=== PATIENT | female | born 1955 | race Caucasian/White ===

== ENCOUNTER 2017-11-28 10:29 | Outpatient (RCR) | payer OTHER, SELFPAY ==
[2017-11-07 10:36] LABS: Absolute Lymphocyte Count 0.82 X10^3/ul (0.83-4.51); Absolute Neutrophil Count 3.6 X10^3/uL (2.0-7.7); Basophil# 0.03 X10^3/uL; Basophil% 0.6 % (0-1); Eosinophil# 0.09 X10^3/uL; Eosinophils% 1.8 % (0-5); Lymphocyte # 0.82 X10^3/ul (4.0); Lymphocyte % 16.2 % (19-41); Mean Corp Hgb Conc 32.4 g/gl (32-36); Mean Corpuscular Hgb 29.5 pg (27.0-32.0); Mean Corpuscular Volume 91.2 fL (81-99); Mean Platelet Vol. 9.8 fl (6.2-12.0); Monocyte# 0.52 X10^3/uL; Monocyte% 10.3 % (0-10); Neutrophil # 3.59 X10^3/uL (2.7-7.7); Neutrophil % 70.7 % (47-70); Platelet Count 341 K/mm3 (150-450); RBC Distribution Width CV 15.3 % (11.6-14.6); RBC Distribution Width SD 51.1 fl (35.1-43.9); Red Blood Count 3.73 M/mm3 (4.2-5.4); White Blood Count 5.1 K/mm3 (4.4-11.0)
[2017-11-07 10:43] LABS: POSITIVE COUNT NO; POSITIVE DIFFERENTIAL NO; POSITIVE MORPHOLOGY NO
[2017-11-07 11:29] LABS: ALB/GLOB Ratio 0.9 RATIO (0.9-2.4); AST(SGOT) 25 U/L (15-37); Alanine Aminotransfer ALT/SGPT 26 U/L (12-78); Albumin, Serum 3.5 g/dL (3.4-5.0); Alkaline Phosphatase 146 U/L (45-117); Anion Gap 8 (5-15); BUN 19 mg/dL (7-18); BUN/Creat Ratio 23.2 RATIO (10-20); Calcium,Total 8.9 mg/dL (8.5-10.1); Chloride 101 mmol/L (98-107); Creatinine, Serum 0.82 mg/dL (0.55-1.02); EST Glomerular Filtration Rate 75 mL/min (>60); Est Glom Filt Rate - Afr Amer 91 mL/min (>60); Globulin 3.9 g/dL (2.2-4.2); Glucose 77 mg/dL (70-110); Potassium 3.5 mmol/L (3.5-5.1); Protein, Total 7.4 g/dL (6.4-8.2); Sodium Level 139 mmol/L (136-145)
[2017-11-08 11:02] LABS: Cancer Antigen 125 164.1 U/mL (0.0-38.1)
[2017-11-28 10:59] LABS: Differential Indicated MANUAL DIFF; Hematocrit 29.6 % (37-47); Hemoglobin 9.8 g/dl (12.0-15.0); Mean Corp Hgb Conc 33.1 g/gl (32-36); Mean Corpuscular Hgb 29.7 pg (27.0-32.0); Mean Corpuscular Volume 89.7 fL (81-99); Mean Platelet Vol. 10.5 fl (6.2-12.0); POSITIVE COUNT YES; POSITIVE DIFFERENTIAL YES; POSITIVE MORPHOLOGY YES; Platelet Count 72 K/mm3 (150-450); RBC Distribution Width CV 15.2 % (11.6-14.6); RBC Distribution Width SD 49.6 fl (35.1-43.9); White Blood Count 25.9 K/mm3 (4.4-11.0)
[2017-11-28 11:16] LABS: ALB/GLOB Ratio 0.9 RATIO (0.9-2.4); AST(SGOT) 51 U/L (15-37); Alanine Aminotransfer ALT/SGPT 95 U/L (13-56); Albumin, Serum 3.4 g/dL (3.2-5.0); Alkaline Phosphatase 257 U/L (45-117); Anion Gap 7 (5-15); BUN 15 mg/dL (7-18); BUN/Creat Ratio 17.9 RATIO (10-20); Calcium,Total 8.5 mg/dL (8.5-10.1); Chloride 107 mmol/L (98-107); Creatinine, Serum 0.84 mg/dL (0.55-1.02); EST Glomerular Filtration Rate 74 mL/min (>60); Est Glom Filt Rate - Afr Amer 89 mL/min (>60); Globulin 3.8 g/dL (2.2-4.2); Glucose 111 mg/dL (70-110); Protein, Total 7.2 g/dL (6.4-8.2); Sodium Level 140 mmol/L (136-145)
[2017-11-28 11:27] LABS: Eosinophil 1 % (0-5); Lymphocyte 12 % (19-41); Monocyte 4 % (0-10); Neutrophil-Segmented 81 % (47-70); Platelet Estimate MOD DEC (ADEQ); Promyelocyte 2 (0-0); Total Cells Counted 100 (MANUAL DIFF)
[2017-11-28 11:28] LABS: Red Cell Morphology NORM C+C NORMAL (NORM C&C)
[2017-11-28 11:29] LABS: Absolute Lymphocyte Count 3.11 X10^3/ul (0.83-4.51)
[2017-11-29 12:26] LABS: Cancer Antigen 125 92.1 U/mL (0.0-38.1)
[2017-11-29 13:12] LABS: Pathologist Review Reviewed
== END 2017-11-28 10:30 | disposition home or self-care (01) ==
LOC: LAB 10:29
PROVIDERS: Family Provider Family Medicine; PCP Family Medicine; Visit Provider Internal Medicine Hematology & Oncology
DX: C56.1 Malignant neoplasm of right ovary (principal); C56.2 Malignant neoplasm of left ovary
CPT/HCPCS: 36415; 80053; 85025; 86304

== ENCOUNTER → 2017-12-03 12:04 | Outpatient (CLI) | payer OTHER, SELFPAY ==
[2017-12-03 12:38] LABS: Differential Indicated MANUAL DIFF; Hematocrit 28.8 % (37-47); Hemoglobin 9.5 g/dl (12.0-15.0); Mean Corpuscular Hgb 29.8 pg (27.0-32.0); Mean Corpuscular Volume 90.3 fL (81-99); POSITIVE COUNT YES; POSITIVE DIFFERENTIAL NO; POSITIVE MORPHOLOGY YES; Platelet Count 285 K/mm3 (150-450); RBC Distribution Width CV 15.5 % (11.6-14.6); RBC Distribution Width SD 49.6 fl (35.1-43.9); Red Blood Count 3.19 M/mm3 (4.2-5.4); White Blood Count 6.4 K/mm3 (4.4-11.0)
[2017-12-03 13:07] LABS: Neutrophil-Band 14 % (0-5); Neutrophil-Segmented 41 % (47-70); Total Cells Counted 100 (MANUAL DIFF)
[2017-12-03 13:08] LABS: Eosinophil 3 % (0-5); Lymphocyte 36 % (19-41); Metamyelocyte 2 % (0-1); Monocyte 4 % (0-10); Platelet Estimate ADEQUATE (ADEQ)
[2017-12-03 13:09] LABS: Anisocytosis RARE; Atypical Lymphocyte RARE %; Red Cell Morphology N CHROM NORMAL (NORM C&C)
[2017-12-03 13:22] VITALS: BP 147/87; PULSE 94; RESP 16; TEMP 36.4; BMI 32.8
[2017-12-04 01:19] LABS: Absolute Neutrophil Count 3.5 X10^3/uL (2.0-7.7); Neutrophil # 3.52 X10^3/uL (2.7-7.7)
[2017-12-04 14:50] LABS: Pathologist Review Reviewed
== END ==
PROVIDERS: Family Provider Family Medicine; PCP Family Medicine; Visit Provider Internal Medicine Hematology & Oncology
DX: Z51.11 Encounter for antineoplastic chemotherapy (principal); C56.1 Malignant neoplasm of right ovary; C56.2 Malignant neoplasm of left ovary
CPT/HCPCS: 85025; 96367; 96413; J7050; A4216; J2405; J3490; J9351

== ENCOUNTER → 2017-12-04 12:27 | Outpatient (CLI) | payer OTHER, SELFPAY ==
[2017-12-03 13:22] VITALS: BP 147/87; BMI 32.8
[2017-12-04 12:45] VITALS: BP 125/79; PULSE 90; RESP 18; TEMP 35.8; O2SAT 97; BMI 32.3
== END ==
PROVIDERS: Family Provider Family Medicine; PCP Family Medicine; Visit Provider Internal Medicine Hematology & Oncology
DX: Z51.11 Encounter for antineoplastic chemotherapy (principal); C56.1 Malignant neoplasm of right ovary; C56.2 Malignant neoplasm of left ovary
CPT/HCPCS: 96367; 96413; A4216; J2405; J3490; J9351

== ENCOUNTER → 2017-12-05 12:56 | Outpatient (CLI) | payer OTHER, SELFPAY ==
[2017-12-04 12:45] VITALS: BP 125/79; BMI 32.3
[2017-12-05 13:34] VITALS: BP 146/79; PULSE 84; RESP 16; TEMP 36.3; O2SAT 99; BMI 32.3
== END ==
PROVIDERS: Family Provider Family Medicine; PCP Family Medicine; Visit Provider Internal Medicine Hematology & Oncology
DX: Z51.11 Encounter for antineoplastic chemotherapy (principal); C56.1 Malignant neoplasm of right ovary; C56.2 Malignant neoplasm of left ovary
CPT/HCPCS: 96367; 96413; A4216; J2405; J3490; J9351

== ENCOUNTER → 2017-12-06 13:19 | Outpatient (CLI) | payer OTHER, SELFPAY ==
[2017-12-05 13:34] VITALS: BP 146/79; BMI 32.3
[2017-12-06 13:53] VITALS: BP 115/71; PULSE 97; RESP 18; TEMP 36.1; O2SAT 98
[2017-12-06 14:03] LABS: Hematocrit 28.5 % (37-47); Hemoglobin 9.6 g/dl (12.0-15.0); Mean Corp Hgb Conc 33.7 g/gl (32-36); Mean Corpuscular Hgb 30.6 pg (27.0-32.0); Mean Corpuscular Volume 90.8 fL (81-99); Mean Platelet Vol. 9.6 fl (6.2-12.0); Platelet Count 440 K/mm3 (150-450); RBC Distribution Width CV 15.2 % (11.6-14.6); RBC Distribution Width SD 48.2 fl (35.1-43.9); Red Blood Count 3.14 M/mm3 (4.2-5.4); Scan Indicated on CBC? Y/N NO; White Blood Count 3.4 K/mm3 (4.4-11.0)
--- NOTE | 2017-12-06 15:50 | CT_ITS ---
STUDY: CTA CHEST REASON FOR EXAM: Female, 62 years old. Increasing shortness of breath. RADIATION DOSAGE (If Supplied By Facility): CTDIvol = ( 18.58 ) mGy, DLP = ( 504.8 ) mGycm TECHNIQUE: The examination was performed with the intravenous administration of 100 ml of Isovue 370 contrast material. Post-processing of the angiographic images was performed, with multiplanar reformation and 3D reconstruction. Individualized dose optimization techniques were used for this CT. COMPARISON: November 06, 2017. FINDINGS: Normal enhancement of the main pulmonary artery and right and left pulmonary arteries. Normal enhancement of the bilateral peripheral pulmonary arteries. There is no demonstrated pulmonary embolism. There is atherosclerotic calcification of the aortic arch . There is no demonstrated aortic dissection. There are calcifications of the coronary arteries. Normal mediastinum. Normal hilar regions. Normal visualized trachea and bronchi. The lungs are well expanded. Normal pulmonary parenchyma. Normal pleura. There is a stable peripherally calcified low-attenuation focus within the medial right breast. There is a left-sided portacatheter with its tip within the superior vena cava. There are degenerative changes of thoracic spine. Normal visualized upper abdomen. CT/CTA Chest W/WO Contrast IMPRESSION: No demonstrated pulmonary embolism or arterial dissection. Atherosclerosis. Electronically Signed: Maura Ordaz MD at 16:35 EST Tel , Service support ,
== END ==
PROVIDERS: Family Provider Family Medicine; PCP Family Medicine; Visit Provider Internal Medicine Hematology & Oncology
DX: Z51.11 Encounter for antineoplastic chemotherapy (principal); C56.1 Malignant neoplasm of right ovary; R06.00 Dyspnea, unspecified; R06.89 Other abnormalities of breathing
CPT/HCPCS: 36591; 71275; 85027; 96367; 96413; J7050; Q9967; A4216; J2405; J3490; J9351

== ENCOUNTER → 2017-12-07 13:29 | Outpatient (CLI) | payer OTHER, SELFPAY ==
[2017-12-05 13:34] VITALS: BMI 32.3
[2017-12-06 13:53] VITALS: BP 115/71
[2017-12-07 14:08] VITALS: BP 107/71; PULSE 96; RESP 16; TEMP 35.9; O2SAT 96; BMI 32.3
== END ==
PROVIDERS: Family Provider Family Medicine; PCP Family Medicine; Visit Provider Internal Medicine Hematology & Oncology
DX: Z51.11 Encounter for antineoplastic chemotherapy (principal); C56.1 Malignant neoplasm of right ovary; C56.2 Malignant neoplasm of left ovary
CPT/HCPCS: 96367; 96413; J7050; A4216; J2405; J3490; J9351

== ENCOUNTER 2017-12-19 10:47 | Outpatient (RCR) | payer OTHER, SELFPAY ==
[2017-12-13 12:37] LABS: Absolute Lymphocyte Count 1.23 X10^3/ul (0.83-4.51); Absolute Neutrophil Count 2.8 X10^3/uL (2.0-7.7); Basophil# 0.01 X10^3/uL; Basophil% 0.2 % (0-1); Eosinophil# 0.01 X10^3/uL; Eosinophils% 0.2 % (0-5); Hematocrit 25.5 % (37-47); Hemoglobin 8.5 g/dl (12.0-15.0); Lymphocyte # 1.23 X10^3/ul (4.0); Lymphocyte % 27.7 % (19-41); Mean Corp Hgb Conc 33.3 g/gl (32-36); Mean Corpuscular Hgb 30.7 pg (27.0-32.0); Mean Corpuscular Volume 92.1 fL (81-99); Mean Platelet Vol. 10.9 fl (6.2-12.0); Monocyte# 0.36 X10^3/uL; Monocyte% 8.1 % (0-10); Neutrophil # 2.82 X10^3/uL (2.7-7.7); Neutrophil % 63.6 % (47-70); Platelet Count 143 K/mm3 (150-450); RBC Distribution Width CV 14.9 % (11.6-14.6); RBC Distribution Width SD 48.2 fl (35.1-43.9); Red Blood Count 2.77 M/mm3 (4.2-5.4); White Blood Count 4.4 K/mm3 (4.4-11.0)
[2017-12-13 12:58] LABS: Atypical Lymphocyte RARE %; Differential Indicated SCAN CRITERIA MET; Hypochromasia 1+; POSITIVE COUNT NO; POSITIVE DIFFERENTIAL NO; POSITIVE MORPHOLOGY YES; Platelet Estimate ADEQUATE (ADEQ); Platelet Morphology LARGE
[2017-12-19 11:12] LABS: Hematocrit 24.6 % (37-47); Hemoglobin 8.2 g/dl (12.0-15.0); Mean Corp Hgb Conc 33.3 g/gl (32-36); Mean Corpuscular Hgb 30.8 pg (27.0-32.0); Mean Corpuscular Volume 92.5 fL (81-99); Mean Platelet Vol. 9.3 fl (6.2-12.0); Platelet Count 121 K/mm3 (150-450); RBC Distribution Width CV 17.2 % (11.6-14.6); RBC Distribution Width SD 55.5 fl (35.1-43.9); Red Blood Count 2.66 M/mm3 (4.2-5.4); White Blood Count 79.4 K/mm3 (4.4-11.0)
[2017-12-19 11:13] LABS: Absolute Nucleated RBC Count 0.21 10^3/uL (0-5); NRBC Flagged by Analyzer 0.3 % (0-5)
[2017-12-19 11:16] LABS: Differential Indicated MANUAL DIFF; POSITIVE COUNT YES; POSITIVE DIFFERENTIAL YES; POSITIVE MORPHOLOGY YES
[2017-12-19 11:20] LABS: ALB/GLOB Ratio 0.9 RATIO (0.9-2.4); AST(SGOT) 20 U/L (15-37); Alanine Aminotransfer ALT/SGPT 36 U/L (13-56); Albumin, Serum 3.5 g/dL (3.2-5.0); Alkaline Phosphatase 286 U/L (45-117); Anion Gap 10 (5-15); BUN 15 mg/dL (7-18); Calcium,Total 8.7 mg/dL (8.5-10.1); Chloride 105 mmol/L (98-107); Creatinine, Serum 0.88 mg/dL (0.55-1.02); EST Glomerular Filtration Rate 69 mL/min (>60); Est Glom Filt Rate - Afr Amer 84 mL/min (>60); Glucose 154 mg/dL (74-106); Potassium 3.7 mmol/L (3.5-5.1); Protein, Total 7.5 g/dL (6.4-8.2); Sodium Level 141 mmol/L (136-145)
[2017-12-19 11:37] LABS: Eosinophil 1 % (0-5); Lymphocyte 2 % (19-41); Metamyelocyte 2 % (0-1); Monocyte 3 % (0-10); Myelocyte 3 (0-0); Neutrophil-Band 1 % (0-5); Neutrophil-Segmented 88 % (47-70); Total Cells Counted 100 (MANUAL DIFF)
[2017-12-19 11:38] LABS: Hypochromasia 2+; Platelet Estimate ADEQUATE (ADEQ); Toxic Granulation 1+
[2017-12-19 11:41] LABS: Absolute Lymphocyte Count 1.58 X10^3/ul (0.83-4.51); Absolute Neutrophil Count 70.7 X10^3/uL (2.0-7.7)
[2017-12-20 12:45] LABS: Pathologist Review Reviewed
[2017-12-20 17:04] LABS: Cancer Antigen 125 34.6 U/mL (0.0-38.1)
== END 2017-12-19 11:15 | disposition home or self-care (01) ==
LOC: LAB 10:47
PROVIDERS: Family Provider Family Medicine; PCP Family Medicine; Visit Provider Internal Medicine Hematology & Oncology
DX: C56.1 Malignant neoplasm of right ovary (principal); C56.2 Malignant neoplasm of left ovary
CPT/HCPCS: 36415; 80053; 85025; 86304

== ENCOUNTER → 2017-12-24 12:47 | Outpatient (CLI) | payer OTHER, SELFPAY ==
[2017-12-24 13:17] LABS: Hematocrit 24.5 % (37-47); Hemoglobin 8.1 g/dl (12.0-15.0); Mean Corp Hgb Conc 33.1 g/gl (32-36); Mean Corpuscular Hgb 31.6 pg (27.0-32.0); Mean Corpuscular Volume 95.7 fL (81-99); Mean Platelet Vol. 9.4 fl (6.2-12.0); Platelet Count 397 K/mm3 (150-450); RBC Distribution Width CV 18.2 % (11.6-14.6); RBC Distribution Width SD 55.6 fl (35.1-43.9); Red Blood Count 2.56 M/mm3 (4.2-5.4); White Blood Count 8.5 K/mm3 (4.4-11.0)
[2017-12-24 13:19] VITALS: BP 132/74; PULSE 91; RESP 18; TEMP 36.1; O2SAT 97; BMI 32.4
[2017-12-24 13:19] LABS: Differential Indicated MANUAL DIFF; POSITIVE COUNT YES; POSITIVE DIFFERENTIAL NO; POSITIVE MORPHOLOGY YES
[2017-12-24 13:42] LABS: Eosinophil 2 % (0-5); Lymphocyte 11 % (19-41); Metamyelocyte 2 % (0-1); Monocyte 10 % (0-10); Myelocyte 2 (0-0); Neutrophil-Band 3 % (0-5); Neutrophil-Segmented 69 % (47-70); Promyelocyte 1 (0-0); Total Cells Counted 100 (MANUAL DIFF)
[2017-12-24 13:43] LABS: Hypochromasia 1+; Platelet Estimate ADEQUATE (ADEQ)
[2017-12-24 13:44] LABS: Absolute Lymphocyte Count 0.93 X10^3/ul (0.83-4.51); Absolute Neutrophil Count 6.1 X10^3/uL (2.0-7.7)
[2017-12-26 15:02] LABS: Pathologist Review Reviewed
== END ==
PROVIDERS: Family Provider Family Medicine; PCP Family Medicine; Visit Provider Internal Medicine Hematology & Oncology
DX: Z51.11 Encounter for antineoplastic chemotherapy (principal); C56.1 Malignant neoplasm of right ovary; C56.2 Malignant neoplasm of left ovary
CPT/HCPCS: 36591; 85025; 96367; 96413; J7040; A4216; J2405; J3490; J9351

== ENCOUNTER → 2017-12-25 13:03 | Outpatient (CLI) | payer OTHER, SELFPAY ==
[2017-12-25 13:33] VITALS: BP 135/76; PULSE 100; RESP 16; TEMP 36.4; O2SAT 98; BMI 32.4
== END ==
PROVIDERS: Family Provider Family Medicine; PCP Family Medicine; Visit Provider Internal Medicine Hematology & Oncology
DX: Z51.11 Encounter for antineoplastic chemotherapy (principal); C56.1 Malignant neoplasm of right ovary; C56.2 Malignant neoplasm of left ovary
CPT/HCPCS: 96367; 96413; J7050; A4216; J2405; J3490; J9351

== ENCOUNTER → 2017-12-26 12:57 | Outpatient (CLI) | payer OTHER, SELFPAY ==
[2017-12-26 13:18] VITALS: BP 130/77; PULSE 89; RESP 16; TEMP 36.6; O2SAT 99; BMI 32.1
== END ==
PROVIDERS: Family Provider Family Medicine; PCP Family Medicine; Visit Provider Internal Medicine Hematology & Oncology
DX: Z51.11 Encounter for antineoplastic chemotherapy (principal); C56.1 Malignant neoplasm of right ovary; C56.2 Malignant neoplasm of left ovary
CPT/HCPCS: 96367; 96413; J7050; A4216; J2405; J3490; J9351

== ENCOUNTER → 2017-12-27 12:56 | Outpatient (CLI) | payer OTHER, SELFPAY ==
[2017-12-27 13:12] VITALS: BP 111/67; PULSE 98; RESP 18; TEMP 35.7; O2SAT 99; BMI 32.1
== END ==
PROVIDERS: Family Provider Family Medicine; PCP Family Medicine; Visit Provider Internal Medicine Hematology & Oncology
DX: Z51.11 Encounter for antineoplastic chemotherapy (principal); C56.1 Malignant neoplasm of right ovary; C56.2 Malignant neoplasm of left ovary
CPT/HCPCS: 96367; 96413; J7050; A4216; J2405; J3490; J9351

== ENCOUNTER → 2017-12-28 12:43 | Outpatient (CLI) | payer OTHER, SELFPAY ==
[2017-12-28 13:12] VITALS: BP 120/67; PULSE 102; RESP 18; TEMP 36.5; O2SAT 100; BMI 33.5
== END ==
PROVIDERS: Family Provider Family Medicine; PCP Family Medicine; Visit Provider Internal Medicine Hematology & Oncology
DX: Z51.11 Encounter for antineoplastic chemotherapy (principal); C56.1 Malignant neoplasm of right ovary; C56.2 Malignant neoplasm of left ovary
CPT/HCPCS: 96367; 96413; J7050; A4216; J2405; J3490; J9351

== ENCOUNTER → 2018-01-03 09:43 | Outpatient (CLI) | payer OTHER, SELFPAY ==
[2018-01-03] VITALS (7 sets, daily range): BP systolic 108–138; BP diastolic 60–81; PULSE 87–99; RESP 16–18; TEMP 35.8–37.1; O2SAT 99–100
== END ==
PROVIDERS: Family Provider Family Medicine; PCP Family Medicine; Visit Provider Internal Medicine Hematology & Oncology
DX: D64.9 Anemia, unspecified (principal)
CPT/HCPCS: 36430; 86850; 86900; 86920; 86922; J7040; P9016; A4216

== ENCOUNTER 2018-01-09 10:05 | Outpatient (RCR) | payer OTHER, SELFPAY ==
[2018-01-02 11:39] LABS: Absolute Lymphocyte Count 0.72 X10^3/ul (0.83-4.51); Absolute Neutrophil Count 0.8 X10^3/uL (2.0-7.7); Hematocrit 20.4 % (37-47); Hemoglobin 6.9 g/dl (12.0-15.0); Lymphocyte # 0.72 X10^3/ul (4.0); Lymphocyte % 41.6 % (19-41); Mean Corp Hgb Conc 33.8 g/gl (32-36); Mean Corpuscular Hgb 31.2 pg (27.0-32.0); Mean Corpuscular Volume 92.3 fL (81-99); Mean Platelet Vol. 8.9 fl (6.2-12.0); Monocyte# 0.18 X10^3/uL; Monocyte% 10.4 % (0-10); Neutrophil # 0.81 X10^3/uL (2.7-7.7); Neutrophil % 46.8 % (47-70); Platelet Count 127 K/mm3 (150-450); RBC Distribution Width CV 17.6 % (11.6-14.6); RBC Distribution Width SD 59.8 fl (35.1-43.9); Red Blood Count 2.21 M/mm3 (4.2-5.4); White Blood Count 1.7 K/mm3 (4.4-11.0)
[2018-01-02 11:40] LABS: Differential Indicated SCAN CRITERIA MET; POSITIVE COUNT NO; POSITIVE DIFFERENTIAL YES; POSITIVE MORPHOLOGY NO
[2018-01-02 11:54] LABS: Anisocytosis 1+; Hypochromasia 1+; Platelet Estimate ADEQUATE (ADEQ)
[2018-01-02 11:55] LABS: Microcytosis RARE
[2018-01-09 10:22] LABS: Hematocrit 29.3 % (37-47); Hemoglobin 9.5 g/dl (12.0-15.0); Mean Corp Hgb Conc 32.4 g/gl (32-36); Mean Corpuscular Hgb 30.5 pg (27.0-32.0); Mean Corpuscular Volume 94.2 fL (81-99); Mean Platelet Vol. 9.8 fl (6.2-12.0); Platelet Count 86 K/mm3 (150-450); RBC Distribution Width CV 18.8 % (11.6-14.6); RBC Distribution Width SD 61.1 fl (35.1-43.9); Red Blood Count 3.11 M/mm3 (4.2-5.4)
[2018-01-09 10:28] LABS: Differential Indicated MANUAL DIFF; POSITIVE COUNT YES; POSITIVE DIFFERENTIAL YES; POSITIVE MORPHOLOGY YES; White Blood Count 34.6 K/mm3 (4.4-11.0)
[2018-01-09 10:38] LABS: ALB/GLOB Ratio 0.9 RATIO (0.9-2.4); AST(SGOT) 28 U/L (15-37); Alanine Aminotransfer ALT/SGPT 54 U/L (13-56); Albumin, Serum 3.6 g/dL (3.2-5.0); Alkaline Phosphatase 265 U/L (45-117); Anion Gap 6 (5-15); BUN 18 mg/dL (7-18); BUN/Creat Ratio 17.6 RATIO (10-20); Calcium,Total 8.6 mg/dL (8.5-10.1); Chloride 103 mmol/L (98-107); Creatinine, Serum 1.02 mg/dL (0.55-1.02); EST Glomerular Filtration Rate 59 mL/min (>60); Est Glom Filt Rate - Afr Amer 71 mL/min (>60); Globulin 3.8 g/dL (2.2-4.2); Glucose 109 mg/dL (74-106); Potassium 3.7 mmol/L (3.5-5.1); Protein, Total 7.4 g/dL (6.4-8.2); Sodium Level 141 mmol/L (136-145)
[2018-01-09 10:48] LABS: Lymphocyte 8 % (19-41); Metamyelocyte 4 % (0-1); Monocyte 5 % (0-10); Myelocyte 1 (0-0); Neutrophil-Band 1 % (0-5); Neutrophil-Segmented 80 % (47-70); Promyelocyte 1 (0-0); Total Cells Counted 100 (MANUAL DIFF)
[2018-01-09 10:50] LABS: Anisocytosis RARE; Hypochromasia 1+; Platelet Estimate MOD DEC (ADEQ); Polychromasia RARE
[2018-01-09 10:51] LABS: Absolute Lymphocyte Count 2.77 X10^3/ul (0.83-4.51)
[2018-01-10 12:09] LABS: Cancer Antigen 125 25.2 U/mL (0.0-38.1)
[2018-01-10 14:54] LABS: Pathologist Review Reviewed
== END 2018-01-09 11:00 | disposition home or self-care (01) ==
LOC: LAB 10:05
PROVIDERS: Family Provider Family Medicine; PCP Family Medicine; Visit Provider Internal Medicine Hematology & Oncology
DX: C56.1 Malignant neoplasm of right ovary (principal); C56.2 Malignant neoplasm of left ovary; D64.9 Anemia, unspecified
CPT/HCPCS: 36415; 80053; 85025; 86304

== ENCOUNTER → 2018-01-14 11:29 | Outpatient (CLI) | payer OTHER, SELFPAY ==
[2018-01-14 11:46] VITALS: BP 134/75; PULSE 90; RESP 18; TEMP 36.6; O2SAT 98; BMI 32.7
[2018-01-14 11:50] LABS: Absolute Lymphocyte Count 1.47 X10^3/ul (0.83-4.51); Absolute Neutrophil Count 1.9 X10^3/uL (2.0-7.7); Basophil# 0.02 X10^3/uL; Basophil% 0.5 % (0-1); Eosinophil# 0.09 X10^3/uL; Eosinophils% 2.4 % (0-5); Hematocrit 29.6 % (37-47); Hemoglobin 9.6 g/dl (12.0-15.0); Lymphocyte # 1.47 X10^3/ul (4.0); Lymphocyte % 38.7 % (19-41); Mean Corp Hgb Conc 32.4 g/gl (32-36); Mean Corpuscular Hgb 30.7 pg (27.0-32.0); Mean Corpuscular Volume 94.6 fL (81-99); Mean Platelet Vol. 9.5 fl (6.2-12.0); Monocyte# 0.32 X10^3/uL; Monocyte% 8.4 % (0-10); Neutrophil # 1.87 X10^3/uL (2.7-7.7); Neutrophil % 49.2 % (47-70); Platelet Count 353 K/mm3 (150-450); RBC Distribution Width CV 18.3 % (11.6-14.6); RBC Distribution Width SD 61.8 fl (35.1-43.9); Red Blood Count 3.13 M/mm3 (4.2-5.4); White Blood Count 3.8 K/mm3 (4.4-11.0)
[2018-01-14 11:51] LABS: POSITIVE COUNT NO; POSITIVE DIFFERENTIAL NO; POSITIVE MORPHOLOGY NO
== END ==
PROVIDERS: Family Provider Family Medicine; PCP Family Medicine; Visit Provider Internal Medicine Hematology & Oncology
DX: Z51.11 Encounter for antineoplastic chemotherapy (principal); C56.1 Malignant neoplasm of right ovary; C56.2 Malignant neoplasm of left ovary
CPT/HCPCS: 85025; 96367; 96413; J7040; A4216; J2405; J3490; J9351

== ENCOUNTER → 2018-01-15 13:14 | Outpatient (CLI) | payer OTHER, SELFPAY ==
[2018-01-15 13:30] VITALS: BP 129/74; PULSE 87; RESP 16; TEMP 36.4; O2SAT 100
== END ==
PROVIDERS: Family Provider Family Medicine; PCP Family Medicine; Visit Provider Internal Medicine Hematology & Oncology
DX: Z51.11 Encounter for antineoplastic chemotherapy (principal); C56.1 Malignant neoplasm of right ovary; C56.2 Malignant neoplasm of left ovary
CPT/HCPCS: 96367; 96413; J7050; A4216; J2405; J3490; J9351

== ENCOUNTER → 2018-01-16 12:57 | Outpatient (CLI) | payer OTHER, SELFPAY ==
[2018-01-16 13:18] VITALS: BP 115/65; PULSE 91; RESP 18; TEMP 36.2; O2SAT 98
== END ==
PROVIDERS: Family Provider Family Medicine; PCP Family Medicine; Visit Provider Internal Medicine Hematology & Oncology
DX: Z51.11 Encounter for antineoplastic chemotherapy (principal); C56.1 Malignant neoplasm of right ovary; C56.2 Malignant neoplasm of left ovary
CPT/HCPCS: 96367; 96413; J7050; A4216; J2405; J3490; J9351

== ENCOUNTER → 2018-01-17 13:15 | Outpatient (CLI) | payer OTHER, SELFPAY ==
[2018-01-17 13:25] VITALS: BP 122/74; PULSE 87; RESP 18; TEMP 36.4; O2SAT 97; BMI 32.5
== END ==
PROVIDERS: Family Provider Family Medicine; PCP Family Medicine; Visit Provider Internal Medicine Hematology & Oncology
DX: Z51.11 Encounter for antineoplastic chemotherapy (principal); C56.1 Malignant neoplasm of right ovary; C56.2 Malignant neoplasm of left ovary
CPT/HCPCS: 96367; 96413; J7050; A4216; J2405; J3490; J9351

== ENCOUNTER → 2018-01-18 12:54 | Outpatient (CLI) | payer OTHER, SELFPAY ==
[2018-01-18 13:14] VITALS: BP 99/63; PULSE 93; RESP 16; TEMP 36.5; O2SAT 99; BMI 33.5
== END ==
PROVIDERS: Family Provider Family Medicine; PCP Family Medicine; Visit Provider Internal Medicine Hematology & Oncology
DX: Z51.11 Encounter for antineoplastic chemotherapy (principal); C56.1 Malignant neoplasm of right ovary; C56.2 Malignant neoplasm of left ovary
CPT/HCPCS: 96376; 96413; J7050; A4216; J2405; J3490; J9351

== ENCOUNTER → 2018-02-04 13:27 | Outpatient (CLI) | payer OTHER, SELFPAY ==
[2018-02-04 13:50] VITALS: BP 149/91; PULSE 95; RESP 20; TEMP 35.6; O2SAT 100; BMI 32.3
[2018-02-04 13:59] LABS: Hematocrit 26.6 % (37-47); Hemoglobin 8.6 g/dl (12.0-15.0); Mean Corp Hgb Conc 32.3 g/gl (32-36); Mean Corpuscular Hgb 31.6 pg (27.0-32.0); Mean Corpuscular Volume 97.8 fL (81-99); Mean Platelet Vol. 9.4 fl (6.2-12.0); Platelet Count 510 K/mm3 (150-450); RBC Distribution Width CV 18.7 % (11.6-14.6); RBC Distribution Width SD 63.8 fl (35.1-43.9); Red Blood Count 2.72 M/mm3 (4.2-5.4); White Blood Count 4.1 K/mm3 (4.4-11.0)
[2018-02-04 14:00] LABS: Scan Indicated on CBC? Y/N NO
== END ==
PROVIDERS: Family Provider Family Medicine; PCP Family Medicine; Visit Provider Internal Medicine Hematology & Oncology
DX: Z51.11 Encounter for antineoplastic chemotherapy (principal); C56.9 Malignant neoplasm of unspecified ovary
CPT/HCPCS: 85027; 96367; 96413; J7050; A4216; J2405; J3490; J9351

== ENCOUNTER → 2018-02-05 13:29 | Outpatient (CLI) | payer OTHER, SELFPAY ==
[2018-02-05 13:33] VITALS: BP 131/62; PULSE 95; RESP 16; TEMP 36.4; O2SAT 100; BMI 327.9
== END ==
PROVIDERS: Family Provider Family Medicine; PCP Family Medicine; Visit Provider Internal Medicine Hematology & Oncology
DX: C56.9 Malignant neoplasm of unspecified ovary (principal)
CPT/HCPCS: 96365; 96367; J7050; A4216; J2405; J3490; J9351

== ENCOUNTER → 2018-02-06 13:16 | Outpatient (CLI) | payer OTHER, SELFPAY ==
[2018-02-06 13:45] VITALS: BP 121/67; PULSE 84; RESP 16; TEMP 36.4; O2SAT 98; BMI 32.8
== END ==
PROVIDERS: Family Provider Family Medicine; PCP Family Medicine; Visit Provider Internal Medicine Hematology & Oncology
DX: Z51.11 Encounter for antineoplastic chemotherapy (principal); C56.9 Malignant neoplasm of unspecified ovary
CPT/HCPCS: 96367; 96413; J7050; A4216; J2405; J3490; J9351

== ENCOUNTER → 2018-02-07 13:26 | Outpatient (CLI) | payer OTHER, SELFPAY ==
[2018-02-07 13:48] VITALS: BP 119/67; PULSE 100; RESP 16; TEMP 36.9; O2SAT 100; BMI 32.3
== END ==
PROVIDERS: Family Provider Family Medicine; PCP Family Medicine; Visit Provider Internal Medicine Hematology & Oncology
DX: Z51.11 Encounter for antineoplastic chemotherapy (principal); C56.9 Malignant neoplasm of unspecified ovary
CPT/HCPCS: 96375; 96413; J7050; A4216; J2405; J3490; J9351

== ENCOUNTER → 2018-02-08 11:45 | Outpatient (CLI) | payer OTHER, SELFPAY ==
[2018-02-08 11:51] VITALS: BP 114/77; PULSE 99; RESP 18; TEMP 35.9; O2SAT 99; BMI 31.8
== END ==
PROVIDERS: Family Provider Family Medicine; PCP Family Medicine; Visit Provider Internal Medicine Hematology & Oncology
DX: Z51.11 Encounter for antineoplastic chemotherapy (principal); C56.9 Malignant neoplasm of unspecified ovary
CPT/HCPCS: 96367; 96413; J7050; A4216; J2405; J3490; J9351

== ENCOUNTER 2018-02-11 11:50 | Outpatient (RCR) | payer OTHER, SELFPAY ==
[2018-01-30 13:01] LABS: Hematocrit 25.3 % (37-47); Hemoglobin 8.4 g/dl (12.0-15.0); Mean Corp Hgb Conc 33.2 g/gl (32-36); Mean Corpuscular Hgb 31.6 pg (27.0-32.0); Mean Corpuscular Volume 95.1 fL (81-99); Mean Platelet Vol. 9.7 fl (6.2-12.0); Platelet Count 95 K/mm3 (150-450); RBC Distribution Width CV 17.4 % (11.6-14.6); RBC Distribution Width SD 57.2 fl (35.1-43.9); Red Blood Count 2.66 M/mm3 (4.2-5.4); White Blood Count 3.5 K/mm3 (4.4-11.0)
[2018-01-30 13:02] LABS: Differential Indicated MANUAL DIFF; POSITIVE COUNT YES; POSITIVE DIFFERENTIAL NO; POSITIVE MORPHOLOGY YES
[2018-01-30 13:30] LABS: AST(SGOT) 16 U/L (15-37); Alanine Aminotransfer ALT/SGPT 35 U/L (13-56); Albumin, Serum 3.8 g/dL (3.2-5.0); Alkaline Phosphatase 151 U/L (45-117); Anion Gap 7 (5-15); BUN 15 mg/dL (7-18); BUN/Creat Ratio 19.7 RATIO (10-20); Calcium,Total 8.6 mg/dL (8.5-10.1); Chloride 108 mmol/L (98-107); Creatinine, Serum 0.76 mg/dL (0.55-1.02); EST Glomerular Filtration Rate 82 mL/min (>60); Est Glom Filt Rate - Afr Amer 99 mL/min (>60); Globulin 3.8 g/dL (2.2-4.2); Glucose 93 mg/dL (74-106); Potassium 3.6 mmol/L (3.5-5.1); Protein, Total 7.6 g/dL (6.4-8.2); Sodium Level 142 mmol/L (136-145)
[2018-01-30 13:32] LABS: Blast 1 % (0-0); Eosinophil 2 % (0-5); Lymphocyte 28 % (19-41); Metamyelocyte 2 % (0-1); Monocyte 6 % (0-10); Neutrophil-Band 1 % (0-5); Neutrophil-Segmented 60 % (47-70); Nucleated Red Bld Cells,Manual 1 % (0-5); Total Cells Counted 100 (MANUAL DIFF)
[2018-01-30 13:33] LABS: Hypochromasia 2+; Platelet Estimate MOD DEC (ADEQ); Polychromasia 1+
[2018-01-30 13:34] LABS: Absolute Lymphocyte Count 0.97 X10^3/ul (0.83-4.51)
[2018-01-30 13:35] LABS: Absolute Neutrophil Count 2.1 X10^3/uL (2.0-7.7)
[2018-01-31 11:46] LABS: Pathologist Review Reviewed
[2018-02-11 12:32] LABS: Hematocrit 24.7 % (37-47); Hemoglobin 8.1 g/dl (12.0-15.0); Mean Corp Hgb Conc 32.8 g/gl (32-36); Mean Corpuscular Hgb 32.4 pg (27.0-32.0); Mean Corpuscular Volume 98.8 fL (81-99); Mean Platelet Vol. 9.5 fl (6.2-12.0); Platelet Count 441 K/mm3 (150-450); RBC Distribution Width CV 16.8 % (11.6-14.6); RBC Distribution Width SD 57.9 fl (35.1-43.9); White Blood Count 4.4 K/mm3 (4.4-11.0)
[2018-02-11 12:33] LABS: Differential Indicated MANUAL DIFF; POSITIVE COUNT YES; POSITIVE DIFFERENTIAL NO; POSITIVE MORPHOLOGY YES
[2018-02-11 12:54] LABS: Eosinophil 1 % (0-5); Lymphocyte 23 % (19-41); Monocyte 4 % (0-10); Neutrophil-Band 1 % (0-5); Neutrophil-Segmented 71 % (47-70); Total Cells Counted 100 (MANUAL DIFF)
[2018-02-11 12:59] LABS: Absolute Lymphocyte Count 1.01 X10^3/ul (0.83-4.51); Absolute Neutrophil Count 3.2 X10^3/uL (2.0-7.7)
[2018-02-12 09:57] LABS: Pathologist Review Reviewed
== END 2018-02-11 12:00 | disposition home or self-care (01) ==
LOC: LAB 11:50
PROVIDERS: Family Provider Family Medicine; PCP Family Medicine; Visit Provider Internal Medicine Hematology & Oncology
DX: C56.1 Malignant neoplasm of right ovary (principal); C56.2 Malignant neoplasm of left ovary; D64.9 Anemia, unspecified
CPT/HCPCS: 36415; 80053; 85025; 86304

== ENCOUNTER → 2018-02-13 08:05 | Outpatient (CLI) | payer OTHER, SELFPAY ==
[2018-02-13] VITALS (7 sets, daily range): BP systolic 106–145; BP diastolic 62–83; PULSE 78–91; RESP 14–16; TEMP 36.1–37; O2SAT 94–99; BMI 32.3
== END ==
PROVIDERS: Family Provider Family Medicine; PCP Family Medicine; Visit Provider Internal Medicine Hematology & Oncology
DX: Z51.89 Encounter for other specified aftercare (principal)
CPT/HCPCS: 36415; 36430; 86850; 86900; 86920; 86922; J7040; P9016; A4216

== ENCOUNTER → 2018-03-04 12:53 | Outpatient (CLI) | payer OTHER, SELFPAY ==
[2018-03-04] MEDS: Alteplase 2 MG/2 ML Vial IV (13:44)
[2018-03-04 13:47] VITALS: BP 155/94; PULSE 76; RESP 16; TEMP 36; O2SAT 97
[2018-03-04 13:53] LABS: Hematocrit 32.2 % (37-47); Hemoglobin 10.7 g/dl (12.0-15.0); Mean Corp Hgb Conc 33.2 g/gl (32-36); Mean Corpuscular Hgb 32.6 pg (27.0-32.0); Mean Corpuscular Volume 98.2 fL (81-99); Mean Platelet Vol. 8.9 fl (6.2-12.0); Platelet Count 511 K/mm3 (150-450); Red Blood Count 3.28 M/mm3 (4.2-5.4); White Blood Count 6.1 K/mm3 (4.4-11.0)
[2018-03-04 13:54] LABS: Scan Indicated on CBC? Y/N NO
== END ==
PROVIDERS: Family Provider Family Medicine; PCP Family Medicine; Visit Provider Internal Medicine Hematology & Oncology
DX: Z51.11 Encounter for antineoplastic chemotherapy (principal); C56.9 Malignant neoplasm of unspecified ovary
CPT/HCPCS: 36593; 85027; 96367; 96375; 96413; J2997; J7050; A4216; J2405; J3490; J9351

== ENCOUNTER → 2018-03-05 12:57 | Outpatient (CLI) | payer OTHER, SELFPAY ==
[2018-03-05 13:05] VITALS: BP 134/75; PULSE 88; RESP 14; TEMP 36.3; O2SAT 99; BMI 32.8
== END ==
PROVIDERS: Family Provider Family Medicine; PCP Family Medicine; Visit Provider Internal Medicine Hematology & Oncology
DX: Z51.11 Encounter for antineoplastic chemotherapy (principal); C56.9 Malignant neoplasm of unspecified ovary
CPT/HCPCS: 96367; 96413; J7050; A4216; J2405; J3490; J9351

== ENCOUNTER → 2018-03-06 12:59 | Outpatient (CLI) | payer OTHER, SELFPAY ==
[2018-03-06 13:05] VITALS: BP 141/82; PULSE 81; RESP 16; TEMP 36.4; O2SAT 97; BMI 32.8
== END ==
PROVIDERS: Family Provider Family Medicine; PCP Family Medicine; Visit Provider Internal Medicine Hematology & Oncology
DX: Z51.11 Encounter for antineoplastic chemotherapy (principal); C56.9 Malignant neoplasm of unspecified ovary
CPT/HCPCS: 96367; 96413; J7050; A4216; J2405; J3490; J9351

== ENCOUNTER → 2018-03-07 13:04 | Outpatient (CLI) | payer OTHER, SELFPAY ==
[2018-03-07 13:12] VITALS: BP 132/75; PULSE 89; RESP 18; TEMP 36.2; O2SAT 99; BMI 32.1
== END ==
PROVIDERS: Family Provider Family Medicine; PCP Family Medicine; Visit Provider Internal Medicine Hematology & Oncology
DX: Z51.11 Encounter for antineoplastic chemotherapy (principal); C56.9 Malignant neoplasm of unspecified ovary
CPT/HCPCS: 96367; 96413; J7050; A4216; J2405; J3490; J9351

== ENCOUNTER → 2018-03-08 11:23 | Outpatient (CLI) | payer OTHER, SELFPAY ==
[2018-03-08 11:57] VITALS: BP 122/75; PULSE 90; RESP 16; TEMP 36.2; O2SAT 100; BMI 32.1
== END ==
PROVIDERS: Family Provider Family Medicine; PCP Family Medicine; Visit Provider Internal Medicine Hematology & Oncology
DX: Z51.11 Encounter for antineoplastic chemotherapy (principal); C56.9 Malignant neoplasm of unspecified ovary
CPT/HCPCS: 96367; 96413; J7040; A4216; J2405; J3490; J9351

== ENCOUNTER 2018-03-27 13:31 | Outpatient (RCR) | payer OTHER, SELFPAY ==
[2018-02-27 09:55] LABS: Absolute Lymphocyte Count 1.43 X10^3/ul (0.83-4.51); Absolute Neutrophil Count 2.3 X10^3/uL (2.0-7.7); Basophil# 0.02 X10^3/uL; Basophil% 0.5 % (0-1); Eosinophil# 0.08 X10^3/uL; Eosinophils% 1.9 % (0-5); Hematocrit 30.2 % (37-47); Hemoglobin 9.8 g/dl (12.0-15.0); Lymphocyte # 1.43 X10^3/ul (4.0); Lymphocyte % 33.5 % (19-41); Mean Corp Hgb Conc 32.5 g/gl (32-36); Mean Corpuscular Volume 98.7 fL (81-99); Mean Platelet Vol. 8.8 fl (6.2-12.0); Monocyte% 9.4 % (0-10); Neutrophil # 2.33 X10^3/uL (2.7-7.7); Neutrophil % 54.5 % (47-70); Platelet Count 452 K/mm3 (150-450); Red Blood Count 3.06 M/mm3 (4.2-5.4); White Blood Count 4.3 K/mm3 (4.4-11.0)
[2018-02-27 09:58] LABS: POSITIVE COUNT NO; POSITIVE DIFFERENTIAL NO; POSITIVE MORPHOLOGY NO
[2018-02-27 10:21] LABS: ALB/GLOB Ratio 1.1 RATIO (0.9-2.4); AST(SGOT) 44 U/L (15-37); Alanine Aminotransfer ALT/SGPT 57 U/L (13-56); Albumin, Serum 3.7 g/dL (3.2-5.0); Alkaline Phosphatase 125 U/L (45-117); Anion Gap 7 (5-15); BUN 21 mg/dL (7-18); BUN/Creat Ratio 22.3 RATIO (10-20); Calcium,Total 8.7 mg/dL (8.5-10.1); Chloride 102 mmol/L (98-107); Creatinine, Serum 0.94 mg/dL (0.55-1.02); EST Glomerular Filtration Rate 64 mL/min (>60); Est Glom Filt Rate - Afr Amer 78 mL/min (>60); Globulin 3.4 g/dL (2.2-4.2); Glucose 91 mg/dL (74-106); Protein, Total 7.1 g/dL (6.4-8.2); Sodium Level 142 mmol/L (136-145)
[2018-02-28 12:22] LABS: Cancer Antigen 125 27.9 U/mL (0.0-38.1)
[2018-03-27 14:26] LABS: Absolute Neutrophil Count 3.8 X10^3/uL (2.0-7.7); Basophil# 0.02 X10^3/uL; Basophil% 0.3 % (0-1); Eosinophils% 1.7 % (0-5); Hematocrit 30.2 % (37-47); Hemoglobin 9.9 g/dl (12.0-15.0); Lymphocyte % 25.6 % (19-41); Mean Corp Hgb Conc 32.8 g/gl (32-36); Mean Corpuscular Hgb 31.6 pg (27.0-32.0); Mean Corpuscular Volume 96.5 fL (81-99); Mean Platelet Vol. 9.2 fl (6.2-12.0); Monocyte# 0.47 X10^3/uL; Neutrophil # 3.75 X10^3/uL (2.7-7.7); Neutrophil % 64.1 % (47-70); POSITIVE COUNT NO; POSITIVE DIFFERENTIAL NO; POSITIVE MORPHOLOGY NO; Platelet Count 636 K/mm3 (150-450); RBC Distribution Width CV 17.2 % (11.6-14.6); RBC Distribution Width SD 59.9 fl (35.1-43.9); Red Blood Count 3.13 M/mm3 (4.2-5.4); White Blood Count 5.9 K/mm3 (4.4-11.0)
[2018-03-27 14:57] LABS: ALB/GLOB Ratio 0.9 RATIO (0.9-2.4); AST(SGOT) 29 U/L (15-37); Alanine Aminotransfer ALT/SGPT 44 U/L (13-56); Albumin, Serum 3.8 g/dL (3.2-5.0); Alkaline Phosphatase 113 U/L (45-117); Anion Gap 10 (5-15); BUN 13 mg/dL (7-18); Calcium,Total 8.9 mg/dL (8.5-10.1); Chloride 107 mmol/L (98-107); Creatinine, Serum 0.86 mg/dL (0.55-1.02); EST Glomerular Filtration Rate 71 mL/min (>60); Est Glom Filt Rate - Afr Amer 86 mL/min (>60); Globulin 4.1 g/dL (2.2-4.2); Glucose 105 mg/dL (74-106); Potassium 4.1 mmol/L (3.5-5.1); Protein, Total 7.9 g/dL (6.4-8.2); Sodium Level 143 mmol/L (136-145)
[2018-03-28 11:11] LABS: Cancer Antigen 125 49.6 U/mL (0.0-38.1)
== END 2018-03-27 14:00 | disposition home or self-care (01) ==
LOC: LAB 13:31
PROVIDERS: Family Provider Family Medicine; PCP Family Medicine; Visit Provider Internal Medicine Hematology & Oncology
DX: C56.1 Malignant neoplasm of right ovary (principal); C56.2 Malignant neoplasm of left ovary; D64.9 Anemia, unspecified
CPT/HCPCS: 36415; 80053; 85025; 86304

== ENCOUNTER → 2018-04-02 13:00 | Outpatient (CLI) | payer OTHER, SELFPAY ==
--- NOTE | 2018-04-02 13:00 | DT_ITS ---
This patient was seen during an EMR downtime April 01, 2018 - April 08, 2018. This patient may have a combination of paper and electronic documentation or all paper documentation. All documentation is viewable within the e-chart portion of [email or web address] for each patient visit.
== END ==
PROVIDERS: Family Provider Family Medicine; PCP Family Medicine; Visit Provider Internal Medicine Hematology & Oncology
DX: C56.9 Malignant neoplasm of unspecified ovary (principal); C78.7 Secondary malignant neoplasm of liver and intrahepatic bile duct
CPT/HCPCS: 96367; 96368; 96413; J7040; A4216; J2405; J3490; J9351

== ENCOUNTER → 2018-04-03 13:00 | Outpatient (CLI) | payer OTHER, SELFPAY ==
--- NOTE | 2018-04-03 13:00 | DT_ITS ---
This patient was seen during an EMR downtime April 01, 2018 - April 08, 2018. This patient may have a combination of paper and electronic documentation or all paper documentation. All documentation is viewable within the e-chart portion of [facility] for each patient visit.
== END ==
PROVIDERS: Family Provider Family Medicine; PCP Family Medicine; Visit Provider Internal Medicine Hematology & Oncology
DX: Z51.11 Encounter for antineoplastic chemotherapy (principal); C56.1 Malignant neoplasm of right ovary; C78.7 Secondary malignant neoplasm of liver and intrahepatic bile duct
CPT/HCPCS: 96367; 96413; J7040; A4216; J2405; J3490; J9351

== ENCOUNTER → 2018-04-04 10:06 | Outpatient (CLI) | payer OTHER, SELFPAY ==
--- NOTE | 2018-04-04 10:06 | DT_ITS ---
This patient was seen during an EMR downtime April 01, 2018 - April 08, 2018. This patient may have a combination of paper and electronic documentation or all paper documentation. All documentation is viewable within the e-chart portion of [employer] for each patient visit.
== END ==
PROVIDERS: Family Provider Family Medicine; PCP Family Medicine; Visit Provider Internal Medicine Hematology & Oncology
DX: Z51.11 Encounter for antineoplastic chemotherapy (principal); C56.1 Malignant neoplasm of right ovary; C78.7 Secondary malignant neoplasm of liver and intrahepatic bile duct
CPT/HCPCS: 96367; 96413; J7040; A4216; J2405; J3490; J9351

== ENCOUNTER → 2018-04-05 12:57 | Outpatient (CLI) | payer OTHER, SELFPAY ==
--- NOTE | 2018-04-05 12:57 | DT_ITS ---
This patient was seen during an EMR downtime April 01, 2018 - April 08, 2018. This patient may have a combination of paper and electronic documentation or all paper documentation. All documentation is viewable within the e-chart portion of [employer] for each patient visit.
== END ==
PROVIDERS: Family Provider Family Medicine; PCP Family Medicine; Visit Provider Internal Medicine Hematology & Oncology
DX: Z51.11 Encounter for antineoplastic chemotherapy (principal); C56.1 Malignant neoplasm of right ovary; C78.7 Secondary malignant neoplasm of liver and intrahepatic bile duct
CPT/HCPCS: 96367; 96413; 96417; J7040; A4216; J2405; J3490; J9035; J9351

== ENCOUNTER 2018-04-06 11:00 | Outpatient (CLI) | payer OTHER, SELFPAY ==
--- NOTE | 2018-04-06 11:00 | DT_ITS ---
This patient was seen during an EMR downtime April 01, 2018 - April 08, 2018. This patient may have a combination of paper and electronic documentation or all paper documentation. All documentation is viewable within the e-chart portion of [facility] for each patient visit.
== END 2018-04-06 12:35 | disposition home or self-care (01) ==
LOC: MEDOUTP 11:20 → MS3 11:20
PROVIDERS: Family Provider Family Medicine; PCP Family Medicine; Visit Provider Internal Medicine Hematology & Oncology
DX: Z51.11 Encounter for antineoplastic chemotherapy (principal); C56.1 Malignant neoplasm of right ovary; C78.7 Secondary malignant neoplasm of liver and intrahepatic bile duct
CPT/HCPCS: 96367; 96413; J7050; J2405; J3490; J9351

== ENCOUNTER 2018-04-16 10:14 | Outpatient (RCR) | payer OTHER, SELFPAY ==
[2018-04-16 10:47] LABS: Hematocrit 29.5 % (37-47); Hemoglobin 9.8 g/dl (12.0-15.0); Mean Corp Hgb Conc 33.2 g/gl (32-36); Mean Corpuscular Hgb 30.9 pg (27.0-32.0); Mean Corpuscular Volume 93.1 fL (81-99); Mean Platelet Vol. 9.8 fl (6.2-12.0); Platelet Count 41 K/mm3 (150-450); RBC Distribution Width CV 15.5 % (11.6-14.6); RBC Distribution Width SD 52.5 fl (35.1-43.9); Red Blood Count 3.17 M/mm3 (4.2-5.4); White Blood Count 3.8 K/mm3 (4.4-11.0)
[2018-04-16 11:08] LABS: Differential Indicated MANUAL DIFF; POSITIVE COUNT YES; POSITIVE DIFFERENTIAL NO; POSITIVE MORPHOLOGY YES
[2018-04-16 11:13] LABS: Eosinophil 2 % (0-5); Lymphocyte 42 % (19-41); Metamyelocyte 1 % (0-1); Monocyte 9 % (0-10); Myelocyte 1 (0-0); Neutrophil-Band 3 % (0-5); Neutrophil-Segmented 40 % (47-70); Nucleated Red Bld Cells,Manual 1 % (0-5); Promyelocyte 2 (0-0); Total Cells Counted 100 (MANUAL DIFF)
[2018-04-16 11:15] LABS: Hypochromasia 2+; Platelet Estimate MKD DEC (ADEQ); Platelet Morphology LARGE
[2018-04-16 11:16] LABS: Absolute Lymphocyte Count 1.61 X10^3/ul (0.83-4.51); Absolute Neutrophil Count 1.7 X10^3/uL (2.0-7.7)
[2018-04-16 11:29] LABS: BUN 12 mg/dL (7-18); Creatinine, Serum 0.76 mg/dL (0.55-1.02); Glucose 113 mg/dL (74-106)
[2018-04-16 11:30] LABS: AST(SGOT) 42 U/L (15-37); Alanine Aminotransfer ALT/SGPT 83 U/L (13-56); Albumin, Serum 3.7 g/dL (3.2-5.0); Alkaline Phosphatase 154 U/L (45-117); Anion Gap 7 (5-15); BUN/Creat Ratio 15.8 RATIO (10-20); Calcium,Total 8.6 mg/dL (8.5-10.1); Chloride 106 mmol/L (98-107); EST Glomerular Filtration Rate 82 mL/min (>60); Est Glom Filt Rate - Afr Amer 100 mL/min (>60); Globulin 3.7 g/dL (2.2-4.2); Potassium 3.9 mmol/L (3.5-5.1); Protein, Total 7.4 g/dL (6.4-8.2); Sodium Level 143 mmol/L (136-145)
[2018-04-17 09:50] LABS: Pathologist Review Reviewed
[2018-04-17 12:12] LABS: Cancer Antigen 125 48.1 U/mL (0.0-38.1)
== END 2018-04-16 11:00 | disposition home or self-care (01) ==
LOC: LAB 10:14
PROVIDERS: Family Provider Family Medicine; PCP Family Medicine; Visit Provider Internal Medicine Hematology & Oncology
DX: C56.1 Malignant neoplasm of right ovary (principal); C56.2 Malignant neoplasm of left ovary; D64.9 Anemia, unspecified
CPT/HCPCS: 36415; 80053; 85025; 86304

== ENCOUNTER 2018-05-18 12:41 | Outpatient (RCR) | payer OTHER, SELFPAY ==
[2018-05-18 13:05] LABS: Absolute Neutrophil Count 4.7 X10^3/uL (2.0-7.7); Basophil# 0.04 X10^3/uL; Basophil% 0.6 % (0-1); Eosinophil# 0.24 X10^3/uL; Eosinophils% 3.4 % (0-5); Hematocrit 34.6 % (37-47); Hemoglobin 11.3 g/dl (12.0-15.0); Lymphocyte % 22.5 % (19-41); Mean Corp Hgb Conc 32.7 g/gl (32-36); Mean Corpuscular Hgb 30.9 pg (27.0-32.0); Mean Corpuscular Volume 94.5 fL (81-99); Mean Platelet Vol. 9.8 fl (6.2-12.0); Neutrophil # 4.69 X10^3/uL (2.7-7.7); Neutrophil % 65.9 % (47-70); POSITIVE COUNT NO; POSITIVE DIFFERENTIAL NO; POSITIVE MORPHOLOGY NO; Platelet Count 217 K/mm3 (150-450); RBC Distribution Width SD 49.3 fl (35.1-43.9); Red Blood Count 3.66 M/mm3 (4.2-5.4); White Blood Count 7.1 K/mm3 (4.4-11.0)
[2018-05-18 13:43] LABS: AST(SGOT) 42 U/L (15-37); Alanine Aminotransfer ALT/SGPT 63 U/L (13-56); Albumin, Serum 3.6 g/dL (3.2-5.0); Alkaline Phosphatase 113 U/L (45-117); Anion Gap 4 (5-15); BUN 19 mg/dL (7-18); BUN/Creat Ratio 22.4 RATIO (10-20); Calcium,Total 8.6 mg/dL (8.5-10.1); Chloride 104 mmol/L (98-107); Creatinine, Serum 0.85 mg/dL (0.55-1.02); EST Glomerular Filtration Rate 73 mL/min (>60); Est Glom Filt Rate - Afr Amer 88 mL/min (>60); Globulin 3.7 g/dL (2.2-4.2); Glucose 104 mg/dL (74-106); Potassium 3.9 mmol/L (3.5-5.1); Protein, Total 7.3 g/dL (6.4-8.2); Sodium Level 140 mmol/L (136-145)
== END 2018-05-18 14:00 | disposition home or self-care (01) ==
LOC: LAB 12:41
PROVIDERS: Family Provider Family Medicine; PCP Family Medicine; Visit Provider Internal Medicine Hematology & Oncology
DX: C56.1 Malignant neoplasm of right ovary (principal); C56.2 Malignant neoplasm of left ovary; D64.9 Anemia, unspecified
CPT/HCPCS: 36415; 80053; 85025

== ENCOUNTER → 2018-05-20 10:54 | Outpatient (CLI) | payer OTHER, SELFPAY ==
[2018-05-20 11:02] VITALS: BP 147/91; PULSE 81; RESP 18; TEMP 36.2; BMI 32.8
== END ==
PROVIDERS: Family Provider Family Medicine; PCP Family Medicine; Visit Provider Internal Medicine Hematology & Oncology
DX: Z51.11 Encounter for antineoplastic chemotherapy (principal); C56.1 Malignant neoplasm of right ovary; C78.7 Secondary malignant neoplasm of liver and intrahepatic bile duct
CPT/HCPCS: 96367; 96413; 96417; J7050; A4216; J2405; J3490; J9035; J9351

== ENCOUNTER → 2018-05-21 14:29 | Outpatient (CLI) | payer OTHER, SELFPAY ==
[2018-05-21 14:37] VITALS: BP 176/93; PULSE 72; RESP 16; TEMP 36; O2SAT 98
== END ==
PROVIDERS: Family Provider Family Medicine; PCP Family Medicine; Visit Provider Internal Medicine Hematology & Oncology
DX: Z51.11 Encounter for antineoplastic chemotherapy (principal); C56.1 Malignant neoplasm of right ovary; C78.7 Secondary malignant neoplasm of liver and intrahepatic bile duct
CPT/HCPCS: 96367; 96413; J7050; A4216; J2405; J3490; J9351

== ENCOUNTER → 2018-05-22 13:33 | Outpatient (CLI) | payer OTHER, SELFPAY ==
[2018-05-22 14:20] VITALS: BP 144/82; PULSE 73; RESP 16; TEMP 36.2; O2SAT 97
== END ==
PROVIDERS: Family Provider Family Medicine; PCP Family Medicine; Visit Provider Internal Medicine Hematology & Oncology
DX: Z51.11 Encounter for antineoplastic chemotherapy (principal); C56.1 Malignant neoplasm of right ovary; C78.7 Secondary malignant neoplasm of liver and intrahepatic bile duct
CPT/HCPCS: 96367; 96413; J7050; A4216; J2405; J3490; J9351

== ENCOUNTER → 2018-05-23 13:56 | Outpatient (CLI) | payer OTHER, SELFPAY ==
[2018-05-23 14:45] VITALS: BP 153/86; PULSE 77; RESP 16; TEMP 36.6; O2SAT 98; BMI 32.4
== END ==
PROVIDERS: Family Provider Family Medicine; PCP Family Medicine; Visit Provider Internal Medicine Hematology & Oncology
DX: C56.1 Malignant neoplasm of right ovary (principal); C78.7 Secondary malignant neoplasm of liver and intrahepatic bile duct
CPT/HCPCS: 96366; 96413; J7050; A4216; J2405; J3490; J9351

== ENCOUNTER → 2018-05-24 14:24 | Outpatient (CLI) | payer OTHER, SELFPAY ==
[2018-05-24 14:49] VITALS: BP 149/79; PULSE 86; RESP 18; TEMP 36.2; O2SAT 97
== END ==
PROVIDERS: Family Provider Family Medicine; PCP Family Medicine; Visit Provider Internal Medicine Hematology & Oncology
DX: Z51.11 Encounter for antineoplastic chemotherapy (principal); C56.1 Malignant neoplasm of right ovary; C78.7 Secondary malignant neoplasm of liver and intrahepatic bile duct
CPT/HCPCS: 96367; 96413; J7050; A4216; J2405; J3490; J9351

== ENCOUNTER → 2018-06-17 12:52 | Outpatient (CLI) | payer OTHER, SELFPAY ==
[2018-06-17 13:02] VITALS: BP 162/85; PULSE 76; RESP 16; TEMP 36.3; O2SAT 98; BMI 32.5
== END ==
PROVIDERS: Family Provider Family Medicine; PCP Family Medicine; Visit Provider Internal Medicine Hematology & Oncology
DX: Z51.11 Encounter for antineoplastic chemotherapy (principal); C56.1 Malignant neoplasm of right ovary; C78.7 Secondary malignant neoplasm of liver and intrahepatic bile duct
CPT/HCPCS: 96367; 96413; 96417; J7050; A4216; J2405; J3490; J9035; J9351

== ENCOUNTER → 2018-06-18 12:59 | Outpatient (CLI) | payer OTHER, SELFPAY ==
[2018-06-18 13:27] VITALS: BP 146/80; PULSE 71; RESP 16; TEMP 36.6; O2SAT 98; BMI 32.1
[2018-06-18] MEDS: Palonosetron HCl 0.25 MG/5 ML Vial IV (14:00)
== END ==
PROVIDERS: Family Provider Family Medicine; PCP Family Medicine; Visit Provider Internal Medicine Hematology & Oncology
DX: Z51.11 Encounter for antineoplastic chemotherapy (principal); C56.1 Malignant neoplasm of right ovary; C56.2 Malignant neoplasm of left ovary; C78.7 Secondary malignant neoplasm of liver and intrahepatic bile duct
CPT/HCPCS: 96367; 96376; 96413; J7050; A4216; J2405; J2469; J3490; J9351

== ENCOUNTER → 2018-06-19 13:05 | Outpatient (CLI) | payer OTHER, SELFPAY ==
[2018-06-19 13:43] VITALS: BP 160/80; PULSE 68; RESP 18; TEMP 36.2; O2SAT 97
== END ==
PROVIDERS: Family Provider Family Medicine; PCP Family Medicine; Visit Provider Internal Medicine Hematology & Oncology
DX: Z51.11 Encounter for antineoplastic chemotherapy (principal); C56.1 Malignant neoplasm of right ovary; C78.7 Secondary malignant neoplasm of liver and intrahepatic bile duct
CPT/HCPCS: 96367; 96413; J7050; A4216; J1453; J9351

== ENCOUNTER → 2018-06-20 13:02 | Outpatient (CLI) | payer OTHER, SELFPAY ==
[2018-06-20 13:28] VITALS: BP 136/77; PULSE 78; RESP 16; TEMP 36.2; O2SAT 97
== END ==
PROVIDERS: Family Provider Family Medicine; PCP Family Medicine; Visit Provider Internal Medicine Hematology & Oncology
DX: Z51.11 Encounter for antineoplastic chemotherapy (principal); C56.1 Malignant neoplasm of right ovary; C78.7 Secondary malignant neoplasm of liver and intrahepatic bile duct
CPT/HCPCS: 96413; J7050; A4216; J9351

== ENCOUNTER → 2018-06-21 12:58 | Outpatient (CLI) | payer OTHER, SELFPAY ==
[2018-06-21 13:16] VITALS: BP 150/83; PULSE 82; RESP 18; TEMP 36.2; O2SAT 97
== END ==
PROVIDERS: Family Provider Family Medicine; PCP Family Medicine; Visit Provider Internal Medicine Hematology & Oncology
DX: Z51.11 Encounter for antineoplastic chemotherapy (principal); C56.1 Malignant neoplasm of right ovary; C78.7 Secondary malignant neoplasm of liver and intrahepatic bile duct
CPT/HCPCS: 96413; J7050; A4216; J9351

== ENCOUNTER 2018-06-26 10:01 | Outpatient (RCR) | payer OTHER, SELFPAY ==
[2018-06-10 13:20] LABS: Absolute Lymphocyte Count 1.43 X10^3/ul (0.83-4.51); Absolute Neutrophil Count 2.4 X10^3/uL (2.0-7.7); Basophil# 0.02 X10^3/uL; Basophil% 0.5 % (0-1); Eosinophil# 0.02 X10^3/uL; Eosinophils% 0.5 % (0-5); Hematocrit 30.8 % (37-47); Hemoglobin 10.2 g/dl (12.0-15.0); Lymphocyte # 1.43 X10^3/ul (4.0); Lymphocyte % 33.3 % (19-41); Mean Corp Hgb Conc 33.1 g/gl (32-36); Mean Corpuscular Hgb 30.6 pg (27.0-32.0); Mean Corpuscular Volume 92.5 fL (81-99); Mean Platelet Vol. 9.8 fl (6.2-12.0); Monocyte# 0.38 X10^3/uL; Monocyte% 8.9 % (0-10); Neutrophil % 55.9 % (47-70); POSITIVE COUNT NO; POSITIVE DIFFERENTIAL NO; POSITIVE MORPHOLOGY NO; Platelet Count 353 K/mm3 (150-450); Red Blood Count 3.33 M/mm3 (4.2-5.4); White Blood Count 4.3 K/mm3 (4.4-11.0)
[2018-06-10 13:57] LABS: ALB/GLOB Ratio 0.9 RATIO (0.9-2.4); AST(SGOT) 35 U/L (15-37); Alanine Aminotransfer ALT/SGPT 56 U/L (13-56); Albumin, Serum 3.7 g/dL (3.2-5.0); Alkaline Phosphatase 133 U/L (45-117); Anion Gap 11 (5-15); BUN 12 mg/dL (7-18); BUN/Creat Ratio 15.6 RATIO (10-20); Calcium,Total 8.9 mg/dL (8.5-10.1); Chloride 105 mmol/L (98-107); Creatinine, Serum 0.77 mg/dL (0.55-1.02); EST Glomerular Filtration Rate 81 mL/min (>60); Est Glom Filt Rate - Afr Amer 98 mL/min (>60); Globulin 4.3 g/dL (2.2-4.2); Glucose 94 mg/dL (74-106); Potassium 4.1 mmol/L (3.5-5.1); Sodium Level 143 mmol/L (136-145)
[2018-06-11 06:58] LABS: Cancer Antigen 125 62.5 U/mL (0.0-38.1)
[2018-06-26 11:28] LABS: Absolute Lymphocyte Count 1.44 X10^3/ul (0.83-4.51); Hematocrit 30.2 % (37-47); Hemoglobin 9.8 g/dl (12.0-15.0); Lymphocyte # 1.44 X10^3/ul (4.0); Lymphocyte % 49.7 % (19-41); Mean Corp Hgb Conc 32.5 g/gl (32-36); Mean Corpuscular Hgb 29.4 pg (27.0-32.0); Mean Corpuscular Volume 90.7 fL (81-99); Mean Platelet Vol. 10.6 fl (6.2-12.0); Monocyte# 0.41 X10^3/uL; Monocyte% 14.1 % (0-10); Neutrophil # 1.02 X10^3/uL (2.7-7.7); Neutrophil % 35.2 % (47-70); Platelet Count 118 K/mm3 (150-450); RBC Distribution Width CV 15.7 % (11.6-14.6); RBC Distribution Width SD 51.3 fl (35.1-43.9); Red Blood Count 3.33 M/mm3 (4.2-5.4); White Blood Count 2.9 K/mm3 (4.4-11.0)
[2018-06-26 11:29] LABS: POSITIVE COUNT NO; POSITIVE DIFFERENTIAL NO; POSITIVE MORPHOLOGY NO
== END 2018-06-26 11:00 | disposition home or self-care (01) ==
LOC: LAB 10:01
PROVIDERS: Family Provider Family Medicine; PCP Family Medicine; Visit Provider Internal Medicine Hematology & Oncology
DX: C56.1 Malignant neoplasm of right ovary (principal); C56.2 Malignant neoplasm of left ovary; D64.9 Anemia, unspecified
CPT/HCPCS: 36415; 80053; 85025; 86304

== ENCOUNTER → 2018-07-08 10:57 | Outpatient (CLI) | payer OTHER, SELFPAY ==
[2018-07-08 11:09] VITALS: BP 150/83; PULSE 76; RESP 16; TEMP 36.2; O2SAT 99; BMI 32.9
== END ==
PROVIDERS: Family Provider Family Medicine; PCP Family Medicine; Visit Provider Internal Medicine Hematology & Oncology
DX: Z51.11 Encounter for antineoplastic chemotherapy (principal); C56.1 Malignant neoplasm of right ovary; C78.7 Secondary malignant neoplasm of liver and intrahepatic bile duct
CPT/HCPCS: 96367; 96413; 96417; J7050; A4216; J1453; J2405; J3490; J9035; J9351

== ENCOUNTER → 2018-07-09 11:02 | Outpatient (CLI) | payer OTHER, SELFPAY ==
[2018-07-09 11:49] VITALS: BP 149/94; PULSE 64; RESP 16; TEMP 36.7; O2SAT 99; BMI 71.5
== END ==
PROVIDERS: Family Provider Family Medicine; PCP Family Medicine; Visit Provider Internal Medicine Hematology & Oncology
DX: Z51.11 Encounter for antineoplastic chemotherapy (principal); C56.1 Malignant neoplasm of right ovary; C78.7 Secondary malignant neoplasm of liver and intrahepatic bile duct
CPT/HCPCS: 96367; 96413; J7050; A4216; J2405; J3490; J9351

== ENCOUNTER → 2018-07-10 11:09 | Outpatient (CLI) | payer OTHER, SELFPAY ==
[2018-07-10 11:20] VITALS: BP 150/98; PULSE 83; RESP 16; TEMP 36.6; O2SAT 98; BMI 32.4
== END ==
PROVIDERS: Family Provider Family Medicine; PCP Family Medicine; Visit Provider Internal Medicine Hematology & Oncology
DX: Z51.11 Encounter for antineoplastic chemotherapy (principal); C56.1 Malignant neoplasm of right ovary; C78.7 Secondary malignant neoplasm of liver and intrahepatic bile duct
CPT/HCPCS: 96367; 96413; J7050; A4216; J2405; J3490; J9351

== ENCOUNTER → 2018-07-11 12:58 | Outpatient (CLI) | payer OTHER, SELFPAY ==
[2018-07-11 13:15] VITALS: BP 140/74; PULSE 82; RESP 16; TEMP 36.6; O2SAT 99; BMI 32.4
== END ==
PROVIDERS: Family Provider Family Medicine; PCP Family Medicine; Visit Provider Internal Medicine Hematology & Oncology
DX: Z51.11 Encounter for antineoplastic chemotherapy (principal); C56.1 Malignant neoplasm of right ovary; C78.7 Secondary malignant neoplasm of liver and intrahepatic bile duct
CPT/HCPCS: 96367; 96413; J7050; A4216; J1453; J2405; J3490; J9351

== ENCOUNTER → 2018-07-12 13:41 | Outpatient (CLI) | payer OTHER, SELFPAY ==
[2018-07-12 14:05] VITALS: BP 163/88; PULSE 76; RESP 16; TEMP 36.8; BMI 32.4
== END ==
PROVIDERS: Family Provider Family Medicine; PCP Family Medicine; Visit Provider Internal Medicine Hematology & Oncology
DX: Z51.11 Encounter for antineoplastic chemotherapy (principal); C56.1 Malignant neoplasm of right ovary
CPT/HCPCS: 96367; 96413; J7050; A4216; J2405; J3490; J9351

== ENCOUNTER 2018-07-23 14:28 | Outpatient (RCR) | payer OTHER, SELFPAY ==
[2018-07-03 13:19] LABS: ALB/GLOB Ratio 0.9 RATIO (0.9-2.4); AST(SGOT) 24 U/L (15-37); Alanine Aminotransfer ALT/SGPT 46 U/L (13-56); Albumin, Serum 3.6 g/dL (3.2-5.0); Alkaline Phosphatase 130 U/L (45-117); Anion Gap 10 (5-15); BUN 14 mg/dL (7-18); BUN/Creat Ratio 17.9 RATIO (10-20); Calcium,Total 8.7 mg/dL (8.5-10.1); Chloride 106 mmol/L (98-107); Creatinine, Serum 0.78 mg/dL (0.55-1.02); EST Glomerular Filtration Rate 79 mL/min (>60); Est Glom Filt Rate - Afr Amer 96 mL/min (>60); Glucose 130 mg/dL (74-106); Protein, Total 7.6 g/dL (6.4-8.2); Sodium Level 144 mmol/L (136-145)
[2018-07-03 13:29] LABS: Hematocrit 29.5 % (37-47); Hemoglobin 9.7 g/dl (12.0-15.0); Mean Corp Hgb Conc 32.9 g/gl (32-36); Mean Corpuscular Volume 91.3 fL (81-99); Mean Platelet Vol. 11.2 fl (6.2-12.0); Platelet Count 93 K/mm3 (150-450); RBC Distribution Width CV 15.9 % (11.6-14.6); RBC Distribution Width SD 51.2 fl (35.1-43.9); Red Blood Count 3.23 M/mm3 (4.2-5.4); White Blood Count 4.4 K/mm3 (4.4-11.0)
[2018-07-03 13:31] LABS: Differential Indicated MANUAL DIFF; POSITIVE COUNT YES; POSITIVE DIFFERENTIAL NO; POSITIVE MORPHOLOGY YES
[2018-07-03 14:03] LABS: Basophil 1 % (0-1); Eosinophil 5 % (0-5); Lymphocyte 44 % (19-41); Monocyte 5 % (0-10); Neutrophil-Segmented 42 % (47-70); Promyelocyte 3 (0-0); Total Cells Counted 100 (MANUAL DIFF)
[2018-07-03 14:04] LABS: Platelet Estimate MOD DEC (ADEQ); Red Cell Morphology NORM C+C NORMAL (NORM C&C)
[2018-07-03 14:05] LABS: Absolute Lymphocyte Count 1.94 X10^3/ul (0.83-4.51); Absolute Neutrophil Count 1.8 X10^3/uL (2.0-7.7)
[2018-07-04 11:34] LABS: Cancer Antigen 125 72.9 U/mL (0.0-38.1)
[2018-07-04 14:32] LABS: Pathologist Review Reviewed
[2018-07-23 15:14] LABS: Differential Indicated MANUAL DIFF; Hematocrit 28.7 % (37-47); Hemoglobin 9.3 g/dl (12.0-15.0); Mean Corp Hgb Conc 32.4 g/gl (32-36); Mean Corpuscular Volume 92.6 fL (81-99); Mean Platelet Vol. 10.7 fl (6.2-12.0); POSITIVE COUNT YES; POSITIVE DIFFERENTIAL NO; POSITIVE MORPHOLOGY YES; Platelet Count 81 K/mm3 (150-450); RBC Distribution Width CV 18.2 % (11.6-14.6); RBC Distribution Width SD 56.7 fl (35.1-43.9); White Blood Count 5.6 K/mm3 (4.4-11.0)
[2018-07-23 15:37] LABS: AST(SGOT) 19 U/L (15-37); Alanine Aminotransfer ALT/SGPT 39 U/L (13-56); Albumin, Serum 3.9 g/dL (3.2-5.0); Alkaline Phosphatase 135 U/L (45-117); Anion Gap 7 (5-15); BUN 11 mg/dL (7-18); BUN/Creat Ratio 12.4 RATIO (10-20); Calcium,Total 8.7 mg/dL (8.5-10.1); Chloride 106 mmol/L (98-107); Creatinine, Serum 0.89 mg/dL (0.55-1.02); EST Glomerular Filtration Rate 69 mL/min (>60); Est Glom Filt Rate - Afr Amer 83 mL/min (>60); Globulin 3.8 g/dL (2.2-4.2); Glucose 115 mg/dL (74-106); Potassium 3.8 mmol/L (3.5-5.1); Protein, Total 7.7 g/dL (6.4-8.2); Sodium Level 141 mmol/L (136-145)
[2018-07-23 16:30] LABS: Eosinophil 6 % (0-5); Lymphocyte 22 % (19-41); Metamyelocyte 2 % (0-1); Monocyte 4 % (0-10); Myelocyte 3 (0-0); Neutrophil-Band 7 % (0-5); Neutrophil-Segmented 55 % (47-70); Promyelocyte 1 (0-0); Total Cells Counted 100 (MANUAL DIFF)
[2018-07-23 16:31] LABS: Absolute Lymphocyte Count 1.24 X10^3/ul (0.83-4.51); Absolute Neutrophil Count 3.5 X10^3/uL (2.0-7.7)
[2018-07-24 14:57] LABS: Pathologist Review Reviewed
[2018-07-26 08:19] LABS: Cancer Antigen 125 59.4 U/mL (0.0-38.1)
== END 2018-07-23 16:00 | disposition home or self-care (01) ==
LOC: LAB 14:28
PROVIDERS: Family Provider Family Medicine; PCP Family Medicine; Visit Provider Internal Medicine Hematology & Oncology
DX: C56.1 Malignant neoplasm of right ovary (principal); C56.2 Malignant neoplasm of left ovary; D64.9 Anemia, unspecified
CPT/HCPCS: 36415; 80053; 85025; 86304

== ENCOUNTER → 2018-07-29 13:29 | Outpatient (CLI) | payer OTHER, SELFPAY ==
[2018-07-29 13:52] VITALS: BP 143/80; PULSE 94; RESP 18; TEMP 35.9; O2SAT 99; BMI 32.9
[2018-07-29 14:14] LABS: Absolute Lymphocyte Count 1.65 X10^3/ul (0.83-4.51); Absolute Neutrophil Count 6.4 X10^3/uL (2.0-7.7); Basophil# 0.04 X10^3/uL; Basophil% 0.5 % (0-1); Eosinophil# 0.15 X10^3/uL; Eosinophils% 1.7 % (0-5); Hematocrit 27.9 % (37-47); Hemoglobin 8.9 g/dl (12.0-15.0); Lymphocyte # 1.65 X10^3/ul (4.0); Lymphocyte % 18.8 % (19-41); Mean Corp Hgb Conc 31.9 g/gl (32-36); Mean Corpuscular Hgb 29.7 pg (27.0-32.0); Mean Platelet Vol. 9.4 fl (6.2-12.0); Monocyte# 0.46 X10^3/uL; Monocyte% 5.2 % (0-10); Neutrophil # 6.44 X10^3/uL (2.7-7.7); Neutrophil % 73.3 % (47-70); Platelet Count 361 K/mm3 (150-450); RBC Distribution Width CV 19.7 % (11.6-14.6); RBC Distribution Width SD 65.1 fl (35.1-43.9); White Blood Count 8.8 K/mm3 (4.4-11.0)
[2018-07-29 14:22] LABS: Differential Indicated SCAN CRITERIA MET; POSITIVE COUNT NO; POSITIVE DIFFERENTIAL NO; POSITIVE MORPHOLOGY YES
[2018-07-29 14:37] LABS: Anisocytosis 2+; Differential Comment SCANNED
== END ==
PROVIDERS: Family Provider Family Medicine; PCP Family Medicine; Referring Provider Internal Medicine Hematology & Oncology; Visit Provider Internal Medicine Hematology & Oncology
DX: Z51.11 Encounter for antineoplastic chemotherapy (principal); C56.1 Malignant neoplasm of right ovary
CPT/HCPCS: 36591; 85025; 96367; 96413; 96417; J7050; A4216; J1453; J2405; J3490; J9035; J9351

== ENCOUNTER → 2018-07-30 13:30 | Outpatient (CLI) | payer OTHER, SELFPAY ==
[2018-07-30 13:45] VITALS: BP 130/75; PULSE 90; RESP 16; TEMP 36.4; O2SAT 97
== END ==
PROVIDERS: Family Provider Family Medicine; PCP Family Medicine; Referring Provider Internal Medicine Hematology & Oncology; Visit Provider Internal Medicine Hematology & Oncology
DX: Z51.11 Encounter for antineoplastic chemotherapy (principal); C56.1 Malignant neoplasm of right ovary
CPT/HCPCS: 96367; 96413; J7050; A4216; J2405; J3490; J9351

== ENCOUNTER → 2018-07-31 11:02 | Outpatient (CLI) | payer OTHER, SELFPAY ==
[2018-07-31 11:11] VITALS: BP 147/76; PULSE 83; RESP 16; TEMP 36.1; O2SAT 94
== END ==
PROVIDERS: Family Provider Family Medicine; PCP Family Medicine; Referring Provider Internal Medicine Hematology & Oncology; Visit Provider Internal Medicine Hematology & Oncology
DX: Z51.11 Encounter for antineoplastic chemotherapy (principal); C56.1 Malignant neoplasm of right ovary; C00-D49 Neoplasms
CPT/HCPCS: 96367; 96413; J7050; A4216; J2405; J3490; J9351

== ENCOUNTER → 2018-08-01 14:00 | Outpatient (CLI) | payer OTHER, SELFPAY ==
[2018-08-01 14:07] VITALS: BP 150/86; PULSE 99; RESP 18; TEMP 35.7; O2SAT 97
== END ==
PROVIDERS: Family Provider Family Medicine; PCP Family Medicine; Referring Provider Internal Medicine Hematology & Oncology; Visit Provider Internal Medicine Hematology & Oncology
DX: Z51.11 Encounter for antineoplastic chemotherapy (principal); C56.9 Malignant neoplasm of unspecified ovary
CPT/HCPCS: 96366; 96375; 96413; J7050; A4216; J1453; J2405; J3490; J9351

== ENCOUNTER → 2018-08-02 13:37 | Outpatient (CLI) | payer OTHER, SELFPAY ==
[2018-08-02 13:49] VITALS: BP 157/91; PULSE 86; RESP 16; TEMP 35.5; O2SAT 95; BMI 32.1
== END ==
PROVIDERS: Family Provider Family Medicine; PCP Family Medicine; Referring Provider Internal Medicine Hematology & Oncology; Visit Provider Internal Medicine Hematology & Oncology
DX: C56.1 Malignant neoplasm of right ovary (principal); C78.7 Secondary malignant neoplasm of liver and intrahepatic bile duct
CPT/HCPCS: 96366; 96413; J7050; A4216; J2405; J3490; J9351

== ENCOUNTER → 2018-08-06 09:29 | Outpatient (CLI) | payer OTHER, SELFPAY ==
[2018-08-06 09:40] VITALS: BP 137/78; PULSE 92; RESP 16; TEMP 36.2; O2SAT 100; BMI 32.2
[2018-08-06 10:10] VITALS: BP 143/82; PULSE 95; RESP 16; TEMP 36.1
[2018-08-06 11:10] VITALS: BP 137/78; PULSE 78; RESP 14; TEMP 36.8; O2SAT 100
[2018-08-06 12:26] VITALS: BP 159/87; PULSE 80; RESP 15; TEMP 36.7; O2SAT 100
== END ==
PROVIDERS: Family Provider Family Medicine; PCP Family Medicine; Referring Provider Internal Medicine Hematology & Oncology; Visit Provider Internal Medicine Hematology & Oncology
DX: D61.818 Other pancytopenia (principal)
CPT/HCPCS: 36430; 86920; J7040; P9016; A4216

== ENCOUNTER 2018-08-26 16:15 | Outpatient (RCR) | payer OTHER, SELFPAY ==
[2018-08-05 13:43] LABS: Absolute Lymphocyte Count 0.97 X10^3/ul (0.83-4.51); Basophil# 0.03 X10^3/uL; Eosinophil# 0.02 X10^3/uL; Eosinophils% 0.6 % (0-5); Hematocrit 27.3 % (37-47); Hemoglobin 8.8 g/dl (12.0-15.0); Lymphocyte # 0.97 X10^3/ul (4.0); Lymphocyte % 30.8 % (19-41); Mean Corp Hgb Conc 32.2 g/gl (32-36); Mean Corpuscular Hgb 29.6 pg (27.0-32.0); Mean Corpuscular Volume 91.9 fL (81-99); Mean Platelet Vol. 9.4 fl (6.2-12.0); Monocyte# 0.07 X10^3/uL; Monocyte% 2.2 % (0-10); Neutrophil # 2.03 X10^3/uL (2.7-7.7); Neutrophil % 64.4 % (47-70); POSITIVE COUNT NO; POSITIVE DIFFERENTIAL NO; POSITIVE MORPHOLOGY NO; Platelet Count 317 K/mm3 (150-450); RBC Distribution Width CV 18.8 % (11.6-14.6); RBC Distribution Width SD 62.5 fl (35.1-43.9); Red Blood Count 2.97 M/mm3 (4.2-5.4); White Blood Count 3.2 K/mm3 (4.4-11.0)
[2018-08-05 13:57] LABS: ALB/GLOB Ratio 0.9 RATIO (0.9-2.4); AST(SGOT) 19 U/L (15-37); Alanine Aminotransfer ALT/SGPT 42 U/L (13-56); Albumin, Serum 3.7 g/dL (3.2-5.0); Alkaline Phosphatase 123 U/L (45-117); Anion Gap 8 (5-15); BUN 19 mg/dL (7-18); BUN/Creat Ratio 26.5 RATIO (10-20); Calcium,Total 8.9 mg/dL (8.5-10.1); Chloride 104 mmol/L (98-107); Creatinine, Serum 0.72 mg/dL (0.55-1.02); EST Glomerular Filtration Rate 88 mL/min (>60); Est Glom Filt Rate - Afr Amer 106 mL/min (>60); Globulin 3.9 g/dL (2.2-4.2); Glucose 88 mg/dL (74-106); Potassium 4.5 mmol/L (3.5-5.1); Protein, Total 7.6 g/dL (6.4-8.2); Sodium Level 139 mmol/L (136-145)
[2018-08-26 17:14] LABS: ALB/GLOB Ratio 0.9 RATIO (0.9-2.4); AST(SGOT) 18 U/L (15-37); Alanine Aminotransfer ALT/SGPT 40 U/L (13-56); Albumin, Serum 3.7 g/dL (3.2-5.0); Alkaline Phosphatase 123 U/L (45-117); Anion Gap 11 (5-15); BUN 16 mg/dL (7-18); BUN/Creat Ratio 17.6 RATIO (10-20); Calcium,Total 9.3 mg/dL (8.5-10.1); Chloride 104 mmol/L (98-107); Creatinine, Serum 0.91 mg/dL (0.55-1.02); EST Glomerular Filtration Rate 67 mL/min (>60); Est Glom Filt Rate - Afr Amer 81 mL/min (>60); Globulin 4.1 g/dL (2.2-4.2); Glucose 98 mg/dL (74-106); Potassium 4.3 mmol/L (3.5-5.1); Protein, Total 7.8 g/dL (6.4-8.2); Sodium Level 142 mmol/L (136-145)
[2018-08-26 17:25] LABS: Absolute Lymphocyte Count 1.84 X10^3/ul (0.83-4.51); Absolute Neutrophil Count 3.8 X10^3/uL (2.0-7.7); Basophil# 0.05 X10^3/uL; Basophil% 0.8 % (0-1); Eosinophil# 0.09 X10^3/uL; Eosinophils% 1.4 % (0-5); Hematocrit 33.5 % (37-47); Hemoglobin 10.6 g/dl (12.0-15.0); Lymphocyte # 1.84 X10^3/ul (4.0); Lymphocyte % 29.3 % (19-41); Mean Corp Hgb Conc 31.6 g/gl (32-36); Mean Corpuscular Hgb 30.8 pg (27.0-32.0); Mean Corpuscular Volume 97.4 fL (81-99); Mean Platelet Vol. 9.9 fl (6.2-12.0); Monocyte# 0.55 X10^3/uL; Monocyte% 8.7 % (0-10); Neutrophil # 3.75 X10^3/uL (2.7-7.7); Neutrophil % 59.6 % (47-70); Platelet Count 519 K/mm3 (150-450); RBC Distribution Width CV 19.3 % (11.6-14.6); RBC Distribution Width SD 66.1 fl (35.1-43.9); Red Blood Count 3.44 M/mm3 (4.2-5.4); White Blood Count 6.3 K/mm3 (4.4-11.0)
[2018-08-26 17:26] LABS: Differential Indicated SCAN CRITERIA MET; POSITIVE COUNT NO; POSITIVE DIFFERENTIAL NO; POSITIVE MORPHOLOGY YES
[2018-08-26 17:50] LABS: Anisocytosis 1+; Differential Comment SCANNED; Polychromasia RARE
[2018-08-28 11:31] LABS: Cancer Antigen 125 59.5 U/mL (0.0-38.1)
== END 2018-08-26 18:00 | disposition home or self-care (01) ==
LOC: LAB 16:15
PROVIDERS: Family Provider Family Medicine; PCP Family Medicine; Referring Provider Internal Medicine Hematology & Oncology; Visit Provider Internal Medicine Hematology & Oncology
DX: C56.1 Malignant neoplasm of right ovary (principal); C56.2 Malignant neoplasm of left ovary
CPT/HCPCS: 36415; 80053; 85025; 86304; 86850; 86900; 86920

== ENCOUNTER → 2018-09-09 12:47 | Outpatient (CLI) | payer OTHER, SELFPAY ==
[2018-09-09 13:02] VITALS: BP 130/82; PULSE 73; RESP 16; TEMP 36; O2SAT 98; BMI 32.6
== END ==
PROVIDERS: Family Provider Family Medicine; PCP Family Medicine; Referring Provider Internal Medicine Hematology & Oncology; Visit Provider Internal Medicine Hematology & Oncology
DX: Z51.11 Encounter for antineoplastic chemotherapy (principal); C56.1 Malignant neoplasm of right ovary
CPT/HCPCS: 96367; 96413; 96417; J7050; A4216; J1453; J2405; J3490; J9035; J9351

== ENCOUNTER → 2018-09-10 12:55 | Outpatient (CLI) | payer OTHER, SELFPAY ==
[2018-09-10 13:41] VITALS: BP 131/78; PULSE 70; RESP 16; TEMP 35.9; O2SAT 97
== END ==
PROVIDERS: Family Provider Family Medicine; PCP Family Medicine; Referring Provider Internal Medicine Hematology & Oncology; Visit Provider Internal Medicine Hematology & Oncology
DX: Z51.11 Encounter for antineoplastic chemotherapy (principal); C56.1 Malignant neoplasm of right ovary
CPT/HCPCS: 96376; 96413; J7050; A4216; J2405; J3490; J9351

== ENCOUNTER → 2018-09-11 13:01 | Outpatient (CLI) | payer OTHER, SELFPAY ==
[2018-09-09 13:02] VITALS: BMI 32.6
[2018-09-11 13:35] VITALS: BP 130/82; PULSE 67; RESP 16; TEMP 36.2; O2SAT 99; BMI 32.6
== END ==
PROVIDERS: Family Provider Family Medicine; PCP Family Medicine; Referring Provider Internal Medicine Hematology & Oncology; Visit Provider Internal Medicine Hematology & Oncology
DX: Z51.11 Encounter for antineoplastic chemotherapy (principal); C56.1 Malignant neoplasm of right ovary; C56.2 Malignant neoplasm of left ovary
CPT/HCPCS: 96367; 96413; J7050; A4216; J2405; J3490; J9351

== ENCOUNTER → 2018-09-12 13:03 | Outpatient (CLI) | payer OTHER, SELFPAY ==
[2018-09-11 13:35] VITALS: BMI 32.6
[2018-09-12 13:09] VITALS: BP 158/74; PULSE 69; RESP 16; TEMP 36.1; O2SAT 98; BMI 32.6
== END ==
PROVIDERS: Family Provider Family Medicine; PCP Family Medicine; Referring Provider Internal Medicine Hematology & Oncology; Visit Provider Internal Medicine Hematology & Oncology
DX: Z51.11 Encounter for antineoplastic chemotherapy (principal); C56.1 Malignant neoplasm of right ovary; C56.2 Malignant neoplasm of left ovary
CPT/HCPCS: 96367; 96413; J7050; A4216; J1453; J2405; J3490; J9351

== ENCOUNTER → 2018-09-13 12:04 | Outpatient (CLI) | payer OTHER, SELFPAY ==
[2018-09-12 13:09] VITALS: BMI 32.6
[2018-09-13 12:15] VITALS: BP 130/84; PULSE 67; RESP 16; TEMP 36.4; O2SAT 97; BMI 31.4
== END ==
PROVIDERS: Family Provider Family Medicine; PCP Family Medicine; Referring Provider Internal Medicine Hematology & Oncology; Visit Provider Internal Medicine Hematology & Oncology
DX: Z51.11 Encounter for antineoplastic chemotherapy (principal); C56.1 Malignant neoplasm of right ovary; C56.2 Malignant neoplasm of left ovary
CPT/HCPCS: 96367; 96413; J7050; A4216; J2405; J3490; J9351

== ENCOUNTER → 2018-09-26 13:21 | Outpatient (CLI) | payer OTHER, SELFPAY ==
[2018-09-17 13:49] VITALS: BMI 32.4
--- NOTE | 2018-09-26 13:24 | BI_ITS ---
MAMMOGRAPHY - BILATERAL DIAGNOSTIC REASON FOR EXAM: Female, 63 years old. Left upper breast thickening. PERTINENT HISTORY: History of ovarian cancer. Prior bilateral breast reduction surgery. TECHNIQUE: Digital bilateral breast charanjit (3D mammographic acquisition) in the CC and MLO projections. 2-D mediolateral oblique (MLO) and craniocaudad (CC) views of both breasts were obtained. CAD: Full Field Digital Mammography with Computer Added Detection was performed. COMPARISON: Comparison is made with prior study dated August 06, 2014 and May 29, 2013. FINDINGS: Breast Composition: The breasts are almost entirely fatty. There are no dominant masses or suspicious calcifications. There is a stable 2.3 cm x 1.2 cm calcified nodule in the mid slightly medial aspect of the right breast. This is unchanged. Stable small bilateral benign-appearing axillary lymph nodes. No other significant abnormalities are identified. There has been no significant change since the prior study. BI/DIAG MAMM W/CAD, BILAT IMPRESSION: Stable bilateral diagnostic mammogram. One year follow-up recommended. (A) ASSESSMENT CATEGORY: BIRADS Category 2: Benign. A letter regarding these results will be sent to the patient by the facility within 30 days. Approximately 10% of breast cancers are not detected by mammography. A normal mammogram should not delay biopsy of a clinically suspicious abnormality. Electronically Signed: Shahbaz Munguia MD at 8:58 EST Tel [phone], Service support ,
--- NOTE | 2018-09-26 13:24 | US_ITS ---
STUDY: ULTRASOUND BREAST - LEFT REASON FOR EXAM: Female, 63 years old. Palpable lump left breast. TECHNIQUE: Axial and longitudinal images of the LEFT breast were performed with a high resolution ultrasound transducer. COMPARISON: Comparison is made with prior mammogram done earlier today. FINDINGS: LEFT Breast: The upper outer quadrant of the left breast was examined by ultrasound. There is homogeneous fibroglandular tissue. No solid or cystic mass lesion is seen. US/Breast Limited Unilateral IMPRESSION: Unremarkable sonogram of the left breast. ASSESSMENT CATEGORY: BIRADS Category 1: Negative. A letter regarding these results will be sent to the patient by the facility within 30 days. Electronically Signed: Shahbaz Munguia MD at 15:18 EST Tel [phone], Service support ,
--- OUTSIDE RECORDS SUMMARY | 2018-11-21 17:51 | XMS RPT_ITS ---
:1955 Author Organization [place] Support Name Relationship Address Phone JOSÉ MIGUEL CUEVA Unavailable [address] + [place] [address] R Unavailable Unavailable Unavailable JOSÉ MIGUEL CUEVA Unavailable [address] + [place] [address] R Unavailable Unavailable Unavailable JOSÉ MIGUEL CUEVA Unavailable [address] + [place] [address] R Unavailable Unavailable Unavailable JOSÉ MIGUEL CUEVA Unavailable [address] + [place] [address] R Unavailable Unavailable Unavailable JOSÉ MIGUEL CUEVA Unavailable [address] + [place] [address] R Unavailable Unavailable Unavailable JOSÉ MIGUEL CUEVA Unavailable [address] + [place] [address] R Unavailable Unavailable Unavailable JOSÉ MIGUEL CUEVA Unavailable [address] + [place] [address] R Unavailable Unavailable Unavailable JOSÉ MIGUEL CUEVA Unavailable [address] + [place] [address] R Unavailable Unavailable Unavailable JOSÉ MIGUEL CUEVA Unavailable [address] + [place] [address] R Unavailable Unavailable Unavailable JOSÉ MIGUEL CUEVA Unavailable [address] + [place] [address] R Unavailable Unavailable Unavailable JOSÉ MIGUEL CUEVA Unavailable [address] + [place] [address] R Unavailable Unavailable Unavailable JOSÉ MIGUEL CUEVA Unavailable [address] + [place] [address] R Unavailable Unavailable Unavailable MAIBACH, JOSÉ MIGUEL Unavailable [address] + [place] [address] R Unavailable Unavailable Unavailable MAIBACH, JOSÉ MIGUEL Unavailable [address] + [place] [address] R Unavailable Unavailable Unavailable MAIBACH, JOSÉ MIGUEL Unavailable [address] + [place] [address] R Unavailable Unavailable Unavailable MAIBACH, JOSÉ MIGUEL Unavailable [address] + [place] [address] R Unavailable Unavailable Unavailable MAIBACH, JOSÉ MIGUEL Unavailable [address] + [place] [address] R Unavailable Unavailable Unavailable MAIBACH, JOSÉ MIGUEL Unavailable [address] + [place] [address] R Unavailable Unavailable Unavailable MAIBACH, JOSÉ MIGUEL Unavailable [address] + [place] [address] R Unavailable Unavailable Unavailable MAIBACH, JOSÉ MIGUEL Unavailable [address] + [place] [address] R Unavailable Unavailable Unavailable MAIBACH, JOSÉ MIGUEL Unavailable [address] + [place] [address] R Unavailable Unavailable Unavailable MAIBACH, JOSÉ MIGUEL Unavailable [address] + [place] [address] R Unavailable Unavailable Unavailable MAIBACH, JOSÉ MIGUEL Unavailable [address] + [place] [address] R Unavailable Unavailable Unavailable MAIBACH, JOSÉ MIGUEL Unavailable [address] + [place] [address] R Unavailable Unavailable Unavailable MAIBACH, JOSÉ MIGUEL Unavailable [address] + [place] [address] R Unavailable Unavailable Unavailable MAIBACH, JOSÉ MIGUEL Unavailable [address] + [place] [address] R Unavailable Unavailable Unavailable MAIBACH, JOSÉ MIGUEL Unavailable [address] + [place] [address] R Unavailable Unavailable Unavailable MAIBACH, JOSÉ MIGUEL Unavailable [address] + [place] [address] R Unavailable Unavailable Unavailable MAIBACH JOSÉ MIGUEL Unavailable [address] + [place] [address] R Unavailable Unavailable Unavailable OSCAR CUEVAEN Unavailable [address] + [place] [address] R Unavailable Unavailable Unavailable MAYAMILCH, JOSÉ MIGUEL Unavailable [address] + [place] [address] R Unavailable Unavailable Unavailable MAIBACH, JOSÉ MIGUEL Unavailable [address] + [place] [address] R Unavailable Unavailable Unavailable MAIBACH, JOSÉ MIGUEL Unavailable [address] + [place] [address] R Unavailable Unavailable Unavailable MAIBACH, JOSÉ MIGUEL Unavailable [address] + [place] [address] R Unavailable Unavailable Unavailable ANAY JOSÉ MIGUEL Unavailable [address] + [place] [address] R Unavailable Unavailable Unavailable YVROSEIBACH, JOSÉ MIGUEL Unavailable [address] + [place] [address] R Unavailable Unavailable Unavailable ANAY JOSÉ MIGUEL Unavailable [address] + [place] [address] R Unavailable Unavailable Unavailable SIDNEYCH, JOSÉ MIGUEL Unavailable [address] + [place] [address] R Unavailable Unavailable Unavailable ANAY JOSÉ MIGUEL Unavailable [address] + [place] [address] R Unavailable Unavailable Unavailable YVROSEIBACH, JOSÉ MIGUEL Unavailable [address] + [place] [address] R Unavailable Unavailable Unavailable YVROSEIBACH, JOSÉ MIGUEL Unavailable [address] + [place] [address] R Unavailable Unavailable Unavailable YVROSEIBACH, JOSÉ MIGUEL Unavailable [address] + [place] [address] R Unavailable Unavailable Unavailable SIDNEYCH, JOSÉ MIGUEL Unavailable [address] + [place] [address] R Unavailable Unavailable Unavailable ANAY, JOSÉ MIGUEL Unavailable [address] + [place] [address] R Unavailable Unavailable Unavailable ANAY JOSÉ MIGUEL Unavailable [address] + [place] [address] R Unavailable Unavailable Unavailable MAIBACH JOSÉ MIGUEL Unavailable [address] + [place] [address] R Unavailable Unavailable Unavailable SIDNEYCH, JOSÉ MIGUEL Unavailable [address] + [place] [address] R Unavailable Unavailable Unavailable MAIBACH, JOSÉ MIGUEL Unavailable [address] + [place] [address] R Unavailable Unavailable Unavailable MAIBACH, JOSÉ MIGUEL Unavailable [address] + [place] [address] R Unavailable Unavailable Unavailable SIDNEYCH JOSÉ MIGUEL Unavailable [address] + [place] [address] R Unavailable Unavailable Unavailable ANAY JOSÉ MIGUEL Unavailable [address] + [place] [address] R Unavailable Unavailable Unavailable OSCAR CUEVAEN Unavailable [address] + [place] [address] R Unavailable Unavailable Unavailable OSCAR CUEVAEN Unavailable [address] + [place] [address] R Unavailable Unavailable Unavailable OSCAR CUEVAEN Unavailable [address] + [place] [address] R Unavailable Unavailable Unavailable SIDNEYCH JOSÉ MIGUEL Unavailable [address] + [place] [address] R Unavailable Unavailable Unavailable ANAY JOSÉ MIGUEL Unavailable [address] + [place] [address] R Unavailable Unavailable Unavailable YVROSEIBACH, JOSÉ MIGUEL Unavailable [address] + [place] [address] R Unavailable Unavailable Unavailable YVRSOEIBACHOSCAREN Unavailable [address] + [place] [address] R Unavailable Unavailable Unavailable ANAY, JOSÉ MIGUEL Unavailable [address] + [place] [address] R Unavailable Unavailable Unavailable MAIBACH, JOSÉ MIGUEL Unavailable [address] + [place] [address] R Unavailable Unavailable Unavailable MAIBACH, JOSÉ MIGUEL Unavailable [address] + [place] [address] R Unavailable Unavailable Unavailable MAIBACH, JOSÉ MIGUEL Unavailable [address] + [place] [address] R Unavailable Unavailable Unavailable MAIBACH, JOSÉ MIGUEL Unavailable [address] + [place] [address] R Unavailable Unavailable Unavailable MAIBACH, JOSÉ MIGUEL Unavailable [address] + [place] [address] R Unavailable Unavailable Unavailable MAIBACH, JOSÉ MIGUEL Unavailable [address] + [place] [address] R Unavailable Unavailable Unavailable MAIBACH, JOSÉ MIGUEL Unavailable [address] + [place] [address] R Unavailable Unavailable Unavailable MAIBACH, JOSÉ MIGUEL Unavailable [address] + [place] [address] R Unavailable Unavailable Unavailable MAIBACH, JOSÉ MIGUEL Unavailable [address] + [place] [address] R Unavailable Unavailable Unavailable MAIBACH, JOSÉ MIGUEL Unavailable [address] + [place] [address] R Unavailable Unavailable Unavailable MAIBACH, JOSÉ MIGUEL Unavailable [address] + [place] [address] R Unavailable Unavailable Unavailable MAIBACH, JOSÉ MIGUEL Unavailable [address] + [place] [address] R Unavailable Unavailable Unavailable MAIBACH, JOSÉ MIGUEL Unavailable [address] + [place] [address] R Unavailable Unavailable Unavailable MAIBACH, JOSÉ MIGUEL Unavailable [address] + [place] [address] R Unavailable Unavailable Unavailable MAIBACH, JOSÉ MIGUEL Unavailable [address] + [place] [address] R Unavailable Unavailable Unavailable MAIBACH, JOSÉ MIGUEL Unavailable [address] + [place] [address] R Unavailable Unavailable Unavailable JOSÉ MIGUEL CUEVA Unavailable [address] + [place] [address] [facility] Unavailable [address] + [place] [address] JOSÉ MIGUEL CUEVA Unavailable [address] + [place] [address] [facility] Unavailable [address] + [place] [address] JOSÉ MIGUEL CUEVA Unavailable [address] + [place] [address] [facility] Unavailable [address] + [place] [address] JOSÉ MIGUEL CUEVA Unavailable [address] + [place] [address] [facility] Unavailable [address] + [place] [address] JOSÉ MIGUEL CUEVA Unavailable [address] + [place] [address] [facility] Unavailable [address] + [place] [address] JOSÉ MIGUEL CUEVA Unavailable [address] + [place] [address] [facility] Unavailable [address] + [place] [address] JOSÉ MIGUEL CUEVA Unavailable [address] + [place] [address] [facility] Unavailable [address] + [place] [address] JOSÉ MIGUEL CUEVA Unavailable [address] + [place] [address] [facility] Unavailable [address] + [place] [address] JOSÉ MIGUEL CUEVA Unavailable [address] + [place] [address] [facility] Unavailable [address] + [place] [address] JOSÉ MIGUEL CUEVA Unavailable [address] + [place] [address] [facility] Unavailable [address] + [place] [address] Care Team Providers Name Role Phone COLLEEN, OMAR Lucia Attending Unavailable MASCI, OMAR Lucia Referring Unavailable MASCI, OMAR Lucia Attending Unavailable MASCI, OMAR Lucia Referring Unavailable MASCI, OMAR Lucia Attending Unavailable MASCI, OMAR Lucia Referring Unavailable MASCI, OMAR Lucia Attending Unavailable MASCI, OMAR Lucia Referring Unavailable MASCI, OMAR Lucia Attending Unavailable MASCI, OMAR Lucia Referring Unavailable MASCI, OMAR Lucia Attending Unavailable MASCI, OMAR Lucia Referring Unavailable MASCI, OMAR Lucia Attending Unavailable MASCI, OMAR Lucia Referring Unavailable MICHENERCATIE Attending Unavailable MICHENERCATIE Referring Unavailable THELMA, TERRANCE Attending Unavailable MASCI, OMAR A Referring Unavailable MASCI, OMAR A Referring Unavailable MASCI, OMAR Lucia Referring Unavailable VIVIEN KHAN (MORTGAGE LOAN REVIEWER) Referring Unavailable THELMA, TERRANCE Referring Unavailable MASCI, OMAR Lucia Attending Unavailable MASCI, OMAR Lucia Referring Unavailable MASCI, OMAR Lucia Attending Unavailable MASCI, OMAR Lucia Referring Unavailable MASCI, OMAR Lucia Attending Unavailable MASCI, OMAR Lucia Referring Unavailable Masci, Omar Attending Unavailable Masci, Omar Referring Unavailable [place], [place] [facility] Unavailable Masci, Omar Attending Unavailable Masci, Omar Referring Unavailable [place], [place] [facility] Unavailable Masci, Omar Attending Unavailable Masci, Omar Referring Unavailable [place], [place] [facility] Unavailable Masci, Omar Attending Unavailable Masci, Omar Referring Unavailable [place], [place] [facility] Unavailable Masci, Omar Attending Unavailable Masci, Omar Referring Unavailable [place], [place] [facility] Unavailable Masci, Omar Attending Unavailable Masci, Omar Referring Unavailable [place], [place] [facility] Unavailable Masci, Omar Attending Unavailable Masci, Omar Referring Unavailable [place], [place] [facility] Unavailable Masci, Omar Attending Unavailable Masci, Omar Referring Unavailable [place], [place] [facility] Unavailable Masci, Omar Attending Unavailable Masci, Omar Referring Unavailable [place], [place] [facility] Unavailable Masci, Omar Attending Unavailable Masci, Omar Referring Unavailable [place], [place] [facility] Unavailable Masci, Omar Attending Unavailable Masci, Omar Referring Unavailable [place], [place] [facility] Unavailable Masci, Omar Attending Unavailable Masci, Omar Referring Unavailable [place], [place] [facility] Unavailable Marcanthony, Marcy Attending Unavailable [facility], [facility] Referring Unavailable Marcanthony, Marcy Attending Unavailable Marcanthony, Marcy Referring Unavailable [place], [place] [facility] Unavailable Masci, Omar Attending Unavailable Masci, Omar Referring Unavailable [place], [place] [facility] Unavailable Masci, Omar Attending Unavailable Masci, Omar Referring Unavailable [place], [place] [facility] Unavailable Masci, Omar Attending Unavailable Masci, Omar Referring Unavailable [place], [place] [facility] Unavailable Masci, Omar Attending Unavailable Masci, Omar Referring Unavailable [place], [place] [facility] Unavailable Masci, Omar Attending Unavailable Masci, Omar Referring Unavailable [place], [place] [facility] Unavailable Masci, Omar Attending Unavailable [place], [place] [facility] Unavailable Masci, Omar Attending Unavailable [place], [place] [facility] Unavailable Masci, Omar Attending Unavailable [place], [place] [facility] Unavailable Masci, Omar Attending Unavailable [place], [place] [facility] Unavailable Masci, Omar Attending Unavailable [place], [place] [facility] Unavailable Masci, Omar Referring Unavailable Masci, Omar Attending Unavailable Masci, Omar Referring Unavailable [place], [place] [facility] Unavailable Masci, Omar Attending Unavailable Masci, Omar Referring Unavailable [place], [place] [facility] Unavailable Masci, Omar Attending Unavailable Masci, Omar Referring Unavailable [place], [place] [facility] Unavailable Masci, Omar Attending Unavailable Masci, Omar Referring Unavailable [place], [place] [facility] Unavailable Julio Hung Attending Unavailable Masci, Omar Referring Unavailable Masci, Omar Attending Unavailable Masci, Omar Referring Unavailable [place], [place] [facility] Unavailable Masci, Omar Attending Unavailable Masci, Omar Referring Unavailable [place], [place] [facility] Unavailable Masci, Omar Attending Unavailable Masci, Omar Referring Unavailable [place], [place] [facility] Unavailable Masci, Omar Attending Unavailable Masci, Omar Referring Unavailable [place], [place] [facility] Unavailable Masci, Omar Attending Unavailable Masci, Omar Referring Unavailable [place], [place] [facility] Unavailable Masci, Omar Attending Unavailable Masci, Omar Referring Unavailable [place], [place] [facility] Unavailable Masci, Omar Attending Unavailable Masci, Omar Referring Unavailable [place], [place] [facility] Unavailable Masci, Omar Attending Unavailable Masci, Omar Referring Unavailable [place], [place] [facility] Unavailable Masci, Omar Attending Unavailable Masci, Omar Referring Unavailable [place], [place] [facility] Unavailable Masci, Omar Attending Unavailable Masci, Omar Referring Unavailable [place], [place] [facility] Unavailable Masci, Omar Attending Unavailable Masci, Omar Referring Unavailable [place], [place] [facility] Unavailable Masci, Omar Attending Unavailable Masci, Omar Referring Unavailable [place], [place] [facility] Unavailable Masci, Omar Attending Unavailable Masci, Omar Referring Unavailable [place], [place] [facility] Unavailable Masci, Omar Attending Unavailable Masci, Omar Referring Unavailable [facility], [place] [facility] Unavailable Masci, Omar Attending Unavailable Masci, Omar Referring Unavailable [place], [place] [facility] Unavailable Masci, Omar Attending Unavailable Masci, Omar Referring Unavailable [facility], [place] [facility] Unavailable Masci, Omar Attending Unavailable Masci, Omar Referring Unavailable [facility], [place] [facility] Unavailable Masci, Omar Attending Unavailable Masci, Omar Referring Unavailable [facility], [place] [facility] Unavailable Masci, Omar Attending Unavailable Masci, Omar Referring Unavailable [facility], [place] [facility] Unavailable Masci, Omar Attending Unavailable Masci, Omar Referring Unavailable [facility], [place] [facility] Unavailable Masci, Omar Attending Unavailable Masci, Omar Referring Unavailable [facility], [place] [facility] Unavailable Masci, Omar Attending Unavailable Masci, Omar Referring Unavailable [facility], [place] [facility] Unavailable Masci, Omar Attending Unavailable Masci, Omar Referring Unavailable [facility], [place] [facility] Unavailable Masci, Omar Attending Unavailable Masci, Omar Referring Unavailable [facility], [place] [facility] Unavailable Masci, Omar Attending Unavailable Masci, Omar Referring Unavailable [facility], [place] [facility] Unavailable Masci, Omar Attending Unavailable Masci, Omar Referring Unavailable [facility] Primary Care Unavailable Masci, Omar Attending Unavailable Masci, Omar Referring Unavailable [facility] Primary Care Unavailable Masci, Omar Attending Unavailable Masci, Omar Referring Unavailable [facility], [place] [facility] Unavailable Masci, Omar Attending Unavailable Masci, Omar Referring Unavailable [facility], [place] [facility] Unavailable Masci, Omar Attending Unavailable Masci, Omar Referring Unavailable [facility], [place] [facility] Unavailable Masci, Omar Attending Unavailable Masci, Omar Referring Unavailable [facility], [place] [facility] Unavailable Masci, Omar Attending Unavailable Masci, Omar Referring Unavailable [facility], [place] [facility] Unavailable Masci, Omar Attending Unavailable Masci, Omar Referring Unavailable [place], [facility] Care Unavailable Masci, Omar Attending Unavailable Masci, Omar Referring Unavailable [facility], [place] [facility] Unavailable Masci, Omar Attending Unavailable Masci, Omar Referring Unavailable [facility], [facility] Care Unavailable Masci, Omar Attending Unavailable Masci, Omar Referring Unavailable [facility], [facility] Care Unavailable Masci, Omar Attending Unavailable Masci, Omar Referring Unavailable [facility], [place] [facility] Unavailable Masci, Omar Attending Unavailable Masci, Omar Referring Unavailable [facility] Care Unavailable Masci, Omar Attending Unavailable Masci, Omar Referring Unavailable [facility], [facility] Care Unavailable Masci, Omar Attending Unavailable Masci, Omar Referring Unavailable [facility], [facility] Care Unavailable Masci, Omar Attending Unavailable Masci, Omar Referring Unavailable [facility] Care Unavailable Masci, Omar Attending Unavailable Masci, Omar Referring Unavailable [facility], [facility] Care Unavailable Masci, Omar Attending Unavailable Masci, Omar Referring Unavailable [facility], [place] [facility] Unavailable Masci, Omar Attending Unavailable Masci, Omar Referring Unavailable [facility] Care Unavailable Masci, Omar Attending Unavailable Masci, Omar Referring Unavailable [facility], [facility] Care Unavailable Masci, Omar Attending Unavailable Masci, Omar Referring Unavailable [facility] Care Unavailable Masci, Omar Attending Unavailable Masci, Omar Referring Unavailable [facility] Care Unavailable Masci, Omar Attending Unavailable Masci, Omar Referring Unavailable [facility] Primary Care Unavailable Masci, Omar Attending Unavailable Masci, Omar Referring Unavailable [facility] Primary Care Unavailable Masci, Omar Attending Unavailable Masci, Oamr Referring Unavailable [facility] Primary Care Unavailable Masci, Omar Attending Unavailable Masci, Omar Referring Unavailable [facility] Primary Care Unavailable Masci, Omar Attending Unavailable Masci, Omar Referring Unavailable [facility] Primary Care Unavailable Masci, Omar Attending Unavailable Masci, Omar Referring Unavailable [facility] Care Unavailable Masci, Omar Attending Unavailable Masci, Omar Referring Unavailable [facility] Care Unavailable Masci, Omar Attending Unavailable Masci, Omar Referring Unavailable [facility] Primary Care Unavailable Masci, Omar Attending Unavailable Masci, Omar Referring Unavailable [place], [facility] Primary Care Unavailable PROBLEMS PROBLEMS DATE TYPE CONDITION / CODE ATTENDING STATUS SOURCE 09/17/2018 Unknown N63.20 - Unspecified Marcanthony, Active [place] lump in the left [facility]cy [facility] breast, unspecified Hospital quadrant / Repository N63.20(ICD-10) 08/29/2018 Unknown 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 / C56.1(ICD-10) Hospital Repository 07/04/2018 Active Nausea with vomiting, OMAR GROSS Active [facility] unspecified / Clinic Main R11.2(ICD-10) [place] Repository 07/04/2018 Active Adverse effect of OMAR GROSS Active [facility] antineoplastic and Clinic Main immunosuppressive [place] drugs, initial Repository encounter / T45.1X5A(ICD-10) 02/15/2016 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 / Clinic Main C56.1(ICD-10) [place] Repository 02/15/2016 Active 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 / Clinic Main C56.2(ICD-10) [place] Repository 04/24/2018 Unknown Z51.11 - Encounter for Omar Gross Active [place] antineoplastic [facility] chemotherapy / Hospital Z51.11(ICD-10) Repository 04/24/2018 Unknown C56.9 - Malignant Omar Gross Active [place] neoplasm of Community unspecified ovary / Hospital C56.9(ICD-10) Repository 11/06/2017 Unknown 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 N New/unexplained onset of 3 or more stools in past 24 hrs? Y Has pt arrived? Y Cdiff-Molecular Normal Reference Range = Negative C. Diff DNA Negative- No toxigenic C. Diff DNA Detected NAAT METHOD Testing was performed using nucleic acid amplification Performed By: #### [id number] #### [facility] [address] [place], [id number] CBC W/DIFF, AUTOMATED Collected: 10/07/2018 Status: F Source: [place] 9:49 AM [facility] [place] TYPE CODE TESTS RESULT OUT OF RANGE REFERENCE UNITS LAB L100.1000 4.4-11.0 K/mm3 Low WBC 4.2 LAB L100.1200 4.2-5.4 M/mm3 Low RBC 3.35 LAB L100.1300 12.0-15.0 g/dl Low HGB 9.8 LAB L100.1400 37-47 % Low HCT 31.8 LAB L100.1500 81-99 fL Normal MCV 94.9 LAB L100.1600 27.0-32.0 pg Normal MCH 29.3 LAB L100.1700 32-36 g/gl Low MCHC 30.8 LAB L100.1810 11.6-14.6 % High RDW CV 18.0 LAB L100.1820 35.1-43.9 fl High RDW SD 61.9 LAB L100.1900 150-450 K/mm3 High PLT 546 LAB L100.2000 6.2-12.0 fl Normal MPV 9.6 LAB L100.2100 47-70 % Normal NEUT% 54.1 LAB L100.2200 19-41 % Normal LY% 30.3 LAB L100.2300 0-10 % High MONO% 13.7 LAB L100.2400 0-5 % Normal EO% 1.2 LAB L100.2500 0-1 % Normal BASO% 0.5 LAB L100.2550 0.0-0.9 % Normal IM GRAN % 0.200 Result Comment: IG% - Immature Granulocytes (promyelocytes, myelocytes and metamyelocytes) > 1% indicates that a LEFT SHIFT is Present. LAB L100.2620 2.0-7.7 X10 3/uL Normal Absolute Neut 2.3 LAB L100.2720 0.83-4.51 X10 3/ul Normal Absolute Lymph 1.28 Performed By: #### L100.0100 #### [facility] [address] [place], [address] COMPREHENSIVE METABOLIC Collected: 10/07/2018 Status: F Source: [facility] 9:49 AM [facility] [place] TYPE CODE TESTS RESULT OUT OF RANGE REFERENCE UNITS LAB L501.0100 74-106 mg/dL Normal GLU 94 Result Comment: Please note revised GLUCOSE reference range effective 2017. LAB L501.1000 7-18 mg/dL Normal BUN 13 LAB L501.1100 0.55-1.02 mg/dL Normal CREAT,SERUM 0.75 Result Comment: The validity of the calculated GFR AND GFRAA in patients over 70 years has not been determined. Clinical correlation is essential. LAB L501.1110 >60 mL/min Normal EST GFR 84 Result Comment: Non- GFR Calc LAB L501.1115 >60 mL/min Normal EST GFR - AA 101 Result Comment: GFR Calc LAB L501.1300 10-20 RATIO Normal BUN/CRE 17.4 LAB L501.1500 6.4-8.2 g/dL T Normal PROT 7.4 LAB L501.1800 3.2-5.0 g/dL Normal ALB 3.6 LAB L501.1950 2.2-4.2 g/dL Normal GLOB 3.8 LAB L501.2000 0.9-2.4 RATIO Normal A/G 0.9 LAB L501.2200 8.5-10.1 mg/dL CA Normal 8.9 LAB L501.4100 15-37 U/L Normal AST 27 LAB L501.4305 45-117 U/L Normal ALK P 115 LAB L501.4405 13-56 U/L Normal ALT 50 LAB L501.4600 0.20-1.00 mg/dL T Normal BILI 0.30 LAB L501.5300 136-145 mmol/L NA Normal 143 LAB L501.5600 3.5-5.1 mmol/L K Normal 3.9 LAB L501.5900 98-107 mmol/L CL Normal 104 LAB L501.6100 21.0-32.0 mmol/L Normal CO2 31.0 LAB L501.6200 5-15 Normal GAP 8 Performed By: #### L500.4050 #### [facility] [address] [place], [address] CANCER ANTIGEN 125 Collected: 10/07/2018 Status: F Source: [facility] 9:49 AM [facility] [place] TYPE CODE TESTS RESULT OUT OF RANGE REFERENCE UNITS LAB L3100.5000 0.0-38.1 U/mL High CA125 90.0 2303 Result Comment: Meghna ECLIA methodology Performed at: - [facility] [address] [id number] [place] Carpenter: Carlo Bass PhD, Phone: [phone] Performed By: #### L3100.5000 #### [facility] (refer to report for specific site) refer to report for address and phone number BREAST LIMITED Observed: 09/26/2018 Status: F Source: [facility] 1:24 PM [facility] [place] [facility] Imaging Services [address] [place] [address] [place] [address] Breast Limited Unilateral MR#: [id number] Acct: [id number] Name: IVA CUEVA Rep #: [id number] : 1955 F 63 From: Shahbaz Munguia MD PCP: Peter Deras MD Status: REG CLI Study: Breast Limited Unilateral Date of Exam: 09/26/18 Exam# [id number] Ordering Dr: Marcy Bruno MD STUDY: ULTRASOUND BREAST - LEFT REASON FOR EXAM: Female, 63 years old. Palpable lump left breast. TECHNIQUE: Axial and longitudinal images of the LEFT breast were performed with a high resolution ultrasound transducer. COMPARISON: Comparison is made with prior mammogram done earlier today. FINDINGS: LEFT Breast: The upper outer quadrant of the left breast was examined by ultrasound. There is homogeneous fibroglandular tissue. No solid or cystic mass lesion is seen. US/Breast Limited Unilateral IMPRESSION: Unremarkable sonogram of the left breast. ASSESSMENT CATEGORY: BIRADS Category 1: Negative. A letter regarding these results will be sent to the patient by the facility within 30 days. Electronically Signed: Shahbaz Munguia MD at 15:18 EST Tel [phone], Service support , CC: Peter Deras MD; Marcy Bruno MD Help Desk Representative: Signed DIAG MAMM W/CAD, Observed: 09/26/2018 Status: F Source: [facility] 1:24 PM [facility] [place] [facility] Imaging Services [address] [place] [address] DIAG MAMM W/CAD, BILAT MR#: [id number] Acct: [id number] Name: IVA CUEVA Rep #: [id number] : 1955 F 63 From: Shahbaz Munguia MD PCP: Peter Deras MD Status: REG CLI Study: DIAG MAMM W/CAD, BILAT Date of Exam: 09/26/18 Exam# [id number] Ordering Dr: Marcy Bruno MD MAMMOGRAPHY - BILATERAL DIAGNOSTIC REASON FOR EXAM: Female, 63 years old. Left upper breast thickening. PERTINENT HISTORY: History of ovarian cancer. Prior bilateral breast reduction surgery. TECHNIQUE: Digital bilateral breast charanjit (3D mammographic acquisition) in the CC and MLO projections. 2-D mediolateral oblique (MLO) and craniocaudad (CC) views of both breasts were obtained. CAD: Full Field Digital Mammography with Computer Added Detection was performed. COMPARISON: Comparison is made with prior study dated August 06, 2014 and May 29, 2013. FINDINGS: Breast Composition: The breasts are almost entirely fatty. There are no dominant masses or suspicious calcifications. There is a stable 2.3 cm x 1.2 cm calcified nodule in the mid slightly medial aspect of the right breast. This is unchanged. Stable small bilateral benign-appearing axillary lymph nodes. No other significant abnormalities are identified. There has been no significant change since the prior study. BI/DIAG MAMM W/CAD, BILAT IMPRESSION: Stable bilateral diagnostic mammogram. One year follow-up recommended. (A) ASSESSMENT CATEGORY: BIRADS Category 2: Benign. A letter regarding these results will be sent to the patient by the facility within 30 days. Approximately 10% of breast cancers are not detected by mammography. A normal mammogram should not delay biopsy of a clinically suspicious abnormality. Electronically Signed: Shahbaz Munguia MD at 8:58 EST Tel [phone], Service support , CC: Peter Deras MD; Marcy Bruno MD Help Desk Representative: Signed ALLERGIST/IMMUNOLOGIST PHYSICIAN OFFICE VISIT Observed: 09/26/2018 Status: F Source: [facility] 6:01 AM [facility] [address] [place] [address] OFFICE VISIT Date of Service: 09/17/18 MR#: [id number] Acct: [id number] Name: IVA CUEVA Rep #: [id number] : 1955 Provider: Marcy Bruno MD Age/Sex: 63/F [place] [facility] [place]: Signed Intake Vital Signs09/17/18 Height 5 ft 4 in 09/17/18 Weight: 189 lb 2 oz 09/17/18 Body Mass Index (BMI) 32.4 09/17/18 Blood Pressure 122/80 H Intake Visit Reasons: ANNUAL Chief Complaint: est annual Chronometer Repairer Required: No Is patient in pain?: No Allergies acetaminophen [From Percocet] Adverse Reaction (Verified 09/17/18 13:50) Itching codeine Adverse Reaction (Verified 09/17/18 13:50) Itching hydrocodone bitartrate [From Vicodin] Adverse Reaction (Verified 09/17/18 13:50) Itching oxycodone [From Percocet] Adverse Reaction (Verified 09/17/18 13:50) Itching tramadol HCl [From Ultram] Adverse Reaction (Verified 09/17/18 13:50) Itching Medications Ambien 5 mg PO PRN PRN 03/26/14 [History Confirmed 09/17/18] Gabapentin [Neurontin] 900 mg PO QHS 03/26/14 [History Confirmed 09/17/18] Omeprazole [Prilosec] 20 mg PO PRN PRN 03/26/14 [History Confirmed 09/17/18] Multivitamins,Ther W-Minerals [Multivitamin With Minerals] 1 tab PO DAILY 06/16/15 [History Confirmed 09/17/18] Nabumetone [Relafen] 500 mg PO BID 01/13/16 [History Confirmed 09/17/18] Magnesium Oxide [Mag-Ox 400] 400 mg PO DAILY 07/06/17 [History Confirmed 09/17/18] Olanzapine [Zyprexa] 10 mg PO QHS 11/15/17 [History Confirmed 09/17/18] Melatonin 10 mg PO QHS 12/24/17 [History Confirmed 09/17/18] Tbo-Filgrastim [Granix] 480 mcg SQ DAILY 02/13/18 [History Confirmed 09/17/18] Verapamil HCl [Verapamil ER] 240 mg PO QHS 05/21/18 [History Confirmed 09/17/18] Is last menstrual period known: No Post menopausal: No Patient : No : No PFSH Medical History Ovarian cancer (Acute) Primary cancer of peritoneum (Acute) Hypertension (Chronic) Surgical History H/O: knee surgery (Acute) History of appendectomy (Acute) History of foot surgery (Acute) S/P LORI (total abdominal hysterectomy) (Acute) Family History Mother Breast cancer Social History Smoking Status: Never smoker alcohol intake: current details: social substance use type: does not use caffeine: Yes what type of physical activity do you participate in: walking seatbelt use: always do you feel safe at home: Yes additional social history: José 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 DatName GA/WeeksOutcome Route [facility] Nadeem Rasheed LgAnestheNYel LocaProviderFOB e ht en ia tn Unknown 1989 Derrick miguel a Unknown 1991 Leandro HPI ANNUAL: Details: IVA CUEVA is a 63 year old who presents for annual exam. 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 she denies signficiant symptoms at this time Last PAP: 6 years History of abnormal PAP: no Last mammogram: due History of abnormal mammogram: Colon cancer screening: up to date Other preventative health care screenings: per pcp Female Reproductive History Questions: Metorrhagia: No, Sexually active: No, Dyspareunia: No Menopausal Symptoms: No hot flashes, No night sweats, No weight change, No mood changes, No difficulty concentrating, No sleep problems, No change in libido ROS Const Constitutional: Reports as per HPI; denies poor appetite, fatigue, increased appetite, weight gain, weight loss or night sweats Cardio Card: Denies chest pain Resp Resp: Denies dyspnea or cough GI GI: Reports as per HPI; denies bloating, abdominal pain, constipation, vomiting or nausea : Reports as per HPI and other; denies blood in urine, vaginal odor, vaginal itching, vaginal dryness, vaginal discharge, urinary urgency, urinary incontinence, urinary frequency, pelvic pain, painful urination, difficulty urinating, prolapse symptoms, nipple discharge or hot flashes Skin Skin/Breast: Denies nipple discharge, breast pain, breast skin changes, breast lump or changing lesions Psych Psych: Denies difficulty concentrating or change in sex drive Exam Const General: cooperative, comfortable, no acute distress [facility] Head: normal to inspection, normocephalic, other (absence of hair sec chemo) Ears: hearing grossly normal bilaterally, external ears normal Nose: external nose normal Face and sinus: normal facial exam Neck Neck: normal visual inspection, full ROM, no lymphadenopathy Thyroid: thyroid normal Chest Chest palpation AND inspection: normal inspection of the chest Breast inspection: normal inspection of the breasts, normal inspection of the axillae Breast palpation: no axillary lymphadenopathy, abnormal palpation of the breast (left upper outer denisty increased nonspecific) Resp Effort AND Inspection: normal respiratory effort GI Inspection: normal to inspection, non-distended Palpation: no guarding, soft, no hepatosplenomegaly General: bladder normal to palpation External Female Exam: normal external appearance, normal appearance of the urethra, no lesions Urethra: normal appearance of the urethra, normal palpation Speculum Exam - Vagina: normal appearance of the vagina, normal vaginal discharge Bimanual Exam- Vagina AND Uterus: bladder normal to palpation Bimanual Exam- Adnexa, other: normal adnexae, no adnexal masses, adnexae non-tender Skin General: no rashes or lesions noted Neuro General: alert, moves all extremities, no focal motor deficits Extrem General: no pedal edema, normal to inspection Psych Appearance: grossly normal Mental Status: mental status grossly normal Affect: normal affect Speech and Movement: speech and movement normal Attitude: cooperative Assessment AND Plan Problems 1. Encounter for gynecological examination with abnormal finding Z01.411 2. Left breast mass N63.20 imaging ordered 3. Malignant neoplasm of both ovaries C56.1; C56.2 Orders Orders: Coding Level of Care Code Off vis,est,prev 40-64yrs Diagnoses Encounter for gynecological examination with abnormal finding Z01.411 Gynecological examination findings: abnormal findings PRESENT Left breast mass N63.20 Malignant neoplasm of both ovaries C56.1; C56.2 Laterality: bilateral 09/26/18 0601 <Electronically signed by Marcy Bruno MD> Date Marcy Bruno MD Cosigner Signature: Date (if applicable) CC: PROGRESS Observed: 08/30/2018 Status: COMPLETED Source: [facility] 3:15 PM [facility] REPOSITORY O ID: [id number] Author: Omar Gross Service: (none) Author Type: Physician Type: Progress Notes Filed: 09/02/2018 9:16 AM Note Text: Diagnosis: 1) Ovarian cancer. ? HPI: The patient is a 63 year old female who presented to her PCP prior to a trip to [facility] for vaccinations. She reported that she was having lower pelvic pain and bloating as well as lower leg cramping. She had a BMP done and her LFTs were elevated so her PCP ordered an ultrasound of the liver. The ultrasound showed some mild ascites and a right lower quadrant mass. She had a CT scan of the chest/abdomen/pelvis which showed multiple pelvic masses and enlarged lymph nodes. A pelvic ultrasound was also done. Her CA125 was elevated at 2342 U/mL (CEA was WNL). She had a colonoscopy on 10/28/2012 which showed some microscopic colitis and hemorrhoids but was otherwise negative. Random biopsies were obtained and the pathology demonstrated a non-small cell carcinoma. Immunostains were positive for CK 7, CK 8, estrogen receptors. Specimen was negative for CK 20. ? PRIOR TREATMENT: 1) Carboplatin/paclitaxel x3 cycles. 2) 01/09/2013 - Exploratory laparotomy, total abdominal hysterectomy, bilateral salpingo- oophorectomy, omentectomy, pelvic peritoneal stripping, excision of peritoneal nodules, left pelvic lymph node biopsy, argon beam ablation of peritoneal implants with Dr. Avery, and interval debulking surgery for initial resection of ovarian cancer. 3) Received one post operative cycle carbo/Taxol 01/27/13. 4) Was hospitalized on 02/05/13 for small bowel obstruction. It was relieved with medical/conservative management. 5) Carbo with weekly Taxol x 6 cycles, completed 05/27/13. 6) [place]/carbo/cassandra x cycles for biopsy proven metastatic disease (intrahepatic metastases--Had been asymptomatic, but was noted to have an increase in CA-125. CT scan of the abdomen and pelvis was obtained to further evaluate. The study demonstrated 2 lesions within the liver that were suspicious for metastatic disease. She underwent a CT- guided biopsy. 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 7) Bevacizumab. 8) Carbo/Taxol x6 cycles completed 11/09/2016. 9) Doxil. PD following 5 cycles. ? Current therapy: 1) Avastin/Topotecan. ? Presents for ongoing oncologic management. ? Interim history: Muscle cramping significantly diminished after rotating her antihypertensive medication to verapamil. She has no complaints today. She was off treatment for about 6 weeks. She feels well. Prior to her most recent treatment, she had a hemoglobin of 8.8 and was getting markedly short of breath with exertion. She received 1 unit red blood cell transfusion and she said that helped her significantly. She is not having any abdominal pain, bloating or distention. No episodes of jaundice. Stable symptoms of neuropathy manifested as numbness on the bottoms of both feet. Appetite normal. Right ankle pain doing much better. No unusual bleeding or Bruising. Medications and allergies as below personally reviewed by me today. Any changes documented in appropriate section. ? ROS: Constitutional: Denies episodes night sweats. Neuro: Denies KLEIN, vertigo, dizziness and imbalance. HEENT: No recent change in voice, vision or hearing. Resp: Denies wheeze and hemoptysis. CVS: No exertional chest pain/pressure or tightness. No PND or orthopnea. No lower extremity swelling or edema. GI: Denies dysgeusia. Denies symptoms of stomatitis. Denies dysphagia and odynophagia. : Denies dysuria or gross hematuria. Endo: Denies hot flashes. Denies polyuria and polydipsia. Denies heat and cold intolerance. Musculoskeletal: See above. Derm: Denies rash. Denies diffuse pruritis. Heme: See above. Psych: Normal mood. ? PHYSICAL EXAM: Vitals: Blood pressure 159/85, pulse 83, temperature 36.4 ?C (97.5 ?F), temperature source Oral, weight 86.2 kg (190 lb), last menstrual period 12/10/2011. Well-appearing and in no acute distress. EYES: Sclerae are anicteric bilaterally. NECK: Supple. LYMPHATIC: There is no palpable cervical, supraclavicular adenopathy. RESPIRATORY: Inspiratory breath sounds are of normal intensity in all rodriguez. No rales, wheezes or rhonchi. CARDIOVASCULAR: Rhythm is regular. Normal intensity S1/S2. There is no gallop or murmur. ABDOMEN: The abdomen is nondistended. There is no organomegaly. No tenderness. No fluid wave. Extremities: Free of edema. SKIN: No jaundice or rash. No petechiae. NEUROLOGIC: rand maker II-XII are grossly intact. No focal motor weakness. ? ASSESSMENT/PLAN: (C56.1, C56.2) Cancer of both ovaries (HCC) (primary encounter diagnosis) (C78.7) Liver metastases (HCC) KPS is 90%. Biopsy-proven recurrence. Bill [place] refractory? -She is tolerating topotecan well thus far except for anemia and thrombocytopenia. Leukopenia stable with Neulasta injection after chemotherapy treatment -Somatic BRCA mutation analysis negative--see scanned [facility] report 01/15/2018. -Tolerating Avastin except for hypertension but that is now well controlled with verapamil. -CEA 125 stable and she remains asymptomatic. Therefore we decided to continue the same treatment course for now. We will repeat CT scans in several months and if the lesion is more amenable to biopsy, that will be pursued in the interest of PDL 1 testing. Plan: -Okay for next cycle of topotecan/bevacizumab 09/09. -Will have labs/treatment next on 10/07 without OV prior. -Neupogen injection daily for 10 days following cycle. ? (I15.8) Other secondary hypertension Assessment: -HTN from previous bevacizumab. -Responded well to lisinopril, but had cough. -BP responding very nicely to increase dose of verapamil 240 mg once a day. Serendipitous side effect of relief from muscle cramps. Plan: -Continue verapamil at current dose 240 mg once a day. Omar Gross DO CNOVSP Observed: 08/30/2018 Status: COMPLETED Source: [facility] 3:10 PM [facility] REPOSITORY Visit (SP) Office (PRISCILLA) IVA CUEVA ([id number]) 1955 F Date Time Provider Department 08/30/18 3:10 PM OMAR GROSS During your visit today, we recorded the following information about you: Temperature Pulse Blood pressure Weight 97.5 degrees 83/minute 159/85 86.2 kg Omar Gross DO 09/02/2018 9:16 AM Signed Diagnosis: 1) Ovarian cancer. ? HPI: The patient is a 63 year old female who presented to her PCP prior to a trip to [facility] for vaccinations. She reported that she was having lower pelvic pain and bloating as well as lower leg cramping. She had a BMP done and her LFTs were elevated so her PCP ordered an ultrasound of the liver. The ultrasound showed some mild ascites and a right lower quadrant mass. She had a CT scan of the chest/abdomen/pelvis which showed multiple pelvic masses and enlarged lymph nodes. A pelvic ultrasound was also done. Her CA125 was elevated at 2342 U/mL (CEA was WNL). She had a colonoscopy on 10/28/2012 which showed some microscopic colitis and hemorrhoids but was otherwise negative. Random biopsies were obtained and the pathology demonstrated a non- small cell carcinoma. Immunostains were positive for CK 7, CK 8, estrogen receptors. Specimen was negative for CK 20. ? PRIOR TREATMENT: 1) Carboplatin/paclitaxel x3 cycles. 2) 01/09/2013 - Exploratory laparotomy, total abdominal hysterectomy, bilateral salpingo- oophorectomy, omentectomy, pelvic peritoneal stripping, excision of peritoneal nodules, left pelvic lymph node biopsy, argon beam ablation of peritoneal implants with Dr. Avery, and interval debulking surgery for initial resection of ovarian cancer. 3) Received one post operative cycle carbo/Taxol 01/27/13. 4) Was hospitalized on 02/05/13 for small bowel obstruction. It was relieved with medical/conservative management. 5) Carbo with weekly Taxol x 6 cycles, completed 05/27/13. 6) [place]/carbo/cassandra x cycles for biopsy proven metastatic disease (intrahepatic metastases--Had been asymptomatic, but was noted to have an increase in CA-125. CT scan of the abdomen and pelvis was obtained to further evaluate. The study demonstrated 2 lesions within the liver that were suspicious for metastatic disease. She underwent a CT-guided biopsy. 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 7) Bevacizumab. 8) Carbo/Taxol x6 cycles completed 11/09/2016. 9) Doxil. PD following 5 cycles. ? Current therapy: 1) Avastin/Topotecan. ? Presents for ongoing oncologic management. ? Interim history: Muscle cramping significantly diminished after rotating her antihypertensive medication to verapamil. She has no complaints today. She was off treatment for about 6 weeks. She feels well. Prior to her most recent treatment, she had a hemoglobin of 8.8 and was getting markedly short of breath with exertion. She received 1 unit red blood cell transfusion and she said that helped her significantly. She is not having any abdominal pain, bloating or distention. No episodes of jaundice. Stable symptoms of neuropathy manifested as numbness on the bottoms of both feet. Appetite normal. Right ankle pain doing much better. No unusual bleeding or Bruising. Medications and allergies as below personally reviewed by me today. Any changes documented in appropriate section. ? ROS: Constitutional: Denies episodes night sweats. Neuro: Denies KLEIN, vertigo, dizziness and imbalance. HEENT: No recent change in voice, vision or hearing. Resp: Denies wheeze and hemoptysis. CVS: No exertional chest pain/pressure or tightness. No PND or orthopnea. No lower extremity swelling or edema. GI: Denies dysgeusia. Denies symptoms of stomatitis. Denies dysphagia and odynophagia. : Denies dysuria or gross hematuria. Endo: Denies hot flashes. Denies polyuria and polydipsia. Denies heat and cold intolerance. Musculoskeletal: See above. Derm: Denies rash. Denies diffuse pruritis. Heme: See above. Psych: Normal mood. ? PHYSICAL EXAM: Vitals: Blood pressure 159/85, pulse 83, temperature 36.4 ?C (97.5 ?F), temperature source Oral, weight 86.2 kg (190 lb), last menstrual period 12/10/2011. Well-appearing and in no acute distress. EYES: Sclerae are anicteric bilaterally. NECK: Supple. LYMPHATIC: There is no palpable cervical, supraclavicular adenopathy. RESPIRATORY: Inspiratory breath sounds are of normal intensity in all rodriguez. No rales, wheezes or rhonchi. CARDIOVASCULAR: Rhythm is regular. Normal intensity S1/S2. There is no gallop or murmur. ABDOMEN: The abdomen is nondistended. There is no organomegaly. No tenderness. No fluid wave. Extremities: Free of edema. SKIN: No jaundice or rash. No petechiae. NEUROLOGIC: rand maker II-XII are grossly intact. No focal motor weakness. ? ASSESSMENT/PLAN: (C56.1, C56.2) Cancer of both ovaries (HCC) (primary encounter diagnosis) (C78.7) Liver metastases (HCC) KPS is 90%. Biopsy-proven recurrence. Bill [place] refractory? -She is tolerating topotecan well thus far except for anemia and thrombocytopenia. Leukopenia stable with Neulasta injection after chemotherapy treatment -Somatic BRCA mutation analysis negative--see scanned [facility] report 01/15/2018. -Tolerating Avastin except for hypertension but that is now well controlled with verapamil. -CEA 125 stable and she remains asymptomatic. Therefore we decided to continue the same treatment course for now. We will repeat CT scans in several months and if the lesion is more amenable to biopsy, that will be pursued in the interest of PDL 1 testing. Plan: -Okay for next cycle of topotecan/bevacizumab 09/09. -Will have labs/treatment next on 10/07 without OV prior. -Neupogen injection daily for 10 days following cycle. ? (I15.8) Other secondary hypertension Assessment: -HTN from previous bevacizumab. -Responded well to lisinopril, but had cough. -BP responding very nicely to increase dose of verapamil 240 mg once a day. Serendipitous side effect of relief from muscle cramps. Plan: -Continue verapamil at current dose 240 mg once a day. Omar Gross DO Referring Provider: OMAR GROSS [[id number]] Allergies As of Date: 08/30/2018 Noted Allergy Reaction CODEINE 05/03/2007 5 - Intolerance PERCOCET (OXYCODONE-ACETAMINOPHEN)06/29/2015 9 - Itching Seasonal [Other] 06/05/2007 ULTRAM (TRAMADOL HCL) 01/08/2013 9 - Itching VICODIN (HYDROCODONE-ACETAMINOPHE*08/26/2007 9 - Itching Date Reviewed: 08/30/2018 Reviewed by: Miracle Engel, RN, RN - Fully Assessed Reason for Visit: Established Patient [175] Primary Visit Diagnosis:Cancer of both ovaries (HCC) [C56.1, C56.2] Other Visit Diagnoses:Ovarian cancer, unspecified laterality (HCC) [C56.9] Carcinomatosis (HCC) [C80.0] Order(s):tbo-filgrastim (GRANIX) 480 mcg/0.8 mL syrgInject 480 mcg subcutaneously once daily for 7 days.Disp: 7 SyringeRfl: 5 zolpidem (AMBIEN) 5 mg tabletTake 1 tablet by mouth at bedtime as needed for up to 90 days.Disp: 30 tabletRfl: 2 gabapentin (NEURONTIN) 300 mg capsuleTake 3 capsules by mouth three times daily.Disp: 540 capsuleRfl: 3 Follow-up and Disposition History Recorded Prescriptions as of 08/30/2018 Sig: TBO-FILGRASTIM 480 MCG/0.8 ML* Inject 480 mcg subcutaneously* ZOLPIDEM 5 MG TABLET Take 1 tablet by mouth at bed* GABAPENTIN 300 MG CAPSULE Take 3 capsules by mouth thre* OMEPRAZOLE 40 MG CAPSULE,BASSEM* TAKE 1 CAPSULE BY MOUTH ONCE * VERAPAMIL ER 120 MG 24 HR CAP* Take 2 capsules by mouth debora* ONDANSETRON HCL 8 MG TABLET Take 1 tablet by mouth every * LIDOCAINE-PRILOCAINE 2.5 %-2.* Apply 1 application to affect* OLANZAPINE 10 MG TABLET Take 1 tablet by mouth daily * Patient taking differently: Take 10 mg by mouth daily at * MELATONIN 10 MG TABLET Take 1 tablet by mouth at bed* CYCLOBENZAPRINE 10 MG TABLET Take 1 tablet by mouth every * PROMETHAZINE 25 MG TABLET Take 1 tablet by mouth every * LORATADINE 10 MG TABLET Take 10 mg by mouth once debora* DOCUSATE SODIUM 100 MG CAPSULE Take 100 mg by mouth twice da* POLYETHYLENE GLYCOL 3350 17 G* Take 17 g by mouth once daily. NABUMETONE 500 MG TABLET Take 2 tablets by mouth twice* Patient not taking: Reported on 06/13/2018 NAPROXEN SODIUM 220 MG TABLET Take 220 mg by mouth as neede* Problem List As Of Date 08/30/2018 Noted Resolved Calculus of gallbladder with other cholecystiti*INVALID FOR*09/22/2016 DIARRHEA SPECIFIED ORGANISM NEC [A08.8] INVALID FOR*09/22/2016 Sebaceous cyst [L72.3] INVALID FOR*09/22/2016 Carcinomatosis [C80.0] INVALID FOR*01/02/2014 Ovarian cancer (HCC) [C56.9] INVALID FOR*09/22/2016 Vaginal atrophy [N95.2] INVALID FOR*09/22/2016 Climacteric [N95.1] INVALID FOR*09/22/2016 Anorectal pain [K62.89] INVALID FOR*09/22/2016 Hemorrhoid [K64.9] INVALID FOR*09/22/2016 Anal fissure [K60.2] INVALID FOR*09/22/2016 Cancer of both ovaries (HCC) [C56.1, C56.2] INVALID FOR* Other secondary hypertension [I15.8] INVALID FOR* Muscle cramps [R25.2] INVALID FOR* Transfusion history [Z92.89] INVALID FOR* More... Encounter Status:Closed by OMAR GROSS DO on 09/02/18 COMPREHENSIVE METABOLIC Collected: 08/26/2018 Status: F Source: [place] PROF[place] 4:19 PM [facility] [place] TYPE CODE TESTS RESULT OUT OF RANGE REFERENCE UNITS LAB L501.0100 74-106 mg/dL Normal GLU 98 Result Comment: Please note revised GLUCOSE reference range effective 2017. LAB L501.1000 7-18 mg/dL Normal BUN 16 LAB L501.1100 0.55-1.02 mg/dL Normal CREAT,SERUM 0.91 Result Comment: The validity of the calculated GFR AND GFRAA in patients over 70 years has not been determined. Clinical correlation is essential. LAB L501.1110 >60 mL/min Normal EST GFR 67 Result Comment: Non- GFR Calc LAB L501.1115 >60 mL/min Normal EST GFR - AA 81 Result Comment: GFR Calc LAB L501.1300 10-20 RATIO Normal BUN/CRE 17.6 LAB L501.1500 6.4-8.2 g/dL T Normal PROT 7.8 LAB L501.1800 3.2-5.0 g/dL Normal ALB 3.7 LAB L501.1950 2.2-4.2 g/dL Normal GLOB 4.1 LAB L501.2000 0.9-2.4 RATIO Normal A/G 0.9 LAB L501.2200 8.5-10.1 mg/dL CA Normal 9.3 LAB L501.4100 15-37 U/L Normal AST 18 LAB L501.4305 45-117 U/L High ALK P 123 LAB L501.4405 13-56 U/L Normal ALT 40 LAB L501.4600 0.20-1.00 mg/dL T Normal BILI 0.30 LAB L501.5300 136-145 mmol/L NA Normal 142 LAB L501.5600 3.5-5.1 mmol/L K Normal 4.3 LAB L501.5900 98-107 mmol/L CL Normal 104 LAB L501.6100 21.0-32.0 mmol/L Normal CO2 27.0 LAB L501.6200 5-15 Normal GAP 11 Performed By: #### L500.4050 #### [facility] [address] [place], [place], [address] CBC W/DIFF, AUTOMATED Collected: 08/26/2018 Status: F Source: [place] 4:19 PM [facility] [place] TYPE CODE TESTS RESULT OUT OF RANGE REFERENCE UNITS LAB L100.1000 4.4-11.0 K/mm3 Normal WBC 6.3 LAB L100.1200 4.2-5.4 M/mm3 Low RBC 3.44 LAB L100.1300 12.0-15.0 g/dl Low HGB 10.6 LAB L100.1400 37-47 % Low HCT 33.5 LAB L100.1500 81-99 fL Normal MCV 97.4 LAB L100.1600 27.0-32.0 pg Normal MCH 30.8 LAB L100.1700 32-36 g/gl Low MCHC 31.6 LAB L100.1810 11.6-14.6 % High RDW CV 19.3 LAB L100.1820 35.1-43.9 fl High RDW SD 66.1 LAB L100.1900 150-450 K/mm3 High PLT 519 LAB L100.2000 6.2-12.0 fl Normal MPV 9.9 LAB L100.2100 47-70 % Normal NEUT% 59.6 LAB L100.2200 19-41 % Normal LY% 29.3 LAB L100.2300 0-10 % Normal MONO% 8.7 LAB L100.2400 0-5 % Normal EO% 1.4 LAB L100.2500 0-1 % Normal BASO% 0.8 LAB L100.2550 0.0-0.9 % Normal IM GRAN % 0.200 Result Comment: IG% - Immature Granulocytes (promyelocytes, myelocytes and metamyelocytes) > 1% indicates that a LEFT SHIFT is Present. LAB L100.2620 2.0-7.7 X10 3/uL Absolute Neut Normal 3.8 LAB L100.2720 0.83-4.51 X10 3/ul Absolute Lymph Normal 1.84 LAB L100.4500 SMEAR COMMENT Normal SCANNED LAB L100.7300 ANISO Normal 1+ LAB L100.7500 POLYCHROMASIA Normal RARE Performed By: #### L100.0100 #### [facility] [address] [place], [address] CANCER ANTIGEN 125 Collected: 08/26/2018 Status: F Source: [place] 4:19 PM [facility] [place] TYPE CODE TESTS RESULT OUT OF RANGE REFERENCE UNITS LAB L3100.5000 0.0-38.1 U/mL High CA125 59.5 2303 Result Comment: Meghna ECLIA methodology Performed at: CB - [facility] [address] [id number] [place]: Carlo Bass PhD, Phone: [phone] Performed By: #### L3100.5000 #### [facility] (refer to report for specific site) refer to report for address and phone number HOSP Observed: 08/12/2018 Status: COMPLETED Source: [place] 12:00 AM [facility] REPOSITORY Patient Update (HEMAWS) IVA CUEVA ([id number]) 1955 F Date Time Provider Department 08/12/18 OMAR GROSS During your visit today, we recorded the following information about you: Joshua Woods, RN, RN 08/12/2018 3:58 PM Signed Jacinta Tariq from [employer] prior auth called to verify pt's dose of Avastin. Pt's weight has changed and wanted to check what dose of Avastin pt should be getting. Jane checked with Dr Gross and pt should be receiving 15mg/kg (currently 88kg which would be a dose of 1320mg). Jacinta Tariq notified of this change and new order written and faxed to [employer] and Jane faxed new order to [facility] as well. Reference number is [id number] and Jacinta Tariq's fax number is [phone]. Reference number written on fax cover sheet per her request. Allergies As of Date: 08/12/2018 Noted Allergy Reaction CODEINE 05/03/2007 5 - Intolerance PERCOCET (OXYCODONE-ACETAMINOPHEN)06/29/2015 9 - Itching Seasonal [Other] 06/05/2007 ULTRAM (TRAMADOL HCL) 01/08/2013 9 - Itching VICODIN (HYDROCODONE-ACETAMINOPHE*08/26/2007 9 - Itching Date Reviewed: 07/04/2018 Reviewed by: Miracle Engel, RN, RN - Fully Assessed Reason for Visit: chemo dose [Other] Prescriptions as of 08/12/2018 Sig: OMEPRAZOLE 40 MG CAPSULE,BASSEM* TAKE 1 CAPSULE BY MOUTH ONCE * VERAPAMIL ER 120 MG 24 HR CAP* Take 2 capsules by mouth debora* TBO-FILGRASTIM 480 MCG/0.8 ML* Inject 480 mcg subcutaneously* ZOLPIDEM 5 MG TABLET Take 1 tablet by mouth at bed* ONDANSETRON HCL 8 MG TABLET Take 1 tablet by mouth every * NABUMETONE 500 MG TABLET Take 2 tablets by mouth twice* Patient not taking: Reported on 06/13/2018 LIDOCAINE-PRILOCAINE 2.5 %-2.* Apply 1 application to affect* AMOXICILLIN 500 MG TABLET Take 500 mg by mouth four sharyn* OLANZAPINE 10 MG TABLET Take 1 tablet by mouth daily * Patient taking differently: Take 10 mg by mouth daily at * MELATONIN 10 MG TABLET Take 1 tablet by mouth at bed* CYCLOBENZAPRINE 10 MG TABLET Take 1 tablet by mouth every * PROMETHAZINE 25 MG TABLET Take 1 tablet by mouth every * MAGNESIUM OXIDE 400 MG (241.3* Take 400 mg by mouth once nilda* GABAPENTIN 300 MG CAPSULE Take 3 capsules by mouth thre* Patient taking differently: Take 300 mg by mouth daily at* HYDROCODONE-HOMATROPINE 5 MG-* Take 5 mL by mouth every 4 ho* DEXAMETHASONE 4 MG TABLET Take 1 tablet twice the day p* ONDANSETRON HCL 8 MG TABLET Take 1 tablet by mouth every * FLUTICASONE 50 MCG/ACTUATION * Use 1 Gulliver in each nostril o* ERGOCALCIFEROL (VITAMIN D2) 5* Take 2 capsules a week for 8 * LORATADINE 10 MG TABLET Take 10 mg by mouth once debora* DOCUSATE SODIUM 100 MG CAPSULE Take 100 mg by mouth twice da* POLYETHYLENE GLYCOL 3350 17 G* Take 17 g by mouth once daily. NAPROXEN SODIUM 220 MG TABLET Take 220 mg by mouth as neede* SENOKOT ORAL Take by mouth once daily. MULTIVITAMIN TABLET Take 1 tablet by mouth once d* Problem List As Of Date 08/12/2018 Noted Resolved Calculus of gallbladder with other cholecystiti*INVALID FOR*09/22/2016 DIARRHEA SPECIFIED ORGANISM NEC [A08.8] INVALID FOR*09/22/2016 Sebaceous cyst [L72.3] INVALID FOR*09/22/2016 Carcinomatosis [C80.0] INVALID FOR*01/02/2014 Ovarian cancer (HCC) [C56.9] INVALID FOR*09/22/2016 Vaginal atrophy [N95.2] INVALID FOR*09/22/2016 Climacteric [N95.1] INVALID FOR*09/22/2016 Anorectal pain [K62.89] INVALID FOR*09/22/2016 Hemorrhoid [K64.9] INVALID FOR*09/22/2016 Anal fissure [K60.2] INVALID FOR*09/22/2016 Cancer of both ovaries (HCC) [C56.1, C56.2] INVALID FOR* Other secondary hypertension [I15.8] INVALID FOR* Muscle cramps [R25.2] INVALID FOR* Visit Notes: >> Joshua (Rn) TOMÁS Woods Mon Aug 12, 2018 3:52 PM Status: Signed Jacinta Tariq from [facility] prior auth called to verify pt's dose of Avastin. Pt's weight has changed and wanted to check what dose of Avastin pt should be getting. Jane checked with Dr Gross and pt should be receiving 15mg/kg (currently 88kg which would be a dose of 1320mg). Jacinta Tariq notified of this change and new order written and faxed to [facility] and Jane faxed new order to [facility] as well. Reference number is [id number] and Jacinta Tariq's fax number is [phone]. Reference number written on fax cover sheet per her request. Encounter Status:Closed by JOSHUA WOODS on 08/12/18 TYPE AND SCREEN Collected: 08/05/2018 Status: F Source: [place] 12:22 PM [facility] [place] Order Comment: Reason for Type AND Screen/Red Cells: ANEMIA TYPE CODE TESTS RESULT OUT OF RANGE REFERENCE UNITS LAB B10.0800 O Normal BLOOD TYPE GEL NEGATIVE LAB B100.4000 Normal Antibody NEGATIVE Screen Performed By: #### B101.7450 #### [facility] [address] [place], [address] Collected: 08/05/2018 Status: F Source: [place] 12:22 PM [facility] [place] TYPE CODE TESTS RESULT OUT OF REFERENCE UNITS RANGE LAB U100.0000 [id number] TRANSFUSED PRODUCT: T AND S with Crossmatch, Red Cells COUNT: 1 Performed By: #### U100.0000 #### [facility] - refer to report for specific site CBC W/DIFF, AUTOMATED Collected: 08/05/2018 Status: F Source: [place] 12:10 PM [facility] [place] TYPE CODE TESTS RESULT OUT OF RANGE REFERENCE UNITS LAB L100.1000 4.4-11.0 K/mm3 Low WBC 3.2 LAB L100.1200 4.2-5.4 M/mm3 Low RBC 2.97 LAB L100.1300 12.0-15.0 g/dl Low HGB 8.8 LAB L100.1400 37-47 % Low HCT 27.3 LAB L100.1500 81-99 fL Normal MCV 91.9 LAB L100.1600 27.0-32.0 pg Normal MCH 29.6 LAB L100.1700 32-36 g/gl Normal MCHC 32.2 LAB L100.1810 11.6-14.6 % High RDW CV 18.8 LAB L100.1820 35.1-43.9 fl High RDW SD 62.5 LAB L100.1900 150-450 K/mm3 Normal PLT 317 LAB L100.2000 6.2-12.0 fl Normal MPV 9.4 LAB L100.2100 47-70 % Normal NEUT% 64.4 LAB L100.2200 19-41 % Normal LY% 30.8 LAB L100.2300 0-10 % Normal MONO% 2.2 LAB L100.2400 0-5 % Normal EO% 0.6 LAB L100.2500 0-1 % Normal BASO% 1.0 LAB L100.2550 0.0-0.9 % High IM GRAN % 1.000 Result Comment: IG% - Immature Granulocytes (promyelocytes, myelocytes and metamyelocytes) > 1% indicates that a LEFT SHIFT is Present. LAB L100.2620 2.0-7.7 X10 3/uL Normal Absolute Neut 2.0 LAB L100.2720 0.83-4.51 X10 3/ul Normal Absolute Lymph 0.97 Performed By: #### L100.0100 #### [facility] [address] [place], [place], [id number] COMPREHENSIVE METABOLIC Collected: 08/05/2018 Status: F Source: [facility] 12:10 PM [facility] [place] TYPE CODE TESTS RESULT OUT OF RANGE REFERENCE UNITS LAB L501.0100 74-106 mg/dL Normal GLU 88 Result Comment: Please note revised GLUCOSE reference range effective 2017. LAB L501.1000 7-18 mg/dL High BUN 19 LAB L501.1100 0.55-1.02 mg/dL Normal CREAT,SERUM 0.72 Result Comment: The validity of the calculated GFR AND GFRAA in patients over 70 years has not been determined. Clinical correlation is essential. LAB L501.1110 >60 mL/min Normal EST GFR 88 Result Comment: Non- GFR Calc LAB L501.1115 >60 mL/min Normal EST GFR - AA 106 Result Comment: GFR Calc LAB L501.1300 10-20 RATIO High BUN/CRE 26.5 LAB L501.1500 6.4-8.2 g/dL T Normal PROT 7.6 LAB L501.1800 3.2-5.0 g/dL Normal ALB 3.7 LAB L501.1950 2.2-4.2 g/dL Normal GLOB 3.9 LAB L501.2000 0.9-2.4 RATIO Normal A/G 0.9 LAB L501.2200 8.5-10.1 mg/dL CA Normal 8.9 LAB L501.4100 15-37 U/L Normal AST 19 LAB L501.4305 45-117 U/L High ALK P 123 LAB L501.4405 13-56 U/L Normal ALT 42 LAB L501.4600 0.20-1.00 mg/dL T Normal BILI 0.50 LAB L501.5300 136-145 mmol/L NA Normal 139 LAB L501.5600 3.5-5.1 mmol/L K Normal 4.5 LAB L501.5900 98-107 mmol/L CL Normal 104 LAB L501.6100 21.0-32.0 mmol/L Normal CO2 27.0 LAB L501.6200 5-15 Normal GAP 8 Performed By: #### L500.4050 #### [facility] [address] [place], [address] CBC W/DIFF, AUTOMATED Collected: 07/29/2018 Status: F Source: [place] 1:57 PM [facility] [place] TYPE CODE TESTS RESULT OUT OF RANGE REFERENCE UNITS LAB L100.1000 4.4-11.0 K/mm3 Normal WBC 8.8 LAB L100.1200 4.2-5.4 M/mm3 Low RBC 3.00 LAB L100.1300 12.0-15.0 g/dl Low HGB 8.9 LAB L100.1400 37-47 % Low HCT 27.9 LAB L100.1500 81-99 fL Normal MCV 93.0 LAB L100.1600 27.0-32.0 pg Normal MCH 29.7 LAB L100.1700 32-36 g/gl Low MCHC 31.9 LAB L100.1810 11.6-14.6 % High RDW CV 19.7 LAB L100.1820 35.1-43.9 fl High RDW SD 65.1 LAB L100.1900 150-450 K/mm3 Normal PLT 361 LAB L100.2000 6.2-12.0 fl Normal MPV 9.4 LAB L100.2100 47-70 % High NEUT% 73.3 LAB L100.2200 19-41 % Low LY% 18.8 LAB L100.2300 0-10 % Normal MONO% 5.2 LAB L100.2400 0-5 % Normal EO% 1.7 LAB L100.2500 0-1 % Normal BASO% 0.5 LAB L100.2550 0.0-0.9 % Normal IM GRAN % 0.500 Result Comment: IG% - Immature Granulocytes (promyelocytes, myelocytes and metamyelocytes) > 1% indicates that a LEFT SHIFT is Present. LAB L100.2620 2.0-7.7 X10 3/uL Normal Absolute Neut 6.4 LAB L100.2720 0.83-4.51 X10 3/ul Normal Absolute Lymph 1.65 LAB L100.4500 Normal SMEAR COMMENT SCANNED LAB L100.7300 Normal ANISO 2+ Performed By: #### L100.0100 #### [facility] [address] [place], [address] CBC W/DIFF, AUTOMATED Collected: 07/23/2018 Status: C Source: [place] 2:30 PM [facility] [place] TYPE CODE TESTS RESULT OUT OF RANGE REFERENCE UNITS LAB L100.1000 4.4-11.0 K/mm3 Normal WBC 5.6 LAB L100.1200 4.2-5.4 M/mm3 Low RBC 3.10 LAB L100.1300 12.0-15.0 g/dl Low HGB 9.3 LAB L100.1400 37-47 % Low HCT 28.7 LAB L100.1500 81-99 fL Normal MCV 92.6 LAB L100.1600 27.0-32.0 pg Normal MCH 30.0 LAB L100.1700 32-36 g/gl Normal MCHC 32.4 LAB L100.1810 11.6-14.6 % High RDW CV 18.2 LAB L100.1820 35.1-43.9 fl High RDW SD 56.7 LAB L100.1900 150-450 K/mm3 Low 81 PLT LAB L100.2000 6.2-12.0 fl Normal MPV 10.7 LAB L100.3100 MANUAL DIFF Normal CELLS COUNTED 100 LAB L100.3200 47-70 % 55 Normal SEGS LAB L100.3300 0-5 % High 7 BAND LAB L100.3400 0-1 % High 2 META LAB L100.3500 0-0 High 3 MYELO LAB L100.3600 0-0 High 1 PROMYELO LAB L100.3800 19-41 % 22 Normal LYMPH LAB L100.3900 0-10 % 4 Normal MONOCYTE LAB L100.4000 0-5 % High 6 EOS LAB L100.2620 2.0-7.7 X10 3/uL Normal Absolute Neut 3.5 LAB L100.2720 0.83-4.51 X10 3/ul Normal Absolute Lymph 1.24 LAB L100.9900 Normal PATH REV Reviewed Result Comment: Neutrophilic left shift. Normocytic anemia. Thrombocytopenia. Clinical correlation necessary. Jc Snyder M.D. 07/24/18 AMENDED REPORT 07/24/18 1456 PATH REV previously reported as: Iman gunderson Performed By: #### L100.0100 #### [facility] [address] [place], [address] COMPREHENSIVE METABOLIC Collected: 07/23/2018 Status: F Source: [place] PROFIL 2:30 PM [facility] [place] TYPE CODE TESTS RESULT OUT OF RANGE REFERENCE UNITS LAB L501.0100 74-106 mg/dL High GLU 115 Result Comment: Fasting Glucose result from 100 to 125 mg/dL suggests IMPAIRED HOMEOSTASIS per A.D.A. criteria. Please note revised GLUCOSE reference range effective 2017. LAB L501.1000 7-18 mg/dL Normal BUN 11 LAB L501.1100 0.55-1.02 mg/dL Normal CREAT,SERUM 0.89 Result Comment: The validity of the calculated GFR AND GFRAA in patients over 70 years has not been determined. Clinical correlation is essential. LAB L501.1110 >60 mL/min Normal EST GFR 69 Result Comment: Non- GFR Calc LAB L501.1115 >60 mL/min Normal EST GFR - AA 83 Result Comment: GFR Calc LAB L501.1300 10-20 RATIO Normal BUN/CRE 12.4 LAB L501.1500 6.4-8.2 g/dL T Normal PROT 7.7 LAB L501.1800 3.2-5.0 g/dL Normal ALB 3.9 LAB L501.1950 2.2-4.2 g/dL Normal GLOB 3.8 LAB L501.2000 0.9-2.4 RATIO Normal A/G 1.0 LAB L501.2200 8.5-10.1 mg/dL CA Normal 8.7 LAB L501.4100 15-37 U/L Normal AST 19 LAB L501.4305 45-117 U/L High ALK P 135 LAB L501.4405 13-56 U/L Normal ALT 39 LAB L501.4600 0.20-1.00 mg/dL T Normal BILI 0.20 LAB L501.5300 136-145 mmol/L NA Normal 141 LAB L501.5600 3.5-5.1 mmol/L K Normal 3.8 LAB L501.5900 98-107 mmol/L CL Normal 106 LAB L501.6100 21.0-32.0 mmol/L Normal CO2 28.0 LAB L501.6200 5-15 Normal GAP 7 Performed By: #### L500.4050 #### [facility] [address] [place], [place], [id number] CANCER ANTIGEN 125 Collected: 07/23/2018 Status: F Source: [place] 2:30 PM [facility] [place] TYPE CODE TESTS RESULT OUT OF RANGE REFERENCE UNITS LAB L3100.5000 0.0-38.1 U/mL High CA125 59.4 2303 Result Comment: Meghna ECLIA methodology Performed at: - [facility] [address] [id number] [place]: Carlo Bass PhD, Phone: [phone] Performed By: #### L3100.5000 #### [facility] (refer to report for specific site) refer to report for address and phone number CNPN Observed: 07/23/2018 Status: COMPLETED Source: [place] 12:00 AM [facility] REPOSITORY Telephone (HEMAWS) IVA CUEVA ([id number]) 1955 F Date Time Provider Department 07/23/18 OMAR GROSS During your visit today, we recorded the following information about you: Josephine Woodard Psr 07/23/2018 10:56 AM Signed Patient calling in and rescheduled the OV from 07/25 to 08/12. Patient stated she is unable to do her chemo in 3 weeks and would like a call from Dr. Gross today if possible about her upcoming treatment dates. Please advise and call patient at [phone]. Omar Gross DO 07/23/2018 11:04 AM Signed Can someone call her to see how she'd like to change and to what dates? DO Jane Dominguez LPN 07/23/2018 12:39 PM Signed Attempted to contact patient. Voicemail box is full, unable to leave message. Jane Reed LPN, LPN 07/23/2018 1:52 PM Signed Sent message to pt. Via my chart. Awaiting response. MARTELL Grimaldo LPN, LPN 07/23/2018 3:09 PM Signed Pt. Contacted is scheduled for chemo next week. There is going to be a 6 week period she Is going to be unavailable. Her question to you is.....would it be better to cancel next week and go the following week, that way there would be a 4 week span and a 5 week span .....verses a 3 week span and a 6 week span. Her next cycle on 09/09 is the next time she will be available for the entire week. MARTELL Grimaldo DO 07/23/2018 4:43 PM Signed Treat next week and then have 6 week span. DO Ania Dominguez LPN, MARTELL 07/23/2018 4:48 PM Signed Pt. Notified, keep appts. Scheduled for next week. Pt. Voiced understanding. Ania Reed LPN Allergies As of Date: 07/23/2018 Noted Allergy Reaction CODEINE 05/03/2007 5 - Intolerance PERCOCET (OXYCODONE-ACETAMINOPHEN)06/29/2015 9 - Itching Seasonal [Other] 06/05/2007 ULTRAM (TRAMADOL HCL) 01/08/2013 9 - Itching VICODIN (HYDROCODONE-ACETAMINOPHE*08/26/2007 9 - Itching Date Reviewed: 07/04/2018 Reviewed by: Miracle Engel, RN, RN - Fully Assessed Reason for Visit: Question [1327] Prescriptions as of 07/23/2018 Sig: OMEPRAZOLE 40 MG CAPSULE,BASSEM* TAKE 1 CAPSULE BY MOUTH ONCE * LORAZEPAM 1 MG TABLET Take 1 tablet by mouth every * VERAPAMIL ER 120 MG 24 HR CAP* Take 2 capsules by mouth debora* TBO-FILGRASTIM 480 MCG/0.8 ML* Inject 480 mcg subcutaneously* ZOLPIDEM 5 MG TABLET Take 1 tablet by mouth at bed* ONDANSETRON HCL 8 MG TABLET Take 1 tablet by mouth every * NABUMETONE 500 MG TABLET Take 2 tablets by mouth twice* Patient not taking: Reported on 06/13/2018 LIDOCAINE-PRILOCAINE 2.5 %-2.* Apply 1 application to affect* AMOXICILLIN 500 MG TABLET Take 500 mg by mouth four sharyn* OLANZAPINE 10 MG TABLET Take 1 tablet by mouth daily * Patient taking differently: Take 10 mg by mouth daily at * MELATONIN 10 MG TABLET Take 1 tablet by mouth at bed* CYCLOBENZAPRINE 10 MG TABLET Take 1 tablet by mouth every * PROMETHAZINE 25 MG TABLET Take 1 tablet by mouth every * MAGNESIUM OXIDE 400 MG (241.3* Take 400 mg by mouth once nilda* GABAPENTIN 300 MG CAPSULE Take 3 capsules by mouth thre* Patient taking differently: Take 300 mg by mouth daily at* HYDROCODONE-HOMATROPINE 5 MG-* Take 5 mL by mouth every 4 ho* DEXAMETHASONE 4 MG TABLET Take 1 tablet twice the day p* ONDANSETRON HCL 8 MG TABLET Take 1 tablet by mouth every * FLUTICASONE 50 MCG/ACTUATION * Use 1 Gulliver in each nostril o* ERGOCALCIFEROL (VITAMIN D2) 5* Take 2 capsules a week for 8 * LORATADINE 10 MG TABLET Take 10 mg by mouth once debora* DOCUSATE SODIUM 100 MG CAPSULE Take 100 mg by mouth twice da* POLYETHYLENE GLYCOL 3350 17 G* Take 17 g by mouth once daily. NAPROXEN SODIUM 220 MG TABLET Take 220 mg by mouth as neede* SENOKOT ORAL Take by mouth once daily. MULTIVITAMIN TABLET Take 1 tablet by mouth once d* Problem List As Of Date 07/23/2018 Noted Resolved Calculus of gallbladder with other cholecystiti*INVALID FOR*09/22/2016 DIARRHEA SPECIFIED ORGANISM NEC [A08.8] INVALID FOR*09/22/2016 Sebaceous cyst [L72.3] INVALID FOR*09/22/2016 Carcinomatosis [C80.0] INVALID FOR*01/02/2014 Ovarian cancer (HCC) [C56.9] INVALID FOR*09/22/2016 Vaginal atrophy [N95.2] INVALID FOR*09/22/2016 Climacteric [N95.1] INVALID FOR*09/22/2016 Anorectal pain [K62.89] INVALID FOR*09/22/2016 Hemorrhoid [K64.9] INVALID FOR*09/22/2016 Anal fissure [K60.2] INVALID FOR*09/22/2016 Cancer of both 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 ? HPI: The patient is a 63 year old female who presented to her PCP prior to a trip to [facility] for vaccinations. She reported that she was having lower pelvic pain and bloating as well as lower leg cramping. She had a BMP done and her LFTs were elevated so her PCP ordered an ultrasound of the liver. The ultrasound showed some mild ascites and a right lower quadrant mass. She had a CT scan of the chest/abdomen/pelvis which showed multiple pelvic masses and enlarged lymph nodes. A pelvic ultrasound was also done. Her CA125 was elevated at 2342 U/mL (CEA was WNL). She had a colonoscopy on 10/28/2012 which showed some microscopic colitis and hemorrhoids but was otherwise negative. Random biopsies were obtained and the pathology demonstrated a non-small cell carcinoma. Immunostains were positive for CK 7, CK 8, estrogen receptors. Specimen was negative for CK 20. ? PRIOR TREATMENT: 1) Carboplatin/paclitaxel x3 cycles. 2) 01/09/2013 - Exploratory laparotomy, total abdominal hysterectomy, bilateral salpingo- oophorectomy, omentectomy, pelvic peritoneal stripping, excision of peritoneal nodules, left pelvic lymph node biopsy, argon beam ablation of peritoneal implants with Dr. Avery, and interval debulking surgery for initial resection of ovarian cancer. 3) Received one post operative cycle carbo/Taxol 01/27/13. 4) Was hospitalized on 02/05/13 for small bowel obstruction. It was relieved with medical/conservative management. 5) Carbo with weekly Taxol x 6 cycles, completed 05/27/13. 6) [place]/carbo/cassandra x cycles for biopsy proven metastatic disease (intrahepatic metastases--Had been asymptomatic, but was noted to have an increase in CA-125. CT scan of the abdomen and pelvis was obtained to further evaluate. The study demonstrated 2 lesions within the liver that were suspicious for metastatic disease. She underwent a CT- guided biopsy. 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 7) Bevacizumab. 8) Carbo/Taxol x6 cycles completed 11/09/2016. 9) Doxil. PD following 5 cycles. ? Current therapy: 1) Avastin/Topotecan. ? Presents for ongoing oncologic management. Evaluation for cycle #9. ? Interim history: Muscle cramping significantly diminished after rotating her antihypertensive medication to verapamil. No complaints today. She did express more nausea this past cycle and is mostly anticipatory nausea. Whenever she has the port flush she continues to saline and that triggers a wave of nausea. Emend was used midway during the last cycle and that helped. She also feels olanzapine helps quite a bit bedtime and would like to take a morning dose if able. Otherwise no abdominal bloating pain or distention. Bowels are working normally. Appetite is been normal. No shortness of breath at rest or with exertion. Medications and allergies as below personally reviewed by me today. Any changes documented in appropriate section. ? ROS: Constitutional: Denies episodes night sweats. Neuro: Denies KLEIN, vertigo, dizziness and imbalance. HEENT: No recent change in voice, vision or hearing. Resp: Denies wheeze and hemoptysis. CVS: No exertional chest pain/pressure or tightness. No PND or orthopnea. No lower extremity swelling or edema. GI: Denies dysgeusia. Denies symptoms of stomatitis. Denies dysphagia and odynophagia. : Denies dysuria or gross hematuria. Endo: Denies hot flashes. Denies polyuria and polydipsia. Denies heat and cold intolerance. Musculoskeletal: See above. Derm: Denies rash. Denies diffuse pruritis. Heme: See above. Psych: Normal mood. ? PHYSICAL EXAM: Vitals: Blood pressure 136/80, pulse 89, temperature 36.8 ?C (98.3 ?F), temperature source Tympanic, weight 88 kg (194 lb), last menstrual period 12/10/2011. Well-appearing and in no acute distress. EYES: Sclerae are anicteric bilaterally. NECK: Supple. LYMPHATIC: There is no palpable cervical, supraclavicular adenopathy. RESPIRATORY: Inspiratory breath sounds are of normal intensity in all rodriguez. No rales, wheezes or rhonchi. CARDIOVASCULAR: Rhythm is regular. Normal intensity S1/S2. There is no gallop or murmur. ABDOMEN: The abdomen is nondistended. There is no organomegaly. No tenderness. No fluid wave. Extremities: Free of edema. SKIN: No jaundice or rash. No petechiae. NEUROLOGIC: rand maker II-XII are grossly intact. No focal motor weakness. ? ASSESSMENT/PLAN: (C56.1, C56.2) Cancer of both ovaries (HCC) (primary encounter diagnosis) (C78.7) Liver metastases (HCC) KPS is 90%. Biopsy-proven recurrence. [place] refractory? -She is tolerating topotecan well thus far except for anemia and thrombocytopenia. leukopenia stable with Neulasta injection after chemotherapy treatment -Somatic BRCA mutation analysis negative--see scanned [facility] report 01/15/2018. -Tolerating Avastin except for hypertension but that is now well controlled with verapamil. -CEA 125 has increased to 72.9 U/mL but she remains asymptomatic. Therefore we decided to continue the same treatment course for now. We will repeat CT scans in several months and if the lesion is more amenable to biopsy, that will be pursued in the interest of PDL 1 testing. Plan: -Okay for next cycle of topotecan/bevacizumab next week. -Neupogen injection daily for 10 days following cycle. ? (I15.8) Other secondary hypertension Assessment: -HTN from previous bevacizumab. -Responded well to lisinopril, but had cough. -BP responding very nicely to increase dose of verapamil 240 mg once a day. Serendipitous side effect of relief from muscle cramps. Plan: -Continue verapamil at current dose 240 mg once a day. Omar Gross DO CNOVSP Observed: 07/04/2018 Status: COMPLETED Source: [place] 11:00 AM [facility] REPOSITORY Visit (SP) Office (PRISCILLA) IVA CUEVA ([id number]) 1955 F Date Time Provider Department 07/04/18 11:00 AM MASCI, OMAR A HEMAWS During your visit today, we recorded the following information about you: Temperature Pulse Blood pressure Weight 98.3 degrees 89/minute 136/80 88 kg Omar Khari GrossDO 07/04/2018 3:55 PM Signed Diagnosis: 1) Ovarian cancer. ? HPI: The patient is a 63 year old female who presented to her PCP prior to a trip to [facility] for vaccinations. She reported that she was having lower pelvic pain and bloating as well as lower leg cramping. She had a BMP done and her LFTs were elevated so her PCP ordered an ultrasound of the liver. The ultrasound showed some mild ascites and a right lower quadrant mass. She had a CT scan of the chest/abdomen/pelvis which showed multiple pelvic masses and enlarged lymph nodes. A pelvic ultrasound was also done. Her CA125 was elevated at 2342 U/mL (CEA was WNL). She had a colonoscopy on 10/28/2012 which showed some microscopic colitis and hemorrhoids but was otherwise negative. Random biopsies were obtained and the pathology demonstrated a non- small cell carcinoma. Immunostains were positive for CK 7, CK 8, estrogen receptors. Specimen was negative for CK 20. ? PRIOR TREATMENT: 1) Carboplatin/paclitaxel x3 cycles. 2) 01/09/2013 - Exploratory laparotomy, total abdominal hysterectomy, bilateral salpingo- oophorectomy, omentectomy, pelvic peritoneal stripping, excision of peritoneal nodules, left pelvic lymph node biopsy, argon beam ablation of peritoneal implants with Dr. Avery, and interval debulking surgery for initial resection of ovarian cancer. 3) Received one post operative cycle carbo/Taxol 01/27/13. 4) Was hospitalized on 02/05/13 for small bowel obstruction. It was relieved with medical/conservative management. 5) Carbo with weekly Taxol x 6 cycles, completed 05/27/13. 6) [place]/carbo/cassandra x cycles for biopsy proven metastatic disease (intrahepatic metastases--Had been asymptomatic, but was noted to have an increase in CA-125. CT scan of the abdomen and pelvis was obtained to further evaluate. The study demonstrated 2 lesions within the liver that were suspicious for metastatic disease. She underwent a CT-guided biopsy. 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 7) Bevacizumab. 8) Carbo/Taxol x6 cycles completed 11/09/2016. 9) Doxil. PD following 5 cycles. ? Current therapy: 1) Avastin/Topotecan. ? Presents for ongoing oncologic management. Evaluation for cycle #9. ? Interim history: Muscle cramping significantly diminished after rotating her antihypertensive medication to verapamil. No complaints today. She did express more nausea this past cycle and is mostly anticipatory nausea. Whenever she has the port flush she continues to saline and that triggers a wave of nausea. Emend was used midway during the last cycle and that helped. She also feels olanzapine helps quite a bit bedtime and would like to take a morning dose if able. Otherwise no abdominal bloating pain or distention. Bowels are working normally. Appetite is been normal. No shortness of breath at rest or with exertion. Medications and allergies as below personally reviewed by me today. Any changes documented in appropriate section. ? ROS: Constitutional: Denies episodes night sweats. Neuro: Denies KLEIN, vertigo, dizziness and imbalance. HEENT: No recent change in voice, vision or hearing. Resp: Denies wheeze and hemoptysis. CVS: No exertional chest pain/pressure or tightness. No PND or orthopnea. No lower extremity swelling or edema. GI: Denies dysgeusia. Denies symptoms of stomatitis. Denies dysphagia and odynophagia. : Denies dysuria or gross hematuria. Endo: Denies hot flashes. Denies polyuria and polydipsia. Denies heat and cold intolerance. Musculoskeletal: See above. Derm: Denies rash. Denies diffuse pruritis. Heme: See above. Psych: Normal mood. ? PHYSICAL EXAM: Vitals: Blood pressure 136/80, pulse 89, temperature 36.8 ?C (98.3 ?F), temperature source Tympanic, weight 88 kg (194 lb), last menstrual period 12/10/2011. Well-appearing and in no acute distress. EYES: Sclerae are anicteric bilaterally. NECK: Supple. LYMPHATIC: There is no palpable cervical, supraclavicular adenopathy. RESPIRATORY: Inspiratory breath sounds are of normal intensity in all rodriguez. No rales, wheezes or rhonchi. CARDIOVASCULAR: Rhythm is regular. Normal intensity S1/S2. There is no gallop or murmur. ABDOMEN: The abdomen is nondistended. There is no organomegaly. No tenderness. No fluid wave. Extremities: Free of edema. SKIN: No jaundice or rash. No petechiae. NEUROLOGIC: rand maker II-XII are grossly intact. No focal motor weakness. ? ASSESSMENT/PLAN: (C56.1, C56.2) Cancer of both ovaries (HCC) (primary encounter diagnosis) (C78.7) Liver metastases (HCC) KPS is 90%. Biopsy-proven recurrence. Bill [place] refractory? -She is tolerating topotecan well thus far except for anemia and thrombocytopenia. leukopenia stable with Neulasta injection after chemotherapy treatment -Somatic BRCA mutation analysis negative--see scanned [facility] report 01/15/2018. -Tolerating Avastin except for hypertension but that is now well controlled with verapamil. -CEA 125 has increased to 72.9 U/mL but she remains asymptomatic. Therefore we decided to continue the same treatment course for now. We will repeat CT scans in several months and if the lesion is more amenable to biopsy, that will be pursued in the interest of PDL 1 testing. Plan: -Okay for next cycle of topotecan/bevacizumab next week. -Neupogen injection daily for 10 days following cycle. ? (I15.8) Other secondary hypertension Assessment: -HTN from previous bevacizumab. -Responded well to lisinopril, but had cough. -BP responding very nicely to increase dose of verapamil 240 mg once a day. Serendipitous side effect of relief from muscle cramps. Plan: -Continue verapamil at current dose 240 mg once a day. Omar Gross DO Referring Provider: OMAR GROSS [[id number]] Allergies As of Date: 07/04/2018 Noted Allergy Reaction CODEINE 05/03/2007 5 - Intolerance PERCOCET (OXYCODONE-ACETAMINOPHEN)06/29/2015 9 - Itching Seasonal [Other] 06/05/2007 ULTRAM (TRAMADOL HCL) 01/08/2013 9 - Itching VICODIN (HYDROCODONE-ACETAMINOPHE*08/26/2007 9 - Itching Date Reviewed: 07/04/2018 Reviewed by: Miracle Engel, RN, RN - Fully Assessed Reason for Visit: Established Patient [175] Primary Visit Diagnosis:Cancer of both ovaries (HCC) [C56.1, C56.2] Other Visit Diagnosis:Chemotherapy induced nausea and vomiting [R11.2, T45.1X5A] Order(s):LORazepam (ATIVAN) 1 mg tabletTake 1 tablet by mouth every 8 hours as needed for up to 30 days.Disp: 90 tabletRfl: 0 Follow-up and Disposition History Recorded Prescriptions as of 07/04/2018 Sig: LORAZEPAM 1 MG TABLET Take 1 tablet by mouth every * VERAPAMIL ER 120 MG 24 HR CAP* Take 2 capsules by mouth debora* TBO-FILGRASTIM 480 MCG/0.8 ML* Inject 480 mcg subcutaneously* ZOLPIDEM 5 MG TABLET Take 1 tablet by mouth at bed* ONDANSETRON HCL 8 MG TABLET Take 1 tablet by mouth every * NABUMETONE 500 MG TABLET Take 2 tablets by mouth twice* Patient not taking: Reported on 06/13/2018 LIDOCAINE-PRILOCAINE 2.5 %-2.* Apply 1 application to affect* AMOXICILLIN 500 MG TABLET Take 500 mg by mouth four sharyn* OLANZAPINE 10 MG TABLET Take 1 tablet by mouth daily * Patient taking differently: Take 10 mg by mouth daily at * MELATONIN 10 MG TABLET Take 1 tablet by mouth at bed* CYCLOBENZAPRINE 10 MG TABLET Take 1 tablet by mouth every * PROMETHAZINE 25 MG TABLET Take 1 tablet by mouth every * OMEPRAZOLE 40 MG CAPSULE,BASSEM* Take 1 capsule by mouth once * MAGNESIUM OXIDE 400 MG (241.3* Take 400 mg by mouth once nilda* GABAPENTIN 300 MG CAPSULE Take 3 capsules by mouth thre* Patient taking differently: Take 300 mg by mouth daily at* HYDROCODONE-HOMATROPINE 5 MG-* Take 5 mL by mouth every 4 ho* DEXAMETHASONE 4 MG TABLET Take 1 tablet twice the day p* ONDANSETRON HCL 8 MG TABLET Take 1 tablet by mouth every * FLUTICASONE 50 MCG/ACTUATION * Use 1 Gulliver in each nostril o* ERGOCALCIFEROL (VITAMIN D2) 5* Take 2 capsules a week for 8 * LORATADINE 10 MG TABLET Take 10 mg by mouth once debora* DOCUSATE SODIUM 100 MG CAPSULE Take 100 mg by mouth twice da* POLYETHYLENE GLYCOL 3350 17 G* Take 17 g by mouth once daily. NAPROXEN SODIUM 220 MG TABLET Take 220 mg by mouth as neede* SENOKOT ORAL Take by mouth once daily. MULTIVITAMIN TABLET Take 1 tablet by mouth once d* Problem List As Of Date 07/04/2018 Noted Resolved Calculus of gallbladder with other cholecystiti*INVALID FOR*09/22/2016 DIARRHEA SPECIFIED ORGANISM NEC [A08.8] INVALID FOR*09/22/2016 Sebaceous cyst [L72.3] INVALID FOR*09/22/2016 Carcinomatosis [C80.0] INVALID FOR*01/02/2014 Ovarian cancer (HCC) [C56.9] INVALID FOR*09/22/2016 Vaginal atrophy [N95.2] INVALID FOR*09/22/2016 Climacteric [N95.1] INVALID FOR*09/22/2016 Anorectal pain [K62.89] INVALID FOR*09/22/2016 Hemorrhoid [K64.9] INVALID FOR*09/22/2016 Anal fissure [K60.2] INVALID FOR*09/22/2016 Cancer of both ovaries (HCC) [C56.1, C56.2] INVALID FOR* Other secondary hypertension [I15.8] INVALID FOR* Muscle cramps [R25.2] INVALID FOR* Encounter Status:Closed by OMAR GROSS DO on 07/04/18 COMPREHENSIVE METABOLIC Collected: 07/03/2018 Status: F Source: LARON BENDER 11:59 AM [facility] [place] CODE TESTS RESULT OUT OF RANGE REFERENCE UNITS LAB L501.0100 74-106 mg/dL High GLU 130 Result Comment: Fasting Glucose result greater than or equal to 126 mg/dL suggests DIABETES MELLITUS per A.D.A. criteria. Please note revised GLUCOSE reference range effective 2017. LAB L501.1000 7-18 mg/dL Normal BUN 14 LAB L501.1100 0.55-1.02 mg/dL Normal CREAT,SERUM 0.78 Result Comment: The validity of the calculated GFR AND GFRAA in patients over 70 years has not been determined. Clinical correlation is essential. LAB L501.1110 >60 mL/min Normal EST GFR 79 Result Comment: Non- GFR Calc LAB L501.1115 >60 mL/min Normal EST GFR - AA 96 Result Comment: GFR Calc LAB L501.1300 10-20 RATIO Normal BUN/CRE 17.9 LAB L501.1500 6.4-8.2 g/dL T Normal PROT 7.6 LAB L501.1800 3.2-5.0 g/dL Normal ALB 3.6 LAB L501.1950 2.2-4.2 g/dL Normal GLOB 4.0 LAB L501.2000 0.9-2.4 RATIO Normal A/G 0.9 LAB L501.2200 8.5-10.1 mg/dL CA Normal 8.7 LAB L501.4100 15-37 U/L Normal AST 24 LAB L501.4305 45-117 U/L High ALK P 130 LAB L501.4405 13-56 U/L Normal ALT 46 LAB L501.4600 0.20-1.00 mg/dL T Normal BILI 0.20 LAB L501.5300 136-145 mmol/L NA Normal 144 LAB L501.5600 3.5-5.1 mmol/L K Normal 4.0 LAB L501.5900 98-107 mmol/L CL Normal 106 LAB L501.6100 21.0-32.0 mmol/L Normal CO2 28.0 LAB L501.6200 5-15 Normal GAP 10 Performed By: #### L500.4050 #### [facility] [address] [place], [place], [address] CBC W/DIFF, AUTOMATED Collected: 07/03/2018 Status: C Source: [place] 11:59 AM [facility] [place] TYPE CODE TESTS RESULT OUT OF RANGE REFERENCE UNITS LAB L100.1000 4.4-11.0 K/mm3 Normal WBC 4.4 LAB L100.1200 4.2-5.4 M/mm3 Low RBC 3.23 LAB L100.1300 12.0-15.0 g/dl Low HGB 9.7 LAB L100.1400 37-47 % Low HCT 29.5 LAB L100.1500 81-99 fL Normal MCV 91.3 LAB L100.1600 27.0-32.0 pg Normal MCH 30.0 LAB L100.1700 32-36 g/gl Normal MCHC 32.9 LAB L100.1810 11.6-14.6 % High RDW CV 15.9 LAB L100.1820 35.1-43.9 fl High RDW SD 51.2 LAB L100.1900 150-450 K/mm3 Low 93 PLT LAB L100.2000 6.2-12.0 fl Normal MPV 11.2 LAB L100.3100 MANUAL DIFF Normal CELLS COUNTED 100 LAB L100.3200 47-70 % Low 42 SEGS LAB L100.3600 0-0 High 3 PROMYELO LAB L100.3800 19-41 % High 44 LYMPH LAB L100.3900 0-10 % 5 Normal MONOCYTE LAB L100.4000 0-5 % 5 Normal EOS LAB L100.4100 0-1 % 1 Normal BASOPHIL LAB L100.5500 ADEQ Normal PLT EST MOD DEC LAB L100.7000 NORM C AND C NORMAL Normal RED CELL MORPH NORM C+C LAB L100.2620 2.0-7.7 X10 3/uL Low Absolute Neut 1.8 LAB L100.2720 0.83-4.51 X10 3/ul Normal Absolute Lymph 1.94 LAB L100.9900 Normal PATH REV Reviewed Result Comment: Normocytic anemia. Mild Thrombocytopenia. Clinical correlation necessary. Jc Snyder M.D. 07/04/18 AMENDED REPORT 07/04/18 1432 PATH REV previously reported as: February jalyn Performed By: #### L100.0100 #### [facility] [address] [place] [address]. [place], [address] CANCER ANTIGEN 125 Collected: 07/03/2018 Status: F Source: [place] 11:59 AM [facility] [place] TYPE CODE TESTS RESULT OUT OF RANGE REFERENCE UNITS LAB L3100.5000 0.0-38.1 U/mL High CA125 72.9 2303 Result Comment: Meghna ECLIA methodology Performed at: - [facility] [address] [id number] [place] Carpenter: Carlo Bass PhD, Phone: [phone] Performed By: #### L3100.5000 #### [facility] (refer to report for specific site) refer to report for address and phone number CBC W/DIFF, AUTOMATED Collected: 06/26/2018 Status: F Source: [place] 10:05 AM [facility] [place] TYPE CODE TESTS RESULT OUT OF RANGE REFERENCE UNITS LAB L100.1000 4.4-11.0 K/mm3 Low WBC 2.9 LAB L100.1200 4.2-5.4 M/mm3 Low RBC 3.33 LAB L100.1300 12.0-15.0 g/dl Low HGB 9.8 LAB L100.1400 37-47 % Low HCT 30.2 LAB L100.1500 81-99 fL Normal MCV 90.7 LAB L100.1600 27.0-32.0 pg Normal MCH 29.4 LAB L100.1700 32-36 g/gl Normal MCHC 32.5 LAB L100.1810 11.6-14.6 % High RDW CV 15.7 LAB L100.1820 35.1-43.9 fl High RDW SD 51.3 LAB L100.1900 150-450 K/mm3 Low PLT 118 LAB L100.2000 6.2-12.0 fl Normal MPV 10.6 LAB L100.2100 47-70 % Low NEUT% 35.2 LAB L100.2200 19-41 % High LY% 49.7 LAB L100.2300 0-10 % High MONO% 14.1 LAB L100.2400 0-5 % Normal EO% 0.0 LAB L100.2500 0-1 % Normal BASO% 0.0 LAB L100.2550 0.0-0.9 % High IM GRAN % 1.000 Result Comment: IG% - Immature Granulocytes (promyelocytes, myelocytes and metamyelocytes) > 1% indicates that a LEFT SHIFT is Present. LAB L100.2620 2.0-7.7 X10 3/uL Low Absolute Neut 1.0 LAB L100.2720 0.83-4.51 X10 3/ul Normal Absolute Lymph 1.44 Performed By: #### L100.0100 #### [facility] [address] [place], [address] [facility] Observed: 06/18/2018 Status: COMPLETED Source: [place] 12:00 AM [facility] REPOSITORY Telephone (HEMANAND) IVA CUEVA ([id number]) 1955 F Date Time Provider Department 06/18/18 OMAR GROSS During your visit today, we recorded the following information about you: Bettina Pa 06/18/2018 2:15 PM Signed Maday from [facility] Infusion called in - states that pt is supposed to start Aloxi infusion (?) today - they need an order from Dr. Gross that has his signature on it. Please fax signed order to [phone]. Jane aJmes LPN 06/18/2018 2:28 PM Signed Order received. Will have physician sign. Jane Orona Pss 06/18/2018 2:35 PM Signed Maday called back - order needs a diagnosis as well. Ania Reed LPN, LPN 06/18/2018 2:51 PM Signed Orders faxed with dx code and signature MARTELL Grimaldo PSR 06/19/2018 3:28 PM Signed Maday called back and stated that she did not receive most recent fax with DX code and signature. Please resend to [phone] Thank you Hari Avilez PSR Jane James LPN 06/19/2018 4:39 PM Signed Spoke with Lilly at [facility] infusion suite. She will call back if she needs anything further faxed. Jane James LPN Allergies As of Date: 06/18/2018 Noted Allergy Reaction CODEINE 05/03/2007 5 - Intolerance PERCOCET (OXYCODONE-ACETAMINOPHEN)06/29/2015 9 - Itching Seasonal [Other] 06/05/2007 ULTRAM (TRAMADOL HCL) 01/08/2013 9 - Itching VICODIN (HYDROCODONE-ACETAMINOPHE*08/26/2007 9 - Itching Date Reviewed: 06/13/2018 Reviewed by: Jane James LPN - Fully Assessed Reason for Visit: Orders [681] Prescriptions as of 06/18/2018 Sig: CIPROFLOXACIN 500 MG TABLET Take 1 tablet by mouth twice * MORPHINE CONCENTRATE 100 MG/5* Take 0.5 mL by mouth every 4 * VERAPAMIL ER 120 MG 24 HR CAP* Take 2 capsules by mouth debora* TBO-FILGRASTIM 480 MCG/0.8 ML* Inject 480 mcg subcutaneously* ZOLPIDEM 5 MG TABLET Take 1 tablet by mouth at bed* ONDANSETRON HCL 8 MG TABLET Take 1 tablet by mouth every * NABUMETONE 500 MG TABLET Take 2 tablets by mouth twice* Patient not taking: Reported on 06/13/2018 LIDOCAINE-PRILOCAINE 2.5 %-2.* Apply 1 application to affect* AMOXICILLIN 500 MG TABLET Take 500 mg by mouth four sharyn* OLANZAPINE 10 MG TABLET Take 1 tablet by mouth daily * Patient taking differently: Take 10 mg by mouth daily at * MELATONIN 10 MG TABLET Take 1 tablet by mouth at bed* CYCLOBENZAPRINE 10 MG TABLET Take 1 tablet by mouth every * PROMETHAZINE 25 MG TABLET Take 1 tablet by mouth every * OMEPRAZOLE 40 MG CAPSULE,BASSEM* Take 1 capsule by mouth once * MAGNESIUM OXIDE 400 MG (241.3* Take 400 mg by mouth once nilda* GABAPENTIN 300 MG CAPSULE Take 3 capsules by mouth thre* Patient taking differently: Take 300 mg by mouth daily at* HYDROCODONE-HOMATROPINE 5 MG-* Take 5 mL by mouth every 4 ho* DEXAMETHASONE 4 MG TABLET Take 1 tablet twice the day p* ONDANSETRON HCL 8 MG TABLET Take 1 tablet by mouth every * FLUTICASONE 50 MCG/ACTUATION * Use 1 Gulliver in each nostril o* ERGOCALCIFEROL (VITAMIN D2) 5* Take 2 capsules a week for 8 * LORATADINE 10 MG TABLET Take 10 mg by mouth once debora* DOCUSATE SODIUM 100 MG CAPSULE Take 100 mg by mouth twice da* POLYETHYLENE GLYCOL 3350 17 G* Take 17 g by mouth once daily. NAPROXEN SODIUM 220 MG TABLET Take 220 mg by mouth as neede* SENOKOT ORAL Take by mouth once daily. MULTIVITAMIN TABLET Take 1 tablet by mouth once d* Problem List As Of Date 06/18/2018 Noted Resolved Calculus of gallbladder with other cholecystiti*INVALID FOR*09/22/2016 DIARRHEA SPECIFIED ORGANISM NEC [A08.8] INVALID FOR*09/22/2016 Sebaceous cyst [L72.3] INVALID FOR*09/22/2016 Carcinomatosis [C80.0] INVALID FOR*01/02/2014 Ovarian cancer (HCC) [C56.9] INVALID FOR*09/22/2016 Vaginal atrophy [N95.2] INVALID FOR*09/22/2016 Climacteric [N95.1] INVALID FOR*09/22/2016 Anorectal pain [K62.89] INVALID FOR*09/22/2016 Hemorrhoid [K64.9] INVALID FOR*09/22/2016 Anal fissure [K60.2] INVALID FOR*09/22/2016 Cancer of both ovaries (HCC) [C56.1, C56.2] INVALID FOR* Other secondary hypertension [I15.8] INVALID FOR* Muscle cramps [R25.2] INVALID FOR* Encounter Status:Closed by ERINMALLORY DOWNSELA on 06/18/18 PROGRESS Observed: 06/13/2018 Status: COMPLETED Source: [place] 3:14 PM [facility] [place] REPOSITORY HNO ID: [id number] Author: Omar Gross Service: (none) Author Type: Physician Type: Progress Notes Filed: 06/14/2018 9:51 AM Note Text: Diagnosis: 1) Ovarian cancer. ? HPI: The patient is a 63 year old female who presented to her PCP prior to a trip to [facility] for vaccinations. She reported that she was having lower pelvic pain and bloating as well as lower leg cramping. She had a BMP done and her LFTs were elevated so her PCP ordered an ultrasound of the liver. The ultrasound showed some mild ascites and a right lower quadrant mass. She had a CT scan of the chest/abdomen/pelvis which showed multiple pelvic masses and enlarged lymph nodes. A pelvic ultrasound was also done. Her CA125 was elevated at 2342 U/mL (CEA was WNL). She had a colonoscopy on 10/28/2012 which showed some microscopic colitis and hemorrhoids but was otherwise negative. Random biopsies were obtained and the pathology demonstrated a non-small cell carcinoma. Immunostains were positive for CK 7, CK 8, estrogen receptors. Specimen was negative for CK 20. ? PRIOR TREATMENT: 1) Carboplatin/paclitaxel x3 cycles. 2) 01/09/2013 - Exploratory laparotomy, total abdominal hysterectomy, bilateral salpingo- oophorectomy, omentectomy, pelvic peritoneal stripping, excision of peritoneal nodules, left pelvic lymph node biopsy, argon beam ablation of peritoneal implants with Dr. Avery, and interval debulking surgery for initial resection of ovarian cancer. 3) Received one post operative cycle carbo/Taxol 01/27/13. 4) Was hospitalized on 02/05/13 for small bowel obstruction. It was relieved with medical/conservative management. 5) Carbo with weekly Taxol x 6 cycles, completed 05/27/13. 6) [place]/carbo/cassandra x cycles for biopsy proven metastatic disease (intrahepatic metastases--Had been asymptomatic, but was noted to have an increase in CA-125. CT scan of the abdomen and pelvis was obtained to further evaluate. The study demonstrated 2 lesions within the liver that were suspicious for metastatic disease. She underwent a CT- guided biopsy. 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 7) Bevacizumab. 8) Carbo/Taxol x6 cycles completed 11/09/2016. 9) Doxil. PD following 5 cycles. ? Current therapy: 1) Topotecan. ? Presents for ongoing oncologic management. Evaluation for cycle #8. ? Interim history: Tolerating treatment well with the exception of moderate fatigue. No nausea or vomiting. No episodes of fever or neutropenic fever. She doesn't have any abdominal pain, bloating or distention. No decrease in appetite. Bowels have been working regularly. No signs of GI bleeding. No episodes of jaundice. She's not short of breath at rest or with moderate exertion such as walking or climbing stairs. She's had no chest pain or pressure. She is having right ankle pain due to degenerative changes. She's undergone several injections by her inventory checker they have not helped. This is her most significant issue impacting her quality of life presently. Muscle cramping significantly diminished after rotating her antihypertensive medication to verapamil. Medications and allergies as below personally reviewed by me today. Any changes documented in appropriate section. ? ROS: Constitutional: Denies episodes night sweats. Neuro: Denies KLEIN, vertigo, dizziness and imbalance. HEENT: No recent change in voice, vision or hearing. Resp: Denies wheeze and hemoptysis. CVS: No exertional chest pain/pressure or tightness. No PND or orthopnea. No lower extremity swelling or edema. GI: Denies dysgeusia. Denies symptoms of stomatitis. Denies dysphagia and odynophagia. : Denies dysuria or gross hematuria. Endo: Denies hot flashes. Denies polyuria and polydipsia. Denies heat and cold intolerance. Musculoskeletal: See above. Derm: Denies rash. Denies diffuse pruritis. Heme: See above. Psych: Normal mood. ? PHYSICAL EXAM: BP 137/75 Pulse 94 Temp (Src) 97.5 (Temporal Artery) Wt 191 lb 8 oz (86.9kg) LMP 12/10/2011 Well-appearing and in no acute distress. EYES: Sclerae are anicteric bilaterally. NECK: Supple. LYMPHATIC: There is no palpable cervical, supraclavicular adenopathy. RESPIRATORY: Inspiratory breath sounds are of normal intensity in all rodriguez. No rales, wheezes or rhonchi. CARDIOVASCULAR: Rhythm is regular. Normal intensity S1/S2. There is no gallop or murmur. ABDOMEN: The abdomen is nondistended. There is no organomegaly. No tenderness. No fluid wave. Extremities: Free of edema. SKIN: No jaundice or rash. No petechiae. NEUROLOGIC: rand maker II-XII are grossly intact. No focal motor weakness. ? ASSESSMENT/PLAN: (C56.1, C56.2) Cancer of both ovaries (HCC) (primary encounter diagnosis) (C78.7) Liver metastases (HCC) KPS is 90%. Biopsy-proven recurrence. [place] refractory? -She is tolerating topotecan well thus far except for anemia and thrombocytopenia. leukopenia stable with Neulasta injection after chemotherapy treatment -Somatic BRCA mutation analysis negative--see scanned [facility] report 01/15/2018. -Tolerating Avastin except for hypertension but that is now well controlled with verapamil. -We discussed her overall situation again today. I reviewed the CT scan images with her personally. There are a few small retroperitoneal lymph nodes and some mesenteric nodules that would not be amenable to CT-guided biopsy. CEA 125 has increased but she remains asymptomatic. Therefore we decided to continue the same treatment course for now. We will repeat CT scans in several months and if the lesion is more amenable to biopsy, that will be pursued in the interest of PDL 1 testing. Plan: -Okay for next cycle of topotecan/bevacizumab next week. -Neupogen injection daily for 10 days following cycle. ? (I15.8) Other secondary hypertension Assessment: -HTN from previous bevacizumab. -Responded well to lisinopril, but had cough. -BP responding very nicely to increase dose of verapamil 240 mg once a day. Serendipitous side effect of relief from muscle cramps. Plan: -Continue verapamil at current dose 240 mg once a day. Omar Gross DO CNOVSP Observed: 06/13/2018 Status: COMPLETED Source: [place] 3:00 PM [facility] REPOSITORY Visit (SP) Office (PRISCILLA) IVA CUEVA ([id number]) 1955 F Date Time Provider Department 06/13/18 3:00 PM OMAR GROSS During your visit today, we recorded the following information about you: Temperature Pulse Blood pressure Weight 97.5 degrees 94/minute 137/75 86.9 kg Jane Elaine MOURA 06/13/2018 3:24 PM Signed Est patient. Discuss recent labs @[facility], next round of treatment. Jane Gross DO 06/14/2018 9:51 AM Signed Diagnosis: 1) Ovarian cancer. ? HPI: The patient is a 63 year old female who presented to her PCP prior to a trip to [facility] for vaccinations. She reported that she was having lower pelvic pain and bloating as well as lower leg cramping. She had a BMP done and her LFTs were elevated so her PCP ordered an ultrasound of the liver. The ultrasound showed some mild ascites and a right lower quadrant mass. She had a CT scan of the chest/abdomen/pelvis which showed multiple pelvic masses and enlarged lymph nodes. A pelvic ultrasound was also done. Her CA125 was elevated at 2342 U/mL (CEA was WNL). She had a colonoscopy on 10/28/2012 which showed some microscopic colitis and hemorrhoids but was otherwise negative. Random biopsies were obtained and the pathology demonstrated a non- small cell carcinoma. Immunostains were positive for CK 7, CK 8, estrogen receptors. Specimen was negative for CK 20. ? PRIOR TREATMENT: 1) Carboplatin/paclitaxel x3 cycles. 2) 01/09/2013 - Exploratory laparotomy, total abdominal hysterectomy, bilateral salpingo- oophorectomy, omentectomy, pelvic peritoneal stripping, excision of peritoneal nodules, left pelvic lymph node biopsy, argon beam ablation of peritoneal implants with Dr. Avery, and interval debulking surgery for initial resection of ovarian cancer. 3) Received one post operative cycle carbo/Taxol 01/27/13. 4) Was hospitalized on 02/05/13 for small bowel obstruction. It was relieved with medical/conservative management. 5) Carbo with weekly Taxol x 6 cycles, completed 05/27/13. 6) [place]/carbo/cassandra x cycles for biopsy proven metastatic disease (intrahepatic metastases--Had been asymptomatic, but was noted to have an increase in CA-125. CT scan of the abdomen and pelvis was obtained to further evaluate. The study demonstrated 2 lesions within the liver that were suspicious for metastatic disease. She underwent a CT-guided biopsy. 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 7) Bevacizumab. 8) Carbo/Taxol x6 cycles completed 11/09/2016. 9) Doxil. PD following 5 cycles. ? Current therapy: 1) Topotecan. ? Presents for ongoing oncologic management. Evaluation for cycle #8. ? Interim history: Tolerating treatment well with the exception of moderate fatigue. No nausea or vomiting. No episodes of fever or neutropenic fever. She doesn't have any abdominal pain, bloating or distention. No decrease in appetite. Bowels have been working regularly. No signs of GI bleeding. No episodes of jaundice. She's not short of breath at rest or with moderate exertion such as walking or climbing stairs. She's had no chest pain or pressure. She is having right ankle pain due to degenerative changes. She's undergone several injections by her inventory checker they have not helped. This is her most significant issue impacting her quality of life presently. Muscle cramping significantly diminished after rotating her antihypertensive medication to verapamil. Medications and allergies as below personally reviewed by me today. Any changes documented in appropriate section. ? ROS: Constitutional: Denies episodes night sweats. Neuro: Denies KLEIN, vertigo, dizziness and imbalance. HEENT: No recent change in voice, vision or hearing. Resp: Denies wheeze and hemoptysis. CVS: No exertional chest pain/pressure or tightness. No PND or orthopnea. No lower extremity swelling or edema. GI: Denies dysgeusia. Denies symptoms of stomatitis. Denies dysphagia and odynophagia. : Denies dysuria or gross hematuria. Endo: Denies hot flashes. Denies polyuria and polydipsia. Denies heat and cold intolerance. Musculoskeletal: See above. Derm: Denies rash. Denies diffuse pruritis. Heme: See above. Psych: Normal mood. ? PHYSICAL EXAM: BP 137/75 Pulse 94 Temp (Src) 97.5 (Temporal Artery) Wt 191 lb 8 oz (86.9kg) LMP 12/10/2011 Well-appearing and in no acute distress. EYES: Sclerae are anicteric bilaterally. NECK: Supple. LYMPHATIC: There is no palpable cervical, supraclavicular adenopathy. RESPIRATORY: Inspiratory breath sounds are of normal intensity in all rodriguez. No rales, wheezes or rhonchi. CARDIOVASCULAR: Rhythm is regular. Normal intensity S1/S2. There is no gallop or murmur. ABDOMEN: The abdomen is nondistended. There is no organomegaly. No tenderness. No fluid wave. Extremities: Free of edema. SKIN: No jaundice or rash. No petechiae. NEUROLOGIC: rand maker II-XII are grossly intact. No focal motor weakness. ? ASSESSMENT/PLAN: (C56.1, C56.2) Cancer of both ovaries (HCC) (primary encounter diagnosis) (C78.7) Liver metastases (HCC) KPS is 90%. Biopsy-proven recurrence. [place] refractory? -She is tolerating topotecan well thus far except for anemia and thrombocytopenia. leukopenia stable with Neulasta injection after chemotherapy treatment -Somatic BRCA mutation analysis negative--see scanned [facility] report 01/15/2018. -Tolerating Avastin except for hypertension but that is now well controlled with verapamil. -We discussed her overall situation again today. I reviewed the CT scan images with her personally. There are a few small retroperitoneal lymph nodes and some mesenteric nodules that would not be amenable to CT-guided biopsy. CEA 125 has increased but she remains asymptomatic. Therefore we decided to continue the same treatment course for now. We will repeat CT scans in several months and if the lesion is more amenable to biopsy, that will be pursued in the interest of PDL 1 testing. Plan: -Okay for next cycle of topotecan/bevacizumab next week. -Neupogen injection daily for 10 days following cycle. ? (I15.8) Other secondary hypertension Assessment: -HTN from previous bevacizumab. -Responded well to lisinopril, but had cough. -BP responding very nicely to increase dose of verapamil 240 mg once a day. Serendipitous side effect of relief from muscle cramps. Plan: -Continue verapamil at current dose 240 mg once a day. Omar Gross DO Referring Provider: OMAR GROSS [[id number]] Allergies As of Date: 06/13/2018 Noted Allergy Reaction CODEINE 05/03/2007 5 - Intolerance PERCOCET (OXYCODONE-ACETAMINOPHEN)06/29/2015 9 - Itching Seasonal [Other] 06/05/2007 ULTRAM (TRAMADOL HCL) 01/08/2013 9 - Itching VICODIN (HYDROCODONE-ACETAMINOPHE*08/26/2007 9 - Itching Date Reviewed: 06/13/2018 Reviewed by: Jane James LPN - Fully Assessed Reason for Visit: Established Patient [175] Primary Visit Diagnosis:Cancer of both ovaries (HCC) [C56.1, C56.2] Other Visit Diagnosis:Other secondary hypertension [I15.8] Order(s):ciprofloxacin HCl (CIPRO) 500 mg tabletTake 1 tablet by mouth twice daily for 7 days.Disp: 14 tabletRfl: 0 morphine concentrate (ROXANOL) 100 mg/5 mL (20 mg/mL) solnTake 0.5 mL by mouth every 4 hours as needed for up to 7 days.Disp: 30 mLRfl: 0 Follow-up and Disposition History Recorded Prescriptions as of 06/13/2018 Sig: MORPHINE CONCENTRATE 100 MG/5* Take 0.5 mL by mouth every 4 * VERAPAMIL ER 120 MG 24 HR CAP* Take 2 capsules by mouth debora* TBO-FILGRASTIM 480 MCG/0.8 ML* Inject 480 mcg subcutaneously* ZOLPIDEM 5 MG TABLET Take 1 tablet by mouth at bed* ONDANSETRON HCL 8 MG TABLET Take 1 tablet by mouth every * LIDOCAINE-PRILOCAINE 2.5 %-2.* Apply 1 application to affect* OLANZAPINE 10 MG TABLET Take 1 tablet by mouth daily * Patient taking differently: Take 10 mg by mouth daily at * MELATONIN 10 MG TABLET Take 1 tablet by mouth at bed* CYCLOBENZAPRINE 10 MG TABLET Take 1 tablet by mouth every * PROMETHAZINE 25 MG TABLET Take 1 tablet by mouth every * OMEPRAZOLE 40 MG CAPSULE,BASSEM* Take 1 capsule by mouth once * GABAPENTIN 300 MG CAPSULE Take 3 capsules by mouth thre* Patient taking differently: Take 300 mg by mouth daily at* LORATADINE 10 MG TABLET Take 10 mg by mouth once debora* DOCUSATE SODIUM 100 MG CAPSULE Take 100 mg by mouth twice da* POLYETHYLENE GLYCOL 3350 17 G* Take 17 g by mouth once daily. NAPROXEN SODIUM 220 MG TABLET Take 220 mg by mouth as neede* SENOKOT ORAL Take by mouth once daily. CIPROFLOXACIN 500 MG TABLET Take 1 tablet by mouth twice * NABUMETONE 500 MG TABLET Take 2 tablets by mouth twice* Patient not taking: Reported on 06/13/2018 AMOXICILLIN 500 MG TABLET Take 500 mg by mouth four sharyn* MAGNESIUM OXIDE 400 MG TABLET Take 400 mg by mouth once nilda* HYDROCODONE-HOMATROPINE 5 MG-* Take 5 mL by mouth every 4 ho* DEXAMETHASONE 4 MG TABLET Take 1 tablet twice the day p* ONDANSETRON HCL 8 MG TABLET Take 1 tablet by mouth every * FLUTICASONE 50 MCG/ACTUATION * Use 1 [place] in each nostril o* ERGOCALCIFEROL (VITAMIN D2) 5* Take 2 capsules a week for 8 * MULTIVITAMIN TABLET Take 1 tablet by mouth once d* Medication notes this encounter GABAPENTIN 300 MG CAPSULE >> Jane James LPN 06/13/2018 3:07 PM >> JANE JAMES LPN [facility] Jun 13, 2018 3:07 PM Taking 2 capsules at bedtime Problem List As Of Date 06/13/2018 Noted Resolved Calculus of gallbladder with other cholecystiti*INVALID FOR*09/22/2016 DIARRHEA SPECIFIED ORGANISM NEC [A08.8] INVALID FOR*09/22/2016 Sebaceous cyst [L72.3] INVALID FOR*09/22/2016 Carcinomatosis [C80.0] INVALID FOR*01/02/2014 Ovarian cancer (HCC) [C56.9] INVALID FOR*09/22/2016 Vaginal atrophy [N95.2] INVALID FOR*09/22/2016 Climacteric [N95.1] INVALID FOR*09/22/2016 Anorectal pain [K62.89] INVALID FOR*09/22/2016 Hemorrhoid [K64.9] INVALID FOR*09/22/2016 Anal fissure [K60.2] INVALID FOR*09/22/2016 Cancer of both ovaries (HCC) [C56.1, C56.2] INVALID FOR* Other secondary hypertension [I15.8] INVALID FOR* Muscle cramps [R25.2] INVALID FOR* Visit Notes: >> Jane James LPN [facility] Jun 13, 2018 3:09 PM Status: Signed Est patient. Discuss recent labs @[facility], next round of treatment. Jane James LPN Encounter Status:Closed by OMAR GROSS DO on 06/14/18 CANCER ANTIGEN 125 Collected: 06/10/2018 Status: F Source: [place] 12:29 PM [facility] [place] CODE TESTS RESULT OUT OF RANGE REFERENCE UNITS LAB L3100.5000 0.0-38.1 U/mL High CA125 62.5 2303 Result Comment: Meghna ECLIA methodology Performed at: - [facility] [id number] [place] Carpenter: Carlo Bass PhD, Phone: [phone] Performed By: #### L3100.5000 #### [facility] (refer to report for specific site) refer to report for address and phone number CBC W/DIFF, AUTOMATED Collected: 06/10/2018 Status: F Source: [place] 12:25 PM [facility] [place] TYPE CODE TESTS RESULT OUT OF RANGE REFERENCE UNITS LAB L100.1000 4.4-11.0 K/mm3 Low WBC 4.3 LAB L100.1200 4.2-5.4 M/mm3 Low RBC 3.33 LAB L100.1300 12.0-15.0 g/dl Low HGB 10.2 LAB L100.1400 37-47 % Low HCT 30.8 LAB L100.1500 81-99 fL Normal MCV 92.5 LAB L100.1600 27.0-32.0 pg Normal MCH 30.6 LAB L100.1700 32-36 g/gl Normal MCHC 33.1 LAB L100.1810 11.6-14.6 % High RDW CV 16.0 LAB L100.1820 35.1-43.9 fl High RDW SD 52.0 LAB L100.1900 150-450 K/mm3 Normal PLT 353 LAB L100.2000 6.2-12.0 fl Normal MPV 9.8 LAB L100.2100 47-70 % Normal NEUT% 55.9 LAB L100.2200 19-41 % Normal LY% 33.3 LAB L100.2300 0-10 % Normal MONO% 8.9 LAB L100.2400 0-5 % Normal EO% 0.5 LAB L100.2500 0-1 % Normal BASO% 0.5 LAB L100.2550 0.0-0.9 % Normal IM GRAN % 0.900 Result Comment: IG% - Immature Granulocytes (promyelocytes, myelocytes and metamyelocytes) > 1% indicates that a LEFT SHIFT is Present. LAB L100.2620 2.0-7.7 X10 3/uL Normal Absolute Neut 2.4 LAB L100.2720 0.83-4.51 X10 3/ul Normal Absolute Lymph 1.43 Performed By: #### L100.0100 #### [facility] [address] [place], [address] COMPREHENSIVE METABOLIC Collected: 06/10/2018 Status: F Source: [place] [facility] 12:25 PM [facility] [place] TYPE CODE TESTS RESULT OUT OF RANGE REFERENCE UNITS LAB L501.0100 74-106 mg/dL Normal GLU 94 Result Comment: Please note revised GLUCOSE reference range effective 2017. LAB L501.1000 7-18 mg/dL Normal BUN 12 LAB L501.1100 0.55-1.02 mg/dL Normal CREAT,SERUM 0.77 Result Comment: The validity of the calculated GFR AND GFRAA in patients over 70 years has not been determined. Clinical correlation is essential. LAB L501.1110 >60 mL/min Normal EST GFR 81 Result Comment: Non- GFR Calc LAB L501.1115 >60 mL/min Normal EST GFR - AA 98 Result Comment: GFR Calc LAB L501.1300 10-20 RATIO Normal BUN/CRE 15.6 LAB L501.1500 6.4-8.2 g/dL T Normal PROT 8.0 LAB L501.1800 3.2-5.0 g/dL Normal ALB 3.7 LAB L501.1950 2.2-4.2 g/dL High GLOB 4.3 LAB L501.2000 0.9-2.4 RATIO Normal A/G 0.9 LAB L501.2200 8.5-10.1 mg/dL CA Normal 8.9 LAB L501.4100 15-37 U/L Normal AST 35 LAB L501.4305 45-117 U/L High ALK P 133 LAB L501.4405 13-56 U/L Normal ALT 56 LAB L501.4600 0.20-1.00 mg/dL T Normal BILI 0.20 LAB L501.5300 136-145 mmol/L NA Normal 143 LAB L501.5600 3.5-5.1 mmol/L K Normal 4.1 LAB L501.5900 98-107 mmol/L CL Normal 105 LAB L501.6100 21.0-32.0 mmol/L Normal CO2 27.0 LAB L501.6200 5-15 Normal GAP 11 Performed By: #### L500.4050 #### [facility] [address] [place], [place], [address] CBC W/DIFF, AUTOMATED Collected: 05/18/2018 Status: F Source: [place] 12:51 PM [facility] [place] TYPE CODE TESTS RESULT OUT OF RANGE REFERENCE UNITS LAB L100.1000 4.4-11.0 K/mm3 Normal WBC 7.1 LAB L100.1200 4.2-5.4 M/mm3 Low RBC 3.66 LAB L100.1300 12.0-15.0 g/dl Low HGB 11.3 LAB L100.1400 37-47 % Low HCT 34.6 LAB L100.1500 81-99 fL Normal MCV 94.5 LAB L100.1600 27.0-32.0 pg Normal MCH 30.9 LAB L100.1700 32-36 g/gl Normal MCHC 32.7 LAB L100.1810 11.6-14.6 % High RDW CV 15.0 LAB L100.1820 35.1-43.9 fl High RDW SD 49.3 LAB L100.1900 150-450 K/mm3 Normal PLT 217 LAB L100.2000 6.2-12.0 fl Normal MPV 9.8 LAB L100.2100 47-70 % Normal NEUT% 65.9 LAB L100.2200 19-41 % Normal LY% 22.5 LAB L100.2300 0-10 % Normal MONO% 7.0 LAB L100.2400 0-5 % Normal EO% 3.4 LAB L100.2500 0-1 % Normal BASO% 0.6 LAB L100.2550 0.0-0.9 % Normal IM GRAN % 0.600 Result Comment: IG% - Immature Granulocytes (promyelocytes, myelocytes and metamyelocytes) > 1% indicates that a LEFT SHIFT is Present. LAB L100.2620 2.0-7.7 X10 3/uL Normal Absolute Neut 4.7 LAB L100.2720 0.83-4.51 X10 3/ul Normal Absolute Lymph 1.60 Performed By: #### L100.0100 #### [facility] [address] [place], [address] COMPREHENSIVE METABOLIC Collected: 05/18/2018 Status: F Source: [place] [facility] 12:51 PM [facility] [place] TYPE CODE TESTS RESULT OUT OF RANGE REFERENCE UNITS LAB L501.0100 74-106 mg/dL Normal GLU 104 Result Comment: Fasting Glucose result from 100 to 125 mg/dL suggests IMPAIRED HOMEOSTASIS per A.D.A. criteria. Please note revised GLUCOSE reference range effective 2017. LAB L501.1000 7-18 mg/dL High BUN 19 LAB L501.1100 0.55-1.02 mg/dL Normal CREAT,SERUM 0.85 Result Comment: The validity of the calculated GFR AND GFRAA in patients over 70 years has not been determined. Clinical correlation is essential. LAB L501.1110 >60 mL/min Normal EST GFR 73 Result Comment: Non- GFR Calc LAB L501.1115 >60 mL/min Normal EST GFR - AA 88 Result Comment: GFR Calc LAB L501.1300 10-20 RATIO High BUN/CRE 22.4 LAB L501.1500 6.4-8.2 g/dL T Normal PROT 7.3 LAB L501.1800 3.2-5.0 g/dL Normal ALB 3.6 LAB L501.1950 2.2-4.2 g/dL Normal GLOB 3.7 LAB L501.2000 0.9-2.4 RATIO Normal A/G 1.0 LAB L501.2200 8.5-10.1 mg/dL CA Normal 8.6 LAB L501.4100 15-37 U/L High AST 42 LAB L501.4305 45-117 U/L Normal ALK P 113 LAB L501.4405 13-56 U/L High ALT 63 LAB L501.4600 0.20-1.00 mg/dL T Normal BILI 0.30 LAB L501.5300 136-145 mmol/L NA Normal 140 LAB L501.5600 3.5-5.1 mmol/L K Normal 3.9 LAB L501.5900 98-107 mmol/L CL Normal 104 LAB L501.6100 21.0-32.0 mmol/L Normal CO2 32.0 LAB L501.6200 5-15 Low GAP 4 Performed By: #### L500.4050 #### [facility] [address] [place], [address] CT ABD/PEL W IVCON Observed: 04/29/2018 Status: F Source: [place] 2:46 PM [facility] REPOSITORY * * *Final Report* * * DATE OF EXAM: Apr 29 2018 2:46PM [facility] 0530 - CT ABD/PEL W IVCON / PROCEDURE REASON: multiple diagnoses * * * * Physician Interpretation * * * * EXAMINATION: CT ABDOMEN AND PELVIS WITH IV CONTRAST HISTORY: Malignant neoplasm of right ovary Malignant neoplasm of left ovary previous cholecystectomy, appendectomy and surgery for total abdominal hysterectomy TECHNIQUE: CT of the abdomen and pelvis was performed using standard technique, scanning from just above the dome of the diaphragm to the symphysis pubis. M: [id number]_1 Contrast: IV: 145 ml of Omnipaque 300 Oral: 50 ml of 50ML Omnipaque [address] Radiation dose: Integrated Dose-length product (DLP) for this visit = 814 mGy*cm. CT Dose Reduction Employed: mAs-kVp adjusted based on patient size-age COMPARISON: 11/06/2017 outside images RESULT: Liver: No mass. Diffuse decrease in attenuation of the liver is compatible with fatty changes. Biliary: No bile duct dilation. Gallbladder absent due to previous surgery Spleen: No mass. No splenomegaly. Pancreas: No mass or duct dilation. Adrenals: No mass. Kidneys: No mass, calculus or hydronephrosis. GI tract: No dilation or wall thickening. There is diastases of the rectus muscles around the level the umbilicus Lymph nodes: * There are multiple lymph nodes near the celiac axis: largest measures 1.9 x 1.0 cm image 46 previously measured 3.0 x 1.9 cm * There are multiple subcentimeter para-aortic at the level of the kidneys the largest 1.3 cm similar to the previous study There is now 1.3 cm lymph node adjacent to the LEFT side the aorta at the level of the LEFT kidney image 60 * Several subcentimeter mesenteric lymph nodes smaller than on the previous study * The large lymph nodes in the region of the greater omentum along the anterior abdominal wall decreased markedly in size and number of largest ones are subcentimeter in size at this time. * There is a 7 mm nodular density probably a lymph node adjacent to the RIGHT side of the ascending colon image 77 Mesentery/Peritoneum: No ascites or mass. Vasculature: The celiac axis and SMA are patent. The portal vein and branches, splenic vein, SMV, and hepatic veins are patent. Aorta is normal caliber. Pelvis: No mass, ascites or fluid collection. Bones/Soft Tissues: Degenerative changes. Lower thorax: Small pericardial effusion and/or pericardial thickening. IMPRESSION: 1. There is been a marked decrease in the size of the lymph nodes in the region of the greater omentum and anterior abdominal wall and within the mesentery. See discussion 2. No new adenopathy is seen. 3. Fatty liver Help Desk Representative: AVA Transcribe Date/Time: Apr 30 2018 4:02P Dictated by : ANTHONY DIAZ DO This examination was interpreted and the report reviewed and electronically signed by: ANTHONY DIAZ DO on Apr 30 2018 4:35PM EST [id number] PROGRESS Observed: 04/29/2018 Status: COMPLETED Source: [place] 2:34 PM [facility] REPOSITORY [facility] ID: [id number] Author: Ofelia Landeros Ct Service: (none) Author Type: (none) Type: Progress Notes Filed: 04/29/2018 2:34 PM Note Text: Radiology Service Progress Note PATIENT NAME: Iva Cueva DATE OF SERVICE: April 29, 2018 TIME: 2:34 PM PATIENT IDENTITY VERIFICATION COMPLETED USING TWO (2) METHODS: Patient confirmed name verbally and Date of . PATIENT GENDER DATA: Female. status: : No status: NO. PATIENT RELEVANT IMPLANT DATA REVIEWED: Yes CONTRAST INDUCED NEPHROPATHY RISK FACTORS: Patient age > 60 years CREATININE: Creatinine Date Value Ref Range Status 01/11/2013 0.70 0.70 - 1.40 mg/dL Final 01/10/2013 0.70 0.70 - 1.40 mg/dL Final 01/09/2013 0.60 (L) 0.70 - 1.40 mg/dL Final Creatinine, Whole Blood (iSTAT) Date Value Ref Range Status 04/29/2018 0.90 0.70 - 1.40 mg/dL Final eGFR-All Other Races Date Value Ref Range Status 04/29/2018 >60 . Final Comment: eGFR (Estimated GFR) Units of measure: mL/min/1.73 meters squared eGFR is derived from the reexpressed MDRD Study equation using the following parameters: serum creatinine, age, gender and race. The creatinine assay has been calibrated to be traceable to IDMS. An eGFR <60 mL/min/1.73m2 for >3 months is consistent with chronic kidney disease. Refer to KDOQI guidelines for clinical interpretation. In patients with unstable renal function, e.g. those with acute kidney injury, the eGFR may not accurately reflect actual GFR. eGFR- Date Value Ref Range Status 04/29/2018 >60 Final P.O.C.T. RESULTS: POC done: Yes, See Lab Tab April 29, 2018 RADIOLOGIST NOTIFIED?: No ALLERGIES: Reviewed and unchanged CONTRAST ALLERGY: NO. PERIPHERAL IV ACCESS: Ambulatory: IV type: A peripheral IV was started in the Left antecubital site with a Angio cath: 22 gauge., Site assessment: Clean,Dry and Intact, Site disposition Discontinued RADIOLOGY DEPARTMENT: CT; Exam(s) Completed: Abdomen/Pelvis SIGNED BY: Ofelia Landeros Ct April 29, 2018 2:34 PM [facility] MEI BMP Collected: 04/29/2018 Status: F Source: [place] 2:00 PM [facility] REPOSITORY TYPE CODE TESTS RESULT OUT OF REFERENCE UNITS RANGE LAB NAWB 132-148 mmol/L Sodium, Whole 139 Bld LAB K1WB 3.5-5.0 mmol/L Potassium,Who 4.3 le Bld LAB CLWB 98-110 mmol/L Chloride, 100 Whole Bld LAB ICAWB 1.08-1.30 mmol/L Ionized 1.17 Calcium, WB Result Comment: Please note: This value represents ionized calcium not total calcium. LAB CO2WB 23-32 mmol/L TCO2, Whole Blood 28 LAB GLUWB 65-100 mg/dL Glucose, Whole Bld 92 LAB BUNWB 8-25 mg/dL BUN, Whole Blood 17 LAB BCRET 0.70-1.40 mg/dL Creatinine,Wh ole Bld 0.90 LAB AGAPWB 0-15 mmol/L Anion Gap, Whole Bld 11 LAB GFRAA eGFR- Amer. >60 LAB GFRNAA . eGFR-All Other Races >60 Result Comment: eGFR (Estimated GFR) Units of measure: mL/min/1.73 meters squared eGFR is derived from the reexpressed MDRD Study equation using the following parameters: serum creatinine, age, gender and race. The creatinine assay has been calibrated to be traceable to IDMS. An eGFR <60 mL/min/1.73m2 for >3 months is consistent with chronic kidney disease. Refer to KDOQI guidelines for clinical interpretation. In patients with unstable renal function, e.g. those with acute kidney injury, the eGFR may not accurately reflect actual GFR. [facility] ABS GR + CBC Collected: 04/29/2018 Status: F Source: [place] 2:00 PM [facility] REPOSITORY TYPE CODE TESTS RESULT OUT OF REFERENCE UNITS RANGE LAB WWBC 3.70-11.00 k/uL [place] WBC 4.60 LAB WRBC 3.90-5.20 m/uL Low [place] RBC 3.30 LAB WHGB 11.5-15.5 g/dL Low [place] Hemoglobin 10.4 LAB WHCT 36.0-46.0 % Low [place] Hematocrit 32.4 LAB WMCV 80.0-100.0 fL [place] MCV 98.2 LAB WMCH 26.0-34.0 pg [place] MCH 31.5 LAB WMCHC 30.5-36.0 g/dL [place] MCHC 32.1 LAB WRDW 11.5-15.0 % [place] High RDW 16.8 LAB WPLT 150-400 k/uL [place] High Platelet Cnt 597 LAB WMPV 9.0-12.7 fL [place] MPV 9.9 Result Comment: Test performed at: [facility] [place] [address] [facility] [place] [address]. LAB ABGRAN 1.45-7.50 k/uL Absol Gran 2.53 Count [facility] CREATININE Collected: 04/29/2018 Status: F Source: [place] 1:22 PM [facility] REPOSITORY TYPE CODE TESTS RESULT OUT OF REFERENCE UNITS RANGE LAB WCRET 0.7-1.4 mg/dL [place] Creatinine 0.9 CNPN Observed: 04/24/2018 Status: COMPLETED Source: [place] 12:00 AM [facility] REPOSITORY Telephone (PRISCILLA) IVA CUEVA ([id number]) 1955 F Date Time Provider Department 04/24/18 OMAR GROSS During your visit today, we recorded the following information about you: Aruna Nielson 04/24/2018 11:47 AM Signed Elli from [facility] called asking for information about the patients ordered CT scan. The patient decided that he would like to have the CT at [facility] and the order needs to be sent over. Please call Elli back at [phone]. Jane James LPN 04/24/2018 11:50 AM Signed Patient is here. Since the CT scan has already been precerted for [facility], patient has decided to have the test here. Patient is scheduling today. Jane Woodard Psr 04/24/2018 12:07 PM Signed Patient was scheduled. Omar Gross DO 04/26/2018 8:40 AM Signed I've received several notes from the precert department letting me know that the CT chest is not approved by her insurance. Patient does not need a CT chest, just A/P that is scheduled for Sunday. I just want to make sure the patient is aware of this. Also since she's had all previous CTs at [facility], we'll need to get a CD of her most recent CTs from there sent her to get uploaded. DO Ashleigh Dominguez PSR 04/26/2018 9:05 AM Signed Left voicemail for patient to return call re: below and to arrange for documentation from [facility] results. Ashleigh Gandara PSR Daiana Aden PSR 04/26/2018 11:54 AM Signed Patient returned call and is aware of message below Jane James LPN 04/26/2018 12:21 PM Signed Disc requested from [facility]. Jane James LPN Allergies As of Date: 04/24/2018 Noted Allergy Reaction CODEINE 05/03/2007 5 - Intolerance PERCOCET (OXYCODONE-ACETAMINOPHEN)06/29/2015 9 - Itching Seasonal [Other] 06/05/2007 ULTRAM (TRAMADOL HCL) 01/08/2013 9 - Itching VICODIN (HYDROCODONE-ACETAMINOPHE*08/26/2007 9 - Itching Date Reviewed: 04/18/2018 Reviewed by: Jane James LPN - Fully Assessed Reason for Visit: Appointment [[id number]] Prescriptions as of 04/24/2018 Sig: VERAPAMIL ER 120 MG 24 HR CAP* Take 2 capsules by mouth debora* ZOLPIDEM 5 MG TABLET Take 1 tablet by mouth at bed* ONDANSETRON HCL 8 MG TABLET Take 1 tablet by mouth every * NABUMETONE 500 MG TABLET Take 2 tablets by mouth twice* LIDOCAINE-PRILOCAINE 2.5 %-2.* Apply 1 application to affect* AMOXICILLIN 500 MG TABLET Take 500 mg by mouth four sharyn* OLANZAPINE 10 MG TABLET Take 1 tablet by mouth daily * Patient taking differently: Take 10 mg by mouth daily at * MELATONIN 10 MG TABLET Take 1 tablet by mouth at bed* CYCLOBENZAPRINE 10 MG TABLET Take 1 tablet by mouth every * PROMETHAZINE 25 MG TABLET Take 1 tablet by mouth every * OMEPRAZOLE 40 MG CAPSULE,BASSEM* Take 1 capsule by mouth once * MAGNESIUM OXIDE 400 MG TABLET Take 400 mg by mouth once nilda* MORPHINE CONCENTRATE 100 MG/5* Take 0.5 mL by mouth every 4 * GABAPENTIN 300 MG CAPSULE Take 3 capsules by mouth thre* Patient taking differently: Take 300 mg by mouth daily at* HYDROCODONE-HOMATROPINE 5 MG-* Take 5 mL by mouth every 4 ho* DEXAMETHASONE 4 MG TABLET Take 1 tablet twice the day p* ONDANSETRON HCL 8 MG TABLET Take 1 tablet by mouth every * FLUTICASONE 50 MCG/ACTUATION * Use 1 [place] in each nostril o* ERGOCALCIFEROL (VITAMIN D2) 5* Take 2 capsules a week for 8 * LORATADINE 10 MG TABLET Take 10 mg by mouth once debora* DOCUSATE SODIUM 100 MG CAPSULE Take 100 mg by mouth twice da* POLYETHYLENE GLYCOL 3350 17 G* Take 17 g by mouth once daily. NAPROXEN SODIUM 220 MG TABLET Take 220 mg by mouth as neede* SENOKOT ORAL Take by mouth once daily. MULTIVITAMIN TABLET Take 1 tablet by mouth once d* Problem List As Of Date 04/24/2018 Noted Resolved Calculus of gallbladder with other cholecystiti*INVALID FOR*09/22/2016 DIARRHEA SPECIFIED ORGANISM NEC [A08.8] INVALID FOR*09/22/2016 Sebaceous cyst [L72.3] INVALID FOR*09/22/2016 Carcinomatosis [C80.0] INVALID FOR*01/02/2014 Ovarian cancer (HCC) [C56.9] INVALID FOR*09/22/2016 Vaginal atrophy [N95.2] INVALID FOR*09/22/2016 Climacteric [N95.1] INVALID FOR*09/22/2016 Anorectal pain [K62.89] INVALID FOR*09/22/2016 Hemorrhoid [K64.9] INVALID FOR*09/22/2016 Anal fissure [K60.2] INVALID FOR*09/22/2016 Cancer of both ovaries (HCC) [C56.1, C56.2] INVALID FOR* Other secondary hypertension [I15.8] INVALID FOR* Muscle cramps [R25.2] INVALID FOR* Encounter Status:Closed by ENA ADEN ALLISON on 04/26/18 DOWNTIME REPORT Observed: 04/18/2018 Status: F Source: [place] 12:18 PM [facility] Medical Records Department [address] [place] [address] Downtime Report MR#: [id number] Acct: [id number] Name: IVA CUEVA Rep #: [id number] : 1955 63 From: [place] PCP: Peter Deras MD Status: REG CLI This patient was seen during an EMR downtime April 01, 2018 - April 08, 2018. This patient may have a combination of paper and electronic documentation or all paper documentation. All documentation is viewable within the e-chart portion of [facility] for each patient visit. DOWNTIME REPORT Observed: 04/18/2018 Status: F Source: [place] 12:18 PM [facility] Medical Records Department [address] [place] [address] Downtime Report MR#: [id number] Acct: [id number] Name: IVA CUEVA Rep #: [id number] : 1955 63 From: Kamron [place] PCP: Peter Deras MD Status: REG CLI This patient was seen during an EMR downtime April 01, 2018 - April 08, 2018. This patient may have a combination of paper and electronic documentation or all paper documentation. All documentation is viewable within the e-chart portion of [employer] for each patient visit. DOWNTIME REPORT Observed: 04/18/2018 Status: F Source: [place] 12:17 PM [facility] Medical Records Department [address] [place] [address] Downtime Report MR#: [id number] Acct: [id number] Name: IVA CUEVA Rep #: [id number] : 1955 63 From: Kamron [place] PCP: Peter Deras MD Status: REG CLI This patient was seen during an EMR downtime April 01, 2018 - April 08, 2018. This patient may have a combination of paper and electronic documentation or all paper documentation. All documentation is viewable within the e-chart portion of [employer] for each patient visit. DOWNTIME REPORT Observed: 04/18/2018 Status: F Source: [place] 12:17 PM [facility] Medical Records Department [address] [place] [address] Downtime Report MR#: [id number] Acct: [id number] Name: IVA CUEVA Rep #: [id number] : 1955 63 From: Kamron Oh PCP: Peter Deras MD Status: REG CLI This patient was seen during an EMR downtime April 01, 2018 - April 08, 2018. This patient may have a combination of paper and electronic documentation or all paper documentation. All documentation is viewable within the e-chart portion of [employer] for each patient visit. DOWNTIME REPORT Observed: 04/18/2018 Status: F Source: [place] 12:16 PM [facility] Medical Records Department [address] [place] [address] Downtime Report MR#: [id number] Acct: [id number] Name: IVA CUEVA Rep #: [id number] : 1955 63 From: Kamron Oh PCP: Peter Deras MD Status: DEP CLI This patient was seen during an EMR downtime April 01, 2018 - April 08, 2018. This patient may have a combination of paper and electronic documentation or all paper documentation. All documentation is viewable within the e-chart portion of Guided Interventions for each patient visit. PROGRESS Observed: 04/18/2018 Status: COMPLETED Source: [place] 12:03 PM [facility] REPOSITORY [facility] ID: [id number] Author: Terrance Renee Service: (none) Author Type: Physician Type: Progress Notes Filed: 04/19/2018 8:10 AM Note Text: Diagnosis: 1) Ovarian cancer. ? HPI: The patient is a 63 year old female who presented to her PCP prior to a trip to [facility] for vaccinations. She reported that she was having lower pelvic pain and bloating as well as lower leg cramping. She had a BMP done and her LFTs were elevated so her PCP ordered an ultrasound of the liver. The ultrasound showed some mild ascites and a right lower quadrant mass. She had a CT scan of the chest/abdomen/pelvis which showed multiple pelvic masses and enlarged lymph nodes. A pelvic ultrasound was also done. Her CA125 was elevated at 2342 U/mL (CEA was WNL). She had a colonoscopy on 10/28/2012 which showed some microscopic colitis and hemorrhoids but was otherwise negative. Random biopsies were obtained and the pathology demonstrated a non-small cell carcinoma. Immunostains were positive for CK 7, CK 8, estrogen receptors. Specimen was negative for CK 20. ? PRIOR TREATMENT: 1) Carboplatin/paclitaxel x3 cycles. 2) 01/09/2013 - Exploratory laparotomy, total abdominal hysterectomy, bilateral salpingo- oophorectomy, omentectomy, pelvic peritoneal stripping, excision of peritoneal nodules, left pelvic lymph node biopsy, argon beam ablation of peritoneal implants with Dr. Avery, and interval debulking surgery for initial resection of ovarian cancer. 3) Received one post operative cycle carbo/Taxol 01/27/13. 4) Was hospitalized on 02/05/13 for small bowel obstruction. It was relieved with medical/conservative management. 5) Carbo with weekly Taxol x 6 cycles, completed 05/27/13. 6) [place]/carbo/cassandra x cycles for biopsy proven metastatic disease (intrahepatic metastases--Had been asymptomatic, but was noted to have an increase in CA-125. CT scan of the abdomen and pelvis was obtained to further evaluate. The study demonstrated 2 lesions within the liver that were suspicious for metastatic disease. She underwent a CT- guided biopsy. 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 7) Bevacizumab. 8) Carbo/Taxol x6 cycles completed 11/09/2016. 9) Doxil. PD following 5 cycles. ? Current therapy: 1) Topotecan. ? Presents for ongoing oncologic management. Evaluation for cycle #8. ? Interim history: She's been feeling well this last week. Previous to her diagnosis of ovarian cancer she had occasional nocturnal cramps of the legs but these have become a lot more pronounced than last couple months didn't seem to be getting worse. she required blood transfusion more recently with chemotherapy. Avastin was added with last 2 cycles chemotherapy and she presented with hypertension which is managed with medication. ? Otherwise she hasn't had any abdominal pain or bloating. No episodes of jaundice. No nausea or vomiting or diarrhea. Appetite is been doing well. ?repeat labs showed no change in her CA-125 level at 48. She also had low platelets and moderate anemia. She will be going on a cruise to [place] the second week of April. She saw Dr. Saravia last week and he recommended repeat staging CT scan and possible biopsy of metastasis for PD-L1 for possible chemotherapy. If she still have persistent disease, he also mentioned possibility of starting her on weekly carboplatin, paclitaxel and a PARP inhibitor (Nirapirib) Medications and allergies as below personally reviewed by me today. Any changes documented in appropriate section. ? ROS: Constitutional: Denies episodes night sweats. Neuro: Denies KLEIN, vertigo, dizziness and imbalance. HEENT: No recent change in voice, vision or hearing. Resp: Denies wheeze and hemoptysis. CVS: No exertional chest pain/pressure or tightness. No PND or orthopnea. No lower extremity swelling or edema. GI: Denies dysgeusia. Denies symptoms of stomatitis. Denies dysphagia and odynophagia. : Denies dysuria or gross hematuria. Endo: Denies hot flashes. Denies polyuria and polydipsia. Denies heat and cold intolerance. Musculoskeletal: Stable symptoms of left-sided sciatica with pain down lateral aspect of thigh. Derm: Denies rash. Denies diffuse pruritis. Heme: See above. Psych: Normal mood. ? PHYSICAL EXAM: Well-appearing and in no acute distress. performance status: 90% BP 177/80 Pulse 79 Temp (Src) 97.5 (Temporal Artery) Wt 191 lb (86.6kg) LMP 12/10/2011 EYES: Sclerae are anicteric bilaterally. NECK: Supple. LYMPHATIC: There is no palpable cervical, supraclavicular adenopathy. RESPIRATORY: Inspiratory breath sounds are of normal intensity in all rodriguez. No rales, wheezes or rhonchi. CARDIOVASCULAR: Rhythm is regular. Normal intensity S1/S2. There is no gallop or murmur. ABDOMEN: The abdomen is nondistended. There is no organomegaly. No tenderness. No fluid wave. Extremities: Free of edema. SKIN: No jaundice or rash. No petechiae. NEUROLOGIC: rand maker II-XII are grossly intact. No focal motor weakness. ? LABS: review by me and the patient today. ASSESSMENT/PLAN: (C56.1, C56.2) Cancer of both ovaries (HCC) (primary encounter diagnosis) (C78.7) Liver metastases (HCC) KPS is 90%. Biopsy-proven recurrence. [place] refractory.? -She is tolerating topotecan well thus far except for anemia and thrombocytopenia. leukopenia stable with Neulasta injection after chemotherapy treatment -Somatic BRCA mutation analysis negative--see scanned [facility] report 01/15/2018. -tolerate Avastin except for hypertension Plan: -hold chemotherapy because of thrombocytopenia -repeat CT abdomen and pelvis next week for possible biopsy -reschedule next cycle on 3 week schedule. ? (I15.8) Other secondary hypertension Assessment: -HTN from previous bevacizumab. -Responded well to lisinopril, but had cough. Plan: -increased verapamil 240mg once daily AND Monitor blood pressure. -If her BP still high next week, and then possibly adding losartan Terrance Renee MD Cc: Dr. Peter Jo CNOVSP Observed: 04/18/2018 Status: COMPLETED Source: [place] 11:30 AM [facility] REPOSITORY Visit (SP) Office (PRISCILLA) ANAYIVA ([id number]) 1955 F Date Time Provider Department 04/18/18 11:30 AM TERRANCE RENEE During your visit today, we recorded the following information about you: Temperature Pulse Blood pressure Weight 97.5 degrees 79/minute 177/80 86.6 kg Jane Jaems LPN 04/18/2018 11:50 AM Signed Est patient. Labs at [facility]. Jane Renee MD 04/19/2018 8:10 AM Signed Diagnosis: 1) Ovarian cancer. ? HPI: The patient is a 63 year old female who presented to her PCP prior to a trip to [facility] for vaccinations. She reported that she was having lower pelvic pain and bloating as well as lower leg cramping. She had a BMP done and her LFTs were elevated so her PCP ordered an ultrasound of the liver. The ultrasound showed some mild ascites and a right lower quadrant mass. She had a CT scan of the chest/abdomen/pelvis which showed multiple pelvic masses and enlarged lymph nodes. A pelvic ultrasound was also done. Her CA125 was elevated at 2342 U/mL (CEA was WNL). She had a colonoscopy on 10/28/2012 which showed some microscopic colitis and hemorrhoids but was otherwise negative. Random biopsies were obtained and the pathology demonstrated a non- small cell carcinoma. Immunostains were positive for CK 7, CK 8, estrogen receptors. Specimen was negative for CK 20. ? PRIOR TREATMENT: 1) Carboplatin/paclitaxel x3 cycles. 2) 01/09/2013 - Exploratory laparotomy, total abdominal hysterectomy, bilateral salpingo- oophorectomy, omentectomy, pelvic peritoneal stripping, excision of peritoneal nodules, left pelvic lymph node biopsy, argon beam ablation of peritoneal implants with Dr. Avery, and interval debulking surgery for initial resection of ovarian cancer. 3) Received one post operative cycle carbo/Taxol 01/27/13. 4) Was hospitalized on 02/05/13 for small bowel obstruction. It was relieved with medical/conservative management. 5) Carbo with weekly Taxol x 6 cycles, completed 05/27/13. 6) [place]/carbo/cassandra x cycles for biopsy proven metastatic disease (intrahepatic metastases--Had been asymptomatic, but was noted to have an increase in CA-125. CT scan of the abdomen and pelvis was obtained to further evaluate. The study demonstrated 2 lesions within the liver that were suspicious for metastatic disease. She underwent a CT-guided biopsy. 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 7) Bevacizumab. 8) Carbo/Taxol x6 cycles completed 11/09/2016. 9) Doxil. PD following 5 cycles. ? Current therapy: 1) Topotecan. ? Presents for ongoing oncologic management. Evaluation for cycle #8. ? Interim history: She's been feeling well this last week. Previous to her diagnosis of ovarian cancer she had occasional nocturnal cramps of the legs but these have become a lot more pronounced than last couple months didn't seem to be getting worse. she required blood transfusion more recently with chemotherapy. Avastin was added with last 2 cycles chemotherapy and she presented with hypertension which is managed with medication. ? Otherwise she hasn't had any abdominal pain or bloating. No episodes of jaundice. No nausea or vomiting or diarrhea. Appetite is been doing well. ?repeat labs showed no change in her CA-125 level at 48. She also had low platelets and moderate anemia. She will be going on a cruise to [place] the second week of April. She saw Dr. Saravia last week and he recommended repeat staging CT scan and possible biopsy of metastasis for PD-L1 for possible chemotherapy. If she still have persistent disease, he also mentioned possibility of starting her on weekly carboplatin, paclitaxel and a PARP inhibitor (Nirapirib) Medications and allergies as below personally reviewed by me today. Any changes documented in appropriate section. ? ROS: Constitutional: Denies episodes night sweats. Neuro: Denies KLEIN, vertigo, dizziness and imbalance. HEENT: No recent change in voice, vision or hearing. Resp: Denies wheeze and hemoptysis. CVS: No exertional chest pain/pressure or tightness. No PND or orthopnea. No lower extremity swelling or edema. GI: Denies dysgeusia. Denies symptoms of stomatitis. Denies dysphagia and odynophagia. : Denies dysuria or gross hematuria. Endo: Denies hot flashes. Denies polyuria and polydipsia. Denies heat and cold intolerance. Musculoskeletal: Stable symptoms of left-sided sciatica with pain down lateral aspect of thigh. Derm: Denies rash. Denies diffuse pruritis. Heme: See above. Psych: Normal mood. ? PHYSICAL EXAM: Well-appearing and in no acute distress. performance status: 90% BP 177/80 Pulse 79 Temp (Src) 97.5 (Temporal Artery) Wt 191 lb (86.6kg) LMP 12/10/2011 EYES: Sclerae are anicteric bilaterally. NECK: Supple. LYMPHATIC: There is no palpable cervical, supraclavicular adenopathy. RESPIRATORY: Inspiratory breath sounds are of normal intensity in all rodriguez. No rales, wheezes or rhonchi. CARDIOVASCULAR: Rhythm is regular. Normal intensity S1/S2. There is no gallop or murmur. ABDOMEN: The abdomen is nondistended. There is no organomegaly. No tenderness. No fluid wave. Extremities: Free of edema. SKIN: No jaundice or rash. No petechiae. NEUROLOGIC: rand maker II-XII are grossly intact. No focal motor weakness. ? LABS: review by me and the patient today. ASSESSMENT/PLAN: (C56.1, C56.2) Cancer of both ovaries (HCC) (primary encounter diagnosis) (C78.7) Liver metastases (HCC) KPS is 90%. Biopsy-proven recurrence. [place] refractory.? -She is tolerating topotecan well thus far except for anemia and thrombocytopenia. leukopenia stable with Neulasta injection after chemotherapy treatment -Somatic BRCA mutation analysis negative--see scanned [facility] report 01/15/2018. -tolerate Avastin except for hypertension Plan: -hold chemotherapy because of thrombocytopenia -repeat CT abdomen and pelvis next week for possible biopsy -reschedule next cycle on 3 week schedule. ? (I15.8) Other secondary hypertension Assessment: -HTN from previous bevacizumab. -Responded well to lisinopril, but had cough. Plan: -increased verapamil 240mg once daily AND Monitor blood pressure. -If her BP still high next week, and then possibly adding losartan Terrance Renee MD Cc: Dr. Peter Jo Referring Provider: OMAR GROSS [[id number]] Allergies As of Date: 04/18/2018 Noted Allergy Reaction CODEINE 05/03/2007 5 - Intolerance PERCOCET (OXYCODONE-ACETAMINOPHEN)06/29/2015 9 - Itching Seasonal [Other] 06/05/2007 ULTRAM (TRAMADOL HCL) 01/08/2013 9 - Itching VICODIN (HYDROCODONE-ACETAMINOPHE*08/26/2007 9 - Itching Date Reviewed: 04/18/2018 Reviewed by: Jane James LPN - Fully Assessed Reason for Visit: Established Patient [175] Primary Visit Diagnosis:Other secondary hypertension [I15.8] Other Visit Diagnosis:Cancer of both ovaries (HCC) [C56.1, C56.2] Level of Service: EST PATIENT VISIT LEVEL 4 [[id number]] Disposition: Return in about 1 week (around 04/25/2018). LOS history recorded Follow-up and Disposition History Recorded Prescriptions as of 04/18/2018 Sig: X VERAPAMIL ER 120 MG 24 HR CAP* Take 2 capsules by mouth debora* TBO-FILGRASTIM 480 MCG/0.8 ML* Inject 480 mcg subcutaneously* ZOLPIDEM 5 MG TABLET Take 1 tablet by mouth at bed* ONDANSETRON HCL 8 MG TABLET Take 1 tablet by mouth every * NABUMETONE 500 MG TABLET Take 2 tablets by mouth twice* LIDOCAINE-PRILOCAINE 2.5 %-2.* Apply 1 application to affect* OLANZAPINE 10 MG TABLET Take 1 tablet by mouth daily * Patient taking differently: Take 10 mg by mouth daily at * MELATONIN 10 MG TABLET Take 1 tablet by mouth at bed* CYCLOBENZAPRINE 10 MG TABLET Take 1 tablet by mouth every * PROMETHAZINE 25 MG TABLET Take 1 tablet by mouth every * OMEPRAZOLE 40 MG CAPSULE,BASSEM* Take 1 capsule by mouth once * MORPHINE CONCENTRATE 100 MG/5* Take 0.5 mL by mouth every 4 * GABAPENTIN 300 MG CAPSULE Take 3 capsules by mouth thre* Patient taking differently: Take 300 mg by mouth daily at* LORATADINE 10 MG TABLET Take 10 mg by mouth once debora* DOCUSATE SODIUM 100 MG CAPSULE Take 100 mg by mouth twice da* POLYETHYLENE GLYCOL 3350 17 G* Take 17 g by mouth once daily. NAPROXEN SODIUM 220 MG TABLET Take 220 mg by mouth as neede* SENOKOT ORAL Take by mouth once daily. AMOXICILLIN 500 MG TABLET Take 500 mg by mouth four sharyn* MAGNESIUM OXIDE 400 MG TABLET Take 400 mg by mouth once nilda* HYDROCODONE-HOMATROPINE 5 MG-* Take 5 mL by mouth every 4 ho* DEXAMETHASONE 4 MG TABLET Take 1 tablet twice the day p* ONDANSETRON HCL 8 MG TABLET Take 1 tablet by mouth every * FLUTICASONE 50 MCG/ACTUATION * Use 1 Gulliver in each nostril o* ERGOCALCIFEROL (VITAMIN D2) 5* Take 2 capsules a week for 8 * MULTIVITAMIN TABLET Take 1 tablet by mouth once d* Problem List As Of Date 04/18/2018 Noted Resolved Calculus of gallbladder with other cholecystiti*INVALID FOR*09/22/2016 DIARRHEA SPECIFIED ORGANISM NEC [A08.8] INVALID FOR*09/22/2016 Sebaceous cyst [L72.3] INVALID FOR*09/22/2016 Carcinomatosis [C80.0] INVALID FOR*01/02/2014 Ovarian cancer (HCC) [C56.9] INVALID FOR*09/22/2016 Vaginal atrophy [N95.2] INVALID FOR*09/22/2016 Climacteric [N95.1] INVALID FOR*09/22/2016 Anorectal pain [K62.89] INVALID FOR*09/22/2016 Hemorrhoid [K64.9] INVALID FOR*09/22/2016 Anal fissure [K60.2] INVALID FOR*09/22/2016 Cancer of both ovaries (HCC) [C56.1, C56.2] INVALID FOR* Other secondary hypertension [I15.8] INVALID FOR* Muscle cramps [R25.2] INVALID FOR* Visit Notes: >> Jane James LPN [facility] Apr 18, 2018 11:36 AM Status: Signed Est patient. Labs at [facility]. Jane James LPN Encounter Status:Closed by TERRANCE RENEE MD on 04/19/18 CNCO Observed: 04/18/2018 Status: COMPLETED Source: [place] 12:00 AM [facility] REPOSITORY Letter Text [address] [place], [place] [address] Catie Jo M.D. high voltage electrician Section of Gynecologic Oncology [employer] and [facility] [place] Office: [phone] [email or web address] April 18, 2018 RE: Iva Cueva DOS: 04/12/[address] Bruno This letter is in follow up for your patient, Iva Cueva, who was recently seen in my office. Please see my completed note from that visit in EPIC. If I can be of any further assistance, or if you have any questions, please contact my office. Sincerely, Catie Jo M.D. CMM/adm CC: DO Peter Salazar MD CNPN Observed: 04/18/2018 Status: COMPLETED Source: [place] 12:00 AM [facility] REPOSITORY Telephone (HEMAWS) IVA CUEVA ([id number]) 1955 F Date Time Provider Department 04/18/18 TERRANCE RENEE During your visit today, we recorded the following information about you: Terrance Renee MD 04/18/2018 12:14 PM Signed Please asked patient to increase verapamil 240mg once daily and monitor blood pressure at home. Patient's request for medication is as follows Signed Prescriptions Disp Refills verapamil ER (VERELAN) 120 mg 24 hr capsule 60 capsule 5 Sig: Take 2 capsules by mouth daily at bedtime. GREGORIO: No Authorizing Provider: TERRANCE RENEE Order entered - please phone pharmacy and notify patient. Terrance Renee MD Call next week after her CT scan about her blood pressure. MD Lorie Gupta, RN, RN 04/18/2018 12:30 PM Signed Called patient, no answer. Left message to call this office back. Please give patient message below when she calls back and document/close once finished. Thank you. Lora Escobar 04/18/2018 2:21 PM Signed Please schedule office visit with Dr. Gross after patient has CT and Labs done at [facility]. Hari Avilez PSEvan 04/18/2018 2:24 PM Signed Patient called back and acknowledges understanding of message from Dr. Renee. Hari Avilez PSR Josephine Woodard Psr 04/18/2018 7:49 PM Signed Patient scheduled to see Dr. Gross on 05/07 at 8:50. Please contact patient and confirm this date/time with her. Mar Treadwell Psr 04/19/2018 8:29 AM Signed I called and spoke to Iva and let her know about the below appointment and she stated this appointment will not work. She is leaving for vacation on 05/03/18 and will be gone the , she is requesting an appointment the week of 04/29/18. I let her know that will not be here that week and that I would let him know when she is going to be gone and when she is requesting to be seen and see what he recommends when he comes back on Monday 04/23, she confirmed this and will look forward to hearing from us next week. Her CT scan is scheduled at [facility] for 04/26/18 Mar Treadwell Psr Omar rGoss DO 04/20/2018 10:10 AM Signed We'll schedule follow up based on upcoming CT results. DO Lora Dominguez Psr Shawn 04/22/2018 10:37 AM Signed Spoke with patient and informed her our office will be contacting her after CT @ [facility] on 04/26. Allergies As of Date: 04/18/2018 Noted Allergy Reaction CODEINE 05/03/2007 5 - Intolerance PERCOCET (OXYCODONE-ACETAMINOPHEN)06/29/2015 9 - Itching Seasonal [Other] 06/05/2007 ULTRAM (TRAMADOL HCL) 01/08/2013 9 - Itching VICODIN (HYDROCODONE-ACETAMINOPHE*08/26/2007 9 - Itching Date Reviewed: 04/18/2018 Reviewed by: Jane James LPN - Fully Assessed Reason for Visit: Blood Pressure [15] Primary Visit Diagnosis:Other secondary hypertension [I15.8] Other Visit Diagnosis:Cancer of both ovaries (HCC) [C56.1, C56.2] Order(s):verapamil ER (VERELAN) 120 mg 24 hr capsuleTake 2 capsules by mouth daily at bedtime.Disp: 60 capsuleRfl: 5 Prescriptions as of 04/18/2018 Sig: VERAPAMIL ER 120 MG 24 HR CAP* Take 2 capsules by mouth debora* TBO-FILGRASTIM 480 MCG/0.8 ML* Inject 480 mcg subcutaneously* ZOLPIDEM 5 MG TABLET Take 1 tablet by mouth at bed* ONDANSETRON HCL 8 MG TABLET Take 1 tablet by mouth every * NABUMETONE 500 MG TABLET Take 2 tablets by mouth twice* LIDOCAINE-PRILOCAINE 2.5 %-2.* Apply 1 application to affect* AMOXICILLIN 500 MG TABLET Take 500 mg by mouth four sharyn* OLANZAPINE 10 MG TABLET Take 1 tablet by mouth daily * Patient taking differently: Take 10 mg by mouth daily at * MELATONIN 10 MG TABLET Take 1 tablet by mouth at bed* CYCLOBENZAPRINE 10 MG TABLET Take 1 tablet by mouth every * PROMETHAZINE 25 MG TABLET Take 1 tablet by mouth every * OMEPRAZOLE 40 MG CAPSULE,BASSEM* Take 1 capsule by mouth once * MAGNESIUM OXIDE 400 MG TABLET Take 400 mg by mouth once nilda* MORPHINE CONCENTRATE 100 MG/5* Take 0.5 mL by mouth every 4 * GABAPENTIN 300 MG CAPSULE Take 3 capsules by mouth thre* Patient taking differently: Take 300 mg by mouth daily at* HYDROCODONE-HOMATROPINE 5 MG-* Take 5 mL by mouth every 4 ho* DEXAMETHASONE 4 MG TABLET Take 1 tablet twice the day p* ONDANSETRON HCL 8 MG TABLET Take 1 tablet by mouth every * FLUTICASONE 50 MCG/ACTUATION * Use 1 Gulliver in each nostril o* ERGOCALCIFEROL (VITAMIN D2) 5* Take 2 capsules a week for 8 * LORATADINE 10 MG TABLET Take 10 mg by mouth once debora* DOCUSATE SODIUM 100 MG CAPSULE Take 100 mg by mouth twice da* POLYETHYLENE GLYCOL 3350 17 G* Take 17 g by mouth once daily. NAPROXEN SODIUM 220 MG TABLET Take 220 mg by mouth as neede* SENOKOT ORAL Take by mouth once daily. MULTIVITAMIN TABLET Take 1 tablet by mouth once d* Problem List As Of Date 04/18/2018 Noted Resolved Calculus of gallbladder with other cholecystiti*INVALID FOR*09/22/2016 DIARRHEA SPECIFIED ORGANISM NEC [A08.8] INVALID FOR*09/22/2016 Sebaceous cyst [L72.3] INVALID FOR*09/22/2016 Carcinomatosis [C80.0] INVALID FOR*01/02/2014 Ovarian cancer (HCC) [C56.9] INVALID FOR*09/22/2016 Vaginal atrophy [N95.2] INVALID FOR*09/22/2016 Climacteric [N95.1] INVALID FOR*09/22/2016 Anorectal pain [K62.89] INVALID FOR*09/22/2016 Hemorrhoid [K64.9] INVALID FOR*09/22/2016 Anal fissure [K60.2] INVALID FOR*09/22/2016 Cancer of both ovaries (HCC) [C56.1, C56.2] INVALID FOR* Other secondary hypertension [I15.8] INVALID FOR* Muscle cramps [R25.2] INVALID FOR* Prescriptions ordered this encounter Disp Refills Start End VERAPAMIL ER 120 MG 24 HR CAPSULE,EX* 60 c* 5 04/18/2018 Class: Med Update Route: ORAL Sig: Take 2 capsules by mouth daily at bedtime. Medications Discontinued During This Encounter verapamil ER (VERELAN) 120 mg 24 hr * 60 c* 5 04/18/2018 04/18/2018 Route: ORAL Sig: Take 2 capsules by mouth daily at bedtime. Disc: Reason for discontinue is not on file. Encounter Status:Closed by TERRANCE RENEE MD on 04/19/18 CBC W/DIFF, AUTOMATED Collected: 04/16/2018 Status: C Source: [place] 10:19 AM [facility] [place] Order Comment: CRITICAL VALUE VERIFIED. CALLED TO LORIE AT [facility] 04/16/18 Ran7 Tiki Tran. RESULTS READ BACK BY SAME . TYPE CODE TESTS RESULT OUT OF REFERENCE UNITS RANGE LAB L100.1000 4.4-11.0 K/mm3 Low WBC 3.8 LAB L100.1200 4.2-5.4 M/mm3 Low RBC 3.17 LAB L100.1300 12.0-15.0 g/dl Low HGB 9.8 LAB L100.1400 37-47 % Low HCT 29.5 LAB L100.1500 81-99 fL MCV Normal 93.1 LAB L100.1600 27.0-32.0 pg MCH Normal 30.9 LAB L100.1700 32-36 g/gl MCHC Normal 33.2 LAB L100.1810 11.6-14.6 % RDW CV High 15.5 LAB L100.1820 35.1-43.9 fl RDW SD High 52.5 LAB L100.1900 150-450 K/mm3 Low PLT alert 41 LAB L100.2000 6.2-12.0 fl MPV Normal 9.8 LAB L100.3100 MANUAL DIFF CELLS COUNTED Normal 100 LAB L100.3200 47-70 % Low SEGS 40 LAB L100.3300 0-5 % BAND Normal 3 LAB L100.3400 0-1 % META Normal 1 LAB L100.3500 0-0 MYELO High 1 LAB L100.3600 0-0 PROMYELO High 2 LAB L100.3800 19-41 % LYMPH High 42 LAB L100.3900 0-10 % MONOCYTE Normal 9 LAB L100.4000 0-5 % EOS Normal 2 LAB L100.4400 0-5 % NRBC,MANUAL CT Normal 1 LAB L100.5500 ADEQ PLT EST Normal MKD DEC LAB L100.5650 PLT MORPH Normal LARGE LAB L100.7600 HYPOCHROMASIA Normal 2+ LAB L100.2620 2.0-7.7 X10 3/uL Low Absolute Neut 1.7 LAB L100.2720 0.83-4.51 X10 3/ul Absolute Lymph Normal 1.61 LAB L100.9900 PATH REV Normal Reviewed Result Comment: Pancytopenia. Clinical correlation necessary. Jc Snyder M.D. 04/17/18 AMENDED REPORT 04/17/18 0950 PATH REV previously reported as: Iman gunderson Performed By: #### L100.0100 #### [facility] [address] [place], [address] COMPREHENSIVE METABOLIC Collected: 04/16/2018 Status: F Source: [facility] 10:19 AM [facility] [place] TYPE CODE TESTS RESULT OUT OF RANGE REFERENCE UNITS LAB L501.0100 74-106 mg/dL High GLU 113 Result Comment: Fasting Glucose result from 100 to 125 mg/dL suggests IMPAIRED HOMEOSTASIS per A.D.A. criteria. Please note revised GLUCOSE reference range effective 2017. LAB L501.1000 7-18 mg/dL Normal BUN 12 LAB L501.1100 0.55-1.02 mg/dL Normal CREAT,SERUM 0.76 Result Comment: The validity of the calculated GFR AND GFRAA in patients over 70 years has not been determined. Clinical correlation is essential. LAB L501.1110 >60 mL/min Normal EST GFR 82 Result Comment: Non- GFR Calc LAB L501.1115 >60 mL/min Normal EST GFR - AA 100 Result Comment: GFR Calc LAB L501.1300 10-20 RATIO Normal BUN/CRE 15.8 LAB L501.1500 6.4-8.2 g/dL T Normal PROT 7.4 LAB L501.1800 3.2-5.0 g/dL Normal ALB 3.7 LAB L501.1950 2.2-4.2 g/dL Normal GLOB 3.7 LAB L501.2000 0.9-2.4 RATIO Normal A/G 1.0 LAB L501.2200 8.5-10.1 mg/dL CA Normal 8.6 LAB L501.4100 15-37 U/L High AST 42 LAB L501.4305 45-117 U/L High ALK P 154 LAB L501.4405 13-56 U/L High ALT 83 LAB L501.4600 0.20-1.00 mg/dL T Normal BILI 0.30 LAB L501.5300 136-145 mmol/L NA Normal 143 LAB L501.5600 3.5-5.1 mmol/L K Normal 3.9 LAB L501.5900 98-107 mmol/L CL Normal 106 LAB L501.6100 21.0-32.0 mmol/L Normal CO2 30.0 LAB L501.6200 5-15 Normal GAP 7 Performed By: #### L500.4050 #### [facility] [address] [place] [address]. [place], [place], [id number] CANCER ANTIGEN 125 Collected: 04/16/2018 Status: F Source: [place] 10:19 AM [facility] [place] TYPE CODE TESTS RESULT OUT OF RANGE REFERENCE UNITS LAB L3100.5000 0.0-38.1 U/mL High CA125 48.1 2303 Result Comment: Meghna ECLIA methodology Performed at: - [facility] [id number] [place] Carpenter: Carlo Bass PhD, Phone: [phone] Performed By: #### L3100.5000 #### [facility] (refer to report for specific site) refer to report for address and phone number [email or web address] Observed: 04/12/2018 Status: COMPLETED Source: [place] 3:00 PM [facility] REPOSITORY Visit (SP) Office (REY) IVA CUEVA ([id number]) 1955 F Date Time Provider Department 04/12/18 3:00 PM CATIE JO During your visit today, we recorded the following information about you: Temperature Pulse Respiration Blood pressure 97.4 degrees 81/minute 18/minute 154/77 Weight 85.4 kg Catie Jo MD 04/12/2018 4:56 PM Signed DATE OF SERVICE: 04/12/2018 PROBLEM: Iva Sidneyyahaira is here for follow up of ovarian cancer. 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 Avery, and interval debulking surgery for initial resection of ovarian cancer. 3) Received one post operative cycle carbo/Taxol 01/27/13. 4) Was hospitalized on 02/05/13 for small bowel obstruction. It was relieved with medical/conservative management. 5) Carbo with weekly Taxol x 6 cycles, completed 05/27/13 6) CT scan of the abdomen and pelvis was obtained to evaluate increase in CA [address] Gross. The study demonstrated 2 lesions within the liver that were suspicious for metastatic disease. She underwent a CT-guided biopsy. Pathology was consistent with carcinoma from ovarian primary. 7) Gemzar/Carbo/Avastin x8 cycles (04/2015 - 09/2015) 8) Maintenance Avastin 9) Carboplatin/Paclitaxel x6 cycles (06/2016 - 10/2016) 10) Doxil x5 cycles (04/2017 - 09/2017) 11) Topotecan x7 cycles (10/2017 - current). Avastin added with cycle 7 CA 125 (U/mL) - done at [facility] Date Value 01/30/2018 25 08/06/2017 102.9 04/04/2017 12 01/02/2017 6.7 07/26/2016 15.7 01/31/2016 8.2 05/31/2015 76.6 12/2014 11 12/2013 6 10/10/2013 6 05/13/2013 6.1 12/17/2012 36.5 11/26/2012 575 10/25/2012 2342 CTA CHEST: 12/16/2017 IMPRESSION: No demonstrated pulmonary embolism or arterial dissection. CT ABD/PELVIS: 11/06/2017 IMPRESSION: Since prior study, there has been a progression of the nodular densities seen in the left upper quadrant as well as progressive lesions within the anterior abdomen and omentum. Findings suggestive of adenopathy within the hannah hepatis and celiac axis. HEALTH MAINTENANCE: Last mammogram: 08/06/14 - Negative Last colonoscopy: 06/17/2015 - fissures, hemorrhoids ADVANCED CARE PLANNING: Advanced directive: No Living will: No LAST VISIT: 08/15/16 SUBJECTIVE/INTERVAL HISTORY: Feels well overall. Tolerating chemo with topotecan better than most. ECOG 1. No neuropathy now. NO CP/ SOB/ Cough. NO bowel or bladder changes. NO vaginal bleeding. No hematochezia/ melena. OBJECTIVE: VITALS: BP 154/77 Pulse 81 Temp 36.3 ?C (97.4 ?F) Resp 18 Wt 85.4 kg (188 lb 3.2 oz) LMP 12/10/2011 SpO2 100% BMI 32.30 kg/m? GENERAL: Well-appearing WF in NAD. She is alert, oriented, pleasant and cooperative. Tail Ripper for exam: n/a ASSESSMENT: 1. 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 PLAN: CA125 increasing again If rises after this cycle consider CT scans sooner than planned. If progressing, we reviewed options and definitions. We discussed that she is, by definition, penobscot resistant with a 6 month cut-off. However, she had a CR to carboplatin/ Taxol and was right at 6 months for recurrence Given this I would favor another try with carboplatin/ Taxol and consider maintenance therapy with a PARP inhibitor (Olapaprib or Nirapirib), in pts who respond to penobscot-based therapy. We discussed differences in PFS based on gene status, but could benefit even if not HRD positive. Consider repeat CT guided biopsy for tissue confirmation and can send some of the biopsy for [facility] or [facility] testing. Would make sure that testing is done for PDL- 1/ PD-1 so we could consider immunotherapy. Other options would include: a. Pemetrexed b. Oral etoposide c. Oral Cytoxan No current clinical trials open here that she would fit into. During this patient visit I have spent approximately 15 minutes out of 20 in counseling regarding treatment options and medications and coordinating care. Catie Jo MD A letter and a copy of this office note were sent to: Marcy Bruno MD [address] [place] [address] CC: DO Peter Salazar MD (PCP) Referring Provider: CATIE JO [[id number]] Allergies As of Date: 04/12/2018 Noted Allergy Reaction CODEINE 05/03/2007 5 - Intolerance PERCOCET (OXYCODONE-ACETAMINOPHEN)06/29/2015 9 - Itching Seasonal [Other] 06/05/2007 ULTRAM (TRAMADOL HCL) 01/08/2013 9 - Itching VICODIN (HYDROCODONE-ACETAMINOPHE*08/26/2007 9 - Itching Date Reviewed: 04/12/2018 Reviewed by: Saritha Corrales (Icer Machine) MARTELL Del Cid - Fully Assessed Reason for Visit: Established Patient [175] Primary Visit Diagnosis:Cancer of both ovaries (HCC) [C56.1, C56.2] Prescriptions as of 04/12/2018 Sig: VERAPAMIL ER 120 MG 24 HR CAP* Take 1 capsule by mouth daily* TBO-FILGRASTIM 480 MCG/0.8 ML* Inject 480 mcg subcutaneously* ZOLPIDEM 5 MG TABLET Take 1 tablet by mouth at bed* ONDANSETRON HCL 8 MG TABLET Take 1 tablet by mouth every * NABUMETONE 500 MG TABLET Take 2 tablets by mouth twice* LIDOCAINE-PRILOCAINE 2.5 %-2.* Apply 1 application to affect* AMOXICILLIN 500 MG TABLET Take 500 mg by mouth four sharyn* OLANZAPINE 10 MG TABLET Take 1 tablet by mouth daily * Patient taking differently: Take 10 mg by mouth daily at * MELATONIN 10 MG TABLET Take 1 tablet by mouth at bed* CYCLOBENZAPRINE 10 MG TABLET Take 1 tablet by mouth every * PROMETHAZINE 25 MG TABLET Take 1 tablet by mouth every * OMEPRAZOLE 40 MG CAPSULE,BASSEM* Take 1 capsule by mouth once * MAGNESIUM OXIDE 400 MG TABLET Take 400 mg by mouth once nilda* MORPHINE CONCENTRATE 100 MG/5* Take 0.5 mL by mouth every 4 * GABAPENTIN 300 MG CAPSULE Take 3 capsules by mouth thre* Patient taking differently: Take 300 mg by mouth daily at* HYDROCODONE-HOMATROPINE 5 MG-* Take 5 mL by mouth every 4 ho* DEXAMETHASONE 4 MG TABLET Take 1 tablet twice the day p* ONDANSETRON HCL 8 MG TABLET Take 1 tablet by mouth every * FLUTICASONE 50 MCG/ACTUATION * Use 1 Gulliver in each nostril o* ERGOCALCIFEROL (VITAMIN D2) 5* Take 2 capsules a week for 8 * LORATADINE 10 MG TABLET Take 10 mg by mouth once debora* DOCUSATE SODIUM 100 MG CAPSULE Take 100 mg by mouth twice da* POLYETHYLENE GLYCOL 3350 17 G* Take 17 g by mouth once daily. NAPROXEN SODIUM 220 MG TABLET Take 220 mg by mouth as neede* SENOKOT ORAL Take by mouth once daily. MULTIVITAMIN TABLET Take 1 tablet by mouth once d* Problem List As Of Date 04/12/2018 Noted Resolved Calculus of gallbladder with other cholecystiti*INVALID FOR*09/22/2016 DIARRHEA SPECIFIED ORGANISM NEC [A08.8] INVALID FOR*09/22/2016 Sebaceous cyst [L72.3] INVALID FOR*09/22/2016 Carcinomatosis [C80.0] INVALID FOR*01/02/2014 Ovarian cancer (HCC) [C56.9] INVALID FOR*09/22/2016 Vaginal atrophy [N95.2] INVALID FOR*09/22/2016 Climacteric [N95.1] INVALID FOR*09/22/2016 Anorectal pain [K62.89] INVALID FOR*09/22/2016 Hemorrhoid [K64.9] INVALID FOR*09/22/2016 Anal fissure [K60.2] INVALID FOR*09/22/2016 Cancer of both ovaries (HCC) [C56.1, C56.2] INVALID FOR* Other secondary hypertension [I15.8] INVALID FOR* Muscle cramps [R25.2] INVALID FOR* Encounter Status:Closed by CATIE JO MD on 04/12/18 PROGRESS Observed: 04/08/2018 Status: COMPLETED Source: [place] 12:25 AM [facility] REPOSITORY O ID: [id number] Author: Catie Jo Service: (none) Author Type: Physician Type: Progress Notes Filed: 04/12/2018 4:56 PM Note Text: DATE OF SERVICE: 04/12/2018 PROBLEM: Iva Cueva is here for follow up of ovarian cancer. 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 Avery, and interval debulking surgery for initial resection of ovarian cancer. 3) Received one post operative cycle carbo/Taxol 01/27/13. 4) Was hospitalized on 02/05/13 for small bowel obstruction. It was relieved with medical/conservative management. 5) Carbo with weekly Taxol x 6 cycles, completed 05/27/13 6) CT scan of the abdomen and pelvis was obtained to evaluate increase in CA [address] Gross. The study demonstrated 2 lesions within the liver that were suspicious for metastatic disease. She underwent a CT-guided biopsy. Pathology was consistent with carcinoma from ovarian primary. 7) Gemzar/Carbo/Avastin x8 cycles (04/2015 - 09/2015) 8) Maintenance Avastin 9) Carboplatin/Paclitaxel x6 cycles (06/2016 - 10/2016) 10) Doxil x5 cycles (04/2017 - 09/2017) 11) Topotecan x7 cycles (10/2017 - current). Avastin added with cycle 7 CA 125 (U/mL) - done at [facility] Date Value 01/30/2018 25 08/06/2017 102.9 04/04/2017 12 01/02/2017 6.7 07/26/2016 15.7 01/31/2016 8.2 05/31/2015 76.6 12/2014 11 12/2013 6 10/10/2013 6 05/13/2013 6.1 12/17/2012 36.5 11/26/2012 575 10/25/2012 2342 CTA CHEST: 12/16/2017 IMPRESSION: No demonstrated pulmonary embolism or arterial dissection. CT ABD/PELVIS: 11/06/2017 IMPRESSION: Since prior study, there has been a progression of the nodular densities seen in the left upper quadrant as well as progressive lesions within the anterior abdomen and omentum. Findings suggestive of adenopathy within the hannah hepatis and celiac axis. HEALTH MAINTENANCE: Last mammogram: 08/06/14 - Negative Last colonoscopy: 06/17/2015 - fissures, hemorrhoids ADVANCED CARE PLANNING: Advanced directive: No Living will: No LAST VISIT: 08/15/16 SUBJECTIVE/INTERVAL HISTORY: Feels well overall. Tolerating chemo with topotecan better than most. ECOG 1. No neuropathy now. NO CP/ SOB/ Cough. NO bowel or bladder changes. NO vaginal bleeding. No hematochezia/ melena. OBJECTIVE: VITALS: BP 154/77 Pulse 81 Temp 36.3 ?C (97.4 ?F) Resp 18 Wt 85.4 kg (188 lb 3.2 oz) LMP 12/10/2011 SpO2 100% BMI 32.30 kg/m? GENERAL: Well-appearing WF in NAD. She is alert, oriented, pleasant and cooperative. Tail Ripper for exam: n/a ASSESSMENT: 1. 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 PLAN: CA125 increasing again If rises after this cycle consider CT scans sooner than planned. If progressing, we reviewed options and definitions. We discussed that she is, by definition, penobscot resistant with a 6 month cut- off. However, she had a CR to carboplatin/ Taxol and was right at 6 months for recurrence Given this I would favor another try with carboplatin/ Taxol and consider maintenance therapy with a PARP inhibitor (Olapaprib or Nirapirib), in pts who respond to penobscot-based therapy. We discussed differences in PFS based on gene status, but could benefit even if not HRD positive. Consider repeat CT guided biopsy for tissue confirmation and can send some of the biopsy for [employer] or [facility] testing. Would make sure that testing is done for PDL-1/ PD-1 so we could consider immunotherapy. Other options would include: a. Pemetrexed b. Oral etoposide c. Oral Cytoxan No current clinical trials open here that she would fit into. During this patient visit I have spent approximately 15 minutes out of 20 in counseling regarding treatment options and medications and coordinating care. Catie Jo MD A letter and a copy of this office note were sent to: Marcy Bruno MD [address] [place] [address] CC: DO Peter Salazar MD (PCP) CNOVSP Observed: 03/29/2018 Status: COMPLETED Source: [place] 10:40 AM [facility] REPOSITORY Visit (SP) Office (HEMAWS) IVA CUEVA ([id number]) 1955 F Date Time Provider Department 03/29/18 10:40 AM OMAR GROSS During your visit today, we recorded the following information about you: Temperature Pulse Blood pressure Weight 97.5 degrees 85/minute 149/75 85.7 kg Height 1.626 m Omar Gross DO 03/29/2018 12:11 PM Signed Diagnosis: 1) Ovarian cancer. HPI: The patient is a 63 year old female who presented to her PCP prior to a trip to [facility] for vaccinations. She reported that she was having lower pelvic pain and bloating as well as lower leg cramping. She had a BMP done and her LFTs were elevated so her PCP ordered an ultrasound of the liver. The ultrasound showed some mild ascites and a right lower quadrant mass. She had a CT scan of the chest/abdomen/pelvis which showed multiple pelvic masses and enlarged lymph nodes. A pelvic ultrasound was also done. Her CA125 was elevated at 2342 U/mL (CEA was WNL). She had a colonoscopy on 10/28/2012 which showed some microscopic colitis and hemorrhoids but was otherwise negative. Random biopsies were obtained and the pathology demonstrated a non- small cell carcinoma. Immunostains were positive for CK 7, CK 8, estrogen receptors. Specimen was negative for CK 20. PRIOR TREATMENT: 1) Carboplatin/paclitaxel x3 cycles. 2) 01/09/2013 - Exploratory laparotomy, total abdominal hysterectomy, bilateral salpingo- oophorectomy, omentectomy, pelvic peritoneal stripping, excision of peritoneal nodules, left pelvic lymph node biopsy, argon beam ablation of peritoneal implants with Dr. Avery, and interval debulking surgery for initial resection of ovarian cancer. 3) Received one post operative cycle carbo/Taxol 01/27/13. 4) Was hospitalized on 02/05/13 for small bowel obstruction. It was relieved with medical/conservative management. 5) Carbo with weekly Taxol x 6 cycles, completed 05/27/13. 6) [place]/carbo/cassandra x cycles for biopsy proven metastatic disease (intrahepatic metastases--Had been asymptomatic, but was noted to have an increase in CA-125. CT scan of the abdomen and pelvis was obtained to further evaluate. The study demonstrated 2 lesions within the liver that were suspicious for metastatic disease. She underwent a CT-guided biopsy. 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 7) Bevacizumab. 8) Carbo/Taxol x6 cycles completed 11/09/2016. 9) Doxil. PD following 5 cycles. Current therapy: 1) Topotecan. Presents for ongoing oncologic management. Evaluation for cycle #7. Interim history: She's been feeling well this last week. She hasn't been significantly fatigued or short of breath. However her only complaint is that she is having worsening muscle cramps. Previous to her diagnosis of ovarian cancer she had occasional nocturnal cramps of the legs but these have become a lot more pronounced than last couple months didn't seem to be getting worse. Typically if she has a day where she is active and on her feet quite a bit then that night when she sleeping she wakes up with bed charley horses and cramps in the hands and ankles. She's tried a number of remedies for this including hydrating well and magnesium supplement. Otherwise she hasn't had any abdominal pain or bloating. No episodes of jaundice. No nausea or vomiting. Appetite is been doing well. Medications and allergies as below personally reviewed by me today. Any changes documented in appropriate section. ROS: Constitutional: Denies episodes night sweats. Neuro: Denies KLEIN, vertigo, dizziness and imbalance. HEENT: No recent change in voice, vision or hearing. Resp: Denies wheeze and hemoptysis. CVS: No exertional chest pain/pressure or tightness. No PND or orthopnea. No lower extremity swelling or edema. GI: Denies dysgeusia. Denies symptoms of stomatitis. Denies dysphagia and odynophagia. : Denies dysuria or gross hematuria. Endo: Denies hot flashes. Denies polyuria and polydipsia. Denies heat and cold intolerance. Musculoskeletal: Stable symptoms of left-sided sciatica with pain down lateral aspect of thigh. Derm: Denies rash. Denies diffuse pruritis. Heme: See above. Psych: Normal mood. PHYSICAL EXAM: Vitals: Blood pressure 149/75, pulse 85, temperature 36.4 ?C (97.5 ?F), temperature source Oral, weight 85.7 kg (189 lb), last menstrual period 12/10/2011. Well-appearing and in no acute distress. EYES: Sclerae are anicteric bilaterally. NECK: Supple. LYMPHATIC: There is no palpable cervical, supraclavicular adenopathy. RESPIRATORY: Inspiratory breath sounds are of normal intensity in all rodriguez. No rales, wheezes or rhonchi. CARDIOVASCULAR: Rhythm is regular. Normal intensity S1/S2. There is no gallop or murmur. ABDOMEN: The abdomen is nondistended. There is no organomegaly. No tenderness. No fluid wave. Extremities: Free of edema. SKIN: No jaundice or rash. No petechiae. NEUROLOGIC: rand maker II-XII are grossly intact. No focal motor weakness. ASSESSMENT/PLAN: (C56.1, C56.2) Cancer of both ovaries (HCC) (primary encounter diagnosis) (C78.7) Liver metastases (HCC) KPS is 90%. Biopsy-proven recurrence. Bill Moore[place] refractory. -She is tolerating topotecan well thus far. -CA125 up from last check. -Symptomatic anemia requiring transfusion. -Somatic BRCA mutation analysis negative--see scanned [facility] report 01/15/2018. -Discussed adding Avastin. She agrees. Plan: -Cycle #7 topotecan on Sunday 03/04. -Add Avastin 15 mg/kg every 3 weeks. -Neupogen to 7 days post cycle. -Next cycle on 3 week schedule. -CT C/A/P pending CA125 trend. -Continue olanzapine. (I15.8) Other secondary hypertension Assessment: -HTN from previous bevacizumab. -Responded well to lisinopril, but had cough. -SBP still high on Norvasc. Plan: -Change to verapamil. (R25.2) Muscle cramps Assessment: -Previous assessment of magnesium and phosphorus were normal. -May be exacerbated cramping secondary to anemia. Plan: -Trial of verapamil at bedtime. Omar Gross DO Referring Provider: OMAR GROSS [[id number]] Allergies As of Date: 03/29/2018 Noted Allergy Reaction CODEINE 05/03/2007 5 - Intolerance PERCOCET (OXYCODONE-ACETAMINOPHEN)06/29/2015 9 - Itching Seasonal [Other] 06/05/2007 ULTRAM (TRAMADOL HCL) 01/08/2013 9 - Itching VICODIN (HYDROCODONE-ACETAMINOPHE*08/26/2007 9 - Itching Date Reviewed: 03/29/2018 Reviewed by: Kary Napoles - Fully Assessed Reason for Visit: Established Patient [175] Primary Visit Diagnosis:Cancer of both ovaries (HCC) [C56.1, C56.2] Other Visit Diagnoses:Other secondary hypertension [I15.8] Muscle cramps [R25.2] Liver metastases (HCC) [C78.7] Order(s):verapamil ER (VERELAN) 120 mg 24 hr capsuleTake 1 capsule by mouth daily at bedtime.Disp: 30 capsuleRfl: 5 Follow-up and Disposition History Recorded Prescriptions as of 03/29/2018 Sig: TBO-FILGRASTIM 480 MCG/0.8 ML* Inject 480 mcg subcutaneously* ZOLPIDEM 5 MG TABLET Take 1 tablet by mouth at bed* ONDANSETRON HCL 8 MG TABLET Take 1 tablet by mouth every * NABUMETONE 500 MG TABLET Take 2 tablets by mouth twice* LIDOCAINE-PRILOCAINE 2.5 %-2.* Apply 1 application to affect* OLANZAPINE 10 MG TABLET Take 1 tablet by mouth daily * Patient taking differently: Take 10 mg by mouth daily at * MELATONIN 10 MG TABLET Take 1 tablet by mouth at bed* CYCLOBENZAPRINE 10 MG TABLET Take 1 tablet by mouth every * PROMETHAZINE 25 MG TABLET Take 1 tablet by mouth every * OMEPRAZOLE 40 MG CAPSULE,BASSEM* Take 1 capsule by mouth once * MORPHINE CONCENTRATE 100 MG/5* Take 0.5 mL by mouth every 4 * GABAPENTIN 300 MG CAPSULE Take 3 capsules by mouth thre* Patient taking differently: Take 300 mg by mouth daily at* LORATADINE 10 MG TABLET Take 10 mg by mouth once debora* DOCUSATE SODIUM 100 MG CAPSULE Take 100 mg by mouth twice da* POLYETHYLENE GLYCOL 3350 17 G* Take 17 g by mouth once daily. NAPROXEN SODIUM 220 MG TABLET Take 220 mg by mouth as neede* SENOKOT ORAL Take by mouth once daily. VERAPAMIL ER 120 MG 24 HR CAP* Take 1 capsule by mouth daily* AMOXICILLIN 500 MG TABLET Take 500 mg by mouth four sharyn* MAGNESIUM OXIDE 400 MG TABLET Take 400 mg by mouth once nilda* HYDROCODONE-HOMATROPINE 5 MG-* Take 5 mL by mouth every 4 ho* DEXAMETHASONE 4 MG TABLET Take 1 tablet twice the day p* ONDANSETRON HCL 8 MG TABLET Take 1 tablet by mouth every * FLUTICASONE 50 MCG/ACTUATION * Use 1 [place]ull[place] in each nostril o* ERGOCALCIFEROL (VITAMIN D2) 5* Take 2 capsules a week for 8 * MULTIVITAMIN TABLET Take 1 tablet by mouth once d* Medication notes this encounter GABAPENTIN 300 MG CAPSULE >> Kary Napoles MA 03/29/2018 10:51 AM >> KARY NAPOLES MA SunMar 29, 2018 10:51 AM Taking one capsule at bedtime. Problem List As Of Date 03/29/2018 Noted Resolved Calculus of gallbladder with other cholecystiti*INVALID FOR*09/22/2016 DIARRHEA SPECIFIED ORGANISM NEC [A08.8] INVALID FOR*09/22/2016 Sebaceous cyst [L72.3] INVALID FOR*09/22/2016 Carcinomatosis [C80.0] INVALID FOR*01/02/2014 Ovarian cancer (HCC) [C56.9] INVALID FOR*09/22/2016 Vaginal atrophy [N95.2] INVALID FOR*09/22/2016 Climacteric [N95.1] INVALID FOR*09/22/2016 Anorectal pain [K62.89] INVALID FOR*09/22/2016 Hemorrhoid [K64.9] INVALID FOR*09/22/2016 Anal fissure [K60.2] INVALID FOR*09/22/2016 Cancer of both ovaries (HCC) [C56.1, C56.2] INVALID FOR* Other secondary hypertension [I15.8] INVALID FOR* Muscle cramps [R25.2] INVALID FOR* Encounter Status:Closed by OMAR GROSS DO on 03/29/18 PROGRESS Observed: 03/29/2018 Status: COMPLETED Source: [place] 9:00 AM [facility] REPOSITORY O ID: [id number] Author: Omar Gross Service: (none) Author Type: Physician Type: Progress Notes Filed: 03/29/2018 12:11 PM Note Text: Diagnosis: 1) Ovarian cancer. HPI: The patient is a 63 year old female who presented to her PCP prior to a trip to [facility] for vaccinations. She reported that she was having lower pelvic pain and bloating as well as lower leg cramping. She had a BMP done and her LFTs were elevated so her PCP ordered an ultrasound of the liver. The ultrasound showed some mild ascites and a right lower quadrant mass. She had a CT scan of the chest/abdomen/pelvis which showed multiple pelvic masses and enlarged lymph nodes. A pelvic ultrasound was also done. Her CA125 was elevated at 2342 U/mL (CEA was WNL). She had a colonoscopy on 10/28/2012 which showed some microscopic colitis and hemorrhoids but was otherwise negative. Random biopsies were obtained and the pathology demonstrated a non-small cell carcinoma. Immunostains were positive for CK 7, CK 8, estrogen receptors. Specimen was negative for CK 20. PRIOR TREATMENT: 1) Carboplatin/paclitaxel x3 cycles. 2) 01/09/2013 - Exploratory laparotomy, total abdominal hysterectomy, bilateral salpingo- oophorectomy, omentectomy, pelvic peritoneal stripping, excision of peritoneal nodules, left pelvic lymph node biopsy, argon beam ablation of peritoneal implants with Dr. Aevry, and interval debulking surgery for initial resection of ovarian cancer. 3) Received one post operative cycle carbo/Taxol 01/27/13. 4) Was hospitalized on 02/05/13 for small bowel obstruction. It was relieved with medical/conservative management. 5) Carbo with weekly Taxol x 6 cycles, completed 05/27/13. 6) [place]/carbo/cassandra x cycles for biopsy proven metastatic disease (intrahepatic metastases--Had been asymptomatic, but was noted to have an increase in CA-125. CT scan of the abdomen and pelvis was obtained to further evaluate. The study demonstrated 2 lesions within the liver that were suspicious for metastatic disease. She underwent a CT- guided biopsy. 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 7) Bevacizumab. 8) Carbo/Taxol x6 cycles completed 11/09/2016. 9) Doxil. PD following 5 cycles. Current therapy: 1) Topotecan. Presents for ongoing oncologic management. Evaluation for cycle #7. Interim history: She's been feeling well this last week. She hasn't been significantly fatigued or short of breath. However her only complaint is that she is having worsening muscle cramps. Previous to her diagnosis of ovarian cancer she had occasional nocturnal cramps of the legs but these have become a lot more pronounced than last couple months didn't seem to be getting worse. Typically if she has a day where she is active and on her feet quite a bit then that night when she sleeping she wakes up with bed charley horses and cramps in the hands and ankles. She's tried a number of remedies for this including hydrating well and magnesium supplement. Otherwise she hasn't had any abdominal pain or bloating. No episodes of jaundice. No nausea or vomiting. Appetite is been doing well. Medications and allergies as below personally reviewed by me today. Any changes documented in appropriate section. ROS: Constitutional: Denies episodes night sweats. Neuro: Denies KLEIN, vertigo, dizziness and imbalance. HEENT: No recent change in voice, vision or hearing. Resp: Denies wheeze and hemoptysis. CVS: No exertional chest pain/pressure or tightness. No PND or orthopnea. No lower extremity swelling or edema. GI: Denies dysgeusia. Denies symptoms of stomatitis. Denies dysphagia and odynophagia. : Denies dysuria or gross hematuria. Endo: Denies hot flashes. Denies polyuria and polydipsia. Denies heat and cold intolerance. Musculoskeletal: Stable symptoms of left-sided sciatica with pain down lateral aspect of thigh. Derm: Denies rash. Denies diffuse pruritis. Heme: See above. Psych: Normal mood. PHYSICAL EXAM: Vitals: Blood pressure 149/75, pulse 85, temperature 36.4 ?C (97.5 ?F), temperature source Oral, weight 85.7 kg (189 lb), last menstrual period 12/10/2011. Well-appearing and in no acute distress. EYES: Sclerae are anicteric bilaterally. NECK: Supple. LYMPHATIC: There is no palpable cervical, supraclavicular adenopathy. RESPIRATORY: Inspiratory breath sounds are of normal intensity in all rodriguez. No rales, wheezes or rhonchi. CARDIOVASCULAR: Rhythm is regular. Normal intensity S1/S2. There is no gallop or murmur. ABDOMEN: The abdomen is nondistended. There is no organomegaly. No tenderness. No fluid wave. Extremities: Free of edema. SKIN: No jaundice or rash. No petechiae. NEUROLOGIC: rand maker II-XII are grossly intact. No focal motor weakness. ASSESSMENT/PLAN: (C56.1, C56.2) Cancer of both ovaries (HCC) (primary encounter diagnosis) (C78.7) Liver metastases (HCC) KPS is 90%. Biopsy-proven recurrence. Bill Moore'[place] refractory. -She is tolerating topotecan well thus far. -CA125 up from last check. -Symptomatic anemia requiring transfusion. -Somatic BRCA mutation analysis negative--see scanned [facility] report 01/15/2018. -Discussed adding Avastin. She agrees. Plan: -Cycle #7 topotecan on Sunday 03/04. -Add Avastin 15 mg/kg every 3 weeks. -Neupogen to 7 days post cycle. -Next cycle on 3 week schedule. -CT C/A/P pending CA125 trend. -Continue olanzapine. (I15.8) Other secondary hypertension Assessment: -HTN from previous bevacizumab. -Responded well to lisinopril, but had cough. -SBP still high on Norvasc. Plan: -Change to verapamil. (R25.2) Muscle cramps Assessment: -Previous assessment of magnesium and phosphorus were normal. -May be exacerbated cramping secondary to anemia. Plan: -Trial of verapamil at bedtime. Omar Gross, CBC W/DIFF, AUTOMATED Collected: 03/27/2018 Status: F Source: [place] 1:35 PM [facility] [place] CODE TESTS RESULT OUT OF RANGE REFERENCE UNITS LAB L100.1000 4.4-11.0 K/mm3 Normal WBC 5.9 LAB L100.1200 4.2-5.4 M/mm3 Low RBC 3.13 LAB L100.1300 12.0-15.0 g/dl Low HGB 9.9 LAB L100.1400 37-47 % Low HCT 30.2 LAB L100.1500 81-99 fL Normal MCV 96.5 LAB L100.1600 27.0-32.0 pg Normal MCH 31.6 LAB L100.1700 32-36 g/gl Normal MCHC 32.8 LAB L100.1810 11.6-14.6 % High RDW CV 17.2 LAB L100.1820 35.1-43.9 fl High RDW SD 59.9 LAB L100.1900 150-450 K/mm3 High PLT 636 LAB L100.2000 6.2-12.0 fl Normal MPV 9.2 LAB L100.2100 47-70 % Normal NEUT% 64.1 LAB L100.2200 19-41 % Normal LY% 25.6 LAB L100.2300 0-10 % Normal MONO% 8.0 LAB L100.2400 0-5 % Normal EO% 1.7 LAB L100.2500 0-1 % Normal BASO% 0.3 LAB L100.2550 0.0-0.9 % Normal IM GRAN % 0.300 Result Comment: IG% - Immature Granulocytes (promyelocytes, myelocytes and metamyelocytes) > 1% indicates that a LEFT SHIFT is Present. LAB L100.2620 2.0-7.7 X10 3/uL Normal Absolute Neut 3.8 LAB L100.2720 0.83-4.51 X10 3/ul Normal Absolute Lymph 1.50 Performed By: #### L100.0100 #### [facility] [address] [place], [place], [address] COMPREHENSIVE METABOLIC Collected: 03/27/2018 Status: F Source: [facility] 1:35 PM [facility] [place] TYPE CODE TESTS RESULT OUT OF RANGE REFERENCE UNITS LAB L501.0100 74-106 mg/dL Normal GLU 105 Result Comment: Fasting Glucose result from 100 to 125 mg/dL suggests IMPAIRED HOMEOSTASIS per A.D.A. criteria. Please note revised GLUCOSE reference range effective 2017. LAB L501.1000 7-18 mg/dL Normal BUN 13 LAB L501.1100 0.55-1.02 mg/dL Normal CREAT,SERUM 0.86 Result Comment: The validity of the calculated GFR AND GFRAA in patients over 70 years has not been determined. Clinical correlation is essential. LAB L501.1110 >60 mL/min Normal EST GFR 71 Result Comment: Non- GFR Calc LAB L501.1115 >60 mL/min Normal EST GFR - AA 86 Result Comment: GFR Calc LAB L501.1300 10-20 RATIO Normal BUN/CRE 15.0 LAB L501.1500 6.4-8.2 g/dL T Normal PROT 7.9 LAB L501.1800 3.2-5.0 g/dL Normal ALB 3.8 LAB L501.1950 2.2-4.2 g/dL Normal GLOB 4.1 LAB L501.2000 0.9-2.4 RATIO Normal A/G 0.9 LAB L501.2200 8.5-10.1 mg/dL CA Normal 8.9 LAB L501.4100 15-37 U/L Normal AST 29 LAB L501.4305 45-117 U/L Normal ALK P 113 LAB L501.4405 13-56 U/L Normal ALT 44 LAB L501.4600 0.20-1.00 mg/dL T Normal BILI 0.30 LAB L501.5300 136-145 mmol/L NA Normal 143 LAB L501.5600 3.5-5.1 mmol/L K Normal 4.1 LAB L501.5900 98-107 mmol/L CL Normal 107 LAB L501.6100 21.0-32.0 mmol/L Normal CO2 26.0 LAB L501.6200 5-15 Normal GAP 10 Performed By: #### L500.4050 #### [facility] [address] [place], [address] CANCER ANTIGEN 125 Collected: 03/27/2018 Status: F Source: [place] 1:35 PM [facility] [place] TYPE CODE TESTS RESULT OUT OF RANGE REFERENCE UNITS LAB L3100.5000 0.0-38.1 U/mL High CA125 49.6 2303 Result Comment: Meghna ECLIA methodology Performed at: - [facility] [address] [id number] [place] Carpenter: Carlo Bass PhD, Phone: [phone] Performed By: #### L3100.5000 #### [facility] (refer to report for specific site) refer to report for address and phone number CBC-COMPLETE BLOOD CNT Collected: 03/04/2018 Status: F Source: [place] NO DIFF 1:45 PM [facility] [place] TYPE CODE TESTS RESULT OUT OF RANGE REFERENCE UNITS LAB L100.1000 4.4-11.0 K/mm3 Normal WBC 6.1 LAB L100.1200 4.2-5.4 M/mm3 Low RBC 3.28 LAB L100.1300 12.0-15.0 g/dl Low HGB 10.7 LAB L100.1400 37-47 % Low HCT 32.2 LAB L100.1500 81-99 fL Normal MCV 98.2 LAB L100.1600 27.0-32.0 pg High MCH 32.6 LAB L100.1700 32-36 g/gl Normal MCHC 33.2 LAB L100.1810 11.6-14.6 % High RDW CV 17.0 LAB L100.1820 35.1-43.9 fl High RDW SD 59.0 LAB L100.1900 150-450 K/mm3 High PLT 511 LAB L100.2000 6.2-12.0 fl Normal MPV 8.9 Performed By: #### L100.0500 #### [facility] [address] [place], [address] PROGRESS Observed: 02/27/2018 Status: COMPLETED Source: [place] 11:33 AM [facility] REPOSIT[facility] HNO ID: [id number] Author: Omar Gross Service: (none) Author Type: Physician Type: Progress Notes Filed: 02/27/2018 12:24 PM Note Text: Diagnosis: 1) Ovarian cancer. HPI: The patient is a 63 year old female who presented to her PCP prior to a trip to [facility] for vaccinations. She reported that she was having lower pelvic pain and bloating as well as lower leg cramping. She had a BMP done and her LFTs were elevated so her PCP ordered an ultrasound of the liver. The ultrasound showed some mild ascites and a right lower quadrant mass. She had a CT scan of the chest/abdomen/pelvis which showed multiple pelvic masses and enlarged lymph nodes. A pelvic ultrasound was also done. Her CA125 was elevated at 2342 U/mL (CEA was WNL). She had a colonoscopy on 10/28/2012 which showed some microscopic colitis and hemorrhoids but was otherwise negative. Random biopsies were obtained and the pathology demonstrated a non-small cell carcinoma. Immunostains were positive for CK 7, CK 8, estrogen receptors. Specimen was negative for CK 20. PRIOR TREATMENT: 1) Carboplatin/paclitaxel x3 cycles. 2) 01/09/2013 - Exploratory laparotomy, total abdominal hysterectomy, bilateral salpingo- oophorectomy, omentectomy, pelvic peritoneal stripping, excision of peritoneal nodules, left pelvic lymph node biopsy, argon beam ablation of peritoneal implants with Dr. Avery, and interval debulking surgery for initial resection of ovarian cancer. 3) Received one post operative cycle carbo/Taxol 01/27/13. 4) Was hospitalized on 02/05/13 for small bowel obstruction. It was relieved with medical/conservative management. 5) Carbo with weekly Taxol x 6 cycles, completed 05/27/13. 6) [place]/carbo/cassandra x cycles for biopsy proven metastatic disease (intrahepatic metastases--Had been asymptomatic, but was noted to have an increase in CA-125. CT scan of the abdomen and pelvis was obtained to further evaluate. The study demonstrated 2 lesions within the liver that were suspicious for metastatic disease. She underwent a CT- guided biopsy. 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 7) Bevacizumab. 8) Carbo/Taxol x6 cycles completed 11/09/2016. 9) Doxil. PD following 5 cycles. Current therapy: 1) Topotecan. Presents for ongoing oncologic management. Evaluation for cycle #6. Interim history: No complaints today. She required another 2 unit red blood cell transfusion following the fifth cycle of treatment. This made her feel a lot better and she spent a week in [place] and felt good well she was there. She's had no episodes of fever or shaking chills. No abdominal pain, bloating or distention. No episodes of jaundice. She does get fatigued in washed out following a cycle of treatment but recovers I about the third week. She wanted to discuss today possibly taking a break from therapy or prolonging the time between cycles. She's been on lisinopril for hypertension. She's noticed a more persistent more frequent dry cough. Medications and allergies as below personally reviewed by me today. Any changes documented in appropriate section. ROS: Constitutional: Denies episodes night sweats. Neuro: Denies KLEIN, vertigo, dizziness and imbalance. HEENT: No recent change in voice, vision or hearing. Resp: Denies wheeze and hemoptysis. CVS: No exertional chest pain/pressure or tightness. No PND or orthopnea. No lower extremity swelling or edema. GI: Denies dysgeusia. Denies symptoms of stomatitis. Denies dysphagia and odynophagia. : Denies dysuria or gross hematuria. Endo: Denies hot flashes. Denies polyuria and polydipsia. Denies heat and cold intolerance. Musculoskeletal: Stable symptoms of left-sided sciatica with pain down lateral aspect of thigh. Derm: Denies rash. Denies diffuse pruritis. Heme: See above. Psych: Normal mood. PHYSICAL EXAM: Vitals: Blood pressure 127/70, pulse 89, temperature 36.7 ?C (98 ?F), weight 88.5 kg (195 lb), last menstrual period 12/10/2011. Well-appearing and in no acute distress. EYES: Sclerae are anicteric bilaterally. NECK: Supple. LYMPHATIC: There is no palpable cervical, supraclavicular or axillary adenopathy. RESPIRATORY: Inspiratory breath sounds are of normal intensity in all rodriguez. No rales, wheezes or rhonchi. CARDIOVASCULAR: Rhythm is regular. Normal intensity S1/S2. There is no gallop or murmur. ABDOMEN: The abdomen is nondistended. There is no organomegaly. No tenderness. No fluid wave. Extremities: Free of edema. SKIN: No jaundice or rash. No petechiae. NEUROLOGIC: rand maker II-XII are grossly intact. No focal motor weakness. ASSESSMENT/PLAN: 1) Ovarian cancer. KPS is 90%. Biopsy-proven recurrence. Bill Moore[place] refractory. -She is tolerating topotecan well thus far. -CA125 trending down. -Symptomatic anemia requiring transfusion. -Somatic BRCA mutation analysis negative. Plan: -Cycle #6 topotecan on Sunday 03/04. -Decrease Neupogen to 7 days post cycle. -Cycles of the stretched out to an every 28 day cycle. Next cycle 04/01. -CT C/A/P pending CA125 trend. -Continue olanzapine. -Stop lisinopril and start Norvasc 5 mg daily. Continue to monitor blood pressure. Omar Gross DO CNOVSP Observed: 02/27/2018 Status: COMPLETED Source: [place] 11:30 AM [facility] REPOSITORY Visit (SP) Office (PRISCILLA) IVA CUEVA ([id number]) 1955 F Date Time Provider Department 02/27/18 11:30 AM OMAR GROSS During your visit today, we recorded the following information about you: Temperature Pulse Blood pressure Weight 98 degrees 89/minute 127/70 88.5 kg Omar Gross DO 02/27/2018 12:24 PM Signed Diagnosis: 1) Ovarian cancer. HPI: The patient is a 63 year old female who presented to her PCP prior to a trip to [facility] for vaccinations. She reported that she was having lower pelvic pain and bloating as well as lower leg cramping. She had a BMP done and her LFTs were elevated so her PCP ordered an ultrasound of the liver. The ultrasound showed some mild ascites and a right lower quadrant mass. She had a CT scan of the chest/abdomen/pelvis which showed multiple pelvic masses and enlarged lymph nodes. A pelvic ultrasound was also done. Her CA125 was elevated at 2342 U/mL (CEA was WNL). She had a colonoscopy on 10/28/2012 which showed some microscopic colitis and hemorrhoids but was otherwise negative. Random biopsies were obtained and the pathology demonstrated a non- small cell carcinoma. Immunostains were positive for CK 7, CK 8, estrogen receptors. Specimen was negative for CK 20. PRIOR TREATMENT: 1) Carboplatin/paclitaxel x3 cycles. 2) 01/09/2013 - Exploratory laparotomy, total abdominal hysterectomy, bilateral salpingo- oophorectomy, omentectomy, pelvic peritoneal stripping, excision of peritoneal nodules, left pelvic lymph node biopsy, argon beam ablation of peritoneal implants with Dr. Avery, and interval debulking surgery for initial resection of ovarian cancer. 3) Received one post operative cycle carbo/Taxol 01/27/13. 4) Was hospitalized on 02/05/13 for small bowel obstruction. It was relieved with medical/conservative management. 5) Carbo with weekly Taxol x 6 cycles, completed 05/27/13. 6) [place]/carbo/cassandra x cycles for biopsy proven metastatic disease (intrahepatic metastases--Had been asymptomatic, but was noted to have an increase in CA-125. CT scan of the abdomen and pelvis was obtained to further evaluate. The study demonstrated 2 lesions within the liver that were suspicious for metastatic disease. She underwent a CT-guided biopsy. 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 7) Bevacizumab. 8) Carbo/Taxol x6 cycles completed 11/09/2016. 9) Doxil. PD following 5 cycles. Current therapy: 1) Topotecan. Presents for ongoing oncologic management. Evaluation for cycle #6. Interim history: No complaints today. She required another 2 unit red blood cell transfusion following the fifth cycle of treatment. This made her feel a lot better and she spent a week in [place] and felt good well she was there. She's had no episodes of fever or shaking chills. No abdominal pain, bloating or distention. No episodes of jaundice. She does get fatigued in washed out following a cycle of treatment but recovers I about the third week. She wanted to discuss today possibly taking a break from therapy or prolonging the time between cycles. She's been on lisinopril for hypertension. She's noticed a more persistent more frequent dry cough. Medications and allergies as below personally reviewed by me today. Any changes documented in appropriate section. ROS: Constitutional: Denies episodes night sweats. Neuro: Denies KLEIN, vertigo, dizziness and imbalance. HEENT: No recent change in voice, vision or hearing. Resp: Denies wheeze and hemoptysis. CVS: No exertional chest pain/pressure or tightness. No PND or orthopnea. No lower extremity swelling or edema. GI: Denies dysgeusia. Denies symptoms of stomatitis. Denies dysphagia and odynophagia. : Denies dysuria or gross hematuria. Endo: Denies hot flashes. Denies polyuria and polydipsia. Denies heat and cold intolerance. Musculoskeletal: Stable symptoms of left-sided sciatica with pain down lateral aspect of thigh. Derm: Denies rash. Denies diffuse pruritis. Heme: See above. Psych: Normal mood. PHYSICAL EXAM: Vitals: Blood pressure 127/70, pulse 89, temperature 36.7 ?C (98 ?F), weight 88.5 kg (195 lb), last menstrual period 12/10/2011. Well-appearing and in no acute distress. EYES: Sclerae are anicteric bilaterally. NECK: Supple. LYMPHATIC: There is no palpable cervical, supraclavicular or axillary adenopathy. RESPIRATORY: Inspiratory breath sounds are of normal intensity in all rodriguez. No rales, wheezes or rhonchi. CARDIOVASCULAR: Rhythm is regular. Normal intensity S1/S2. There is no gallop or murmur. ABDOMEN: The abdomen is nondistended. There is no organomegaly. No tenderness. No fluid wave. Extremities: Free of edema. SKIN: No jaundice or rash. No petechiae. NEUROLOGIC: rand maker II-XII are grossly intact. No focal motor weakness. ASSESSMENT/PLAN: 1) Ovarian cancer. KPS is 90%. Biopsy-proven recurrence. Bill Moore'[place] refractory. -She is tolerating topotecan well thus far. -CA125 trending down. -Symptomatic anemia requiring transfusion. -Somatic BRCA mutation analysis negative. Plan: -Cycle #6 topotecan on Sunday 03/04. -Decrease Neupogen to 7 days post cycle. -Cycles of the stretched out to an every 28 day cycle. Next cycle 04/01. -CT C/A/P pending CA125 trend. -Continue olanzapine. -Stop lisinopril and start Norvasc 5 mg daily. Continue to monitor blood pressure. DO Ania Dominguez LPN, MARTELL 02/27/2018 12:01 PM Signed Est pt. Discuss recent labs, tx tomorrow Ania Reed LPN Referring Provider: OMAR GROSS [[id number]] Allergies As of Date: 02/27/2018 Noted Allergy Reaction CODEINE 05/03/2007 5 - Intolerance PERCOCET (OXYCODONE-ACETAMINOPHEN)06/29/2015 9 - Itching Seasonal [Other] 06/05/2007 ULTRAM (TRAMADOL HCL) 01/08/2013 9 - Itching VICODIN (HYDROCODONE-ACETAMINOPHE*08/26/2007 9 - Itching Date Reviewed: 02/27/2018 Reviewed by: Ania Vasquez (Martell) MARTELL Reed - Fully Assessed Reason for Visit: Established Patient [[id number]] Primary Visit Diagnosis:Cancer of both ovaries (HCC) [C56.1, C56.2] Other Visit Diagnoses:Ovarian cancer, unspecified laterality (HCC) [C56.9] Carcinomatosis (HCC) [C80.0] Order(s):amLODIPine (NORVASC) 5 mg tabletTake 1 tablet by mouth once daily.Disp: 30 tabletRfl: 5 tbo-filgrastim (GRANIX) 480 mcg/0.8 mL syrgInject 480 mcg subcutaneously once daily for 7 days.Disp: 7 SyringeRfl: 5 Follow-up and Disposition History Recorded Prescriptions as of 02/27/2018 Sig: TBO-FILGRASTIM 480 MCG/0.8 ML* Inject 480 mcg subcutaneously* ONDANSETRON HCL 8 MG TABLET Take 1 tablet by mouth every * NABUMETONE 500 MG TABLET Take 2 tablets by mouth twice* LIDOCAINE-PRILOCAINE 2.5 %-2.* Apply 1 application to affect* AMOXICILLIN 500 MG TABLET Take 500 mg by mouth four sharyn* OLANZAPINE 10 MG TABLET Take 1 tablet by mouth daily * Patient taking differently: Take 10 mg by mouth daily at * MELATONIN 10 MG TABLET Take 1 tablet by mouth at bed* CYCLOBENZAPRINE 10 MG TABLET Take 1 tablet by mouth every * PROMETHAZINE 25 MG TABLET Take 1 tablet by mouth every * X ZOLPIDEM 5 MG TABLET Take 1 tablet by mouth at bed* OMEPRAZOLE 40 MG CAPSULE,BASSEM* Take 1 capsule by mouth once * MORPHINE CONCENTRATE 100 MG/5* Take 0.5 mL by mouth every 4 * GABAPENTIN 300 MG CAPSULE Take 3 capsules by mouth thre* Patient taking differently: Take 300 mg by mouth daily at* LORATADINE 10 MG TABLET Take 10 mg by mouth once debora* DOCUSATE SODIUM 100 MG CAPSULE Take 100 mg by mouth twice da* NAPROXEN SODIUM 220 MG TABLET Take 220 mg by mouth as neede* SENOKOT ORAL Take by mouth once daily. AMLODIPINE 5 MG TABLET Take 1 tablet by mouth once d* MAGNESIUM OXIDE 400 MG TABLET Take 400 mg by mouth once nilda* HYDROCODONE-HOMATROPINE 5 MG-* Take 5 mL by mouth every 4 ho* DEXAMETHASONE 4 MG TABLET Take 1 tablet twice the day p* ONDANSETRON HCL 8 MG TABLET Take 1 tablet by mouth every * FLUTICASONE 50 MCG/ACTUATION * Use 1 [place] in each nostril o* ERGOCALCIFEROL (VITAMIN D2) 5* Take 2 capsules a week for 8 * POLYETHYLENE GLYCOL 3350 17 G* Take 17 g by mouth once daily. MULTIVITAMIN TABLET Take 1 tablet by mouth once d* Problem List As Of Date 02/27/2018 Noted Resolved Calculus of gallbladder with other cholecystiti*INVALID FOR*09/22/2016 DIARRHEA SPECIFIED ORGANISM NEC [A08.8] INVALID FOR*09/22/2016 Sebaceous cyst [L72.3] INVALID FOR*09/22/2016 Carcinomatosis [C80.0] INVALID FOR*01/02/2014 Ovarian cancer (HCC) [C56.9] INVALID FOR*09/22/2016 Vaginal atrophy [N95.2] INVALID FOR*09/22/2016 Climacteric [N95.1] INVALID FOR*09/22/2016 Anorectal pain [K62.89] INVALID FOR*09/22/2016 Hemorrhoid [K64.9] INVALID FOR*09/22/2016 Anal fissure [K60.2] INVALID FOR*09/22/2016 Cancer of both ovaries (HCC) [C56.1, C56.2] INVALID FOR* Visit Notes: >> Ania Reed LPN SunFebruary 27, 2018 11:49 AM Status: Signed Est pt. Discuss recent labs, tx tomorrow Ania Reed LPN Encounter Status:Closed by OMAR GROSS DO on 02/27/18 CBC W/DIFF, AUTOMATED Collected: 02/27/2018 Status: F Source: [place] 9:44 AM [facility] [place] TYPE CODE TESTS RESULT OUT OF RANGE REFERENCE UNITS LAB L100.1000 4.4-11.0 K/mm3 Low WBC 4.3 LAB L100.1200 4.2-5.4 M/mm3 Low RBC 3.06 LAB L100.1300 12.0-15.0 g/dl Low HGB 9.8 LAB L100.1400 37-47 % Low HCT 30.2 LAB L100.1500 81-99 fL Normal MCV 98.7 LAB L100.1600 27.0-32.0 pg Normal MCH 32.0 LAB L100.1700 32-36 g/gl Normal MCHC 32.5 LAB L100.1810 11.6-14.6 % High RDW CV 18.0 LAB L100.1820 35.1-43.9 fl High RDW SD 62.0 LAB L100.1900 150-450 K/mm3 High PLT 452 LAB L100.2000 6.2-12.0 fl Normal MPV 8.8 LAB L100.2100 47-70 % Normal NEUT% 54.5 LAB L100.2200 19-41 % Normal LY% 33.5 LAB L100.2300 0-10 % Normal MONO% 9.4 LAB L100.2400 0-5 % Normal EO% 1.9 LAB L100.2500 0-1 % Normal BASO% 0.5 LAB L100.2550 0.0-0.9 % Normal IM GRAN % 0.200 Result Comment: IG% - Immature Granulocytes (promyelocytes, myelocytes and metamyelocytes) > 1% indicates that a LEFT SHIFT is Present. LAB L100.2620 2.0-7.7 X10 3/uL Normal Absolute Neut 2.3 LAB L100.2720 0.83-4.51 X10 3/ul Normal Absolute Lymph 1.43 Performed By: #### L100.0100 #### [facility] [address] [place], [address] COMPREHENSIVE METABOLIC Collected: 02/27/2018 Status: F Source: [facility] 9:44 AM [facility] [place] TYPE CODE TESTS RESULT OUT OF RANGE REFERENCE UNITS LAB L501.0100 74-106 mg/dL Normal GLU 91 Result Comment: Please note revised GLUCOSE reference range effective 2017. LAB L501.1000 7-18 mg/dL High BUN 21 LAB L501.1100 0.55-1.02 mg/dL Normal CREAT,SERUM 0.94 Result Comment: The validity of the calculated GFR AND GFRAA in patients over 70 years has not been determined. Clinical correlation is essential. LAB L501.1110 >60 mL/min Normal EST GFR 64 Result Comment: Non- GFR Calc LAB L501.1115 >60 mL/min Normal EST GFR - AA 78 Result Comment: GFR Calc LAB L501.1300 10-20 RATIO High BUN/CRE 22.3 LAB L501.1500 6.4-8.2 g/dL T Normal PROT 7.1 LAB L501.1800 3.2-5.0 g/dL Normal ALB 3.7 LAB L501.1950 2.2-4.2 g/dL Normal GLOB 3.4 LAB L501.2000 0.9-2.4 RATIO Normal A/G 1.1 LAB L501.2200 8.5-10.1 mg/dL CA Normal 8.7 LAB L501.4100 15-37 U/L High AST 44 LAB L501.4305 45-117 U/L High ALK P 125 LAB L501.4405 13-56 U/L High ALT 57 LAB L501.4600 0.20-1.00 mg/dL T Normal BILI 0.30 LAB L501.5300 136-145 mmol/L NA Normal 142 LAB L501.5600 3.5-5.1 mmol/L K Normal 4.0 LAB L501.5900 98-107 mmol/L CL Normal 102 LAB L501.6100 21.0-32.0 mmol/L High CO2 33.0 LAB L501.6200 5-15 Normal GAP 7 Performed By: #### L500.4050 #### [facility] [address] [facility] [place], [address] CANCER ANTIGEN 125 Collected: 02/27/2018 Status: F Source: [place] 9:44 AM [facility] [place] TYPE CODE TESTS RESULT OUT OF RANGE REFERENCE UNITS LAB L3100.5000 0.0-38.1 U/mL Normal CA125 27.9 2303 Result Comment: [place] ECLIA methodology Performed at: - [facility] [address] [id number] [place]: Carlo Bass PhD, Phone: [phone] Performed By: #### L3100.5000 #### [facility] (refer to report for specific site) refer to report for address and phone number TYPE AND SCREEN Collected: 02/12/2018 Status: F Source: [place] 12:26 PM [facility] [place] Order Comment: CMV NEG?* N Give When? [id number] Irradiated? N Leukodepleted? Y Reason for Type AND Screen/Red Cells: ANEMIA TYPE CODE TESTS RESULT OUT OF RANGE REFERENCE UNITS LAB B10.0800 O Normal BLOOD TYPE GEL NEGATIVE LAB B100.4000 Normal Antibody NEGATIVE Screen Performed By: #### B101.7450 #### [facility] [address] [place], [address] Collected: 02/12/2018 Status: F Source: [place] 12:26 PM [facility] [place] TYPE CODE TESTS RESULT OUT OF REFERENCE UNITS RANGE LAB U100.0000 [id number] TRANSFUSED PRODUCT: T AND S with Crossmatch, Red Cells COUNT: 2 Performed By: #### U100.0000 #### [facility] - refer to report for specific site CBC W/DIFF, AUTOMATED Collected: 02/11/2018 Status: C Source: [place] 11:55 AM [facility] [place] TYPE CODE TESTS RESULT OUT OF RANGE REFERENCE UNITS LAB L100.1000 4.4-11.0 K/mm3 Normal WBC 4.4 LAB L100.1200 4.2-5.4 M/mm3 Low RBC 2.50 LAB L100.1300 12.0-15.0 g/dl Low HGB 8.1 LAB L100.1400 37-47 % Low HCT 24.7 LAB L100.1500 81-99 fL Normal MCV 98.8 LAB L100.1600 27.0-32.0 pg High MCH 32.4 LAB L100.1700 32-36 g/gl Normal MCHC 32.8 LAB L100.1810 11.6-14.6 % High RDW CV 16.8 LAB L100.1820 35.1-43.9 fl High RDW SD 57.9 LAB L100.1900 150-450 K/mm3 Normal PLT 441 LAB L100.2000 6.2-12.0 fl Normal MPV 9.5 LAB L100.3100 MANUAL DIFF Normal CELLS COUNTED 100 LAB L100.3200 47-70 % High 71 SEGS LAB L100.3300 0-5 % 1 Normal BAND LAB L100.3800 19-41 % 23 Normal LYMPH LAB L100.3900 0-10 % 4 Normal MONOCYTE LAB L100.4000 0-5 % 1 Normal EOS LAB L100.2620 2.0-7.7 X10 3/uL Normal Absolute Neut 3.2 LAB L100.2720 0.83-4.51 X10 3/ul Normal Absolute Lymph 1.01 LAB L100.9900 Normal PATH REV Reviewed Result Comment: Normocytic anemia. Clinical correlation necessary. Jc Snyder M.D. 02/12/18 AMENDED REPORT 02/12/18 0957 PATH REV previously reported as: February Performed By: #### L100.0100 #### [facility] [address] [facility] [address] [place], [place], [address] CBC-COMPLETE BLOOD CNT Collected: 02/04/2018 Status: F Source: [place] NO DIFF 1:45 PM [facility] [place] TYPE CODE TESTS RESULT OUT OF RANGE REFERENCE UNITS LAB L100.1000 4.4-11.0 K/mm3 Low WBC 4.1 LAB L100.1200 4.2-5.4 M/mm3 Low RBC 2.72 LAB L100.1300 12.0-15.0 g/dl Low HGB 8.6 LAB L100.1400 37-47 % Low HCT 26.6 LAB L100.1500 81-99 fL Normal MCV 97.8 LAB L100.1600 27.0-32.0 pg Normal MCH 31.6 LAB L100.1700 32-36 g/gl Normal MCHC 32.3 LAB L100.1810 11.6-14.6 % High RDW CV 18.7 LAB L100.1820 35.1-43.9 fl High RDW SD 63.8 LAB L100.1900 150-450 K/mm3 High PLT 510 LAB L100.2000 6.2-12.0 fl Normal MPV 9.4 Performed By: #### L100.0500 #### [facility] [address] [place], [address] CBC W/DIFF, AUTOMATED Collected: 01/30/2018 Status: C Source: [place] 12:37 PM [facility] [place] TYPE CODE TESTS RESULT OUT OF REFERENCE UNITS RANGE LAB L100.1000 4.4-11.0 K/mm3 Low WBC 3.5 LAB L100.1200 4.2-5.4 M/mm3 Low RBC 2.66 LAB L100.1300 12.0-15.0 g/dl Low HGB 8.4 LAB L100.1400 37-47 % Low HCT 25.3 LAB L100.1500 81-99 fL MCV Normal 95.1 LAB L100.1600 27.0-32.0 pg MCH Normal 31.6 LAB L100.1700 32-36 g/gl MCHC Normal 33.2 LAB L100.1810 11.6-14.6 % RDW CV High 17.4 LAB L100.1820 35.1-43.9 fl RDW SD High 57.2 LAB L100.1900 150-450 K/mm3 Low PLT 95 LAB L100.2000 6.2-12.0 fl MPV Normal 9.7 LAB L100.3100 MANUAL DIFF CELLS COUNTED Normal 100 LAB L100.3200 47-70 % SEGS Normal 60 LAB L100.3300 0-5 % BAND Normal 1 LAB L100.3400 0-1 % META High 2 LAB L100.3700 0-0 % BLAST High alert 1 LAB L100.3800 19-41 % LYMPH Normal 28 LAB L100.3900 0-10 % MONOCYTE Normal 6 LAB L100.4000 0-5 % EOS Normal 2 LAB L100.4400 0-5 % NRBC,MANUAL CT Normal 1 LAB L100.5500 ADEQ PLT EST Normal MOD DEC LAB L100.7500 POLYCHROMASIA Normal 1+ LAB L100.7600 HYPOCHROMASIA Normal 2+ LAB L100.2620 2.0-7.7 X10 3/uL Absolute Neut Normal 2.1 LAB L100.2720 0.83-4.51 X10 3/ul Absolute Lymph Normal 0.97 LAB L100.9900 PATH REV Normal Reviewed Result Comment: Pancytopenia. Moderate Thrombocytopenia. Normocytic anemia. Leukopenia. Clinical correlation necessary. Kumar Vivar D.O. 01/31/18 AMENDED REPORT 01/31/18 1145 PATH REV previously reported as: May foll Performed By: #### L100.0100 #### [facility] [address] [place], [address] COMPREHENSIVE METABOLIC Collected: 01/30/2018 Status: F Source: [place] 12:37 PM [facility] [place] TYPE CODE TESTS RESULT OUT OF RANGE REFERENCE UNITS LAB L501.0100 74-106 mg/dL Normal GLU 93 Result Comment: Please note revised GLUCOSE reference range effective 2017. LAB L501.1000 7-18 mg/dL Normal BUN 15 LAB L501.1100 0.55-1.02 mg/dL Normal CREAT,SERUM 0.76 Result Comment: The validity of the calculated GFR AND GFRAA in patients over 70 years has not been determined. Clinical correlation is essential. LAB L501.1110 >60 mL/min Normal EST GFR 82 Result Comment: Non- GFR Calc LAB L501.1115 >60 mL/min Normal EST GFR - AA 99 Result Comment: GFR Calc LAB L501.1300 10-20 RATIO Normal BUN/CRE 19.7 LAB L501.1500 6.4-8.2 g/dL T Normal PROT 7.6 LAB L501.1800 3.2-5.0 g/dL Normal ALB 3.8 LAB L501.1950 2.2-4.2 g/dL Normal GLOB 3.8 LAB L501.2000 0.9-2.4 RATIO Normal A/G 1.0 LAB L501.2200 8.5-10.1 mg/dL CA Normal 8.6 LAB L501.4100 15-37 U/L Normal AST 16 LAB L501.4305 45-117 U/L High ALK P 151 LAB L501.4405 13-56 U/L Normal ALT 35 Result Comment: Please note revised ALT reference range effective 2017. LAB L501.4600 0.20-1.00 mg/dL Normal T BILI 0.20 LAB L501.5300 136-145 mmol/L Normal NA 142 LAB L501.5600 3.5-5.1 mmol/L Normal K 3.6 LAB L501.5900 98-107 mmol/L High CL 108 LAB L501.6100 21.0-32.0 mmol/L Normal CO2 27.0 LAB L501.6200 5-15 Normal GAP 7 Performed By: #### L500.4050 #### [facility] [address] [place], [address] CANCER ANTIGEN 125 Collected: 01/30/2018 Status: F Source: [place] 12:37 PM [facility] [place] TYPE CODE TESTS RESULT OUT OF RANGE REFERENCE UNITS LAB L3100.5000 0.0-38.1 U/mL Normal CA125 25.0 2303 Result Comment: [place] ECLIA methodology Performed at: - [facility] [address] [id number] [place]: Carlo Bass PhD, Phone: [phone] Performed By: #### L3100.5000 #### [facility] (refer to report for specific site) refer to report for address and phone number CBC W/DIFF, AUTOMATED Collected: 01/14/2018 Status: F Source: [place] 11:40 AM [facility] [place] TYPE CODE TESTS RESULT OUT OF RANGE REFERENCE UNITS LAB L100.1000 4.4-11.0 K/mm3 Low WBC 3.8 LAB L100.1200 4.2-5.4 M/mm3 Low RBC 3.13 LAB L100.1300 12.0-15.0 g/dl Low HGB 9.6 LAB L100.1400 37-47 % Low HCT 29.6 LAB L100.1500 81-99 fL Normal MCV 94.6 LAB L100.1600 27.0-32.0 pg Normal MCH 30.7 LAB L100.1700 32-36 g/gl Normal MCHC 32.4 LAB L100.1810 11.6-14.6 % High RDW CV 18.3 LAB L100.1820 35.1-43.9 fl High RDW SD 61.8 LAB L100.1900 150-450 K/mm3 Normal PLT 353 LAB L100.2000 6.2-12.0 fl Normal MPV 9.5 LAB L100.2100 47-70 % Normal NEUT% 49.2 LAB L100.2200 19-41 % Normal LY% 38.7 LAB L100.2300 0-10 % Normal MONO% 8.4 LAB L100.2400 0-5 % Normal EO% 2.4 LAB L100.2500 0-1 % Normal BASO% 0.5 LAB L100.2550 0.0-0.9 % Normal IM GRAN % 0.800 Result Comment: IG% - Immature Granulocytes (promyelocytes, myelocytes and metamyelocytes) > 1% indicates that a LEFT SHIFT is Present. LAB L100.2620 2.0-7.7 X10 3/uL Low Absolute Neut 1.9 LAB L100.2720 0.83-4.51 X10 3/ul Normal Absolute Lymph 1.47 Performed By: #### L100.0100 #### [facility] [place], [address] PROGRESS Observed: 01/09/2018 Status: COMPLETED Source: [place] 4:02 PM [facility] REPOSITORY HNO ID: [id number] Author: Omar Gross Service: (none) Author Type: Physician Type: Progress Notes Filed: 01/11/2018 9:47 AM Note Text: Diagnosis: 1) Ovarian cancer. HPI: The patient is a 62 year old female who presented to her PCP prior to a trip to [facility] for vaccinations. She reported that she was having lower pelvic pain and bloating as well as lower leg cramping. She had a BMP done and her LFTs were elevated so her PCP ordered an ultrasound of the liver. The ultrasound showed some mild ascites and a right lower quadrant mass. She had a CT scan of the chest/abdomen/pelvis which showed multiple pelvic masses and enlarged lymph nodes. A pelvic ultrasound was also done. Her CA125 was elevated at 2342 U/mL (CEA was WNL). She had a colonoscopy on 10/28/2012 which showed some microscopic colitis and hemorrhoids but was otherwise negative. Random biopsies were obtained and the pathology demonstrated a non-small cell carcinoma. Immunostains were positive for CK 7, CK 8, estrogen receptors. Specimen was negative for CK 20. PRIOR TREATMENT: 1) Carboplatin/paclitaxel x3 cycles. 2) 01/09/2013 - Exploratory laparotomy, total abdominal hysterectomy, bilateral salpingo- oophorectomy, omentectomy, pelvic peritoneal stripping, excision of peritoneal nodules, left pelvic lymph node biopsy, argon beam ablation of peritoneal implants with Dr. Avery, and interval debulking surgery for initial resection of ovarian cancer. 3) Received one post operative cycle carbo/Taxol 01/27/13. 4) Was hospitalized on 02/05/13 for small bowel obstruction. It was relieved with medical/conservative management. 5) Carbo with weekly Taxol x 6 cycles, completed 05/27/13. 6) [place]/carbo/cassandra x cycles for biopsy proven metastatic disease (intrahepatic metastases--Had been asymptomatic, but was noted to have an increase in CA-125. CT scan of the abdomen and pelvis was obtained to further evaluate. The study demonstrated 2 lesions within the liver that were suspicious for metastatic disease. She underwent a CT- guided biopsy. 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 7) Bevacizumab. 8) Carbo/Taxol x6 cycles completed 11/09/2016. 9) Doxil. PD following 5 cycles. Current therapy: 1) Topotecan. Presents for ongoing oncologic management. Evaluation for cycle #4. Interim history: She is tolerating topotecan well. He felt significantly better in terms of shortness of breath after receiving blood transfusion. She has no symptomatic side effect otherwise from the chemotherapy. No abdominal pain, bloating or distention. No episodes of jaundice. Bowels are working regularly. Appetite is normal. No nausea with the use of olanzapine every night. Medications and allergies as below personally reviewed by me today. Any changes documented in appropriate section. ROS: Constitutional: Denies episodes night sweats. Neuro: Denies KLEIN, vertigo, dizziness and imbalance. HEENT: No recent change in voice, vision or hearing. Resp: Denies cough, wheeze and hemoptysis. CVS: No exertional chest pain/pressure or tightness. No PND or orthopnea. No lower extremity swelling or edema. GI: Denies dysgeusia. Denies symptoms of stomatitis. Denies dysphagia and odynophagia. : Denies dysuria or gross hematuria. Endo: Denies hot flashes. Denies polyuria and polydipsia. Denies heat and cold intolerance. Musculoskeletal: Stable symptoms of left-sided sciatica with pain down lateral aspect of thigh. Derm: Denies rash. Denies diffuse pruritis. Heme: See above. Psych: Normal mood. PHYSICAL EXAM: Vitals: Blood pressure 127/78, pulse 86, temperature 36.6 ?C (97.9 ?F), weight 87.3 kg (192 lb 8 oz), last menstrual period 12/10/2011. Well-appearing and in no acute distress. EYES: Sclerae are anicteric bilaterally. NECK: Supple. LYMPHATIC: There is no palpable cervical, supraclavicular or axillary adenopathy. RESPIRATORY: Inspiratory breath sounds are of normal intensity in all rodriguez. No rales, wheezes or rhonchi. CARDIOVASCULAR: Rhythm is regular. Normal intensity S1/S2. There is no gallop or murmur. ABDOMEN: The abdomen is nondistended. There is no organomegaly. No tenderness. No fluid wave. Extremities: Free of edema. SKIN: No jaundice or rash. No petechiae. NEUROLOGIC: rand maker II-XII are grossly intact. No focal motor weakness. ASSESSMENT/PLAN: 1) Ovarian cancer. KPS is 90%. Biopsy-proven recurrence. [place] refractory. -She is tolerating topotecan well thus far. -CA125 trending down. -Symptomatic anemia requiring transfusion. Plan: -Cycle #4 topotecan on Sunday 01/14 pending CBC results that day. -Decrease Neupogen to 7 days post cycle. -CT C/A/P pending CA125 trend. -Continue olanzapine. -Somatic BRCA mutation analysis negative. Omar Gross DO CNOVSP Observed: 01/09/2018 Status: COMPLETED Source: [place] 4:00 PM [facility] REPOSITORY Visit (SP) Office (PRISCILLA) IVA CUEVA ([id number]) 1955 F Date Time Provider Department 01/09/18 4:00 PM OMAR GROSS During your visit today, we recorded the following information about you: Temperature Pulse Blood pressure Weight 97.9 degrees 86/minute 127/78 87.3 kg Jane James LPN 01/09/2018 4:18 PM Signed Est patient. Discuss recent labs. Jane Gross DO 01/11/2018 9:47 AM Signed Diagnosis: 1) Ovarian cancer. HPI: The patient is a 62 year old female who presented to her PCP prior to a trip to [facility] for vaccinations. She reported that she was having lower pelvic pain and bloating as well as lower leg cramping. She had a BMP done and her LFTs were elevated so her PCP ordered an ultrasound of the liver. The ultrasound showed some mild ascites and a right lower quadrant mass. She had a CT scan of the chest/abdomen/pelvis which showed multiple pelvic masses and enlarged lymph nodes. A pelvic ultrasound was also done. Her CA125 was elevated at 2342 U/mL (CEA was WNL). She had a colonoscopy on 10/28/2012 which showed some microscopic colitis and hemorrhoids but was otherwise negative. Random biopsies were obtained and the pathology demonstrated a non- small cell carcinoma. Immunostains were positive for CK 7, CK 8, estrogen receptors. Specimen was negative for CK 20. PRIOR TREATMENT: 1) Carboplatin/paclitaxel x3 cycles. 2) 01/09/2013 - Exploratory laparotomy, total abdominal hysterectomy, bilateral salpingo- oophorectomy, omentectomy, pelvic peritoneal stripping, excision of peritoneal nodules, left pelvic lymph node biopsy, argon beam ablation of peritoneal implants with Dr. Avery, and interval debulking surgery for initial resection of ovarian cancer. 3) Received one post operative cycle carbo/Taxol 01/27/13. 4) Was hospitalized on 02/05/13 for small bowel obstruction. It was relieved with medical/conservative management. 5) Carbo with weekly Taxol x 6 cycles, completed 05/27/13. 6) [place]/carbo/cassandra x cycles for biopsy proven metastatic disease (intrahepatic metastases--Had been asymptomatic, but was noted to have an increase in CA-125. CT scan of the abdomen and pelvis was obtained to further evaluate. The study demonstrated 2 lesions within the liver that were suspicious for metastatic disease. She underwent a CT-guided biopsy. 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 7) Bevacizumab. 8) Carbo/Taxol x6 cycles completed 11/09/2016. 9) Doxil. PD following 5 cycles. Current therapy: 1) Topotecan. Presents for ongoing oncologic management. Evaluation for cycle #4. Interim history: She is tolerating topotecan well. He felt significantly better in terms of shortness of breath after receiving blood transfusion. She has no symptomatic side effect otherwise from the chemotherapy. No abdominal pain, bloating or distention. No episodes of jaundice. Bowels are working regularly. Appetite is normal. No nausea with the use of olanzapine every night. Medications and allergies as below personally reviewed by me today. Any changes documented in appropriate section. ROS: Constitutional: Denies episodes night sweats. Neuro: Denies KLEIN, vertigo, dizziness and imbalance. HEENT: No recent change in voice, vision or hearing. Resp: Denies cough, wheeze and hemoptysis. CVS: No exertional chest pain/pressure or tightness. No PND or orthopnea. No lower extremity swelling or edema. GI: Denies dysgeusia. Denies symptoms of stomatitis. Denies dysphagia and odynophagia. : Denies dysuria or gross hematuria. Endo: Denies hot flashes. Denies polyuria and polydipsia. Denies heat and cold intolerance. Musculoskeletal: Stable symptoms of left-sided sciatica with pain down lateral aspect of thigh. Derm: Denies rash. Denies diffuse pruritis. Heme: See above. Psych: Normal mood. PHYSICAL EXAM: Vitals: Blood pressure 127/78, pulse 86, temperature 36.6 ?C (97.9 ?F), weight 87.3 kg (192 lb 8 oz), last menstrual period 12/10/2011. Well-appearing and in no acute distress. EYES: Sclerae are anicteric bilaterally. NECK: Supple. LYMPHATIC: There is no palpable cervical, supraclavicular or axillary adenopathy. RESPIRATORY: Inspiratory breath sounds are of normal intensity in all rodriguez. No rales, wheezes or rhonchi. CARDIOVASCULAR: Rhythm is regular. Normal intensity S1/S2. There is no gallop or murmur. ABDOMEN: The abdomen is nondistended. There is no organomegaly. No tenderness. No fluid wave. Extremities: Free of edema. SKIN: No jaundice or rash. No petechiae. NEUROLOGIC: rand maker II-XII are grossly intact. No focal motor weakness. ASSESSMENT/PLAN: 1) Ovarian cancer. KPS is 90%. Biopsy-proven recurrence. [place] refractory. -She is tolerating topotecan well thus far. -CA125 trending down. -Symptomatic anemia requiring transfusion. Plan: -Cycle #4 topotecan on Sunday 01/14 pending CBC results that day. -Decrease Neupogen to 7 days post cycle. -CT C/A/P pending CA125 trend. -Continue olanzapine. -Somatic BRCA mutation analysis negative. Omar Gross DO Referring Provider: OMAR GROSS [[id number]] Allergies As of Date: 01/09/2018 Noted Allergy Reaction CODEINE 05/03/2007 5 - Intolerance PERCOCET (OXYCODONE-ACETAMINOPHEN)06/29/2015 9 - Itching Seasonal [Other] 06/05/2007 ULTRAM (TRAMADOL HCL) 01/08/2013 9 - Itching VICODIN (HYDROCODONE-ACETAMINOPHE*08/26/2007 9 - Itching Date Reviewed: 01/09/2018 Reviewed by: Jane James LPN - Fully Assessed Reason for Visit: Established Patient [175] Primary Visit Diagnosis:Cancer of both ovaries (HCC) [C56.1, C56.2] Follow-up and Disposition History Recorded Prescriptions as of 01/09/2018 Sig: ONDANSETRON HCL 8 MG TABLET Take 1 tablet by mouth every * NABUMETONE 500 MG TABLET Take 2 tablets by mouth twice* LIDOCAINE-PRILOCAINE 2.5 %-2.* Apply 1 application to affect* LISINOPRIL 20 MG TABLET Take 1 tablet by mouth once d* OLANZAPINE 10 MG TABLET Take 1 tablet by mouth daily * MELATONIN 10 MG TABLET Take 1 tablet by mouth at bed* CYCLOBENZAPRINE 10 MG TABLET Take 1 tablet by mouth every * ZOLPIDEM 5 MG TABLET Take 1 tablet by mouth at bed* PROMETHAZINE 25 MG TABLET Take 1 tablet by mouth every * OMEPRAZOLE 40 MG CAPSULE,BASSEM* Take 1 capsule by mouth once * MORPHINE CONCENTRATE 100 MG/5* Take 0.5 mL by mouth every 4 * GABAPENTIN 300 MG CAPSULE Take 3 capsules by mouth thre* LORATADINE 10 MG TABLET Take 10 mg by mouth once debora* DOCUSATE SODIUM 100 MG CAPSULE Take 100 mg by mouth twice da* POLYETHYLENE GLYCOL 3350 17 G* Take 17 g by mouth once daily. NAPROXEN SODIUM 220 MG TABLET Take 220 mg by mouth as neede* SENOKOT ORAL Take by mouth once daily. AMOXICILLIN 500 MG TABLET Take 500 mg by mouth four sharyn* MAGNESIUM OXIDE 400 MG TABLET Take 400 mg by mouth once nilda* HYDROCODONE-HOMATROPINE 5 MG-* Take 5 mL by mouth every 4 ho* DEXAMETHASONE 4 MG TABLET Take 1 tablet twice the day p* ONDANSETRON HCL 8 MG TABLET Take 1 tablet by mouth every * FLUTICASONE 50 MCG/ACTUATION * Use 1 [place] in each nostril o* ERGOCALCIFEROL (VITAMIN D2) 5* Take 2 capsules a week for 8 * MULTIVITAMIN TABLET Take 1 tablet by mouth once d* Medication notes this encounter NABUMETONE 500 MG TABLET >> Jane James LPN 01/09/2018 3:59 PM >> JAMES TRUSS ASSEMBLERJANE Ireland SunJan 09, 2018 3:59 PM Takes 1 tablet twice a day GABAPENTIN 300 MG CAPSULE >> Jane James LPN 01/09/2018 3:58 PM >> JAMES TRUSS ASSEMBLERJANE Ireland SunJan 09, 2018 3:58 PM Takes 2 capsules at bedtime Problem List As Of Date 01/09/2018 Noted Resolved Calculus of gallbladder with other cholecystiti*INVALID FOR*09/22/2016 DIARRHEA SPECIFIED ORGANISM NEC [A08.8] INVALID FOR*09/22/2016 Sebaceous cyst [L72.3] INVALID FOR*09/22/2016 Carcinomatosis [C80.0] INVALID FOR*01/02/2014 Ovarian cancer (HCC) [C56.9] INVALID FOR*09/22/2016 Vaginal atrophy [N95.2] INVALID FOR*09/22/2016 Climacteric [N95.1] INVALID FOR*09/22/2016 Anorectal pain [K62.89] INVALID FOR*09/22/2016 Hemorrhoid [K64.9] INVALID FOR*09/22/2016 Anal fissure [K60.2] INVALID FOR*09/22/2016 Cancer of both ovaries (HCC) [C56.1, C56.2] INVALID FOR* Visit Notes: >> Jane Elaine MOURA SunJan 09, 2018 3:59 PM Status: Signed Est patient. Discuss recent labs. Jane James LPN Encounter Status:Closed by OMAR GROSS DO on 01/11/18 CBC W/DIFF, AUTOMATED Collected: 01/09/2018 Status: C Source: [place] 10:12 AM [facility] [place] CODE TESTS RESULT OUT OF RANGE REFERENCE UNITS LAB L100.1000 4.4-11.0 K/mm3 High alert WBC 34.6 Result Comment: CRITICAL VALUE VERIFIED. CALLED TO JANE AT 'S OFFICE 01/09/18 1028 Tiki Tran. RESULTS READ BACK BY SAME . LAB L100.1200 4.2-5.4 M/mm3 Low RBC 3.11 LAB L100.1300 12.0-15.0 g/dl Low HGB 9.5 LAB L100.1400 37-47 % Low HCT 29.3 LAB L100.1500 81-99 fL MCV Normal 94.2 LAB L100.1600 27.0-32.0 pg MCH Normal 30.5 LAB L100.1700 32-36 g/gl MCHC Normal 32.4 LAB L100.1810 11.6-14.6 % RDW CV High 18.8 LAB L100.1820 35.1-43.9 fl RDW SD High 61.1 LAB L100.1900 150-450 K/mm3 Low PLT 86 LAB L100.2000 6.2-12.0 fl MPV Normal 9.8 LAB L100.3100 MANUAL DIFF CELLS COUNTED Normal 100 LAB L100.3200 47-70 % SEGS High 80 LAB L100.3300 0-5 % BAND Normal 1 LAB L100.3400 0-1 % META High 4 LAB L100.3500 0-0 MYELO High 1 LAB L100.3600 0-0 PROMYELO High 1 LAB L100.3800 19-41 % Low LYMPH 8 LAB L100.3900 0-10 % MONOCYTE Normal 5 LAB L100.5500 ADEQ PLT EST Normal MOD DEC LAB L100.7300 ANISO Normal RARE LAB L100.7500 POLYCHROMASIA Normal RARE LAB L100.7600 HYPOCHROMASIA Normal 1+ LAB L100.2620 2.0-7.7 X10 3/uL Absolute Neut High 28.0 LAB L100.2720 0.83-4.51 X10 3/ul Absolute Lymph Normal 2.77 LAB L100.9900 PATH REV Normal Reviewed Result Comment: Neutrophilic leukocytosis with left shift. Normocytic anemia. Thrombocytopenia. Clinical correlation necessary. Jc Snyder M.D. 01/10/18 AMENDED REPORT 01/10/18 1453 PATH REV previously reported as: Iman gunderson Performed By: #### L100.0100 #### [facility] [address] [place], [place], [id number] COMPREHENSIVE METABOLIC Collected: 01/09/2018 Status: F Source: [facility] 10:12 AM [facility] [place] TYPE CODE TESTS RESULT OUT OF RANGE REFERENCE UNITS LAB L501.0100 74-106 mg/dL High GLU 109 Result Comment: Fasting Glucose result from 100 to 125 mg/dL suggests IMPAIRED HOMEOSTASIS per A.D.A. criteria. Please note revised GLUCOSE reference range effective 2017. LAB L501.1000 7-18 mg/dL Normal BUN 18 LAB L501.1100 0.55-1.02 mg/dL Normal CREAT,SERUM 1.02 Result Comment: The validity of the calculated GFR AND GFRAA in patients over 70 years has not been determined. Clinical correlation is essential. LAB L501.1110 >60 mL/min Low EST GFR 59 Result Comment: Non- GFR Calc LAB L501.1115 >60 mL/min Normal EST GFR - AA 71 Result Comment: GFR Calc LAB L501.1300 10-20 RATIO Normal BUN/CRE 17.6 LAB L501.1500 6.4-8.2 g/dL T Normal PROT 7.4 LAB L501.1800 3.2-5.0 g/dL Normal ALB 3.6 LAB L501.1950 2.2-4.2 g/dL Normal GLOB 3.8 LAB L501.2000 0.9-2.4 RATIO Normal A/G 0.9 LAB L501.2200 8.5-10.1 mg/dL CA Normal 8.6 LAB L501.4100 15-37 U/L Normal AST 28 LAB L501.4305 45-117 U/L High ALK P 265 LAB L501.4405 13-56 U/L Normal ALT 54 Result Comment: Please note revised ALT reference range effective 2017. LAB L501.4600 0.20-1.00 mg/dL Normal T BILI 0.50 LAB L501.5300 136-145 mmol/L Normal NA 141 LAB L501.5600 3.5-5.1 mmol/L Normal K 3.7 LAB L501.5900 98-107 mmol/L Normal CL 103 LAB L501.6100 21.0-32.0 mmol/L Normal CO2 32.0 LAB L501.6200 5-15 Normal GAP 6 Performed By: #### L500.4050 #### [facility] [address] [place], [address] CANCER ANTIGEN 125 Collected: 01/09/2018 Status: F Source: [place] 10:12 AM [facility] [place] TYPE CODE TESTS RESULT OUT OF RANGE REFERENCE UNITS LAB L3100.5000 0.0-38.1 U/mL Normal CA125 25.2 2303 Result Comment: Meghna ECLIA methodology Performed at: [facility] [id number] [place] Carpenter: Carlo Bass PhD, Phone: [phone] Performed By: #### L3100.5000 #### [facility] (refer to report for specific site) refer to report for address and phone number TYPE AND SCREEN Collected: 01/02/2018 Status: F Source: [place] 4:21 PM [facility] [place] Order Comment: CMV NEG?* N Give When? When Ready Irradiated? N Leukodepleted? Y Reason for Type AND Screen/Red Cells: ANEMIA TYPE CODE TESTS RESULT OUT OF RANGE REFERENCE UNITS LAB B10.0800 O Normal BLOOD TYPE GEL NEGATIVE LAB B100.4000 Normal Antibody NEGATIVE Screen Performed By: #### B101.7450 #### [facility] [address] [place], [address] RC Collected: 01/02/2018 Status: F Source: [place] 4:21 PM [facility] [place] TYPE CODE TESTS RESULT OUT OF REFERENCE UNITS RANGE LAB U100.0000 [id number] TRANSFUSED PRODUCT: T AND S with Crossmatch, Red Cells COUNT: 2 Performed By: #### U100.0000 #### [facility] - refer to report for specific site CBC W/DIFF, AUTOMATED Collected: 01/02/2018 Status: F Source: [place] 11:27 AM [facility] [place] TYPE CODE TESTS RESULT OUT OF RANGE REFERENCE UNITS LAB L100.1000 4.4-11.0 K/mm3 Low WBC 1.7 LAB L100.1200 4.2-5.4 M/mm3 Low RBC 2.21 LAB L100.1300 12.0-15.0 g/dl Low HGB 6.9 LAB L100.1400 37-47 % Low HCT 20.4 LAB L100.1500 81-99 fL Normal MCV 92.3 LAB L100.1600 27.0-32.0 pg Normal MCH 31.2 LAB L100.1700 32-36 g/gl Normal MCHC 33.8 LAB L100.1810 11.6-14.6 % High RDW CV 17.6 LAB L100.1820 35.1-43.9 fl High RDW SD 59.8 LAB L100.1900 150-450 K/mm3 Low PLT 127 LAB L100.2000 6.2-12.0 fl Normal MPV 8.9 LAB L100.2100 47-70 % Low NEUT% 46.8 LAB L100.2200 19-41 % High LY% 41.6 LAB L100.2300 0-10 % High MONO% 10.4 LAB L100.2400 0-5 % Normal EO% 0.0 LAB L100.2500 0-1 % Normal BASO% 0.0 LAB L100.2550 0.0-0.9 % High IM GRAN % 1.200 Result Comment: IG% - Immature Granulocytes (promyelocytes, myelocytes and metamyelocytes) > 1% indicates that a LEFT SHIFT is Present. LAB L100.2620 2.0-7.7 X10 3/uL Low Absolute Neut 0.8 LAB L100.2720 0.83-4.51 X10 3/ul Low Absolute Lymph 0.72 LAB L100.5500 ADEQ PLT EST Normal ADEQUATE LAB L100.7300 ANISO Normal 1+ LAB L100.7600 HYPOCHROMASIA Normal 1+ LAB L100.7700 MICROCYTES Normal RARE Performed By: #### L100.0100 #### [facility] [address] [place], [place], [address] CBC W/DIFF, AUTOMATED Collected: 12/24/2017 Status: C Source: [place] 1:00 PM [facility] [place] TYPE CODE TESTS RESULT OUT OF REFERENCE UNITS RANGE LAB L100.1000 4.4-11.0 K/mm3 WBC Normal 8.5 LAB L100.1200 4.2-5.4 M/mm3 Low RBC 2.56 LAB L100.1300 12.0-15.0 g/dl Low HGB 8.1 LAB L100.1400 37-47 % Low HCT 24.5 LAB L100.1500 81-99 fL MCV Normal 95.7 LAB L100.1600 27.0-32.0 pg MCH Normal 31.6 LAB L100.1700 32-36 g/gl MCHC Normal 33.1 LAB L100.1810 11.6-14.6 % RDW CV High 18.2 LAB L100.1820 35.1-43.9 fl RDW SD High 55.6 LAB L100.1900 150-450 K/mm3 PLT Normal 397 LAB L100.2000 6.2-12.0 fl MPV Normal 9.4 LAB L100.3100 MANUAL DIFF CELLS COUNTED Normal 100 LAB L100.3200 47-70 % SEGS Normal 69 LAB L100.3300 0-5 % BAND Normal 3 LAB L100.3400 0-1 % META High 2 LAB L100.3500 0-0 MYELO High 2 LAB L100.3600 0-0 PROMYELO High 1 LAB L100.3800 19-41 % Low LYMPH 11 LAB L100.3900 0-10 % MONOCYTE Normal 10 LAB L100.4000 0-5 % EOS Normal 2 LAB L100.5500 ADEQ PLT EST Normal ADEQUATE LAB L100.7600 HYPOCHROMASIA Normal 1+ LAB L100.2620 2.0-7.7 X10 3/uL Absolute Neut Normal 6.1 LAB L100.2720 0.83-4.51 X10 3/ul Absolute Lymph Normal 0.93 LAB L100.9900 PATH REV Normal Reviewed Result Comment: Neutrophilic left shift. Normocytic anemia. Clinical correlation necessary. Jc Snyder M.D. 12/26/17 Pathologist comment added AMENDED REPORT 12/26/17 1502 PATH REV previously reported as: February Performed By: #### L100.0100 #### [facility] [place], [address] CNOVSP Observed: 12/19/2017 Status: COMPLETED Source: [place] 11:50 AM [facility] REPOSITORY Visit (SP) Office (HEMAWS) IVA CUEVA ([id number]) 1955 F Date Time Provider Department 12/19/17 11:50 AM OMAR GROSS During your visit today, we recorded the following information about you: Temperature Pulse Blood pressure Weight 98 degrees 106/minute 131/83 87.1 kg Omar Gross DO 12/19/2017 12:39 PM Signed Diagnosis: 1) Ovarian cancer. HPI: The patient is a 62 year old female who presented to her PCP prior to a trip to [facility] for vaccinations. She reported that she was having lower pelvic pain and bloating as well as lower leg cramping. She had a BMP done and her LFTs were elevated so her PCP ordered an ultrasound of the liver. The ultrasound showed some mild ascites and a right lower quadrant mass. She had a CT scan of the chest/abdomen/pelvis which showed multiple pelvic masses and enlarged lymph nodes. A pelvic ultrasound was also done. Her CA125 was elevated at 2342 U/mL (CEA was WNL). She had a colonoscopy on 10/28/2012 which showed some microscopic colitis and hemorrhoids but was otherwise negative. Random biopsies were obtained and the pathology demonstrated a non- small cell carcinoma. Immunostains were positive for CK 7, CK 8, estrogen receptors. Specimen was negative for CK 20. PRIOR TREATMENT: 1) Carboplatin/paclitaxel x3 cycles. 2) 01/09/2013 - Exploratory laparotomy, total abdominal hysterectomy, bilateral salpingo- oophorectomy, omentectomy, pelvic peritoneal stripping, excision of peritoneal nodules, left pelvic lymph node biopsy, argon beam ablation of peritoneal implants with Dr. Avery, and interval debulking surgery for initial resection of ovarian cancer. 3) Received one post operative cycle carbo/Taxol 01/27/13. 4) Was hospitalized on 02/05/13 for small bowel obstruction. It was relieved with medical/conservative management. 5) Carbo with weekly Taxol x 6 cycles, completed 05/27/13. 6) [place]/carbo/cassandra x cycles for biopsy proven metastatic disease (intrahepatic metastases--Had been asymptomatic, but was noted to have an increase in CA-125. CT scan of the abdomen and pelvis was obtained to further evaluate. The study demonstrated 2 lesions within the liver that were suspicious for metastatic disease. She underwent a CT-guided biopsy. 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 7) Bevacizumab. 8) Carbo/Taxol x6 cycles completed 11/09/2016. 9) Doxil. PD following 5 cycles. Current therapy: 1) Topotecan. Presents for ongoing oncologic management. Evaluation for cycle #3. Interim history: She is tolerating topotecan well but she is having worsening shortness of breath with exertion and more generalized fatigue. She is able to walk short distances but is not capable of exertion to the point of she can't be on her feet for more than a few minutes at a time. No unusual bleeding or unexplained bruising. Appetite is normal. No abdominal pain, bloating or distention. No episodes of jaundice. No symptoms of neuropathy at this point. Medications and allergies as below personally reviewed by me today. Any changes documented in appropriate section. ROS: Constitutional: Denies episodes night sweats. Neuro: Denies KLEIN, vertigo, dizziness and imbalance. HEENT: No recent change in voice, vision or hearing. Resp: Denies cough, wheeze and hemoptysis. CVS: No exertional chest pain/pressure or tightness. No PND or orthopnea. No lower extremity swelling or edema. GI: Denies dysgeusia. Denies symptoms of stomatitis. Denies dysphagia and odynophagia. : Denies dysuria or gross hematuria. Endo: Denies hot flashes. Denies polyuria and polydipsia. Denies heat and cold intolerance. Musculoskeletal: Stable symptoms of left-sided sciatica with pain down lateral aspect of thigh. Derm: Denies rash. Denies diffuse pruritis. Heme: See above. Psych: Normal mood. PHYSICAL EXAM: Vitals: Blood pressure 131/83, pulse 106, temperature 36.7 ?C (98 ?F), weight 87.1 kg (192 lb), last menstrual period 12/10/2011. Well-appearing and in no acute distress. EYES: Sclerae are anicteric bilaterally. NECK: Supple. LYMPHATIC: There is no palpable cervical, supraclavicular or axillary adenopathy. RESPIRATORY: Inspiratory breath sounds are of normal intensity in all rodriguez. No rales, wheezes or rhonchi. CARDIOVASCULAR: Rhythm is regular. Normal intensity S1/S2. There is no gallop or murmur. ABDOMEN: The abdomen is nondistended. There is no organomegaly. No tenderness. No fluid wave. Extremities: Free of edema. SKIN: No jaundice or rash. No petechiae. NEUROLOGIC: rand maker II-XII are grossly intact. No focal motor weakness. ASSESSMENT/PLAN: 1) Ovarian cancer. KPS is 90%. Biopsy-proven recurrence. Bill Moore'[place] refractory. -She is tolerating topotecan well thus far. -CA125 trending down. -Symptomatic anemia. Hemoglobin today is 8.2 g/dL. She is short of breath with heavier exertion not short of breath at rest. We discussed the pros and cons of transfusion at this juncture we'll continue to monitor expectantly. Plan: -Cycle #3 topotecan on Sunday 12/24 pending CBC results that day. -Neupogen x10 days post cycle. -CT C/A/P prior to cycle #4 or sooner pending CA125 trend. -Continue olanzapine. -Somatic BRCA mutation analysis pending. DO Ania Dominguez LPN, LPN 12/19/2017 12:11 PM Signed Est pt. Discuss recent lab results Ania Reed LPN Referring Provider: OMAR GROSS [[id number]] Allergies As of Date: 12/19/2017 Noted Allergy Reaction CODEINE 05/03/2007 5 - Intolerance PERCOCET (OXYCODONE-ACETAMINOPHEN)06/29/2015 9 - Itching Seasonal [Other] 06/05/2007 ULTRAM (TRAMADOL HCL) 01/08/2013 9 - Itching VICODIN (HYDROCODONE-ACETAMINOPHE*08/26/2007 9 - Itching Date Reviewed: 12/19/2017 Reviewed by: Ania Bishop) MARTELL Reed - Fully Assessed Reason for Visit: Established Patient [175] Primary Visit Diagnosis:Cancer of both ovaries (HCC) [C56.1, C56.2] Follow-up and Disposition History Recorded Prescriptions as of 12/19/2017 Sig: ONDANSETRON HCL 8 MG TABLET Take 1 tablet by mouth every * LIDOCAINE-PRILOCAINE 2.5 %-2.* Apply 1 application to affect* LISINOPRIL 20 MG TABLET Take 1 tablet by mouth once d* OLANZAPINE 10 MG TABLET Take 1 tablet by mouth daily * MELATONIN 10 MG TABLET Take 1 tablet by mouth at bed* CYCLOBENZAPRINE 10 MG TABLET Take 1 tablet by mouth every * ZOLPIDEM 5 MG TABLET Take 1 tablet by mouth at bed* PROMETHAZINE 25 MG TABLET Take 1 tablet by mouth every * OMEPRAZOLE 40 MG CAPSULE,BASSEM* Take 1 capsule by mouth once * MORPHINE CONCENTRATE 100 MG/5* Take 0.5 mL by mouth every 4 * GABAPENTIN 300 MG CAPSULE Take 3 capsules by mouth thre* LORATADINE 10 MG TABLET Take 10 mg by mouth once debora* DOCUSATE SODIUM 100 MG CAPSULE Take 100 mg by mouth twice da* POLYETHYLENE GLYCOL 3350 17 G* Take 17 g by mouth once daily. SENOKOT ORAL Take by mouth once daily. NABUMETONE 500 MG TABLET Take 2 tablets by mouth twice* AMOXICILLIN 500 MG TABLET Take 500 mg by mouth four sharyn* MAGNESIUM OXIDE 400 MG TABLET Take 400 mg by mouth once nilda* HYDROCODONE-HOMATROPINE 5 MG-* Take 5 mL by mouth every 4 ho* DEXAMETHASONE 4 MG TABLET Take 1 tablet twice the day p* ONDANSETRON HCL 8 MG TABLET Take 1 tablet by mouth every * FLUTICASONE 50 MCG/ACTUATION * Use 1 [place] in each nostril o* ERGOCALCIFEROL (VITAMIN D2) 5* Take 2 capsules a week for 8 * NAPROXEN SODIUM 220 MG TABLET Take 220 mg by mouth as neede* MULTIVITAMIN TABLET Take 1 tablet by mouth once d* Problem List As Of Date 12/19/2017 Noted Resolved Calculus of gallbladder with other cholecystiti*INVALID FOR*09/22/2016 DIARRHEA SPECIFIED ORGANISM NEC [A08.8] INVALID FOR*09/22/2016 Sebaceous cyst [L72.3] INVALID FOR*09/22/2016 Carcinomatosis [C80.0] INVALID FOR*01/02/2014 Ovarian cancer (HCC) [C56.9] INVALID FOR*09/22/2016 Vaginal atrophy [N95.2] INVALID FOR*09/22/2016 Climacteric [N95.1] INVALID FOR*09/22/2016 Anorectal pain [K62.89] INVALID FOR*09/22/2016 Hemorrhoid [K64.9] INVALID FOR*09/22/2016 Anal fissure [K60.2] INVALID FOR*09/22/2016 Cancer of both ovaries (HCC) [C56.1, C56.2] INVALID FOR* Visit Notes: >> Ania Vasquez (Icer Machine) Brianna MARTELL SunDec 19, 2017 11:56 AM Status: Signed Est pt. Discuss recent lab results Ania Reed [employer] Encounter Status:Closed by OMAR GROSS DO on 12/19/17 PROGRESS Observed: 12/19/2017 Status: COMPLETED Source: BRON[place] 11:44 AM [facility] REPOSITORY HNO ID: [id number] Author: Omar Gross Service: (none) Author Type: Physician Type: Progress Notes Filed: 12/19/2017 12:39 PM Note Text: Diagnosis: 1) Ovarian cancer. HPI: The patient is a 62 year old female who presented to her PCP prior to a trip to [facility] for vaccinations. She reported that she was having lower pelvic pain and bloating as well as lower leg cramping. She had a BMP done and her LFTs were elevated so her PCP ordered an ultrasound of the liver. The ultrasound showed some mild ascites and a right lower quadrant mass. She had a CT scan of the chest/abdomen/pelvis which showed multiple pelvic masses and enlarged lymph nodes. A pelvic ultrasound was also done. Her CA125 was elevated at 2342 U/mL (CEA was WNL). She had a colonoscopy on 10/28/2012 which showed some microscopic colitis and hemorrhoids but was otherwise negative. Random biopsies were obtained and the pathology demonstrated a non-small cell carcinoma. Immunostains were positive for CK 7, CK 8, estrogen receptors. Specimen was negative for CK 20. PRIOR TREATMENT: 1) Carboplatin/paclitaxel x3 cycles. 2) 01/09/2013 - Exploratory laparotomy, total abdominal hysterectomy, bilateral salpingo- oophorectomy, omentectomy, pelvic peritoneal stripping, excision of peritoneal nodules, left pelvic lymph node biopsy, argon beam ablation of peritoneal implants with Dr. Avery, and interval debulking surgery for initial resection of ovarian cancer. 3) Received one post operative cycle carbo/Taxol 01/27/13. 4) Was hospitalized on 02/05/13 for small bowel obstruction. It was relieved with medical/conservative management. 5) Carbo with weekly Taxol x 6 cycles, completed 05/27/13. 6) [place]/carbo/cassandra x cycles for biopsy proven metastatic disease (intrahepatic metastases--Had been asymptomatic, but was noted to have an increase in CA-125. CT scan of the abdomen and pelvis was obtained to further evaluate. The study demonstrated 2 lesions within the liver that were suspicious for metastatic disease. She underwent a CT- guided biopsy. 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 7) Bevacizumab. 8) Carbo/Taxol x6 cycles completed 11/09/2016. 9) Doxil. PD following 5 cycles. Current therapy: 1) Topotecan. Presents for ongoing oncologic management. Evaluation for cycle #3. Interim history: She is tolerating topotecan well but she is having worsening shortness of breath with exertion and more generalized fatigue. She is able to walk short distances but is not capable of exertion to the point of she can't be on her feet for more than a few minutes at a time. No unusual bleeding or unexplained bruising. Appetite is normal. No abdominal pain, bloating or distention. No episodes of jaundice. No symptoms of neuropathy at this point. Medications and allergies as below personally reviewed by me today. Any changes documented in appropriate section. ROS: Constitutional: Denies episodes night sweats. Neuro: Denies KLEIN, vertigo, dizziness and imbalance. HEENT: No recent change in voice, vision or hearing. Resp: Denies cough, wheeze and hemoptysis. CVS: No exertional chest pain/pressure or tightness. No PND or orthopnea. No lower extremity swelling or edema. GI: Denies dysgeusia. Denies symptoms of stomatitis. Denies dysphagia and odynophagia. : Denies dysuria or gross hematuria. Endo: Denies hot flashes. Denies polyuria and polydipsia. Denies heat and cold intolerance. Musculoskeletal: Stable symptoms of left-sided sciatica with pain down lateral aspect of thigh. Derm: Denies rash. Denies diffuse pruritis. Heme: See above. Psych: Normal mood. PHYSICAL EXAM: Vitals: Blood pressure 131/83, pulse 106, temperature 36.7 ?C (98 ?F), weight 87.1 kg (192 lb), last menstrual period 12/10/2011. Well-appearing and in no acute distress. EYES: Sclerae are anicteric bilaterally. NECK: Supple. LYMPHATIC: There is no palpable cervical, supraclavicular or axillary adenopathy. RESPIRATORY: Inspiratory breath sounds are of normal intensity in all rodriguez. No rales, wheezes or rhonchi. CARDIOVASCULAR: Rhythm is regular. Normal intensity S1/S2. There is no gallop or murmur. ABDOMEN: The abdomen is nondistended. There is no organomegaly. No tenderness. No fluid wave. Extremities: Free of edema. SKIN: No jaundice or rash. No petechiae. NEUROLOGIC: rand maker II-XII are grossly intact. No focal motor weakness. ASSESSMENT/PLAN: 1) Ovarian cancer. KPS is 90%. Biopsy-proven recurrence. Bill Moore'[place] refractory. -She is tolerating topotecan well thus far. -CA125 trending down. -Symptomatic anemia. Hemoglobin today is 8.2 g/dL. She is short of breath with heavier exertion not short of breath at rest. We discussed the pros and cons of transfusion at this juncture we'll continue to monitor expectantly. Plan: -Cycle #3 topotecan on Sunday 12/24 pending CBC results that day. -Neupogen x10 days post cycle. -CT C/A/P prior to cycle #4 or sooner pending CA125 trend. -Continue olanzapine. -Somatic BRCA mutation analysis pending. Omar Gross DO NRBC PANEL Collected: 12/19/2017 Status: F Source: [place] 10:55 AM [facility] [place] Order Comment: CRITICAL VALUE VERIFIED. CALLED TO MALLORY AT 'S OFFICE 12/19/17 1117 [address]. RESULTS READ BACK BY SAME . TYPE CODE TESTS RESULT OUT OF RANGE REFERENCE UNITS LAB L100.4450 0-5 % Normal NRBC, FLAGGED 0.3 LAB L100.4455 0-5 10 3/uL Normal NRBC # 0.21 Performed By: #### L100.4425, L100.0100 #### [facility] [place], [address] CBC W/DIFF, AUTOMATED Collected: 12/19/2017 Status: C Source: [place] 10:55 AM [facility] [place] [facility] Order Comment: CRITICAL VALUE VERIFIED. CALLED TO MALLORY AT 'S OFFICE 12/19/17 1117 [address]. RESULTS READ BACK BY SAME . TYPE CODE TESTS RESULT OUT OF REFERENCE UNITS RANGE LAB L100.1000 4.4-11.0 K/mm3 WBC High alert 79.4 LAB L100.1200 4.2-5.4 M/mm3 Low RBC 2.66 LAB L100.1300 12.0-15.0 g/dl Low HGB 8.2 LAB L100.1400 37-47 % Low HCT 24.6 LAB L100.1500 81-99 fL MCV Normal 92.5 LAB L100.1600 27.0-32.0 pg MCH Normal 30.8 LAB L100.1700 32-36 g/gl MCHC Normal 33.3 LAB L100.1810 11.6-14.6 % RDW CV High 17.2 LAB L100.1820 35.1-43.9 fl RDW SD High 55.5 LAB L100.1900 150-450 K/mm3 Low PLT 121 LAB L100.2000 6.2-12.0 fl MPV Normal 9.3 LAB L100.3100 MANUAL DIFF CELLS COUNTED Normal 100 LAB L100.3200 47-70 % SEGS High 88 LAB L100.3300 0-5 % BAND Normal 1 LAB L100.3400 0-1 % META High 2 LAB L100.3500 0-0 MYELO High 3 LAB L100.3800 19-41 % Low LYMPH 2 LAB L100.3900 0-10 % MONOCYTE Normal 3 LAB L100.4000 0-5 % EOS Normal 1 LAB L100.4800 TOXIC GRAN Normal 1+ LAB L100.5500 ADEQ PLT EST Normal ADEQUATE LAB L100.7600 HYPOCHROMASIA Normal 2+ LAB L100.2620 2.0-7.7 X10 3/uL Absolute Neut High 70.7 LAB L100.2720 0.83-4.51 X10 3/ul Absolute Lymph Normal 1.58 LAB L100.9900 PATH REV Normal Reviewed Result Comment: Neutrophilic Leukoamoid reaction with left shift. Normocytic anemia. Mild Thrombocytopenia. Clinical correlation necessary. Jc Snyder M.D. 12/20/17 AMENDED REPORT 12/20/17 1244 PATH REV previously reported as: February jalyn Performed By: #### L100.4425, L100.0100 #### [facility] [place] [place], [address] COMPREHENSIVE METABOLIC Collected: 12/19/2017 Status: F Source: LARON BENDER 10:55 AM [facility] [place] [facility] TYPE CODE TESTS RESULT OUT OF RANGE REFERENCE UNITS LAB L501.0100 74-106 mg/dL High GLU 154 Result Comment: Fasting Glucose result greater than or equal to 126 mg/dL suggests DIABETES MELLITUS per A.D.A. criteria. Please note revised GLUCOSE reference range effective 2017. LAB L501.1000 7-18 mg/dL Normal BUN 15 LAB L501.1100 0.55-1.02 mg/dL Normal CREAT,SERUM 0.88 Result Comment: The validity of the calculated GFR AND GFRAA in patients over 70 years has not been determined. Clinical correlation is essential. LAB L501.1110 >60 mL/min Normal EST GFR 69 Result Comment: Non- GFR Calc LAB L501.1115 >60 mL/min Normal EST GFR - AA 84 Result Comment: GFR Calc LAB L501.1300 10-20 RATIO Normal BUN/CRE 17.0 LAB L501.1500 6.4-8.2 g/dL T Normal PROT 7.5 LAB L501.1800 3.2-5.0 g/dL Normal ALB 3.5 LAB L501.1950 2.2-4.2 g/dL Normal GLOB 4.0 LAB L501.2000 0.9-2.4 RATIO Normal A/G 0.9 LAB L501.2200 8.5-10.1 mg/dL CA Normal 8.7 LAB L501.4100 15-37 U/L Normal AST 20 LAB L501.4305 45-117 U/L High ALK P 286 LAB L501.4405 13-56 U/L Normal ALT 36 Result Comment: Please note revised ALT reference range effective 2017. LAB L501.4600 0.20-1.00 mg/dL Normal T BILI 0.30 LAB L501.5300 136-145 mmol/L Normal NA 141 LAB L501.5600 3.5-5.1 mmol/L Normal K 3.7 LAB L501.5900 98-107 mmol/L Normal CL 105 LAB L501.6100 21.0-32.0 mmol/L Normal CO2 26.0 LAB L501.6200 5-15 Normal GAP 10 Performed By: #### L500.4050 #### [facility] [address] [place], [place], [address] CANCER ANTIGEN 125 Collected: 12/19/2017 Status: F Source: [place] 10:55 AM [facility] [place] [facility] TYPE CODE TESTS RESULT OUT OF RANGE REFERENCE UNITS LAB L3100.5000 0.0-38.1 U/mL Normal CA125 34.6 2303 Result Comment: [place] ECLIA methodology Performed at: [facility] [address] [id number] [place] Carpenter: Carlo Bass PhD, Phone: [phone] Performed By: #### L3100.5000 #### [facility] (refer to report for specific site) refer to report for address and phone number CBC W/DIFF, AUTOMATED Collected: 12/13/2017 Status: F Source: [place] 11:36 AM [facility] [place] TYPE CODE TESTS RESULT OUT OF RANGE REFERENCE UNITS LAB L100.1000 4.4-11.0 K/mm3 Normal WBC 4.4 LAB L100.1200 4.2-5.4 M/mm3 Low RBC 2.77 LAB L100.1300 12.0-15.0 g/dl Low HGB 8.5 LAB L100.1400 37-47 % Low HCT 25.5 LAB L100.1500 81-99 fL Normal MCV 92.1 LAB L100.1600 27.0-32.0 pg Normal MCH 30.7 LAB L100.1700 32-36 g/gl Normal MCHC 33.3 LAB L100.1810 11.6-14.6 % High RDW CV 14.9 LAB L100.1820 35.1-43.9 fl High RDW SD 48.2 LAB L100.1900 150-450 K/mm3 Low PLT 143 LAB L100.2000 6.2-12.0 fl Normal MPV 10.9 LAB L100.2100 47-70 % Normal NEUT% 63.6 LAB L100.2200 19-41 % Normal LY% 27.7 LAB L100.2300 0-10 % Normal MONO% 8.1 LAB L100.2400 0-5 % Normal EO% 0.2 LAB L100.2500 0-1 % Normal BASO% 0.2 LAB L100.2550 0.0-0.9 % Normal IM GRAN % 0.200 Result Comment: IG% - Immature Granulocytes (promyelocytes, myelocytes and metamyelocytes) > 1% indicates that a LEFT SHIFT is Present. LAB L100.2620 2.0-7.7 X10 3/uL Normal Absolute Neut 2.8 LAB L100.2720 0.83-4.51 X10 3/ul Normal Absolute Lymph 1.23 LAB L100.4600 % Normal ATYPICAL LYMPH RARE LAB L100.5500 ADEQ Normal PLT EST ADEQUATE LAB L100.5650 Normal PLT MORPH LARGE Result Comment: RARE LAB L100.7600 Normal HYPOCHROMASIA 1+ Performed By: #### L100.0100 #### [facility] [address] [place], [address] CTA CHEST W/WO Observed: 12/06/2017 Status: F Source: SPARTA CONTRAST 3:51 PM [facility] [place] [facility] Imaging Services [address] [place] [address] CTA Chest W/WO Contrast MR#: [id number] Acct: [id number] Name: IVA CUEVA Rep #: [id number] : 1955 F 62 From: Maura Ordaz MD PCP: Peter Deras MD Status: REG CLI Study: CTA Chest W/WO Contrast Date of Exam: 12/06/17 Exam# [id number] Ordering Dr: Omar Gross DO STUDY: CTA CHEST REASON FOR EXAM: Female, 62 years old. Increasing shortness of breath. RADIATION DOSAGE (If Supplied By Facility): CTDIvol = ( 18.58 ) mGy, DLP = ( 504.8 ) mGycm TECHNIQUE: The examination was performed with the intravenous administration of 100 ml of Isovue 370 contrast material. Post-processing of the angiographic images was performed, with multiplanar reformation and 3D reconstruction. Individualized dose optimization techniques were used for this CT. COMPARISON: November 06, 2017. FINDINGS: Normal enhancement of the main pulmonary artery and right and left pulmonary arteries. Normal enhancement of the bilateral peripheral pulmonary arteries. There is no demonstrated pulmonary embolism. There is atherosclerotic calcification of the aortic arch . There is no demonstrated aortic dissection. There are calcifications of the coronary arteries. Normal mediastinum. Normal hilar regions. Normal visualized trachea and bronchi. The lungs are well expanded. Normal pulmonary parenchyma. Normal pleura. There is a stable peripherally calcified low-attenuation focus within the medial right breast. There is a left-sided portacatheter with its tip within the superior vena cava. There are degenerative changes of thoracic spine. Normal visualized upper abdomen. CT/CTA Chest W/WO Contrast IMPRESSION: No demonstrated pulmonary embolism or arterial dissection. Atherosclerosis. Electronically Signed: Maura Ordaz MD at 16:35 EST Tel , Service support , CC: Peter Deras MD; Omar Gross DO Help Desk Representative: Signed CBC-COMPLETE BLOOD CNT Collected: 12/06/2017 Status: F Source: [place] NO DIFF 1:50 PM [facility] [place] [facility] TYPE CODE TESTS RESULT OUT OF RANGE REFERENCE UNITS LAB L100.1000 4.4-11.0 K/mm3 Low WBC 3.4 LAB L100.1200 4.2-5.4 M/mm3 Low RBC 3.14 LAB L100.1300 12.0-15.0 g/dl Low HGB 9.6 LAB L100.1400 37-47 % Low HCT 28.5 LAB L100.1500 81-99 fL Normal MCV 90.8 LAB L100.1600 27.0-32.0 pg Normal MCH 30.6 LAB L100.1700 32-36 g/gl Normal MCHC 33.7 LAB L100.1810 11.6-14.6 % High RDW CV 15.2 LAB L100.1820 35.1-43.9 fl High RDW SD 48.2 LAB L100.1900 150-450 K/mm3 Normal PLT 440 LAB L100.2000 6.2-12.0 fl Normal MPV 9.6 Performed By: #### L100.0500 #### [facility] [address] [place], [address] [facility] Collected: 12/05/2017 Status: F Source: BRONX 8:04 PM [facility] REPOSITORY TYPE CODE TESTS RESULT OUT OF REFERENCE UNITS RANGE LAB NAME1 TUMOR Test BRACANALYSIS LAB RESU1 View results Test Results in Scanned Documents link when available. Performed By: #### [id number] #### [facility] [address] [place], [place] [address] CBC W/DIFF, AUTOMATED Collected: 12/03/2017 Status: C Source: [place] 12:15 PM [facility] [place] [facility] TYPE CODE TESTS RESULT OUT OF RANGE REFERENCE UNITS LAB L100.1000 4.4-11.0 K/mm3 Normal WBC 6.4 LAB L100.1200 4.2-5.4 M/mm3 Low RBC 3.19 LAB L100.1300 12.0-15.0 g/dl Low HGB 9.5 LAB L100.1400 37-47 % Low HCT 28.8 LAB L100.1500 81-99 fL Normal MCV 90.3 LAB L100.1600 27.0-32.0 pg Normal MCH 29.8 LAB L100.1700 32-36 g/gl Normal MCHC 33.0 LAB L100.1810 11.6-14.6 % High RDW CV 15.5 LAB L100.1820 35.1-43.9 fl High RDW SD 49.6 LAB L100.1900 150-450 K/mm3 Normal PLT 285 LAB L100.2000 6.2-12.0 fl Normal MPV 10.0 LAB L100.3100 MANUAL DIFF Normal CELLS COUNTED 100 LAB L100.3200 47-70 % Low 41 SEGS LAB L100.3300 0-5 % High 14 BAND LAB L100.3400 0-1 % High 2 META LAB L100.3800 19-41 % 36 Normal LYMPH LAB L100.3900 0-10 % 4 Normal MONOCYTE LAB L100.4000 0-5 % 3 Normal EOS LAB L100.4600 % Normal ATYPICAL LYMPH RARE LAB L100.5500 ADEQ Normal PLT EST ADEQUATE LAB L100.7000 NORM C AND C NORMAL N Normal RED CELL MORPH CHROM LAB L100.7300 Normal ANISO RARE LAB L100.9900 Normal PATH REV Reviewed Result Comment: Neutrophilic left shift. Normocytic anemia. Clinical correlation necessary. Jc Snyder M.D. 12/04/17 AMENDED REPORT 12/04/17 1450 PATH REV previously reported as: February jalyn LAB L100.2620 2.0-7.7 X10 3/uL Normal Absolute Neut 3.5 LAB L100.2720 0.83-4.51 X10 3/ul Normal Absolute Lymph 2.30 Performed By: #### L100.0100 #### [facility] [address] [place], [address] PROGRESS Observed: 11/28/2017 Status: COMPLETED Source: BRONX 5:41 PM [facility] [place] REPOSITORY HNO ID: [id number] Author: Omar Gross Service: (none) Author Type: Physician Type: Progress Notes Filed: 11/28/2017 5:45 PM Note Text: Diagnosis: 1) Ovarian cancer. HPI: The patient is a 62 year old female who presented to her PCP prior to a trip to [facility] for vaccinations. She reported that she was having lower pelvic pain and bloating as well as lower leg cramping. She had a BMP done and her LFTs were elevated so her PCP ordered an ultrasound of the liver. The ultrasound showed some mild ascites and a right lower quadrant mass. She had a CT scan of the chest/abdomen/pelvis which showed multiple pelvic masses and enlarged lymph nodes. A pelvic ultrasound was also done. Her CA125 was elevated at 2342 U/mL (CEA was WNL). She had a colonoscopy on 10/28/2012 which showed some microscopic colitis and hemorrhoids but was otherwise negative. Random biopsies were obtained and the pathology demonstrated a non-small cell carcinoma. Immunostains were positive for CK 7, CK 8, estrogen receptors. Specimen was negative for CK 20. PRIOR TREATMENT: 1) Carboplatin/paclitaxel x3 cycles. 2) 01/09/2013 - Exploratory laparotomy, total abdominal hysterectomy, bilateral salpingo- oophorectomy, omentectomy, pelvic peritoneal stripping, excision of peritoneal nodules, left pelvic lymph node biopsy, argon beam ablation of peritoneal implants with Dr. Avery, and interval debulking surgery for initial resection of ovarian cancer. 3) Received one post operative cycle carbo/Taxol 01/27/13. 4) Was hospitalized on 02/05/13 for small bowel obstruction. It was relieved with medical/conservative management. 5) Carbo with weekly Taxol x 6 cycles, completed 05/27/13. 6) [place]/carbo/cassandra x cycles for biopsy proven metastatic disease (intrahepatic metastases--Had been asymptomatic, but was noted to have an increase in CA-125. CT scan of the abdomen and pelvis was obtained to further evaluate. The study demonstrated 2 lesions within the liver that were suspicious for metastatic disease. She underwent a CT- guided biopsy. 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 7) Bevacizumab. 8) Carbo/Taxol x6 cycles completed 11/09/2016. 9) Doxil. PD following 5 cycles. Current therapy: 1) Topotecan. Presents for ongoing oncologic management. Evaluation for cycle #2. Interim history: Received first cycle of topotecan 11/12 through 11/16. She tolerated very well. Olanzapine worked very well to control nausea. She didn't lose her appetite. She had moderate fatigue but no exacerbation of neuropathy or other acute side effect. Fatigue is recovering. PMH, medications and allergies as below personally reviewed by me today. Any changes documented in appropriate section. ROS: Constitutional: Denies episodes night sweats. Neuro: Denies KLEIN, vertigo, dizziness and imbalance. HEENT: No recent change in voice, vision or hearing. Resp: Denies cough, wheeze and hemoptysis. CVS: No exertional chest pain/pressure or tightness. No PND or orthopnea. No lower extremity swelling or edema. GI: Denies dysgeusia. Denies symptoms of stomatitis. Denies dysphagia and odynophagia. : Denies dysuria or gross hematuria. Endo: Denies hot flashes. Denies polyuria and polydipsia. Denies heat and cold intolerance. Musculoskeletal: Stable symptoms of left-sided sciatica with pain down lateral aspect of thigh. Derm: Denies rash. Denies diffuse pruritis. Heme: Denies unusual bleeding and unexplained bruising. Psych: Normal mood. PHYSICAL EXAM: Vitals: Blood pressure 122/66, pulse 99, temperature 36.7 ?C (98 ?F), weight 87.3 kg (192 lb 8 oz), last menstrual period 12/10/2011. Well-appearing and in no acute distress. EYES: Sclerae are anicteric bilaterally. NECK: Supple. LYMPHATIC: There is no palpable cervical, supraclavicular or axillary adenopathy. RESPIRATORY: Inspiratory breath sounds are of normal intensity in all rodriguez. No rales, wheezes or rhonchi. CARDIOVASCULAR: Rhythm is regular. Normal intensity S1/S2. There is no gallop or murmur. ABDOMEN: The abdomen is nondistended. There is no organomegaly. No tenderness. No fluid wave. Extremities: Free of edema. SKIN: No jaundice or rash. No petechiae. NEUROLOGIC: rand maker II-XII are grossly intact. No focal motor weakness. ASSESSMENT/PLAN: 1) Ovarian cancer. KPS is 90%. Biopsy-proven recurrence. Bill Moore'S [place] refractory. -She is tolerating topotecan well thus far. -Previous discussed rationale for testing biopsy specimen from 2014 for somatic BRCA mutation. [facility] didn't have enough tissue. Plan: -Cycle #2 topotecan on Sunday 12/03 pending CBC results that day. -Neupogen x10 days post cycle. -CT C/A/P prior to cycle #4 or sooner pending CA125 trend. -Continue olanzapine. -Somatic mutation of BRCA requested from past specimen in 2012 for [facility]. Omar Gross DO CNOVSP Observed: 11/28/2017 Status: COMPLETED Source: BRONX 4:00 PM [facility] [facility] REPOSITORY Visit (SP) Office (PRISCILLA) IVA CUEVA ([id number]) 1955 F Date Time Provider Department 11/28/17 4:00 PM OMAR GROSS During your visit today, we recorded the following information about you: Temperature Pulse Blood pressure Weight 98 degrees 99/minute 122/66 87.3 kg Jane James LPN 11/28/2017 4:37 PM Signed Est patient. Labs today at [facility]. Jane Gross DO 11/28/2017 5:45 PM Signed Diagnosis: 1) Ovarian cancer. HPI: The patient is a 62 year old female who presented to her PCP prior to a trip to [facility] for vaccinations. She reported that she was having lower pelvic pain and bloating as well as lower leg cramping. She had a BMP done and her LFTs were elevated so her PCP ordered an ultrasound of the liver. The ultrasound showed some mild ascites and a right lower quadrant mass. She had a CT scan of the chest/abdomen/pelvis which showed multiple pelvic masses and enlarged lymph nodes. A pelvic ultrasound was also done. Her CA125 was elevated at 2342 U/mL (CEA was WNL). She had a colonoscopy on 10/28/2012 which showed some microscopic colitis and hemorrhoids but was otherwise negative. Random biopsies were obtained and the pathology demonstrated a non- small cell carcinoma. Immunostains were positive for CK 7, CK 8, estrogen receptors. Specimen was negative for CK 20. PRIOR TREATMENT: 1) Carboplatin/paclitaxel x3 cycles. 2) 01/09/2013 - Exploratory laparotomy, total abdominal hysterectomy, bilateral salpingo- oophorectomy, omentectomy, pelvic peritoneal stripping, excision of peritoneal nodules, left pelvic lymph node biopsy, argon beam ablation of peritoneal implants with Dr. Avery, and interval debulking surgery for initial resection of ovarian cancer. 3) Received one post operative cycle carbo/Taxol 01/27/13. 4) Was hospitalized on 02/05/13 for small bowel obstruction. It was relieved with medical/conservative management. 5) Carbo with weekly Taxol x 6 cycles, completed 05/27/13. 6) [place]/carbo/cassandra x cycles for biopsy proven metastatic disease (intrahepatic metastases--Had been asymptomatic, but was noted to have an increase in CA-125. CT scan of the abdomen and pelvis was obtained to further evaluate. The study demonstrated 2 lesions within the liver that were suspicious for metastatic disease. She underwent a CT-guided biopsy. 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 7) Bevacizumab. 8) Carbo/Taxol x6 cycles completed 11/09/2016. 9) Doxil. PD following 5 cycles. Current therapy: 1) Topotecan. Presents for ongoing oncologic management. Evaluation for cycle #2. Interim history: Received first cycle of topotecan 11/12 through 11/16. She tolerated very well. Olanzapine worked very well to control nausea. She didn't lose her appetite. She had moderate fatigue but no exacerbation of neuropathy or other acute side effect. Fatigue is recovering. PMH, medications and allergies as below personally reviewed by me today. Any changes documented in appropriate section. ROS: Constitutional: Denies episodes night sweats. Neuro: Denies KLEIN, vertigo, dizziness and imbalance. HEENT: No recent change in voice, vision or hearing. Resp: Denies cough, wheeze and hemoptysis. CVS: No exertional chest pain/pressure or tightness. No PND or orthopnea. No lower extremity swelling or edema. GI: Denies dysgeusia. Denies symptoms of stomatitis. Denies dysphagia and odynophagia. : Denies dysuria or gross hematuria. Endo: Denies hot flashes. Denies polyuria and polydipsia. Denies heat and cold intolerance. Musculoskeletal: Stable symptoms of left-sided sciatica with pain down lateral aspect of thigh. Derm: Denies rash. Denies diffuse pruritis. Heme: Denies unusual bleeding and unexplained bruising. Psych: Normal mood. PHYSICAL EXAM: Vitals: Blood pressure 122/66, pulse 99, temperature 36.7 ?C (98 ?F), weight 87.3 kg (192 lb 8 oz), last menstrual period 12/10/2011. Well-appearing and in no acute distress. EYES: Sclerae are anicteric bilaterally. NECK: Supple. LYMPHATIC: There is no palpable cervical, supraclavicular or axillary adenopathy. RESPIRATORY: Inspiratory breath sounds are of normal intensity in all rodriguez. No rales, wheezes or rhonchi. CARDIOVASCULAR: Rhythm is regular. Normal intensity S1/S2. There is no gallop or murmur. ABDOMEN: The abdomen is nondistended. There is no organomegaly. No tenderness. No fluid wave. Extremities: Free of edema. SKIN: No jaundice or rash. No petechiae. NEUROLOGIC: rand maker II-XII are grossly intact. No focal motor weakness. ASSESSMENT/PLAN: 1) Ovarian cancer. KPS is 90%. Biopsy-proven recurrence. [place] refractory. -She is tolerating topotecan well thus far. -Previous discussed rationale for testing biopsy specimen from 2014 for somatic BRCA mutation. [facility] didn't have enough tissue. Plan: -Cycle #2 topotecan on Sunday 12/03 pending CBC results that day. -Neupogen x10 days post cycle. -CT C/A/P prior to cycle #4 or sooner pending CA125 trend. -Continue olanzapine. -Somatic mutation of BRCA requested from past specimen in 2012 for [facility]. Omar Gross DO Referring Provider: OMAR GROSS [[id number]] Allergies As of Date: 11/28/2017 Noted Allergy Reaction CODEINE 05/03/2007 5 - Intolerance PERCOCET (OXYCODONE-ACETAMINOPHEN)06/29/2015 9 - Itching Seasonal [Other] 06/05/2007 ULTRAM (TRAMADOL HCL) 01/08/2013 9 - Itching VICODIN (HYDROCODONE-ACETAMINOPHE*08/26/2007 9 - Itching Date Reviewed: 11/28/2017 Reviewed by: Jane James LPN - Fully Assessed Reason for Visit: Established Patient [175] Primary Visit Diagnosis:Cancer of both ovaries (HCC) [C56.1, C56.2] Follow-up and Disposition History Recorded Prescriptions as of 11/28/2017 Sig: NABUMETONE 500 MG TABLET Take 2 tablets by mouth twice* LIDOCAINE-PRILOCAINE 2.5 %-2.* Apply 1 application to affect* LISINOPRIL 20 MG TABLET Take 1 tablet by mouth once d* OLANZAPINE 10 MG TABLET Take 1 tablet by mouth daily * MELATONIN 10 MG TABLET Take 1 tablet by mouth at bed* CYCLOBENZAPRINE 10 MG TABLET Take 1 tablet by mouth every * ZOLPIDEM 5 MG TABLET Take 1 tablet by mouth at bed* PROMETHAZINE 25 MG TABLET Take 1 tablet by mouth every * OMEPRAZOLE 40 MG CAPSULE,BASSEM* Take 1 capsule by mouth once * ONDANSETRON HCL 8 MG TABLET Take 1 tablet by mouth every * MORPHINE CONCENTRATE 100 MG/5* Take 0.5 mL by mouth every 4 * GABAPENTIN 300 MG CAPSULE Take 3 capsules by mouth thre* LORATADINE 10 MG TABLET Take 10 mg by mouth once debora* DOCUSATE SODIUM 100 MG CAPSULE Take 100 mg by mouth twice da* POLYETHYLENE GLYCOL 3350 17 G* Take 17 g by mouth once daily. NAPROXEN SODIUM 220 MG TABLET Take 220 mg by mouth as neede* SENOKOT ORAL Take by mouth once daily. AMOXICILLIN 500 MG TABLET Take 500 mg by mouth four sharyn* MAGNESIUM OXIDE 400 MG TABLET Take 400 mg by mouth once nilda* HYDROCODONE-HOMATROPINE 5 MG-* Take 5 mL by mouth every 4 ho* DEXAMETHASONE 4 MG TABLET Take 1 tablet twice the day p* ONDANSETRON HCL 8 MG TABLET Take 1 tablet by mouth every * FLUTICASONE 50 MCG/ACTUATION * Use 1 Gulliver in each nostril o* ERGOCALCIFEROL (VITAMIN D2) 5* Take 2 capsules a week for 8 * MULTIVITAMIN TABLET Take 1 tablet by mouth once d* Medication notes this encounter AMOXICILLIN 500 MG TABLET >> Jane James LPN 11/28/2017 4:05 PM >> JANE JAMES LPN SunNov 28, 2017 4:05 PM completed MAGNESIUM OXIDE 400 MG TABLET >> Jane James LPN 11/28/2017 4:06 PM >> JANE JAMES LPN SunNov 28, 2017 4:06 PM Not taking Problem List As Of Date 11/28/2017 Noted Resolved Calculus of gallbladder with other cholecystiti*INVALID FOR*09/22/2016 DIARRHEA SPECIFIED ORGANISM NEC [A08.8] INVALID FOR*09/22/2016 Sebaceous cyst [L72.3] INVALID FOR*09/22/2016 Carcinomatosis [C80.0] INVALID FOR*01/02/2014 Ovarian cancer (HCC) [C56.9] INVALID FOR*09/22/2016 Vaginal atrophy [N95.2] INVALID FOR*09/22/2016 Climacteric [N95.1] INVALID FOR*09/22/2016 Anorectal pain [K62.89] INVALID FOR*09/22/2016 Hemorrhoid [K64.9] INVALID FOR*09/22/2016 Anal fissure [K60.2] INVALID FOR*09/22/2016 Cancer of both ovaries (HCC) [C56.1, C56.2] INVALID FOR* Visit Notes: >> Jane James LPN SunNov 28, 2017 4:07 PM Status: Signed Est patient. Labs today at [facility]. Jane James LPN Encounter Status:Closed by OMAR GROSS DO on 11/28/17 CBC W/DIFF, AUTOMATED Collected: 11/28/2017 Status: C Source: [place] 10:31 AM [facility] [place] CODE TESTS RESULT OUT OF RANGE REFERENCE UNITS LAB L100.1000 4.4-11.0 K/mm3 High WBC 25.9 LAB L100.1200 4.2-5.4 M/mm3 Low RBC 3.30 LAB L100.1300 12.0-15.0 g/dl Low HGB 9.8 LAB L100.1400 37-47 % Low HCT 29.6 LAB L100.1500 81-99 fL Normal MCV 89.7 LAB L100.1600 27.0-32.0 pg Normal MCH 29.7 LAB L100.1700 32-36 g/gl Normal MCHC 33.1 LAB L100.1810 11.6-14.6 % High RDW CV 15.2 LAB L100.1820 35.1-43.9 fl High RDW SD 49.6 LAB L100.1900 150-450 K/mm3 Low 72 PLT LAB L100.2000 6.2-12.0 fl Normal MPV 10.5 LAB L100.3100 MANUAL DIFF Normal CELLS COUNTED 100 LAB L100.3200 47-70 % High 81 SEGS LAB L100.3600 0-0 High 2 PROMYELO LAB L100.3800 19-41 % Low 12 LYMPH LAB L100.3900 0-10 % 4 Normal MONOCYTE LAB L100.4000 0-5 % 1 Normal EOS LAB L100.5500 ADEQ Normal PLT EST MOD DEC LAB L100.7000 NORM C AND C NORMAL Normal RED CELL MORPH NORM C+C LAB L100.2620 2.0-7.7 X10 3/uL High Absolute Neut 21.0 LAB L100.2720 0.83-4.51 X10 3/ul Normal Absolute Lymph 3.11 LAB L100.9900 Normal PATH REV Reviewed Result Comment: Neutrophilic leukocytosis with left shift. Normocytic anemia. Thrombocytopenia. Clinical correlation necessary. Jc Snyder M.D. 11/29/17 AMENDED REPORT 11/29/17 1312 PATH REV previously reported as: February jalyn Performed By: #### L100.0100 #### [facility] [address] [place], [address] COMPREHENSIVE METABOLIC Collected: 11/28/2017 Status: F Source: [facility] 10:31 AM [facility] [place] TYPE CODE TESTS RESULT OUT OF RANGE REFERENCE UNITS LAB L501.0100 70-110 mg/dL High GLU 111 Result Comment: Fasting Glucose result from 110 to <126 mg/dL suggests IMPAIRED HOMEOSTASIS per A.D.A. criteria. LAB L501.1000 7-18 mg/dL Normal BUN 15 LAB L501.1100 0.55-1.02 mg/dL Normal CREAT,SERUM 0.84 Result Comment: The validity of the calculated GFR AND GFRAA in patients over 70 years has not been determined. Clinical correlation is essential. LAB L501.1110 >60 mL/min Normal EST GFR 74 Result Comment: Non- GFR Calc LAB L501.1115 >60 mL/min Normal EST GFR - AA 89 Result Comment: GFR Calc LAB L501.1300 10-20 RATIO Normal BUN/CRE 17.9 LAB L501.1500 6.4-8.2 g/dL T Normal PROT 7.2 LAB L501.1800 3.2-5.0 g/dL Normal ALB 3.4 LAB L501.1950 2.2-4.2 g/dL Normal GLOB 3.8 LAB L501.2000 0.9-2.4 RATIO Normal A/G 0.9 LAB L501.2200 8.5-10.1 mg/dL CA Normal 8.5 LAB L501.4100 15-37 U/L High AST 51 LAB L501.4305 45-117 U/L High ALK P 257 LAB L501.4405 13-56 U/L High ALT 95 Result Comment: Please note revised ALT reference range effective 2017. LAB L501.4600 0.20-1.00 mg/dL Normal T BILI 0.40 LAB L501.5300 136-145 mmol/L Normal NA 140 LAB L501.5600 3.5-5.1 mmol/L Normal K 4.0 LAB L501.5900 98-107 mmol/L Normal CL 107 LAB L501.6100 21.0-32.0 mmol/L Normal CO2 26.0 LAB L501.6200 5-15 Normal GAP 7 Performed By: #### L500.4050 #### [facility] [address] [place], [address] CANCER ANTIGEN 125 Collected: 11/28/2017 Status: F Source: [place] 10:31 AM [facility] [place] TYPE CODE TESTS RESULT OUT OF RANGE REFERENCE UNITS LAB L3100.5000 0.0-38.1 U/mL High CA125 92.1 2303 Result Comment: Meghna ECLIA methodology Performed at: - [facility] [id number] [place] Carpenter: Carlo Bass PhD, Phone: [phone] Performed By: #### L3100.1657 #### [facility] (refer to report for specific site) refer to report for address and phone number OBSOLETE Observed: 11/26/2017 Status: COMPLETED Source: [place] 12:00 AM [facility] REPOSITORY Refill (HEMAWS) IVA CUEVA ([id number]) 1955 F Date Time Provider Department 11/26/17 OMAR GROSS During your visit today, we recorded the following information about you: Allergies As of Date: 11/26/2017 Noted Allergy Reaction CODEINE 05/03/2007 5 - Intolerance PERCOCET (OXYCODONE-ACETAMINOPHEN)06/29/2015 9 - Itching Seasonal [Other] 06/05/2007 ULTRAM (TRAMADOL HCL) 01/08/2013 9 - Itching VICODIN (HYDROCODONE-ACETAMINOPHE*08/26/2007 9 - Itching Date Reviewed: 11/13/2017 Reviewed by: Kary Napoles - Fully Assessed Reason for Visit: Refill Request [94] Order(s):nabumetone (RELAFEN) 500 mg tabletTake 2 tablets by mouth twice daily as needed.Disp: 360 tabletRfl: 0 Prescriptions as of 11/26/2017 Sig: NABUMETONE 500 MG TABLET Take 2 tablets by mouth twice* LIDOCAINE-PRILOCAINE 2.5 %-2.* Apply 1 application to affect* AMOXICILLIN 500 MG TABLET Take 500 mg by mouth four sharyn* LISINOPRIL 20 MG TABLET Take 1 tablet by mouth once d* OLANZAPINE 10 MG TABLET Take 1 tablet by mouth daily * MELATONIN 10 MG TABLET Take 1 tablet by mouth at bed* CYCLOBENZAPRINE 10 MG TABLET Take 1 tablet by mouth every * ZOLPIDEM 5 MG TABLET Take 1 tablet by mouth at bed* PROMETHAZINE 25 MG TABLET Take 1 tablet by mouth every * OMEPRAZOLE 40 MG CAPSULE,BASSEM* Take 1 capsule by mouth once * MAGNESIUM OXIDE 400 MG TABLET Take 400 mg by mouth once nilda* ONDANSETRON HCL 8 MG TABLET Take 1 tablet by mouth every * MORPHINE CONCENTRATE 100 MG/5* Take 0.5 mL by mouth every 4 * GABAPENTIN 300 MG CAPSULE Take 3 capsules by mouth thre* HYDROCODONE-HOMATROPINE 5 MG-* Take 5 mL by mouth every 4 ho* DEXAMETHASONE 4 MG TABLET Take 1 tablet twice the day p* ONDANSETRON HCL 8 MG TABLET Take 1 tablet by mouth every * FLUTICASONE 50 MCG/ACTUATION * Use 1 Gulliver in each nostril o* ERGOCALCIFEROL (VITAMIN D2) 5* Take 2 capsules a week for 8 * LORATADINE 10 MG TABLET Take 10 mg by mouth once debora* DOCUSATE SODIUM 100 MG CAPSULE Take 100 mg by mouth twice da* POLYETHYLENE GLYCOL 3350 17 G* Take 17 g by mouth once daily. NAPROXEN SODIUM 220 MG TABLET Take 220 mg by mouth as neede* SENOKOT ORAL Take by mouth once daily. MULTIVITAMIN TABLET Take 1 tablet by mouth once d* Problem List As Of Date 11/26/2017 Noted Resolved Calculus of gallbladder with other cholecystiti*INVALID FOR*09/22/2016 DIARRHEA SPECIFIED ORGANISM NEC [A08.8] INVALID FOR*09/22/2016 Sebaceous cyst [L72.3] INVALID FOR*09/22/2016 Carcinomatosis [C80.0] INVALID FOR*01/02/2014 Ovarian cancer (HCC) [C56.9] INVALID FOR*09/22/2016 Vaginal atrophy [N95.2] INVALID FOR*09/22/2016 Climacteric [N95.1] INVALID FOR*09/22/2016 Anorectal pain [K62.89] INVALID FOR*09/22/2016 Hemorrhoid [K64.9] INVALID FOR*09/22/2016 Anal fissure [K60.2] INVALID FOR*09/22/2016 Cancer of both ovaries (HCC) [C56.1, C56.2] INVALID FOR* Prescriptions ordered this encounter Disp Refills Start End NABUMETONE 500 MG TABLET 360 * 0 11/26/2017 Sig: Take 2 tablets by mouth twice daily as needed. Medications Discontinued During This Encounter nabumetone (RELAFEN) 500 mg tablet 360 * 3 10/09/2016 11/26/2017 Route: ORAL Sig: Take 2 tablets by mouth twice daily as needed. Disc: Reason for discontinue is not on file. Encounter Status:Closed by OMAR GROSS DO on 11/26/17 PROGRESS Observed: 11/15/2017 Status: COMPLETED Source: [place] 10:00 AM [facility] REPOSITORY HNO ID: [id number] Author: Shira Carolina (Sw) Service: (none) Author Type: Game Room Attendant Type: Progress Notes Filed: 11/15/2017 10:01 AM Note Text: SOCIAL WORK FOLLOW UP NOTE: [facility] Date of service: November 15, 2017 Iva Cueva is being seen for a follow up social work visit. Today's visit includes: patient not present TOPICS ADDRESSED: Disability; CATHERINE faxed completed paperwork along with medication list to [facility]. PLAN: Continue follow up as needed F/U APPOINTMENT: DOUGLAS Alatorre PROGRESS Observed: 11/14/2017 Status: COMPLETED Source: [place] 8:48 AM [facility] REPOSITORY HNO ID: [id number] Author: Shira Carolina (Sw) Service: (none) Author Type: Game Room Attendant Type: Progress Notes Filed: 11/14/2017 8:50 AM Note Text: Social Work Problem Referral Note INFORMATION/REFERRAL : Iva Cueva 62 year old female was referred by [facility] Social Work for the following reason(s): disability planning PERSONS INTERVIEWED: nurse INTERVENTION: Team Meeting Affect/Mood: The patient is noted as patient not present IDENTIFIED PROBLEMS/NEEDS: Disability Intervention/Referral to be provided:Arrangements made for continuity of care IMPRESSION/PLAN: CATHERINE received STD paperwork from nurse. Nurse states that per conversation patient had with doctor, her start date for disability will be 11/13/17. CATHERINE completed paperwork and provided to doctor to finish/review/sign. CATHERINE will fax to [employer] and scan to patient's chart when completed. F/U APPOINTMENT: DOUGLAS AlatorreW Observed: 11/14/2017 Status: COMPLETED Source: [place] 12:00 AM [facility] REPOSITORY Social Work (HEMAWS) YVROSEIVA IGNACIO ([id number]) 1955 F Date Time Provider Department 11/14/17 SHIRA CAROLINA) PRISCILLA During your visit today, we recorded the following information about you: DOUGLAS Medina 11/14/2017 8:50 AM Signed Social Work Problem Referral Note INFORMATION/REFERRAL : Iva Cueva 62 year old female was referred by [facility] Social Work for the following reason(s): disability planning PERSONS INTERVIEWED: nurse INTERVENTION: Team Meeting Affect/Mood: The patient is noted as patient not present IDENTIFIED PROBLEMS/NEEDS: Disability Intervention/Referral to be provided:Arrangements made for continuity of care IMPRESSION/PLAN: CATHERINE received STD paperwork from nurse. Nurse states that per conversation patient had with doctor, her start date for disability will be 11/13/17. CATHERINE completed paperwork and provided to doctor to finish/review/sign. CATHERINE will fax to [facility] and scan to patient's chart when completed. F/U APPOINTMENT: DOUGLAS Alatorre LISW 11/15/2017 10:01 AM Signed SOCIAL WORK FOLLOW UP NOTE: [facility] Date of service: November 15, 2017 Iva Cottrell Anay is being seen for a follow up social work visit. Today's visit includes: patient not present TOPICS ADDRESSED: Disability; CATHERINE faxed completed paperwork along with medication list to [facility]. PLAN: Continue follow up as needed F/U APPOINTMENT: DOUGLAS Alatorre Allergies As of Date: 11/14/2017 Noted Allergy Reaction CODEINE 05/03/2007 5 - Intolerance PERCOCET (OXYCODONE-ACETAMINOPHEN)06/29/2015 9 - Itching Seasonal [Other] 06/05/2007 ULTRAM (TRAMADOL HCL) 01/08/2013 9 - Itching VICODIN (HYDROCODONE-ACETAMINOPHE*08/26/2007 9 - Itching Date Reviewed: 11/13/2017 Reviewed by: Kary Napoles - Fully Assessed Reason for Visit: Social Work Services [507] Cmt: Short Term Disability paperwork [employer] Prescriptions as of 11/14/2017 Sig: AMOXICILLIN 500 MG TABLET Take 500 mg by mouth four sharyn* FILGRASTIM 480 MCG/1.6 ML INJ* Inject 1.6 mL subcutaneously * LISINOPRIL 20 MG TABLET Take 1 tablet by mouth once d* OLANZAPINE 10 MG TABLET Take 1 tablet by mouth daily * MELATONIN 10 MG TABLET Take 1 tablet by mouth at bed* CYCLOBENZAPRINE 10 MG TABLET Take 1 tablet by mouth every * ZOLPIDEM 5 MG TABLET Take 1 tablet by mouth at bed* PROMETHAZINE 25 MG TABLET Take 1 tablet by mouth every * OMEPRAZOLE 40 MG CAPSULE,BASSEM* Take 1 capsule by mouth once * MAGNESIUM OXIDE 400 MG TABLET Take 400 mg by mouth once nilda* ONDANSETRON HCL 8 MG TABLET Take 1 tablet by mouth every * MORPHINE CONCENTRATE 100 MG/5* Take 0.5 mL by mouth every 4 * GABAPENTIN 300 MG CAPSULE Take 3 capsules by mouth thre* NABUMETONE 500 MG TABLET Take 2 tablets by mouth twice* HYDROCODONE-HOMATROPINE 5 MG-* Take 5 mL by mouth every 4 ho* DEXAMETHASONE 4 MG TABLET Take 1 tablet twice the day p* ONDANSETRON HCL 8 MG TABLET Take 1 tablet by mouth every * FLUTICASONE 50 MCG/ACTUATION * Use 1 Gulliver in each nostril o* ERGOCALCIFEROL (VITAMIN D2) 5* Take 2 capsules a week for 8 * LORATADINE 10 MG TABLET Take 10 mg by mouth once debora* DOCUSATE SODIUM 100 MG CAPSULE Take 100 mg by mouth twice da* POLYETHYLENE GLYCOL 3350 17 G* Take 17 g by mouth once daily. NAPROXEN SODIUM 220 MG TABLET Take 220 mg by mouth as neede* SENOKOT ORAL Take by mouth once daily. MULTIVITAMIN TABLET Take 1 tablet by mouth once d* Problem List As Of Date 11/14/2017 Noted Resolved Calculus of gallbladder with other cholecystiti*INVALID FOR*09/22/2016 DIARRHEA SPECIFIED ORGANISM NEC [A08.8] INVALID FOR*09/22/2016 Sebaceous cyst [L72.3] INVALID FOR*09/22/2016 Carcinomatosis [C80.0] INVALID FOR*01/02/2014 Ovarian cancer (HCC) [C56.9] INVALID FOR*09/22/2016 Vaginal atrophy [N95.2] INVALID FOR*09/22/2016 Climacteric [N95.1] INVALID FOR*09/22/2016 Anorectal pain [K62.89] INVALID FOR*09/22/2016 Hemorrhoid [K64.9] INVALID FOR*09/22/2016 Anal fissure [K60.2] INVALID FOR*09/22/2016 Cancer of both ovaries (HCC) [C56.1, C56.2] INVALID FOR* Encounter Status:Closed by SHIRA CAROLINA on 11/14/17 PROGRESS Observed: 11/13/2017 Status: COMPLETED Source: [place] 4:09 PM [facility] REPOSITORY HNO ID: [id number] Author: Omar Gross Service: (none) Author Type: Physician Type: Progress Notes Filed: 11/14/2017 8:48 AM Note Text: Diagnosis: 1) Ovarian cancer. HPI: The patient is a 62 year old female who presented to her PCP prior to a trip to [facility] for vaccinations. She reported that she was having lower pelvic pain and bloating as well as lower leg cramping. She had a BMP done and her LFTs were elevated so her PCP ordered an ultrasound of the liver. The ultrasound showed some mild ascites and a right lower quadrant mass. She had a CT scan of the chest/abdomen/pelvis which showed multiple pelvic masses and enlarged lymph nodes. A pelvic ultrasound was also done. Her CA125 was elevated at 2342 U/mL (CEA was WNL). She had a colonoscopy on 10/28/2012 which showed some microscopic colitis and hemorrhoids but was otherwise negative. Random biopsies were obtained and the pathology demonstrated a non-small cell carcinoma. Immunostains were positive for CK 7, CK 8, estrogen receptors. Specimen was negative for CK 20. PRIOR TREATMENT: 1) Carboplatin/paclitaxel x3 cycles. 2) 01/09/2013 - Exploratory laparotomy, total abdominal hysterectomy, bilateral salpingo- oophorectomy, omentectomy, pelvic peritoneal stripping, excision of peritoneal nodules, left pelvic lymph node biopsy, argon beam ablation of peritoneal implants with Dr. Avery, and interval debulking surgery for initial resection of ovarian cancer. 3) Received one post operative cycle carbo/Taxol 01/27/13. 4) Was hospitalized on 02/05/13 for small bowel obstruction. It was relieved with medical/conservative management. 5) Carbo with weekly Taxol x 6 cycles, completed 05/27/13. 6) [place]/carbo/cassandra x cycles for biopsy proven metastatic disease (intrahepatic metastases--Had been asymptomatic, but was noted to have an increase in CA-125. CT scan of the abdomen and pelvis was obtained to further evaluate. The study demonstrated 2 lesions within the liver that were suspicious for metastatic disease. She underwent a CT- guided biopsy. 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 7) Bevacizumab. 8) Carbo/Taxol x6 cycles completed 11/09/2016. 9) Doxil. PD following 5 cycles. Current therapy: 1) Topotecan. Presents for ongoing oncologic management. Interim history: She began cycle 1 yesterday. No significant side effect but she has been noticing a low-grade nausea since starting treatment. Zofran helped and last night she took Phenergan which helped a little bit more. Her appetite is doing okay. Bowels are working normally. Sensation of abdominal bloating is subjectively unchanged. No abdominal pain. No episodes of jaundice. No episodes of fever. She has no lingering symptoms of neuropathy. PMH, medications and allergies as below personally reviewed by me today. Any changes documented in appropriate section. ROS: Constitutional: Denies episodes night sweats. Neuro: Denies KLEIN, vertigo, dizziness and imbalance. HEENT: No recent change in voice, vision or hearing. Resp: Denies cough, wheeze and hemoptysis. CVS: No exertional chest pain/pressure or tightness. No PND or orthopnea. No lower extremity swelling or edema. GI: Denies dysgeusia. Denies symptoms of stomatitis. Denies dysphagia and odynophagia. : Denies dysuria or gross hematuria. Endo: Denies hot flashes. Denies polyuria and polydipsia. Denies heat and cold intolerance. Musculoskeletal: Stable symptoms of left-sided sciatica with pain down lateral aspect of thigh. Derm: Denies rash. Denies diffuse pruritis. Heme: Denies unusual bleeding and unexplained bruising. Psych: Normal mood. PHYSICAL EXAM: Vitals: Blood pressure 142/76, pulse 89, temperature 36.6 ?C (97.9 ?F), temperature source Oral, weight 86.2 kg (190 lb), last menstrual period 12/10/2011. Well-appearing and in no acute distress. EYES: Sclerae are anicteric bilaterally. NECK: Supple. LYMPHATIC: There is no palpable cervical, supraclavicular or axillary adenopathy. RESPIRATORY: Inspiratory breath sounds are of normal intensity in all rodriguez. No rales, wheezes or rhonchi. CARDIOVASCULAR: Rhythm is regular. Normal intensity S1/S2. There is no gallop or murmur. ABDOMEN: The abdomen is nondistended. There is no organomegaly. No tenderness. No fluid wave. Extremities: Free of edema. SKIN: No jaundice or rash. No petechiae. NEUROLOGIC: rand maker II-XII are grossly intact. No focal motor weakness. ASSESSMENT/PLAN: 1) Ovarian cancer. KPS is 90%. Biopsy-proven recurrence. Bill [place] refractory. -I personally reviewed CT images from [facility] last week and independently verified and agreed with the radiologist's findings. PD as evidenced by progression of tumor in the upper anterior abdomen. -She is tolerating topotecan well thus far. Mild nausea. -Discussed rationale for testing biopsy specimen from 2014 for somatic BRCA mutation. Plan: -Continue topotecan. -Neupogen x10 days post cycle. -CT C/A/P prior to cycle #4 or sooner pending CA125 trend. -Trial of olanzapine. Omar Gross DO CNOVSP Observed: 11/13/2017 Status: COMPLETED Source: [place] 4:00 PM [facility] REPOSITORY Visit (SP) Office (PRISCILLA) IVA CUEVA ([id number]) 1955 F Date Time Provider Department 11/13/17 4:00 PM OMAR GROSS During your visit today, we recorded the following information about you: Temperature Pulse Blood pressure Weight 97.9 degrees 89/minute 142/76 86.2 kg Omar Gross DO 11/14/2017 8:48 AM Signed Diagnosis: 1) Ovarian cancer. HPI: The patient is a 62 year old female who presented to her PCP prior to a trip to [facility] for vaccinations. She reported that she was having lower pelvic pain and bloating as well as lower leg cramping. She had a BMP done and her LFTs were elevated so her PCP ordered an ultrasound of the liver. The ultrasound showed some mild ascites and a right lower quadrant mass. She had a CT scan of the chest/abdomen/pelvis which showed multiple pelvic masses and enlarged lymph nodes. A pelvic ultrasound was also done. Her CA125 was elevated at 2342 U/mL (CEA was WNL). She had a colonoscopy on 10/28/2012 which showed some microscopic colitis and hemorrhoids but was otherwise negative. Random biopsies were obtained and the pathology demonstrated a non- small cell carcinoma. Immunostains were positive for CK 7, CK 8, estrogen receptors. Specimen was negative for CK 20. PRIOR TREATMENT: 1) Carboplatin/paclitaxel x3 cycles. 2) 01/09/2013 - Exploratory laparotomy, total abdominal hysterectomy, bilateral salpingo- oophorectomy, omentectomy, pelvic peritoneal stripping, excision of peritoneal nodules, left pelvic lymph node biopsy, argon beam ablation of peritoneal implants with Dr. Avery, and interval debulking surgery for initial resection of ovarian cancer. 3) Received one post operative cycle carbo/Taxol 01/27/13. 4) Was hospitalized on 02/05/13 for small bowel obstruction. It was relieved with medical/conservative management. 5) Carbo with weekly Taxol x 6 cycles, completed 05/27/13. 6) [place]/carbo/cassandra x cycles for biopsy proven metastatic disease (intrahepatic metastases--Had been asymptomatic, but was noted to have an increase in CA-125. CT scan of the abdomen and pelvis was obtained to further evaluate. The study demonstrated 2 lesions within the liver that were suspicious for metastatic disease. She underwent a CT-guided biopsy. 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 7) Bevacizumab. 8) Carbo/Taxol x6 cycles completed 11/09/2016. 9) Doxil. PD following 5 cycles. Current therapy: 1) Topotecan. Presents for ongoing oncologic management. Interim history: She began cycle 1 yesterday. No significant side effect but she has been noticing a low-grade nausea since starting treatment. Zofran helped and last night she took Phenergan which helped a little bit more. Her appetite is doing okay. Bowels are working normally. Sensation of abdominal bloating is subjectively unchanged. No abdominal pain. No episodes of jaundice. No episodes of fever. She has no lingering symptoms of neuropathy. PMH, medications and allergies as below personally reviewed by me today. Any changes documented in appropriate section. ROS: Constitutional: Denies episodes night sweats. Neuro: Denies KLEIN, vertigo, dizziness and imbalance. HEENT: No recent change in voice, vision or hearing. Resp: Denies cough, wheeze and hemoptysis. CVS: No exertional chest pain/pressure or tightness. No PND or orthopnea. No lower extremity swelling or edema. GI: Denies dysgeusia. Denies symptoms of stomatitis. Denies dysphagia and odynophagia. : Denies dysuria or gross hematuria. Endo: Denies hot flashes. Denies polyuria and polydipsia. Denies heat and cold intolerance. Musculoskeletal: Stable symptoms of left-sided sciatica with pain down lateral aspect of thigh. Derm: Denies rash. Denies diffuse pruritis. Heme: Denies unusual bleeding and unexplained bruising. Psych: Normal mood. PHYSICAL EXAM: Vitals: Blood pressure 142/76, pulse 89, temperature 36.6 ?C (97.9 ?F), temperature source Oral, weight 86.2 kg (190 lb), last menstrual period 12/10/2011. Well-appearing and in no acute distress. EYES: Sclerae are anicteric bilaterally. NECK: Supple. LYMPHATIC: There is no palpable cervical, supraclavicular or axillary adenopathy. RESPIRATORY: Inspiratory breath sounds are of normal intensity in all rodriguez. No rales, wheezes or rhonchi. CARDIOVASCULAR: Rhythm is regular. Normal intensity S1/S2. There is no gallop or murmur. ABDOMEN: The abdomen is nondistended. There is no organomegaly. No tenderness. No fluid wave. Extremities: Free of edema. SKIN: No jaundice or rash. No petechiae. NEUROLOGIC: rand maker II-XII are grossly intact. No focal motor weakness. ASSESSMENT/PLAN: 1) Ovarian cancer. KPS is 90%. Biopsy-proven recurrence. Bill [place] refractory. -I personally reviewed CT images from [facility] last week and independently verified and agreed with the radiologist's findings. PD as evidenced by progression of tumor in the upper anterior abdomen. -She is tolerating topotecan well thus far. Mild nausea. -Discussed rationale for testing biopsy specimen from 2014 for somatic BRCA mutation. Plan: -Continue topotecan. -Neupogen x10 days post cycle. -CT C/A/P prior to cycle #4 or sooner pending CA125 trend. -Trial of olanzapine. Omar Gross DO Referring Provider: OMAR GROSS [[id number]] Allergies As of Date: 11/13/2017 Noted Allergy Reaction CODEINE 05/03/2007 5 - Intolerance PERCOCET (OXYCODONE-ACETAMINOPHEN)06/29/2015 9 - Itching Seasonal [Other] 06/05/2007 ULTRAM (TRAMADOL HCL) 01/08/2013 9 - Itching VICODIN (HYDROCODONE-ACETAMINOPHE*08/26/2007 9 - Itching Date Reviewed: 11/13/2017 Reviewed by: Kary Napoles - Fully Assessed Reason for Visit: Established Patient [175] Visit Diagnoses:Ovarian cancer, unspecified laterality (HCC) [C56.9] Carcinomatosis (HCC) [C80.0] Order(s):filgrastim (NEUPOGEN) 480 mcg/1.6 mL solnInject 1.6 mL subcutaneously once daily for 10 doses.Disp: 16 mLRfl: 5 lisinopril (ZESTRIL, PRINIVIL) 20 mg tabletTake 1 tablet by mouth once daily.Disp: 90 tabletRfl: 3 OLANZapine (ZYPREXA) 10 mg tabletTake 1 tablet by mouth daily at bedtime.Disp: 90 tabletRfl: 3 Follow-up and Disposition History Recorded Prescriptions as of 11/13/2017 Sig: AMOXICILLIN 500 MG TABLET Take 500 mg by mouth four sharyn* MELATONIN 10 MG TABLET Take 1 tablet by mouth at bed* CYCLOBENZAPRINE 10 MG TABLET Take 1 tablet by mouth every * ZOLPIDEM 5 MG TABLET Take 1 tablet by mouth at bed* PROMETHAZINE 25 MG TABLET Take 1 tablet by mouth every * OMEPRAZOLE 40 MG CAPSULE,BASSEM* Take 1 capsule by mouth once * MAGNESIUM OXIDE 400 MG TABLET Take 400 mg by mouth once nilda* ONDANSETRON HCL 8 MG TABLET Take 1 tablet by mouth every * MORPHINE CONCENTRATE 100 MG/5* Take 0.5 mL by mouth every 4 * GABAPENTIN 300 MG CAPSULE Take 3 capsules by mouth thre* NABUMETONE 500 MG TABLET Take 2 tablets by mouth twice* LORATADINE 10 MG TABLET Take 10 mg by mouth once debora* DOCUSATE SODIUM 100 MG CAPSULE Take 100 mg by mouth twice da* POLYETHYLENE GLYCOL 3350 17 G* Take 17 g by mouth once daily. NAPROXEN SODIUM 220 MG TABLET Take 220 mg by mouth as neede* SENOKOT ORAL Take by mouth once daily. FILGRASTIM 480 MCG/1.6 ML INJ* Inject 1.6 mL subcutaneously * LISINOPRIL 20 MG TABLET Take 1 tablet by mouth once d* OLANZAPINE 10 MG TABLET Take 1 tablet by mouth daily * HYDROCODONE-HOMATROPINE 5 MG-* Take 5 mL by mouth every 4 ho* DEXAMETHASONE 4 MG TABLET Take 1 tablet twice the day p* ONDANSETRON HCL 8 MG TABLET Take 1 tablet by mouth every * FLUTICASONE 50 MCG/ACTUATION * Use 1 [place] in each nostril o* ERGOCALCIFEROL (VITAMIN D2) 5* Take 2 capsules a week for 8 * MULTIVITAMIN TABLET Take 1 tablet by mouth once d* Problem List As Of Date 11/13/2017 Noted Resolved Calculus of gallbladder with other cholecystiti*INVALID FOR*09/22/2016 DIARRHEA SPECIFIED ORGANISM NEC [A08.8] INVALID FOR*09/22/2016 Sebaceous cyst [L72.3] INVALID FOR*09/22/2016 Carcinomatosis [C80.0] INVALID FOR*01/02/2014 Ovarian cancer (HCC) [C56.9] INVALID FOR*09/22/2016 Vaginal atrophy [N95.2] INVALID FOR*09/22/2016 Climacteric [N95.1] INVALID FOR*09/22/2016 Anorectal pain [K62.89] INVALID FOR*09/22/2016 Hemorrhoid [K64.9] INVALID FOR*09/22/2016 Anal fissure [K60.2] INVALID FOR*09/22/2016 Cancer of both ovaries (HCC) [C56.1, C56.2] INVALID FOR* Encounter Status:Closed by OMAR GROSS DO on 1/17/18 CNCO Observed: 11/09/2017 Status: COMPLETED Source: [place] 12:00 AM [facility] REPOSITORY Letter Text Omar Gross DO Hematology AND Medical Oncology/W010 [facility] [address] [place], [place] [address] November 09, 2017 RE: Iva Cueva : 1955 To Whom It May Concern, This letter is to certify that Mrs. Iva Cueva is a patient under my care. She has stage IV ovarian cancer. She has received carboplatin/paclitaxel in the past as well as gemcitabine/carboplatin along with bevacizumab. Most recently she has been receiving Doxil. CT scan earlier this week demonstrated significant progression of disease. I recommended switching treatment to single agent topotecan. Please feel free to contact me at any time with any questions or concerns. Sincerely, Omar Gross DO CBC W/DIFF, AUTOMATED Collected: 11/07/2017 Status: F Source: [place] 9:36 AM [facility] [place] TYPE CODE TESTS RESULT OUT OF RANGE REFERENCE UNITS LAB L100.1000 4.4-11.0 K/mm3 Normal WBC 5.1 LAB L100.1200 4.2-5.4 M/mm3 Low RBC 3.73 LAB L100.1300 12.0-15.0 g/dl Low HGB 11.0 LAB L100.1400 37-47 % Low HCT 34.0 LAB L100.1500 81-99 fL Normal MCV 91.2 LAB L100.1600 27.0-32.0 pg Normal MCH 29.5 LAB L100.1700 32-36 g/gl Normal MCHC 32.4 LAB L100.1810 11.6-14.6 % High RDW CV 15.3 LAB L100.1820 35.1-43.9 fl High RDW SD 51.1 LAB L100.1900 150-450 K/mm3 Normal PLT 341 LAB L100.2000 6.2-12.0 fl Normal MPV 9.8 LAB L100.2100 47-70 % High NEUT% 70.7 LAB L100.2200 19-41 % Low LY% 16.2 LAB L100.2300 0-10 % High MONO% 10.3 LAB L100.2400 0-5 % Normal EO% 1.8 LAB L100.2500 0-1 % Normal BASO% 0.6 LAB L100.2550 0.0-0.9 % Normal IM GRAN % 0.400 Result Comment: IG% - Immature Granulocytes (promyelocytes, myelocytes and metamyelocytes) > 1% indicates that a LEFT SHIFT is Present. LAB L100.2620 2.0-7.7 X10 3/uL Normal Absolute Neut 3.6 LAB L100.2720 0.83-4.51 X10 3/ul Low Absolute Lymph 0.82 Performed By: #### L100.0100 #### [facility] [address] [place], [place], [id number] COMPREHENSIVE METABOLIC Collected: 11/07/2017 Status: F Source: [facility] 9:36 AM [facility] [place] TYPE CODE TESTS RESULT OUT OF RANGE REFERENCE UNITS LAB L501.0100 70-110 mg/dL Normal GLU 77 LAB L501.1000 7-18 mg/dL High BUN 19 LAB L501.1100 0.55-1.02 mg/dL Normal 0.82 CREAT,SERUM Result Comment: The validity of the calculated GFR AND GFRAA in patients over 70 years has not been determined. Clinical correlation is essential. LAB L501.1110 >60 mL/min Normal EST GFR 75 Result Comment: Non- GFR Calc LAB L501.1115 >60 mL/min Normal EST GFR - AA 91 Result Comment: GFR Calc LAB L501.1300 10-20 RATIO High BUN/CRE 23.2 LAB L501.1500 6.4-8.2 g/dL T Normal PROT 7.4 LAB L501.1800 3.4-5.0 g/dL Normal ALB 3.5 Result Comment: Please note revised Albumin AND Globulin reference range effective 2017. LAB L501.1950 2.2-4.2 g/dL Normal GLOB 3.9 LAB L501.2000 0.9-2.4 RATIO Normal A/G 0.9 LAB L501.2200 8.5-10.1 mg/dL Normal CA 8.9 LAB L501.4100 15-37 U/L Normal AST 25 LAB L501.4305 45-117 U/L High ALK P 146 LAB L501.4405 12-78 U/L Normal ALT 26 LAB L501.4600 0.20-1.00 mg/dL Normal T BILI 0.40 LAB L501.5300 136-145 mmol/L Normal NA 139 LAB L501.5600 3.5-5.1 mmol/L Normal K 3.5 LAB L501.5900 98-107 mmol/L Normal CL 101 LAB L501.6100 21.0-32.0 mmol/L Normal CO2 30.0 LAB L501.6200 5-15 Normal GAP 8 Performed By: #### L500.4050 #### [facility] [address] [place], [address] CANCER ANTIGEN 125 Collected: 11/07/2017 Status: F Source: [place] 9:36 AM [facility] [place] TYPE CODE TESTS RESULT OUT OF RANGE REFERENCE UNITS LAB L3100.5000 0.0-38.1 U/mL High CA125 164.1 2303 Result Comment: [place] ECLIA methodology Performed at: [facility] [address] [id number] [place] Carpenter: Carlo Bass PhD, Phone: [phone] Performed By: #### L3100.5000 #### [facility] (refer to report for specific site) refer to report for address and phone number CHEST WITH CONTRAST Observed: 11/06/2017 Status: F Source: [place] 3:33 PM [facility] [place] [facility] Imaging Services [address] [place] [address] Chest WITH Contrast MR#: [id number] Acct: [id number] Name: IVA CUEVA Ronit Rep #: [id number] : 1955 F 62 From: Shahbaz Munguia MD PCP: Peter Deras MD Status: REG CLI Study: Chest WITH Contrast Date of Exam: 11/06/17 Exam# [id number] Ordering Dr: Omar Gross DO STUDY: CT CHEST WITH CONTRAST REASON FOR EXAM: Female, 62 years old. Ovarian cancer follow-up examination. Elevated CA -125 levels. RADIATION DOSAGE (If Supplied By Facility): CTDIvol = ( 16.63 ) mGy, DLP = ( 1790.79 ) mGycm TECHNIQUE: Transaxial imaging was performed following intravenous administration of 100 ml of Isovue 300 contrast material. Multiplanar coronal and sagittal images were reformatted. Individualized dose optimization techniques were used for this CT. COMPARISON: Comparison is made with prior study dated June 01, 2017. FINDINGS: A left-sided hannah catheter is seen with the tip in the superior vena cava. Stable benign-appearing small bilateral axillary lymph nodes. Stable calcified fibroadenoma in the deep medial portion of the right breast. The lungs are normal. There is no demonstrated pleural abnormality. Normal heart and pericardium. Normal mediastinum. Normal hilar regions. Normal enhanced pulmonary arteries. Normal aorta arch and descending thoracic aorta. There are multi-level degenerative changes of the thoracic spine. Nodular density seen in the left upper quadrant between the stomach and spleen. Nodular density seen in the hannah hepatis. This is described on the CT scan of the abdomen. CT/Chest WITH Contrast IMPRESSION: Stable examination of the chest. Electronically Signed: Shahbaz Munguia MD at 8:20 EST Tel [phone], Service support , CC: Peter Deras MD; Omar Gross DO Help Desk Representative: Signed ABDOMEN/PELVIS WITH Observed: 11/06/2017 Status: F Source: [place] [facility] 3:09 PM [facility] Imaging Services [address] [place] [id number] Abdomen/Pelvis WITH Contrast MR#: [id number] Acct: [id number] Name: IVA CUEVA Rep #: [id number] : 1955 F 62 From: Shahbaz Munguia MD PCP: Peter Deras MD Status: REG CLI Study: Abdomen/Pelvis WITH Contrast Date of Exam: 11/06/17 Exam# [id number] Ordering Dr: Omar Gross DO STUDY: CT ABDOMEN AND PELVIS WITH CONTRAST REASON FOR EXAM: Female, 62 years old. Follow-up examination for ovarian carcinoma. Elevated CA 125. RADIATION DOSAGE (If Supplied By Facility): CTDIvol = ( 16.63 ) mGy, DLP = ( 1790.79 ) mGycm TECHNIQUE: Transaxial images were obtained from the dome of the diaphragm to the symphysis pubis with oral contrast. 100 ml of Isovue 300 contrast was administered. Sagittal and coronal images were reconstructed. Individualized dose optimization techniques were used for this CT. COMPARISON: Comparison is made with prior study dated June 01, 2017. FINDINGS: The visualized lung bases are unremarkable. The visualized portions of the heart are within normal limits. Normal liver. The patient is status post cholecystectomy. Normal spleen. The previously seen soft tissue nodular densities within the peritoneal fat in the left upper quadrant between the greater curvature of the stomach and the spleen have increased in number and size. There is also evidence of periportal rounded soft tissue density suggestive of adenopathy. Small rounded nodular densities are also seen around the celiac axis. These most likely represent small lymph nodes. Normal pancreas. The previously seen soft tissue masses in the anterior abdomen in the region of the omentum have increased in size as well. Normal bilateral adrenal glands. Normal right kidney. Normal left kidney. Normal visualized stomach. Normal small intestine. Normal colon. The patient is status post appendectomy. There is scattered atherosclerotic calcification of the abdominal aorta, without a demonstrated aneurysm. Normal inferior vena cava. There is borderline retroperitoneal lymphadenopathy with enlarged nodes no greater than 10mm in the short axis diameter. Normal urinary bladder. There is absence of the uterus consistent with a prior hysterectomy. Stable low density lesions are also seen in the left side of the pelvis. This is unchanged. Normal abdominal wall. There are mild degenerative changes of the visualized lumbar spine. CT/Abdomen/Pelvis WITH Contrast IMPRESSION: Since prior study, there has been a progression of the nodular densities seen in the left upper quadrant as well as progressive lesions within the anterior abdomen and omentum. Findings suggestive of adenopathy within the hannah hepatis and celiac axis. Electronically Signed: Shahbaz Munguia MD at 8:18 EST Tel [phone], Service support , CC: Peter Deras MD; Omar Gross DO Help Desk Representative: Signed SR-ABDOMEN/PELVIS WITH Observed: 11/06/2017 Status: F Source: [place] [facility] 12:00 AM [facility] REPOSITORY Images were obtained outside of [facility] [id number] CT-CHEST WITH Observed: 11/06/2017 Status: F Source: [place] [facility] 12:00 AM [facility] REPOSITORY Images were obtained outside of [facility] [id number] ECHOCARDIOGRAM COMPLETE Observed: 10/25/2017 Status: F Source: [place] 3:18 PM [facility] [place] [facility] Cardiovascular Services [address] [place] [id number] Echo Complete 10/25/17 1301 MR#: [id number] Acct: [id number] Name: IVA CUEVA Rep #: [id number] : 1955 62 From: Julio Hung MD Attending Dr: Omar Gross DO Status: REG CLI Ordering Dr: Omar Gross DO Date: 10/25/17 Location: [facility] Sex: F C Admitted: Reason For Study: SOB Procedure This was a 2D Doppler, Color Flow transthoracic echocardiogram. Exam performed in department. Left Ventricle Normal LV size. Mild concentric left ventricular hypertrophy. Left ventricular systolic function is normal. The estimated ejection fraction is 60 %. No regional wall motion abnormalities noted. Right Ventricle Normal RV size. Normal systolic function. Atria Normal left atrium. Normal right atrium. Mitral Valve Normal mitral valve. Tricuspid Valve Normal tricuspid valve. Aortic Valve Normal aortic valve. Trisinus/trileaflet aortic valve. Pulmonic Valve Normal pulmonic valve. Great Vessels Normal aortic root. The pulmonary artery is normal size. Normal inferior vena cava. Pericardium/Pleural No pericardial effusion. MMode/2D Measurements AND Calculations LVIDd: 4.4 cm IVSd: 1.3 cm Ao root diam: 2.6 cm LVIDs: 2.6 cm LVPWd: 1.4 cm LA dimension: 3.6 cm RVDd: 3.1 cm FS: 41.3 % LAV(MOD-bp): 32.5 ml LA A4 area: 16.1 cm2 RA A4 area: 13.9 cm2 LAV(MOD-bp) Indexed: 16.8 ml/m2 LAV(MOD-sp2): 25.4 ml LAV(MOD-sp4): 38.2 ml Time Measurements MV dec time: 0.23 sec Doppler Measurements AND Calculations MV E max quinton: 69.1 cm/sec Lat Peak E' Quinton: 11.0 cm/sec Med Peak E' Quinton: 8.0 cm/sec MV A max quinton: 109.2 cm/sec E/E' lat: 6.3 E/E' med: 8.7 MV E/A: 0.63 MV V2 max: 117.0 cm/sec MV P1/2t max quinton: 83.8 cm/sec Ao V2 max: 155.8 cm/sec MV max P.5 mmHg MV P1/2t: 77.7 msec Ao max P.7 mmHg MV V2 mean: 60.9 cm/sec MV dec slope: 316.0 cm/sec2 Ao V2 mean: 95.9 cm/sec MV mean P.8 mmHg MVA(P1/2t): 2.8 cm2 Ao mean P.3 mmHg MV V2 VTI: 21.4 cm Ao V2 VTI: 26.6 cm LV V1 max: 142.2 cm/sec PA V2 max: 122.3 cm/sec LV V1 max P.1 mmHg LV V1 mean P.5 mmHg LV V1 mean: 87.0 cm/sec LV V1 VTI: 25.1 cm Interpretation Summary Normal LV size. Mild concentric left ventricular hypertrophy. Left ventricular systolic function is normal. The estimated ejection fraction is 60 %. Structurally normal valves. Ordering Physician: Omar Gross Referring Physician: Peter Deras Performed By: Bruno Gill RCS 10/25/17 1518 Date Julio Hung MD CC: Peter Deras MD; Omar Gross DO Date Dictated: 10/25/17 1301 Date Transcribed: 10/25/17 1518 Help Desk Representative: Signed PROGRESS Observed: 10/16/2017 Status: COMPLETED Source: [place] 4:28 PM [facility] REPOSITORY [facility] ID: [id number] Author: Omar Gross Service: (none) Author Type: Physician Type: Progress Notes Filed: 10/16/2017 5:06 PM Note Text: Diagnosis: 1) Ovarian cancer. HPI: The patient is a 62 year old female who presented to her PCP prior to a trip to [facility] for vaccinations. She reported that she was having lower pelvic pain and bloating as well as lower leg cramping. She had a BMP done and her LFTs were elevated so her PCP ordered an ultrasound of the liver. The ultrasound showed some mild ascites and a right lower quadrant mass. She had a CT scan of the chest/abdomen/pelvis which showed multiple pelvic masses and enlarged lymph nodes. A pelvic ultrasound was also done. Her CA125 was elevated at 2342 U/mL (CEA was WNL). She had a colonoscopy on 10/28/2012 which showed some microscopic colitis and hemorrhoids but was otherwise negative. Random biopsies were obtained and the pathology demonstrated a non-small cell carcinoma. Immunostains were positive for CK 7, CK 8, estrogen receptors. Specimen was negative for CK 20. PRIOR TREATMENT: 1) Carboplatin/paclitaxel x3 cycles. 2) 01/09/2013 - Exploratory laparotomy, total abdominal hysterectomy, bilateral salpingo- oophorectomy, omentectomy, pelvic peritoneal stripping, excision of peritoneal nodules, left pelvic lymph node biopsy, argon beam ablation of peritoneal implants with Dr. Avery, and interval debulking surgery for initial resection of ovarian cancer. 3) Received one post operative cycle carbo/Taxol 01/27/13. 4) Was hospitalized on 02/05/13 for small bowel obstruction. It was relieved with medical/conservative management. 5) Carbo with weekly Taxol x 6 cycles, completed 05/27/13. 6) [place]/carbo/cassandra x cycles for biopsy proven metastatic disease (intrahepatic metastases--Had been asymptomatic, but was noted to have an increase in CA-125. CT scan of the abdomen and pelvis was obtained to further evaluate. The study demonstrated 2 lesions within the liver that were suspicious for metastatic disease. She underwent a CT- guided biopsy. 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 7) Bevacizumab. 8) Carbo/Taxol x6 cycles completed 11/09/2016. Current therapy: 1) Doxil. Presents for ongoing oncologic management. Interim history: She has no complaints today. Her side effect pattern has been pretty consistent with each cycle of Doxil. She has about 2 weeks of just feeling unwell. She has no cardiovascular symptoms including chest pain, pressure and tightness. No palpitation. No shortness of breath at rest or with moderate exertion. No lower extremity swelling. She does have a continual sense of abdominal fullness and bloating. This is no worse nor is it any better. Bowels are working normally. Her appetite is been off. No nausea or vomiting. No episodes of jaundice. No symptoms of neuropathy. PMH, medications and allergies as below personally reviewed by me today. Any changes documented in appropriate section. ROS: Constitutional: Denies episodes of fever and night sweats. Neuro: Denies KLEIN, vertigo, dizziness and imbalance. HEENT: No recent change in voice, vision or hearing. Resp: Denies cough, wheeze and hemoptysis. CVS: See above.. GI: Denies dysgeusia. Denies symptoms of stomatitis. Denies dysphagia and odynophagia. : Denies dysuria or gross hematuria. Endo: Denies hot flashes. Denies polyuria and polydipsia. Denies heat and cold intolerance. Musculoskeletal: Stable symptoms of left-sided sciatica with pain down lateral aspect of thigh. Derm: Denies rash. Denies diffuse pruritis. Heme: Denies unusual bleeding and unexplained bruising. Psych: Normal mood. PHYSICAL EXAM: Vitals: Blood pressure 160/82, pulse 94, temperature 36.6 ?C (97.9 ?F), temperature source Oral, weight 88.7 kg (195 lb 8 oz), last menstrual period 12/10/2011. Well-appearing and in no acute distress. EYES: Sclerae are anicteric bilaterally. NECK: Supple. LYMPHATIC: There is no palpable cervical, supraclavicular or axillary adenopathy. RESPIRATORY: Inspiratory breath sounds are of normal intensity in all rodriguez. No rales, wheezes or rhonchi. CARDIOVASCULAR: Rhythm is regular. Normal intensity S1/S2. There is no gallop or murmur. ABDOMEN: The abdomen is nondistended. There is no organomegaly. No tenderness. No fluid wave. Extremities: Free of edema. SKIN: No jaundice or rash. No petechiae. NEUROLOGIC: rand maker II-XII are grossly intact. No focal motor weakness. ASSESSMENT/PLAN: 1) Ovarian cancer. KPS is 90%. Biopsy-proven recurrence. [place] refractory. Tolerating chemotherapy fairly well but she has cumulative symptoms and toxicity from the treatment. -Reviewed CA-125 trend. It has varied since she started Doxil. -She hasn't had a baseline echocardiogram. As will be obtained. -Discussed will get scans prior to next cycle. Plan: -Cycle #5 tomorrow. -Decrease Neupogen to 10 days post cycle. -CT C/A/P prior to cycle #6. -Echocardiogram. Omar Gross DO CNOVSP Observed: 10/16/2017 Status: COMPLETED Source: [place] 4:00 PM [facility] REPOSITORY Visit (SP) Office (PRISCILLA) IVA CUEVA ([id number]) 1955 F Date Time Provider Department 10/16/17 4:00 PM OMAR GROSS During your visit today, we recorded the following information about you: Temperature Pulse Blood pressure Weight 97.9 degrees 94/minute 160/82 88.7 kg Omar Gross DO 10/16/2017 5:06 PM Signed Diagnosis: 1) Ovarian cancer. HPI: The patient is a 62 year old female who presented to her PCP prior to a trip to [facility] for vaccinations. She reported that she was having lower pelvic pain and bloating as well as lower leg cramping. She had a BMP done and her LFTs were elevated so her PCP ordered an ultrasound of the liver. The ultrasound showed some mild ascites and a right lower quadrant mass. She had a CT scan of the chest/abdomen/pelvis which showed multiple pelvic masses and enlarged lymph nodes. A pelvic ultrasound was also done. Her CA125 was elevated at 2342 U/mL (CEA was WNL). She had a colonoscopy on 10/28/2012 which showed some microscopic colitis and hemorrhoids but was otherwise negative. Random biopsies were obtained and the pathology demonstrated a non- small cell carcinoma. Immunostains were positive for CK 7, CK 8, estrogen receptors. Specimen was negative for CK 20. PRIOR TREATMENT: 1) Carboplatin/paclitaxel x3 cycles. 2) 01/09/2013 - Exploratory laparotomy, total abdominal hysterectomy, bilateral salpingo- oophorectomy, omentectomy, pelvic peritoneal stripping, excision of peritoneal nodules, left pelvic lymph node biopsy, argon beam ablation of peritoneal implants with Dr. Avery, and interval debulking surgery for initial resection of ovarian cancer. 3) Received one post operative cycle carbo/Taxol 01/27/13. 4) Was hospitalized on 02/05/13 for small bowel obstruction. It was relieved with medical/conservative management. 5) Carbo with weekly Taxol x 6 cycles, completed 05/27/13. 6) [place]/carbo/cassandra x cycles for biopsy proven metastatic disease (intrahepatic metastases--Had been asymptomatic, but was noted to have an increase in CA-125. CT scan of the abdomen and pelvis was obtained to further evaluate. The study demonstrated 2 lesions within the liver that were suspicious for metastatic disease. She underwent a CT-guided biopsy. 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 7) Bevacizumab. 8) Carbo/Taxol x6 cycles completed 11/09/2016. Current therapy: 1) Doxil. Presents for ongoing oncologic management. Interim history: She has no complaints today. Her side effect pattern has been pretty consistent with each cycle of Doxil. She has about 2 weeks of just feeling unwell. She has no cardiovascular symptoms including chest pain, pressure and tightness. No palpitation. No shortness of breath at rest or with moderate exertion. No lower extremity swelling. She does have a continual sense of abdominal fullness and bloating. This is no worse nor is it any better. Bowels are working normally. Her appetite is been off. No nausea or vomiting. No episodes of jaundice. No symptoms of neuropathy. PMH, medications and allergies as below personally reviewed by me today. Any changes documented in appropriate section. ROS: Constitutional: Denies episodes of fever and night sweats. Neuro: Denies KLEIN, vertigo, dizziness and imbalance. HEENT: No recent change in voice, vision or hearing. Resp: Denies cough, wheeze and hemoptysis. CVS: See above.. GI: Denies dysgeusia. Denies symptoms of stomatitis. Denies dysphagia and odynophagia. : Denies dysuria or gross hematuria. Endo: Denies hot flashes. Denies polyuria and polydipsia. Denies heat and cold intolerance. Musculoskeletal: Stable symptoms of left-sided sciatica with pain down lateral aspect of thigh. Derm: Denies rash. Denies diffuse pruritis. Heme: Denies unusual bleeding and unexplained bruising. Psych: Normal mood. PHYSICAL EXAM: Vitals: Blood pressure 160/82, pulse 94, temperature 36.6 ?C (97.9 ?F), temperature source Oral, weight 88.7 kg (195 lb 8 oz), last menstrual period 12/10/2011. Well-appearing and in no acute distress. EYES: Sclerae are anicteric bilaterally. NECK: Supple. LYMPHATIC: There is no palpable cervical, supraclavicular or axillary adenopathy. RESPIRATORY: Inspiratory breath sounds are of normal intensity in all rodriguez. No rales, wheezes or rhonchi. CARDIOVASCULAR: Rhythm is regular. Normal intensity S1/S2. There is no gallop or murmur. ABDOMEN: The abdomen is nondistended. There is no organomegaly. No tenderness. No fluid wave. Extremities: Free of edema. SKIN: No jaundice or rash. No petechiae. NEUROLOGIC: rand maker II-XII are grossly intact. No focal motor weakness. ASSESSMENT/PLAN: 1) Ovarian cancer. KPS is 90%. Biopsy-proven recurrence. [place] refractory. Tolerating chemotherapy fairly well but she has cumulative symptoms and toxicity from the treatment. -Reviewed CA-125 trend. It has varied since she started Doxil. -She hasn't had a baseline echocardiogram. As will be obtained. -Discussed will get scans prior to next cycle. Plan: -Cycle #5 tomorrow. -Decrease Neupogen to 10 days post cycle. -CT C/A/P prior to cycle #6. -Echocardiogram. Omar Gross DO Referring Provider: OMAR GROSS [[id number]] Allergies As of Date: 10/16/2017 Noted Allergy Reaction CODEINE 05/03/2007 5 - Intolerance PERCOCET (OXYCODONE-ACETAMINOPHEN)06/29/2015 9 - Itching Seasonal [Other] 06/05/2007 ULTRAM (TRAMADOL HCL) 01/08/2013 9 - Itching VICODIN (HYDROCODONE-ACETAMINOPHE*08/26/2007 9 - Itching Date Reviewed: 10/16/2017 Reviewed by: Kary Napoles - Fully Assessed Reason for Visit: Established Patient [175] Primary Visit Diagnosis:Cancer of both ovaries (HCC) [C56.1, C56.2] Order(s):cyclobenzaprine (FLEXERIL) 10 mg tabletTake 1 tablet by mouth every 6 hours as needed.Disp: 90 tabletRfl: 2 CT ABD/PEL W IVCON [[id number]] Order #: [id number] FUTURE CT CHEST W IVCON [[id number]] Order #: [id number] FUTURE iv contrast (radiology procedure)CT Chest ABD/PEL-Inject, intravenously, once for 1 dose.No IV access, insert saline lock prior to the beginning of sedation, infusion, injection of imaging exam. Discontinue saline lock post exam. If Pt. has a central line or IVAD, may access for administration according to line specific nursing protocol. Once exam is complete flush line and de- access according to line specific nursing protocol in the CT contrast administration guidelines link.Disp: 1 EachRfl: 0 enteric contrast (radiology procedure)For CT CHESTABD/PEL W IVCON Routine order Administer, As Directed One Time Only, via Oral, Rectal, both Oral and Rectal, Enteric Tube, Stoma or Indwelling Catheter, Enteric Contrast as designated per enteric contrast guidelinesDisp: 1 EachRfl: 0 ECHO [[id number]] Order #: [id number]: 1 FUTURE filgrastim (NEUPOGEN) 480 mcg/1.6 mL solnInject 1.6 mL subcutaneously once daily for 10 doses.Disp: 16 mLRfl: 5 Follow-up and Disposition History Recorded Prescriptions as of 10/16/2017 Sig: MELATONIN 10 MG TABLET Take 1 tablet by mouth at bed* CYCLOBENZAPRINE 10 MG TABLET Take 1 tablet by mouth every * ZOLPIDEM 5 MG TABLET Take 1 tablet by mouth at bed* PROMETHAZINE 25 MG TABLET Take 1 tablet by mouth every * OMEPRAZOLE 40 MG CAPSULE,BASSEM* Take 1 capsule by mouth once * MAGNESIUM OXIDE 400 MG TABLET Take 400 mg by mouth once nilda* ONDANSETRON HCL 8 MG TABLET Take 1 tablet by mouth every * MORPHINE CONCENTRATE 100 MG/5* Take 0.5 mL by mouth every 4 * GABAPENTIN 300 MG CAPSULE Take 3 capsules by mouth thre* NABUMETONE 500 MG TABLET Take 2 tablets by mouth twice* LORATADINE 10 MG TABLET Take 10 mg by mouth once debora* DOCUSATE SODIUM 100 MG CAPSULE Take 100 mg by mouth twice da* POLYETHYLENE GLYCOL 3350 17 G* Take 17 g by mouth once daily. NAPROXEN SODIUM 220 MG TABLET Take 220 mg by mouth as neede* SENOKOT ORAL Take by mouth once daily. IV CONTRAST (RADIOLOGY PROCED* CT Chest ABD/PEL-Inject, intr* ENTERIC CONTRAST (RADIOLOGY P* For CT CHESTABD/PEL W IVCON R* FILGRASTIM 480 MCG/1.6 ML INJ* Inject 1.6 mL subcutaneously * HYDROCODONE-HOMATROPINE 5 MG-* Take 5 mL by mouth every 4 ho* DEXAMETHASONE 4 MG TABLET Take 1 tablet twice the day p* ONDANSETRON HCL 8 MG TABLET Take 1 tablet by mouth every * FLUTICASONE 50 MCG/ACTUATION * Use 1 [place] in each nostril o* ERGOCALCIFEROL (VITAMIN D2) 5* Take 2 capsules a week for 8 * METOCLOPRAMIDE 10 MG TABLET Take 1 tablet by mouth every * MULTIVITAMIN TABLET Take 1 tablet by mouth once d* Medication notes this encounter MULTIVITAMIN TABLET >> Kary Napoles MA 10/16/2017 4:05 PM >> KAYR NAPOLES MA Oct 16, 2017 4:05 PM Not taking. Problem List As Of Date 10/16/2017 Noted Resolved Calculus of gallbladder with other cholecystiti*INVALID FOR*09/22/2016 DIARRHEA SPECIFIED ORGANISM NEC [A08.8] INVALID FOR*09/22/2016 Sebaceous cyst [L72.3] INVALID FOR*09/22/2016 Carcinomatosis [C80.0] INVALID FOR*01/02/2014 Ovarian cancer (HCC) [C56.9] INVALID FOR*09/22/2016 Vaginal atrophy [N95.2] INVALID FOR*09/22/2016 Climacteric [N95.1] INVALID FOR*09/22/2016 Anorectal pain [K62.89] INVALID FOR*09/22/2016 Hemorrhoid [K64.9] INVALID FOR*09/22/2016 Anal fissure [K60.2] INVALID FOR*09/22/2016 Cancer of both ovaries (HCC) [C56.1, C56.2] INVALID FOR* Encounter Status:Closed by OMAR GROSS DO on 10/16/17 ALLERGIES ALLERGIES DATE TYPE / CODE NAME / CODE REACTION SEVERITY SOURCE Drug hydrocodone Itching Unknown [place] [facility] Allergy/942042812( bitartrate/F0000 [facility]) [address](RXNORM) Hospital Repository Drug tramadol Itching Unknown [place] 8 Allergy/730355449( HCl/K455052305(R [facility]) XNORM) Hospital Repository Drug codeine/J0133364 Itching Unknown [place] [facility] Allergy/259672996( 50(RXNORM) [facility] Repository Drug oxycodone/R62262 Itching Unknown [place] [facility] Allergy/716622932( 1558(RXNORM) [facility] Repository Drug acetaminophen/F0 Itching Unknown [place] [facility] Allergy/541871292( 66319827(RXNORM) [facility] Hospital Repository DRUG/376168872(SNO OXYCODONE-ACETAM ITCHING [place] [address]) INOPHEN [facility] [place] Repository DRUG TRAMADOL HCL ITCHING [place] INGREDI/343510515( [facility] SNOM[facility]) [place] Repository DRUG/839620622(SNO HYDROCODONE-ACET ITCHING [place] [address]) AMINOPH[facility] [place] Repository Miscellaneous OTHER [place] [facility] Allergy/595073841( [facility] SNOM[facility]) [place] Repository DRUG CODEINE INTOLERANCE [place] INGREDI/638106644( [facility] SNOMED [facility]) [place] Repository ENCOUNTERS ENCOUNTERS ADMIT/DISCHARGE ACCOUNT ADMITTING ENCOUNTER LOCATION SOURCE NUMBER CLASS 10/11/2018 [id number] Ambulatory [facility] Hospital ing:MEDOUTP Repository 10/10/2018 [id number] [facility] Rep[facility] 10/09/2018 [id number] [facility] Repository 10/08/2018 [id number] [facility] ing[facility] Repository 10/07/2018 [id number] Ambulatory [facility] Hospital ing:MEDOUTP Repository 09/26/2018 [id number] Ambulatory [facility] Hospital ing:OPUS Repository 09/17/2018/09/17/20 [id number] Ambulatory [facility]:B [place] [facility] Hospital Repository 09/13/2018 [id number] [place]ulatory [place] [facility] Hospital ing:MEDOUTP Repository 09/12/2018 [id number] [place] [facility] Hospital ing:MEDOUTP Repository 09/11/2018 [id number] [place] [facility] Hospital ing:MEDOUTP Repository 09/10/2018 [id number] Amb[place] [facility] Hospital ing:MEDOUTP Repository 09/09/2018 [id number] [place] [facility] Hospital ing:MEDOUTP Repository 08/30/2018/09/02/20 [id number] Ambulatory [address] Repository 08/29/2018 [id number] Ambulatory [place] [facility] Hospital ing:LAB Repository 08/26/2018/08/26/20 [id number] [place] [address] [place] [address] HospitalBuild Hospital ing:LAB Repository 08/06/2018 [id number] [place] [facility] HospitalBuild Hospital ing:MEDOUTP Repository 08/02/2018 [id number] Amb[place] [facility] Hospital ing:MEDOUTP Repository 08/01/2018 [id number] Ambulatory [place] [facility]Build Hospital ing:MEDOUTP Repository 07/31/2018 [id number] Ambulatory [place] [facility] Hospital ing:MEDOUTP Repository 07/30/2018 [id number] [place]ulatory [place] [facility]Build Hospital ing:MEDOUTP Repository 07/29/2018 [id number] Amb[place] [facility] Hospital ing:MEDOUTP Repository 07/23/2018/07/23/20 [id number] [place]ulatory [place] [facility] Hospital ing:LAB Repository 07/12/2018 [id number] Ambulatory [place] [facility] Hospital ing:MEDOUTP Repository 07/11/2018 [id number] Ambulatory [place] [facility] Hospital ing:MEDOUTP Repository 07/10/2018 [id number] [place] [facility] Hospital[facility] Hospital ing:MEDOUTP Repository 07/09/2018 [id number] [facility] Rep[facility] 07/08/2018 [id number] [facility] Repository 07/04/2018/07/05/20 [id number] Ambulatory [address] [facility] [place] Repository 06/26/2018/06/26/20 [id number] [place] HospitalBuild Hospital ing:LAB Repository 06/21/2018 [id number] [facility] Rep[facility] 06/20/2018 [id number] [facility] [place] [facility] Repository 06/19/2018 [id number] [facility] Repository 06/18/2018 [id number] [facility] Repository 06/17/2018 [id number] [facility] Repository 06/13/2018/06/14/20 [id number] Ambulatory [address] Repository 05/24/2018 [id number] [facility] Repository 05/23/2018 [id number] [facility] Repository 05/22/2018 [id number] [facility] Repository 05/21/2018 [id number] [facility] Repository 05/20/2018 [id number] [facility] Repository 05/18/2018/05/18/20 [id number] Amb[place] HospitalBuild Hospital ing:LAB Repository 04/29/2018/04/29/20 [id number] Ambulatory [address] [facility] [place] Repository 04/29/2018/04/29/20 [id number] Ambulatory [address] Repository 04/29/2018/05/03/20 [id number] Ambulatory [address] Repository 04/29/2018/04/29/20 [id number] Ambulatory [address] Repository 04/18/2018/04/22/20 [id number] Ambulatory [address] Repository 04/16/2018/04/16/20 [id number] [place] [address] [place] [address] HospitalBuild Hospital ing:LAB Repository 04/12/2018/04/13/20 [id number] Ambulatory [address] Repository 04/06/2018/04/06/20 [id number] Ambulatory [place] [address] [place] [address] HospitalBuild Hospital ing:MEDOUTP Repository 04/05/2018 [id number] [facility] [place] [facility] Repository 04/04/2018 [id number] [facility] Repository 04/03/2018 [id number] [facility] Repository 04/02/2018 [id number] [facility] Repository 03/29/2018/04/01/20 [id number] Ambulatory [address] Repository 03/27/2018/03/27/20 [id number] Ambulatory [place] HospitalBuild Hospital ing:LAB Repository 03/08/2018 [id number] [facility] [place] [facility] Repository 03/07/2018 [id number] [facility] ing[facility] Repository 03/06/2018 [id number] [facility] [place] [facility] ing[facility] Repository 03/05/2018 [id number] [facility] [place] [facility] ing:[facility] Repository 03/04/2018 [id number] [facility] [place] [facility] ing[facility] Repository 02/27/2018/02/29/20 [id number] Ambulatory [address] Repository 02/13/2018 [id number] [facility] [place] [facility] ing[facility] Repository 02/11/2018/02/12/20 [id number] [place] [address] [place] [address] HospitalBuild Hospital ing:LAB Repository 02/08/2018 [id number] [facility] [place] [facility] ing[facility] Repository 02/07/2018 [id number] [facility] [place] [facility] ing:[facility] Repository 02/06/2018 [id number] Ambulatory [place] [facility] Hospital ing:MEDOUTP Repository 02/05/2018 [id number] [facility] ing[facility] Repository 02/04/2018 [id number] Amb[place] [facility] Hospital ing:MEDOUTP Repository 01/18/2018 [id number] [facility] Repository 01/17/2018 [id number] [facility] [place] [facility] ing:[facility] Repository 01/16/2018 [id number] [facility] Repository 01/15/2018 [id number] [facility] ing[facility] Repository 01/14/2018 [id number] Ambulatory [place] [facility] Hospital ing:MEDOUTP Repository 01/09/2018/01/12/20 [id number] Ambulatory [address] [facility] [place] Repository 01/09/2018/01/10/20 [id number] [place]ulatory [place] [address] [place] [address] HospitalBuild Hospital ing:LAB Repository 01/03/2018 [id number] [place]ulatory [place] [facility] Hospital ing:MEDOUTP Repository 12/28/2017 [id number] Ambulatory [place] [facility] Hospital ing:MEDOUTP Repository 12/27/2017 [id number] Ambulatory [place] [facility] Hospital ing:MEDOUTP Repository 12/26/2017 [id number] [facility] Repository 12/25/2017 [id number] Ambulatory [place] [facility] Hospital ing:MEDOUTP Repository 12/24/2017 [id number] [facility] Repository 12/19/2017/12/19/19 [id number] Ambulatory [address] Repository 12/19/2017/12/19/19 [id number] [place]ulatory [place] [facility] Hospital ing:LAB Repository 12/07/2017 [id number] [facility] Repository 12/06/2017 [id number] [facility] Repository 12/05/2017 [id number] [facility] Repository 12/04/2017 [id number] [facility] Repository 12/03/2017 [id number] [facility] ing:MEDOUTP Repository 11/28/2017/11/29/19 [id number] Ambulatory [address] Repository 11/28/2017/11/28/19 [id number] Ambulatory [place] [address] [facility] ing:LAB Repository 11/16/2017 [id number] [facility] ing:MEDOUTP Repository 11/15/2017 [id number] [facility] ing:MEDOUTP Repository 11/14/2017 [id number] [facility] ing:MEDOUTP Repository 11/13/2017/11/15/19 [id number] Ambulatory [address] Repository 11/13/2017 [id number] [facility] ing:MEDOUTP Repository 11/12/2017 [id number] Ambulatory [facility] ing:MEDOUTP Repository 11/06/2017 [id number] [facility]ulatory [facility] ing:CT Repository 10/25/2017 [id number] [facility] Repository 10/25/2017 [id number] Ambulatory [facility] Repository 10/17/2017 [id number] [facility]MEDOUTP Repository 10/16/2017/10/18/20 [id number] Ambulatory [address] Repository PAYERS PAYERS ENCOUNTER GUARANTOR PAYER SUBSCRIBER SOURCE 10/11/2018 IVA L Primary IVA L [place] [id number] [place] Insurance:MEDICAL MAIBACHDOB: [facility] [id number]-[facility] [address]Pqc: Number: Repository [id number] (HP) Date:0444-47-90LE [address] [address]SC: 10/11/2018 Secondary NOT GIVENUNK [place] Insurance:SELF PAY [facility] Number: Effective Repository Date:2018-09-17 10/10/2018 IVA L Primary IVA L [place] [id number] [place] Insurance:MEDICAL MAIBACHDOB: [facility] [id number] [place] [address]Kcf: Number: Repository [id number] (HP) Date:2152-75-21MK [place] [address]WP: 10/10/2018 Secondary NOT GIVENUNK [place] Insurance:SELF PAY [facility] Number: Effective Repository Date:2018-09-17 10/09/2018 IVA L Primary IVA L [place] [id number] [place] Insurance:MEDICAL MAIBACHDOB: [facility] [id number]-Canoncito-Lag[facility] [address]Tgm: Number: Repository [id number] (HP) Date:9955-17-37WZ [address] [address]KO: 10/09/2018 Secondary NOT GIVENUNK [place] Insurance:SELF PAY [facility] Number: Effective Repository Date:2018-09-17 10/08/2018 IVA L Primary IVA Ronit GoldbergBoston [id number] [place] Insurance:MEDICAL MAIBACHDOB: [facility] 0560-26-90NRDAcoma-Canoncito-Lag[facility] Hospital [address]Nrc: Number: Repository [id number] (HP) Date:2124-79-24DX [place] [address]WP: 10/08/2018 Secondary NOT GIVENUNK [place] Insurance:SELF PAY [facility] Number: Effective Repository Date:2018-09-17 10/07/2018 JOSÉ MIGUEL Markham Primary IVA [place]it [place] [id number] [place] Insurance:MEDICAL MAIBADOB: [facility] [id number]-Canonc[facility] [address]Zws: Number: Repository [id number] (HP) Date:7920-39-38PZ [place] [address]01[address]WP: 10/07/2018 Secondary NOT GIVENUNK [place] Insurance:SELF PAY [facility] Number: Effective Repository Date:2018-09-17 09/26/2018 IVA Ronit Primary IAV Ronit GoldbergLaron [id number] [place] Insurance:MEDICAL MAIBACHDOB: [facility] [id number]-Canoncito-[facility] Hospital [address]Enm: Number: Repository [id number] (HP) Date:7187-13-41GG [place] [address]WP: 09/26/2018 Secondary NOT GIVENUNK [place] Insurance:SELF PAY [facility] Number: Effective Repository Date:2018-09-18 09/17/2018 IVA Ronit Primary IVA Ronit GoldbergBoston [id number] [place] Insurance:MEDICAL MAIBACHDOB: [facility] [id number] [facility] [place] [address]Dos: Number: Repository [id number] (HP) Date:9459-29-07WO [address] [place] [address]OI: 09/17/2018 Secondary NOT GIVENUNK [place] Insurance:SELF PAY [facility] Number: Effective Repository Date:2018-09-17 09/13/2018 JOSÉ MIGUEL Rashi Primary IVA Ronit [place] [id number] [place] Insurance:MEDICAL MAIBACHDOB: [facility] [id number]-Canoncito-[facility] Hospital [address]Siq: Number: Repository [id number] (HP) Date:1719-80-27SD [place] [address]WP: 09/13/2018 Secondary NOT GIVENUNK [place] Insurance:SELF PAY [facility] Number: Effective Repository Date:2018-09-05 09/12/2018 JOSÉ MIGUEL Markham Primary IVA Ronit [place] [id number] [place] Insurance:MEDICAL MAIBACHDOB: [facility] 2825-18-61YNZAcoma-Canonc[facility] [address]Gna: Number: Repository [id number] (HP) Date:6106-25-43KP [place] [address]01[address]WP: 09/12/2018 Secondary NOT GIVENUNK [place] Insurance:SELF PAY [facility] Number: Effective Repository Date:2018-09-05 09/11/2018 JOSÉ MIGUEL Markham Primary IVA Ronit [place] [id number] [place] Insurance:MEDICAL MAIBADOB: [facility] [id number]-Canoncito-[facility] [address]Fxq: Number: Repository [id number] (HP) Date:8815-00-49OW [address] [address]JD: 09/11/2018 Secondary NOT GIVENUNK [place] Insurance:SELF PAY [facility] Number: Effective Repository Date:2018-09-05 09/10/2018 JOSÉ MIGUEL Markham Primary IVA Larry [id number] [place] Insurance:MEDICAL MAIBACHDOB: [facility] [id number] [place] [address]Chy: Number: Repository [id number] (HP) Date:6091-65-20CI [place] [address]WP: 09/10/2018 Secondary NOT GIVENUNK [place] Insurance:SELF PAY [facility] Number: Effective Repository Date:2018-09-05 09/09/2018 JOSÉ MIGUEL Rashi Primary IVA Larry [id number] [place] Insurance:MEDICAL MAIBACHDOB: [facility] [id number]-Canoncito-[facility] [address]Gmj: Number: Repository [id number] (HP) Date:0583-00-67OW [place] [address]WP: 09/09/2018 Secondary NOT GIVENUNK [place] Insurance:SELF PAY [facility] Number: Effective Repository Date:2018-09-05 08/29/2018 JOSÉ MIGUEL Markham Primary IVA Larry [id number] [place] Insurance:MEDICAL MAIBACHDOB: [facility] 4994-75-04ZJFAcoma-Canoncito-Lag[facility] Hospital [address]Fkx: Number: Repository [id number] (HP) Date:2855-11-10BW [place] [address]WP: 08/29/2018 Secondary NOT GIVENUNK [place] Insurance:SELF PAY [facility] Number: Effective Repository Date:2018-08-29 08/26/2018 JOSÉ MIGUEL Markham Primary IVA Larry [id number] [place] Insurance:MEDICAL MAIBACHDOB: [facility] [id number] [place] [address]Nyf: Number: Repository [id number] (HP) Date:6466-34-67EU [address] [address]ZC: 08/26/2018 Secondary NOT GIVENUNK [place] Insurance:SELF PAY [facility] Number: Effective Repository Date:2018-07-31 08/06/2018 JOSÉ MIGUEL Markham Primary IVA Ronit [place] [id number] [place] Insurance:MEDICAL MAIBACHDOB: [facility] [id number]-Canoncito-Lag[facility] Hospital [address]Lrj: Number: Repository [id number] (HP) Date:7202-45-64DZ [place] [address]WP: 08/06/2018 Secondary NOT GIVENUNK [place] Insurance:SELF PAY [facility] Number: Effective Repository Date:2018-08-05 08/02/2018 JOSÉ MIGUEL Markham Primary IVA Ronit [place] [id number] [place] Insurance:MEDICAL MAIBACHDOB: [facility] 7529-38-88UKBAcoma-Canoncito-Laguna Hospital [address]Qsx: Number: Repository [id number] (HP) Date:0490-89-49WE [place] [address]WP: 08/02/2018 Secondary NOT GIVENUNK [place] Insurance:SELF PAY [facility] Number: Effective Repository Date:2018-07-26 08/01/2018 JOSÉ MIGUEL Markham Primary IVA Larry [id number] [place] Insurance:MEDICAL MAIBACHDOB: [facility] 9059-26-61OEXAcoma-Canoncito-Laguna Hospital [address]Fhk: Number: Repository [id number] (HP) Date:8236-52-94JE [address] [address]QW: 08/01/2018 Secondary NOT GIVENUNK [place] Insurance:SELF PAY [facility] Number: Effective Repository Date:2018-07-26 07/31/2018 JOSÉ MIGUEL J Primary IVA Ronit [place] [id number] [place] Insurance:MEDICAL MAIBACHDOB: [facility] [id number] [place] [address]Rou: Number: Repository [id number] (HP) Date:8133-28-65VS [address] [place] [address]NX: 07/31/2018 Secondary NOT GIVENUNK [place] Insurance:SELF PAY [facility] Number: Effective Repository Date:2018-07-26 07/30/2018 JOSÉ MIGUEL J Primary IVA Ronit [place] [id number] [place] Insurance:MEDICAL MAIBACHDOB: [facility] 7979-26-76MFXAcoma-Canoncito-[facility] Hospital [address]Veu: Number: Repository [id number] (HP) Date:3225-36-12HF [address] [place] [address]BL: 07/30/2018 Secondary NOT GIVENUNK [place] Insurance:SELF PAY [facility] Number: Effective Repository Date:2018-07-26 07/29/2018 JOSÉ MIGUEL Markham Primary IVA Cottrell [place] [id number] [place] Insurance:MEDICAL MAIBACHDOB: [facility] 6822-70-58FVIAcoma-Canoncito-Laguna Hospital [address]Gfq: Number: Repository [id number] (HP) Date:4191-89-23JN [place] [address]WP: 07/29/2018 Secondary NOT GIVENUNK [place] Insurance:SELF PAY [facility] Number: Effective Repository Date:2018-07-26 07/23/2018 JOSÉ MIGUEL J Primary IVA Ronit [place] [id number] [place] Insurance:MEDICAL MAIBACHDOB: [facility] [id number]-Canoncito-[facility] Hospital [address]Nkm: Number: Repository [id number] (HP) Date:3100-62-57PR [place] [address]WP: 07/23/2018 Secondary NOT GIVENUNK [place] Insurance:SELF PAY [facility] Number: Effective Repository Date:2018-07-02 07/12/2018 JOSÉ MIGUEL Markham Primary IVA Larry [id number] [place] Insurance:MEDICAL MAIBACHDOB: [facility] [id number]-Canoncito-Laguna Hospital [address]Nuo: Number: Repository [id number] (HP) Date:9408-03-65FI [address] [address]YK: 07/12/2018 Secondary NOT GIVENUNK [place] Insurance:SELF PAY [facility] Number: Effective Repository Date:2018-06-21 07/11/2018 JOSÉ MIGUEL Markham Primary IVA Larry [id number] [place] Insurance:MEDICAL MAIBACHDOB: [facility] 5140-21-14UWTAcoma-Canoncito-Lag[facility] Hospital [address]Ahr: Number: Repository [id number] (HP) Date:1993-50-91EQ [address] [address]JJ: 07/11/2018 Secondary NOT GIVENUNK [place] Insurance:SELF PAY [facility] Number: Effective Repository Date:2018-06-21 07/10/2018 JOSÉ MIGUEL Markham Primary IVA Larry [id number] [place] Insurance:MEDICAL MAIBACHDOB: [facility] [id number]-Canoncito-Lag[facility] Hospital [address]Rgy: Number: Repository [id number] (HP) Date:2596-27-99JA [address] [address]JD: 07/10/2018 Secondary NOT GIVENUNK [place] Insurance:SELF PAY [facility] Number: Effective Repository Date:2018-06-21 07/09/2018 JOSÉ MIGUEL Markham Primary IVA Ronit [place] [id number] [place] Insurance:MEDICAL MAIBACHDOB: [facility] [id number] [place] [address]Fgf: Number: Repository [id number] (HP) Date:7769-11-76XO [address] [address]LX: 07/09/2018 Secondary NOT GIVENUNK [place] Insurance:SELF PAY [facility] Number: Effective Repository Date:2018-06-21 07/08/2018 JOSÉ MIGUEL Rashi Primary IVA Cottrell [place] [id number] [place] Insurance:MEDICAL MAIBADOB: [facility] [id number]-Canoncito-Lag[facility] Hospital [address]Ddh: Number: Repository [id number] (HP) Date:1256-51-05AQ [place] [address]WP: 07/08/2018 Secondary NOT GIVENUNK [place] Insurance:SELF PAY [facility] Number: Effective Repository Date:2018-06-21 06/26/2018 JOSÉ MIGUEL Markham Primary IVA [place]rell [place] [id number] [place] Insurance:MEDICAL MAIBACHDOB: [facility] 0477-97-02BBIAcoma-Canoncito-[facility] [address]Tal: Number: Repository [id number] (HP) Date:6601-89-53AJ [place] [address]WP: 06/26/2018 Secondary NOT GIVENUNK [place] Insurance:SELF PAY [facility] Number: Effective Repository Date:2018-05-30 06/21/2018 JOSÉ MIGUEL Rashi Primary IVA Ronit [place] [id number] [place] Insurance:MEDICAL MAIBACHDOB: [facility] 0485-09-71OHVAcoma-Canoncito-Laguna Hospital [address]Tkq: Number: Repository [id number] (HP) Date:7414-19-71YM [place] [address]WP: 06/21/2018 Secondary NOT GIVENUNK [place] Insurance:SELF PAY [facility] Number: Effective Repository Date:2018-05-27 06/20/2018 JOSÉ MIGUEL Markham Primary IVA Larry [id number] [place] Insurance:MEDICAL MAIBACHDOB: [facility] 5620-67-57HATAcoma-Canoncito-Lag[facility] Hospital [address]Nij: Number: Repository [id number] (HP) Date:6134-03-65TK [address] [address]VG: 06/20/2018 Secondary NOT GIVENUNK [place] Insurance:SELF PAY [facility] Number: Effective Repository Date:2018-05-27 06/19/2018 JOSÉ MIGUEL Markham Primary IVA Larry [id number] [place] Insurance:MEDICAL MAIBACHDOB: [facility] 5964-84-84SIWAcoma-Canoncito-[facility] Hospital [address]Gvz: Number: Repository [id number] (HP) Date:6503-26-95LQ [address] [address]ZX: 06/19/2018 Secondary NOT GIVENUNK [place] Insurance:SELF PAY [facility] Number: Effective Repository Date:2018-05-27 06/18/2018 JOSÉ MIGUEL Markham Primary IVA Larry [id number] [place] Insurance:MEDICAL MAIBACHDOB: [facility] [id number] [address]Ybb: Number: Repository [id number] (HP) Date:0755-46-60KX [address] [address]TB: 06/18/2018 Secondary NOT GIVENUNK [place] Insurance:SELF PAY [facility] Number: Effective Repository Date:2018-05-27 06/17/2018 JOSÉ MIGUEL Rashi Primary IVA Ronit [place] [id number] [place] Insurance:MEDICAL MAIBACHDOB: [facility] 5291-06-91GOAAcoma-Canoncito-Lag[facility] Hospital [address]Eul: Number: Repository [id number] (HP) Date:9225-41-90DG [address] [address]ET: 06/17/2018 Secondary NOT GIVENUNK [place] Insurance:SELF PAY [facility] Number: Effective Repository Date:2018-05-24 05/24/2018 José Miguel Markham Primary IVA Ronit [place] [id number] [place] Insurance:MEDICAL MAIBACHDOB: [facility] 9132-76-48XHGAcoma-Canoncito-[facility] Hospital [address]Czv: Number: Repository [id number] (HP) Date:3274-77-08FJ [address] [address]UT: 05/24/2018 Secondary NOT GIVENUNK [place] Insurance:SELF PAY [facility] Number: Effective Repository Date:2018-04-18 05/23/2018 José Miguel Markham Primary IVA Ronit [place] [id number] [place] Insurance:MEDICAL MAIBACHDOB: [facility] 8891-38-93UDOAcoma-Canoncito-Laguna Hospital [address]Spf: Number: Repository [id number] (HP) Date:8591-61-92JV [address] [address]GQ: 05/23/2018 Secondary NOT GIVENUNK [place] Insurance:SELF PAY [facility] Number: Effective Repository Date:2018-04-18 05/22/2018 José Miguel Markham Primary IVA Ronit [place] [id number] [place] Insurance:MEDICAL MAIBADOB: [facility] 9939-75-81LJRAcoma-Canoncito-Lag[facility] Hospital [address]Fxv: Number: Repository [id number] (HP) Date:6305-25-23BZ [place] [address]WP: 05/22/2018 Secondary NOT GIVENUNK [place] Insurance:SELF PAY [facility] Number: Effective Repository Date:2018-04-18 05/21/2018 José Miguel Markham Primary IVA Larry [id number] [place] Insurance:MEDICAL MAIBACHDOB: [facility] 4441-80-22WURAcoma-Canoncito-Lag[facility] Hospital [address]Lfd: Number: Repository [id number] (HP) Date:1590-97-15HT [place] [address]WP: 05/21/2018 Secondary NOT GIVENUNK [place] Insurance:SELF PAY [facility] Number: Effective Repository Date:2018-04-18 05/20/2018 José Miguel Markham Primary IVA Larry [id number] [place] Insurance:MEDICAL MAIBACHDOB: [facility] 2379-68-86LIAAcoma-Canoncito-[facility] Hospital [address]Izk: Number: Repository [id number] (HP) Date:2411-75-82ZR [place] [address]WP: 05/20/2018 Secondary NOT GIVENUNK [place] Insurance:SELF PAY [facility] Number: Effective Repository Date:2018-04-18 05/18/2018 José Miguel Markham Primary IVA Larry [id number] [place] Insurance:MEDICAL MAIBACHDOB: [facility] 7695-85-80FZHAcoma-Canoncito-Laguna Hospital [address]Vri: Number: Repository [id number] (HP) Date:2066-80-13WW [place] [address]WP: 05/18/2018 Secondary NOT GIVENUNK [place] Insurance:SELF PAY [facility] Number: Effective Repository Date:2018-04-26 04/16/2018 José Miguel Markahm Primary IVA Ronit Larry [id number] [place] Insurance:[facility] 0271-59-51OYJAcoma-Canoncito-Lag[facility] [address]Icg: Number: Repository [id number] (HP) Date:9061-57-13CT [address] [place] [address]RF: 04/16/2018 Secondary NOT GIVENUNK [place] Insurance:SELF PAY [facility] Number: Effective Repository Date:2018-03-28 04/06/2018 José Miguel Rashi Primary IVA Ronit Larry [id number] [place] Insurance:MEDICAL MAIBACHDOB: [facility] [id number] [place] [address]Olq: Number: Repository [id number] (HP) Date:7787-20-46FE [address] [address]VB: 04/06/2018 Secondary NOT GIVENUNK [place] Insurance:SELF PAY [facility] Number: Effective Repository Date:2018-03-07 04/05/2018 José Miguel J Primary IVA Ronit Lrary [id number] [place] Insurance:MEDICAL MAIBACHDOB: [facility] [id number]-Canoncito-Laguna Hospital [address]Quj: Number: Repository [id number] (HP) Date:9736-21-74U[address] [address]ND: 04/05/2018 Secondary NOT GIVENUNK [place] Insurance:SELF PAY [facility] Number: Effective Repository Date:2018-03-07 04/04/2018 José Miguel Markham Primary IVA Ronit Larry [id number] [place] Insurance:MEDICAL MAIBADOB: [facility] 5780-31-84BBOAcoma-Canoncito-Laguna Hospital [address]Dmq: Number: Repository [id number] (HP) Date:2550-19-21XY [address] [address]XC: 04/04/2018 Secondary NOT GIVENUNK [place] Insurance:SELF PAY [facility] Number: Effective Repository Date:2018-03-07 04/03/2018 José Miguel Markham Primary IVA Larry [id number] [place] Insurance:MEDICAL MAIBACHDOB: [facility] 1531-23-88XWCAcoma-Canoncito-Laguna Hospital [address]Wgk: Number: Repository [id number] (HP) Date:5607-48-27FL [place] [address]WP: 04/03/2018 Secondary NOT GIVENUNK [place] Insurance:SELF PAY [facility] Number: Effective Repository Date:2018-03-07 04/02/2018 José Miguel Larry [id number] [place] Insurance:MEDICAL MAIBACHDOB: [facility] [id number] [place] [address]Mvr: Number: Repository [id number] (HP) Date:7266-37-46HK [place] [address]WP: 04/02/2018 Secondary NOT GIVENUNK [place] Insurance:SELF PAY [facility] Number: Effective Repository Date:2018-03-07 03/27/2018 José Miguel Larry [id number] [place] Insurance:MEDICAL MAIBACHDOB: [facility] 3108-51-32LPEAcoma-Canoncito-Lag[facility] Hospital [address]Oyc: Number: Repository [id number] (HP) Date:4503-47-17KU [address] [address]WY: 03/27/2018 Secondary NOT GIVENUNK [place] Insurance:SELF PAY [facility] Number: Effective Repository Date:2018-02-26 03/08/2018 José Miguel Markham Primary IVA Larry [id number] [place] Insurance:MEDICAL MAIBACHDOB: [facility] 7224-14-34ENNAcoma-Canoncito-Laguna Hospital [address]Pwp: Number: Repository [id number] (HP) Date:7966-64-11OY [address] [address]BP: 03/08/2018 Secondary NOT GIVENUNK [place] Insurance:SELF PAY [facility] Number: Effective Repository Date:2018-02-18 03/07/2018 José Miguel Markham Primary IVA Ronit Larry [id number] [place] Insurance:MEDICAL MAIBACHDOB: [facility] 6241-03-79VHGAcoma-Canoncito-Laguna Hospital [address]Tqn: Number: Repository [id number] (HP) Date:4806-44-96LZ [place] [address]WP: 03/07/2018 Secondary NOT GIVENUNK [place] Insurance:SELF PAY [facility] Number: Effective Repository Date:2018-02-18 03/06/2018 José Miguel Markham Primary IVA Ronit Larry [id number] [place] Insurance:MEDICAL MAIBACHDOB: [facility] 4664-33-08JSZAcoma-Canoncito-Laguna Hospital [address]Hxp: Number: Repository [id number] (HP) Date:5326-54-77IM [address] [address]DB: 03/06/2018 Secondary NOT GIVENUNK [place] Insurance:SELF PAY [facility] Number: Effective Repository Date:2018-02-18 03/05/2018 José Miguel Markham Primary IVA Ronit Larry [id number] [place] Insurance:MEDICAL MAIBACHDOB: [facility] 5579-19-99ROFAcoma-Canoncito-Laguna Hospital [address]Lox: Number: Repository [id number] (HP) Date:0538-23-15AH [address] [address]UN: 03/05/2018 Secondary NOT GIVENUNK [place] Insurance:SELF PAY [facility] Number: Effective Repository Date:2018-02-18 03/04/2018 José Miguel Markham Primary IVA Larry [id number] [place] Insurance:MEDICAL MAIBACHDOB: [facility] [id number] [place] [address]Obc: Number: Repository [id number] (HP) Date:3005-80-57YF [address] [place], [place] [address]WP: 03/04/2018 Secondary NOT GIVENUNK [place] Insurance:SELF PAY [facility] Number: Effective Repository Date:2018-02-18 02/13/2018 José Miguel Markham Primary IVA Larry [id number] [place] Insurance:MEDICAL MAIBACHDOB: [facility] [id number] [place] [address]Ion: Number: Repository [id number] (HP) Date:2053-26-55OM [address] [place] [address]ZT: 02/13/2018 Secondary NOT GIVENUNK [place] Insurance:SELF PAY [facility] Number: Effective Repository Date:2018-02-12 02/11/2018 José Miguel Larry [id number] [place] Insurance:MEDICAL MAIBACHDOB: [facility] 1897-41-01YWJ [place] [address]Agx: Number: Repository [id number] (HP) Date:0768-36-50QH [address] [place] [address]ZY: 02/11/2018 Secondary NOT GIVENUNK [place] Insurance:SELF PAY [facility] Number: Effective Repository Date:2018-01-28 02/08/2018 José Miguel Markham Primary IVA Larry [id number] [place] Insurance:MEDICAL MAIBACHDOB: [facility] [id number]-Canoncito-Lag[facility] Hospital [address]Fmy: Number: Repository [id number] (HP) Date:3135-59-87KW [address] [address]RM: 02/08/2018 Secondary NOT GIVENUNK [place] Insurance:SELF PAY [facility] Number: Effective Repository Date:2018-01-25 02/07/2018 José Miguel Markham Primary IVA Ronit Larry [id number] [place] Insurance:MEDICAL MAIBACHDOB: [facility] 7211-96-89PIGAcoma-Canoncito-Laguna Hospital [address]Gjs: Number: Repository [id number] (HP) Date:5713-66-76NW [address] [address]LC: 02/07/2018 Secondary NOT GIVENUNK [place] Insurance:SELF PAY [facility] Number: Effective Repository Date:2018-01-25 02/06/2018 José Miguel Markham Primary IVA Ronit Larry [id number] [place] Insurance:MEDICAL MAIBACHDOB: [facility] 8430-94-90SDHAcoma-Canoncito-Laguna Hospital [address]Hhr: Number: Repository [id number] (HP) Date:0929-88-53HN [address] [address]SN: 02/06/2018 Secondary NOT GIVENUNK [place] Insurance:SELF PAY [facility] Number: Effective Repository Date:2018-01-25 02/05/2018 José Miguel Markham Primary IVA Ronit Laron [id number] [place] Insurance:MEDICAL MAIBACHDOB: [facility] 6107-20-27AWGAcoma-Canoncito-Laguna Hospital [address]Eqh: Number: Repository [id number] (HP) Date:6977-51-84EA [address] [address]AM: 02/05/2018 Secondary NOT GIVENUNK [place] Insurance:SELF PAY [facility] Number: Effective Repository Date:2018-01-25 02/04/2018 José Miguel Markham Primary IVA Larry [id number] [place] Insurance:MEDICAL MAIBACHDOB: [facility] [id number] [facility] [place] [address]Vzw: Number: Repository [id number] (HP) Date:4803-78-43MY [address] [place], [place] [address]WP: 02/04/2018 Secondary NOT GIVENUNK [place] Insurance:SELF PAY [facility] Number: Effective Repository Date:2018-01-25 01/18/2018 José Miguel Markham Primary IVA Larry [id number] [place] Insurance:MEDICAL MAIBACHDOB: [facility] [id number] [facility] [place] [address]Esa: Number: Repository [id number] (HP) Date:4073-13-56SB [address] [place], [place] [address]WP: 01/18/2018 Secondary NOT GIVENUNK [place] Insurance:SELF PAY [facility] Number: Effective Repository Date:2018-01-17 01/17/2018 José Miguel Markham Primary IVA Larry [id number] [place] Insurance:MEDICAL MAIBACHDOB: [facility] [id number] [address]Mjt: Number: Repository [id number] (HP) Date:4312-72-19EU [address] [place], [place] [address]WP: 01/17/2018 Secondary NOT GIVENUNK [place] Insurance:SELF PAY [facility] Number: Effective Repository Date:2018-01-10 01/16/2018 José Miguel Markham Primary IVA Larry [id number] [place] Insurance:MEDICAL MAIBACHDOB: [facility] [id number] [address]Irm: Number: Repository [id number] (HP) Date:9051-30-01MH [address] [address]HR: 01/16/2018 Secondary NOT GIVENUNK [place] Insurance:SELF PAY [facility] Number: Effective Repository Date:2018-01-10 01/15/2018 José Miguel Markham Primary IVA Ronit Larry [id number] [place] Insurance:MEDICAL MAIBACHDOB: [facility] [id number] Number: Repository [address]Opp: 330 [id number] [phone] (HP) Date:2395-45-61OV [address] [address]WX: 01/15/2018 Secondary NOT GIVENUNK [place] Insurance:SELF PAY [facility] Number: Effective Repository Date:2018-01-10 01/14/2018 José Miguel Markham Primary IVA L [place] [id number] [place] Insurance:MEDICAL MAIBACHDOB: [facility] [id number] Number: Repository [address]Iwd: 330 [id number] [phone] (HP) Date:0123-64-87MD [address] [address]JW: 01/14/2018 Secondary NOT GIVENUNK [place] Insurance:SELF PAY [facility] Number: Effective Repository Date:2018-01-10 01/09/2018 José Miguel J Primary IVA L Laron [id number] [place] Insurance:MEDICAL MAIBADOB: [facility] [id number], [place] Number: Repository [address]Grf: 330 [id number] [phone] (HP) Date:5864-79-39FI [address] [address]XK: 01/09/2018 Secondary NOT GIVENUNK [place] Insurance:SELF PAY [facility] Number: Effective Repository Date:2017-12-27 01/03/2018 José Miguel Markham Primary IVA Ronit Larry [id number] [place] Insurance:MEDICAL MAIBACHDOB: [facility] [id number], [place] Number: Repository [address]Pvs: 330 [id number] [phone] (HP) Date:7792-13-67TL [address] [address]IW: 01/03/2018 Secondary NOT GIVENUNK [place] Insurance:SELF PAY [facility] Number: Effective Repository Date:2018-01-02 12/28/2017 José Miguel Markham Primary IVA Ronit Larry [id number] [place] Insurance:MEDICAL MAIBACHDOB: [facility] 2945-07-34NYJ[place], [place] Number: Repository [address]Vic: 330 [id number] [phone] (HP) Date:5503-43-02LQ [address] [address]CN: 12/28/2017 Secondary NOT GIVENUNK [place] Insurance:SELF PAY [facility] Number: Effective Repository Date:2017-12-07 12/27/2017 José Miguel J Primary IVA Ronit Larry [id number] [place] Insurance:MEDICAL MAIBACHDOB: [facility] [id number]-Canonc[facility] [address]Phb: Number: Repository [id number] (HP) Date:6275-40-65QV [address] [address]AB: 12/27/2017 Secondary NOT GIVENUNK [place] Insurance:SELF PAY [facility] Number: Effective Repository Date:2017-12-07 12/26/2017 José Miguel Markham Primary Insurance:[facility] Iva Ronit Laron [id number] [place] [facility] 5451-31-57HRAHel[place], [place] Number: Repository [address]Wjy: 330 [id number] [phone] (HP) Date:7863-63-74JF [address] [address]OFCLTWUKP, [place] [address]YZ: CHECK WEBSITE 12/26/2017 Secondary NOT GIVENUNK [place] Insurance:SELF PAY [facility] Number: Effective Repository Date:2017-12-07 12/25/2017 José Miguel Markham Primary Insurance:[facility] Iva Larry [id number] [facility] SERVICESPolic [id number], [place] Number: Repository [address]Lmo: 330 [id number] [phone] (HP) Date:9316-50-42FI [address] [address]QVZIRYOOT, [place] [address]PW: CHECK WEBSITE 12/25/2017 Secondary NOT GIVENUNK [place] Insurance:SELF PAY [facility] Number: Effective Repository Date:2017-12-07 12/24/2017 José Miguel Markham Primary Insurance:[facility] Iva Larry [id number] [facility] HospitalD[facility]: [facility] [id number], [place] Number: Repository [address]Pkd: 330 [id number] [phone] (HP) Date:4450-36-49NA [address] [address]KBPLKJIFU, [place] [address]EA: CHECK WEBSITE 12/24/2017 Secondary NOT GIVENUNK [place] Insurance:SELF PAY [facility] Number: Effective Repository Date:2017-12-07 12/19/2017 José Miguel Markham Primary Insurance:[facility] Iva Larry [id number] [facility] HospitalD[facility] [id number], [place] Number: Repository [address]Vhu: 330 [id number] [phone] (HP) Date:7942-74-67YN [address] [address]MYYKFDOWY, [place] [address]MY: CHECK WEBSITE 12/19/2017 Secondary NOT GIVENUNK [place] Insurance:SELF PAY [facility] Number: Effective Repository Date:2017-11-30 12/07/2017 José Miguel Markham Primary Insurance:[facility] Iva Larry [id number] [facility] SystemibachDOB: [facility] 9620-99-36YBPHelen, [place] Number: Repository [address]Uzv: 330 [id number] [phone] (HP) Date:5556-15-35UR [address] [address]SUKHPCVRB, [place] [address]MJ: CHECK WEBSITE 12/07/2017 Secondary NOT GIVENUNK [place] Insurance:SELF PAY [facility] Number: Effective Repository Date:2017-11-15 12/06/2017 José Miguel Markham Primary Insurance:[facility] Iva Larry [id number] [facility] 9651-54-16RPNHelen, [place] Number: Repository [address]Ozx: 330 [id number] [phone] (HP) Date:3057-32-73WE [address] [address]BDTXMXVNA, [place] [address]IN: CHECK WEBSITE 12/06/2017 Secondary NOT GIVENUNK [place] Insurance:SELF PAY [facility] Number: Effective Repository Date:2017-11-15 12/05/2017 José Miguel Markham Primary Insurance:[facility] Iva Larry [id number] [place] [facility]: [facility] 4134-35-60OUWHelen, [place] Number: Repository [address]Oxf: 330 [id number] [phone] (HP) Date:7649-02-09DA [address] [address]YPWJNCCMA, [place] [address]IQ: CHECK WEBSITE 12/05/2017 Secondary NOT GIVENUNK [place] Insurance:SELF PAY [facility] Number: Effective Repository Date:2017-11-15 12/04/2017 José Miguel Markham Primary Insurance:[facility] Iva Larry [id number] [facility]: [facility] 6704-76-82ZRUHelen, [place] Number: Repository [address]Exw: 330 [id number] [phone] (HP) Date:9509-36-99NX [address] [address]HMBTUGEOY, [place] [address]CP: CHECK WEBSITE 12/04/2017 Secondary NOT GIVENUNK [place] Insurance:SELF PAY [facility] Number: Effective Repository Date:2017-11-15 12/03/2017 José Miguel Markham Primary Insurance:[facility] Iva Larry [id number] [facility]: [facility] SERVICESDepartment [facility] 5343-47-11IIWHelen, [place] Number: Repository [address]Jdj: 330 [id number] [phone] (HP) Date:2748-35-22GS [address] [address]PIPGRBXCB, [place] [address]FO: CHECK WEBSITE 12/03/2017 Secondary NOT GIVENUNK [place] Insurance:SELF PAY [facility] Number: Effective Repository Date:2017-11-15 11/28/2017 José Miguel Markham Primary Insurance:[facility] Iva Goldbergoster [id number] [facility]: [facility] 4496-20-04MGXHelen, [place] Number: Repository [address]Wwy: 330 [id number] [phone] (HP) Date:9169-15-26GS [address] [address]ECEQWGBJI, [place] [address]PD: CHECK WEBSITE 11/28/2017 Secondary NOT GIVENUNK [place] Insurance:SELF PAY [facility] Number: Effective Repository Date:2017-10-29 11/16/2017 José Miguel Markham Primary Insurance:[facility] Iva Larry [id number] [facility]: [facility] 5153-18-23DHUHelen, [place] Number: Repository [address]Ltw: 330 [id number] [phone] (HP) Date:1759-99-98XO [address] [address]CGSNMZZWH, [place] [address]SR: CHECK WEBSITE 11/16/2017 Secondary NOT GIVENUNK [place] Insurance:SELF PAY [facility] Number: Effective Repository Date:2017-11-09 11/15/2017 José Miguel Markham Primary Insurance:[facility] Iva Larry [id number] [facility] HospitalD[facility]: [facility] 1123-17-84KPCHelen, [place] Number: Repository [address]Ktb: [id number] [phone] Date:0823-22-02WP [address] () [address]PJJYBHEYG, [place] [address]KS: CHECK WEBSITE 11/15/2017 Secondary NOT GIVENUNK [place] Insurance:SELF PAY [facility] Number: Effective Repository Date:2017-11-09 11/14/2017 José Miguel Markham Primary Insurance:[facility] Iva Larry [id number] [facility] HospitalD[facility]: [facility] 9410-76-62RHBHelen, [place] Number: Repository [address]Wju: [id number] [phone] Date:2738-56-04UI [address] () 25869XUAFZUBBL, [place] [address]QF: CHECK WEBSITE 11/14/2017 Secondary NOT GIVENUNK [place] Insurance:SELF PAY [facility] Number: Effective Repository Date:2017-11-09 11/13/2017 José Miguel Markham Primary Insurance:[facility] Iva Larry [id number] [facility] HospitalD[facility]: [facility] [id number], [place] Number: Repository [id number]: [id number] [phone] Date:3784-23-39XJ [address] () 16676UYFJEEDZX, [place] [address]JH: CHECK WEBSITE 11/13/2017 Secondary NOT GIVENUNK [place] Insurance:SELF PAY [facility] Number: Effective Repository Date:2017-11-09 11/12/2017 José Miguel Markham Primary Insurance:[facility] Iva Larry [id number] [facility] HospitalD[facility]: [facility] 2144-58-22NPOHelen, [place] Number: Repository [address]Dqv: 330 [id number] [phone] (HP) Date:0936-10-17SS [address] [address]KNCLRZTJW, [place] [address]UN: CHECK WEBSITE 11/12/2017 Secondary NOT GIVENUNK [place] Insurance:SELF PAY [facility] Number: Effective Repository Date:2017-07-05 11/06/2017 José Miguel Markham Primary Insurance:[facility] Iva Larry [id number] [facility]: [facility] 1124-25-10MJHHelen, [place] Number: Repository [address]Qit: [id number] [phone] Date:0078-38-90KM [address] () [address]YMOBGTPHV, [place] [address]TH: CHECK WEBSITE 11/06/2017 Secondary NOT GIVENUNK [place] Insurance:SELF PAY [facility] Number: Effective Repository Date:2017-10-18 10/25/2017 José Miguel Markham Primary Insurance:[facility] Iva Larry [id number] [facility] HospitalDOB: [facility] 1725-08-62RAMHelen, [place] Number: Repository [address]Pif: [id number] [phone] Date:8727-28-86FP [address] () [address]FXBKUTDCL, [place] [address]BK: CHECK WEBSITE 10/25/2017 Secondary NOT GIVENUNK [place] Insurance:SELF PAY [facility] Number: Effective Repository Date:2017-10-18 10/25/2017 José Miguel Markham Primary Insurance:[facility] Iva Larry [id number] [facility]: [facility] 2423-34-37YMMHelen, [place] Number: Repository [address]Ixe: (475) [id number] [phone] Date:0136-86-51YX [address] [address]GYTTMYHOE, [place] [address]KK: CHECK WEBSITE 10/25/2017 Secondary NOT GIVENUNK [place] Insurance:SELF PAY [facility] Number: Effective Repository Date:2017-10-25 10/17/2017 José Miguel Markham Primary Insurance:[facility] Iva Larry [id number] [facility]: [facility] SERVICES[facility] 4483-61-20EKPHelen, [place] Number: Repository [address]Yyr: [id number] [phone] Date:7932-10-66WX [address] (HP) [address]GTBBWMLYQ, [place] [address]XH: CHECK WEBSITE 10/17/2017 Secondary NOT GIVENUNK [place] Insurance:SELF PAY [facility] Number: Effective Repository Date:2017-07-05
== END ==
PROVIDERS: Family Provider Family Medicine; PCP Family Medicine; Referring Provider Obstetrics & Gynecology; Visit Provider Obstetrics & Gynecology
DX: N63.20 Unspecified lump in the left breast, unspecified quadrant (principal)
CPT/HCPCS: 76642; 77062; 77063; 77066; G0279

== ENCOUNTER → 2018-10-07 09:17 | Outpatient (CLI) | payer OTHER, SELFPAY ==
[2018-09-13 12:15] VITALS: BMI 31.4
[2018-09-26 06:01] VITALS: BMI 31.4
[2018-10-07 09:59] LABS: Absolute Lymphocyte Count 1.28 X10^3/ul (0.83-4.51); Absolute Neutrophil Count 2.3 X10^3/uL (2.0-7.7); Basophil# 0.02 X10^3/uL; Basophil% 0.5 % (0-1); Eosinophil# 0.05 X10^3/uL; Eosinophils% 1.2 % (0-5); Hematocrit 31.8 % (37-47); Hemoglobin 9.8 g/dl (12.0-15.0); Lymphocyte # 1.28 X10^3/ul (4.0); Lymphocyte % 30.3 % (19-41); Mean Corp Hgb Conc 30.8 g/gl (32-36); Mean Corpuscular Hgb 29.3 pg (27.0-32.0); Mean Corpuscular Volume 94.9 fL (81-99); Mean Platelet Vol. 9.6 fl (6.2-12.0); Monocyte# 0.58 X10^3/uL; Monocyte% 13.7 % (0-10); Neutrophil # 2.29 X10^3/uL (2.7-7.7); Neutrophil % 54.1 % (47-70); Platelet Count 546 K/mm3 (150-450); RBC Distribution Width SD 61.9 fl (35.1-43.9); Red Blood Count 3.35 M/mm3 (4.2-5.4); White Blood Count 4.2 K/mm3 (4.4-11.0)
[2018-10-07 10:05] LABS: POSITIVE COUNT NO; POSITIVE DIFFERENTIAL NO; POSITIVE MORPHOLOGY NO
[2018-10-07 10:15] LABS: ALB/GLOB Ratio 0.9 RATIO (0.9-2.4); AST(SGOT) 27 U/L (15-37); Alanine Aminotransfer ALT/SGPT 50 U/L (13-56); Albumin, Serum 3.6 g/dL (3.2-5.0); Alkaline Phosphatase 115 U/L (45-117); Anion Gap 8 (5-15); BUN 13 mg/dL (7-18); BUN/Creat Ratio 17.4 RATIO (10-20); Calcium,Total 8.9 mg/dL (8.5-10.1); Chloride 104 mmol/L (98-107); Creatinine, Serum 0.75 mg/dL (0.55-1.02); EST Glomerular Filtration Rate 84 mL/min (>60); Est Glom Filt Rate - Afr Amer 101 mL/min (>60); Globulin 3.8 g/dL (2.2-4.2); Glucose 94 mg/dL (74-106); Potassium 3.9 mmol/L (3.5-5.1); Protein, Total 7.4 g/dL (6.4-8.2); Sodium Level 143 mmol/L (136-145)
[2018-10-07 11:37] VITALS: BP 147/91; PULSE 78; RESP 16; TEMP 36.3; O2SAT 98; BMI 31.8
[2018-10-07 17:49] LABS: Xtra Tube EP Lab EXTRA TUBE
[2018-10-07 17:51] LABS: Xtra Tube EP Lab EXTRA TUBE
== END ==
PROVIDERS: Family Provider Family Medicine; PCP Family Medicine; Referring Provider Internal Medicine Hematology & Oncology; Visit Provider Internal Medicine Hematology & Oncology
DX: Z51.11 Encounter for antineoplastic chemotherapy (principal); C56.1 Malignant neoplasm of right ovary; C56.2 Malignant neoplasm of left ovary
CPT/HCPCS: 36591; 80053; 85025; 86304; 96367; 96413; 96417; J7050; A4216; J1453; J2405; J3490; J9035; J9351

== ENCOUNTER → 2018-10-08 13:18 | Outpatient (CLI) | payer OTHER, SELFPAY ==
[2018-09-17 13:49] VITALS: BMI 32.4
[2018-10-07 11:37] VITALS: BMI 31.8
[2018-10-08 13:44] VITALS: BP 149/83; PULSE 75; RESP 16; TEMP 36.4; O2SAT 98; BMI 31.8
--- OUTSIDE RECORDS SUMMARY | 2018-11-24 17:41 | XMS RPT_ITS ---
:1955 Author Organization [place] Support Name Relationship Address Phone JOSÉ MIGUEL CUEVA Unavailable [address] + [place] [address] R Unavailable Unavailable Unavailable JOSÉ MIGUEL CUEVA Unavailable [address] + [place] [address] R Unavailable Unavailable Unavailable JOSÉ MIGUEL CUEVA Unavailable [address] + [place] [address] R Unavailable Unavailable Unavailable JOSÉ MIGUEL CUEVA Unavailable [address] + [place] [address] R Unavailable Unavailable Unavailable JOSÉ MIGUEL CUEVA Unavailable [address] + [place] [address] R Unavailable Unavailable Unavailable JOSÉ MIGUEL CUEVA Unavailable [address] + [place] [address] R Unavailable Unavailable Unavailable JOSÉ MIGUEL CUEVA Unavailable [address] + [place] [address] R Unavailable Unavailable Unavailable JOSÉ MIGUEL CUEVA Unavailable [address] + [place] [address] R Unavailable Unavailable Unavailable JOSÉ MIGUEL CUEVA Unavailable [address] + [place] [address] R Unavailable Unavailable Unavailable JOSÉ MIGUEL CUEVA Unavailable [address] + [place] [address] R Unavailable Unavailable Unavailable JOSÉ MIGUEL CUEVA Unavailable [address] + [place] [address] R Unavailable Unavailable Unavailable JOSÉ MIGUEL CUEVA Unavailable [address] + [place] [address] R Unavailable Unavailable Unavailable MAIBACH, JOSÉ MIGUEL Unavailable [address] + [place] [address] R Unavailable Unavailable Unavailable MAIBACH, JOSÉ MIGUEL Unavailable [address] + [place] [address] R Unavailable Unavailable Unavailable MAIBACH, JOSÉ MIGUEL Unavailable [address] + [place] [address] R Unavailable Unavailable Unavailable MAIBACH, JOSÉ MIGUEL Unavailable [address] + [place] [address] R Unavailable Unavailable Unavailable MAIBACH, JOSÉ MIGUEL Unavailable [address] + [place] [address] R Unavailable Unavailable Unavailable MAIBACH, JOSÉ MIGUEL Unavailable [address] + [place] [address] R Unavailable Unavailable Unavailable MAIBACH, JOSÉ MIGUEL Unavailable [address] + [place] [address] R Unavailable Unavailable Unavailable MAIBACH, JOSÉ MIGUEL Unavailable [address] + [place] [address] R Unavailable Unavailable Unavailable MAIBACH, JOSÉ MIGUEL Unavailable [address] + [place] [address] R Unavailable Unavailable Unavailable MAIBACH, JOSÉ MIGUEL Unavailable [address] + [place] [address] R Unavailable Unavailable Unavailable MAIBACH, JOSÉ MIGUEL Unavailable [address] + [place] [address] R Unavailable Unavailable Unavailable MAIBACH, JOSÉ MIGUEL Unavailable [address] + [place] [address] R Unavailable Unavailable Unavailable MAIBACH, JOSÉ MIGUEL Unavailable [address] + [place] [address] R Unavailable Unavailable Unavailable MAIBACH, JOSÉ MIGUEL Unavailable [address] + [place] [address] R Unavailable Unavailable Unavailable MAIBACH, JOSÉ MIGUEL Unavailable [address] + [place] [address] R Unavailable Unavailable Unavailable MAIBACH, JOSÉ MIGUEL Unavailable [address] + [place] [address] R Unavailable Unavailable Unavailable MAIBACH JOSÉ MIGUEL Unavailable [address] + [place] [address] R Unavailable Unavailable Unavailable OSCAR CUEVAEN Unavailable [address] + [place] [address] R Unavailable Unavailable Unavailable MAYAMILCH, JOSÉ MIGUEL Unavailable [address] + [place] [address] R Unavailable Unavailable Unavailable MAIBACH, JOSÉ MIGUEL Unavailable [address] + [place] [address] R Unavailable Unavailable Unavailable MAIBACH, JOSÉ MIGUEL Unavailable [address] + [place] [address] R Unavailable Unavailable Unavailable MAIBACH, JOSÉ MIGUEL Unavailable [address] + [place] [address] R Unavailable Unavailable Unavailable ANAY JOSÉ MIGUEL Unavailable [address] + [place] [address] R Unavailable Unavailable Unavailable YVROSEIBACH, JOSÉ MIGUEL Unavailable [address] + [place] [address] R Unavailable Unavailable Unavailable ANAY JOSÉ MIGUEL Unavailable [address] + [place] [address] R Unavailable Unavailable Unavailable СВЕТЛАНАCH, JOSÉ MIGUEL Unavailable [address] + [place] [address] R Unavailable Unavailable Unavailable ANAY JOSÉ MIGUEL Unavailable [address] + [place] [address] R Unavailable Unavailable Unavailable YVROSEIBACH, JOSÉ MIGUEL Unavailable [address] + [place] [address] R Unavailable Unavailable Unavailable YVROSEIBACH, JOSÉ MIGUEL Unavailable [address] + [place] [address] R Unavailable Unavailable Unavailable YVROSEIBACH, JOSÉ MIGUEL Unavailable [address] + [place] [address] R Unavailable Unavailable Unavailable СВЕТЛАНАCH, JOSÉ MIGUEL Unavailable [address] + [place] [address] R Unavailable Unavailable Unavailable ANAY, JOSÉ MIGUEL Unavailable [address] + [place] [address] R Unavailable Unavailable Unavailable ANAY JOSÉ MIGUEL Unavailable [address] + [place] [address] R Unavailable Unavailable Unavailable MAIBACH JOSÉ MIGUEL Unavailable [address] + [place] [address] R Unavailable Unavailable Unavailable СВЕТЛАНАCH, JOSÉ MIGUEL Unavailable [address] + [place] [address] R Unavailable Unavailable Unavailable MAIBACH, JOSÉ MIGUEL Unavailable [address] + [place] [address] R Unavailable Unavailable Unavailable MAIBACH, JOSÉ MIGUEL Unavailable [address] + [place] [address] R Unavailable Unavailable Unavailable СВЕТЛАНАCH JOSÉ MIGUEL Unavailable [address] + [place] [address] R Unavailable Unavailable Unavailable ANAY JOSÉ MIGUEL Unavailable [address] + [place] [address] R Unavailable Unavailable Unavailable OSCAR CUEVAEN Unavailable [address] + [place] [address] R Unavailable Unavailable Unavailable OSCAR CUEVAEN Unavailable [address] + [place] [address] R Unavailable Unavailable Unavailable OSCAR CUEVAEN Unavailable [address] + [place] [address] R Unavailable Unavailable Unavailable СВЕТЛАНАCH JOSÉ MIGUEL Unavailable [address] + [place] [address] R Unavailable Unavailable Unavailable ANAY JOSÉ MIGUEL Unavailable [address] + [place] [address] R Unavailable Unavailable Unavailable YVROSEIBACH, JOSÉ MIGUEL Unavailable [address] + [place] [address] R Unavailable Unavailable Unavailable YVROSEIBACHOSCAREN Unavailable [address] + [place] [address] R Unavailable Unavailable Unavailable ANAY, JOSÉ MIGUEL Unavailable [address] + [place] [address] R Unavailable Unavailable Unavailable MAIBACH, JOSÉ MIGUEL Unavailable [address] + [place] [address] R Unavailable Unavailable Unavailable MAIBACH, JOSÉ MIGUEL Unavailable [address] + [place] [address] R Unavailable Unavailable Unavailable MAIBACH, JOSÉ MIGUEL Unavailable [address] + [place] [address] R Unavailable Unavailable Unavailable MAIBACH, JOSÉ MIGUEL Unavailable [address] + [place] [address] R Unavailable Unavailable Unavailable MAIBACH, JOSÉ MIGUEL Unavailable [address] + [place] [address] R Unavailable Unavailable Unavailable MAIBACH, JOSÉ MIGUEL Unavailable [address] + [place] [address] R Unavailable Unavailable Unavailable MAIBACH, JOSÉ MIGUEL Unavailable [address] + [place] [address] R Unavailable Unavailable Unavailable MAIBACH, JOSÉ MIGUEL Unavailable [address] + [place] [address] R Unavailable Unavailable Unavailable MAIBACH, JOSÉ MIGUEL Unavailable [address] + [place] [address] R Unavailable Unavailable Unavailable MAIBACH, JOSÉ MIGUEL Unavailable [address] + [place] [address] R Unavailable Unavailable Unavailable MAIBACH, JOSÉ MIGUEL Unavailable [address] + [place] [address] R Unavailable Unavailable Unavailable MAIBACH, JOSÉ MIGUEL Unavailable [address] + [place] [address] R Unavailable Unavailable Unavailable MAIBACH, JOSÉ MIGUEL Unavailable [address] + [place] [address] R Unavailable Unavailable Unavailable MAIBACH, JOSÉ MIGUEL Unavailable [address] + [place] [address] R Unavailable Unavailable Unavailable MAIBACH, JOSÉ MIGUEL Unavailable [address] + [place] [address] R Unavailable Unavailable Unavailable MAIBACH, JOSÉ MIGUEL Unavailable [address] + [place] [address] R Unavailable Unavailable Unavailable JOSÉ MIGUEL CUEVA Unavailable [address] + [place] [address] R Unavailable Unavailable Unavailable JOSÉ MIGUEL CUEVA Unavailable [address] + [place] [address] R Unavailable Unavailable Unavailable JOSÉ MIGUEL CUEVA Unavailable [address] + [place] [address] R Unavailable Unavailable Unavailable JOSÉ MIGUEL CUEVA Unavailable [address] + [place] [address] [facility] Unavailable [address] + [place] [address] Care Team Providers Name Role Phone DELPHINEI, OMAR Lucia Attending Unavailable MASCI, OMAR Lucia Referring Unavailable MASCI, OMAR Lucia Attending Unavailable MASCI, OMAR Lucia Referring Unavailable MASCI, OMAR Lucia Attending Unavailable MASCI, OMAR Lucia Referring Unavailable MASCI, OMAR Lucia Attending Unavailable MASCI, OMAR Lucia Referring Unavailable MASCI, OMAR Lucia Attending Unavailable MASCI, OMAR Lucia Referring Unavailable MICHENERCATIE Attending Unavailable MICHENERCATIE Referring Unavailable THELMATERRANCE Attending Unavailable MASCI, OMAR Lucia Referring Unavailable MASCI, OMAR Lucia Referring Unavailable MASCI, OMAR Lucia Referring Unavailable PAIGE QUEEN (DIRECTOR OF INSTITUTIONAL RESEARCH) Referring Unavailable THELMATERRANCE Referring Unavailable MASCI, OMAR Lucia Attending Unavailable MASCI, OMAR Lucia Referring Unavailable MASCI, OMAR Lucia Attending Unavailable MASCI, OMAR Lucia Referring Unavailable MASCI, OMAR Lucia Attending Unavailable MASCI, OMAR Lucia Referring Unavailable MASCI, OMAR Lucia Attending Unavailable MASCI, OMAR Lucia Referring Unavailable MASCI, OMAR Lucia Referring Unavailable MASCI, OMAR Lucia Referring Unavailable PURYSKOOMID S Admitting Unavailable PURYSKOOMID S Attending Unavailable TIARA BROWN (PA) Referring Unavailable Masci, Omar Attending Unavailable Masci, Omar Referring [facility]available Masci, Omar Attending Unavailable Masci, Omar Referring Unavailable [place], [place] [facility] Unavailable Masci, Omar Attending Unavailable [place] [place] [facility] Unavailable Masci, Omar Attending Unavailable Masci, Omar Referring Unavailable [place], [place] [facility] Unavailable Masci, Omar Attending Unavailable Masci, Omar Referring Unavailable [place], [place] [facility] Unavailable Masci, Omar Attending Unavailable Masci, Omar Referring Unavailable [place] Care Unavailable Masci, Omar Attending Unavailable Masci, Omar [facility]erring [facility] Masci, Omar Attending Unavailable Masci, Omar Referring [facility] Unavailable Masci, Omar Attending Unavailable Masci, Omar Referring Unavailable [place], [place] [facility] Unavailable Masci, Omar Attending Unavailable Masci, Omar Referring Unavailable [place], [place] [facility] Unavailable Masci, Omar Attending Unavailable Masci, Omar Referring Unavailable [facility], [facility] Care Unavailable Masci, Omar Attending Unavailable Masci, Omar Referring Unavailable [place], [place] [facility] Unavailable Masci, Omar Attending Unavailable Masci, Omar Referring Unavailable [facility], [facility] Care Unavailable Masci, Omar Attending Unavailable Masci, Omar Referring [facility] Unavailable Masci, Omar Attending Unavailable Masci, Omar Referring Unavailable [facility], [place] [facility] Unavailable Masci, Omar Attending Unavailable [...] Omar Attending Unavailable Masci, Omar Referring Unavailable [facility] Primary Care Unavailable Masci, Omar Attending Unavailable Masci, Omar Referring Unavailable [facility] Primary Care Unavailable Masci, Omar Attending Unavailable Masci, Omar Referring Unavailable [facility] Primary Care Unavailable Masci, Omar Attending Unavailable Masci, Omar Referring Unavailable [facility], [place] [facility] Unavailable Masci, Omar Attending Unavailable Masci, Omar Referring Unavailable [facility], [place] [facility] Unavailable Masci, Omar Attending Unavailable Masci, Omar Referring Unavailable [facility] Primary Care Unavailable Masci, Omar Attending Unavailable Masci, Omar Referring Unavailable [place], [place] [facility] Unavailable Masci, Omar Attending Unavailable Masci, Omar Referring [facility]available [facility] Unavailable Masci, Omar Attending Unavailable Masci, Omar Referring Unavailable [place], [place] [facility] Unavailable Masci, Omar Attending Unavailable Masci, Omar Referring Unavailable [place], [place] [facility] Unavailable Masci, Omar Attending Unavailable Masci, Omar Referring Unavailable [place], [place] [facility] Unavailable Masci, Omar Attending Unavailable Masci, Omar Referring Unavailable [place], [place] [facility] Unavailable Masci, Omar Attending Unavailable Masci, Omar Referring Unavailable [place], [place] [facility] Unavailable Masci, Omar Attending Unavailable Masci, Omar Referring Unavailable [facility], [place] [facility] Unavailable Masci, Omar Attending Unavailable Masci, Omar Referring [facility]available [facility] Unavailable Masci, Omar Attending Unavailable Masci, Omar Referring Unavailable [facility], [place] [facility] Unavailable Masci, Omar Attending Unavailable Masci, Omar Referring Unavailable [facility] Primary Care Unavailable Masci, Omar Attending Unavailable Masci, Omar Referring Unavailable [facility] Care Unavailable Masci, Omar Attending Unavailable Masci, Omar Referring Unavailable [facility], [place] [facility] Unavailable Masci, Omar Attending Unavailable Masci, Omar Referring Unavailable [facility] Care Unavailable Masci, Omar Attending Unavailable Masci, Omar Referring Unavailable [facility] Care Unavailable Masci, Omar Attending Unavailable Masci, Omar Referring Unavailable [facility] Primary Care Unavailable Masci, Omar Attending Unavailable Masci, Omar Referring Unavailable [facility] Primary Care Unavailable Masci, Omar Attending Unavailable Masci, Omar Referring Unavailable [facility] Primary Care Unavailable Masci, Omar Attending Unavailable Masci, Omar Referring Unavailable [facility] Primary Care Unavailable Masci, Omar Attending Unavailable Masci, Omar Referring Unavailable [facility] Primary Care Unavailable Masci, Omar Attending Unavailable Masci, Omar Referring Unavailable [facility] Primary Care Unavailable Masci, Omar Attending Unavailable Masci, Omar Referring Unavailable [facility], [place] [facility] Unavailable Masci, Omar Attending Unavailable Masci, Omar Referring Unavailable [facility] Primary Care Unavailable Masci, Omar Attending Unavailable Masci, Omar Referring Unavailable [place], [place] [facility] Unavailable Masci, Omar Attending Unavailable Masci, Omar Referring Unavailable [place], [place] [facility] Unavailable Masci, Omar Attending Unavailable Masci, Omar Referring Unavailable [place], [place] [facility] Unavailable Masci, Omar Attending Unavailable Masci, Omar Referring Unavailable [place], [place] [facility] Unavailable Masci, Omar Attending Unavailable Masci, Omar Referring Unavailable [place], [place] [facility] Unavailable Masci, Omar Attending Unavailable Masci, Omar Referring Unavailable [facility], [place] [facility] Unavailable Masci, Omar Attending Unavailable Masci, Omar Referring Unavailable [place], [place] [facility] Unavailable Masci, Omar Attending Unavailable Masci, Omar Referring Unavailable [facility], [place] [facility] Unavailable Masci, Omar Attending Unavailable Masci, Omar Referring Unavailable [facility], [place] [facility] Unavailable Masci, Omar Attending Unavailable Masci, Omar Referring Unavailable [place], [place] [facility] Unavailable Masci, Omar Attending Unavailable Masci, Omar Referring Unavailable [facility], [place] [facility] Unavailable Masci, Omar Attending Unavailable Masci, Omar Referring Unavailable [facility], [place] [facility] Unavailable Masci, Omar Attending Unavailable Masci, Omar Referring Unavailable [facility], [place] [facility] Unavailable Masci, Omar Attending Unavailable Masci, Omar Referring Unavailable [facility], [place] [facility] Unavailable Masci, Omar Attending Unavailable Masci, Omar Referring Unavailable [facility] Primary Care Unavailable Masci, Omar Attending Unavailable Masci, Moar Referring Unavailable [facility], [place] [facility] Unavailable Masci, Omar Attending Unavailable Masci, Omar Referring Unavailable [facility], [place] [facility] Unavailable Masci, Omar Attending Unavailable Masci, Omar Referring Unavailable [facility], [place] [facility] Unavailable Masci, Omar Attending Unavailable Masci, Omar Referring Unavailable [facility], [place] Primary Care Unavailable MarcanthonyMarcy Attending Unavailable [place], [place] Referring Unavailable Marcanthony, Marcy Attending Unavailable MarcanthonyMarcy Referring Unavailable [facility], [place] [facility] Unavailable Masci, Omar Attending Unavailable Masci, Omar Referring Unavailable [facility], [place] [facility] Unavailable Masci, Omar Attending Unavailable Masci, Omar Referring Unavailable [facility], [place] [facility] Unavailable Masci, Omar Attending Unavailable Masci, Omar Referring Unavailable [facility], [place] [facility] Unavailable Masci, Omar Attending Unavailable Masci, Omar Referring [facility] Unavailable Ginny, Omar Attending Unavailable Mascjaimie, Omar Referring Unavailable [facility] Primary Care Unavailable Mascjaimie, Omar Attending Unavailable Mascjaimie, Omar Referring Unavailable [facility] [place] [facility] Unavailable PROBLEMS PROBLEMS DATE TYPE CONDITION / CODE ATTENDING STATUS SOURCE 10/28/2018 Active Malignant neoplasm of NA Active [place] unspecified ovary / Clinic Main C56.9(ICD-10) [facility] Rep[facility] 10/28/2018 Active Disseminated malignant NA Active [place] neoplasm, unspecified Clinic Main / C80.0(ICD-10) [facility] Repository 10/28/2018 Active Unknown / UNK(Unknown) NA Active [facility] Main [facility] Rep[facility] 09/17/2018 Unknown N63.20 - Unspecified Marcanthony, Active [place] lump in the left [facility] breast, unspecified Hospital quadrant / Repository N63.20(ICD-10) 08/29/2018 Unknown C56.1 - Malignant Omar Gross Active [facility] right [facility] ovary / C56.1(ICD-10) Hospital Repository 07/04/2018 Active Nausea with vomiting, OMAR GROSS Active [place] unspecified / Clinic Main R11.2(ICD-10) [facility] Repository 07/04/2018 Active Adverse effect of OMAR GROSS Active [place] antineoplastic and Clinic Main immunosuppressive [facility] drugs, initial Repository encounter / T45.1X5A(ICD-10) 02/15/2016 Active Malignant neoplasm of NA Active [place] right ovary / Clinic Main C56.1(ICD-10) [facility] Repository 02/15/2016 Active Malignant neoplasm of NA [facility] left ovary / Clinic Main C56.2(ICD-10) [facility] Repository 04/24/2018 Unknown Z51.11 - Encounter for Omar Gross Active [place] antineoplastic [facility] chemotherapy / Hospital Z51.11(ICD-10) Repository 04/24/2018 Unknown C56.9 - Malignant Omar Gross Active [facility]oplasm of [facility] unspecified ovary / Hospital C56.9(ICD-10) Repository PROCEDURES PROCEDURES No Procedure Records FoundRESULTS RESULTS CBC W/DIFF, AUTOMATED Collected: 11/19/2018 Status: F Source: [place] [facility] TYPE CODE TESTS RESULT OUT OF RANGE REFERENCE UNITS LAB L100.1000 4.4-11.0 K/mm3 Normal WBC 9.1 LAB L100.1200 4.2-5.4 M/mm3 Low RBC 3.68 LAB L100.1300 12.0-15.0 g/dl Low HGB 10.8 LAB L100.1400 37-47 % Low HCT 34.6 LAB L100.1500 81-99 fL Normal MCV 94.0 LAB L100.1600 27.0-32.0 pg Normal MCH 29.3 LAB L100.1700 32-36 g/gl Low MCHC 31.2 LAB L100.1810 11.6-14.6 % High RDW CV 17.4 LAB L100.1820 35.1-43.9 fl High RDW SD 59.9 LAB L100.1900 150-450 K/mm3 Normal PLT 268 LAB L100.2000 6.2-12.0 fl Normal MPV 10.1 LAB L100.2100 47-70 % High NEUT% 71.6 LAB L100.2200 19-41 % Low LY% 18.6 LAB L100.2300 0-10 % Normal MONO% 4.6 LAB L100.2400 0-5 % Normal EO% 4.4 LAB L100.2500 0-1 % Normal BASO% 0.3 LAB L100.2550 0.0-0.9 % Normal IM GRAN % 0.500 Result Comment: IG% - Immature Granulocytes (promyelocytes, myelocytes and metamyelocytes) > 1% indicates that a LEFT SHIFT is Present. LAB L100.2620 2.0-7.7 X10 3/uL Normal Absolute Neut 6.5 LAB L100.2720 0.83-4.51 X10 3/ul Normal Absolute Lymph 1.70 Performed By: #### L100.0100 #### [facility] [address] [place], [place], [id number] COMPREHENSIVE METABOLIC Collected: 11/19/2018 Status: F [facility] REPOSITORY TYPE CODE TESTS RESULT OUT OF RANGE REFERENCE UNITS LAB L501.0100 74-106 mg/dL Normal GLU 94 Result Comment: Please note revised GLUCOSE reference range effective 2017. LAB L501.1000 7-18 mg/dL Normal BUN 17 LAB L501.1100 0.55-1.02 mg/dL Normal CREAT,SERUM 0.82 Result Comment: The validity of the calculated GFR AND GFRAA in patients over 70 years has not been determined. Clinical correlation is essential. LAB L501.1110 >60 mL/min Normal EST GFR 76 Result Comment: Non- GFR Calc LAB L501.1115 >60 mL/min Normal EST GFR - AA 91 Result Comment: GFR Calc LAB L501.1300 10-20 RATIO High BUN/CRE 20.8 LAB L501.1500 6.4-8.2 g/dL T Normal PROT 7.8 LAB L501.1800 3.2-5.0 g/dL Normal ALB 3.9 LAB L501.1950 2.2-4.2 g/dL Normal GLOB 3.9 LAB L501.2000 0.9-2.4 RATIO Normal A/G 1.0 LAB L501.2200 8.5-10.1 mg/dL CA Normal 8.7 LAB L501.4100 15-37 U/L Normal AST 26 LAB L501.4305 45-117 U/L High ALK P 126 LAB L501.4405 13-56 U/L Normal ALT 39 LAB L501.4600 0.20-1.00 mg/dL T Normal BILI 0.20 LAB L501.5300 136-145 mmol/L NA Normal 139 LAB L501.5600 3.5-5.1 mmol/L K Normal 3.7 LAB L501.5900 98-107 mmol/L CL Normal 105 LAB L501.6100 21.0-32.0 mmol/L Normal CO2 27.0 LAB L501.6200 5-15 Normal GAP 7 Performed By: #### L500.4050 #### [facility] [address] [place], [address] NURSING PROG Observed: 11/04/2018 Status: COMPLETED Source: [place] 8:00 PM [facility] REPOSITORY O ID: [id number] Author: Amara Bishop) MARTELL De La Torre Service: (none) Author Type: LICENSED NURSE Type: Nursing Progress Note Filed: 11/05/2018 8:43 AM Note Text: Radiology post procedure telephone follow-up call attempted. Left voice message requesting a return phone call to [phone] if experiencing any problems or concerns. After hours please call [phone] and ask for pager [phone] SURGICAL PATHOLOGY Observed: 11/04/2018 Status: C Source: [place] 4:00 PM [facility] REPOSITORY ADDENDUM PRESENT Specimen originated from [facility] Specimen #: [id number] Submitting Physician: OMID GEE MD FINAL DIAGNOSIS Peritoneal nodule, biopsy - High grade adenocarcinoma, most consistent with serous carcinoma (see comment). SMS 11/05/2018 COMMENT A selected slide was reviewed in gynecologic pathology consensus conference (via telepathology) by Paola Lawrence, and Radha Pace with concurrence. The specimen will be sent for PDL-1 and FoundationOne testing and the results will be reported separately. Joanne Martínez M.D. (Electronic Signature) SPECIMEN SUBMITTED A: PERITONEAL NODULE, BIOPSY ADDENDUM Date Ordered: 11/06/2018 Date Reported: 11/06/2018 Immunostaining with PD-L1 antibody (22C3) was performed. Host stromal lymphocytes and histiocytes are diffusely strongly positive (>90%), but tumor cells are negative for PD-L1 (0%).The combined PD-L1 score is approximately 40%. Addendum Pathologist: Jerome Carter M.D. Ph.D. Electronic Signature ADDITIONAL PROCEDURE(S) PD-L1 BY IMMUNOHISTOCHEMISTRY Date Ordered: 11/05/2018 Date Reported: PENDING CLINICAL DATA 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; PDL1 and FoundationOne testing requested GROSS DESCRIPTION A. Received in formalin are multiple segments of cylindrical tissue aggregating to 1.6 x 0.5 x 0.1 cm, gonzalez and of a soft and friable consistency. Totally submitted in formalin in one cassette. Gross examination performed at [facility], [address] [place] [address] 11/04/2018 9:34:25 PM Date of Report: 11/05/2018 Date of Procedure: 11/04/2018 Date of Receipt: 11/04/2018 Submitted by: OMID GEE MD Additional Physician(s): OMAR GROSS M.D. ([id number]) Location: [facility] Diagnostic [place] [address] BIOPSY ABD/RETROPERIT Observed: 11/04/2018 Status: F Source: [place] 3:48 PM [facility] REPOSITORY * * *Final Report* * * DATE OF EXAM: Nov 04 2018 3:48PM [facility] 2018 - CT BIOPSY ABD/RETROPERIT MASS / PROCEDURE REASON: multiple diagnoses * * * * Physician Interpretation * * * * PROCEDURE PERFORMED: CT GUIDED PERITONEAL NODE BIOPSY ON 11/04/2018 PRE-PROCEDURE DIAGNOSIS: ovarian cancer with carcinomatosis POST-PROCEDURE DIAGNOSIS: ovarian cancer with carcinomatosis INDICATION FOR PROCEDURE: The patient is a 63 years old Female who presents with ovarian cancer with mets to the liver and omental/peritoneal nodules. STAFF RADIOLOGIST: Dr. Gee ACTIVITY SPECIALIST(S): Mariana Wood APRN, CNP CONSENT: The risks, benefits, treatment options, potential complications and personnel involved were discussed with the patient and family. All questions were answered and consent was obtained. The patient and family indicated they were willing to proceed. The staff physician personally verified consent. TIME OUT: A time out was performed immediately prior to procedure start with the nursing, anesthesia and interventional team, correctly identifying the patient name, date of , procedure, anatomy (including marking of site and side), patient position, procedure consent form, relevant diagnostic and radiology test results, antibiotic administration (when indicated), safety precautions, and procedure-specific equipment needs. RESULT: PROCEDURE: After performing the time out, the largest omental/peritoneal nodule in the RIGHT upper quadrant was localized under CT. The RIGHT upper quadrant was prepped and draped in the usual sterile fashion. Under direct CT guidance, a 17 gauge trochar needle was advanced to the peritoneal nodule. Through the trochar, 4 passes were made into the omental nodule using an 18 gauge cutting needle. The procedure was performed by the: the research assistant member, and the attending radiologist personally supervised the entire procedure. The attending radiologist performed the following procedural activities: personally supervised the entire procedure ANESTHESIA/SEDATION: Conscious sedation was achieved using 2 mg of versed and 50 mcg of fentanyl intravenously. Local anesthesia was achieved utilizing 20 cc 2% percent lidocaine. Vital signs were monitored by the nurse. START TIME/TIMEOUT TIME: 15:19 END TIME: 15:33 INTRA-SERVICE (SEDATION) TIME: 17 minutes PATIENT MONITORING: The staff physician personally supervised and directed an independent trained observer who assisted in monitoring the patient?s level of consciousness and physiological status throughout the procedure. COMPLICATIONS: None SIGN-OUT DISCUSSION: Completed ESTIMATED BLOOD LOSS: Minimal CONTRAST: None CT ABDOMEN AND PELVIS RADIATION DOSE: Dose-length product (DLP) = 154 mGy*cm. SPECIMENS: 4 core biopsy specimen(s) was/were sent in formalin to surgical pathology (PDL1 and FoundationOne testing requested) BIOPSY DEVICE: 18 gauge Biopinc core biopsy needle. IMPRESSION: CT GUIDED OMENTAL MASS BIOPSY DESCRIBED v 10/31/16 Jordan Man: PSCB Transcribe Date/Time: Nov 04 2018 3:49P Dictated by : OMID GEE MD This examination was interpreted and the report reviewed and electronically signed by: OMID GEE MD on Nov 04 2018 4:34PM EST [id number] OP NOT Observed: 11/04/2018 Status: COMPLETED Source: [place] 3:46 PM [facility] REPOSITORY HNO ID: [id number] Author: Mariana Miller) Wood Service: Radiology Author Type: Nurse Practitioner Type: Brief Op Note Filed: 11/04/2018 3:47 PM Note Text: BRIEF OPERATIVE / PROCEDURE NOTE LOG ID: [id number] SURGERY/PROCEDURE DATE: 11/04/2018 INCISION/PROCEDURE START TIME: 3:19 PM INCISION CLOSE/PROCEDURE END TIME: 3:33 PM SURGEON(S)/PROCEDURALIST(S) AND ACTIVITY SPECIALIST(S): Surgeon(s) and Role: * Omid Oh Gerard - Primary Mariana Wood APRN DIRECTOR OF INSTITUTIONAL RESEARCH- Edi Programmer Analyst SURGERY/PROCEDURE(S): CT guided biopsy of peritoneal nodule ANESTHESIA: Procedural Sedation FINDINGS: nodule consistent with previous imaging ESTIMATED BLOOD LOSS: minimal SPECIMENS: four 18 gauge cores COMPLICATIONS: None PRE-OP/PRE-PROCEDURE DIAGNOSIS: 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 POST-OP/POST-PROCEDURE DIAGNOSIS: Same as above SIGNATURE: Mariana Wood APRN.CNP PATIENT NAME: Iva uCeva DATE: November 04, 2018 TIME: 3:46 PM PAGER/CONTACT #: [phone] PROGRESS Observed: 11/04/2018 Status: COMPLETED Source: [place] 3:44 PM [facility] REPOSITORY HNO ID: [id number] Author: AWA Stroud (Ct) Service: (none) Author Type: Clinical State Director Type: Progress Notes Filed: 11/04/2018 3:49 PM Note Text: Radiology Service Progress Note PATIENT NAME: Iva Cueva DATE OF SERVICE: November 04, 2018 TIME: 3:44 PM PATIENT IDENTITY VERIFICATION COMPLETED USING TWO (2) METHODS: Patient confirmed name verbally and Date of . PATIENT GENDER DATA: Female. status: : No status: NO. PATIENT RELEVANT IMPLANT DATA REVIEWED: Yes RADIOLOGY DEPARTMENT: CT; Exam(s) Completed: Biopsy PERIPHERAL IV DATA: Not applicable SIGNED BY: Vikash Silveira RT(R)CT November 04, 2018 3:44 PM PT ED Observed: 11/04/2018 Status: COMPLETED Source: [place] 2:47 PM [facility] REPOSITORY HNO ID: [id number] Author: Griselda KatzRn) TOMÁS Rodriguez Service: (none) Author Type: Registered Nurse Type: Patient Education Filed: 11/04/2018 4:04 PM Note Text: AMBULATORY PATIENT EDUCATION NOTE TOPIC: HEALTH PROMOTION: Complication prevention READINESS TO LEARN COGNITIVE ABILITY: Alert and oriented MOTIVATION TO LEARN: Interested FAMILY SUPPORT: High - Very involved in pt care INSTRUCTION PROVIDED TO: Patient PATIENT LEARNS BEST BY: Individual Instruction FACTORS AFFECTING LEARNING: None PHYSICAL LIMITATIONS AFFECTING LEARNING: None LEARNING RESPONSE DIAGNOSIS: Peritoneal mass METHOD OF INSTRUCTION: Individual instruction PATIENT / FAMILY RESPONSE: Verbalizes understanding of: POST-PROCEDURE INSTRUCTIONS-Correct actions to take to reduce post procedure complications FOLLOW-UP PLAN: Complete - No need for follow-up SUPPLEMENTAL MATERIAL: None REFERRAL (RECOMMENDATION): None Electronically Signed By: Griselda Mota In Department: HOSP MAIN [id number] HISTORY PHYSICAL Observed: 11/04/2018 Status: COMPLETED Source: [place] 2:20 PM [facility] [place] REPOSITORY HNO ID: [id number] Author: Omid Gee Service: Radiology Author Type: Physician Type: HANDP Filed: 11/04/2018 2:21 PM Note Text: UPDATED PROCEDURAL SEDATION HISTORY AND PHYSICAL EXAMINATION SERVICE DATE: 11/04/2018 SERVICE TIME: 2:20 PM PHYSICAL EXAM MUST BE COMPLETED ON ADMISSION PROCEDURE SCHEDULED: Procedure(s) with comments: BIOPSY, ABDOMINAL MASS, PERCUTANEOUS NEEDLE (N/A) - CT BIOPSY PERITONEAL NODULE / DR. GROSS / LABS- TO BE DRAWN / RADIOLOGY ORDER PLACED: Radiology (1440h ago through future) Start Ordered 10/30/18 0000 IMAGING GUIDED BIOPSY ABDOMEN/RETROPERITONEAL MASS Routine Comments: Biopsy of peritoneal implant requested for PDL1 and FoundationOne testing. Core biopsy of nodules in lesser omentum just below liver feasible? 10/30/18 0917 The History and Physical (completed in the past 30 days) has been reviewed and the patient has been examined. The contents accurately reflect the patient's condition with the following additions or revisions since the HANDP was completed. ASA Class: ASA Class:: Patient with mild systemic disease Examination indicates no changes. AIRWAY: Airway Visualization of Uvula: Yes Mouth opening greater than 2 fingerbreadths: Yes Neck Full Range of Motion: Yes LUNGS: Negative, Lungs clear to auscultation, Good diaphragmatic excursion CARDIAC: Normal S1 and S2; no rubs, murmurs, or gallops Provisional Diagnosis/Treatment Plan: Imaging guided omental/peritoneal mass biopsy SEDATION GOAL: Moderate This HANDP can be found in the Electronic Medical Record dated 10/24/2018. SIGNATURE: Omid Gee MD PATIENT NAME: Iva Cueva DATE: November 04, 2018 TIME: 2:20 PM PAGER: [phone] CBC Collected: 11/01/2018 Status: F Source: [place] 1:16 PM [facility] REPOSITORY TYPE CODE TESTS RESULT OUT OF REFERENCE UNITS RANGE LAB WBC 3.70-11.00 k/uL WBC 6.59 LAB RBC 3.90-5.20 m/uL Low RBC 3.37 LAB HGB 11.5-15.5 g/dL Low Hemoglobin 10.3 LAB HCT 36.0-46.0 % Low Hematocrit 33.3 LAB MCV 80.0-100.0 fL MCV 98.8 LAB MCH 26.0-34.0 pG MCH 30.6 LAB MCHC 30.5-36.0 g/dL MCHC 30.9 LAB RDWCV 11.5-15.0 % RDW-CV High 19.1 LAB PLTCT 150-400 k/uL Platelet High Count 575 LAB MPV 9.0-12.7 fL MPV 10.0 LAB ABSNUC <0.01 k/uL Absolute nRBC <0.01 Performed By: #### CBC #### [facility] [address], [place] [address] PROTIME Collected: 11/01/2018 Status: F Source: [place] 1:15 PM [facility] REPOSITORY TYPE CODE TESTS RESULT OUT OF RANGE REFERENCE UNITS LAB PSEC 9.7-13.0 sec PT Sec 10.5 LAB INR 0.9-1.3 PT INR 1.0 Result Comment: Vitamin K Antagonist (VKA) Therapeutic Range: INR 2 to 3 (Target INR of 2.5) Note: For patients treated with VKA drugs, such as warfarin, the [place] [employer] 2012 Guideline recommends a therapeutic INR range of 2 to 3 (target INR of 2.5). This recommendation includes high-risk patients with antiphospholipid syndrome with previous arterial or venous thromboembolism, current-generation mechanical or bioprosthetic aortic heart valve replacement. Note: Patients with mechanical aortic valve replacement and additional risk factors for thromboembolic events (atrial fibrillation, previous thromboembolism, LV dysfunction, hypercoagulable conditions) or an older generation mechanical AVR (i.e., ball in-Cage) or any mechanical MVR should have a INR therapeutic range of 2.5 to 3.5 (target INR of 3). Javed GAR, et al. Chest 2012, 141:7S-47S Pee RA, et al. [facility] 2017, 70: 252-289 Performed By: #### PT #### [facility] [address] [place], [place] [address] NURSING PROG Observed: 10/31/2018 Status: COMPLETED Source: [place] 1:29 PM [facility] REPOSITORY HNO ID: [id number] Author: Amara Bishop) MARTELL De La Torre Service: (none) Author Type: LICENSED NURSE Type: Nursing Progress Note Filed: 10/31/2018 1:39 PM Note Text: Pre-procedure phone calls: Contacted Iva Cueva and confirmed appt. for Biopsy scheduled on 11/04/2018, at [facility]. I will be providing you with instructions if not followed; your procedure may be rescheduled. Diet: Do not eat any solid food after 6am the day your procedure. Please take your routine medications with small sips of clear liquids. You may drink clear liquids until 12 noon, which means black coffee or water only. Medications: IF ok with your Prescribing Provider: RADIOLOGY RECOMMENDS THESE MEDICATION RESTRICTIONS : Aleve Stop Aleve 5 days prior to this procedure Contrast Dye Prep: Do you have a contrast dye allergy? No Labs: Lab work needs to be drawn by 11/01/2018 at the [facility] closest to your home or your procedure will be rescheduled. Arrival: Please bring your Photo ID and Insurance Card. A general consent may need to be signed. Arrive to J1-1 ([facility]) Admitting/Registration by 12:30pm. Then proceed to desk QB-1 ([facility]) and check in for your procedure. Your anticipated procedure start time will be between 2 AND 2:30pm. Audio/Video Engineer/Transportation: How will you be arriving for your procedure? private car. If you will be arriving at [facility] via ambulance or public transportation, please call to discuss. You will need a responsible adult to accompany you to and from the procedure. Your special client bus driver is required to stay with you until you are taken into the Procedure room. Recovery expectations: You will be in the recovery room post procedure for a minimum of 1 1/.2 Hours. Special concerns: Do you use CPAP or BPAP? No If you use CPAP or BiPAP, please call to discuss. We do not want your procedure to be rescheduled I have a few questions for you... What is your arrival time to -1? 1230pm What time do you stop eating food? 6am What time can you have clears until? 12 noon Tell me how you will be taking your medications the morning of your procedure? water Written instructions provided to patient via [employer] If you have any questions please call [phone] HOSP Observed: 10/31/2018 Status: COMPLETED Source: [place] 12:00 AM [facility] REPOSITORY Patient:Iva Cueva MRN: <[id number]> Height:5' 4(1.626 m) Weight:183 lb (83.008 kg) Outpatient Medications as of 11/04/18: zolpidem (AMBIEN) 5 mg tablet amLODIPine (NORVASC) 5 mg tablet verapamil ER (VERELAN) 120 mg 24 hr capsule tbo-filgrastim (GRANIX) 480 mcg/0.8 mL syrg gabapentin (NEURONTIN) 300 mg capsule Omeprazole 40 mg capsule ondansetron (ZOFRAN) 8 mg tablet nabumetone (RELAFEN) 500 mg tablet lidocaine-prilocaine (EMLA) cream OLANZapine (ZYPREXA) 10 mg tablet melatonin 10 mg tab cyclobenzaprine (FLEXERIL) 10 mg tablet promethazine (PHENERGAN) 25 mg tablet loratadine (CLARITIN) 10 mg tablet docusate sodium (COLACE) 100 mg capsule polyethylene glycol 3350 (MIRALAX) 17 gram/dose powder naproxen sodium (ALEVE) 220 mg tablet Admission/Clinic Administered Medications as of 11/04/18: Patient has no admission medications. Problem List: Cancer of both ovaries (HCC) [C56.1, C56.2] Other secondary hypertension [I15.8] Muscle cramps [R25.2] Transfusion history [Z92.89] Allergies: Codeine Percocet [Oxycodone-Acetaminophen] Seasonal [Other] Ultram [Tramadol Hcl] Vicodin [Hydrocodone-Acetaminophen] Date Verified: 10/28/18 Lab Values Lab Value Units Date High Low DONOVAN* 33.3 % 11/01/2018 46.0 36.0 Progress Notes ([facility]): Ania Brumfieldabi, IRRIGATION FLUME LAYER, IRRIGATION FLUME LAYER 11/01/2018 9:11 AM Signed Diane Ragland [facility]str Hem/Onc Pool Cc: Randa Davison (Cbo) ? Good morning All, I am contacting you from the Precertification Department here at the [facility]. Iva Cueva, , is being reviewed for the following procedure: [address]63- CT Chest on 10/28/2018. Clinical has been submitted to the patient's insurance company [employer] and the request was denied. Please see the denial rationale and peer to peer information below: Denial Rationale: The clinical information provided does not describe signs or symptoms of disease involving the chest or a new or worsening abnormality on a recent chest x-ray. Routine chest imaging of asymptomatic patients is not supported for this malignancy without prior chest involvement or new abnormality on chest x-ray. Peer to Peer Rationale: Peer to peer time frame: peer to peer is open for 14 days since 10/28 ? Peer to peer discussion: No Need to be scheduled, but they recommended scheduled Who can complete peer to peer: , [employer] [place], you need to get verbal consent from the patient in order to complete the peer review as the insurance will ask if verbal consent has been obtained prior to the peer review. Peer to Peer Information: Peer to peer phone #: [phone] (option 4, 2) Appeal fax #: [phone] Appeal mailing address: [employer] Attn: Appeals [address] [place] [address], [address] [place] [address] Case reference #: [id number] [facility] NPI :[id number] ?[facility] TAX ID [id number] Thank you for your attention to this matter, Diane Queen APRN.DIRECTOR OF INSTITUTIONAL RESEARCH 11/01/2018 10:32 AM Signed Peer to peer scheduled for Sunday at 8a.m. ZACARIAS Amin APRN.CNP 11/04/2018 8:42 AM Signed Approved. #[id number]. Paige Queen APRN.CNP Progress Notes ([facility]): Rosy Roth Psr 10/31/2018 12:25 PM Signed Patient wanted to give Dr. Gross a heads up that she is having a procedure on Sunday11-04-18 at [facility]. She also wanted to talk about the chemo schedules she will be traveling a lot not sure how it is going to fit into her schedule. She would like for Dr Gross give her a call so she may talk to him. Omar Gross DO 10/31/2018 1:16 PM Signed I spoke with her. DO SHAZIA Dominguez Observed: 10/30/2018 Status: COMPLETED Source: [place] 12:00 AM [facility] REPOSITORY Telephone (PRISCILLA) IVA CUEVA ([id number]) 1955 F Date Time Provider Department 10/30/18 OMAR GROSS During your visit today, we recorded the following information about you: Omar Gross DO 10/30/2018 9:18 AM Signed I left Iva ONEILL earlier this morning letting her know results of CTs and that I was going to send a message to Dr. Jo asking his opinion on CT guided vs laparoscopic biopsy. Can let her know he got back to me and suggested CT guided biopsy. I placed order for this to be done at [facility]. Let's arrange for her. DO Lora Dominguez Psr Shawn 10/30/2018 9:51 AM Signed Called call center to be triaged - [phone] Once triaged, they will call patient to schedule. Radha Galan Psr 10/30/2018 9:52 AM Signed RADIOLOGY CALL CENTER INTAKE BOAT ASSEMBLER: radha EXT: [phone] DATE: October 30, 2018 TIME: 9:46 AM TRACKING #. [id number] REQUESTING PERSON: rody PHONE/PAGER: [phone] REQUESTING STAFF: Dr gross PHONE/PAGER: [phone] ORDERING DESK LOCATION: [facility] [place] [facility] If inpatient, patient location: Never done (Note: requests for inpatient's procedures should be given to the O.D. nurse at pager #[phone]) If outpatient, best way to reach patient: call patient to schedule Best time to call: anytime SCHEDULING: [place] (Specific requests must be greater than 10 days from the date of request) RADIOLOGY SERVICE GROUP: Abdominal- Biopsy Site: Other ABDOMINAL SPECIFICS OF THE REQUEST: BIOPSY of MASS - RETROPERITONEUM / Biopsy Type: Unsure SPECIAL REQUESTS: TISSUE SAMPLE TO PATHOLOGY FOR: Routine Evaluation MEDICAL DIAGNOSIS: OVARIAN CANCER (i.e. Does the patient have a known cancer? Ask for the site of any known primary cancer, or is it unknown primary or new diagnosis. If no information, ask for a suspected diagnosis as a reason for the biopsy) TYPE AND DATE OF THE EXAM THAT IS THE BASIS OF THE REQUEST: CT (Note: Requests for random organ biopsies, specifically liver and kidney random biopsies do not need imaging.) IMAGING: [facility] (If the imaging was obtained outside the [facility] system, then it needs to be submitted for review prior to approval.) Note to all persons requesting biopsies: All biopsy requests will be scheduled as quickly as possible, based on the clinical urgency, availability of appointment times, the need to hold anti-thrombolytic therapy (aspirin, blood thinners) and the patient?s schedule, including the need for an available special client bus driver. If a percutaneous biopsy or drainage is not felt to be safe or an alternative method for establishing a diagnosis is possible, this will be discussed directly with the requesting physician. Amara De La Torre LPN, IRRIGATION FLUME LAYER 10/30/2018 2:46 PM Signed . BX. COORDINATOR INFORMATION LAB RESULTS: PT INR (no units) Date Value 01/08/2013 1.0 APTT (sec) Date Value 01/08/2013 29.0 Platelet Count (k/uL) Date Value 01/11/2013 296 Current Outpatient Prescriptions: amLODIPine (NORVASC) 5 mg tablet Take 1 tablet by mouth once daily. cyclobenzaprine (FLEXERIL) 10 mg tablet Take 1 tablet by mouth every 6 hours as needed. docusate sodium (COLACE) 100 mg capsule Take 100 mg by mouth twice daily. gabapentin (NEURONTIN) 300 mg capsule Take 3 capsules by mouth three times daily. (Patient taking differently: Take 900 mg by mouth daily at bedtime. ) lidocaine-prilocaine (EMLA) cream Apply 1 application to affected area as needed. loratadine (CLARITIN) 10 mg tablet Take 10 mg by mouth once daily as needed. melatonin 10 mg tab Take 1 tablet by mouth at bedtime as needed. nabumetone (RELAFEN) 500 mg tablet Take 2 tablets by mouth twice daily as needed. (Patient not taking: Reported on 06/13/2018) naproxen sodium (ALEVE) 220 mg tablet Take 220 mg by mouth as needed. OLANZapine (ZYPREXA) 10 mg tablet Take 1 tablet by mouth daily at bedtime. (Patient taking differently: Take 10 mg by mouth daily at bedtime. PRN ) Omeprazole 40 mg capsule TAKE 1 CAPSULE BY MOUTH ONCE DAILY ondansetron (ZOFRAN) 8 mg tablet Take 1 tablet by mouth every 8 hours as needed for Nausea/Vomiting. polyethylene glycol 3350 (MIRALAX) 17 gram/dose powder Take 17 g by mouth once daily. promethazine (PHENERGAN) 25 mg tablet Take 1 tablet by mouth every 6 hours as needed for Nausea/Vomiting. tbo-filgrastim (GRANIX) 480 mcg/0.8 mL syrg Inject 480 mcg subcutaneously once daily for 7 days. verapamil ER (VERELAN) 120 mg 24 hr capsule Take 2 capsules by mouth daily at bedtime. zolpidem (AMBIEN) 5 mg tablet Take 1 tablet by mouth at bedtime as needed for up to 90 days. No current facility-administered medications for this visit. ALLERGIES Allergen Reactions - Codeine Intolerance - Percocet [Oxycodone* Itching - Seasonal [Other] - Ultram [Tramadol Hc* Itching - Vicodin [Hydrocodon* Itching FILMS SENT TO WORKSTATION: GUIDELINES FOR HOLDING ANTI-PLATELET AND ANTI- COAGULATION THERAPY: none on file NURSE SIGNATURE: Amara De La Torre LPN DATE: October 30, 2018 TIME: 2:46 PM Hari Barragan MD 10/30/2018 3:09 PM Signed RADIOLOGIST REQUEST / APPROVAL FORM STAFF RADIOLOGIST: PROCEDURE TO BE DONE UNDER: CT PROCEDURE REQUESTED: CORE Requested PROCEDURE: Approved TIME SLOT NEEDED: 1 hour NOTES: request bx of peritoneal nodule. try to get 2-3 CORES. RUQ probably best target h/o ovarian ca SPECIAL LABS/ PROCESSING: STAFF SIGNATURE: Hari Barragan MD DATE: October 30, 2018 TIME: 3:05 PM Madhavi Helm 10/31/2018 11:20 AM Signed Called pt to schedule and a message was left 1st attempt Madhavi Helm 10/31/2018 12:11 PM Signed Spoke to pt and scheduled biopsy for 11/04/18 Josephine Woodard Psr 10/31/2018 12:[address] Ocampo Allergies As of Date: 10/30/2018 Noted Allergy Reaction CODEINE 05/03/2007 5 - Intolerance PERCOCET (OXYCODONE-ACETAMINOPHEN)06/29/2015 9 - Itching Seasonal [Other] 06/05/2007 ULTRAM (TRAMADOL HCL) 01/08/2013 9 - Itching VICODIN (HYDROCODONE-ACETAMINOPHE*08/26/2007 9 - Itching Date Reviewed: 10/28/2018 Reviewed by: Ofelia Landeros Ct - Fully Assessed Reason for Visit: Biopsy Request [1576] Primary Visit Diagnosis:Cancer of both ovaries (HCC) [C56.1, C56.2] Order(s):IMAGING GUIDED BIOPSY ABDOMEN/RETROPERITONEAL MASS [[id number]] Order #: [id number] Prescriptions as of 10/30/2018 Sig: ZOLPIDEM 5 MG TABLET Take 1 tablet by mouth at bed* AMLODIPINE 5 MG TABLET Take 1 tablet by mouth once d* VERAPAMIL ER 120 MG 24 HR CAP* Take 2 capsules by mouth debora* TBO-FILGRASTIM 480 MCG/0.8 ML* Inject 480 mcg subcutaneously* GABAPENTIN 300 MG CAPSULE Take 3 capsules by mouth thre* Patient taking differently: Take 900 mg by mouth daily at* OMEPRAZOLE 40 MG CAPSULE,BASSEM* TAKE 1 CAPSULE BY MOUTH ONCE * ONDANSETRON HCL 8 MG TABLET Take [...] as neede* Problem List As Of Date 10/30/2018 Noted Resolved Calculus of gallbladder with other [...] [Z92.89] INVALID FOR* More... Encounter Status:Closed by MADHAVI HELM on 10/31/18 PROGRESS Observed: 10/28/2018 Status: COMPLETED Source: [place] 3:19 PM [facility] [place] REPOSITORY O ID: [id number] Author: Ofelia Jones Service: (none) Author Type: (none) Type: Progress Notes Filed: 10/28/2018 3:19 PM Note Text: Radiology Service Progress Note PATIENT NAME: Iva Cueva DATE OF SERVICE: October 28, 2018 TIME: 3:19 PM PATIENT IDENTITY VERIFICATION COMPLETED USING TWO (2) METHODS: Patient confirmed name verbally and Date of . PATIENT GENDER DATA: Female. status: : No status: NO. PATIENT RELEVANT IMPLANT DATA REVIEWED: Not Applicable CONTRAST INDUCED NEPHROPATHY RISK FACTORS: Patient age [...] RESULTS: POC done: Yes, See Lab Tab October 28, 2018 RADIOLOGIST NOTIFIED?: No ALLERGIES: Reviewed and unchanged CONTRAST ALLERGY: NO. PERIPHERAL IV ACCESS: Ambulatory: IV type: A peripheral IV was started in the Right antecubital site with a Angio cath: 22 gauge., Site assessment: Clean,Dry and Intact, Site disposition Discontinued RADIOLOGY DEPARTMENT: CT; Exam(s) Completed: Chest Abdomen Pelvis SIGNED BY: Ofelia Landeros Ct October 28, 2018 3:[address] CHEST W IVCON Observed: 10/28/2018 Status: F Source: [place] 3:19 PM [facility] [place] REPOSITORY * * *Final Report* * * DATE OF EXAM: Oct 28 2018 3:19PM [facility] 0539 - CT CHEST W IVCON / PROCEDURE REASON: Malignant neoplasm of ovary, unspecified laterality (HCC) * * * * Physician Interpretation * * * * EXAMINATION: CT CHEST WITH IV CONTRAST and CT ABDOMEN AND PELVIS WITH IV CONTRAST CLINICAL HISTORY: Malignant neoplasm of ovary, unspecified laterality (HCC) Hx ovarian ca,lori,bso,chemo,appy,chris,Lt chest port kmr TECHNIQUE: CT of the chest from the thoracic inlet to the upper abdomen was performed following IV contrast. CT of the abdomen and pelvis was performed using standard technique, scanning from just above the dome of the diaphragm to the symphysis pubis. MQ: CTCAPW_4 Contrast: IV: 150 ml of Omnipaque 300 Oral: 50 ml of 50ML Omnipaque [address] Radiation dose: Integrated Dose-length product (DLP) for this visit = 934 mGy*cm. CT Dose Reduction Employed: Automated exposure control(AEC) and iterative recon COMPARISON: CT abdomen and pelvis 04/29/[address] chest, abdomen and pelvis 11/06/2017 RESULT: Limitations: None. Chest: Lines, tubes, and devices: Left-sided Mediport with the tip in superior vena cava. Lung parenchyma and pleura: No consolidation. There has been resolution of previously described groundglass opacities in the posterior left lower lobe. No suspicious pulmonary nodule. No pleural effusion. Central airways are patent. Thoracic inlet, heart, and mediastinum: There are multiple subcentimeter paratracheal lymph nodes. There is a stable borderline prominent aortopulmonary window lymph node which measures 1 cm short axis dimension on image 71, series 4. There is an enlarged subcarinal lymph node which measures 1.1 cm short axis dimension on image 89. No hilar lymphadenopathy. Distal paraesophageal lymph node measures 1 cm on image 12 and appears unchanged. The thoracic aorta and main pulmonary artery are normal in caliber. The cardiac chambers are normal in size. No coronary artery atherosclerotic calcifications are noted, although the study is not optimized for coronary assessment. No pericardial effusion or thickening. Bones/Soft Tissues: No acute fracture or destructive osseous lesion. No chest wall mass. Abdomen / Pelvis: Liver: No mass. Fatty infiltration of the liver. Biliary: No bile duct dilation. The gallbladder is surgically absent. Spleen: No mass. No splenomegaly. Pancreas: No mass or duct dilation. Adrenals: No mass. Kidneys: No mass, calculus or hydronephrosis. GI tract: No dilation or wall thickening. Lymph nodes: Again noted are multiple enlarged abdominal lymph nodes: * Lymph node adjacent to the celiac axis measures 1.3 cm short axis dimension on image 36, previously 1 cm *Multiple periaortic lymph nodes which measure up to 1 cm short axis dimension on image 49 Mesentery/Peritoneum: No ascites. Increase in size and number of peritoneal implants compared to the prior study. For example there is an implant adjacent to the hepatic flexure of the colon which measures 3 x 2.2 cm on image 51, previously 2 x 1.1 cm. Nodule anterior to the left lobe of the liver measures 2.3 x 0.8 cm on image 46, previously 1.4 x 0.6 cm. Retroperitoneum: No mass. Vasculature: The celiac axis and SMA are patent. The portal vein and branches, splenic vein, SMV, and hepatic veins are patent. No abdominal aortic aneurysm. Pelvis: The bladder has a normal appearance. There is a small amount of fluid in the pelvis. There are postoperative changes from a hysterectomy. IMPRESSION: 1. Stable prominent mediastinal lymph nodes 2. Increase in size of lymph nodes adjacent to the celiac axis 3. Increase in size and number of peritoneal implants 4. Small amount of fluid in the pelvis Jordan Man: [facility] Transcribe Date/Time: Oct 28 2018 4:11P Dictated by : CARLOS ALBERTO HASKINS MD This examination was interpreted and the report reviewed and electronically signed by: CARLOS ALBERTO HASKINS MD on Oct 28 2018 4:49PM EST [id number] CT ABD/PEL W IVCON Observed: 10/28/2018 Status: F Source: [place] 3:19 PM [facility] REPOSITORY * * *Final Report* * * DATE OF EXAM: Oct 28 2018 3:19PM [facility] 0530 - CT ABD/PEL W IVCON / PROCEDURE REASON: Malignant neoplasm of ovary, unspecified laterality (HCC) * * * * Physician Interpretation * * * * EXAMINATION: CT CHEST WITH IV CONTRAST and CT ABDOMEN AND PELVIS WITH IV CONTRAST CLINICAL HISTORY: Malignant neoplasm of ovary, unspecified laterality (HCC) Hx ovarian ca,lori,bso,chemo,appy,chris,Lt chest port kmr TECHNIQUE: CT of the chest from the thoracic inlet to the upper abdomen was performed following IV contrast. CT of the abdomen and pelvis was performed using standard technique, scanning from just above the dome of the diaphragm to the symphysis pubis. MQ: CTCAPW_4 Contrast: IV: 150 ml of Omnipaque 300 Oral: 50 ml of 50ML Omnipaque [address] Radiation dose: Integrated Dose-length product (DLP) for this visit = 934 mGy*cm. CT Dose Reduction Employed: Automated exposure control(AEC) and iterative recon COMPARISON: CT abdomen and pelvis 04/29/[address] chest, abdomen and pelvis 11/06/2017 RESULT: Limitations: None. Chest: Lines, tubes, and devices: Left-sided Mediport with the tip in superior vena cava. Lung parenchyma and pleura: No consolidation. There has been resolution of previously described groundglass opacities in the posterior left lower lobe. No suspicious pulmonary nodule. No pleural effusion. Central airways are patent. Thoracic inlet, heart, and mediastinum: There are multiple subcentimeter paratracheal lymph nodes. There is a stable borderline prominent aortopulmonary window lymph node which measures 1 cm short axis dimension on image 71, series 4. There is an enlarged subcarinal lymph node which measures 1.1 cm short axis dimension on image 89. No hilar lymphadenopathy. Distal paraesophageal lymph node measures 1 cm on image 12 and appears unchanged. The thoracic aorta and main pulmonary artery are normal in caliber. The cardiac chambers are normal in size. No coronary artery atherosclerotic calcifications are noted, although the study is not optimized for coronary assessment. No pericardial effusion or thickening. Bones/Soft Tissues: No acute fracture or destructive osseous lesion. No chest wall mass. Abdomen / Pelvis: Liver: No mass. Fatty infiltration of the liver. Biliary: No bile duct dilation. The gallbladder is surgically absent. Spleen: No mass. No splenomegaly. Pancreas: No mass or duct dilation. Adrenals: No mass. Kidneys: No mass, calculus or hydronephrosis. GI tract: No dilation or wall thickening. Lymph nodes: Again noted are multiple enlarged abdominal lymph nodes: * Lymph node adjacent to the celiac axis measures 1.3 cm short axis dimension on image 36, previously 1 cm *Multiple periaortic lymph nodes which measure up to 1 cm short axis dimension on image 49 Mesentery/Peritoneum: No ascites. Increase in size and number of peritoneal implants compared to the prior study. For example there is an implant adjacent to the hepatic flexure of the colon which measures 3 x 2.2 cm on image 51, previously 2 x 1.1 cm. Nodule anterior to the left lobe of the liver measures 2.3 x 0.8 cm on image 46, previously 1.4 x 0.6 cm. Retroperitoneum: No mass. Vasculature: The celiac axis and SMA are patent. The portal vein and branches, splenic vein, SMV, and hepatic veins are patent. No abdominal aortic aneurysm. Pelvis: The bladder has a normal appearance. There is a small amount of fluid in the pelvis. There are postoperative changes from a hysterectomy. IMPRESSION: 1. Stable prominent mediastinal lymph nodes 2. Increase in size of lymph nodes adjacent to the celiac axis 3. Increase in size and number of peritoneal implants 4. Small amount of fluid in the pelvis Jordan Man: [facility] Transcribe Date/Time: Oct 28 2018 4:11P Dictated by : CARLOS ALBERTO HASKINS MD This examination was interpreted and the report reviewed and electronically signed by: CARLOS ALBERTO HASKINS MD on Oct 28 2018 4:49PM EST [id number] CANCER ANTIGEN 125 Collected: 10/25/2018 Status: F Source: [place] 11:42 AM [facility] REPOSITORY TYPE CODE TESTS RESULT OUT OF RANGE REFERENCE UNITS LAB L3100.5000 0.0-38.1 U/mL High CA125 78.9 2303 Result Comment: [employer] ECLIA methodology Performed at: [facility] [address] [id number] Lease Operator: Carlo Bass PhD, Phone: [phone] Performed By: #### L3100.5000 #### [facility] (refer to report for specific site) refer to report for address and phone number PROGRESS Observed: 10/24/2018 Status: COMPLETED Source: [place] 4:14 PM [facility] REPOSITORY HNO ID: [id number] Author: Omar Gross Service: (none) Author Type: Physician Type: Progress Notes Filed: 10/24/2018 8:10 PM Note Text: Diagnosis: 1) Ovarian cancer. ? HPI: The patient is a 63 year old female who presented to her PCP prior to a trip to [facility] for vaccinations. She reported that she was [...] Taxol x 6 cycles, completed 05/27/13. 6) [place]/carbo/cassandra x cycles for biopsy proven metastatic disease [...] for ongoing oncologic management. ? Interim history: No complaints today. Appetite is normal. No abdominal pain, bloating or distention. SBPs at hospital this am 170s and 180s. Medications and allergies as below personally reviewed [...] and polydipsia. Denies heat and cold intolerance. Derm: Denies rash. Denies diffuse pruritis. Psych: Normal mood. ? PHYSICAL EXAM: Vitals: Blood pressure 137/89, pulse 86, temperature 36.3 ?C (97.4 ?F), weight 83 kg (183 lb), last menstrual period 12/10/2011. Well-appearing and in no acute distress. EYES: Sclerae are anicteric bilaterally. NECK: Supple. LYMPHATIC: There is no palpable cervical, supraclavicular adenopathy. RESPIRATORY: Inspiratory breath sounds are of normal intensity in all wood. No rales, wheezes or rhonchi. CARDIOVASCULAR: Rhythm is regular. Normal intensity S1/S2. There is no gallop or murmur. ABDOMEN: The abdomen is nondistended. There is no organomegaly. No tenderness. No fluid wave. Extremities: Free of edema. SKIN: No jaundice or rash. No petechiae. NEUROLOGIC: paramedical aide II-XII are grossly intact. No focal motor weakness. ? ASSESSMENT/PLAN: (C56.1, C56.2) Cancer of both ovaries (HCC) (primary encounter diagnosis) (C78.7) Liver metastases (HCC) KPS is 90%. Biopsy-proven recurrence. -She is tolerating topotecan overall well. Has required RBC transfusions. -Somatic BRCA mutation analysis negative--see scanned [facility] report 01/15/2018. -Tolerating Avastin except for hypertension. -CA125 has been fairly stable and she remains asymptomatic. -Mild increase in AST/ALT. -Discussed plan to hold cycle till 11/04 and get repeat CA125 and repeat CTs in the interim. Plan: -As above. ? (I15.8) Other secondary hypertension Assessment: -HTN from previous bevacizumab. -Responded well to lisinopril, but had cough. -BP had been controlled with Verapamil and serendipitous side effect of relief from muscle cramps. Plan: -Continue verapamil at current dose 240 mg once a day.-Add -Norvasc 5 mg daily. Omar Gross DO CNOVSP Observed: 10/24/2018 Status: COMPLETED Source: [place] 4:00 PM [facility] REPOSITORY Visit (SP) Office (PRISCILLA) IVA CUEVA ([id number]) 1955 F Date Time Provider Department 10/24/18 4:00 PM OMAR GROSS During your visit today, we recorded the following information about you: Temperature Pulse Blood pressure Weight 97.4 degrees 86/minute 137/89 83 kg Ania Reed LPN, LPN 10/24/2018 4:45 PM Signed Est . Pt. Discuss recent labs, poss tx Sunday MARTELL Grimaldo DO 10/24/2018 8:10 PM Signed Diagnosis: 1) Ovarian cancer. ? HPI: The patient is a 63 year old female who presented to her PCP prior to a trip to [facility] for vaccinations. She reported that she was [...] Taxol x 6 cycles, completed 05/27/13. 6) [place]/carbo/cassandra x cycles for biopsy proven metastatic disease [...] for ongoing oncologic management. ? Interim history: No complaints today. Appetite is normal. No abdominal pain, bloating or distention. SBPs at hospital this am 170s and 180s. Medications and allergies as below personally reviewed [...] and polydipsia. Denies heat and cold intolerance. Derm: Denies rash. Denies diffuse pruritis. Psych: Normal mood. ? PHYSICAL EXAM: Vitals: Blood pressure 137/89, pulse 86, temperature 36.3 ?C (97.4 ?F), weight 83 kg (183 lb), last menstrual period 12/10/2011. Well-appearing and in no acute distress. EYES: Sclerae are anicteric bilaterally. NECK: Supple. LYMPHATIC: There is no palpable cervical, supraclavicular adenopathy. RESPIRATORY: Inspiratory breath sounds are of normal intensity in all wood. No rales, wheezes or rhonchi. CARDIOVASCULAR: Rhythm is regular. Normal intensity S1/S2. There is no gallop or murmur. ABDOMEN: The abdomen is nondistended. There is no organomegaly. No tenderness. No fluid wave. Extremities: Free of edema. SKIN: No jaundice or rash. No petechiae. NEUROLOGIC: paramedical aide II-XII are grossly intact. No focal motor weakness. ? ASSESSMENT/PLAN: (C56.1, C56.2) Cancer of both ovaries (HCC) (primary encounter diagnosis) (C78.7) Liver metastases (HCC) KPS is 90%. Biopsy-proven recurrence. -She is tolerating topotecan overall well. Has required RBC transfusions. -Somatic BRCA mutation analysis negative--see scanned [facility] report 01/15/2018. -Tolerating Avastin except for hypertension. -CA125 has been fairly stable and she remains asymptomatic. -Mild increase in AST/ALT. -Discussed plan to hold cycle till 11/04 and get repeat CA125 and repeat CTs in the interim. Plan: -As above. ? (I15.8) Other secondary hypertension Assessment: -HTN from previous bevacizumab. -Responded well to lisinopril, but had cough. -BP had been controlled with Verapamil and serendipitous side effect of relief from muscle cramps. Plan: -Continue verapamil at current dose 240 mg once a day.-Add -Norvasc 5 mg daily. Omar Gross DO Referring Provider: OMAR GROSS [[id number]] Allergies As of Date: 10/24/2018 Noted Allergy Reaction CODEINE 05/03/2007 5 - Intolerance PERCOCET (OXYCODONE-ACETAMINOPHEN)06/29/2015 9 - Itching Seasonal [Other] 06/05/2007 ULTRAM (TRAMADOL HCL) 01/08/2013 9 - Itching VICODIN (HYDROCODONE-ACETAMINOPHE*08/26/2007 9 - Itching Date Reviewed: 10/24/2018 Reviewed by: Ania Vasquez (Martell) MARTELL Reed - Fully Assessed Reason for Visit: Established Patient [175] Visit Diagnoses:Malignant neoplasm of ovary, unspecified laterality (HCC) [C56.9] Ovarian cancer, unspecified laterality (HCC) [C56.9] Carcinomatosis (HCC) [C80.0] Order(s):CT ABD/PEL W IVCON [[id number]] Order #: [id number] FUTURE CT CHEST W IVCON [[id number]] Order #: [id number] FUTURE iv contrast (will be provided with radiology test)CT Chest ABD/PEL-Inject, intravenously, once for 1 dose.No IV access, insert saline lock prior to the beginning of sedation, infusion, injection of imaging exam. Discontinue saline lock post exam. If Pt. has a central line or IVAD, may access for administration according to line specific nursing protocol. Once exam is complete flush line and de-access according to line specific nursing protocol in the CT contrast administration guidelines link.Disp: 1 EachRfl: 0 enteric contrast (will be provided with radiology test)For CT CHESTABD/PEL W IVCON Routine order Administer, As Directed One Time Only, via Oral, Rectal, both Oral and Rectal, Enteric Tube, Stoma or Indwelling Catheter, Enteric Contrast as designated per enteric contrast guidelinesDisp: 1 EachRfl: 0 zolpidem (AMBIEN) 5 mg tabletTake 1 tablet by mouth at bedtime as needed for up to 90 days.Disp: 30 tabletRfl: 2 amLODIPine (NORVASC) 5 mg tabletTake 1 tablet by mouth once daily.Disp: 90 tabletRfl: 3 verapamil ER (VERELAN) 120 mg 24 hr capsuleTake 2 capsules by mouth daily at bedtime.Disp: 180 capsuleRfl: 3 Follow-up and Disposition History Recorded Prescriptions as of 10/24/2018 Sig: CYCLOBENZAPRINE 10 MG TABLET Take 1 tablet by mouth every * DOCUSATE SODIUM 100 MG CAPSULE Take 100 mg by mouth twice da* GABAPENTIN 300 MG CAPSULE Take 3 capsules by mouth thre* Patient taking differently: Take 900 mg by mouth daily at* LIDOCAINE-PRILOCAINE 2.5 %-2.* Apply 1 application to affect* LORATADINE 10 MG TABLET Take 10 mg by mouth once debora* MELATONIN 10 MG TABLET Take 1 tablet by mouth at bed* NAPROXEN SODIUM 220 MG TABLET Take 220 mg by mouth as neede* OLANZAPINE 10 MG TABLET Take 1 tablet by mouth daily * Patient taking differently: Take 10 mg by mouth daily at * OMEPRAZOLE 40 MG CAPSULE,BASSEM* TAKE 1 CAPSULE BY MOUTH ONCE * ONDANSETRON HCL 8 MG TABLET Take 1 tablet by mouth every * POLYETHYLENE GLYCOL 3350 17 G* Take 17 g by mouth once daily. PROMETHAZINE 25 MG TABLET Take 1 tablet by mouth every * TBO-FILGRASTIM 480 MCG/0.8 ML* Inject 480 mcg subcutaneously* VERAPAMIL ER 120 MG 24 HR CAP* Take 2 capsules by mouth debora* ZOLPIDEM 5 MG TABLET Take 1 tablet by mouth at bed* AMLODIPINE 5 MG TABLET Take 1 tablet by mouth once d* ENTERIC CONTRAST (RADIOLOGY P* For CT CHESTABD/PEL W IVCON R* IV CONTRAST (RADIOLOGY PROCED* CT Chest ABD/PEL-Inject, intr* NABUMETONE 500 MG TABLET Take 2 tablets by mouth twice* Patient not taking: Reported on 06/13/2018 Problem List As Of Date 10/24/2018 Noted Resolved Calculus of gallbladder with other [...] FOR* Transfusion history [Z92.89] INVALID FOR* More... Visit Notes: >> Ania Reed LPN [facility] Oct 24, 2018 4:11 PM Status: Signed Est . Pt. Discuss recent labs, poss tx Sunday Ania Vasquez MARTELL Reed Encounter Status:Closed by OMAR GROSS DO on 10/24/18 CBC W/DIFF, AUTOMATED Collected: 10/23/2018 Status: C Source: [place] 12:53 PM [facility] REPOSITORY Order Comment: CRITICAL VALUE VERIFIED. CALLED TO JANE 10/23/18 1404 Amalia Recinos. RESULTS READ BACK BY MARY . TYPE CODE TESTS RESULT OUT OF REFERENCE UNITS RANGE LAB L100.1000 4.4-11.0 K/mm3 WBC High alert 39.7 LAB L100.1200 4.2-5.4 M/mm3 Low RBC 3.08 LAB L100.1300 12.0-15.0 g/dl Low HGB 9.4 LAB L100.1400 37-47 % Low HCT 28.5 LAB L100.1500 81-99 fL MCV Normal 92.5 LAB L100.1600 27.0-32.0 pg MCH Normal 30.5 LAB L100.1700 32-36 g/gl MCHC Normal 33.0 LAB L100.1810 11.6-14.6 % RDW CV High 17.5 LAB L100.1820 35.1-43.9 fl RDW SD High 57.2 LAB L100.1900 150-450 K/mm3 Low PLT 57 LAB L100.2000 6.2-12.0 fl MPV Normal 10.1 LAB L100.3100 MANUAL DIFF CELLS COUNTED Normal 100 LAB L100.3200 47-70 % SEGS High 83 LAB L100.3300 0-5 % BAND Normal 4 LAB L100.3400 0-1 % META High 5 LAB L100.3500 0-0 MYELO High 1 LAB L100.3800 19-41 % Low LYMPH 6 LAB L100.3900 0-10 % MONOCYTE Normal 1 LAB L100.5500 ADEQ PLT EST Normal MKD DEC LAB L100.7300 ANISO Normal 1+ LAB L100.7600 HYPOCHROMASIA Normal 1+ LAB L100.9900 PATH REV Normal Reviewed Result Comment: Neutrophilic leukocytosis. Normocytic anemia. Marked Thrombocytopenia. Clinical correlation necessary. Kumar Vivar D.O. 10/24/18 AMENDED REPORT 10/24/18 1420 PATH REV previously reported as: February Performed By: #### L100.0100 #### [facility] [address] [place], [place], [address] COMPREHENSIVE METABOLIC Collected: 10/23/2018 Status: F Source: [place] [facility] 12:53 PM [facility] REPOSITORY TYPE CODE TESTS RESULT OUT OF RANGE REFERENCE UNITS LAB L501.0100 74-106 mg/dL High GLU 127 Result Comment: Fasting Glucose result greater than or equal to 126 mg/dL suggests DIABETES MELLITUS per A.D.A. criteria. Please note revised GLUCOSE reference range effective 2017. LAB L501.1000 7-18 mg/dL Normal BUN 10 LAB L501.1100 0.55-1.02 mg/dL Normal CREAT,SERUM 0.72 Result Comment: The validity of the calculated GFR AND GFRAA in patients over 70 years has not been determined. Clinical correlation is essential. LAB L501.1110 >60 mL/min Normal EST GFR 88 Result Comment: Non- GFR Calc LAB L501.1115 >60 mL/min Normal EST GFR - AA 106 Result Comment: GFR Calc LAB L501.1300 10-20 RATIO Normal BUN/CRE 13.9 LAB L501.1500 6.4-8.2 g/dL T Normal PROT 7.4 LAB L501.1800 3.2-5.0 g/dL Normal ALB 3.7 LAB L501.1950 2.2-4.2 g/dL Normal GLOB 3.7 LAB L501.2000 0.9-2.4 RATIO Normal A/G 1.0 LAB L501.2200 8.5-10.1 mg/dL CA Normal 8.9 LAB L501.4100 15-37 U/L High AST 40 LAB L501.4305 45-117 U/L High ALK P 255 LAB L501.4405 13-56 U/L High ALT 69 LAB L501.4600 0.20-1.00 mg/dL T Normal BILI 0.30 LAB L501.5300 136-145 mmol/L NA Normal 141 LAB L501.5600 3.5-5.1 mmol/L K Normal 3.6 LAB L501.5900 98-107 mmol/L CL Normal 107 LAB L501.6100 21.0-32.0 mmol/L Normal CO2 26.0 LAB L501.6200 5-15 Normal GAP 8 Performed By: #### L500.4050 #### [facility] [address] [place], [address] Observed: 10/09/2018 Status: F Source: [place] CDIFF (MOLECULAR) 3:15 PM [facility] REPOSITORY Is the patient receiving laxatives? N New/unexplained onset of 3 or more stools in past 24 hrs? Y Has pt arrived? Y Cdiff-Molecular Normal Reference Range = Negative C. Diff DNA Negative- No toxigenic C. Diff DNA Detected NAAT METHOD Testing was performed using nucleic acid amplification Performed By: #### M100.6796 #### [facility] [address] [place], [address] CBC W/DIFF, AUTOMATED Collected: 10/07/2018 Status: F Source: [place] 9:49 AM [facility] REPOSITORY TYPE CODE TESTS RESULT OUT [...] Lymph 1.28 Performed By: #### L100.0100 #### [facility] [address] [place], [place], [address] COMPREHENSIVE METABOLIC Collected: 10/07/2018 Status: F Source: [facility] 9:49 AM [facility] REPOSITORY TYPE CODE TESTS RESULT OUT [...] GAP 8 Performed By: #### L500.4050 #### [facility] [address] [place], [address] CANCER ANTIGEN 125 Collected: 10/07/2018 Status: F Source: [place] 9:49 AM [facility] REPOSITORY TYPE CODE TESTS RESULT OUT OF RANGE REFERENCE UNITS LAB L3100.5000 0.0-38.1 U/mL High CA125 90.0 2303 Result Comment: [employer]uer ECLIA methodology Performed at: [facility] [address] [id number] Lease Operator: Carlo Bass PhD, Phone: [phone] Performed By: #### L3100.5000 #### [facility] (refer to report for specific site) refer to report for address and phone number BREAST LIMITED Observed: 09/26/2018 Status: F Source: [place] UNIL[place]AL 1:24 PM [facility] REPOSITORY [facility] Imaging Services [address] [place] [address]58 Breast Limited Unilateral MR#: [id number] Acct: [id number] Name: IVA CUEVA Rep #: [id number] : 1955 F 63 From: Shahbaz Munguia MD PCP: Peter Deras MD Status: REG CLI Study: Breast Limited Unilateral Date of Exam: 09/26/18 Exam# [id number] Ordering Dr: Marcy Bruno MD STUDY: ULTRASOUND [...] Shahbaz Munguia MD at 15:18 EST Tel [phone], Service support , CC: Peter Deras MD; Marcy Bruno MD Jordan Man: Signed DIAG MAMM W/CAD, Observed: 09/26/2018 Status: F Source: [place] BIL 1:24 PM [facility] REPOSITORY [facility] Imaging Services [address] [place] [address] DIAG MAMM W/CAD, BILAT MR#: [id number] Acct: [id number] Name: IVA CUEVA Rep #: [id number] : 1955 F 63 From: Shahbaz Munguia MD PCP: Peter Deras MD Status: REG CLI Study: DIAG MAMM W/CAD, BILAT Date of Exam: 09/26/18 Exam# [id number] Ordering Dr: Marcy Bruno MD MAMMOGRAPHY - [...] Shahbaz Munguia MD at 8:58 EST Tel [phone], Service support , CC: Peter Deras MD; Marcy Bruno MD Jordan Man: Signed 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 [place] [address] OFFICE VISIT Date of Service: 09/17/18 MR#: [id number] Acct: [id number] Name: IVA CUEVA Rep #: [id number] : 1955 Provider: Marcy Bruno MD Age/Sex: 63/F Location: [facility] Status: Signed Intake Vital Signs09/17/18 Height 5 ft 4 in 09/17/18 Weight: 189 lb 2 oz 09/17/18 Body Mass Index (BMI) 32.4 09/17/18 Blood Pressure 122/80 H Intake Visit Reasons: ANNUAL Chief Complaint: est annual Sports Physician Required: No Is patient in pain?: No [...] abortions Past Pregnancies Del. DatName GA/WeeksOutcome Route [facility] LocaProviderFOB e ht en ia tn Unknown [...] Const General: cooperative, comfortable, no acute distress HENMT Head: normal to inspection, normocephalic, other (absence [...] CC: PROGRESS Observed: 08/30/2018 Status: COMPLETED Source: [place] 3:15 PM [facility] REPOSITORY O ID: [id number] Author: Omar Gross Service: (none) Author Type: Physician Type: Progress Notes Filed: 09/02/2018 9:16 AM Note Text: Diagnosis: 1) Ovarian cancer. ? HPI: The patient is a 63 year old female who presented to her PCP prior to a trip to [facility] for vaccinations. She reported that she was [...] Taxol x 6 cycles, completed 05/27/13. 6) [place]/carbo/cassandra x cycles for biopsy proven metastatic disease [...] sounds are of normal intensity in all wood. No rales, wheezes or rhonchi. CARDIOVASCULAR: Rhythm is regular. Normal intensity S1/S2. There is no gallop or murmur. ABDOMEN: The abdomen is nondistended. There is no organomegaly. No tenderness. No fluid wave. Extremities: Free of edema. SKIN: No jaundice or rash. No petechiae. NEUROLOGIC: paramedical aide II-XII are grossly intact. No focal motor weakness. ? ASSESSMENT/PLAN: (C56.1, C56.2) Cancer of both ovaries (HCC) (primary encounter diagnosis) (C78.7) Liver metastases (HCC) KPS is 90%. Biopsy-proven recurrence. [place] refractory? -She is tolerating topotecan well thus [...] DO CNOVSP Observed: 08/30/2018 Status: COMPLETED Source: [place] 3:10 PM [facility] REPOSITORY Visit (SP) Office (PRISCILLA) IVA CUEVA ([id number]) 1955 F Date Time Provider Department 08/30/18 3:10 PM OMAR GROSS During your visit today, we recorded the following information about you: Temperature Pulse Blood pressure Weight 97.5 degrees 83/minute 159/85 86.2 kg Omar GrossDO 09/02/2018 9:16 AM Signed Diagnosis: 1) Ovarian cancer. ? HPI: The patient is a 63 year old female who presented to her PCP prior to a trip to [facility] for vaccinations. She reported that she was [...] Taxol x 6 cycles, completed 05/27/13. 6) [place]/carbo/cassandra x cycles for biopsy proven metastatic disease [...] sounds are of normal intensity in all wood. No rales, wheezes or rhonchi. CARDIOVASCULAR: Rhythm is regular. Normal intensity S1/S2. There is no gallop or murmur. ABDOMEN: The abdomen is nondistended. There is no organomegaly. No tenderness. No fluid wave. Extremities: Free of edema. SKIN: No jaundice or rash. No petechiae. NEUROLOGIC: paramedical aide II-XII are grossly intact. No focal motor weakness. ? ASSESSMENT/PLAN: (C56.1, C56.2) Cancer of both ovaries (HCC) (primary encounter diagnosis) (C78.7) Liver metastases (HCC) KPS is 90%. Biopsy-proven recurrence. [place] refractory? -She is tolerating topotecan well thus [...] Omar Gross DO Referring Provider: OMAR GROSS [[id number]] Allergies As of Date: 08/30/2018 Noted Allergy [...] METABOLIC Collected: 08/26/2018 Status: F Source: [place] 4:19 PM [facility] REPOSITORY TYPE CODE TESTS RESULT OUT [...] GAP 11 Performed By: #### L500.4050 #### [facility] [place], [address] CBC W/DIFF, AUTOMATED Collected: 08/26/2018 Status: F Source: [place] 4:19 PM [facility] REPOSITORY TYPE CODE TESTS RESULT OUT [...] Normal RARE Performed By: #### L100.0100 #### [facility] [address] [place], [place], [id number] CANCER ANTIGEN 125 Collected: 08/26/2018 Status: F Source: [place] 4:19 PM [facility] REPOSITORY TYPE CODE TESTS RESULT OUT OF RANGE REFERENCE UNITS LAB L3100.5000 0.0-38.1 U/mL High CA125 59.5 2303 Result Comment: CartRescuer ECLIA methodology Performed at: [facility] [address] [id number] Lease Operator: Carlo Bass PhD, Phone: [phone] Performed By: #### L3100.5000 #### [facility] (refer to report for specific site) refer to report for address and phone number HOSP Observed: 08/12/2018 Status: COMPLETED Source: [place] 12:00 AM [facility] REPOSITORY Patient Update (HEMAWS) IVA CUEVA ([id number]) 1955 F Date Time Provider Department 08/12/18 OMAR GROSS During your visit today, we recorded the following information about you: Joshua Woods, RN, RN 08/12/2018 3:58 PM Signed Jacinta Tariq from [facility] prior auth called to verify pt's dose of Avastin. Pt's weight has changed and wanted to check what dose of Avastin pt should be getting. Jane checked with Dr Gross and pt should be receiving 15mg/kg (currently 88kg which would be a dose of 1320mg). Jacinta Tariq notified of this change and new order written and faxed to [facility] and Jane faxed new order to [facility] as well. Reference number is [id number] and Jacinta Tariq's fax number is [phone]. Reference number written on fax cover sheet [...] * FLUTICASONE 50 MCG/ACTUATION * Use 1 Towanda in each nostril o* ERGOCALCIFEROL (VITAMIN D2) [...] Visit Notes: >> Joshua (Rn) TOMÁS Woods SunAug 12, 2018 3:52 PM Status: Signed Jacinta Tariq from [facility] prior auth called to verify pt's dose of Avastin. Pt's weight has changed and wanted to check what dose of Avastin pt should be getting. Jane checked with Dr Gross and pt should be receiving 15mg/kg (currently 88kg which would be a dose of 1320mg). Jacinta Tariq notified of this change and new order written and faxed to [facility] and Jane faxed new order to [facility] as well. Reference number is [id number] and Jacinta Tariq's fax number is [phone]. Reference number written on fax cover sheet per her request. Encounter Status:Closed by JOSHUA WOODS on 08/12/18 TYPE AND SCREEN Collected: 08/05/2018 Status: F Source: [place] 12:22 PM [facility] REPOSITORY Order Comment: Reason for Type AND Screen/Red Cells: ANEMIA TYPE CODE TESTS RESULT OUT OF RANGE REFERENCE UNITS LAB B10.0800 O Normal BLOOD TYPE GEL NEGATIVE LAB B100.4000 Normal Antibody NEGATIVE Screen Performed By: #### B101.7450 #### [facility] [address] [place], [address] Collected: 08/05/2018 Status: F Source: [place] 12:22 PM [facility] REPOSITORY TYPE CODE TESTS RESULT OUT OF REFERENCE UNITS RANGE LAB U100.0000 [id number] TRANSFUSED PRODUCT: T AND S with Crossmatch, Red Cells COUNT: 1 Performed By: #### U100.0000 #### [facility] - refer to report for specific site CBC W/DIFF, AUTOMATED Collected: 08/05/2018 Status: F Source: [place] 12:10 PM [facility] REPOSITORY TYPE CODE TESTS RESULT OUT [...] Lymph 0.97 Performed By: #### L100.0100 #### [facility] [address] [place], [address] COMPREHENSIVE METABOLIC Collected: 08/05/2018 Status: F Source: [facility] 12:10 PM [facility] REPOSITORY TYPE CODE TESTS RESULT OUT [...] GAP 8 Performed By: #### L500.4050 #### [facility] [address] [place], [address] CBC W/DIFF, AUTOMATED Collected: 07/29/2018 Status: F Source: [place] 1:57 PM [facility] REPOSITORY TYPE CODE TESTS RESULT OUT [...] ANISO 2+ Performed By: #### L100.0100 #### [facility] [address] [place], [address] CBC W/DIFF, AUTOMATED Collected: 07/23/2018 Status: C Source: [place] 2:30 PM [facility] REPOSITORY TYPE CODE TESTS RESULT OUT [...] 07/24/18 1456 PATH REV previously reported as: February jalyn Performed By: #### L100.0100 #### [facility] [address] [place], [place], [address] COMPREHENSIVE METABOLIC Collected: 07/23/2018 Status: F Source: [facility] 2:30 PM [facility] REPOSITORY TYPE CODE TESTS RESULT OUT [...] GAP 7 Performed By: #### L500.4050 #### [facility] [place], [address] CANCER ANTIGEN 125 Collected: 07/23/2018 Status: F Source: [place] 2:30 PM [facility] REPOSITORY TYPE CODE TESTS RESULT OUT OF RANGE REFERENCE UNITS LAB L3100.5000 0.0-38.1 U/mL High CA125 59.4 2303 Result Comment: CartRescuer ECLIA methodology Performed at: [facility] [address] [id number] Lease Operator: Carlo Bass PhD, Phone: [phone] Performed By: #### L3100.5000 #### [facility] (refer to report for specific site) refer to report for address and phone number CNPN Observed: 07/23/2018 Status: COMPLETED Source: [place] 12:00 AM [facility] REPOSITORY Telephone (PRISCILLA) IVA CUEVA ([id number]) 1955 F Date Time Provider Department 07/23/18 [...] dates. Please advise and call patient at [phone]. Omar Gross DO 07/23/2018 11:04 AM Signed [...] 6 week span. DO Ania Dominguez LPN, LPN 07/23/2018 4:48 PM Signed Pt. Notified, keep [...] - Fully Assessed Reason for Visit: Question [5260] Prescriptions as of 07/23/2018 Sig: OMEPRAZOLE 40 [...] * FLUTICASONE 50 MCG/ACTUATION * Use 1 Towanda in each nostril o* ERGOCALCIFEROL (VITAMIN D2) [...] 07/23/18 PROGRESS Observed: 07/04/2018 Status: COMPLETED Source: [place] 3:45 PM [facility] [place] REPOSITORY HNO ID: [id number] Author: Omar Gross Service: (none) Author Type: Physician Type: Progress Notes Filed: 07/04/2018 3:55 PM Note Text: Diagnosis: 1) Ovarian cancer. ? HPI: The patient is a 63 year old female who presented to her PCP prior to a trip to [facility] for vaccinations. She reported that she was [...] Taxol x 6 cycles, completed 05/27/13. 6) [place]/carbo/cassandra x cycles for biopsy proven metastatic disease [...] sounds are of normal intensity in all wood. No rales, wheezes or rhonchi. CARDIOVASCULAR: Rhythm is regular. Normal intensity S1/S2. There is no gallop or murmur. ABDOMEN: The abdomen is nondistended. There is no organomegaly. No tenderness. No fluid wave. Extremities: Free of edema. SKIN: No jaundice or rash. No petechiae. NEUROLOGIC: paramedical aide II-XII are grossly intact. No focal motor weakness. ? ASSESSMENT/PLAN: (C56.1, C56.2) Cancer of both ovaries (HCC) (primary encounter diagnosis) (C78.7) Liver metastases (HCC) KPS is 90%. Biopsy-proven recurrence. [place] refractory? -She is tolerating topotecan well thus [...] DO CNOVSP Observed: 07/04/2018 Status: COMPLETED Source: [place] 11:00 AM [facility] REPOSITORY Visit (SP) Office (PRISCILLA) IVA CUEVA ([id number]) 1955 F Date Time Provider Department 07/04/18 11:00 AM OMAR GROSS During your visit today, we recorded the following information about you: Temperature Pulse Blood pressure Weight 98.3 degrees 89/minute 136/80 88 kg Omar Gross DO 07/04/2018 3:55 PM Signed Diagnosis: 1) Ovarian cancer. ? HPI: The patient is a 63 year old female who presented to her PCP prior to a trip to [facility] for vaccinations. She reported that she was [...] Taxol x 6 cycles, completed 05/27/13. 6) [place]/carbo/cassandra x cycles for biopsy proven metastatic disease [...] sounds are of normal intensity in all wood. No rales, wheezes or rhonchi. CARDIOVASCULAR: Rhythm is regular. Normal intensity S1/S2. There is no gallop or murmur. ABDOMEN: The abdomen is nondistended. There is no organomegaly. No tenderness. No fluid wave. Extremities: Free of edema. SKIN: No jaundice or rash. No petechiae. NEUROLOGIC: paramedical aide II-XII are grossly intact. No focal motor weakness. ? ASSESSMENT/PLAN: (C56.1, C56.2) Cancer of both ovaries (HCC) (primary encounter diagnosis) (C78.7) Liver metastases (HCC) KPS is 90%. Biopsy-proven recurrence. [place] refractory? -She is tolerating topotecan well thus [...] Omar Gross DO Referring Provider: OMAR GROSS [[id number]] Allergies As of Date: 07/04/2018 Noted Allergy Reaction CODEINE 05/03/2007 5 - Intolerance PERCOCET (OXYCODONE-ACETAMINOPHEN)06/29/2015 9 - Itching Seasonal [Other] 06/05/2007 ULTRAM (TRAMADOL HCL) 01/08/2013 9 - Itching VICODIN (HYDROCODONE-ACETAMINOPHE*08/26/2007 9 - Itching Date Reviewed: 07/04/2018 Reviewed by: Miracle Engel RN, RN - Fully Assessed Reason for [...] * FLUTICASONE 50 MCG/ACTUATION * Use 1 Towanda in each nostril o* ERGOCALCIFEROL (VITAMIN D2) [...] Status: F Source: [place] 11:59 AM [facility] REPOSITORY TYPE CODE TESTS RESULT OUT [...] GAP 10 Performed By: #### L500.4050 #### [facility] [address] [place], [address] CBC W/DIFF, AUTOMATED Collected: 07/03/2018 Status: C Source: [place] 11:59 AM [facility] REPOSITORY TYPE CODE TESTS RESULT OUT [...] February jalyn Performed By: #### L100.0100 #### [facility] [address] [facility] [place], [address] CANCER ANTIGEN 125 Collected: 07/03/2018 Status: F Source: [place] 11:59 AM [facility] REPOSITORY TYPE CODE TESTS RESULT OUT OF RANGE REFERENCE UNITS LAB L3100.5000 0.0-38.1 U/mL High CA125 72.9 2303 Result Comment: Meghna ECLIA methodology Performed at: [facility] [address] [id number] Lease Operator: Carlo Bass PhD, Phone: [phone] Performed By: #### L3100.5000 #### [facility] (refer to report for specific site) refer to report for address and phone number CBC W/DIFF, AUTOMATED Collected: 06/26/2018 Status: F Source: [place] 10:05 AM [facility] REPOSITORY TYPE CODE TESTS RESULT OUT [...] Lymph 1.44 Performed By: #### L100.0100 #### [facility] [address] [place], [address] [facility] Observed: 06/18/2018 Status: COMPLETED Source: [place] 12:00 AM [facility] REPOSITORY Telephone (PRISCILLA) IVA CUEVA ([id number]) 1955 F Date Time Provider Department 06/18/18 OMAR GROSS During your visit today, we recorded the following information about you: Bettina Orona Pss 06/18/2018 2:15 PM Signed Maday from [facility] Infusion called in - states that pt is supposed to start Aloxi infusion (?) today - they need an order from Dr. Gross that has his signature on it. Please fax signed order to [phone]. Jane James LPN 06/18/2018 2:28 PM Signed Order received. Will have physician sign. Jane Orona Pss 06/18/2018 2:35 PM Signed Maday called back - order needs a diagnosis as well. Ania Reed LPN, MARTELL 06/18/2018 2:51 PM Signed Orders faxed with dx code and signature MARTELL Grimaldo PSR 06/19/2018 3:28 PM Signed Maday called back and stated that she did not receive most recent fax with DX code and signature. Please resend to [phone] Thank you Hari Avilez PSR Jane James LPN 06/19/2018 4:39 PM Signed Spoke with Lilly at [facility] infusion suite. She will call back [...] * FLUTICASONE 50 MCG/ACTUATION * Use 1 Towanda in each nostril o* ERGOCALCIFEROL (VITAMIN D2) [...] FOR* Encounter Status:Closed by ANIA REED on 06/18/18 PROGRESS Observed: 06/13/2018 Status: COMPLETED Source: [place] 3:14 PM [facility] REPOSITORY [facility] ID: [id number] Author: Omar Gross Service: (none) Author Type: Physician Type: Progress Notes Filed: 06/14/2018 9:51 AM Note Text: Diagnosis: 1) Ovarian cancer. ? HPI: The patient is a 63 year old female who presented to her PCP prior to a trip to [facility] for vaccinations. She reported that she was [...] Taxol x 6 cycles, completed 05/27/13. 6) [place]/carbo/cassandra x cycles for biopsy proven metastatic disease [...] changes. She's undergone several injections by her pediatric dietician they have not helped. This is her [...] sounds are of normal intensity in all wood. No rales, wheezes or rhonchi. CARDIOVASCULAR: Rhythm is regular. Normal intensity S1/S2. There is no gallop or murmur. ABDOMEN: The abdomen is nondistended. There is no organomegaly. No tenderness. No fluid wave. Extremities: Free of edema. SKIN: No jaundice or rash. No petechiae. NEUROLOGIC: paramedical aide II-XII are grossly intact. No focal motor weakness. ? ASSESSMENT/PLAN: (C56.1, C56.2) Cancer of both ovaries (HCC) (primary encounter diagnosis) (C78.7) Liver metastases (HCC) KPS is 90%. Biopsy-proven recurrence. [place] refractory? -She is tolerating topotecan well thus [...] DO CNOVSP Observed: 06/13/2018 Status: COMPLETED Source: [place] 3:00 PM [facility] REPOSITORY Visit (SP) Office (PRISCILLA) IVA CUEVA ([id number]) 1955 F Date Time Provider Department 06/13/18 3:00 PM OMAR GROSS During your visit today, we recorded the following information about you: Temperature Pulse Blood pressure Weight 97.5 degrees 94/minute 137/75 86.9 kg Jane James LPN 06/13/2018 3:24 PM Signed Est patient. Discuss recent labs @[facility], next round of treatment. Jane Gross DO 06/14/2018 9:51 AM Signed Diagnosis: 1) Ovarian cancer. ? HPI: The patient is a 63 year old female who presented to her PCP prior to a trip to [facility] for vaccinations. She reported that she was [...] Taxol x 6 cycles, completed 05/27/13. 6) [place]/carbo/cassandra x cycles for biopsy proven metastatic disease [...] changes. She's undergone several injections by her pediatric dietician they have not helped. This is her [...] sounds are of normal intensity in all wood. No rales, wheezes or rhonchi. CARDIOVASCULAR: Rhythm is regular. Normal intensity S1/S2. There is no gallop or murmur. ABDOMEN: The abdomen is nondistended. There is no organomegaly. No tenderness. No fluid wave. Extremities: Free of edema. SKIN: No jaundice or rash. No petechiae. NEUROLOGIC: paramedical aide II-XII are grossly intact. No focal motor weakness. ? ASSESSMENT/PLAN: (C56.1, C56.2) Cancer of both ovaries (HCC) (primary encounter diagnosis) (C78.7) Liver metastases (HCC) KPS is 90%. Biopsy-proven recurrence. [place] refractory? -She is tolerating topotecan well thus [...] Omar Gross DO Referring Provider: OMAR GROSS [[id number]] Allergies As of Date: 06/13/2018 Noted Allergy [...] * FLUTICASONE 50 MCG/ACTUATION * Use 1 Towanda in each nostril o* ERGOCALCIFEROL (VITAMIN D2) 5* Take 2 capsules a week for 8 * MULTIVITAMIN TABLET Take 1 tablet by mouth once d* Medication notes this encounter GABAPENTIN 300 MG CAPSULE >> Jane James LPN 06/13/2018 3:07 PM >> JANE JAMES LPN [place] Jun 13, 2018 3:07 PM Taking 2 [...] FOR* Visit Notes: >> Jane James LPN [place] Jun 13, 2018 3:09 PM Status: Signed Est patient. Discuss recent labs @[facility], next round of treatment. Jane James LPN Encounter Status:Closed by OMAR GROSS DO on 06/14/18 CANCER ANTIGEN 125 Collected: 06/10/2018 Status: F Source: [place] 12:29 PM [facility] REPOSITORY TYPE CODE TESTS RESULT OUT OF RANGE REFERENCE UNITS LAB L3100.5000 0.0-38.1 U/mL High CA125 62.5 2303 Result Comment: Meghna ECLIA methodology Performed at: [facility] [address] [id number] Lease Operator: Carlo Bass PhD, Phone: [phone] Performed By: #### L3100.5000 #### [facility] (refer to report for specific site) refer to report for address and phone number CBC W/DIFF, AUTOMATED Collected: 06/10/2018 Status: F Source: [place] 12:25 PM [facility] REPOSITORY TYPE CODE TESTS RESULT OUT [...] Lymph 1.43 Performed By: #### L100.0100 #### [facility] [address] [place], [place], [address] COMPREHENSIVE METABOLIC Collected: 06/10/2018 Status: F Source: [facility] 12:25 PM [facility] REPOSITORY TYPE CODE TESTS RESULT OUT [...] GAP 11 Performed By: #### L500.4050 #### [facility] [address] [facility] [place], [place], [address] CBC W/DIFF, AUTOMATED Collected: 05/18/2018 Status: F Source: [place] 12:51 PM [facility] REPOSITORY TYPE CODE TESTS RESULT OUT [...] Lymph 1.60 Performed By: #### L100.0100 #### [facility] [address] [place], [address] COMPREHENSIVE METABOLIC Collected: 05/18/2018 Status: F Source: [facility] 12:51 PM [facility] REPOSITORY TYPE CODE TESTS RESULT OUT [...] GAP 4 Performed By: #### L500.4050 #### [facility] [address] [place] [address]. [place], [address] CT ABD/PEL W IVCON Observed: 04/29/2018 Status: F Source: [place] 2:46 PM [facility] REPOSITORY * * *Final Report* * * DATE OF EXAM: Apr 29 2018 2:46PM [facility] 0530 - CT ABD/PEL W IVCON [...] new adenopathy is seen. 3. Fatty liver Jordan Man: AVA Transcribe Date/Time: Apr 30 2018 4:02P Dictated by : ANTHONY DIAZ DO This examination was interpreted and the report reviewed and electronically signed by: ANTHONY DIAZ DO on Apr 30 2018 4:35PM EST [id number] Observed: 04/29/2018 Status: COMPLETED Source: [place] 2:34 PM [facility] REPOSITORY HNO ID: [id number] Author: Ofelia Landeros Ct Service: (none) Author [...] Ct April 29, 2018 2:34 PM [place] ISTAT BMP Collected: 04/29/2018 Status: F Source: [place] 2:00 PM [facility] REPOSITORY TYPE CODE TESTS RESULT OUT OF [...] + CBC Collected: 04/29/2018 Status: F Source: [place] 2:00 PM [facility] REPOSITORY TYPE CODE TESTS RESULT OUT OF REFERENCE UNITS RANGE LAB WWBC 3.70-11.00 k/uL [place] WBC 4.60 LAB WRBC 3.90-5.20 m/uL Low [place] RBC 3.30 LAB WHGB 11.5-15.5 g/dL Low [place] Hemoglobin 10.4 LAB WHCT 36.0-46.0 % Low [place] Hematocrit 32.4 LAB WMCV 80.0-100.0 fL [place] MCV 98.2 LAB WMCH 26.0-34.0 pg [place] MCH 31.5 LAB WMCHC 30.5-36.0 g/dL [place] MCHC 32.1 LAB WRDW 11.5-15.0 % [place] High RDW 16.8 LAB WPLT 150-400 k/uL [place] High Platelet Cnt 597 LAB WMPV 9.0-12.7 fL [place] MPV 9.9 Result Comment: Test performed at: [facility], [address] [place] [address]. LAB ABGRAN 1.45-7.50 k/uL Absol Gran 2.53 Count [place] CREATININE Collected: 04/29/2018 Status: F Source: [place] 1:22 PM [facility] REPOSITORY TYPE CODE TESTS RESULT OUT OF REFERENCE UNITS RANGE LAB WCRET 0.7-1.4 mg/dL Wilkinson Creatinine 0.9 CNPN Observed: 04/24/2018 Status: COMPLETED Source: [place] 12:00 AM [facility] REPOSITORY Telephone (HEMANAND) IVA CUEVA ([id number]) 1955 F Date Time Provider Department 04/24/18 OMAR GROSS During your visit today, we recorded the following information about you: Aruna Naga 04/24/2018 11:47 AM Signed Elli from [facility] called asking for information about the patients ordered CT scan. The patient decided that he would like to have the CT at [facility] and the order needs to be sent over. Please call Elli back at [phone]. Jane James LPN 04/24/2018 11:50 AM Signed Patient is here. Since the CT scan has already been precerted for [facility], patient has decided to have the test [...] since she's had all previous CTs at [facility], we'll need to get a CD of her most recent CTs from there sent her to get uploaded. DO Ashleigh Dominguez PSR 04/26/2018 9:05 AM Signed Left voicemail for patient to return call re: below and to arrange for documentation from [facility] results. Ashleigh Gandara PSR Daiana Aden PSR 04/26/2018 11:54 AM Signed Patient returned call and is aware of message below Jane James LPN 04/26/2018 12:21 PM Signed Disc requested from [facility]. Jane James LPN Allergies As of Date: 04/24/2018 Noted Allergy Reaction CODEINE 05/03/2007 5 - Intolerance PERCOCET (OXYCODONE-ACETAMINOPHEN)06/29/2015 9 - Itching Seasonal [Other] 06/05/2007 ULTRAM (TRAMADOL HCL) 01/08/2013 9 - Itching VICODIN (HYDROCODONE-ACETAMINOPHE*08/26/2007 9 - Itching Date Reviewed: 04/18/2018 Reviewed by: Jnae James LPN - Fully Assessed Reason for [...] * FLUTICASONE 50 MCG/ACTUATION * Use 1 Towanda in each nostril o* ERGOCALCIFEROL (VITAMIN D2) [...] REPORT Observed: 04/18/2018 Status: F Source: [place] 12:[address] [facility] Medical Records Department [address] [place] [address] Downtime Report MR#: [id number] Acct: [id number] Name: IVA CUEVA Rep #: [id number] : 1955 63 From: Kamron Oh PCP: [...] REPORT Observed: 04/18/2018 Status: F Source: [place] 12:[address] [facility] Medical Records Department [address] [place] [address] Downtime Report MR#: [id number] Acct: [id number] Name: IVA CUEVA Rep #: [id number] : 1955 63 From: Kamron Oh PCP: [...] 04/18/2018 Status: F Source: [place] 12:[address] [facility] Medical Records Department [address] [place] [address] Downtime Report MR#: [id number] Acct: [id number] Name: IVA CUEVA Rep #: [id number] : 1955 63 From: Kamron Oh PCP: [...] 04/18/2018 Status: F Source: [place] 12:17 PM [facility] Medical Records Department [address] [place] [address] Downtime Report MR#: [id number] Acct: [id number] Name: IVA CUEVA Rep #: [id number] : 1955 63 From: Kamron Oh PCP: Peter Deras MD Status: REG CLI This patient was seen during an EMR downtime April 01, 2018 - April 08, 2018. This patient may have a combination of paper and electronic documentation or all paper documentation. All documentation is viewable within the e-chart portion of [facility] for each patient visit. DOWNTIME REPORT Observed: 04/18/2018 Status: F Source: [place] 12:16 PM [facility] REPOSITORY [facility] Medical Records Department [address] [place] [address] Downtime Report MR#: [id number] Acct: [id number] Name: IVA CUEVA Rep #: [id number] : 1955 63 From: Kamron Oh PCP: Peter Deras MD Status: DEP CLI This patient was seen during an EMR downtime April 01, 2018 - April 08, 2018. This patient may have a combination of paper and electronic documentation or all paper documentation. All documentation is viewable within the e-chart portion of [facility] for each patient visit. PROGRESS Observed: 04/18/2018 Status: COMPLETED Source: [place] 12:03 PM [facility] REPOSITORY HNO ID: [id number] Author: Terrance Renee Service: (none) Author Type: Physician Type: Progress Notes Filed: 04/19/2018 8:10 AM Note Text: Diagnosis: 1) Ovarian cancer. ? HPI: The patient is a 63 year old female who presented to her PCP prior to a trip to [facility] for vaccinations. She reported that she was [...] Taxol x 6 cycles, completed 05/27/13. 6) [place]/carbo/cassandra x cycles for biopsy proven metastatic disease [...] will be going on a cruise to [place] the second week of April. She saw [...] sounds are of normal intensity in all wood. No rales, wheezes or rhonchi. CARDIOVASCULAR: Rhythm is regular. Normal intensity S1/S2. There is no gallop or murmur. ABDOMEN: The abdomen is nondistended. There is no organomegaly. No tenderness. No fluid wave. Extremities: Free of edema. SKIN: No jaundice or rash. No petechiae. NEUROLOGIC: paramedical aide II-XII are grossly intact. No focal motor weakness. ? LABS: review by me and the patient today. ASSESSMENT/PLAN: (C56.1, C56.2) Cancer of both ovaries (HCC) (primary encounter diagnosis) (C78.7) Liver metastases (HCC) KPS is 90%. Biopsy-proven recurrence. [place] refractory.? -She is tolerating topotecan well thus [...] Jo CNOVSP Observed: 04/18/2018 Status: COMPLETED Source: [place] 11:30 AM [facility] REPOSITORY Visit (SP) Office (PRISCILLA) IVA CUEVA ([id number]) 1955 F Date Time Provider Department 04/18/18 11:30 AM TERRANCE RENEE During your visit today, we recorded the following information about you: Temperature Pulse Blood pressure Weight 97.5 degrees 79/minute 177/80 86.6 kg Jane James LPN 04/18/2018 11:50 AM Signed Est patient. Labs at [facility]. Jane Renee MD 04/19/2018 8:10 AM Signed Diagnosis: 1) Ovarian cancer. ? HPI: The patient is a 63 year old female who presented to her PCP prior to a trip to [facility] for vaccinations. She reported that she was [...] Taxol x 6 cycles, completed 05/27/13. 6) [place]/carbo/cassandra x cycles for biopsy proven metastatic disease [...] will be going on a cruise to [place] the second week of April. She saw [...] sounds are of normal intensity in all wood. No rales, wheezes or rhonchi. CARDIOVASCULAR: Rhythm is regular. Normal intensity S1/S2. There is no gallop or murmur. ABDOMEN: The abdomen is nondistended. There is no organomegaly. No tenderness. No fluid wave. Extremities: Free of edema. SKIN: No jaundice or rash. No petechiae. NEUROLOGIC: paramedical aide II-XII are grossly intact. No focal motor weakness. ? LABS: review by me and the patient today. ASSESSMENT/PLAN: (C56.1, C56.2) Cancer of both ovaries (HCC) (primary encounter diagnosis) (C78.7) Liver metastases (HCC) KPS is 90%. Biopsy-proven recurrence. [place] refractory.? -She is tolerating topotecan well thus [...] Dr. Peter Jo Referring Provider: OMAR GROSS [[id number]] Allergies As of Date: 04/18/2018 Noted Allergy [...] of Service: EST PATIENT VISIT LEVEL 4 [[id number]] Disposition: Return in about 1 week (around [...] * FLUTICASONE 50 MCG/ACTUATION * Use 1 Towanda in each nostril o* ERGOCALCIFEROL (VITAMIN D2) [...] INVALID FOR* Visit Notes: >> Jane James MARTELL [facility] Apr 18, 2018 11:36 AM Status: Signed Est patient. Labs at [facility]. Jane James LPN Encounter Status:Closed by TERRANCE RENEE MD on 04/19/18 CNCO Observed: 04/18/2018 Status: COMPLETED Source: [place] 12:00 AM [facility] REPOSITORY Letter Text [address] [address] Catie Jo M.D. corporate security manager Section of Gynecologic Oncology Strip Catcher and [facility] [place] Office: [phone] [email or web address] April 18, 2018 RE: Iva Cueva DOS: [...] M.D. CMM/adm CC: DO Peter Salazar MD [facility] Observed: 04/18/2018 Status: COMPLETED Source: [place] 12:00 AM [facility] REPOSITORY Telephone (PRISCILLA) СВЕТЛАНАIVA CARDENAS ([id number]) 1955 F Date Time Provider Department 04/18/18 [...] patient has CT and Labs done at [facility]. Hari Avilez PSEvan 04/18/2018 2:24 PM Signed Patient called back and acknowledges understanding of message from Dr. Renee. Hari Avilez PSR Josephine Woodard Psr 04/18/2018 7:49 PM Signed Patient scheduled to see Dr. Gross on 05/07 at 8:50. Please contact patient and confirm this date/time with her. Mar Treadwell Psevan 04/19/2018 8:29 AM Signed I called and [...] week. Her CT scan is scheduled at [facility] for 04/26/18 Mar Gross DO 04/20/2018 10:10 AM Signed We'll schedule follow up based on upcoming CT results. DO Lora Dominguez 04/22/2018 10:37 AM Signed Spoke with patient and informed her our office will be contacting her after CT @ [facility] on 04/26. Allergies As of Date: [...] * FLUTICASONE 50 MCG/ACTUATION * Use 1 Towanda in each nostril o* ERGOCALCIFEROL (VITAMIN D2) [...] 04/16/2018 Status: C Source: [place] 10:19 AM [facility] REPOSITORY Order Comment: CRITICAL VALUE VERIFIED. CALLED TO LORIE AT [facility] 04/16/18 Bonnie Tran. RESULTS READ BACK BY SAME . [...] 04/17/18 0950 PATH REV previously reported as: May foll Performed By: #### L100.0100 #### [facility] [address] [place], [address] COMPREHENSIVE METABOLIC Collected: 04/16/2018 Status: F Source: [place] [facility] 10:19 AM [facility] REPOSITORY TYPE CODE TESTS RESULT OUT [...] GAP 7 Performed By: #### L500.4050 #### [facility] [address] [place], [place], [address] CANCER ANTIGEN 125 Collected: 04/16/2018 Status: F Source: [place] 10:19 AM [facility] REPOSITORY TYPE CODE TESTS RESULT OUT OF RANGE REFERENCE UNITS LAB L3100.5000 0.0-38.1 U/mL High CA125 48.1 2303 Result Comment: CartRescuer ECLIA methodology Performed at: [facility] [address] [id number] Lease Operator: Carlo Bass PhD, Phone: [phone] Performed By: #### L3100.5000 #### [facility] (refer to report for specific site) refer to report for address and phone number CNOVSP Observed: 04/12/2018 Status: COMPLETED Source: [place] 3:00 PM [facility] REPOSITORY Visit (SP) Office (REY) ANAYIVA Ronit ([id number]) 1955 F Date Time Provider Department 04/12/18 3:00 PM CATIE JO During your visit today, we recorded the following information about you: Temperature Pulse Respiration Blood pressure 97.4 degrees 81/minute 18/minute 154/77 Weight 85.4 kg Catie Jo MD 04/12/2018 4:56 PM Signed DATE OF SERVICE: 04/12/2018 PROBLEM: Iva Cueva [...] 7 CA 125 (U/mL) - done at [facility] Date Value 01/30/2018 25 08/06/2017 102.9 04/04/2017 [...] She is alert, oriented, pleasant and cooperative. Buckle And Button Maker for exam: n/a ASSESSMENT: 1. 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 PLAN: CA125 increasing again If rises after this cycle consider CT scans sooner than planned. If progressing, we reviewed options and definitions. We discussed that she is, by definition, mashpee resistant with a 6 month cut-off. However, she had a CR to carboplatin/ Taxol and was right at 6 months for recurrence Given this I would favor another try with carboplatin/ Taxol and consider maintenance therapy with a PARP inhibitor (Olapaprib or Nirapirib), in pts who respond to mashpee-based therapy. We discussed differences in PFS based on gene status, but could benefit even if not HRD positive. Consider repeat CT guided biopsy for tissue confirmation and can send some of the biopsy for Platiza or [employer] testing. Would make sure [...] note were sent to: Marcy Bruno MD [address] [place] [address] CC: DO Peter Salazar MD (PCP) Referring Provider: CATIE JO [[id number]] Allergies As of Date: 04/12/2018 Noted Allergy Reaction CODEINE 05/03/2007 5 - Intolerance PERCOCET (OXYCODONE-ACETAMINOPHEN)06/29/2015 9 - Itching Seasonal [Other] 06/05/2007 ULTRAM (TRAMADOL HCL) 01/08/2013 9 - Itching VICODIN (HYDROCODONE-ACETAMINOPHE*08/26/2007 9 - Itching Date Reviewed: 04/12/2018 Reviewed by: Saritha Corrales (Martell) MARTELL Del Cid - Fully Assessed Reason [...] * FLUTICASONE 50 MCG/ACTUATION * Use 1 Towanda in each nostril o* ERGOCALCIFEROL (VITAMIN D2) [...] 04/12/18 PROGRESS Observed: 04/08/2018 Status: COMPLETED Source: [place] 12:25 AM [facility] REPOSITORY O ID: [id number] Author: Catie Jo Service: (none) Author Type: [...] 7 CA 125 (U/mL) - done at [facility] Date Value 01/30/2018 25 08/06/2017 102.9 04/04/2017 [...] She is alert, oriented, pleasant and cooperative. Buckle And Button Maker for exam: n/a ASSESSMENT: 1. 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 PLAN: CA125 increasing again If rises after this cycle consider CT scans sooner than planned. If progressing, we reviewed options and definitions. We discussed that she is, by definition, mashpee resistant with a 6 month cut- off. However, she had a CR to carboplatin/ Taxol and was right at 6 months for recurrence Given this I would favor another try with carboplatin/ Taxol and consider maintenance therapy with a PARP inhibitor (Olapaprib or Nirapirib), in pts who respond to mashpee-based therapy. We discussed differences in PFS based on gene status, but could benefit even if not HRD positive. Consider repeat CT guided biopsy for tissue confirmation and can send some of the biopsy for Platiza or [employer] testing. Would make sure that testing is [...] note were sent to: Marcy Bruno MD [address] [place] [address] CC: DO Peter Salazar MD (PCP) CNOVSP Observed: 03/29/2018 Status: COMPLETED Source: [place] 10:40 AM [facility] REPOSITORY Visit (SP) Office (HEMAWS) IVA CUEVA ([id number]) 1955 F Date Time Provider Department 03/29/18 10:40 AM GINNY OMAR POEANAND During your visit today, we recorded the following information about you: Temperature Pulse Blood pressure Weight 97.5 degrees 85/minute 149/75 85.7 kg Height 1.626 m Omar GrossDO 03/29/2018 12:11 PM Signed Diagnosis: 1) Ovarian cancer. HPI: The patient is a 63 year old female who presented to her PCP prior to a trip to [facility] for vaccinations. She reported that she was [...] Taxol x 6 cycles, completed 05/27/13. 6) [place]/carbo/cassandra x cycles for biopsy proven metastatic disease [...] sounds are of normal intensity in all wood. No rales, wheezes or rhonchi. CARDIOVASCULAR: Rhythm is regular. Normal intensity S1/S2. There is no gallop or murmur. ABDOMEN: The abdomen is nondistended. There is no organomegaly. No tenderness. No fluid wave. Extremities: Free of edema. SKIN: No jaundice or rash. No petechiae. NEUROLOGIC: paramedical aide II-XII are grossly intact. No focal motor weakness. ASSESSMENT/PLAN: (C56.1, C56.2) Cancer of both ovaries (HCC) (primary encounter diagnosis) (C78.7) Liver metastases (HCC) KPS is 90%. Biopsy-proven recurrence. [place] refractory. -She is tolerating topotecan well thus [...] Omar Gross DO Referring Provider: OMAR GROSS [[id number]] Allergies As of Date: 03/29/2018 Noted Allergy [...] * FLUTICASONE 50 MCG/ACTUATION * Use 1 Towanda in each nostril o* ERGOCALCIFEROL (VITAMIN D2) [...] 03/29/18 PROGRESS Observed: 03/29/2018 Status: COMPLETED Source: [place] 9:00 AM [facility] REPOSITORY [facility] ID: [id number] Author: Omar Gross Service: (none) Author Type: Physician Type: Progress Notes Filed: 03/29/2018 12:11 PM Note Text: Diagnosis: 1) Ovarian cancer. HPI: The patient is a 63 year old female who presented to her PCP prior to a trip to [facility] for vaccinations. She reported that she was [...] Taxol x 6 cycles, completed 05/27/13. 6) [place]/carbo/cassandra x cycles for biopsy proven metastatic disease [...] sounds are of normal intensity in all wood. No rales, wheezes or rhonchi. CARDIOVASCULAR: Rhythm is regular. Normal intensity S1/S2. There is no gallop or murmur. ABDOMEN: The abdomen is nondistended. There is no organomegaly. No tenderness. No fluid wave. Extremities: Free of edema. SKIN: No jaundice or rash. No petechiae. NEUROLOGIC: paramedical aide II-XII are grossly intact. No focal motor weakness. ASSESSMENT/PLAN: (C56.1, C56.2) Cancer of both ovaries (HCC) (primary encounter diagnosis) (C78.7) Liver metastases (HCC) KPS is 90%. Biopsy-proven recurrence. [place] refractory. -She is tolerating topotecan well thus [...] 03/27/2018 Status: F Source: [place] 1:35 PM [facility] REPOSITORY TYPE CODE TESTS RESULT OUT [...] Lymph 1.50 Performed By: #### L100.0100 #### [facility] [address] [place], [address] COMPREHENSIVE METABOLIC Collected: 03/27/2018 Status: F Source: [facility] 1:35 PM [facility] REPOSITORY TYPE CODE TESTS RESULT OUT [...] GAP 10 Performed By: #### L500.4050 #### [facility] [address] [place], [address] CANCER ANTIGEN 125 Collected: 03/27/2018 Status: F Source: [place] 1:35 PM [facility] REPOSITORY TYPE CODE TESTS RESULT OUT OF RANGE REFERENCE UNITS LAB L3100.5000 0.0-38.1 U/mL High CA125 49.6 2303 Result Comment: CartRescuer ECLIA methodology Performed at: [facility] [employer] [facility] [address] [id number] Lease Operator: Carlo Bass PhD, Phone: [phone] Performed By: #### L3100.5000 #### [facility] (refer to report for specific site) refer to report for address and phone number CBC-COMPLETE BLOOD CNT Collected: 03/04/2018 Status: F Source: [place] NO DIFF 1:45 PM [facility] REPOSITORY TYPE CODE TESTS RESULT OUT [...] L100.1900 150-450 K/mm3 High PLT 511 LAB L100.1999 6.2-12.0 fl Normal MPV 8.9 Performed By: #### L100.0500 #### [facility] [address] [place], [address] PROGRESS Observed: 02/27/2018 Status: COMPLETED Source: [place] 11:33 AM [facility] REPOSITORY HNO ID: [id number] Author: Omar Gross Service: (none) Author Type: Physician Type: Progress Notes Filed: 02/27/2018 12:24 PM Note Text: Diagnosis: 1) Ovarian cancer. HPI: The patient is a 63 year old female who presented to her PCP prior to a trip to [facility] for vaccinations. She reported that she was [...] Taxol x 6 cycles, completed 05/27/13. 6) [place]/carbo/cassandra x cycles for biopsy proven metastatic disease [...] sounds are of normal intensity in all wood. No rales, wheezes or rhonchi. CARDIOVASCULAR: Rhythm is regular. Normal intensity S1/S2. There is no gallop or murmur. ABDOMEN: The abdomen is nondistended. There is no organomegaly. No tenderness. No fluid wave. Extremities: Free of edema. SKIN: No jaundice or rash. No petechiae. NEUROLOGIC: paramedical aide II-XII are grossly intact. No focal motor weakness. ASSESSMENT/PLAN: 1) Ovarian cancer. KPS is 90%. Biopsy-proven recurrence. [place] refractory. -She is tolerating topotecan well thus [...] DO CNOVSP Observed: 02/27/2018 Status: COMPLETED Source: [place] 11:30 AM [facility] REPOSITORY Visit (SP) Office (PRISCILLA) IVA CUEVA ([id number]) 1955 F Date Time Provider Department 02/27/18 11:30 AM OMAR GROSS During your visit today, we recorded the following information about you: Temperature Pulse Blood pressure Weight 98 degrees 89/minute 127/70 88.5 kg Omar Gross DO 02/27/2018 12:24 PM Signed Diagnosis: 1) Ovarian cancer. HPI: The patient is a 63 year old female who presented to her PCP prior to a trip to [facility] for vaccinations. She reported that she was [...] Taxol x 6 cycles, completed 05/27/13. 6) [place]/carbo/cassandra x cycles for biopsy proven metastatic disease [...] sounds are of normal intensity in all wood. No rales, wheezes or rhonchi. CARDIOVASCULAR: Rhythm is regular. Normal intensity S1/S2. There is no gallop or murmur. ABDOMEN: The abdomen is nondistended. There is no organomegaly. No tenderness. No fluid wave. Extremities: Free of edema. SKIN: No jaundice or rash. No petechiae. NEUROLOGIC: paramedical aide II-XII are grossly intact. No focal motor weakness. ASSESSMENT/PLAN: 1) Ovarian cancer. KPS is 90%. Biopsy-proven recurrence. [place] refractory. -She is tolerating topotecan well thus [...] monitor blood pressure. DO Ania Dominguez LPN, LPN 02/27/2018 12:01 PM Signed Est pt. Discuss recent labs, tx tomorrow Ania Reed LPN Referring Provider: OMAR GROSS [[id number]] Allergies As of Date: 02/27/2018 Noted Allergy [...] * FLUTICASONE 50 MCG/ACTUATION * Use 1 Towanda in each nostril o* ERGOCALCIFEROL (VITAMIN D2) [...] INVALID FOR* Visit Notes: >> Ania Vasquez (Grinder Set Up Operator Thread Tool) OctavianoabiMARTELL SunFebruary 27, 2018 11:49 AM Status: Signed Est pt. Discuss recent labs, tx tomorrow Ania BrumfieldMARTELL alex Encounter Status:Closed by OMAR GROSS DO on 02/27/18 CBC W/DIFF, AUTOMATED Collected: 02/27/2018 Status: F Source: [place] 9:44 AM [facility] REPOSITORY TYPE CODE TESTS RESULT OUT [...] Lymph 1.43 Performed By: #### L100.0100 #### [facility] [address] [place], [address] COMPREHENSIVE METABOLIC Collected: 02/27/2018 Status: F Source: [place] 9:44 AM [facility] REPOSITORY TYPE CODE TESTS RESULT OUT [...] GAP 7 Performed By: #### L500.4050 #### [facility] [address] [place], [address] CANCER ANTIGEN 125 Collected: 02/27/2018 Status: F Source: [place] 9:44 AM [facility] REPOSITORY TYPE CODE TESTS RESULT OUT OF RANGE REFERENCE UNITS LAB L3100.5000 0.0-38.1 U/mL Normal CA125 27.9 2303 Result Comment: Meghna ECLIA methodology Performed at: [facility] [id number] Lease Operator: Carlo Bass PhD, Phone: [phone] Performed By: #### L3100.5000 #### [facility] (refer to report for specific site) refer to report for address and phone number TYPE AND SCREEN Collected: 02/12/2018 Status: F Source: [place] 12:26 PM [facility] REPOSITORY Order Comment: CMV NEG?* N Give When? [id number] Irradiated? N Leukodepleted? Y Reason for Type AND Screen/Red Cells: ANEMIA TYPE CODE TESTS RESULT OUT OF RANGE REFERENCE UNITS LAB B10.0800 O Normal BLOOD TYPE GEL NEGATIVE LAB B100.4000 Normal Antibody NEGATIVE Screen Performed By: #### B101.7450 #### [facility] [address] [place], [address] RC Collected: 02/12/2018 Status: F Source: [place] 12:26 PM [facility] REPOSITORY TYPE CODE TESTS RESULT OUT OF REFERENCE UNITS RANGE LAB U100.0000 [id number] TRANSFUSED PRODUCT: T AND S with Crossmatch, Red Cells COUNT: 2 Performed By: #### U100.0000 #### [facility] - refer to report for specific site CBC W/DIFF, AUTOMATED Collected: 02/11/2018 Status: C Source: [place] 11:55 AM [facility] REPOSITORY TYPE CODE TESTS RESULT OUT [...] 0957 PATH REV previously reported as: February jalyn Performed By: #### L100.0100 #### [facility] [address] [place], [address] CBC-COMPLETE BLOOD CNT Collected: 02/04/2018 Status: F Source: [place] NO DIFF 1:45 PM [facility] REPOSITORY TYPE CODE TESTS RESULT OUT [...] MPV 9.4 Performed By: #### L100.0500 #### [facility] [address] [place], [place], [address] CBC W/DIFF, AUTOMATED Collected: 01/30/2018 Status: C Source: [place] 12:37 PM [facility] REPOSITORY TYPE CODE TESTS RESULT OUT [...] 01/31/18 1145 PATH REV previously reported as: Iman gunderson Performed By: #### L100.0100 #### [facility] [address] [place], [address] COMPREHENSIVE METABOLIC Collected: 01/30/2018 Status: F Source: [facility] 12:37 PM [facility] REPOSITORY TYPE CODE TESTS RESULT OUT [...] GAP 7 Performed By: #### L500.4050 #### [facility] [address] [place], [address] CANCER ANTIGEN 125 Collected: 01/30/2018 Status: F Source: [place] 12:37 PM [facility] REPOSITORY TYPE CODE TESTS RESULT OUT OF RANGE REFERENCE UNITS LAB L3100.5000 0.0-38.1 U/mL Normal CA125 25.0 2303 Result Comment: CartRescuer ECLIA methodology Performed at: - [facility] [address] [id number] Lease Operator: Carlo Bass PhD, Phone: [phone] Performed By: #### L3100.5000 #### [facility] (refer to report for specific site) refer to report for address and phone number CBC W/DIFF, AUTOMATED Collected: 01/14/2018 Status: F Source: [place] 11:40 AM [facility] REPOSITORY TYPE CODE TESTS RESULT OUT [...] Lymph 1.47 Performed By: #### L100.0100 #### [facility] [address] [place], [address] PROGRESS Observed: 01/09/2018 Status: COMPLETED Source: [place] 4:02 PM [facility] REPOSITORY HNO ID: [id number] Author: Omar Gross Service: (none) Author Type: Physician Type: Progress Notes Filed: 01/11/2018 9:47 AM Note Text: Diagnosis: 1) Ovarian cancer. HPI: The patient is a 62 year old female who presented to her PCP prior to a trip to [facility] for vaccinations. She reported that she was [...] Taxol x 6 cycles, completed 05/27/13. 6) [place]/carbo/cassandra x cycles for biopsy proven metastatic disease [...] sounds are of normal intensity in all wood. No rales, wheezes or rhonchi. CARDIOVASCULAR: Rhythm is regular. Normal intensity S1/S2. There is no gallop or murmur. ABDOMEN: The abdomen is nondistended. There is no organomegaly. No tenderness. No fluid wave. Extremities: Free of edema. SKIN: No jaundice or rash. No petechiae. NEUROLOGIC: paramedical aide II-XII are grossly intact. No focal motor weakness. ASSESSMENT/PLAN: 1) Ovarian cancer. KPS is 90%. Biopsy-proven recurrence. [place] refractory. -She is tolerating topotecan well thus far. -CA125 trending down. -Symptomatic anemia requiring transfusion. Plan: -Cycle #4 topotecan on Sunday 01/14 pending CBC results that day. -Decrease Neupogen to 7 days post cycle. -CT C/A/P pending CA125 trend. -Continue olanzapine. -Somatic BRCA mutation analysis negative. DO KYLER Dominguez Observed: 01/09/2018 Status: COMPLETED Source: [place] 4:00 PM [facility] REPOSITORY Visit (SP) Office (PRISCILLA) IVA CUEVA ([id number]) 1955 F Date Time Provider Department 01/09/18 4:00 PM OMAR GROSS During your visit today, we recorded the following information about you: Temperature Pulse Blood pressure Weight 97.9 degrees 86/minute 127/78 87.3 kg Jane Elaine MOURA 01/09/2018 4:18 PM Signed Est patient. Discuss recent labs. Jane Gross DO 01/11/2018 9:47 AM Signed Diagnosis: 1) Ovarian cancer. HPI: The patient is a 62 year old female who presented to her PCP prior to a trip to [facility] for vaccinations. She reported that she was [...] Taxol x 6 cycles, completed 05/27/13. 6) [place]/carbo/cassandra x cycles for biopsy proven metastatic disease [...] sounds are of normal intensity in all wood. No rales, wheezes or rhonchi. CARDIOVASCULAR: Rhythm is regular. Normal intensity S1/S2. There is no gallop or murmur. ABDOMEN: The abdomen is nondistended. There is no organomegaly. No tenderness. No fluid wave. Extremities: Free of edema. SKIN: No jaundice or rash. No petechiae. NEUROLOGIC: paramedical aide II-XII are grossly intact. No focal motor weakness. ASSESSMENT/PLAN: 1) Ovarian cancer. KPS is 90%. Biopsy-proven recurrence. [place] refractory. -She is tolerating topotecan well thus far. -CA125 trending down. -Symptomatic anemia requiring transfusion. Plan: -Cycle #4 topotecan on Sunday 01/14 pending CBC results that day. -Decrease Neupogen to 7 days post cycle. -CT C/A/P pending CA125 trend. -Continue olanzapine. -Somatic BRCA mutation analysis negative. Omar Gross DO Referring Provider: OMAR GROSS [[id number]] Allergies As of Date: 01/09/2018 Noted Allergy [...] * FLUTICASONE 50 MCG/ACTUATION * Use 1 Towanda in each nostril o* ERGOCALCIFEROL (VITAMIN D2) 5* Take 2 capsules a week for 8 * MULTIVITAMIN TABLET Take 1 tablet by mouth once d* Medication notes this encounter NABUMETONE 500 MG TABLET >> Jane James LPN 01/09/2018 3:59 PM >> JANE JAMES LPN SunJan 09, 2018 3:59 PM Takes 1 tablet twice a day GABAPENTIN 300 MG CAPSULE >> Jane James LPN 01/09/2018 3:58 PM >> JANE JAMES LPN SunJan 09, 2018 3:58 PM Takes 2 [...] INVALID FOR* Visit Notes: >> Jane James IRRIGATION FLUME LAYER SunJan 09, 2018 3:59 PM Status: Signed Est patient. Discuss recent labs. Jane James IRRIGATION FLUME LAYER Encounter Status:Closed by OMAR GROSS DO on 01/11/18 CBC W/DIFF, AUTOMATED Collected: 01/09/2018 Status: C Source: [place] 10:12 AM [facility] REPOSITORY TYPE CODE TESTS RESULT OUT [...] Jc Snyder M.D. 01/10/18 AMENDED REPORT 01/10/18 0723 PATH REV previously reported as: February jalyn Performed By: #### L100.0100 #### [facility] [address] [place], [place], [address] COMPREHENSIVE METABOLIC Collected: 01/09/2018 Status: F Source: [facility] 10:12 AM [facility] REPOSITORY TYPE CODE TESTS RESULT OUT [...] GAP 6 Performed By: #### L500.4050 #### [facility] [address] [facility]. [place], [place], [address] CANCER ANTIGEN 125 Collected: 01/09/2018 Status: F Source: [place] 10:12 AM [facility] REPOSITORY TYPE CODE TESTS RESULT OUT OF RANGE REFERENCE UNITS LAB L3100.5000 0.0-38.1 U/mL Normal CA125 25.2 2303 Result Comment: CartRescuer ECLIA methodology Performed at: [facility] - [facility] [address] [id number] Lease Operator: Carlo Bass PhD, Phone: [phone] Performed By: #### L3100.5000 #### [facility] (refer to report for specific site) refer to report for address and phone number TYPE AND SCREEN Collected: 01/02/2018 Status: F Source: [place] 4:21 PM [facility] REPOSITORY Order Comment: CMV NEG?* N Give When? When Ready Irradiated? N Leukodepleted? Y Reason for Type AND Screen/Red Cells: ANEMIA TYPE CODE TESTS RESULT OUT OF RANGE REFERENCE UNITS LAB B10.0800 O Normal BLOOD TYPE GEL NEGATIVE LAB B100.4000 Normal Antibody NEGATIVE Screen Performed By: #### B101.7450 #### [facility] [address] [facility]. [place], [place], [address] RC Collected: 01/02/2018 Status: F Source: [place] 4:21 PM [facility] REPOSITORY TYPE CODE TESTS RESULT OUT OF REFERENCE UNITS RANGE LAB U100.0000 [id number] TRANSFUSED PRODUCT: T AND S with Crossmatch, Red Cells COUNT: 2 Performed By: #### U100.0000 #### [facility] - refer to report for specific site CBC W/DIFF, AUTOMATED Collected: 01/02/2018 Status: F Source: [place] 11:27 AM [facility] REPOSITORY TYPE CODE TESTS RESULT OUT [...] Normal RARE Performed By: #### L100.0100 #### [facility] [address] [place], [place], [address] CBC W/DIFF, AUTOMATED Collected: 12/24/2017 Status: C Source: [place] 1:00 PM [facility] REPOSITORY TYPE CODE TESTS RESULT OUT [...] 1502 PATH REV previously reported as: February jalyn Performed By: #### L100.0100 #### [facility] [address] [place], [address] CNOVSP Observed: 12/19/2017 Status: COMPLETED Source: [place] 11:50 AM [facility] REPOSITORY Visit (SP) Office (HEMAWS) IVA CUEVA ([id number]) 1955 F Date Time Provider Department 12/19/17 11:50 AM OMAR GROSS During your visit today, we recorded the following information about you: Temperature Pulse Blood pressure Weight 98 degrees 106/minute 131/83 87.1 kg Omar Gross DO 12/19/2017 12:39 PM Signed Diagnosis: 1) Ovarian cancer. HPI: The patient is a 62 year old female who presented to her PCP prior to a trip to [facility] for vaccinations. She reported that she was [...] Taxol x 6 cycles, completed 05/27/13. 6) [place]/carbo/cassandra x cycles for biopsy proven metastatic disease [...] sounds are of normal intensity in all wood. No rales, wheezes or rhonchi. CARDIOVASCULAR: Rhythm is regular. Normal intensity S1/S2. There is no gallop or murmur. ABDOMEN: The abdomen is nondistended. There is no organomegaly. No tenderness. No fluid wave. Extremities: Free of edema. SKIN: No jaundice or rash. No petechiae. NEUROLOGIC: paramedical aide II-XII are grossly intact. No focal motor weakness. ASSESSMENT/PLAN: 1) Ovarian cancer. KPS is 90%. Biopsy-proven recurrence. [place] refractory. -She is tolerating topotecan well thus [...] Ania Reed LPN Referring Provider: OMAR GROSS [[id number]] Allergies As of Date: 12/19/2017 Noted Allergy Reaction CODEINE 05/03/2007 5 - Intolerance PERCOCET (OXYCODONE-ACETAMINOPHEN)06/29/2015 9 - Itching Seasonal [Other] 06/05/2007 ULTRAM (TRAMADOL HCL) 01/08/2013 9 - Itching VICODIN (HYDROCODONE-ACETAMINOPHE*08/26/2007 9 - Itching Date Reviewed: 12/19/2017 Reviewed by: Ania Vasquez (Martell) MARTELL Reed [...] * FLUTICASONE 50 MCG/ACTUATION * Use 1 Towanda in each nostril o* ERGOCALCIFEROL (VITAMIN D2) [...] C56.2] INVALID FOR* Visit Notes: >> Ania Bishop) MARTELL Reed SunDec 19, 2017 11:56 AM Status: Signed Est pt. Discuss recent lab results Ania Reed LPN Encounter Status:Closed by OMAR GROSS DO on 12/19/17 PROGRESS Observed: 12/19/2017 Status: COMPLETED Source: [place] 11:44 AM [facility] REPOSITORY O ID: [id number] Author: Omar Gross Service: (none) Author Type: Physician Type: Progress Notes Filed: 12/19/2017 12:39 PM Note Text: Diagnosis: 1) Ovarian cancer. HPI: The patient is a 62 year old female who presented to her PCP prior to a trip to [facility] for vaccinations. She reported that she was [...] Taxol x 6 cycles, completed 05/27/13. 6) [place]/carbo/cassandra x cycles for biopsy proven metastatic disease [...] sounds are of normal intensity in all wood. No rales, wheezes or rhonchi. CARDIOVASCULAR: Rhythm is regular. Normal intensity S1/S2. There is no gallop or murmur. ABDOMEN: The abdomen is nondistended. There is no organomegaly. No tenderness. No fluid wave. Extremities: Free of edema. SKIN: No jaundice or rash. No petechiae. NEUROLOGIC: paramedical aide II-XII are grossly intact. No focal motor weakness. ASSESSMENT/PLAN: 1) Ovarian cancer. KPS is 90%. Biopsy-proven recurrence. [place] refractory. -She is tolerating topotecan well thus [...] BRCA mutation analysis pending. Omar Gross DO BANNER PANEL Collected: 12/19/2017 Status: F Source: [place] 10:55 AM [facility] REPOSITORY Order Comment: CRITICAL VALUE VERIFIED. CALLED TO MALLORY AT 'S OFFICE 12/19/17 1117 Tiki Tran. RESULTS READ BACK BY SAME . TYPE CODE TESTS RESULT OUT OF RANGE REFERENCE UNITS LAB L100.4450 0-5 % Normal NRBC, FLAGGED 0.3 LAB L100.4455 0-5 10 3/uL Normal NRBC # 0.21 Performed By: #### L100.4425, L100.0100 #### [facility] [address] [place], [place], [address] CBC W/DIFF, AUTOMATED Collected: 12/19/2017 Status: C Source: [place] 10:55 AM [facility] REPOSITORY Order Comment: CRITICAL VALUE VERIFIED. CALLED TO MALLORY AT 'S OFFICE 12/19/17 1117 Tiki Tran. RESULTS READ BACK BY SAME [...] 1244 PATH REV previously reported as: February Performed By: #### L100.4425, L100.0100 #### [facility] [address] [place], [address] COMPREHENSIVE METABOLIC Collected: 12/19/2017 Status: F Source: [facility] 10:55 AM [facility] REPOSITORY TYPE CODE TESTS RESULT OUT [...] GAP 10 Performed By: #### L500.4050 #### [facility] [place], [address] CANCER ANTIGEN 125 Collected: 12/19/2017 Status: F Source: [place] 10:55 AM [facility] REPOSITORY TYPE CODE TESTS RESULT OUT OF RANGE REFERENCE UNITS LAB L3100.5000 0.0-38.1 U/mL Normal CA125 34.6 2303 Result Comment: CartRescuer ECLIA methodology Performed at: [facility] - [facility] [address] [id number] Lease Operator: Carlo Bass PhD, Phone: [phone] Performed By: #### L3100.5000 #### [facility] (refer to report for specific site) refer to report for address and phone number CBC W/DIFF, AUTOMATED Collected: 12/13/2017 Status: F Source: [place] 11:36 AM [facility] REPOSITORY TYPE CODE TESTS RESULT OUT [...] HYPOCHROMASIA 1+ Performed By: #### L100.0100 #### [facility] [address] [facility]. [place], [place], [address] CTA CHEST W/WO Observed: 12/06/2017 Status: F Source: [place] CONTRAST 3:51 PM [facility] REPOSITORY [facility] Imaging Services [address] [place] [address] CTA Chest W/WO Contrast MR#: [id number] Acct: [id number] Name: IVA CUEVA Rep #: [id number] : 1955 F 62 From: Maura Ordaz MD PCP: Peter Deras MD Status: REG CLI Study: CTA Chest W/WO Contrast Date of Exam: 12/06/17 Exam# [id number] Ordering Dr: Omar Gross DO STUDY: CTA [...] CC: Peter Deras MD; Omar Gross DO Jordan Man: Signed CBC-COMPLETE BLOOD CNT Collected: 12/06/2017 Status: F Source: [place] NO DIFF 1:50 PM [facility] REPOSITORY TYPE CODE TESTS RESULT OUT [...] MPV 9.6 Performed By: #### L100.0500 #### [facility] [address] [place], [address] [facility] SEND OUT TEST Collected: 12/05/2017 Status: F Source: [place] 8:04 PM [facility] REPOSITORY TYPE CODE TESTS RESULT OUT OF REFERENCE UNITS RANGE LAB NAME1 TUMOR Test BRACANALYSIS LAB RESU1 View results Test Results in Scanned Documents link when available. Performed By: #### [id number] #### [facility] [address] [place], [place] [address] CBC W/DIFF, AUTOMATED Collected: 12/03/2017 Status: C Source: [place] 12:15 PM [facility] REPOSITORY TYPE CODE TESTS RESULT OUT [...] 12/04/17 1450 PATH REV previously reported as: May foll LAB L100.2620 2.0-7.7 X10 3/uL Normal Absolute Neut 3.5 LAB L100.2720 0.83-4.51 X10 3/ul Normal Absolute Lymph 2.30 Performed By: #### L100.0100 #### [facility] [address] [place], [address] PROGRESS Observed: 11/28/2017 Status: COMPLETED Source: [place] 5:41 PM [facility] REPOSITORY HNO ID: [id number] Author: Omar Gross Service: (none) Author Type: Physician Type: Progress Notes Filed: 11/28/2017 5:45 PM Note Text: Diagnosis: 1) Ovarian cancer. HPI: The patient is a 62 year old female who presented to her PCP prior to a trip to [facility] for vaccinations. She reported that she was [...] Taxol x 6 cycles, completed 05/27/13. 6) [place]/carbo/cassandra x cycles for biopsy proven metastatic disease [...] sounds are of normal intensity in all wood. No rales, wheezes or rhonchi. CARDIOVASCULAR: Rhythm is regular. Normal intensity S1/S2. There is no gallop or murmur. ABDOMEN: The abdomen is nondistended. There is no organomegaly. No tenderness. No fluid wave. Extremities: Free of edema. SKIN: No jaundice or rash. No petechiae. NEUROLOGIC: paramedical aide II-XII are grossly intact. No focal motor weakness. ASSESSMENT/PLAN: 1) Ovarian cancer. KPS is 90%. Biopsy-proven recurrence. [place] refractory. -She is tolerating topotecan well thus far. -Previous discussed rationale for testing biopsy specimen from 2014 for somatic BRCA mutation[address] [facility] didn't have enough tissue. Plan: -Cycle #2 topotecan on Sunday 12/03 pending CBC results that day. -Neupogen x10 days post cycle. -CT C/A/P prior to cycle #4 or sooner pending CA125 trend. -Continue olanzapine. -Somatic mutation of BRCA requested from past specimen in 2012 for [facility]. Omar Gross DO CNOVSP Observed: 11/28/2017 Status: COMPLETED Source: [place] 4:00 PM [facility] REPOSITORY Visit (SP) Office (HEMAWS) IVA CUEVA ([id number]) 1955 F Date Time Provider Department 11/28/17 4:00 PM OMAR GROSS During your visit today, we recorded the following information about you: Temperature Pulse Blood pressure Weight 98 degrees 99/minute 122/66 87.3 kg Jane James LPN 11/28/2017 4:37 PM Signed Est patient. Labs today at [facility]. Jane Gross DO 11/28/2017 5:45 PM Signed Diagnosis: 1) Ovarian cancer. HPI: The patient is a 62 year old female who presented to her PCP prior to a trip to [facility] for vaccinations. She reported that she was [...] Taxol x 6 cycles, completed 05/27/13. 6) [place]/carbo/cassandra x cycles for biopsy proven metastatic disease [...] sounds are of normal intensity in all wood. No rales, wheezes or rhonchi. CARDIOVASCULAR: Rhythm is regular. Normal intensity S1/S2. There is no gallop or murmur. ABDOMEN: The abdomen is nondistended. There is no organomegaly. No tenderness. No fluid wave. Extremities: Free of edema. SKIN: No jaundice or rash. No petechiae. NEUROLOGIC: paramedical aide II-XII are grossly intact. No focal motor weakness. ASSESSMENT/PLAN: 1) Ovarian cancer. KPS is 90%. Biopsy-proven recurrence. [place] refractory. -She is tolerating topotecan well thus far. -Previous discussed rationale for testing biopsy specimen from 2014 for somatic BRCA mutation. [facility] didn't have enough tissue. Plan: -Cycle #2 topotecan on Sunday 12/03 pending CBC results that day. -Neupogen x10 days post cycle. -CT C/A/P prior to cycle #4 or sooner pending CA125 trend. -Continue olanzapine. -Somatic mutation of BRCA requested from past specimen in 2012 for [facility]. Omar Gross DO Referring Provider: OMAR GROSS [[id number]] Allergies As of Date: 11/28/2017 Noted Allergy [...] * FLUTICASONE 50 MCG/ACTUATION * Use 1 Towanda in each nostril o* ERGOCALCIFEROL (VITAMIN D2) [...] Status: Signed Est patient. Labs today at [facility]. Jane James MARTELL Encounter Status:Closed by OMAR GROSS DO on 11/28/17 CBC W/DIFF, AUTOMATED Collected: 11/28/2017 Status: C Source: [place] 10:31 AM [facility] REPOSITORY TYPE CODE TESTS RESULT OUT [...] 11/29/17 1312 PATH REV previously reported as: Iman jalyn Performed By: #### L100.0100 #### [facility] [address] [place], [address] COMPREHENSIVE METABOLIC Collected: 11/28/2017 Status: F Source: [facility] 10:31 AM [facility] REPOSITORY TYPE CODE TESTS RESULT OUT [...] GAP 7 Performed By: #### L500.4050 #### [facility] [address] [place], [place], [address] CANCER ANTIGEN 125 Collected: 11/28/2017 Status: F Source: [place] 10:31 AM [facility] REPOSITORY TYPE CODE TESTS RESULT OUT OF RANGE REFERENCE UNITS LAB L3100.5000 0.0-38.1 U/mL High CA125 92.1 2303 Result Comment: CartRescuer ECLIA methodology Performed at: [facility] [address] [id number] Lease Operator: Carlo Bass PhD, Phone: [phone] Performed By: #### L3100.5000 #### [facility] (refer to report for specific site) refer to report for address and phone number OBSOLETE Observed: 11/26/2017 Status: COMPLETED Source: [place] 12:00 AM [facility] REPOSITORY Refill (PRISCILLA) IVA CUEVA ([id number]) 1955 F Date Time Provider Department 11/26/17 [...] * FLUTICASONE 50 MCG/ACTUATION * Use 1 Towanda in each nostril o* ERGOCALCIFEROL (VITAMIN D2) [...] Status:Closed by OMAR GROSS DO on 11/26/17 ALLERGIES ALLERGIES DATE TYPE / CODE NAME / CODE REACTION SEVERITY SOURCE Drug hydrocodone Itching Unknown [place] [facility] Allergy/660530867( bitartrate/F0000 [facility] SNOMED [facility]) 65[address](RXNORM) Hospital Repository Drug tramadol Itching Unknown [place] Allergy/553793511( HCl/F540838459(R [facility]) XNORM) Hospital Repository Drug codeine/N1298755 Itching Unknown [place] Allergy/185767631( 50(RXNORM) [employer] SNOMED CT) Hospital Repository Drug oxycodone/B81740 Itching Unknown [place] Allergy/711024926( 1558(RXNORM) [employer] SNOMED CT) Hospital Repository Drug acetaminophen/F0 Itching Unknown [place] Allergy/811321042( 20663173(RXNORM) [facility]) Hospital Repository DRUG/224343372(SNO OXYCODONE-ACETAM ITCHING [place] [address]) INOPHEN [facility] [place] Repository DRUG TRAMADOL HCL ITCHING [place] INGREDI/649248017( [facility] Main SNOMED [facility]) [place] Rep[facility] DRUG/399294591(SNO HYDROCODONE-ACET ITCHING [place] [address]) AMINOPHEN [facility] [place] Repository Miscellaneous OTHER [place] Allergy/641575798( [facility] SNOMED CT) [place] Repository DRUG CODEINE INTOLERANCE [place] INGREDI/806485520( Clinic Main SNOMED [facility]) [place] Repository ENCOUNTERS ENCOUNTERS ADMIT/DISCHARGE ACCOUNT ADMITTING ENCOUNTER LOCATION SOURCE NUMBER CLASS 11/19/2018 [id number] [facility] 11/04/2018 [id number] [place] Critical access hospital S [facility] [place] Repository 11/01/2018/11/01/19 [id number] Ambulatory [place] [facility] [place] Repository 10/29/2018 [id number] [facility] Repository 10/28/2018/10/28/20 [id number] Ambulatory [place] [facility] Repository 10/28/2018/10/28/20 [id number] Ambulatory [place] [facility] Repository 10/28/2018 [id number] [facility] Repository 10/25/2018/10/25/20 [id number] Ambulatory [address] [facility] ing:LAB Repository 10/24/2018/10/25/20 [id number] Ambulatory [address] [place] Repository 10/11/2018 [id number] Ambulatory [facility] ing:MEDOUTP Repository 10/10/2018 [id number] Ambulatory [facility] ing:MEDOUTP Repository 10/09/2018 [id number] Ambulatory [facility] ing:MEDOUTP Repository 10/08/2018 [id number] [facility] ing:MEDOUTP Repository 10/07/2018 [id number] [facility] Rep[facility] 09/26/2018 [id number] [facility] [place] [facility] Repository 09/17/2018/09/17/20 [id number] Ambulatory [facility]:B [place] [facility] Repository 09/13/2018 [id number] [facility] Repository 09/12/2018 [id number] [facility] Repository 09/11/2018 [id number] [facility] Repository 09/10/2018 [id number] [facility] Repository 09/09/2018 [id number] [facility] Repository 08/30/2018/09/02/20 [id number] Ambulatory [address] Repository 08/26/2018/08/26/20 [id number] Ambulatory [place] [address] [facility] ing:LAB Repository 08/06/2018 [id number] [facility] Repository 08/02/2018 [id number] [facility] Repository 08/01/2018 [id number] [facility] [place] [facility] Repository 07/31/2018 [id number] [facility] Repository 07/30/2018 [id number] [facility] Repository 07/29/2018 [id number] [facility] [place] [facility] ing[facility]MED[facility]P Repository 07/23/2018/07/23/20 [id number] Ambulatory [place] [address] [facility] ing:LAB Repository 07/12/2018 [id number] Ambulatory [place] [facility] Hospital ing:MEDOUTP Repository 07/11/2018 [id number] Ambulatory [place] [facility] Hospital ing:MEDOUTP Repository 07/10/2018 [id number] Ambulatory [place] [facility] Hospital ing:MEDOUTP Repository 07/09/2018 [id number] Ambulatory Wilkinson Laron [facility] HospitalBuild Hospital ing:MEDOUTP Repository 07/08/2018 [id number] Ambulatory Wilkinson Wilkinson [facility] HospitalBuild Hospital ing:MEDOUTP Repository 07/04/2018/07/05/20 [id number] Ambulatory [address] [place] Repository 06/26/2018/06/26/20 [id number] Ambulatory Laron Wilkinson [address] [place] [address] HospitalBuild Hospital ing:LAB Repository 06/21/2018 [id number] Ambulatory Laron Wilkinson [facility] HospitalBuild Hospital ing:MEDOUTP Repository 06/20/2018 [id number] Ambulatory Laron Wilkinson [facility] HospitalBuild Hospital ing:MEDOUTP Repository 06/19/2018 [id number] Ambulatory Laron Laron [facility] HospitalBuild Hospital ing:MEDOUTP Repository 06/18/2018 [id number] Ambulatory Laron Laron [facility] HospitalBuild Hospital ing:MEDOUTP Repository 06/17/2018 [id number] Ambulatory Laron Laron [facility] HospitalBuild Hospital ing:MEDOUTP Repository 06/13/2018/06/14/20 [id number] Ambulatory [address] [place] Repository 05/24/2018 [id number] Ambulatory Laron Wilkinson [facility] HospitalBuild Hospital ing:MEDOUTP Repository 05/23/2018 [id number] Ambulatory Laron Laron [facility] HospitalBuild Hospital ing:MEDOUTP Repository 05/22/2018 [id number] Ambulatory Wilkinson Wilkinson [facility] HospitalBuild Hospital ing:MEDOUTP Repository 05/21/2018 [id number] Ambulatory Wilkinson Laron [facility] HospitalBuild Hospital ing:MEDOUTP Repository 05/20/2018 [id number] Ambulatory Laron Wilkinson [facility] HospitalBuild Hospital ing:MEDOUTP Repository 05/18/2018/05/18/20 [id number] Ambulatory Wilkinson Wilkinson [address] [place] [address] HospitalBuild Hospital ing:LAB Repository 04/29/2018/04/29/20 [id number] Ambulatory [address] [place] Repository 04/29/2018/04/29/20 [id number] Ambulatory [address] [place] Repository 04/29/2018/05/03/20 [id number] Ambulatory [address] [place] Repository 04/29/2018/04/29/20 [id number] Ambulatory [address] [place] Repository 04/18/2018/04/22/20 [id number] Ambulatory [address] [place] Repository 04/16/2018/04/16/20 [id number] Ambulatory Laron Laron [address] [place] [address] HospitalBuild Hospital ing:LAB Repository 04/12/2018/04/13/20 [id number] Ambulatory [address] Repository 04/06/2018/04/06/20 [id number] Ambulatory Laron Laron [address] [place] [address] HospitalBuild Hospital ing:MEDOUTP Repository 04/05/2018 [id number] [facility] Rep[facility] 04/04/2018 [id number] [facility] Repository 04/03/2018 [id number] [facility] Rep[facility] 04/02/2018 [id number] [facility] Repository 03/29/2018/04/01/20 [id number] Ambulatory [address] Repository 03/27/2018/03/27/20 [id number] Ambulatory Wilkinson Wilkinson [address] [place] [address] HospitalBuild Hospital ing:LAB Repository 03/08/2018 [id number] [facility] Repository 03/07/2018 [id number] [facility] Repository 03/06/2018 [id number] [facility] Repository 03/05/2018 [id number] [facility] Repository 03/04/2018 [id number] Ambulatory Wilkinson Laron [facility] HospitalBuild Hospital ing:MEDOUTP Repository 02/27/2018/02/29/20 [id number] Ambulatory [place] [address] [facility] [place] Repository 02/13/2018 [id number] [facility] Repository 02/11/2018/02/12/20 [id number] Ambulatory Wilkinson Wilkinson [address] [place] [address] HospitalBuild Hospital ing:LAB Repository 02/08/2018 [id number] Ambulatory Wilkinson Wilkinson [facility] HospitalBuild Hospital ing:MEDOUTP Repository 02/07/2018 [id number] [facility] Repository 02/06/2018 [id number] Ambulatory Wilkinson Wilkinson [facility] HospitalBuild Hospital ing:MEDOUTP Repository 02/05/2018 [id number] [facility] Repository 02/04/2018 [id number] Ambulatory Wilkinson Wilkinson [facility] HospitalBuild Hospital ing:MEDOUTP Repository 01/18/2018 [id number] [facility] Repository 01/17/2018 [id number] [facility] Repository 01/16/2018 [id number] [facility] Repository 01/15/2018 [id number] Ambulatory Wilkinson Laron [facility] HospitalBuild Hospital ing:MEDOUTP Repository 01/14/2018 [id number] Ambulatory Wilkinson Wilkinson [facility] HospitalBuild Hospital ing:MEDOUTP Repository 01/09/2018/01/12/20 [id number] Ambulatory [place] [facility] [place] Repository 01/09/2018/01/10/20 [id number] Ambulatory Laron Laron [address] [place] [address] HospitalBuild Hospital ing:LAB Repository 01/03/2018 [id number] Ambulatory Laron Wilkinson [facility] HospitalBuild Hospital ing:MEDOUTP Repository 12/28/2017 [id number] [facility] Repository 12/27/2017 [id number] Ambulatory Wilkinson Wilkinson [facility] HospitalBuild Hospital ing:MEDOUTP Repository 12/26/2017 [id number] [facility] Repository 12/25/2017 [id number] [facility] Repository 12/24/2017 [id number] [facility] Repository 12/19/2017/12/19/19 [id number] Ambulatory [address] Repository 12/19/2017/12/19/19 [id number] Ambulatory Wilkinson Wilkinson[address] HospitalBuild Hospital ing:LAB Repository 12/07/2017 [id number] [facility] Repository 12/06/2017 [id number] [facility] Repository 12/05/2017 [id number] [facility] Repository 12/04/2017 [id number] [facility]P Repository 12/03/2017 [id number] [facility] Repository 11/28/2017/11/29/19 [id number] Ambulatory [address] Repository 11/28/2017/11/28/19 [id number] Ambulatory Wilkinson[address] HospitalBuild Hospital ing:LAB Repository PAYERS PAYERS ENCOUNTER GUARANTOR PAYER SUBSCRIBER SOURCE 11/19/2018 IVA L Primary IVA L Wilkinson [id number] DE[place] Insurance:MEDICAL MAIBACHDOB: [facility] [id number]' [facility] [address]Hhq: Number: Repository [id number] (HP) Date:6330-23-45LC [address] [place] [address]CY: 11/19/2018 Secondary NOT GIVENUNK Wilkinson Insurance:SELF PAY [facility] Number: Effective Repository Date:2018-11-13 10/29/2018 IVA L Primary IVA L Laron [id number] DEER Insurance:MEDICAL MAIBACHDOB: [facility] [id number]' Colfax Medical Center [address]Ihw: Number: Repository [id number] (HP) Date:3978-77-31XU [place] [phone]: 10/29/2018 Secondary NOT GIVENUNK Wilkinson Insurance:SELF PAY [facility] Number: Effective Repository Date:2018-10-28 10/28/2018 JOSÉ MIGUEL Markham Primary IVA Larry [id number] DEER Insurance:MEDICAL MAIBACHDOB: [facility] [id number]' Colfax Medical Center [address]Pdk: Number: Repository [id number] (HP) Date:6104-70-28FJ [place] [phone]: 10/28/2018 Secondary NOT GIVENUNK Wilkinson Insurance:SELF PAY [facility] Number: Effective Repository Date:2018-09-17 10/25/2018 JOSÉ MIGUEL Markham Primary IVA Larry [id number] DEER Insurance:MEDICAL MAIBACHDOB: [facility] [id number]' Colfax Medical Center [address]602Jdm: Number: Repository [id number] (HP) Date:5398-70-25CF [place] [phone]: 10/25/2018 Secondary NOT GIVENUNK Wilkinson Insurance:SELF PAY [facility] Number: Effective Repository Date:2018-08-29 10/11/2018 IVA Cottrell Primary IVA Larry [id number] DEER Insurance:MEDICAL MAIBACHDOB: [facility] [id number] [place] [address]Oyl: Number: Repository [id number] (HP) Date:4787-08-40BO [address] [address]PF: 10/11/2018 Secondary NOT GIVENUNK Laron Insurance:SELF PAY [facility] Number: Effective Repository Date:2018-09-17 10/10/2018 IVA L Primary IVA L Wilkinson [id number] DEER Insurance:MEDICAL MAIBACHDOB: [facility] [id number]' Colfax Medical Center [address]Wba: Number: Repository [id number] (HP) Date:1409-90-18OM [place] [phone]: 10/10/2018 Secondary NOT GIVENUNK Laron Insurance:SELF PAY [facility] Number: Effective Repository Date:2018-09-17 10/09/2018 IVA L Primary IVA L Laron [id number] DE[place] Insurance:MEDICAL MAIBACHDOB: [facility] [id number]' Colfax Medical Center [address]Urx: Number: Repository [id number] (HP) Date:7845-36-62NS [place] [phone]: 10/09/2018 Secondary NOT GIVENUNK Wilkinson Insurance:SELF PAY [facility] Number: Effective Repository Date:2018-09-17 10/08/2018 IVA L Primary IVA L Laron [id number] DE[place] Insurance:MEDICAL MAIBACHDOB: [facility] [id number]' Colfax Medical Center [address]Bsc: Number: Repository [id number] (HP) Date:6485-70-36QR [address] [address]VE: 10/08/2018 Secondary NOT GIVENUNK Laron Insurance:SELF PAY [facility] Number: Effective Repository Date:2018-09-17 10/07/2018 JOSÉ MIGUEL J Primary IVA L Wilkinson [id number] [place] Insurance:MEDICAL MAIBACHDOB: [facility] [id number]' Colfax Medical Center [address]Nbg: Number: Repository [id number] (HP) Date:7990-88-63FN [address] [address]BH: 10/07/2018 Secondary NOT GIVENUNK Wilkinson Insurance:SELF PAY [facility] Number: Effective Repository Date:2018-09-17 09/26/2018 IVA L Primary IVA L Wilkinson [id number] DE[place] Insurance:MEDICAL MAIBACHDOB: [facility] [id number]' Colfax Medical Center [address]Zfc: Number: Repository [id number] (HP) Date:0336-03-28NM [place] [phone]: 09/26/2018 Secondary NOT GIVENUNK Wilkinson Insurance:SELF PAY [facility] Number: Effective Repository Date:2018-09-18 09/17/2018 IVA L Primary IVA L Laron [id number] DE[place] Insurance:MEDICAL MAIBACHDOB: [facility] [id number]' Colfax Medical Center [address]Nyo: Number: Repository [id number] (HP) Date:3484-51-89FH [place] [phone]: 09/17/2018 Secondary NOT GIVENUNK Laron Insurance:SELF PAY [facility] Number: Effective Repository Date:2018-09-17 09/13/2018 JOSÉ MIGUEL Markham Primary IVA L Laron [id number] DE[place] Insurance:MEDICAL MAIBACHDOB: [facility] [id number]' Colfax Medical Center [address]Jhn: Number: Repository [id number] (HP) Date:1412-42-48IX [address] [address]HK: 09/13/2018 Secondary NOT GIVENUNK Wilkinson Insurance:SELF PAY [facility] Number: Effective Repository Date:2018-09-05 09/12/2018 JOSÉ MIGUEL Markham Primary IVA Larry [id number] [place] Insurance:MEDICAL MAIBACHDOB: [facility] [id number]' Colfax Medical Center [address]884Qqp: Number: Repository [id number] (HP) Date:8545-29-71TT [place] [phone]: 09/12/2018 Secondary NOT GIVENUNK Laron Insurance:SELF PAY [facility] Number: Effective Repository Date:2018-09-05 09/11/2018 JOSÉ MIGUEL Markham Primary IVA Larry [id number] DE[place] Insurance:MEDICAL MAIBACHDOB: [facility] [id number]' Colfax Medical Center [address]Ndk: Number: Repository [id number] (HP) Date:8212-55-46NV [place] [phone]: 09/11/2018 Secondary NOT GIVENUNK Laron Insurance:SELF PAY [facility] Number: Effective Repository Date:2018-09-05 09/10/2018 JOSÉ MIGUEL Markham Primary IVA Larry [id number] DE[place] Insurance:MEDICAL MAIBACHDOB: [facility] [id number]' Colfax Medical Center [address]Nwy: Number: Repository [id number] (HP) Date:3227-00-59VN [address] [address]RZ: 09/10/2018 Secondary NOT GIVENUNK Laron Insurance:SELF PAY [facility] Number: Effective Repository Date:2018-09-05 09/09/2018 JOSÉ MIGUEL Markham Primary IVA Larry [id number] DE[place] Insurance:MEDICAL MAIBACHDOB: [facility] [id number]' Colfax Medical Center [address]Gmg: Number: Repository [id number] (HP) Date:7435-77-25ZX [address] [address]LW: 09/09/2018 Secondary NOT GIVENUNK Wilkinson Insurance:SELF PAY [facility] Number: Effective Repository Date:2018-09-05 08/26/2018 JOSÉ MIGUEL Markham Primary IVA Ronit Larry [id number] DE[place] Insurance:MEDICAL MAIBADOB: [facility] [id number]' Colfax Medical Center [address]Yci: Number: Repository [id number] (HP) Date:1122-93-28PV [place] [phone]: 08/26/2018 Secondary NOT GIVENUNK Wilkinson Insurance:SELF PAY [facility] Number: Effective Repository Date:2018-07-31 08/06/2018 JOSÉ MIGUEL Rashi Primary IVA Ronit Larry [id number] DE[place] Insurance:MEDICAL MAIBADOB: [facility] [id number]' Colfax Medical Center [address]Sjy: Number: Repository [id number] (HP) Date:3620-14-09YW [place] [phone]: 08/06/2018 Secondary NOT GIVENUNK Laron Insurance:SELF PAY [facility] Number: Effective Repository Date:2018-08-05 08/02/2018 JOSÉ MIGUEL Rashi Primary IVA Ronit Larry [id number] DE[place] Insurance:MEDICAL MAIBACHDOB: [facility] [id number]' Colfax Medical Center [address]Pnt: Number: Repository [id number] (HP) Date:6900-36-15VB [place] [phone]: 08/02/2018 Secondary NOT GIVENUNK Laron Insurance:SELF PAY [facility] Number: Effective Repository Date:2018-07-26 08/01/2018 JOSÉ MIGUEL Markham Primary IVA Larry [id number] DE[place] Insurance:MEDICAL MAIBACHDOB: [facility] [id number]' Colfax Medical Center [address]Sjr: Number: Repository [id number] (HP) Date:3217-71-06UA [address] [address]CD: 08/01/2018 Secondary NOT GIVENUNK Wilkinson Insurance:SELF PAY [facility] Number: Effective Repository Date:2018-07-26 07/31/2018 JOSÉ MIGUEL Markham Primary IVA Larry [id number] DE[place] Insurance:MEDICAL MAIBACHDOB: [facility] [id number]' Colfax Medical Center [address]Ipk: Number: Repository [id number] (HP) Date:7373-36-71EZ [address] [address]EX: 07/31/2018 Secondary NOT GIVENUNK Wilkinson Insurance:SELF PAY [facility] Number: Effective Repository Date:2018-07-26 07/30/2018 JOSÉ MIGUEL Markham Primary IVA Larry [id number] DE[place] Insurance:MEDICAL MAIBACHDOB: [facility] [id number]' Colfax Medical Center 50803Tnt: Number: Repository [id number] (HP) Date:4027-24-83CY [address] [address]BF: 07/30/2018 Secondary NOT GIVENUNK Laron Insurance:SELF PAY [facility] Number: Effective Repository Date:2018-07-26 07/29/2018 JOSÉ MIGUEL Rashi Primary IVA Larry [id number] DE[place] Insurance:MEDICAL MAIBACHDOB: [facility] [id number] [place] [address]Hnz: Number: Repository [id number] (HP) Date:9608-21-70JC [address] [place] [address]BO: 07/29/2018 Secondary NOT GIVENUNK Laron Insurance:SELF PAY [facility] Number: Effective Repository Date:2018-07-26 07/23/2018 JOSÉ MIGUEL Markham Primary IAV Ronit Larry [id number] DE[place] Insurance:MEDICAL MAIBACHDOB: [facility] [id number]' Colfax Medical Center [address]Dnb: Number: Repository [id number] (HP) Date:6795-72-78NF [address] [address]JH: 07/23/2018 Secondary NOT GIVENUNK Wilkinson Insurance:SELF PAY [facility] Number: Effective Repository Date:2018-07-02 07/12/2018 JOSÉ MIGUEL Markham Primary IVA Ronit Larry [id number] [place] Insurance:MEDICAL MAIBACHDOB: [facility] [id number]' Colfax Medical Center [address]Gam: Number: Repository [id number] (HP) Date:6807-79-58DA [address] [address]DD: 07/12/2018 Secondary NOT GIVENUNK Laron Insurance:SELF PAY [facility] Number: Effective Repository Date:2018-06-21 07/11/2018 JOSÉ MIGUEL Markham Primary IVA Ronit Larry [id number] [place] Insurance:MEDICAL MAIBACHDOB: [facility] [id number]' Colfax Medical Center [address]Zrz: Number: Repository [id number] (HP) Date:5743-17-78IW [address] [address]JB: 07/11/2018 Secondary NOT GIVENUNK Wilkinson Insurance:SELF PAY [facility] Number: Effective Repository Date:2018-06-21 07/10/2018 JOSÉ MIGUEL Markham Primary IVA Larry [id number] DE[place] Insurance:MEDICAL MAIBACHDOB: [facility] [id number]' Colfax Medical Center [address]234Roc: Number: Repository [id number] (HP) Date:9027-91-92EU [place] [phone]: 07/10/2018 Secondary NOT GIVENUNK Wilkinson Insurance:SELF PAY [facility] Number: Effective Repository Date:2018-06-21 07/09/2018 JOSÉ MIGUEL Markham Primary IVA Larry [id number] [place] Insurance:MEDICAL MAIBACHDOB: [facility] [id number]' Colfax Medical Center [address]Nbo: Number: Repository [id number] (HP) Date:6090-55-06PM [place] [phone]: 07/09/2018 Secondary NOT GIVENUNK Laron Insurance:SELF PAY [facility] Number: Effective Repository Date:2018-06-21 07/08/2018 JOSÉ MIGUEL Markham Primary IVA Larry [id number] [place] Insurance:MEDICAL MAIBACHDOB: [facility] [id number]' Colfax Medical Center 13149Gle: Number: Repository [id number] (HP) Date:7496-86-41TP [place] [phone]: 07/08/2018 Secondary NOT GIVENUNK Wilkinson Insurance:SELF PAY [facility] Number: Effective Repository Date:2018-06-21 06/26/2018 JOSÉ MIGUEL Markham Primary IAV Larry [id number] [place] Insurance:[facility] [id number]' Colfax Medical Center [address]Dwu: Number: Repository [id number] (HP) Date:2089-41-37GL [address] [place] [address]YK: 06/26/2018 Secondary NOT GIVENUNK Laron Insurance:SELF PAY [facility] Number: Effective Repository Date:2018-05-30 06/21/2018 JOSÉ MIGUEL J Primary IVA Ronit Larry [id number] [place] Insurance:MEDICAL MAIBACHDOB: [facility] [id number] [place] [address]Rcs: Number: Repository [id number] (HP) Date:3822-30-02JF [address] [address]AU: 06/21/2018 Secondary NOT GIVENUNK Laron Insurance:SELF PAY [facility] Number: Effective Repository Date:2018-05-27 06/20/2018 JOSÉ MIGUEL Markham Primary IVA Ronit Larry [id number] [place] Insurance:MEDICAL MAIBACHDOB: [facility] [id number]' Colfax Medical Center [address]001Apb: Number: Repository [id number] (HP) Date:1015-94-44FK [address] [address]JS: 06/20/2018 Secondary NOT GIVENUNK Laron Insurance:SELF PAY [facility] Number: Effective Repository Date:2018-05-27 06/19/2018 JOSÉ MIGUEL Rashi Primary IVA Ronit Larry [id number] DE[place] Insurance:MEDICAL MAIBADOB: [facility] [id number]' Colfax Medical Center [address]Jje: Number: Repository [id number] (HP) Date:8343-01-20SY [address] [address]KR: 06/19/2018 Secondary NOT GIVENUNK Laron Insurance:SELF PAY [facility] Number: Effective Repository Date:2018-05-27 06/18/2018 JOSÉ MIGUEL Markham Primary IVA Larry [id number] [place] Insurance:MEDICAL MAIBACHDOB: [facility] [id number]' Colfax Medical Center [address]Elz: Number: Repository [id number] (HP) Date:9680-79-19NM [address] [place] [address] [place], [place] [phone]: 06/18/2018 Secondary NOT GIVENUNK Laron Insurance:SELF PAY [facility] Number: Effective Repository Date:2018-05-27 06/17/2018 JOSÉ MIGUEL Markham Primary IVA Larry [id number] [place] Insurance:MEDICAL MAIBACHDOB: [facility] [id number]' Colfax Medical Center [address]388Uyp: Number: Repository [id number] (HP) Date:3933-43-21BR [address] [place], [place] [phone]: 06/17/2018 Secondary NOT GIVENUNK Wilkinson Insurance:SELF PAY [facility] Number: Effective Repository Date:2018-05-24 05/24/2018 JoséM iguel Larry [id number] [place] Insurance:MEDICAL MAIBACHDOB: [facility] [id number]' Colfax Medical Center [address]Exn: Number: Repository [id number] (HP) Date:7839-53-59RH [address] [address]MF: 05/24/2018 Secondary NOT GIVENUNK Laron Insurance:SELF PAY [facility] Number: Effective Repository Date:2018-04-18 05/23/2018 José Miguel Markham Primary IVA Larry [id number] [place] Insurance:MEDICAL MAIBACHDOB: [facility] [id number]' Colfax Medical Center [address]167Krh: Number: Repository [id number] (HP) Date:0021-96-00QI [address] [address]CI: 05/23/2018 Secondary NOT GIVENUNK Laron Insurance:SELF PAY [facility] Number: Effective Repository Date:2018-04-18 05/22/2018 José Miguel Markham Primary IVA Ronit Larry [id number] [place] Insurance:MEDICAL MAIBACHDOB: [facility] [id number]' Colfax Medical Center [address]Bfr: Number: Repository [id number] (HP) Date:8377-03-75TU [place] [phone]: 05/22/2018 Secondary NOT GIVENUNK Wilkinson Insurance:SELF PAY [facility] Number: Effective Repository Date:2018-04-18 05/21/2018 José Miguel Markham Primary IVA Ronit Larry [id number] [place] Insurance:MEDICAL MAIBACHDOB: [facility] [id number]' Colfax Medical Center [address]Vhe: Number: Repository [id number] (HP) Date:5287-28-18SR [address] [address]YW: 05/21/2018 Secondary NOT GIVENUNK Laron Insurance:SELF PAY [facility] Number: Effective Repository Date:2018-04-18 05/20/2018 José Miguel Markham Primary IVA Ronit Larry [id number] [place] Insurance:MEDICAL MAIBACHDOB: [facility] [id number]' [facility]fax [facility] Center [address]Gvk: Number: Repository [id number] (HP) Date:6374-12-90PT [address] [address]VB: 05/20/2018 Secondary NOT GIVENUNK Laron Insurance:SELF PAY [facility] Number: Effective Repository Date:2018-04-18 05/18/2018 José Miguel Markham Primary IVA Larry [id number] [place] Insurance:MEDICAL MAIBACHDOB: [facility] [id number] [place] [address]Qgn: Number: Repository [id number] (HP) Date:9744-15-73OA [address] [place] [address]SW: 05/18/2018 Secondary NOT GIVENUNK [place] Insurance:SELF PAY [facility] Number: Effective Repository Date:2018-04-26 04/16/2018 José Miguel Markham Primary IVA Larry [id number] [place] Insurance:MEDICAL MAIBACHDOB: [facility] [id number] [place] [address]Lir: Number: Repository [id number] (HP) Date:6652-01-71UU [address] [address]ZZ: 04/16/2018 Secondary NOT GIVENUNK [place] Insurance:SELF PAY [facility] Number: Effective Repository Date:2018-03-28 04/06/2018 José Miguel Markham Primary IVA Larry [id number] [place] Insurance:MEDICAL MAIBACHDOB: [facility] [id number] [place] [address]Jsc: Number: Repository [id number] (HP) Date:9158-75-58JP [address] [place] [address]RV: 04/06/2018 Secondary NOT GIVENUNK [place] Insurance:SELF PAY [facility] Number: Effective Repository Date:2018-03-07 04/05/2018 José Miguel Markham Primary IVA Larry [id number] [place] Insurance:MEDICAL MAIBACHDOB: [facility] [id number]' [facility] Medical [facility] [address]Zlf: Number: Repository [id number] (HP) Date:1399-82-99PP [address] [address]VL: 04/05/2018 Secondary NOT GIVENUNK [place] Insurance:SELF PAY [facility] Number: Effective Repository Date:2018-03-07 04/04/2018 José Miguel Markham Primary IVA Ronit Larry [id number] [place] Insurance:MEDICAL MAIBACHDOB: [facility] [id number]' Colfax Medical Center [address]Bwm: Number: Repository [id number] (HP) Date:8250-80-73XC [address] [address]MK: 04/04/2018 Secondary NOT GIVENUNK [place] Insurance:SELF PAY [facility] Number: Effective Repository Date:2018-03-07 04/03/2018 José Miguel Markham Primary IVA L [place] [id number] [place] Insurance:MEDICAL MAIBACHDOB: [facility] [id number]' Colfax Medical Center [address]Ytj: Number: Repository [id number] (HP) Date:0452-77-53OV [address] [address]MS: 04/03/2018 Secondary NOT GIVENUNK [place] Insurance:SELF PAY [facility] Number: Effective Repository Date:2018-03-07 04/02/2018 José Miguel Markham Primary IVA L [place] [id number] [place] Insurance:MEDICAL MAIBACHDOB: [facility] [id number]' Colfax Medical Center [address]Lml: Number: Repository [id number] (HP) Date:3210-96-11XW [address] [address]GB: 04/02/2018 Secondary NOT GIVENUNK [place] Insurance:SELF PAY [facility] Number: Effective Repository Date:2018-03-07 03/27/2018 José Miguel Markham Primary IVA Larry [id number] [place] Insurance:MEDICAL MAIBACHDOB: [facility] [id number] [place] [address]Ere: Number: Repository [id number] (HP) Date:3700-07-73VP [place] [phone]: 03/27/2018 Secondary NOT GIVENUNK [place] Insurance:SELF PAY [facility] Number: Effective Repository Date:2018-02-26 03/08/2018 José Miguel Markham Primary IVA Larry [id number] [place] Insurance:MEDICAL MAIBACHDOB: [facility] [id number] [place] [address]Ujh: Number: Repository [id number] (HP) Date:8887-01-78CS [place] [phone]: 03/08/2018 Secondary NOT GIVENUNK [place] Insurance:SELF PAY [facility] Number: Effective Repository Date:2018-02-18 03/07/2018 José Miguel Markham Primary IVA Larry [id number] [place] Insurance:MEDICAL MAIBACHDOB: [facility] [id number] [place] [address]Ecp: Number: Repository [id number] (HP) Date:3295-72-55SV [address] [address]HM: 03/07/2018 Secondary NOT GIVENUNK [place] Insurance:SELF PAY [facility] Number: Effective Repository Date:2018-02-18 03/06/2018 José Miguel Markham Primary IVA Larry [id number] [place] Insurance:MEDICAL MAIBACHDOB: [facility] [id number] [place] [address]Wwv: Number: Repository [id number] (HP) Date:1580-06-95EN [address] [place] [address]WB: 03/06/2018 Secondary NOT GIVENUNK [place] Insurance:SELF PAY [facility] Number: Effective Repository Date:2018-02-18 03/05/2018 José Miguel Rashi Primary IVA Ronit Larry [id number] [place] Insurance:MEDICAL MAIBACHDOB: [facility] [id number]' Colfax Medical Center [address]Ume: Number: Repository [id number] (HP) Date:7244-55-05KA [address] [address]BR: 03/05/2018 Secondary NOT GIVENUNK [place] Insurance:SELF PAY [facility] Number: Effective Repository Date:2018-02-18 03/04/2018 José Miguel J Primary IVA Ronit Larry [id number] [place] Insurance:MEDICAL MAIBACHDOB: [facility] [id number]' Colfax Medical Center [address]Wzz: Number: Repository [id number] (HP) Date:7502-92-53XY [address] [address]XX: 03/04/2018 Secondary NOT GIVENUNK [place] Insurance:SELF PAY [facility] Number: Effective Repository Date:2018-02-18 02/13/2018 José Miguel Markham Primary IVA Ronit Larry [id number] [place] Insurance:MEDICAL MAIBADOB: [facility] [id number]' Colfax Medical Center [address]Ruk: Number: Repository [id number] (HP) Date:2644-68-21SR [address] [address]QI: 02/13/2018 Secondary NOT GIVENUNK [place] Insurance:SELF PAY [facility] Number: Effective Repository Date:2018-02-12 02/11/2018 José Miguel Markham Primary IVA Larry [id number] [place] Insurance:MEDICAL MAIBACHDOB: [facility] [id number]' Colfax Medical Center [address]Btl: Number: Repository [id number] (HP) Date:4164-28-18VN [place] [phone]: 02/11/2018 Secondary NOT GIVENUNK [place] Insurance:SELF PAY [facility] Number: Effective Repository Date:2018-01-28 02/08/2018 José Miguel Markham Primary IVA Larry [id number] [place] Insurance:MEDICAL MAIBACHDOB: [facility] [id number]' Colfax Medical Center [address]Vvd: Number: Repository [id number] (HP) Date:5645-37-47QI [place] [phone]: 02/08/2018 Secondary NOT GIVENUNK [place] Insurance:SELF PAY [facility] Number: Effective Repository Date:2018-01-25 02/07/2018 José Miguel Larry [id number] [place] Insurance:MEDICAL MAIBACHDOB: [facility] [id number]' Colfax Medical Center [address]Noa: Number: Repository [id number] (HP) Date:6075-55-29UD [place] [phone]: 02/07/2018 Secondary NOT GIVENUNK [place] Insurance:SELF PAY [facility] Number: Effective Repository Date:2018-01-25 02/06/2018 José Miguel Larry [id number] [place] Insurance:MEDICAL MAIBACHDOB: [facility] [id number] [place] [address]Noh: Number: Repository [id number] (HP) Date:0640-39-82BM [address] [place] [address]CP: 02/06/2018 Secondary NOT GIVENUNK [place] Insurance:SELF PAY [facility] Number: Effective Repository Date:2018-01-25 02/05/2018 José Miguel Markham Primary IVA Larry [id number] [place] Insurance:MEDICAL MAIBACHDOB: [facility] [id number]' Colfax Medical Center [address]Lmf: Number: Repository [id number] (HP) Date:5264-61-47FR [address] [place], [place] [address]WP: 02/05/2018 Secondary NOT GIVENUNK [place] Insurance:SELF PAY [facility] Number: Effective Repository Date:2018-01-25 02/04/2018 José Miguel Markham Primary IVA Ronit Larry [id number] [place] Insurance:MEDICAL MAIBACHDOB: [facility] [id number]' Colfax Medical Center [address]Qaf: Number: Repository [id number] (HP) Date:1487-25-07PI [address] [address]QR: 02/04/2018 Secondary NOT GIVENUNK [place] Insurance:SELF PAY [facility] Number: Effective Repository Date:2018-01-25 01/18/2018 José Miguel Markham Primary IVA Larry [id number] [place] Insurance:MEDICAL MAIBADOB: [facility] [id number]' Colfax Medical Center [address]Lpy: Number: Repository [id number] (HP) Date:2479-27-93QS [address] [address]HJ: 01/18/2018 Secondary NOT GIVENUNK [place] Insurance:SELF PAY [facility] Number: Effective Repository Date:2018-01-17 01/17/2018 José Miguel Markham Primary IVA Larry [id number] [place] Insurance:MEDICAL MAIBACHDOB: [facility] [id number]' Colfax Medical Center [address]Ixu: Number: Repository [id number] (HP) Date:8215-96-42FU [address] [place], [place] [address]WP: 01/17/2018 Secondary NOT GIVENUNK [place] Insurance:SELF PAY [facility] Number: Effective Repository Date:2018-01-10 01/16/2018 José Miguel Markham Primary IVA Larry [id number] [place] Insurance:MEDICAL MAIBACHDOB: [facility] [id number] [place] [address]Frc: Number: Repository [id number] (HP) Date:6580-07-28AL [address] [place], [place] [address]WP: 01/16/2018 Secondary NOT GIVENUNK [place] Insurance:SELF PAY [facility] Number: Effective Repository Date:2018-01-10 01/15/2018 José Miguel Markham Primary IVA Larry [id number] [place] Insurance:MEDICAL MAIBACHDOB: [facility] [id number] Number: Repository [address]Hpg: 330 [id number] [phone] (HP) Date:7473-63-87GN [address] [address]ZT: 01/15/2018 Secondary NOT GIVENUNK [place] Insurance:SELF PAY [facility] Number: Effective Repository Date:2018-01-10 01/14/2018 José Miguel Markham Primary IVA Larry [id number] [place] Insurance:MEDICAL MAIBACHDOB: [facility] [id number], [place] Number: Repository [id number]: 124) [id number] [phone] (HP) Date:3560-77-91UF [address] [address]VJ: 01/14/2018 Secondary NOT GIVENUNK [place] Insurance:SELF PAY [facility] Number: Effective Repository Date:2018-01-10 01/09/2018 José Miguel Markham Primary IVA Larry [id number] [place] Insurance:MEDICAL MAIBACHDOB: [facility] [id number], [place] Number: Repository [address]Rni: 330 [id number] [phone] (HP) Date:8373-73-92DE [address] [address]HN: 01/09/2018 Secondary NOT GIVENUNK [place] Insurance:SELF PAY [facility] Number: Effective Repository Date:2017-12-27 01/03/2018 José Miguel Markham Primary IVA Ronit PatelLaron [id number] [place] Insurance:MEDICAL MAIBACHDOB: [facility] [id number], [place] Number: Repository [id number]: 330 [id number] [phone] (HP) Date:6309-11-15MW [address] [address]LV: 01/03/2018 Secondary NOT GIVENUNK [place] Insurance:SELF PAY [facility] Number: Effective Repository Date:2018-01-02 12/28/2017 José Miguel Markham Primary IVA Pateloster [id number] [place] Insurance:MEDICAL MAIBACHDOB: [facility] [id number], [place] Number: Repository [address]Fzc: 330 [id number] [phone] (HP) Date:6586-01-76YQ [address] [address]VX: 12/28/2017 Secondary NOT GIVENUNK [place] Insurance:SELF PAY [facility] Number: Effective Repository Date:2017-12-07 12/27/2017 José Miguel Markham Primary IVA Larry [id number] [place] Insurance:[facility]: [facility] [id number]' Colfax Medical Center [address]Ufc: Number: Repository [id number] (HP) Date:3293-97-93NR [address], [place] [address]RI: 12/27/2017 Secondary NOT GIVENUNK [place] Insurance:SELF PAY [facility] Number: Effective Repository Date:2017-12-07 12/26/2017 José Miguel Markham Primary Insurance:[facility] Iva Larry [id number] Neil [facility] HospitalB: [facility] 3929-24-31GOTFair[place], [place] Number: Repository [phone]: 330 [id number] [phone] (HP) Date:5649-21-69TC [address] [address]JTAYPBJNL, [place] [address]SR: CHECK WEBSITE 12/26/2017 Secondary NOT GIVENUNK [place] Insurance:SELF PAY [facility] Number: Effective Repository Date:2017-12-07 12/25/2017 José Miguel Markham Primary Insurance:[facility] Iva Larry [id number] [place] [facility] HospitalB: [facility] 0057-22-35VNHFair[place], [place] Number: Repository [address]Vkh: 330 [id number] [phone] (HP) Date:7523-38-79AN [address] [address]NTKUVPXWM, [place] [address]HK: CHECK WEBSITE 12/25/2017 Secondary NOT GIVENUNK [place] Insurance:SELF PAY [facility] Number: Effective Repository Date:2017-12-07 12/24/2017 José Miguel Markham Primary Insurance:[facility] Iva Larry [id number] [facility]: [facility] 0863-77-63DVIFairbanks, [place] Number: Repository [address]Ygc: 330 [id number] [phone] (HP) Date:7208-02-08IP [address] [address]IILUEKWTW, [place] [address]RG: CHECK WEBSITE 12/24/2017 Secondary NOT GIVENUNK [place] Insurance:SELF PAY [facility] Number: Effective Repository Date:2017-12-07 12/19/2017 José Miguel Markham Primary Insurance:[facility] Iva Larry [id number] [facility] [place] [facility] 0887-03-28GFQFair[place], [place] Number: Repository [address]Njt: 330 [id number] [phone] (HP) Date:8718-39-24UV [address] [address]QWTZPZDON, [place] [address]DC: CHECK WEBSITE 12/19/2017 Secondary NOT GIVENUNK [place] Insurance:SELF PAY [facility] Number: Effective Repository Date:2017-11-30 12/07/2017 José Miguel Markham Primary Insurance:[facility] Iva Larry [id number] [facility] HospitalchD[facility]: [facility] SERVICESJeff[facility] 7092-67-39UMYFair[place], [place] Number: Repository [address]Qdx: 330 [id number] [phone] (HP) Date:7455-23-19WD [address]UMGWPRABB, [place] [address]DH: CHECK WEBSITE 12/07/2017 Secondary NOT GIVENUNK [place] Insurance:SELF PAY [facility] Number: Effective Repository Date:2017-11-15 12/06/2017 José Miguel Markham Primary Insurance:[facility] Iva Larry [id number] [facility] HospitalchD[facility]: [facility] SERVICESJeff[facility] 6196-92-11MOTFair[place], [place] Number: Repository [address]Iaj: 330 [id number] [phone] (HP) Date:7709-74-65AR [address] [address]UKPTYFEKM, [place] [address]SW: CHECK WEBSITE 12/06/2017 Secondary NOT GIVENUNK [place] Insurance:SELF PAY [facility] Number: Effective Repository Date:2017-11-15 12/05/2017 José Miguel Markham Primary Insurance:[facility] Iva Larry [id number] [facility] HospitalchD[facility]: [facility] 1135-36-06PDMFairbanks, [place] Number: Repository [address]Vce: 330 [id number] [phone] (HP) Date:1044-36-78KK [address] [address]MWVLTURZA, [place] [address]YR: CHECK WEBSITE 12/05/2017 Secondary NOT GIVENUNK [place] Insurance:SELF PAY [facility] Number: Effective Repository Date:2017-11-15 12/04/2017 José Miguel Markham Primary Insurance:[facility] Iva Larry [id number] [facility] HospitalchD[facility]: [facility] 6738-95-12BDZFair[place], [place] Number: Repository [address]Sfa: 330 [id number] [phone] (HP) Date:0093-43-82EK [address] [address]PKLOIWRUR, [place] [address]TC: CHECK WEBSITE 12/04/2017 Secondary NOT GIVENUNK [place] Insurance:SELF PAY [facility] Number: Effective Repository Date:2017-11-15 12/03/2017 José Miguel Markham Primary Insurance:[facility] Iva Larry [id number] [facility] HospitalchD[facility]: [facility] 1161-63-29FUPFairbanks, [place] Number: Repository [address]Wmw: 330 [id number] [phone] (HP) Date:2315-38-32KM [address] [address]CVOHGMTXJ, [place] [address]TE: CHECK WEBSITE 12/03/2017 Secondary NOT GIVENUNK [place] Insurance:SELF PAY [facility] Number: Effective Repository Date:2017-11-15 11/28/2017 José Miguel Markham Primary Insurance:[facility] Iva Larry [id number] [facility] 7150-29-27CVXFair[place], [place] Number: Repository [address]Crh: 330 [id number] [phone] (HP) Date:2755-76-08PP [address] [address]AWGLRQPOB, [place] [address]RC: CHECK WEBSITE 11/28/2017 Secondary NOT GIVENUNK [place] Insurance:SELF PAY [facility] Number: Effective Repository Date:2017-10-29
== END ==
PROVIDERS: Family Provider Family Medicine; PCP Family Medicine; Referring Provider Internal Medicine Hematology & Oncology; Visit Provider Internal Medicine Hematology & Oncology
DX: Z51.11 Encounter for antineoplastic chemotherapy (principal); C56.1 Malignant neoplasm of right ovary; C56.2 Malignant neoplasm of left ovary
CPT/HCPCS: 96367; 96413; J7050; A4216; J2405; J3490; J9351

== ENCOUNTER → 2018-10-09 12:52 | Outpatient (CLI) | payer OTHER, SELFPAY ==
[2018-09-17 13:49] VITALS: BMI 32.4
[2018-10-08 13:44] VITALS: BMI 31.8
[2018-10-09 13:19] VITALS: BP 115/73; PULSE 75; RESP 16; TEMP 36.3; O2SAT 97; BMI 30.8
--- OUTSIDE RECORDS SUMMARY | 2018-11-25 16:28 | XMS RPT_ITS ---
:1955 Author Organization [place] Support Name Relationship Address Phone JOSÉ MIGUEL CUEVA Unavailable [address] + [place] [address] R Unavailable Unavailable Unavailable JOSÉ MIGUEL CUEVA Unavailable [address] + [place] [address] R Unavailable Unavailable Unavailable JOSÉ MIGUEL CUEVA Unavailable [address] + [place] [address] R Unavailable Unavailable Unavailable JOSÉ MIGUEL CUEVA Unavailable [address] + [place] [address] R Unavailable Unavailable Unavailable JOSÉ MIGUEL CUEVA Unavailable [address] + [place] [address] R Unavailable Unavailable Unavailable JOSÉ MIGUEL CEUVA Unavailable [address] + [place] [address] R Unavailable Unavailable Unavailable JOSÉ MIGUEL CUEVA Unavailable [address] + [place] [address] R Unavailable Unavailable Unavailable JOSÉ MIGUEL CUEVA Unavailable [address] + [place] [address] R Unavailable Unavailable Unavailable JOSÉ MIGUEL CUEVA Unavailable [address] + [place] [address] R Unavailable Unavailable Unavailable JOSÉ MIGUEL CUEVA Unavailable [address] + [place] [address] R Unavailable Unavailable Unavailable JOSÉ MIGUEL CUEVA Unavailable [address] + [place] [address] R Unavailable Unavailable Unavailable JOSÉ MIGUEL CUEVA Unavailable [address] + [place] [address] R Unavailable Unavailable Unavailable MAIBACH, JOSÉ MIGUEL Unavailable [address] + [place] [address] R Unavailable Unavailable Unavailable MAIBACH, JOSÉ MIGUEL Unavailable [address] + [place] [address] R Unavailable Unavailable Unavailable MAIBACH, JOSÉ MIGUEL Unavailable [address] + [place] [address] R Unavailable Unavailable Unavailable MAIBACH, JOSÉ MIGUEL Unavailable [address] + [place] [address] R Unavailable Unavailable Unavailable MAIBACH, JOSÉ MIGUEL Unavailable [address] + [place] [address] R Unavailable Unavailable Unavailable MAIBACH, JOSÉ MIGUEL Unavailable [address] + [place] [address] R Unavailable Unavailable Unavailable MAIBACH, JOSÉ MIGUEL Unavailable [address] + [place] [address] R Unavailable Unavailable Unavailable MAIBACH, JOSÉ MIGUEL Unavailable [address] + [place] [address] R Unavailable Unavailable Unavailable MAIBACH, JOSÉ MIGUEL Unavailable [address] + [place] [address] R Unavailable Unavailable Unavailable MAIBACH, JOSÉ MIGUEL Unavailable [address] + [place] [address] R Unavailable Unavailable Unavailable MAIBACH, JOSÉ MIGUEL Unavailable [address] + [place] [address] R Unavailable Unavailable Unavailable MAIBACH, JOSÉ MIGUEL Unavailable [address] + [place] [address] R Unavailable Unavailable Unavailable MAIBACH, JOSÉ MIGUEL Unavailable [address] + [place] [address] R Unavailable Unavailable Unavailable MAIBACH, JOSÉ MIGUEL Unavailable [address] + [place] [address] R Unavailable Unavailable Unavailable MAIBACH, JOSÉ MIGUEL Unavailable [address] + [place] [address] R Unavailable Unavailable Unavailable MAIBACH, JOSÉ MIGUEL Unavailable [address] + [place] [address] R Unavailable Unavailable Unavailable MAIBACH JOSÉ MIGUEL Unavailable [address] + [place] [address] R Unavailable Unavailable Unavailable OSCAR CUEVAEN Unavailable [address] + [place] [address] R Unavailable Unavailable Unavailable MAYAMILCH, JOSÉ MIGUEL Unavailable [address] + [place] [address] R Unavailable Unavailable Unavailable MAIBACH, JOSÉ MIGUEL Unavailable [address] + [place] [address] R Unavailable Unavailable Unavailable MAIBACH, JOSÉ MIGUEL Unavailable [address] + [place] [address] R Unavailable Unavailable Unavailable MAIBACH, JOSÉ MIGUEL Unavailable [address] + [place] [address] R Unavailable Unavailable Unavailable ANAY JOSÉ MIGUEL Unavailable [address] + [place] [address] R Unavailable Unavailable Unavailable YVROSEIBACH, JOSÉ MIGUEL Unavailable [address] + [place] [address] R Unavailable Unavailable Unavailable ANAY JOSÉ MIGUEL Unavailable [address] + [place] [address] R Unavailable Unavailable Unavailable СВЕТЛАНАCH, JOSÉ MIGUEL Unavailable [address] + [place] [address] R Unavailable Unavailable Unavailable ANAY JOSÉ MIGUEL Unavailable [address] + [place] [address] R Unavailable Unavailable Unavailable YVROSEIBACH, JOSÉ MIGUEL Unavailable [address] + [place] [address] R Unavailable Unavailable Unavailable YVROSEIBACH, JOSÉ MIGUEL Unavailable [address] + [place] [address] R Unavailable Unavailable Unavailable YVROSEIBACH, JOSÉ MIGUEL Unavailable [address] + [place] [address] R Unavailable Unavailable Unavailable СВЕТЛАНАCH, JOSÉ MIGUEL Unavailable [address] + [place] [address] R Unavailable Unavailable Unavailable ANAY, JOSÉ MIGUEL Unavailable [address] + [place] [address] R Unavailable Unavailable Unavailable ANAY JOSÉ MIGUEL Unavailable [address] + [place] [address] R Unavailable Unavailable Unavailable MAIBACH JOSÉ MIGUEL Unavailable [address] + [place] [address] R Unavailable Unavailable Unavailable СВЕТЛАНАCH, JOSÉ MIGUEL Unavailable [address] + [place] [address] R Unavailable Unavailable Unavailable MAIBACH, JOSÉ MIGUEL Unavailable [address] + [place] [address] R Unavailable Unavailable Unavailable MAIBACH, JOSÉ MIGUEL Unavailable [address] + [place] [address] R Unavailable Unavailable Unavailable СВЕТЛАНАCH JOSÉ MIGUEL Unavailable [address] + [place] [address] R Unavailable Unavailable Unavailable ANAY JOSÉ MIGUEL Unavailable [address] + [place] [address] R Unavailable Unavailable Unavailable OSCAR CUEVAEN Unavailable [address] + [place] [address] R Unavailable Unavailable Unavailable OSCAR CUEVAEN Unavailable [address] + [place] [address] R Unavailable Unavailable Unavailable OSCAR CUEVAEN Unavailable [address] + [place] [address] R Unavailable Unavailable Unavailable СВЕТЛАНАCH JOSÉ MIGUEL Unavailable [address] + [place] [address] R Unavailable Unavailable Unavailable ANAY JOSÉ MIGUEL Unavailable [address] + [place] [address] R Unavailable Unavailable Unavailable YVROSEIBACH, JOSÉ MIGUEL Unavailable [address] + [place] [address] R Unavailable Unavailable Unavailable YVROSEIBACHOSCAREN Unavailable [address] + [place] [address] R Unavailable Unavailable Unavailable ANAY, JOSÉ MIGUEL Unavailable [address] + [place] [address] R Unavailable Unavailable Unavailable MAIBACH, JOSÉ MIGUEL Unavailable [address] + [place] [address] R Unavailable Unavailable Unavailable MAIBACH, JOSÉ MIGUEL Unavailable [address] + [place] [address] R Unavailable Unavailable Unavailable MAIBACH, JOSÉ MIGUEL Unavailable [address] + [place] [address] R Unavailable Unavailable Unavailable MAIBACH, JOSÉ MIGUEL Unavailable [address] + [place] [address] R Unavailable Unavailable Unavailable MAIBACH, JOSÉ MIGUEL Unavailable [address] + [place] [address] R Unavailable Unavailable Unavailable MAIBACH, JOSÉ MIGUEL Unavailable [address] + [place] [address] R Unavailable Unavailable Unavailable MAIBACH, JOSÉ MIGUEL Unavailable [address] + [place] [address] R Unavailable Unavailable Unavailable MAIBACH, JOSÉ MIGUEL Unavailable [address] + [place] [address] R Unavailable Unavailable Unavailable MAIBACH, JOSÉ MIGUEL Unavailable [address] + [place] [address] R Unavailable Unavailable Unavailable MAIBACH, JOSÉ MIGUEL Unavailable [address] + [place] [address] R Unavailable Unavailable Unavailable MAIBACH, JOSÉ MIGUEL Unavailable [address] + [place] [address] R Unavailable Unavailable Unavailable MAIBACH, JOSÉ MIGUEL Unavailable [address] + [place] [address] R Unavailable Unavailable Unavailable MAIBACH, JOSÉ MIGUEL Unavailable [address] + [place] [address] R Unavailable Unavailable Unavailable MAIBACH, JOSÉ MIGUEL Unavailable [address] + [place] [address] R Unavailable Unavailable Unavailable MAIBACH, JOSÉ MIGUEL Unavailable [address] + [place] [address] R Unavailable Unavailable Unavailable MAIBACH, JOSÉ MIGUEL Unavailable [address] + [place] [address] R Unavailable Unavailable Unavailable JOSÉ MIGUEL CUEVA Unavailable [address] + [place] [address] R Unavailable Unavailable Unavailable JOSÉ MIGUEL CUEVA Unavailable [address] + [place] [address] R Unavailable Unavailable Unavailable JOSÉ MIGUEL CUEVA Unavailable [address] + [place] [address] R Unavailable Unavailable Unavailable JOSÉ MIGUEL CUEVA Unavailable [address] + [place] [address] R Unavailable Unavailable Unavailable JOSÉ MIGUEL CUEVA Unavailable [address] + [place] [address] [facility] Unavailable [address] + [place] [address] Care Team Providers Name Role Phone OMAR GROSS Attending Unavailable MASCI, OMAR Lucia Referring Unavailable MASCI, OMAR Lucia Attending Unavailable MASCI, OMAR Lucia Referring Unavailable MASCI, OMAR Lucia Attending Unavailable MASCI, OMAR Lucia Referring Unavailable MASCI, OMAR Lucia Attending Unavailable MASCI, OMAR Lucia Referring Unavailable MASCI, OMAR Lucia Attending Unavailable MASCI, OMAR Lucia Referring Unavailable CATIE JO Attending Unavailable CATIE JO Referring Unavailable THELMATERRANCE Attending Unavailable MASCI, OMAR Lucia Referring Unavailable MASCI, OMAR Lucia Referring Unavailable MASCI, OMAR Lucia Referring Unavailable PAIGE QUEEN (RN CLINICAL QUALITY) Referring Unavailable TERRANCE RENEE Referring Unavailable MASCI, OMAR Lucia Attending Unavailable MASCI, OMAR Lucia Referring Unavailable MASCI, OMAR Lucia Attending Unavailable MASCI, OMAR Lucia Referring Unavailable MASCI, OMAR Lucia Attending Unavailable MASCI, OMAR Lucia Referring Unavailable MASCI, OMAR Lucia Attending Unavailable MASCI, OMAR Lucia Referring Unavailable MASCI, OMAR Lucia Referring Unavailable MASCI, OMAR Lucia Referring Unavailable OMID GEE Admitting Unavailable OMID GEE Attending Unavailable TIARA BRONW (RUSLAN) Referring Unavailable Masci, Omar Attending Unavailable Masci, Omar [facility] Omar Attending Unavailable Masci, Omar Referring [facility]available [facility] Masci, Omar Attending [facility]available [facility] Masci, Omar Attending Unavailable Masci, Omar Referring Unavailable [facility] [place] [facility] Unavailable Masci, Omar Attending Unavailable Masci, Omar Referring Unavailable [facility] [place] [facility] Unavailable Masci, Omar Attending Unavailable Masci, Omar Referring Unavailable [facility] [place] [facility] Unavailable Masci, Omar Attending Unavailable Masci, Omar Referring Unavailable [facility] [place] [facility] Unavailable Masci, Omar Attending Unavailable Masci, Omar Referring Unavailable [facility] [place] [facility] Unavailable Masci, Omar Attending Unavailable Masci, Omar Referring Unavailable [facility] [place] [facility] Unavailable Masci, Omar Attending Unavailable Masci, Omar Referring Unavailable [facility] [place] [facility] Unavailable Masci, Omar Attending Unavailable Masci, Omar Referring Unavailable [facility] [place] [facility] Unavailable Masci, Omar Attending Unavailable Masci, Omar Referring Unavailable [facility] [place] [facility] Unavailable Masci, Omar Attending Unavailable Masci, Omar Referring Unavailable [facility] [place] [facility] Unavailable Masci, Omar Attending Unavailable Masci, Omar Referring Unavailable [facility] [place] [facility] Unavailable Masci, Omar Attending Unavailable Masci, Omar Referring Unavailable [facility] [place] [facility] Unavailable Masci, Omar Attending Unavailable Masci, Omar Referring Unavailable [facility], [place] [facility] Unavailable Masci, Omar Attending Unavailable Masci, Omar Referring Unavailable [facility], [place] [facility] Unavailable Masci, Omar Attending Unavailable Masci, Omar Referring Unavailable [facility] [place] [facility] Unavailable Masci, Omar Attending Unavailable Masci, Omar Referring Unavailable [facility], [place] [facility] Unavailable Masci, Omar Attending Unavailable Masci, Omar Referring Unavailable [facility] [place] [facility] Unavailable Masci, Omar Attending Unavailable Masci, Omar Referring Unavailable [facility] [place] [facility] Unavailable Masci, Omar Attending Unavailable Masci, Omar Referring Unavailable [facility] [place] [facility] Unavailable Masci, Omar Attending Unavailable Masci, Omar Referring Unavailable [facility] [place] [facility] Unavailable Masci, Omar Attending Unavailable Masci, Omar Referring Unavailable [facility] [place] [facility] Unavailable Masci, Omar Attending Unavailable Masci, Omar Referring Unavailable [facility] [place] [facility] Unavailable Masci, Omar Attending Unavailable Masci, Omar Referring Unavailable [facility] [place] [facility] Unavailable Masci, Omar Attending Unavailable Masci, Omar Referring Unavailable [facility] [place] [facility] Unavailable Masci, Omar Attending Unavailable Masci, Omar Referring Unavailable [facility] [place] [facility] Unavailable Masci, Omar Attending Unavailable Masci, Omar Referring Unavailable [facility] [place] [facility] Unavailable Masci, Omar Attending Unavailable Masci, Omar Referring Unavailable [facility] [place] [facility] Unavailable Masci, Omar Attending Unavailable Masci, Omar Referring Unavailable [facility] [place] [facility] Unavailable Masci, Omar Attending Unavailable Masci, Omar Referring Unavailable [facility], [place] [facility] Unavailable Masci, Omar Attending Unavailable Masci, Omar Referring Unavailable [facility], [place] [facility] Unavailable Masci, Omar Attending Unavailable Masci, Omar Referring Unavailable [facility], [place] [facility] Unavailable Masci, Omar Attending Unavailable Masci, Omar Referring Unavailable [facility], [place] [facility] Unavailable Masci, Moar Attending Unavailable Masci, Omar Referring Unavailable [facility], [place] [facility] Unavailable Masci, Omar Attending Unavailable Masci, Omar Referring Unavailable [facility], [place] [facility] Unavailable Masci, Omar Attending Unavailable Masci, Omar Referring Unavailable [facility], [place] [facility] Unavailable Masci, Omar Attending Unavailable Masci, Omar Referring Unavailable [facility], [place] [facility] Unavailable Masci, Omar Attending Unavailable Masci, Omar Referring Unavailable [facility], [place] [facility] Unavailable Masci, Omar Attending Unavailable Masci, Omar Referring Unavailable [facility] Primary Care Unavailable Masci, Omar Attending Unavailable Masci, Omar Referring Unavailable [facility] Primary Care Unavailable Masci, Omar Attending Unavailable Masci, Omar Referring Unavailable [facility], [place] [facility] Unavailable Masci, Omar Attending Unavailable Masci, Omar Referring Unavailable [facility], [place] [facility] Unavailable Masci, Omar Attending Unavailable Masci, Omar Referring Unavailable [facility] Primary Care Unavailable Masci, Omar Attending Unavailable Masci, Omar Referring Unavailable [facility] Primary Care Unavailable Masci, Omar Attending Unavailable Masci, Omar Referring Unavailable [facility], [place] [facility] Unavailable Masci, Omar Attending Unavailable Masci, Omar Referring Unavailable [facility] Primary Care Unavailable Masci, Omar Attending Unavailable Masci, Omar Referring Unavailable [facility], [place] [facility] Unavailable Masci, Omar Attending Unavailable Masci, Omar Referring Unavailable [facility], [place] [facility] Unavailable Masci, Omar Attending Unavailable Masci, Omar Referring Unavailable [facility], [place] [facility] Unavailable Masci, Omar Attending Unavailable Masci, Omar Referring Unavailable [facility] [place] [facility] Unavailable Masci, Omar Attending Unavailable Masci, Omar Referring Unavailable [facility] [place] [facility] Unavailable Masci, Omar Attending Unavailable Masci, Omar Referring Unavailable [facility] [place] [facility] Unavailable Masci, Omar Attending Unavailable Masci, Omar Referring Unavailable [facility] [place] [facility] Unavailable Masci, Omar Attending Unavailable Masci, Omar Referring Unavailable [facility] [place] [facility] Unavailable Masci, Omar Attending Unavailable Masci, Omar Referring Unavailable [facility] [place] [facility] Unavailable Masci, Omar Attending Unavailable Masci, Omar Referring Unavailable [facility] [place] [facility] Unavailable Masci, Omar Attending Unavailable Masci, Omar Referring Unavailable [facility] [place] [facility] Unavailable Masci, Omar Attending Unavailable Masci, Omar Referring Unavailable [facility] [place] [facility] Unavailable Masci, Omar Attending Unavailable Masci, Omar Referring Unavailable [facility] [place] [facility] Unavailable Masci, Omar Attending Unavailable Masci, Omar Referring Unavailable [facility] [place] [facility] Unavailable Masci, Omar Attending Unavailable Masci, Omar Referring Unavailable [facility] [place] [facility] Unavailable Masci, Omar Attending Unavailable Masci, Omar Referring Unavailable [facility] [place] [facility] Unavailable Masci, Omar Attending Unavailable Masci, Omar Referring Unavailable [facility], [place] [facility] Unavailable Masci, Omar Attending Unavailable Masci, Omar Referring Unavailable [facility] [place] [facility] Unavailable Masci, Omar Attending Unavailable Masci, Omar Referring Unavailable [facility] [place] [facility] Unavailable Masci, Omar Attending Unavailable Masci, Omar Referring Unavailable [facility], [place] [facility] Unavailable Masci, Omar Attending Unavailable Masci, Omar Referring Unavailable [facility] [place] [facility] Unavailable Masci, Omar Attending Unavailable Masci, Omar Referring Unavailable [facility] [place] [facility] Unavailable Masci, Omar Attending Unavailable Masci, Omar Referring Unavailable [facility] [place] [facility] Unavailable Masci, Omar Attending Unavailable Masci, Omar Referring Unavailable [facility] [place] [facility] Unavailable MarcanthonyMarcy Attending Unavailable [place], [place] Referring Unavailable Marcanthony, Marcy Attending Unavailable Marcanthony, Marcy Referring Unavailable [facility], [place] [facility] Unavailable Masci, Omar Attending Unavailable Masci, Omar Referring Unavailable [facility] [place] [facility] Unavailable Masci, Omar Attending Unavailable Masci, Omar Referring Unavailable [facility] [place] [facility] Unavailable Masci, Omar Attending Unavailable Masci, Omar Referring Unavailable [place], [place] [facility] Unavailable Masci, Omar Attending Unavailable Masci, Omar Referring Unavailable [place], [place] [facility] Unavailable Masci, Omar Attending Unavailable Masci, Omar Referring Unavailable [facility] [place] [facility] Unavailable Masci, Omar Attending Unavailable Masci, Omar Referring Unavailable [facility] [place] [facility] Unavailable PROBLEMS PROBLEMS DATE TYPE CONDITION / CODE ATTENDING STATUS SOURCE 10/28/2018 Active Malignant neoplasm of NA Active [place] unspecified ovary / Clinic Main C56.9(ICD-10) [place] Rep[facility] 10/28/2018 Active Disseminated malignant NA Active [place] neoplasm, unspecified Clinic Main / C80.0(ICD-10) [place] Rep[facility] 10/28/2018 Active Unknown / UNK(Unknown) NA Active [facility] Main [place] Repository 09/17/2018 Unknown N63.20 - Unspecified Marcanthony, Active [place] lump in the left [facility] breast, unspecified Hospital quadrant / Repository N63.20(ICD-10) 08/29/2018 Unknown C56.1 - Malignant Omar Gross Active [place] neoplasm of right [facility] ovary / C56.1(ICD-10) Hospital Repository 07/04/2018 Active Nausea with vomiting, OMAR GROSS Active [place] unspecified / Clinic Main R11.2(ICD-10) [place] Rep[facility] 07/04/2018 Active Adverse effect of OMAR GROSS Active [place] antineoplastic and Clinic Main immunosuppressive [place] drugs, initial Repository encounter / T45.1X5A(ICD-10) 02/15/2016 Active Malignant neoplasm of NA Active [place] right ovary / Clinic Main C56.1(ICD-10) [place] Rep[facility] 02/15/2016 Active Malignant neoplasm of NA Active [place] left ovary / Clinic Main C56.2(ICD-10) [place] Rep[facility] 04/24/2018 Unknown Z51.11 - Encounter for Omar Gross Active [place] antineoplastic [facility] chemotherapy / Hospital Z51.11(ICD-10) Repository 04/24/2018 Unknown C56.9 - Malignant Omar Gross Active [place] neoplasm of [facility] unspecified ovary / Hospital C56.9(ICD-10) Repository PROCEDURES PROCEDURES No Procedure Records FoundRESULTS RESULTS CBC W/DIFF, AUTOMATED Collected: 11/19/2018 Status: F Source: [place] 9:[address] [facility] REPOSITORY TYPE CODE TESTS RESULT [...] Lymph 1.70 Performed By: #### L100.0100 #### [facility] [address] [place], [address] COMPREHENSIVE METABOLIC Collected: 11/19/2018 Status: F Source: [place] [facility] 9:[address] [facility] REPOSITORY TYPE CODE TESTS RESULT [...] GAP 7 Performed By: #### L500.4050 #### [facility] [address] [place], [place], [id number] NURSING PROG Observed: 11/04/2018 Status: COMPLETED Source: [place] 8:00 PM [facility] REPOSITORY HNO ID: [id number] Author: Amara Bishop) MARTELL De La Torre Service: (none) Author Type: LICENSED NURSE Type: Nursing Progress Note Filed: 11/05/2018 8:43 AM Note Text: Radiology post procedure telephone follow-up call attempted. Left voice message requesting a return phone call to [phone] if experiencing any problems or concerns. After hours please call [phone] and ask for pager [phone] SURGICAL PATHOLOGY Observed: 11/04/2018 Status: C Source: [place] 4:00 PM [facility] REPOSITORY ADDENDUM PRESENT Specimen originated from [facility] Specimen #: [id number] Submitting Physician: OMID GEE MD FINAL DIAGNOSIS [...] in one cassette. Gross examination performed at [facility], [address] [place] [address] 11/04/2018 9:34:25 PM Date of Report: 11/05/2018 Date of Procedure: 11/04/2018 Date of Receipt: 11/04/2018 Submitted by: OMID GEE MD Additional Physician(s): OMAR GROSS M.D. ([id number]) Location: [facility] Diagnostic [place] [address]. CT BIOPSY ABD/RETROPERIT Observed: 11/04/2018 Status: F Source: [facility] 3:48 PM [facility] REPOSITORY * * *Final Report* * * DATE OF EXAM: Nov 04 2018 3:48PM [facility] 2018 - CT BIOPSY ABD/RETROPERIT MASS / [...] and omental/peritoneal nodules. STAFF RADIOLOGIST: Dr. Gee ENGLISH AS A SECOND LANGUAGE TEACHER(S): Mariana Wood APRN RN CLINICAL QUALITY CONSENT: The risks, benefits, treatment options, potential [...] The procedure was performed by the: the assistant auditor, and the attending radiologist personally supervised the [...] GUIDED OMENTAL MASS BIOPSY DESCRIBED v 10/31/16 Health Care Aide: AVA Transcribe Date/Time: Nov 04 2018 3:49P Dictated by : OMID GEE MD This examination was interpreted and the report reviewed and electronically signed by: OMID GEE MD on Nov 04 2018 4:34PM EST [id number] BRIEF OP NOT Observed: 11/04/2018 Status: COMPLETED Source: [place] 3:46 PM [facility] REPOSITORY HNO ID: [id number] Author: Mariana Miller) [place] Service: Radiology Author Type: Nurse Practitioner Type: Brief Op Note Filed: 11/04/2018 3:47 PM Note Text: BRIEF OPERATIVE / PROCEDURE NOTE LOG ID: [id number] SURGERY/PROCEDURE DATE: 11/04/2018 INCISION/PROCEDURE START TIME: 3:19 PM INCISION CLOSE/PROCEDURE END TIME: 3:33 PM SURGEON(S)/PROCEDURALIST(S) AND ENGLISH AS A SECOND LANGUAGE TEACHER(S): Surgeon(s) and Role: * Omid Gee - Primary Mariana Wood APRN, CNP- Integrated Logistics Programs Director SURGERY/PROCEDURE(S): CT guided biopsy of peritoneal nodule ANESTHESIA: Procedural Sedation FINDINGS: nodule consistent with previous imaging ESTIMATED BLOOD LOSS: minimal SPECIMENS: four 18 gauge cores COMPLICATIONS: None PRE-OP/PRE-PROCEDURE DIAGNOSIS: 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 POST-OP/POST-PROCEDURE DIAGNOSIS: Same as above SIGNATURE: Mariana Wood APRN.CNP PATIENT NAME: Iva Cueva DATE: November 04, 2018 TIME: 3:46 PM PAGER/CONTACT #: [phone] PROGRESS Observed: 11/04/2018 Status: COMPLETED Source: [place] 3:44 PM [facility] REPOSITORY HNO ID: [id number] Author: AWA Stroud (Ct) Service: (none) Author Type: Clinical Doctor Of Nurse Anesthesia Practice Type: Progress Notes Filed: 11/04/2018 3:49 PM [...] PT ED Observed: 11/04/2018 Status: COMPLETED Source: [place] 2:47 PM [facility] REPOSITORY HNO ID: [id number] Author: Griselda KatzRn) TOMÁS Rodriguez Service: (none) [...] HISTORY PHYSICAL Observed: 11/04/2018 Status: COMPLETED Source: [place] 2:20 PM [facility] REPOSITORY HNO ID: [id number] Author: Omid Gee Service: Radiology Author Type: [...] November 04, 2018 TIME: 2:20 PM PAGER: [phone] CBC Collected: 11/01/2018 Status: F Source: [place] 1:16 PM [facility] REPOSITORY TYPE CODE TESTS RESULT [...] nRBC <0.01 Performed By: #### CBC #### [facility] [address] [place], [place] [address] PROTIME Collected: 11/01/2018 Status: F Source: [place] 1:15 PM [facility] REPOSITORY TYPE CODE TESTS RESULT OUT OF RANGE REFERENCE UNITS LAB PSEC 9.7-13.0 sec PT Sec 10.5 LAB INR 0.9-1.3 PT INR 1.0 Result Comment: Vitamin K Antagonist (VKA) Therapeutic Range: INR 2 to 3 (Target INR of 2.5) Note: For patients treated with VKA drugs, such as warfarin, the [employer] 2012 Guideline recommends [...] GAR, et al. Chest 2012, 141:7S-47S Pee MORALES, et al. [facility] 2017, 70: 252-289 Performed By: #### PT #### [facility] [address] [place], [place] [address] NURSING PROG Observed: 10/31/2018 Status: COMPLETED Source: [place] 1:29 PM [facility] REPOSITORY HNO ID: [id number] Author: Amara Bishop) MARTELL De La Torre Service: (none) Author Type: LICENSED NURSE Type: Nursing Progress Note Filed: 10/31/2018 1:39 PM Note Text: Pre-procedure phone calls: Contacted Iva Cueva and confirmed appt. for Biopsy scheduled on 11/04/2018, at [facility]. I will be providing you with instructions [...] to be drawn by 11/01/2018 at the [facility] closest to your home or your procedure will be rescheduled. Arrival: Please bring your Photo ID and Insurance Card. A general consent may need to be signed. Arrive to J1-1 ([facility]) Admitting/Registration by 12:30pm. Then proceed to desk QB-1 ([facility]) and check in for your procedure. Your anticipated procedure start time will be between 2 AND 2:30pm. Tar Boiler/Transportation: How will you be arriving for your procedure? private car. If you will be arriving at [facility] via ambulance or public transportation, please call to discuss. You will need a responsible adult to accompany you to and from the procedure. Your tractor sweeper driver is required to stay with you [...] you... What is your arrival time to -? 1230pm What time do you stop eating food? 6am What time can you have clears until? 12 noon Tell me how you will be taking your medications the morning of your procedure? water Written instructions provided to patient via Mobly If you have any questions please call [phone] HOSP Observed: 10/31/2018 Status: COMPLETED Source: [place] 12:00 AM [facility] REPOSITORY Patient:Iva Cueva MRN: <[id number]> Height:5' 4(1.626 m) Weight:183 lb (83.008 kg) [...] % 11/01/2018 46.0 36.0 Progress Notes ([facility]): Ania Reed, PODIATRIC ASSISTANT, PODIATRIC ASSISTANT 11/01/2018 9:11 AM Signed Diane Ragland [facility] Hem/Onc Pool Cc: Randa Davison (Cbo) ? Good morning All, I am contacting you from the Precertification Department here at the [facility]. Iva Cueva, , is being reviewed for the following procedure: 24533- CT Chest on 10/28/2018. Clinical has been submitted to the patient's insurance company [employer] and the request was denied. Please see [...] Who can complete peer to peer: , SKIP PITMAN, PA, you need to get verbal consent from the patient in order to complete the peer review as the insurance will ask if verbal consent has been obtained prior to the peer review. Peer to Peer Information: Peer to peer phone #: [phone] (option 4, 2) Appeal fax #: [phone] Appeal mailing address: [employer] Attn: Appeals [address] [place] [address], [address] [place] [id number] Case reference #: [id number] [facility] NPI :[id number] ?[facility] TAX ID [id number] Thank you for your attention to this matter, Diane Queen APRN.ILDEFONSO 11/01/2018 10:32 AM Signed Peer to peer scheduled for Sunday at 8a.m. ZACARIAS Amin APRN.CNP 11/04/2018 8:42 AM Signed Approved. #[id number]. Paige Queen APRN.ILDEFONSO Progress Notes ([facility]): Rosy Roth Psr 10/31/2018 12:25 PM Signed Patient wanted to give Dr. Gross a heads up that she is having a procedure on Sunday11-04-[facility]. She also wanted to talk about the chemo schedules she will be traveling a lot not sure how it is going to fit into her schedule. She would like for Dr Gross give her a call so she may talk to him. Omar Gross DO 10/31/2018 1:16 PM Signed I spoke with her. DO SHAZIA Dominguez Observed: 10/30/2018 Status: COMPLETED Source: [place] 12:00 AM [facility] REPOSITORY Telephone (HEMAWS) IVA CUEVA ([id number]) 1955 F Date Time Provider Department 10/30/18 [...] order for this to be done at [facility]. Let's arrange for her. DO Lora Dominguez Psr Shawn 10/30/2018 9:51 AM Signed Called call center to be triaged - [phone] Once triaged, they will call patient to schedule. Radha Gonzalezjhonathan Psr 10/30/2018 9:52 AM Signed RADIOLOGY CALL CENTER INTAKE FEATURE WRITER: radha EXT: [phone] DATE: October 30, 2018 TIME: 9:46 AM TRACKING #. [id number] REQUESTING PERSON: rody PHONE/PAGER: [phone] REQUESTING STAFF: Dr gross PHONE/PAGER: [phone] ORDERING DESK LOCATION: [facility] If inpatient, patient location: Never done (Note: requests for inpatient's procedures should be given to the O.D. nurse at pager #[phone]) If outpatient, best way to reach patient: [...] random biopsies do not need imaging.) IMAGING: [facility] (If the imaging was obtained outside the [facility] system, then it needs to be submitted for review prior to approval.) Note to all persons requesting biopsies: All biopsy requests will be scheduled as quickly as possible, based on the clinical urgency, availability of appointment times, the need to hold anti-thrombolytic therapy (aspirin, blood thinners) and the patient?s schedule, including the need for an available tractor sweeper driver. If a percutaneous biopsy or drainage is not felt to be safe or an alternative method for establishing a diagnosis is possible, this will be discussed directly with the requesting physician. Amara De La Torre LPN, MARTELL 10/30/2018 2:46 PM Signed . BX. COORDINATOR [...] [C56.1, C56.2] Order(s):IMAGING GUIDED BIOPSY ABDOMEN/RETROPERITONEAL MASS [[id number]] Order #: [id number] Prescriptions as of 10/30/2018 Sig: ZOLPIDEM 5 [...] 10/31/18 PROGRESS Observed: 10/28/2018 Status: COMPLETED Source: [place] 3:19 PM [facility] REPOSITORY HNO ID: [id number] Author: Ofelia Landeros Ct Service: (none) Author [...] W IVCON Observed: 10/28/2018 Status: F Source: [place] 3:19 PM [facility] REPOSITORY * * *Final Report* * * DATE OF EXAM: Oct 28 2018 3:19PM [facility] 0539 - CT CHEST W IVCON [...] Small amount of fluid in the pelvis Health Care Aide: PSCB Transcribe Date/Time: Oct 28 2018 4:11P Dictated by : CARLOS ALBERTO HASKINS MD This examination was interpreted and the report reviewed and electronically signed by: CARLOS ALBERTO HASKINS MD on Oct 28 2018 4:49PM EST [id number] CT ABD/PEL W IVCON Observed: 10/28/2018 Status: F Source: [place] 3:19 PM [facility] REPOSITORY * * *Final Report* * * DATE OF EXAM: Oct 28 2018 3:19PM [facility] 0530 - CT ABD/PEL W IVCON [...] Small amount of fluid in the pelvis Health Care Aide: [facility] Transcribe Date/Time: Oct 28 2018 4:11P Dictated by : CARLOS ALBERTO HASKINS MD This examination was interpreted and the report reviewed and electronically signed by: CARLOS ALBERTO HASKINS MD on Oct 28 2018 4:49PM EST [id number] CANCER ANTIGEN 125 Collected: 10/25/2018 Status: F Source: [place] 11:[address] [facility] REPOSITORY TYPE CODE TESTS RESULT OUT OF RANGE REFERENCE UNITS LAB L3100.5000 0.0-38.1 U/mL High CA125 78.9 2303 Result Comment: Meghna ECLIA methodology Performed at: [facility] [address] [id number] Clinical Trial Head: Carlo Bass PhD, Phone: [phone] Performed By: #### L3100.5000 #### [facility] (refer to report for specific site) refer to report for address and phone number PROGRESS Observed: 10/24/2018 Status: COMPLETED Source: [place] 4:14 PM [facility] REPOSITORY HNO ID: [id number] Author: Omar Gross Service: (none) Author Type: Physician Type: Progress Notes Filed: 10/24/2018 8:10 PM Note Text: Diagnosis: 1) Ovarian cancer. ? HPI: The patient is a 63 year old female who presented to her PCP prior to a trip to [facility] for vaccinations. She reported that she was [...] Taxol x 6 cycles, completed 05/27/13. 6) Catawba/carbo/cassandra x cycles for biopsy proven metastatic disease [...] No jaundice or rash. No petechiae. 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 No focal motor [...] DO CNOVSP Observed: 10/24/2018 Status: COMPLETED Source: [place] 4:00 PM [facility] REPOSITORY Visit (SP) Office (PRISCILLA) IVA CUEVA ([id number]) 1955 F Date Time Provider Department 10/24/18 4:00 PM OMAR GROSS During your visit today, we recorded the following information about you: Temperature Pulse Blood pressure Weight 97.4 degrees 86/minute 137/89 83 kg Ania Reed LPN, MARTELL 10/24/2018 4:45 PM Signed Est . Pt. Discuss recent labs, poss tx Sunday MARTELL Grimaldo DO 10/24/2018 8:10 PM Signed Diagnosis: 1) Ovarian cancer. ? HPI: The patient is a 63 year old female who presented to her PCP prior to a trip to [facility] for vaccinations. She reported that she was [...] Taxol x 6 cycles, completed 05/27/13. 6) Catawba/carbo/cassandra x cycles for biopsy proven metastatic disease [...] No jaundice or rash. No petechiae. 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 No focal motor [...] Omar Gross DO Referring Provider: OMAR GROSS [[id number]] Allergies As of Date: 10/24/2018 Noted Allergy [...] Carcinomatosis (HCC) [C80.0] Order(s):CT ABD/PEL W IVCON [[id number]] Order #: [id number] FUTURE CT CHEST W IVCON [[id number]] Order #: [id number] FUTURE iv contrast (will be provided with [...] INVALID FOR* More... Visit Notes: >> Ania Vasquez (Salesforce Business Analyst) BriannaMARTELL Brea Oct 24, 2018 4:11 PM Status: Signed Est . Pt. Discuss recent labs, poss tx Sunday Ania Reed, PODIATRIC ASSISTANT Encounter Status:Closed by OMAR GROSS DO on 10/24/18 CBC W/DIFF, AUTOMATED Collected: 10/23/2018 Status: C Source: [place] 12:[address] [facility] REPOSITORY Order Comment: CRITICAL VALUE VERIFIED. CALLED TO JANE 10/23/18 Regina Recinos. RESULTS READ BACK BY MARY . [...] 10/24/18 1420 PATH REV previously reported as: Iman jalyn Performed By: #### L100.0100 #### [facility] [address] [place], [address] COMPREHENSIVE METABOLIC Collected: 10/23/2018 Status: F Source: [place] [facility] 12:[address] [facility] REPOSITORY TYPE CODE TESTS RESULT [...] GAP 8 Performed By: #### L500.4050 #### [facility] [address] [place], [address] Observed: 10/09/2018 Status: F Source: [place] CDIFF (MOLECULAR) 3:[address] [facility] REPOSITORY Is the patient receiving laxatives? N New/unexplained onset of 3 or more stools in past 24 hrs? Y Has pt arrived? Y Cdiff-Molecular Normal Reference Range = Negative C. Diff DNA Negative- No toxigenic C. Diff DNA Detected NAAT METHOD Testing was performed using nucleic acid amplification Performed By: #### M100.6796 #### [facility] [address] [place], [address] CBC W/DIFF, AUTOMATED Collected: 10/07/2018 Status: F Source: [place] 9:[address] [facility] REPOSITORY TYPE CODE TESTS RESULT [...] Lymph 1.28 Performed By: #### L100.0100 #### [facility] [address] [place], [address] COMPREHENSIVE METABOLIC Collected: 10/07/2018 Status: F Source: [facility] 9:[address] [facility] REPOSITORY TYPE CODE TESTS RESULT [...] GAP 8 Performed By: #### L500.4050 #### [facility] [address] [place], [place], [address] CANCER ANTIGEN 125 Collected: 10/07/2018 Status: F Source: [place] 9:[address] [facility] REPOSITORY TYPE CODE TESTS RESULT OUT OF RANGE REFERENCE UNITS LAB L3100.5000 0.0-38.1 U/mL High CA125 90.0 2303 Result Comment: [employer] ECLIA methodology Performed at: [facility] [address] [id number] Clinical Trial Head: Carlo Bass PhD, Phone: [phone] Performed By: #### L3100.5000 #### [facility] (refer to report for specific site) refer to report for address and phone number BREAST LIMITED Observed: 09/26/2018 Status: F Source: [place] UNILATERAL 1:[address] [facility] REPOSITORY [facility] [address] [place] [address] Breast Limited Unilateral MR#: [id number] Acct: [id number] Name: IVA CUEVA Jhonathan Rep #: [id number] : 1955 F 63 From: Shahbaz Munguia MD PCP: Peter Deras MD Status: REG CLI Study: Breast Limited Unilateral Date of Exam: 09/26/18 Exam# [id number] Ordering Dr: Marcy Bruno MD STUDY: ULTRASOUND [...] Shahbaz Munguia MD at 15:18 EST Tel [phone], Service support , CC: Peter Deras MD; Marcy Bruno MD Health Care Aide: Signed DIAG MAMM W/CAD, Observed: 09/26/2018 Status: F Source: [facility] 1:[address] [facility] REPOSITORY [facility] [address] [place] [address] DIAG MAMM W/CAD, BILAT MR#: [id number] Acct: [id number] Name: IVA CUEVA Rep #: [id number] : 1955 F 63 From: Shahbaz Munguia MD PCP: Peter Deras MD Status: REG CLI Study: DIAG MAMM W/CAD, BILAT Date of Exam: 09/26/18 Exam# [id number] Ordering Dr: Marcy Bruno MD MAMMOGRAPHY - [...] Shahbaz Munguia MD at 8:58 EST Tel [phone], Service support , CC: Peter Deras MD; Marcy Bruno MD Health Care Aide: Signed EDUCATIONAL AUDIOLOGIST OFFICE VISIT Observed: 09/26/2018 Status: F Source: [place] REPORT 6:01 AM [facility] [address] [place] [address] OFFICE VISIT Date of Service: 09/17/18 MR#: [id number] Acct: [id number] Name: IVA CUEVA Rep #: [id number] : 1955 Provider: Marcy Bruno MD Age/Sex: 63/F Location[facility] Status: Signed Intake Vital Signs09/17/18 Height 5 ft 4 in 09/17/18 Weight: 189 lb 2 oz 09/17/18 Body Mass Index (BMI) 32.4 09/17/18 Blood Pressure 122/80 H Intake Visit Reasons: ANNUAL Chief Complaint: est annual Life Claims Examiner Required: No Is patient in pain?: No [...] Para 2 Spontaneous abortions Past Pregnancies Del. DatNamsamantha [place]/WeeksOutcome Route [facility] LocaProviderFOB e ht en ia tn Unknown [...] CC: PROGRESS Observed: 08/30/2018 Status: COMPLETED Source: [place] 3:15 PM [facility] REPOSITORY HNO ID: [id number] Author: Omar Gross Service: (none) Author Type: Physician Type: Progress Notes Filed: 09/02/2018 9:16 AM Note Text: Diagnosis: 1) Ovarian cancer. ? HPI: The patient is a 63 year old female who presented to her PCP prior to a trip to [facility] for vaccinations. She reported that she was [...] Taxol x 6 cycles, completed 05/27/13. 6) Catawba/carbo/cassandra x cycles for biopsy proven metastatic disease [...] No jaundice or rash. No petechiae. 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 No focal motor weakness. ? ASSESSMENT/PLAN: (C56.1, C56.2) Cancer of both ovaries (HCC) (primary encounter diagnosis) (C78.7) Liver metastases (HCC) KPS is 90%. Biopsy-proven recurrence. [place] refractory? -She is tolerating topotecan well thus [...] DO CNOVSP Observed: 08/30/2018 Status: COMPLETED Source: [place] 3:10 PM [facility] REPOSITORY Visit (SP) Office (PRISCILLA) IVA CUEVA ([id number]) 1955 F Date Time Provider Department 08/30/18 [...] her PCP prior to a trip to [facility] for vaccinations. She reported that she was [...] Taxol x 6 cycles, completed 05/27/13. 6) Catawba/carbo/cassandra x cycles for biopsy proven metastatic disease [...] No jaundice or rash. No petechiae. 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 No focal motor weakness. ? ASSESSMENT/PLAN: (C56.1, C56.2) Cancer of both ovaries (HCC) (primary encounter diagnosis) (C78.7) Liver metastases (HCC) KPS is 90%. Biopsy-proven recurrence. [place] refractory? -She is tolerating topotecan well thus [...] day. Omar Gross DO Referring Provider: OMAR RGOSS [[id number]] Allergies As of Date: 08/30/2018 Noted Allergy [...] COMPREHENSIVE METABOLIC Collected: 08/26/2018 Status: F Source: [place] 4:[address] [facility] REPOSITORY TYPE CODE TESTS RESULT [...] GAP 11 Performed By: #### L500.4050 #### [facility] [address] [place], [address] CBC W/DIFF, AUTOMATED Collected: 08/26/2018 Status: F Source: [place] 4:[address] [facility] REPOSITORY TYPE CODE TESTS RESULT [...] Normal RARE Performed By: #### L100.0100 #### [facility] [address], [address] CANCER ANTIGEN 125 Collected: 08/26/2018 Status: F Source: [place] 4:[address] [facility] REPOSITORY TYPE CODE TESTS RESULT OUT OF RANGE REFERENCE UNITS LAB L3100.5000 0.0-38.1 U/mL High CA125 59.5 2303 Result Comment: [employer] ECLIA methodology Performed at: [facility] [address] [id number] Clinical Trial Head: Carlo Bass PhD, Phone: [phone] Performed By: #### L3100.5000 #### [facility] (refer to report for specific site) refer to report for address and phone number HOSP Observed: 08/12/2018 Status: COMPLETED Source: [place] 12:00 AM [facility] REPOSITORY Patient Update (HEMANAND) IVA CUEVA ([id number]) 1955 F Date Time Provider Department 08/12/18 OMAR GROSS During your visit today, we recorded the following information about you: Joshua Woods, RN, RN 08/12/2018 3:58 PM Signed Jacinta Tariq from [facility] prior auth called to verify pt's dose of Avastin. Pt's weight has changed and wanted to check what dose of Avastin pt should be getting. Jane checked with Dr Gross and pt should be receiving 15mg/kg (currently 88kg which would be a dose of 1320mg). Jacinta Tariq notified of this change and new order written and faxed to [facility] and Jane faxed new order to [facility] as well. Reference number is [id number] and Jacinta Tariq's fax number is [phone]. Reference number written on fax cover sheet [...] * FLUTICASONE 50 MCG/ACTUATION * Use 1 [place] in each nostril o* ERGOCALCIFEROL (VITAMIN D2) [...] 3:52 PM Status: Signed Jacinta Tariq from [facility] prior auth called to verify pt's dose of Avastin. Pt's weight has changed and wanted to check what dose of Avastin pt should be getting. Jane checked with Dr Gross and pt should be receiving 15mg/kg (currently 88kg which would be a dose of 1320mg). Jacinta Tariq notified of this change and new order written and faxed to [facility] and Jane faxed new order to [facility] as well. Reference number is [id number] and Jacinta Tariq's fax number is [phone]. Reference number written on fax cover sheet per her request. Encounter Status:Closed by JOSHUA WOODS on 08/12/18 TYPE AND SCREEN Collected: 08/05/2018 Status: F Source: [place] 12:[address] [facility] REPOSITORY Order Comment: Reason for Type AND Screen/Red Cells: ANEMIA TYPE CODE TESTS RESULT OUT OF RANGE REFERENCE UNITS LAB B10.0800 O Normal BLOOD TYPE GEL NEGATIVE LAB B100.4000 Normal Antibody NEGATIVE Screen Performed By: #### B101.7450 #### [facility] [address] [place], [address] Collected: 08/05/2018 Status: F Source: [place] 12:[address] [facility] REPOSITORY TYPE CODE TESTS RESULT OUT OF REFERENCE UNITS RANGE LAB U100.0000 [id number] TRANSFUSED PRODUCT: T AND S with Crossmatch, Red Cells COUNT: 1 Performed By: #### U100.0000 #### [facility] - refer to report for specific site CBC W/DIFF, AUTOMATED Collected: 08/05/2018 Status: F Source: [place] 12:[address] [facility] REPOSITORY TYPE CODE TESTS RESULT [...] Lymph 0.97 Performed By: #### L100.0100 #### [facility] [address] [place], [address] COMPREHENSIVE METABOLIC Collected: 08/05/2018 Status: F Source: [facility] 12:[address] [facility] REPOSITORY TYPE CODE TESTS RESULT [...] GAP 8 Performed By: #### L500.4050 #### [facility] [address] [place], [place], [address] CBC W/DIFF, AUTOMATED Collected: 07/29/2018 Status: F Source: [place] 1:[address] [facility] REPOSITORY TYPE CODE TESTS RESULT [...] ANISO 2+ Performed By: #### L100.0100 #### [facility] [address] [place], [address] CBC W/DIFF, AUTOMATED Collected: 07/23/2018 Status: C Source: [place] 2:[address] [facility] REPOSITORY TYPE CODE TESTS RESULT [...] Iman gunderson Performed By: #### L100.0100 #### [facility] [address] [place], [address] COMPREHENSIVE METABOLIC Collected: 07/23/2018 Status: F Source: [facility] 2:[address] [facility] REPOSITORY TYPE CODE TESTS RESULT [...] GAP 7 Performed By: #### L500.4050 #### [facility] [address] [place], [id number] CANCER ANTIGEN 125 Collected: 07/23/2018 Status: F Source: [place] 2:[address] [facility] REPOSITORY TYPE CODE TESTS RESULT OUT OF RANGE REFERENCE UNITS LAB L3100.5000 0.0-38.1 U/mL High CA125 59.4 2303 Result Comment: [employer] ECLIA methodology Performed at: [facility] [address] [id number] Clinical Trial Head: Carlo Bass PhD, Phone: [phone] Performed By: #### L3100.5000 #### [facility] (refer to report for specific site) refer to report for address and phone number CNPN Observed: 07/23/2018 Status: COMPLETED Source: [place] 12:00 AM [facility] REPOSITORY Telephone (HEMAWS) IVA CUEVA ([id number]) 1955 F Date Time Provider Department 07/23/18 [...] dates. Please advise and call patient at [phone]. Omar Gross DO 07/23/2018 11:04 AM Signed [...] * FLUTICASONE 50 MCG/ACTUATION * Use 1 Cherokee in each nostril o* ERGOCALCIFEROL (VITAMIN D2) [...] 07/23/18 PROGRESS Observed: 07/04/2018 Status: COMPLETED Source: [place] 3:45 PM [facility] REPOSITORY [facility] ID: [id number] Author: Omar Gross Service: (none) Author Type: Physician Type: Progress Notes Filed: 07/04/2018 3:55 PM Note Text: Diagnosis: 1) Ovarian cancer. ? HPI: The patient is a 63 year old female who presented to her PCP prior to a trip to [facility] for vaccinations. She reported that she was [...] Taxol x 6 cycles, completed 05/27/13. 6) Catawba/carbo/cassandra x cycles for biopsy proven metastatic disease [...] No jaundice or rash. No petechiae. 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 No focal motor weakness. ? ASSESSMENT/PLAN: (C56.1, C56.2) Cancer of both ovaries (HCC) (primary encounter diagnosis) (C78.7) Liver metastases (HCC) KPS is 90%. Biopsy-proven recurrence. [place] refractory? -She is tolerating topotecan well thus [...] DO CNOVSP Observed: 07/04/2018 Status: COMPLETED Source: [place] 11:00 AM [facility] REPOSITORY Visit (SP) Office (PRISCILLA) IVA CUEVA ([id number]) 1955 F Date Time Provider Department 07/04/18 [...] her PCP prior to a trip to [facility] for vaccinations. She reported that she was [...] Taxol x 6 cycles, completed 05/27/13. 6) Catawba/carbo/cassandra x cycles for biopsy proven metastatic disease [...] No jaundice or rash. No petechiae. 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 No focal motor weakness. ? ASSESSMENT/PLAN: (C56.1, C56.2) Cancer of both ovaries (HCC) (primary encounter diagnosis) (C78.7) Liver metastases (HCC) KPS is 90%. Biopsy-proven recurrence. [place] refractory? -She is tolerating topotecan well thus [...] Omar Gross DO Referring Provider: OMAR GROSS [[id number]] Allergies As of Date: 07/04/2018 Noted Allergy [...] * FLUTICASONE 50 MCG/ACTUATION * Use 1 Cherokee in each nostril o* ERGOCALCIFEROL (VITAMIN D2) [...] COMPREHENSIVE METABOLIC Collected: 07/03/2018 Status: F Source: [place] 11:[address] [facility] REPOSITORY TYPE CODE TESTS RESULT [...] GAP 10 Performed By: #### L500.4050 #### [facility] [address] [place], [address] CBC W/DIFF, AUTOMATED Collected: 07/03/2018 Status: C Source: [place] 11:[address] [facility] REPOSITORY TYPE CODE TESTS RESULT [...] February jalyn Performed By: #### L100.0100 #### [facility] [address] [place], [address] CANCER ANTIGEN 125 Collected: 07/03/2018 Status: F Source: [place] 11:[address] [facility] REPOSITORY TYPE CODE TESTS RESULT OUT OF RANGE REFERENCE UNITS LAB L3100.5000 0.0-38.1 U/mL High CA125 72.9 2303 Result Comment: Meghna ECLIA methodology Performed at: - [facility] [id number] Clinical Trial Head: Carlo Bass PhD, Phone: [phone] Performed By: #### L3100.5000 #### [facility] (refer to report for specific site) refer to report for address and phone number CBC W/DIFF, AUTOMATED Collected: 06/26/2018 Status: F Source: [place] 10:[address] [facility] REPOSITORY TYPE CODE TESTS RESULT [...] Lymph 1.44 Performed By: #### L100.0100 #### [facility] [place], [address] CNPN Observed: 06/18/2018 Status: COMPLETED Source: [place] 12:00 AM [facility] REPOSITORY Telephone (HEMAWS) IVA CUEVA ([id number]) 1955 F Date Time Provider Department 06/18/18 OMAR GROSS During your visit today, we recorded the following information about you: Bettina Orona Pss 06/18/2018 2:15 PM Signed Maday from [facility] Infusion called in - states that pt is supposed to start Aloxi infusion (?) today - they need an order from Dr. Gross that has his signature on it. Please fax signed order to [phone]. Jane James LPN 06/18/2018 2:28 PM Signed Order received. Will have physician sign. Jane Orona Pss 06/18/2018 2:35 PM Signed Maday called back - order needs a diagnosis as well. Ania Reed LPN, MARTELL 06/18/2018 2:51 PM Signed Orders faxed with dx code and signature MARTELL Grimaldo PSEvan 06/19/2018 3:28 PM Signed Maday called back and stated that she did not receive most recent fax with DX code and signature. Please resend to [phone] Thank you Hari Avilez PSR Jane James LPN 06/19/2018 4:39 PM Signed Spoke with Lilly at [facility] infusion suite. She will call back [...] * FLUTICASONE 50 MCG/ACTUATION * Use 1 Cherokee in each nostril o* ERGOCALCIFEROL (VITAMIN D2) [...] 06/18/18 PROGRESS Observed: 06/13/2018 Status: COMPLETED Source: [place] 3:14 PM [facility] REPOSITORY HNO ID: [id number] Author: Omar Gross Service: (none) Author Type: Physician Type: Progress Notes Filed: 06/14/2018 9:51 AM Note Text: Diagnosis: 1) Ovarian cancer. ? HPI: The patient is a 63 year old female who presented to her PCP prior to a trip to [facility] for vaccinations. She reported that she was [...] Taxol x 6 cycles, completed 05/27/13. 6) Catawba/carbo/cassandra x cycles for biopsy proven metastatic disease [...] changes. She's undergone several injections by her manager pathology they have not helped. This is her [...] No jaundice or rash. No petechiae. 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 No focal motor weakness. ? ASSESSMENT/PLAN: (C56.1, C56.2) Cancer of both ovaries (HCC) (primary encounter diagnosis) (C78.7) Liver metastases (HCC) KPS is 90%. Biopsy-proven recurrence. [place] refractory? -She is tolerating topotecan well thus [...] DO CNOVSP Observed: 06/13/2018 Status: COMPLETED Source: [place] 3:00 PM [facility] REPOSITORY Visit (SP) Office (PRISCILLA) IVA CUEVA ([id number]) 1955 F Date Time Provider Department 06/13/18 3:00 PM OMAR GROSS During your visit today, we recorded the following information about you: Temperature Pulse Blood pressure Weight 97.5 degrees 94/minute 137/75 86.9 kg Jane James LPN 06/13/2018 3:24 PM Signed Est patient. Discuss recent labs @[facility], next round of treatment. Jane Gross DO 06/14/2018 9:51 AM Signed Diagnosis: 1) Ovarian cancer. ? HPI: The patient is a 63 year old female who presented to her PCP prior to a trip to [facility] for vaccinations. She reported that she was [...] Taxol x 6 cycles, completed 05/27/13. 6) Catawba/carbo/cassandra x cycles for biopsy proven metastatic disease [...] changes. She's undergone several injections by her manager pathology they have not helped. This is her [...] No jaundice or rash. No petechiae. 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 No focal motor weakness. ? ASSESSMENT/PLAN: (C56.1, C56.2) Cancer of both ovaries (HCC) (primary encounter diagnosis) (C78.7) Liver metastases (HCC) KPS is 90%. Biopsy-proven recurrence. [place] refractory? -She is tolerating topotecan well thus [...] Omar Gross DO Referring Provider: OMAR GROSS [[id number]] Allergies As of Date: 06/13/2018 Noted Allergy [...] * FLUTICASONE 50 MCG/ACTUATION * Use 1 Cherokee in each nostril o* ERGOCALCIFEROL (VITAMIN D2) 5* Take 2 capsules a week for 8 * MULTIVITAMIN TABLET Take 1 tablet by mouth once d* Medication notes this encounter GABAPENTIN 300 MG CAPSULE >> Jane James LPN 06/13/2018 3:07 PM >> JANE JAMES LPN Jun 13, 2018 3:07 PM Taking 2 [...] FOR* Visit Notes: >> Jane James LPN [facility] Jun 13, 2018 3:09 PM Status: Signed Est patient. Discuss recent labs @[facility], next round of treatment. Jane James LPN Encounter Status:Closed by OMAR GROSS DO on 06/14/18 CANCER ANTIGEN 125 Collected: 06/10/2018 Status: F Source: [place] 12:[address] [facility] REPOSITORY TYPE CODE TESTS RESULT OUT OF RANGE REFERENCE UNITS LAB L3100.5000 0.0-38.1 U/mL High CA125 62.5 2303 Result Comment: Meghna ECLIA methodology Performed at: - [facility] [id number] Clinical Trial Head: Carlo Bass PhD, Phone: [phone] Performed By: #### L3100.5000 #### [facility] (refer to report for specific site) refer to report for address and phone number CBC W/DIFF, AUTOMATED Collected: 06/10/2018 Status: F Source: [place] 12:[address] [facility] REPOSITORY TYPE CODE TESTS RESULT [...] Lymph 1.43 Performed By: #### L100.0100 #### [facility] [address] [facility]. [place], [place], [address] COMPREHENSIVE METABOLIC Collected: 06/10/2018 Status: F Source: [facility] 12:[address] [facility] REPOSITORY TYPE CODE TESTS RESULT [...] GAP 11 Performed By: #### L500.4050 #### [facility] [address] [facility] [place], [place], [address] CBC W/DIFF, AUTOMATED Collected: 05/18/2018 Status: F Source: [place] 12:[address] [facility] REPOSITORY TYPE CODE TESTS RESULT [...] Lymph 1.60 Performed By: #### L100.0100 #### [facility] [address] [place], [address] COMPREHENSIVE METABOLIC Collected: 05/18/2018 Status: F Source: [facility] 12:[address] [facility] REPOSITORY TYPE CODE TESTS RESULT [...] GAP 4 Performed By: #### L500.4050 #### [facility] [address] [place], [place] [address]all [facility] [place], [address] CT ABD/PEL W IVCON Observed: 04/29/2018 Status: F Source: [place] 2:46 PM [facility] REPOSITORY * * *Final Report* * * DATE OF EXAM: Apr 29 2018 2:46PM [facility] 0530 - CT ABD/PEL W IVCON [...] new adenopathy is seen. 3. Fatty liver Health Care Aide: AVA Transcribe Date/Time: Apr 30 2018 4:02P Dictated by : ANTHONY DIAZ DO This examination was interpreted and the report reviewed and electronically signed by: ANTHONY DIAZ DO on Apr 30 2018 4:35PM EST [id number] Observed: 04/29/2018 Status: COMPLETED Source: [place] 2:34 PM [facility] REPOSITORY O ID: [id number] Author: Ofelia Landeros [address] Service: (none) Author [...] Landeros Ct April 29, 2018 2:34 PM [place] ISTAT BMP Collected: 04/29/2018 Status: F Source: [place] 2:00 PM [facility] REPOSITORY TYPE CODE TESTS RESULT [...] eGFR may not accurately reflect actual GFR. [place] ABS GR + CBC Collected: 04/29/2018 Status: F Source: [place] 2:00 PM [facility] REPOSITORY TYPE CODE TESTS RESULT OUT OF REFERENCE UNITS RANGE LAB WWBC 3.70-11.00 k/uL [place] WBC 4.60 LAB WRBC 3.90-5.20 m/uL Low [place] RBC 3.30 LAB WHGB 11.5-15.5 g/dL Low [place] Hemoglobin 10.4 LAB WHCT 36.0-46.0 % [place] Hematocrit 32.4 LAB WMCV 80.0-100.0 fL [place] MCV 98.2 LAB WMCH 26.0-34.0 pg [place] MCH 31.5 LAB WMCHC 30.5-36.0 g/dL [place] MCHC 32.1 LAB WRDW 11.5-15.0 % [place] High RDW 16.8 LAB WPLT 150-400 k/uL [place] High Platelet Cnt 597 LAB WMPV 9.0-12.7 fL [place] MPV 9.9 Result Comment: Test performed at: [facility] [place], [address] [place] [address]. LAB ABGRAN 1.45-7.50 k/uL Absol Gran 2.53 Count [place] CREATININE Collected: 04/29/2018 Status: F Source: [place] 1:22 PM [facility] REPOSITORY TYPE CODE TESTS RESULT OUT OF REFERENCE UNITS RANGE LAB WCRET 0.7-1.4 mg/dL [place] Creatinine 0.9 CNPN Observed: 04/24/2018 Status: COMPLETED Source: [place] 12:00 AM [facility] REPOSITORY Telephone (HEMAWS) IVA CUEVA ([id number]) 1955 F Date Time Provider Department 04/24/18 OMAR GROSS During your visit today, we recorded the following information about you: Aruna Nielson 04/24/2018 11:47 AM Signed Elli from [facility] called asking for information about the patients ordered CT scan. The patient decided that he would like to have the CT at [facility] and the order needs to be sent over. Please call Elli back at [phone]. Jane James LPN 04/24/2018 11:50 AM Signed Patient is here. Since the CT scan has already been precerted for [facility] [place], patient has decided to have the test [...] since she's had all previous CTs at [facility], we'll need to get a CD of her most recent CTs from there sent her to get uploaded. DO Ashleigh Dominguez PSR 04/26/2018 9:05 AM Signed Left voicemail for patient to return call re: below and to arrange for documentation from [facility] results. Ashleigh Gandara PSR Daiana Aden PSR 04/26/2018 11:54 AM Signed Patient returned call and is aware of message below Jane James LPN 04/26/2018 12:21 PM Signed Disc requested from [facility]. Jane James LPN Allergies As of [...] * FLUTICASONE 50 MCG/ACTUATION * Use 1 Cherokee in each nostril o* ERGOCALCIFEROL (VITAMIN D2) [...] DOWNTIME REPORT Observed: 04/18/2018 Status: F Source: [place] 12:18 PM [facility] Medical Records Department [address] [place] [address] Downtime Report MR#: [id number] Acct: [id number] Name: IVA CUEVA Rep #: [id number] : 1955 63 From: Kamron Oh PCP: Peter Deras MD Status: REG CLI This patient was seen during an EMR downtime April 01, 2018 - April 08, 2018. This patient may have a combination of paper and electronic documentation or all paper documentation. All documentation is viewable within the e-chart portion of [employer] for each patient visit. DOWNTIME REPORT Observed: 04/18/2018 Status: F Source: [place] 12:18 PM [facility] Medical Records Department [address] [place] [address] Downtime Report MR#: [id number] Acct: [id number] Name: IVA CUEVA Jhonathan Rep #: [id number] : 1955 63 From: Kamron Oh PCP: Peter Deras MD Status: REG CLI This patient was seen during an EMR downtime April 01, 2018 - April 08, 2018. This patient may have a combination of paper and electronic documentation or all paper documentation. All documentation is viewable within the e-chart portion of [employer] for each patient visit. DOWNTIME REPORT Observed: 04/18/2018 Status: F Source: [place] 12:17 PM [facility] Medical Records Department [address] [place] [address] Downtime Report MR#: [id number] Acct: [id number] Name: IVA CUEVA Jhonathan Rep #: [id number] : 1955 63 From: Kamron Oh PCP: Peter Deras MD Status: REG CLI This patient was seen during an EMR downtime April 01, 2018 - April 08, 2018. This patient may have a combination of paper and electronic documentation or all paper documentation. All documentation is viewable within the e-chart portion of [employer] for each patient visit. DOWNTIME REPORT Observed: 04/18/2018 Status: F Source: [place] 12:[address] [facility] REPOSITORY [place] Medical Records Department [address] [place] [address] Downtime Report MR#: [id number] Acct: [id number] Name: IVA CUEVA Rep #: [id number] : 1955 63 From: Kamron Oh PCP: Peter Deras MD Status: REG CLI This patient was seen during an EMR downtime April 01, 2018 - April 08, 2018. This patient may have a combination of paper and electronic documentation or all paper documentation. All documentation is viewable within the e-chart portion of [employer] for each patient visit. DOWNTIME REPORT Observed: 04/18/2018 Status: F Source: [place] 12:[address] [facility] REPOSITORY [place] Medical Records Department [address] [place] [address] Downtime Report MR#: [id number] Acct: [id number] Name: IVA CUEVA Rep #: [id number] : 1955 63 From: Kamron Oh PCP: Peter Deras MD Status: DEP CLI This patient was seen during an EMR downtime April 01, 2018 - April 08, 2018. This patient may have a combination of paper and electronic documentation or all paper documentation. All documentation is viewable within the e-chart portion of [employer] for each patient visit. PROGRESS Observed: 04/18/2018 Status: COMPLETED Source: [place] 12:03 PM [facility] REPOSITORY HNO ID: [id number] Author: Terrance Renee Service: (none) Author Type: Physician Type: Progress Notes Filed: 04/19/2018 8:10 AM Note Text: Diagnosis: 1) Ovarian cancer. ? HPI: The patient is a 63 year old female who presented to her PCP prior to a trip to [facility] for vaccinations. She reported that she was [...] Taxol x 6 cycles, completed 05/27/13. 6) Catawba/carbo/cassandra x cycles for biopsy proven metastatic disease [...] will be going on a cruise to [place] the second week of April. She saw [...] No jaundice or rash. No petechiae. 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 No focal motor weakness. ? LABS: review by me and the patient today. ASSESSMENT/PLAN: (C56.1, C56.2) Cancer of both ovaries (HCC) (primary encounter diagnosis) (C78.7) Liver metastases (HCC) KPS is 90%. Biopsy-proven recurrence. [place] refractory.? -She is tolerating topotecan well thus [...] Jo CNOVSP Observed: 04/18/2018 Status: COMPLETED Source: [place] 11:30 AM [facility] REPOSITORY Visit (SP) Office (PRISCILLA) IVA CUEVA ([id number]) 1955 F Date Time Provider Department 04/18/18 11:30 AM TERRANCE RENEE During your visit today, we recorded the following information about you: Temperature Pulse Blood pressure Weight 97.5 degrees 79/minute 177/80 86.6 kg Jane James LPN 04/18/2018 11:50 AM Signed Est patient. Labs at [facility]. Jane Renee MD 04/19/2018 8:10 AM Signed Diagnosis: 1) Ovarian cancer. ? HPI: The patient is a 63 year old female who presented to her PCP prior to a trip to [facility] for vaccinations. She reported that she was [...] Taxol x 6 cycles, completed 05/27/13. 6) Catawba/carbo/cassandra x cycles for biopsy proven metastatic disease [...] will be going on a cruise to [place] the second week of April. She saw [...] No jaundice or rash. No petechiae. 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 No focal motor weakness. ? LABS: review by me and the patient today. ASSESSMENT/PLAN: (C56.1, C56.2) Cancer of both ovaries (HCC) (primary encounter diagnosis) (C78.7) Liver metastases (HCC) KPS is 90%. Biopsy-proven recurrence. [place] refractory.? -She is tolerating topotecan well thus [...] Dr. Peter Jo Referring Provider: OMAR GROSS [[id number]] Allergies As of Date: 04/18/2018 Noted Allergy [...] of Service: EST PATIENT VISIT LEVEL 4 [[id number]] Disposition: Return in about 1 week (around [...] * FLUTICASONE 50 MCG/ACTUATION * Use 1 Cherokee in each nostril o* ERGOCALCIFEROL (VITAMIN D2) [...] FOR* Visit Notes: >> Jane James LPN [facility] Apr 18, 2018 11:36 AM Status: Signed Est patient. Labs at [facility]. Jane James LPN Encounter Status:Closed by TERRANCE RENEE MD on 04/19/18 CNCO Observed: 04/18/2018 Status: COMPLETED Source: [place] 12:00 AM [facility] REPOSITORY Letter Text [id number] [address] Catie Jo M.D. supervisor rides Section of Gynecologic Oncology Advanced Practice Nurse Psychotherapist and Women's Health [place] Office: [phone] [email or web address] April 18, 2018 RE: Iva Cueva [...] MD CNPN Observed: 04/18/2018 Status: COMPLETED Source: [place] 12:00 AM [facility] REPOSITORY Telephone (PRISCILLA) IVA CUEVA ([id number]) 1955 F Date Time Provider Department 04/18/18 [...] patient has CT and Labs done at [facility]. Hari Avilez PSR 04/18/2018 2:24 PM Signed Patient called back [...] week. Her CT scan is scheduled at [facility] for 04/26/18 Mar Gross DO 04/20/2018 10:10 AM Signed We'll schedule follow up based on upcoming CT results. DO Lora Dominguez 04/22/2018 10:37 AM Signed Spoke with patient and informed her our office will be contacting her after CT @ [facility] on 04/26. Allergies As of Date: [...] * FLUTICASONE 50 MCG/ACTUATION * Use 1 [place] in each nostril o* ERGOCALCIFEROL (VITAMIN D2) [...] W/DIFF, AUTOMATED Collected: 04/16/2018 Status: C Source: [place] 10:[address] [facility] REPOSITORY Order Comment: CRITICAL VALUE VERIFIED. CALLED TO LORIE AT [facility] 04/16/18 Ran7 Tiki Tran. RESULTS READ [...] 0950 PATH REV previously reported as: Iman jalyn Performed By: #### L100.0100 #### [facility] [address] [place], [address] COMPREHENSIVE METABOLIC Collected: 04/16/2018 Status: F Source: [place] [facility] 10:[address] [facility] REPOSITORY TYPE CODE TESTS RESULT [...] GAP 7 Performed By: #### L500.4050 #### [facility] [place] [place], [address] CANCER ANTIGEN 125 Collected: 04/16/2018 Status: F Source: [place] 10:[address] [facility] REPOSITORY TYPE CODE TESTS RESULT OUT OF RANGE REFERENCE UNITS LAB L3100.5000 0.0-38.1 U/mL High CA125 48.1 2303 Result Comment: [employer] ECLIA methodology Performed at: [place] [facility] [address] [id number] Clinical Trial Head: Carlo Bass PhD, Phone: [phone] Performed By: #### L3100.5000 #### [facility] (refer to report for specific site) refer to report for address and phone number CNOVSP Observed: 04/12/2018 Status: COMPLETED Source: [place] 3:00 PM [facility] REPOSITORY Visit (SP) Office (REY) IVA CUEVA ([id number]) 1955 F Date Time Provider Department 04/12/18 [...] 7 CA 125 (U/mL) - done at [facility] Date Value 01/30/2018 25 08/06/2017 102.9 [...] She is alert, oriented, pleasant and cooperative. Aluminum Siding Applicator for exam: n/a ASSESSMENT: 1. 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 PLAN: CA125 increasing again If rises after this cycle consider CT scans sooner than planned. If progressing, we reviewed options and definitions. We discussed that she is, by definition, tribal resistant with a 6 month cut-off. However, she had a CR to carboplatin/ Taxol and was right at 6 months for recurrence Given this I would favor another try with carboplatin/ Taxol and consider maintenance therapy with a PARP inhibitor (Olapaprib or Nirapirib), in pts who respond to tribal-based therapy. We discussed differences in PFS based on gene status, but could benefit even if not HRD positive. Consider repeat CT guided biopsy for tissue confirmation and can send some of the biopsy for [facility] or [facility] testing. Would make sure [...] note were sent to: Marcy Bruno MD [address] [place] [address] CC: DO Peter Salazar MD (PCP) Referring Provider: CATIE JO [[id number]] Allergies As of Date: 04/12/2018 Noted Allergy [...] * FLUTICASONE 50 MCG/ACTUATION * Use 1 [place] in each nostril o* ERGOCALCIFEROL (VITAMIN D2) [...] 04/12/18 PROGRESS Observed: 04/08/2018 Status: COMPLETED Source: [place] 12:25 AM [facility] REPOSITORY O ID: [id number] Author: Catie Jo Service: (none) Author Type: [...] 7 CA 125 (U/mL) - done at [facility] Date Value 01/30/2018 25 08/06/2017 102.9 [...] She is alert, oriented, pleasant and cooperative. Aluminum Siding Applicator for exam: n/a ASSESSMENT: 1. 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 PLAN: CA125 increasing again If rises after this cycle consider CT scans sooner than planned. If progressing, we reviewed options and definitions. We discussed that she is, by definition, tribal resistant with a 6 month cut- off. However, she had a CR to carboplatin/ Taxol and was right at 6 months for recurrence Given this I would favor another try with carboplatin/ Taxol and consider maintenance therapy with a PARP inhibitor (Olapaprib or Nirapirib), in pts who respond to tribal-based therapy. We discussed differences in PFS based on gene status, but could benefit even if not HRD positive. Consider repeat CT guided biopsy for tissue confirmation and can send some of the biopsy for [employer] or [employer] [facility] testing. Would make sure that testing [...] note were sent to: Marcy Bruno MD [address] [place] [address] CC: DO Peter Salazar MD (PCP) CNOVSP Observed: 03/29/2018 Status: COMPLETED Source: [place] 10:40 AM [facility] REPOSITORY Visit (SP) Office (HEMAWS) IVA CUEVA ([id number]) 1955 F Date Time Provider Department 03/29/18 [...] her PCP prior to a trip to [facility] for vaccinations. She reported that she was [...] Taxol x 6 cycles, completed 05/27/13. 6) Catawba/carbo/cassandra x cycles for biopsy proven metastatic disease [...] No jaundice or rash. No petechiae. 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 No focal motor weakness. ASSESSMENT/PLAN: (C56.1, C56.2) Cancer of both ovaries (HCC) (primary encounter diagnosis) (C78.7) Liver metastases (HCC) KPS is 90%. Biopsy-proven recurrence. [place] refractory. -She is tolerating topotecan well thus [...] Omar Gross DO Referring Provider: OMAR GROSS [[id number]] Allergies As of Date: 03/29/2018 Noted Allergy [...] * FLUTICASONE 50 MCG/ACTUATION * Use 1 Cherokee in each nostril o* ERGOCALCIFEROL (VITAMIN D2) [...] 03/29/18 PROGRESS Observed: 03/29/2018 Status: COMPLETED Source: [place] 9:00 AM [facility] REPOSITORY O ID: [id number] Author: Omar Gross Service: (none) Author Type: Physician Type: Progress Notes Filed: 03/29/2018 12:11 PM Note Text: Diagnosis: 1) Ovarian cancer. HPI: The patient is a 63 year old female who presented to her PCP prior to a trip to [facility] for vaccinations. She reported that she was [...] Taxol x 6 cycles, completed 05/27/13. 6) Catawba/carbo/cassandra x cycles for biopsy proven metastatic disease [...] No jaundice or rash. No petechiae. 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 No focal motor weakness. ASSESSMENT/PLAN: (C56.1, C56.2) Cancer of both ovaries (HCC) (primary encounter diagnosis) (C78.7) Liver metastases (HCC) KPS is 90%. Biopsy-proven recurrence. [place] refractory. -She is tolerating topotecan well thus [...] W/DIFF, AUTOMATED Collected: 03/27/2018 Status: F Source: [place] 1:[address] [facility] REPOSITORY TYPE CODE TESTS RESULT [...] Lymph 1.50 Performed By: #### L100.0100 #### [facility] [address] [place], [place], [address] COMPREHENSIVE METABOLIC Collected: 03/27/2018 Status: F Source: [facility] 1:[address] [facility] REPOSITORY TYPE CODE TESTS RESULT [...] GAP 10 Performed By: #### L500.4050 #### [facility] [place], [address] CANCER ANTIGEN 125 Collected: 03/27/2018 Status: F Source: [place] 1:[address] [facility] REPOSITORY TYPE CODE TESTS RESULT OUT OF RANGE REFERENCE UNITS LAB L3100.5000 0.0-38.1 U/mL High CA125 49.6 2303 Result Comment: [employer] ECLIA methodology Performed at: - [facility] [address] [id number] Clinical Trial Head: Carlo Bass PhD, Phone: [phone] Performed By: #### L3100.5000 #### [facility] (refer to report for specific site) refer to report for address and phone number CBC-COMPLETE BLOOD CNT Collected: 03/04/2018 Status: F Source: [place]FF 1:[address] [facility] REPOSITORY TYPE CODE TESTS RESULT [...] MPV 8.9 Performed By: #### L100.0500 #### [facility] [address] [place], [address] PROGRESS Observed: 02/27/2018 Status: COMPLETED Source: [place] 11:33 AM [facility] REPOSITORY HNO ID: [id number] Author: Omar Gross Service: (none) Author Type: Physician Type: Progress Notes Filed: 02/27/2018 12:24 PM Note Text: Diagnosis: 1) Ovarian cancer. HPI: The patient is a 63 year old female who presented to her PCP prior to a trip to [facility] for vaccinations. She reported that she was [...] Taxol x 6 cycles, completed 05/27/13. 6) Catawba/carbo/cassandra x cycles for biopsy proven metastatic disease [...] No jaundice or rash. No petechiae. 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 No focal motor weakness. ASSESSMENT/PLAN: 1) Ovarian cancer. KPS is 90%. Biopsy-proven recurrence. [place] refractory. -She is tolerating topotecan well thus [...] DO CNOVSP Observed: 02/27/2018 Status: COMPLETED Source: [place] 11:30 AM [facility] REPOSITORY Visit (SP) Office (PRISCILLA) IVA CUEVA ([id number]) 1955 F Date Time Provider Department 02/27/18 11:30 AM OMAR GROSS During your visit today, we recorded the following information about you: Temperature Pulse Blood pressure Weight 98 degrees 89/minute 127/70 88.5 kg Omar Gross DO 02/27/2018 12:24 PM Signed Diagnosis: 1) Ovarian cancer. HPI: The patient is a 63 year old female who presented to her PCP prior to a trip to [facility] for vaccinations. She reported that she was [...] Taxol x 6 cycles, completed 05/27/13. 6) Catawba/carbo/cassandra x cycles for biopsy proven metastatic disease [...] No jaundice or rash. No petechiae. 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 No focal motor weakness. ASSESSMENT/PLAN: 1) Ovarian cancer. KPS is 90%. Biopsy-proven recurrence. [place] refractory. -She is tolerating topotecan well thus [...] Ania Reed LPN Referring Provider: OMAR GROSS [[id number]] Allergies As of Date: 02/27/2018 Noted Allergy Reaction CODEINE 05/03/2007 5 - Intolerance PERCOCET (OXYCODONE-ACETAMINOPHEN)06/29/2015 9 - Itching Seasonal [Other] 06/05/2007 ULTRAM (TRAMADOL HCL) 01/08/2013 9 - Itching VICODIN (HYDROCODONE-ACETAMINOPHE*08/26/2007 9 - Itching Date Reviewed: 02/27/2018 Reviewed by: Ania Bishop) MARTELL Reed - [...] * FLUTICASONE 50 MCG/ACTUATION * Use 1 Cherokee in each nostril o* ERGOCALCIFEROL (VITAMIN D2) [...] C56.2] INVALID FOR* Visit Notes: >> Ania Christina ([employer] Business Analyst) MARTELL Reed SunFebruary 27, 2018 11:49 AM Status: Signed Est pt. Discuss recent labs, tx tomorrow Ania Christina Reed LPN Encounter Status:Closed by OMAR GROSS DO on 02/27/18 CBC W/DIFF, AUTOMATED Collected: 02/27/2018 Status: F Source: [place] 9:[address] [facility] REPOSITORY TYPE CODE TESTS RESULT [...] Lymph 1.43 Performed By: #### L100.0100 #### [facility] [address] [place], [address] COMPREHENSIVE METABOLIC Collected: 02/27/2018 Status: F [facility] [facility] REPOSITORY TYPE CODE TESTS RESULT [...] GAP 7 Performed By: #### L500.4050 #### [facility] [address] [place], [place], [address] CANCER ANTIGEN 125 Collected: 02/27/2018 Status: F Source: [place] 9:[address] [facility] REPOSITORY TYPE CODE TESTS RESULT OUT OF RANGE REFERENCE UNITS LAB L3100.5000 0.0-38.1 U/mL Normal CA125 27.9 2303 Result Comment: [employer] ECLIA methodology Performed at: [facility] [id number] Clinical Trial Head: Carlo Bass PhD, Phone: [phone] Performed By: #### L3100.5000 #### [facility] (refer to report for specific site) refer to report for address and phone number TYPE AND SCREEN Collected: 02/12/2018 Status: F Source: [place] 12:[address] [facility] REPOSITORY Order Comment: CMV NEG?* N Give When? [id number] Irradiated? N Leukodepleted? Y Reason for Type AND Screen/Red Cells: ANEMIA TYPE CODE TESTS RESULT OUT OF RANGE REFERENCE UNITS LAB B10.0800 O Normal BLOOD TYPE GEL NEGATIVE LAB B100.4000 Normal Antibody NEGATIVE Screen Performed By: #### B101.7450 #### [facility] [address] [place], [place], [address] RC Collected: 02/12/2018 Status: F Source: [place] 12:[address] [facility] REPOSITORY TYPE CODE TESTS RESULT OUT OF REFERENCE UNITS RANGE LAB U100.0000 [id number] TRANSFUSED PRODUCT: T AND S with Crossmatch, Red Cells COUNT: 2 Performed By: #### U100.0000 #### [facility] - refer to report for specific site CBC W/DIFF, AUTOMATED Collected: 02/11/2018 Status: C Source: [place] 11:[address] [facility] REPOSITORY TYPE CODE TESTS RESULT [...] as: February Performed By: #### L100.0100 #### [facility] [place], [address] CBC-COMPLETE BLOOD CNT Collected: 02/04/2018 Status: F Source: [place] 1:[address] [facility] REPOSITORY TYPE CODE TESTS RESULT [...] MPV 9.4 Performed By: #### L100.0500 #### [facility] [address] [place], [address] CBC W/DIFF, AUTOMATED Collected: 01/30/2018 Status: C Source: [place] 12:[address] [facility] REPOSITORY TYPE CODE TESTS RESULT [...] 01/31/18 1145 PATH REV previously reported as: Iamn gunderson Performed By: #### L100.0100 #### [facility] [address] [place], [address] COMPREHENSIVE METABOLIC Collected: 01/30/2018 Status: F Source: [facility] 12:[address] [facility] REPOSITORY TYPE CODE TESTS RESULT [...] GAP 7 Performed By: #### L500.4050 #### [facility] [address] [place], [place], [address] CANCER ANTIGEN 125 Collected: 01/30/2018 Status: F Source: [place] 12:[address] [facility] REPOSITORY TYPE CODE TESTS RESULT OUT OF RANGE REFERENCE UNITS LAB L3100.5000 0.0-38.1 U/mL Normal CA125 25.0 2303 Result Comment: [employer] ECLIA methodology Performed at: - [facility] [id number] Clinical Trial Head: Carlo Bass PhD, Phone: [phone] Performed By: #### L3100.5000 #### [facility] (refer to report for specific site) refer to report for address and phone number CBC W/DIFF, AUTOMATED Collected: 01/14/2018 Status: F Source: [place] 11:[address] [facility] REPOSITORY TYPE CODE TESTS RESULT [...] Lymph 1.47 Performed By: #### L100.0100 #### [facility] [address] [place] [address], [id number] PROGRESS Observed: 01/09/2018 Status: COMPLETED Source: [place] 4:02 PM [facility] REPOSITORY HNO ID: [id number] Author: Omar Gross Service: (none) Author Type: Physician Type: Progress Notes Filed: 01/11/2018 9:47 AM Note Text: Diagnosis: 1) Ovarian cancer. HPI: The patient is a 62 year old female who presented to her PCP prior to a trip to [facility] for vaccinations. She reported that she was [...] Taxol x 6 cycles, completed 05/27/13. 6) Catawba/carbo/cassandra x cycles for biopsy proven metastatic disease [...] No jaundice or rash. No petechiae. 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 No focal motor weakness. ASSESSMENT/PLAN: 1) Ovarian cancer. KPS is 90%. Biopsy-proven recurrence. [place] refractory. -She is tolerating topotecan well thus far. -CA125 trending down. -Symptomatic anemia requiring transfusion. Plan: -Cycle #4 topotecan on Sunday 01/14 pending CBC results that day. -Decrease Neupogen to 7 days post cycle. -CT C/A/P pending CA125 trend. -Continue olanzapine. -Somatic BRCA mutation analysis negative. Omar Gross DO CNOVSP Observed: 01/09/2018 Status: COMPLETED Source: [place] 4:00 PM [facility] REPOSITORY Visit (SP) Office (HEMAWS) IVA CUEVA ([id number]) 1955 F Date Time Provider Department 01/09/18 [...] her PCP prior to a trip to [facility] for vaccinations. She reported that she was [...] Taxol x 6 cycles, completed 05/27/13. 6) Catawba/carbo/cassandra x cycles for biopsy proven metastatic disease [...] No jaundice or rash. No petechiae. 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 No focal motor weakness. ASSESSMENT/PLAN: 1) Ovarian cancer. KPS is 90%. Biopsy-proven recurrence. [place] refractory. -She is tolerating topotecan well thus far. -CA125 trending down. -Symptomatic anemia requiring transfusion. Plan: -Cycle #4 topotecan on Sunday 01/14 pending CBC results that day. -Decrease Neupogen to 7 days post cycle. -CT C/A/P pending CA125 trend. -Continue olanzapine. -Somatic BRCA mutation analysis negative. Omar Gross DO Referring Provider: OMAR GROSS [[id number]] Allergies As of Date: 01/09/2018 Noted Allergy [...] * FLUTICASONE 50 MCG/ACTUATION * Use 1 Cherokee in each nostril o* ERGOCALCIFEROL (VITAMIN D2) [...] FOR* Visit Notes: >> Jane James MARTELL Wed Jan 09, 2018 3:59 PM Status: Signed Est patient. Discuss recent labs. Jane James MARTELL Encounter Status:Closed by OMAR GROSS DO on 01/11/18 CBC W/DIFF, AUTOMATED Collected: 01/09/2018 Status: C Source: [place] 10:[address] [facility] REPOSITORY TYPE CODE TESTS RESULT [...] Iman gunderson Performed By: #### L100.0100 #### [facility] [place], [place], [address] COMPREHENSIVE METABOLIC Collected: 01/09/2018 Status: F Source: [facility] 10:[address] [facility] REPOSITORY TYPE CODE TESTS RESULT [...] GAP 6 Performed By: #### L500.4050 #### [facility] [address] [place] [address], [id number] CANCER ANTIGEN 125 Collected: 01/09/2018 Status: F Source: [place] 10:[address] [facility] REPOSITORY TYPE CODE TESTS RESULT OUT OF RANGE REFERENCE UNITS LAB L3100.5000 0.0-38.1 U/mL Normal CA125 25.2 2303 Result Comment: Meghna ECLIA methodology Performed at: - [facility] [address] [id number] Clinical Trial Head: Carlo Bass PhD, Phone: [phone] Performed By: #### L3100.5000 #### [facility] (refer to report for specific site) refer to report for address and phone number TYPE AND SCREEN Collected: 01/02/2018 Status: F Source: [place] 4:[address] [facility] REPOSITORY Order Comment: CMV NEG?* N Give When? When Ready Irradiated? N Leukodepleted? Y Reason for Type AND Screen/Red Cells: ANEMIA TYPE CODE TESTS RESULT OUT OF RANGE REFERENCE UNITS LAB B10.0800 O Normal BLOOD TYPE GEL NEGATIVE LAB B100.4000 Normal Antibody NEGATIVE Screen Performed By: #### B101.7450 #### [facility] [address] [place], [place] [address], [place], [address] Collected: 01/02/2018 Status: F Source: 4:[address] [facility] REPOSITORY TYPE CODE TESTS RESULT OUT OF REFERENCE UNITS RANGE LAB U100.0000 [id number] TRANSFUSED PRODUCT: T AND S with Crossmatch, Red Cells COUNT: 2 Performed By: #### U100.0000 #### [facility] - refer to report for specific site CBC W/DIFF, AUTOMATED Collected: 01/02/2018 Status: F Source: 11:[address] [facility] REPOSITORY TYPE CODE TESTS RESULT [...] Normal RARE Performed By: #### L100.0100 #### [facility] [address] [place], [place], [address] CBC W/DIFF, AUTOMATED Collected: 12/24/2017 Status: C Source: [place] 1:[address] [facility] REPOSITORY TYPE CODE TESTS RESULT [...] February jalyn Performed By: #### L100.0100 #### [facility] [place], [address] CNOVSP Observed: 12/19/2017 Status: COMPLETED Source: [place] 11:50 AM [facility] REPOSITORY Visit (SP) Office (HEMAWS) IVA CUEVA ([id number]) 1955 F Date Time Provider Department 12/19/17 11:50 AM OMAR GROSS During your visit today, we recorded the following information about you: Temperature Pulse Blood pressure Weight 98 degrees 106/minute 131/83 87.1 kg Omar Gross DO 12/19/2017 12:39 PM Signed Diagnosis: 1) Ovarian cancer. HPI: The patient is a 62 year old female who presented to her PCP prior to a trip to [facility] for vaccinations. She reported that she was [...] Taxol x 6 cycles, completed 05/27/13. 6) Catawba/carbo/cassandra x cycles for biopsy proven metastatic disease [...] No jaundice or rash. No petechiae. 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 No focal motor weakness. ASSESSMENT/PLAN: 1) Ovarian cancer. KPS is 90%. Biopsy-proven recurrence. [place] refractory. -She is tolerating topotecan well thus [...] mutation analysis pending. DO Ania Dominguez LPN, MARTELL 12/19/2017 12:11 PM Signed Est pt. Discuss recent lab results Ania Reed LPN Referring Provider: OMAR GROSS [[id number]] Allergies As of Date: 12/19/2017 Noted Allergy [...] * FLUTICASONE 50 MCG/ACTUATION * Use 1 Cherokee in each nostril o* ERGOCALCIFEROL (VITAMIN D2) [...] 12/19/17 PROGRESS Observed: 12/19/2017 Status: COMPLETED Source: [place] 11:44 AM [facility] REPOSITORY O ID: [id number] Author: Omar Gross Service: (none) Author Type: Physician Type: Progress Notes Filed: 12/19/2017 12:39 PM Note Text: Diagnosis: 1) Ovarian cancer. HPI: The patient is a 62 year old female who presented to her PCP prior to a trip to [facility] for vaccinations. She reported that she was [...] Taxol x 6 cycles, completed 05/27/13. 6) Catawba/carbo/cassandra x cycles for biopsy proven metastatic disease [...] No jaundice or rash. No petechiae. 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 No focal motor weakness. ASSESSMENT/PLAN: 1) Ovarian cancer. KPS is 90%. Biopsy-proven recurrence. [place] refractory. -She is tolerating topotecan well thus [...] NRBC PANEL Collected: 12/19/2017 Status: F Source: [place] 10:[address] [facility] REPOSITORY Order Comment: CRITICAL VALUE VERIFIED. CALLED TO MALLORY AT 'S OFFICE 12/19/17 1117 Tiki Tran. RESULTS READ BACK BY SAME . TYPE CODE TESTS RESULT OUT OF RANGE REFERENCE UNITS LAB L100.4450 0-5 % Normal NRBC, FLAGGED 0.3 LAB L100.4455 0-5 10 3/uL Normal NRBC # 0.21 Performed By: #### L100.4425, L100.0100 #### [facility] [address] [place], [place], [address] CBC W/DIFF, AUTOMATED Collected: 12/19/2017 Status: C Source: [place] 10:[address] [facility] REPOSITORY Order Comment: CRITICAL VALUE VERIFIED. CALLED [...] 12/20/17 1244 PATH REV previously reported as: Iman gunderson Performed By: #### L100.4425, L100.0100 #### [facility] [address] [place], [address] COMPREHENSIVE METABOLIC Collected: 12/19/2017 Status: F Source: [facility] 10:[address] [facility] REPOSITORY TYPE CODE TESTS RESULT [...] GAP 10 Performed By: #### L500.4050 #### [facility] [address] [place], [place], [address] CANCER ANTIGEN 125 Collected: 12/19/2017 Status: F Source: [place] 10:[address] [facility] REPOSITORY TYPE CODE TESTS RESULT OUT OF RANGE REFERENCE UNITS LAB L3100.5000 0.0-38.1 U/mL Normal CA125 34.6 2303 Result Comment: [employer] ECLIA methodology Performed at: - [facility] [id number] Clinical Trial Head: Carlo Bass PhD, Phone: [phone] Performed By: #### L3100.5000 #### [facility] (refer to report for specific site) refer to report for address and phone number CBC W/DIFF, AUTOMATED Collected: 12/13/2017 Status: F Source: [place] 11:[address] [facility] REPOSITORY TYPE CODE TESTS RESULT [...] HYPOCHROMASIA 1+ Performed By: #### L100.0100 #### [facility] [address] [place], [address] CTA CHEST W/WO Observed: 12/06/2017 Status: F Source: [place] CONTRAST 3:[address] [facility] REPOSITORY [place] [facility] [address] [place] [address] CTA Chest W/WO Contrast MR#: [id number] Acct: [id number] Name: IVA CUEVA Rep #: [id number] : 1955 F 62 From: Maura Ordaz MD PCP: Peter Deras MD Status: REG CLI Study: CTA Chest W/WO Contrast Date of Exam: 12/06/17 Exam# [id number] Ordering Dr: Omar Gross DO STUDY: CTA [...] CC: Peter Deras MD; Omar Gross DO Health Care Aide: Signed CBC-COMPLETE BLOOD CNT Collected: 12/06/2017 Status: F Source: [place] NO DIFF 1:[address] [facility] REPOSITORY TYPE CODE TESTS RESULT [...] MPV 9.6 Performed By: #### L100.0500 #### [facility] [address] [facility] [place], [address] [facility] SEND OUT TEST Collected: 12/05/2017 Status: F Source: [place] 8:04 PM [facility] REPOSITORY TYPE CODE TESTS RESULT OUT OF REFERENCE UNITS RANGE LAB NAME1 TUMOR Test BRACANALYSIS LAB RESU1 View results Test Results in Scanned Documents link when available. Performed By: #### [id number] #### [facility] [address] [place], [place] [address] CBC W/DIFF, AUTOMATED Collected: 12/03/2017 Status: C Source: [place] 12:[address] [facility] REPOSITORY TYPE CODE TESTS RESULT [...] Lymph 2.30 Performed By: #### L100.0100 #### [facility] [address] [place] [address]. [place], [address] PROGRESS Observed: 11/28/2017 Status: COMPLETED Source: [place] 5:41 PM [facility] REPOSITORY HNO ID: [id number] Author: Omar Gross Service: (none) Author Type: Physician Type: Progress Notes Filed: 11/28/2017 5:45 PM Note Text: Diagnosis: 1) Ovarian cancer. HPI: The patient is a 62 year old female who presented to her PCP prior to a trip to [facility] for vaccinations. She reported that she was [...] Taxol x 6 cycles, completed 05/27/13. 6) Catawba/carbo/cassandra x cycles for biopsy proven metastatic disease [...] No jaundice or rash. No petechiae. 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 No focal motor weakness. ASSESSMENT/PLAN: 1) Ovarian cancer. KPS is 90%. Biopsy-proven recurrence. [place] refractory. -She is tolerating topotecan well thus far. -Previous discussed rationale for testing biopsy specimen from 2014 for somatic BRCA mutation. [facility] didn't have enough tissue. Plan: -Cycle #2 topotecan on Sunday 12/03 pending CBC results that day. -Neupogen x10 days post cycle. -CT C/A/P prior to cycle #4 or sooner pending CA125 trend. -Continue olanzapine. -Somatic mutation of BRCA requested from past specimen in 2012 for [facility]. Omar Gross DO CNOVSP Observed: 11/28/2017 Status: COMPLETED Source: [place] 4:00 PM [facility] REPOSITORY Visit (SP) Office (PRISCILLA) IVA CUEVA ([id number]) 1955 F Date Time Provider Department 11/28/17 4:00 PM OMAR GROSS During your visit today, we recorded the following information about you: Temperature Pulse Blood pressure Weight 98 degrees 99/minute 122/66 87.3 kg Jane James LPN 11/28/2017 4:37 PM Signed Est patient. Labs today at [facility]. Jane Gross DO 11/28/2017 5:45 PM Signed Diagnosis: 1) Ovarian cancer. HPI: The patient is a 62 year old female who presented to her PCP prior to a trip to [facility] for vaccinations. She reported that she was [...] Taxol x 6 cycles, completed 05/27/13. 6) Catawba/carbo/cassandra x cycles for biopsy proven metastatic disease [...] No jaundice or rash. No petechiae. 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 No focal motor weakness. ASSESSMENT/PLAN: 1) Ovarian cancer. KPS is 90%. Biopsy-proven recurrence. [place] refractory. -She is tolerating topotecan well thus far. -Previous discussed rationale for testing biopsy specimen from 2014 for somatic BRCA mutation. [facility] didn't have enough tissue. Plan: -Cycle #2 topotecan on Sunday 12/03 pending CBC results that day. -Neupogen x10 days post cycle. -CT C/A/P prior to cycle #4 or sooner pending CA125 trend. -Continue olanzapine. -Somatic mutation of BRCA requested from past specimen in 2012 for [facility]. Omar Gross DO Referring Provider: OMAR GROSS [[id number]] Allergies As of Date: 11/28/2017 Noted Allergy [...] * FLUTICASONE 50 MCG/ACTUATION * Use 1 [place] in each nostril o* ERGOCALCIFEROL (VITAMIN D2) [...] FOR* Visit Notes: >> Jane James LPN Wed Nov 28, 2017 4:07 PM Status: Signed Est patient. Labs today at [facility]. Jane James LPN Encounter Status:Closed by OMAR GROSS DO on 11/28/17 CBC W/DIFF, AUTOMATED Collected: 11/28/2017 Status: C Source: [place] 10:[address] [facility] REPOSITORY TYPE CODE TESTS RESULT [...] February jalyn Performed By: #### L100.0100 #### [facility] [address] [place], [address] COMPREHENSIVE METABOLIC Collected: 11/28/2017 Status: F Source: [facility] 10:[address] [facility] REPOSITORY TYPE CODE TESTS RESULT [...] GAP 7 Performed By: #### L500.4050 #### [facility] [address] [place], [place], [address] CANCER ANTIGEN 125 Collected: 11/28/2017 Status: F Source: [place] 10:[address] [facility] REPOSITORY TYPE CODE TESTS RESULT OUT OF RANGE REFERENCE UNITS LAB L3100.5000 0.0-38.1 U/mL High CA125 92.1 2303 Result Comment: [employer] ECLIA methodology Performed at: [facility] [address] [id number] Clinical Trial Head: Carlo Bass PhD, Phone: [phone] Performed By: #### L3100.5000 #### [facility] (refer to report for specific site) refer to report for address and phone number OBSOLETE Observed: 11/26/2017 Status: COMPLETED Source: [place] 12:00 AM [facility] REPOSITORY Refill (HEMAWS) IVA CUEVA ([id number]) 1955 F Date Time Provider Department 11/26/17 [...] * FLUTICASONE 50 MCG/ACTUATION * Use 1 [place] in each nostril o* ERGOCALCIFEROL (VITAMIN D2) [...] REACTION SEVERITY SOURCE Drug hydrocodone Itching Unknown [place] 8 Allergy/386122583( bitartrate/F0000 Community SNOM[facility]) [address](RXNORM) Hospital Repository Drug tramadol Itching Unknown [place] 8 Allergy/512103031( HCl/S451331049(R [facility] SN[facility]) XNORM) Hospital Repository Drug codeine/A1170565 Itching Unknown [place] 8 Allergy/192050182( 50(RXNORM) [facility] SN[facility]) Hospital Repository Drug oxycodone/I92089 Itching Unknown [place] 8 Allergy/277888437( 1558(RXNORM) Community SNOM[facility]) Hospital Repository Drug acetaminophen/F0 Itching Unknown [place] 8 Allergy/923114256( 41956163(RXNORM) [facility] SN[facility]) Hospital Repository DRUG/773415079(SNO OXYCODONE-ACETAM ITCHING [place] [address]) INOPHEN Clinic Main [place] Repository DRUG TRAMADOL HCL ITCHING [place] 3 INGREDI/351762744( Clinic Main SNOMED CT) [place] Rep[place] DRUG/042290866(SNO HYDROCODONE-ACET ITCHING [place] [address]) AMINOPHEN Clinic Main [place] Repository Miscellaneous OTHER [place] 7 Allergy/210142041( [facility] Main SNOMED CT) [place] Repository DRUG CODEINE INTOLERANCE [place] 7 INGREDI/105754533( [facility] Main SNOMED CT) [place] Repository ENCOUNTERS ENCOUNTERS ADMIT/DISCHARGE ACCOUNT ADMITTING ENCOUNTER LOCATION SOURCE NUMBER CLASS 11/20/2018 [id number] [facility] ing:MEDOUTP Repository 11/19/2018 [id number] [facility] ing:MEDOUTP Repository 11/04/2018 [id number] GER[facility] Main [place] Repository 11/01/2018/11/01/19 [id number] Ambulatory [place] 19 [facility] Main [place] Repository 10/29/2018 [id number] [facility] ing:LAB Repository 10/28/2018/10/28/20 [id number] Ambulatory [place] 18 [facility] Main [place] Repository 10/28/2018/10/28/20 [id number] Ambulatory [address] Repository 10/28/2018 [id number] [facility] ing:MEDOUTP Repository 10/25/2018/10/25/[id number] ing:LAB Repository 10/24/2018/10/25/20 [id number] Ambulatory [address] Repository 10/11/2018 [id number] [facility] ing[facility]MEDOUTP Repository 10/10/2018 [id number] [facility] Repository 10/09/2018 [id number] [facility] Rep[facility] 10/08/2018 [id number] [facility] ing:[facility] Repository 10/07/2018 [id number] [facility] [place] [facility] ing:MED[facility]P Repository 09/26/2018 [id number] [facility] ing:OPUS Repository 09/17/2018/09/17/20 [id number] Ambulatory BMSBuilding:B [place] 18 [facility] Repository 09/13/2018 [id number] [facility] ing:MED[facility]P Repository 09/12/2018 [id number] [facility] ing:MED[facility]P Repository 09/11/2018 [id number] [facility] ing:MED[facility]P Repository 09/10/2018 [id number] [facility] ing:MED[facility]P Repository 09/09/2018 [id number] [facility] ing:MED[facility]P Repository 08/30/2018/09/02/20 [id number] Ambulatory [place] [place] Repository 08/26/2018/08/26/20 [id number] [place] HospitalBuild Hospital ing:LAB Repository 08/06/2018 [id number] [facility] ing:MED[facility]P Repository 08/02/2018 [id number] [facility] ing:MED[facility] Repository 08/01/2018 [id number] [facility] ing:MED[facility]P Repository 07/31/2018 [id number] [facility] ing:MED[facility]P Repository 07/30/2018 [id number] Ambulatory [place] [facility] Hospital ing:MEDOUTP Repository 07/29/2018 [id number] [facility] [place] [facility] ing:MED[facility]P Repository 07/23/2018/07/23/20 [id number] [place] [address] [place] [address] HospitalBuild Hospital ing:LAB Repository 07/12/2018 [id number] [facility] [place] [facility] ing:MED[facility]P Repository 07/11/2018 [id number] [facility] ing:MED[facility]P Repository 07/10/2018 [id number] [facility] [place] [facility] ing:MED[facility]P Repository 07/09/2018 [id number] [facility] [place] [facility] ing:MEDOUTP Repository 07/08/2018 [id number] [facility] ing:MED[facility]P Repository 07/04/2018/07/05/20 [id number] Ambulatory [address] Main [place] Repository 06/26/2018/06/26/20 [id number] Ambulatory [place] [address] [place] [address] HospitalBuild Hospital ing:LAB Repository 06/21/2018 [id number] [facility] [place] [facility] ing:MEDOUTP Repository 06/20/2018 [id number] [facility] ing:MED[facility]P Repository 06/19/2018 [id number] [facility] [place] [facility] ing:MED[facility]P Repository 06/18/2018 [id number] [facility]ulatory [place] [facility] Hospital ing:MEDOUTP Repository 06/17/2018 [id number] Ambulatory [place] [facility] HospitalBuild Hospital ing:MEDOUTP Repository 06/13/2018/06/14/20 [id number] Ambulatory [address] Main [place] Repository 05/24/2018 [id number] [facility] [place] [facility] ing:MED[facility]P Repository 05/23/2018 [id number] [facility] [place] [facility] ing:MED[facility]P Repository 05/22/2018 [id number] [facility] [place] [facility] ing:MED[facility]P Repository 05/21/2018 [id number] [facility] [place] [facility] ing:MED[facility]P Repository 05/20/2018 [id number] [facility] [place] [facility] ing:MEDOUTP Repository 05/18/2018/05/18/20 [id number] [place] HospitalBuild Hospital ing:LAB Repository 04/29/2018/04/29/20 [id number] Ambulatory [place] 18 [facility] Main [place] Repository 04/29/2018/04/29/20 [id number] Ambulatory [place] 18 [facility] Main [place] Repository 04/29/2018/05/03/20 [id number] Ambulatory [place] 18 [facility] Main [place] Repository 04/29/2018/04/29/20 [id number] Ambulatory [place] 18 [facility] Main [place] Repository 04/18/2018/04/22/20 [id number] Ambulatory [address] Main [place] Repository 04/16/2018/04/16/20 [id number] [place] [address] [place] [address] HospitalBuild Hospital ing:LAB Repository 04/12/2018/04/13/20 [id number] Ambulatory [address] Main [place] Repository 04/06/2018/04/06/20 [id number] [place] [address] [place] [address] HospitalBuild Hospital ing:MEDOUTP Repository 04/05/2018 [id number] [facility] ing:[facility] Repository 04/04/2018 [id number] [facility] [place] [facility] ing:MED[facility]P Repository 04/03/2018 [id number] [facility] ing:MED[facility]P Repository 04/02/2018 [id number] [facility] [place] [facility] ing:MEDOUTP Repository 03/29/2018/04/01/20 [id number] Ambulatory [address] Main [place] Repository 03/27/2018/03/27/20 [id number] Amb[place] [address] [place] [address] HospitalBuild Hospital ing:LAB Repository 03/08/2018 [id number] [facility] [place] [facility] ing:MED[facility]P Repository 03/07/2018 [id number] Ambulatory [place] [facility] HospitalBuild Hospital ing:MEDOUTP Repository 03/06/2018 [id number] [facility] ing:MED[facility]P Repository 03/05/2018 [id number] [facility] [facility] ing:MEDOUTP Repository 03/04/2018 [id number] [facility] ing:MED[facility]P Repository 02/27/2018/02/29/20 [id number] Ambulatory [address] Repository 02/13/2018 [id number] [facility] [place] [facility] ing:MEDOUTP Repository 02/11/2018/02/12/20 [id number] [place] HospitalBuild Hospital ing:LAB Repository 02/08/2018 [id number] [facility] ing:MED[facility]P Repository 02/07/2018 [id number] Ambulatory [place] [facility] HospitalBuild Hospital ing:MEDOUTP Repository 02/06/2018 [id number] [facility] ing:MED[facility]P Repository 02/05/2018 [id number] [facility] ing:MED[facility]P Repository 02/04/2018 [id number] [facility] ing:MED[facility]P Repository 01/18/2018 [id number] [facility] ing:MED[facility]P Repository 01/17/2018 [id number] [facility] [place] [facility] ing:MED[facility]P Repository 01/16/2018 [id number] [facility] ing:MED[facility]P Repository 01/15/2018 [id number] [facility] ing:MED[facility]P Repository 01/14/2018 [id number] [facility] [place] [facility] ing:MED[facility]P Repository 01/09/2018/01/12/20 [id number] Ambulatory [address] Repository 01/09/2018/01/10/20 [id number] Ambulatory [place] [address] [place] [address] HospitalBuild Hospital ing:LAB Repository 01/03/2018 [id number] [facility] ing:MED[facility]P Repository 12/28/2017 [id number] [facility] ing:MED[facility]P Repository 12/27/2017 [id number] [facility] ing:MED[facility]P Repository 12/26/2017 [id number] [facility] ing:MED[facility]P Repository 12/25/2017 [id number] [facility] ing:MEDOUTP Repository 12/24/2017 [id number] [facility] ing:MEDOUTP Repository 12/19/2017/12/19/19 [id number] Ambulatory [address] Repository 12/19/2017/12/19/19 [id number] [place] HospitalBuild Hospital ing:LAB Repository 12/07/2017 [id number] [facility] ing:MED[facility]P Repository 12/06/2017 [id number] [facility] ing:MEDOUTP Repository 12/05/2017 [id number] [facility] ing:MED[facility]P Repository 12/04/2017 [id number] [facility] ing:MED[facility]P Repository 12/03/2017 [id number] [facility] ing:MEDOUTP Repository 11/28/2017/11/29/19 [id number] Ambulatory [address] [place] Repository 11/28/2017/11/28/19 [id number] Ambulatory [place] [facility]Build Hospital ing:LAB Repository PAYERS PAYERS ENCOUNTER GUARANTOR PAYER SUBSCRIBER SOURCE 11/20/2018 IVA Cottrell Primary IVA L [place] [id number] DEER Insurance:MEDICAL MAIBACHDOB: [id number] [address]Lfh: Number: Repository [id number] (HP) Date:3903-91-15DZ [address] [address]LE: 11/20/2018 Secondary NOT GIVENUNK [place] Insurance:SELF PAY [facility] Number: Effective Repository Date:2018-11-13 11/19/2018 IVA Jhonathan Primary IVA L [place] [id number] [place] Insurance:MEDICAL MAIBACHDOB: [facility] [id number] Indian Medical Center [address]Pbw: Number: Repository [id number] (HP) Date:5451-45-44FK [place] [phone]: 11/19/2018 Secondary NOT GIVENUNK [place] Insurance:SELF PAY [facility] Number: Effective Repository Date:2018-11-13 10/29/2018 IVA L Primary IVA L [place] [id number] [place] Insurance:MEDICAL MAIBACHDOB: [facility] [id number] Indian Medical Center [address]Qof: Number: Repository [id number] (HP) Date:8176-46-08EN [place] [phone]: 10/29/2018 Secondary NOT GIVENUNK [place] Insurance:SELF PAY [facility] Number: Effective Repository Date:2018-10-28 10/28/2018 JOSÉ MIGUEL Markham Primary IVA L [place] [id number] [place] Insurance:MEDICAL MAIBACHDOB: [facility] [id number] Indian Medical Center [address]Grq: Number: Repository [id number] (HP) Date:7734-60-68YU [address] [address]EQ: 10/28/2018 Secondary NOT GIVENUNK [place] Insurance:SELF PAY [facility] Number: Effective Repository Date:2018-09-17 10/25/2018 JOSÉ MIGUEL [place] Primary IVA Goldbergoster [id number] [place] Insurance:MEDICAL MAIBACHDOB: [facility] [id number] Indian Medical Center [address]Mno: Number: Repository [id number] (HP) Date:5716-03-70EZ [place] [phone]: 10/25/2018 Secondary NOT GIVENUNK [place] Insurance:SELF PAY [facility] Number: Effective Repository Date:2018-08-29 10/11/2018 IVA Cottrell Primary IVA Jhonathan [place] [id number] [place] Insurance:MEDICAL MAIBADOB: [facility] [id number] Indian Medical Center [address]Mjj: Number: Repository [id number] (HP) Date:3320-81-49IQ [place] [phone]: 10/11/2018 Secondary NOT GIVENUNK [place] Insurance:SELF PAY [facility] Number: Effective Repository Date:2018-09-17 10/10/2018 IVA Jhonathan Primary IVA Jhonathan GoldbergCasa [id number] [place] Insurance:MEDICAL MAIBACHDOB: [facility] [id number] Indian Medical Center [address]Cmg: Number: Repository [id number] (HP) Date:9650-63-33LQ [place] [phone]: 10/10/2018 Secondary NOT GIVENUNK [place] Insurance:SELF PAY [facility] Number: Effective Repository Date:2018-09-17 10/09/2018 IVA Jhonathan Primary IVA Jhonathan GoldbergCasa [id number] [place] Insurance:MEDICAL MAIBACHDOB: [facility] [id number] [place] [address]Lad: Number: Repository [id number] (HP) Date:7325-44-67EY [address] [address]JL: 10/09/2018 Secondary NOT GIVENUNK [place] Insurance:SELF PAY [facility] Number: Effective Repository Date:2018-09-17 10/08/2018 IVA L Primary IVA L [place] [id number] [place] Insurance:MEDICAL NVIBACHDOB: [facility] [id number] Indian Medical Center [address]Pzp: Number: Repository [id number] (HP) Date:2286-85-95ZY [address] [address]VW: 10/08/2018 Secondary NOT GIVENUNK [place] Insurance:SELF PAY [facility] Number: Effective Repository Date:2018-09-17 10/07/2018 JOSÉ MIGUEL Markham Primary IVA L [place] [id number] [place] Insurance:MEDICAL MAIBACHDOB: [facility] [id number] Indian Medical Center [address]Ipk: Number: Repository [id number] (HP) Date:2345-12-21GW [place] [phone]: 10/07/2018 Secondary NOT GIVENUNK [place] Insurance:SELF PAY [facility] Number: Effective Repository Date:2018-09-17 09/26/2018 IVA L Primary IVA L [place] [id number] [place] Insurance:MEDICAL MAIBADOB: [facility] [id number] Indian Medical Center [address]Ogn: Number: Repository [id number] (HP) Date:1985-67-23DI [address] [address]VC: 09/26/2018 Secondary NOT GIVENUNK [place] Insurance:SELF PAY [facility] Number: Effective Repository Date:2018-09-18 09/17/2018 IVA L Primary IVA L [place] [id number] [place] Insurance:MEDICAL MAIBACHDOB: [facility] [id number] Indian Medical Center [address]Jix: Number: Repository [id number] (HP) Date:0685-77-95ER [place] [phone]: 09/17/2018 Secondary NOT GIV[place]K [place] Insurance:SELF PAY [facility] Number: Effective Repository Date:2018-09-17 09/13/2018 JOSÉ MIGUEL Markham Primary IVA [place] [id number] [place] Insurance:MEDICAL MAIBACHDOB: [facility] [id number] Indian Medical Center [address]Axd: Number: Repository [id number] (HP) Date:6330-83-42KL [place] [phone]: 09/13/2018 Secondary NOT [place]K [place] Insurance:SELF PAY [facility] Number: Effective Repository Date:2018-09-05 09/12/2018 JOSÉ MIGUEL Markham Primary IVA [place] [id number] [place] Insurance:MEDICAL MAIBACHDOB: [facility] [id number] Indian Medical Center [address]Jqg: Number: Repository [id number] (HP) Date:3113-66-95FA [place] [phone]: 09/12/2018 Secondary NOT G[place]K [place] Insurance:SELF PAY [facility] Number: Effective Repository Date:2018-09-05 09/11/2018 JOSÉ MIGUEL Markham Primary IVA [place] [id number] [place] Insurance:MEDICAL MAIBACHDOB: [facility] [id number] [place] [address]Bws: Number: Repository [id number] (HP) Date:2947-05-41VI [address] [address]OK: 09/11/2018 Secondary NOT GIVENUNK [place] Insurance:SELF PAY [facility] Number: Effective Repository Date:2018-09-05 09/10/2018 JOSÉ MIGUEL Markham Primary IVA [place] [id number] [place] Insurance:MEDICAL MAIBACHDOB: [facility] [id number] Indian Medical Center [address]Jpn: Number: Repository [id number] (HP) Date:7978-05-74CK [place] [phone]: 09/10/2018 Secondary NOT G[place]UNK [place] Insurance:SELF PAY [facility] Number: Effective Repository Date:2018-09-05 09/09/2018 JOSÉ MIGUEL Rashi Primary IVA Jhonathan [place] [id number] [place] Insurance:MEDICAL MAIBACHDOB: [facility] [id number] Indian Medical Center [address]Wgd: Number: Repository [id number] (HP) Date:6833-78-84XU [place] [phone]: 09/09/2018 Secondary NOT GIVENUNK [place] Insurance:SELF PAY [facility] Number: Effective Repository Date:2018-09-05 08/26/2018 JOSÉ MIGUEL Markham Primary IVA [place] [id number] [place] Insurance:MEDICAL MAIBACHDOB: [facility] [id number] Indian Medical Center [address]Vrd: Number: Repository [id number] (HP) Date:5957-25-96XL [address] [address]QX: 08/26/2018 Secondary NOT GIVENUNK [place] Insurance:SELF PAY [facility] Number: Effective Repository Date:2018-07-31 08/06/2018 JOSÉ MIGUEL Markham Primary IVA Jhonathan [place] [id number] [place] Insurance:MEDICAL MAIBACHDOB: [facility] [id number] [place] [address]Xzv: Number: Repository [id number] (HP) Date:7478-94-88AT [address] [place] [address]RW: 08/06/2018 Secondary NOT GIVENUNK [place] Insurance:SELF PAY [facility] Number: Effective Repository Date:2018-08-05 08/02/2018 JOSÉ MIGUEL J Primary IVA Jhonathan [place] [id number] [place] Insurance:MEDICAL MAIBACHDOB: [facility] [id number] Indian Medical Center [address]Unb: Number: Repository [id number] (HP) Date:4392-36-89UC [address] [place], [place] [address]WP: 08/02/2018 Secondary NOT GIVENUNK [place] Insurance:SELF PAY [facility] Number: Effective Repository Date:2018-07-26 08/01/2018 JOSÉ MIGUEL Markham Primary IVA Cottrell [place] [id number] [place] Insurance:MEDICAL MAIBACHDOB: [facility] [id number] Indian Medical Center [address]Yqz: Number: Repository [id number] (HP) Date:4920-66-70NJ [address] [place], [place] [address]WP: 08/01/2018 Secondary NOT GIVENUNK [place] Insurance:SELF PAY [facility] Number: Effective Repository Date:2018-07-26 07/31/2018 JOSÉ MIGUEL J Primary IVA Jhonathan [place] [id number] [place] Insurance:MEDICAL MAIBACHDOB: [facility] [id number] Indian Medical Center [address]Pre: Number: Repository [id number] (HP) Date:7147-66-91GQ [address] [place], [place] [address]WP: 07/31/2018 Secondary NOT GIVENUNK [place] Insurance:SELF PAY [facility] Number: Effective Repository Date:2018-07-26 07/30/2018 JOSÉ MIGUEL Markham Primary IVA [place] [id number] [place] Insurance:MEDICAL MAIBACHDOB: [facility] [id number] Indian Medical Center [address]Pqq: Number: Repository [id number] (HP) Date:2150-66-16AQ [address] [address]HY: 07/30/2018 Secondary NOT GIVENUNK [place] Insurance:SELF PAY [facility] Number: Effective Repository Date:2018-07-26 07/29/2018 JOSÉ MIGUEL Rashi Primary IVA Larry [id number] [place] Insurance:MEDICAL MAIBACHDOB: [facility] 4385-65-19HNSGallup Indian Medical Center [address]Nrj: Number: Repository [id number] (HP) Date:1121-66-61SB [address] [address]OG: 07/29/2018 Secondary NOT GIVENUNK [place] Insurance:SELF PAY [facility] Number: Effective Repository Date:2018-07-26 07/23/2018 JOSÉ MIGUEL Markham Estee IVA Larry [id number] [place] Insurance:MEDICAL MAIBACHDOB: [facility] [id number] Indian Medical Center [address]Ccb: Number: Repository [id number] (HP) Date:3522-59-17XN [address] [address]GF: 07/23/2018 Secondary NOT GIVENUNK [place] Insurance:SELF PAY [facility] Number: Effective Repository Date:2018-07-02 07/12/2018 JOSÉ MIGUEL Markham Primary IVA Jhonathan Larry [id number] [place] Insurance:MEDICAL MAIBACHDOB: [facility] [id number] [place] [address]Lrw: Number: Repository [id number] (HP) Date:1650-10-34YT [address] [address]XC: 07/12/2018 Secondary [place]IVENUNK [place] Insurance:SELF PAY [facility] Number: Effective Repository Date:2018-06-21 07/11/2018 JOSÉ MIGUEL Rashi Primary IVA Jhonathan Larry [id number] [place] Insurance:MEDICAL MAIBADOB: [facility] [id number] Indian Medical Center [address]Bmq: Number: Repository [id number] (HP) Date:5978-45-38LJ [place] 5[address]001[address]WP: 07/11/2018 Secondary NOT GIVENUNK [place] Insurance:SELF PAY [facility] Number: Effective Repository Date:2018-06-21 07/10/2018 JOSÉ MIGUEL Markham Primary IVA [place] [id number] [place] Insurance:MEDICAL MAIBACHDOB: [facility] [id number] Indian Medical Center [address]Auk: Number: Repository [id number] (HP) Date:4059-52-92LE [place] 5[address]WP: 07/10/2018 Secondary NOT GIVENUNK [place] Insurance:SELF PAY [facility] Number: Effective Repository Date:2018-06-21 07/09/2018 JOSÉ MIGUEL Rashi Primary IVA Jhonathan Larry [id number] [place] Insurance:MEDICAL MAIBACHDOB: [facility] [id number] Indian Medical Center [address]Tef: Number: Repository [id number] (HP) Date:0170-38-48MB [place] 5483001[address]WP: 07/09/2018 Secondary [place] GIV[place]UNK [place] Insurance:SELF PAY [facility] Number: Effective Repository Date:2018-06-21 07/08/2018 JOSÉ MIGUEL Markham Primary IVA Larry [id number] [place] Insurance:MEDICAL MAIBACHDOB: [facility] [id number] Indian Medical Center [address]Fub: Number: Repository [id number] (HP) Date:2837-43-78ZZ [address] [address]TI: 07/08/2018 Secondary NOT GIVENUNK [place] Insurance:SELF PAY [facility] Number: Effective Repository Date:2018-06-21 06/26/2018 JOSÉ MIGUEL Markham Primary IVA Larry [id number] [place] Insurance:MEDICAL MAIBACHDOB: [facility] 4182-31-10ZHMGallup Indian Medical Center [address]Ojq: Number: Repository [id number] (HP) Date:0911-56-26HM [address] [address]XC: 06/26/2018 Secondary NOT GIVENUNK [place] Insurance:SELF PAY [facility] Number: Effective Repository Date:2018-05-30 06/21/2018 JOSÉ MIGUEL Markham Primary IVA Larry [id number] [place] Insurance:MEDICAL MAIBACHDOB: [facility] [id number] [place] [address]Ujh: Number: Repository [id number] (HP) Date:9562-39-96JZ [address] [address]GT: 06/21/2018 Secondary [place] GIV[place]K [place] Insurance:SELF PAY [facility] Number: Effective Repository Date:2018-05-27 06/20/2018 JOSÉ MIGUEL Rashi Primary IVA Larry [id number] [place] Insurance:MEDICAL MAIBACHDOB: [facility] [id number] Indian Medical Center [address]Hfn: Number: Repository [id number] (HP) Date:4912-02-77OM [address] [address]HG: 06/20/2018 Secondary NOT GIVENUNK [place] Insurance:SELF PAY [facility] Number: Effective Repository Date:2018-05-27 06/19/2018 JOSÉ MIGUEL Markham Primary IVA Jhonathan Larry [id number] [place] Insurance:MEDICAL MAIBACHDOB: [facility] [id number] Indian Medical Center [address]Biv: Number: Repository [id number] (HP) Date:9033-91-74MY [place] 5483001[address]WP: 06/19/2018 Secondary NOT GIVENUNK [place] Insurance:SELF PAY [facility] Number: Effective Repository Date:2018-05-27 06/18/2018 JOSÉ MIGUEL Rashi Primary IVA Jhonathan Larry [id number] [place] Insurance:MEDICAL MAIBACHDOB: [facility] [id number] Indian Medical Center [address]Rrj: Number: Repository [id number] (HP) Date:6941-10-41UJ [place] 5483001[address]WP: 06/18/2018 Secondary NOT GIV[place]K [place] Insurance:SELF PAY [facility] Number: Effective Repository Date:2018-05-27 06/17/2018 JOSÉ MIGUEL Markham Primary IVA Jhonathan Larry [id number] [place] Insurance:MEDICAL MAIBACHDOB: [facility] [id number] Indian Medical Center [address]Sfr: Number: Repository [id number] (HP) Date:7868-94-45NC [place] 5483001[address]WP: 06/17/2018 Secondary NOT GIVENUNK [place] Insurance:SELF PAY [facility] Number: Effective Repository Date:2018-05-24 05/24/2018 José Miguel Markham Primary IVA Larry [id number] [place] Insurance:MEDICAL MAIBACHDOB: [facility] [id number] Indian Medical Center [address]Ure: Number: Repository [id number] (HP) Date:6209-07-32LT [place] 5483001[address]WP: 05/24/2018 Secondary NOT GIVENUNK [place] Insurance:SELF PAY [facility] Number: Effective Repository Date:2018-04-18 05/23/2018 José Miguel Markham Primary IVA Larry [id number] [place] Insurance:MEDICAL MAIBACHDOB: [facility] 8418-87-35KZAGallup Indian Medical Center [address]Rgs: Number: Repository [id number] (HP) Date:0855-81-46VG [place] 5483001[address]WP: 05/23/2018 Secondary NOT GIV[place]K [place] Insurance:SELF PAY [facility] Number: Effective Repository Date:2018-04-18 05/22/2018 José Miguel Markham Primary IVA Larry [id number] [place] Insurance:MEDICAL MAIBACHDOB: [facility] [id number] Indian Medical Center [address]Ogn: Number: Repository [id number] (HP) Date:8513-74-41QA [place] 5483001[address]WP: 05/22/2018 Secondary NOT GIV[place]K [place] Insurance:SELF PAY [facility] Number: Effective Repository Date:2018-04-18 05/21/2018 José Miguel Markham Primary IVA Jhonathan Larry [id number] [place] Insurance:[facility] [id number] Indian Medical Center [address]Nxo: Number: Repository [id number] (HP) Date:8365-10-26OG [address] [address]SQ: 05/21/2018 Secondary NOT GIV[place]K [place] Insurance:SELF PAY [facility] Number: Effective Repository Date:2018-04-18 05/20/2018 José Miguel Markham Primary IVA Jhonathan Larry [id number] [place] Insurance:MEDICAL MAIBACHDOB: [facility] [id number] Indian Medical Center [address]Puj: Number: Repository [id number] (HP) Date:2863-92-17KE [address] [address]DL: 05/20/2018 Secondary NOT GIV[place]K [place] Insurance:SELF PAY [facility] Number: Effective Repository Date:2018-04-18 05/18/2018 José Miguel Markham Primary IVA Jhonathan Larry [id number] [place] Insurance:MEDICAL MAIBACHDOB: [facility] [id number] Indian Medical Center [address]Hcb: Number: Repository [id number] (HP) Date:1000-32-15GK [address] [address]DR: 05/18/2018 Secondary NOT GIV[place]K [place] Insurance:SELF PAY [facility] Number: Effective Repository Date:2018-04-26 04/16/2018 José Miguel Rashi Primary IVA Jhonathan Larry [id number] [place] Insurance:MEDICAL MAIBADOB: [facility] [id number] Indian Medical Center [address]Ggg: Number: Repository [id number] (HP) Date:5282-31-87HT [address] [address]UD: 04/16/2018 Secondary NOT GIVENUNK [place] Insurance:SELF PAY [facility] Number: Effective Repository Date:2018-03-28 04/06/2018 José Miguel Markham Primary IVA Larry [id number] [place] Insurance:MEDICAL MAIBACHDOB: [facility] [id number] Indian Medical Center [address]Tci: Number: Repository [id number] (HP) Date:4869-92-29LT [address] [place], [place] [address]WP: 04/06/2018 Secondary NOT GIVENUNK [place] Insurance:SELF PAY [facility] Number: Effective Repository Date:2018-03-07 04/05/2018 José Miguel Markham Primary IVA Larry [id number] [place] Insurance:MEDICAL MAIBACHDOB: [facility] [id number] [place] [address]Ghw: Number: Repository [id number] (HP) Date:3433-95-72LI [address] [place], [place] [address]WP: 04/05/2018 Secondary NOT GIVENUNK [place] Insurance:SELF PAY [facility] Number: Effective Repository Date:2018-03-07 04/04/2018 José Miguel Markham Primary IVA Larry [id number] [place] Insurance:MEDICAL MAIBACHDOB: [facility] [id number] Indian Medical Center [address]Nrh: Number: Repository [id number] (HP) Date:9489-56-05CI [address] [address]TD: 04/04/2018 Secondary NOT GIVENUNK [place] Insurance:SELF PAY [facility] Number: Effective Repository Date:2018-03-07 04/03/2018 José Miguel Markham Primary IVA Larry [id number] [place] Insurance:MEDICAL MAIBACHDOB: [facility] 4851-07-66DXEGallup Indian Medical Center [address]Wja: Number: Repository [id number] (HP) Date:2157-32-86BE [address] [address]HF: 04/03/2018 Secondary [place]K [place] Insurance:SELF PAY [facility] Number: Effective Repository Date:2018-03-07 04/02/2018 José Miguel Markham Primary IVA Jhonathan Larry [id number] [place] Insurance:MEDICAL MAIBACHDOB: [facility] [id number] Indian Medical Center [address]Zdd: Number: Repository [id number] (HP) Date:8063-18-09DP [place] 5483001[address]WP: 04/02/2018 Secondary NOT GIV[place]K [place] Insurance:SELF PAY [facility] Number: Effective Repository Date:2018-03-07 03/27/2018 José Miguel Markham Primary IVA Jhonathan Larry [id number] [place] Insurance:MEDICAL MAIBACHDOB: [facility] [id number] Indian Medical Center [address]Wiv: Number: Repository [id number] (HP) Date:8825-97-21MR [address] [address]GK: 03/27/2018 Secondary NOT GIVENUNK [place] Insurance:SELF PAY [facility] Number: Effective Repository Date:2018-02-26 03/08/2018 José Miguel Markham Primary IVA Jhonathan Larry [id number] [place] Insurance:MEDICAL MAIBACHDOB: [facility] [id number] Indian Medical Center [address]Ure: Number: Repository [id number] (HP) Date:0316-25-78FU [address] [address]IN: 03/08/2018 Secondary NOT GIV[place]K [place] Insurance:SELF PAY [facility] Number: Effective Repository Date:2018-02-18 03/07/2018 José Miguel Markham Primary IVA Larry [id number] [place] Insurance:MEDICAL MAIBACHDOB: [facility] [id number] [place] [address]Yid: Number: Repository [id number] (HP) Date:0197-87-30AD [address] [address]CY: 03/07/2018 Secondary NOT GIVENUNK [place] Insurance:SELF PAY [facility] Number: Effective Repository Date:2018-02-18 03/06/2018 José Miguel Markham Primary IVA Larry [id number] [place] Insurance:MEDICAL MAIBACHDOB: [facility] [id number] [place] [address]Ios: Number: Repository [id number] (HP) Date:6747-64-00YM [facility] [address] [place] [address]FA: 03/06/2018 Secondary NOT GIVENUNK [place] Insurance:SELF PAY [facility] Number: Effective Repository Date:2018-02-18 03/05/2018 José Miguel Larry [id number] [place] Insurance:MEDICAL MAIBACHDOB: [facility] [id number] [place] [address]Gnr: Number: Repository [id number] (HP) Date:2028-59-24SL [address] [address]LZ: 03/05/2018 Secondary NOT GIV[place]K [place] Insurance:SELF PAY [facility] Number: Effective Repository Date:2018-02-18 03/04/2018 José Miguel Markham Primary IVA Larry [id number] [place] Insurance:MEDICAL MAIBACHDOB: [facility] [id number] Indian Medical Center [address]Hoh: Number: Repository [id number] (HP) Date:5011-03-88VH [address] [address]GL: 03/04/2018 Secondary NOT GIVENUNK [place] Insurance:SELF PAY [facility] Number: Effective Repository Date:2018-02-18 02/13/2018 José Miguel Markham Primary IVA Jhonathan Larry [id number] [place] Insurance:MEDICAL MAIBACHDOB: [facility] 8658-07-08TPNGallup Indian Medical Center [address]Nor: Number: Repository [id number] (HP) Date:9674-15-63DN [address] [address]XO: 02/13/2018 Secondary NOT GIV[place]K [place] Insurance:SELF PAY [facility] Number: Effective Repository Date:2018-02-12 02/11/2018 José Miguel Markham Primary IVA Jhonathan [place] [id number] [place] Insurance:MEDICAL MAIBACHDOB: [facility] [id number] Indian Medical Center [address]Pwk: Number: Repository [id number] (HP) Date:6756-54-75LE [address] [address]UI: 02/11/2018 Secondary NOT [place]K [place] Insurance:SELF PAY [facility] Number: Effective Repository Date:2018-01-28 02/08/2018 José Miguel Markham Primary IVA Jhonathan [place] [id number] [place] Insurance:MEDICAL MAIBACHDOB: [facility] 9226-25-31SZAGallup Indian Medical Center [address]Opn: Number: Repository [id number] (HP) Date:5899-79-64RG [address] [address]ZB: 02/08/2018 Secondary NOT GIVENUNK [place] Insurance:SELF PAY [facility] Number: Effective Repository Date:2018-01-25 02/07/2018 José Miguel Markham Primary IVA [place] [id number] [place] Insurance:MEDICAL MAIBACHDOB: [facility] [id number] [place] [address]Acv: Number: Repository [id number] (HP) Date:0444-81-61LQ [address] [place], [place] [address]WP: 02/07/2018 Secondary [place]K [place] Insurance:SELF PAY [facility] Number: Effective Repository Date:2018-01-25 02/06/2018 José Miguel Markham Primary IVA [place] [id number] [place] Insurance:MEDICAL MAIBACHDOB: [facility] [id number] [place] [address]Kaf: Number: Repository [id number] (HP) Date:7822-51-32CW [address] [place], [place] [address]WP: 02/06/2018 Secondary NOT [place]K [place] Insurance:SELF PAY [facility] Number: Effective Repository Date:2018-01-25 02/05/2018 José Miguel Markham Primary IVA [place] [id number] [place] Insurance:MEDICAL MAIBACHDOB: [facility] [id number] [place] [address]Jdt: Number: Repository [id number] (HP) Date:8340-06-62AH [address] [place] [address]ZW: 02/05/2018 Secondary [place] Insurance:SELF PAY [facility] Number: Effective Repository Date:2018-01-25 02/04/2018 José Miguel Markham Primary IVA Larry [id number] [place] Insurance:MEDICAL MAIBACHDOB: [facility] 2558-74-10FWZGallup Indian Medical Center [address]Hgs: Number: Repository [id number] (HP) Date:2641-66-00JF [address] [place] [address]SR: 02/04/2018 Secondary NOT GIVENUNK [place] Insurance:SELF PAY [facility] Number: Effective Repository Date:2018-01-25 01/18/2018 José Miguel Markham Primary IVA Jhonathan [place] [id number] [place] Insurance:MEDICAL MAIBACHDOB: [facility] [id number] Indian Medical Center [address]Vsy: Number: Repository [id number] (HP) Date:8523-70-62XY [place] 5483001[address]WP: 01/18/2018 Secondary NOT GIV[place]K [place] Insurance:SELF PAY [facility] Number: Effective Repository Date:2018-01-17 01/17/2018 José Miguel Markham Primary IVA Jhonathan [place] [id number] [place] Insurance:MEDICAL MAIBACHDOB: [facility] [id number] Indian Medical Center [address]Xbv: Number: Repository [id number] (HP) Date:2824-76-39ZA [address] [address]NT: 01/17/2018 Secondary NOT GIVENUNK [place] Insurance:SELF PAY [facility] Number: Effective Repository Date:2018-01-10 01/16/2018 José Miguel J Primary IVA Jhonathan [place] [id number] [place] Insurance:MEDICAL MAIBAHOAG [facility]OR[facility] H[facility] PRESBYTERIANB: [facility] [id number] Indian Medical Center [address]Vdz: Number: Repository [id number] (HP) Date:3280-94-20UO [address] [address]JQ: 01/16/2018 Secondary NOT GIVENUNK [place] Insurance:SELF PAY [facility] Number: Effective Repository Date:2018-01-10 01/15/2018 José Miguel Markham Primary IVA Jhonathan [place] [id number] [place] Insurance:MEDICAL MAIBACHDOB: [facility] 7825-99-61DSSBuckeye [place] Number: Repository [address]Eyj: 330 [id number] [phone] (HP) Date:5398-14-02SN [address] [address]EE: 01/15/2018 Secondary NOT GIVENUNK [place] Insurance:SELF PAY [facility] Hospital Number: Effective Repository Date:2018-01-10 01/14/2018 José Miguel Markham Primary IVA Jhonathan [place] [id number] [place] Insurance:MEDICAL MAIBACHDOB: [facility] 6564-91-83XBDBuckeye [place] Number: Repository [address]Lhd: 330 [id number] [phone] (HP) Date:8702-30-01MS [address] [address]CB: 01/14/2018 Secondary NOT GIVENUNK [place] Insurance:SELF PAY [facility] Hospital Number: Effective Repository Date:2018-01-10 01/09/2018 José Miguel Markham Primary IVA Jhonathan GoldbergP[place] [id number] [place] Insurance:MEDICAL MAIBACHDOB: [facility] 2600-77-96TKFBuckeye [place] Number: Repository [address]Azo: 330 [id number] [phone] (HP) Date:4779-87-47PF [address] [address]LY: 01/09/2018 Secondary NOT GIVENUNK [place] Insurance:SELF PAY [facility] Hospital Number: Effective Repository Date:2017-12-27 01/03/2018 José Miguel Markham Primary IVA Jhonathan [place] [id number] [place] Insurance:MEDICAL MAIBACHDOB: [facility] 2477-88-71HEYBuckeye [place] Number: Repository [address]Bwo: (974) [id number] [phone] (HP) Date:0679-71-78XF [address] [place] [address]MW: 01/03/2018 Secondary NOT GIVENUNK [place] Insurance:SELF PAY [facility] Number: Effective Repository Date:2018-01-02 12/28/2017 José Miguel Markham Primary IVA [place] [id number] [place] Insurance:MEDICAL MAIBACHDOB: [facility] 5568-47-20ATPBuckeye [place] Number: Repository [address]Nji: 330 [id number] [phone] (HP) Date:4670-64-37GM [address] [place] [address]LR: 12/28/2017 Secondary NOT GIVENUNK [place] Insurance:SELF PAY [facility] Number: Effective Repository Date:2017-12-07 12/27/2017 José Miguel Markham Primary IVAShu Larry [id number] [place] Insurance:MEDICAL MAIBACHDOB: [facility] 5986-77-06CWYGallup Indian Medical Center [address]Tcj: Number: Repository [id number] (HP) Date:6985-90-69WS [facility] [address] [place] [address]FK: 12/27/2017 Secondary NOT GIVENUNK [place] Insurance:SELF PAY [facility] Number: Effective Repository Date:2017-12-07 12/26/2017 José Miguel Markham Primary Insurance:[facility] Iva Jhonathan [place] [id number] [place] [facility] CenterB: [facility] 0624-56-87VQRBuckeye [place] Number: Repository [address]Zdl: 330 [id number] [phone] (HP) Date:6483-29-84[address] [address]LPVSPVPMM, [place] [address]LD: CHECK WEBSITE 12/26/2017 Secondary NOT GIVENUNK [place] Insurance:SELF PAY [facility] Hospital Number: Effective Repository Date:2017-12-07 12/25/2017 José Miguel Markham Primary Insurance:[facility] Iva Larry [id number] [facility] HospitalibachDOB: [facility] 6911-98-17QZKBuckeye Lake, [place] Number: Repository [address]Svx: (586) [id number] [phone] (HP) Date:9027-17-42HH [address] [address]TXRGOJANM, [place] [address]BL: CHECK WEBSITE 12/25/2017 Secondary NOT GIVENUNK [place] Insurance:SELF PAY [facility] Number: Effective Repository Date:2017-12-07 12/24/2017 José Miguel Markham Primary Insurance:[facility] Iva Larry [id number] [facility] HealthchDOB: [facility] 6982-98-62FLHBuckeye Lake, [place] Number: Repository [id number]: (999) [id number] [phone] (HP) Date:3433-59-83JK [address] [address]GWKOLXTGU, [place] [address]VT: CHECK WEBSITE 12/24/2017 Secondary NOT GIVENUNK [place] Insurance:SELF PAY [facility] Number: Effective Repository Date:2017-12-07 12/19/2017 José Miguel Markham Primary Insurance:[facility] Iva Larry [id number] [facility] HealthchDOB: [facility] 9701-53-57MXEBuckeye Lake, [place] Number: Repository [address]Cdk: 330 [id number] [phone] (HP) Date:5355-78-81CN [address] [address]VGAVLEMJC, [place] [address]GM: CHECK WEBSITE 12/19/2017 Secondary NOT GIVENUNK [place] Insurance:SELF PAY [facility] Number: Effective Repository Date:2017-11-30 12/07/2017 José Miguel Markham Primary Insurance:[facility] Iva Larry [id number] [facility] HospitalD[facility]: [facility] 3964-76-15COXBuckeye [place] Number: Repository [address]Mus: 330 [id number] [phone] (HP) Date:1843-10-51VF [address] [address]PZMZTOJIT, [place] [address]AB: CHECK WEBSITE 12/07/2017 Secondary NOT GIVENUNK [place] Insurance:SELF PAY [facility] Number: Effective Repository Date:2017-11-15 12/06/2017 José Miguel Markham Primary Insurance:[facility] Iva Larry [id number] [facility] HealthchDOB: [facility] SERVICESGe[facility] 5254-12-86FAWBuckeye Lake, [place] Number: Repository [address]Mur: 330 [id number] [phone] (HP) Date:6261-63-61SE [address] [address]AHCJTAWWS, [place] [address]XG: CHECK WEBSITE 12/06/2017 Secondary NOT GIVENUNK [place] Insurance:SELF PAY [facility] Number: Effective Repository Date:2017-11-15 12/05/2017 José Miguel Markham Primary Insurance:[facility] Iva Larry [id number] [facility] HealthchDOB: [facility] 8996-30-03GJCBuckeye Lake, [place] Number: Repository [address]Sde: 330 [id number] [phone] (HP) Date:8168-50-59YF [address]HETTDEKXT, [place] [address]KM: CHECK WEBSITE 12/05/2017 Secondary NOT GIV[place]UNK [place] Insurance:SELF PAY [facility] Number: Effective Repository Date:2017-11-15 12/04/2017 José Miguel Markham Primary Insurance:[facility] Iva Larry [id number] [facility] HospitalD[facility]: [facility] 4369-75-72WDEBuckeye Lake, [place] Number: Repository [address]Els: 330 [id number] [phone] (HP) Date:9723-27-39MC [address] [address]XQFIOFWAN, [place] [address]OK: CHECK WEBSITE 12/04/2017 Secondary NOT [place] Insurance:SELF PAY [facility] Number: Effective Repository Date:2017-11-15 12/03/2017 José Miguel Markham Primary Insurance:[facility] Iva Larry [id number] [facility] [id number]: Repository [id number]: [id number] [phone] (HP) Date:[id number] [address] [address]: CHECK WEBSITE 12/03/2017 Secondary NOT GIVENUNK [place] Insurance:SELF PAY [facility] Number: Effective Repository Date:2017-11-15 11/28/2017 José Miguel Markham Primary Insurance:[facility] Iva Larry [id number] [facility]: [facility] [id number] Number: Repository [id number]: [phone] [phone] () Date:[id number] [address] [address], [place] [address]QM: CHECK WEBSITE 11/28/2017 Secondary NOT GIVENUNK [place] Insurance:SELF PAY [facility] Number: Effective Repository Date:2017-10-29
== END ==
PROVIDERS: Family Provider Family Medicine; PCP Family Medicine; Referring Provider Internal Medicine Hematology & Oncology; Visit Provider Internal Medicine Hematology & Oncology
DX: Z51.11 Encounter for antineoplastic chemotherapy (principal); C56.1 Malignant neoplasm of right ovary; C56.2 Malignant neoplasm of left ovary
CPT/HCPCS: 87493; 96367; 96413; J7040; J7050; A4216; J2405; J3490; J9351

== ENCOUNTER → 2018-10-10 13:00 | Outpatient (CLI) | payer OTHER, SELFPAY ==
[2018-09-17 13:49] VITALS: BMI 32.4
[2018-10-09 13:19] VITALS: BMI 30.8
[2018-10-10 13:16] VITALS: BP 130/73; PULSE 71; RESP 14; TEMP 36.4; O2SAT 97; BMI 30.4
--- OUTSIDE RECORDS SUMMARY | 2018-11-26 08:34 | XMS RPT_ITS ---
:1955 Author Organization [place] Support Name Relationship Address Phone JOSÉ MIGUEL CUEVA Unavailable [address] + [place] [address] R Unavailable Unavailable Unavailable JOSÉ MIGUEL CUEVA Unavailable [address] + [place] [address] R Unavailable Unavailable Unavailable JOSÉ MIGUEL CUEVA Unavailable [address] + [place] [address] R Unavailable Unavailable Unavailable JOSÉ MIGUEL CUEVA Unavailable [address] + [place] [address] R Unavailable Unavailable Unavailable JOSÉ MIGUEL CUEVA Unavailable [address] + [place] [address] R Unavailable Unavailable Unavailable JOSÉ MIGUEL CUEVA Unavailable [address] + [place] [address] R Unavailable Unavailable Unavailable JOSÉ MIGUEL CUEVA Unavailable [address] + [place] [address] R Unavailable Unavailable Unavailable JOSÉ MIGUEL CUEVA Unavailable [address] + [place] [address] R Unavailable Unavailable Unavailable JOSÉ MIGUEL CUEVA Unavailable [address] + [place] [address] R Unavailable Unavailable Unavailable JOSÉ MIGUEL CUEVA Unavailable [address] + [place] [address] R Unavailable Unavailable Unavailable JOSÉ MIGUEL CUEVA Unavailable [address] + [place] [address] R Unavailable Unavailable Unavailable JOSÉ MIGUEL CUEVA Unavailable [address] + [place] [address] R Unavailable Unavailable Unavailable MAIBACH, JOSÉ MIGUEL Unavailable [address] + [place] [address] R Unavailable Unavailable Unavailable MAIBACH, JOSÉ MIGUEL Unavailable [address] + [place] [address] R Unavailable Unavailable Unavailable MAIBACH, JOSÉ MIGUEL Unavailable [address] + [place] [address] R Unavailable Unavailable Unavailable MAIBACH, JOSÉ MIGUEL Unavailable [address] + [place] [address] R Unavailable Unavailable Unavailable MAIBACH, JOSÉ MIGUEL Unavailable [address] + [place] [address] R Unavailable Unavailable Unavailable MAIBACH, JOSÉ MIGUEL Unavailable [address] + [place] [address] R Unavailable Unavailable Unavailable MAIBACH, JOSÉ MIGUEL Unavailable [address] + [place] [address] R Unavailable Unavailable Unavailable MAIBACH, JOSÉ MIGUEL Unavailable [address] + [place] [address] R Unavailable Unavailable Unavailable MAIBACH, JOSÉ MIGUEL Unavailable [address] + [place] [address] R Unavailable Unavailable Unavailable MAIBACH, JOSÉ MIGUEL Unavailable [address] + [place] [address] R Unavailable Unavailable Unavailable MAIBACH, JOSÉ MIGUEL Unavailable [address] + [place] [address] R Unavailable Unavailable Unavailable MAIBACH, JOSÉ MIGUEL Unavailable [address] + [place] [address] R Unavailable Unavailable Unavailable MAIBACH, JOSÉ MIGUEL Unavailable [address] + [place] [address] R Unavailable Unavailable Unavailable MAIBACH, JOSÉ MIGUEL Unavailable [address] + [place] [address] R Unavailable Unavailable Unavailable MAIBACH, JOSÉ MIGUEL Unavailable [address] + [place] [address] R Unavailable Unavailable Unavailable MAIBACH, JOSÉ MIGUEL Unavailable [address] + [place] [address] R Unavailable Unavailable Unavailable MAIBACH JOSÉ MIGUEL Unavailable [address] + [place] [address] R Unavailable Unavailable Unavailable OSCAR CUEVAEN Unavailable [address] + [place] [address] R Unavailable Unavailable Unavailable MAYAMILCH, JOSÉ MIGUEL Unavailable [address] + [place] [address] R Unavailable Unavailable Unavailable MAIBACH, JOSÉ MIGUEL Unavailable [address] + [place] [address] R Unavailable Unavailable Unavailable MAIBACH, JOSÉ MIGUEL Unavailable [address] + [place] [address] R Unavailable Unavailable Unavailable MAIBACH, JOSÉ MIGUEL Unavailable [address] + [place] [address] R Unavailable Unavailable Unavailable ANAY JOSÉ MIGUEL Unavailable [address] + [place] [address] R Unavailable Unavailable Unavailable YVROSEIBACH, JOSÉ MIGUEL Unavailable [address] + [place] [address] R Unavailable Unavailable Unavailable ANAY JOSÉ MIGUEL Unavailable [address] + [place] [address] R Unavailable Unavailable Unavailable СВЕТЛАНАCH, JOSÉ MIGUEL Unavailable [address] + [place] [address] R Unavailable Unavailable Unavailable ANAY JOSÉ MIGUEL Unavailable [address] + [place] [address] R Unavailable Unavailable Unavailable YVROSEIBACH, JOSÉ MIGUEL Unavailable [address] + [place] [address] R Unavailable Unavailable Unavailable YVROSEIBACH, JOSÉ MIGUEL Unavailable [address] + [place] [address] R Unavailable Unavailable Unavailable YVROSEIBACH, JOSÉ MIGUEL Unavailable [address] + [place] [address] R Unavailable Unavailable Unavailable СВЕТЛАНАCH, JOSÉ MIGUEL Unavailable [address] + [place] [address] R Unavailable Unavailable Unavailable ANAY, JOSÉ MIGUEL Unavailable [address] + [place] [address] R Unavailable Unavailable Unavailable ANAY JOSÉ MIGUEL Unavailable [address] + [place] [address] R Unavailable Unavailable Unavailable MAIBACH JOSÉ MIGUEL Unavailable [address] + [place] [address] R Unavailable Unavailable Unavailable СВЕТЛАНАCH, JOSÉ MIGUEL Unavailable [address] + [place] [address] R Unavailable Unavailable Unavailable MAIBACH, JOSÉ MIGUEL Unavailable [address] + [place] [address] R Unavailable Unavailable Unavailable MAIBACH, JOSÉ MIGUEL Unavailable [address] + [place] [address] R Unavailable Unavailable Unavailable СВЕТЛАНАCH JOSÉ MIGUEL Unavailable [address] + [place] [address] R Unavailable Unavailable Unavailable ANAY JOSÉ MIGUEL Unavailable [address] + [place] [address] R Unavailable Unavailable Unavailable OSCAR CUEVAEN Unavailable [address] + [place] [address] R Unavailable Unavailable Unavailable OSCAR CUEVAEN Unavailable [address] + [place] [address] R Unavailable Unavailable Unavailable OSCAR CUEVAEN Unavailable [address] + [place] [address] R Unavailable Unavailable Unavailable СВЕТЛАНАCH JOSÉ MIGUEL Unavailable [address] + [place] [address] R Unavailable Unavailable Unavailable ANAY JOSÉ MIGUEL Unavailable [address] + [place] [address] R Unavailable Unavailable Unavailable YVROSEIBACH, JOSÉ MIGUEL Unavailable [address] + [place] [address] R Unavailable Unavailable Unavailable YVROSEIBACHOSCAREN Unavailable [address] + [place] [address] R Unavailable Unavailable Unavailable ANAY, JOSÉ MIGUEL Unavailable [address] + [place] [address] R Unavailable Unavailable Unavailable MAIBACH, JOSÉ MIGUEL Unavailable [address] + [place] [address] R Unavailable Unavailable Unavailable MAIBACH, JOSÉ MIGUEL Unavailable [address] + [place] [address] R Unavailable Unavailable Unavailable MAIBACH, JOSÉ MIGUEL Unavailable [address] + [place] [address] R Unavailable Unavailable Unavailable MAIBACH, JOSÉ MIGUEL Unavailable [address] + [place] [address] R Unavailable Unavailable Unavailable MAIBACH, JOSÉ MIGUEL Unavailable [address] + [place] [address] R Unavailable Unavailable Unavailable MAIBACH, JOSÉ MIGUEL Unavailable [address] + [place] [address] R Unavailable Unavailable Unavailable MAIBACH, JOSÉ MIGUEL Unavailable [address] + [place] [address] R Unavailable Unavailable Unavailable MAIBACH, JOSÉ MIGUEL Unavailable [address] + [place] [address] R Unavailable Unavailable Unavailable MAIBACH, JOSÉ MIGUEL Unavailable [address] + [place] [address] R Unavailable Unavailable Unavailable MAIBACH, JOSÉ MIGUEL Unavailable [address] + [place] [address] R Unavailable Unavailable Unavailable MAIBACH, JOSÉ MIGUEL Unavailable [address] + [place] [address] R Unavailable Unavailable Unavailable MAIBACH, JOSÉ MIGUEL Unavailable [address] + [place] [address] R Unavailable Unavailable Unavailable MAIBACH, JOSÉ MIGUEL Unavailable [address] + [place] [address] R Unavailable Unavailable Unavailable MAIBACH, JOSÉ MIGUEL Unavailable [address] + [place] [address] R Unavailable Unavailable Unavailable MAIBACH, JOSÉ MIGUEL Unavailable [address] + [place] [address] R Unavailable Unavailable Unavailable MAIBACH, JOSÉ MIGUEL Unavailable [address] + [place] [address] R Unavailable Unavailable Unavailable JOSÉ MIGUEL CUEVA Unavailable [address] + [place] [address] R Unavailable Unavailable Unavailable JOSÉ MIGUEL CUEVA Unavailable [address] + [place] [address] R Unavailable Unavailable Unavailable JOSÉ MIGUEL CUEVA Unavailable [address] + [place] [address] R Unavailable Unavailable Unavailable JOSÉ MIGUEL CUEVA Unavailable [address] + [place] [address] R Unavailable Unavailable Unavailable JOSÉ MIGUEL CUEVA Unavailable [address] + [place] [address] [facility] Unavailable [address] + [place] [address] Care Team Providers Name Role Phone PAIGE QUEEN (ANODE WORKER) Referring Unavailable OMID GEE Admitting Unavailable OMID GEE Attending Unavailable TIARA BROWN (PA) Referring Unavailable MASCI, OMAR Lucia Referring Unavailable MASCI, OMAR Lucia Referring Unavailable MASCI, OMAR Lucia Attending Unavailable MASCI, OMAR Lucia Referring Unavailable MASCI, OMAR Lucia Attending Unavailable MASCI, OMAR Lucia Referring Unavailable MASCI, OMAR Lucia Attending Unavailable MASCI, OMAR Lucia Referring Unavailable MASCI, OMAR Lucia Attending Unavailable MASCI, OMAR Lucia Referring Unavailable THELMATERRANCE Referring Unavailable MASCI, OMAR Lucia Referring Unavailable MASCI, OMAR Lucia Referring Unavailable THELMA, TERRANCE Attending Unavailable MASCI, OMAR Lucia Referring Unavailable MICHENERCATIE Attending Unavailable MICHENERCATIE Referring Unavailable MASCI, OMAR Lucia Attending Unavailable MASCI, OMAR Lucia Referring Unavailable MASCI, OMAR Lucia Attending Unavailable MASCI, OMAR Lucia Referring Unavailable MASCI, OMAR Lucia Attending Unavailable MASCI, OMAR Lucia Referring Unavailable MASCI, OMAR Lucia Attending Unavailable MASCI, OMAR Lucia Referring Unavailable MASCI, OMAR Lucia Attending Unavailable MASCI, OMAR Lucia Referring Unavailable Masci, Omar Attending Unavailable Masci, Omar [facility] Masci, Omar Attending Unavailable Masci, Omar Referring [facility]available [facility] Unavailable Masci, Omar Attending Unavailable Masci, Omar Referring Unavailable [place], [facility] Primary Care Unavailable Masci, Omar Attending Unavailable Masci, Omar Referring Unavailable [place], [facility] Care Unavailable Masci, Omar Attending Unavailable Masci, Omar Referring Unavailable [place], [place] [facility] Unavailable Masci, Omar Attending Unavailable Masci, Omar Referring [facility]available [facility] Unavailable Masci, Omar Attending Unavailable Masci, Omar Referring Unavailable [place], [place] [facility] Unavailable Masci, Omar Attending Unavailable Masci, Omar Referring Unavailable [facility], [place] [facility] Unavailable Masci, Omar Attending Unavailable Masci, Omar Referring Unavailable [facility], [place] [facility] Unavailable Masci, Omar Attending Unavailable Masci, Omar Referring Unavailable [facility], [facility] Care Unavailable Masci, Omar Attending Unavailable Masci, Omar Referring Unavailable [facility], [facility] Care Unavailable Masci, Omar Attending Unavailable Masci, Omar Referring Unavailable [facility], [facility] Care Unavailable Masci, Omar Attending Unavailable Masci, Omar Referring Unavailable [facility], [place] [facility] Unavailable Masci, Omar Attending Unavailable Masci, Omar Referring Unavailable [facility], [place] [facility] Unavailable Masci, Omar Attending Unavailable Masci, Omar Referring Unavailable [facility] Care Unavailable Masci, Omar Attending Unavailable Masci, Omar Referring Unavailable [facility], [facility] Care Unavailable Masci, Omar Attending Unavailable Masci, Omar Referring Unavailable [facility] Care Unavailable Masci, Omar Attending Unavailable Masci, Omar Referring Unavailable [facility] Care Unavailable Masci, Omar Attending Unavailable Masci, Omar Referring Unavailable [facility] Primary Care Unavailable Masci, Omar Attending Unavailable Masci, Omar Referring Unavailable [facility] Primary Care Unavailable Masci, Omar Attending Unavailable Masci, Omar Referring Unavailable [facility] Primary Care Unavailable Masci, Omar Attending Unavailable Masci, Omar Referring Unavailable [facility] Primary Care Unavailable Masci, Omar Attending Unavailable Masci, Omar Referring Unavailable [facility] Primary Care Unavailable Masci, Omar Attending Unavailable Masci, Omar Referring Unavailable [facility] Primary Care Unavailable Masci, Omar Attending Unavailable Masci, Omar Referring Unavailable [facility], [place] [facility] Unavailable Masci, Omar Attending Unavailable Masci, Omar Referring Unavailable [facility], [place] [facility] Unavailable Masci, Omar Attending Unavailable Masci, Omar Referring Unavailable [facility] Primary Care Unavailable Masci, Omar Attending Unavailable Masci, Omar Referring Unavailable [place], [place] [facility] Unavailable Masci, Omar Attending Unavailable Masci, Omar Referring Unavailable [place], [place] [facility] Unavailable Masci, Omar Attending Unavailable Masci, Omar Referring Unavailable [place], [place] [facility] Unavailable Masci, Omar Attending Unavailable Masci, Omar Referring Unavailable [place], [place] [facility] Unavailable Masci, Omar Attending Unavailable Masci, Omar Referring Unavailable [place], [place] [facility] Unavailable Masci, Omar Attending Unavailable Masci, Omar Referring Unavailable [place], [place] [facility] Unavailable Masci, Omar Attending Unavailable Masci, Omar Referring Unavailable [place], [place] [facility] Unavailable Masci, Omar Attending Unavailable Masci, Omar Referring Unavailable [place], [place] [facility] Unavailable Masci, Omar Attending Unavailable Masci, Omar Referring Unavailable [place], [place] [facility] Unavailable Masci, Omar Attending Unavailable Masci, Omar Referring Unavailable [place], [place] [facility] Unavailable Masci, Omar Attending Unavailable Masci, Omar Referring Unavailable [facility], [place] [facility] Unavailable Masci, Omar Attending Unavailable Masci, Omar Referring Unavailable [facility], [facility] Care Unavailable Masci, Omar Attending Unavailable Masci, Omar Referring Unavailable [facility], [place] [facility] Unavailable Masci, Omar Attending Unavailable Masci, Omar Referring Unavailable [facility] Care Unavailable Masci, Omar Attending Unavailable Masci, Omar Referring Unavailable [place], [place] [facility] Unavailable Masci, Omar Attending Unavailable Masci, Omar Referring Unavailable [facility], [place] [facility] Unavailable Masci, Omar Attending Unavailable Masci, Omar Referring Unavailable [facility] Primary Care Unavailable Masci, Omar Attending Unavailable Masci, Omar Referring Unavailable [facility] Primary Care Unavailable Masci, Omar Attending Unavailable Masci, Omar Referring Unavailable [facility], [place] [facility] Unavailable Masci, Omar Attending Unavailable [place], [place] [facility] Unavailable Masci, Omar Attending Unavailable Masci, Omar Referring Unavailable [place], [place] [facility] Unavailable Masci, Omar Attending Unavailable Masci, Omar Referring Unavailable [place], [place] [facility] Unavailable Masci, Omar Attending Unavailable Masci, Omar Referring Unavailable [place], [place] [facility] Unavailable Masci, Omar Attending Unavailable Masci, Omar Referring Unavailable [place], [place] [facility] Unavailable Masci, Omar Attending Unavailable Masci, Omar Referring Unavailable [place], [place] [facility] Unavailable Marcy Bruno Attending Unavailable MarcanthonyMarcy Referring Unavailable [place], [place] [facility] Unavailable Jose RobertoanthMarcy nevarez Attending Unavailable [place], [place] Referring Unavailable Masci, Omar Attending Unavailable Masci, Omar Referring Unavailable [place], [place] [facility] Unavailable Masci, Omar Attending Unavailable Masci, Omar Referring Unavailable [place], [place] [facility] Unavailable Masci, Omar Attending Unavailable Masci, Omar Referring Unavailable [place], [place] [facility] Unavailable Masci, Omar Attending Unavailable Masci, Omar Referring Unavailable [place], [place] [facility] Unavailable Masci, Omar Attending Unavailable Masci, Omar Referring Unavailable [place], [place] [facility] Unavailable Masci, Omar Attending Unavailable Masci, Omar Referring Unavailable [place], [place] [facility] Unavailable Masci, Omar Attending Unavailable Masci, Omar Referring Unavailable [place], [place] [facility] Unavailable Masci, Omar Attending Unavailable Masci, Omar Referring Unavailable [facility], [place] [facility] Unavailable Masci, Omar Attending Unavailable Masci, Omar Referring Unavailable [place], [place] [facility] Unavailable Masci, Omar Attending Unavailable Masci, Omar Referring Unavailable [place], [place] [facility] Unavailable Masci, Omar Attending Unavailable Masci, Omar Referring Unavailable [facility], [place] [facility] Unavailable Masci, Omar Attending Unavailable Masci, Omar Referring Unavailable [place], [place] [facility] Unavailable Masci, Omar Attending Unavailable Masci, Omar Referring Unavailable [facility], [place] [facility] Unavailable Masci, Omar Attending Unavailable Masci, Omar Referring Unavailable [facility], [place] [facility] Unavailable Masci, Omar Attending Unavailable Masci, Omar Referring Unavailable [place], [place] [facility] Unavailable Masci, Omar Attending Unavailable Masci, Omar Referring Unavailable [place], [place] [facility] Unavailable Masci, Omar Attending Unavailable Masci, Omar Referring Unavailable [place], [place] [facility] Unavailable Masci, Omar Attending Unavailable Masci, Omar Referring Unavailable [place], [place] [facility] Unavailable Masci, Omar Attending Unavailable Masci, Omar Referring Unavailable [place], [place] [facility] Unavailable Masci, Omar Attending Unavailable Masci, Omar Referring Unavailable [place], [place] [facility] Unavailable Masci, Omar Attending Unavailable Masci, Omar Referring Unavailable [place], [place] [facility] Unavailable Masci, Omar Attending Unavailable Masci, Omar Referring Unavailable [place], [place] [facility] Unavailable Masci, Omar Attending Unavailable Masci, Omar Referring Unavailable [place], [place] [facility] Unavailable Masci, Omar Attending Unavailable Masci, Omar Referring Unavailable [place], [place] [facility] Unavailable Masci, Omar Attending Unavailable Masci, Omar Referring Unavailable [place], [place] [facility] Unavailable Masci, Omar Attending Unavailable Masci, Omar Referring Unavailable [place], [place] [facility] Unavailable PROBLEMS PROBLEMS DATE TYPE CONDITION / CODE ATTENDING STATUS SOURCE 10/28/2018 Active Malignant neoplasm 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 Active [facility] unspecified ovary / Clinic Main C56.9(ICD-10) [facility] Rep[facility] 10/28/2018 Active Disseminated malignant NA Active [facility] neoplasm, unspecified Clinic Main / C80.0(ICD-10) [facility] Repository 10/28/2018 Active Unknown / UNK(Unknown) NA Active [facility] Main [facility] Rep[facility] 09/17/2018 Unknown N63.20 - Unspecified Marcanthony, Active [facility] lump in the left [facility] breast, unspecified Hospital quadrant / Repository N63.20(ICD-10) 08/29/2018 Unknown C56.1 - Malignant Omar Gross Active [place] neoplasm of right [facility] ovary / C56.1(ICD-10) Hospital Repository 07/04/2018 Active Nausea with vomiting, OMAR GROSS Active [facility] unspecified / Clinic Main R11.2(ICD-10) [facility] Repository 07/04/2018 Active Adverse effect of OMAR GROSS Active [facility] antineoplastic and Clinic Main immunosuppressive [facility] drugs, initial Repository encounter / T45.1X5A(ICD-10) 02/15/2016 Active Malignant neoplasm of NA Active [facility] right ovary / Clinic Main C56.1(ICD-10) [facility] Repository 02/15/2016 Active Malignant neoplasm of NA Active [facility] left ovary / Clinic Main C56.2(ICD-10) [facility] Repository 04/24/2018 Unknown Z51.11 - Encounter for Omar Gross Active [place] antineoplastic [facility] chemotherapy / Hospital Z51.11(ICD-10) Repository 04/24/2018 Unknown C56.9 - Malignant Omar Gross Active [facility] neoplasm of [facility] unspecified ovary / Hospital C56.9(ICD-10) Repository PROCEDURES PROCEDURES No Procedure Records FoundRESULTS RESULTS CBC W/DIFF, AUTOMATED Collected: 11/19/2018 Status: F Source: [place] 9:58 AM [facility] REPOSITORY TYPE CODE TESTS RESULT OUT OF [...] Lymph 1.70 Performed By: #### [id number] #### [facility] [address] [place], [address] COMPREHENSIVE METABOLIC Collected: 11/19/2018 Status: F Source: [place] [facility] 9:58 AM [facility] REPOSITORY TYPE CODE TESTS RESULT OUT OF [...] GAP 7 Performed By: #### [id number] #### [facility] [address] [place], [place], [id number] NURSING PROG Observed: 11/04/2018 Status: COMPLETED Source: [place] 8:00 PM [facility] REPOSITORY HNO ID: [id number] Author: Amara Bishop) MARTELL [place] Service: (none) Author Type: LICENSED NURSE Type: Nursing Progress Note Filed: 11/05/2018 8:43 AM Note Text: Radiology post procedure telephone follow-up call attempted. Left voice message requesting a return phone call to [phone] if experiencing any problems or concerns. After hours please call [phone] and ask for pager [phone] SURGICAL PATHOLOGY Observed: 11/04/2018 Status: C Source: [place] [place] 4:00 PM [facility] REPOSITORY ADDENDUM PRESENT Specimen originated from [facility] Specimen #: [id number] Submitting Physician: OMID GEE MD FINAL DIAGNOSIS [...] in one cassette. Gross examination performed at [facility], [address] [place] [address] 11/04/2018 9:34:25 PM Date of Report: 11/05/2018 Date of Procedure: 11/04/2018 Date of Receipt: 11/04/2018 Submitted by: OMID GEE MD Additional Physician(s): OMAR GROSS M.D. ([id number]) Location: [facility] Diagnostic [place] [address] CT BIOPSY ABD/RETROPERIT Observed: 11/04/2018 Status: F Source: [facility] 3:48 PM [facility] [place] REPOSITORY * * *Final Report* * * DATE OF EXAM: Nov 04 2018 3:48PM [facility] [place] - CT BIOPSY ABD/RETROPERIT MASS / [...] and omental/peritoneal nodules. STAFF RADIOLOGIST: Dr. Gee MOUNTED POLICE(S): Mariana Wood APRN ANODE WORKER CONSENT: The risks, benefits, treatment options, potential [...] The procedure was performed by the: the child development assistant, and the attending radiologist personally supervised the [...] GUIDED OMENTAL MASS BIOPSY DESCRIBED v 10/31/16 Hydrogenation Still Operator: AVA Transcribe Date/Time: Nov 04 2018 3:49P Dictated by : OMID GEE MD This examination was interpreted and the report reviewed and electronically signed by: OMID GEE MD on Nov 04 2018 4:34PM EST [id number] BRIEF OP NOT Observed: 11/04/2018 Status: COMPLETED Source: [place] 3:46 PM [facility] REPOSITORY HNO ID: [id number] Author: Mariana Miller) [place] Service: Radiology Author Type: Nurse Practitioner Type: Brief Op Note Filed: 11/04/2018 3:47 PM Note Text: BRIEF OPERATIVE / PROCEDURE NOTE LOG ID: [id number] SURGERY/PROCEDURE DATE: 11/04/2018 INCISION/PROCEDURE START TIME: 3:19 PM INCISION CLOSE/PROCEDURE END TIME: 3:33 PM SURGEON(S)/PROCEDURALIST(S) AND MOUNTED POLICE(S): Surgeon(s) and Role: * Omid Gee - Primary Mariana Wood APRN, CNP- [place] SURGERY/PROCEDURE(S): CT guided biopsy of peritoneal nodule ANESTHESIA: Procedural Sedation FINDINGS: nodule consistent with previous imaging ESTIMATED BLOOD LOSS: minimal SPECIMENS: four 18 gauge cores COMPLICATIONS: None PRE-OP/PRE-PROCEDURE DIAGNOSIS: 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 POST-OP/POST-PROCEDURE DIAGNOSIS: Same as above SIGNATURE: Mariana Wood APRN.CNP PATIENT NAME: Iva Cueva DATE: November 04, 2018 TIME: 3:46 PM PAGER/CONTACT #: [phone] PROGRESS Observed: 11/04/2018 Status: COMPLETED Source: [place] 3:44 PM [facility] REPOSITORY HNO ID: [id number] Author: AWA Stroud (Ct) Service: (none) Author Type: Clinical Assembler Bicycle Type: Progress Notes Filed: 11/04/2018 3:49 PM [...] PT ED Observed: 11/04/2018 Status: COMPLETED Source: [place] 2:47 PM [facility] REPOSITORY HNO ID: [id number] Author: Griselda KatzRn) TOMÁS Rodriguez Service: (none) [...] HISTORY PHYSICAL Observed: 11/04/2018 Status: COMPLETED Source: [place] 2:20 PM [facility] REPOSITORY HNO ID: [id number] Author: Omid Gee Service: Radiology Author Type: [...] November 04, 2018 TIME: 2:20 PM PAGER: [phone] CBC Collected: 11/01/2018 Status: F Source: [place] 1:16 PM [facility] REPOSITORY TYPE CODE TESTS RESULT OUT [...] nRBC <0.01 Performed By: #### CBC #### [facility] [address] [place], [place] [address] PROTIME Collected: 11/01/2018 Status: F Source: [place] 1:15 PM [facility] REPOSITORY TYPE CODE TESTS RESULT OUT OF RANGE REFERENCE UNITS LAB PSEC 9.7-13.0 sec PT Sec 10.5 LAB INR 0.9-1.3 PT INR 1.0 Result Comment: Vitamin K Antagonist (VKA) Therapeutic Range: INR 2 to 3 (Target INR of 2.5) Note: For patients treated with VKA drugs, such as warfarin, the [place] [employer] 2012 Guideline recommends [...] 2012, 141:7S-47S Pee MORALES, et al. [facility] 2017, 70: 252-289 Performed By: #### PT #### [facility] [address] [place], [place] [address] NURSING PROG Observed: 10/31/2018 Status: COMPLETED Source: [place] 1:29 PM [facility] REPOSITORY HNO ID: [id number] Author: Amara Bishop) MARTELL De La Torre Service: (none) Author Type: LICENSED NURSE Type: Nursing Progress Note Filed: 10/31/2018 1:39 PM Note Text: Pre-procedure phone calls: Contacted Iva Cueva and confirmed appt. for Biopsy scheduled on 11/04/2018, at [facility]. I will be providing you with instructions [...] to be drawn by 11/01/2018 at the [facility] closest to your home or your procedure will be rescheduled. Arrival: Please bring your Photo ID and Insurance Card. A general consent may need to be signed. Arrive to J1-1 ([facility]) Admitting/Registration by 12:30pm. Then proceed to desk QB-1 ([facility]) and check in for your procedure. Your anticipated procedure start time will be between 2 AND 2:30pm. Sheet Fed Printer/Transportation: How will you be arriving for your procedure? private car. If you will be arriving at [facility] via ambulance or public transportation, please call to discuss. You will need a responsible adult to accompany you to and from the procedure. Your stage driver is required to stay with you [...] water Written instructions provided to patient via ANPI If you have any questions please call [phone] HOSP Observed: 10/31/2018 Status: COMPLETED Source: [place] 12:00 AM [facility] REPOSITORY Patient:Iva Cueva MRN: <[id number]> Height:5' 4(1.626 m) Weight:183 lb (83.008 kg) [...] Progress Notes ([facility]): Ania Reed, SEED CLEANER OPERATOR, SEED CLEANER OPERATOR 11/01/2018 9:11 AM Signed Diane Ragland [facility] Hem/Onc Pool Cc: Randa Davison (Cbo) ? Good morning All, I am contacting you from the Precertification Department here at the [facility]. Iva Cueva, , is being reviewed for the following procedure: [address]- CT Chest on 10/28/2018. Clinical has been submitted to the patient's insurance company [employer] and the request was denied. Please see [...] Who can complete peer to peer: , ALUMINUM POURER, [place], you need to get verbal consent from the patient in order to complete the peer review as the insurance will ask if verbal consent has been obtained prior to the peer review. Peer to Peer Information: Peer to peer phone #: [phone] (option 4, 2) Appeal fax #: [phone] Appeal mailing address: [employer] Attn: Appeals [address] [place] [address], [address] [place] [id number] Case reference #: [id number] [facility] NPI :[id number] [facility] TAX ID [id number] Thank you for your attention to this matter, Diane Queen APRN.ILDEFONSO 11/01/2018 10:32 AM Signed Peer to peer scheduled for Sunday at 8a.m. ZACARIAS Amin APRN.CNP 11/04/2018 8:42 AM Signed Approved. #[id number]. Paige Queen APRN.ILDEFONSO Progress Notes ([facility]): Rosy Roth Psr 10/31/2018 12:25 PM Signed Patient wanted to give Dr. Gross a heads up that she is having a procedure on Sunday11-04-18 at [facility]. She also wanted to talk about the chemo schedules she will be traveling a lot not sure how it is going to fit into her schedule. She would like for Dr Gross give her a call so she may talk to him. Omar Gross DO 10/31/2018 1:16 PM Signed I spoke with her. DO SHAZIA Dominguez Observed: 10/30/2018 Status: COMPLETED Source: [place] 12:00 AM [facility] REPOSITORY Telephone (HEMAWS) IVA CUEVA ([id number]) 1955 F Date Time Provider Department 10/30/18 [...] order for this to be done at [facility]. Let's arrange for her. DO Lora Dominguez Psr Shawn 10/30/2018 9:51 AM Signed Called call center to be triaged - [phone] Once triaged, they will call patient to schedule. Radha Gonzalezjhonathan Psr 10/30/2018 9:52 AM Signed RADIOLOGY CALL CENTER INTAKE PROTECTIVE SERVICES OFFICER: radha EXT: [phone] DATE: October 30, 2018 TIME: 9:46 AM TRACKING #. [id number] REQUESTING PERSON: rody PHONE/PAGER: [phone] REQUESTING STAFF: Dr gross PHONE/PAGER: [phone] ORDERING DESK LOCATION: [facility] If inpatient, patient location: Never done (Note: requests for inpatient's procedures should be given to the O.D. nurse at pager #[phone]) If outpatient, best way to reach patient: [...] random biopsies do not need imaging.) IMAGING: [facility] (If the imaging was obtained outside the [facility] system, then it needs to be submitted for review prior to approval.) Note to all persons requesting biopsies: All biopsy requests will be scheduled as quickly as possible, based on the clinical urgency, availability of appointment times, the need to hold anti-thrombolytic therapy (aspirin, blood thinners) and the patient?s schedule, including the need for an available stage driver. If a percutaneous biopsy or drainage [...] [C56.1, C56.2] Order(s):IMAGING GUIDED BIOPSY ABDOMEN/RETROPERITONEAL MASS [[id number]] Order #: [id number] Prescriptions as of 10/30/2018 Sig: ZOLPIDEM 5 [...] 10/31/18 PROGRESS Observed: 10/28/2018 Status: COMPLETED Source: [place] 3:19 PM [facility] REPOSITORY HNO ID: [id number] Author: Ofelia Landeros Ct Service: (none) Author [...] W IVCON Observed: 10/28/2018 Status: F Source: [place] 3:19 PM [facility] REPOSITORY * * *Final Report* * * DATE OF EXAM: Oct 28 2018 3:19PM [facility] 0539 - CT CHEST W IVCON [...] Small amount of fluid in the pelvis Hydrogenation Still Operator: PSCB Transcribe Date/Time: Oct 28 2018 4:11P Dictated by : CARLOS ALBERTO HASKINS MD This examination was interpreted and the report reviewed and electronically signed by: CARLOS ALBERTO HASKINS MD on Oct 28 2018 4:49PM EST [id number] CT ABD/PEL W IVCON Observed: 10/28/2018 Status: F Source: [place] 3:19 PM [facility] REPOSITORY * * *Final Report* * * DATE OF EXAM: Oct 28 2018 3:19PM [facility] 0530 - CT ABD/PEL W IVCON [...] Small amount of fluid in the pelvis Hydrogenation Still Operator: [facility] Transcribe Date/Time: Oct 28 2018 4:11P Dictated by : CARLOS ALBERTO HASKINS MD This examination was interpreted and the report reviewed and electronically signed by: CARLOS ALBERTO HASKINS MD on Oct 28 2018 4:49PM EST [id number] CANCER ANTIGEN 125 Collected: 10/25/2018 Status: F Source: [place] 11:42 AM [facility] REPOSITORY TYPE CODE TESTS RESULT OUT OF RANGE REFERENCE UNITS LAB L3100.5000 0.0-38.1 U/mL High CA125 78.9 2303 Result Comment: Meghna ECLIA methodology Performed at: [employer] [facility] [address] [id number] Crossbar Frame Wirer: Carlo Bass PhD, Phone: [phone] Performed By: #### L3100.5000 #### [facility] (refer to report for specific site) refer to report for address and phone number PROGRESS Observed: 10/24/2018 Status: COMPLETED Source: [place] 4:14 PM [facility] REPOSITORY HNO ID: [id number] Author: Omar Gross Service: (none) Author Type: Physician Type: Progress Notes Filed: 10/24/2018 8:10 PM Note Text: Diagnosis: 1) Ovarian cancer. ? HPI: The patient is a 63 year old female who presented to her PCP prior to a trip to [facility] for vaccinations. She reported that [...] Taxol x 6 cycles, completed 05/27/13. 6) Towns/carbo/cassandra x cycles for biopsy proven metastatic disease [...] No jaundice or rash. No petechiae. 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 No focal motor [...] DO CNOVSP Observed: 10/24/2018 Status: COMPLETED Source: [place] 4:00 PM [facility] REPOSITORY Visit (SP) Office (PRISCILLA) IVA CUEVA ([id number]) 1955 F Date Time Provider Department 10/24/18 [...] her PCP prior to a trip to [facility] for vaccinations. She reported that [...] Taxol x 6 cycles, completed 05/27/13. 6) Towns/carbo/cassandra x cycles for biopsy proven metastatic disease [...] No jaundice or rash. No petechiae. 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 No focal motor [...] Omar Gross DO Referring Provider: OMAR GROSS [[id number]] Allergies As of Date: 10/24/2018 Noted Allergy [...] Carcinomatosis (HCC) [C80.0] Order(s):CT ABD/PEL W IVCON [[id number]] Order #: [id number] FUTURE CT CHEST W IVCON [[id number]] Order #: [id number] FUTURE iv contrast (will be provided with [...] FOR* More... Visit Notes: >> Ania Vasquez (Manager Support Services) BriannaMARTELL Brea Oct 24, 2018 4:11 PM Status: Signed Est . Pt. Discuss recent labs, poss tx Sunday Ania Reed, SEED CLEANER OPERATOR Encounter Status:Closed by OMAR GROSS DO on 10/24/18 CBC W/DIFF, AUTOMATED Collected: 10/23/2018 Status: C Source: [place] 12:53 PM [facility] REPOSITORY Order Comment: CRITICAL VALUE VERIFIED. CALLED [...] Iman jalyn Performed By: #### L100.0100 #### [facility] [address] [place], [address] COMPREHENSIVE METABOLIC Collected: 10/23/2018 Status: F Source: [place] [facility] 12:53 PM [facility] REPOSITORY TYPE CODE TESTS RESULT OUT OF [...] GAP 8 Performed By: #### L500.4050 #### [facility] [address] [facility] [place], [address] Observed: 10/09/2018 Status: F Source: [place] CDIFF (MOLECULAR) 3:15 PM [facility] REPOSITORY Is the patient receiving laxatives? N New/unexplained onset of 3 or more stools in past 24 hrs? Y Has pt arrived? Y Cdiff-Molecular Normal Reference Range = Negative C. Diff DNA Negative- No toxigenic C. Diff DNA Detected NAAT METHOD Testing was performed using nucleic acid amplification Performed By: #### M100.6796 #### [facility] [address] [facility] [place], [address] CBC W/DIFF, AUTOMATED Collected: 10/07/2018 Status: F Source: [place] 9:49 AM [facility] REPOSITORY TYPE CODE TESTS RESULT OUT OF [...] Lymph 1.28 Performed By: #### L100.0100 #### [facility] [address] [place], [address] COMPREHENSIVE METABOLIC Collected: 10/07/2018 Status: F Source: [facility] 9:49 AM [facility] REPOSITORY TYPE CODE TESTS RESULT OUT OF [...] GAP 8 Performed By: #### L500.4050 #### [facility] [address] [facility] [facility] [place], [place], [address] CANCER ANTIGEN 125 Collected: 10/07/2018 Status: F Source: [place] 9:49 AM [facility] REPOSITORY TYPE CODE TESTS RESULT OUT OF RANGE REFERENCE UNITS LAB L3100.5000 0.0-38.1 U/mL High CA125 90.0 2303 Result Comment: Xunlei ECLIA methodology Performed at: [facility] [address] [id number] Crossbar Frame Wirer: Carlo Bass PhD, Phone: [phone] Performed By: #### L3100.5000 #### [facility] (refer to report for specific site) refer to report for address and phone number BREAST LIMITED Observed: 09/26/2018 Status: F Source: [place] 1:24 PM [facility] REPOSITORY [facility] [address] [place] [address] Breast Limited Unilateral MR#: [id number] Acct: [id number] Name: IVA CUEVA Jhonathan Rep #: [id number] : 1955 F 63 From: Shahbaz Munguia MD PCP: Peter Deras MD Status: REG CLI Study: Breast Limited Unilateral Date of Exam: 09/26/18 Exam# [id number] Ordering Dr: Marcy Bruno MD STUDY: ULTRASOUND [...] Shahbaz Munguia MD at 15:18 EST Tel [phone], Service support , CC: Peter Deras MD; Marcy Bruno MD Hydrogenation Still Operator: Signed DIAG MAMM W/CAD, Observed: 09/26/2018 Status: F Source: [facility] 1:24 PM [facility] REPOSITORY [facility] [address] [place] [address] DIAG MAMM W/CAD, BILAT MR#: [id number] Acct: [id number] Name: IVA CUEVA Rep #: [id number] : 1955 F 63 From: Shahbaz Munguia MD PCP: Peter Deras MD Status: REG CLI Study: DIAG MAMM W/CAD, BILAT Date of Exam: 09/26/18 Exam# [id number] Ordering Dr: Marcy Bruno MD MAMMOGRAPHY - [...] Shahbaz Munguia MD at 8:58 EST Tel [phone], Service support , CC: Peter Deras MD; Marcy Bruno MD Hydrogenation Still Operator: Signed TELEGRAPH SERVICE RATER OFFICE VISIT Observed: 09/26/2018 Status: F Source: [place] REPORT 6:01 AM [facility] [address] [place] [address] OFFICE VISIT Date of Service: 09/17/18 MR#: [id number] Acct: [id number] Name: IVA CUEVA Rep #: [id number] : 1955 Provider: Marcy Bruno MD Age/Sex: 63/F Location: [facility] Status: Signed Intake Vital Signs09/17/18 Height 5 ft 4 in 09/17/18 Weight: 189 lb 2 oz 09/17/18 Body Mass Index (BMI) 32.4 09/17/18 Blood Pressure 122/80 H Intake Visit Reasons: ANNUAL Chief Complaint: est annual [place] Bacon Tier Required: No Is patient in pain?: No [...] abortions Past Pregnancies Del. DatNamsamantha GA/WeeksOutcome Route [facility] LocaProviderFOB e ht en ia tn [...] 08/30/2018 Status: COMPLETED Source: [place] 3:15 PM [facility] REPOSITORY HNO ID: [id number] Author: Omar Gross Service: (none) Author Type: Physician Type: Progress Notes Filed: 09/02/2018 9:16 AM Note Text: Diagnosis: 1) Ovarian cancer. ? HPI: The patient is a 63 year old female who presented to her PCP prior to a trip to [facility] for vaccinations. She reported that [...] Taxol x 6 cycles, completed 05/27/13. 6) Towns/carbo/cassandra x cycles for biopsy proven metastatic disease [...] No jaundice or rash. No petechiae. 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 No focal motor weakness. ? ASSESSMENT/PLAN: (C56.1, C56.2) Cancer of both ovaries (HCC) (primary encounter diagnosis) (C78.7) Liver metastases (HCC) KPS is 90%. Biopsy-proven recurrence. [place] refractory? -She is tolerating topotecan well thus [...] DO CNOVSP Observed: 08/30/2018 Status: COMPLETED Source: [place] 3:10 PM [facility] REPOSITORY Visit (SP) Office (PRISCILLA) IVA CUEVA ([id number]) 1955 F Date Time Provider Department 08/30/18 [...] her PCP prior to a trip to [facility] for vaccinations. She reported that [...] Taxol x 6 cycles, completed 05/27/13. 6) Towns/carbo/cassandra x cycles for biopsy proven metastatic disease [...] No jaundice or rash. No petechiae. 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 No focal motor weakness. ? ASSESSMENT/PLAN: (C56.1, C56.2) Cancer of both ovaries (HCC) (primary encounter diagnosis) (C78.7) Liver metastases (HCC) KPS is 90%. Biopsy-proven recurrence. [place] refractory? -She is tolerating topotecan well thus [...] Omar Gross DO Referring Provider: OMAR GROSS [[id number]] Allergies As of Date: 08/30/2018 Noted Allergy [...] Status: F Source: [place] 4:19 PM [facility] REPOSITORY TYPE CODE TESTS RESULT OUT OF [...] GAP 11 Performed By: #### L500.4050 #### [facility] [address] [place], [address] CBC W/DIFF, AUTOMATED Collected: 08/26/2018 Status: F Source: [place] 4:19 PM [facility] REPOSITORY TYPE CODE TESTS RESULT OUT OF [...] Normal RARE Performed By: #### L100.0100 #### [facility] [place], [address] CANCER ANTIGEN 125 Collected: 08/26/2018 Status: F Source: [place] 4:19 PM [facility] REPOSITORY TYPE CODE TESTS RESULT OUT OF RANGE REFERENCE UNITS LAB L3100.5000 0.0-38.1 U/mL High CA125 59.5 2303 Result Comment: Xunlei ECLIA methodology Performed at: [facility] [address] [id number] Crossbar Frame Wirer: Carlo Bass PhD, Phone: [phone] Performed By: #### L3100.5000 #### [facility] (refer to report for specific site) refer to report for address and phone number HOSP Observed: 08/12/2018 Status: COMPLETED Source: [place] 12:00 AM [facility] REPOSITORY Patient Update (HEMANAND) IVA CUEVA ([id number]) 1955 F Date Time Provider Department 08/12/18 OMAR GROSS During your visit today, we recorded the following information about you: Joshua Woods, RN, RN 08/12/2018 3:58 PM Signed Jacinta Tariq from [facility] prior auth called to verify pt's dose of Avastin. Pt's weight has changed and wanted to check what dose of Avastin pt should be getting. Jane checked with Dr Gross and pt should be receiving 15mg/kg (currently 88kg which would be a dose of 1320mg). Jacinta Tariq notified of this change and new order written and faxed to [facility] and Jane faxed new order to [facility] as well. Reference number is [id number] and Jacinta Tariq's fax number is [phone]. Reference number written on fax cover sheet [...] * FLUTICASONE 50 MCG/ACTUATION * Use 1 [place] in each nostril o* ERGOCALCIFEROL (VITAMIN D2) [...] 3:52 PM Status: Signed Jacinta Tariq from [facility] prior auth called to verify pt's dose of Avastin. Pt's weight has changed and wanted to check what dose of Avastin pt should be getting. Jane checked with Dr Gross and pt should be receiving 15mg/kg (currently 88kg which would be a dose of 1320mg). Jacinta Tariq notified of this change and new order written and faxed to [facility] and Jane faxed new order to [facility] as well. Reference number is [id number] and Jacinta Tariq's fax number is [phone]. Reference number written on fax cover sheet per her request. Encounter Status:Closed by JOSHUA WOODS on 08/12/18 TYPE AND SCREEN Collected: 08/05/2018 Status: F Source: [place] 12:22 PM [facility] REPOSITORY Order Comment: Reason for Type AND Screen/Red Cells: ANEMIA TYPE CODE TESTS RESULT OUT OF RANGE REFERENCE UNITS LAB B10.0800 O Normal BLOOD TYPE GEL NEGATIVE LAB B100.4000 Normal Antibody NEGATIVE Screen Performed By: #### B101.7450 #### [facility] [address] [place], [address] Collected: 08/05/2018 Status: F Source: [place] 12:22 PM [facility] REPOSITORY TYPE CODE TESTS RESULT OUT OF REFERENCE UNITS RANGE LAB U100.0000 [id number] TRANSFUSED PRODUCT: T AND S with Crossmatch, Red Cells COUNT: 1 Performed By: #### U100.0000 #### [facility] - refer to report for specific site CBC W/DIFF, AUTOMATED Collected: 08/05/2018 Status: F Source: [place] 12:10 PM [facility] REPOSITORY TYPE CODE TESTS RESULT OUT OF [...] Lymph 0.97 Performed By: #### L100.0100 #### [facility] [address] [place], [address] COMPREHENSIVE METABOLIC Collected: 08/05/2018 Status: F Source: [facility] 12:10 PM [facility] REPOSITORY TYPE CODE TESTS RESULT OUT OF [...] GAP 8 Performed By: #### L500.4050 #### [facility] [address] [place], [place], [address] CBC W/DIFF, AUTOMATED Collected: 07/29/2018 Status: F Source: [place] 1:57 PM [facility] REPOSITORY TYPE CODE TESTS RESULT OUT OF [...] ANISO 2+ Performed By: #### L100.0100 #### [facility] [address] [place], [address] CBC W/DIFF, AUTOMATED Collected: 07/23/2018 Status: C Source: [place] 2:30 PM [facility] REPOSITORY TYPE CODE TESTS RESULT OUT OF [...] Iman gunderson Performed By: #### L100.0100 #### [facility] [address] [place], [address] COMPREHENSIVE METABOLIC Collected: 07/23/2018 Status: F Source: [facility] 2:30 PM [facility] REPOSITORY TYPE CODE TESTS RESULT OUT OF [...] GAP 7 Performed By: #### L500.4050 #### [facility] [place], [address] CANCER ANTIGEN 125 Collected: 07/23/2018 Status: F Source: [place] 2:30 PM [facility] REPOSITORY TYPE CODE TESTS RESULT OUT OF RANGE REFERENCE UNITS LAB L3100.5000 0.0-38.1 U/mL High CA125 59.4 2303 Result Comment: Xunlei ECLIA methodology Performed at: [employer] [facility] [address] [id number] Crossbar Frame Wirer: Carlo Bass PhD, Phone: [phone] Performed By: #### L3100.5000 #### [facility] (refer to report for specific site) refer to report for address and phone number CNPN Observed: 07/23/2018 Status: COMPLETED Source: [place] 12:00 AM [facility] REPOSITORY Telephone (HEMAWS) IVA CUEVA ([id number]) 1955 F Date Time Provider Department 07/23/18 [...] dates. Please advise and call patient at [phone]. Omar Gross DO 07/23/2018 11:04 AM Signed Can someone call her to see how she'd like to change and to what dates? DO Jane Dmoinguez LPN 07/23/2018 12:39 PM Signed Attempted to [...] * FLUTICASONE 50 MCG/ACTUATION * Use 1 [place] in each nostril o* ERGOCALCIFEROL (VITAMIN D2) [...] 07/23/18 PROGRESS Observed: 07/04/2018 Status: COMPLETED Source: [place] 3:45 PM [facility] REPOSITORY [facility] ID: [id number] Author: Omar Gross Service: (none) Author Type: Physician Type: Progress Notes Filed: 07/04/2018 3:55 PM Note Text: Diagnosis: 1) Ovarian cancer. ? HPI: The patient is a 63 year old female who presented to her PCP prior to a trip to [facility] for vaccinations. She reported that [...] Taxol x 6 cycles, completed 05/27/13. 6) Towns/carbo/cassandra x cycles for biopsy proven metastatic disease [...] No jaundice or rash. No petechiae. 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 No focal motor weakness. ? ASSESSMENT/PLAN: (C56.1, C56.2) Cancer of both ovaries (HCC) (primary encounter diagnosis) (C78.7) Liver metastases (HCC) KPS is 90%. Biopsy-proven recurrence. [place] refractory? -She is tolerating topotecan well thus [...] DO CNOVSP Observed: 07/04/2018 Status: COMPLETED Source: [place] 11:00 AM [facility] REPOSITORY Visit (SP) Office (PRISCILLA) IVA CUEVA ([id number]) 1955 F Date Time Provider Department 07/04/18 [...] her PCP prior to a trip to [facility] for vaccinations. She reported that [...] Taxol x 6 cycles, completed 05/27/13. 6) Towns/carbo/cassandra x cycles for biopsy proven metastatic disease [...] No jaundice or rash. No petechiae. 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 No focal motor weakness. ? ASSESSMENT/PLAN: (C56.1, C56.2) Cancer of both ovaries (HCC) (primary encounter diagnosis) (C78.7) Liver metastases (HCC) KPS is 90%. Biopsy-proven recurrence. [place] refractory? -She is tolerating topotecan well thus [...] Omar Gross DO Referring Provider: OMAR GROSS [[id number]] Allergies As of Date: 07/04/2018 Noted Allergy [...] * FLUTICASONE 50 MCG/ACTUATION * Use 1 [place] in each nostril o* ERGOCALCIFEROL (VITAMIN D2) [...] Status: F Source: [place] 11:59 AM [facility] REPOSITORY TYPE CODE TESTS RESULT OUT OF [...] GAP 10 Performed By: #### L500.4050 #### [facility] [address] [place], [address] CBC W/DIFF, AUTOMATED Collected: 07/03/2018 Status: C Source: [place] 11:59 AM [facility] REPOSITORY TYPE CODE TESTS RESULT OUT OF [...] February jalyn Performed By: #### L100.0100 #### [facility] [address], [address] CANCER ANTIGEN 125 Collected: 07/03/2018 Status: F Source: [place] 11:59 AM [facility] REPOSITORY TYPE CODE TESTS RESULT OUT OF RANGE REFERENCE UNITS LAB L3100.5000 0.0-38.1 U/mL High CA125 72.9 2303 Result Comment: Meghna ECLIA methodology Performed at: - [facility] [id number] Crossbar Frame Wirer: Carlo Bass PhD, Phone: [phone] Performed By: #### L3100.5000 #### [facility] (refer to report for specific site) refer to report for address and phone number CBC W/DIFF, AUTOMATED Collected: 06/26/2018 Status: F Source: [place] 10:05 AM [facility] REPOSITORY TYPE CODE TESTS RESULT OUT OF [...] Lymph 1.44 Performed By: #### L100.0100 #### [facility] [place], [address] CNPN Observed: 06/18/2018 Status: COMPLETED Source: [place] 12:00 AM [facility] REPOSITORY Telephone (HEMAWS) IVA CUEVA ([id number]) 1955 F Date Time Provider Department 06/18/18 OMAR GROSS During your visit today, we recorded the following information about you: Bettina Orona Pss 06/18/2018 2:15 PM Signed Maday from [facility] Infusion called in - states that pt is supposed to start Aloxi infusion (?) today - they need an order from Dr. Gross that has his signature on it. Please fax signed order to [phone]. Jane James LPN 06/18/2018 2:28 PM Signed [...] DX code and signature. Please resend to [phone] Thank you Hari Avilez PSR Jane James LPN 06/19/2018 4:39 PM Signed Spoke with Lilly at [facility] infusion suite. She will call back if [...] * FLUTICASONE 50 MCG/ACTUATION * Use 1 [place] in each nostril o* ERGOCALCIFEROL (VITAMIN D2) [...] 06/18/18 PROGRESS Observed: 06/13/2018 Status: COMPLETED Source: [place] 3:14 PM [facility] REPOSITORY [facility] ID: [id number] Author: Omar Gross Service: (none) Author Type: Physician Type: Progress Notes Filed: 06/14/2018 9:51 AM Note Text: Diagnosis: 1) Ovarian cancer. ? HPI: The patient is a 63 year old female who presented to her PCP prior to a trip to [facility] for vaccinations. She reported that [...] Taxol x 6 cycles, completed 05/27/13. 6) Towns/carbo/cassandra x cycles for biopsy proven metastatic disease [...] changes. She's undergone several injections by her peoplesoft hcm developer they have not helped. This is her [...] No jaundice or rash. No petechiae. 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 No focal motor weakness. ? ASSESSMENT/PLAN: (C56.1, C56.2) Cancer of both ovaries (HCC) (primary encounter diagnosis) (C78.7) Liver metastases (HCC) KPS is 90%. Biopsy-proven recurrence. [place] refractory? -She is tolerating topotecan well thus [...] DO CNOVSP Observed: 06/13/2018 Status: COMPLETED Source: [place] 3:00 PM [facility] REPOSITORY Visit (SP) Office (PRISCILLA) IVA CUEVA ([id number]) 1955 F Date Time Provider Department 06/13/18 3:00 PM OMAR GROSS During your visit today, we recorded the following information about you: Temperature Pulse Blood pressure Weight 97.5 degrees 94/minute 137/75 86.9 kg Jane James LPN 06/13/2018 3:24 PM Signed Est patient. Discuss recent labs @[facility], next round of treatment. Jane Gross DO 06/14/2018 9:51 AM Signed Diagnosis: 1) Ovarian cancer. ? HPI: The patient is a 63 year old female who presented to her PCP prior to a trip to [facility] for vaccinations. She reported that [...] Taxol x 6 cycles, completed 05/27/13. 6) Towns/carbo/cassandra x cycles for biopsy proven metastatic disease [...] changes. She's undergone several injections by her peoplesoft hcm developer they have not helped. This is her [...] No jaundice or rash. No petechiae. 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 No focal motor weakness. ? ASSESSMENT/PLAN: (C56.1, C56.2) Cancer of both ovaries (HCC) (primary encounter diagnosis) (C78.7) Liver metastases (HCC) KPS is 90%. Biopsy-proven recurrence. [place] refractory? -She is tolerating topotecan well thus [...] Omar Gross DO Referring Provider: OMAR GROSS [[id number]] Allergies As of Date: 06/13/2018 Noted Allergy [...] * FLUTICASONE 50 MCG/ACTUATION * Use 1 [place] in each nostril o* ERGOCALCIFEROL (VITAMIN D2) [...] FOR* Visit Notes: >> Jane James LPN [facility] Jun 13, 2018 3:09 PM Status: Signed Est patient. Discuss recent labs @[facility], next round of treatment. Jane James LPN Encounter Status:Closed by OMAR GROSS DO on 06/14/18 CANCER ANTIGEN 125 Collected: 06/10/2018 Status: F Source: [place] 12:29 PM [facility] REPOSITORY TYPE CODE TESTS RESULT OUT OF RANGE REFERENCE UNITS LAB L3100.5000 0.0-38.1 U/mL High CA125 62.5 2303 Result Comment: Meghna ECLIA methodology Performed at: - [facility] [id number] Crossbar Frame Wirer: Carlo Bass PhD, Phone: [phone] Performed By: #### L3100.5000 #### [facility] (refer to report for specific site) refer to report for address and phone number CBC W/DIFF, AUTOMATED Collected: 06/10/2018 Status: F Source: [place] 12:25 PM [facility] REPOSITORY TYPE CODE TESTS RESULT OUT OF [...] Lymph 1.43 Performed By: #### L100.0100 #### [facility] [address] [facility]. [place], [place], [address] COMPREHENSIVE METABOLIC Collected: 06/10/2018 Status: F Source: [facility] 12:25 PM [facility] REPOSITORY TYPE CODE TESTS RESULT OUT OF [...] GAP 11 Performed By: #### L500.4050 #### [facility] [address] [facility]. [place], [place], [address] CBC W/DIFF, AUTOMATED Collected: 05/18/2018 Status: F Source: [place] 12:51 PM [facility] REPOSITORY TYPE CODE TESTS RESULT OUT OF [...] Lymph 1.60 Performed By: #### L100.0100 #### [facility] [address] [place], [address] COMPREHENSIVE METABOLIC Collected: 05/18/2018 Status: F Source: [facility] 12:51 PM [facility] REPOSITORY TYPE CODE TESTS RESULT OUT OF [...] GAP 4 Performed By: #### L500.4050 #### [facility] [address] [place], [place] [address] [facility] [place], [address] CT ABD/PEL W IVCON Observed: 04/29/2018 Status: F Source: [place] 2:46 PM [facility] REPOSITORY * * *Final Report* * * DATE OF EXAM: Apr 29 2018 2:46PM [facility] 0530 - CT ABD/PEL W IVCON [...] new adenopathy is seen. 3. Fatty liver Hydrogenation Still Operator: AVA Transcribe Date/Time: Apr 30 2018 4:02P Dictated by : ANTHONY DIAZ DO This examination was interpreted and the report reviewed and electronically signed by: ANTHONY DIAZ DO on Apr 30 2018 4:35PM EST [id number] Observed: 04/29/2018 Status: COMPLETED Source: [place] 2:34 PM [facility] REPOSITORY O ID: [id number] Author: Ofelia Landeros Ct Service: (none) Author [...] ISTAT BMP Collected: 04/29/2018 Status: F Source: [place] 2:00 PM [facility] REPOSITORY TYPE CODE TESTS RESULT OUT [...] + CBC Collected: 04/29/2018 Status: F Source: [place] 2:00 PM [facility] REPOSITORY TYPE CODE TESTS RESULT OUT OF REFERENCE UNITS RANGE LAB WWBC 3.70-11.00 k/uL [place] WBC 4.60 LAB WRBC 3.90-5.20 m/uL Low [place] RBC 3.30 LAB WHGB 11.5-15.5 g/dL Low [place] Hemoglobin 10.4 LAB WHCT 36.0-46.0 % Low [place] Hematocrit 32.4 LAB WMCV 80.0-100.0 fL [place] MCV 98.2 LAB WMCH 26.0-34.0 pg [place] MCH 31.5 LAB WMCHC 30.5-36.0 g/dL [place] MCHC 32.1 LAB WRDW 11.5-15.0 % [place] High RDW 16.8 LAB WPLT 150-400 k/uL [place] High Platelet Cnt 597 LAB WMPV 9.0-12.7 fL [place] MPV 9.9 Result Comment: Test performed at: [facility] [place], [address] [place] [address]. LAB ABGRAN 1.45-7.50 k/uL Absol Gran 2.53 Count [place] CREATININE Collected: 04/29/2018 Status: F Source: [place] 1:22 PM [facility] REPOSITORY TYPE CODE TESTS RESULT OUT OF REFERENCE UNITS RANGE LAB WCRET 0.7-1.4 mg/dL [place] Creatinine 0.9 CNPN Observed: 04/24/2018 Status: COMPLETED Source: [place] 12:00 AM [facility] REPOSITORY Telephone (HEMAWS) IVA CUEVA ([id number]) 1955 F Date Time Provider Department 04/24/18 OMAR GROSS During your visit today, we recorded the following information about you: Aruna Nielson 04/24/2018 11:47 AM Signed Elli from [facility] called asking for information about the patients ordered CT scan. The patient decided that he would like to have the CT at [facility] and the order needs to be sent over. Please call Elli back at [phone]. Jane James LPN 04/24/2018 11:50 AM Signed [...] since she's had all previous CTs at [facility], we'll need to get a CD of her most recent CTs from there sent her to get uploaded. DO Ashleigh Dominguez PSR 04/26/2018 9:05 AM Signed Left voicemail for patient to return call re: below and to arrange for documentation from [facility] results. Ashleigh Gandara PSR Daiana Aden PSR 04/26/2018 11:54 AM Signed Patient returned call and is aware of message below Jane James LPN 04/26/2018 12:21 PM Signed Disc requested from [facility]. Jane James LPN Allergies As of Date: [...] * FLUTICASONE 50 MCG/ACTUATION * Use 1 [place] in each nostril o* ERGOCALCIFEROL (VITAMIN D2) [...] 04/18/2018 Status: F Source: [place] 12:18 PM [facility] Medical Records Department [address] [place] [address] Downtime Report MR#: [id number] Acct: [id number] Name: IVA CUEVA Rep #: [id number] : 1955 63 From: Kam[place] PCP: Peter Deras MD Status: REG CLI This patient was seen during an EMR downtime April 01, 2018 - April 08, 2018. This patient may have a combination of paper and electronic documentation or all paper documentation. All documentation is viewable within the e-chart portion of [employer] for each patient visit. DOWNTIME REPORT Observed: 04/18/2018 Status: F Source: [place] 12:18 PM [facility] Medical Records Department [address] [place] [address] Downtime Report MR#: [id number] Acct: [id number] Name: IVA CUEVA Jhonathan Rep #: [id number] : 1955 63 From: Kamron Oh PCP: Peter Deras MD Status: REG CLI This patient was seen during an EMR downtime April 01, 2018 - April 08, 2018. This patient may have a combination of paper and electronic documentation or all paper documentation. All documentation is viewable within the e-chart portion of [employer] for each patient visit. DOWNTIME REPORT Observed: 04/18/2018 Status: F Source: [place] 12:17 PM [facility] Medical Records Department [address] [place] [address] Downtime Report MR#: [id number] Acct: [id number] Name: IVA CUEVA Jhonathan Rep #: [id number] : 1955 63 From: Kamron Oh PCP: Peter Deras MD Status: REG CLI This patient was seen during an EMR downtime April 01, 2018 - April 08, 2018. This patient may have a combination of paper and electronic documentation or all paper documentation. All documentation is viewable within the e-chart portion of [employer] for each patient visit. DOWNTIME REPORT Observed: 04/18/2018 Status: F Source: [place] 12:17 PM [facility] REPOSITORY [facility] Medical Records Department [address] [place] [address] Downtime Report MR#: [id number] Acct: [id number] Name: IVA CUEVA Rep #: [id number] : 1955 63 From: Kamron Oh PCP: Peter Deras MD Status: REG CLI This patient was seen during an EMR downtime April 01, 2018 - April 08, 2018. This patient may have a combination of paper and electronic documentation or all paper documentation. All documentation is viewable within the e-chart portion of [employer] for each patient visit. DOWNTIME REPORT Observed: 04/18/2018 Status: F Source: [place] 12:16 PM [facility] REPOSITORY [facility] Medical Records Department [address] [place] [address] Downtime Report MR#: [id number] Acct: [id number] Name: IVA CUEVA Rep #: [id number] : 1955 63 From: Kamron Oh PCP: Pteer Deras MD Status: DEP CLI This patient was seen during an EMR downtime April 01, 2018 - April 08, 2018. This patient may have a combination of paper and electronic documentation or all paper documentation. All documentation is viewable within the e-chart portion of [employer] for each patient visit. PROGRESS Observed: 04/18/2018 Status: COMPLETED Source: [place] 12:03 PM [facility] REPOSITORY HNO ID: [id number] Author: Terrance Renee Service: (none) Author Type: Physician Type: Progress Notes Filed: 04/19/2018 8:10 AM Note Text: Diagnosis: 1) Ovarian cancer. ? HPI: The patient is a 63 year old female who presented to her PCP prior to a trip to [facility] for vaccinations. She reported that [...] Taxol x 6 cycles, completed 05/27/13. 6) Towns/carbo/cassandra x cycles for biopsy proven metastatic disease [...] will be going on a cruise to [place] the second week of April. She saw [...] No jaundice or rash. No petechiae. 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 No focal motor weakness. ? LABS: review by me and the patient today. ASSESSMENT/PLAN: (C56.1, C56.2) Cancer of both ovaries (HCC) (primary encounter diagnosis) (C78.7) Liver metastases (HCC) KPS is 90%. Biopsy-proven recurrence. [place] refractory.? -She is tolerating topotecan well thus [...] Jo CNOVSP Observed: 04/18/2018 Status: COMPLETED Source: [place] 11:30 AM [facility] REPOSITORY Visit (SP) Office (PRISCILLA) IVA CUEVA ([id number]) 1955 F Date Time Provider Department 04/18/18 11:30 AM TERRANCE RENEE During your visit today, we recorded the following information about you: Temperature Pulse Blood pressure Weight 97.5 degrees 79/minute 177/80 86.6 kg Jane James LPN 04/18/2018 11:50 AM Signed Est patient. Labs at [facility]. Jane Renee MD 04/19/2018 8:10 AM Signed Diagnosis: 1) Ovarian cancer. ? HPI: The patient is a 63 year old female who presented to her PCP prior to a trip to [facility] for vaccinations. She reported that [...] Taxol x 6 cycles, completed 05/27/13. 6) Towns/carbo/cassandra x cycles for biopsy proven metastatic disease [...] will be going on a cruise to [place] the second week of April. She saw [...] No jaundice or rash. No petechiae. 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 No focal motor weakness. ? LABS: review by me and the patient today. ASSESSMENT/PLAN: (C56.1, C56.2) Cancer of both ovaries (HCC) (primary encounter diagnosis) (C78.7) Liver metastases (HCC) KPS is 90%. Biopsy-proven recurrence. [place] refractory.? -She is tolerating topotecan well thus [...] Dr. Peter Jo Referring Provider: OMAR GROSS [[id number]] Allergies As of Date: 04/18/2018 Noted Allergy [...] of Service: EST PATIENT VISIT LEVEL 4 [[id number]] Disposition: Return in about 1 week (around [...] * FLUTICASONE 50 MCG/ACTUATION * Use 1 [place] in each nostril o* ERGOCALCIFEROL (VITAMIN D2) [...] FOR* Visit Notes: >> Jane James LPN [facility] Apr 18, 2018 11:36 AM Status: Signed Est patient. Labs at [facility]. Jane James LPN Encounter Status:Closed by TERRANCE RENEE MD on 04/19/18 CNCO Observed: 04/18/2018 Status: COMPLETED Source: [place] 12:00 AM [facility] REPOSITORY Letter Text [address] [address] Catie Jo M.D. prepress proofer Section of Gynecologic Oncology Physician Office Specialist and Women's Health [place] Office: [phone] [email or web address] April 18, 2018 RE: Iva Cueva [...] MD CNPN Observed: 04/18/2018 Status: COMPLETED Source: [place] 12:00 AM [facility] REPOSITORY Telephone (PRISCILLA) IVA CUEVA ([id number]) 1955 F Date Time Provider Department 04/18/18 [...] patient has CT and Labs done at [facility]. Hari Avilez PSR 04/18/2018 2:24 PM Signed [...] week. Her CT scan is scheduled at [facility] for 04/26/18 Mar Gross DO 04/20/2018 10:10 AM Signed We'll schedule follow up based on upcoming CT results. DO Lora Dominguez 04/22/2018 10:37 AM Signed Spoke with patient and informed her our office will be contacting her after CT @ [facility] on 04/26. Allergies As of Date: 04/18/2018 [...] * FLUTICASONE 50 MCG/ACTUATION * Use 1 [place] in each nostril o* ERGOCALCIFEROL (VITAMIN D2) 5* Take 2 capsules a week for 8 * LORATADINE 10 MG TABLET Take 10 mg by mouth once edbora* DOCUSATE SODIUM 100 MG CAPSULE Take 100 [...] 04/16/2018 Status: C Source: [place] 10:19 AM [facility] REPOSITORY Order Comment: CRITICAL VALUE VERIFIED. CALLED TO LORIE AT [facility] 04/16/18 Ran7 Tiki Tran. RESULTS READ [...] Iman jalyn Performed By: #### L100.0100 #### [facility] [address] [place], [address] COMPREHENSIVE METABOLIC Collected: 04/16/2018 Status: F Source: [place] [facility] 10:19 AM [facility] REPOSITORY TYPE CODE TESTS RESULT OUT OF [...] GAP 7 Performed By: #### L500.4050 #### [facility] [place], [address] CANCER ANTIGEN 125 Collected: 04/16/2018 Status: F Source: [place] 10:19 AM [facility] REPOSITORY TYPE CODE TESTS RESULT OUT OF RANGE REFERENCE UNITS LAB L3100.5000 0.0-38.1 U/mL High CA125 48.1 2303 Result Comment: Xunlei ECLIA methodology Performed at: [facility] [address] [id number] Crossbar Frame Wirer: Carlo Bass PhD, Phone: [phone] Performed By: #### L3100.5000 #### [facility] (refer to report for specific site) refer to report for address and phone number CNOVSP Observed: 04/12/2018 Status: COMPLETED Source: [place] 3:00 PM [facility] RE[facility]ITORY Visit (SP) Office (REY) IVA CUEVA ([id number]) 1955 F Date Time Provider Department 04/12/18 [...] 7 CA 125 (U/mL) - done at [facility] Date Value 01/30/2018 25 08/06/2017 102.9 [...] She is alert, oriented, pleasant and cooperative. 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 PLAN: CA125 increasing again If rises after this cycle consider CT scans sooner than planned. If progressing, we reviewed options and definitions. We discussed that she is, by definition, algaaciq resistant with a 6 month cut-off. However, she had a CR to carboplatin/ Taxol and was right at 6 months for recurrence Given this I would favor another try with carboplatin/ Taxol and consider maintenance therapy with a PARP inhibitor (Olapaprib or Nirapirib), in pts who respond to algaaciq-based therapy. We discussed differences in PFS based on gene status, but could benefit even if not HRD positive. Consider repeat CT guided biopsy for tissue confirmation and can send some of the biopsy for [facility] or [facility] testing. Would make sure that testing is [...] note were sent to: Marcy Bruno MD [address] [place] [address] CC: DO Peter Salazar MD (PCP) Referring Provider: CATIE JO [[id number]] Allergies As of Date: 04/12/2018 Noted Allergy [...] * FLUTICASONE 50 MCG/ACTUATION * Use 1 [place] in each nostril o* ERGOCALCIFEROL (VITAMIN D2) [...] 04/12/18 PROGRESS Observed: 04/08/2018 Status: COMPLETED Source: [place] 12:25 AM [facility] REPOSITORY O ID: [id number] Author: Catie Jo Service: (none) Author Type: [...] 7 CA 125 (U/mL) - done at [facility] Date Value 01/30/2018 25 08/06/2017 102.9 [...] She is alert, oriented, pleasant and cooperative. 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 PLAN: CA125 increasing again If rises after this cycle consider CT scans sooner than planned. If progressing, we reviewed options and definitions. We discussed that she is, by definition, algaaciq resistant with a 6 month cut- off. However, she had a CR to carboplatin/ Taxol and was right at 6 months for recurrence Given this I would favor another try with carboplatin/ Taxol and consider maintenance therapy with a PARP inhibitor (Olapaprib or Nirapirib), in pts who respond to algaaciq-based therapy. We discussed differences in PFS based on gene status, but could benefit even if not HRD positive. Consider repeat CT guided biopsy for tissue confirmation and can send some of the biopsy for [employer] or [employer] testing. Would make sure that testing [...] note were sent to: Marcy Bruno MD [address] [place] [address] CC: DO Peter Salazar MD (PCP) CNOVSP Observed: 03/29/2018 Status: COMPLETED Source: [place] 10:40 AM [facility] REPOSITORY Visit (SP) Office (HEMAWS) IVA CUEVA ([id number]) 1955 F Date Time Provider Department 03/29/18 [...] her PCP prior to a trip to [facility] for vaccinations. She reported that [...] Taxol x 6 cycles, completed 05/27/13. 6) Towns/carbo/cassandra x cycles for biopsy proven metastatic disease [...] No jaundice or rash. No petechiae. 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 No focal motor weakness. ASSESSMENT/PLAN: (C56.1, C56.2) Cancer of both ovaries (HCC) (primary encounter diagnosis) (C78.7) Liver metastases (HCC) KPS is 90%. Biopsy-proven recurrence. Togiak refractory. -She is tolerating topotecan well thus [...] Omar Gross DO Referring Provider: OMAR GROSS [[id number]] Allergies As of Date: 03/29/2018 Noted Allergy [...] * FLUTICASONE 50 MCG/ACTUATION * Use 1 [place] in each nostril o* ERGOCALCIFEROL (VITAMIN D2) [...] 03/29/18 PROGRESS Observed: 03/29/2018 Status: COMPLETED Source: [place] 9:00 AM [facility] [place] REPOSITORY O ID: [id number] Author: Omar Gross Service: (none) Author Type: Physician Type: Progress Notes Filed: 03/29/2018 12:11 PM Note Text: Diagnosis: 1) Ovarian cancer. HPI: The patient is a 63 year old female who presented to her PCP prior to a trip to [facility] for vaccinations. She reported that [...] Taxol x 6 cycles, completed 05/27/13. 6) Towns/carbo/cassandra x cycles for biopsy proven metastatic disease [...] No jaundice or rash. No petechiae. 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 No focal motor weakness. ASSESSMENT/PLAN: (C56.1, C56.2) Cancer of both ovaries (HCC) (primary encounter diagnosis) (C78.7) Liver metastases (HCC) KPS is 90%. Biopsy-proven recurrence. Togiak refractory. -She is tolerating topotecan well thus [...] 03/27/2018 Status: F Source: [place] 1:35 PM [facility] REPOSITORY TYPE CODE TESTS RESULT OUT OF [...] Lymph 1.50 Performed By: #### L100.0100 #### [facility] [address] [place], [place], [address] COMPREHENSIVE METABOLIC Collected: 03/27/2018 Status: F Source: [facility] 1:35 PM [facility] REPOSITORY TYPE CODE TESTS RESULT OUT OF [...] GAP 10 Performed By: #### L500.4050 #### [facility] [place], [address] CANCER ANTIGEN 125 Collected: 03/27/2018 Status: F Source: [place] 1:35 PM [facility] REPOSITORY TYPE CODE TESTS RESULT OUT OF RANGE REFERENCE UNITS LAB L3100.5000 0.0-38.1 U/mL High CA125 49.6 2303 Result Comment: Xunlei ECLIA methodology Performed at: - [facility] [address] [id number] Crossbar Frame Wirer: Carlo Bass PhD, Phone: [phone] Performed By: #### L3100.5000 #### [facility] (refer to report for specific site) refer to report for address and phone number CBC-COMPLETE BLOOD CNT Collected: 03/04/2018 Status: F Source: [place] 1:45 PM [facility] REPOSITORY TYPE CODE TESTS RESULT OUT OF [...] MPV 8.9 Performed By: #### L100.0500 #### [facility] [address] [place], [address] PROGRESS Observed: 02/27/2018 Status: COMPLETED Source: [place] 11:33 AM [facility] [place] REPOSITORY HNO ID: [id number] Author: Omar Gross Service: (none) Author Type: Physician Type: Progress Notes Filed: 02/27/2018 12:24 PM Note Text: Diagnosis: 1) Ovarian cancer. HPI: The patient is a 63 year old female who presented to her PCP prior to a trip to [facility] for vaccinations. She reported that [...] Taxol x 6 cycles, completed 05/27/13. 6) Towns/carbo/cassandra x cycles for biopsy proven metastatic disease [...] No jaundice or rash. No petechiae. 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 No focal motor weakness. ASSESSMENT/PLAN: 1) Ovarian cancer. KPS is 90%. Biopsy-proven recurrence. Togiak refractory. -She is tolerating topotecan well thus [...] DO CNOVSP Observed: 02/27/2018 Status: COMPLETED Source: [place] 11:30 AM [facility] REPOSITORY Visit (SP) Office (PRISCILLA) IVA CUEVA ([id number]) 1955 F Date Time Provider Department 02/27/18 11:30 AM OMAR GROSS During your visit today, we recorded the following information about you: Temperature Pulse Blood pressure Weight 98 degrees 89/minute 127/70 88.5 kg Omar Gross DO 02/27/2018 12:24 PM Signed Diagnosis: 1) Ovarian cancer. HPI: The patient is a 63 year old female who presented to her PCP prior to a trip to [facility] for vaccinations. She reported that [...] Taxol x 6 cycles, completed 05/27/13. 6) Towns/carbo/cassandra x cycles for biopsy proven metastatic disease [...] No jaundice or rash. No petechiae. 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 No focal motor weakness. ASSESSMENT/PLAN: 1) Ovarian cancer. KPS is 90%. Biopsy-proven recurrence. Togiak refractory. -She is tolerating topotecan well thus [...] Ania Reed LPN Referring Provider: OMAR GROSS [[id number]] Allergies As of Date: 02/27/2018 Noted Allergy [...] * FLUTICASONE 50 MCG/ACTUATION * Use 1 [place] in each nostril o* ERGOCALCIFEROL (VITAMIN D2) [...] INVALID FOR* Visit Notes: >> Ania Christina (Manager Support Services) MARTELL Reed SunFebruary 27, 2018 11:49 AM Status: Signed Est pt. Discuss recent labs, tx tomorrow Ania Christina Reed LPN Encounter Status:Closed by OMAR GROSS DO on 02/27/18 CBC W/DIFF, AUTOMATED Collected: 02/27/2018 Status: F Source: [place] 9:44 AM [facility] REPOSITORY TYPE CODE TESTS RESULT OUT OF [...] Lymph 1.43 Performed By: #### L100.0100 #### [facility] [address] [place], [address] COMPREHENSIVE METABOLIC Collected: 02/27/2018 Status: F [facility] REPOSITORY TYPE CODE TESTS RESULT OUT OF [...] GAP 7 Performed By: #### L500.4050 #### [facility] [address] [place], [place], [address] CANCER ANTIGEN 125 Collected: 02/27/2018 Status: F Source: [place] 9:44 AM [facility] REPOSITORY TYPE CODE TESTS RESULT OUT OF RANGE REFERENCE UNITS LAB L3100.5000 0.0-38.1 U/mL Normal CA125 27.9 2303 Result Comment: Meghna ECLIA methodology Performed at: [facility] [id number] Crossbar Frame Wirer: Carlo Bass PhD, Phone: [phone] Performed By: #### L3100.5000 #### [facility] (refer to report for specific site) refer to report for address and phone number TYPE AND SCREEN Collected: 02/12/2018 Status: F Source: [place] 12:26 PM [facility] REPOSITORY Order Comment: CMV NEG?* N Give When? [id number] Irradiated? N Leukodepleted? Y Reason for Type AND Screen/Red Cells: ANEMIA TYPE CODE TESTS RESULT OUT OF RANGE REFERENCE UNITS LAB B10.0800 O Normal BLOOD TYPE GEL NEGATIVE LAB B100.4000 Normal Antibody NEGATIVE Screen Performed By: #### B101.7450 #### [facility] [address] [facility] [place], [place], [address] RC Collected: 02/12/2018 Status: F Source: [place] 12:26 PM [facility] REPOSITORY TYPE CODE TESTS RESULT OUT OF REFERENCE UNITS RANGE LAB U100.0000 [id number] TRANSFUSED PRODUCT: T AND S with Crossmatch, Red Cells COUNT: 2 Performed By: #### U100.0000 #### [facility] - refer to report for specific site CBC W/DIFF, AUTOMATED Collected: 02/11/2018 Status: C Source: [place] 11:55 AM [facility] REPOSITORY TYPE CODE TESTS RESULT OUT OF [...] as: February Performed By: #### L100.0100 #### [facility] [place], [address] CBC-COMPLETE BLOOD CNT Collected: 02/04/2018 Status: F Source: [place] 1:45 PM [facility] REPOSITORY TYPE CODE TESTS RESULT OUT OF [...] MPV 9.4 Performed By: #### L100.0500 #### [facility] [address] [place], [address] CBC W/DIFF, AUTOMATED Collected: 01/30/2018 Status: C Source: [place] 12:37 PM [facility] REPOSITORY TYPE CODE TESTS RESULT OUT OF [...] Iman gunderson Performed By: #### L100.0100 #### [facility] [address] [place], [address] COMPREHENSIVE METABOLIC Collected: 01/30/2018 Status: F Source: [facility] 12:37 PM [facility] REPOSITORY TYPE CODE TESTS RESULT OUT OF [...] GAP 7 Performed By: #### L500.4050 #### [facility] [address] [place], [place], [address] CANCER ANTIGEN 125 Collected: 01/30/2018 Status: F Source: [place] 12:37 PM [facility] REPOSITORY TYPE CODE TESTS RESULT OUT OF RANGE REFERENCE UNITS LAB L3100.5000 0.0-38.1 U/mL Normal CA125 25.0 2303 Result Comment: Xunlei ECLIA methodology Performed at: - [facility] [id number] Crossbar Frame Wirer: Carlo Bass PhD, Phone: [phone] Performed By: #### L3100.5000 #### [facility] (refer to report for specific site) refer to report for address and phone number CBC W/DIFF, AUTOMATED Collected: 01/14/2018 Status: F Source: [place] 11:40 AM [facility] REPOSITORY TYPE CODE TESTS RESULT OUT OF [...] Lymph 1.47 Performed By: #### L100.0100 #### [facility] [address] [place] [address], [id number] PROGRESS Observed: 01/09/2018 Status: COMPLETED Source: [place] 4:02 PM [facility] [place] REPOSITORY HNO ID: [id number] Author: Omar Gross Service: (none) Author Type: Physician Type: Progress Notes Filed: 01/11/2018 9:47 AM Note Text: Diagnosis: 1) Ovarian cancer. HPI: The patient is a 62 year old female who presented to her PCP prior to a trip to [facility] for vaccinations. She reported that [...] Taxol x 6 cycles, completed 05/27/13. 6) Towns/carbo/cassandra x cycles for biopsy proven metastatic disease [...] No jaundice or rash. No petechiae. 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 No focal motor weakness. ASSESSMENT/PLAN: 1) Ovarian cancer. KPS is 90%. Biopsy-proven recurrence. Togiak refractory. -She is tolerating topotecan well thus far. -CA125 trending down. -Symptomatic anemia requiring transfusion. Plan: -Cycle #4 topotecan on Sunday 01/14 pending CBC results that day. -Decrease Neupogen to 7 days post cycle. -CT C/A/P pending CA125 trend. -Continue olanzapine. -Somatic BRCA mutation analysis negative. Omar Gross DO CNOVSP Observed: 01/09/2018 Status: COMPLETED Source: [place] 4:00 PM [facility] REPOSITORY Visit (SP) Office (HEMAWS) IVA CUEVA ([id number]) 1955 F Date Time Provider Department 01/09/18 [...] her PCP prior to a trip to [facility] for vaccinations. She reported that [...] Taxol x 6 cycles, completed 05/27/13. 6) Towns/carbo/cassandra x cycles for biopsy proven metastatic disease [...] No jaundice or rash. No petechiae. 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 No focal motor weakness. ASSESSMENT/PLAN: 1) Ovarian cancer. KPS is 90%. Biopsy-proven recurrence. Togiak refractory. -She is tolerating topotecan well thus far. -CA125 trending down. -Symptomatic anemia requiring transfusion. Plan: -Cycle #4 topotecan on Sunday 01/14 pending CBC results that day. -Decrease Neupogen to 7 days post cycle. -CT C/A/P pending CA125 trend. -Continue olanzapine. -Somatic BRCA mutation analysis negative. Omar Gross DO Referring Provider: OMAR GROSS [[id number]] Allergies As of Date: 01/09/2018 Noted Allergy [...] * FLUTICASONE 50 MCG/ACTUATION * Use 1 [place] in each nostril o* ERGOCALCIFEROL (VITAMIN D2) [...] 01/09/2018 Status: C Source: [place] 10:12 AM [facility] REPOSITORY TYPE CODE TESTS RESULT OUT OF [...] Iman gunderson Performed By: #### L100.0100 #### [facility] [place], [place], [address] COMPREHENSIVE METABOLIC Collected: 01/09/2018 Status: F Source: [facility] 10:12 AM [facility] REPOSITORY TYPE CODE TESTS RESULT OUT OF [...] GAP 6 Performed By: #### L500.4050 #### [facility] [address] [place] [address], [id number] CANCER ANTIGEN 125 Collected: 01/09/2018 Status: F Source: [place] 10:12 AM [facility] REPOSITORY TYPE CODE TESTS RESULT OUT OF RANGE REFERENCE UNITS LAB L3100.5000 0.0-38.1 U/mL Normal CA125 25.2 2303 Result Comment: Meghna ECLIA methodology Performed at: - [facility] [address] [id number] Crossbar Frame Wirer: Carlo Bass PhD, Phone: [phone] Performed By: #### L3100.5000 #### [facility] (refer to report for specific site) refer to report for address and phone number TYPE AND SCREEN Collected: 01/02/2018 Status: F Source: [place] 4:21 PM [facility] REPOSITORY Order Comment: CMV NEG?* N Give When? When Ready Irradiated? N Leukodepleted? Y Reason for Type AND Screen/Red Cells: ANEMIA TYPE CODE TESTS RESULT OUT OF RANGE REFERENCE UNITS LAB B10.0800 O Normal BLOOD TYPE GEL NEGATIVE LAB B100.4000 Normal Antibody NEGATIVE Screen Performed By: #### B101.7450 #### [facility] [address] [place], [place] [address], [place], [address] Collected: 01/02/2018 Status: F Source: 4:21 PM [facility] REPOSITORY TYPE CODE TESTS RESULT OUT OF REFERENCE UNITS RANGE LAB U100.0000 [id number] TRANSFUSED PRODUCT: T AND S with Crossmatch, Red Cells COUNT: 2 Performed By: #### U100.0000 #### [facility] - refer to report for specific site CBC W/DIFF, AUTOMATED Collected: 01/02/2018 Status: F Source: 11:27 AM [facility] REPOSITORY TYPE CODE TESTS RESULT OUT OF [...] Normal RARE Performed By: #### L100.0100 #### [facility] [address] [place], [place], [id number] CBC W/DIFF, AUTOMATED Collected: 12/24/2017 Status: C Source: [place] 1:00 PM [facility] REPOSITORY TYPE CODE TESTS RESULT OUT OF [...] February jalyn Performed By: #### L100.0100 #### [facility] [place], [address] CNOVSP Observed: 12/19/2017 Status: COMPLETED Source: [place] 11:50 AM [facility] REPOSITORY Visit (SP) Office (HEMAWS) IVA CUEVA ([id number]) 1955 F Date Time Provider Department 12/19/17 11:50 AM OMAR GROSS During your visit today, we recorded the following information about you: Temperature Pulse Blood pressure Weight 98 degrees 106/minute 131/83 87.1 kg Omar Gross DO 12/19/2017 12:39 PM Signed Diagnosis: 1) Ovarian cancer. HPI: The patient is a 62 year old female who presented to her PCP prior to a trip to [facility] for vaccinations. She reported that [...] Taxol x 6 cycles, completed 05/27/13. 6) Towns/carbo/cassandra x cycles for biopsy proven metastatic disease [...] No jaundice or rash. No petechiae. 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 No focal motor weakness. ASSESSMENT/PLAN: 1) Ovarian cancer. KPS is 90%. Biopsy-proven recurrence. Togiak refractory. -She is tolerating topotecan well thus [...] Ania Reed LPN Referring Provider: OMAR GROSS [[id number]] Allergies As of Date: 12/19/2017 Noted Allergy [...] TABLET Take 400 mg by mouth once nilad* HYDROCODONE-HOMATROPINE 5 MG-* Take 5 mL by mouth every 4 ho* DEXAMETHASONE 4 MG TABLET Take 1 tablet twice the day p* ONDANSETRON HCL 8 MG TABLET Take 1 tablet by mouth every * FLUTICASONE 50 MCG/ACTUATION * Use 1 [place] in each nostril o* ERGOCALCIFEROL (VITAMIN D2) [...] 12/19/17 PROGRESS Observed: 12/19/2017 Status: COMPLETED Source: [place] 11:44 AM [facility] REPOSITORY O ID: [id number] Author: Omar Gross Service: (none) Author Type: Physician Type: Progress Notes Filed: 12/19/2017 12:39 PM Note Text: Diagnosis: 1) Ovarian cancer. HPI: The patient is a 62 year old female who presented to her PCP prior to a trip to [facility] for vaccinations. She reported that [...] Taxol x 6 cycles, completed 05/27/13. 6) Towns/carbo/cassandra x cycles for biopsy proven metastatic disease [...] No jaundice or rash. No petechiae. 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 No focal motor weakness. ASSESSMENT/PLAN: 1) Ovarian cancer. KPS is 90%. Biopsy-proven recurrence. Togiak refractory. -She is tolerating topotecan well thus [...] NRBC PANEL Collected: 12/19/2017 Status: F Source: [place] 10:55 AM [facility] REPOSITORY Order Comment: CRITICAL VALUE VERIFIED. CALLED TO MALLORY AT 'S OFFICE 12/19/17 1117 Tiki Tran. RESULTS READ BACK BY SAME . TYPE CODE TESTS RESULT OUT OF RANGE REFERENCE UNITS LAB L100.4450 0-5 % Normal NRBC, FLAGGED 0.3 LAB L100.4455 0-5 10 3/uL Normal NRBC # 0.21 Performed By: #### L100.4425, L100.0100 #### [facility] [address] [place], [place], [address] CBC W/DIFF, AUTOMATED Collected: 12/19/2017 Status: C Source: [place] 10:55 AM [facility] REPOSITORY Order Comment: CRITICAL VALUE VERIFIED. CALLED [...] gunderson Performed By: #### L100.4425, L100.0100 #### [facility] [address] [place], [address] COMPREHENSIVE METABOLIC Collected: 12/19/2017 Status: F Source: [facility] 10:55 AM [facility] REPOSITORY TYPE CODE TESTS RESULT OUT OF [...] GAP 10 Performed By: #### L500.4050 #### [facility] [address] [place], [place], [address] CANCER ANTIGEN 125 Collected: 12/19/2017 Status: F Source: [place] 10:55 AM [facility] REPOSITORY TYPE CODE TESTS RESULT OUT OF RANGE REFERENCE UNITS LAB L3100.5000 0.0-38.1 U/mL Normal CA125 34.6 2303 Result Comment: Xunlei ECLIA methodology Performed at: - [facility] [id number] Crossbar Frame Wirer: Carlo Bass PhD, Phone: [phone] Performed By: #### L3100.5000 #### [facility] (refer to report for specific site) refer to report for address and phone number CBC W/DIFF, AUTOMATED Collected: 12/13/2017 Status: F Source: [place] 11:36 AM [facility] REPOSITORY TYPE CODE TESTS RESULT OUT OF [...] HYPOCHROMASIA 1+ Performed By: #### L100.0100 #### [facility] [address] [facility] [place], [address] CTA CHEST W/WO Observed: 12/06/2017 Status: F Source: [place] 3:51 PM [facility] REPOSITORY [facility] [address] [place] [address] CTA Chest W/WO Contrast MR#: [id number] Acct: [id number] Name: IVA CUEVA Rep #: [id number] : 1955 F 62 From: Maura Ordaz MD PCP: Peter Deras MD Status: REG CLI Study: CTA Chest W/WO Contrast Date of Exam: 12/06/17 Exam# [id number] Ordering Dr: Omar Gross DO STUDY: CTA [...] CC: Peter Deras MD; Omar Gross DO Hydrogenation Still Operator: Signed CBC-COMPLETE BLOOD CNT Collected: 12/06/2017 Status: F Source: [place] 1:50 PM [facility] REPOSITORY TYPE CODE TESTS RESULT OUT OF [...] MPV 9.6 Performed By: #### L100.0500 #### [facility] [address] [facility] [place], [address] [facility] SEND OUT TEST Collected: 12/05/2017 Status: F Source: [place] 8:04 PM [facility] REPOSITORY TYPE CODE TESTS RESULT OUT OF REFERENCE UNITS RANGE LAB NAME1 TUMOR Test BRACANALYSIS LAB RESU1 View results Test Results in Scanned Documents link when available. Performed By: #### [id number] #### [facility] [address] [place], [place] [address] CBC W/DIFF, AUTOMATED Collected: 12/03/2017 Status: C Source: [place] 12:15 PM [facility] REPOSITORY TYPE CODE TESTS RESULT OUT OF [...] Lymph 2.30 Performed By: #### L100.0100 #### [facility] [address] [place] [address]. [place], [address] PROGRESS Observed: 11/28/2017 Status: COMPLETED Source: [place] 5:41 PM [facility] REPOSITORY HNO ID: [id number] Author: Omar Gross Service: (none) Author Type: Physician Type: Progress Notes Filed: 11/28/2017 5:45 PM Note Text: Diagnosis: 1) Ovarian cancer. HPI: The patient is a 62 year old female who presented to her PCP prior to a trip to [facility] for vaccinations. She reported that [...] Taxol x 6 cycles, completed 05/27/13. 6) Towns/carbo/cassandra x cycles for biopsy proven metastatic disease [...] No jaundice or rash. No petechiae. 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 No focal motor weakness. ASSESSMENT/PLAN: 1) Ovarian cancer. KPS is 90%. Biopsy-proven recurrence. Togiak refractory. -She is tolerating topotecan well thus far. -Previous discussed rationale for testing biopsy specimen from 2014 for somatic BRCA mutation. [facility] didn't have enough tissue. Plan: -Cycle #2 topotecan on Sunday 12/03 pending CBC results that day. -Neupogen x10 days post cycle. -CT C/A/P prior to cycle #4 or sooner pending CA125 trend. -Continue olanzapine. -Somatic mutation of BRCA requested from past specimen in 2012 for [facility]. Omar Gross DO CNOVSP Observed: 11/28/2017 Status: COMPLETED Source: [place] 4:00 PM [facility] REPOSITORY Visit (SP) Office (PRISCILLA) IVA CUEVA ([id number]) 1955 F Date Time Provider Department 11/28/17 4:00 PM OMAR GROSS During your visit today, we recorded the following information about you: Temperature Pulse Blood pressure Weight 98 degrees 99/minute 122/66 87.3 kg Jane James LPN 11/28/2017 4:37 PM Signed Est patient. Labs today at [facility]. Jane Gross DO 11/28/2017 5:45 PM Signed Diagnosis: 1) Ovarian cancer. HPI: The patient is a 62 year old female who presented to her PCP prior to a trip to [facility] for vaccinations. She reported that [...] Taxol x 6 cycles, completed 05/27/13. 6) Towns/carbo/cassandra x cycles for biopsy proven metastatic disease [...] No jaundice or rash. No petechiae. 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 No focal motor weakness. ASSESSMENT/PLAN: 1) Ovarian cancer. KPS is 90%. Biopsy-proven recurrence. [place] refractory. -She is tolerating topotecan well thus far. -Previous discussed rationale for testing biopsy specimen from 2014 for somatic BRCA mutation. [facility] didn't have enough tissue. Plan: -Cycle #2 topotecan on Sunday 12/03 pending CBC results that day. -Neupogen x10 days post cycle. -CT C/A/P prior to cycle #4 or sooner pending CA125 trend. -Continue olanzapine. -Somatic mutation of BRCA requested from past specimen in 2012 for [facility]. Omar Gross DO Referring Provider: OMAR GROSS [[id number]] Allergies As of Date: 11/28/2017 Noted Allergy [...] * FLUTICASONE 50 MCG/ACTUATION * Use 1 [place] in each nostril o* ERGOCALCIFEROL (VITAMIN D2) [...] Status: Signed Est patient. Labs today at [facility]. Jane James LPN Encounter Status:Closed by OMAR GROSS DO on 11/28/17 CBC W/DIFF, AUTOMATED Collected: 11/28/2017 Status: C Source: [place] 10:31 AM [facility] REPOSITORY TYPE CODE TESTS RESULT OUT OF [...] February jalyn Performed By: #### L100.0100 #### [facility] [address] [place], [address] COMPREHENSIVE METABOLIC Collected: 11/28/2017 Status: F Source: [facility] 10:31 AM [facility] REPOSITORY TYPE CODE TESTS RESULT OUT OF [...] GAP 7 Performed By: #### L500.4050 #### [facility] [address] [place], [place], [address] CANCER ANTIGEN 125 Collected: 11/28/2017 Status: F Source: [place] 10:31 AM [facility] REPOSITORY TYPE CODE TESTS RESULT OUT OF RANGE REFERENCE UNITS LAB L3100.5000 0.0-38.1 U/mL High CA125 92.1 2303 Result Comment: Xunlei ECLIA methodology Performed at: [facility] [facility] [address] [id number] Crossbar Frame Wirer: Carlo Bass PhD, Phone: [phone] Performed By: #### L3100.5000 #### [facility] (refer to report for specific site) refer to report for address and phone number OBSOLETE Observed: 11/26/2017 Status: COMPLETED Source: [place] 12:00 AM [facility] REPOSITORY Refill (HEMAWS) IVA CUEVA ([id number]) 1955 F Date Time Provider Department 11/26/17 [...] * FLUTICASONE 50 MCG/ACTUATION * Use 1 [place] in each nostril o* ERGOCALCIFEROL (VITAMIN D2) [...] REACTION SEVERITY SOURCE Drug hydrocodone Itching Unknown [place] 8 Allergy/038220339( bitartrate/F0000 [facility]) [address](RXNORM) Hospital Repository Drug tramadol Itching Unknown [place] 8 Allergy/885899529( HCl/G801335259(R [facility]) XNORM) Hospital Repository Drug codeine/N1681061 Itching Unknown [place] 8 Allergy/036000824( 50(RXNORM) [facility] SN[facility]) Hospital Repository Drug oxycodone/X12697 Itching Unknown [place] 8 Allergy/122226787( 1558(RXNORM) [facility] SN[facility]) Hospital Repository Drug acetaminophen/F0 Itching Unknown [place] 8 Allergy/653799189( 00830036(RXNORM) [facility]) Hospital Repository DRUG/354285734(SNO OXYCODONE-ACETAM ITCHING [place] [address]) INOPHEN Clinic Main [place] Repository DRUG TRAMADOL HCL ITCHING [place] 3 INGREDI/250920570( Clinic Main SNOMED CT) [place] Repository DRUG/194184868(SNO HYDROCODONE-ACET ITCHING [place] [address]) AMINOPHEN Clinic Main [place] Repository Miscellaneous OTHER [place] 7 Allergy/003420201( [facility] Main SNOMED CT) [place] Repository DRUG CODEINE INTOLERANCE [place] 7 INGREDI/270166403( [facility] Main SNOMED CT) [place] Repository ENCOUNTERS ENCOUNTERS ADMIT/DISCHARGE ACCOUNT ADMITTING ENCOUNTER LOCATION SOURCE NUMBER CLASS 11/20/2018 [id number] [facility] ing:MEDOUTP Repository 11/19/2018 [id number] [facility] ing:MEDOUTP Repository 11/04/2018 [id number] [facility] [facility] Main [place] Repository 11/01/2018/11/01/19 [id number] Ambulatory [place] 19 [facility] Main [place] Repository 10/29/2018 [id number] [facility] ing:LAB Repository 10/28/2018/10/28/20 [id number] Ambulatory [place] 18 [facility] Main [place] Repository 10/28/2018/10/28/20 [id number] Ambulatory [address] Repository 10/28/2018 [id number] [facility] ing:MEDOUTP Repository 10/25/2018/10/25/[id number] ing:LAB Repository 10/24/2018/10/25/20 [id number] Ambulatory [address] Repository 10/11/2018 [id number] Ambulatory [facility] Hospital ing:MEDOUTP Repository 10/10/2018 [id number] [facility] Repository 10/09/2018 [id number] [facility] Repository 10/08/2018 [id number] [facility] ing[facility] Repository 10/07/2018 [id number] [facility] [place] [facility] ing:MED[facility]P Repository 09/26/2018 [id number] [facility] ing:OPUS Repository 09/17/2018/09/17/20 [id number] Ambulatory BMSBuilding:B [place] 18 [facility] Repository 09/13/2018 [id number] [facility] ing:MED[facility]P Repository 09/12/2018 [id number] [facility] ing:MED[facility]P Repository 09/11/2018 [id number] [facility] ing:MED[facility]P Repository 09/10/2018 [id number] [facility] ing:MED[facility]P Repository 09/09/2018 [id number] [facility] ing:MED[facility]P Repository 08/30/2018/09/02/20 [id number] Ambulatory [place] [place] Repository 08/26/2018/08/26/20 [id number] Ambulatory [place] [facility] HospitalBuild Hospital ing:LAB Repository 08/06/2018 [id number] [facility] ing:MEDOUTP Repository 08/02/2018 [id number] [facility] ing:[facility] Repository 08/01/2018 [id number] [facility] ing:MED[facility]P Repository 07/31/2018 [id number] [facility] ing:MED[facility]P Repository 07/30/2018 [id number] Ambulatory [place] [facility] Hospital ing:MEDOUTP Repository 07/29/2018 [id number] [facility] ing:MED[facility]P Repository 07/23/2018/07/23/20 [id number] Ambulatory [place] [facility] [address] [place] [address] HospitalBuild Hospital ing:LAB Repository 07/12/2018 [id number] [facility] [place] [facility] ing:MED[facility]P Repository 07/11/2018 [id number] [facility] ing:MEDOUTP Repository 07/10/2018 [id number] [facility] ing:MEDOUTP Repository 07/09/2018 [id number] [facility] [place] [facility] ing:MEDOUTP Repository 07/08/2018 [id number] [facility] ing:MEDOUTP Repository 07/04/2018/07/05/20 [id number] Ambulatory [address] Main [place] Repository 06/26/2018/06/26/20 [id number] Ambulatory [place] [facility] [address] [place] [address] HospitalBuild Hospital ing:LAB Repository 06/21/2018 [id number] [facility] [place] [facility] ing:MEDOUTP Repository 06/20/2018 [id number] [facility] ing:[facility]P Repository 06/19/2018 [id number] [facility] ing:MEDOUTP Repository 06/18/2018 [id number] Ambulatory [place] [facility] Hospital ing:MEDOUTP Repository 06/17/2018 [id number] Ambulatory [place] [facility] Hospital ing:MEDOUTP Repository 06/13/2018/06/14/20 [id number] Ambulatory [address] Main [place] Repository 05/24/2018 [id number] [facility] [place] ing:MEDOUTP Repository 05/23/2018 [id number] [facility] [place] [facility] ing:MED[facility]P Repository 05/22/2018 [id number] [facility] ing:MEDOUTP Repository 05/21/2018 [id number] [facility] [place] [facility] ing:MED[facility]P Repository 05/20/2018 [id number] [facility] [place] [facility] ing:MEDOUTP Repository 05/18/2018/05/18/20 [id number] Ambulatory [place] [facility] HospitalBuild Hospital ing:LAB Repository 04/29/2018/04/29/20 [id number] Ambulatory [place] 18 [facility] Main [place] Repository 04/29/2018/04/29/20 [id number] Ambulatory [place] 18 [facility] Main [place] Repository 04/29/2018/05/03/20 [id number] Ambulatory [place] 18 [facility] Main [place] Repository 04/29/2018/04/29/20 [id number] Ambulatory [place] 18 [facility] Main [place] Repository 04/18/2018/04/22/20 [id number] Ambulatory [address] Main [place] Repository 04/16/2018/04/16/20 [id number] Ambulatory [place] [facility] [address] [place] [address] HospitalBuild Hospital ing:LAB Repository 04/12/2018/04/13/20 [id number] Ambulatory [address] Main [place] Repository 04/06/2018/04/06/20 [id number] Ambulatory [place] [facility] [address] [place] [address] HospitalBuild Hospital ing:MEDOUTP Repository 04/05/2018 [id number] [facility] ing:[facility] Repository 04/04/2018 [id number] [facility] [place] [facility] ing:MED[facility]P Repository 04/03/2018 [id number] [facility] ing:MEDOUTP Repository 04/02/2018 [id number] [facility] [place] [facility] ing:MEDOUTP Repository 03/29/2018/04/01/20 [id number] Ambulatory [address] Main [place] Repository 03/27/2018/03/27/20 [id number] Ambulatory [place] [facility] [address] [place] [address] HospitalBuild Hospital ing:LAB Repository 03/08/2018 [id number] [facility] [place] [facility] ing:MED[facility]P Repository 03/07/[id number] [facility] HospitalBuild Hospital ing:MEDOUTP Repository 03/06/2018 [id number] [facility] ing:MED[facility]P Repository 03/05/2018 [id number] [facility] ing:MEDOUTP Repository 03/04/2018 [id number] [facility] ing:MEDOUTP Repository 02/27/2018/02/29/20 [id number] Ambulatory [address] Repository 02/13/2018 [id number] [facility] [place] [facility] ing:MEDOUTP Repository 02/11/2018/02/12/20 [id number] Ambulatory [place] [facility] HospitalBuild Hospital ing:LAB Repository 02/08/2018 [id number] [facility] ing:MED[facility]P Repository 02/07/[id number] [facility] HospitalBuild Hospital ing:MEDOUTP Repository 02/06/2018 [id number] [facility] ing:MEDOUTP Repository 02/05/2018 [id number] [facility] ing:MEDOUTP Repository 02/04/2018 [id number] [facility] ing:MEDOUTP Repository 01/18/2018 [id number] [facility] ing:MEDOUTP Repository 01/17/2018 [id number] [facility] ing:MEDOUTP Repository 01/16/2018 [id number] [facility] ing:MEDOUTP Repository 01/15/2018 [id number] [facility] ing:MEDOUTP Repository 01/14/2018 [id number] [facility] ing:MED[facility]P Repository 01/09/2018/01/12/20 [id number] Ambulatory [address] Repository 01/09/2018/01/10/20 [id number] Ambulatory [place] [facility] [address] [place] [address] HospitalBuild Hospital ing:LAB Repository 01/03/2018 [id number] [facility] ing:MED[facility]P Repository 12/28/2017 [id number] [facility] ing:MEDOUTP Repository 12/27/2017 [id number] [facility] ing:MEDOUTP Repository 12/26/2017 [id number] [facility] ing:MEDOUTP Repository 12/25/2017 [id number] [facility] ing:MEDOUTP Repository 12/24/2017 [id number] [facility] ing:MEDOUTP Repository 12/19/2017/12/19/19 [id number] Ambulatory [address] Repository 12/19/2017/12/19/19 [id number] Ambulatory [facility] HospitalBuild Hospital ing:LAB Repository 12/07/2017 [id number] [facility] ing:MED[facility]P Repository 12/06/2017 [id number] [facility] ing:MEDOUTP Repository 12/05/2017 [id number] [facility] ing:MEDOUTP Repository 12/04/2017 [id number] [facility] ing:MEDOUTP Repository 12/03/2017 [id number] [facility] ing:MEDOUTP Repository 11/28/2017/11/29/19 [id number] Ambulatory [address] [place] Repository 11/28/2017/11/28/19 [id number] Ambulatory [place] [facility] [facility] Hospital ing:LAB Repository PAYERS PAYERS ENCOUNTER GUARANTOR PAYER SUBSCRIBER SOURCE 11/20/2018 IVA Cottrell Primary IVA L [place] [id number] [place] Insurance:MEDICAL MAIBACHDOB: [facility] [id number] View [facility] [address]Lfi: Number: Repository [id number] (HP) Date:7686-06-02QM [address] [address]AN: 11/20/2018 Secondary NOT GIVENUNK [place] Insurance:SELF PAY [facility] Number: Effective Repository Date:2018-11-13 11/19/2018 IVA Jhontahan Primary IVA L [place] [id number] [place] Insurance:MEDICAL MAIBACHDOB: [facility] [id number] View Regional Medical Center [address]Upc: Number: Repository [id number] (HP) Date:4416-56-98GW [place] [address]WP: 11/19/2018 Secondary NOT GIVENUNK [place] Insurance:SELF PAY [facility] Number: Effective Repository Date:2018-11-13 10/29/2018 IVA L Primary IVA L [place] [id number] [place] Insurance:MEDICAL MAIBACHDOB: [facility] [id number] View Regional Medical Center [address]Mzu: Number: Repository [id number] (HP) Date:3213-46-90NY [place] [address]WP: 10/29/2018 Secondary NOT GIVENUNK [place] Insurance:SELF PAY [facility] Number: Effective Repository Date:2018-10-28 10/28/2018 JOSÉ MIGUEL Markham Primary IAV L [place] [id number] [place] Insurance:MEDICAL MAIBACHDOB: [facility] [id number] View Regional Medical Center [address]Cnx: Number: Repository [id number] (HP) Date:2270-04-69TE [address] [address]WS: 10/28/2018 Secondary NOT GIVENUNK [place] Insurance:SELF PAY [facility] Number: Effective Repository Date:2018-09-17 10/25/2018 JOSÉ MIGUEL Markham Primary IVA Goldbergoster [id number] [place] Insurance:MEDICAL MAIBACHDOB: [facility] [id number] View Regional Medical Center [address]Gpt: Number: Repository [id number] (HP) Date:8531-30-90RV [place] [address]WP: 10/25/2018 Secondary NOT GIVENUNK [place] Insurance:SELF PAY [facility] Number: Effective Repository Date:2018-08-29 10/11/2018 IVA Cottrell Primary IVA Jhonathan [place] [id number] [place] Insurance:MEDICAL MAIBADOB: [facility] [id number] View Regional Medical Center [address]Ksy: Number: Repository [id number] (HP) Date:5874-60-32ZY [place] [address]WP: 10/11/2018 Secondary NOT GIVENUNK [place] Insurance:SELF PAY [facility] Number: Effective Repository Date:2018-09-17 10/10/2018 IVA Jhontahan Primary IVA Jhonathan GoldbergCasa [id number] [place] Insurance:MEDICAL MAIBACHDOB: [facility] [id number] View Regional Medical Center [address]Ila: Number: Repository [id number] (HP) Date:6022-78-01CJ [place] [address]01[address]WP: 10/10/2018 Secondary NOT GIVENUNK [place] Insurance:SELF PAY [facility] Number: Effective Repository Date:2018-09-17 10/09/2018 IVA Jhonathan Primary IVA Jhonathan GoldbergCasa [id number] [place] Insurance:MEDICAL MAIBACHDOB: [facility] [id number] Hospital [place] [address]Nyh: Number: Repository [id number] (HP) Date:7712-36-09EM [address] [address]EJ: 10/09/2018 Secondary NOT GIVENUNK [place] Insurance:SELF PAY [facility] Number: Effective Repository Date:2018-09-17 10/08/2018 IVA L Primary IVA L [place] [id number] [place] Insurance:MEDICAL ILIBACHDOB: [facility] [id number] View Regional Medical Center [address]Pav: Number: Repository [id number] (HP) Date:3985-75-11QD [address] [address]EI: 10/08/2018 Secondary NOT GIVENUNK [place] Insurance:SELF PAY [facility] Number: Effective Repository Date:2018-09-17 10/07/2018 JOSÉ MIGUEL Markham Primary IVA L [place] [id number] [place] Insurance:MEDICAL MAIBACHDOB: [facility] 0523-02-51PRJMountain View Regional Medical Center [address]Muh: Number: Repository [id number] (HP) Date:0287-85-19TV [place] [address]01[address]WP: 10/07/2018 Secondary NOT GIVENUNK [place] Insurance:SELF PAY [facility] Number: Effective Repository Date:2018-09-17 09/26/2018 IVA L Primary IVA L [place] [id number] [place] Insurance:MEDICAL MAIBADOB: [facility] [id number] View Regional Medical Center [address]Dao: Number: Repository [id number] (HP) Date:5128-43-75TT [address] [address]OF: 09/26/2018 Secondary NOT GIVENUNK [place] Insurance:SELF PAY [facility] Number: Effective Repository Date:2018-09-18 09/17/2018 IVA L Primary IVA L [place] [id number] [place] Insurance:MEDICAL MAIBACHDOB: [facility] [id number] View Regional Medical Center [address]Qge: Number: Repository [id number] (HP) Date:6871-08-86KP [place] [address]WP: 09/17/2018 Secondary NOT GIVENUNK [place] Insurance:SELF PAY [facility] Number: Effective Repository Date:2018-09-17 09/13/2018 JOSÉ MIGUEL Markham Primary IVA Larry [id number] [place] Insurance:MEDICAL MAIBACHDOB: [facility] 0821-11-92ADYMountain View Regional Medical Center [address]Tbi: Number: Repository [id number] (HP) Date:7630-07-48CG [place] [address]01[address]WP: 09/13/2018 Secondary NOT GIVENUNK [place] Insurance:SELF PAY [facility] Number: Effective Repository Date:2018-09-05 09/12/2018 JOSÉ MIGUEL Markham Primary IVA Larry [id number] [place] Insurance:MEDICAL MAIBACHDOB: [facility] [id number] View Regional Medical Center [address]Gyc: Number: Repository [id number] (HP) Date:6689-43-00NQ [place] 00[address]01[address]WP: 09/12/2018 Secondary NOT GIVENUNK [place] Insurance:SELF PAY [facility] Number: Effective Repository Date:2018-09-05 09/11/2018 JOSÉ MIGUEL Markham Primary IVA Larry [id number] [place] Insurance:MEDICAL MAIBACHDOB: [facility] [id number] [place] [address]Kuc: Number: Repository [id number] (HP) Date:9393-27-27PF [address] [address]MI: 09/11/2018 Secondary NOT GIVENUNK [place] Insurance:SELF PAY [facility] Number: Effective Repository Date:2018-09-05 09/10/2018 JOSÉ MIGUEL Markham Primary IVA Larry [id number] [place] Insurance:MEDICAL MAIBACHDOB: [facility] [id number] View Regional Medical Center [address]Elu: Number: Repository [id number] (HP) Date:2236-41-24EL [place] [address]01[address]WP: 09/10/2018 Secondary NOT GIVENUNK [place] Insurance:SELF PAY [facility] Number: Effective Repository Date:2018-09-05 09/09/2018 JOSÉ MIGUEL Rashi Primary IVA Jhonathan Larry [id number] [place] Insurance:MEDICAL MAIBACHDOB: [facility] [id number] View Regional Medical Center [address]Kpk: Number: Repository [id number] (HP) Date:1900-32-78FX [place] [address]01[address]WP: 09/09/2018 Secondary NOT GIVENUNK [place] Insurance:SELF PAY [facility] Number: Effective Repository Date:2018-09-05 08/26/2018 JOSÉ MIGUEL Markham Primary IVA Larry [id number] [place] Insurance:MEDICAL MAIBACHDOB: [facility] [id number] View Regional Medical Center [address]Ivc: Number: Repository [id number] (HP) Date:8721-77-56JH [address] [address]YQ: 08/26/2018 Secondary NOT GIVENUNK [place] Insurance:SELF PAY [facility] Number: Effective Repository Date:2018-07-31 08/06/2018 JOSÉ MIGUEL Mark[place] Primary IVA Jhonathan Larry [id number] [place] Insurance:MEDICAL MAIBACHDOB: [facility] [id number] Hospital [place] [address]Shq: Number: Repository [id number] (HP) Date:1129-46-07JU [address] [place] [address]DH: 08/06/2018 Secondary NOT GIVENUNK [place] Insurance:SELF PAY [facility] Number: Effective Repository Date:2018-08-05 08/02/2018 JOSÉ MIGUEL J Primary IVA Jhonathan Larry [id number] [place] Insurance:MEDICAL MAIBACHDOB: [facility] [id number] View Regional Medical Center [address]Bgv: Number: Repository [id number] (HP) Date:8163-94-44JY [address] [place], [place] [address]WP: 08/02/2018 Secondary NOT GIVENUNK [place] Insurance:SELF PAY [facility] Number: Effective Repository Date:2018-07-26 08/01/2018 JOSÉ MIGUEL Markham Primary IVA Cottrell [place] [id number] [place] Insurance:MEDICAL MAIBACHDOB: [facility] [id number] View Regional Medical Center [address]Iwa: Number: Repository [id number] (HP) Date:4458-73-59GH [address] [place], [place] [address]WP: 08/01/2018 Secondary NOT GIVENUNK [place] Insurance:SELF PAY [facility] Number: Effective Repository Date:2018-07-26 07/31/2018 JOSÉ MIGUEL J Primary IVA Jhonathan Larry [id number] [place] Insurance:MEDICAL MAIBACHDOB: [facility] [id number] View Regional Medical Center [address]Jao: Number: Repository [id number] (HP) Date:8036-36-21YY [address] [place], [place] [address]WP: 07/31/2018 Secondary NOT GIVENUNK [place] Insurance:SELF PAY [facility] Number: Effective Repository Date:2018-07-26 07/30/2018 JOSÉ MIGUEL Markham Primary IVA Larry [id number] [place] Insurance:MEDICAL MAIBACHDOB: [facility] 3436-40-14NFBMountain View Regional Medical Center [address]Ttp: Number: Repository [id number] (HP) Date:6072-22-07BX [address] [address]IG: 07/30/2018 Secondary NOT GIVENUNK [place] Insurance:SELF PAY [facility] Number: Effective Repository Date:2018-07-26 07/29/2018 JOSÉ MIGUEL Rashi Primary IVA Larry [id number] [place] Insurance:MEDICAL MAIBACHDOB: [facility] 6631-86-31MMLMountain View Regional Medical Center [address]Qaf: Number: Repository [id number] (HP) Date:2040-08-25GR [address] [address]MP: 07/29/2018 Secondary NOT GIVENUNK [place] Insurance:SELF PAY [facility] Number: Effective Repository Date:2018-07-26 07/23/2018 JOSÉ MIGUEL Markham Estee IVA Larry [id number] [place] Insurance:MEDICAL MAIBACHDOB: [facility] 1388-17-31CBOMountain View Regional Medical Center [address]Gmn: Number: Repository [id number] (HP) Date:7102-09-63NS [address] [address]AX: 07/23/2018 Secondary NOT GIVENUNK [place] Insurance:SELF PAY [facility] Number: Effective Repository Date:2018-07-02 07/12/2018 JOSÉ MIGUEL Markham Primary IVA Jhonathan Larry [id number] [place] Insurance:MEDICAL MAIBACHDOB: [facility] 4727-20-62[place] [facility] [place] [address]Tgk: Number: Repository [id number] (HP) Date:6819-80-52JT [address] [address]NK: 07/12/2018 Secondary NOT GIVENUNK [place] Insurance:SELF PAY [facility] Number: Effective Repository Date:2018-06-21 07/11/2018 JOSÉ MIGUEL Rashi Primary IVA Jhonathan Larry [id number] [place] Insurance:MEDICAL MAIBADOB: [facility] [id number] View Regional Medical Center [address]Jdq: Number: Repository [id number] (HP) Date:6806-38-25MI [place] [address]WP: 07/11/2018 Secondary NOT GIVENUNK [place] Insurance:SELF PAY [facility] Number: Effective Repository Date:2018-06-21 07/10/2018 JOSÉ MIGUEL Markham Primary IVA Cottrell [place] [id number] [place] Insurance:MEDICAL MAIBACHDOB: [facility] 5802-70-24KCDMountain View Regional Medical Center [address]Xls: Number: Repository [id number] (HP) Date:7515-91-30OV [place] 00[address]01[address]WP: 07/10/2018 Secondary NOT GIVENUNK [place] Insurance:SELF PAY [facility] Number: Effective Repository Date:2018-06-21 07/09/2018 JOSÉ MIGUEL Rashi Primary IVA Jhoanthan Larry [id number] [place] Insurance:MEDICAL MAIBACHDOB: [facility] 3216-25-12EVFMountain View Regional Medical Center [address]Ktw: Number: Repository [id number] (HP) Date:3662-84-18IJ [place] 00[address]01[address]WP: 07/09/2018 Secondary NOT GIVENUNK [place] Insurance:SELF PAY [facility] Number: Effective Repository Date:2018-06-21 07/08/2018 JOSÉ MIGUEL Markham Primary IVA Larry [id number] [place] Insurance:MEDICAL MAIBACHDOB: [facility] [id number] View Regional Medical Center [address]Fpj: Number: Repository [id number] (HP) Date:8051-69-63GX [address] [address]EL: 07/08/2018 Secondary NOT GIVENUNK [place] Insurance:SELF PAY [facility] Number: Effective Repository Date:2018-06-21 06/26/2018 JOSÉ MIGUEL Markham Primary IVA Larry [id number] [place] Insurance:MEDICAL MAIBACHDOB: [facility] 4402-90-06QMVMountain View Regional Medical Center [address]Eyd: Number: Repository [id number] (HP) Date:6515-58-88WO [address] [address]IY: 06/26/2018 Secondary NOT GIVENUNK [place] Insurance:SELF PAY [facility] Number: Effective Repository Date:2018-05-30 06/21/2018 JOSÉ MIGUEL Markham Primary IVA Larry [id number] [place] Insurance:MEDICAL MAIBACHDOB: [facility] [id number] [place] [address]Piy: Number: Repository [id number] (HP) Date:8818-64-58SS [address] [address]RP: 06/21/2018 Secondary NOT GIVENUNK [place] Insurance:SELF PAY [facility] Number: Effective Repository Date:2018-05-27 06/20/2018 JOSÉ MIGUEL Rashi Primary IVA Larry [id number] [place] Insurance:MEDICAL MAIBACHDOB: [facility] [id number] View Regional Medical Center [address]Izh: Number: Repository [id number] (HP) Date:1529-21-59RR [address] [address]CA: 06/20/2018 Secondary NOT GIVENUNK [place] Insurance:SELF PAY [facility] Number: Effective Repository Date:2018-05-27 06/19/2018 JOSÉ MIGUEL Markham Primary IVA Jhonathan Larry [id number] [place] Insurance:MEDICAL MAIBACHDOB: [facility] 9447-07-29UNJMountain View Regional Medical Center [address]Gcx: Number: Repository [id number] (HP) Date:7919-63-11WP [place] 00[address]01[address]WP: 06/19/2018 Secondary NOT GIVENUNK [place] Insurance:SELF PAY [facility] Number: Effective Repository Date:2018-05-27 06/18/2018 JOSÉ MIGUEL Rashi Primary IVA Jhonathan Larry [id number] [place] Insurance:MEDICAL MAIBACHDOB: [facility] [id number] View Regional Medical Center [address]Ioi: Number: Repository [id number] (HP) Date:8886-38-91HN [place] 00[address]01[address]WP: 06/18/2018 Secondary NOT GIVENUNK [place] Insurance:SELF PAY [facility] Number: Effective Repository Date:2018-05-27 06/17/2018 JOSÉ MIGUEL Markham Primary IVA Jhonathan Larry [id number] [place] Insurance:MEDICAL MAIBACHDOB: [facility] [id number] View Regional Medical Center [address]Dnb: Number: Repository [id number] (HP) Date:9374-59-88YC [place] 00[address]01[address]WP: 06/17/2018 Secondary NOT GIVENUNK [place] Insurance:SELF PAY [facility] Number: Effective Repository Date:2018-05-24 05/24/2018 José Miguel Markham Primary IVA Larry [id number] [place] Insurance:MEDICAL MAIBACHDOB: [facility] 7490-44-12DFIMountain View Regional Medical Center [address]Axb: Number: Repository [id number] (HP) Date:4883-14-26BS [place] 00[address]01[address]WP: 05/24/2018 Secondary NOT GIVENUNK [place] Insurance:SELF PAY [facility] Number: Effective Repository Date:2018-04-18 05/23/2018 José Miguel Markham Primary IVA Larry [id number] [place] Insurance:MEDICAL MAIBACHDOB: [facility] [id number] View Regional Medical Center [address]Eef: Number: Repository [id number] (HP) Date:4305-10-40XS [place] 0070901[address]WP: 05/23/2018 Secondary NOT GIVENUNK [place] Insurance:SELF PAY [facility] Number: Effective Repository Date:2018-04-18 05/22/2018 José Miguel Markham Primary IVA Larry [id number] [place] Insurance:MEDICAL MAIBACHDOB: [facility] 5426-38-29CVOMountain View Regional Medical Center [address]Frw: Number: Repository [id number] (HP) Date:7299-19-49IM [place] 0070901[address]WP: 05/22/2018 Secondary NOT GIVENUNK [place] Insurance:SELF PAY [facility] Number: Effective Repository Date:2018-04-18 05/21/2018 José Miguel Markham Primary IVA Jhonathan Larry [id number] [place] Insurance:[facility] [id number] View Regional Medical Center [address]Xjs: Number: Repository [id number] (HP) Date:7402-42-23NR [address] [address]AV: 05/21/2018 Secondary NOT GIVENUNK [place] Insurance:SELF PAY [facility] Number: Effective Repository Date:2018-04-18 05/20/2018 José Miguel Markham Primary IVA Jhonathan Larry [id number] [place] Insurance:MEDICAL MAIBACHDOB: [facility] [id number] View Regional Medical Center [address]Plz: Number: Repository [id number] (HP) Date:8509-43-53QC [address] [address]RI: 05/20/2018 Secondary NOT GIVENUNK [place] Insurance:SELF PAY [facility] Number: Effective Repository Date:2018-04-18 05/18/2018 José Miguel Markham Primary IVA Jhonathan Larry [id number] [place] Insurance:MEDICAL MAIBACHDOB: [facility] [id number] View Regional Medical Center [address]Nbw: Number: Repository [id number] (HP) Date:8198-39-07UZ [address] [address]XH: 05/18/2018 Secondary NOT GIVENUNK [place] Insurance:SELF PAY [facility] Number: Effective Repository Date:2018-04-26 04/16/2018 José Miguel Rashi Primary IVA Jhonathan Larry [id number] [place] Insurance:MEDICAL MAIBADOB: [facility] [id number] View Regional Medical Center [address]Doj: Number: Repository [id number] (HP) Date:0999-96-55LW [address] [address]LG: 04/16/2018 Secondary NOT GIVENUNK [place] Insurance:SELF PAY [facility] Number: Effective Repository Date:2018-03-28 04/06/2018 José Miguel Markham Primary IVA Larry [id number] [place] Insurance:MEDICAL MAIBACHDOB: [facility] 1316-38-42UURMountain View Regional Medical Center [address]Tck: Number: Repository [id number] (HP) Date:5805-90-33TI [address] [place], [place] [address]WP: 04/06/2018 Secondary NOT GIVENUNK [place] Insurance:SELF PAY [facility] Number: Effective Repository Date:2018-03-07 04/05/2018 José Miguel Markham Primary IVA Larry [id number] [place] Insurance:MEDICAL MAIBACHDOB: [facility] [id number] [address]Pyc: Number: Repository [id number] (HP) Date:8711-46-89BM [address] [place], [place] [address]WP: 04/05/2018 Secondary NOT GIVENUNK [place] Insurance:SELF PAY [facility] Number: Effective Repository Date:2018-03-07 04/04/2018 José Miguel Markham Primary IVA Larry [id number] [place] Insurance:MEDICAL MAIBACHDOB: [facility] 1963-47-75EKFMountain View Regional Medical Center [address]Nxq: Number: Repository [id number] (HP) Date:2228-74-70XS [address] [address]KK: 04/04/2018 Secondary NOT GIVENUNK [place] Insurance:SELF PAY [facility] Number: Effective Repository Date:2018-03-07 04/03/2018 José Miguel Markham Primary IVA Larry [id number] [place] Insurance:MEDICAL MAIBACHDOB: [facility] 2036-02-04ECQMountain View Regional Medical Center [address]Nao: Number: Repository [id number] (HP) Date:4840-37-98DX [address] [address]SU: 04/03/2018 Secondary NOT GIVENUNK [place] Insurance:SELF PAY [facility] Number: Effective Repository Date:2018-03-07 04/02/2018 José Miguel Markham Primary IVA Jhonathan Larry [id number] [place] Insurance:MEDICAL MAIBACHDOB: [facility] 3774-30-47ESZMountain View Regional Medical Center [address]Jyf: Number: Repository [id number] (HP) Date:1077-57-43XU [place] 00[address]01[address]WP: 04/02/2018 Secondary NOT GIVENUNK [place] Insurance:SELF PAY [facility] Number: Effective Repository Date:2018-03-07 03/27/2018 José Miguel Markham Primary IVA Jhonathan Larry [id number] [place] Insurance:MEDICAL MAIBACHDOB: [facility] [id number] View Regional Medical Center [address]Pix: Number: Repository [id number] (HP) Date:0184-35-34CG [address] [address]CN: 03/27/2018 Secondary NOT GIVENUNK [place] Insurance:SELF PAY [facility] Number: Effective Repository Date:2018-02-26 03/08/2018 José Miguel Markham Primary IVA Jhonathan Larry [id number] [place] Insurance:MEDICAL MAIBACHDOB: [facility] 6534-22-03ATJMountain View Regional Medical Center [address]Wbd: Number: Repository [id number] (HP) Date:0918-36-44IO [address] [address]CZ: 03/08/2018 Secondary NOT GIVENUNK [place] Insurance:SELF PAY [facility] Number: Effective Repository Date:2018-02-18 03/07/2018 José Miguel Markham Primary IVA Larry [id number] [place] Insurance:MEDICAL MAIBACHDOB: [facility] [id number] [place] [address]Lzf: Number: Repository [id number] (HP) Date:9548-58-76LS [address] [address]NO: 03/07/2018 Secondary NOT GIVENUNK [place] Insurance:SELF PAY [facility] Number: Effective Repository Date:2018-02-18 03/06/2018 José Miguel Markham Primary IVA Larry [id number] [place] Insurance:MEDICAL MAIBACHDOB: [facility] 0099-29-94DNZ [place] [address]Hnb: Number: Repository [id number] (HP) Date:0703-48-54NL [facility] [address] [place] [address]PY: 03/06/2018 Secondary NOT GIVENUNK [place] Insurance:SELF PAY [facility] Number: Effective Repository Date:2018-02-18 03/05/2018 José Miguel Larry [id number] [place] Insurance:MEDICAL MAIBACHDOB: [facility] [id number] [place] [address]Rwc: Number: Repository [id number] (HP) Date:9182-90-83EO [address] [address]ZB: 03/05/2018 Secondary NOT GIVENUNK [place] Insurance:SELF PAY [facility] Number: Effective Repository Date:2018-02-18 03/04/2018 José Miguel Markham Primary IVA Larry [id number] [place] Insurance:MEDICAL MAIBACHDOB: [facility] 7385-62-15GLAMountain View Regional Medical Center [address]Qnd: Number: Repository [id number] (HP) Date:1277-75-80DV [address] [address]GA: 03/04/2018 Secondary NOT GIVENUNK [place] Insurance:SELF PAY [facility] Number: Effective Repository Date:2018-02-18 02/13/2018 José Miguel Markham Primary IVA Jhonathan Larry [id number] [place] Insurance:MEDICAL MAIBACHDOB: [facility] 8495-43-47OQRMountain View Regional Medical Center [address]Plq: Number: Repository [id number] (HP) Date:3034-43-52RZ [address] [address]OH: 02/13/2018 Secondary NOT GIVENUNK [place] Insurance:SELF PAY [facility] Number: Effective Repository Date:2018-02-12 02/11/2018 José Miguel Markham Primary IVA Jhonathan Larry [id number] [place] Insurance:MEDICAL MAIBACHDOB: [facility] 7699-29-62GDHMountain View Regional Medical Center 74[address]Fls: Number: Repository [id number] (HP) Date:3605-84-61EK [address] [address]ZJ: 02/11/2018 Secondary NOT GIVEN[place]K [place] Insurance:SELF PAY [facility] Number: Effective Repository Date:2018-01-28 02/08/2018 José Miguel Markham Primary IVA Jhonathan [place] [id number] [place] Insurance:MEDICAL MAIBACHDOB: [facility] 5112-60-53SFPMountain View Regional Medical Center [address]Pij: Number: Repository [id number] (HP) Date:9114-46-55CM [address] [address]XY: 02/08/2018 Secondary NOT GIVENUNK [place] Insurance:SELF PAY [facility] Number: Effective Repository Date:2018-01-25 02/07/2018 José Miguel Markham Primary IVA Larry [id number] [place] Insurance:MEDICAL MAIBACHDOB: [facility] [id number] [place] [address]Eom: Number: Repository [id number] (HP) Date:7095-45-85MR [address] [place], [place] [address]WP: 02/07/2018 Secondary NOT GIVEN[place]K [place] Insurance:SELF PAY [facility] Number: Effective Repository Date:2018-01-25 02/06/2018 José Miguel Markham Primary IVA Larry [id number] [place] Insurance:MEDICAL MAIBACHDOB: [facility] 7805-25-59JEE [place] [address]Ofw: Number: Repository [id number] (HP) Date:7818-85-15SJ [address] [place], [place] [address]WP: 02/06/2018 Secondary NOT GIV[place]K [place] Insurance:SELF PAY [facility] Number: Effective Repository Date:2018-01-25 02/05/2018 José Miguel Markham Primary IVA Larry [id number] [place] Insurance:MEDICAL MAIBACHDOB: [facility] 0034-58-76KIS [place] [address]Jcx: Number: Repository [id number] (HP) Date:0701-55-13OL [address] [place] [address]AY: 02/05/2018 Secondary NOT [place]IV[place]K [place] Insurance:SELF PAY [facility] Number: Effective Repository Date:2018-01-25 02/04/2018 José Miguel Markham Primary IVA Larry [id number] [place] Insurance:MEDICAL MAIBACHDOB: [facility] 9651-19-70ETTMountain View Regional Medical Center [address]Cea: Number: Repository [id number] (HP) Date:4374-85-83SE [address] [place] [address]XN: 02/04/2018 Secondary NOT GIVENUNK [place] Insurance:SELF PAY [facility] Number: Effective Repository Date:2018-01-25 01/18/2018 José Miguel Markham Primary IVA Jhonathan Larry [id number] [place] Insurance:MEDICAL MAIBACHDOB: [facility] 9706-00-90FXDMountain View Regional Medical Center [address]Bcm: Number: Repository [id number] (HP) Date:3945-91-33WN [place] 00[address]01[address]WP: 01/18/2018 Secondary NOT GIVENUNK [place] Insurance:SELF PAY [facility] Number: Effective Repository Date:2018-01-17 01/17/2018 José Miguel Markham Primary IVA Jhonathan Larry [id number] [place] Insurance:MEDICAL MAIBACHDOB: [facility] 7405-98-55MCFMountain View Regional Medical Center 16[address]Bhy: Number: Repository [id number] (HP) Date:2863-42-88PZ [address] [address]HE: 01/17/2018 Secondary NOT GIVENUNK [place] Insurance:SELF PAY [facility] Number: Effective Repository Date:2018-01-10 01/16/2018 José Miguel J Primary IVA Jhonathan Larry [id number] [place] Insurance:MEDICAL MAIBARANCHO SPRINGS MEDICAL CENTERB: [facility] 7763-81-47LQUMountain View Regional Medical Center [address]Epo: Number: Repository [id number] (HP) Date:4362-41-97TT [address] [address]AD: 01/16/2018 Secondary NOT GIVENUNK [place] Insurance:SELF PAY [facility] Number: Effective Repository Date:2018-01-10 01/15/2018 José Miguel Markham Primary VIA Jhonathan Larry [id number] [place] Insurance:MEDICAL MAIBACHDOB: [facility] 2193-10-51[place] Number: Repository [address]Mrd: 330 [id number] [phone] (HP) Date:9301-90-72FT [address] [address]YQ: 01/15/2018 Secondary NOT GIVENUNK [place] Insurance:SELF PAY [facility] Hospital Number: Effective Repository Date:2018-01-10 01/14/2018 José Miguel Markham Primary IVA Jhonathan [place] [id number] [place] Insurance:MEDICAL MAIBACHDOB: [facility] 1242-89-05IEROmaha, [place] Number: Repository [address]Gxe: 330 [id number] [phone] (HP) Date:7146-72-26SJ [address] [address]JA: 01/14/2018 Secondary NOT GIVENUNK [place] Insurance:SELF PAY [facility] Hospital Number: Effective Repository Date:2018-01-10 01/09/2018 José Miguel Markham Primary IVA Jhonathan GoldbergWaterproof [id number] [place] Insurance:MEDICAL MAIBACHDOB: [facility] 0467-42-26QYXO[place] Number: Repository [address]Rdh: 330 [id number] [phone] (HP) Date:8732-45-04IM [address] [address]YN: 01/09/2018 Secondary NOT GIVENUNK [place] Insurance:SELF PAY [facility] Hospital Number: Effective Repository Date:2017-12-27 01/03/2018 José Miguel Markham Primary IVA Jhonathan Larry [id number] [place] Insurance:MEDICAL MAIBACHDOB: [facility] 1931-11-23OGPO[place] Number: Repository [address]Jfw: (095) [id number] [phone] (HP) Date:0881-22-50FE [address] [place] [address]CB: 01/03/2018 Secondary NOT GIVENUNK [place] Insurance:SELF PAY [facility] Number: Effective Repository Date:2018-01-02 12/28/2017 José Miguel Markham Primary IVA Larry [id number] [place] Insurance:MEDICAL MAIBACHDOB: [facility] 7708-87-97JXROmaha, [place] Number: Repository [address]Ujj: 330 [id number] [phone] (HP) Date:1814-13-88GO [address] [place] [address]QC: 12/28/2017 Secondary NOT GIVENUNK [place] Insurance:SELF PAY [facility] Number: Effective Repository Date:2017-12-07 12/27/2017 José Miguel Markham Primary IVAShu Larry [id number] [place] Insurance:MEDICAL MAIBACHDOB: [facility] 8886-47-20EDZMountain View Regional Medical Center [address]Egg: Number: Repository [id number] (HP) Date:7910-03-98WO [facility] [address] [place] [address]AE: 12/27/2017 Secondary NOT GIVENUNK [place] Insurance:SELF PAY [facility] Number: Effective Repository Date:2017-12-07 12/26/2017 José Miguel Markham Primary Insurance:[facility] Iva Jhonathan Casa [id number] [place] [facility] 4917-82-79FGEO[place], [place] Number: Repository [address]Zcq: 330 [id number] [phone] (HP) Date:0703-56-72YR [address] [address]DYZEUFQSY, [place] [address]IM: CHECK WEBSITE 12/26/2017 Secondary NOT GIVENUNK [place] Insurance:SELF PAY [facility] Hospital Number: Effective Repository Date:2017-12-07 12/25/2017 José Miguel Markham Primary Insurance:[facility] Iva Larry [id number] [facility] CenteribachDOB: [facility] 8967-01-13UHTO[place], [place] Number: Repository [phone]: ([phone]) [id number] [phone] (HP) Date:9299-59-67SH [address] [address]JDTXYDLCF, [place] [address]IT: CHECK WEBSITE 12/25/2017 Secondary NOT GIVENUNK [place] Insurance:SELF PAY [facility] Number: Effective Repository Date:2017-12-07 12/24/2017 José Miguel Markham Primary Insurance:[facility] Iva Larry [id number] [facility] CenterchD[facility]: [facility] 4839-21-73RTROmaha, [place] Number: Repository [address]Isz: (051) [id number] [phone] (HP) Date:6318-69-88EY [address] [address]KUDCMKOBF, [place] [address]IL: CHECK WEBSITE 12/24/2017 Secondary NOT GIVENUNK [place] Insurance:SELF PAY [facility] Number: Effective Repository Date:2017-12-07 12/19/2017 José Miguel Markham Primary Insurance:[facility] Iva Larry [id number] [facility] CenterchDOB: [facility] 6967-27-80RZUO[place], [place] Number: Repository [address]Mnw: 330 [id number] [phone] (HP) Date:2624-63-52TQ [address] [address]EBXVUFMAP, [place] [address]SX: CHECK WEBSITE 12/19/2017 Secondary NOT GIVENUNK [place] Insurance:SELF PAY [facility] Number: Effective Repository Date:2017-11-30 12/07/2017 José Miguel Markham Primary Insurance:[facility] Iva Larry [id number] [facility] CenterD[facility]: [facility] 8393-40-58MUAO[place], [place] Number: Repository [address]Tpy: 330 [id number] [phone] (HP) Date:7181-77-82YZ [address] [address]SUTFGUGZS, [place] [address]MM: CHECK WEBSITE 12/07/2017 Secondary NOT GIVENUNK [place] Insurance:SELF PAY [facility] Number: Effective Repository Date:2017-11-15 12/06/2017 José Miguel Markham Primary Insurance:[facility] Iva Larry [id number] [facility] CenterchDOB: [facility] SERVICESJefferson Health [facility] 6691-39-21GTOOmaha, [place] Number: Repository [address]Fue: 330 [id number] [phone] (HP) Date:9931-31-56QU [address] [address]FMETDBUCK, [place] [address]VX: CHECK WEBSITE 12/06/2017 Secondary NOT GIVENUNK [place] Insurance:SELF PAY [facility] Number: Effective Repository Date:2017-11-15 12/05/2017 José Miguel Markham Primary Insurance:[facility] Iva Larry [id number] [facility] CenterchDOB: [facility] 7762-42-62WENOmaha, [place] Number: Repository [address]Ltb: 330 [id number] [phone] (HP) Date:9823-36-81XY [address] [address]JFJCERYXF, [place] [address]XF: CHECK WEBSITE 12/05/2017 Secondary NOT GIVENUNK [place] Insurance:SELF PAY [facility] Number: Effective Repository Date:2017-11-15 12/04/2017 José Miguel Markham Primary Insurance:[facility] Iva Larry [id number] [facility] CenterD[facility]: [facility] 3723-91-79XRKOmaha, [place] Number: Repository [address]Jda: 330 [id number] [phone] (HP) Date:5884-70-10IP [address] [address]KIFMCLZUD, [place] [address]NQ: CHECK WEBSITE 12/04/2017 Secondary NOT GIVENUNK [place] Insurance:SELF PAY [facility] Number: Effective Repository Date:2017-11-15 12/03/2017 José Miguel Markham Primary Insurance:[facility] Iva Larry [id number] [facility] CenterD[facility]: [facility] 2981-70-64KGPOmaha, [place] Number: Repository [address]Ihu: 330 [id number] [phone] (HP) Date:9581-93-23TY [address] [address]CVKENAZQE, [place] [address]DT: CHECK WEBSITE 12/03/2017 Secondary NOT GIVENUNK [employer] Insurance:SELF PAY [facility] Number: Effective Repository Date:2017-11-15 11/28/2017 José Miguel Markham Primary Insurance:[facility] Iva Larry [id number] [facility]: [facility] [id number]: Repository [id number]: [id number] [phone] () Date:[id number], [place] [address]LR: CHECK WEBSITE 11/28/2017 Secondary NOT GIVENUNK [employer] Insurance:SELF PAY [facility] Number: Effective Repository Date:2017-10-29
== END ==
PROVIDERS: Family Provider Family Medicine; PCP Family Medicine; Referring Provider Internal Medicine Hematology & Oncology; Visit Provider Internal Medicine Hematology & Oncology
DX: Z51.11 Encounter for antineoplastic chemotherapy (principal); C56.1 Malignant neoplasm of right ovary; C56.2 Malignant neoplasm of left ovary
CPT/HCPCS: 96367; 96413; J7050; A4216; J1453; J2405; J3490; J9351

== ENCOUNTER → 2018-10-11 13:06 | Outpatient (CLI) | payer OTHER, SELFPAY ==
[2018-09-17 13:49] VITALS: BMI 32.4
[2018-10-10 13:16] VITALS: BMI 30.4
[2018-10-11 13:21] VITALS: BP 151/90; PULSE 78; RESP 15; TEMP 36.6; O2SAT 99; BMI 30.9
--- OUTSIDE RECORDS SUMMARY | 2018-11-27 08:29 | XMS RPT_ITS ---
:1955 Author Organization [place] Support Name Relationship Address Phone JOSÉ MIGUEL CUEVA Unavailable [address] + [place] [address] R Unavailable Unavailable Unavailable JOSÉ MIGUEL CUEVA Unavailable [address] + [place] [address] R Unavailable Unavailable Unavailable JOSÉ MIGUEL CUEVA Unavailable [address] + [place] [address] R Unavailable Unavailable Unavailable JOSÉ MIGUEL CUEVA Unavailable [address] + [place] [address] R Unavailable Unavailable Unavailable JOSÉ MIUGEL CUEVA Unavailable [address] + [place] [address] R Unavailable Unavailable Unavailable JOSÉ MIGUEL CUEVA Unavailable [address] + [place] [address] R Unavailable Unavailable Unavailable JOSÉ MIGUEL CUEVA Unavailable [address] + [place] [address] R Unavailable Unavailable Unavailable JOSÉ MIGUEL CUEVA Unavailable [address] + [place] [address] R Unavailable Unavailable Unavailable JOSÉ MIGUEL CUEVA Unavailable [address] + [place] [address] R Unavailable Unavailable Unavailable JOSÉ MIGUEL CUEVA Unavailable [address] + [place] [address] R Unavailable Unavailable Unavailable JOSÉ MIGUEL CUEVA Unavailable [address] + [place] [address] R Unavailable Unavailable Unavailable JOSÉ MIGUEL CUEVA Unavailable [address] + [place] [address] R Unavailable Unavailable Unavailable MAIBACH, JOSÉ MIGUEL Unavailable [address] + [place] [address] R Unavailable Unavailable Unavailable MAIBACH, JOSÉ MIGUEL Unavailable [address] + [place] [address] R Unavailable Unavailable Unavailable MAIBACH, JOSÉ MIGUEL Unavailable [address] + [place] [address] R Unavailable Unavailable Unavailable MAIBACH, JOSÉ MIGUEL Unavailable [address] + [place] [address] R Unavailable Unavailable Unavailable MAIBACH, JOSÉ MIGUEL Unavailable [address] + [place] [address] R Unavailable Unavailable Unavailable MAIBACH, JOSÉ MIGUEL Unavailable [address] + [place] [address] R Unavailable Unavailable Unavailable MAIBACH, JOSÉ MIGUEL Unavailable [address] + [place] [address] R Unavailable Unavailable Unavailable MAIBACH, JOSÉ MIGUEL Unavailable [address] + [place] [address] R Unavailable Unavailable Unavailable MAIBACH, JOSÉ MIGUEL Unavailable [address] + [place] [address] R Unavailable Unavailable Unavailable MAIBACH, JOSÉ MIGUEL Unavailable [address] + [place] [address] R Unavailable Unavailable Unavailable MAIBACH, JOSÉ MIGUEL Unavailable [address] + [place] [address] R Unavailable Unavailable Unavailable MAIBACH, JOSÉ MIGUEL Unavailable [address] + [place] [address] R Unavailable Unavailable Unavailable MAIBACH, JOSÉ MIGUEL Unavailable [address] + [place] [address] R Unavailable Unavailable Unavailable MAIBACH, JOSÉ MIGUEL Unavailable [address] + [place] [address] R Unavailable Unavailable Unavailable MAIBACH, JOSÉ MIGUEL Unavailable [address] + [place] [address] R Unavailable Unavailable Unavailable MAIBACH, JOSÉ MIGUEL Unavailable [address] + [place] [address] R Unavailable Unavailable Unavailable MAIBACH JOSÉ MIGUEL Unavailable [address] + [place] [address] R Unavailable Unavailable Unavailable OSCAR CUEVAEN Unavailable [address] + [place] [address] R Unavailable Unavailable Unavailable MAYAMILCH, JOSÉ MIGUEL Unavailable [address] + [place] [address] R Unavailable Unavailable Unavailable MAIBACH, JOSÉ MIGUEL Unavailable [address] + [place] [address] R Unavailable Unavailable Unavailable MAIBACH, JOSÉ MIGUEL Unavailable [address] + [place] [address] R Unavailable Unavailable Unavailable MAIBACH, JOSÉ MIGUEL Unavailable [address] + [place] [address] R Unavailable Unavailable Unavailable ANAY JOSÉ MIGUEL Unavailable [address] + [place] [address] R Unavailable Unavailable Unavailable YVROSEIBACH, JOSÉ MIGUEL Unavailable [address] + [place] [address] R Unavailable Unavailable Unavailable ANAY JOSÉ MIGUEL Unavailable [address] + [place] [address] R Unavailable Unavailable Unavailable СВЕТЛАНАCH, JOSÉ MIGUEL Unavailable [address] + [place] [address] R Unavailable Unavailable Unavailable ANAY JOSÉ MIGUEL Unavailable [address] + [place] [address] R Unavailable Unavailable Unavailable YVROSEIBACH, JOSÉ MIGUEL Unavailable [address] + [place] [address] R Unavailable Unavailable Unavailable YVROSEIBACH, JOSÉ MIGUEL Unavailable [address] + [place] [address] R Unavailable Unavailable Unavailable YVROSEIBACH, JOSÉ MIGUEL Unavailable [address] + [place] [address] R Unavailable Unavailable Unavailable СВЕТЛАНАCH, JOSÉ MIGUEL Unavailable [address] + [place] [address] R Unavailable Unavailable Unavailable ANAY, JOSÉ MIGUEL Unavailable [address] + [place] [address] R Unavailable Unavailable Unavailable ANAY JOSÉ MIGUEL Unavailable [address] + [place] [address] R Unavailable Unavailable Unavailable MAIBACH JOSÉ MIGUEL Unavailable [address] + [place] [address] R Unavailable Unavailable Unavailable СВЕТЛАНАCH, JOSÉ MIGUEL Unavailable [address] + [place] [address] R Unavailable Unavailable Unavailable MAIBACH, JOSÉ MIGUEL Unavailable [address] + [place] [address] R Unavailable Unavailable Unavailable MAIBACH, JOSÉ MIGUEL Unavailable [address] + [place] [address] R Unavailable Unavailable Unavailable СВЕТЛАНАCH JOSÉ MIGUEL Unavailable [address] + [place] [address] R Unavailable Unavailable Unavailable ANAY JOSÉ MIGUEL Unavailable [address] + [place] [address] R Unavailable Unavailable Unavailable OSCAR CUEVAEN Unavailable [address] + [place] [address] R Unavailable Unavailable Unavailable OSCAR CUEVAEN Unavailable [address] + [place] [address] R Unavailable Unavailable Unavailable OSCAR CUEVAEN Unavailable [address] + [place] [address] R Unavailable Unavailable Unavailable СВЕТЛАНАCH JOSÉ MIGUEL Unavailable [address] + [place] [address] R Unavailable Unavailable Unavailable ANAY JOSÉ MIGUEL Unavailable [address] + [place] [address] R Unavailable Unavailable Unavailable YVROSEIBACH, JOSÉ MIGUEL Unavailable [address] + [place] [address] R Unavailable Unavailable Unavailable YVROSEIBACHOSCAREN Unavailable [address] + [place] [address] R Unavailable Unavailable Unavailable ANAY, JOSÉ MIGUEL Unavailable [address] + [place] [address] R Unavailable Unavailable Unavailable MAIBACH, JOSÉ MIGUEL Unavailable [address] + [place] [address] R Unavailable Unavailable Unavailable MAIBACH, JOSÉ MIGUEL Unavailable [address] + [place] [address] R Unavailable Unavailable Unavailable MAIBACH, JOSÉ MIGUEL Unavailable [address] + [place] [address] R Unavailable Unavailable Unavailable MAIBACH, JOSÉ MIGUEL Unavailable [address] + [place] [address] R Unavailable Unavailable Unavailable MAIBACH, JOSÉ MIGUEL Unavailable [address] + [place] [address] R Unavailable Unavailable Unavailable MAIBACH, JOSÉ MIGUEL Unavailable [address] + [place] [address] R Unavailable Unavailable Unavailable MAIBACH, JOSÉ MIGUEL Unavailable [address] + [place] [address] R Unavailable Unavailable Unavailable MAIBACH, JOSÉ MIGUEL Unavailable [address] + [place] [address] R Unavailable Unavailable Unavailable MAIBACH, JOSÉ MIGUEL Unavailable [address] + [place] [address] R Unavailable Unavailable Unavailable MAIBACH, JOSÉ MIGUEL Unavailable [address] + [place] [address] R Unavailable Unavailable Unavailable MAIBACH, JOSÉ MIGUEL Unavailable [address] + [place] [address] R Unavailable Unavailable Unavailable MAIBACH, JOSÉ MIGUEL Unavailable [address] + [place] [address] R Unavailable Unavailable Unavailable MAIBACH, JOSÉ MIGUEL Unavailable [address] + [place] [address] R Unavailable Unavailable Unavailable MAIBACH, JOSÉ MIGUEL Unavailable [address] + [place] [address] R Unavailable Unavailable Unavailable MAIBACH, JOSÉ MIGUEL Unavailable [address] + [place] [address] R Unavailable Unavailable Unavailable MAIBACH, JOSÉ MIGUEL Unavailable [address] + [place] [address] R Unavailable Unavailable Unavailable JOSÉ MIGUEL CUEVA Unavailable [address] + [place] [address] R Unavailable Unavailable Unavailable JOSÉ MIGUEL CUEVA Unavailable [address] + [place] [address] R Unavailable Unavailable Unavailable JOSÉ MIGUEL CUEVA Unavailable [address] + [place] [address] R Unavailable Unavailable Unavailable JOSÉ MIGUEL CUEVA Unavailable [address] + [place] [address] R Unavailable Unavailable Unavailable JOSÉ MIGUEL CUEVA Unavailable [address] + [place] [address] [facility] Unavailable [address] + [place] [address] Care Team Providers Name Role Phone GINNY, OMAR Lucia Attending Unavailable MASCI, OMAR Lucia [...] MASCI, OMAR Lucia Referring Unavailable PAIGE QUEEN (MECHANIC) Referring Unavailable TERRANCE RENEE Referring Unavailable MASCI, [...] Omar Attending Unavailable Masci, Omar Referring [facility] Masci, Omar Attending Unavailable Masci, Omar Referring [facility]available [facility] Masci, Omar Attending Unavailable Masci, Omar Referring Unavailable [place], [facility] Unavailable Masci, Omar Attending Unavailable Masci, Omar Referring Unavailable [place], [place] [facility] Unavailable Masci, Omar Attending Unavailable Masci, Omar Referring Unavailable [place], [place] [facility] Unavailable Masci, Omar Attending Unavailable Masci, Omar Referring Unavailable [place], [place] [facility] Unavailable Marcanthony, Marcy Attending Unavailable [facility] Referring Unavailable Marcanthony, Marcy Attending Unavailable Marcanthony, Marcy Referring Unavailable [place], [place] [facility] Unavailable Masci, Omar Attending Unavailable Masci, Omar Referring Unavailable [place], [place] [facility] Unavailable Masci, Omar Attending Unavailable Masci, Omar Referring Unavailable [place], [place] [facility] Unavailable Masci, Omar Attending Unavailable Masci, Omar Referring Unavailable [place], [place] [facility] Unavailable Masci, Omar Attending Unavailable Masci, Omar Referring Unavailable [place], [place] [facility] Unavailable Masci, Omar Attending Unavailable Masci, Omar Referring Unavailable [place], [place] [facility] Unavailable Masci, Omar Attending Unavailable Masci, Omar Referring Unavailable [place], [place] [facility] Unavailable Masci, Omar Attending Unavailable [place], [place] [facility] Unavailable Masci, Omar Attending Unavailable Masci, Omar Referring Unavailable [place], [place] [facility] Unavailable Masci, Omar Attending Unavailable Masci, Omar Referring Unavailable [place], [place] [facility] Unavailable Masci, Omar Attending Unavailable Masci, Omar Referring Unavailable [place], [place] [facility] Unavailable Masci, Omar Attending Unavailable Masci, Omar Referring Unavailable [place], [place] [facility] Unavailable Masci, Omar Attending Unavailable Masci, Omar Referring Unavailable [place], [place] [facility] Unavailable Masci, Omar Attending Unavailable Masci, Omar Referring Unavailable [place], [place] [facility] Unavailable Masci, Omar Attending Unavailable Masci, Omar Referring Unavailable [place], [place] [facility] Unavailable Masci, Omar Attending Unavailable Masci, Omar Referring Unavailable [place], [place] [facility] Unavailable Masci, Omar Attending Unavailable Masci, Omar Referring Unavailable [place], [place] [facility] Unavailable Masci, Omar Attending Unavailable Masci, Omar Referring Unavailable [place], [place] [facility] Unavailable Masci, Omar Attending Unavailable Masci, Omar Referring Unavailable [place], [place] [facility] Unavailable Masci, Omar Attending Unavailable Masci, Omar Referring Unavailable [place], [place] [facility] Unavailable Masci, Omar Attending Unavailable Masci, Omar Referring Unavailable [place], [place] [facility] Unavailable Masci, Omar Attending Unavailable Masci, Omar Referring Unavailable [place], [place] [facility] Unavailable Masci, Omar Attending Unavailable Masci, Omar Referring Unavailable [place], [place] [facility] Unavailable Masci, Omar Attending Unavailable Masci, Omar Referring Unavailable [place], [place] [facility] Unavailable Masci, Omar Attending Unavailable Masci, Omar Referring Unavailable [place], [place] [facility] Unavailable Masci, Omar Attending Unavailable Masci, Omar Referring Unavailable [place], [place] [facility] Unavailable Masci, Omar Attending Unavailable Masci, Omar Referring Unavailable [place], [place] [facility] Unavailable Masci, Omar Attending Unavailable Masci, Omar Referring Unavailable [facility], [place] [facility] Unavailable Masci, Omar Attending Unavailable Masci, Omar Referring Unavailable [facility], [place] [facility] Unavailable Masci, Omar Attending Unavailable Masci, Omar Referring Unavailable [facility], [place] [facility] Unavailable Masci, Omar Attending Unavailable Masci, Omar Referring Unavailable [facility], [place] [facility] Unavailable Masci, Omar Attending Unavailable Masci, Omar Referring Unavailable [facility], [place] [facility] Unavailable Masci, Omar Attending Unavailable Masci, Omar Referring Unavailable [facility], [place] [facility] Unavailable Masci, Omar Attending Unavailable Masci, Omar Referring Unavailable [facility], [place] [facility] Unavailable Masci, Omar Attending Unavailable Masci, Omar Referring Unavailable [facility], [place] [facility] Unavailable Masci, Omar Attending Unavailable Masci, Omar Referring Unavailable [facility], [place] [facility] Unavailable Masci, Omar Attending Unavailable Masci, Omar Referring Unavailable [facility], [place] [facility] Unavailable Masci, Omar Attending Unavailable Masci, Omar Referring Unavailable [facility], [place] [facility] Unavailable Masci, Omar Attending Unavailable Masci, Omar Referring Unavailable [facility], [place] [facility] Unavailable Masci, Omar Attending Unavailable Masci, Omar Referring Unavailable [facility], [place] [facility] Unavailable Masci, Omar Attending Unavailable Masci, Omar Referring Unavailable [facility], [place] [facility] Unavailable Masci, Omar Attending Unavailable Masci, Omar Referring Unavailable [facility], [place] [facility] Unavailable Masci, Omar Attending Unavailable Masci, Omar Referring Unavailable [facility], [place] [facility] Unavailable Masci, Omar Attending Unavailable Masci, Omar Referring Unavailable [facility], [place] [facility] Unavailable Masci, Omar Attending Unavailable Masci, Omar Referring Unavailable [place], [place] [facility] Unavailable Masci, Omar Attending Unavailable Masci, Omar Referring Unavailable [facility] Primary Care Unavailable Masci, Omar Attending Unavailable Masci, Omar Referring [facility]available [facility] Unavailable Masci, Omar Attending Unavailable Masci, Omar Referring Unavailable [place], [place] [facility] Unavailable Masci, Omar Attending Unavailable Masci, Omar Referring Unavailable [facility], [place] [facility] Unavailable Masci, Omar Attending Unavailable Masci, Omar Referring Unavailable [facility] Unavailable Masci, Omar Attending Unavailable Masci, Omar Referring Unavailable [facility], [place] [facility] Unavailable Masci, Omar Attending Unavailable Masci, Omar Referring Unavailable [facility] Care Unavailable Masci, Omar Attending Unavailable Masci, Omar Referring Unavailable [facility], [place] [facility] Unavailable Masci, Omar Attending Unavailable Masci, Omar Referring Unavailable [facility], [place] [facility] Unavailable Masci, Omar Attending Unavailable Masci, Omar Referring Unavailable [facility] Unavailable Masci, Omar Attending Unavailable Masci, Omar Referring Unavailable [facility] Care Unavailable Masci, Omar Attending Unavailable Masci, Omar Referring Unavailable [facility], [place] [facility] Unavailable Masci, Omar Attending Unavailable Masci, Omar Referring Unavailable [facility] Care Unavailable Masci, Omar Attending Unavailable Masci, Omar Referring Unavailable [facility] Unavailable Masci, Omar Attending Unavailable Masci, Omar Referring Unavailable [facility] Unavailable Masci, Omar Attending Unavailable Masci, Omar Referring Unavailable [facility] Unavailable Masci, Omar Attending Unavailable Masci, Omar Referring Unavailable [facility] Care Unavailable Masci, Omar Attending Unavailable Masci, Omar Referring Unavailable [facility] Unavailable Masci, Omar Attending Unavailable Masci, Omar Referring Unavailable [facility] Care Unavailable Masci, Omar Attending Unavailable Masci, Omar Referring Unavailable [facility] Unavailable Masci, Omar Attending Unavailable Masci, Omar Referring Unavailable [facility], [place] [facility] Unavailable Masci, Omar Attending Unavailable Masci, Omar Referring Unavailable [facility] Unavailable Masci, Omar Attending Unavailable Masci, Omar Referring Unavailable [facility] Care Unavailable Masci, Omar Attending Unavailable Masci, Omar Referring Unavailable [place], [place] [facility] Unavailable Masci, Omar Attending Unavailable Masci, Omar Referring Unavailable [place], [place] [facility] Unavailable Masci, Omar Attending Unavailable Masci, Omar Referring Unavailable [place], [place] [facility] Unavailable Masci, Omar Attending Unavailable Masci, Omar Referring Unavailable [place], [place] [facility] Unavailable Masci, Omar Attending Unavailable Masci, Omar Referring Unavailable [place], [place] [facility] Unavailable PROBLEMS PROBLEMS DATE TYPE CONDITION / CODE ATTENDING STATUS SOURCE 10/28/2018 Active Malignant neoplasm of NA Active [facility] unspecified ovary / Clinic Main C56.9(ICD-10) [place] [facility] 10/28/2018 Active Disseminated malignant NA Active [facility] neoplasm, unspecified Clinic Main / C80.0(ICD-10) [place] [facility] 10/28/2018 Active Unknown / UNK(Unknown) NA Active [facility] Main [place] [facility] 09/17/2018 Unknown N63.20 - Unspecified Marcanthony, Active [place] lump in the left [facility] breast, unspecified Hospital quadrant / Repository N63.20(ICD-10) 08/29/2018 Unknown C56.1 - Malignant Omar Gross Active [place] neoplasm of right [facility] ovary / C56.1(ICD-10) Hospital Repository 07/04/2018 Active Nausea with vomiting, OMAR GROSS Active [facility] unspecified / Clinic Main R11.2(ICD-10) [place] Rep[facility] 07/04/2018 Active Adverse effect of OMAR GROSS Active [facility] antineoplastic and Clinic Main immunosuppressive [place] drugs, initial Repository encounter / T45.1X5A(ICD-10) 02/15/2016 Active Malignant neoplasm of NA Active [facility] right ovary / Clinic Main C56.1(ICD-10) [place] [facility] 02/15/2016 Active Malignant neoplasm of NA Active [facility] left ovary / Clinic Main C56.2(ICD-10) [place] [facility] 04/24/2018 Unknown Z51.11 - Encounter for Omar Gross Active [place] antineoplastic [facility] chemotherapy / Hospital Z51.11(ICD-10) Repository 04/24/2018 Unknown C56.9 - Malignant Omar Gross Active [place] neoplasm of [facility] unspecified ovary / Hospital C56.9(ICD-10) Repository PROCEDURES PROCEDURES No Procedure Records FoundRESULTS RESULTS CBC W/DIFF, AUTOMATED Collected: 11/19/2018 Status: F Source: [place] 9:58 AM [facility] REPOSITORY TYPE CODE TESTS RESULT OUT OF [...] Lymph 1.70 Performed By: #### L100.0100 #### [facility] [address] [place], [address] COMPREHENSIVE METABOLIC Collected: 11/19/2018 Status: F Source: [place] [facility] 9:58 AM [facility] REPOSITORY TYPE CODE TESTS RESULT OUT OF [...] GAP 7 Performed By: #### L500.4050 #### [facility] [address] [place], [place], [address] CANCER ANTIGEN 125 Collected: 11/19/2018 Status: F Source: [place] 9:58 AM [facility] REPOSITORY TYPE CODE TESTS RESULT OUT OF RANGE REFERENCE UNITS LAB L3100.5000 0.0-38.1 U/mL High CA125 136.2 2303 Result Comment: [facility] Electrochemiluminescence Immunoassay (ECLIA) Values obtained with different assay methods or kits cannot be used interchangeably. Results cannot be interpreted as absolute evidence of the presence or absence of malignant disease. Performed at: [address] [id number] [place] Helper: Carlo Bass PhD, Phone: [phone] Performed By: #### L3100.5000 #### [facility] (refer to report for specific site) refer to report for address and phone number NURSING PROG Observed: 11/04/2018 Status: COMPLETED Source: [place] 8:00 PM [facility] [place] REPOSITORY HNO ID: [id number] Author: Amara Bishop) MARTELL De La Torre Service: (none) Author Type: LICENSED NURSE Type: Nursing Progress Note Filed: 11/05/2018 8:43 AM Note Text: Radiology post procedure telephone follow-up call attempted. Left voice message requesting a return phone call to [phone] if experiencing any problems or concerns. After hours please call [phone] and ask for pager [phone] SURGICAL PATHOLOGY Observed: 11/04/2018 Status: C Source: [place] 4:00 PM [facility] REPOSITORY ADDENDUM PRESENT Specimen originated from [facility] Specimen #: [id number] Submitting Physician: OMID GEE MD FINAL DIAGNOSIS [...] in one cassette. Gross examination performed at [facility], [address] [place] [address] 11/04/2018 9:34:25 PM Date of Report: 11/05/2018 Date of Procedure: 11/04/2018 Date of Receipt: 11/04/2018 Submitted by: OMID GEE MD Additional Physician(s): OMAR GROSS M.D. ([id number]) Location: [facility] Diagnostic interpretation performed at [facility], [address] [place] [address]. [address] BIOPSY ABD/RETROPERIT Observed: 11/04/2018 Status: F Source: [place] 3:48 PM [facility] REPOSITORY * * *Final Report* * * DATE OF EXAM: Nov 04 2018 3:48PM [facility] BIOPSY ABD/RETROPERIT MASS / PROCEDURE [...] and omental/peritoneal nodules. STAFF RADIOLOGIST: Dr. Gee TAPE RULES PRINTING MACHINE OPERATOR(S): Mariana Wood APRN MECHANIC CONSENT: The risks, benefits, treatment options, potential [...] The procedure was performed by the: the it assistant, and the attending radiologist personally supervised [...] GUIDED OMENTAL MASS BIOPSY DESCRIBED v 10/31/16 Salt Machine Operator: AVA Transcribe Date/Time: Nov 04 2018 3:49P Dictated by : OMID GEE MD This examination was interpreted and the report reviewed and electronically signed by: OMID GEE MD on Nov 04 2018 4:34PM EST [id number] OP NOT Observed: 11/04/2018 Status: COMPLETED Source: [place] 3:46 PM [facility] [facility] HNO ID: [id number] Author: Mariana Miller) [place] Service: Radiology Author Type: Nurse Practitioner Type: Brief Op Note Filed: 11/04/2018 3:47 PM Note Text: BRIEF OPERATIVE / PROCEDURE NOTE LOG ID: [id number] SURGERY/PROCEDURE DATE: 11/04/2018 INCISION/PROCEDURE START TIME: 3:19 PM INCISION CLOSE/PROCEDURE END TIME: 3:33 PM SURGEON(S)/PROCEDURALIST(S) AND TAPE RULES PRINTING MACHINE OPERATOR(S): Surgeon(s) and Role: * Omid Gee - Primary Mariana Wood APRN, CNP- Sign Painter Helper SURGERY/PROCEDURE(S): CT guided biopsy of peritoneal nodule ANESTHESIA: Procedural Sedation FINDINGS: nodule consistent with previous imaging ESTIMATED BLOOD LOSS: minimal SPECIMENS: four 18 gauge cores COMPLICATIONS: None PRE-OP/PRE-PROCEDURE DIAGNOSIS: 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 POST-OP/POST-PROCEDURE DIAGNOSIS: Same as above SIGNATURE: Mariana Wood APRN.ILDEFONSO PATIENT NAME: Iva Cueva DATE: November 04, 2018 TIME: 3:46 PM PAGER/CONTACT #: [phone] PROGRESS Observed: 11/04/2018 Status: COMPLETED Source: [place] 3:44 PM [facility] HNO ID: [id number] Author: AWA Stroud (Ct) Service: (none) Author Type: Clinical Counter Checker Type: Progress Notes Filed: 11/04/2018 3:49 PM [...] PT ED Observed: 11/04/2018 Status: COMPLETED Source: [place] 2:47 PM [facility] HNO ID: [id number] Author: Griselda (Rn) TOMÁS Rodriguez Service: (none) Author Type: Registered [...] HISTORY PHYSICAL Observed: 11/04/2018 Status: COMPLETED Source: [place] 2:20 PM [facility] HNO ID: [id number] Author: Omid Gee Service: Radiology Author Type: [...] November 04, 2018 TIME: 2:20 PM PAGER: [phone] CBC Collected: 11/01/2018 Status: F Source: [place] 1:16 PM [facility] REPOSITORY TYPE [...] nRBC <0.01 Performed By: #### CBC #### [facility] [address] [place], [place] [address] PROTIME Collected: 11/01/2018 Status: F Source: [place] 1:15 PM [facility] TYPE CODE TESTS RESULT OUT OF RANGE REFERENCE UNITS LAB PSEC 9.7-13.0 sec PT Sec 10.5 LAB INR 0.9-1.3 PT INR 1.0 Result Comment: Vitamin K Antagonist (VKA) Therapeutic Range: INR 2 to 3 (Target INR of 2.5) Note: For patients treated with VKA drugs, such as warfarin, the [employer] 2012 Guideline recommends [...] to 3.5 (target INR of 3). Javed GH, et al. Chest 2012, 141:7S-47S Pee RA, et al. [facility] 2017, 70: 252-289 Performed By: #### PT #### [facility] [address] [place] [address] NURSING PROG Observed: 10/31/2018 Status: COMPLETED Source: [place] 1:29 PM [facility] HNO ID: [id number] Author: Amara Bishop) MARTELL De La Torre Service: (none) Author Type: LICENSED NURSE Type: Nursing Progress Note Filed: 10/31/2018 1:39 PM Note Text: Pre-procedure phone calls: Contacted Iva Cueva and confirmed appt. for Biopsy scheduled on 11/04/2018, at [facility]. I will be providing you with instructions [...] to be drawn by 11/01/2018 at the [facility] closest to your home or your procedure will be rescheduled. Arrival: Please bring your Photo ID and Insurance Card. A general consent may need to be signed. Arrive to -1 ([facility]) Admitting/Registration by 12:30pm. Then proceed to desk B-1 ([facility]) and check in for your procedure. Your anticipated procedure start time will be between 2 AND 2:30pm. Research And Evaluation Analyst/Transportation: How will you be arriving for your procedure? private car. If you will be arriving at [facility] via ambulance or public transportation, please call to discuss. You will need a responsible adult to accompany you to and from the procedure. Your vending route driver is required to stay with you [...] you... What is your arrival time to [facility]? 1230pm What time do you stop eating food? 6am What time can you have clears until? 12 noon Tell me how you will be taking your medications the morning of your procedure? water Written instructions provided to patient via [employer] If you have any questions please call [phone] HOSP Observed: 10/31/2018 Status: COMPLETED Source: [place] 12:00 AM [facility] REPOSITORY Patient:Iva Cueva MRN: <[id number]> Height:5' 4(1.626 m) Weight:183 lb (83.008 kg) [...] % 11/01/2018 46.0 36.0 Progress Notes [facility] Ania Reed LPN, INVESTIGATION SPECIALIST 11/01/2018 9:11 AM Signed Diane Ragland [facility] Hem/Onc Pool Cc: Randa Davison (Cbo) ? Good morning All, I am contacting you from the Precertification Department here at the [facility]. Iva Cueva, , is being reviewed for the following procedure: [address]361- CT Chest on 10/28/2018. Clinical has been submitted to the patient's insurance company [employer] and the request was denied. Please see [...] scheduled Who can complete peer to peer: MD, DESK INTERVIEWER, PA, you need to get verbal consent from the patient in order to complete the peer review as the insurance will ask if verbal consent has been obtained prior to the peer review. Peer to Peer Information: Peer to peer phone #: [phone] (option 4, 2) Appeal fax #: [phone] Appeal mailing address: [facility] Attn: Appeals [address] [place] [address], [address] [place] [address] Case reference #: [id number] [facility] NPI :[id number] ?[facility] TAX ID [id number] Thank you for your attention to this matter, Diane Queen APRN.ILDEFONSO 11/01/2018 10:32 AM Signed Peer to peer scheduled for Sunday at 8a.m. Paige Queen APRN.ILDEFONSO Queen APRN.ILDEFONSO 11/04/2018 8:42 AM Signed Approved. #[id number]. Paige Queen, MICK.ILDEFONSO Progress Notes ([facility]): Rosy Roth Psr 10/31/2018 12:25 PM Signed Patient wanted to give Dr. Gross a heads up that she is having a procedure on Sunday11-04-18 at [facility]. She also wanted to talk about the chemo schedules she will be traveling a lot not sure how it is going to fit into her schedule. She would like for Dr Gross give her a call so she may talk to him. Omar Gross DO 10/31/2018 1:16 PM Signed I spoke with her. Omar Gorss DO CNPN Observed: 10/30/2018 Status: COMPLETED Source: [place] 12:00 AM [facility] IVA [facility]UEVA ([id number]) 1955 F Date Time Provider Department 10/30/18 OMAR GROSS During your visit today, we recorded the following information about you: Omar Gross DO 10/30/2018 9:18 AM Signed I left Iva lucia MAI earlier this morning letting her know results of CTs and that I was going to send a message to Dr. Jo asking his opinion on CT guided vs laparoscopic biopsy. Can let her know he got back to me and suggested CT guided biopsy. I placed order for this to be done at [facility]. Let's arrange for her. Omar Gross DO Lora Psr [facility] 10/30/2018 9:51 AM Signed Called call center to be triaged - [phone] Once triaged, they will call patient to schedule. Radha Galan Psr 10/30/2018 9:52 AM Signed RADIOLOGY CALL CENTER INTAKE DIE CUTTER APPRENTICE: radha EXT: [phone] DATE: October 30, 2018 TIME: 9:46 AM TRACKING #. [phone] REQUESTING PERSON: rody PHONE/PAGER: [phone] REQUESTING STAFF: Dr gross PHONE/PAGER: [phone] ORDERING DESK LOCATION: [facility] If inpatient, patient location: Never done (Note: requests for inpatient's procedures should be given to the O.D. nurse at pager #[phone]) If outpatient, best way to reach patient: [...] random biopsies do not need imaging.) IMAGING: [facility] (If the imaging was obtained outside the [facility] system, then it needs to be submitted for review prior to approval.) Note to all persons requesting biopsies: All biopsy requests will be scheduled as quickly as possible, based on the clinical urgency, availability of appointment times, the need to hold anti-thrombolytic therapy (aspirin, blood thinners) and the patient?s schedule, including the need for an available vending route driver. If a percutaneous biopsy or drainage is not felt to be safe or an alternative method for establishing a diagnosis is possible, this will be discussed directly with the requesting physician. Amara De La Torre LPN, INVESTIGATION SPECIALIST 10/30/2018 2:46 PM Signed . BX. COORDINATOR [...] [C56.1, C56.2] Order(s):IMAGING GUIDED BIOPSY ABDOMEN/RETROPERITONEAL MASS [[id number]] Order #: [id number] Prescriptions as of 10/30/2018 Sig: ZOLPIDEM 5 [...] 10/31/18 PROGRESS Observed: 10/28/2018 Status: COMPLETED Source: [place] 3:19 PM [facility] HNO ID: [id number] Author: Ofelia Jones Service: (none) Author Type: [...] W IVCON Observed: 10/28/2018 Status: F Source: [place] 3:19 PM [facility] * * *Final Report* * * DATE OF EXAM: Oct 28 2018 3:19PM [facility] 0539 - CT CHEST W [...] Small amount of fluid in the pelvis Salt Machine Operator: PSCB Transcribe Date/Time: Oct 28 2018 4:11P Dictated by : CARLOSA LBERTO HASKINS MD This examination was interpreted and the report reviewed and electronically signed by: CARLOS ALBERTO HASKINS MD on Oct 28 2018 4:49PM EST [id number] CT ABD/PEL W IVCON Observed: 10/28/2018 Status: F Source: [place] 3:19 PM [facility] * * *Final Report* * * DATE OF EXAM: Oct 28 2018 3:19PM [facility] 0530 - CT ABD/PEL W [...] Small amount of fluid in the pelvis Salt Machine Operator: AVA Transcribe Date/Time: Oct 28 2018 4:11P Dictated by : CARLOS ALBERTO HASKINS MD This examination was interpreted and the report reviewed and electronically signed by: CARLOS ALBERTO HASKINS MD on Oct 28 2018 4:49PM EST [id number] CANCER ANTIGEN 125 Collected: 10/25/2018 Status: F Source: [place] 11:42 AM [facility] REPOSITORY TYPE CODE TESTS RESULT OUT OF RANGE REFERENCE UNITS LAB L3100.5000 0.0-38.1 U/mL High CA125 78.9 2303 Result Comment: Meghna ECLIA methodology Performed at: [facility] [address] [id number] Ginner Helper: Carlo Bass PhD, Phone: [phone] Performed By: #### L3100.5000 #### [facility] (refer to report for specific site) refer to report for address and phone number PROGRESS Observed: 10/24/2018 Status: COMPLETED Source: [place] 4:14 PM [facility] REPOSITORY HNO ID: [id number] Author: Omar Gross Service: (none) Author Type: Physician Type: Progress Notes Filed: 10/24/2018 8:10 PM Note Text: Diagnosis: 1) Ovarian cancer. ? HPI: The patient is a 63 year old female who presented to her PCP prior to a trip to [facility] for vaccinations. She reported that she was [...] Taxol x 6 cycles, completed 05/27/13. 6) Beaumont/carbo/cassandra x cycles for biopsy proven metastatic disease [...] No jaundice or rash. No petechiae. NEUROLOGIC: resident caregiver II-XII are grossly intact. No focal motor [...] DO CNOVSP Observed: 10/24/2018 Status: COMPLETED Source: [place] 4:00 PM [facility] Visit (SP) Office ([facility]) IVA CUEVA ([id number]) 1955 F Date Time Provider Department 10/24/18 4:00 PM OMAR GROSS During your visit today, we recorded the following information about you: Temperature Pulse Blood pressure Weight 97.4 degrees 86/minute 137/89 83 kg Ania Reed LPN, MARTELL 10/24/2018 4:45 PM Signed Est . Pt. Discuss recent labs, poss tx Sunday Ania Reed, INVESTIGATION SPECIALIST Omar Khari Gross, DO 10/24/2018 8:10 PM Signed Diagnosis: 1) Ovarian cancer. ? HPI: The patient is a 63 year old female who presented to her PCP prior to a trip to [facility] for vaccinations. She reported that she was [...] Taxol x 6 cycles, completed 05/27/13. 6) Beaumont/carbo/cassandra x cycles for biopsy proven metastatic disease [...] No jaundice or rash. No petechiae. NEUROLOGIC: resident caregiver II-XII are grossly intact. No focal motor [...] Omar Gross DO Referring Provider: OMAR GROSS [[id number]] Allergies As of Date: 10/24/2018 Noted Allergy Reaction CODEINE 05/03/2007 5 - Intolerance PERCOCET (OXYCODONE-ACETAMINOPHEN)06/29/2015 9 - Itching Seasonal [Other] 06/05/2007 ULTRAM (TRAMADOL HCL) 01/08/2013 9 - Itching VICODIN (HYDROCODONE-ACETAMINOPHE*08/26/2007 9 - Itching Date Reviewed: 10/24/2018 Reviewed by: Ania Vasquez (Envelope Stuffer) MARTELL Reed - Fully Assessed Reason for Visit: Established Patient [175] Visit Diagnoses:Malignant neoplasm of ovary, unspecified laterality (HCC) [C56.9] Ovarian cancer, unspecified laterality (HCC) [C56.9] Carcinomatosis (HCC) [C80.0] Order(s):CT ABD/PEL W IVCON [[id number]] Order #: [id number] FUTURE CT CHEST W IVCON [[id number]] Order #: [id number] FUTURE iv contrast (will be provided with [...] INVALID FOR* More... Visit Notes: >> Ania Bishop) MARTELL Reed Brea Oct 24, 2018 4:11 PM Status: Signed Est . Pt. Discuss recent labs, poss tx Sunday Ania Reed LPN Encounter Status:Closed by OMAR GROSS DO on 10/24/18 CBC W/DIFF, AUTOMATED Collected: 10/23/2018 Status: C Source: [place] 12:53 PM [facility] REPOSITORY Order Comment: CRITICAL VALUE VERIFIED. CALLED [...] 1420 PATH REV previously reported as: February jalyn Performed By: #### L100.0100 #### [facility] [address] [place], [place], [address] COMPREHENSIVE METABOLIC Collected: 10/23/2018 Status: F Source: [facility] 12:53 PM [facility] REPOSITORY TYPE CODE TESTS RESULT OUT OF [...] GAP 8 Performed By: #### L500.4050 #### [facility] [address] [place], [place], [address] Observed: 10/09/2018 Status: F Source: [place] CDIFF (MOLECULAR) 3:15 PM [facility] REPOSITORY Is the patient receiving laxatives? N New/unexplained onset of 3 or more stools in past 24 hrs? Y Has pt arrived? Y Cdiff-Molecular Normal Reference Range = Negative C. Diff DNA Negative- No toxigenic C. Diff DNA Detected NAAT METHOD Testing was performed using nucleic acid amplification Performed By: #### M100.6796 #### [facility] [address] [place], [address] CBC W/DIFF, AUTOMATED Collected: 10/07/2018 Status: F Source: [place] 9:49 AM [facility] REPOSITORY TYPE CODE TESTS RESULT OUT OF [...] Lymph 1.28 Performed By: #### L100.0100 #### [facility] [address] [place], [address] COMPREHENSIVE METABOLIC Collected: 10/07/2018 Status: F Source: [facility] 9:49 AM [facility] REPOSITORY TYPE CODE TESTS RESULT OUT OF [...] 5-15 Normal GAP 8 Performed By: #### L500.4054 #### [facility] [address] [place], [address] CANCER ANTIGEN 125 Collected: 10/07/2018 Status: F Source: [place] 9:49 AM [facility] REPOSITORY TYPE CODE TESTS RESULT OUT OF RANGE REFERENCE UNITS LAB L3100.5000 0.0-38.1 U/mL High CA125 90.0 2303 Result Comment: Meghna ECLIA methodology Performed at: - [facility] [address] [id number] Ginner Helper: Carlo Bass PhD, Phone: [phone] Performed By: #### L3100.5000 #### [facility] (refer to report for specific site) refer to report for address and phone number BREAST LIMITED Observed: 09/26/2018 Status: F Source: [place] 1:24 PM [facility] REPOSIT[facility] [place] [address] Breast Limited Unilateral MR#: [id number] Acct: [id number] Name: IVA CUEVA Rep #: [id number] : 1955 F 63 From: Shahbaz Munguia MD PCP: Peter Deras MD Status: REG CLI Study: Breast Limited Unilateral Date of Exam: 09/26/18 Exam# [id number] Ordering Dr: Marcy Bruno MD STUDY: ULTRASOUND [...] Shahbaz Munguia MD at 15:18 EST Tel [phone], Service support , CC: Peter Deras MD; Marcy Bruno MD Salt Machine Operator: Signed DIAG MAMM W/CAD, Observed: 09/26/2018 Status: F Source: [place] BILAT 1:24 PM [facility] REPOSITORY [facility] Imaging Services [address] [place] [address] DIAG MAMM W/CAD, BILAT MR#: [id number] Acct: [id number] Name: IVA CUEVA Rep #: [id number] : 1955 F 63 From: Shahbaz Munguia MD PCP: Peter Deras MD Status: REG CLI Study: DIAG MAMM W/CAD, BILAT Date of Exam: 09/26/18 Exam# [id number] Ordering Dr: Marcy Bruno MD MAMMOGRAPHY - [...] Shahbaz Munguia MD at 8:58 EST Tel [phone], Service support , CC: Peter Deras MD; Marcy Bruno MD Salt Machine Operator: Signed BLINDSTITCH LAPEL PADDER OFFICE VISIT Observed: 09/26/2018 Status: F Source: [place] REPORT 6:01 AM [facility] [address] [place] [address] OFFICE VISIT Date of Service: 09/17/18 MR#: [id number] Acct: [id number] Name: IVA CUEVA Rep #: [id number] : 1955 Provider: Marcy Bruno MD Age/Sex: 63/F [place] [facility]: Signed Intake Vital Signs09/17/18 Height 5 ft 4 in 09/17/18 Weight: 189 lb 2 oz 09/17/18 Body Mass Index (BMI) 32.4 09/17/18 Blood Pressure 122/80 H Intake Visit Reasons: ANNUAL Chief Complaint: est annual Field Identification Specialist Required: No Is patient in pain?: No [...] abortions Past Pregnancies Del. DatName GA/WeeksOutcome Route [facility] LocaProviderFOB e ht en ia tn Unknown 1989 Derrick miguel a Unknown 1991 Leandro HPI ANNUAL: Details: VIA CUEVA is a 63 year old who [...] CC: PROGRESS Observed: 08/30/2018 Status: COMPLETED Source: [place] 3:15 PM [facility] O ID: [id number] Author: Omar Gross Service: (none) Author Type: Physician Type: Progress Notes Filed: 09/02/2018 9:16 AM Note Text: Diagnosis: 1) Ovarian cancer. ? HPI: The patient is a 63 year old female who presented to her PCP prior to a trip to [facility] for vaccinations. She reported that she was [...] Taxol x 6 cycles, completed 05/27/13. 6) Beaumont/carbo/cassandra x cycles for biopsy proven metastatic disease [...] No jaundice or rash. No petechiae. NEUROLOGIC: resident caregiver II-XII are grossly intact. No focal motor weakness. ? ASSESSMENT/PLAN: (C56.1, C56.2) Cancer of both ovaries (HCC) (primary encounter diagnosis) (C78.7) Liver metastases (HCC) KPS is 90%. Biopsy-proven recurrence. [place] refractory? -She is tolerating topotecan well thus [...] DO CNOVSP Observed: 08/30/2018 Status: COMPLETED Source: [place] 3:10 PM [facility] Visit (SP) Office ([place]) IVA CUEVA ([id number]) 1955 F Date Time Provider Department 08/30/18 [...] her PCP prior to a trip to [facility] for vaccinations. She reported that she was [...] Taxol x 6 cycles, completed 05/27/13. 6) Beaumont/carbo/cassandra x cycles for biopsy proven metastatic disease [...] No jaundice or rash. No petechiae. NEUROLOGIC: resident caregiver II-XII are grossly intact. No focal motor weakness. ? ASSESSMENT/PLAN: (C56.1, C56.2) Cancer of both ovaries (HCC) (primary encounter diagnosis) (C78.7) Liver metastases (HCC) KPS is 90%. Biopsy-proven recurrence. [place] refractory? -She is tolerating topotecan well thus [...] Omar Gross DO Referring Provider: OMAR GROSS [[id number]] Allergies As of Date: 08/30/2018 Noted Allergy [...] METABOLIC Collected: 08/26/2018 Status: F Source: [place] 4:19 PM [facility] REPOSITORY TYPE CODE TESTS RESULT OUT OF [...] GAP 11 Performed By: #### L500.4050 #### [facility] [address] [place], [place] [address], [address] CBC W/DIFF, AUTOMATED Collected: 08/26/2018 Status: F Source: [place] 4:19 PM [facility] REPOSITORY TYPE CODE TESTS RESULT OUT OF [...] Normal RARE Performed By: #### L100.0100 #### [facility] [address] [place] [address], [address] CANCER ANTIGEN 125 Collected: 08/26/2018 Status: F Source: [place] 4:19 PM [facility] REPOSITORY TYPE CODE TESTS RESULT OUT OF RANGE REFERENCE UNITS LAB L3100.5000 0.0-38.1 U/mL High CA125 59.5 2303 Result Comment: [employer] ECLIA methodology Performed at: - [facility] [address] [id number] Ginner Helper: Carlo Bass PhD, Phone: [phone] Performed By: #### L3100.5000 #### [facility] (refer to report for specific site) refer to report for address and phone number HOSP Observed: 08/12/2018 Status: COMPLETED Source: [place] 12:00 AM [facility] Patient Update (HEMAWS) СВЕТЛАНАIVA CARDENAS ([id number]) 1955 F Date Time Provider Department 08/12/18 OMAR GROSS During your visit today, we recorded the following information about you: Joshua Woods RN, RN 08/12/2018 3:58 PM Signed Jacinta Tariq from [facility] prior auth called to verify pt's dose of Avastin. Pt's weight has changed and wanted to check what dose of Avastin pt should be getting. Jane checked with Dr Gross and pt should be receiving 15mg/kg (currently 88kg which would be a dose of 1320mg). Jacinta Tariq notified of this change and new order written and faxed to [facility] and Jane faxed new order to [facility] as well. Reference number is [id number] and Jacinta Tariq's fax number is [phone]. Reference number written on fax cover sheet [...] * FLUTICASONE 50 MCG/ACTUATION * Use 1 [place] in each nostril o* ERGOCALCIFEROL (VITAMIN D2) [...] 3:52 PM Status: Signed Jacinta Tariq from [facility] prior auth called to verify pt's dose of Avastin. Pt's weight has changed and wanted to check what dose of Avastin pt should be getting. Jane checked with Dr Gross and pt should be receiving 15mg/kg (currently 88kg which would be a dose of 1320mg). Jacinta Marciano notified of this change and new order written and faxed to [facility] and Jane faxed new order to [facility] as well. Reference number is [id number] and Jacinta Marciano's fax number is [phone]. Reference number written on fax cover sheet per her request. Encounter Status:Closed by JOSHUA WOODS on 08/12/18 TYPE AND SCREEN Collected: 08/05/2018 Status: F Source: [place] 12:22 PM [facility] REPOSITORY Order Comment: Reason for Type AND Screen/Red Cells: ANEMIA TYPE CODE TESTS RESULT OUT OF RANGE REFERENCE UNITS LAB B10.0800 O Normal BLOOD TYPE GEL NEGATIVE LAB B100.4000 Normal Antibody NEGATIVE Screen Performed By: #### B101.7450 #### [facility] [address] [place], [place], [address] Collected: 08/05/2018 Status: F Source: [place] 12:22 PM [facility] REPOSITORY TYPE CODE TESTS RESULT OUT OF REFERENCE UNITS RANGE LAB U100.0000 [id number] TRANSFUSED PRODUCT: T AND S with Crossmatch, Red Cells COUNT: 1 Performed By: #### U100.0000 #### [facility] - refer to report for specific site CBC W/DIFF, AUTOMATED Collected: 08/05/2018 Status: F Source: [place] 12:10 PM [facility] REPOSITORY TYPE CODE TESTS RESULT OUT OF [...] Lymph 0.97 Performed By: #### L100.0100 #### [facility] [address] [place], [address] COMPREHENSIVE METABOLIC Collected: 08/05/2018 Status: F Source: [facility] 12:10 PM [facility] REPOSITORY TYPE CODE TESTS RESULT OUT OF [...] GAP 8 Performed By: #### L500.4050 #### [facility] [address] [place], [address] CBC W/DIFF, AUTOMATED Collected: 07/29/2018 Status: F Source: [place] 1:57 PM [facility] REPOSITORY TYPE CODE TESTS RESULT OUT OF [...] ANISO 2+ Performed By: #### L100.0100 #### [facility] [address] [place], [address] CBC W/DIFF, AUTOMATED Collected: 07/23/2018 Status: C Source: [place] 2:30 PM [facility] REPOSITORY TYPE CODE TESTS RESULT OUT OF [...] Iman gunderson Performed By: #### L100.0100 #### [facility] [address] [place], [address] COMPREHENSIVE METABOLIC Collected: 07/23/2018 Status: F Source: [facility] 2:30 PM [facility] REPOSITORY TYPE CODE TESTS RESULT OUT OF [...] GAP 7 Performed By: #### L500.4050 #### [facility] [address] [place], [place], [address] CANCER ANTIGEN 125 Collected: 07/23/2018 Status: F Source: [place] 2:30 PM [facility] REPOSITORY TYPE CODE TESTS RESULT OUT OF RANGE REFERENCE UNITS LAB L3100.5000 0.0-38.1 U/mL High CA125 59.4 2303 Result Comment: Meghna ECLIA methodology Performed at: - [facility], [place], [place] [id number] Ginner Helper: Carlo Bass PhD, Phone: [phone] Performed By: #### L3100.5000 #### [facility] (refer to report for specific site) refer to report for address and phone number CNPN Observed: 07/23/2018 Status: COMPLETED Source: [place] 12:00 AM [facility] REPOSITORY Telephone (HEMAWS) IVA CUEVA ([id number]) 1955 F Date Time Provider Department 07/23/18 OMAR GROSS During your visit today, we recorded the following information about you: Josephine Vance Psr 07/23/2018 10:56 AM Signed Patient calling in and rescheduled the OV from 07/25 to 08/12. Patient stated she is unable to do her chemo in 3 weeks and would like a call from Dr. Gross today if possible about her upcoming treatment dates. Please advise and call patient at [phone]. Omar Gross DO 07/23/2018 11:04 AM Signed [...] week and then have 6 week span. Omar Lucia DO Ania Gross LPN, MARTELL 07/23/2018 4:48 PM Signed Pt. [...] * FLUTICASONE 50 MCG/ACTUATION * Use 1 Grayland in each nostril o* ERGOCALCIFEROL (VITAMIN D2) [...] 07/23/18 PROGRESS Observed: 07/04/2018 Status: COMPLETED Source: [place] 3:45 PM [facility] REPOSITORY HNO ID: [id number] Author: Omar Gross Service: (none) Author Type: Physician Type: Progress Notes Filed: 07/04/2018 3:55 PM Note Text: Diagnosis: 1) Ovarian cancer. ? HPI: The patient is a 63 year old female who presented to her PCP prior to a trip to [facility] for vaccinations. She reported that she was [...] Taxol x 6 cycles, completed 05/27/13. 6) Beaumont/carbo/cassandra x cycles for biopsy proven metastatic disease [...] No jaundice or rash. No petechiae. NEUROLOGIC: resident caregiver II-XII are grossly intact. No focal motor weakness. ? ASSESSMENT/PLAN: (C56.1, C56.2) Cancer of both ovaries (HCC) (primary encounter diagnosis) (C78.7) Liver metastases (HCC) KPS is 90%. Biopsy-proven recurrence. [place] refractory? -She is tolerating topotecan well thus [...] DO CNOVSP Observed: 07/04/2018 Status: COMPLETED Source: [place] 11:00 AM [facility] REPOSITORY Visit (SP) Office (PRISCILLA) IVA CUEVA ([id number]) 1955 F Date Time Provider Department 07/04/18 [...] her PCP prior to a trip to [facility] for vaccinations. She reported that she was [...] Taxol x 6 cycles, completed 05/27/13. 6) Beaumont/carbo/cassandra x cycles for biopsy proven metastatic disease [...] No jaundice or rash. No petechiae. NEUROLOGIC: resident caregiver II-XII are grossly intact. No focal motor weakness. ? ASSESSMENT/PLAN: (C56.1, C56.2) Cancer of both ovaries (HCC) (primary encounter diagnosis) (C78.7) Liver metastases (HCC) KPS is 90%. Biopsy-proven recurrence. [place] refractory? -She is tolerating topotecan well thus [...] Omar Gross DO Referring Provider: OMAR GROSS [[id number]] Allergies As of Date: 07/04/2018 Noted Allergy [...] * FLUTICASONE 50 MCG/ACTUATION * Use 1 Grayland in each nostril o* ERGOCALCIFEROL (VITAMIN D2) [...] cramps [R25.2] INVALID FOR* Encounter Status:Closed by MOAR GROSS DO on 07/04/18 COMPREHENSIVE METABOLIC Collected: 07/03/2018 Status: F Source: [place] 11:59 AM [facility] REPOSITORY TYPE CODE TESTS RESULT OUT OF [...] GAP 10 Performed By: #### L500.4050 #### [facility] [address] [place], [address] CBC W/DIFF, AUTOMATED Collected: 07/03/2018 Status: C Source: [place] 11:59 AM [facility] REPOSITORY TYPE CODE TESTS RESULT OUT OF [...] 07/04/18 1432 PATH REV previously reported as: Iman gunderson Performed By: #### L100.0100 #### [facility] [address] [place], [address] CANCER ANTIGEN 125 Collected: 07/03/2018 Status: F Source: [place] 11:59 AM [facility] REPOSITORY TYPE CODE TESTS RESULT OUT OF RANGE REFERENCE UNITS LAB L3100.5000 0.0-38.1 U/mL High CA125 72.9 2303 Result Comment: [employer] ECLIA methodology Performed at: [facility] [address] [id number] Ginner Helper: Carlo Bass PhD, Phone: [phone] Performed By: #### L3100.5000 #### [facility] (refer to report for specific site) refer to report for address and phone number CBC W/DIFF, AUTOMATED Collected: 06/26/2018 Status: F Source: [place] 10:05 AM [facility] REPOSITORY TYPE CODE TESTS RESULT OUT OF [...] Lymph 1.44 Performed By: #### L100.0100 #### [facility] [address] [place], [address] [facility] Observed: 06/18/2018 Status: COMPLETED Source: [place] 12:00 AM [facility] REPOSITORY Telephone (HEMAWS) IVA CUEVA ([id number]) 1955 F Date Time Provider Department 06/18/18 OMAR GROSS During your visit today, we recorded the following information about you: Bettina Orona Pss 06/18/2018 2:15 PM Signed Maday from [facility] Infusion called in - states that pt is supposed to start Aloxi infusion (?) today - they need an order from Dr. Gross that has his signature on it. Please fax signed order to [phone]. Jane James LPN 06/18/2018 2:28 PM Signed [...] DX code and signature. Please resend to [phone] Thank you Hari Avilez PSR Jane James LPN 06/19/2018 4:39 PM Signed Spoke with Lilly at [facility] infusion suite. She will call back [...] * FLUTICASONE 50 MCG/ACTUATION * Use 1 Grayland in each nostril o* ERGOCALCIFEROL (VITAMIN D2) [...] 06/18/18 PROGRESS Observed: 06/13/2018 Status: COMPLETED Source: [place] 3:14 PM [facility] REPOSITORY HNO ID: [id number] Author: Omar Gross Service: (none) Author Type: Physician Type: Progress Notes Filed: 06/14/2018 9:51 AM Note Text: Diagnosis: 1) Ovarian cancer. ? HPI: The patient is a 63 year old female who presented to her PCP prior to a trip to [facility] for vaccinations. She reported that she was [...] Taxol x 6 cycles, completed 05/27/13. 6) Beaumont/carbo/cassandra x cycles for biopsy proven metastatic disease [...] changes. She's undergone several injections by her intraoperative neuro tech they have not helped. This is her [...] No jaundice or rash. No petechiae. NEUROLOGIC: resident caregiver II-XII are grossly intact. No focal motor weakness. ? ASSESSMENT/PLAN: (C56.1, C56.2) Cancer of both ovaries (HCC) (primary encounter diagnosis) (C78.7) Liver metastases (HCC) KPS is 90%. Biopsy-proven recurrence. [place] refractory? -She is tolerating topotecan well thus [...] DO CNOVSP Observed: 06/13/2018 Status: COMPLETED Source: [place] 3:00 PM [facility] REPOSITORY Visit (SP) Office (HEMAWS) IVA CUEVA ([id number]) 1955 F Date Time Provider Department 06/13/18 3:00 PM OMAR GROSS During your visit today, we recorded the following information about you: Temperature Pulse Blood pressure Weight 97.5 degrees 94/minute 137/75 86.9 kg Jane James MARTELL 06/13/2018 3:24 PM Signed Est patient. Discuss recent labs @[facility], next round of treatment. Jane James MARTELL Nelson Khari DO Ginny 06/14/2018 9:51 AM Signed Diagnosis: 1) Ovarian cancer. ? HPI: The patient is a 63 year old female who presented to her PCP prior to a trip to [facility] for vaccinations. She reported that she was [...] Taxol x 6 cycles, completed 05/27/13. 6) Beaumont/carbo/cassandra x cycles for biopsy proven metastatic disease [...] changes. She's undergone several injections by her intraoperative neuro tech they have not helped. This is her [...] No jaundice or rash. No petechiae. NEUROLOGIC: resident caregiver II-XII are grossly intact. No focal motor weakness. ? ASSESSMENT/PLAN: (C56.1, C56.2) Cancer of both ovaries (HCC) (primary encounter diagnosis) (C78.7) Liver metastases (HCC) KPS is 90%. Biopsy-proven recurrence. [place] refractory? -She is tolerating topotecan well thus [...] Omar Gross DO Referring Provider: OMAR GROSS [[id number]] Allergies As of Date: 06/13/2018 Noted Allergy [...] * FLUTICASONE 50 MCG/ACTUATION * Use 1 Grayland in each nostril o* ERGOCALCIFEROL (VITAMIN D2) 5* Take 2 capsules a week for 8 * MULTIVITAMIN TABLET Take 1 tablet by mouth once d* Medication notes this encounter GABAPENTIN 300 MG CAPSULE >> Jane James LPN 06/13/2018 3:07 PM >> JANE JAMES LPN [facility] Jun 13, 2018 3:07 PM Taking [...] Notes: >> Jane James LPN [facility] Jun 13, 2018 3:09 PM Status: Signed Est patient. Discuss recent labs @[facility], next round of treatment. Jane James LPN Encounter Status:Closed by OMAR GROSS DO on 06/14/18 CANCER ANTIGEN 125 Collected: 06/10/2018 Status: F Source: [place] 12:29 PM [facility] REPOSITORY TYPE CODE TESTS RESULT OUT OF RANGE REFERENCE UNITS LAB L3100.5000 0.0-38.1 U/mL High CA125 62.5 2303 Result Comment: Meghna ECLIA methodology Performed at: CB - [facility] [address] [id number] Ginner Helper: Carlo Bass PhD, Phone: [phone] Performed By: #### L3100.5000 #### [facility] (refer to report for specific site) refer to report for address and phone number CBC W/DIFF, AUTOMATED Collected: 06/10/2018 Status: F Source: [place] 12:25 PM [facility] REPOSITORY TYPE CODE TESTS RESULT OUT OF [...] Lymph 1.43 Performed By: #### L100.0100 #### [facility] [address] [place], [address] COMPREHENSIVE METABOLIC Collected: 06/10/2018 Status: F Source: [place] 12:25 PM [facility] REPOSITORY TYPE CODE TESTS RESULT OUT OF [...] GAP 11 Performed By: #### L500.4050 #### [facility] [address], [place], [address] CBC W/DIFF, AUTOMATED Collected: 05/18/2018 Status: F Source: [place] 12:51 PM [facility] REPOSITORY TYPE CODE TESTS RESULT OUT OF [...] Lymph 1.60 Performed By: #### L100.0100 #### [facility] [address] [place], [address] COMPREHENSIVE METABOLIC Collected: 05/18/2018 Status: F Source: [facility] 12:51 PM [facility] REPOSITORY TYPE CODE TESTS RESULT OUT OF [...] GAP 4 Performed By: #### L500.4050 #### [facility] [address] [place], [address] CT ABD/PEL W IVCON Observed: 04/29/2018 Status: F Source: [place] 2:46 PM [facility] REPOSITORY * * *Final Report* * * DATE OF EXAM: Apr 29 2018 2:46PM [facility] 0530 - CT ABD/PEL W [...] new adenopathy is seen. 3. Fatty liver Salt Machine Operator: PSCB Transcribe Date/Time: Apr 30 2018 4:02P Dictated by : ANTHONY DIAZ DO This examination was interpreted and the report reviewed and electronically signed by: ANTHONY DIAZ DO on Apr 30 2018 4:35PM EST [id number] Observed: 04/29/2018 Status: COMPLETED Source: [place] 2:34 PM [facility] REPOSITORY HNO ID: [id number] Author: Ofelia Landeros Ct Service: (none) Author [...] has been calibrated to be traceable to IDSC. An eGFR <60 mL/min/1.73m2 for >3 months [...] Ct April 29, 2018 2:34 PM [place] MEI BMP Collected: 04/29/2018 Status: F Source: [place] 2:00 PM [facility] REPOSITORY TYPE CODE TESTS RESULT OUT [...] has been calibrated to be traceable to IDSC. An eGFR <60 mL/min/1.73m2 for >3 months is consistent with chronic kidney disease. Refer to KDOQI guidelines for clinical interpretation. In patients with unstable renal function, e.g. those with acute kidney injury, the eGFR may not accurately reflect actual GFR. [place] ABS GR + CBC Collected: 04/29/2018 Status: F Source: [place] 2:00 PM [facility] REPOSITORY TYPE CODE TESTS RESULT OUT OF REFERENCE UNITS RANGE LAB WWBC 3.70-11.00 k/uL [place] WBC 4.60 LAB WRBC 3.90-5.20 m/uL Low [place] RBC 3.30 LAB WHGB 11.5-15.5 g/dL Low [place] Hemoglobin 10.4 LAB WHCT 36.0-46.0 % Low [place] Hematocrit 32.4 LAB WMCV 80.0-100.0 fL [place] MCV 98.2 LAB WMCH 26.0-34.0 pg [place] MCH 31.5 LAB WMCHC 30.5-36.0 g/dL [place] MCHC 32.1 LAB WRDW 11.5-15.0 % [place] High RDW 16.8 LAB WPLT 150-400 k/uL [place] High Platelet Cnt 597 LAB WMPV 9.0-12.7 fL [place] MPV 9.9 Result Comment: Test performed at: [facility], [address] [place] [address]. LAB ABGRAN 1.45-7.50 k/uL Absol Gran 2.53 Count [place] CREATININE Collected: 04/29/2018 Status: F Source: [place] 1:22 PM [facility] REPOSITORY TYPE CODE TESTS RESULT OUT OF REFERENCE UNITS RANGE LAB WCRET 0.7-1.4 mg/dL [place] Creatinine 0.9 CNPN Observed: 04/24/2018 Status: COMPLETED Source: [place] 12:00 AM [facility] REPOSITORY Telephone (PRISCILLA) IVA CUEVA ([id number]) 1955 F Date Time Provider Department 04/24/18 OMAR GROSS During your visit today, we recorded the following information about you: Aruna Nielson 04/24/2018 11:47 AM Signed Elli from [facility] called asking for information about the patients ordered CT scan. The patient decided that he would like to have the CT at [facility] and the order needs to be sent over. Please call Elli back at [phone]. Jane James LPN 04/24/2018 11:50 AM Signed [...] since she's had all previous CTs at [facility], we'll need to get a CD of her most recent CTs from there sent her to get uploaded. DO Ashleigh Dominguez PSR 04/26/2018 9:05 AM Signed Left voicemail for patient to return call re: below and to arrange for documentation from [facility] results. Ashleigh Gandara PSR Daiana Leachfhooaida, PSR 04/26/2018 11:54 AM Signed Patient returned call and is aware of message below Jane James LPN 04/26/2018 12:21 PM Signed Disc requested from [facility]. Jane James LPN Allergies As of [...] by mouth every * OMEPRAZOLE 40 MG CAPSULE,BASESM* Take 1 capsule by mouth once * [...] * FLUTICASONE 50 MCG/ACTUATION * Use 1 Grayland in each nostril o* ERGOCALCIFEROL (VITAMIN D2) [...] 04/18/2018 Status: F Source: [place] 12:18 PM [facility] Medical Records Department [address] [place] [address] Downtime Report MR#: [id number] Acct: [id number] Name: IVA CUEVA Rep #: [id number] : 1955 63 From: [place] PCP: Peter Deras MD Status: REG CLI This patient was seen during an EMR downtime April 01, 2018 - April 08, 2018. This patient may have a combination of paper and electronic documentation or all paper documentation. All documentation is viewable within the e-chart portion of [employer] for each patient visit. DOWNTIME REPORT Observed: 04/18/2018 Status: F Source: [place] 12:18 PM [facility] Medical Records Department [address] [place] [address] Downtime Report MR#: [id number] Acct: [id number] Name: GREGORIO CUEVAShu Cottrell Rep #: [id number] : 1955 63 From: [place] PCP: Peter Deras MD Status: REG CLI This patient was seen during an EMR downtime April 01, 2018 - April 08, 2018. This patient may have a combination of paper and electronic documentation or all paper documentation. All documentation is viewable within the e-chart portion of [employer] for each patient visit. DOWNTIME REPORT Observed: 04/18/2018 Status: F Source: [place] 12:17 PM [facility] Medical Records Department [address] [place] [address] Downtime Report MR#: [id number] Acct: [id number] Name: IVA CUEVA Rep #: [id number] : 1955 63 From: [place] PCP: [...] 04/18/2018 Status: F Source: [place] 12:17 PM [facility] Medical Records Department [address] [place] [address] Downtime Report MR#: [id number] Acct: [id number] Name: GREGORIO CUEVAShu Cottrell Rep #: [id number] : 1955 63 From: [place] PCP: Peter Deras MD Status: REG CLI This patient was seen during an EMR downtime April 01, 2018 - April 08, 2018. This patient may have a combination of paper and electronic documentation or all paper documentation. All documentation is viewable within the e-chart portion of [employer] for each patient visit. DOWNTIME REPORT Observed: 04/18/2018 Status: F Source: [place] 12:16 PM [facility] Medical Records Department [address] [place] [address] Downtime Report MR#: [id number] Acct: [id number] Name: GREGORIO CUEVAShu Cottrell Rep #: [id number] : 1955 63 From: Kamron [place] PCP: Peter Deras MD Status: DEP CLI This patient was seen during an EMR downtime April 01, 2018 - April 08, 2018. This patient may have a combination of paper and electronic documentation or all paper documentation. All documentation is viewable within the e-chart portion of [employer] for each patient visit. PROGRESS Observed: 04/18/2018 Status: COMPLETED Source: [place] 12:03 PM [facility] REPOSITORY HNO ID: [id number] Author: Terrance Renee Service: (none) Author Type: Physician Type: Progress Notes Filed: 04/19/2018 8:10 AM Note Text: Diagnosis: 1) Ovarian cancer. ? HPI: The patient is a 63 year old female who presented to her PCP prior to a trip to [facility] for vaccinations. She reported that she was [...] Taxol x 6 cycles, completed 05/27/13. 6) Beaumont/carbo/cassandra x cycles for biopsy proven metastatic disease [...] will be going on a cruise to [place] the second week of April. She saw [...] No jaundice or rash. No petechiae. NEUROLOGIC: resident caregiver II-XII are grossly intact. No focal motor weakness. ? LABS: review by me and the patient today. ASSESSMENT/PLAN: (C56.1, C56.2) Cancer of both ovaries (HCC) (primary encounter diagnosis) (C78.7) Liver metastases (HCC) KPS is 90%. Biopsy-proven recurrence. [place] refractory.? -She is tolerating topotecan well thus [...] Jo CNOVSP Observed: 04/18/2018 Status: COMPLETED Source: [place] 11:30 AM [facility] REPOSITORY Visit (SP) Office (PRISCILLA) IVA CUEVA ([id number]) 1955 F Date Time Provider Department 04/18/18 11:30 AM TERRANCE RENEE During your visit today, we recorded the following information about you: Temperature Pulse Blood pressure Weight 97.5 degrees 79/minute 177/80 86.6 kg Jane Elaine MOURA 04/18/2018 11:50 AM Signed Est patient. Labs at [facility]. Jane Renee MD 04/19/2018 8:10 AM Signed Diagnosis: 1) Ovarian cancer. ? HPI: The patient is a 63 year old female who presented to her PCP prior to a trip to [facility] for vaccinations. She reported that she was [...] Taxol x 6 cycles, completed 05/27/13. 6) Beaumont/carbo/cassandra x cycles for biopsy proven metastatic disease [...] will be going on a cruise to [place] the second week of April. She saw [...] No jaundice or rash. No petechiae. NEUROLOGIC: resident caregiver II-XII are grossly intact. No focal motor weakness. ? LABS: review by me and the patient today. ASSESSMENT/PLAN: (C56.1, C56.2) Cancer of both ovaries (HCC) (primary encounter diagnosis) (C78.7) Liver metastases (HCC) KPS is 90%. Biopsy-proven recurrence. [place] refractory.? -She is tolerating topotecan well thus [...] Dr. Peter Jo Referring Provider: OMAR GROSS [[id number]] Allergies As of Date: 04/18/2018 Noted Allergy [...] of Service: EST PATIENT VISIT LEVEL 4 [[id number]] Disposition: Return in about 1 week (around [...] * FLUTICASONE 50 MCG/ACTUATION * Use 1 Gray[place] in each nostril o* ERGOCALCIFEROL (VITAMIN D2) [...] Notes: >> Jane James LPN [facility] Apr 18, 2018 11:36 AM Status: Signed Est patient. Labs at [facility]. Jane James LPN Encounter Status:Closed by TERRANCE RENEE MD on 04/19/18 CNCO Observed: 04/18/2018 Status: COMPLETED Source: [place] 12:00 AM [facility] REPOSITORY Letter Text [phone] [address] Catie Jo M.D. bulk picker Section of Gynecologic Oncology Outreach Rep and Women's Health [place] Office: [phone] [email or web address] April 18, 2018 RE: Iva Littleyahaira DOS: 04/12/[address] Bruno This letter is in follow up for your patient, Iva Cueva, who was recently seen in my office. Please see my completed note from that visit in EPIC. If I can be of any further assistance, or if you have any questions, please contact my office. Sincerely, Catie Jo M.D. CMM/adm CC: DO Peter Salazra MD CNPN Observed: 04/18/2018 Status: COMPLETED Source: [place] 12:00 AM [facility] REPOSITORY Telephone (HEMAWS) ANAYGREGORION Ronit ([id number]) 1955 F Date Time Provider Department 04/18/18 [...] please phone pharmacy and notify patient. Terrance eRnee MD Call next week after her CT scan about her blood pressure. MD Lorie Gupta, RN, RN 04/18/2018 12:30 PM Signed Called patient, no answer. Left message to call this office back. Please give patient message below when she calls back and document/close once finished. Thank you. Lroa Escobar 04/18/2018 2:21 PM Signed Please schedule office visit with Dr. Gross after patient has CT and Labs done at [facility]. Hari Avilez PSR 04/18/2018 2:24 PM [...] week. Her CT scan is scheduled at [facility] for 04/26/18 Mar Treadwell Psr Omar Gross DO 04/20/2018 10:10 AM Signed We'll schedule follow up based on upcoming CT results. DO Lora Dominguez Psr Shawn 04/22/2018 10:37 AM Signed Spoke with patient and informed her our office will be contacting her after CT @ [facility] on 04/26. Allergies As of Date: [...] * FLUTICASONE 50 MCG/ACTUATION * Use 1 Grayland in each nostril o* ERGOCALCIFEROL (VITAMIN D2) [...] 04/16/2018 Status: C Source: [place] 10:19 AM [facility] REPOSITORY Order Comment: CRITICAL VALUE VERIFIED. CALLED TO LORIE AT [facility] 04/16/18 1117 Tiki Tran. RESULTS READ BACK BY [...] 04/17/18 0950 PATH REV previously reported as: February jalyn Performed By: #### L100.0100 #### [facility] [address] [place], [address] COMPREHENSIVE METABOLIC Collected: 04/16/2018 Status: F Source: [facility] 10:19 AM [facility] REPOSITORY TYPE CODE TESTS RESULT OUT OF [...] GAP 7 Performed By: #### L500.4050 #### [facility] [address] [place], [place], [address] CANCER ANTIGEN 125 Collected: 04/16/2018 Status: F Source: [place] 10:19 AM [facility] REPOSITORY TYPE CODE TESTS RESULT OUT OF RANGE REFERENCE UNITS LAB L3100.5000 0.0-38.1 U/mL High CA125 48.1 2303 Result Comment: [employer] ECLIA methodology Performed at: - [facility] [id number] Ginner Helper: Carlo Bass PhD, Phone: [phone] Performed By: #### L3100.5000 #### [facility] (refer to report for specific site) refer to report for address and phone number CNOVSP Observed: 04/12/2018 Status: COMPLETED Source: [place] 3:00 PM [facility] REPOSITORY Visit (SP) Office (REY) IVA CUEVA ([id number]) 1955 F Date Time Provider Department 04/12/18 3:00 PM CATIE OJ During your visit today, we recorded the [...] 7 CA 125 (U/mL) - done at [facility] Date Value 01/30/2018 25 08/06/2017 102.9 04/04/2017 [...] She is alert, oriented, pleasant and cooperative. Calender Roll Operator for exam: n/a ASSESSMENT: 1. 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 PLAN: CA125 increasing again If rises after this cycle consider CT scans sooner than planned. If progressing, we reviewed options and definitions. We discussed that she is, by definition, [place] resistant with a 6 month cut-off. However, she had a CR to carboplatin/ Taxol and was right at 6 months for recurrence Given this I would favor another try with carboplatin/ Taxol and consider maintenance therapy with a PARP inhibitor (Olapaprib or Nirapirib), in pts who respond to [place]-based therapy. We discussed differences in PFS based on gene status, but could benefit even if not HRD positive. Consider repeat CT guided biopsy for tissue confirmation and can send some of the biopsy for [facility] or [facility] testing. Would make sure [...] note were sent to: Marcy Bruno MD [address] [place] [address] CC: DO Peter Salazar MD (PCP) Referring Provider: CATIE JO [[id number]] Allergies As of Date: 04/12/2018 Noted Allergy Reaction CODEINE 05/03/2007 5 - Intolerance PERCOCET (OXYCODONE-ACETAMINOPHEN)06/29/2015 9 - Itching Seasonal [Other] 06/05/2007 ULTRAM (TRAMADOL HCL) 01/08/2013 9 - Itching VICODIN (HYDROCODONE-ACETAMINOPHE*08/26/2007 9 - Itching Date Reviewed: 04/12/2018 Reviewed by: Saritha Corrales (Envelope Stuffer) MARTELL Del Cid - Fully Assessed Reason [...] * FLUTICASONE 50 MCG/ACTUATION * Use 1 Grayland in each nostril o* ERGOCALCIFEROL (VITAMIN D2) [...] 04/12/18 PROGRESS Observed: 04/08/2018 Status: COMPLETED Source: [place] 52100:25 AM [facility] REPOSITORY HNO ID: [id number] Author: Catie Jo Service: (none) Author Type: [...] 7 CA 125 (U/mL) - done at [facility] Date Value 01/30/2018 25 08/06/2017 102.9 04/04/2017 [...] She is alert, oriented, pleasant and cooperative. Calender Roll Operator for exam: n/a ASSESSMENT: 1. 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 PLAN: CA125 increasing again If rises after this cycle consider CT scans sooner than planned. If progressing, we reviewed options and definitions. We discussed that she is, by definition, ped[place] resistant with a 6 month cut- off. However, she had a CR to carboplatin/ Taxol and was right at 6 months for recurrence Given this I would favor another try with carboplatin/ Taxol and consider maintenance therapy with a PARP inhibitor (Olapaprib or Nirapirib), in pts who respond to [place]-based therapy. We discussed differences in PFS based on gene status, but could benefit even if not HRD positive. Consider repeat CT guided biopsy for tissue confirmation and can send some of the biopsy for [facility] or [facility] testing. Would make sure that testing is [...] note were sent to: Marcy Bruno MD [address] [place] [address] CC: DO Peter Salazar MD (PCP) CNOVSP Observed: 03/29/2018 Status: COMPLETED Source: [place] 10:40 AM [facility] REPOSITORY Visit (SP) Office (HEMAWS) IVA CUEVA ([id number]) 1955 F Date Time Provider Department 03/29/18 [...] her PCP prior to a trip to [facility] for vaccinations. She reported that she was [...] Taxol x 6 cycles, completed 05/27/13. 6) Beaumont/carbo/cassandra x cycles for biopsy proven metastatic disease [...] No jaundice or rash. No petechiae. NEUROLOGIC: resident caregiver II-XII are grossly intact. No focal motor weakness. ASSESSMENT/PLAN: (C56.1, C56.2) Cancer of both ovaries (HCC) (primary encounter diagnosis) (C78.7) Liver metastases (HCC) KPS is 90%. Biopsy-proven recurrence. [place] refractory. -She is tolerating topotecan well thus [...] Omar Gross DO Referring Provider: OMAR GROSS [[id number]] Allergies As of Date: 03/29/2018 Noted Allergy [...] * FLUTICASONE 50 MCG/ACTUATION * Use 1 Grayland in each nostril o* ERGOCALCIFEROL (VITAMIN D2) [...] 03/29/18 PROGRESS Observed: 03/29/2018 Status: COMPLETED Source: [place] 9:00 AM [facility] REPOSITORY HNO ID: [id number] Author: Omar Gross Service: (none) Author Type: Physician Type: Progress Notes Filed: 03/29/2018 12:11 PM Note Text: Diagnosis: 1) Ovarian cancer. HPI: The patient is a 63 year old female who presented to her PCP prior to a trip to [facility] for vaccinations. She reported that she was [...] Taxol x 6 cycles, completed 05/27/13. 6) Beaumont/carbo/cassandra x cycles for biopsy proven metastatic disease [...] No jaundice or rash. No petechiae. NEUROLOGIC: resident caregiver II-XII are grossly intact. No focal motor weakness. ASSESSMENT/PLAN: (C56.1, C56.2) Cancer of both ovaries (HCC) (primary encounter diagnosis) (C78.7) Liver metastases (HCC) KPS is 90%. Biopsy-proven recurrence. [place] refractory. -She is tolerating topotecan well thus [...] 03/27/2018 Status: F Source: [place] 1:35 PM [facility] REPOSITORY TYPE CODE TESTS RESULT OUT OF [...] Lymph 1.50 Performed By: #### L100.0100 #### [facility] [facility], [address] COMPREHENSIVE METABOLIC Collected: 03/27/2018 Status: F Source: [facility] 1:35 PM [facility] REPOSITORY TYPE CODE TESTS RESULT OUT OF [...] GAP 10 Performed By: #### L500.4050 #### [facility] [address] [place], [address] CANCER ANTIGEN 125 Collected: 03/27/2018 Status: F Source: [place] 1:35 PM [facility] REPOSITORY TYPE CODE TESTS RESULT OUT OF RANGE REFERENCE UNITS LAB L3100.5000 0.0-38.1 U/mL High CA125 49.6 2303 Result Comment: Meghna ECLIA methodology Performed at: - [facility] [address] [id number] Ginner Helper: Carlo Bass PhD, Phone: [phone] Performed By: #### L3100.5000 #### [facility] (refer to report for specific site) refer to report for address and phone number CBC-COMPLETE BLOOD CNT Collected: 03/04/2018 Status: F Source: [place] NO DIFF 1:45 PM [facility] REPOSITORY TYPE CODE TESTS RESULT OUT OF [...] MPV 8.9 Performed By: #### L100.0500 #### [facility] [address] [place], [address] PROGRESS Observed: 02/27/2018 Status: COMPLETED Source: [place] 11:33 AM [facility] REPOSITORY HNO ID: [id number] Author: Omar Gross Service: (none) Author Type: Physician Type: Progress Notes Filed: 02/27/2018 12:24 PM Note Text: Diagnosis: 1) Ovarian cancer. HPI: The patient is a 63 year old female who presented to her PCP prior to a trip to [facility] for vaccinations. She reported that she was [...] Taxol x 6 cycles, completed 05/27/13. 6) Beaumont/carbo/cassandra x cycles for biopsy proven metastatic disease [...] No jaundice or rash. No petechiae. NEUROLOGIC: resident caregiver II-XII are grossly intact. No focal motor weakness. ASSESSMENT/PLAN: 1) Ovarian cancer. KPS is 90%. Biopsy-proven recurrence. [place] refractory. -She is tolerating topotecan well thus [...] DO CNOVSP Observed: 02/27/2018 Status: COMPLETED Source: [place] 11:30 AM [facility] REPOSITORY Visit (SP) Office (PRISCILLA) IVA CUEVA ([id number]) 1955 F Date Time Provider Department 02/27/18 11:30 AM OMAR GROSS During your visit today, we recorded the following information about you: Temperature Pulse Blood pressure Weight 98 degrees 89/minute 127/70 88.5 kg Omar Gross DO 02/27/2018 12:24 PM Signed Diagnosis: 1) Ovarian cancer. HPI: The patient is a 63 year old female who presented to her PCP prior to a trip to [facility] for vaccinations. She reported that she was [...] Taxol x 6 cycles, completed 05/27/13. 6) Beaumont/carbo/cassandra x cycles for biopsy proven metastatic disease [...] No jaundice or rash. No petechiae. NEUROLOGIC: resident caregiver II-XII are grossly intact. No focal motor weakness. ASSESSMENT/PLAN: 1) Ovarian cancer. KPS is 90%. Biopsy-proven recurrence. [place] refractory. -She is tolerating topotecan well thus [...] Ania Reed LPN Referring Provider: OMAR GROSS [[id number]] Allergies As of Date: 02/27/2018 Noted Allergy Reaction CODEINE 05/03/2007 5 - Intolerance PERCOCET (OXYCODONE-ACETAMINOPHEN)06/29/2015 9 - Itching Seasonal [Other] 06/05/2007 ULTRAM (TRAMADOL HCL) 01/08/2013 9 - Itching VICODIN (HYDROCODONE-ACETAMINOPHE*08/26/2007 9 - Itching Date Reviewed: 02/27/2018 Reviewed by: Ania Christina (Envelope Stufferadarsh Reed LPN - Fully Assessed Reason for Visit: [...] * FLUTICASONE 50 MCG/ACTUATION * Use 1 [place] in each nostril o* ERGOCALCIFEROL (VITAMIN D2) [...] INVALID FOR* Visit Notes: >> Ania Vasquez (Martell) MARTELL Reed SunFebruary 27, 2018 11:49 AM Status: Signed Est pt. Discuss recent labs, tx tomorrow Ania Reed LPN Encounter Status:Closed by OMAR GROSS DO on 02/27/18 CBC W/DIFF, AUTOMATED Collected: 02/27/2018 Status: F Source: [place] 9:44 AM [facility] REPOSITORY TYPE CODE TESTS RESULT OUT OF [...] Lymph 1.43 Performed By: #### L100.0100 #### [facility] [address] [place], [place], [address] COMPREHENSIVE METABOLIC Collected: 02/27/2018 Status: F Source: [place] 9:44 AM [facility] REPOSITORY TYPE CODE TESTS RESULT OUT OF [...] GAP 7 Performed By: #### L500.4050 #### [facility] [place], [address] CANCER ANTIGEN 125 Collected: 02/27/2018 Status: F Source: [place] 9:44 AM [facility] REPOSITORY TYPE CODE TESTS RESULT OUT OF RANGE REFERENCE UNITS LAB L3100.5000 0.0-38.1 U/mL Normal CA125 27.9 2303 Result Comment: Meghna ECLIA methodology Performed at: - [facility] [id number] Ginner Helper: Carlo Bass PhD, Phone: [phone] Performed By: #### L3100.5000 #### [facility] (refer to report for specific site) refer to report for address and phone number TYPE AND SCREEN Collected: 02/12/2018 Status: F Source: [place] 12:26 PM [facility] REPOSITORY Order Comment: CMV NEG?* N Give When? [id number] Irradiated? N Leukodepleted? Y Reason for Type AND Screen/Red Cells: ANEMIA TYPE CODE TESTS RESULT OUT OF RANGE REFERENCE UNITS LAB B10.0800 O Normal BLOOD TYPE GEL NEGATIVE LAB B100.4000 Normal Antibody NEGATIVE Screen Performed By: #### B101.7450 #### [facility] [place], [address] Collected: 02/12/2018 Status: F Source: [place] 12:26 PM [facility] REPOSITORY TYPE CODE TESTS RESULT OUT OF REFERENCE UNITS RANGE LAB U100.0000 [id number] TRANSFUSED PRODUCT: T AND S with Crossmatch, Red Cells COUNT: 2 Performed By: #### U100.0000 #### [facility] - refer to report for specific site CBC W/DIFF, AUTOMATED Collected: 02/11/2018 Status: C Source: [place] 11:55 AM [facility] REPOSITORY TYPE CODE TESTS RESULT OUT OF [...] 02/12/18 0957 PATH REV previously reported as: Iman gunderson Performed By: #### L100.0100 #### [facility] [address] [facility] [place], [place], [address] CBC-COMPLETE BLOOD CNT Collected: 02/04/2018 Status: F Source: [place] NO DIFF 1:45 PM [facility] REPOSITORY TYPE CODE TESTS RESULT OUT OF [...] MPV 9.4 Performed By: #### L100.0500 #### [facility] [address] [place], [place], [address] CBC W/DIFF, AUTOMATED Collected: 01/30/2018 Status: C Source: [place] 12:37 PM [facility] REPOSITORY TYPE CODE TESTS RESULT OUT OF [...] 01/31/18 1145 PATH REV previously reported as: February jalyn Performed By: #### L100.0100 #### [facility] [address] [place], [place], [address] COMPREHENSIVE METABOLIC Collected: 01/30/2018 Status: F [facility]37 PM [facility] REPOSITORY TYPE CODE TESTS RESULT OUT OF [...] GAP 7 Performed By: #### L500.4050 #### [facility] [address] [place], [place], [address] CANCER ANTIGEN 125 Collected: 01/30/2018 Status: F Source: [place] 12:37 PM [facility] REPOSITORY TYPE CODE TESTS RESULT OUT OF RANGE REFERENCE UNITS LAB L3100.5000 0.0-38.1 U/mL Normal CA125 25.0 2303 Result Comment: Meghna ECLIA methodology Performed at: - [facility] [address], [place], [place] [id number] Ginner Helper: Carlo Bass PhD, Phone: [phone] Performed By: #### I8042.5000 #### [facility] (refer to report for specific site) refer to report for address and phone number CBC W/DIFF, AUTOMATED Collected: 01/14/2018 Status: F Source: [place] 11:40 AM [facility] REPOSITORY TYPE CODE TESTS RESULT OUT OF [...] Lymph 1.47 Performed By: #### L100.0100 #### [facility] [address] [place], [address] PROGRESS Observed: 01/09/2018 Status: COMPLETED Source: [place] 4:02 PM [facility] REPOSITORY HNO ID: [id number] Author: Omar Gross Service: (none) Author Type: Physician Type: Progress Notes Filed: 01/11/2018 9:47 AM Note Text: Diagnosis: 1) Ovarian cancer. HPI: The patient is a 62 year old female who presented to her PCP prior to a trip to [facility] for vaccinations. She reported that she was [...] Taxol x 6 cycles, completed 05/27/13. 6) Beaumont/carbo/cassandra x cycles for biopsy proven metastatic disease [...] No jaundice or rash. No petechiae. NEUROLOGIC: resident caregiver II-XII are grossly intact. No focal motor weakness. ASSESSMENT/PLAN: 1) Ovarian cancer. KPS is 90%. Biopsy-proven recurrence. [place] refractory. -She is tolerating topotecan well thus far. -CA125 trending down. -Symptomatic anemia requiring transfusion. Plan: -Cycle #4 topotecan on Sunday 01/14 pending CBC results that day. -Decrease Neupogen to 7 days post cycle. -CT C/A/P pending CA125 trend. -Continue olanzapine. -Somatic BRCA mutation analysis negative. Omar Gross DO CNOVSP Observed: 01/09/2018 Status: COMPLETED Source: [place] 4:00 PM [facility] REPOSITORY Visit (SP) Office (HEMAWS) IVA CUEVA ([id number]) 1955 F Date Time Provider Department 01/09/18 [...] her PCP prior to a trip to [facility] for vaccinations. She reported that she was [...] Taxol x 6 cycles, completed 05/27/13. 6) Beaumont/carbo/cassandra x cycles for biopsy proven metastatic disease [...] No jaundice or rash. No petechiae. NEUROLOGIC: resident caregiver II-XII are grossly intact. No focal motor weakness. ASSESSMENT/PLAN: 1) Ovarian cancer. KPS is 90%. Biopsy-proven recurrence. [place] refractory. -She is tolerating topotecan well thus far. -CA125 trending down. -Symptomatic anemia requiring transfusion. Plan: -Cycle #4 topotecan on Sunday 01/14 pending CBC results that day. -Decrease Neupogen to 7 days post cycle. -CT C/A/P pending CA125 trend. -Continue olanzapine. -Somatic BRCA mutation analysis negative. Omar Gross DO Referring Provider: OMAR GROSS [[id number]] Allergies As of Date: 01/09/2018 Noted Allergy [...] * FLUTICASONE 50 MCG/ACTUATION * Use 1 [place] in each nostril o* ERGOCALCIFEROL (VITAMIN D2) 5* Take 2 capsules a week for 8 * MULTIVITAMIN TABLET Take 1 tablet by mouth once d* Medication notes this encounter NABUMETONE 500 MG TABLET >> Jane James LPN 01/09/2018 3:59 PM >> JANE JAMES LPN Jan 09, 2018 3:59 PM Takes 1 tablet twice a day GABAPENTIN 300 MG CAPSULE >> Jane James MARTELL 01/09/2018 3:58 PM >> JANE JAMES LPN [...] FOR* Visit Notes: >> Jane James MARTELL SunJan 09, 2018 3:59 PM Status: Signed Est patient. Discuss recent labs. Jane James LPN Encounter Status:Closed by OMAR GROSS DO on 01/11/18 CBC W/DIFF, AUTOMATED Collected: 01/09/2018 Status: C Source: [place] 10:12 AM [facility] REPOSITORY TYPE CODE TESTS RESULT OUT OF [...] 01/10/18 1453 PATH REV previously reported as: February jalyn Performed By: #### L100.0100 #### [facility] [address] [place], [address] COMPREHENSIVE METABOLIC Collected: 01/09/2018 Status: F Source: [facility] 10:12 AM [facility] REPOSITORY TYPE CODE TESTS RESULT OUT OF [...] GAP 6 Performed By: #### L500.4050 #### [facility] [address] [place], [place], [address] CANCER ANTIGEN 125 Collected: 01/09/2018 Status: F Source: [place] 10:12 AM [facility] REPOSITORY TYPE CODE TESTS RESULT OUT OF RANGE REFERENCE UNITS LAB L3100.5000 0.0-38.1 U/mL Normal CA125 25.2 2303 Result Comment: Meghna ECLIA methodology Performed at: [address] [place], [place] [id number] Ginner Helper: Carlo Bass PhD, Phone: [phone] Performed By: #### L3100.5000 #### [facility] (refer to report for specific site) refer to report for address and phone number TYPE AND SCREEN Collected: 01/02/2018 Status: F Source: [place] 4:21 PM [facility] REPOSITORY Order Comment: CMV NEG?* N Give When? When Ready Irradiated? N Leukodepleted? Y Reason for Type AND Screen/Red Cells: ANEMIA TYPE CODE TESTS RESULT OUT OF RANGE REFERENCE UNITS LAB B10.0800 O Normal BLOOD TYPE GEL NEGATIVE LAB B100.4000 Normal Antibody NEGATIVE Screen Performed By: #### B101.7450 #### [facility] [address] [place], [address] Collected: 01/02/2018 Status: F Source: [place] 4:21 PM [facility] REPOSITORY TYPE CODE TESTS RESULT OUT OF REFERENCE UNITS RANGE LAB U100.0000 [id number] TRANSFUSED PRODUCT: T AND S with Crossmatch, Red Cells COUNT: 2 Performed By: #### U100.0000 #### [facility] - refer to report for specific site CBC W/DIFF, AUTOMATED Collected: 01/02/2018 Status: F Source: [place] 11:27 AM [facility] REPOSITORY TYPE CODE TESTS RESULT OUT OF [...] Normal RARE Performed By: #### L100.0100 #### [facility] [address] [place], [place], [address] CBC W/DIFF, AUTOMATED Collected: 12/24/2017 Status: C Source: [place] 1:00 PM [facility] REPOSITORY TYPE CODE TESTS RESULT OUT OF [...] as: February Performed By: #### L100.0100 #### [facility] [place], [address] CNOVSP Observed: 12/19/2017 Status: COMPLETED Source: [place] 11:50 AM [facility] REPOSITORY Visit (SP) Office (HEMANAND) IVA CUEVA ([id number]) 1955 F Date Time Provider Department 12/19/17 11:50 AM OMAR GROSS During your visit today, we recorded the following information about you: Temperature Pulse Blood pressure Weight 98 degrees 106/minute 131/83 87.1 kg Omar Gross DO 12/19/2017 12:39 PM Signed Diagnosis: 1) Ovarian cancer. HPI: The patient is a 62 year old female who presented to her PCP prior to a trip to [facility] for vaccinations. She reported that she was [...] Taxol x 6 cycles, completed 05/27/13. 6) Beaumont/carbo/cassandra x cycles for biopsy proven metastatic disease [...] No jaundice or rash. No petechiae. NEUROLOGIC: resident caregiver II-XII are grossly intact. No focal motor weakness. ASSESSMENT/PLAN: 1) Ovarian cancer. KPS is 90%. Biopsy-proven recurrence. [place] refractory. -She is tolerating topotecan well thus [...] Ania Reed LPN Referring Provider: OMAR GROSS [[id number]] Allergies As of Date: 12/19/2017 Noted Allergy [...] * FLUTICASONE 50 MCG/ACTUATION * Use 1 [place] in each nostril o* ERGOCALCIFEROL (VITAMIN D2) [...] FOR* Visit Notes: >> Ania Reed LPN SunDec 19, 2017 11:56 AM Status: Signed Est pt. Discuss recent lab results Ania Reed LPN Encounter Status:Closed by OMAR GROSS DO on 12/19/17 PROGRESS Observed: 12/19/2017 Status: COMPLETED Source: [place] 11:44 AM [facility] REPOSITORY HNO ID: [id number] Author: Omar Gross Service: (none) Author Type: Physician Type: Progress Notes Filed: 12/19/2017 12:39 PM Note Text: Diagnosis: 1) Ovarian cancer. HPI: The patient is a 62 year old female who presented to her PCP prior to a trip to [facility] for vaccinations. She reported that she was [...] Taxol x 6 cycles, completed 05/27/13. 6) Beaumont/carbo/cassandra x cycles for biopsy proven metastatic disease [...] No jaundice or rash. No petechiae. NEUROLOGIC: resident caregiver II-XII are grossly intact. No focal motor weakness. ASSESSMENT/PLAN: 1) Ovarian cancer. KPS is 90%. Biopsy-proven recurrence. [place] refractory. -She is tolerating topotecan well thus [...] NRBC PANEL Collected: 12/19/2017 Status: F Source: [place] 10:55 AM [facility] REPOSITORY Order Comment: CRITICAL VALUE VERIFIED. CALLED TO M[facility]ORY AT 'S OFFICE 12/19/17 1117 Tiki Tran. RESULTS READ BACK BY SAME . TYPE CODE TESTS RESULT OUT OF RANGE REFERENCE UNITS LAB L100.4450 0-5 % Normal NRBC, FLAGGED 0.3 LAB L100.4455 0-5 10 3/uL Normal NRBC # 0.21 Performed By: #### L100.4425, L100.0100 #### [facility] [address] [place], [address] CBC W/DIFF, AUTOMATED Collected: 12/19/2017 Status: C Source: [place] 10:55 AM [facility] REPOSITORY Order Comment: CRITICAL VALUE VERIFIED. CALLED [...] 1244 PATH REV previously reported as: February foll Performed By: #### L100.4425, L100.0100 #### [facility] [address] [place], [place], [address] COMPREHENSIVE METABOLIC Collected: 12/19/2017 Status: F Source: [facility] 10:55 AM [facility] REPOSITORY TYPE CODE TESTS RESULT OUT OF [...] GAP 10 Performed By: #### L500.4050 #### [facility] [address] [place], [place], [address] CANCER ANTIGEN 125 Collected: 12/19/2017 Status: F Source: [place] 10:55 AM [facility] REPOSITORY TYPE CODE TESTS RESULT OUT OF RANGE REFERENCE UNITS LAB L3100.5000 0.0-38.1 U/mL Normal CA125 34.6 2303 Result Comment: Meghna ECLIA methodology Performed at: - [facility] [address], [place], [place] [id number] Ginner Helper: Carlo Bass PhD, Phone: [phone] Performed By: #### L3100.5000 #### [facility] (refer to report for specific site) refer to report for address and phone number CBC W/DIFF, AUTOMATED Collected: 12/13/2017 Status: F Source: [place] 11:36 AM [facility] REPOSITORY TYPE CODE TESTS RESULT OUT OF [...] HYPOCHROMASIA 1+ Performed By: #### L100.0100 #### [facility] [address] [place], [address] CTA CHEST W/WO Observed: 12/06/2017 Status: F Source: [place] CONTRAST 3:51 PM [facility] REPOSITORY [facility] Services [address] [address] CTA Chest W/WO Contrast MR#: [id number] Acct: [id number] Name: IVA CUEVA Rep #: [id number] : 1955 F 62 From: Maura Ordaz MD PCP: Peter Deras MD Status: REG CLI Study: CTA Chest W/WO Contrast Date of Exam: 12/06/17 Exam# [id number] Ordering Dr: Omar Gross DO STUDY: CTA [...] embolism or arterial dissection. Atherosclerosis. 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 [place], [place], [address] [facility] TEST Collected: 12/05/2017 Status: F Source: [place] 8:04 PM [facility] REPOS[facility] TYPE CODE TESTS RESULT OUT OF REFERENCE UNITS RANGE LAB NAME1 TUMOR Test BRACANALYSIS LAB RESU1 View results Test Results in Scanned Documents link when available. Performed By: #### [id number] #### [facility] [address] [place], [place] [address] CBC W/DIFF, AUTOMATED Collected: 12/03/2017 Status: C Source: [place] 12:15 PM [facility] REPOSITORY TYPE CODE TESTS RESULT OUT OF [...] Jc Snyder M.D. 12/04/17 AMENDED REPORT 12/04/17 8530 PATH REV previously reported as: May foll LAB L100.2620 2.0-7.7 X10 3/uL Normal Absolute Neut 3.5 LAB L100.2720 0.83-4.51 X10 3/ul Normal Absolute Lymph 2.30 Performed By: #### L100.0100 #### [facility] [address] [place], [address] PROGRESS Observed: 11/28/2017 Status: COMPLETED Source: [place] 5:41 PM [facility] REPOSITORY HNO ID: [id number] Author: Omar Gross Service: (none) Author Type: Physician Type: Progress Notes Filed: 11/28/2017 5:45 PM Note Text: Diagnosis: 1) Ovarian cancer. HPI: The patient is a 62 year old female who presented to her PCP prior to a trip to [facility] for vaccinations. She reported that she was [...] Taxol x 6 cycles, completed 05/27/13. 6) Beaumont/carbo/cassandra x cycles for biopsy proven metastatic disease [...] No jaundice or rash. No petechiae. NEUROLOGIC: resident caregiver II-XII are grossly intact. No focal motor weakness. ASSESSMENT/PLAN: 1) Ovarian cancer. KPS is 90%. Biopsy-proven recurrence. [place] refractory. -She is tolerating topotecan well thus far. -Previous discussed rationale for testing biopsy specimen from 2014 for somatic BRCA mutation. [facility] didn't have enough tissue. Plan: -Cycle #2 topotecan on Sunday 12/03 pending CBC results that day. -Neupogen x10 days post cycle. -CT C/A/P prior to cycle #4 or sooner pending CA125 trend. -Continue olanzapine. -Somatic mutation of BRCA requested from past specimen in 2012 for [facility]. Omar Gross DO CNOVSP Observed: 11/28/2017 Status: COMPLETED Source: [place] 4:00 PM [facility] REPOSITORY Visit (SP) Office (PRISCILLA) IVA CUEVA ([id number]) 1955 F Date Time Provider Department 11/28/17 4:00 PM OMAR GROSS During your visit today, we recorded the following information about you: Temperature Pulse Blood pressure Weight 98 degrees 99/minute 122/66 87.3 kg Jane James LPN 11/28/2017 4:37 PM Signed Est patient. Labs today at [facility]. Jane Gross DO 11/28/2017 5:45 PM Signed Diagnosis: 1) Ovarian cancer. HPI: The patient is a 62 year old female who presented to her PCP prior to a trip to [facility] for vaccinations. She reported that she was [...] Taxol x 6 cycles, completed 05/27/13. 6) [place]/carbo/cassandra x cycles for biopsy proven metastatic disease [...] No jaundice or rash. No petechiae. NEUROLOGIC: resident caregiver II-XII are grossly intact. No focal motor weakness. ASSESSMENT/PLAN: 1) Ovarian cancer. KPS is 90%. Biopsy-proven recurrence. [place] refractory. -She is tolerating topotecan well thus far. -Previous discussed rationale for testing biopsy specimen from 2014 for somatic BRCA mutation. [facility] didn't have enough tissue. Plan: -Cycle #2 topotecan on Sunday 12/03 pending CBC results that day. -Neupogen x10 days post cycle. -CT C/A/P prior to cycle #4 or sooner pending CA125 trend. -Continue olanzapine. -Somatic mutation of BRCA requested from past specimen in 2012 for [facility]. Omar Gross DO Referring Provider: OMAR GROSS [[id number]] Allergies As of Date: 11/28/2017 Noted Allergy [...] * FLUTICASONE 50 MCG/ACTUATION * Use 1 [place] in each nostril o* ERGOCALCIFEROL (VITAMIN D2) 5* Take 2 capsules a week for 8 * MULTIVITAMIN TABLET Take 1 tablet by mouth once d* Medication notes this encounter AMOXICILLIN 500 MG TABLET >> Jane James LPN 11/28/2017 4:05 PM >> JAMES INVESTIGATION SPECIALISTJANE Ireland SunNov 28, 2017 4:05 PM completed MAGNESIUM OXIDE 400 MG TABLET >> Jane Elaine MOURA 11/28/2017 4:06 PM >> JAMES INVESTIGATION SPECIALISTJANE Ireland SunNov 28, 2017 4:06 PM Not taking [...] FOR* Visit Notes: >> Jane James MARTELL SunNov 28, 2017 4:07 PM Status: Signed Est patient. Labs today at [facility]. Jane James LPN Encounter Status:Closed by OMAR GROSS DO on 11/28/17 CBC W/DIFF, AUTOMATED Collected: 11/28/2017 Status: C Source: [place] 10:31 AM [facility] REPOSITORY TYPE CODE TESTS RESULT OUT OF [...] February jalyn Performed By: #### L100.0100 #### [facility] [place], [address] COMPREHENSIVE METABOLIC Collected: 11/28/2017 Status: F Source: [facility] 10:31 AM [facility] REPOSITORY TYPE CODE TESTS RESULT OUT OF [...] GAP 7 Performed By: #### L500.4050 #### [facility] [address] [facility] [place], [address] CANCER ANTIGEN 125 Collected: 11/28/2017 Status: F Source: [place] 10:31 AM [facility] REPOSITORY TYPE CODE TESTS RESULT OUT OF RANGE REFERENCE UNITS LAB L3100.5000 0.0-38.1 U/mL High CA125 92.1 2303 Result Comment: Meghna ECLIA methodology Performed at: - [facility] [address] [id number] [place] Helper: Carlo Bass PhD, Phone: [phone] Performed By: #### L3100.5000 #### [facility] (refer to report for specific site) refer to report for address and phone number OBSOLETE Observed: 11/26/2017 Status: COMPLETED Source: [place] 12:00 AM [facility] REPOSITORY Refill (PRISCILLA) IVA CUEVA ([id number]) 1955 F Date Time Provider Department 11/26/17 [...] * FLUTICASONE 50 MCG/ACTUATION * Use 1 [place] in each nostril o* ERGOCALCIFEROL (VITAMIN D2) [...] REACTION SEVERITY SOURCE Drug hydrocodone Itching Unknown [place] 8 Allergy/663287286( bitartrate/F0000 Community SNOM[facility]) [address]755(RXNORM) Hospital Repository Drug tramadol Itching Unknown [place] 8 Allergy/236767159( HCl/D027959594(R Community SNOM[facility]) XNORM) Hospital Repository Drug codeine/G0546893 Itching Unknown [place] 8 Allergy/622762143( 50(RXNORM) Community SNOM[facility]) Hospital Repository Drug oxycodone/M36307 Itching Unknown [place] 8 Allergy/194997735( 1558(RXNORM) Community SNOMED CT) Hospital Repository Drug acetaminophen/F0 Itching Unknown [place] 8 Allergy/411370721( 92726524(RXNORM) Community SNOM[facility]) Hospital Repository DRUG/994062994(SNO OXYCODONE-ACETAM ITCHING [place] [address]) INOPHEN Clinic Main [place] Repository DRUG TRAMADOL HCL ITCHING [place] 3 INGREDI/382463185( Clinic Main SNOMED CT) [place] Repository DRUG/879030711(SNO HYDROCODONE-ACET ITCHING [place] [address]) AMINOPHEN Clinic Main [place] Repository Miscellaneous OTHER [place] 7 Allergy/749018698( Clinic Main SNOMED CT) [place] Repository DRUG CODEINE INTOLERANCE [place] 7 INGREDI/961772293( Clinic Main SNOMED CT) [place] Repository ENCOUNTERS ENCOUNTERS ADMIT/DISCHARGE ACCOUNT ADMITTING ENCOUNTER LOCATION SOURCE NUMBER CLASS 11/20/2018 [id number] [facility] ing:MEDOUT Repository 11/19/2018 [id number] [facility] ing:MEDOUTP Repository 11/04/2018 [id number] [place] [facility] Repository 11/01/2018/11/01/[id number] Repository 10/29/2018 [id number] Ambulatory [facility] HospitalBuild Hospital ing:LAB Repository 10/28/2018/10/28/20 [id number] Ambulatory [address] Repository 10/28/2018/10/28/20 [id number] Ambulatory [address] Repository 10/28/2018 [id number] [facility] Repository 10/25/2018/10/25/20 [id number] Ambulatory [facility] [facility] Hospital ing:LAB Repository 10/24/2018/10/25/20 [id number] Ambulatory [address] Repository 10/11/2018 [id number] [facility] Repository 10/10/2018 [id number] Ambulatory [facility] HospitalBuild Hospital ing:MEDOUTP Repository 10/09/2018 [id number] [facility] Repository 10/08/2018 [id number] [facility] ing:MED[facility]P Repository 10/07/2018 [id number] Ambulatory [facility] HospitalBuild Hospital ing:MEDOUTP Repository 09/26/2018 [id number] Ambulatory [facility] HospitalBuild Hospital ing:OPUS Repository 09/17/2018/09/17/20 [id number] Ambulatory BMSBuilding:B [place] 18 [facility] Repository 09/13/2018 [id number] [facility] ing:MED[facility]P Repository 09/12/2018 [id number] [facility] ing:MED[facility]P Repository 09/11/2018 [id number] [facility] ing:[facility]P Repository 09/10/2018 [id number] Ambulatory [facility] HospitalBuild Hospital ing:MEDOUTP Repository 09/09/2018 [id number] [facility] ing:MEDOUTP Repository 08/30/2018/09/02/20 [id number] Ambulatory [place] 18 [facility] Main [place] Repository 08/26/2018/08/26/20 [id number] Ambulatory [place] [facility] [address] [place] [address] HospitalBuild Hospital ing:LAB Repository 08/06/2018 [id number] [facility] [place] [facility] Repository 08/02/2018 [id number] [facility] ing:[facility]P Repository 08/01/2018 [id number] [facility]ulatory [facility] ing:MEDOUTP Repository 07/31/2018 [id number] [facility] Repository 07/30/2018 [id number] [facility]ulatory [place] [facility] Hospital ing:MEDOUTP Repository 07/29/2018 [id number] [facility] [place] [facility] ing:[facility]P Repository 07/23/2018/07/23/20 [id number] Ambulatory [place] [address] [place] [address] HospitalBuild Hospital ing:LAB Repository 07/12/2018 [id number] [facility] [place] [facility] ing:MED[facility]P Repository 07/11/2018 [id number] [facility] [place] [facility] ing:MEDOUTP Repository 07/10/2018 [id number] [facility] ing:MED[facility]P Repository 07/09/2018 [id number] [place]ulatory [place] [facility] Hospital ing:MEDOUTP Repository 07/08/2018 [id number] Amb[place] [facility] Hospital ing:MEDOUTP Repository 07/04/2018/07/05/20 [id number] Ambulatory [place] 18 [facility] [place] Repository 06/26/2018/06/26/20 [id number] Ambulatory [place] [address] [place] [address] HospitalBuild Hospital ing:LAB Repository 06/21/2018 [id number] [facility] [place] [facility] Repository 06/20/2018 [id number] [facility] ing:[facility]P Repository 06/19/2018 [id number] [facility] [place] [facility] ing:[facility]P Repository 06/18/2018 [id number] [facility] [place] [facility] ing:MED[facility]P Repository 06/17/2018 [id number] [facility] ing:[facility]P Repository 06/13/2018/06/14/20 [id number] Ambulatory [address] [place] Repository 05/24/2018 [id number] [facility] [place] [facility]P Repository 05/23/2018 [id number] [facility] [place] [facility] ing:MEDOUTP Repository 05/22/2018 [id number] [facility] [place] [facility] ing[facility]P Repository 05/21/2018 [id number] [facility] [place] [facility] ing:[facility]P Repository 05/20/2018 [id number] [facility] [place] [facility]P Repository 05/18/2018/05/18/20 [id number] [place] [facility] Hospital ing:LAB Repository 04/29/2018/04/29/20 [id number] Ambulatory [address] Main [place] Repository 04/29/2018/04/29/20 [id number] Ambulatory [address] Main [place] Repository 04/29/2018/05/03/20 [id number] Ambulatory [address] Main [place] Repository 04/29/2018/04/29/20 [id number] Ambulatory [address] Main [place] Repository 04/18/2018/04/22/20 [id number] Ambulatory [address] Main [place] Repository 04/16/2018/04/16/20 [id number] Ambulatory [place] [address] [place] [address] HospitalBuild Hospital ing:LAB Repository 04/12/2018/04/13/20 [id number] Ambulatory [address] [place] Repository 04/06/2018/04/06/20 [id number] [place] [facility] Hospital ing:MEDOUTP Repository 04/05/2018 [id number] [facility] Repository 04/04/2018 [id number] Ambulatory [place] [facility] Hospital ing:MEDOUTP Repository 04/03/2018 [id number] [facility]ulatory [place] [facility] Hospital ing:MEDOUTP Repository 04/02/2018 [id number] Ambulatory [place] [facility] Hospital ing:MEDOUTP Repository 03/29/2018/04/01/20 [id number] Ambulatory [address] Repository 03/27/2018/03/27/20 [id number] Ambulatory [place] [address] [place] [address] HospitalBuild Hospital ing:LAB Repository 03/08/2018 [id number] Ambulatory [place] [facility] Hospital ing:MEDOUTP Repository 03/07/2018 [id number] Amb[place] [facility] Hospital ing:MEDOUTP Repository 03/06/2018 [id number] Ambulatory [place] [facility] Hospital ing:MEDOUTP Repository 03/05/2018 [id number] Ambulatory [place] [facility] Hospital ing:MEDOUTP Repository 03/04/2018 [id number] Ambulatory [place] [facility] Hospital ing:MEDOUTP Repository 02/27/2018/02/29/20 [id number] Ambulatory [address] Repository 02/13/2018 [id number] [facility] [place] [facility] Repository 02/11/2018/02/12/20 [id number] Ambulatory [place] [address] [place] [address] HospitalBuild Hospital ing:LAB Repository 02/08/2018 [id number] Ambulatory [place] [facility] Hospital ing:MEDOUTP Repository 02/07/2018 [id number] Ambulatory [place] [facility] Hospital ing:MEDOUTP Repository 02/06/2018 [id number] [facility]ulatory [place] [facility] [facility] Hospital ing:MEDOUTP Repository 02/05/2018 [id number] Ambulatory [place] [facility] Hospital ing:MEDOUTP Repository 02/04/2018 [id number] Ambulatory [place] [facility] Hospital ing:MEDOUTP Repository 01/18/2018 [id number] Ambulatory [place] [facility] Hospital ing:MEDOUTP Repository 01/17/2018 [id number] [facility] ing:MEDOUTP Repository 01/16/2018 [id number] [facility]ulatory [place] [facility] Hospital ing:MEDOUTP Repository 01/15/2018 [id number] [facility] [place] [facility] ing:[facility]P Repository 01/14/2018 [id number] Amb[place] [facility] Hospital ing:MEDOUTP Repository 01/09/2018/01/12/20 [id number] Ambulatory [address] [place] Repository 01/09/2018/01/10/20 [id number] [place] [address] [place] [address] HospitalBuild Hospital ing:LAB Repository 01/03/2018 [id number] [facility] [place] [facility] ing:MEDOUTP Repository 12/28/2017 [id number] [facility] [place] [facility] ing:MEDOUTP Repository 12/27/2017 [id number] [facility] ing:MED[facility]P Repository 12/26/2017 [id number] [facility] [place] [facility] ing:MEDOUTP Repository 12/25/2017 [id number] [facility] ing:MED[facility]P Repository 12/24/2017 [id number] [facility] [place] [facility] ing:MEDOUTP Repository 12/19/2017/12/19/19 [id number] Ambulatory [address] [place] Repository 12/19/2017/12/19/19 [id number] Ambulatory [place] [facility] [address] [place] [address] HospitalBuild Hospital ing:LAB Repository 12/07/2017 [id number] [facility] [place] [facility] ing:MED[facility]P Repository 12/06/2017 [id number] [facility] ing:[facility]P Repository 12/05/2017 [id number] [facility] [place] [facility] ing:MEDOUTP Repository 12/04/2017 [id number] [facility] [place] [facility] ing:MEDOUTP Repository 12/03/2017 [id number] Ambulatory [facility] ing:MEDOUTP Repository 11/28/2017/11/29/19 [id number] Ambulatory [address] Repository 11/28/2017/11/28/19 [id number] Ambulatory [facility] ing:LAB Repository PAYERS PAYERS ENCOUNTER GUARANTOR PAYER SUBSCRIBER SOURCE 11/20/2018 IVA L Primary IVA L [place] [id number] [place] Insurance:MEDICAL MAIBACHDOB: [id number] [address]Esx: Number: Repository [id number] (HP) Date:5265-09-49VZ [address] [address]TH: 11/20/2018 Secondary NOT GIVENUNK [place] Insurance:SELF PAY [facility] Number: Effective Repository Date:2018-11-13 11/19/2018 IVA L Primary IVA L [place] [id number] [place] Insurance:MEDICAL MAIBACHDOB: [facility] [id number] Regional Medical Center [address]Wxm: Number: Repository [id number] (HP) Date:6006-09-72P[address] [address]BU: 11/19/2018 Secondary NOT GIVENUNK [place] Insurance:SELF PAY [facility] Number: Effective Repository Date:2018-11-13 10/29/2018 IVA L Primary IVA L [place] [id number] [place] Insurance:MEDICAL MAIBACHDOB: [facility] [id number] Regional Medical Center [address]Uoe: Number: Repository [id number] (HP) Date:2394-58-57NM[address] [address]NS: 10/29/2018 Secondary NOT GIVENUNK [place] Insurance:SELF PAY [facility] Number: Effective Repository Date:2018-10-28 10/28/2018 JOSÉ MIGUEL [place] Primary IVA [place] [id number] [place] Insurance:MEDICAL MAIBACHDOB: [facility] [id number] Hospital [place] [address]Hpx: Number: Repository [id number] (HP) Date:4354-32-92SP [facility] [address] [place], [place] [address]WP: 10/28/2018 Secondary NOT GIVENUNK [place] Insurance:SELF PAY [facility] Number: Effective Repository Date:2018-09-17 10/25/2018 JOSÉ MIGUEL [place] Primary IVA [place] [id number] [place] Insurance:MEDICAL MAIBADOB: [facility] [id number] Hospital [place] [address]Gen: Number: Repository [id number] (HP) Date:5006-90-52LG [address] [place], [place] [address]WP: 10/25/2018 Secondary NOT GIVENUNK [place] Insurance:SELF PAY [facility] Number: Effective Repository Date:2018-08-29 10/11/2018 IVA [place] Primary IVA [place] [id number] [place] Insurance:MEDICAL MAIBACHDOB: [facility] [id number] [place] [address]Cpe: Number: Repository [id number] (HP) Date:8635-15-10HH [address] [place] [address]JS: 10/11/2018 Secondary NOT GIVENUNK [place] Insurance:SELF PAY [facility] Number: Effective Repository Date:2018-09-17 10/10/2018 IVA Cottrell Primary IVA [place] [id number] [place] Insurance:MEDICAL MAIBACHDOB: [facility] [id number] Regional Medical Center [address]Zwx: Number: Repository [id number] (HP) Date:4821-57-90OU [address] [address]HI: 10/10/2018 Secondary NOT GIVENUNK [place] Insurance:SELF PAY [facility] Number: Effective Repository Date:2018-09-17 10/09/2018 IVA L Primary IVA L [place] [id number] [place] Insurance:MEDICAL MAIBACHDOB: [facility] [id number] Regional Medical Center [address]Zpb: Number: Repository [id number] (HP) Date:5082-57-32LS [address] [address]OB: 10/09/2018 Secondary NOT GIVENUNK [place] Insurance:SELF PAY [facility] Number: Effective Repository Date:2018-09-17 10/08/2018 IVA L Primary IVA L [place] [id number] [place] Insurance:MEDICAL MAIBACHDOB: [facility] [id number] Regional Medical Center [address]Hzu: Number: Repository [id number] (HP) Date:5760-52-00MA [address] [address]ZG: 10/08/2018 Secondary NOT GIVENUNK [place] Insurance:SELF PAY [facility] Number: Effective Repository Date:2018-09-17 10/07/2018 JOSÉ MIGUEL [place] Primary IVA L [place] [id number] [place] Insurance:MEDICAL MAIBADOB: [facility] [id number] Regional Medical Center [address]Ucl: Number: Repository [id number] (HP) Date:8013-97-92FS [address] [address]OB: 10/07/2018 Secondary NOT GIVENUNK [place] Insurance:SELF PAY [facility] Number: Effective Repository Date:2018-09-17 09/26/2018 IVA Cottrell Primary IVA Larry [id number] [place] Insurance:MEDICAL MAIBACHDOB: [facility] [id number] Regional Medical Center [address]Bvw: Number: Repository [id number] (HP) Date:6568-27-30QX [place] [id number]: 09/26/2018 Secondary NOT GIVENUNK [place] Insurance:SELF PAY [facility] Number: Effective Repository Date:2018-09-18 09/17/2018 IVA Cottrell Primary IVA [place] [id number] [place] Insurance:MEDICAL MAIBACHDOB: [facility] [id number] Regional Medical Center [address]Ewm: Number: Repository [id number] (HP) Date:0048-34-98ZQ [place] [address]: 09/17/2018 Secondary NOT GIVENUNK [place] Insurance:SELF PAY [facility] Number: Effective Repository Date:2018-09-17 09/13/2018 JOSÉ MIGUEL [place] Primary IVA [place] [id number] [place] Insurance:MEDICAL MAIBACHDOB: [facility] [id number] Hospital [place] [address]Mpr: Number: Repository [id number] (HP) Date:9971-97-02AL [place] [address]: 09/13/2018 Secondary NOT GIVENUNK [place] Insurance:SELF PAY [facility] Number: Effective Repository Date:2018-09-05 09/12/2018 JOSÉ MIGUEL [place] Primary IVA [place] [id number] [place] Insurance:MEDICAL MAIBACHDOB: [facility] [id number] Regional Medical Center [address]Cae: Number: Repository [id number] (HP) Date:2839-94-66RG [address] [address]FM: 09/12/2018 Secondary NOT GIVENUNK [place] Insurance:SELF PAY [facility] Number: Effective Repository Date:2018-09-05 09/11/2018 JOSÉ MIGUEL Rashi Primary IVA Ronit [place] [id number] [place] Insurance:MEDICAL MAIBACHDOB: [facility] [id number] Regional Medical Center [address]Aya: Number: Repository [id number] (HP) Date:1245-71-05RH [address] [address]FI: 09/11/2018 Secondary NOT GIVENUNK [place] Insurance:SELF PAY [facility] Number: Effective Repository Date:2018-09-05 09/10/2018 JOSÉ MIGUEL J Primary IVA Ronit [place] [id number] [place] Insurance:MEDICAL MAIBACHDOB: [facility] [id number] Regional Medical Center [address]Qbl: Number: Repository [id number] (HP) Date:8153-13-66MZ [address] [address]KO: 09/10/2018 Secondary NOT GIVENUNK [place] Insurance:SELF PAY [facility] Number: Effective Repository Date:2018-09-05 09/09/2018 JOSÉ MIGUEL [place] Primary IVA Ronit [place] [id number] [place] Insurance:MEDICAL MAIBADOB: [facility] [id number] Regional Medical Center [address]Lfh: Number: Repository [id number] (HP) Date:0682-93-88EJ [address] [address]RN: 09/09/2018 Secondary NOT GIVENUNK [place] Insurance:SELF PAY [facility] Number: Effective Repository Date:2018-09-05 08/26/2018 JOSÉ MIGUEL Markham Primary IVA Larry [id number] [place] Insurance:MEDICAL MAIBACHDOB: [facility] 7501-29-47YEJPl[facility] [address]Ziz: Number: Repository [id number] (HP) Date:8277-58-86FI [place] [address]WP: 08/26/2018 Secondary NOT GIVENUNK [place] Insurance:SELF PAY [facility] Number: Effective Repository Date:2018-07-31 08/06/2018 JOSÉ MIGUEL Markham Primary IVA Larry [id number] [place] Insurance:MEDICAL MAIBACHDOB: [facility] 8896-64-99OEUPlains Regional Medical Center [address]Ibc: Number: Repository [id number] (HP) Date:2070-53-63LK [place] [address]WP: 08/06/2018 Secondary NOT GIVENUNK [place] Insurance:SELF PAY [facility] Number: Effective Repository Date:2018-08-05 08/02/2018 JOSÉ MIGUEL Markham Primary IVA Larry [id number] [place] Insurance:MEDICAL MAIBACHDOB: [facility] 6986-31-20TZS [place] [address]Cdv: Number: Repository [id number] (HP) Date:9097-49-13RU [place] [address]WP: 08/02/2018 Secondary NOT GIVENUNK [place] Insurance:SELF PAY [facility] Number: Effective Repository Date:2018-07-26 08/01/2018 JOSÉ MIGUEL Markham Primary IVA Larry [id number] [place] Insurance:MEDICAL MAIBACHDOB: [facility] [id number] [place] [address]Gvh: Number: Repository [id number] (HP) Date:1047-31-40QL [address] [place] [address]ZJ: 08/01/2018 Secondary NOT GIVENUNK [place] Insurance:SELF PAY [facility] Number: Effective Repository Date:2018-07-26 07/31/2018 JOSÉ MIGUEL Markham Primary IVA Larry [id number] [place] Insurance:MEDICAL MAIBACHDOB: [facility] 6297-65-53EWBPlains Regional Medical Center [address]Rhi: Number: Repository [id number] (HP) Date:9965-61-94BY [address] [place], [place] [address]WP: 07/31/2018 Secondary NOT GIVENUNK [place] Insurance:SELF PAY [facility] Number: Effective Repository Date:2018-07-26 07/30/2018 JOSÉ MIGUEL Markham Primary IVA Ronit Larry [id number] [place] Insurance:MEDICAL MAIBACHDOB: [facility] 6972-28-80PFXPlains Regional Medical Center [address]Wbu: Number: Repository [id number] (HP) Date:7156-21-03RC [address] [address]ME: 07/30/2018 Secondary NOT GIVENUNK [place] Insurance:SELF PAY [facility] Number: Effective Repository Date:2018-07-26 07/29/2018 JOSÉ MIGUEL Markham Primary IVA Larry [id number] [place] Insurance:MEDICAL MAIBACHDOB: [facility] 6584-67-95JLGPlains Regional Medical Center [address]Uit: Number: Repository [id number] (HP) Date:6716-58-48NA [address] [place] [address]BP: 07/29/2018 Secondary NOT GIVENUNK [place] Insurance:SELF PAY [facility] Number: Effective Repository Date:2018-07-26 07/23/2018 JOSÉ MIGUEL Markham Primary IVA Larry [id number] [place] Insurance:MEDICAL MAIBACHDOB: [facility] 4993-06-56LVDPlains Regional Medical Center [address]Wkl: Number: Repository [id number] (HP) Date:8397-16-19DT [address] [place], [place] [address]WP: 07/23/2018 Secondary [place]IV[place]K [place] Insurance:SELF PAY [facility] Number: Effective Repository Date:2018-07-02 07/12/2018 JOSÉ MIGUEL Markham Primary IVA Larry [id number] [place] Insurance:MEDICAL MAIBACHDOB: [facility] [id number] [place] [address]Czz: Number: Repository [id number] (HP) Date:0675-90-99KZ [address] [place], [place] [address]WP: 07/12/2018 Secondary NOT GIVENUNK [place] Insurance:SELF PAY [facility] Number: Effective Repository Date:2018-06-21 07/11/2018 JOSÉ MIGUEL Markham Primary IVA Larry [id number] [place] Insurance:MEDICAL MAIBADOB: [facility] [id number] [place] [address]Ykh: Number: Repository [id number] (HP) Date:7797-28-35AZ [address] [place], [place] [address]WP: 07/11/2018 Secondary NOT GIVENUNK [place] Insurance:SELF PAY [facility] Number: Effective Repository Date:2018-06-21 07/10/2018 JOSÉ MIGUEL Markham Primary IVA Larry [id number] [place] Insurance:MEDICAL MAIBACHDOB: [facility] [id number] [place] [address]Rrw: Number: Repository [id number] (HP) Date:4968-70-75QL [address] [address]NS: 07/10/2018 Secondary NOT GIVENUNK [place] Insurance:SELF PAY [facility] Number: Effective Repository Date:2018-06-21 07/09/2018 JOSÉ MIGUEL Markham Primary IVA Larry [id number] [place] Insurance:MEDICAL MAIBACHDOB: [facility] 3096-85-76CDAPlains Regional Medical Center [address]Mad: Number: Repository [id number] (HP) Date:0273-24-92GM [place] [address]WP: 07/09/2018 Secondary [place] GIV[place]K [place] Insurance:SELF PAY [facility] Number: Effective Repository Date:2018-06-21 07/08/2018 JOSÉ MIGUEL Markham Primary IVA Larry [id number] [place] Insurance:MEDICAL MAIBACHDOB: [facility] 7355-65-75MOHPlains Regional Medical Center [address]Dfg: Number: Repository [id number] (HP) Date:9026-10-58SJ [address] [address]CK: 07/08/2018 Secondary NOT [place]IV[place]K [place] Insurance:SELF PAY [facility] Number: Effective Repository Date:2018-06-21 06/26/2018 JOSÉ MIGUEL Markham Primary IVA Larry [id number] [place] Insurance:MEDICAL MAIBACHDOB: [facility] 1731-72-47DIQPlains Regional Medical Center [address]Fro: Number: Repository [id number] (HP) Date:1652-22-01JE [address] [address]JI: 06/26/2018 Secondary NOT GIVENUNK [place] Insurance:SELF PAY [facility] Number: Effective Repository Date:2018-05-30 06/21/2018 JOSÉ MIGUEL Markham Primary IVA Larry [id number] [place] Insurance:MEDICAL MAIBACHDOB: [facility] [id number] Regional Medical Center [address]Mwl: Number: Repository [id number] (HP) Date:8045-68-52BD [place] [address]WP: 06/21/2018 Secondary NOT GIVENUNK [place] Insurance:SELF PAY [facility] Number: Effective Repository Date:2018-05-27 06/20/2018 JOSÉ MIGUEL Markham Primary IVA Larry [id number] [place] Insurance:MEDICAL MAIBACHDOB: [facility] [id number] [place] [address]Xig: Number: Repository [id number] (HP) Date:8606-23-85TT [place] [address]WP: 06/20/2018 Secondary NOT GIVENUNK [place] Insurance:SELF PAY [facility] Number: Effective Repository Date:2018-05-27 06/19/2018 JOSÉ MIGUEL Markham Primary IVA Larry [id number] [place] Insurance:MEDICAL MAIBACHDOB: [facility] 0401-39-85IFT [place] [address]Wfh: Number: Repository [id number] (HP) Date:6803-63-65UA [place] [address]WP: 06/19/2018 Secondary NOT GIVENUNK [place] Insurance:SELF PAY [facility] Number: Effective Repository Date:2018-05-27 06/18/2018 JOSÉ MIGUEL Markham Primary IVA Larry [id number] [place] Insurance:MEDICAL MAIBACHDOB: [facility] 0613-29-51XHJ [place] [address]Wqq: Number: Repository [id number] (HP) Date:6252-09-23FD [address] [address]IX: 06/18/2018 Secondary NOT GIVENUNK [place] Insurance:SELF PAY [facility] Number: Effective Repository Date:2018-05-27 06/17/2018 JOSÉ MIGUEL Markham Primary IVA Larry [id number] [place] Insurance:MEDICAL MAIBACHDOB: [facility] [id number] [place] [address]Ekk: Number: Repository [id number] (HP) Date:3259-66-36OQ [place] [address]WP: 06/17/2018 Secondary NOT GIVENUNK [place] Insurance:SELF PAY [facility] Number: Effective Repository Date:2018-05-24 05/24/2018 José Miguel Markham Primary IVA Larry [id number] [place] Insurance:MEDICAL MAIBACHDOB: [facility] [id number] [place] [address]Wly: Number: Repository [id number] (HP) Date:0183-91-84NP [place] [address]WP: 05/24/2018 Secondary [place] Insurance:SELF PAY [facility] Number: Effective Repository Date:2018-04-18 05/23/2018 José Miguel Markham Primary IVA Larry [id number] [place] Insurance:MEDICAL MAIBADOB: [facility] [id number] [place] [address]Ibk: Number: Repository [id number] (HP) Date:6528-27-68TT [address] [address]MU: 05/23/2018 Secondary NOT GIVENUNK [place] Insurance:SELF PAY [facility] Number: Effective Repository Date:2018-04-18 05/22/2018 José Miguel Markham Primary IVA Larry [id number] [place] Insurance:MEDICAL MAIBACHDOB: [facility] 7274-50-20ARCPlains Regional Medical Center [address]Vdt: Number: Repository [id number] (HP) Date:7899-43-57HF [place] [address]WP: 05/22/2018 Secondary [place] Insurance:SELF PAY [facility] Number: Effective Repository Date:2018-04-18 05/21/2018 José Miguel Markham Primary IVA Larry [id number] [place] Insurance:MEDICAL MAIBACHDOB: [facility] 5834-79-03TGUPlains Regional Medical Center [address]Tfx: Number: Repository [id number] (HP) Date:8462-29-34KOBr[place] [address]39601[address]WP: 05/21/2018 Secondary [place] Insurance:SELF PAY [facility] Number: Effective Repository Date:2018-04-18 05/20/2018 José Miguel Markhma Primary IVA Larry [id number] [place] Insurance:MEDICAL MAIBACHDOB: [facility] 0655-70-85KQCPlains Regional Medical Center [address]Ceo: Number: Repository [id number] (HP) Date:8558-03-92AJ [place] [address]WP: 05/20/2018 Secondary NOT GIVENUNK [place] Insurance:SELF PAY [facility] Number: Effective Repository Date:2018-04-18 05/18/2018 José Miguel Markham Primary IVA Larry [id number] [place] Insurance:MEDICAL MAIBACHDOB: [facility] 2815-70-34MIA [place] [address]Nbx: Number: Repository [id number] (HP) Date:5592-76-84SN [address] [place] [address]GC: 05/18/2018 Secondary [place] Insurance:SELF PAY [facility] Number: Effective Repository Date:2018-04-26 04/16/2018 José Miguel Rashi Primary IVA Ronit [place] [id number] [place] Insurance:MEDICAL MAIBACHDOB: [facility] 6960-47-34QIXPlains Regional Medical Center [address]Qyx: Number: Repository [id number] (HP) Date:6343-51-17WP [address] [place] [address]JP: 04/16/2018 Secondary [place] GIV[place]K [place] Insurance:SELF PAY [facility] Number: Effective Repository Date:2018-03-28 04/06/2018 José Miguel Markham Primary IVA Ronit [place] [id number] [place] Insurance:MEDICAL MAIBACHDOB: [facility] [id number] [place] [address]Dxk: Number: Repository [id number] (HP) Date:3980-31-85WG [address] [address]DS: 04/06/2018 Secondary NOT GIVENUNK [place] Insurance:SELF PAY [facility] Number: Effective Repository Date:2018-03-07 04/05/2018 José Miguel Markham Primary IVA Larry [id number] [place] Insurance:MEDICAL MAIBADOB: [facility] 8705-18-68TCKPlains Regional Medical Center [address]Puv: Number: Repository [id number] (HP) Date:5944-16-99LF [address] [address]SN: 04/05/2018 Secondary NOT GIVENUNK [place] Insurance:SELF PAY [facility] Number: Effective Repository Date:2018-03-07 04/04/2018 José Miguel Markham Primary IVA Larry [id number] [place] Insurance:MEDICAL MAIBACHDOB: [facility] 3970-86-96YGM [place] [address]Drs: Number: Repository [id number] (HP) Date:0774-75-58LA [place] [address]WP: 04/04/2018 Secondary NOT GIVENUNK [place] Insurance:SELF PAY [facility] Number: Effective Repository Date:2018-03-07 04/03/2018 José Miguel Markham Primary VIA [place] [id number] [place] Insurance:MEDICAL MAIBACHDOB: [facility] 0319-86-10DVEPlains Regional Medical Center [address]Tnr: Number: Repository [id number] (HP) Date:3633-96-28CZ [place] [address]WP: 04/03/2018 Secondary NOT GIVENUNK [place] Insurance:SELF PAY [facility] Number: Effective Repository Date:2018-03-07 04/02/2018 José Miguel Markham Primary IVA [place] [id number] [place] Insurance:MEDICAL MAIBACHDOB: [facility] 7442-57-75EFGPlains Regional Medical Center [address]Gqc: Number: Repository [id number] (HP) Date:0746-01-23MH [place] [address]WP: 04/02/2018 Secondary [place]K [place] Insurance:SELF PAY [facility] Number: Effective Repository Date:2018-03-07 03/27/2018 José Miguel Markham Primary IVA Larry [id number] [place] Insurance:MEDICAL MAIBACHDOB: [facility] [id number] [place] [address]Ukt: Number: Repository [id number] (HP) Date:9280-12-21LQ [address] [place] [address]ED: 03/27/2018 Secondary [place]IV[place]K [place] Insurance:SELF PAY [facility] Number: Effective Repository Date:2018-02-26 03/08/2018 José Miguel Markham Primary IVA Ronit [place] [id number] [place] Insurance:MEDICAL AZIBADOB: [facility] 3208-99-99KFWPlains Regional Medical Center [address]Sar: Number: Repository [id number] (HP) Date:4563-89-49DO [address] [address]PK: 03/08/2018 Secondary [place] Insurance:SELF PAY [facility] Number: Effective Repository Date:2018-02-18 03/07/2018 José Miguel Markham Primary IVA Ronit [place] [id number] [place] Insurance:MEDICAL MAIBACHDOB: [facility] 7213-20-59SDUPlains Regional Medical Center [address]Dlg: Number: Repository [id number] (HP) Date:8473-42-90PN [place] [address]WP: 03/07/2018 Secondary [place] Insurance:SELF PAY [facility] Number: Effective Repository Date:2018-02-18 03/06/2018 José Miguel Markham Primary IVA Ronit [place] [id number] [place] Insurance:MEDICAL MAIBADOB: [facility] 6490-37-75YHSPlains Regional Medical Center [address]Cyq: Number: Repository [id number] (HP) Date:8207-07-46MX [address] [address]KA: 03/06/2018 Secondary NOT GIVENUNK [place] Insurance:SELF PAY [facility] Number: Effective Repository Date:2018-02-18 03/05/2018 José Miguel Markham Primary IVA Ronit GoldbergG[place] [id number] [place] Insurance:MEDICAL MAIBACHDOB: [facility] 7645-44-93HJGPlains Regional Medical Center [address]Wge: Number: Repository [id number] (HP) Date:6191-07-84DS [address] [address]ZG: 03/05/2018 Secondary [place]K [place] Insurance:SELF PAY [facility] Number: Effective Repository Date:2018-02-18 03/04/2018 José Miguel Rashi Primary IVA Ronit Larry [id number] [place] Insurance:MEDICAL MAIBACHDOB: [facility] 7250-36-01KRBPlains Regional Medical Center [address]Bfg: Number: Repository [id number] (HP) Date:5267-27-22ZL [place] [address]WP: 03/04/2018 Secondary [place] Insurance:SELF PAY [facility] Number: Effective Repository Date:2018-02-18 02/13/2018 José Miguel Markham Primary IVA Ronit Larry [id number] [place] Insurance:MEDICAL MAIBACHDOB: [facility] 7535-97-71BAGPlains Regional Medical Center [address]Nyc: Number: Repository [id number] (HP) Date:1124-72-35BJ [place] [address]WP: 02/13/2018 Secondary [place] GIV[place]K [place] Insurance:SELF PAY [facility] Number: Effective Repository Date:2018-02-12 02/11/2018 José Miguel J Primary IVA Larry [id number] [place] Insurance:MEDICAL MAIBACHDOB: [facility] 9873-17-21CGRPlains Regional Medical Center [address]Hok: Number: Repository [id number] (HP) Date:2637-39-03AL [address] [address]HU: 02/11/2018 Secondary NOT GIVENUNK [place] Insurance:SELF PAY [facility] Number: Effective Repository Date:2018-01-28 02/08/2018 José Miguel Markham Primary IVA Ronit Larry [id number] [place] Insurance:MEDICAL MAIBACHDOB: [facility] 7423-52-72WIOPlains Regional Medical Center [address]Cmx: Number: Repository [id number] (HP) Date:1135-94-87KW [place] [address]WP: 02/08/2018 Secondary NOT GIVENUNK [place] Insurance:SELF PAY [facility] Number: Effective Repository Date:2018-01-25 02/07/2018 José Miguel Markham Primary IVA Ronit [place] [id number] [place] Insurance:MEDICAL MAIBACHDOB: [facility] 0045-26-42VGWPlains Regional Medical Center [address]896Rva: Number: Repository [id number] (HP) Date:9872-53-34FF [address] [address]TJ: 02/07/2018 Secondary [place]K [place] Insurance:SELF PAY [facility] Number: Effective Repository Date:2018-01-25 02/06/2018 José Miguel Markham Primary IVA Ronit Larry [id number] [place] Insurance:MEDICAL MAIBACHDOB: [facility] 9868-99-24EEWPlains Regional Medical Center [address]Ipt: Number: Repository [id number] (HP) Date:3896-70-10WZ [address] [address]WV: 02/06/2018 Secondary NOT GIVENUNK [place] Insurance:SELF PAY [facility] Number: Effective Repository Date:2018-01-25 02/05/2018 José Miguel J Primary IVA Ronit Larry [id number] [place] Insurance:MEDICAL MAIBACHDOB: [facility] 1870-02-57MXSPlains Regional Medical Center [address]Wge: Number: Repository [id number] (HP) Date:7802-14-37OH [address] [place] [address]FX: 02/05/2018 Secondary NOT GIVENUNK [place] Insurance:SELF PAY [facility] Number: Effective Repository Date:2018-01-25 02/04/2018 José Miguel Markham Primary IVA [place] [id number] [place] Insurance:MEDICAL MAIBADOB: [facility] 2614-27-38TYBPlains Regional Medical Center [address]Wxt: Number: Repository [id number] (HP) Date:1555-47-43TP [address] [place], [place] [address]WP: 02/04/2018 Secondary NOT GIV[place]UNK [place] Insurance:SELF PAY [facility] Number: Effective Repository Date:2018-01-25 01/18/2018 José Miguel Markham Primary IVA [place] [id number] [place] Insurance:MEDICAL MAIBADOB: [facility] 7248-69-10ZFPPlains Regional Medical Center [address]Baz: Number: Repository [id number] (HP) Date:9866-39-24RN [place] [address]WP: 01/18/2018 Secondary NOT GIVENUNK [place] Insurance:SELF PAY [facility] Number: Effective Repository Date:2018-01-17 01/17/2018 José Miguel Markham Primary IVA [place] [id number] [place] Insurance:MEDICAL MAIBADOB: [facility] 6086-09-19RERPlains Regional Medical Center [address]Sqk: Number: Repository [id number] (HP) Date:4551-41-90MP [address] [place], [place] [address]WP: 01/17/2018 Secondary NOT GIVENUNK [place] Insurance:SELF PAY [facility] Number: Effective Repository Date:2018-01-10 01/16/2018 José Miguel Markham Primary IVA Ronit Larry [id number] [place] Insurance:MEDICAL MAIBACHDOB: [facility] 9792-86-54WEFPlains Regional Medical Center [address]Vxi: Number: Repository [id number] (HP) Date:9581-35-26SC [address] [address]UT: 01/16/2018 Secondary NOT GIVENUNK [place] Insurance:SELF PAY [facility] Number: Effective Repository Date:2018-01-10 01/15/2018 José Miguel Markham Primary IVA Ronit Larry [id number] [place] Insurance:MEDICAL MAIBACHDOB: [facility] 5787-61-38UVOSunset [place] Number: Repository [id number]: 330 [id number] [phone] (HP) Date:1061-34-81SZ [address] [address]RV: 01/15/2018 Secondary NOT GIVENUNK [place] Insurance:SELF PAY [facility] Number: Effective Repository Date:2018-01-10 01/14/2018 José Miguel CASTILLO Ronit Larry [id number] [place] Insurance:MEDICAL MAIBACHDOB: [facility] 1405-57-89FONSunset [place] Number: Repository [id number]: 330 [id number] [phone] (HP) Date:8017-69-87IT [address] [address]PB: 01/14/2018 Secondary NOT GIV[place]K [place] Insurance:SELF PAY [facility] Number: Effective Repository Date:2018-01-10 01/09/2018 José Miguel Markham Primary IVA [place] [id number] [place] Insurance:MEDICAL MAIBACHDOB: [facility] 9845-45-03XUVSunset [place] Number: Repository [id number]: 330 [id number] [phone] (HP) Date:6218-11-68VJ [address] [address]YT: 01/09/2018 Secondary NOT GIVENUNK [place] Insurance:SELF PAY [facility] Number: Effective Repository Date:2017-12-27 01/03/2018 José Miguel Markham Primary IVA L [place] [id number] [place] Insurance:MEDICAL MAIBACHDOB: [facility] 6972-08-94SHHSunset [place], [place] Number: Repository [id number]: 330 [id number] [phone] (HP) Date:4031-16-90TY [address] [address]DG: 01/03/2018 Secondary NOT GIVENUNK [place] Insurance:SELF PAY [facility] Number: Effective Repository Date:2018-01-02 12/28/2017 José Miguel Rashi Primary IVA L [place] [id number] [place] Insurance:MEDICAL MAIBACHDOB: [facility] 2137-52-73KRQSunset [place] Number: Repository [id number]: 330 [id number] [phone] (HP) Date:2877-04-27UB [address] [address]NX: 12/28/2017 Secondary NOT GIVENUNK [place] Insurance:SELF PAY [facility] Number: Effective Repository Date:2017-12-07 12/27/2017 José Miguel Rashi Primary IVA L [place] [id number] [place] Insurance:MEDICAL MAIBACHDOB: [facility] 8112-72-15VRVPlains Regional Medical Center [address]Dgh: Number: Repository [id number] (HP) Date:3996-65-74PW [address] [address]OM: 12/27/2017 Secondary [place] GIV[place]UNK [place] Insurance:SELF PAY [facility] Number: Effective Repository Date:2017-12-07 12/26/2017 José Miguel Markham Primary Insurance:[facility] Iva Larry [id number] [facility] SERVICESCro[facility] 5569-09-31GMESunset [place] Number: Repository [id number]: 330 [id number] [phone] () Date:9848-67-54TW [address] [address]ZYJKCPWDJ, [place] [address]NQ: CHECK WEBSITE 12/26/2017 Secondary NOT GIVENUNK [place] Insurance:SELF PAY [facility] Number: Effective Repository Date:2017-12-07 12/25/2017 José Miguel Markham Primary Insurance:[facility] Iva Larry Lospejc1979 [facility] SERVICESCro[facility] 2042-55-57TIPSunset [place] Number: Repository [address]Mww: 330 [id number] [phone] () Date:4305-19-90CF [address] [address]MXRXWUBGA, [place] [address]BG: CHECK WEBSITE 12/25/2017 Secondary NOT GIVENUNK [place] Insurance:SELF PAY [facility] Number: Effective Repository Date:2017-12-07 12/24/2017 José Miguel Markham Primary Insurance:[facility] Iva Larry [id number] [facility] 2622-03-28[place] Number: Repository [id number]: 330 [id number] [phone]) Date:5770-36-79CJ [address] [address], [place] [address]TO: CHECK WEBSITE 12/24/2017 Secondary NOT GIVENUNK [place] Insurance:SELF PAY [facility] Number: Effective Repository Date:2017-12-07 12/19/2017 José Miguel Markham Primary Insurance:[facility] Iva Larry [id number] [facility]: [facility] 5301[place]14-[place] Number: Repository [address]Vfc: 330 [id number] [phone]) Date:6014-21-55CR [address] [address]IM[place]RX, [place] [address]RW: CHECK WEBSITE 12/19/2017 Secondary NOT GIVENUNK [place] Insurance:SELF PAY [facility] Number: Effective Repository Date:2017-11-30 12/07/2017 José Miguel Markham Primary Insurance:[facility] Iva Larry [id number] [facility] [id number] Number: Repository [id number]: 330 [id number] [phone] (HP) Date:3430-69-74ZT [address] [address], [place] [address]N[place]: CHECK WEBSITE 12/07/2017 Secondary NOT GIVENUNK [place] Insurance:SELF PAY [facility] Number: Effective Repository Date:2017-11-15 12/06/2017 José Miguel Markham Primary Insurance:[facility] Iva Larry [id number] [facility]chD[facility]: [facility] [id number] Number: Repository [id number]: 330 [id number] [phone] (HP) Date:6950-99-42YP [address] [address]ZQVBVXXMR, [place] [address]XY: CHECK WEBSITE 12/06/2017 Secondary NOT GIVENUNK [place] Insurance:SELF PAY [facility] Number: Effective Repository Date:2017-11-15 12/05/2017 José Miguel Markham Primary Insurance:[facility] Iva Larry [id number] [facility]: [facility] 8491-03-49[place]PSun[place] Number: Repository [id number]: 330 [id number] [phone] (HP) Date:1180-08-82TS [address] [address]SQXNIIK[place], [place] [address]HQ: CHECK WEBSITE 12/05/2017 Secondary NOT GIVENUNK [place] Insurance:SELF [facility]Y [facility] Number: Effective Repository Date:2017-11-15 12/04/2017 José Miguel Markham Primary Insurance:[facility] Iva Larry [id number] [facility]chD[facility]: [facility] [id number] Number: Repository [id number]: 330 [id number] [phone] (HP) Date:2360-45-53QL [address] [address]NWEOQYIOQ, [place] [address]VM: CHECK WEBSITE 12/04/2017 Secondary NOT GIVENUNK [place] Insurance:SELF PAY [facility] Number: Effective Repository Date:2017-11-15 12/03/2017 José Miguel Markham Primary Insurance:[facility] Iva Larry [id number] [facility] [id number], [place] Number: Repository [id number]: 330 [id number] [phone] (HP) Date:5086-71-34XG [address] [address]JWBIY, [place] [address]FG: CHECK WEBSITE 12/03/2017 Secondary NOT GIVENUNK [place] Insurance:SELF PAY [facility] Number: Effective Repository Date:2017-11-15 11/28/2017 José Miguel Markham Primary Insurance:[facility] Iva Larry [id number] [facility]chD[facility]: [facility] 3731-81-28BCESun[place] Number: Repository [id number]: 330 [id number] [phone] (HP) Date:3823-88-58TQ [address] [address]QNOWJWAHG, [place] [address]CE: CHECK WEBSITE 11/28/2017 Secondary NOT GIVENUNK [place] Insurance:SELF PAY [facility] Number: Effective Repository Date:2017-10-29
== END ==
PROVIDERS: Family Provider Family Medicine; PCP Family Medicine; Referring Provider Internal Medicine Hematology & Oncology; Visit Provider Internal Medicine Hematology & Oncology
DX: Z51.11 Encounter for antineoplastic chemotherapy (principal); C56.1 Malignant neoplasm of right ovary; C56.2 Malignant neoplasm of left ovary
CPT/HCPCS: 96367; 96413; J7050; A4216; J2405; J3490; J9351

== ENCOUNTER 2018-10-25 11:31 | Outpatient (RCR) | payer OTHER, SELFPAY ==
[2018-10-11 13:21] VITALS: BMI 30.9
[2018-10-23 13:41] LABS: Hematocrit 28.5 % (37-47); Hemoglobin 9.4 g/dl (12.0-15.0); Mean Corpuscular Hgb 30.5 pg (27.0-32.0); Mean Corpuscular Volume 92.5 fL (81-99); Mean Platelet Vol. 10.1 fl (6.2-12.0); Platelet Count 57 K/mm3 (150-450); RBC Distribution Width CV 17.5 % (11.6-14.6); RBC Distribution Width SD 57.2 fl (35.1-43.9); Red Blood Count 3.08 M/mm3 (4.2-5.4); White Blood Count 39.7 K/mm3 (4.4-11.0)
[2018-10-23 13:43] LABS: Differential Indicated MANUAL DIFF; POSITIVE COUNT YES; POSITIVE DIFFERENTIAL YES; POSITIVE MORPHOLOGY YES
[2018-10-23 14:03] LABS: Anisocytosis 1+; Hypochromasia 1+; Lymphocyte 6 % (19-41); Metamyelocyte 5 % (0-1); Monocyte 1 % (0-10); Myelocyte 1 (0-0); Neutrophil-Band 4 % (0-5); Neutrophil-Segmented 83 % (47-70); Platelet Estimate MKD DEC (ADEQ); Total Cells Counted 100 (MANUAL DIFF)
[2018-10-23 14:12] LABS: AST(SGOT) 40 U/L (15-37); Alanine Aminotransfer ALT/SGPT 69 U/L (13-56); Albumin, Serum 3.7 g/dL (3.2-5.0); Alkaline Phosphatase 255 U/L (45-117); Anion Gap 8 (5-15); BUN 10 mg/dL (7-18); BUN/Creat Ratio 13.9 RATIO (10-20); Calcium,Total 8.9 mg/dL (8.5-10.1); Chloride 107 mmol/L (98-107); Creatinine, Serum 0.72 mg/dL (0.55-1.02); EST Glomerular Filtration Rate 88 mL/min (>60); Est Glom Filt Rate - Afr Amer 106 mL/min (>60); Globulin 3.7 g/dL (2.2-4.2); Glucose 127 mg/dL (74-106); Potassium 3.6 mmol/L (3.5-5.1); Protein, Total 7.4 g/dL (6.4-8.2); Sodium Level 141 mmol/L (136-145)
[2018-10-24 14:21] LABS: Pathologist Review Reviewed
[2018-10-27 13:40] LABS: Cancer Antigen 125 78.9 U/mL (0.0-38.1)
== END 2018-10-25 12:00 | disposition home or self-care (01) ==
LOC: LAB 11:31
PROVIDERS: Family Provider Family Medicine; PCP Family Medicine; Referring Provider Internal Medicine Hematology & Oncology; Visit Provider Internal Medicine Hematology & Oncology
DX: C56.1 Malignant neoplasm of right ovary (principal); C56.2 Malignant neoplasm of left ovary
CPT/HCPCS: 36415; 80053; 85025; 86304

== ENCOUNTER → 2018-11-19 10:08 | Outpatient (CLI) | payer OTHER, SELFPAY ==
[2018-10-11 13:21] VITALS: BMI 30.9
[2018-11-19 10:23] LABS: Absolute Neutrophil Count 6.5 X10^3/uL (2.0-7.7); Basophil# 0.03 X10^3/uL; Basophil% 0.3 % (0-1); Eosinophils% 4.4 % (0-5); Hematocrit 34.6 % (37-47); Hemoglobin 10.8 g/dl (12.0-15.0); Lymphocyte % 18.6 % (19-41); Mean Corp Hgb Conc 31.2 g/gl (32-36); Mean Corpuscular Hgb 29.3 pg (27.0-32.0); Mean Platelet Vol. 10.1 fl (6.2-12.0); Monocyte# 0.42 X10^3/uL; Monocyte% 4.6 % (0-10); Neutrophil # 6.54 X10^3/uL (2.7-7.7); Neutrophil % 71.6 % (47-70); Platelet Count 268 K/mm3 (150-450); RBC Distribution Width CV 17.4 % (11.6-14.6); RBC Distribution Width SD 59.9 fl (35.1-43.9); Red Blood Count 3.68 M/mm3 (4.2-5.4); White Blood Count 9.1 K/mm3 (4.4-11.0)
[2018-11-19 10:26] LABS: POSITIVE COUNT NO; POSITIVE DIFFERENTIAL NO; POSITIVE MORPHOLOGY NO
[2018-11-19 10:39] LABS: AST(SGOT) 26 U/L (15-37); Alanine Aminotransfer ALT/SGPT 39 U/L (13-56); Albumin, Serum 3.9 g/dL (3.2-5.0); Alkaline Phosphatase 126 U/L (45-117); Anion Gap 7 (5-15); BUN 17 mg/dL (7-18); BUN/Creat Ratio 20.8 RATIO (10-20); Calcium,Total 8.7 mg/dL (8.5-10.1); Chloride 105 mmol/L (98-107); Creatinine, Serum 0.82 mg/dL (0.55-1.02); EST Glomerular Filtration Rate 76 mL/min (>60); Est Glom Filt Rate - Afr Amer 91 mL/min (>60); Globulin 3.9 g/dL (2.2-4.2); Glucose 94 mg/dL (74-106); Potassium 3.7 mmol/L (3.5-5.1); Protein, Total 7.8 g/dL (6.4-8.2); Sodium Level 139 mmol/L (136-145)
[2018-11-19 13:13] VITALS: BP 138/80; PULSE 79; RESP 16; TEMP 36.7; O2SAT 100; BMI 30.9
[2018-11-19 18:14] LABS: Xtra Tube EP Lab EXTRA TUBE
[2018-11-20 13:22] LABS: Cancer Antigen 125 136.2 U/mL (0.0-38.1)
--- OUTSIDE RECORDS SUMMARY | 2019-01-21 12:50 | XMS RPT_ITS ---
:1955 Author Organization [place] Support Name Relationship Address Phone JOSÉ MIGUEL CUEVA Unavailable [address] + [place] [address] R Unavailable Unavailable Unavailable JOSÉ MIGUEL CUEVA Unavailable [address] + [place] [address] R Unavailable Unavailable Unavailable JOSÉ MIGUEL CUEVA Unavailable [address] + [place] [address] R Unavailable Unavailable Unavailable JOSÉ MIGUEL CUEVA Unavailable [address] + [place] [address] R Unavailable Unavailable Unavailable JOSÉ MIGUEL CUEVA Unavailable [address] + [place] [address] R Unavailable Unavailable Unavailable JOSÉ MIGUEL CUEVA Unavailable [address] + [place] [address] R Unavailable Unavailable Unavailable JOSÉ MIGUEL CUEVA Unavailable [address] + [place] [address] R Unavailable Unavailable Unavailable JOSÉ MIGUEL CUEVA Unavailable [address] + [place] [address] R Unavailable Unavailable Unavailable JOSÉ MIGUEL CUEVA Unavailable [address] + [place] [address] R Unavailable Unavailable Unavailable JOSÉ MIGUEL CUEVA Unavailable [address] + [place] [address] R Unavailable Unavailable Unavailable JOSÉ MIGUEL CUEVA Unavailable [address] + [place] [address] R Unavailable Unavailable Unavailable JOSÉ MIGUEL CUEVA Unavailable [address] + [place] [address] R Unavailable Unavailable Unavailable MAIBACH, JOSÉ MIGUEL Unavailable [address] + [place] [address] R Unavailable Unavailable Unavailable MAIBACH, JOSÉ MIGUEL Unavailable [address] + [place] [address] R Unavailable Unavailable Unavailable MAIBACH, JOSÉ MIGUEL Unavailable [address] + [place] [address] R Unavailable Unavailable Unavailable MAIBACH, JOSÉ MIGUEL Unavailable [address] + [place] [address] R Unavailable Unavailable Unavailable MAIBACH, JOSÉ MIGUEL Unavailable [address] + [place] [address] R Unavailable Unavailable Unavailable MAIBACH, JOSÉ MIGUEL Unavailable [address] + [place] [address] R Unavailable Unavailable Unavailable MAIBACH, JOSÉ MIGUEL Unavailable [address] + [place] [address] R Unavailable Unavailable Unavailable MAIBACH, JOSÉ MIGUEL Unavailable [address] + [place] [address] R Unavailable Unavailable Unavailable MAIBACH, JOSÉ MIGUEL Unavailable [address] + [place] [address] R Unavailable Unavailable Unavailable MAIBACH, JOSÉM IGUEL Unavailable [address] + [place] [address] R Unavailable Unavailable Unavailable MAIBACH, JOSÉ MIGUEL Unavailable [address] + [place] [address] R Unavailable Unavailable Unavailable MAIBACH, JOSÉ MIGUEL Unavailable [address] + [place] [address] R Unavailable Unavailable Unavailable MAIBACH, JOSÉ MIGUEL Unavailable [address] + [place] [address] R Unavailable Unavailable Unavailable MAIBACH, JOSÉ MIGUEL Unavailable [address] + [place] [address] R Unavailable Unavailable Unavailable MAIBACH, JOSÉ MIGUEL Unavailable [address] + [place] [address] R Unavailable Unavailable Unavailable MAIBACH, JOSÉ MIGUEL Unavailable [address] + [place] [address] R Unavailable Unavailable Unavailable MAIBACH JOSÉ MIGUEL Unavailable [address] + [place] [address] R Unavailable Unavailable Unavailable OSCAR CUEVAEN Unavailable [address] + [place] [address] R Unavailable Unavailable Unavailable MAYAMILCH, JOSÉ MIGUEL Unavailable [address] + [place] [address] R Unavailable Unavailable Unavailable MAIBACH, JOSÉ MIGUEL Unavailable [address] + [place] [address] R Unavailable Unavailable Unavailable MAIBACH, JOSÉ MIGUEL Unavailable [address] + [place] [address] R Unavailable Unavailable Unavailable MAIBACH, JOSÉ MIGUEL Unavailable [address] + [place] [address] R Unavailable Unavailable Unavailable ANAY JOSÉ MIGUEL Unavailable [address] + [place] [address] R Unavailable Unavailable Unavailable YVROSEIBACH, JOSÉ MIGUEL Unavailable [address] + [place] [address] R Unavailable Unavailable Unavailable ANAY JOSÉ MIGUEL Unavailable [address] + [place] [address] R Unavailable Unavailable Unavailable СВЕТЛАНАCH, JOSÉ MIGUEL Unavailable [address] + [place] [address] R Unavailable Unavailable Unavailable ANAY JOSÉ MIGUEL Unavailable [address] + [place] [address] R Unavailable Unavailable Unavailable YVROSEIBACH, JOSÉ MIGUEL Unavailable [address] + [place] [address] R Unavailable Unavailable Unavailable YVROSEIBACH, JOSÉ MIGUEL Unavailable [address] + [place] [address] R Unavailable Unavailable Unavailable YVROSEIBACH, JOSÉ MIGUEL Unavailable [address] + [place] [address] R Unavailable Unavailable Unavailable СВЕТЛАНАCH, JOSÉ MIGUEL Unavailable [address] + [place] [address] R Unavailable Unavailable Unavailable ANAY, JOSÉ MIGUEL Unavailable [address] + [place] [address] R Unavailable Unavailable Unavailable ANAY JOSÉ MIGUEL Unavailable [address] + [place] [address] R Unavailable Unavailable Unavailable MAIBACH JOSÉ MIGUEL Unavailable [address] + [place] [address] R Unavailable Unavailable Unavailable СВЕТЛАНАCH, JOSÉ MIGUEL Unavailable [address] + [place] [address] R Unavailable Unavailable Unavailable MAIBACH, JOSÉ MIGUEL Unavailable [address] + [place] [address] R Unavailable Unavailable Unavailable MAIBACH, JOSÉ MIGUEL Unavailable [address] + [place] [address] R Unavailable Unavailable Unavailable СВЕТЛАНАCH JOSÉ MIGUEL Unavailable [address] + [place] [address] R Unavailable Unavailable Unavailable ANAY JOSÉ MIGUEL Unavailable [address] + [place] [address] R Unavailable Unavailable Unavailable OSCAR CUEVAEN Unavailable [address] + [place] [address] R Unavailable Unavailable Unavailable OSCAR CUEVAEN Unavailable [address] + [place] [address] R Unavailable Unavailable Unavailable OSCAR CUEVAEN Unavailable [address] + [place] [address] R Unavailable Unavailable Unavailable СВЕТЛАНАCH JOSÉ MIGUEL Unavailable [address] + [place] [address] R Unavailable Unavailable Unavailable ANAY JOSÉ MIGUEL Unavailable [address] + [place] [address] R Unavailable Unavailable Unavailable YVROSEIBACH, JOSÉ MIGUEL Unavailable [address] + [place] [address] R Unavailable Unavailable Unavailable YVROSEIBACHOSCAREN Unavailable [address] + [place] [address] R Unavailable Unavailable Unavailable ANAY, JOSÉ MIGUEL Unavailable [address] + [place] [address] R Unavailable Unavailable Unavailable MAIBACH, JOSÉ MIGUEL Unavailable [address] + [place] [address] R Unavailable Unavailable Unavailable MAIBACH, JOSÉ MIGUEL Unavailable [address] + [place] [address] R Unavailable Unavailable Unavailable MAIBACH, JOSÉ MIGUEL Unavailable [address] + [place] [address] R Unavailable Unavailable Unavailable MAIBACH, JOSÉ MIGUEL Unavailable [address] + [place] [address] R Unavailable Unavailable Unavailable MAIBACH, JOSÉ MIGUEL Unavailable [address] + [place] [address] R Unavailable Unavailable Unavailable MAIBACH, JOSÉ MIGUEL Unavailable [address] + [place] [address] R Unavailable Unavailable Unavailable MAIBACH, JOSÉ MIGUEL Unavailable [address] + [place] [address] R Unavailable Unavailable Unavailable MAIBACH, JOSÉ MIGUEL Unavailable [address] + [place] [address] R Unavailable Unavailable Unavailable MAIBACH, JOSÉ MIGUEL Unavailable [address] + [place] [address] R Unavailable Unavailable Unavailable MAIBACH, JOSÉ MIGUEL Unavailable [address] + [place] [address] R Unavailable Unavailable Unavailable MAIBACH, JOSÉ MIGUEL Unavailable [address] + [place] [address] R Unavailable Unavailable Unavailable MAIBACH, JOSÉ MIGUEL Unavailable [address] + [place] [address] R Unavailable Unavailable Unavailable MAIBACH, JOSÉ MIGUEL Unavailable [address] + [place] [address] R Unavailable Unavailable Unavailable MAIBACH, JOSÉ MIGUEL Unavailable [address] + [place] [address] R Unavailable Unavailable Unavailable MAIBACH, JOSÉ MIGUEL Unavailable [address] + [place] [address] R Unavailable Unavailable Unavailable MAIBACH, JOSÉ MIGUEL Unavailable [address] + [place] [address] R Unavailable Unavailable Unavailable YVROSEIBACHJOSÉ MIGUEL Unavailable [address] + [place] [address] R Unavailable Unavailable Unavailable YVROSEIBAJOSÉ MIGUEL CARDENAS Unavailable [address] + [place] [address] R Unavailable Unavailable Unavailable YVROSEIBACHJOSÉ MIGUEL Unavailable [address] + [place] [address] R Unavailable Unavailable Unavailable JOSÉ MIGUEL CUEVA Unavailable [address] + [place] [address] R Unavailable Unavailable Unavailable YVROSEIBACHJOSÉ MIGUEL Unavailable [address] + [place] [address] R Unavailable Unavailable Unavailable JOSÉ MIGUEL CUEVA Unavailable [address] + [place] [address] R Unavailable Unavailable Unavailable JOSÉ MIGUEL CUEVA Unavailable [address] + [place] [address] R Unavailable Unavailable Unavailable JOSÉ MIGUEL CUEVA Unavailable [address] + [place] [address] [facility] Unavailable [address] + [place] [address] Care Team Providers Name Role Phone OMAR [...] MASCI, OMAR Lucia Referring Unavailable PAIGE QUEEN (TREE TAPPING LABORER) Referring Unavailable THELMA LAPERIC Referring Unavailable MASCI, OMAR Lucia Attending Unavailable MASCI, OMAR Lucia Referring Unavailable MASCI, OMAR Lucia Attending Unavailable MASCI, OMAR Lucia Referring Unavailable MASCI, OMAR Lucia Attending Unavailable MASCI, OMAR Lucia Referring Unavailable MASCI, OMAR Lucia Attending Unavailable MASCI, OMAR Lucia Referring Unavailable MASCI, OMAR Lucia Referring Unavailable MASCI, OMAR Lucia Referring Unavailable PHILE, TIARA J (RUSLAN) Referring Unavailable PURYSKO, OMID Oh Admitting Unavailable PURYSKOOMID Attending Unavailable Masci, Omar Attending Unavailable Masci, Omar Referring Unavailable [facility] Unavailable Masci, Omar Attending Unavailable Masci, Omar Referring Unavailable [facility] Unavailable Masci, Omar Attending Unavailable Masci, Omar Referring Unavailable [facility] Unavailable Masci, Omar Attending Unavailable Masci, Omar Referring Unavailable [facility] Unavailable Masci, Omar Attending Unavailable Masci, Omar Referring Unavailable [facility] Unavailable Masci, Omar Attending Unavailable Masci, Omar Referring Unavailable [facility] Unavailable Masci, Omar Attending Unavailable Masci, Omar Referring Unavailable [facility] Unavailable Masci, Omar Attending Unavailable Masci, Omar Referring Unavailable [facility] Unavailable Masci, Omar Attending Unavailable Masci, Omar Referring Unavailable [facility] Unavailable Masci, Omar Attending Unavailable Masci, Omar Referring Unavailable [facility] Unavailable Masci, Omar Attending Unavailable Masci, Omar Referring Unavailable [facility] Unavailable Masci, Omar Attending Unavailable Masci, Omar Referring Unavailable [facility] Unavailable Masci, Omar Attending Unavailable Masci, Omar Referring Unavailable [facility] Unavailable Masci, Omar Attending Unavailable Masci, Omar Referring Unavailable [facility] Unavailable Masci, Omar Attending Unavailable Masci, Omar Referring Unavailable [facility] Unavailable Masci, Omar Attending Unavailable Masci, Omar Referring Unavailable [facility] Unavailable Masci, Omar Attending Unavailable Masci, Omar Referring Unavailable [facility] Unavailable Masci, Omar Attending Unavailable Masci, Omar Referring Unavailable [facility] Unavailable Masci, Omar Attending Unavailable Masci, Omar Referring Unavailable [facility] Unavailable Masci, Omar Attending Unavailable Masci, Omar Referring Unavailable [facility] Unavailable Masci, Omar Attending Unavailable Masci, Omar Referring Unavailable [facility] Unavailable Masci, Omar Attending Unavailable Masci, Omar Referring Unavailable [facility] Unavailable Masci, Omar Attending Unavailable Masci, Omar Referring Unavailable [facility] [place] [facility] Unavailable Masci, Omar Attending Unavailable Masci, Omar Referring Unavailable [place] [place] [facility] Unavailable Masci, Omar Attending Unavailable Masci, Omar Referring Unavailable [facility] [place] [facility] Unavailable Masci, Omar Attending Unavailable Masci, Omar Referring Unavailable [place] [place] [facility] Unavailable Masci, Omar Attending Unavailable Masci, Omar Referring Unavailable [place] [place] [facility] Unavailable Masci, Omar Attending Unavailable Masci, Omar Referring Unavailable [place] [place] [facility] Unavailable Masci, Omar Attending Unavailable Masci, Omar Referring Unavailable [place] [place] [facility] Unavailable Masci, Omar Attending Unavailable Masci, Omar Referring Unavailable [place] [place] [facility] Unavailable Masci, Omar Attending Unavailable Masci, Omar Referring Unavailable [place], [place] [facility] Unavailable Masci, Omar Attending Unavailable Masci, Omar Referring Unavailable [place] [place] [facility] Unavailable Masci, Omar Attending Unavailable Masci, Omar Referring Unavailable [place], [place] [facility] Unavailable Masci, Omar Attending Unavailable [place], [place] [facility] Unavailable Masci, Omar Attending Unavailable Masci, Omar Referring Unavailable [place], [place] [facility] Unavailable Masci, Omar Attending Unavailable Masci, Omar Referring Unavailable [place] [place] [facility] Unavailable Masci, Omar Attending Unavailable Masci, Omar Referring Unavailable [place], [place] [facility] Unavailable Masci, Omar Attending Unavailable Masci, Omar Referring Unavailable [place], [place] [facility] Unavailable Masci, Omar Attending Unavailable Masci, Omar Referring Unavailable [place], [place] [facility] Unavailable Masci, Omar Attending Unavailable Masci, Omar Referring Unavailable [place], [place] [facility] Unavailable Masci, Omar Attending Unavailable Masci, Omar Referring Unavailable [place] [place] [facility] Unavailable Masci, Omar Attending Unavailable Masci, Omar Referring Unavailable [place] [place] [facility] Unavailable Masci, Omar Attending Unavailable Masci, Omar Referring Unavailable [place] [place] [facility] Unavailable Masci, Omar Attending Unavailable Masci, Omar Referring Unavailable [place] [place] [facility] Unavailable Masci, Omar Attending Unavailable Masci, Omar Referring Unavailable [place], [place] [facility] Unavailable Marcy Bruno Attending Unavailable Jose RobertoanthonyMarcy Referring Unavailable [place], [place] [facility] Unavailable Marcy Bruno Attending Unavailable [place], [place] Referring Unavailable Masci, Omar Attending Unavailable Masci, Omar Referring Unavailable [place], [place] [facility] Unavailable Masci, Omar Attending Unavailable Masci, Omar Referring Unavailable [place], [place] [facility] Unavailable Masci, Omar Attending Unavailable Masci, Omar Referring Unavailable [place], [place] [facility] Unavailable Masci, Omar Attending Unavailable Masci, Omar Referring Unavailable [place], [place] [facility] Unavailable Masci, Omar Attending Unavailable Masci, Omar Referring Unavailable [place], [place] [facility] Unavailable Masci, Omar Attending Unavailable Masci, Omar Referring Unavailable [place], [place] [facility] Unavailable Masci, Omar Attending Unavailable Masci, Omar Referring Unavailable [place], [place] [facility] Unavailable Masci, Omar Attending Unavailable Masci, Omar Referring Unavailable [place], [place] [facility] Unavailable Masci, Omar Attending Unavailable Masci, Omar Referring Unavailable [place], [place] [facility] Unavailable Masci, Omar Attending Unavailable Masci, Omar Referring Unavailable [place], [place] [facility] Unavailable Masci, Omar Attending Unavailable Masci, Omar Referring Unavailable [facility], [place] [facility] Unavailable Masci, Omar Attending Unavailable Masci, Omar Referring Unavailable [facility], [place] [facility] Unavailable Masci, Omar Attending Unavailable Masci, Omar Referring Unavailable [place], [place] [facility] Unavailable Masci, Omar Attending Unavailable Masci, Omar Referring Unavailable [place], [place] [facility] Unavailable Masci, Omar Attending Unavailable Masci, Omar Referring Unavailable [facility], [place] [facility] Unavailable Masci, Omar Attending Unavailable Masci, Omar Referring Unavailable [place], [place] [facility] Unavailable Masci, Omar Attending Unavailable Masci, Omar Referring Unavailable [place], [place] [facility] Unavailable Masci, Omar Attending Unavailable Masci, Omar Referring Unavailable [place], [place] [facility] Unavailable Masci, Omar Attending Unavailable Masci, Omar Referring Unavailable [place], [place] [facility] Unavailable Masci, Omar Attending Unavailable Masci, Omar Referring Unavailable [place], [place] [facility] Unavailable Masci, Omar Attending Unavailable Masci, Omar Referring Unavailable [place], [place] [facility] Unavailable Masci, Omar Attending Unavailable Masci, Omar Referring Unavailable [place], [place] [facility] Unavailable Masci, Omar Attending Unavailable Masci, Omar Referring Unavailable [place], [place] [facility] Unavailable Masci, Omar Attending Unavailable Masci, Omar Referring Unavailable [place], [place] [facility] Unavailable Masci, Omar Attending Unavailable Masci, Omar Referring Unavailable [place], [place] [facility] Unavailable Masci, Omar Attending Unavailable Masci, Omar Referring Unavailable [place], [place] [facility] Unavailable Masci, Omar Attending Unavailable Masci, Omar Referring Unavailable [place], [place] [facility] Unavailable Masci, Omar Attending Unavailable Masci, Omar Referring Unavailable [place], [place] [facility] Unavailable Masci, Omar Attending Unavailable Masci, Omar Referring Unavailable [place], [place] [facility] Unavailable Masci, Omar Attending Unavailable Masci, Omar Referring Unavailable [place], [place] [facility] Unavailable Masci, Omar Attending Unavailable Masci, Omar Referring Unavailable [facility], [place] [facility] Unavailable Masci, Omar Attending Unavailable Masci, Omar Referring Unavailable [place], [place] [facility] Unavailable Masci, Omar Attending Unavailable Masci, Omar Referring Unavailable [place], [place] [facility] Unavailable Masci, Omar Attending Unavailable Masci, Omar Referring Unavailable [place], [place] [facility] Unavailable Masci, Omar Attending Unavailable Masci, Omar Referring Unavailable [place], [place] [facility] Unavailable Masci, Omar Attending Unavailable Masci, Omar Referring Unavailable [facility], [place] [facility] Unavailable PROBLEMS PROBLEMS DATE TYPE CONDITION / CODE ATTENDING STATUS SOURCE 10/28/2018 Active Malignant neoplasm of NA Active [facility] unspecified ovary / Clinic Main C56.9(ICD-10) [place] Repository 10/28/2018 Active Disseminated malignant NA Active [place] neoplasm, unspecified Clinic Main / C80.0(ICD-10) [place] Repository 10/28/2018 Active Unknown / UNK(Unknown) NA Active [facility] [place] Repository 09/17/2018 Unknown N63.20 - Unspecified Marcanthony, Active [place] lump in the left [facility] breast, unspecified Hospital quadrant / Repository N63.20(ICD-10) 08/29/2018 Unknown C56.1 - Malignant Omar Gross Active [facility] neoplasm of right Community ovary / C56.1(ICD-10) Hospital Repository 07/04/2018 Active Nausea with vomiting, OMAR GROSS Active [facility] unspecified / Clinic Main R11.2(ICD-10) [place] Repository 07/04/2018 Active Adverse effect of OMAR GROSS Active [facility] antineoplastic and Clinic Main immunosuppressive [place] drugs, initial Repository encounter / T45.1X5A(ICD-10) 02/15/2016 Active Malignant neoplasm of NA Active [facility] right ovary / Clinic Main C56.1(ICD-10) [place] Repository 02/15/2016 Active Malignant neoplasm of NA Active [facility] left ovary / Clinic Main C56.2(ICD-10) [place] Repository 04/24/2018 Unknown Z51.11 - Encounter for Omar Gross Active [place] antineoplastic [facility] chemotherapy / Hospital Z51.11(ICD-10) Repository 04/24/2018 Unknown C56.9 - Malignant Omar Gross Active [place] neoplasm of [facility] unspecified ovary / Hospital C56.9(ICD-10) Repository PROCEDURES PROCEDURES No Procedure Records FoundRESULTS RESULTS CBC W/DIFF, AUTOMATED Collected: 11/19/2018 Status: F Source: [place] 9:58 AM [facility] REPOSITORY TYPE CODE TESTS RESULT OUT [...] Lymph 1.70 Performed By: #### L100.0100 #### [facility] [place], [address] COMPREHENSIVE METABOLIC Collected: 11/19/2018 Status: F Source: [place] [facility] 9:58 AM [facility] REPOSITORY TYPE CODE TESTS RESULT OUT OF [...] GAP 7 Performed By: #### L500.4050 #### [facility] [place], [address] CANCER ANTIGEN 125 Collected: 11/19/2018 Status: F Source: [place] 9:58 AM [facility] REPOSITORY TYPE CODE TESTS RESULT OUT OF RANGE REFERENCE UNITS LAB L3100.5000 0.0-38.1 U/mL High CA125 136.2 2303 Result Comment: [facility] Electrochemiluminescence Immunoassay (ECLIA) Values obtained with different assay methods or kits cannot be used interchangeably. Results cannot be interpreted as absolute evidence of the presence or absence of malignant disease. Performed at: [facility] [address] [id number] Environmental Quality Analyst: Carlo Bass PhD, Phone: [phone] Performed By: #### L3100.5000 #### [facility] (refer to report for specific site) refer to report for address and phone number NURSING PROG Observed: 11/04/2018 Status: COMPLETED Source: [place] 8:00 PM [facility] REPOSITORY HNO ID: [id number] Author: Amara Bishop) MARTELL De La Torre Service: (none) Author Type: LICENSED NURSE Type: Nursing Progress Note Filed: 11/05/2018 8:43 AM Note Text: Radiology post procedure telephone follow-up call attempted. Left voice message requesting a return phone call to [phone] if experiencing any problems or concerns. After hours please call [phone] and ask for pager [phone] SURGICAL PATHOLOGY Observed: 11/04/2018 Status: C Source: [place] 4:00 PM [facility] REPOSITORY ADDENDUM PRESENT Specimen originated from [facility] Specimen #: [id number] Submitting Physician: OMID GEE MD FINAL DIAGNOSIS [...] in one cassette. Gross examination performed at [facility], [address] [place] [address] 11/04/2018 9:34:25 PM Date of Report: 11/05/2018 Date of Procedure: 11/04/2018 Date of Receipt: 11/04/2018 Submitted by: OMID GEE MD Additional Physician(s): OMAR GROSS M.D. ([id number]) Location: [facility] Diagnostic interpretation performed at [facility], [address] [place] [address] BIOPSY ABD/RETROPERIT Observed: 11/04/2018 Status: F Source: [facility] 3:48 PM [facility]IN [facility] REPOSITORY * * *Final Report* * * DATE OF EXAM: Nov 04 2018 3:48PM [facility] [place] CT BIOPSY ABD/RETROPERIT MASS / [...] and omental/peritoneal nodules. STAFF RADIOLOGIST: Dr. Gee CHALK EXTRUDING MACHINE OPERATOR(S): Mariana Wood APRN, CNP CONSENT: The risks, [...] The procedure was performed by the: the staff assistant, and the attending radiologist personally supervised [...] GUIDED OMENTAL MASS BIOPSY DESCRIBED v 10/31/16 Partridge Farmer: PSCB Transcribe Date/Time: Nov 04 2018 3:49P Dictated by : OMID GEE MD This examination was interpreted and the report reviewed and electronically signed by: OMID GEE MD on Nov 04 2018 4:34PM EST [id number] BRIEF OP NOT Observed: 11/04/2018 Status: COMPLETED Source: [place] 3:46 PM [facility] REPOSITORY [facility] ID: [id number] Author: Mariana Wood Service: Radiology Author Type: Nurse Practitioner Type: Brief Op Note Filed: 11/04/2018 3:47 PM Note Text: BRIEF OPERATIVE / PROCEDURE NOTE LOG ID: [id number] SURGERY/PROCEDURE DATE: 11/04/2018 INCISION/PROCEDURE START TIME: 3:19 PM INCISION CLOSE/PROCEDURE END TIME: 3:33 PM SURGEON(S)/PROCEDURALIST(S) AND CHALK EXTRUDING MACHINE OPERATOR(S): Surgeon(s) and Role: * Omid Gee - Primary Mariana Wood CHEMIST ASSISTANT TREE TAPPING LABORER- Building Carpenter SURGERY/PROCEDURE(S): CT guided biopsy of peritoneal nodule ANESTHESIA: Procedural Sedation FINDINGS: nodule consistent with previous imaging ESTIMATED BLOOD LOSS: minimal SPECIMENS: four 18 gauge cores COMPLICATIONS: None PRE-OP/PRE-PROCEDURE DIAGNOSIS: 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 POST-OP/POST-PROCEDURE DIAGNOSIS: Same as above SIGNATURE: Mariana Wood APRN.CNP PATIENT NAME: Iva Cueva DATE: November 04, 2018 TIME: 3:46 PM PAGER/CONTACT #: [phone] PROGRESS Observed: 11/04/2018 Status: COMPLETED Source: [place] 3:44 PM [facility] REPOSITORY HNO ID: [id number] Author: AWA Stroud (Ct) Service: (none) Author Type: Clinical Application Internship Type: Progress Notes Filed: 11/04/2018 3:49 PM [...] PT ED Observed: 11/04/2018 Status: COMPLETED Source: [place] 2:47 PM [facility] REPOSITORY HNO ID: [id number] Author: Griselda Lynch) TOMÁS Rodriguez Service: (none) Author Type: Registered [...] HISTORY PHYSICAL Observed: 11/04/2018 Status: COMPLETED Source: [place] 2:20 PM [facility] REPOSITORY HNO ID: [id number] Author: Omid Gee Service: Radiology Author Type: [...] November 04, 2018 TIME: 2:20 PM PAGER: [phone] CBC Collected: 11/01/2018 Status: F Source: [place] 1:16 PM [facility] REPOSITORY TYPE CODE TESTS RESULT [...] nRBC <0.01 Performed By: #### CBC #### [facility] [address] [place], [place] [id number] PROTIME Collected: 11/01/2018 Status: F Source: [place] 1:15 PM [facility] REPOSITORY TYPE CODE TESTS RESULT OUT OF RANGE REFERENCE UNITS LAB PSEC 9.7-13.0 sec PT Sec 10.5 LAB INR 0.9-1.3 PT INR 1.0 Result Comment: Vitamin K Antagonist (VKA) Therapeutic Range: INR 2 to 3 (Target INR of 2.5) Note: For patients treated with VKA drugs, such as warfarin, the [employer] Chest [employer]icians 2012 Guideline recommends [...] Chest 2012, 141:7S-47S Pee RA, et al. JAC 2017, 70: 252-289 Performed By: #### PT #### [facility] [address], [place] [id number] NURSING PROG Observed: 10/31/2018 Status: COMPLETED Source: [place] 1:29 PM [facility] REPOSITORY HNO ID: [id number] Author: Amara De La Torre LPN Service: (none) Author Type: LICENSED NURSE Type: Nursing Progress Note Filed: 10/31/2018 1:39 PM Note Text: Pre-procedure phone calls: Contacted Iva Cueva and confirmed appt. for Biopsy scheduled on 11/04/2018, at [facility]. I will be providing you with instructions [...] to be drawn by 11/01/2018 at the [facility] closest to your home or your procedure will be rescheduled. Arrival: Please bring your Photo ID and Insurance Card. A general consent may need to be signed. Arrive to [facility] ([facility]) Admitting/Registration by 12:30pm. Then proceed to desk B-1 ([facility]) and check in for your procedure. Your anticipated procedure start time will be between 2 AND 2:30pm. Supervisor Ordnance Truck Installation/Transportation: How will you be arriving for your procedure? private car. If you will be arriving at [facility] via ambulance or public transportation, please call to discuss. You will need a responsible adult to accompany you to and from the procedure. Your driver manager is required to stay with you until [...] you... What is your arrival time to [facility]? 1230pm What time do you stop eating food? 6am What time can you have clears until? 12 noon Tell me how you will be taking your medications the morning of your procedure? water Written instructions provided to patient via [employer] [employer] If you have any questions please call [phone] HOSP Observed: 10/31/2018 Status: COMPLETED Source: [place] 12:00 AM [facility] REPOSITORY Patient:Iva Cueva MRN: <[id number]> Height:5' 4(1.626 m) Weight:183 lb (83.008 kg) [...] % 11/01/2018 46.0 36.0 Progress Notes ([facility]): Ania Reed LPN, MANAGER MEDICAL DEVICE 11/01/2018 9:11 AM Signed Diane Ragland Wstr Hem/Onc Pool Cc: Randa Davison (Cbo) ? Good morning All, I am contacting you from the Precertification Department here at the [facility]. Iva Cueva, , is being reviewed for the following procedure: [address]1794- CT Chest on 10/28/2018. Clinical has been submitted to the patient's insurance company [employer] and the request was denied. Please see [...] Who can complete peer to peer: , CVT RN, PA, you need to get verbal consent from the patient in order to complete the peer review as the insurance will ask if verbal consent has been obtained prior to the peer review. Peer to Peer Information: Peer to peer phone #: [phone] (option 4, 2) Appeal fax #: [phone] Appeal mailing address: [facility] Attn: Appeals [address] [place] [address], [place] [address] Case reference #: [id number] [facility] NPI :[id number] ?[facility] TAX ID [id number] Thank you for your attention to this matter, Diane Queen APRN.ILDEFONSO 11/01/2018 10:32 AM Signed Peer to peer scheduled for Sunday at 8a.m. ZACARIAS Amin APRN.CNP 11/04/2018 8:42 AM Signed Approved. #[id number]. Paige Queen APRN.CNP Progress Notes ([facility]): Rosy Roth Psr 10/31/2018 12:25 PM Signed Patient wanted to give Dr. Gross a heads up that she is having a procedure on Sunday11-04-18 at [facility]. She also wanted to talk about the chemo schedules she will be traveling a lot not sure how it is going to fit into her schedule. She would like for Dr Gross give her a call so she may talk to him. Omar Gross DO 10/31/2018 1:16 PM Signed I spoke with her. DO SHAZIA Dominguez Observed: 10/30/2018 Status: COMPLETED Source: [place] 12:00 AM [facility] REPOSITORY Telephone (HEMAWS) IVA CUEVA ([id number]) 1955 F Date Time Provider Department 10/30/18 [...] order for this to be done at [facility]. Let's arrange for her. DO Lora [facility] 10/30/2018 9:51 AM Signed Called call center to be triaged - [phone] Once triaged, they will call patient to schedule. Radha Galan Psr 10/30/2018 9:52 AM Signed RADIOLOGY CALL CENTER INTAKE TRAVERSE ROD ASSEMBLER: radha EXT: [phone] DATE: October 30, 2018 TIME: 9:46 AM TRACKING #. [phone] REQUESTING PERSON: rody PHONE/PAGER: [phone] REQUESTING STAFF: Dr gross PHONE/PAGER: [phone] ORDERING DESK LOCATION: [facility] If inpatient, patient location: Never done (Note: requests for inpatient's procedures should be given to the O.D. nurse at pager #[phone]) If outpatient, best way to reach patient: [...] random biopsies do not need imaging.) IMAGING: [facility] (If the imaging was obtained outside the [facility] system, then it needs to be submitted for review prior to approval.) Note to all persons requesting biopsies: All biopsy requests will be scheduled as quickly as possible, based on the clinical urgency, availability of appointment times, the need to hold anti-thrombolytic therapy (aspirin, blood thinners) and the patient?s schedule, including the need for an available driver manager. If a percutaneous biopsy or drainage is not felt to be safe or an alternative method for establishing a diagnosis is possible, this will be discussed directly with the requesting physician. Amara De La Torre LPN, MANAGER MEDICAL DEVICE 10/30/2018 2:46 PM Signed . BX. COORDINATOR [...] a message was left 1st attempt Madhavi Volodymyr 10/31/2018 12:11 PM Signed Spoke to pt [...] Fully Assessed Reason for Visit: Biopsy Request [1572] Primary Visit Diagnosis:Cancer of both ovaries (HCC) [C56.1, C56.2] Order(s):IMAGING GUIDED BIOPSY ABDOMEN/RETROPERITONEAL MASS [[id number]] Order #: [id number] Prescriptions as of 10/30/2018 Sig: ZOLPIDEM 5 [...] 10/31/18 PROGRESS Observed: 10/28/2018 Status: COMPLETED Source: [place] 3:19 PM [facility] REPOSITORY HNO ID: [id number] Author: Ofelia Jonse Service: (none) Author Type: (none) Type: Progress [...] W IVCON Observed: 10/28/2018 Status: F Source: [place] 3:19 PM [facility] [place] REPOSITORY * * *Final Report* * * DATE OF EXAM: Oct 28 2018 3:19PM [facility] 0539 - CT CHEST W IVCON [...] Small amount of fluid in the pelvis Partridge Farmer: AVA Transcribe Date/Time: Oct 28 2018 4:11P Dictated by : CARLOS ALBERTO HASKINS MD This examination was interpreted and the report reviewed and electronically signed by: CARLOS ALBERTO HASKINS MD on Oct 28 2018 4:49PM EST [id number] CT ABD/PEL W IVCON Observed: 10/28/2018 Status: F Source: [place] 3:19 PM [facility] REPOSITORY * * *Final Report* * * DATE OF EXAM: Oct 28 2018 3:19PM [facility] 0530 - CT ABD/PEL W IVCON [...] Small amount of fluid in the pelvis Partridge Farmer: PSCB Transcribe Date/Time: Oct 28 2018 4:11P Dictated by : CARLOS ALBERTO HASKINS MD This examination was interpreted and the report reviewed and electronically signed by: CARLOS ALBERTO HASKINS MD on Oct 28 2018 4:49PM EST [id number] CANCER ANTIGEN 125 Collected: 10/25/2018 Status: F Source: [place] 11:42 AM [facility] REPOSITORY TYPE CODE TESTS RESULT OUT OF RANGE REFERENCE UNITS LAB L3100.5000 0.0-38.1 U/mL High CA125 78.9 2303 Result Comment: Transaction [employer] ECLIA methodology Performed at: [facility] [address] [id number] Environmental Quality Analyst: Carlo Bass PhD, Phone: [phone] Performed By: #### L3100.5000 #### [facility] (refer to report for specific site) refer to report for address and phone number PROGRESS Observed: 10/24/2018 Status: COMPLETED Source: [place] 4:14 PM [facility] [place] REPOSITORY HNO ID: [id number] Author: Omar Gross Service: (none) Author Type: Physician Type: Progress Notes Filed: 10/24/2018 8:10 PM Note Text: Diagnosis: 1) Ovarian cancer. ? HPI: The patient is a 63 year old female who presented to her PCP prior to a trip to [facility] for vaccinations. She reported that she [...] Taxol x 6 cycles, completed 05/27/13. 6) Naranjito/carbo/cassandra x cycles for biopsy proven metastatic disease [...] No jaundice or rash. No petechiae. NEUROLOGIC: dimensional inspector II-XII are grossly intact. No focal motor [...] DO CNOVSP Observed: 10/24/2018 Status: COMPLETED Source: [place] 4:00 PM [facility] REPOSITORY [facility] (SP[facility] ([id number]) 1955 F Date Time Provider Department 10/24/18 4:00 PM OMAR GROSS During your visit today, we recorded the following information about you: Temperature Pulse Blood pressure Weight 97.4 degrees 86/minute 137/89 83 kg Ania Reed LPN, MARTELL 10/24/2018 4:45 PM Signed Est . Pt. Discuss recent labs, poss tx Sunday MARTELL Grimaldo, 10/24/2018 8:10 PM Signed Diagnosis: 1) Ovarian cancer. ? HPI: The patient is a 63 year old female who presented to her PCP prior to a trip to [facility] for vaccinations. She reported that she [...] Taxol x 6 cycles, completed 05/27/13. 6) Naranjito/carbo/cassandra x cycles for biopsy proven metastatic disease [...] No jaundice or rash. No petechiae. NEUROLOGIC: dimensional inspector II-XII are grossly intact. No focal motor [...] Omar Gross DO Referring Provider: OMAR GROSS [[id number]] Allergies As of Date: 10/24/2018 Noted Allergy [...] Carcinomatosis (HCC) [C80.0] Order(s):CT ABD/PEL W IVCON [[id number]] Order #: [id number] FUTURE CT CHEST W IVCON [[id number]] Order #: [id number] FUTURE iv contrast (will be provided with [...] More... Visit Notes: >> Ania Reed LPN Brea Oct 24, 2018 4:11 PM Status: Signed Est . Pt. Discuss recent labs, poss tx Sunday Ania Reed LPN Encounter Status:Closed by OMAR GROSS DO on 10/24/18 CBC W/DIFF, AUTOMATED Collected: 10/23/2018 Status: C Source: [place] 12:53 PM [facility] REPOSITORY Order Comment: CRITICAL VALUE VERIFIED. CALLED TO AJNE 10/23/18 Regina Recinos. RESULTS READ BACK BY [...] as: February Performed By: #### L100.0100 #### [facility] [address] [place], [place], [address] COMPREHENSIVE METABOLIC Collected: 10/23/2018 Status: F Source: [facility] 12:53 PM [facility] REPOSITORY TYPE CODE TESTS RESULT OUT OF [...] GAP 8 Performed By: #### L500.4050 #### [facility] [address] [place], [address] Observed: 10/09/2018 Status: F Source: [place] [facility] ([facility] 3:15 PM [facility] REPOSITORY Is the patient receiving laxatives? N New/unexplained onset of 3 or more stools in past 24 hrs? Y Has pt arrived? Y Cdiff-Molecular Normal Reference Range = Negative C. Diff DNA Negative- No toxigenic C. Diff DNA Detected NAAT METHOD Testing was performed using nucleic acid amplification Performed By: #### M100.6796 #### [facility] [address], [address] CBC W/DIFF, AUTOMATED Collected: 10/07/2018 Status: F Source: [place] 9:49 AM [facility] REPOSITORY TYPE CODE TESTS RESULT OUT OF [...] Lymph 1.28 Performed By: #### L100.0100 #### [facility] [address] [place], [place], [address] COMPREHENSIVE METABOLIC Collected: 10/07/2018 Status: F Source: [place] 9:49 AM [facility] REPOSITORY TYPE CODE TESTS RESULT OUT OF [...] GAP 8 Performed By: #### L500.4050 #### [facility] [address] [place], [address] CANCER ANTIGEN 125 Collected: 10/07/2018 Status: F Source: [place] 9:49 AM [facility] REPOSITORY TYPE CODE TESTS RESULT OUT OF RANGE REFERENCE UNITS LAB L3100.5000 0.0-38.1 U/mL High CA125 90.0 2303 Result Comment: Meghna ECLIA methodology Performed at: - [facility] [address] [id number] Environmental Quality Analyst: Carlo Bass PhD, Phone: [phone] Performed By: #### L3100.5000 #### [facility] (refer to report for specific site) refer to report for address and phone number BREAST LIMITED Observed: 09/26/2018 Status: F Source: [place] UNILATER[place] 1:24 PM [facility] REPOSITORY [facility] Imaging Services [address] [place] [address] Breast Limited Unilateral MR#: [id number] Acct: [id number] Name: IVA CUEVA Rep #: [id number] : 1955 F 63 From: Shahbaz Munguia MD PCP: Peter Deras MD Status: REG CLI Study: Breast Limited Unilateral Date of Exam: 09/26/18 Exam# [id number] Ordering Dr: Marcy Bruno MD STUDY: ULTRASOUND [...] Shahbaz Munguia MD at 15:18 EST Tel [phone], Service support , CC: Peter Deras MD; Marcy Bruno MD Partridge Farmer: Signed DIAG MAMM W/CAD, Observed: 09/26/2018 Status: F Source: [place] BILAT 1:24 PM [facility] REPOSITORY [facility] Imaging Services [facility] [place] [place] [address] DIAG MAMM W/CAD, BILAT MR#: [id number] Acct: [id number] Name: IVA CUEVA Rep #: [id number] : 1955 F 63 From: Shahbaz Munguia MD PCP: Peter Deras MD Status: REG CLI Study: DIAG MAMM W/CAD, BILAT Date of Exam: 09/26/18 Exam# [id number] Ordering Dr: Marcy Bruno MD MAMMOGRAPHY - [...] Shahbaz Munguia MD at 8:58 EST Tel [phone], Service support , CC: Peter Deras MD; Marcy Bruno MD Partridge Farmer: Signed ADULT CROSSING GUARD OFFICE VISIT Observed: 09/26/2018 Status: F Source: [place] REPORT 6:[address] [facility] [address] [place] [address] OFFICE VISIT Date of Service: 09/17/18 MR#: [id number] Acct: [id number] Name: IVA CUEVA Rep #: [id number] : 1955 Provider: Marcy Bruno MD Age/Sex: 63/F [place] [facility] Status: Signed Intake Vital Signs09/17/18 Height 5 ft 4 in 09/17/18 Weight: 189 lb 2 oz 09/17/18 Body Mass Index (BMI) 32.4 09/17/18 Blood Pressure 122/80 H Intake Visit Reasons: ANNUAL Chief Complaint: est annual Funeral Professional Required: No Is patient in pain?: No [...] abortions Past Pregnancies Del. DatName GA/WeeksOutcome Route Bt Nadeem Rasheed LgAnesthesDel LocaProviderFOB e ht en ia tn Unknown [...] Const General: cooperative, comfortable, no acute distress [facility] Head: normal to inspection, normocephalic, other (absence [...] CC: PROGRESS Observed: 08/30/2018 Status: COMPLETED Source: [place] 3:15 PM [facility] REPOSITORY [facility] ID: [id number] Author: Omar Gross Service: (none) Author Type: Physician Type: Progress Notes Filed: 09/02/2018 9:16 AM Note Text: Diagnosis: 1) Ovarian cancer. ? HPI: The patient is a 63 year old female who presented to her PCP prior to a trip to [facility] for vaccinations. She reported that she [...] Taxol x 6 cycles, completed 05/27/13. 6) Naranjito/carbo/cassandra x cycles for biopsy proven metastatic disease [...] No jaundice or rash. No petechiae. NEUROLOGIC: dimensional inspector II-XII are grossly intact. No focal motor weakness. ? ASSESSMENT/PLAN: (C56.1, C56.2) Cancer of both ovaries (HCC) (primary encounter diagnosis) (C78.7) Liver metastases (HCC) KPS is 90%. Biopsy-proven recurrence. [facility] refractory? -She is tolerating topotecan well thus [...] DO CNOVSP Observed: 08/30/2018 Status: COMPLETED Source: [place] 3:10 PM [facility] REPOSITORY Visit (SP) Office ([facility]) IVA CUEVA ([id number]) 1955 F Date Time Provider Department 08/30/18 [...] her PCP prior to a trip to [facility] for vaccinations. She reported that she [...] Taxol x 6 cycles, completed 05/27/13. 6) Naranjito/carbo/cassandra x cycles for biopsy proven metastatic disease [...] No jaundice or rash. No petechiae. NEUROLOGIC: dimensional inspector II-XII are grossly intact. No focal motor weakness. ? ASSESSMENT/PLAN: (C56.1, C56.2) Cancer of both ovaries (HCC) (primary encounter diagnosis) (C78.7) Liver metastases (HCC) KPS is 90%. Biopsy-proven recurrence. [facility] refractory? -She is tolerating topotecan well thus [...] Omar Gross DO Referring Provider: OMAR GROSS [[id number]] Allergies As of Date: 08/30/2018 Noted Allergy [...] Status: F Source: [place] 4:19 PM [facility] REPOSITORY TYPE CODE TESTS RESULT OUT OF [...] GAP 11 Performed By: #### L500.4050 #### [facility] [address] [place], [place], [address] CBC W/DIFF, AUTOMATED Collected: 08/26/2018 Status: F Source: [place] 4:19 PM [facility] REPOSITORY TYPE CODE TESTS RESULT OUT OF [...] Normal RARE Performed By: #### L100.0100 #### [facility] [address] [place], [address] CANCER ANTIGEN 125 Collected: 08/26/2018 Status: F Source: [place] 4:19 PM [facility] REPOSITORY TYPE CODE TESTS RESULT OUT OF RANGE REFERENCE UNITS LAB L3100.5000 0.0-38.1 U/mL High CA125 59.5 2303 Result Comment: Meghna ECLIA methodology Performed at: - [facility] [id number] Environmental Quality Analyst: Carlo Bass PhD, Phone: [phone] Performed By: #### L3100.5000 #### [facility] (refer to report for specific site) refer to report for address and phone number HOSP Observed: 08/12/2018 Status: COMPLETED Source: [place] 12:00 AM [facility] REPOSITORY Patient Update (HEMAWS) IVA CUEVA ([id number]) 1955 F Date Time Provider Department 08/12/18 OMAR GROSS HEMANAND During your visit today, we recorded the following information about you: Joshua Woods, RN, RN 08/12/2018 3:58 PM Signed Jacinta Tariq from [employer] prior auth called to verify pt's dose of Avastin. Pt's weight has changed and wanted to check what dose of Avastin pt should be getting. Jane checked with Dr Gross and pt should be receiving 15mg/kg (currently 88kg which would be a dose of 1320mg). Jacinta Tariq notified of this change and new order written and faxed to [employer] and Jane faxed new order to [facility] as well. Reference number is [id number] and Jacinta Tariq's fax number is [phone]. Reference number written on fax cover sheet [...] * FLUTICASONE 50 MCG/ACTUATION * Use 1 [place] in each nostril o* ERGOCALCIFEROL (VITAMIN D2) [...] 3:52 PM Status: Signed Jacinta Tariq from [facility] prior auth called to verify pt's dose of Avastin. Pt's weight has changed and wanted to check what dose of Avastin pt should be getting. Jane checked with Dr Gross and pt should be receiving 15mg/kg (currently 88kg which would be a dose of 1320mg). Jacinta Tariq notified of this change and new order written and faxed to [employer] [facility] and Jane faxed new order to [facility] as well. Reference number is [id number] and Jacinta Tariq's fax number is [phone]. Reference number written on fax cover sheet per her request. Encounter Status:Closed by JOSHUA WOODS on 08/12/18 TYPE AND SCREEN Collected: 08/05/2018 Status: F Source: [place] 12:22 PM [facility] REPOSITORY Order Comment: Reason for Type AND Screen/Red Cells: ANEMIA TYPE CODE TESTS RESULT OUT OF RANGE REFERENCE UNITS LAB B10.0800 O Normal BLOOD TYPE GEL NEGATIVE LAB B100.4000 Normal Antibody NEGATIVE Screen Performed By: #### B101.7450 #### [facility] [address] [place], [address] Collected: 08/05/2018 Status: F Source: [place] 12:22 PM [facility] REPOSITORY TYPE CODE TESTS RESULT OUT OF REFERENCE UNITS RANGE LAB U100.0000 12141514 TRANSFUSED PRODUCT: T AND S with Crossmatch, Red Cells COUNT: 1 Performed By: #### U100.0000 #### Non-[facility] - refer to report for specific site CBC W/DIFF, AUTOMATED Collected: 08/05/2018 Status: F Source: [place] 12:10 PM [facility] REPOSITORY TYPE CODE TESTS RESULT OUT OF [...] Lymph 0.97 Performed By: #### L100.0100 #### [facility] [address] [place], [address] COMPREHENSIVE METABOLIC Collected: 08/05/2018 Status: F Source: [place] [facility] 12:10 PM [facility] REPOSITORY TYPE CODE TESTS RESULT OUT OF [...] GAP 8 Performed By: #### L500.4050 #### [facility] [address] [place], [place], [id number] CBC W/DIFF, AUTOMATED Collected: 07/29/2018 Status: F Source: CAS[place] 1:57 PM [facility] REPOSITORY TYPE CODE TESTS RESULT OUT OF [...] ANISO 2+ Performed By: #### L100.0100 #### [facility] [address] [place], [place], [address] CBC W/DIFF, AUTOMATED Collected: 07/23/2018 Status: C Source: [place] 2:30 PM [facility] REPOSITORY TYPE CODE TESTS RESULT OUT OF [...] February jalyn Performed By: #### L100.0100 #### [facility] [place], [address] COMPREHENSIVE METABOLIC Collected: 07/23/2018 Status: F Source: [place] BENDER 2:30 PM [facility] REPOSITORY TYPE CODE TESTS RESULT OUT OF [...] GAP 7 Performed By: #### L500.4050 #### [facility] [address] [place], [address] CANCER ANTIGEN 125 Collected: 07/23/2018 Status: F Source: [place] 2:30 PM [facility] REPOSITORY TYPE CODE TESTS RESULT OUT OF RANGE REFERENCE UNITS LAB L3100.5000 0.0-38.1 U/mL High CA125 59.4 2303 Result Comment: Meghna ECLIA methodology Performed at: - [facility] [address] [id number] Environmental Quality Analyst: Carlo Bass PhD, Phone: [phone] Performed By: #### L3100.5000 #### [facility] (refer to report for specific site) refer to report for address and phone number CNPN Observed: 07/23/2018 Status: COMPLETED Source: [place] 12:00 AM [facility] REPOSITORY Telephone (PRISCILLA) IVA CUEVA ([id number]) 1955 F Date Time Provider Department 07/23/18 [...] dates. Please advise and call patient at [phone]. Omar Gross DO 07/23/2018 11:04 AM Signed Can someone call her to see how she'd like to change and to what dates? DO Jane Dominguez LPN 07/23/2018 12:39 PM Signed Attempted to contact patient. Voicemail box is full, unable to leave message. Jane James LPN Ania BrumfieldMARTELL alex, MARTELL 07/23/2018 1:52 PM Signed Sent message to pt. Via my chart. Awaiting response. Ania Luthersamantha Reed LPN Ania Vasquez MARTELL Reed LPN 07/23/2018 3:09 PM Signed Pt. Contacted [...] and then have 6 week span. DO Silvana Dominguezsavana Vasquez MARTELL Reed LPN 07/23/2018 4:48 PM Signed Pt. Notified, keep appts. Scheduled for next week. Pt. Voiced understanding. Ania Luthersamantha Reed LPN Allergies As of Date: 07/23/2018 [...] * FLUTICASONE 50 MCG/ACTUATION * Use 1 [place] in each nostril o* ERGOCALCIFEROL (VITAMIN D2) [...] 07/23/18 PROGRESS Observed: 07/04/2018 Status: COMPLETED Source: [place] 3:45 PM [facility] [place] REPOSITORY HNO ID: [id number] Author: Omar Gross Service: (none) Author Type: Physician Type: Progress Notes Filed: 07/04/2018 3:55 PM Note Text: Diagnosis: 1) Ovarian cancer. ? HPI: The patient is a 63 year old female who presented to her PCP prior to a trip to [facility] for vaccinations. She reported that she [...] Taxol x 6 cycles, completed 05/27/13. 6) Naranjito/carbo/cassandra x cycles for biopsy proven metastatic disease [...] No jaundice or rash. No petechiae. NEUROLOGIC: dimensional inspector II-XII are grossly intact. No focal motor weakness. ? ASSESSMENT/PLAN: (C56.1, C56.2) Cancer of both ovaries (HCC) (primary encounter diagnosis) (C78.7) Liver metastases (HCC) KPS is 90%. Biopsy-proven recurrence. [facility] refractory? -She is tolerating topotecan well thus [...] DO CNOVSP Observed: 07/04/2018 Status: COMPLETED Source: [place] 11:00 AM [facility] REPOSITORY Visit (SP) Office (PRISCILLA) IVA CUEVA ([id number]) 1955 F Date Time Provider Department 07/04/18 [...] her PCP prior to a trip to [facility] for vaccinations. She reported that she [...] Taxol x 6 cycles, completed 05/27/13. 6) Naranjito/carbo/cassandra x cycles for biopsy proven metastatic disease [...] No jaundice or rash. No petechiae. NEUROLOGIC: dimensional inspector II-XII are grossly intact. No focal motor weakness. ? ASSESSMENT/PLAN: (C56.1, C56.2) Cancer of both ovaries (HCC) (primary encounter diagnosis) (C78.7) Liver metastases (HCC) KPS is 90%. Biopsy-proven recurrence. [facility] refractory? -She is tolerating topotecan well thus [...] Omar Gross DO Referring Provider: OMAR GROSS [[id number]] Allergies As of Date: 07/04/2018 Noted Allergy [...] * FLUTICASONE 50 MCG/ACTUATION * Use 1 [place] in each nostril o* ERGOCALCIFEROL (VITAMIN D2) [...] Status: F Source: [place] BEND[place] 11:59 AM [facility] REPOSITORY TYPE CODE TESTS RESULT OUT OF [...] GAP 10 Performed By: #### L500.4050 #### [facility] [address] [facility]. [place], [place], [address] CBC W/DIFF, AUTOMATED Collected: 07/03/2018 Status: C Source: [place] 11:59 AM [facility] REPOSITORY TYPE CODE TESTS RESULT OUT OF [...] 1432 PATH REV previously reported as: February Performed By: #### L100.0100 #### [facility] [place], [address] CANCER ANTIGEN 125 Collected: 07/03/2018 Status: F Source: [place] 11:59 AM [facility] REPOSITORY TYPE CODE TESTS RESULT OUT OF RANGE REFERENCE UNITS LAB L3100.5000 0.0-38.1 U/mL High CA125 72.9 2303 Result Comment: Meghna ECLIA methodology Performed at: - [facility] [address] [id number] Environmental Quality Analyst: Carlo Bass PhD, Phone: [phone] Performed By: #### L3100.5000 #### [facility] (refer to report for specific site) refer to report for address and phone number CBC W/DIFF, AUTOMATED Collected: 06/26/2018 Status: F Source: [place] 10:05 AM [facility] REPOSITORY TYPE CODE TESTS RESULT OUT OF [...] Lymph 1.44 Performed By: #### L100.0100 #### [facility] [address] [place], [address] CNPN Observed: 06/18/2018 Status: COMPLETED Source: [place] 12:00 AM [facility] REPOSITORY Telephone (HEMANAND) IVA CUEVA ([id number]) 1955 F Date Time Provider Department 06/18/18 OMAR GROSS During your visit today, we recorded the following information about you: Bettina Orona Pss 06/18/2018 2:15 PM Signed Maday from [facility] Infusion called in - states that pt is supposed to start Aloxi infusion (?) today - they need an order from Dr. Gross that has his signature on it. Please fax signed order to [phone]. Jane James LPN 06/18/2018 2:28 PM Signed [...] DX code and signature. Please resend to [phone] Thank you Hari Avilez PSR Jane James LPN 06/19/2018 4:39 PM Signed Spoke with Lilly at [facility] infusion suite. She will call back [...] * FLUTICASONE 50 MCG/ACTUATION * Use 1 [place] in each nostril o* ERGOCALCIFEROL (VITAMIN D2) [...] 06/18/18 PROGRESS Observed: 06/13/2018 Status: COMPLETED Source: [place] 3:14 PM [facility] [place] REPOSITORY O ID: [id number] Author: Omar Gross Service: (none) Author Type: Physician Type: Progress Notes Filed: 06/14/2018 9:51 AM Note Text: Diagnosis: 1) Ovarian cancer. ? HPI: The patient is a 63 year old female who presented to her PCP prior to a trip to [facility] for vaccinations. She reported that she [...] Taxol x 6 cycles, completed 05/27/13. 6) Naranjito/carbo/cassandra x cycles for biopsy proven metastatic disease [...] changes. She's undergone several injections by her timber faller they have not helped. This is her [...] No jaundice or rash. No petechiae. NEUROLOGIC: dimensional inspector II-XII are grossly intact. No focal motor weakness. ? ASSESSMENT/PLAN: (C56.1, C56.2) Cancer of both ovaries (HCC) (primary encounter diagnosis) (C78.7) Liver metastases (HCC) KPS is 90%. Biopsy-proven recurrence. [facility] refractory? -She is tolerating topotecan well thus [...] DO CNOVSP Observed: 06/13/2018 Status: COMPLETED Source: [place] 3:00 PM [facility] REPOSITORY Visit (SP) Office (PRISCILLA) ANAYIVA Ronit ([id number]) 1955 F Date Time Provider Department 06/13/18 3:00 PM OMAR GROSS During your visit today, we recorded the following information about you: Temperature Pulse Blood pressure Weight 97.5 degrees 94/minute 137/75 86.9 kg Jane James LPN 06/13/2018 3:24 PM Signed Est patient. Discuss recent labs @[facility], next round of treatment. Jane Gross DO 06/14/2018 9:51 AM Signed Diagnosis: 1) Ovarian cancer. ? HPI: The patient is a 63 year old female who presented to her PCP prior to a trip to [facility] for vaccinations. She reported that she [...] Taxol x 6 cycles, completed 05/27/13. 6) Naranjito/carbo/cassandra x cycles for biopsy proven metastatic disease [...] changes. She's undergone several injections by her timber faller they have not helped. This is her [...] No jaundice or rash. No petechiae. NEUROLOGIC: dimensional inspector II-XII are grossly intact. No focal motor weakness. ? ASSESSMENT/PLAN: (C56.1, C56.2) Cancer of both ovaries (HCC) (primary encounter diagnosis) (C78.7) Liver metastases (HCC) KPS is 90%. Biopsy-proven recurrence. [facility] refractory? -She is tolerating topotecan well thus [...] Omar Gross DO Referring Provider: OMAR GROSS [[id number]] Allergies As of Date: 06/13/2018 Noted Allergy [...] * FLUTICASONE 50 MCG/ACTUATION * Use 1 [place] in each nostril o* ERGOCALCIFEROL (VITAMIN D2) [...] Status: Signed Est patient. Discuss recent labs @[facility], next round of treatment. Jane James MARTELL Encounter Status:Closed by OMRA GROSS DO on 06/14/18 CANCER ANTIGEN 125 Collected: 06/10/2018 Status: F Source: [place] 12:29 PM [facility] REPOSITORY TYPE CODE TESTS RESULT OUT OF RANGE REFERENCE UNITS LAB L3100.5000 0.0-38.1 U/mL High CA125 62.5 2303 Result Comment: Transaction Wireless ECLIA methodology Performed at: [facility] [address] [id number] Environmental Quality Analyst: Carlo Bass PhD, Phone: [phone] Performed By: #### L3100.5000 #### [facility] (refer to report for specific site) refer to report for address and phone number CBC W/DIFF, AUTOMATED Collected: 06/10/2018 Status: F Source: [place] 12:25 PM [facility] REPOSITORY TYPE CODE TESTS RESULT OUT OF [...] Lymph 1.43 Performed By: #### L100.0100 #### [facility] [address] [place], [place], [address] COMPREHENSIVE METABOLIC Collected: 06/10/2018 Status: F Source: [facility] 12:25 PM [facility] REPOSITORY TYPE CODE TESTS RESULT OUT OF [...] GAP 11 Performed By: #### L500.4050 #### [facility] [place], [address] CBC W/DIFF, AUTOMATED Collected: 05/18/2018 Status: F Source: [place] 12:51 PM [facility] REPOSITORY TYPE CODE TESTS RESULT OUT OF [...] Lymph 1.60 Performed By: #### L100.0100 #### [facility] [address] [place], [address] COMPREHENSIVE METABOLIC Collected: 05/18/2018 Status: F Source: [facility] 12:51 PM [facility] REPOSITORY TYPE CODE TESTS RESULT OUT OF [...] GAP 4 Performed By: #### L500.4050 #### [facility] [address] [place], [address] CT ABD/PEL W IVCON Observed: 04/29/2018 Status: F Source: [place] 2:46 PM [facility] REPOSITORY * * *Final Report* * * DATE OF EXAM: Apr 29 2018 2:46PM [facility] 0530 - CT ABD/PEL W IVCON [...] new adenopathy is seen. 3. Fatty liver Partridge Farmer: PSCJose Guadalupe Transcribe Date/Time: Apr 30 2018 4:02P Dictated by : ANTHONY DIAZ DO This examination was interpreted and the report reviewed and electronically signed by: ANTHONY DIAZ DO on Apr 30 2018 4:35PM EST [id number] Observed: 04/29/2018 Status: COMPLETED Source: [place] 2:34 PM [facility] REPOSITORY O ID: [id number] Author: Ofelia Landeros Ct Service: (none) Author [...] ISTAT BMP Collected: 04/29/2018 Status: F Source: [place] 2:00 PM [facility] REPOSITORY TYPE CODE TESTS RESULT [...] + CBC Collected: 04/29/2018 Status: F Source: [place] 2:00 PM [facility] REPOSITORY TYPE CODE TESTS RESULT OUT OF REFERENCE UNITS RANGE LAB WWBC 3.70-11.00 k/uL Casa WBC 4.60 LAB WRBC 3.90-5.20 m/uL Low [place] RBC 3.30 LAB WHGB 11.5-15.5 g/dL Low [place] Hemoglobin 10.4 LAB WHCT 36.0-46.0 % Low [place] Hematocrit 32.4 LAB WMCV 80.0-100.0 fL [place] MCV 98.2 LAB WMCH 26.0-34.0 pg Milnor MCH 31.5 LAB WMCHC 30.5-36.0 g/dL [place] MCHC 32.1 LAB WRDW 11.5-15.0 % [place] High RDW 16.8 LAB WPLT 150-400 k/uL Milnor High Platelet Cnt 597 LAB WMPV 9.0-12.7 fL [place] MPV 9.9 Result Comment: Test performed at: [facility] Jani Larry [facility] [address] [place] [address]. LAB ABGRAN 1.45-7.50 k/uL Absol Gran 2.53 Count [place] CREATININE Collected: 04/29/2018 Status: F Source: [place] 1:22 PM [facility] REPOSITORY TYPE CODE TESTS RESULT OUT OF REFERENCE UNITS RANGE LAB WCRET 0.7-1.4 mg/dL Casa Creatinine 0.9 CNPN Observed: 04/24/2018 Status: COMPLETED Source: [place] 12:00 AM [facility] REPOSITORY Telephone (HEMAWS) IVA CUEVA ([id number]) 1955 F Date Time Provider Department 04/24/18 OMAR GROSS During your visit today, we recorded the following information about you: Aruna Nielson 04/24/2018 11:47 AM Signed Elli from [facility] called asking for information about the patients ordered CT scan. The patient decided that he would like to have the CT at [facility] and the order needs to be sent over. Please call Elli back at [phone]. Jane James LPN 04/24/2018 11:50 AM Signed Patient is here. Since the CT scan has already been precerted for [facility], patient has decided to have the [...] since she's had all previous CTs at [facility], we'll need to get a CD of her most recent CTs from there sent her to get uploaded. DO Ashleigh Dominguez PSR 04/26/2018 9:05 AM Signed Left voicemail for patient to return call re: below and to arrange for documentation from [facility] results. Ashleigh Gandara PSR Daiana Raglandjasen, PSR 04/26/2018 11:54 AM Signed Patient returned call and is aware of message below Jane James LPN 04/26/2018 12:21 PM Signed Disc requested from [facility]. Jane James LPN Allergies As of [...] * FLUTICASONE 50 MCG/ACTUATION * Use 1 [place] in each nostril o* ERGOCALCIFEROL (VITAMIN D2) [...] DOWNTIME REPORT Observed: 04/18/2018 Status: F Source: [place] 12:18 PM [facility] REPOSITORY [facility] Medical Records Department [address] [place] [address] Downtime Report MR#: [id number] Acct: [id number] Name: IVA CUEVA Rep #: [id number] : 1955 63 From: Kamron Oh PCP: Peter Deras MD Status: REG CLI This patient was seen during an EMR downtime April 01, 2018 - April 08, 2018. This patient may have a combination of paper and electronic documentation or all paper documentation. All documentation is viewable within the e-chart portion of [facility] for each patient visit. DOWNTIME REPORT Observed: 04/18/2018 Status: F Source: [place] 12:18 PM [facility] Medical Records Department [address] [place] [address] Downtime Report MR#: [id number] Acct: [id number] Name: IVA CUEVA Rep #: [id number] : 1955 63 From: Kamron Oh PCP: Peter Deras MD Status: REG CLI This patient was seen during an EMR downtime April 01, 2018 - April 08, 2018. This patient may have a combination of paper and electronic documentation or all paper documentation. All documentation is viewable within the e-chart portion of [facility] for each patient visit. DOWNTIME REPORT Observed: 04/18/2018 Status: F Source: [place] 12:17 PM [facility] Medical Records Department [address] [place] [address] Downtime Report MR#: [id number] Acct: [id number] Name: GREGORIO CUEVAShu Cottrell Rep #: [id number] : 1955 63 From: Kamron Oh PCP: Peter Deras MD Status: REG CLI This patient was seen during an EMR downtime April 01, 2018 - April 08, 2018. This patient may have a combination of paper and electronic documentation or all paper documentation. All documentation is viewable within the e-chart portion of [facility] for each patient visit. DOWNTIME REPORT Observed: 04/18/2018 Status: F Source: [place] 12:17 PM [facility] Medical Records Department [address] [place] [address] Downtime Report MR#: [id number] Acct: [id number] Name: GREGORIO CUEVAShu Cottrell Rep #: [id number] : 1955 63 From: Kamron Oh PCP: Peter Deras MD Status: REG CLI This patient was seen during an EMR downtime April 01, 2018 - April 08, 2018. This patient may have a combination of paper and electronic documentation or all paper documentation. All documentation is viewable within the e-chart portion of [facility] for each patient visit. DOWNTIME REPORT Observed: 04/18/2018 Status: F Source: [place] 12:16 PM [facility] REPOSITORY [facility] Medical Records Department [address] [place] [address] Downtime Report MR#: [id number] Acct: [id number] Name: IVA CUEVA Rep #: [id number] : 1955 63 From: Kamron Oh PCP: Peter Deras MD Status: DEP CLI This patient was seen during an EMR downtime April 01, 2018 - April 08, 2018. This patient may have a combination of paper and electronic documentation or all paper documentation. All documentation is viewable within the e-chart portion of [facility] for each patient visit. PROGRESS Observed: 04/18/2018 Status: COMPLETED Source: [place] 12:03 PM [facility] REPOSITORY HNO ID: [id number] Author: Terracne Renee Service: (none) Author Type: Physician Type: Progress Notes Filed: 04/19/2018 8:10 AM Note Text: Diagnosis: 1) Ovarian cancer. ? HPI: The patient is a 63 year old female who presented to her PCP prior to a trip to [facility] for vaccinations. She reported that she [...] Taxol x 6 cycles, completed 05/27/13. 6) Naranjito/carbo/cassandra x cycles for biopsy proven metastatic disease [...] will be going on a cruise to [place] the second week of April. She saw [...] No jaundice or rash. No petechiae. NEUROLOGIC: dimensional inspector II-XII are grossly intact. No focal motor weakness. ? LABS: review by me and the patient today. ASSESSMENT/PLAN: (C56.1, C56.2) Cancer of both ovaries (HCC) (primary encounter diagnosis) (C78.7) Liver metastases (HCC) KPS is 90%. Biopsy-proven recurrence. [facility] refractory.? -She is tolerating topotecan well thus [...] Jo CNOVSP Observed: 04/18/2018 Status: COMPLETED Source: [place] 11:30 AM [facility] REPOSITORY Visit (SP) Office (HEMANAND) IVA CUEVA ([id number]) 1955 F Date Time Provider Department 04/18/18 11:30 AM TERRANCE RENEE During your visit today, we recorded the following information about you: Temperature Pulse Blood pressure Weight 97.5 degrees 79/minute 177/80 86.6 kg Jane James LPN 04/18/2018 11:50 AM Signed Est patient. Labs at [facility]. Jane Renee MD 04/19/2018 8:10 AM Signed Diagnosis: 1) Ovarian cancer. ? HPI: The patient is a 63 year old female who presented to her PCP prior to a trip to [facility] for vaccinations. She reported that she [...] Taxol x 6 cycles, completed 05/27/13. 6) Naranjito/carbo/cassandra x cycles for biopsy proven metastatic disease [...] will be going on a cruise to [place] the second week of April. She saw [...] No jaundice or rash. No petechiae. NEUROLOGIC: dimensional inspector II-XII are grossly intact. No focal motor weakness. ? LABS: review by me and the patient today. ASSESSMENT/PLAN: (C56.1, C56.2) Cancer of both ovaries (HCC) (primary encounter diagnosis) (C78.7) Liver metastases (HCC) KPS is 90%. Biopsy-proven recurrence. [facility] refractory.? -She is tolerating topotecan well thus [...] Dr. Peter Jo Referring Provider: OMAR GROSS [[id number]] Allergies As of Date: 04/18/2018 Noted Allergy [...] of Service: EST PATIENT VISIT LEVEL 4 [[id number]] Disposition: Return in about 1 week (around [...] * FLUTICASONE 50 MCG/ACTUATION * Use 1 [place] in each nostril o* ERGOCALCIFEROL (VITAMIN D2) [...] FOR* Visit Notes: >> Jane James LPN [facility] Apr 18, 2018 11:36 AM Status: Signed Est patient. Labs at [facility]. Jane James LPN Encounter Status:Closed by TERRANCE RENEE MD on 04/19/18 CNCO Observed: 04/18/2018 Status: COMPLETED Source: [place] 12:00 AM [facility] REPOS[facility] Letter Text [address] [address] Catie Jo M.D. algorithm developer Section of Gynecologic Oncology [employer] [facility] [place] Office: [email or web address] April 18, 2018 RE: Iva Cueva DOS: 04/12/[address] Bruno This letter is in follow up for your patient, Iva Cueva, who was recently seen in my office. Please see my completed note from that visit in EPIC. If I can be of any further assistance, or if you have any questions, please contact my office. Sincerely, Catie Jo M.D. CMM/ CC: DO Peter Salazar MD CNPN Observed: 04/18/2018 Status: COMPLETED Source: [place] 12:00 AM [facility] REPOSITORY Telephone (HEMAWS) IVA CUEVA ([id number]) 1955 F Date Time Provider Department 04/18/18 [...] patient has CT and Labs done at [facility]. Hari Avilez PSR 04/18/2018 2:24 PM [...] week. Her CT scan is scheduled at [facility] for 04/26/18 Mar Gross DO 04/20/2018 10:10 AM Signed We'll schedule follow up based on upcoming CT results. DO Lora Dominguez 04/22/2018 10:37 AM Signed Spoke with patient and informed her our office will be contacting her after CT @ [facility] on 04/26. Allergies As of Date: [...] * FLUTICASONE 50 MCG/ACTUATION * Use 1 [place] in each nostril o* ERGOCALCIFEROL (VITAMIN D2) [...] W/DIFF, AUTOMATED Collected: 04/16/2018 Status: C Source: [place] 10:19 AM [facility] REPOSITORY Order Comment: CRITICAL VALUE VERIFIED. CALLED TO LORIE AT [facility] 04/16/18 Ran7 Tiki Tran. RESULTS READ BACK [...] February jalyn Performed By: #### L100.0100 #### [facility] [address] [place], [place], [address] COMPREHENSIVE METABOLIC Collected: 04/16/2018 Status: F Source: [place] 10:19 AM [facility] REPOSITORY TYPE CODE TESTS RESULT OUT OF [...] GAP 7 Performed By: #### L500.4050 #### [facility] [address] [place], [place], [address] CANCER ANTIGEN 125 Collected: 04/16/2018 Status: F Source: [place] 10:19 AM [facility] REPOSITORY TYPE CODE TESTS RESULT OUT OF RANGE REFERENCE UNITS LAB L3100.5000 0.0-38.1 U/mL High CA125 48.1 2303 Result Comment: Meghna ECLIA methodology Performed at: CB - [facility] [address] [id number] Environmental Quality Analyst: Carlo Bass PhD, Phone: [phone] Performed By: #### L3100.5000 #### [facility] (refer to report for specific site) refer to report for address and phone number CNOVSP Observed: 04/12/2018 Status: COMPLETED Source: [place] 3:00 PM [facility] REPOSITORY Visit (SP) Office (REY) IVA CUEVA ([id number]) 1955 F Date Time Provider Department 04/12/18 3:00 PM CATIE JO During your visit today, we recorded the following information about you: Temperature Pulse Respiration Blood pressure 97.4 degrees 81/minute 18/minute 154/77 Weight 85.4 kg Catie Jo MD 04/12/2018 4:56 PM Signed DATE OF SERVICE: 04/12/2018 PROBLEM: Iva Anay is here for follow up of ovarian [...] 7 CA 125 (U/mL) - done at [facility] Date Value 01/30/2018 25 08/06/2017 102.9 [...] She is alert, oriented, pleasant and cooperative. Boom Cat Operator for exam: n/a ASSESSMENT: 1. 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 PLAN: CA125 increasing again If rises after this cycle consider CT scans sooner than planned. If progressing, we reviewed options and definitions. We discussed that she is, by definition, petersburg resistant with a 6 month cut-off. However, she had a CR to carboplatin/ Taxol and was right at 6 months for recurrence Given this I would favor another try with carboplatin/ Taxol and consider maintenance therapy with a PARP inhibitor (Olapaprib or Nirapirib), in pts who respond to petersburg-based therapy. We discussed differences in PFS based on gene status, but could benefit even if not HRD positive. Consider repeat CT guided biopsy for tissue confirmation and can send some of the biopsy for BioNitrogen or [employer] One testing. Would make sure [...] note were sent to: Marcy Bruno MD [address] [place] [address] CC: DO Peter Salazar MD (PCP) Referring Provider: CATIE JO [[id number]] Allergies As of Date: 04/12/2018 Noted Allergy Reaction CODEINE 05/03/2007 5 - Intolerance PERCOCET (OXYCODONE-ACETAMINOPHEN)06/29/2015 9 - Itching Seasonal [Other] 06/05/2007 ULTRAM (TRAMADOL HCL) 01/08/2013 9 - Itching VICODIN (HYDROCODONE-ACETAMINOPHE*08/26/2007 9 - Itching Date Reviewed: 04/12/2018 Reviewed by: Saritha Corrales (Medical Affairs Specialist) MARTELL Del Cid - Fully Assessed Reason [...] * FLUTICASONE 50 MCG/ACTUATION * Use 1 [place] in each nostril o* ERGOCALCIFEROL (VITAMIN D2) [...] 04/12/18 PROGRESS Observed: 04/08/2018 Status: COMPLETED Source: [place] 12:25 AM [facility] REPOSITORY O ID: [id number] Author: Catie Jo Service: (none) Author Type: [...] 7 CA 125 (U/mL) - done at [facility] Date Value 01/30/2018 25 08/06/2017 102.9 [...] She is alert, oriented, pleasant and cooperative. Boom Cat Operator for exam: n/a ASSESSMENT: 1. 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 PLAN: CA125 increasing again If rises after this cycle consider CT scans sooner than planned. If progressing, we reviewed options and definitions. We discussed that she is, by definition, petersburg resistant with a 6 month cut- off. However, she had a CR to carboplatin/ Taxol and was right at 6 months for recurrence Given this I would favor another try with carboplatin/ Taxol and consider maintenance therapy with a PARP inhibitor (Olapaprib or Nirapirib), in pts who respond to petersburg-based therapy. We discussed differences in PFS based on gene status, but could benefit even if not HRD positive. Consider repeat CT guided biopsy for tissue confirmation and can send some of the biopsy for BioNitrogen or [employer] testing. Would make sure that testing is [...] note were sent to: Marcy Bruno MD [address] [place] [address] CC: DO Peter Salazar MD (PCP) CNOVSP Observed: 03/29/2018 Status: COMPLETED Source: [place] 10:40 AM [facility] REPOSITORY Visit (SP) Office (PRISCILLA) IVA CUEVA ([id number]) 1955 F Date Time Provider Department 03/29/18 [...] her PCP prior to a trip to [facility] for vaccinations. She reported that she [...] Taxol x 6 cycles, completed 05/27/13. 6) Naranjito/carbo/cassandra x cycles for biopsy proven metastatic disease [...] No jaundice or rash. No petechiae. NEUROLOGIC: dimensional inspector II-XII are grossly intact. No focal motor weakness. ASSESSMENT/PLAN: (C56.1, C56.2) Cancer of both ovaries (HCC) (primary encounter diagnosis) (C78.7) Liver metastases (HCC) KPS is 90%. Biopsy-proven recurrence. [facility] [place] refractory. -She is tolerating topotecan well thus [...] Omar Gross DO Referring Provider: OMAR GROSS [[id number]] Allergies As of Date: 03/29/2018 Noted Allergy [...] * FLUTICASONE 50 MCG/ACTUATION * Use 1 [place] in each nostril o* ERGOCALCIFEROL (VITAMIN D2) [...] 03/29/18 PROGRESS Observed: 03/29/2018 Status: COMPLETED Source: [place] 9:00 AM [facility] REPOSITORY O ID: [id number] Author: Omar Gross Service: (none) Author Type: Physician Type: Progress Notes Filed: 03/29/2018 12:11 PM Note Text: Diagnosis: 1) Ovarian cancer. HPI: The patient is a 63 year old female who presented to her PCP prior to a trip to [facility] for vaccinations. She reported that she [...] Taxol x 6 cycles, completed 05/27/13. 6) Naranjito/carbo/cassandra x cycles for biopsy proven metastatic disease [...] No jaundice or rash. No petechiae. NEUROLOGIC: dimensional inspector II-XII are grossly intact. No focal motor weakness. ASSESSMENT/PLAN: (C56.1, C56.2) Cancer of both ovaries (HCC) (primary encounter diagnosis) (C78.7) Liver metastases (HCC) KPS is 90%. Biopsy-proven recurrence. [facility] refractory. -She is tolerating topotecan well thus [...] of verapamil at bedtime. Omar Gross DO CBC W/DIFF, AUTOMATED Collected: 03/27/2018 Status: F Source: [place] 1:35 PM [facility] REPOSITORY TYPE CODE TESTS RESULT OUT OF [...] Lymph 1.50 Performed By: #### L100.0100 #### [facility] [address] [place], [address] COMPREHENSIVE METABOLIC Collected: 03/27/2018 Status: F Source: [place] B[place] 1:35 PM [facility] REPOSITORY TYPE CODE TESTS RESULT OUT OF [...] GAP 10 Performed By: #### L500.4050 #### [facility] [address] [place], [place], [address] CANCER ANTIGEN 125 Collected: 03/27/2018 Status: F Source: [place] 1:35 PM [facility] REPOSITORY TYPE CODE TESTS RESULT OUT OF RANGE REFERENCE UNITS LAB L3100.5000 0.0-38.1 U/mL High CA125 49.6 2303 Result Comment: Meghna ECLIA methodology Performed at: - [facility] [address] [id number] Environmental Quality Analyst: Carlo Bass PhD, Phone: [phone] Performed By: #### L3100.5000 #### [facility] (refer to report for specific site) refer to report for address and phone number CBC-COMPLETE BLOOD CNT Collected: 03/04/2018 Status: F Source: [place] NO DIFF 1:45 PM [facility] REPOSITORY TYPE CODE TESTS RESULT OUT OF [...] MPV 8.9 Performed By: #### L100.0500 #### [facility] [address] [place], [place], [address] PROGRESS Observed: 02/27/2018 Status: COMPLETED Source: [place] 11:33 AM [facility] REPOSITORY HNO ID: [id number] Author: Omar Gross Service: (none) Author Type: Physician Type: Progress Notes Filed: 02/27/2018 12:24 PM Note Text: Diagnosis: 1) Ovarian cancer. HPI: The patient is a 63 year old female who presented to her PCP prior to a trip to [facility] for vaccinations. She reported that she [...] Taxol x 6 cycles, completed 05/27/13. 6) Naranjito/carbo/cassandra x cycles for biopsy proven metastatic disease [...] No jaundice or rash. No petechiae. NEUROLOGIC: dimensional inspector II-XII are grossly intact. No focal motor weakness. ASSESSMENT/PLAN: 1) Ovarian cancer. KPS is 90%. Biopsy-proven recurrence. [facility] refractory. -She is tolerating topotecan well thus [...] DO CNOVSP Observed: 02/27/2018 Status: COMPLETED Source: [place] 11:30 AM [facility] REPOSITORY Visit (SP) Office (PRISCILLA) IVA CUEVA ([id number]) 1955 F Date Time Provider Department 02/27/18 11:30 AM OMAR GROSS During your visit today, we recorded the following information about you: Temperature Pulse Blood pressure Weight 98 degrees 89/minute 127/70 88.5 kg Omar Gross DO 02/27/2018 12:24 PM Signed Diagnosis: 1) Ovarian cancer. HPI: The patient is a 63 year old female who presented to her PCP prior to a trip to [facility] for vaccinations. She reported that she [...] Taxol x 6 cycles, completed 05/27/13. 6) Naranjito/carbo/cassandra x cycles for biopsy proven metastatic disease [...] No jaundice or rash. No petechiae. NEUROLOGIC: dimensional inspector II-XII are grossly intact. No focal motor weakness. ASSESSMENT/PLAN: 1) Ovarian cancer. KPS is 90%. Biopsy-proven recurrence. [facility] refractory. -She is tolerating topotecan well thus [...] Continue to monitor blood pressure. DO Ania Dominguez, MARTELL, MANAGER MEDICAL DEVICE 02/27/2018 12:01 PM Signed Est pt. Discuss recent labs, tx tomorrow Ania Reed LPN Referring Provider: OMAR GROSS [[id number]] Allergies As of Date: 02/27/2018 Noted Allergy [...] * FLUTICASONE 50 MCG/ACTUATION * Use 1 [place] in each nostril o* ERGOCALCIFEROL (VITAMIN D2) [...] Encounter Status:Closed by OMAR GROSS DO on 5/2/18 CBC W/DIFF, AUTOMATED Collected: 02/27/2018 Status: F Source: [place] 9:44 AM [facility] REPOSITORY TYPE CODE TESTS RESULT OUT OF [...] Lymph 1.43 Performed By: #### L100.0100 #### [facility] [address] [place], [address] COMPREHENSIVE METABOLIC Collected: 02/27/2018 Status: F Source: [place] [facility] 9:44 AM [facility] REPOSITORY TYPE CODE TESTS RESULT OUT OF [...] GAP 7 Performed By: #### L500.4050 #### [facility] [address] [place], [place], [address] CANCER ANTIGEN 125 Collected: 02/27/2018 Status: F Source: [place] 9:44 AM [facility] REPOSITORY TYPE CODE TESTS RESULT OUT OF RANGE REFERENCE UNITS LAB L3100.5000 0.0-38.1 U/mL Normal CA125 27.9 2303 Result Comment: Meghna ECLIA methodology Performed at: - [facility] [address], [place], [place] [id number] Environmental Quality Analyst: Carlo Bass PhD, Phone: [phone] Performed By: #### L3100.5000 #### [facility] (refer to report for specific site) refer to report for address and phone number TYPE AND SCREEN Collected: 02/12/2018 Status: F Source: [place] 12:26 PM [facility] REPOSITORY Order Comment: CMV NEG?* N Give When? [id number] Irradiated? N Leukodepleted? Y Reason for Type AND Screen/Red Cells: ANEMIA TYPE CODE TESTS RESULT OUT OF RANGE REFERENCE UNITS LAB B10.0800 O Normal BLOOD TYPE GEL NEGATIVE LAB B100.4000 Normal Antibody NEGATIVE Screen Performed By: #### B101.7450 #### [facility] [address] [place], [address] Collected: 02/12/2018 Status: F Source: [place] 12:26 PM [facility] REPOSITORY TYPE CODE TESTS RESULT OUT OF REFERENCE UNITS RANGE LAB U100.0000 [id number] TRANSFUSED PRODUCT: T AND S with Crossmatch, Red Cells COUNT: 2 Performed By: #### U100.0000 #### [facility] - refer to report for specific site CBC W/DIFF, AUTOMATED Collected: 02/11/2018 Status: C Source: [place] 11:55 AM [facility] REPOSITORY TYPE CODE TESTS RESULT OUT OF [...] Iman gunderson Performed By: #### L100.0100 #### [facility] [address] [place], [address] CBC-COMPLETE BLOOD CNT Collected: 02/04/2018 Status: F Source: [place] NO DIFF 1:45 PM [facility] REPOSITORY TYPE CODE TESTS RESULT OUT OF [...] MPV 9.4 Performed By: #### L100.0500 #### [facility] [address] [place], [place], [address] CBC W/DIFF, AUTOMATED Collected: 01/30/2018 Status: C Source: [place] 12:37 PM [facility] REPOSITORY TYPE CODE TESTS RESULT OUT OF [...] Iman gunderson Performed By: #### L100.0100 #### [facility] [place], [address] COMPREHENSIVE METABOLIC Collected: 01/30/2018 Status: F Source: [place] [facility] 12:37 PM [facility] REPOSITORY TYPE CODE TESTS RESULT OUT OF [...] GAP 7 Performed By: #### L500.4050 #### [facility] [address] [place], [place], [address] CANCER ANTIGEN 125 Collected: 01/30/2018 Status: F Source: [place] 12:37 PM [facility] REPOSITORY TYPE CODE TESTS RESULT OUT OF RANGE REFERENCE UNITS LAB L3100.5000 0.0-38.1 U/mL Normal CA125 25.0 2303 Result Comment: [employer] ECLIA methodology Performed at: [facility] [address] [id number] Environmental Quality Analyst: Carlo Bass PhD, Phone: [phone] Performed By: #### L3100.5000 #### [facility] (refer to report for specific site) refer to report for address and phone number CBC W/DIFF, AUTOMATED Collected: 01/14/2018 Status: F Source: [place] 11:40 AM [facility] REPOSITORY TYPE CODE TESTS RESULT OUT OF [...] Lymph 1.47 Performed By: #### L100.0100 #### [facility] [address] [place], [address] PROGRESS Observed: 01/09/2018 Status: COMPLETED Source: [place] 4:02 PM [facility] REPOSITORY HNO ID: [id number] Author: Omar Gross Service: (none) Author Type: Physician Type: Progress Notes Filed: 01/11/2018 9:47 AM Note Text: Diagnosis: 1) Ovarian cancer. HPI: The patient is a 62 year old female who presented to her PCP prior to a trip to [facility] for vaccinations. She reported that she [...] Taxol x 6 cycles, completed 05/27/13. 6) Naranjito/carbo/cassandra x cycles for biopsy proven metastatic disease [...] No jaundice or rash. No petechiae. NEUROLOGIC: dimensional inspector II-XII are grossly intact. No focal motor weakness. ASSESSMENT/PLAN: 1) Ovarian cancer. KPS is 90%. Biopsy-proven recurrence. [facility] refractory. -She is tolerating topotecan well thus far. -CA125 trending down. -Symptomatic anemia requiring transfusion. Plan: -Cycle #4 topotecan on Sunday 01/14 pending CBC results that day. -Decrease Neupogen to 7 days post cycle. -CT C/A/P pending CA125 trend. -Continue olanzapine. -Somatic BRCA mutation analysis negative. Omar Gross DO CNOVSP Observed: 01/09/2018 Status: COMPLETED Source: [place] 4:00 PM [facility] REPOSITORY Visit (SP) Office (PRISCILLA) IVA CUEVA ([id number]) 1955 F Date Time Provider Department 01/09/18 4:00 PM OMAR GROSS During your visit today, we recorded the following information about you: Temperature Pulse Blood pressure Weight 97.9 degrees 86/minute 127/78 87.3 kg Jane James LPN 01/09/2018 4:18 PM Signed Est patient. Discuss recent labs. Jane James MARTELL Omar Gross DO 01/11/2018 9:47 AM Signed Diagnosis: 1) Ovarian cancer. HPI: The patient is a 62 year old female who presented to her PCP prior to a trip to [facility] for vaccinations. She reported that she [...] Taxol x 6 cycles, completed 05/27/13. 6) Naranjito/carbo/cassandra x cycles for biopsy proven metastatic disease [...] No jaundice or rash. No petechiae. NEUROLOGIC: dimensional inspector II-XII are grossly intact. No focal motor weakness. ASSESSMENT/PLAN: 1) Ovarian cancer. KPS is 90%. Biopsy-proven recurrence. [facility] refractory. -She is tolerating topotecan well thus far. -CA125 trending down. -Symptomatic anemia requiring transfusion. Plan: -Cycle #4 topotecan on Sunday 01/14 pending CBC results that day. -Decrease Neupogen to 7 days post cycle. -CT C/A/P pending CA125 trend. -Continue olanzapine. -Somatic BRCA mutation analysis negative. Omar Gross DO Referring Provider: OMAR GROSS [[id number]] Allergies As of Date: 01/09/2018 Noted Allergy [...] * FLUTICASONE 50 MCG/ACTUATION * Use 1 [place] in each nostril o* ERGOCALCIFEROL (VITAMIN D2) [...] FOR* Visit Notes: >> Jane James LPN SunJan 09, 2018 3:59 PM Status: Signed Est patient. Discuss recent labs. Jane James LPN Encounter Status:Closed by OMAR GROSS DO on 01/11/18 CBC W/DIFF, AUTOMATED Collected: 01/09/2018 Status: C Source: [facility] TYPE CODE TESTS RESULT OUT OF RANGE REFERENCE UNITS LAB L100.1000 4.4-11.0 K/mm3 High alert WBC 34.6 Result Comment: CRITICAL VALUE VERIFIED. CALLED TO JANE AT 'S OFFICE 01/09/18 [address] [place] [place]. RESULTS READ BACK BY SAME . LAB [...] February jalyn Performed By: #### L100.0100 #### [facility] [address] [place], [place], [address] COMPREHENSIVE METABOLIC Collected: 01/09/2018 Status: F Source: [place] [facility] 10:12 AM [facility] REPOSITORY TYPE CODE TESTS RESULT OUT OF [...] GAP 6 Performed By: #### L500.4050 #### [facility] [address] [place], [address] CANCER ANTIGEN 125 Collected: 01/09/2018 Status: F Source: [place] 10:12 AM [facility] REPOSITORY TYPE CODE TESTS RESULT OUT OF RANGE REFERENCE UNITS LAB L3100.5000 0.0-38.1 U/mL Normal CA125 25.2 2303 Result Comment: Transaction [employer] ECLIA methodology Performed at: [facility] [id number] Environmental Quality Analyst: Carlo Bass PhD, Phone: [phone] Performed By: #### L3100.5000 #### [facility] (refer to report for specific site) refer to report for address and phone number TYPE AND SCREEN Collected: 01/02/2018 Status: F Source: [place] 4:21 PM [facility] REPOSITORY Order Comment: CMV NEG?* N Give When? When Ready Irradiated? N Leukodepleted? Y Reason for Type AND Screen/Red Cells: ANEMIA TYPE CODE TESTS RESULT OUT OF RANGE REFERENCE UNITS LAB B10.0800 O Normal BLOOD TYPE GEL NEGATIVE LAB B100.4000 Normal Antibody NEGATIVE Screen Performed By: #### B101.7450 #### [facility] [address] [place], [address] RC Collected: 01/02/2018 Status: F Source: [place] 4:21 PM [facility] REPOSITORY TYPE CODE TESTS RESULT OUT OF REFERENCE UNITS RANGE LAB U100.0000 [id number] TRANSFUSED PRODUCT: T AND S with Crossmatch, Red Cells COUNT: 2 Performed By: #### U100.0000 #### [facility] - refer to report for specific site CBC W/DIFF, AUTOMATED Collected: 01/02/2018 Status: F Source: [place] 11:27 AM [facility] REPOSITORY TYPE CODE TESTS RESULT OUT OF [...] Normal RARE Performed By: #### L100.0100 #### [facility] [address] [place], [address] CBC W/DIFF, AUTOMATED Collected: 12/24/2017 Status: C Source: [place] 1:00 PM [facility] REPOSITORY TYPE CODE TESTS RESULT OUT OF [...] February jalyn Performed By: #### L100.0100 #### [facility] [address] [place], [address] CNOVSP Observed: 12/19/2017 Status: COMPLETED Source: [place] 11:50 AM [facility] REPOS[facility] Visit (SP) Office (HEMANAND) СВЕТЛАНАIVA CARDENAS ([id number]) 1955 F Date Time Provider Department 12/19/17 11:50 AM OMAR GROSS During your visit today, we recorded the following information about you: Temperature Pulse Blood pressure Weight 98 degrees 106/minute 131/83 87.1 kg Omar Gross DO 12/19/2017 12:39 PM Signed Diagnosis: 1) Ovarian cancer. HPI: The patient is a 62 year old female who presented to her PCP prior to a trip to [facility] for vaccinations. She reported that she [...] Taxol x 6 cycles, completed 05/27/13. 6) Naranjito/carbo/cassandra x cycles for biopsy proven metastatic disease [...] No jaundice or rash. No petechiae. NEUROLOGIC: dimensional inspector II-XII are grossly intact. No focal motor weakness. ASSESSMENT/PLAN: 1) Ovarian cancer. KPS is 90%. Biopsy-proven recurrence. [facility] refractory. -She is tolerating topotecan well thus [...] -Somatic BRCA mutation analysis pending. DO Ania Dmoinguez LPN, LPN 12/19/2017 12:11 PM Signed Est pt. Discuss recent lab results Ania Reed LPN Referring Provider: OMAR GROSS [[id number]] Allergies As of Date: 12/19/2017 Noted Allergy [...] * FLUTICASONE 50 MCG/ACTUATION * Use 1 [place] in each nostril o* ERGOCALCIFEROL (VITAMIN D2) [...] FOR* Visit Notes: >> Ania Vasquez (Martell) OctavianoabiMARTELL SunDec 19, 2017 11:56 AM Status: Signed Est pt. Discuss recent lab results Ania Vasquez MARTELL Reed Encounter Status:Closed by OMAR GROSS DO on 12/19/17 PROGRESS Observed: 12/19/2017 Status: COMPLETED Source: [place] 11:44 AM [facility] REPOSITORY O ID: [id number] Author: Omar Gross Service: (none) Author Type: Physician Type: Progress Notes Filed: 12/19/2017 12:39 PM Note Text: Diagnosis: 1) Ovarian cancer. HPI: The patient is a 62 year old female who presented to her PCP prior to a trip to [facility] for vaccinations. She reported that she [...] Taxol x 6 cycles, completed 05/27/13. 6) Naranjito/carbo/cassandra x cycles for biopsy proven metastatic disease [...] No jaundice or rash. No petechiae. NEUROLOGIC: dimensional inspector II-XII are grossly intact. No focal motor weakness. ASSESSMENT/PLAN: 1) Ovarian cancer. KPS is 90%. Biopsy-proven recurrence. [facility] refractory. -She is tolerating topotecan well thus [...] NRBC PANEL Collected: 12/19/2017 Status: F Source: [place] 10:55 AM [facility] REPOSITORY Order Comment: CRITICAL VALUE VERIFIED. CALLED TO SILVANA AT 'S OFFICE 12/19/17 [address]. RESULTS READ BACK BY SAME . TYPE CODE TESTS RESULT OUT OF RANGE REFERENCE UNITS LAB L100.4450 0-5 % Normal NRBC, FLAGGED 0.3 LAB L100.4455 0-5 10 3/uL Normal NRBC # 0.21 Performed By: #### L100.4425, L100.0100 #### [facility] [place], [address] CBC W/DIFF, AUTOMATED Collected: 12/19/2017 Status: C Source: [place] 10:55 AM [facility] REPOSITORY Order Comment: CRITICAL VALUE VERIFIED. CALLED TO SILVANA AT 'S OFFICE 12/19/17 1117 Tiki Tran. [...] jalyn Performed By: #### L100.4425, L100.0100 #### [facility] [place], [address] COMPREHENSIVE METABOLIC Collected: 12/19/2017 Status: F Source: [place] [facility] 10:55 AM [facility] REPOSITORY TYPE CODE TESTS RESULT OUT OF [...] GAP 10 Performed By: #### L500.4050 #### [facility] [address] [place], [place], [address] CANCER ANTIGEN 125 Collected: 12/19/2017 Status: F Source: [place] 10:55 AM [facility] REPOSITORY TYPE CODE TESTS RESULT OUT OF RANGE REFERENCE UNITS LAB L3100.5000 0.0-38.1 U/mL Normal CA125 34.6 2303 Result Comment: [employer] ECLIA methodology Performed at: [facility] [address] [id number] Environmental Quality Analyst: Carlo Bass PhD, Phone: [phone] Performed By: #### L3100.5000 #### [facility] (refer to report for specific site) refer to report for address and phone number CBC W/DIFF, AUTOMATED Collected: 12/13/2017 Status: F Source: [place] 11:36 AM [facility] REPOSITORY TYPE CODE TESTS RESULT OUT OF [...] HYPOCHROMASIA 1+ Performed By: #### L100.0100 #### [facility] [address] [facility] [place], [address] CTA CHEST W/WO Observed: 12/06/2017 Status: F Source: [place] CONTRAST 3:51 PM [facility] REPOSITORY [facility] Imaging Services [address] [place] [address] CTA Chest W/WO Contrast MR#: [id number] Acct: [id number] Name: IVA CUEVA Rep #: [id number] : 1955 F 62 From: Maura Ordaz MD PCP: Peter Deras MD Status: REG CLI Study: CTA Chest W/WO Contrast Date of Exam: 12/06/17 Exam# [id number] Ordering Dr: Omar Gross DO STUDY: CTA [...] CC: Peter Deras MD; Omar Gross DO Partridge Farmer: Signed CBC-COMPLETE BLOOD CNT Collected: 12/06/2017 Status: F Source: [place] NO DIFF 1:50 PM [facility] REPOSITORY TYPE CODE TESTS RESULT OUT OF [...] MPV 9.6 Performed By: #### L100.0500 #### [facility] [address] [place], [address] MISC SEND OUT TEST Collected: 12/05/2017 Status: F Source: [place] 8:04 PM [facility] REPOSITORY TYPE CODE TESTS RESULT OUT OF REFERENCE UNITS RANGE LAB NAME1 TUMOR Test BRACANALYSIS LAB RESU1 View results Test Results in Scanned Documents link when available. Performed By: #### WILD13 #### [facility] [address] [place], [place] [address] CBC W/DIFF, AUTOMATED Collected: 12/03/2017 Status: C Source: ANDERSON 12:15 PM [facility] REPOSITORY TYPE CODE TESTS RESULT OUT OF [...] 1450 PATH REV previously reported as: February foll LAB L100.2620 2.0-7.7 X10 3/uL Normal Absolute Neut 3.5 LAB L100.2720 0.83-4.51 X10 3/ul Normal Absolute Lymph 2.30 Performed By: #### L100.0100 #### [facility] [address] [place], [address] PROGRESS Observed: 11/28/2017 Status: COMPLETED Source: HURLEY 5:41 PM [facility] REPOSITORY HNO ID: [id number] Author: Omar Gross Service: (none) Author Type: Physician Type: Progress Notes Filed: 11/28/2017 5:45 PM Note Text: Diagnosis: 1) Ovarian cancer. HPI: The patient is a 62 year old female who presented to her PCP prior to a trip to [facility] for vaccinations. She reported that she [...] Taxol x 6 cycles, completed 05/27/13. 6) Naranjito/carbo/cassandra x cycles for biopsy proven metastatic disease [...] No jaundice or rash. No petechiae. NEUROLOGIC: dimensional inspector II-XII are grossly intact. No focal motor weakness. ASSESSMENT/PLAN: 1) Ovarian cancer. KPS is 90%. Biopsy-proven recurrence. [facility] refractory. -She is tolerating topotecan well thus far. -Previous discussed rationale for testing biopsy specimen from 2014 for somatic BRCA mutation. [facility] didn't have enough tissue. Plan: -Cycle #2 topotecan on Sunday 12/03 pending CBC results that day. -Neupogen x10 days post cycle. -CT C/A/P prior to cycle #4 or sooner pending CA125 trend. -Continue olanzapine. -Somatic mutation of BRCA requested from past specimen in 2012 for [facility]. Omar Gross DO CNOVSP Observed: 11/28/2017 Status: COMPLETED Source: HURLEY 4:00 PM [facility] REPOSITORY Visit (SP) Office (PRISCILLA) IVA CUEVA ([id number]) 1955 F Date Time Provider Department 11/28/17 4:00 PM OMAR GROSS During your visit today, we recorded the following information about you: Temperature Pulse Blood pressure Weight 98 degrees 99/minute 122/66 87.3 kg Jane James MARTELL 11/28/2017 4:37 PM Signed Est patient. Labs today at [facility]. Jane James MANAGER MEDICAL DEVICEShu Lucia MadiejaimieDO 11/28/2017 5:45 PM Signed Diagnosis: 1) Ovarian cancer. HPI: The patient is a 62 year old female who presented to her PCP prior to a trip to [facility] for vaccinations. She reported that she [...] Taxol x 6 cycles, completed 05/27/13. 6) Naranjito/carbo/cassandra x cycles for biopsy proven metastatic disease [...] No jaundice or rash. No petechiae. NEUROLOGIC: dimensional inspector II-XII are grossly intact. No focal motor weakness. ASSESSMENT/PLAN: 1) Ovarian cancer. KPS is 90%. Biopsy-proven recurrence. [facility] refractory. -She is tolerating topotecan well thus far. -Previous discussed rationale for testing biopsy specimen from 2014 for somatic BRCA mutation. [facility] didn't have enough tissue. Plan: -Cycle #2 topotecan on Sunday 12/03 pending CBC results that day. -Neupogen x10 days post cycle. -CT C/A/P prior to cycle #4 or sooner pending CA125 trend. -Continue olanzapine. -Somatic mutation of BRCA requested from past specimen in 2012 for [facility]. Omar Gross DO Referring Provider: OMAR GROSS [[id number]] Allergies As of Date: 11/28/2017 Noted Allergy [...] * FLUTICASONE 50 MCG/ACTUATION * Use 1 [place] in each nostril o* ERGOCALCIFEROL (VITAMIN D2) [...] Status: Signed Est patient. Labs today at [facility]. Jane James LPN Encounter Status:Closed by OMAR GROSS DO on 11/28/17 CBC W/DIFF, AUTOMATED Collected: 11/28/2017 Status: C Source: CASA 10:31 AM [facility] REPOSITORY TYPE CODE TESTS RESULT OUT OF [...] 11/29/17 1312 PATH REV previously reported as: May jalyn Performed By: #### L100.0100 #### [facility] [place], [address] COMPREHENSIVE METABOLIC Collected: 11/28/2017 Status: F Source: CASA BENDER 10:31 AM [facility] REPOSITORY TYPE CODE TESTS RESULT OUT OF [...] GAP 7 Performed By: #### L500.4050 #### [facility] [place], [address] CANCER ANTIGEN 125 Collected: 11/28/2017 Status: F Source: ANDERSON 10:31 AM [facility] REPOSITORY TYPE CODE TESTS RESULT OUT OF RANGE REFERENCE UNITS LAB L3100.5000 0.0-38.1 U/mL High CA125 92.1 2303 Result Comment: [employer] ECLIA methodology Performed at: [facility] [address] [id number] Environmental Quality Analyst: Carlo Bass PhD, Phone: [phone] Performed By: #### L3100.5000 #### [facility] (refer to report for specific site) refer to report for address and phone number OBSOLETE Observed: 11/26/2017 Status: COMPLETED Source: HURLEY 12:00 AM [facility] REPOSITORY Refill (PRISCILLA) IVA CUEVA ([id number]) 1955 F Date Time Provider Department 11/26/17 [...] * FLUTICASONE 50 MCG/ACTUATION * Use 1 [place] in each nostril o* ERGOCALCIFEROL (VITAMIN D2) [...] SOURCE Drug hydrocodone Itching Unknown [facility] 8 Allergy/621619580( bitartrate/F0000 [facility]) [address](RXNORM) Hospital Repository Drug tramadol Itching Unknown [place] 8 Allergy/614055305( HCl/A572929216(R [facility]) XNORM) Hospital Repository Drug codeine/D7440509 Itching Unknown [facility] 8 Allergy/279841790( 50(RXNORM) Community SN[facility]) Hospital Repository Drug oxycodone/P95036 Itching Unknown [facility] 8 Allergy/327951456( 1558(RXNORM) Community SNOM[facility]) Hospital Repository Drug acetaminophen/F0 Itching Unknown [place] 8 Allergy/775977870( 61504911(RXNORM) [facility]) Hospital Repository DRUG/719979322(SNO OXYCODONE-ACETAM ITCHING [place] [address]) INOPHEN [facility] Main [place] Repository DRUG TRAMADOL HCL ITCHING [place] 3 INGREDI/652725305( Clinic Main SNOMED CT) [place] Repository DRUG/987565974(SNO HYDROCODONE-ACET ITCHING [place] [address] [place] [facility] Miscellaneous OTHER [place] 7 Allergy/164374888( [facility] Main SNOMED CT) [place] Repository DRUG CODEINE INTOLERANCE [place] 7 INGREDI/886461298( [facility] Main SNOMED CT) [place] Repository ENCOUNTERS ENCOUNTERS ADMIT/DISCHARGE ACCOUNT ADMITTING ENCOUNTER LOCATION SOURCE NUMBER CLASS 11/23/2018/11/23/19 [id number] [address] ing:MEDOUTP Repository 11/22/2018 [id number] [facility] 11/21/2018 [id number] [facility] 11/20/2018 [id number] [facility] Repository 11/19/2018 [id number] [facility] Repository 11/04/2018 [id number] GERARD [facility] Main [place] Repository 11/01/2018/11/01/19 [id number] Ambulatory [address] Repository 10/29/2018 [id number] Ambulatory [facility] Hospital[facility] Hospital ing:LAB Repository 10/28/2018/10/28/20 [id number] Ambulatory [address] Repository 10/28/2018/10/28/20 [id number] Ambulatory [address] Repository 10/28/2018 [id number] Ambulatory [facility] Hospital[facility] Hospital ing:MEDOUTP Repository 10/25/2018/10/25/20 [id number] Ambulatory [address] HospitalBuild Hospital ing:LAB Repository 10/24/2018/10/25/20 [id number] Ambulatory [address] Repository 10/11/2018 [id number] Ambulatory [facility] HospitalBuild Hospital ing:MEDOUTP Repository 10/10/2018 [id number] Ambulatory [facility] Hospitalild Hospital ing:MEDOUTP Repository 10/09/2018 [id number] Ambulatory [facility] HospitalBuild Hospital ing:MEDOUTP Repository 10/08/2018 [id number] [facility] Repository 10/07/2018 [id number] [facility] ing[facility]P Repository 09/26/2018 [id number] [facility] ing:OPUS Repository 09/17/2018/09/17/20 [id number] Ambulatory BMSBuilding:B [place] [address] Repository 09/13/2018 [id number] [facility] ing:MEDOUTP Repository 09/12/2018 [id number] [facility] ing:MED[facility]P Repository 09/11/2018 [id number] [facility] ing:MED[facility]P Repository 09/10/2018 [id number] [facility] ing:MED[facility]P Repository 09/09/2018 [id number] [facility] ing:MED[facility]P Repository 08/30/2018/09/02/20 [id number] Ambulatory [place] [place] Repository 08/26/2018/08/26/20 [id number] Ambulatory [place] [address] HospitalBuild Hospital ing:LAB Repository 08/06/2018 [id number] [facility] ing:MED[facility]P Repository 08/02/2018 [id number] [facility] ing:MED[facility]P Repository 08/01/2018 [id number] [facility] ing:MEDOUTP Repository 07/31/2018 [id number] [facility] ing:MEDOUTP Repository 07/30/2018 [id number] [facility] ing:MED[facility]P Repository 07/29/2018 [id number] [facility] ing:MED[facility]P Repository 07/23/2018/07/23/20 [id number] Ambulatory [place] [address] [place] [address] HospitalBuild Hospital ing:LAB Repository 07/12/2018 [id number] [facility] [facility] ing:MEDOUTP Repository 07/11/2018 [id number] [facility] ing:MEDOUTP Repository 07/10/2018 [id number] [facility] ing:MEDOUTP Repository 07/09/2018 [id number] [facility] ing:MEDOUTP Repository 07/08/2018 [id number] [facility] ing:MEDOUTP Repository 07/04/2018/07/05/20 [id number] Ambulatory [address] Main [place] Repository 06/26/2018/06/26/20 [id number] Ambulatory [place] [facility] [address] [place] [address] HospitalBuild Hospital ing:LAB Repository 06/21/2018 [id number] [facility] ing:MED[facility]P Repository 06/20/2018 [id number] Ambulatory [facility] HospitalBuild Hospital ing:MEDOUTP Repository 06/19/2018 [id number] [facility] ing:MEDOUTP Repository 06/18/2018 [id number] [facility] ing:MEDOUTP Repository 06/17/2018 [id number] [facility] ing:MEDOUTP Repository 06/13/2018/06/14/20 [id number] Ambulatory [address] [place] Repository 05/24/2018 [id number] [facility] ing:MEDOUTP Repository 05/23/2018 [id number] [facility] [facility] ing:MEDOUTP Repository 05/22/2018 [id number] [facility] ing:MEDOUTP Repository 05/21/2018 [id number] [facility] ing:MEDOUTP Repository 05/20/2018 [id number] [facility] ing:MEDOUTP Repository 05/18/2018/05/18/20 [id number] Ambulatory [place] [facility] HospitalBuild Hospital ing:LAB Repository 04/29/2018/04/29/20 [id number] Ambulatory [address] Main [place] Repository 04/29/2018/04/29/20 [id number] Ambulatory [address] Main [place] Repository 04/29/2018/05/03/20 [id number] Ambulatory [address] Main [place] Repository 04/29/2018/04/29/20 [id number] Ambulatory [address] Main [place] Repository 04/18/2018/04/22/20 [id number] Ambulatory [address] [place] Repository 04/16/2018/04/16/20 [id number] Ambulatory [place] [address] [facility] HospitalBuild Hospital ing:LAB Repository 04/12/2018/04/13/20 [id number] Ambulatory [address] [place] Repository 04/06/2018/04/06/20 [id number] Ambulatory [place] [address] [facility] HospitalBuild Hospital ing:MEDOUTP Repository 04/05/2018 [id number] [facility] ing:MEDOUTP Repository 04/04/2018 [id number] [facility] ing:MED[facility]P Repository 04/03/2018 [id number] [facility] ing:MEDOUTP Repository 04/02/2018 [id number] [facility] ing:MEDOUTP Repository 03/29/2018/04/01/20 [id number] Ambulatory [address] [place] Repository 03/27/2018/03/27/20 [id number] Ambulatory [place] [address] [facility] HospitalBuild Hospital ing:LAB Repository 03/08/2018 [id number] [facility] ing:MEDOUTP Repository 03/07/2018 [id number] [facility] ing:MEDOUTP Repository 03/06/2018 [id number] [facility] Hospital ing:MEDOUTP Repository 03/05/2018 [id number] [facility] ing:MEDOUTP Repository 03/04/2018 [id number] Ambulatory [place] HospitalBuild Hospital ing:MEDOUTP Repository 02/27/2018/02/29/20 [id number] Ambulatory [address] [place] Repository 02/13/2018 [id number] [facility] ing:MEDOUTP Repository 02/11/2018/02/12/20 [id number] Ambulatory [place] [address] [place] [address] HospitalBuild Hospital ing:LAB Repository 02/08/2018 [id number] Ambulatory [place] [facility] HospitalBuild Hospital ing:MEDOUTP Repository 02/07/2018 [id number] Ambulatory [place] [facility] HospitalBuild Hospital ing:MEDOUTP Repository 02/06/2018 [id number] [facility] ing:MEDOUTP Repository 02/05/2018 [id number] [facility] Hospital ing:MEDOUTP Repository 02/04/2018 [id number] [facility] [facility] Hospital ing:MEDOUTP Repository 01/18/2018 [id number] [facility] Hospital ing:MEDOUTP Repository 01/17/2018 [id number] [facility] [facility] ing:MEDOUTP Repository 01/16/2018 [id number] [facility] ing:MEDOUTP Repository 01/15/2018 [id number] [facility] Hospital ing:MEDOUTP Repository 01/14/2018 [id number] Ambulatory [place] [facility] HospitalBuild Hospital ing:MEDOUTP Repository 01/09/2018/01/12/20 [id number] Ambulatory [address] [place] Repository 01/09/2018/01/10/20 [id number] Ambulatory [place] [facility] [address] [place] [address] HospitalBuild Hospital ing:LAB Repository 01/03/2018 [id number] [facility] ing:MEDOUTP Repository 12/28/2017 [id number] [facility] [facility] Hospital ing:MEDOUTP Repository 12/27/2017 [id number] [facility] ing:MEDOUTP Repository 12/26/2017 [id number] [facility] ing:MEDOUTP Repository 12/25/2017 [id number] Ambulatory [facility] HospitalBuild Hospital ing:MEDOUTP Repository 12/24/2017 [id number] Ambulatory [facility] HospitalBuild Hospital ing:MEDOUTP Repository 12/19/2017/12/19/19 [id number] Ambulatory [address] Repository 12/19/2017/12/19/19 [id number] Ambulatory [facility] HospitalBuild Hospital ing:LAB Repository 12/07/2017 [id number] Ambulatory [facility] HospitalBuild Hospital ing:MEDOUTP Repository 12/06/2017 [id number] Ambulatory [facility] HospitalBuild Hospital ing:MEDOUTP Repository 12/05/2017 [id number] [facility] ing:MEDOUTP Repository 12/04/2017 [id number] [facility] Hospital ing:MEDOUTP Repository 12/03/2017 [id number] Ambulatory [facility] HospitalBuild Hospital ing:MEDOUTP Repository 11/28/2017/11/29/19 [id number] Ambulatory [address] Repository 11/28/2017/11/28/19 [id number] Ambulatory [facility] HospitalBuild Hospital ing:LAB Repository PAYERS PAYERS ENCOUNTER GUARANTOR PAYER SUBSCRIBER SOURCE 11/23/2018 IVA L Primary IVA L [place] [id number] DEER Insurance:MEDICAL [facility]IBACHDOB[facility] [id number] [facility] [address]Ozb: Number: Repository [id number] (HP) Date:9265-05-28PK[address] [address]RQ: 11/23/2018 Secondary NOT GIVENUNK [place] Insurance:SELF PAY [facility] Number: Effective Repository Date:2018-11-13 11/22/2018 IVA L Primary IVA L [place] [id number] [place] Insurance:MEDICAL MAIBACHDOB: [facility] [id number] [facility] Regional [facility] Center [address]Kkj: Number: Repository [id number] (HP) Date:7738-17-77HM [place] [id number]: 11/22/2018 Secondary NOT GIVENUNK [place] Insurance:SELF PAY [facility] Number: Effective Repository Date:2018-11-13 11/21/2018 IVA L Primary IVA L [place] [id number] [place] Insurance:MEDICAL MAIBACHDOB: [facility] [id number] [facility] Regional [facility] [address]Crm: Number: Repository [id number] (HP) Date:8861-30-75VRSh[place] [id number]: 11/21/2018 Secondary NOT GIVENUNK [place] Insurance:SELF PAY [facility] Number: Effective Repository Date:2018-11-13 11/20/2018 IVA L Primary IVA L [place] [id number] [place] Insurance:MEDICAL MAIBACHDOB: [facility] [id number] [facility] Regional [facility] Center [address]Ybd: Number: Repository [id number] (HP) Date:6803-94-91CY [place] [phone]: 11/20/2018 Secondary NOT GIVENUNK [place] Insurance:SELF PAY [facility] Number: Effective Repository Date:2018-11-13 11/19/2018 IVA L Primary IVA L [place] [id number] [place] Insurance:MEDICAL MAIBACHDOB: [facility] [id number] Hospital [place] [address]Hqz: Number: Repository [id number] (HP) Date:2602-73-31[place] [address] [address]TW: 11/19/2018 Secondary NOT GIVENUNK [place] Insurance:SELF PAY [facility] Number: Effective Repository Date:2018-11-13 10/29/2018 IVA Ronit Primary IVA Ronit [place] [id number] [place] Insurance:MEDICAL MAIBACHDOB: [facility] [id number] [facility] Center [address]Iqh: Number: Repository [id number] (HP) Date:1793-50-31II [place] [phone]: 10/29/2018 Secondary NOT GIVENUNK [place] Insurance:SELF PAY [facility] Number: Effective Repository Date:2018-10-28 10/28/2018 JOSÉ MIGUEL [place] Primary IVA Ronit [place] [id number] [place] Insurance:MEDICAL MAIBACHDOB: [facility] [id number] [facility] Regional [facility] Center [address]Hwj: Number: Repository [id number] (HP) Date:3863-55-95AB [place] [phone]: 10/28/2018 Secondary NOT GIVENUNK [place] Insurance:SELF PAY [facility] Number: Effective Repository Date:2018-09-17 10/25/2018 JOSÉ MIGUEL [place] Primary IVA Ronit [place] [id number] [place] Insurance:MEDICAL MAIBACHDOB: [facility] [id number] Champion Regional Medical Center [address]Jee: Number: Repository [id number] (HP) Date:1788-05-72RI [address] [address]XS: 10/25/2018 Secondary NOT GIVENUNK [place] Insurance:SELF PAY [facility] Number: Effective Repository Date:2018-08-29 10/11/2018 IVA L Primary IVA L [place] [id number] [place] Insurance:MEDICAL MAIBACHDOB: [facility] [id number] [facility] Regional [facility] [address]Chj: Number: Repository [id number] (HP) Date:3861-74-25TY [address] [address]QL: 10/11/2018 Secondary NOT GIVENUNK [place] Insurance:SELF PAY [facility] Number: Effective Repository Date:2018-09-17 10/10/2018 IVA L Primary IVA L [place] [id number] [place] Insurance:MEDICAL MAIBADOB: [facility] [id number] [facility] [address]Ioa: Number: Repository [id number] (HP) Date:7649-24-22PP [place] [phone]: 10/10/2018 Secondary NOT GIVENUNK [place] Insurance:SELF PAY [facility] Number: Effective Repository Date:2018-09-17 10/09/2018 IVA L Primary IVA L [place] [id number] [place] Insurance:MEDICAL MAIBACHDOB: [facility] [id number] Champion Regional Medical Center [address]Swu: Number: Repository [id number] (HP) Date:4878-37-05DU [place] [phone]: 10/09/2018 Secondary NOT GIVENUNK [place] Insurance:SELF PAY [facility] Number: Effective Repository Date:2018-09-17 10/08/2018 IVA L Primary IVA L [place] [id number] [place] Insurance:MEDICAL MAIBACHDOB: [facility] [id number] [place] [address]Smx: Number: Repository [id number] (HP) Date:0256-64-04WF [address] [address]VH: 10/08/2018 Secondary NOT GIVENUNK [place] Insurance:SELF PAY [facility] Number: Effective Repository Date:2018-09-17 10/07/2018 JOSÉ MIGUEL [place] Primary IVA Larry [id number] [place] Insurance:MEDICAL MAIBACHDOB: [facility] [id number] [facility] Regional [facility] Center [address]Vfg: Number: Repository [id number] (HP) Date:9335-11-06SS [place] [phone]: 10/07/2018 Secondary NOT GIVENUNK [place] Insurance:SELF PAY [facility] Number: Effective Repository Date:2018-09-17 09/26/2018 IVA Ronit Primary IVA Ronit [place] [id number] [place] Insurance:MEDICAL MAIBACHDOB: [facility] [id number] Champion Regional Medical Center [id number]: Number: Repository [id number] (HP) Date:8862-25-27IB [place] [phone]: 09/26/2018 Secondary NOT GIVENUNK [place] Insurance:SELF PAY [facility] Number: Effective Repository Date:2018-09-18 09/17/2018 IVA Cottrell Primary IVA Ronit PatelCasa [id number] [place] Insurance:MEDICAL MAIBACHDOB: [facility] [id number] [facility] [address]Rex: Number: Repository [id number] (HP) Date:0715-01-56QA [address] [address]PW: 09/17/2018 Secondary NOT GIVENUNK [place] Insurance:SELF PAY [facility] Number: Effective Repository Date:2018-09-17 09/13/2018 JOSÉ MIGUEL Makrham Primary IVA L Cas[address] [id number] [place] Insurance:MEDICAL MAIBACHDOB: [facility] [id number] [facility] [place] [address]Vvw: Number: Repository [id number] (HP) Date:5842-63-48ID [address] [address]SB: 09/13/2018 Secondary NOT GIVENUNK [place] Insurance:SELF PAY [facility] Number: Effective Repository Date:2018-09-05 09/12/2018 JOSÉ MIGUEL Markham Primary IVA Cottrell [address] [id number] [place] Insurance:MEDICAL MAIBADOB: [facility] [id number] [facility] [address]Vtf: Number: Repository [id number] (HP) Date:8747-93-93AK [place] [address]WP: 09/12/2018 Secondary NOT GIVENUNK [place] Insurance:SELF PAY [facility] Number: Effective Repository Date:2018-09-05 09/11/2018 JOSÉ MIGUEL Markham Primary IVA Pateloster [id number] [place] Insurance:MEDICAL MAIBACHDOB: [facility] [id number] [facility] [address]Ivz: Number: Repository [id number] (HP) Date:7815-47-23XO [place] [address]WP: 09/11/2018 Secondary NOT GIVENUNK [place] Insurance:SELF PAY [facility] Number: Effective Repository Date:2018-09-05 09/10/2018 JOSÉ MIGUEL Markham Primary IVA [place] [id number] [place] Insurance:MEDICAL MAIBACHDOB: [facility] [id number] [facility] [address]Nmz: Number: Repository [id number] (HP) Date:8237-26-78SS [place] [address]WP: 09/10/2018 Secondary NOT GIVENUNK [place] Insurance:SELF PAY [facility] Number: Effective Repository Date:2018-09-05 09/09/2018 JOSÉ MIGUEL Markham Primary IVA Larry [id number] [place] Insurance:MEDICAL MAIBACHDOB: [facility] [id number] [facility] Regional [facility] [address]Tqk: Number: Repository [id number] (HP) Date:0312-09-49YZ [address] [place], [place] [address]WP: 09/09/2018 Secondary NOT GIVENUNK [place] Insurance:SELF PAY [facility] Number: Effective Repository Date:2018-09-05 08/26/2018 JOSÉ MIGUEL Markham Primary IVA Larry [id number] [place] Insurance:MEDICAL MAIBACHDOB: [facility] [id number] [facility] Regional [facility] [address]Alw: Number: Repository [id number] (HP) Date:4943-82-20PZ [place] [address]WP: 08/26/2018 Secondary NOT GIVENUNK [place] Insurance:SELF PAY [facility] Number: Effective Repository Date:2018-07-31 08/06/2018 JOSÉ MIGUEL Markham Primary IVA Larry [id number] [place] Insurance:MEDICAL MAIBACHDOB: [facility] [id number] Champion Regional Medical Center [address]Pch: Number: Repository [id number] (HP) Date:3835-32-50YV [address] [address]MJ: 08/06/2018 Secondary NOT GIVENUNK [place] Insurance:SELF PAY [facility] Number: Effective Repository Date:2018-08-05 08/02/2018 JOSÉ MIGUEL Markham Primary IVA Larry [id number] [place] Insurance:MEDICAL MAIBACHDOB: [facility] [id number] [facility] Regional [facility] [address]Zyp: Number: Repository [id number] (HP) Date:1836-99-54QH [address] [address]CJ: 08/02/2018 Secondary NOT GIVENUNK [place] Insurance:SELF PAY [facility] Number: Effective Repository Date:2018-07-26 08/01/2018 JOSÉ MIGUEL Rashi Primary IVA Ronit Larry [id number] [place] Insurance:MEDICAL MAIBADOB: [facility] [id number] Champion Regional Medical Center [address]Wih: Number: Repository [id number] (HP) Date:9646-69-65QD [place] [address]WP: 08/01/2018 Secondary NOT GIVENUNK [place] Insurance:SELF PAY [facility] Number: Effective Repository Date:2018-07-26 07/31/2018 JOSÉ MIGUEL Markham Primary IVA Ronit Larry [id number] [place] Insurance:MEDICAL MAIBACHDOB: [facility] [id number] [facility] [address]Gps: Number: Repository [id number] (HP) Date:9945-63-90FS [place] [address]WP: 07/31/2018 Secondary NOT GIVENUNK [place] Insurance:SELF PAY [facility] Number: Effective Repository Date:2018-07-26 07/30/2018 JOSÉ MIGUEL J Primary IVA Ronit Larry [id number] [place] Insurance:MEDICAL MAIBACHDOB: [facility] [id number] Champion Regional Medical Center [address]Lgc: Number: Repository [id number] (HP) Date:3326-35-40LR [place] [address]WP: 07/30/2018 Secondary NOT GIVENUNK [place] Insurance:SELF PAY [facility] Number: Effective Repository Date:2018-07-26 07/29/2018 JOSÉ MIGUEL Markham Primary IVA Larry [id number] [place] Insurance:MEDICAL MAIBACHDOB: [facility] [id number] Champion Regional Medical Center [address]Zor: Number: Repository [id number] (HP) Date:4849-63-16RA [address] [address]BX: 07/29/2018 Secondary NOT GIVENUNK [place] Insurance:SELF PAY [facility] Number: Effective Repository Date:2018-07-26 07/23/2018 JOSÉ MIGUEL Markham Primary IVA Larry [id number] [place] Insurance:MEDICAL MAIBACHDOB: [facility] [id number] [facility] [address]Sxm: Number: Repository [id number] (HP) Date:0171-43-70CG [address] [address]WL: 07/23/2018 Secondary NOT GIVENUNK [place] Insurance:SELF PAY [facility] Number: Effective Repository Date:2018-07-02 07/12/2018 JOSÉ MIGUEL Markham Estee IVA Larry [id number] [place] Insurance:MEDICAL MAIBACHDOB: [facility] [id number] Champion Regional Medical Center [address]Qfg: Number: Repository [id number] (HP) Date:0020-92-40YD [address] [place] [address]YM: 07/12/2018 Secondary NOT GIVENUNK [place] Insurance:SELF PAY [facility] Number: Effective Repository Date:2018-06-21 07/11/2018 JOSÉ MIGUEL Markham Primary IVA Larry [id number] [place] Insurance:MEDICAL MAIBACHDOB: [facility] [id number] [place] [address]Uip: Number: Repository [id number] (HP) Date:9231-14-64LZ [address] [place] [address]TN: 07/11/2018 Secondary NOT GIVENUNK [place] Insurance:SELF PAY [facility] Number: Effective Repository Date:2018-06-21 07/10/2018 JOSÉ MIGUEL Markham Primary IVA Ronit [place] [id number] [place] Insurance:MEDICAL MAIBADOB: [facility] [id number] [place] [address]Hgo: Number: Repository [id number] (HP) Date:3032-18-49JC [address] [address]RK: 07/10/2018 Secondary NOT GIVENUNK [place] Insurance:SELF PAY [facility] Number: Effective Repository Date:2018-06-21 07/09/2018 JOS ÉMIGUEL Rashi Primary IVA Ronit Larry [id number] [place] Insurance:MEDICAL MAIBACHDOB: [facility] [id number] Champion Regional Medical Center [address]Dkx: Number: Repository [id number] (HP) Date:8546-60-89CX [address] [address]VS: 07/09/2018 Secondary NOT GIVENUNK [place] Insurance:SELF PAY [facility] Number: Effective Repository Date:2018-06-21 07/08/2018 JOSÉ MIGUEL Markham Primary IVA Ronit Larry [id number] [place] Insurance:MEDICAL MAIBACHDOB: [facility] [id number] [facility] Regional [facility] Center [address]Atw: Number: Repository [id number] (HP) Date:1329-21-20GB [address] [address]JB: 07/08/2018 Secondary NOT GIVENUNK [place] Insurance:SELF PAY [facility] Number: Effective Repository Date:2018-06-21 06/26/2018 JOSÉ MIGUEL Markham Primary IVA Larry [id number] [place] Insurance:MEDICAL MAIBACHDOB: [facility] [id number] [facility] [address]Hgq: Number: Repository [id number] (HP) Date:4580-07-89MD [place] [address]WP: 06/26/2018 Secondary NOT GIVENUNK [place] Insurance:SELF PAY [facility] Number: Effective Repository Date:2018-05-30 06/21/2018 JOSÉ MIGUEL Markham Primary IVA Larry [id number] [place] Insurance:MEDICAL MAIBACHDOB: [facility] [id number] Champion Regional Medical Center [address]Oqq: Number: Repository [id number] (HP) Date:5528-10-88LN [place] [address]WP: 06/21/2018 Secondary NOT GIVENUNK [place] Insurance:SELF PAY [facility] Number: Effective Repository Date:2018-05-27 06/20/2018 JOSÉ MIGUEL Markham Primary IVA Larry [id number] [place] Insurance:MEDICAL MAIBACHDOB: [facility] [id number] Champion Regional Medical Center [address]Eqy: Number: Repository [id number] (HP) Date:5334-27-52LI [place] [address]WP: 06/20/2018 Secondary NOT GIVENUNK [place] Insurance:SELF PAY [facility] Number: Effective Repository Date:2018-05-27 06/19/2018 JOSÉ MIGUEL Markham Primary IVA Ronit Larry [id number] [place] Insurance:MEDICAL MAIBACHDOB: [facility] [id number] [facility] [address]Vcg: Number: Repository [id number] (HP) Date:3684-38-31MH [address] [place] [address]J: 06/19/2018 Secondary NOT GIVENUNK [place] Insurance:SELF PAY [facility] Number: Effective Repository Date:2018-05-27 06/18/2018 JOSÉ MIGUEL Rashi Primary IVA oRnit Larry [id number] [place] Insurance:MEDICAL MAIBACHDOB: [facility] [id number] [facility] [address]Hlj: Number: Repository [id number] (HP) Date:5108-62-67OW [address] [address]BA: 06/18/2018 Secondary NOT GIVENUNK [place] Insurance:SELF PAY [facility] Number: Effective Repository Date:2018-05-27 06/17/2018 JOSÉ MIGUEL Rashi Primary IVA Ronit Larry [id number] [place] Insurance:MEDICAL MAIBACHDOB: [facility] [id number] Champion Regional Medical Center [address]Mgl: Number: Repository [id number] (HP) Date:5643-58-49NM [address] [address]SX: 06/17/2018 Secondary NOT GIVENUNK [place] Insurance:SELF PAY [facility] Number: Effective Repository Date:2018-05-24 05/24/2018 José Miguel Markham Primary IVA Ronit Larry [id number] [place] Insurance:MEDICAL MAIBACHDOB: [facility] [id number] [facility] Center [address]Rhm: Number: Repository [id number] (HP) Date:4501-16-56AU [address] [address]TT: 05/24/2018 Secondary NOT GIVENUNK [place] Insurance:SELF PAY [facility] Number: Effective Repository Date:2018-04-18 05/23/2018 José Miguel Markham Primary IVA Larry [id number] [place] Insurance:MEDICAL MAIBACHDOB: [facility] [id number] [facility] [address]Ioi: Number: Repository [id number] (HP) Date:5701-83-93BH [facility] [address] [place], [place] [address]WP: 05/23/2018 Secondary NOT GIVENUNK [place] Insurance:SELF PAY [facility] Number: Effective Repository Date:2018-04-18 05/22/2018 José Miguel Markham Primary IVA Larry [id number] [place] Insurance:MEDICAL MAIBACHDOB: [facility] [id number] [facility] Regional [facility] [address]Tfa: Number: Repository [id number] (HP) Date:7312-06-18XE [facility] [address] [place], [place] [address]WP: 05/22/2018 Secondary NOT GIVENUNK [place] Insurance:SELF PAY [facility] Number: Effective Repository Date:2018-04-18 05/21/2018 José Miguel Larry [id number] [place] Insurance:MEDICAL MAIBACHDOB: [facility] [id number] [facility] [address]Qvk: Number: Repository [id number] (HP) Date:6788-79-46SH [place] [address]WP: 05/21/2018 Secondary NOT GIVENUNK [place] Insurance:SELF PAY [facility] Number: Effective Repository Date:2018-04-18 05/20/2018 José Miguel Markham Primary IVA Larry [id number] [place] Insurance:MEDICAL MAIBACHDOB: [facility] [id number] Champion Regional Medical Center [address]Wta: Number: Repository [id number] (HP) Date:3634-49-17YT [place] [address]WP: 05/20/2018 Secondary NOT GIVENUNK [place] Insurance:SELF PAY [facility] Number: Effective Repository Date:2018-04-18 05/18/2018 José Miguel Markham Primary IVA Ronit Larry [id number] [place] Insurance:MEDICAL MAIBACHDOB: [facility] [id number] [facility] [address]Zft: Number: Repository [id number] (HP) Date:9191-98-55FS [place] [address]WP: 05/18/2018 Secondary NOT GIVENUNK [place] Insurance:SELF PAY [facility] Number: Effective Repository Date:2018-04-26 04/16/2018 José Miguel Markham Primary IVA L Casa [id number] [place] Insurance:MEDICAL MAIBACHDOB: [facility] [id number] Champion Regional Medical Center [address]Eyp: Number: Repository [id number] (HP) Date:7930-61-09SG [address] [address]MS: 04/16/2018 Secondary NOT GIVENUNK [place] Insurance:SELF PAY [facility] Number: Effective Repository Date:2018-03-28 04/06/2018 José Miguel Markham Primary IVA Ronit Larry [id number] [place] Insurance:MEDICAL MAIBACHDOB: [facility] [id number] [facility] [address]Oak: Number: Repository [id number] (HP) Date:2640-44-83AI [address] [address]LZ: 04/06/2018 Secondary NOT GIVENUNK [place] Insurance:SELF PAY [facility] Number: Effective Repository Date:2018-03-07 04/05/2018 José Miguel Markham Primary IVA Larry [id number] [place] Insurance:MEDICAL MAIBACHDOB: [facility] [id number] [place] [address]Lav: Number: Repository [id number] (HP) Date:2819-96-67BS [address] [place], [place] [address]WP: 04/05/2018 Secondary NOT GIVENUNK [place] Insurance:SELF PAY [facility] Number: Effective Repository Date:2018-03-07 04/04/2018 José Miguel Markham Primary IVA Larry [id number] [place] Insurance:MEDICAL MAIBACHDOB: [facility] [id number] [place] [address]Ryu: Number: Repository [id number] (HP) Date:8302-38-52UY [address] [place], [place] [address]WP: 04/04/2018 Secondary NOT GIVENUNK [place] Insurance:SELF PAY [facility] Number: Effective Repository Date:2018-03-07 04/03/2018 José Miguel Markham Primary IVA Larry [id number] [place] Insurance:MEDICAL MAIBACHDOB: [facility] [id number] [place] [address]Bii: Number: Repository [id number] (HP) Date:6235-41-29BZ [address] [place], [place] [address]WP: 04/03/2018 Secondary NOT GIVENUNK [place] Insurance:SELF PAY [facility] Number: Effective Repository Date:2018-03-07 04/02/2018 José Miguel Markham Primary IVA Larry [id number] [place] Insurance:MEDICAL MAIBACHDOB: [facility] [id number] [facility] [address]Dbq: Number: Repository [id number] (HP) Date:9069-51-30GV [address] [address]TU: 04/02/2018 Secondary NOT GIVENUNK [place] Insurance:SELF PAY [facility] Number: Effective Repository Date:2018-03-07 03/27/2018 José Miguel Markham Primary IVA Ronit Larry [id number] [place] Insurance:MEDICAL MAIBACHDOB: [facility] [id number] [facility] Regional [facility] [address]Yar: Number: Repository [id number] (HP) Date:6170-48-54FB [address] [address]BT: 03/27/2018 Secondary NOT GIVENUNK [place] Insurance:SELF PAY [facility] Number: Effective Repository Date:2018-02-26 03/08/2018 José Miguel Markham Primary IVA Roint Larry [id number] [place] Insurance:MEDICAL MAIBACHDOB: [facility] [id number] Champion Regional [facility] [address]Cfj: Number: Repository [id number] (HP) Date:8718-58-17MM [address] [address]VT: 03/08/2018 Secondary NOT GIVENUNK [place] Insurance:SELF PAY [facility] Number: Effective Repository Date:2018-02-18 03/07/2018 José Miguel Markham Primary IVA Pateloster [id number] [place] Insurance:MEDICAL MAIBACHDOB: [facility] [id number] [facility] [address]Vmh: Number: Repository [id number] (HP) Date:3933-06-92QS [address] [address]BA: 03/07/2018 Secondary NOT GIVENUNK [place] Insurance:SELF PAY [facility] Number: Effective Repository Date:2018-02-18 03/06/2018 José Miguel Markham Primary IVA Larry [id number] [place] Insurance:MEDICAL MAIBACHDOB: [facility] [id number] [place] [address]Dug: Number: Repository [id number] (HP) Date:5100-87-15DD [place] [address]WP: 03/06/2018 Secondary NOT GIVENUNK [place] Insurance:SELF PAY [facility] Number: Effective Repository Date:2018-02-18 03/05/2018 José Miguel Markham Primary IVA Larry [id number] [place] Insurance:MEDICAL MAIBACHDOB: [facility] [id number] [place] [address]Dzo: Number: Repository [id number] (HP) Date:2509-22-30PS [place] [address]WP: 03/05/2018 Secondary NOT GIVENUNK [place] Insurance:SELF PAY [facility] Number: Effective Repository Date:2018-02-18 03/04/2018 José Miguel Markham Primary IVA Larry [id number] [place] Insurance:MEDICAL MAIBACHDOB: [facility] [id number] [place] [address]Bpi: Number: Repository [id number] (HP) Date:9676-41-59DJ [address] [address]LJ: 03/04/2018 Secondary NOT GIVENUNK [place] Insurance:SELF PAY [facility] Number: Effective Repository Date:2018-02-18 02/13/2018 José Miguel Markham Primary IVA Larry [id number] [place] Insurance:MEDICAL MAIBACHDOB: [facility] [id number] [place] [address]Plz: Number: Repository [id number] (HP) Date:0622-73-97NP [address] [address]TC: 02/13/2018 Secondary NOT GIVENUNK [place] Insurance:SELF PAY [facility] Number: Effective Repository Date:2018-02-12 02/11/2018 José Miguel Markham Primary IVA Ronit Larry [id number] [place] Insurance:MEDICAL MAIBACHDOB: [facility] [id number] [place] [address]Jhe: Number: Repository [id number] (HP) Date:0761-96-15SD [place] [address]WP: 02/11/2018 Secondary NOT GIVENUNK [place] Insurance:SELF PAY [facility] Number: Effective Repository Date:2018-01-28 02/08/2018 José Miguel Rashi Primary IVA Ronit Larry [id number] [place] Insurance:MEDICAL MAIBACHDOB: [facility] [id number] [place] [address]Rwv: Number: Repository [id number] (HP) Date:1622-19-60MH [address] [address]ZA: 02/08/2018 Secondary NOT GIVENUNK [place] Insurance:SELF PAY [facility] Number: Effective Repository Date:2018-01-25 02/07/2018 José Miguel Markham Primary IVA Ronit Larry [id number] [place] Insurance:MEDICAL MAIBADOB: [facility] [id number] Champion Regional [facility] Center [address]Hav: Number: Repository [id number] (HP) Date:9364-98-58OM [address] [address]DQ: 02/07/2018 Secondary NOT GIVENUNK [place] Insurance:SELF PAY [facility] Number: Effective Repository Date:2018-01-25 02/06/2018 José Miguel Markham Primary IVA Larry [id number] [place] Insurance:MEDICAL MAIBACHDOB: [facility] [id number] [facility] [address]Kqt: Number: Repository [id number] (HP) Date:9658-00-82DS [place] [address]WP: 02/06/2018 Secondary NOT GIVENUNK [place] Insurance:SELF PAY [facility] Number: Effective Repository Date:2018-01-25 02/05/2018 José Miguel Markham Primary IVA Larry [id number] [place] Insurance:MEDICAL MAIBACHDOB: [facility] [id number] [facility] [address]Kyl: Number: Repository [id number] (HP) Date:9159-27-71JE [place] [address]WP: 02/05/2018 Secondary NOT GIVENUNK [place] Insurance:SELF PAY [facility] Number: Effective Repository Date:2018-01-25 02/04/2018 José Miguel Larry [id number] [place] Insurance:MEDICAL MAIBACHDOB: [facility] [id number] [place] [address]Sxb: Number: Repository [id number] (HP) Date:8795-96-61IZ [place] [address]WP: 02/04/2018 Secondary NOT GIVENUNK [place] Insurance:SELF PAY [facility] Number: Effective Repository Date:2018-01-25 01/18/2018 José Miguel Markham Primary IVA Larry [id number] [place] Insurance:MEDICAL MAIBACHDOB: [facility] [id number] [place] [address]Ygq: Number: Repository [id number] (HP) Date:4035-27-52BV [address] [place] [address]HT: 01/18/2018 Secondary NOT GIVENUNK [place] Insurance:SELF PAY [facility] Number: Effective Repository Date:2018-01-17 01/17/2018 José Miguel Makrham Primary IVA Larry [id number] [place] Insurance:MEDICAL MAIBACHDOB: [facility] [id number] [facility] [address]Ltf: Number: Repository [id number] (HP) Date:4985-92-10CP [address] [address]GI: 01/17/2018 Secondary NOT GIVENUNK [place] Insurance:SELF PAY [facility] Number: Effective Repository Date:2018-01-10 01/16/2018 José Miguel Markham Primary IVA Ronit PatelMilnor [id number] [place] Insurance:MEDICAL MAIBACHDOB: [facility] [id number] [facility] [address]Mqe: Number: Repository [id number] (HP) Date:8207-04-78GD [address] [address]JB: 01/16/2018 Secondary NOT GIVENUNK [place] Insurance:SELF PAY [facility] Number: Effective Repository Date:2018-01-10 01/15/2018 José Miguel Markham Primary IVA Ronit PatelCasa [id number] [place] Insurance:MEDICAL MAIBACHDOB: [facility] [id number] Number: Repository [id number]: 330 [id number] [phone] (HP) Date:7811-86-05TC [address] [address]TT: 01/15/2018 Secondary NOT GIVENUNK [place] Insurance:SELF PAY [facility] Number: Effective Repository Date:2018-01-10 01/14/2018 José Miguel Markham Primary IVA Larry [id number] [place] Insurance:MEDICAL MAIBACHDOB: [facility] [id number], [place] Number: Repository [address]Erz: 330 [id number] [phone] (HP) Date:8087-45-52OJ [address] [address]MR: 01/14/2018 Secondary NOT GIVENUNK [place] Insurance:SELF PAY [facility] Number: Effective Repository Date:2018-01-10 01/09/2018 José Miguel Markham Primary IVA Larry [id number] [place] Insurance:MEDICAL MAIBACHDOB: [facility] [id number], [place] Number: Repository [id number]: 330 [id number] [phone] (HP) Date:6148-35-23ZB [address] [address]KU: 01/09/2018 Secondary NOT GIVENUNK [place] Insurance:SELF PAY [facility] Number: Effective Repository Date:2017-12-27 01/03/2018 José Miguel Markham Primary IVA Larry [id number] [place] Insurance:MEDICAL MAIBACHDOB: [facility] [id number], [place] Number: Repository [address]Eto: 330 [id number] [phone] (HP) Date:7481-82-69MU [address] [address]LF: 01/03/2018 Secondary NOT GIVENUNK [place] Insurance:SELF PAY [facility] Number: Effective Repository Date:2018-01-02 12/28/2017 José Miguel Markham Primary IVA Larry [id number] [place] Insurance:MEDICAL MAIBACHDOB: [facility] [id number] Number: Repository [address]Zpi: 330 [id number] [phone] (HP) Date:6712-53-23VU [address], [place] [address]DG: 12/28/2017 Secondary NOT GIVENUNK [place] Insurance:SELF PAY [facility] Number: Effective Repository Date:2017-12-07 12/27/2017 José Miguel Markham Primary IVA Larry [id number] [place] Insurance:MEDICAL [facility]DOB: [facility] [id number] [address]Uja: Number: Repository [id number] (HP) Date:7040-18-61HG [address], [place] [address]MJ: 12/27/2017 Secondary NOT GIVENUNK [place] Insurance:SELF PAY [facility] Number: Effective Repository Date:2017-12-07 12/26/2017 José Miguel Markham Primary Insurance:[facility] Iva Larry [id number] [place] [facility]: [facility] [id number], [place] Number: Repository [address]Scj: 330 [id number] [phone] (HP) Date:9057-72-61FL [facility] [address]FO[place], [place] [address]KN: CHECK WEBSITE 12/26/2017 Secondary NOT GIVENUNK [place] Insurance:SELF PAY [facility] Number: Effective Repository Date:2017-12-07 12/25/2017 José Miguel Markham Primary Insurance:[facility] Iva Larry [id number] [facility]: [facility] [id number], [place] Number: Repository [address]Tpg: 330 [id number] [phone] (HP) Date:2683-41-21QM [address]DDJJGGOWU, [place] [address]AB: CHECK WEBSITE 12/25/2017 Secondary NOT GIVENUNK [place] Insurance:SELF PAY [facility] Number: Effective Repository Date:2017-12-07 12/24/2017 José Miguel Markham Primary Insurance:[facility] Iva Larry [id number] [facility] [id number], [place] Number: Repository [address]Jzy: 330 [id number] [phone] (HP) Date:3200-25-25HN [address] [address]EJCNBVLYL, [place] [address]PO: CHECK WEBSITE 12/24/2017 Secondary NOT GIVENUNK [place] Insurance:SELF PAY [facility] Number: Effective Repository Date:2017-12-07 12/19/2017 José Miguel Markham Primary Insurance:[facility] Iva Larry [id number] [place] [facility]: [facility] [id number], [place] Number: Repository [address]Xmo: 330 [id number] [phone] (HP) Date:6250-89-62EE [address], [place] [address]IZ: CHECK WEBSITE 12/19/2017 Secondary NOT GIVENUNK [place] Insurance:SELF PAY [facility] Number: Effective Repository Date:2017-11-30 12/07/2017 José Miguel Markham Primary Insurance:[facility] Iva Larry [id number] [facility]: [facility] [id number], [place] Number: Repository [address]Yti: 330 [id number] [phone] (HP) Date:6102-59-76NM [address] [address]LBFYFPQOL, [place] [address]JL: CHECK WEBSITE 12/07/2017 Secondary NOT GIVENUNK [place] Insurance:SELF PAY [facility] Number: Effective Repository Date:2017-11-15 12/06/2017 José Miguel Markham Primary Insurance:[facility] Iva Larry [id number] [facility]: [facility] 4720-01-16[place]IC[place], [place] Number: Repository [address]Jwc: 330 [id number] [phone] (HP) Date:2640-75-56QY [address] [address]BTLCWHFHO, [place] [address]AH: CHECK WEBSITE 12/06/2017 Secondary NOT GIVENUNK [place] Insurance:SELF PAY [facility] Number: Effective Repository Date:2017-11-15 12/05/2017 José Miguel Markham Primary Insurance:[facility] Iva Larry [id number] [facility]: [facility] [id number], [place] Number: Repository [address]Fqu: 330 [id number] [phone] (HP) Date:3183-10-08PT [address] [address]UJWTWSFCA, [place] [address]CX: CHECK WEBSITE 12/05/2017 Secondary NOT GIVENUNK [place] Insurance:SELF PAY [facility] Number: Effective Repository Date:2017-11-15 12/04/2017 José Miguel Markham Primary Insurance:[facility] Iva Larry [id number] [facility] HospitalD[facility]: [facility] [id number], [place] Number: Repository [id number]: 330 [id number] [phone] (HP) Date:7693-03-04CA [address] [address]QU[place]FACZS, [place] [address]DA: CHECK WEBSITE 12/04/2017 Secondary NOT GIVENUNK [place] Insurance:SELF PAY [facility] Number: Effective Repository Date:2017-11-15 12/03/2017 José Miguel Markham Primary Insurance:[facility] Iva Larry [id number] [facility]: [facility] 8360-88-83JOFDon[place], [place] Number: Repository [address]Okh: 330 [id number] [phone] (HP) Date:4674-62-48QS [address] [address]EQKPEAAAB, [place] [address]DK: CHECK WEBSITE 12/03/2017 Secondary NOT GIVENUNK [place] Insurance:SELF PAY [facility] Number: Effective Repository Date:2017-11-15 11/28/2017 José Miguel Markham Primary Insurance:[facility] Iva Larry [id number] [facility] HospitalD[facility]: [facility] 7291-44-90SZODonner, [place] Number: Repository [address]Rxh: (384) [id number] [phone] Date:7720-39-76SR [address] [address]XDBPAVXWH, [place] [address]HP: CHECK WEBSITE 11/28/2017 Secondary NOT GIVENUNK [place] Insurance:SELF PAY [facility] Number: Effective Repository Date:2017-10-29
== END ==
PROVIDERS: Family Provider Family Medicine; PCP Family Medicine; Referring Provider Internal Medicine Hematology & Oncology; Visit Provider Internal Medicine Hematology & Oncology
DX: Z51.11 Encounter for antineoplastic chemotherapy (principal); C56.1 Malignant neoplasm of right ovary; C56.2 Malignant neoplasm of left ovary; C78.7 Secondary malignant neoplasm of liver and intrahepatic bile duct
CPT/HCPCS: 36591; 80053; 85025; 86304; 96367; 96376; 96413; 96417; J7050; A4216; J1453; J2405; J3490; J9035; J9351

== ENCOUNTER → 2018-11-20 13:05 | Outpatient (CLI) | payer OTHER, SELFPAY ==
[2018-10-11 13:21] VITALS: BMI 30.9
[2018-11-19 13:13] VITALS: BMI 30.9
[2018-11-20 13:10] VITALS: BP 133/75; PULSE 70; RESP 18; TEMP 35.7; O2SAT 99; BMI 29.7
--- OUTSIDE RECORDS SUMMARY | 2019-01-22 12:09 | XMS RPT_ITS ---
:1955 Author Organization [place] Support Name Relationship Address Phone JOSÉ MIGUEL CUEVA Unavailable [address] + [place] [address] R Unavailable Unavailable Unavailable JOSÉ MIGUEL CUEVA Unavailable [address] + [place] [address] R Unavailable Unavailable Unavailable JOSÉ MIGUEL CUEVA Unavailable [address] + [place] [address] R Unavailable Unavailable Unavailable JOSÉ MIGUEL CUEVA Unavailable [address] + [place] [address] R Unavailable Unavailable Unavailable JOSÉ MIGUEL CUEVA Unavailable [address] + [place] [address] R Unavailable Unavailable Unavailable JOSÉ MIGUEL CUEVA Unavailable [address] + [place] [address] R Unavailable Unavailable Unavailable JOSÉ MIGUEL CUEVA Unavailable [address] + [place] [address] R Unavailable Unavailable Unavailable JOSÉ MIGUEL CUEVA Unavailable [address] + [place] [address] R Unavailable Unavailable Unavailable JOSÉ MIGUEL CUEVA Unavailable [address] + [place] [address] R Unavailable Unavailable Unavailable JOSÉ MIGUEL CUEVA Unavailable [address] + [place] [address] R Unavailable Unavailable Unavailable JOSÉ MIGUEL CUEVA Unavailable [address] + [place] [address] R Unavailable Unavailable Unavailable JOSÉ MIGUEL CUEVA Unavailable [address] + [place] [address] R Unavailable Unavailable Unavailable MAIBACH, JOSÉ MIGUEL Unavailable [address] + [place] [address] R Unavailable Unavailable Unavailable MAIBACH, JOSÉ MIGUEL Unavailable [address] + [place] [address] R Unavailable Unavailable Unavailable MAIBACH, JOSÉ MIGUEL Unavailable [address] + [place] [address] R Unavailable Unavailable Unavailable MAIBACH, JOSÉ MIGUEL Unavailable [address] + [place] [address] R Unavailable Unavailable Unavailable MAIBACH, JOSÉ MIGUEL Unavailable [address] + [place] [address] R Unavailable Unavailable Unavailable MAIBACH, JOSÉ MIGUEL Unavailable [address] + [place] [address] R Unavailable Unavailable Unavailable MAIBACH, JOSÉ MIGUEL Unavailable [address] + [place] [address] R Unavailable Unavailable Unavailable MAIBACH, JOSÉ MIGUEL Unavailable [address] + [place] [address] R Unavailable Unavailable Unavailable MAIBACH, JOSÉ MIGUEL Unavailable [address] + [place] [address] R Unavailable Unavailable Unavailable MAIBACH, JOSÉ MIGUEL Unavailable [address] + [place] [address] R Unavailable Unavailable Unavailable MAIBACH, JOSÉ MIGUEL Unavailable [address] + [place] [address] R Unavailable Unavailable Unavailable MAIBACH, JOSÉ MIGUEL Unavailable [address] + [place] [address] R Unavailable Unavailable Unavailable MAIBACH, JOSÉ MIGUEL Unavailable [address] + [place] [address] R Unavailable Unavailable Unavailable MAIBACH, JOSÉ MIGUEL Unavailable [address] + [place] [address] R Unavailable Unavailable Unavailable MAIBACH, JOSÉ MIGUEL Unavailable [address] + [place] [address] R Unavailable Unavailable Unavailable MAIBACH, JOSÉ MIGUEL Unavailable [address] + [place] [address] R Unavailable Unavailable Unavailable MAIBACH JOSÉ MIGUEL Unavailable [address] + [place] [address] R Unavailable Unavailable Unavailable OSCAR CUEVAEN Unavailable [address] + [place] [address] R Unavailable Unavailable Unavailable MAYAMILCH, JOSÉ MIGUEL Unavailable [address] + [place] [address] R Unavailable Unavailable Unavailable MAIBACH, JOSÉ MIGUEL Unavailable [address] + [place] [address] R Unavailable Unavailable Unavailable MAIBACH, JOSÉ MIGUEL Unavailable [address] + [place] [address] R Unavailable Unavailable Unavailable MAIBACH, JOSÉ MIGUEL Unavailable [address] + [place] [address] R Unavailable Unavailable Unavailable ANAY JOSÉ MIGUEL Unavailable [address] + [place] [address] R Unavailable Unavailable Unavailable YVROSEIBACH, JOSÉ MIGUEL Unavailable [address] + [place] [address] R Unavailable Unavailable Unavailable ANAY JOSÉ MIGUEL Unavailable [address] + [place] [address] R Unavailable Unavailable Unavailable СВЕТЛАНАCH, JOSÉ MIGUEL Unavailable [address] + [place] [address] R Unavailable Unavailable Unavailable ANAY JOSÉ MIGUEL Unavailable [address] + [place] [address] R Unavailable Unavailable Unavailable YVROSEIBACH, JOSÉ MIGUEL Unavailable [address] + [place] [address] R Unavailable Unavailable Unavailable YVROSEIBACH, JOSÉ MIGUEL Unavailable [address] + [place] [address] R Unavailable Unavailable Unavailable YVROSEIBACH, JOSÉ MIGUEL Unavailable [address] + [place] [address] R Unavailable Unavailable Unavailable СВЕТЛАНАCH, JOSÉ MIGUEL Unavailable [address] + [place] [address] R Unavailable Unavailable Unavailable ANAY, JOSÉ MIGUEL Unavailable [address] + [place] [address] R Unavailable Unavailable Unavailable ANAY JOSÉ MIGUEL Unavailable [address] + [place] [address] R Unavailable Unavailable Unavailable MAIBACH JOSÉ MIGUEL Unavailable [address] + [place] [address] R Unavailable Unavailable Unavailable СВЕТЛАНАCH, JOSÉ MIGUEL Unavailable [address] + [place] [address] R Unavailable Unavailable Unavailable MAIBACH, JOSÉ MIGUEL Unavailable [address] + [place] [address] R Unavailable Unavailable Unavailable MAIBACH, JOSÉ MIGUEL Unavailable [address] + [place] [address] R Unavailable Unavailable Unavailable СВЕТЛАНАCH JOSÉ MIGUEL Unavailable [address] + [place] [address] R Unavailable Unavailable Unavailable ANAY JOSÉ MIGUEL Unavailable [address] + [place] [address] R Unavailable Unavailable Unavailable OSCAR CUEVAEN Unavailable [address] + [place] [address] R Unavailable Unavailable Unavailable OSCAR CUEVAEN Unavailable [address] + [place] [address] R Unavailable Unavailable Unavailable OSCAR CUEVAEN Unavailable [address] + [place] [address] R Unavailable Unavailable Unavailable СВЕТЛАНАCH JOSÉ MIGUEL Unavailable [address] + [place] [address] R Unavailable Unavailable Unavailable ANAY JOSÉ MIGUEL Unavailable [address] + [place] [address] R Unavailable Unavailable Unavailable YVROSEIBACH, JOSÉ MIGUEL Unavailable [address] + [place] [address] R Unavailable Unavailable Unavailable YVROSEIBACHOSCAREN Unavailable [address] + [place] [address] R Unavailable Unavailable Unavailable ANAY, JOSÉ MIGUEL Unavailable [address] + [place] [address] R Unavailable Unavailable Unavailable MAIBACH, JOSÉ MIGUEL Unavailable [address] + [place] [address] R Unavailable Unavailable Unavailable MAIBACH, JOSÉ MIGUEL Unavailable [address] + [place] [address] R Unavailable Unavailable Unavailable MAIBACH, JOSÉ MIGUEL Unavailable [address] + [place] [address] R Unavailable Unavailable Unavailable MAIBACH, JOSÉ MIGUEL Unavailable [address] + [place] [address] R Unavailable Unavailable Unavailable MAIBACH, JOSÉ MIGUEL Unavailable [address] + [place] [address] R Unavailable Unavailable Unavailable MAIBACH, JOSÉ MIGUEL Unavailable [address] + [place] [address] R Unavailable Unavailable Unavailable MAIBACH, JOSÉ MIGUEL Unavailable [address] + [place] [address] R Unavailable Unavailable Unavailable MAIBACH, JOSÉ MIGUEL Unavailable [address] + [place] [address] R Unavailable Unavailable Unavailable MAIBACH, JOSÉ MIGUEL Unavailable [address] + [place] [address] R Unavailable Unavailable Unavailable MAIBACH, JOSÉ MIGUEL Unavailable [address] + [place] [address] R Unavailable Unavailable Unavailable MAIBACH, JOSÉ MIGUEL Unavailable [address] + [place] [address] R Unavailable Unavailable Unavailable MAIBACH, JOSÉ MIGUEL Unavailable [address] + [place] [address] R Unavailable Unavailable Unavailable MAIBACH, JOSÉ MIGUEL Unavailable [address] + [place] [address] R Unavailable Unavailable Unavailable MAIBACH, JOSÉ MIGUEL Unavailable [address] + [place] [address] R Unavailable Unavailable Unavailable MAIBACH, JOSÉ MIGUEL Unavailable [address] + [place] [address] R Unavailable Unavailable Unavailable MAIBACH, JOSÉ MIGUEL Unavailable [address] + [place] [address] R Unavailable Unavailable Unavailable YVROSEIBACHJOSÉ MIGUEL Unavailable [address] + [place] [address] R Unavailable Unavailable Unavailable YVROSEIBAJOSÉ MIGUEL CARDENAS Unavailable [address] + [place] [address] R Unavailable Unavailable Unavailable YVROSEIBACHJOSÉ MIGUEL Unavailable [address] + [place] [address] R Unavailable Unavailable Unavailable JOSÉ MIGUEL CUEVA Unavailable [address] + [place] [address] R Unavailable Unavailable Unavailable YVROSEIBACHJOSÉ MIGUEL Unavailable [address] + [place] [address] R Unavailable Unavailable Unavailable JOSÉ MIGUEL CUEVA Unavailable [address] + [place] [address] R Unavailable Unavailable Unavailable JOSÉ MIGUEL CUEVA Unavailable [address] + [place] [address] R Unavailable Unavailable Unavailable JOSÉ MIGUEL CUEVA Unavailable [address] + [place] [address] [facility] Unavailable [address] + [place] [address] Care Team Providers Name Role Phone OMAR [...] MASCI, OMAR Lucia Referring Unavailable PAIGE QUEEN (CRIMINAL JUSTICE PROGRAM DIRECTOR) Referring Unavailable THELMA LAPERIC Referring Unavailable MASCI, [...] Omar Attending Unavailable Masci, Omar Referring Unavailable [facility] Unavailable Masci, Omar Attending Unavailable Masci, Omar Referring [facility]available [facility] Un[facility] Masci, Omar Attending Unavailable Masci, Omar Referring Unavailable [facility] Unavailable Masci, Omar Attending Unavailable Masci, Omar Referring Unavailable [facility] Unavailable Masci, Omar Attending Unavailable Masci, Omar Referring Unavailable [facility] Unavailable Masci, Omar Attending Unavailable Masci, Omar Referring Unavailable [facility] Unavailable Masci, Omar Attending Unavailable [facility] Unavailable Masci, Omar Attending Unavailable Masci, Omar Referring Unavailable [facility] Unavailable Masci, Omar Attending Unavailable Masci, Omar Referring Unavailable [facility] Unavailable Masci, Omar Attending Unavailable Masci, Omar Referring Unavailable [facility] Unavailable Masci, Omar Attending Unavailable Masci, Omar Referring Unavailable [facility] Unavailable Masci, Omar Attending Unavailable Masci, Omar Referring Unavailable [facility] Unavailable Masci, Omar Attending Unavailable Masci, Omar Referring Unavailable [facility] Unavailable Masci, Omar Attending Unavailable Masci, Omar Referring Unavailable [facility] Unavailable Masci, Omar Attending Unavailable Masci, Omar Referring Unavailable [facility] Unavailable Masci, Omar Attending Unavailable Masci, Omar Referring Unavailable [facility] Unavailable Masci, Omar Attending Unavailable Masci, Omar Referring Unavailable [facility] Unavailable Masci, Omar Attending Unavailable Masci, Omra Referring Unavailable [facility] Unavailable Masci, Omar Attending Unavailable Masci, Omar Referring Unavailable [facility] Unavailable Masci, Omar Attending Unavailable Masci, Omar Referring Unavailable [facility] Unavailable Masci, Omar Attending Unavailable Masci, Omar Referring Unavailable [facility] Unavailable Masci, Omar Attending Unavailable Masci, Omar Referring Unavailable [facility] Unavailable Masci, Omar Attending Unavailable Masci, Omar Referring Unavailable [facility] Unavailable Masci, Omar Attending Unavailable Masci, Omar Referring Unavailable [place] [place] [facility] Unavailable Masci, Omar Attending Unavailable Masci, Omar Referring Unavailable [facility] Un[facility] Masci, Omar Attending Unavailable Masci, Omar Referring Unavailable [facility] Un[facility] Masci, Omar Attending Unavailable Masci, Omar Referring Unavailable [place] [place] [facility] Unavailable Masci, Omar Attending Unavailable Masci, Omar Referring Unavailable [facility] Unavailable Masci, Omar Attending Unavailable Masci, Omar Referring Unavailable [facility] Un[facility] Masci, Omar Attending Unavailable Masci, Omar Referring Unavailable [facility] [place] [facility] Unavailable Masci, Omar Attending Unavailable Masci, Omar Referring Unavailable [facility] Unavailable Masci, Omar Attending Unavailable Masci, Omar Referring Unavailable [facility] Unavailable Masci, Omar Attending Unavailable Masci, Omar Referring Unavailable [facility] [place] [facility] Unavailable Masci, Omar Attending Unavailable Masci, Omar Referring Unavailable [facility] Unavailable Masci, Omar Attending Unavailable Masci, Omar Referring Unavailable [facility] Unavailable Masci, Omar Attending Unavailable Masci, Oamr Referring Unavailable [facility] Unavailable Masci, Omar Attending Unavailable Masci, Omar Referring Unavailable [facility] Unavailable Masci, Omar Attending Unavailable Masci, Omar Referring Unavailable [facility] Unavailable Masci, Omar Attending Unavailable Masci, Omar Referring Unavailable [facility] Unavailable Masci, Omar Attending Unavailable Masci, Omar Referring Unavailable [facility] Unavailable Masci, Omar Attending Unavailable Masci, Omar Referring Unavailable [facility] Unavailable Masci, Omar Attending Unavailable Masci, Omar Referring Unavailable [facility] Unavailable Masci, Omar Attending Unavailable Masci, Omar Referring Unavailable [facility] Unavailable Masci, Omar Attending Unavailable Masci, Omar Referring Unavailable [facility] Unavailable Masci, Omar Attending Unavailable Masci, Omar Referring Unavailable [facility] [place] [facility] Unavailable Masci, Omar Attending Unavailable Masci, Omar Referring Unavailable [facility] Unavailable Masci, Omar Attending Unavailable Masci, Omar Referring Unavailable [place] [place] [facility] Unavailable Masci, Omar Attending Unavailable Masci, Omar Referring Unavailable [place] [place] [facility] Unavailable Masci, Omar Attending Unavailable Masci, Omar Referring Unavailable [place] [place] [facility] Unavailable Masci, Omar Attending Unavailable Masci, Omar Referring Unavailable [place] [place] [facility] Unavailable Masci, Omar Attending Unavailable Masci, Omar Referring Unavailable [place] [place] [facility] Unavailable Masci, Omar Attending Unavailable Masci, Omar Referring Unavailable [facility] [place] [facility] Unavailable Masci, Omar Attending Unavailable Masci, Omar Referring Unavailable [place] [place] [facility] Unavailable Masci, Omar Attending Unavailable Masci, Omar Referring Unavailable [facility] [place] [facility] Unavailable Masci, Omar Attending Unavailable Masci, Omar Referring Unavailable [facility] [place] [facility] Unavailable Masci, Omar Attending Unavailable Masci, Omar Referring Unavailable [facility] [place] [facility] Unavailable Masci, Omar Attending Unavailable Masci, Omar Referring Unavailable [facility] [place] [facility] Unavailable Masci, Omar Attending Unavailable Masci, Omar Referring Unavailable [facility] [place] [facility] Unavailable Masci, Omar Attending Unavailable Masci, Omar Referring Unavailable [facility] [place] [facility] Unavailable Masci, Omar Attending Unavailable Masci, Omar Referring Unavailable [facility] [place] [facility] Unavailable Masci, Omar Attending Unavailable Masci, Omar Referring Unavailable [facility] [place] [facility] Unavailable Masci, Omar Attending Unavailable Masci, Omar Referring Unavailable [facility] [place] [facility] Unavailable Masci, Omar Attending Unavailable Masci, Omar Referring Unavailable [facility] [place] [facility] Unavailable Masci, Omar Attending Unavailable Masci, Omar Referring Unavailable [facility] Unavailable Masci, Omar Attending Unavailable Masci, Omar Referring Unavailable [facility] Unavailable Masci, Omar Attending Unavailable Masci, Omar Referring Unavailable [facility] [place] [facility] Unavailable Masci, Omar Attending Unavailable Masci, Omar Referring Unavailable [facility] [place] [facility] Unavailable Masci, Omar Attending Unavailable Masci, Omar Referring Unavailable [facility] [place] [facility] Unavailable Masci, Omar Attending Unavailable Masci, Omar Referring Unavailable [facility] [place] [facility] Unavailable Masci, Omar Attending Unavailable Masci, Omar Referring Unavailable [facility] [place] [facility] Unavailable Masci, Omar Attending Unavailable Masci, Omar Referring Unavailable [facility] [place] [facility] Unavailable Masci, Omar Attending Unavailable Masci, Omar Referring Unavailable [facility] [place] [facility] Unavailable Masci, Omar Attending Unavailable Masci, Omar Referring Unavailable [facility] [place] [facility] Unavailable Masci, Omar Attending Unavailable Masci, Omar Referring Unavailable [facility] [place] [facility] Unavailable Masci, Omar Attending Unavailable Masci, Omar Referring Unavailable [facility] [place] [facility] Unavailable Marcanthony, Marcy Attending Unavailable [facility] Referring Unavailable Marcanthony, Marcy Attending Unavailable Marcanthony, Marcy Referring Unavailable [facility] [place] [facility] Unavailable Masci, Omar Attending Unavailable Masci, Omar Referring Unavailable [facility] [place] [facility] Unavailable Masci, Omar Attending Unavailable Masci, Omar Referring Unavailable [facility] [place] [facility] Unavailable Masci, Omar Attending Unavailable Masci, Omar Referring Unavailable [place] [place] [facility] Unavailable Masci, Omar Attending Unavailable Masci, Omar Referring Unavailable [place] [place] [facility] Unavailable Masci, Omar Attending Unavailable Masci, Omar Referring Unavailable [place] [place] [facility] Unavailable Masci, Omar Attending Unavailable Masci, Omar Referring Unavailable [facility] [place] [facility] Unavailable PROBLEMS PROBLEMS DATE TYPE CONDITION / CODE ATTENDING STATUS SOURCE 10/28/2018 Active Malignant neoplasm of NA Active [facility] unspecified ovary / Clinic Main C56.9(ICD-10) [place] Rep[facility] 10/28/2018 Active Disseminated malignant NA Active [facility] neoplasm, unspecified Clinic Main / C80.0(ICD-10) [place] Rep[facility] 10/28/2018 Active Unknown / UNK(Unknown) NA Active [facility] [place] [facility] 09/17/2018 Unknown N63.20 - Unspecified Marcanthony, Active [place] lump in the left [facility] breast, unspecified Hospital quadrant / Repository N63.20(ICD-10) 08/29/2018 Unknown C56.1 - Malignant Omar Gross Active [place] neoplasm of right [facility] ovary / C56.1(ICD-10) Hospital Repository 07/04/2018 Active Nausea with vomiting, OMAR GROSS Active [facility] unspecified / Clinic Main R11.2(ICD-10) [place] Rep[facility] 07/04/2018 Active Adverse effect of OMAR GROSS Active [facility] antineoplastic and Clinic Main immunosuppressive [place] drugs, initial Repository encounter / T45.1X5A(ICD-10) 02/15/2016 Active Malignant neoplasm of NA Active [facility] right ovary / Clinic Main C56.1(ICD-10) [place] Rep[facility] 02/15/2016 Active Malignant neoplasm of NA Active [facility] left ovary / Clinic Main C56.2(ICD-10) [place] Rep[facility] 04/24/2018 Unknown Z51.11 - Encounter for Omar Gross Active [place] antineoplastic [facility] chemotherapy / Hospital Z51.11(ICD-10) Repository 04/24/2018 Unknown C56.9 - Malignant Omar Gross Active [place] neoplasm of [facility] unspecified ovary / Hospital C56.9(ICD-10) Repository PROCEDURES PROCEDURES No Procedure Records FoundRESULTS RESULTS CBC W/DIFF, AUTOMATED Collected: 11/19/2018 Status: F Source: [place] 9:58 AM [facility] HOSPITAL REPOSITORY TYPE CODE TESTS RESULT OUT [...] Lymph 1.70 Performed By: #### L100.0100 #### [facility] [place], [address] COMPREHENSIVE METABOLIC Collected: 11/19/2018 Status: F Source: [place] [facility] 9:58 AM [facility] [...] GAP 7 Performed By: #### L500.4050 #### [facility] [place], [address] CANCER ANTIGEN 125 Collected: 11/19/2018 Status: F Source: [place] 9:58 AM [facility] REPOSITORY TYPE CODE TESTS RESULT OUT OF RANGE REFERENCE UNITS LAB L3100.5000 0.0-38.1 U/mL High CA125 136.2 2303 Result Comment: [facility] Electrochemiluminescence Immunoassay (ECLIA) Values obtained with different assay methods or kits cannot be used interchangeably. Results cannot be interpreted as absolute evidence of the presence or absence of malignant disease. Performed at: [facility] [address] [id number] [employer] Ticketer: Carlo Bass PhD, Phone: [phone] Performed By: #### L3100.5000 #### [facility] (refer to report for specific site) refer to report for address and phone number NURSING PROG Observed: 11/04/2018 Status: COMPLETED Source: [place] 8:00 PM [facility] REPOSITORY HNO ID: [id number] Author: Amara Bishop) MARTELL De La Torre Service: (none) Author Type: LICENSED NURSE Type: Nursing Progress Note Filed: 11/05/2018 8:43 AM Note Text: Radiology post procedure telephone follow-up call attempted. Left voice message requesting a return phone call to [phone] if experiencing any problems or concerns. After hours please call [phone] and ask for pager [phone] SURGICAL PATHOLOGY Observed: 11/04/2018 Status: C Source: [place] 4:00 PM [facility] REPOSITORY ADDENDUM PRESENT Specimen originated from [facility] Specimen #: [id number] Submitting Physician: OMID GEE MD FINAL DIAGNOSIS [...] in one cassette. Gross examination performed at [facility], [address] [place] [address] 11/04/2018 9:34:25 PM Date of Report: 11/05/2018 Date of Procedure: 11/04/2018 Date of Receipt: 11/04/2018 Submitted by: OMID GEE MD Additional Physician(s): OMAR GROSS M.D. ([id number]) Location: [facility] Diagnostic interpretation performed at [facility], [address] [place] [address]. [address] BIOPSY ABD/RETROPERIT Observed: 11/04/2018 Status: F Source: [facility] 3:48 PM [facility] REPOSITORY * * *Final Report* * * DATE OF EXAM: Nov 04 2018 3:48PM [facility] [place] BIOPSY ABD/RETROPERIT MASS / [...] and omental/peritoneal nodules. STAFF RADIOLOGIST: Dr. Gee DIRECTOR OF CONVENTION SERVICES(S): Mariana Wood APRN, CNP CONSENT: The risks, [...] The procedure was performed by the: the restaurant assistant, and the attending radiologist personally supervised [...] GUIDED OMENTAL MASS BIOPSY DESCRIBED v 10/31/16 Alignment Technician: PSCB Transcribe Date/Time: Nov 04 2018 3:49P Dictated by : OMID GEE MD This examination was interpreted and the report reviewed and electronically signed by: OMID GEE MD on Nov 04 2018 4:34PM EST [id number] BRIEF OP NOT Observed: 11/04/2018 Status: COMPLETED Source: [place] 3:46 PM [facility] REPOSITORY [facility] ID: [id number] Author: Mariana Wood Service: Radiology Author Type: Nurse Practitioner Type: Brief Op Note Filed: 11/04/2018 3:47 PM Note Text: BRIEF OPERATIVE / PROCEDURE NOTE LOG ID: [id number] SURGERY/PROCEDURE DATE: 11/04/2018 INCISION/PROCEDURE START TIME: 3:19 PM INCISION CLOSE/PROCEDURE END TIME: 3:33 PM SURGEON(S)/PROCEDURALIST(S) AND DIRECTOR OF CONVENTION SERVICES(S): Surgeon(s) and Role: * Omid Gee - Primary Mariana Wood STAFF RADIOLOGIST CRIMINAL JUSTICE PROGRAM DIRECTOR- Buckle Assembler SURGERY/PROCEDURE(S): CT guided biopsy of peritoneal nodule ANESTHESIA: Procedural Sedation FINDINGS: nodule consistent with previous imaging ESTIMATED BLOOD LOSS: minimal SPECIMENS: four 18 gauge cores COMPLICATIONS: None PRE-OP/PRE-PROCEDURE DIAGNOSIS: 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 POST-OP/POST-PROCEDURE DIAGNOSIS: Same as above SIGNATURE: Mariana Wood APRN.CNP PATIENT NAME: Iva Cueva DATE: November 04, 2018 TIME: 3:46 PM PAGER/CONTACT #: [phone] PROGRESS Observed: 11/04/2018 Status: COMPLETED Source: [place] 3:44 PM [facility] REPOSITORY HNO ID: [id number] Author: AWA Stroud (Ct) Service: (none) Author Type: Clinical Casing Operator Type: Progress Notes Filed: 11/04/2018 3:49 PM [...] PT ED Observed: 11/04/2018 Status: COMPLETED Source: [place] 2:47 PM [facility] REPOSITORY HNO ID: [id number] Author: Griselda Lynch) TOMÁS Rodriguez Service: (none) [...] HISTORY PHYSICAL Observed: 11/04/2018 Status: COMPLETED Source: [place] 2:20 PM [facility] REPOSITORY HNO ID: [id number] Author: Omid Gee Service: Radiology Author Type: [...] November 04, 2018 TIME: 2:20 PM PAGER: [phone] CBC Collected: 11/01/2018 Status: F Source: [place] 1:16 PM [facility] REPOSITORY TYPE CODE TESTS RESULT OUT [...] nRBC <0.01 Performed By: #### CBC #### [facility] [address] [place], [place] [id number] PROTIME Collected: 11/01/2018 Status: F Source: [place] 1:15 PM [facility] REPOSITORY TYPE CODE TESTS RESULT OUT OF RANGE REFERENCE UNITS LAB PSEC 9.7-13.0 sec PT Sec 10.5 LAB INR 0.9-1.3 PT INR 1.0 Result Comment: Vitamin K Antagonist (VKA) Therapeutic Range: INR 2 to 3 (Target INR of 2.5) Note: For patients treated with VKA drugs, such as warfarin, the [place] [employer] 2012 Guideline recommends [...] 70: 252-289 Performed By: #### PT #### [facility] [address] [place], [place] [id number] NURSING PROG Observed: 10/31/2018 Status: COMPLETED Source: [place] 1:29 PM [facility] REPOSITORY HNO ID: [id number] Author: Amara De La Torre LPN Service: (none) Author Type: LICENSED NURSE Type: Nursing Progress Note Filed: 10/31/2018 1:39 PM Note Text: Pre-procedure phone calls: Contacted Iva Cueva and confirmed appt. for Biopsy scheduled on 11/04/2018, at [facility]. I will be providing you with instructions [...] to be drawn by 11/01/2018 at the [facility] closest to your home or your procedure will be rescheduled. Arrival: Please bring your Photo ID and Insurance Card. A general consent may need to be signed. Arrive to [facility] ([facility]) Admitting/Registration by 12:30pm. Then proceed to desk B-1 ([facility]) and check in for your procedure. Your anticipated procedure start time will be between 2 AND 2:30pm. Urologist Physician/Transportation: How will you be arriving for your procedure? private car. If you will be arriving at [facility] via ambulance or public transportation, please call to discuss. You will need a responsible adult to accompany you to and from the procedure. Your courtesy driver is required to stay with you [...] you... What is your arrival time to [facility]? 1230pm What time do you stop eating food? 6am What time can you have clears until? 12 noon Tell me how you will be taking your medications the morning of your procedure? water Written instructions provided to patient via [facility] If you have any questions please call [phone] HOSP Observed: 10/31/2018 Status: COMPLETED Source: [place] 12:00 AM [facility] REPOSITORY Patient:Iva Cueva MRN: <[id number]> Height:5' 4(1.626 m) Weight:183 lb (83.008 kg) [...] % 11/01/2018 46.0 36.0 Progress Notes ([facility]): Ania Reed LPN, SUMAC TANNER 11/01/2018 9:11 AM Signed Diane Ragland Wstr Hem/Onc Pool Cc: Randa Davison (Cbo) ? Good morning All, I am contacting you from the Precertification Department here at the [place] [facility]. Iva Cueva, , is being reviewed for the following procedure: 45939- CT Chest on 10/28/2018. Clinical has been submitted to the patient's insurance company [employer] and the request was denied. Please see [...] Who can complete peer to peer: , SECRETARY BOOK KEEPER, PA, you need to get verbal consent from the patient in order to complete the peer review as the insurance will ask if verbal consent has been obtained prior to the peer review. Peer to Peer Information: Peer to peer phone #: [phone] (option 4, 2) Appeal fax #: [phone] Appeal mailing address: [facility] Attn: Appeals [address] [place] [address], [place] [address] Case reference #: [id number] [facility] NPI :[id number] ?[facility] TAX ID [id number] Thank you for your attention to this matter, Diane Queen APRN.ILDEFONSO 11/01/2018 10:32 AM Signed Peer to peer scheduled for Sunday at 8a.m. ZACARIAS Amin APRN.CNP 11/04/2018 8:42 AM Signed Approved. #[id number]. Paige Queen APRN.CNP Progress Notes ([facility]): Rosy Roth Psr 10/31/2018 12:25 PM Signed Patient wanted to give Dr. Gross a heads up that she is having a procedure on Sunday11-04-18 at [facility]. She also wanted to talk about the chemo schedules she will be traveling a lot not sure how it is going to fit into her schedule. She would like for Dr Gross give her a call so she may talk to him. Omar Gross DO 10/31/2018 1:16 PM Signed I spoke with her. DO SHAZIA Dominguez Observed: 10/30/2018 Status: COMPLETED Source: [place] 12:00 AM [facility] REPOSITORY Telephone (HEMAWS) IVA CUEVA ([id number]) 1955 F Date Time Provider Department 10/30/18 [...] order for this to be done at [facility]. Let's arrange for her. DO Lora [facility]inguez Psr [facility] 10/30/2018 9:51 AM Signed Called call center to be triaged - [phone] Once triaged, they will call patient to schedule. Radha Galan Psr 10/30/2018 9:52 AM Signed RADIOLOGY CALL CENTER INTAKE ENTRY LEVEL RECEPTIONIST: radha EXT: [phone] DATE: October 30, 2018 TIME: 9:46 AM TRACKING #. [phone] REQUESTING PERSON: rody PHONE/PAGER: [phone] REQUESTING STAFF: Dr gross PHONE/PAGER: [phone] ORDERING DESK LOCATION: [facility] If inpatient, patient location: Never done (Note: requests for inpatient's procedures should be given to the O.D. nurse at pager #[phone]) If outpatient, best way to reach patient: [...] biopsies do not need imaging.) IMAGING: [facility] (If the imaging was obtained outside the [facility] system, then it needs to be submitted for review prior to approval.) Note to all persons requesting biopsies: All biopsy requests will be scheduled as quickly as possible, based on the clinical urgency, availability of appointment times, the need to hold anti-thrombolytic therapy (aspirin, blood thinners) and the patient?s schedule, including the need for an available courtesy driver. If a percutaneous biopsy or drainage is not felt to be safe or an alternative method for establishing a diagnosis is possible, this will be discussed directly with the requesting physician. Amara De La Torre LPN, SUMAC TANNER 10/30/2018 2:46 PM Signed . BX. COORDINATOR [...] October 30, 2018 TIME: 2:46 PM Hari Barargan MD 10/30/2018 3:09 PM Signed RADIOLOGIST REQUEST [...] Fully Assessed Reason for Visit: Biopsy Request [1575] Primary Visit Diagnosis:Cancer of both ovaries (HCC) [C56.1, C56.2] Order(s):IMAGING GUIDED BIOPSY ABDOMEN/RETROPERITONEAL MASS [[id number]] Order #: [id number] Prescriptions as of 10/30/2018 Sig: ZOLPIDEM 5 [...] 10/31/18 PROGRESS Observed: 10/28/2018 Status: COMPLETED Source: [place] 3:19 PM [facility] REPOSITORY HNO ID: [id number] Author: Ofelia Jones Service: (none) Author Type: [...] W IVCON Observed: 10/28/2018 Status: F Source: [place] 3:19 PM [facility] [place] REPOSITORY * * *Final Report* * * DATE OF EXAM: Oct 28 2018 3:19PM [facility] 0539 - CT CHEST W IVCON / [...] Small amount of fluid in the pelvis Alignment Technician: AVA Transcribe Date/Time: Oct 28 2018 4:11P Dictated by : CARLOS ALBERTO HASKINS MD This examination was interpreted and the report reviewed and electronically signed by: CARLOS ALBERTO HASKINS MD on Oct 28 2018 4:49PM EST [id number] CT ABD/PEL W IVCON Observed: 10/28/2018 Status: F Source: [place] 3:19 PM [facility] REPOSITORY * * *Final Report* * * DATE OF EXAM: Oct 28 2018 3:19PM [facility] 0530 - CT ABD/PEL W IVCON / [...] Small amount of fluid in the pelvis Alignment Technician: PSCB Transcribe Date/Time: Oct 28 2018 4:11P Dictated by : CARLOS ALBERTO HASKINS MD This examination was interpreted and the report reviewed and electronically signed by: CARLOS ALBERTO HASKINS MD on Oct 28 2018 4:49PM EST [id number] CANCER ANTIGEN 125 Collected: 10/25/2018 Status: F Source: [place] 11:42 AM [facility] REPOSITORY TYPE CODE TESTS RESULT OUT OF RANGE REFERENCE UNITS LAB L3100.5000 0.0-38.1 U/mL High CA125 78.9 2303 Result Comment: Cytox ECLIA methodology Performed at: [facility] [address] [id number] Harvest Field Ticketer: Carlo Bass PhD, Phone: [phone] Performed By: #### L3100.5000 #### [facility] (refer to report for specific site) refer to report for address and phone number PROGRESS Observed: 10/24/2018 Status: COMPLETED Source: [place] 4:14 PM [facility] [place] REPOSITORY HNO ID: [id number] Author: Omar Gross Service: (none) Author Type: Physician Type: Progress Notes Filed: 10/24/2018 8:10 PM Note Text: Diagnosis: 1) Ovarian cancer. ? HPI: The patient is a 63 year old female who presented to her PCP prior to a trip to [facility] for vaccinations. She reported that she [...] Taxol x 6 cycles, completed 05/27/13. 6) Ransom/carbo/cassandra x cycles for biopsy proven metastatic disease [...] No jaundice or rash. No petechiae. 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 No focal motor [...] DO CNOVSP Observed: 10/24/2018 Status: COMPLETED Source: [place] 4:00 PM [facility] REPOSITORY [facility] (SP[facility] ([id number]) 1955 F Date Time Provider Department 10/24/18 [...] her PCP prior to a trip to [facility] for vaccinations. She reported that she [...] Taxol x 6 cycles, completed 05/27/13. 6) Ransom/carbo/cassandra x cycles for biopsy proven metastatic disease [...] No jaundice or rash. No petechiae. 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 No focal motor [...] Omar Gross DO Referring Provider: OMAR GROSS [[id number]] Allergies As of Date: 10/24/2018 Noted Allergy [...] Carcinomatosis (HCC) [C80.0] Order(s):CT ABD/PEL W IVCON [[id number]] Order #: [id number] FUTURE CT CHEST W IVCON [[id number]] Order #: [id number] FUTURE iv contrast (will be provided with [...] 10/23/2018 Status: C Source: [place] 12:53 PM [facility] [...] as: February Performed By: #### L100.0100 #### [facility] [address] [place], [place], [address] COMPREHENSIVE METABOLIC Collected: 10/23/2018 Status: F Source: [facility] 12:53 PM [facility] [...] GAP 8 Performed By: #### L500.4050 #### [facility] [address] [place], [address] Observed: 10/09/2018 Status: F Source: [facility] 3:15 PM [facility] REPOSITORY Is the patient receiving laxatives? N New/unexplained onset of 3 or more stools in past 24 hrs? Y Has pt arrived? Y Cdiff-Molecular Normal Reference Range = Negative C. Diff DNA Negative- No toxigenic C. Diff DNA Detected NAAT METHOD Testing was performed using nucleic acid amplification Performed By: #### M100.6796 #### [facility] [address], [address] CBC W/DIFF, AUTOMATED Collected: 10/07/2018 Status: F Source: [place] 9:49 AM [facility] [...] Lymph 1.28 Performed By: #### L100.0100 #### [facility] [address] [place], [place], [address] COMPREHENSIVE METABOLIC Collected: 10/07/2018 Status: F Source: [place] BENDER 9:49 AM [facility] [...] GAP 8 Performed By: #### L500.4050 #### [facility] [address] [place], [address] CANCER ANTIGEN 125 Collected: 10/07/2018 Status: F Source: [place] 9:49 AM [facility] REPOSITORY TYPE CODE TESTS RESULT OUT OF RANGE REFERENCE UNITS LAB L3100.5000 0.0-38.1 U/mL High CA125 90.0 2303 Result Comment: Meghna ECLIA methodology Performed at: - [facility] [address] [id number] Harvest Field Ticketer: Carlo Bass PhD, Phone: [phone] Performed By: #### L3100.5000 #### [facility] (refer to report for specific site) refer to report for address and phone number BREAST LIMITED Observed: 09/26/2018 Status: F Source: [place] UNILATERAL 1:24 PM [facility] REPOSITORY [facility] Imaging Services [address] [place] [address] Breast Limited Unilateral MR#: [id number] Acct: [id number] Name: IVA CUEVA Rep #: [id number] : 1955 F 63 From: Shahbaz Munguia MD PCP: Peter Deras MD Status: REG CLI Study: Breast Limited Unilateral Date of Exam: 09/26/18 Exam# [id number] Ordering Dr: Marcy Bruno MD STUDY: ULTRASOUND [...] Shahbaz Munguia MD at 15:18 EST Tel [phone], Service support , CC: Peter Deras MD; Marcy Bruno MD Alignment Technician: Signed DIAG MAMM W/CAD, Observed: 09/26/2018 Status: F Source: [place] BILAT 1:24 PM [facility] REPOSITORY [facility] Imaging Services [facility] [place] [address] DIAG MAMM W/CAD, BILAT MR#: [id number] Acct: [id number] Name: IVA CUEVA Rep #: [id number] : 1955 F 63 From: Shahbaz Munguia MD PCP: Peter Deras MD Status: REG CLI Study: DIAG MAMM W/CAD, BILAT Date of Exam: 09/26/18 Exam# [id number] Ordering Dr: Marcy Bruno MD MAMMOGRAPHY - [...] Shahbaz Munguia MD at 8:58 EST Tel [phone], Service support , CC: Peter Deras MD; Marcy Bruno MD Alignment Technician: Signed BOW MACHINE OPERATOR OFFICE VISIT Observed: 09/26/2018 Status: F Source: [place] REPORT 6:01 AM [facility]'s [address] [place] [address] OFFICE VISIT Date of Service: 09/17/18 MR#: [id number] Acct: [id number] Name: IVA CUEVA Rep #: [id number] : 1955 Provider: Marcy Bruno MD Age/Sex: 63/F Location: [facility] Status: Signed Intake Vital Signs09/17/18 Height 5 ft 4 in 09/17/18 Weight: 189 lb 2 oz 09/17/18 Body Mass Index (BMI) 32.4 09/17/18 Blood Pressure 122/80 H Intake Visit Reasons: ANNUAL Chief Complaint: est annual Second Cook And Baker Required: No Is patient in pain?: No [...] Const General: cooperative, comfortable, no acute distress [facility] Head: normal to inspection, normocephalic, other (absence [...] CC: PROGRESS Observed: 08/30/2018 Status: COMPLETED Source: [place] 3:15 PM [facility] REPOSITORY [facility] ID: [id number] Author: Omar Gross Service: (none) Author Type: Physician Type: Progress Notes Filed: 09/02/2018 9:16 AM Note Text: Diagnosis: 1) Ovarian cancer. ? HPI: The patient is a 63 year old female who presented to her PCP prior to a trip to [facility] for vaccinations. She reported that she [...] Taxol x 6 cycles, completed 05/27/13. 6) Ransom/carbo/cassandra x cycles for biopsy proven metastatic disease [...] No jaundice or rash. No petechiae. 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 No focal motor weakness. ? ASSESSMENT/PLAN: (C56.1, C56.2) Cancer of both ovaries (HCC) (primary encounter diagnosis) (C78.7) Liver metastases (HCC) KPS is 90%. Biopsy-proven recurrence. [place] refractory? -She is tolerating topotecan well thus [...] DO CNOVSP Observed: 08/30/2018 Status: COMPLETED Source: [place] 3:10 PM [facility] REPOSITORY Visit (SP) Office ([facility]) IVA CUEVA ([id number]) 1955 F Date Time Provider Department 08/30/18 [...] her PCP prior to a trip to [facility] for vaccinations. She reported that she [...] Taxol x 6 cycles, completed 05/27/13. 6) Ransom/carbo/cassandra x cycles for biopsy proven metastatic disease [...] No jaundice or rash. No petechiae. 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 No focal motor weakness. ? ASSESSMENT/PLAN: (C56.1, C56.2) Cancer of both ovaries (HCC) (primary encounter diagnosis) (C78.7) Liver metastases (HCC) KPS is 90%. Biopsy-proven recurrence. [place] refractory? -She is tolerating topotecan well thus [...] Omar Gross DO Referring Provider: OMAR GROSS [[id number]] Allergies As of Date: 08/30/2018 Noted Allergy [...] Status: F Source: [place] B[place] 4:19 PM [facility] [...] GAP 11 Performed By: #### L500.4050 #### [facility] [address] [place], [place], [address] CBC W/DIFF, AUTOMATED Collected: 08/26/2018 Status: F Source: [place] 4:19 PM [facility] [...] Normal RARE Performed By: #### L100.0100 #### [facility] [address] [place], [address] CANCER ANTIGEN 125 Collected: 08/26/2018 Status: F Source: [place] 4:19 PM [facility] REPOSITORY TYPE CODE TESTS RESULT OUT OF RANGE REFERENCE UNITS LAB L3100.5000 0.0-38.1 U/mL High CA125 59.5 2303 Result Comment: Meghna ECLIA methodology Performed at: - [facility] [id number] Harvest Field Ticketer: Carlo Bass PhD, Phone: [phone] Performed By: #### L3100.5000 #### [facility] (refer to report for specific site) refer to report for address and phone number HOSP Observed: 08/12/2018 Status: COMPLETED Source: [place] 12:00 AM [facility] REPOSITORY Patient Update (HEMAWS) IVA CUEVA ([id number]) 1955 F Date Time Provider Department 08/12/18 OMAR GROSS HEMANAND During your visit today, we recorded the following information about you: Joshua Woods, RN, RN 08/12/2018 3:58 PM Signed Jacinta Tariq from [facility] prior auth called to verify pt's dose of Avastin. Pt's weight has changed and wanted to check what dose of Avastin pt should be getting. Jane checked with Dr Gross and pt should be receiving 15mg/kg (currently 88kg which would be a dose of 1320mg). Jacinta Tariq notified of this change and new order written and faxed to [facility] and Jane faxed new order to [facility] as well. Reference number is [id number] and Jacinta Tariq's fax number is [phone]. Reference number written on fax cover sheet [...] * FLUTICASONE 50 MCG/ACTUATION * Use 1 Una in each nostril o* ERGOCALCIFEROL (VITAMIN D2) [...] 3:52 PM Status: Signed Jacinta Tariq from [facility] prior auth called to verify pt's dose of Avastin. Pt's weight has changed and wanted to check what dose of Avastin pt should be getting. Jane checked with Dr Gross and pt should be receiving 15mg/kg (currently 88kg which would be a dose of 1320mg). Jacinta Tariq notified of this change and new order written and faxed to [facility] and Jane faxed new order to [facility] as well. Reference number is [id number] and Jacinta Tariq's fax number is [phone]. Reference number written on fax cover sheet per her request. Encounter Status:Closed by JOSHUA WOODS on 08/12/18 TYPE AND SCREEN Collected: 08/05/2018 Status: F Source: [place] 12:22 PM [facility] REPOSITORY Order Comment: Reason for Type AND Screen/Red Cells: ANEMIA TYPE CODE TESTS RESULT OUT OF RANGE REFERENCE UNITS LAB B10.0800 O Normal BLOOD TYPE GEL NEGATIVE LAB B100.4000 Normal Antibody NEGATIVE Screen Performed By: #### B101.7450 #### [facility] [address] [place], [address] Collected: 08/05/2018 Status: F Source: [place] 12:22 PM [facility] REPOSITORY TYPE CODE TESTS RESULT OUT OF REFERENCE UNITS RANGE LAB U100.0000 17525200 TRANSFUSED PRODUCT: T AND S with Crossmatch, Red Cells COUNT: 1 Performed By: #### U100.0000 #### [facility] - refer to report for specific site CBC W/DIFF, AUTOMATED Collected: 08/05/2018 Status: F Source: [place] 12:10 PM [facility] [...] Lymph 0.97 Performed By: #### L100.0100 #### [facility] [address] [place], [address] COMPREHENSIVE METABOLIC Collected: 08/05/2018 Status: F Source: [place] [facility] 12:10 PM [facility] [...] GAP 8 Performed By: #### L500.4050 #### [facility] [address] [place], [place], [id number] CBC W/DIFF, AUTOMATED Collected: 07/29/2018 Status: F Source: [place] 1:57 PM [facility] [...] ANISO 2+ Performed By: #### L100.0100 #### [facility] [address] [place], [place], [address] CBC W/DIFF, AUTOMATED Collected: 07/23/2018 Status: C Source: [place] 2:30 PM [facility] [...] February jalyn Performed By: #### L100.0100 #### [facility] [place], [address] COMPREHENSIVE METABOLIC Collected: 07/23/2018 Status: F Source: [place] BENDER 2:30 PM [facility] [...] GAP 7 Performed By: #### L500.4050 #### [facility] [address] [place], [address] CANCER ANTIGEN 125 Collected: 07/23/2018 Status: F Source: [place] 2:30 PM [facility] REPOSITORY TYPE CODE TESTS RESULT OUT OF RANGE REFERENCE UNITS LAB L3100.5000 0.0-38.1 U/mL High CA125 59.4 2303 Result Comment: Meghna ECLIA methodology Performed at: - [facility] [address] [id number] Harvest Field Ticketer: Carlo Bass PhD, Phone: [phone] Performed By: #### L3100.5000 #### [facility] (refer to report for specific site) refer to report for address and phone number CNPN Observed: 07/23/2018 Status: COMPLETED Source: [place] 12:00 AM [facility] REPOSITORY Telephone ([facility]) IVA CUEVA ([id number]) 1955 F Date Time Provider Department 07/23/18 [...] dates. Please advise and call patient at [phone]. Omar Gross DO 07/23/2018 11:04 AM Signed [...] * FLUTICASONE 50 MCG/ACTUATION * Use 1 Una in each nostril o* ERGOCALCIFEROL (VITAMIN D2) [...] 07/23/18 PROGRESS Observed: 07/04/2018 Status: COMPLETED Source: [place] 3:45 PM [facility] [place] REPOSITORY HNO ID: [id number] Author: Oamr Gross Service: (none) Author Type: Physician Type: Progress Notes Filed: 07/04/2018 3:55 PM Note Text: Diagnosis: 1) Ovarian cancer. ? HPI: The patient is a 63 year old female who presented to her PCP prior to a trip to [facility] for vaccinations. She reported that she [...] Taxol x 6 cycles, completed 05/27/13. 6) Ransom/carbo/cassandra x cycles for biopsy proven metastatic disease [...] No jaundice or rash. No petechiae. 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 No focal motor weakness. ? ASSESSMENT/PLAN: (C56.1, C56.2) Cancer of both ovaries (HCC) (primary encounter diagnosis) (C78.7) Liver metastases (HCC) KPS is 90%. Biopsy-proven recurrence. [place] refractory? -She is tolerating topotecan well thus [...] DO CNOVSP Observed: 07/04/2018 Status: COMPLETED Source: [place] 11:00 AM [facility] REPOSITORY Visit (SP) Office (PRISCILLA) IVA CUEVA ([id number]) 1955 F Date Time Provider Department 07/04/18 [...] her PCP prior to a trip to [facility] for vaccinations. She reported that she [...] Taxol x 6 cycles, completed 05/27/13. 6) Ransom/carbo/cassandra x cycles for biopsy proven metastatic disease [...] No jaundice or rash. No petechiae. 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 No focal motor weakness. ? ASSESSMENT/PLAN: (C56.1, C56.2) Cancer of both ovaries (HCC) (primary encounter diagnosis) (C78.7) Liver metastases (HCC) KPS is 90%. Biopsy-proven recurrence. [place] refractory? -She is tolerating topotecan well thus [...] Omar Gross DO Referring Provider: OMAR GROSS [[id number]] Allergies As of Date: 07/04/2018 Noted Allergy [...] * FLUTICASONE 50 MCG/ACTUATION * Use 1 Una in each nostril o* ERGOCALCIFEROL (VITAMIN D2) [...] Status: F Source: [place] 11:59 AM [facility] [place] GAP 10 Performed By: #### L500.4050 #### [facility] [address] [facility]. [place], [place], [address] CBC W/DIFF, AUTOMATED Collected: 07/03/2018 Status: C Source: [place] 11:59 AM [facility] [...] as: February Performed By: #### L100.0100 #### [facility] [address] [place], [address] CANCER ANTIGEN 125 Collected: 07/03/2018 Status: F Source: [place] 11:59 AM [facility] REPOSITORY TYPE CODE TESTS RESULT OUT OF RANGE REFERENCE UNITS LAB L3100.5000 0.0-38.1 U/mL High CA125 72.9 2303 Result Comment: Meghna ECLIA methodology Performed at: - [facility] [address] [id number] [employer] Ticketer: Carlo Bass PhD, Phone: [phone] Performed By: #### L3100.5000 #### [facility] (refer to report for specific site) refer to report for address and phone number CBC W/DIFF, AUTOMATED Collected: 06/26/2018 Status: F Source: [place] 10:05 AM [facility] [...] Lymph 1.44 Performed By: #### L100.0100 #### [facility] [address] [place], [address] CNPN Observed: 06/18/2018 Status: COMPLETED Source: ELOY 12:00 AM [facility] REPOSITORY Telephone (HEMANAND) IAV CEUVA ([id number]) 1955 F Date Time Provider Department 06/18/18 OMAR GROSS During your visit today, we recorded the following information about you: Bettina Orona Pss 06/18/2018 2:15 PM Signed Maday from [facility] Infusion called in - states that pt is supposed to start Aloxi infusion (?) today - they need an order from Dr. Gross that has his signature on it. Please fax signed order to [phone]. Jane James LPN 06/18/2018 2:28 PM Signed [...] DX code and signature. Please resend to [phone] Thank you Hari Avilez PSR Jane James LPN 06/19/2018 4:39 PM Signed Spoke with Lilly at [facility] infusion suite. She will call back [...] * FLUTICASONE 50 MCG/ACTUATION * Use 1 Una in each nostril o* ERGOCALCIFEROL (VITAMIN D2) [...] 06/18/18 PROGRESS Observed: 06/13/2018 Status: COMPLETED Source: [place] 3:14 PM [facility] [place] REPOSITORY O ID: [id number] Author: Omar Gross Service: (none) Author Type: Physician Type: Progress Notes Filed: 06/14/2018 9:51 AM Note Text: Diagnosis: 1) Ovarian cancer. ? HPI: The patient is a 63 year old female who presented to her PCP prior to a trip to [facility] for vaccinations. She reported that she [...] Taxol x 6 cycles, completed 05/27/13. 6) Ransom/carbo/cassandra x cycles for biopsy proven metastatic disease [...] changes. She's undergone several injections by her lacquer sprayer they have not helped. This is her [...] No jaundice or rash. No petechiae. 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 No focal motor weakness. ? ASSESSMENT/PLAN: (C56.1, C56.2) Cancer of both ovaries (HCC) (primary encounter diagnosis) (C78.7) Liver metastases (HCC) KPS is 90%. Biopsy-proven recurrence. [place] refractory? -She is tolerating topotecan well thus [...] DO CNOVSP Observed: 06/13/2018 Status: COMPLETED Source: [place] 3:00 PM [facility] REPOSITORY Visit (SP) Office (PRISCILLA) ANAYIVA Ronit ([id number]) 1955 F Date Time Provider Department 06/13/18 3:00 PM OMAR GROSS During your visit today, we recorded the following information about you: Temperature Pulse Blood pressure Weight 97.5 degrees 94/minute 137/75 86.9 kg Jane James LPN 06/13/2018 3:24 PM Signed Est patient. Discuss recent labs @[facility], next round of treatment. Jane Gross DO 06/14/2018 9:51 AM Signed Diagnosis: 1) Ovarian cancer. ? HPI: The patient is a 63 year old female who presented to her PCP prior to a trip to [facility] for vaccinations. She reported that she [...] Taxol x 6 cycles, completed 05/27/13. 6) Ransom/carbo/cassandra x cycles for biopsy proven metastatic disease [...] changes. She's undergone several injections by her lacquer sprayer they have not helped. This is her [...] No jaundice or rash. No petechiae. 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 No focal motor weakness. ? ASSESSMENT/PLAN: (C56.1, C56.2) Cancer of both ovaries (HCC) (primary encounter diagnosis) (C78.7) Liver metastases (HCC) KPS is 90%. Biopsy-proven recurrence. [place] refractory? -She is tolerating topotecan well thus [...] Omar Gross DO Referring Provider: OMAR GROSS [[id number]] Allergies As of Date: 06/13/2018 Noted Allergy [...] * FLUTICASONE 50 MCG/ACTUATION * Use 1 Una in each nostril o* ERGOCALCIFEROL (VITAMIN D2) [...] Status: Signed Est patient. Discuss recent labs @[facility], next round of treatment. Jane James MARTELL Encounter Status:Closed by OMAR GROSS DO on 06/14/18 CANCER ANTIGEN 125 Collected: 06/10/2018 Status: F Source: CASA 12:29 PM [facility] REPOSITORY TYPE CODE TESTS RESULT OUT OF RANGE REFERENCE UNITS LAB L3100.5000 0.0-38.1 U/mL High CA125 62.5 2303 Result Comment: Cytox ECLIA methodology Performed at: [facility] [address] [id number] [employer] Ticketer: Carlo Bass PhD, Phone: [phone] Performed By: #### L3100.5000 #### [facility] (refer to report for specific site) refer to report for address and phone number CBC W/DIFF, AUTOMATED Collected: 06/10/2018 Status: F Source: CASA 12:25 PM [facility] [...] Lymph 1.43 Performed By: #### L100.0100 #### [facility] [address] [place], [place], [address] COMPREHENSIVE METABOLIC Collected: 06/10/2018 Status: F Source: [facility] 12:25 PM [facility] [...] GAP 11 Performed By: #### L500.4050 #### [facility] [place], [address] CBC W/DIFF, AUTOMATED Collected: 05/18/2018 Status: F Source: [place] 12:51 PM [facility] [...] Lymph 1.60 Performed By: #### L100.0100 #### [facility] [address] [place], [address] COMPREHENSIVE METABOLIC Collected: 05/18/2018 Status: F Source: [facility] 12:51 PM [facility] [...] GAP 4 Performed By: #### L500.4050 #### [facility] [address] [place], [address] CT ABD/PEL W IVCON Observed: 04/29/2018 Status: F Source: [place] 2:46 PM [facility] REPOSITORY * * *Final Report* * * DATE OF EXAM: Apr 29 2018 2:46PM [facility] 0530 - CT ABD/PEL W IVCON / [...] new adenopathy is seen. 3. Fatty liver Alignment Technician: PSCJose Guadalupe Transcribe Date/Time: Apr 30 2018 4:02P Dictated by : ANTHONY DIAZ DO This examination was interpreted and the report reviewed and electronically signed by: ANTHONY DIAZ DO on Apr 30 2018 4:35PM EST [id number] Observed: 04/29/2018 Status: COMPLETED Source: [place] 2:34 PM [facility] REPOSITORY O ID: [id number] Author: Ofelia Landeors Ct Service: (none) Author Type: (none) Type: [...] ISTAT BMP Collected: 04/29/2018 Status: F Source: [place] 2:00 PM [facility] REPOSITORY TYPE CODE TESTS RESULT [...] + CBC Collected: 04/29/2018 Status: F Source: [place] 2:00 PM [facility] REPOSITORY TYPE CODE TESTS RESULT OUT OF REFERENCE UNITS RANGE LAB WWBC 3.70-11.00 k/uL [place] WBC 4.60 LAB WRBC 3.90-5.20 m/uL Low [place] RBC 3.30 LAB WHGB 11.5-15.5 g/dL Low [place] Hemoglobin 10.4 LAB WHCT 36.0-46.0 % Low [place] Hematocrit 32.4 LAB WMCV 80.0-100.0 fL [place] MCV 98.2 LAB WMCH 26.0-34.0 pg [place] MCH 31.5 LAB WMCHC 30.5-36.0 g/dL [place] MCHC 32.1 LAB WRDW 11.5-15.0 % [place] High RDW 16.8 LAB WPLT 150-400 k/uL [place] High Platelet Cnt 597 LAB WMPV 9.0-12.7 fL [place] MPV 9.9 Result Comment: Test performed at: [facility] [address] [facility] [place] [address]. LAB ABGRAN 1.45-7.50 k/uL Absol Gran 2.53 Count [place] CREATININE Collected: 04/29/2018 Status: F Source: [place] 1:22 PM [facility] REPOSITORY TYPE CODE TESTS RESULT OUT OF REFERENCE UNITS RANGE LAB WCRET 0.7-1.4 mg/dL [place] Creatinine 0.9 CNPN Observed: 04/24/2018 Status: COMPLETED Source: [place] 12:00 AM [facility] REPOSITORY Telephone (HEMAWS) IVA CUEVA ([id number]) 1955 F Date Time Provider Department 04/24/18 OMAR GROSS During your visit today, we recorded the following information about you: Aruna Nielson 04/24/2018 11:47 AM Signed Elli from [facility] called asking for information about the patients ordered CT scan. The patient decided that he would like to have the CT at [facility] and the order needs to be sent over. Please call Elli back at [phone]. Jane James LPN 04/24/2018 11:50 AM Signed Patient is here. Since the CT scan has already been precerted for [facility], patient has decided to have the [...] since she's had all previous CTs at [facility], we'll need to get a CD of her most recent CTs from there sent her to get uploaded. DO Ashleigh Dominguez PSR 04/26/2018 9:05 AM Signed Left voicemail for patient to return call re: below and to arrange for documentation from [facility] results. Ashleigh Gandara PSR Daiana Raglandjasen, PSR 04/26/2018 11:54 AM Signed Patient returned call and is aware of message below Jane James LPN 04/26/2018 12:21 PM Signed Disc requested from [facility]. Jane James LPN Allergies As of [...] * FLUTICASONE 50 MCG/ACTUATION * Use 1 Una in each nostril o* ERGOCALCIFEROL (VITAMIN D2) [...] DOWNTIME REPORT Observed: 04/18/2018 Status: F Source: [place] 12:18 PM [facility] REPOSITORY [facility] Medical Records Department [address] [place] [address] Downtime Report MR#: [id number] Acct: [id number] Name: IVA CUEVA Rep #: [id number] : 1955 63 From: Kamron [place] PCP: Peter Deras MD Status: REG CLI This patient was seen during an EMR downtime April 01, 2018 - April 08, 2018. This patient may have a combination of paper and electronic documentation or all paper documentation. All documentation is viewable within the e-chart portion of [employer] for each patient visit. DOWNTIME REPORT Observed: 04/18/2018 Status: F Source: CASA 12:18 PM [facility] Medical Records Department [address] [place] [address] Downtime Report MR#: [id number] Acct: [id number] Name: IVA CUEVA Rep #: [id number] : 1955 63 From: Kamron [place] PCP: Peter Deras MD Status: REG CLI This patient was seen during an EMR downtime April 01, 2018 - April 08, 2018. This patient may have a combination of paper and electronic documentation or all paper documentation. All documentation is viewable within the e-chart portion of [employer] for each patient visit. DOWNTIME REPORT Observed: 04/18/2018 Status: F Source: CASA 12:17 PM [facility] Medical Records Department [address] [place] [address] Downtime Report MR#: [id number] Acct: [id number] Name: GREGORIO CUEVAShu Cottrell Rep #: [id number] : 1955 63 From: Kamron [place] PCP: Peter Deras MD Status: REG CLI This patient was seen during an EMR downtime April 01, 2018 - April 08, 2018. This patient may have a combination of paper and electronic documentation or all paper documentation. All documentation is viewable within the e-chart portion of [employer] for each patient visit. DOWNTIME REPORT Observed: 04/18/2018 Status: F Source: CASA 12:17 PM [facility] Medical Records Department [address] [place] [address] Downtime Report MR#: [id number] Acct: [id number] Name: GREGORIO CUEVAShu Cottrell Rep #: [id number] : 1955 63 From: Kamron Oh PCP: Peter Deras MD Status: REG CLI This patient was seen during an EMR downtime April 01, 2018 - April 08, 2018. This patient may have a combination of paper and electronic documentation or all paper documentation. All documentation is viewable within the e-chart portion of [employer] for each patient visit. DOWNTIME REPORT Observed: 04/18/2018 Status: F Source: [place] 12:16 PM [facility] REPOSITORY [facility] Medical Records Department [address] [place] [address] Downtime Report MR#: [id number] Acct: [id number] Name: IVA CUEVA Rep #: [id number] : 1955 63 From: Kamron Oh PCP: Peter Deras MD Status: DEP CLI This patient was seen during an EMR downtime April 01, 2018 - April 08, 2018. This patient may have a combination of paper and electronic documentation or all paper documentation. All documentation is viewable within the e-chart portion of [employer] for each patient visit. PROGRESS Observed: 04/18/2018 Status: COMPLETED Source: [place] 12:03 PM [facility] REPOSITORY HNO ID: [id number] Author: Terrance Renee Service: (none) Author Type: Physician Type: Progress Notes Filed: 04/19/2018 8:10 AM Note Text: Diagnosis: 1) Ovarian cancer. ? HPI: The patient is a 63 year old female who presented to her PCP prior to a trip to [facility] for vaccinations. She reported that she [...] Taxol x 6 cycles, completed 05/27/13. 6) Ransom/carbo/cassandra x cycles for biopsy proven metastatic disease [...] No jaundice or rash. No petechiae. 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 No focal motor weakness. ? LABS: review by me and the patient today. ASSESSMENT/PLAN: (C56.1, C56.2) Cancer of both ovaries (HCC) (primary encounter diagnosis) (C78.7) Liver metastases (HCC) KPS is 90%. Biopsy-proven recurrence. [place] refractory.? -She is tolerating topotecan well thus [...] Jo CNOVSP Observed: 04/18/2018 Status: COMPLETED Source: [place] 11:30 AM [facility] REPOSITORY Visit (SP) Office (HEMANAND) IVA CUEVA ([id number]) 1955 F Date Time Provider Department 04/18/18 11:30 AM TERRANCE RENEE During your visit today, we recorded the following information about you: Temperature Pulse Blood pressure Weight 97.5 degrees 79/minute 177/80 86.6 kg Jane James LPN 04/18/2018 11:50 AM Signed Est patient. Labs at [facility]. Jane Renee MD 04/19/2018 8:10 AM Signed Diagnosis: 1) Ovarian cancer. ? HPI: The patient is a 63 year old female who presented to her PCP prior to a trip to [facility] for vaccinations. She reported that she [...] Taxol x 6 cycles, completed 05/27/13. 6) Ransom/carbo/cassandra x cycles for biopsy proven metastatic disease [...] No jaundice or rash. No petechiae. 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 No focal motor weakness. ? LABS: review by me and the patient today. ASSESSMENT/PLAN: (C56.1, C56.2) Cancer of both ovaries (HCC) (primary encounter diagnosis) (C78.7) Liver metastases (HCC) KPS is 90%. Biopsy-proven recurrence. [place] refractory.? -She is tolerating topotecan well thus [...] Dr. Peter Jo Referring Provider: OMAR GROSS [[id number]] Allergies As of Date: 04/18/2018 Noted Allergy [...] of Service: EST PATIENT VISIT LEVEL 4 [[id number]] Disposition: Return in about 1 week (around [...] * FLUTICASONE 50 MCG/ACTUATION * Use 1 Una in each nostril o* ERGOCALCIFEROL (VITAMIN D2) [...] FOR* Visit Notes: >> Jane James LPN [facility] Apr 18, 2018 11:36 AM Status: Signed Est patient. Labs at [facility]. Jane James LPN Encounter Status:Closed by TERRANCE RENEE MD on 04/19/18 CNCO Observed: 04/18/2018 Status: COMPLETED Source: [place] 12:00 AM [facility] REPOSITORY Letter Text [address] [address] Catie Jo M.D. [employer] operator Section of Gynecologic Oncology Director Of Rehabilitation And Wellness and Women's Health [place] Office: [phone] [email or web address]/obgyn April 18, 2018 RE: Iva Cueva DOS: [...] MD CNPN Observed: 04/18/2018 Status: COMPLETED Source: [place] 12:00 AM [facility] REPOSITORY Telephone (HEMAWS) IVA CUEVA ([id number]) 1955 F Date Time Provider Department 04/18/18 [...] patient has CT and Labs done at [facility]. Hari Avilez PSR 04/18/2018 2:24 PM [...] week. Her CT scan is scheduled at [facility] for 04/26/18 Mar Gross DO 04/20/2018 10:10 AM Signed We'll schedule follow up based on upcoming CT results. DO Lora Dominguez 04/22/2018 10:37 AM Signed Spoke with patient and informed her our office will be contacting her after CT @ [facility] on 04/26. Allergies As of Date: [...] * FLUTICASONE 50 MCG/ACTUATION * Use 1 Una in each nostril o* ERGOCALCIFEROL (VITAMIN D2) [...] W/DIFF, AUTOMATED Collected: 04/16/2018 Status: C Source: [place] 10:19 AM [facility] REPOSITORY Order Comment: CRITICAL VALUE VERIFIED. CALLED TO LORIE AT [facility] 04/16/18 Ran7 Tiki Tran. RESULTS [...] February jalyn Performed By: #### L100.0100 #### [facility] [address] [place], [place], [address] COMPREHENSIVE METABOLIC Collected: 04/16/2018 Status: F Source: [place] 10:19 AM [facility] [...] GAP 7 Performed By: #### L500.4050 #### [facility] [address] [place], [place], [address] CANCER ANTIGEN 125 Collected: 04/16/2018 Status: F Source: CASA 10:19 AM [facility] REPOSITORY TYPE CODE TESTS RESULT OUT OF RANGE REFERENCE UNITS LAB L3100.5000 0.0-38.1 U/mL High CA125 48.1 2303 Result Comment: Meghna ECLIA methodology Performed at: CB - [facility] [address] [id number] [employer] Ticketer: Carlo Bass PhD, Phone: [phone] Performed By: #### L3100.5000 #### [facility] (refer to report for specific site) refer to report for address and phone number CNOVSP Observed: 04/12/2018 Status: COMPLETED Source: [place] 3:00 PM [facility] REPOSITORY Visit (SP) Office (REY) IVA CUEVA ([id number]) 1955 F Date Time Provider Department 04/12/18 [...] 7 CA 125 (U/mL) - done at [facility] Date Value 01/30/2018 25 08/06/2017 102.9 [...] She is alert, oriented, pleasant and cooperative. Security Guards Dispatcher for exam: n/a ASSESSMENT: 1. 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 PLAN: CA125 increasing again If rises after this cycle consider CT scans sooner than planned. If progressing, we reviewed options and definitions. We discussed that she is, by definition, saint paul resistant with a 6 month cut-off. However, she had a CR to carboplatin/ Taxol and was right at 6 months for recurrence Given this I would favor another try with carboplatin/ Taxol and consider maintenance therapy with a PARP inhibitor (Olapaprib or Nirapirib), in pts who respond to saint paul-based therapy. We discussed differences in PFS based on gene status, but could benefit even if not HRD positive. Consider repeat CT guided biopsy for tissue confirmation and can send some of the biopsy for [employer] or [employer] testing. Would make sure [...] note were sent to: Marcy Bruno MD [address] [place] [address] CC: DO Peter Salazar MD (PCP) Referring Provider: CATIE JO [[id number]] Allergies As of Date: 04/12/2018 Noted Allergy Reaction CODEINE 05/03/2007 5 - Intolerance PERCOCET (OXYCODONE-ACETAMINOPHEN)06/29/2015 9 - Itching Seasonal [Other] 06/05/2007 ULTRAM (TRAMADOL HCL) 01/08/2013 9 - Itching VICODIN (HYDROCODONE-ACETAMINOPHE*08/26/2007 9 - Itching Date Reviewed: 04/12/2018 Reviewed by: Saritha Corrales (Analysis Internship) MARTELL Del Cid - Fully Assessed Reason [...] * FLUTICASONE 50 MCG/ACTUATION * Use 1 Una in each nostril o* ERGOCALCIFEROL (VITAMIN D2) [...] 04/12/18 PROGRESS Observed: 04/08/2018 Status: COMPLETED Source: [place] 12:25 AM [facility] REPOSITORY O ID: [id number] Author: Catie Jo Service: (none) Author Type: [...] 7 CA 125 (U/mL) - done at [facility] Date Value 01/30/2018 25 08/06/2017 102.9 [...] She is alert, oriented, pleasant and cooperative. Security Guards Dispatcher for exam: n/a ASSESSMENT: 1. 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 PLAN: CA125 increasing again If rises after this cycle consider CT scans sooner than planned. If progressing, we reviewed options and definitions. We discussed that she is, by definition, saint paul resistant with a 6 month cut- off. However, she had a CR to carboplatin/ Taxol and was right at 6 months for recurrence Given this I would favor another try with carboplatin/ Taxol and consider maintenance therapy with a PARP inhibitor (Olapaprib or Nirapirib), in pts who respond to saint paul-based therapy. We discussed differences in PFS based on gene status, but could benefit even if not HRD positive. Consider repeat CT guided biopsy for tissue confirmation and can send some of the biopsy for [employer] or [employer] testing. Would make sure that testing is [...] note were sent to: Marcy Bruno MD [address] [place] [address] CC: DO Peter Salazar MD (PCP) CNOVSP Observed: 03/29/2018 Status: COMPLETED Source: [place] 10:40 AM [facility] REPOSITORY Visit (SP) Office (PRISCILLA) IVA CUEVA ([id number]) 1955 F Date Time Provider Department 03/29/18 [...] her PCP prior to a trip to [facility] for vaccinations. She reported that she [...] Taxol x 6 cycles, completed 05/27/13. 6) Ransom/carbo/cassandra x cycles for biopsy proven metastatic disease [...] No jaundice or rash. No petechiae. 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 No focal motor weakness. ASSESSMENT/PLAN: (C56.1, C56.2) Cancer of both ovaries (HCC) (primary encounter diagnosis) (C78.7) Liver metastases (HCC) KPS is 90%. Biopsy-proven recurrence. Cowlitz refractory. -She is tolerating topotecan well thus [...] Omar Gross DO Referring Provider: OMAR GROSS [[id number]] Allergies As of Date: 03/29/2018 Noted Allergy [...] * FLUTICASONE 50 MCG/ACTUATION * Use 1 Una in each nostril o* ERGOCALCIFEROL (VITAMIN D2) [...] 03/29/18 PROGRESS Observed: 03/29/2018 Status: COMPLETED Source: [place] 9:00 AM [facility] REPOSITORY O ID: [id number] Author: Omar Gross Service: (none) Author Type: Physician Type: Progress Notes Filed: 03/29/2018 12:11 PM Note Text: Diagnosis: 1) Ovarian cancer. HPI: The patient is a 63 year old female who presented to her PCP prior to a trip to [facility] for vaccinations. She reported that she [...] Taxol x 6 cycles, completed 05/27/13. 6) Ransom/carbo/cassandra x cycles for biopsy proven metastatic disease [...] No jaundice or rash. No petechiae. 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 No focal motor weakness. ASSESSMENT/PLAN: (C56.1, C56.2) Cancer of both ovaries (HCC) (primary encounter diagnosis) (C78.7) Liver metastases (HCC) KPS is 90%. Biopsy-proven recurrence. Cowlitz refractory. -She is tolerating topotecan well thus [...] W/DIFF, AUTOMATED Collected: 03/27/2018 Status: F Source: [place] 1:35 PM [facility] [...] Lymph 1.50 Performed By: #### L100.0100 #### [facility] [address] [place], [address] COMPREHENSIVE METABOLIC Collected: 03/27/2018 Status: F Source: [place] 1:35 PM [facility] [...] GAP 10 Performed By: #### L500.4050 #### [facility] [address] [place], [place], [address] CANCER ANTIGEN 125 Collected: 03/27/2018 Status: F Source: [place] 1:35 PM [facility] REPOSITORY TYPE CODE TESTS RESULT OUT OF RANGE REFERENCE UNITS LAB L3100.5000 0.0-38.1 U/mL High CA125 49.6 2303 Result Comment: Meghna ECLIA methodology Performed at: - [facility] [address] [id number] [employer]vest Field Ticketer: Carlo Bass PhD, Phone: [phone] Performed By: #### L3100.5000 #### [facility] (refer to report for specific site) refer to report for address and phone number CBC-COMPLETE BLOOD CNT Collected: 03/04/2018 Status: F Source: [place] NO DIFF 1:45 PM [facility] MPV 8.9 Performed By: #### L100.0500 #### [facility] [address] [place], [place], [address] PROGRESS Observed: 02/27/2018 Status: COMPLETED Source: [place] 11:33 AM [facility] [place] REPOSITORY HNO ID: [id number] Author: Omar Gross Service: (none) Author Type: Physician Type: Progress Notes Filed: 02/27/2018 12:24 PM Note Text: Diagnosis: 1) Ovarian cancer. HPI: The patient is a 63 year old female who presented to her PCP prior to a trip to [facility] for vaccinations. She reported that she [...] Taxol x 6 cycles, completed 05/27/13. 6) Ransom/carbo/cassandra x cycles for biopsy proven metastatic disease [...] No jaundice or rash. No petechiae. 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 No focal motor weakness. ASSESSMENT/PLAN: 1) Ovarian cancer. KPS is 90%. Biopsy-proven recurrence. Cowlitz refractory. -She is tolerating topotecan well thus [...] DO CNOVSP Observed: 02/27/2018 Status: COMPLETED Source: [place] 11:30 AM [facility] REPOSITORY Visit (SP) Office (PRISCILLA) IVA CUEVA ([id number]) 1955 F Date Time Provider Department 02/27/18 11:30 AM OMAR GROSS During your visit today, we recorded the following information about you: Temperature Pulse Blood pressure Weight 98 degrees 89/minute 127/70 88.5 kg Omar Gross DO 02/27/2018 12:24 PM Signed Diagnosis: 1) Ovarian cancer. HPI: The patient is a 63 year old female who presented to her PCP prior to a trip to [facility] for vaccinations. She reported that she [...] Taxol x 6 cycles, completed 05/27/13. 6) Ransom/carbo/cassandra x cycles for biopsy proven metastatic disease [...] No jaundice or rash. No petechiae. 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 No focal motor weakness. ASSESSMENT/PLAN: 1) Ovarian cancer. KPS is 90%. Biopsy-proven recurrence. Cowlitz refractory. -She is tolerating topotecan well thus [...] monitor blood pressure. DO Ania Dominguez, MARTELL, SUMAC TANNER 02/27/2018 12:01 PM Signed Est pt. Discuss recent labs, tx tomorrow Ania Reed LPN Referring Provider: OMAR GROSS [[id number]] Allergies As of Date: 02/27/2018 Noted Allergy [...] * FLUTICASONE 50 MCG/ACTUATION * Use 1 Una in each nostril o* ERGOCALCIFEROL (VITAMIN D2) [...] 02/27/2018 Status: F Source: [place] 9:44 AM [facility] [...] Lymph 1.43 Performed By: #### L100.0100 #### [facility] [address] [place], [address] COMPREHENSIVE METABOLIC Collected: 02/27/2018 Status: F Source: [facility] 9:44 AM [facility] [...] GAP 7 Performed By: #### L500.4050 #### [facility] [address] [place], [place], [address] CANCER ANTIGEN 125 Collected: 02/27/2018 Status: F Source: [place] 9:44 AM [facility] REPOSITORY TYPE CODE TESTS RESULT OUT OF RANGE REFERENCE UNITS LAB L3100.5000 0.0-38.1 U/mL Normal CA125 27.9 2303 Result Comment: Meghna ECLIA methodology Performed at: - [facility] [address], [place], [place] [id number] [employer] Ticketer: Carlo Bass PhD, Phone: [phone] Performed By: #### L3100.5000 #### [facility] (refer to report for specific site) refer to report for address and phone number TYPE AND SCREEN Collected: 02/12/2018 Status: F Source: [place] 12:26 PM [facility] REPOSITORY Order Comment: CMV NEG?* N Give When? [id number] Irradiated? N Leukodepleted? Y Reason for Type AND Screen/Red Cells: ANEMIA TYPE CODE TESTS RESULT OUT OF RANGE REFERENCE UNITS LAB B10.0800 O Normal BLOOD TYPE GEL NEGATIVE LAB B100.4000 Normal Antibody NEGATIVE Screen Performed By: #### B101.7450 #### [facility] [address] [place], [address] Collected: 02/12/2018 Status: F Source: [place] 12:26 PM [facility] REPOSITORY TYPE CODE TESTS RESULT OUT OF REFERENCE UNITS RANGE LAB U100.0000 [id number] TRANSFUSED PRODUCT: T AND S with Crossmatch, Red Cells COUNT: 2 Performed By: #### U100.0000 #### [facility] - refer to report for specific site CBC W/DIFF, AUTOMATED Collected: 02/11/2018 Status: C Source: [place] 11:55 AM [facility] [...] Comment: Normocytic anemia. Clinical correlation necessary. Jc Synder M.D. 02/12/18 AMENDED REPORT 02/12/18 0957 PATH REV previously reported as: Iman gunderson Performed By: #### L100.0100 #### [facility] [address] [place], [address] CBC-COMPLETE BLOOD CNT Collected: 02/04/2018 Status: F Source: [place] NO DIFF 1:45 PM [facility] [...] MPV 9.4 Performed By: #### L100.0500 #### [facility] [address] [place], [place], [address] CBC W/DIFF, AUTOMATED Collected: 01/30/2018 Status: C Source: [place] 12:37 PM [facility] [...] Iman gunderson Performed By: #### L100.0100 #### [facility] [place], [address] COMPREHENSIVE METABOLIC Collected: 01/30/2018 Status: F Source: [facility] 12:37 PM [facility] [...] GAP 7 Performed By: #### L500.4050 #### [facility] [address] [place], [place], [address] CANCER ANTIGEN 125 Collected: 01/30/2018 Status: F Source: [place] 12:37 PM [facility] REPOSITORY TYPE CODE TESTS RESULT OUT OF RANGE REFERENCE UNITS LAB L3100.5000 0.0-38.1 U/mL Normal CA125 25.0 2303 Result Comment: Cytox ECLIA methodology Performed at: [facility] [address] [id number] [employer] Ticketer: Carlo Bass PhD, Phone: [phone] Performed By: #### L3100.5000 #### [facility] (refer to report for specific site) refer to report for address and phone number CBC W/DIFF, AUTOMATED Collected: 01/14/2018 Status: F Source: [place] 11:40 AM [facility] [...] Lymph 1.47 Performed By: #### L100.0100 #### [facility] [address] [place], [address] PROGRESS Observed: 01/09/2018 Status: COMPLETED Source: [place] 4:02 PM [facility] REPOSITORY HNO ID: [id number] Author: Omar Gross Service: (none) Author Type: Physician Type: Progress Notes Filed: 01/11/2018 9:47 AM Note Text: Diagnosis: 1) Ovarian cancer. HPI: The patient is a 62 year old female who presented to her PCP prior to a trip to [facility] for vaccinations. She reported that she [...] Taxol x 6 cycles, completed 05/27/13. 6) Ransom/carbo/cassandra x cycles for biopsy proven metastatic disease [...] No jaundice or rash. No petechiae. 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 No focal motor weakness. ASSESSMENT/PLAN: 1) Ovarian cancer. KPS is 90%. Biopsy-proven recurrence. Cowlitz refractory. -She is tolerating topotecan well thus far. -CA125 trending down. -Symptomatic anemia requiring transfusion. Plan: -Cycle #4 topotecan on Sunday 01/14 pending CBC results that day. -Decrease Neupogen to 7 days post cycle. -CT C/A/P pending CA125 trend. -Continue olanzapine. -Somatic BRCA mutation analysis negative. Omar Gross DO CNOVSP Observed: 01/09/2018 Status: COMPLETED Source: [place] 4:00 PM [facility] REPOSITORY Visit (SP) Office (PRISCILLA) IVA CUEVA ([id number]) 1955 F Date Time Provider Department 01/09/18 [...] her PCP prior to a trip to [facility] for vaccinations. She reported that she [...] Taxol x 6 cycles, completed 05/27/13. 6) Ransom/carbo/cassandra x cycles for biopsy proven metastatic disease [...] No jaundice or rash. No petechiae. 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 No focal motor weakness. ASSESSMENT/PLAN: 1) Ovarian cancer. KPS is 90%. Biopsy-proven recurrence. Cowlitz refractory. -She is tolerating topotecan well thus far. -CA125 trending down. -Symptomatic anemia requiring transfusion. Plan: -Cycle #4 topotecan on Sunday 01/14 pending CBC results that day. -Decrease Neupogen to 7 days post cycle. -CT C/A/P pending CA125 trend. -Continue olanzapine. -Somatic BRCA mutation analysis negative. Omar Gross DO Referring Provider: OMAR GROSS [[id number]] Allergies As of Date: 01/09/2018 Noted Allergy [...] * FLUTICASONE 50 MCG/ACTUATION * Use 1 Una in each nostril o* ERGOCALCIFEROL (VITAMIN D2) [...] February jalyn Performed By: #### L100.0100 #### [facility] [address] [place], [place], [address] COMPREHENSIVE METABOLIC Collected: 01/09/2018 Status: F Source: [facility] 10:12 AM [facility] [...] GAP 6 Performed By: #### L500.4050 #### [facility] [address] [place], [address] CANCER ANTIGEN 125 Collected: 01/09/2018 Status: F Source: [place] 10:12 AM [facility] REPOSITORY TYPE CODE TESTS RESULT OUT OF RANGE REFERENCE UNITS LAB L3100.5000 0.0-38.1 U/mL Normal CA125 25.2 2303 Result Comment: Cytox ECLIA methodology Performed at: [facility] [id number] [employer] Ticketer: Carlo Bass PhD, Phone: [phone] Performed By: #### L3100.5000 #### [facility] (refer to report for specific site) refer to report for address and phone number TYPE AND SCREEN Collected: 01/02/2018 Status: F Source: [place] 4:21 PM [facility] REPOSITORY Order Comment: CMV NEG?* N Give When? When Ready Irradiated? N Leukodepleted? Y Reason for Type AND Screen/Red Cells: ANEMIA TYPE CODE TESTS RESULT OUT OF RANGE REFERENCE UNITS LAB B10.0800 O Normal BLOOD TYPE GEL NEGATIVE LAB B100.4000 Normal Antibody NEGATIVE Screen Performed By: #### B101.7450 #### [facility] [address] [place], [address] RC Collected: 01/02/2018 Status: F Source: [place] 4:21 PM [facility] REPOSITORY TYPE CODE TESTS RESULT OUT OF REFERENCE UNITS RANGE LAB U100.0000 [id number] TRANSFUSED PRODUCT: T AND S with Crossmatch, Red Cells COUNT: 2 Performed By: #### U100.0000 #### [facility] - refer to report for specific site CBC W/DIFF, AUTOMATED Collected: 01/02/2018 Status: F Source: [place] 11:27 AM [facility] [...] Normal RARE Performed By: #### L100.0100 #### [facility] [address] [place], [address] CBC W/DIFF, AUTOMATED Collected: 12/24/2017 Status: C Source: [place] 1:00 PM [facility] [...] February jalyn Performed By: #### L100.0100 #### [facility] [address] [place], [address] CNOVSP Observed: 12/19/2017 Status: COMPLETED Source: [place] 11:50 AM [facility] REPOSITORY Visit (SP) Office (HEMANAND) СВЕТЛАНАIVA CARDENAS ([id number]) 1955 F Date Time Provider Department 12/19/17 11:50 AM OMAR GROSS During your visit today, we recorded the following information about you: Temperature Pulse Blood pressure Weight 98 degrees 106/minute 131/83 87.1 kg Omar Gross DO 12/19/2017 12:39 PM Signed Diagnosis: 1) Ovarian cancer. HPI: The patient is a 62 year old female who presented to her PCP prior to a trip to [facility] for vaccinations. She reported that she [...] Taxol x 6 cycles, completed 05/27/13. 6) Ransom/carbo/cassandra x cycles for biopsy proven metastatic disease [...] No jaundice or rash. No petechiae. 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 No focal motor weakness. ASSESSMENT/PLAN: 1) Ovarian cancer. KPS is 90%. Biopsy-proven recurrence. Cowlitz refractory. -She is tolerating topotecan well thus [...] Ania Reed LPN Referring Provider: OMAR GROSS [[id number]] Allergies As of Date: 12/19/2017 Noted Allergy [...] * FLUTICASONE 50 MCG/ACTUATION * Use 1 Una in each nostril o* ERGOCALCIFEROL (VITAMIN D2) [...] 12/19/17 PROGRESS Observed: 12/19/2017 Status: COMPLETED Source: [place] 11:44 AM [facility] REPOSITORY O ID: [id number] Author: Omar Gross Service: (none) Author Type: Physician Type: Progress Notes Filed: 12/19/2017 12:39 PM Note Text: Diagnosis: 1) Ovarian cancer. HPI: The patient is a 62 year old female who presented to her PCP prior to a trip to [facility] for vaccinations. She reported that she [...] Taxol x 6 cycles, completed 05/27/13. 6) Ransom/carbo/cassandra x cycles for biopsy proven metastatic disease [...] No jaundice or rash. No petechiae. 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 No focal motor weakness. ASSESSMENT/PLAN: 1) Ovarian cancer. KPS is 90%. Biopsy-proven recurrence. Cowlitz refractory. -She is tolerating topotecan well thus [...] NRBC PANEL Collected: 12/19/2017 Status: F Source: [place] 10:55 AM [facility] REPOSITORY Order Comment: CRITICAL VALUE VERIFIED. CALLED TO SILVANA AT 'S OFFICE 12/19/17 1117 Tiki Tran. RESULTS READ BACK BY SAME . TYPE CODE TESTS RESULT OUT OF RANGE REFERENCE UNITS LAB L100.4450 0-5 % Normal NRBC, FLAGGED 0.3 LAB L100.4455 0-5 10 3/uL Normal NRBC # 0.21 Performed By: #### L100.4425, L100.0100 #### [facility] [place] [facility] [place], [address] CBC W/DIFF, AUTOMATED Collected: 12/19/2017 Status: C Source: [place] 10:55 AM [facility] [...] jalyn Performed By: #### L100.4425, L100.0100 #### [facility] [place], [address] COMPREHENSIVE METABOLIC Collected: 12/19/2017 Status: F Source: [facility] 10:55 AM [facility] [...] GAP 10 Performed By: #### L500.4050 #### [facility] [address] [place], [place], [address] CANCER ANTIGEN 125 Collected: 12/19/2017 Status: F Source: [place] 10:55 AM [facility] REPOSITORY TYPE CODE TESTS RESULT OUT OF RANGE REFERENCE UNITS LAB L3100.5000 0.0-38.1 U/mL Normal CA125 34.6 2303 Result Comment: Cytox ECLIA methodology Performed at: [facility] [address] [id number] [employer] Ticketer: Carlo Bass PhD, Phone: [phone] Performed By: #### L3100.5000 #### [facility] (refer to report for specific site) refer to report for address and phone number CBC W/DIFF, AUTOMATED Collected: 12/13/2017 Status: F Source: [place] 11:36 AM [facility] [...] HYPOCHROMASIA 1+ Performed By: #### L100.0100 #### [facility] [address] [place], [address] CTA CHEST W/WO Observed: 12/06/2017 Status: F Source: [place] CONTRAST 3:51 PM [facility] REPOSITORY [facility] [address] [place] [address] CTA Chest W/WO Contrast MR#: [id number] Acct: [id number] Name: IVA CUEVA Rep #: [id number] : 1955 F 62 From: Maura Ordaz MD PCP: Peter Deras MD Status: REG CLI Study: CTA Chest W/WO Contrast Date of Exam: 12/06/17 Exam# [id number] Ordering Dr: Omar Gross DO STUDY: CTA [...] CC: Peter Deras MD; Omar Gross DO Alignment Technician: Signed CBC-COMPLETE BLOOD CNT Collected: 12/06/2017 Status: F Source: [place] NO DIFF 1:50 PM [facility] [...] MPV 9.6 Performed By: #### L100.0500 #### [facility] [address] [place], [address] MISC SEND OUT TEST Collected: 12/05/2017 Status: F Source: [place] 8:04 PM [facility] REPOSITORY TYPE CODE TESTS RESULT OUT OF REFERENCE UNITS RANGE LAB NAME1 TUMOR Test BRACANALYSIS LAB RESU1 View results Test Results in Scanned Documents link when available. Performed By: #### [id number] #### [facility] [address] [place], [place] [address] CBC W/DIFF, AUTOMATED Collected: 12/03/2017 Status: C Source: [place] 12:15 PM [facility] [...] Lymph 2.30 Performed By: #### L100.0100 #### [facility] [address] [place], [address] PROGRESS Observed: 11/28/2017 Status: COMPLETED Source: [place] 5:41 PM [facility] REPOSITORY HNO ID: [id number] Author: Omar Gross Service: (none) Author Type: Physician Type: Progress Notes Filed: 11/28/2017 5:45 PM Note Text: Diagnosis: 1) Ovarian cancer. HPI: The patient is a 62 year old female who presented to her PCP prior to a trip to [facility] for vaccinations. She reported that she [...] Taxol x 6 cycles, completed 05/27/13. 6) Ransom/carbo/cassandra x cycles for biopsy proven metastatic disease [...] No jaundice or rash. No petechiae. 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 No focal motor weakness. ASSESSMENT/PLAN: 1) Ovarian cancer. KPS is 90%. Biopsy-proven recurrence. Cowlitz refractory. -She is tolerating topotecan well thus far. -Previous discussed rationale for testing biopsy specimen from 2014 for somatic BRCA mutation. [facility] didn't have enough tissue. Plan: -Cycle #2 topotecan on Sunday 12/03 pending CBC results that day. -Neupogen x10 days post cycle. -CT C/A/P prior to cycle #4 or sooner pending CA125 trend. -Continue olanzapine. -Somatic mutation of BRCA requested from past specimen in 2012 for [facility]. Omar Gross DO CNOVSP Observed: 11/28/2017 Status: COMPLETED Source: [place] 4:00 PM [facility] REPOSITORY Visit (SP) Office (PRISCILLA) IVA CUEVA ([id number]) 1955 F Date Time Provider Department 11/28/17 4:00 PM OMAR GROSS During your visit today, we recorded the following information about you: Temperature Pulse Blood pressure Weight 98 degrees 99/minute 122/66 87.3 kg Jane James MARTELL 11/28/2017 4:37 PM Signed Est patient. Labs today at [facility]. Jane James SUMAC TANNERShu Lucia MadiejaimieDO 11/28/2017 5:45 PM Signed Diagnosis: 1) Ovarian cancer. HPI: The patient is a 62 year old female who presented to her PCP prior to a trip to [facility] for vaccinations. She reported that she [...] Taxol x 6 cycles, completed 05/27/13. 6) Ransom/carbo/cassandra x cycles for biopsy proven metastatic disease [...] No jaundice or rash. No petechiae. 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 No focal motor weakness. ASSESSMENT/PLAN: 1) Ovarian cancer. KPS is 90%. Biopsy-proven recurrence. Cowlitz refractory. -She is tolerating topotecan well thus far. -Previous discussed rationale for testing biopsy specimen from 2014 for somatic BRCA mutation. [facility] didn't have enough tissue. Plan: -Cycle #2 topotecan on Sunday 12/03 pending CBC results that day. -Neupogen x10 days post cycle. -CT C/A/P prior to cycle #4 or sooner pending CA125 trend. -Continue olanzapine. -Somatic mutation of BRCA requested from past specimen in 2012 for [facility]. Omar Gross DO Referring Provider: OMAR GROSS [[id number]] Allergies As of Date: 11/28/2017 Noted Allergy [...] * FLUTICASONE 50 MCG/ACTUATION * Use 1 Una in each nostril o* ERGOCALCIFEROL (VITAMIN D2) [...] Status: Signed Est patient. Labs today at [facility]. Jane James LPN Encounter Status:Closed by OMAR GROSS DO on 11/28/17 CBC W/DIFF, AUTOMATED Collected: 11/28/2017 Status: C Source: [place] 10:31 AM [facility] [...] jalyn Performed By: #### L100.0100 #### [facility] [place] [facility] [place], [address] COMPREHENSIVE METABOLIC Collected: 11/28/2017 Status: F Source: [place] 10:31 AM [facility] [...] GAP 7 Performed By: #### L500.4050 #### [facility] [address] [place], [address] CANCER ANTIGEN 125 Collected: 11/28/2017 Status: F Source: [facility] 10:31 AM [facility] REPOSITORY TYPE CODE TESTS RESULT OUT OF RANGE REFERENCE UNITS LAB L3100.5000 0.0-38.1 U/mL High CA125 92.1 2303 Result Comment: Cytox ECLIA methodology Performed at: [facility] [address] [id number] Harvest Field Ticketer: Carlo Bass PhD, Phone: [phone] Performed By: #### L3100.5000 #### [facility] (refer to report for specific site) refer to report for address and phone number ALLERGIES ALLERGIES DATE TYPE / CODE NAME / CODE REACTION SEVERITY SOURCE Drug hydrocodone Itching Unknown [place] 8 Allergy/647491319( bitartrate/F0000 [facility] SNOMED [facility]) [address](RXNORM) Hospital Repository Drug tramadol Itching Unknown [place] Allergy/995625706( HCl/[id number](R [facility]) XNORM) Hospital Repository Drug codeine/[id number] Itching Unknown [facility] Allergy/222850056( 50(RXNORM) [facility] SN[facility]) Hospital Repository Drug oxycodone/K10334 Itching Unknown [place] [facility] Allergy/331451056( 1558(RXNORM) [facility]) Hospital Repository Drug acetaminophen/F0 Itching Unknown [place] Allergy/836547735( 15344120(RXNORM) [facility] SNOMED [facility]) Hospital Repository DRUG/319158840(SNO OXYCODONE-ACETAM ITCHING [place] [address]) INOPHEN [facility] Main [place] Repository DRUG TRAMADOL HCL ITCHING [place] [facility] INGREDI/783076867( Clinic Main SNOMED CT) [place] Repository DRUG/455543802(SNO HYDROCODONE-ACET ITCHING [place] [address]) AMINOPHEN [facility] [place] Repository Miscellaneous OTHER [place] [facility] Allergy/263482860( [facility] Main SNOMED CT) [place] Repository DRUG CODEINE INTOLERANCE [place] INGREDI/915563194( [facility] Main SNOMED CT) [place] Repository ENCOUNTERS ENCOUNTERS ADMIT/DISCHARGE ACCOUNT ADMITTING ENCOUNTER LOCATION SOURCE NUMBER CLASS 11/23/2018/11/23/19 [id number] Ambulatory [address] HospitalBuild Hospital ing:MEDOUTP Repository 11/22/2018 [id number] Ambulatory [facility] HospitalBuild Hospital ing:MEDOUTP Repository 11/21/2018 [id number] Ambulatory [facility] Hospital ing:MEDOUTP Repository 11/20/2018 [id number] Ambulatory [facility] Hospital ing:MEDOUTP Repository 11/19/2018 [id number] Ambulatory [facility] Hospital ing:MEDOUTP Repository 11/04/2018 [id number] GERARD [facility] [place] Repository 11/01/2018/11/01/19 [id number] Ambulatory [address] Repository 10/29/2018 [id number] Ambulatory [facility] HospitalBuild Hospital ing:LAB Repository 10/28/2018/10/28/20 [id number] Ambulatory [address] Repository 10/28/2018/10/28/20 [id number] Ambulatory [address] Repository 10/28/2018 [id number] Ambulatory [facility] HospitalBuild Hospital ing:MEDOUTP Repository 10/25/2018/10/25/20 [id number] Ambulatory [address] HospitalBuild Hospital ing:LAB Repository 10/24/2018/10/25/20 [id number] Ambulatory [address] Repository 10/11/2018 [id number] Ambulatory [facility] Hospital[facility] Hospital ing:MEDOUTP Repository 10/10/2018 [id number] Ambulatory [facility] Hospital ing:MEDOUTP Repository 10/09/2018 [id number] Ambulatory [facility] Hospital ing:MEDOUTP Repository 10/08/2018 [id number] Ambulatory [facility] Hospital ing:MEDOUTP Repository 10/07/2018 [id number] [facility] [place] [facility] ing:MEDOUTP Repository 09/26/2018 [id number] [facility] ing:OPUS Repository 09/17/2018/09/17/20 [id number] Ambulatory BMSBuilding:B [place] [address] Repository 09/13/2018 [id number] Ambulatory [place] [facility] ing:MEDOUTP Repository 09/12/2018 [id number] [facility] Rep[facility] 09/11/2018 [id number] [facility] ing:MED[facility]P Repository 09/10/2018 [id number] [facility] Repository 09/09/2018 [id number] [facility]P Repository 08/30/2018/09/02/20 [id number] Ambulatory [address] Repository 08/26/2018/08/26/20 [id number] Ambulatory [place] [facility] HospitalBuild Hospital ing:LAB Repository 08/06/2018 [id number] [facility] ing:MED[facility]P Repository 08/02/2018 [id number] [facility] Repository 08/01/2018 [id number] [facility] ing:MED[facility]P Repository 07/31/2018 [id number] [facility] [place] [facility] ing:MED[facility]P Repository 07/30/2018 [id number] [facility] [place] [facility] ing:MED[facility]P Repository 07/29/2018 [id number] [facility] [place] [facility] ing:MED[facility]P Repository 07/23/2018/07/23/20 [id number] [facility]ulatory [facility] [address] [place] [address] HospitalBuild Hospital ing:LAB Repository 07/12/2018 [id number] [facility] ing:MEDOUTP Repository 07/11/2018 [id number] [facility] ing:MEDOUTP Repository 07/10/2018 [id number] Amb[facility] [place] [facility] ing:MEDOUTP Repository 07/09/2018 [id number] [facility] Repository 07/08/2018 [id number] [facility] [place] [facility] ing:MED[facility]P Repository 07/04/2018/07/05/20 [id number] Ambulatory [address] [place] Repository 06/26/2018/06/26/20 [id number] Ambulatory [facility] [address] [facility] Hospital ing:LAB Repository 06/21/2018 [id number] [facility]P Repository 06/20/2018 [id number] Ambulatory [place] [facility] HospitalBuild Hospital ing:MEDOUTP Repository 06/19/2018 [id number] [facility] [place] [facility] ing:MED[facility]P Repository 06/18/2018 [id number] [facility] ing:MED[facility]P Repository 06/17/2018 [id number] [facility]P Repository 06/13/2018/06/14/20 [id number] Ambulatory [address] [place] Repository 05/24/2018 [id number] [facility] ing:MED[facility]P Repository 05/23/2018 [id number] [facility] [place] [facility] ing:MED[facility]P Repository 05/22/2018 [id number] [facility]P Repository 05/21/2018 [id number] [facility] ing:MEDOUTP Repository 05/20/2018 [id number] [facility] ing:MEDOUTP Repository 05/18/2018/05/18/20 [id number] Ambulatory [facility] [address] [place] [address] HospitalBuild Hospital ing:LAB Repository 04/29/2018/04/29/20 [id number] Ambulatory [address] [place] Repository 04/29/2018/04/29/20 [id number] Ambulatory [address] [place] Repository 04/29/2018/05/03/20 [id number] Ambulatory [address] [place] Repository 04/29/2018/04/29/20 [id number] Ambulatory [address] [place] Repository 04/18/2018/04/22/20 [id number] Ambulatory [address] [place] Repository 04/16/2018/04/16/20 [id number] Ambulatory [place] [facility] [address] [place] [address] HospitalBuild Hospital ing:LAB Repository 04/12/2018/04/13/20 [id number] Ambulatory [address] Repository 04/06/2018/04/06/20 [id number] [place] HospitalBuild Hospital ing:MEDOUTP Repository 04/05/2018 [id number] Ambulatory [place] [facility] HospitalBuild Hospital ing:MEDOUTP Repository 04/04/2018 [id number] [facility] Repository 04/03/2018 [id number] [facility] ing:MED[facility]P Repository 04/02/2018 [id number] [facility] ing:MEDOUTP Repository 03/29/2018/04/01/20 [id number] Ambulatory [address] Repository 03/27/2018/03/27/20 [id number] [place] [address] [place] [address] HospitalBuild Hospital ing:LAB Repository 03/08/2018 [id number] [facility] [place] [facility] ing:MEDOUTP Repository 03/07/2018 [id number] [facility]:MED[facility]P Repository 03/06/2018 [id number] [facility] ing:MEDOUTP Repository 03/05/2018 [id number] Ambulatory [facility] HospitalBuild Hospital ing:MEDOUTP Repository 03/04/2018 [id number] Ambulatory [place] [facility] HospitalBuild Hospital ing:MEDOUTP Repository 02/27/2018/02/29/20 [id number] Ambulatory [address] Main [place] Repository 02/13/2018 [id number] [place] [facility] HospitalBuild Hospital ing:MEDOUTP Repository 02/11/2018/02/12/20 [id number] Ambulatory [place] [facility] [address] [place] [address] HospitalBuild Hospital ing:LAB Repository 02/08/2018 [id number] [place] [facility] HospitalBuild Hospital ing:MEDOUTP Repository 02/07/2018 [id number] Ambulatory [facility] [facility] HospitalBuild Hospital ing:MEDOUTP Repository 02/06/2018 [id number] Ambulatory [place] [facility] HospitalBuild Hospital ing:MEDOUTP Repository 02/05/2018 [id number] Ambulatory [place] [facility] HospitalBuild Hospital ing:MEDOUTP Repository 02/04/2018 [id number] Ambulatory [place] [facility] HospitalBuild Hospital ing:MEDOUTP Repository 01/18/2018 [id number] Ambulatory [place] [facility] [facility] HospitalBuild Hospital ing:MEDOUTP Repository 01/17/2018 [id number] Ambulatory [place] [facility] HospitalBuild Hospital ing:MEDOUTP Repository 01/16/2018 [id number] [facility] ing:MEDOUTP Repository 01/15/2018 [id number] [facility] ing:MEDOUTP Repository 01/14/2018 [id number] Ambulatory [place] [facility] HospitalBuild Hospital ing:MEDOUTP Repository 01/09/2018/01/12/20 [id number] Ambulatory [address] Main [place] Repository 01/09/2018/01/10/20 [id number] Ambulatory [place] [address] [place] [address] HospitalBuild Hospital ing:LAB Repository 01/03/2018 [id number] Ambulatory [place] [facility] HospitalBuild Hospital ing:MEDOUTP Repository 12/28/2017 [id number] [facility] ing:MEDOUTP Repository 12/27/2017 [id number] Ambulatory [place] [facility] HospitalBuild Hospital ing:MEDOUTP Repository 12/26/2017 [id number] [facility] 12/25/2017 [id number] [facility] Repository 12/24/2017 [id number] Ambulatory [facility] Hospital ing:MEDOUTP Repository 12/19/2017/12/19/19 [id number] Ambulatory [address] Repository 12/19/2017/12/19/19 [id number] [place] HospitalBuild Hospital ing:LAB Repository 12/07/2017 [id number] [facility] Rep[facility] 12/06/2017 [id number] [facility] Repository 12/05/2017 [id number] [facility] Repository 12/04/2017 [id number] [facility] ing[facility]P Repository 12/03/2017 [id number] [facility] Repository 11/28/2017/11/29/19 [id number] Ambulatory [address] Repository 11/28/2017/11/28/19 [id number] [place] Hospital ing:LAB Repository PAYERS PAYERS ENCOUNTER GUARANTOR PAYER SUBSCRIBER SOURCE 11/23/2018 IVA L Primary IVA L [place] [id number] [place] Insurance:MEDICAL MAIBACHDOB: [facility] [id number] [facility] [address]Ude: Number: Repository [id number] (HP) Date:1347-22-75RQ[address] [address]UI: 11/23/2018 Secondary NOT GIVENUNK [place] Insurance:SELF PAY [facility] Number: Effective Repository Date:2018-11-13 11/22/2018 IVA L Primary IVA L [place] [id number] [place] Insurance:MEDICAL MAIBACHDOB: [facility] [id number] [place] [address]Glv: Number: Repository [id number] (HP) Date:6853-23-00VJ [address] [address]XW: 11/22/2018 Secondary NOT GIVENUNK [place] Insurance:SELF PAY [facility] Number: Effective Repository Date:2018-11-13 11/21/2018 IVA L Primary IVA L [place] [id number] [place] Insurance:MEDICAL MAIBADOB: [facility] [id number] Memorial Hospital [address]Ppx: Number: Repository [id number] (HP) Date:5000-16-09RL [place] [id number]: 11/21/2018 Secondary NOT GIVENUNK [place] Insurance:SELF PAY [facility] Number: Effective Repository Date:2018-11-13 11/20/2018 IVA L Primary IVA L [place] [id number] [place] Insurance:MEDICAL MAIBACHDOB: [facility] [id number] Memorial Hospital [address]Njn: Number: Repository [id number] (HP) Date:7250-14-89MR [place] [phone]: 11/20/2018 Secondary NOT GIVENUNK [place] Insurance:SELF PAY [facility] Number: Effective Repository Date:2018-11-13 11/19/2018 IVA L Primary IVA L [place] [id number] [place] Insurance:MEDICAL MAIBACHDOB: [facility] [id number] Memorial Hospital [address]Jba: Number: Repository [id number] (HP) Date:3661-50-26KP [place] [id number]: 11/19/2018 Secondary NOT GIVENUNK [place] Insurance:SELF PAY [facility] Number: Effective Repository Date:2018-11-13 10/29/2018 IVA [place] Primary [place]A [place] [id number] [place] Insurance:MEDICAL MAIBACHDOB: [facility] [id number] Memorial Hospital [address]Glp: Number: Repository [id number] (HP) Date:0913-43-40EY [place] [phone]: 10/29/2018 Secondary NOT GIVENUNK [place] Insurance:SELF PAY [facility] Number: Effective Repository Date:2018-10-28 10/28/2018 JOSÉ MIGUEL Mark[place] Primary [place]A [place] [id number] [place] Insurance:MEDICAL MAIBACHDOB: [facility] [id number] Memorial Hospital [address]Jbi: Number: Repository [id number] (HP) Date:8686-55-94PF [place] [phone]: 10/28/2018 Secondary NOT GIVENUNK [place] Insurance:SELF PAY [facility] Number: Effective Repository Date:2018-09-17 10/25/2018 JOSÉ MIGUEL [place] Primary [place]A [place] [id number] [place] Insurance:MEDICAL MAIBACHDOB: [facility] [id number] Memorial Hospital [address]Yna: Number: Repository [id number] (HP) Date:7217-22-23LY [address] [address]CK: 10/25/2018 Secondary NOT GIVENUNK [place] Insurance:SELF PAY [facility] Number: Effective Repository Date:2018-08-29 10/11/2018 IVA [place]rell Primary IVA Ronit PatelCasa [id number] [place] Insurance:MEDICAL MAIBACHDOB: [facility] [id number] Hospital [place] [address]Hzj: Number: Repository [id number] (HP) Date:6323-99-03EX [facility] [address] [place] [address]KK: 10/11/2018 Secondary NOT G[place]ENUNK [place] Insurance:SELF PAY [facility] Number: Effective Repository Date:2018-09-17 10/10/2018 IVA L Primary IVA L [place] [id number] [place] Insurance:MEDICAL [facility] BILOXIB: [facility] [id number] Memorial Hospital [address]Cvj: Number: Repository [id number] (HP) Date:4111-19-56KT [place] [phone]: 10/10/2018 Secondary NOT GIVENUNK [place] Insurance:SELF PAY [facility] Number: Effective Repository Date:2018-09-17 10/09/2018 IVA L Primary IVA L [place] [id number] [place] Insurance:MEDICAL MAIBADOB: [facility] [id number] Memorial Hospital [address]Taj: Number: Repository [id number] (HP) Date:7407-66-90BT [place] [phone]: 10/09/2018 Secondary NOT GIVENUNK [place] Insurance:SELF PAY [facility] Number: Effective Repository Date:2018-09-17 10/08/2018 IVA L Primary IVA L [place] [id number] [place] Insurance:MEDICAL MAIBADOB: [facility] [id number] Memorial Hospital [address]Jxb: Number: Repository [id number] (HP) Date:9375-57-52HJ [address] [address]NZ: 10/08/2018 Secondary NOT GIVENUNK [place] Insurance:SELF PAY [facility] Number: Effective Repository Date:2018-09-17 10/07/2018 JOSÉ MIGUEL Mark[place] Primary IVA [place] [id number] [place] Insurance:MEDICAL MAIBACHDOB: [facility] [id number] Memorial Hospital [address]Bmp: Number: Repository [id number] (HP) Date:7135-20-24ZT [place] [phone]: 10/07/2018 Secondary NOT GIVENUNK [place] Insurance:SELF PAY [facility] Number: Effective Repository Date:2018-09-17 09/26/2018 IVA [place]rell Primary IVA [place] [id number] [place] Insurance:MEDICAL MAIBACHDOB: [facility] [id number] Memorial Hospital [address]Fya: Number: Repository [id number] (HP) Date:1106-94-88XS [place] [phone]: 09/26/2018 Secondary NOT GIVENUNK [place] Insurance:SELF PAY [facility] Number: Effective Repository Date:2018-09-18 09/17/2018 IVA Cottrell Primary IVA [place] [id number] [place] Insurance:MEDICAL MAIBACHDOB: [facility] [id number] Memorial Hospital [address]Xva: Number: Repository [id number] (HP) Date:0461-87-33JU [address] [address]IC: 09/17/2018 Secondary NOT GIVENUNK [place] Insurance:SELF PAY [facility] Number: Effective Repository Date:2018-09-17 09/13/2018 JOSÉ MIGUEL Mark[place] Primary IVA [place] [id number] [place] Insurance:MEDICAL MAIBACHDOB: [facility] [id number] Memorial Hospital [address]Toz: Number: Repository [id number] (HP) Date:2590-64-01GK [address] [address]YA: 09/13/2018 Secondary NOT GIVENUNK [place] Insurance:SELF PAY [facility] Number: Effective Repository Date:2018-09-05 09/12/2018 JOSÉ MIGUEL Mark[place] Primary IVA Ronit [place] [id number] [place] Insurance:MEDICAL MAIBACHDOB: [facility] [id number] Memorial Hospital [address]Tvc: Number: Repository [id number] (HP) Date:0094-15-64SG [place] [phone]: 09/12/2018 Secondary NOT GIVENUNK [place] Insurance:SELF PAY [facility] Number: Effective Repository Date:2018-09-05 09/11/2018 JOSÉ MIGUEL Mark[place] Primary IVA Ronit [place] [id number] [place] Insurance:MEDICAL MAIBACHDOB: [facility] [id number] Memorial Hospital [address]Zxl: Number: Repository [id number] (HP) Date:1774-97-23PN [place] [phone]: 09/11/2018 Secondary NOT GIVENUNK [place] Insurance:SELF PAY [facility] Number: Effective Repository Date:2018-09-05 09/10/2018 JOSÉ MIGUEL Mark[place] Primary IVA Ronit [place] [id number] [place] Insurance:MEDICAL MAIBACHDOB: [facility] [id number] Memorial Hospital [address]Gpc: Number: Repository [id number] (HP) Date:5942-58-67OV [place] [phone]: 09/10/2018 Secondary NOT GIVENUNK [place] Insurance:SELF PAY [facility] Number: Effective Repository Date:2018-09-05 09/09/2018 JOSÉ MIGUEL Markham Primary IVA [place] [id number] [place] Insurance:MEDICAL MAIBACHDOB: [facility] [id number] Memorial Hospital [address]Uvr: Number: Repository [id number] (HP) Date:3570-20-08KB [place] [phone]: 09/09/2018 Secondary NOT GIVENUNK [place] Insurance:SELF PAY [facility] Number: Effective Repository Date:2018-09-05 08/26/2018 JOSÉ MIGUEL Markham Primary IVA [place] [id number] [place] Insurance:MEDICAL MAIBACHDOB: [facility] [id number] Memorial Hospital [address]Pwp: Number: Repository [id number] (HP) Date:0456-13-22JS [place] [phone]: 08/26/2018 Secondary NOT GIVENUNK [place] Insurance:SELF PAY [facility] Number: Effective Repository Date:2018-07-31 08/06/2018 JOSÉ MIGUEL Markham Primary IVA [place] [id number] [place] Insurance:MEDICAL MAIBACHDOB: [facility] [id number] Memorial Hospital [address]Coe: Number: Repository [id number] (HP) Date:8043-69-32JL [place] [phone]: 08/06/2018 Secondary NOT GIVENUNK [place] Insurance:SELF PAY [facility] Number: Effective Repository Date:2018-08-05 08/02/2018 JOSÉ MIGUEL Mark[place] Primary IVA [place] [id number] [place] Insurance:[facility] [id number] Memorial Hospital [address]Ece: Number: Repository [id number] (HP) Date:5685-98-89XN [address] [place] [address]LM: 08/02/2018 Secondary NOT GIVENUNK [place] Insurance:SELF PAY [facility] Number: Effective Repository Date:2018-07-26 08/01/2018 JOSÉ MIGUEL Mark[place] Primary IVA Ronit [place] [id number] [place] Insurance:MEDICAL MAIBACHDOB: [facility] [id number] Memorial Hospital [address]Yae: Number: Repository [id number] (HP) Date:5837-78-01UO [address] [address]IK: 08/01/2018 Secondary NOT GIVENUNK [place] Insurance:SELF PAY [facility] Number: Effective Repository Date:2018-07-26 07/31/2018 JOSÉ MIGUEL Mark[place] Primary IVA Ronit [place] [id number] [place] Insurance:MEDICAL MAIBACHDOB: [facility] [id number] Memorial Hospital [address]Fvn: Number: Repository [id number] (HP) Date:8370-95-40QS [address] [address]VT: 07/31/2018 Secondary NOT GIVENUNK [place] Insurance:SELF PAY [facility] Number: Effective Repository Date:2018-07-26 07/30/2018 JOSÉ MIGUEL Markham Primary IVA Ronit [place] [id number] [place] Insurance:MEDICAL MAIBADOB: [facility] [id number] Memorial Hospital [address]Umd: Number: Repository [id number] (HP) Date:6700-63-05EN [address] [address]PF: 07/30/2018 Secondary NOT GIVENUNK [place] Insurance:SELF PAY [facility] Number: Effective Repository Date:2018-07-26 07/29/2018 JOSÉ MIGUEL Markham Primary IVA [place] [id number] [place] Insurance:MEDICAL MAIBACHDOB: [facility] [id number] Memorial Hospital [address]Mbk: Number: Repository [id number] (HP) Date:3030-25-12SG [place] [phone]: 07/29/2018 Secondary NOT GIVENUNK [place] Insurance:SELF PAY [facility] Number: Effective Repository Date:2018-07-26 07/23/2018 JOSÉ MIGUEL [place] [id number] [place] Insurance:MEDICAL MAIBACHDOB: [facility] [id number] Memorial Hospital [address]Bmt: Number: Repository [id number] (HP) Date:1668-14-14ZR [address] [address]NF: 07/23/2018 Secondary NOT GIVENUNK [place] Insurance:SELF PAY [facility] Number: Effective Repository Date:2018-07-02 07/12/2018 JOSÉ MIGUEL [place] [id number] [place] Insurance:MEDICAL MAIBACHDOB: [facility] [id number] Memorial Hospital [address]Hhh: Number: Repository [id number] (HP) Date:2999-55-95DC [address] [address]SF: 07/12/2018 Secondary NOT GIVENUNK [place] Insurance:SELF PAY [facility] Number: Effective Repository Date:2018-06-21 07/11/2018 JOSÉ MIGUEL Markham Primary IVA [place] [id number] [place] Insurance:MEDICAL MAIBACHDOB: [facility] [id number] Memorial Hospital [address]Sgp: Number: Repository [id number] (HP) Date:1357-27-11RD [address] [place] [address]QS: 07/11/2018 Secondary NOT GIVENUNK [place] Insurance:SELF PAY [facility] Number: Effective Repository Date:2018-06-21 07/10/2018 JOSÉ MIGUEL Markham Primary IVA Ronit [place] [id number] [place] Insurance:MEDICAL MAIBACHDOB: [facility] [id number] [place] [address]Mtf: Number: Repository [id number] (HP) Date:1762-19-95HK [address] [address]GP: 07/10/2018 Secondary NOT GIVENUNK [place] Insurance:SELF PAY [facility] Number: Effective Repository Date:2018-06-21 07/09/2018 JOSÉ MIGUEL Markham Primary IVA Ronit Larry [id number] [place] Insurance:MEDICAL MAIBACHDOB: [facility] [id number] Memorial Hospital [address]Rys: Number: Repository [id number] (HP) Date:1112-49-38FV [address] [address]PP: 07/09/2018 Secondary NOT GIVENUNK [place] Insurance:SELF PAY [facility] Number: Effective Repository Date:2018-06-21 07/08/2018 JOSÉ MIGUEL Markham [place]it [place] [id number] [place] Insurance:MEDICAL MAIBACHDOB: [facility] [id number] Memorial Hospital [address]Tsk: Number: Repository [id number] (HP) Date:6285-72-64WA [address] [address]PV: 07/08/2018 Secondary NOT GIVENUNK [place] Insurance:SELF PAY [facility] Number: Effective Repository Date:2018-06-21 06/26/2018 JOSÉ MIGUEL Markham Primary IVA Larry [id number] [place] Insurance:MEDICAL MAIBACHDOB: [facility] [id number] [place] [address]Eci: Number: Repository [id number] (HP) Date:8865-31-29BV [place] [address]WP: 06/26/2018 Secondary NOT GIVENUNK [place] Insurance:SELF PAY [facility] Number: Effective Repository Date:2018-05-30 06/21/2018 JOSÉ MIGUEL Markham Primary IVA Larry [id number] [place] Insurance:MEDICAL MAIBACHDOB: [facility] [id number] [place] [address]Nwe: Number: Repository [id number] (HP) Date:7222-25-10DP [address] [place], [place] [address]WP: 06/21/2018 Secondary NOT GIVENUNK [place] Insurance:SELF PAY [facility] Number: Effective Repository Date:2018-05-27 06/20/2018 JOSÉ MIGUEL Markham Primary IVA Larry [id number] [place] Insurance:MEDICAL MAIBACHDOB: [facility] [id number] [place] [address]Uoa: Number: Repository [id number] (HP) Date:9314-09-58HY [address] [address]JR: 06/20/2018 Secondary NOT GIVENUNK [place] Insurance:SELF PAY [facility] Number: Effective Repository Date:2018-05-27 06/19/2018 JOSÉ MIGUEL Markham Primary IVA Larry [id number] [place] Insurance:MEDICAL MAIBACHDOB: [facility] [id number] Memorial Hospital [address]Wlx: Number: Repository [id number] (HP) Date:0788-71-62EI [address] [address]HE: 06/19/2018 Secondary NOT GIVENUNK [place] Insurance:SELF PAY [facility] Number: Effective Repository Date:2018-05-27 06/18/2018 JOSÉ MIGUEL Markham Primary IVA Ronit Larry [id number] [place] Insurance:MEDICAL MAIBACHDOB: [facility] [id number] Memorial Hospital [address]Mhp: Number: Repository [id number] (HP) Date:9906-49-92DP [address] [address]ON: 06/18/2018 Secondary NOT GIVENUNK [place] Insurance:SELF PAY [facility] Number: Effective Repository Date:2018-05-27 06/17/2018 JOSÉ MIGUEL Markham Primary IVA Ronit Larry [id number] [place] Insurance:MEDICAL MAIBACHDOB: [facility] [id number] Memorial Hospital [address]Ank: Number: Repository [id number] (HP) Date:6827-89-64DU [address] [address]CX: 06/17/2018 Secondary NOT GIVENUNK [place] Insurance:SELF PAY [facility] Number: Effective Repository Date:2018-05-24 05/24/2018 José Miguel Markham Primary IVA Ronit [place] [id number] [place] Insurance:MEDICAL MAIBACHDOB: [facility] [id number] Memorial Hospital [address]Zkf: Number: Repository [id number] (HP) Date:2850-79-79YT [address] [address]CV: 05/24/2018 Secondary NOT GIVENUNK [place] Insurance:SELF PAY [facility] Number: Effective Repository Date:2018-04-18 05/23/2018 José Miguel Markham Primary IVA Larry [id number] [place] Insurance:MEDICAL MAIBACHDOB: [facility] [id number] [place] [address]Epj: Number: Repository [id number] (HP) Date:1732-97-74FO [place] [address]WP: 05/23/2018 Secondary NOT GIVENUNK [place] Insurance:SELF PAY [facility] Number: Effective Repository Date:2018-04-18 05/22/2018 José Miguel Markham Primary IVA Larry [id number] [place] Insurance:MEDICAL MAIBACHDOB: [facility] [id number] [place] [address]Dol: Number: Repository [id number] (HP) Date:2230-52-59SD [place] [address]WP: 05/22/2018 Secondary NOT GIVENUNK [place] Insurance:SELF PAY [facility] Number: Effective Repository Date:2018-04-18 05/21/2018 José Miguel Markham Primary IVA Larry [id number] [place] Insurance:MEDICAL MAIBACHDOB: [facility] [id number] [place] [address]Jdr: Number: Repository [id number] (HP) Date:4404-28-66SJ [place] [address]WP: 05/21/2018 Secondary NOT GIVENUNK [place] Insurance:SELF PAY [facility] Number: Effective Repository Date:2018-04-18 05/20/2018 José Miguel Markham Primary IVA Larry [id number] [place] Insurance:MEDICAL MAIBACHDOB: [facility] [id number] Memorial Hospital [address]Pfd: Number: Repository [id number] (HP) Date:8850-92-35YL [address] [address]AL: 05/20/2018 Secondary NOT GIVENUNK [place] Insurance:SELF PAY [facility] Number: Effective Repository Date:2018-04-18 05/18/2018 José Miguel Markham Primary IVA Ronit [place] [id number] [place] Insurance:MEDICAL MAIBACHDOB: [facility] [id number] Memorial Hospital [address]Qjs: Number: Repository [id number] (HP) Date:6203-44-81JM [address] [address]EF: 05/18/2018 Secondary NOT GIVENUNK [place] Insurance:SELF PAY [facility] Number: Effective Repository Date:2018-04-26 04/16/2018 José Miguel Markham Primary IVA Ronit [place] [id number] [place] Insurance:MEDICAL MAIBACHDOB: [facility] [id number] Memorial Hospital [address]Slq: Number: Repository [id number] (HP) Date:8615-42-48WV [address] [address]SU: 04/16/2018 Secondary NOT GIVENUNK [place] Insurance:SELF PAY [facility] Number: Effective Repository Date:2018-03-28 04/06/2018 José Miguel Markham Primary IVA Ronit [place] [id number] [place] Insurance:MEDICAL MAIBADOB: [facility] [id number] Memorial Hospital [address]Qgm: Number: Repository [id number] (HP) Date:7122-03-62DC [address] [address]UL: 04/06/2018 Secondary NOT GIVENUNK [place] Insurance:SELF PAY [facility] Number: Effective Repository Date:2018-03-07 04/05/2018 José Miguel Markham Primary IVA Larry [id number] [place] Insurance:MEDICAL MAIBACHDOB: [facility] [id number] Memorial Hospital [address]Ewu: Number: Repository [id number] (HP) Date:9057-05-47FS [address] [place], [place] [address]WP: 04/05/2018 Secondary NOT GIVENUNK [place] Insurance:SELF PAY [facility] Number: Effective Repository Date:2018-03-07 04/04/2018 José Miguel Markham Primary IVA Ronit [place] [id number] [place] Insurance:MEDICAL MAIBACHDOB: [facility] [id number] [place] [address]Oxg: Number: Repository [id number] (HP) Date:6409-83-92KH [address] [place], [place] [address]WP: 04/04/2018 Secondary NOT GIVENUNK [place] Insurance:SELF PAY [facility] Number: Effective Repository Date:2018-03-07 04/03/2018 José Miguel Markham Primary IVA Larry [id number] [place] Insurance:MEDICAL MAIBACHDOB: [facility] [id number] [place] [address]Clr: Number: Repository [id number] (HP) Date:1320-31-64GH [address] [place], [place] [address]WP: 04/03/2018 Secondary NOT GIVENUNK [place] Insurance:SELF PAY [facility] Number: Effective Repository Date:2018-03-07 04/02/2018 José Miguel Markham Primary IVA Larry [id number] [place] Insurance:MEDICAL MAIBACHDOB: [facility] [id number] [place] [address]Zjv: Number: Repository [id number] (HP) Date:3649-40-41VK [address] [place] [address]EJ: 04/02/2018 Secondary NOT GIVENUNK [place] Insurance:SELF PAY [facility] Number: Effective Repository Date:2018-03-07 03/27/2018 José Miguel Markham Primary IVA [place] [id number] [place] Insurance:MEDICAL MAIBACHDOB: [facility] [id number] Memorial Hospital [address]Cpc: Number: Repository [id number] (HP) Date:5410-80-62PS [place] [address]WP: 03/27/2018 Secondary NOT GIVENUNK [place] Insurance:SELF PAY [facility] Number: Effective Repository Date:2018-02-26 03/08/2018 José Miguel Markham Primary IVA Ronit [place] [id number] [place] Insurance:MEDICAL MAIBACHDOB: [facility] [id number] Memorial Hospital [address]Fck: Number: Repository [id number] (HP) Date:5502-77-73YM [address] [address]NS: 03/08/2018 Secondary NOT GIVENUNK [place] Insurance:SELF PAY [facility] Number: Effective Repository Date:2018-02-18 03/07/2018 José Miguel Markham Primary IVA Larry [id number] [place] Insurance:MEDICAL MAIBACHDOB: [facility] [id number] Memorial Hospital [address]Oik: Number: Repository [id number] (HP) Date:5825-59-94DC [address] [address]FJ: 03/07/2018 Secondary NOT GIVENUNK [place] Insurance:SELF PAY [facility] Number: Effective Repository Date:2018-02-18 03/06/2018 José Miguel Markham Primary IVA [place] [id number] [place] Insurance:MEDICAL MAIBACHDOB: [facility] [id number] [place] [address]Fcg: Number: Repository [id number] (HP) Date:1671-53-23RB [place] [address]WP: 03/06/2018 Secondary NOT GIVENUNK [place] Insurance:SELF PAY [facility] Number: Effective Repository Date:2018-02-18 03/05/2018 José Miguel Markham Primary IVA Larry [id number] [place] Insurance:MEDICAL MAIBACHDOB: [facility] [id number] [place] [address]Phv: Number: Repository [id number] (HP) Date:3072-34-84LG [place] [address]WP: 03/05/2018 Secondary NOT GIVENUNK [place] Insurance:SELF PAY [facility] Number: Effective Repository Date:2018-02-18 03/04/2018 José Miguel Larry [id number] [place] Insurance:MEDICAL MAIBADOB: [facility] [id number] [place] [address]Qcq: Number: Repository [id number] (HP) Date:9994-76-81WV [place] [address]WP: 03/04/2018 Secondary NOT GIVENUNK [place] Insurance:SELF PAY [facility] Number: Effective Repository Date:2018-02-18 02/13/2018 José Miguel Markham Primary IVA Larry [id number] [place] Insurance:MEDICAL MAIBADOB: [facility] [id number] [place] [address]Kxh: Number: Repository [id number] (HP) Date:1691-66-86QS [address] [address]TM: 02/13/2018 Secondary NOT GIVENUNK [place] Insurance:SELF PAY [facility] Number: Effective Repository Date:2018-02-12 02/11/2018 José Miguel Markham Primary IVA [place] [id number] [place] Insurance:MEDICAL MAIBACHDOB: [facility] [id number] Memorial Hospital [address]Fvi: Number: Repository [id number] (HP) Date:9629-27-03WS [place] [address]WP: 02/11/2018 Secondary NOT GIVENUNK [place] Insurance:SELF PAY [facility] Number: Effective Repository Date:2018-01-28 02/08/2018 José Miguel Markham Primary IVA Ronit PatelCasa [id number] [place] Insurance:MEDICAL MAIBACHDOB: [facility] [id number] Memorial Hospital [address]Cqu: Number: Repository [id number] (HP) Date:7189-11-38NZ [place] [address]WP: 02/08/2018 Secondary NOT GIVENUNK [place] Insurance:SELF PAY [facility] Number: Effective Repository Date:2018-01-25 02/07/2018 José Miguel Markham Primary IVA Pateloster [id number] [place] Insurance:MEDICAL MAIBACHDOB: [facility] [id number] Memorial Hospital [address]Djf: Number: Repository [id number] (HP) Date:0758-63-48HT [address] [address]YZ: 02/07/2018 Secondary NOT GIVENUNK [place] Insurance:SELF PAY [facility] Number: Effective Repository Date:2018-01-25 02/06/2018 José Miguel Markham Primary IVA [place] [id number] [place] Insurance:MEDICAL MAIBACHDOB: [facility] 1844-08-02SVPMimbres Memorial Hospital [address]Okn: Number: Repository [id number] (HP) Date:1236-35-50BM [place] [address]WP: 02/06/2018 Secondary NOT GIVENUNK [place] Insurance:SELF PAY [facility] Number: Effective Repository Date:2018-01-25 02/05/2018 José Miguel Markham Primary IVA [place] [id number] [place] Insurance:MEDICAL MAIBACHDOB: [facility] [id number] [place] [address]Uow: Number: Repository [id number] (HP) Date:2838-65-80VC [place] [address]WP: 02/05/2018 Secondary NOT GIVENUNK [place] Insurance:SELF PAY [facility] Number: Effective Repository Date:2018-01-25 02/04/2018 José Miguel Markham Primary IVA [place] [id number] [place] Insurance:MEDICAL MAIBACHDOB: [facility] [id number] [place] [address]Uye: Number: Repository [id number] (HP) Date:6846-42-00CN [place] 60[address]WP: 02/04/2018 Secondary NOT GIVENUNK [place] Insurance:SELF PAY [facility] Number: Effective Repository Date:2018-01-25 01/18/2018 José Miguel Larry [id number] [place] Insurance:MEDICAL MAIBACHDOB: [facility] [id number] [place] [address]Uxr: Number: Repository [id number] (HP) Date:3152-04-16TT [address] [address]NM: 01/18/2018 Secondary NOT GIVENUNK [place] Insurance:SELF PAY [facility] Number: Effective Repository Date:2018-01-17 01/17/2018 José Miguel Markham Primary IVA [place] [id number] [place] Insurance:MEDICAL MAIBACHDOB: [facility] [id number] Memorial Hospital [address]Kit: Number: Repository [id number] (HP) Date:6531-93-35JO [address] [address]DJ: 01/17/2018 Secondary NOT GIVENUNK [place] Insurance:SELF PAY [facility] Number: Effective Repository Date:2018-01-10 01/16/2018 José Miguel Markham Primary IVA [place] [id number] [place] Insurance:MEDICAL MAIBACHDOB: [facility] 9998-12-62IJEMimbres Memorial Hospital [address]Zcy: Number: Repository [id number] (HP) Date:3114-17-48VR [address] [address]BP: 01/16/2018 Secondary NOT GIVENUNK [place] Insurance:SELF PAY [facility] Number: Effective Repository Date:2018-01-10 01/15/2018 José Miguel Markham Primary IVA [place] [id number] [place] Insurance:MEDICAL MAIBADOB: [facility] [id number] Number: Repository [id number]: 330 [id number] [phone] (HP) Date:2600-54-27BW [address] [address]IW: 01/15/2018 Secondary NOT GIVENUNK [place] Insurance:SELF PAY [facility] Number: Effective Repository Date:2018-01-10 01/14/2018 José Miguel Markham Primary IVA [place] [id number] [place] Insurance:MEDICAL MAIBACHDOB: [facility] 1886-84-93YYZDuncansville, [place] Number: Repository [address]Izm: 330 [id number] [phone] (HP) Date:3453-54-53ND [address] [address]EL: 01/14/2018 Secondary NOT GIVENUNK [place] Insurance:SELF PAY [facility] Number: Effective Repository Date:2018-01-10 01/09/2018 José Miguel Markham Primary IVA [place] [id number] [place] Insurance:MEDICAL MAIBACHDOB: [facility] 1472-17-61GKEDuncansville, [place] Number: Repository [id number]: 330 [id number] [phone] (HP) Date:9623-24-55RD [place] [address]WP: 01/09/2018 Secondary NOT GIVENUNK [place] Insurance:SELF PAY [facility] Number: Effective Repository Date:2017-12-27 01/03/2018 José Miguel Markham Primary IVA Ronit [place] [id number] [place] Insurance:MEDICAL MAIBACHDOB: [facility] 9892-57-39VTEDuncansville, [place] Number: Repository [address]Azs: 330 [id number] [phone] (HP) Date:0743-88-52FN [address] [address]OY: 01/03/2018 Secondary NOT GIVENUNK [place] Insurance:SELF PAY [facility] Number: Effective Repository Date:2018-01-02 12/28/2017 José Miguel Markham Primary IVA Ronit [place] [id number] [place] Insurance:MEDICAL MAIBACHDOB: [facility] 3472-92-95PEWDuncansville, [place] Number: Repository [id number]: 330 [id number] [phone] (HP) Date:6184-10-87VX [address], [place] [address]QA: 12/28/2017 Secondary NOT GIVENUNK [place] Insurance:SELF PAY [facility] Number: Effective Repository Date:2017-12-07 12/27/2017 José Miguel Markham Primary IVA Larry [id number] [place] Insurance:[facility] 2332-02-69TYRMimbres Memorial Hospital [address]Wdu: Number: Repository [id number] (HP) Date:0148-09-58BJ [address], [place] [address]BS: 12/27/2017 Secondary NOT GIVENUNK [place] Insurance:SELF PAY [facility] Number: Effective Repository Date:2017-12-07 12/26/2017 José Miguel Markham Primary Insurance:[facility] Iva Larry [id number] [facility] Hospital[facility]: [facility] 5854-50-53DLGDuncansville, [place] Number: Repository [address]Hum: 330 [id number] [phone] (HP) Date:7504-41-76CB [facility] [address]YKLFQLAZU, [place] [address]FW: CHECK WEBSITE 12/26/2017 Secondary NOT GIVENUNK [place] Insurance:SELF PAY [facility] Number: Effective Repository Date:2017-12-07 12/25/2017 José Miguel Markham Primary Insurance:[facility] Iva Larry [id number] [facility] HospitalB: [facility] 8388-30-81WRSDuncansville, [place] Number: Repository [id number]: 330 [id number] [phone] (HP) Date:9071-97-01ST [address] [address]WOBGBWDSF, [place] [address]ZG: CHECK WEBSITE 12/25/2017 Secondary NOT GIVENUNK [place] Insurance:SELF PAY [facility] Number: Effective Repository Date:2017-12-07 12/24/2017 José Miguel Markham Primary Insurance:[facility] Iva Larry [id number] Neil [facility] CenterchD[facility]: [facility] 8175-21-16VYEDuncansville, [place] Number: Repository [address]Nby: 330 [id number] [phone] (HP) Date:1868-71-29KJ [address] [address]UNZFZOEVJ, [place] [address]CC: CHECK WEBSITE 12/24/2017 Secondary NOT GIVENUNK [place] Insurance:SELF PAY [facility] Number: Effective Repository Date:2017-12-07 12/19/2017 José Miguel Markham Primary Insurance:[facility] Iva Larry [id number] [facility] 4169-92-78HYHDuncansville, [place] Number: Repository [address]Jal: 330 [id number] [phone] (HP) Date:9440-37-02AM [address] [address]VUZPWZPEC, [place] [address]JV: CHECK WEBSITE 12/19/2017 Secondary NOT GIVENUNK [place] Insurance:SELF PAY [facility] Number: Effective Repository Date:2017-11-30 12/07/2017 José Miguel Markham Primary Insurance:[facility] Iva Larry [id number] [facility] 4848-61-38BCZDuncansville, [place] Number: Repository [address]Gco: 330 [id number] [phone] (HP) Date:0331-88-89FC [address] [address]VLRRBCYKJ, [place] [address]QN: CHECK WEBSITE 12/07/2017 Secondary NOT GIVENUNK [place] Insurance:SELF PAY [facility] Number: Effective Repository Date:2017-11-15 12/06/2017 José Miguel Markham Primary Insurance:[facility] Iva Larry [id number] [facility] HospitalD[facility]: [facility] 0082-59-03KUKDuncansville, [place] Number: Repository [address]Uie: 330 [id number] [phone] (HP) Date:2771-33-58EG [address] [address]QHGJBRUHE, [place] [address]OG: CHECK WEBSITE 12/06/2017 Secondary NOT GIVENUNK [place] Insurance:SELF PAY [facility] Number: Effective Repository Date:2017-11-15 12/05/2017 José Miguel Markham Primary Insurance:[facility] Iva Larry [id number] [facility]End[facility] 1359-78-18MIQDuncansville, [place] Number: Repository [address]Syi: 330 [id number] [phone] (HP) Date:1032-39-76OR [address] [address]YTDYFXKWP, [place] [address]NR: CHECK WEBSITE 12/05/2017 Secondary NOT GIVENUNK [place] Insurance:SELF PAY [facility] Number: Effective Repository Date:2017-11-15 12/04/2017 José Miguel Markham Primary Insurance:[facility] Iva Larry [id number] [facility] HospitalD[facility]: [facility] 2295-50-43TNWDuncansville, [place] Number: Repository [address]Bmc: 330 [id number] [phone] (HP) Date:7042-65-99YF [address] [address]EBOXMNABR, [place] [address]YI: CHECK WEBSITE 12/04/2017 Secondary NOT GIVENUNK [place] Insurance:SELF PAY [facility] Number: Effective Repository Date:2017-11-15 12/03/2017 José Miguel Markham Primary Insurance:[facility] Iva Larry [id number] [facility]: [facility] 3453-17-55QHCDuncansville, [place] Number: Repository [address]Sfd: 330 [id number] [phone] (HP) Date:0653-94-47WX [address] [address]SJYWBSARF, [place] [address]HU: CHECK WEBSITE 12/03/2017 Secondary NOT GIVENUNK [place] Insurance:SELF PAY [facility] Number: Effective Repository Date:2017-11-15 11/28/2017 José Miguel Markham Primary Insurance:[facility] Iva Larry [id number] [facility] 3327-72-27KPTDuncansville, [place] Number: Repository [id number]: (307) [id number] [phone] Date:7860-24-41UW [address] [address]BFIXHXYOT, [place] [address]SG: CHECK WEBSITE 11/28/2017 Secondary NOT GIVENUNK [place] Insurance:SELF PAY [facility] Number: Effective Repository Date:2017-10-29
== END ==
PROVIDERS: Family Provider Family Medicine; PCP Family Medicine; Referring Provider Internal Medicine Hematology & Oncology; Visit Provider Internal Medicine Hematology & Oncology
DX: Z51.11 Encounter for antineoplastic chemotherapy (principal); C56.9 Malignant neoplasm of unspecified ovary
CPT/HCPCS: 96367; 96413; A4216; J2405; J3490; J9351

== ENCOUNTER → 2018-11-21 12:49 | Outpatient (CLI) | payer OTHER, SELFPAY ==
[2018-10-11 13:21] VITALS: BMI 30.9
[2018-11-20 13:10] VITALS: BMI 29.7
[2018-11-21 12:56] VITALS: BP 147/82; PULSE 78; RESP 16; TEMP 36.6; O2SAT 99; BMI 29.7
== END ==
PROVIDERS: Family Provider Family Medicine; PCP Family Medicine; Referring Provider Internal Medicine Hematology & Oncology; Visit Provider Internal Medicine Hematology & Oncology
DX: Z51.11 Encounter for antineoplastic chemotherapy (principal); C56.9 Malignant neoplasm of unspecified ovary
CPT/HCPCS: 96367; 96413; J7050; A4216; J2405; J3490; J9351

== ENCOUNTER → 2018-11-22 12:59 | Outpatient (CLI) | payer OTHER, SELFPAY ==
[2018-10-11 13:21] VITALS: BMI 30.9
[2018-11-21 12:56] VITALS: BMI 29.7
[2018-11-22 13:05] VITALS: BP 131/78; PULSE 94; RESP 16; TEMP 36.5; O2SAT 100; BMI 29.7
== END ==
PROVIDERS: Family Provider Family Medicine; PCP Family Medicine; Referring Provider Internal Medicine Hematology & Oncology; Visit Provider Internal Medicine Hematology & Oncology
DX: Z51.11 Encounter for antineoplastic chemotherapy (principal); C56.9 Malignant neoplasm of unspecified ovary
CPT/HCPCS: 96367; 96413; J7050; A4216; J1453; J2405; J3490; J9351

== ENCOUNTER 2018-11-23 10:00 | Outpatient (CLI) | payer OTHER, SELFPAY ==
[2018-10-11 13:21] VITALS: BMI 30.9
[2018-11-22 13:05] VITALS: BMI 29.7
[2018-11-23 10:33] VITALS: BP 115/72; PULSE 71; RESP 18; TEMP 36.3; O2SAT 99; BMI 29.7
== END 2018-11-23 11:35 | disposition home or self-care (01) ==
LOC: MEDOUTP 10:01 → MS3 10:04
PROVIDERS: Family Provider Family Medicine; PCP Family Medicine; Referring Provider Internal Medicine Hematology & Oncology; Visit Provider Internal Medicine Hematology & Oncology
DX: Z51.11 Encounter for antineoplastic chemotherapy (principal); C56.9 Malignant neoplasm of unspecified ovary
CPT/HCPCS: 96367; 96413; J7050; A4216; J1453; J2405; J3490; J9035; J9351

== ENCOUNTER 2018-12-20 12:18 | Outpatient (RCR) | payer OTHER, SELFPAY ==
[2018-10-11 13:21] VITALS: BMI 30.9
[2018-12-03 10:34] LABS: Absolute Lymphocyte Count 1.37 X10^3/ul (0.83-4.51); Absolute Neutrophil Count 2.1 X10^3/uL (2.0-7.7); Eosinophil# 0.11 X10^3/uL; Eosinophils% 2.4 % (0-5); Hematocrit 28.4 % (37-47); Hemoglobin 9.1 g/dl (12.0-15.0); Lymphocyte # 1.37 X10^3/ul (4.0); Lymphocyte % 29.9 % (19-41); Mean Corpuscular Hgb 28.8 pg (27.0-32.0); Mean Corpuscular Volume 89.9 fL (81-99); Mean Platelet Vol. 10.4 fl (6.2-12.0); Monocyte# 0.98 X10^3/uL; Monocyte% 21.4 % (0-10); Neutrophil # 2.07 X10^3/uL (2.7-7.7); Neutrophil % 45.2 % (47-70); RBC Distribution Width CV 16.9 % (11.6-14.6); RBC Distribution Width SD 54.9 fl (35.1-43.9); Red Blood Count 3.16 M/mm3 (4.2-5.4); White Blood Count 4.6 K/mm3 (4.4-11.0)
[2018-12-03 10:37] LABS: Differential Indicated SCAN CRITERIA MET; POSITIVE COUNT YES; POSITIVE DIFFERENTIAL NO; POSITIVE MORPHOLOGY YES
[2018-12-03 10:38] LABS: Platelet Count 20 K/mm3 (150-450)
[2018-12-03 11:01] LABS: Differential Comment SCANNED
[2018-12-03 11:02] LABS: Platelet Estimate MKD DEC (ADEQ)
[2018-12-03 11:05] LABS: ALB/GLOB Ratio 0.9 RATIO (0.9-2.4); AST(SGOT) 45 U/L (15-37); Alanine Aminotransfer ALT/SGPT 91 U/L (13-56); Albumin, Serum 3.5 g/dL (3.2-5.0); Alkaline Phosphatase 258 U/L (45-117); Anion Gap 6 (5-15); BUN 12 mg/dL (7-18); BUN/Creat Ratio 15.8 RATIO (10-20); Calcium,Total 8.9 mg/dL (8.5-10.1); Chloride 104 mmol/L (98-107); Creatinine, Serum 0.76 mg/dL (0.55-1.02); EST Glomerular Filtration Rate 82 mL/min (>60); Est Glom Filt Rate - Afr Amer 100 mL/min (>60); Glucose 99 mg/dL (74-106); Potassium 3.6 mmol/L (3.5-5.1); Protein, Total 7.5 g/dL (6.4-8.2); Sodium Level 138 mmol/L (136-145)
[2018-12-03 14:55] LABS: Pathologist Review Reviewed
[2018-12-04 12:04] LABS: Cancer Antigen 125 90.2 U/mL (0.0-38.1)
[2018-12-05 07:44] LABS: Hemoglobin 9.2 g/dl (12.0-15.0); Mean Corp Hgb Conc 30.7 g/gl (32-36); Mean Corpuscular Hgb 28.1 pg (27.0-32.0); Mean Corpuscular Volume 91.7 fL (81-99); Mean Platelet Vol. 10.8 fl (6.2-12.0); RBC Distribution Width CV 16.7 % (11.6-14.6); RBC Distribution Width SD 53.5 fl (35.1-43.9); Red Blood Count 3.27 M/mm3 (4.2-5.4); White Blood Count 2.7 K/mm3 (4.4-11.0)
[2018-12-05 07:46] LABS: Differential Indicated MANUAL DIFF; POSITIVE COUNT YES; POSITIVE DIFFERENTIAL YES; POSITIVE MORPHOLOGY YES
[2018-12-05 08:05] LABS: Platelet Count 49 K/mm3 (150-450)
[2018-12-05 08:38] LABS: Lymphocyte 50 % (19-41); Monocyte 12 % (0-10); Neutrophil-Segmented 34 % (47-70); Platelet Estimate MKD DEC (ADEQ); Promyelocyte 4 (0-0); Red Cell Morphology NORM C+C NORMAL (NORM C&C); Total Cells Counted 100 (MANUAL DIFF)
[2018-12-05 08:39] LABS: Absolute Lymphocyte Count 1.35 X10^3/ul (0.83-4.51); Absolute Neutrophil Count 0.9 X10^3/uL (2.0-7.7); Lymphocyte # 1.35 X10^3/ul (4.0)
[2018-12-05 12:36] LABS: Pathologist Review Reviewed
[2018-12-20 13:40] LABS: Absolute Lymphocyte Count 1.25 X10^3/ul (0.83-4.51); Absolute Neutrophil Count 2.4 X10^3/uL (2.0-7.7); Basophil# 0.03 X10^3/uL; Basophil% 0.7 % (0-1); Eosinophil# 0.03 X10^3/uL; Eosinophils% 0.7 % (0-5); Lymphocyte # 1.25 X10^3/ul (4.0); Lymphocyte % 28.3 % (19-41); Mean Corp Hgb Conc 30.6 g/gl (32-36); Mean Corpuscular Hgb 28.8 pg (27.0-32.0); Mean Corpuscular Volume 94.2 fL (81-99); Monocyte# 0.66 X10^3/uL; Neutrophil # 2.44 X10^3/uL (2.7-7.7); Neutrophil % 55.3 % (47-70); Platelet Count 510 K/mm3 (150-450); RBC Distribution Width CV 19.7 % (11.6-14.6); Red Blood Count 3.82 M/mm3 (4.2-5.4); White Blood Count 4.4 K/mm3 (4.4-11.0)
[2018-12-20 13:41] LABS: Differential Indicated SCAN CRITERIA MET; POSITIVE COUNT NO; POSITIVE DIFFERENTIAL NO; POSITIVE MORPHOLOGY YES
[2018-12-20 13:55] LABS: ALB/GLOB Ratio 0.9 RATIO (0.9-2.4); AST(SGOT) 25 U/L (15-37); Alanine Aminotransfer ALT/SGPT 34 U/L (13-56); Albumin, Serum 3.9 g/dL (3.2-5.0); Alkaline Phosphatase 115 U/L (45-117); Anion Gap 7 (5-15); BUN 16 mg/dL (7-18); BUN/Creat Ratio 19.4 RATIO (10-20); Calcium,Total 9.1 mg/dL (8.5-10.1); Chloride 103 mmol/L (98-107); Creatinine, Serum 0.82 mg/dL (0.55-1.02); EST Glomerular Filtration Rate 75 mL/min (>60); Est Glom Filt Rate - Afr Amer 90 mL/min (>60); Globulin 4.3 g/dL (2.2-4.2); Glucose 87 mg/dL (74-106); Potassium 3.7 mmol/L (3.5-5.1); Protein, Total 8.2 g/dL (6.4-8.2); Sodium Level 139 mmol/L (136-145)
[2018-12-20 14:21] LABS: Anisocytosis 2+; Hypochromasia RARE; Platelet Estimate ADEQUATE (ADEQ)
[2018-12-21 09:28] LABS: Cancer Antigen 125 139.5 U/mL (0.0-38.1)
== END 2018-12-26 14:12 | disposition home or self-care (01) ==
LOC: LAB 12:18
PROVIDERS: Family Provider Family Medicine; PCP Family Medicine; Referring Provider Internal Medicine Hematology & Oncology; Visit Provider Internal Medicine Hematology & Oncology
DX: C56.1 Malignant neoplasm of right ovary (principal); C56.2 Malignant neoplasm of left ovary
CPT/HCPCS: 36415; 80053; 85025; 86304

== ENCOUNTER → 2018-12-23 08:58 | Outpatient (CLI) | payer OTHER, SELFPAY ==
[2018-11-23 10:33] VITALS: BMI 29.7
[2018-12-23 09:22] VITALS: BP 122/71; PULSE 88; RESP 18; TEMP 36.6; O2SAT 98; BMI 29.2
[2018-12-23 09:36] LABS: Color, Urine Yellow (Yellow); Glucose, Dipstick Normal (Normal); Ketone-Dipstick 5 mg/dl (Negative); Leukocyte Esterase-Dipstick 25 /ul (Negative); Nitrite-Dipstick Negative (Negative); Occult Blood-Urine Negative /ul (Negative); Protein-Dipstick 15 mg/dl (Negative); Specific Gravity, Urine 1.015 (1.002-1.030); Urine Bilirubin Dipstick Negative (Negative); Urine Clarity Clear (Clear); Urine Urobilinogen Normal (Normal)
[2018-12-23] MEDS: DiphenhydrAMINE 50 MG/ML Syringe 25 MG IV (10:38)
[2018-12-23 12:36] VITALS: BP 134/77; PULSE 77; RESP 18; TEMP 36.4; O2SAT 96
== END ==
PROVIDERS: Family Provider Family Medicine; PCP Family Medicine; Referring Provider Internal Medicine Hematology & Oncology; Visit Provider Internal Medicine Hematology & Oncology
DX: Z51.11 Encounter for antineoplastic chemotherapy (principal); C56.1 Malignant neoplasm of right ovary; C56.2 Malignant neoplasm of left ovary; C78.7 Secondary malignant neoplasm of liver and intrahepatic bile duct
CPT/HCPCS: 81002; 96367; 96376; 96413; 96415; 96417; J7050; J9045; J9267; A4216; J2405; J3490; J9035

== ENCOUNTER 2019-01-06 10:37 | Outpatient (RCR) | payer OTHER, SELFPAY ==
[2018-12-27 14:13] VITALS: BMI 29.7
[2019-01-06 11:22] LABS: Hematocrit 34.8 % (37-47); Hemoglobin 10.6 g/dl (12.0-15.0); Mean Corp Hgb Conc 30.5 g/gl (32-36); Mean Corpuscular Hgb 28.9 pg (27.0-32.0); Mean Corpuscular Volume 94.8 fL (81-99); Platelet Count 106 K/mm3 (150-450); RBC Distribution Width SD 61.6 fl (35.1-43.9); Red Blood Count 3.67 M/mm3 (4.2-5.4)
[2019-01-06 11:23] LABS: Differential Indicated MANUAL DIFF; POSITIVE COUNT YES; POSITIVE DIFFERENTIAL NO; POSITIVE MORPHOLOGY YES
[2019-01-06 11:43] LABS: Eosinophil 3 % (0-5); Lymphocyte 36 % (19-41); Metamyelocyte 1 % (0-1); Monocyte 14 % (0-10); Neutrophil-Segmented 46 % (47-70); Total Cells Counted 100 (MANUAL DIFF)
[2019-01-06 11:44] LABS: Anisocytosis 1+; Hypochromasia 1+; Platelet Estimate SLT DEC (ADEQ)
[2019-01-06 11:45] LABS: Absolute Lymphocyte Count 1.44 X10^3/ul (0.83-4.51); Absolute Neutrophil Count 1.8 X10^3/uL (2.0-7.7)
[2019-01-06 11:53] LABS: ALB/GLOB Ratio 0.9 RATIO (0.9-2.4); AST(SGOT) 26 U/L (15-37); Alanine Aminotransfer ALT/SGPT 48 U/L (13-56); Albumin, Serum 3.7 g/dL (3.2-5.0); Alkaline Phosphatase 143 U/L (45-117); Anion Gap 10 (5-15); BUN 13 mg/dL (7-18); BUN/Creat Ratio 15.6 RATIO (10-20); Calcium,Total 8.3 mg/dL (8.5-10.1); Chloride 101 mmol/L (98-107); Creatinine, Serum 0.84 mg/dL (0.55-1.02); EST Glomerular Filtration Rate 74 mL/min (>60); Est Glom Filt Rate - Afr Amer 89 mL/min (>60); Glucose 101 mg/dL (74-106); Potassium 3.7 mmol/L (3.5-5.1); Protein, Total 7.7 g/dL (6.4-8.2); Sodium Level 141 mmol/L (136-145)
[2019-01-07 09:48] LABS: Cancer Antigen 125 169.6 U/mL (0.0-38.1)
[2019-01-07 13:45] LABS: Pathologist Review Reviewed
== END 2019-01-06 11:00 | disposition home or self-care (01) ==
LOC: LAB 10:37
PROVIDERS: Family Provider Family Medicine; PCP Family Medicine; Referring Provider Internal Medicine Hematology & Oncology; Visit Provider Internal Medicine Hematology & Oncology
DX: C56.1 Malignant neoplasm of right ovary (principal); C56.2 Malignant neoplasm of left ovary
CPT/HCPCS: 36415; 80053; 85025; 86304

== ENCOUNTER → 2019-01-13 09:02 | Outpatient (CLI) | payer OTHER, SELFPAY ==
[2018-12-23 09:22] VITALS: BMI 29.2
[2018-12-27 14:13] VITALS: BMI 29.7
[2019-01-13 09:47] LABS: Absolute Lymphocyte Count 0.96 X10^3/ul (0.83-4.51); Absolute Neutrophil Count 13.1 X10^3/uL (2.0-7.7); Basophil# 0.01 X10^3/uL; Basophil% 0.1 % (0-1); Hematocrit 30.8 % (37-47); Lymphocyte # 0.96 X10^3/ul (4.0); Lymphocyte % 6.7 % (19-41); Mean Corp Hgb Conc 32.5 g/gl (32-36); Mean Corpuscular Hgb 29.7 pg (27.0-32.0); Mean Corpuscular Volume 91.4 fL (81-99); Mean Platelet Vol. 9.3 fl (6.2-12.0); Monocyte% 2.1 % (0-10); Neutrophil # 13.09 X10^3/uL (2.7-7.7); Neutrophil % 90.9 % (47-70); POSITIVE COUNT NO; POSITIVE DIFFERENTIAL NO; POSITIVE MORPHOLOGY NO; Platelet Count 324 K/mm3 (150-450); RBC Distribution Width CV 19.4 % (11.6-14.6); RBC Distribution Width SD 64.6 fl (35.1-43.9); Red Blood Count 3.37 M/mm3 (4.2-5.4); White Blood Count 14.4 K/mm3 (4.4-11.0)
[2019-01-13 09:53] VITALS: BP 107/60; PULSE 87; RESP 16; TEMP 36.6; O2SAT 98; BMI 29.7
[2019-01-13] MEDS: Famotidine 20mg IV Push Syringe Q12 300 MG IV (10:44)
== END ==
PROVIDERS: Family Provider Family Medicine; PCP Family Medicine; Referring Provider Internal Medicine Hematology & Oncology; Visit Provider Internal Medicine Hematology & Oncology
DX: Z51.11 Encounter for antineoplastic chemotherapy (principal); C56.1 Malignant neoplasm of right ovary; C56.2 Malignant neoplasm of left ovary
CPT/HCPCS: 36591; 85025; 96367; 96376; 96413; 96415; 96417; J7050; J9045; J9267; A4216; J2405; J3490; J9035

== ENCOUNTER 2019-01-27 10:58 | Outpatient (RCR) | payer OTHER, SELFPAY ==
[2019-01-24 12:42] VITALS: BMI 29.2
[2019-01-27 11:40] LABS: Absolute Lymphocyte Count 1.55 X10^3/ul (0.83-4.51); Absolute Neutrophil Count 5.9 X10^3/uL (2.0-7.7); Basophil# 0.02 X10^3/uL; Basophil% 0.2 % (0-1); Eosinophil# 0.24 X10^3/uL; Eosinophils% 2.9 % (0-5); Hematocrit 32.3 % (37-47); Hemoglobin 10.3 g/dl (12.0-15.0); Lymphocyte # 1.55 X10^3/ul (4.0); Mean Corp Hgb Conc 31.9 g/gl (32-36); Mean Corpuscular Hgb 29.3 pg (27.0-32.0); Monocyte# 0.45 X10^3/uL; Monocyte% 5.5 % (0-10); Neutrophil # 5.89 X10^3/uL (2.7-7.7); Neutrophil % 72.2 % (47-70); Platelet Count 159 K/mm3 (150-450); RBC Distribution Width CV 19.5 % (11.6-14.6); RBC Distribution Width SD 65.6 fl (35.1-43.9); Red Blood Count 3.51 M/mm3 (4.2-5.4); White Blood Count 8.2 K/mm3 (4.4-11.0)
[2019-01-27 11:48] LABS: Differential Indicated SCAN CRITERIA MET; POSITIVE COUNT NO; POSITIVE DIFFERENTIAL NO; POSITIVE MORPHOLOGY YES
[2019-01-27 12:13] LABS: ALB/GLOB Ratio 1.1 RATIO (0.9-2.4); AST(SGOT) 24 U/L (15-37); Alanine Aminotransfer ALT/SGPT 37 U/L (13-56); Alkaline Phosphatase 135 U/L (45-117); Anion Gap 7 (5-15); BUN 12 mg/dL (7-18); BUN/Creat Ratio 14.8 RATIO (10-20); Calcium,Total 8.7 mg/dL (8.5-10.1); Chloride 102 mmol/L (98-107); Creatinine, Serum 0.81 mg/dL (0.55-1.02); EST Glomerular Filtration Rate 76 mL/min (>60); Est Glom Filt Rate - Afr Amer 92 mL/min (>60); Globulin 3.7 g/dL (2.2-4.2); Glucose 107 mg/dL (74-106); Potassium 3.9 mmol/L (3.5-5.1); Protein, Total 7.7 g/dL (6.4-8.2); Sodium Level 139 mmol/L (136-145)
[2019-01-28 12:26] LABS: Cancer Antigen 125 101.2 U/mL (0.0-38.1)
== END 2019-02-25 16:00 | disposition home or self-care (01) ==
LOC: LAB 10:58
PROVIDERS: Family Provider Family Medicine; PCP Family Medicine; Referring Provider Internal Medicine Hematology & Oncology; Visit Provider Internal Medicine Hematology & Oncology
DX: C56.1 Malignant neoplasm of right ovary (principal); C56.2 Malignant neoplasm of left ovary
CPT/HCPCS: 36415; 80053; 85025; 86304

== ENCOUNTER → 2019-02-05 08:58 | Outpatient (CLI) | payer OTHER, SELFPAY ==
[2019-02-03 09:11] VITALS: BMI 29.7
[2019-02-05 09:40] VITALS: BP 144/81; PULSE 81; RESP 16; TEMP 36.3; O2SAT 98; BMI 29.5
[2019-02-05 09:44] LABS: Absolute Lymphocyte Count 1.04 X10^3/ul (0.83-4.51); Absolute Neutrophil Count 9.8 X10^3/uL (2.0-7.7); Basophil# 0.01 X10^3/uL; Basophil% 0.1 % (0-1); Hematocrit 31.6 % (37-47); Hemoglobin 10.3 g/dl (12.0-15.0); Lymphocyte # 1.04 X10^3/ul (4.0); Lymphocyte % 9.1 % (19-41); Mean Corp Hgb Conc 32.6 g/gl (32-36); Mean Corpuscular Hgb 29.9 pg (27.0-32.0); Mean Corpuscular Volume 91.9 fL (81-99); Mean Platelet Vol. 9.3 fl (6.2-12.0); Monocyte# 0.54 X10^3/uL; Monocyte% 4.7 % (0-10); Neutrophil # 9.82 X10^3/uL (2.7-7.7); Neutrophil % 85.4 % (47-70); Platelet Count 337 K/mm3 (150-450); RBC Distribution Width CV 19.9 % (11.6-14.6); Red Blood Count 3.44 M/mm3 (4.2-5.4); White Blood Count 11.5 K/mm3 (4.4-11.0)
[2019-02-05 09:46] LABS: Differential Indicated SCAN CRITERIA MET; POSITIVE COUNT NO; POSITIVE DIFFERENTIAL NO; POSITIVE MORPHOLOGY YES
[2019-02-05 09:47] LABS: Bacteria 0 SEEN /hpf (None Seen); Mucous, Urine 0 SEEN /hpf (<or=2+); Red Blood Cells-Urine 0 SEEN /hpf (0-5); White Blood Cells 0 SEEN /hpf (0-5)
[2019-02-05 09:55] LABS: ALB/GLOB Ratio 1.1 RATIO (0.9-2.4); AST(SGOT) 15 U/L (15-37); Alanine Aminotransfer ALT/SGPT 31 U/L (13-56); Albumin, Serum 3.9 g/dL (3.2-5.0); Alkaline Phosphatase 98 U/L (45-117); Anion Gap 7 (5-15); BUN 20 mg/dL (7-18); BUN/Creat Ratio 27.9 RATIO (10-20); Calcium,Total 8.7 mg/dL (8.5-10.1); Chloride 103 mmol/L (98-107); Creatinine, Serum 0.72 mg/dL (0.55-1.02); EST Glomerular Filtration Rate 88 mL/min (>60); Est Glom Filt Rate - Afr Amer 106 mL/min (>60); Estimated Creatinine Clearance 70.85 ml/min; Globulin 3.5 g/dL (2.2-4.2); Glucose 127 mg/dL (74-106); Potassium 3.6 mmol/L (3.5-5.1); Protein, Total 7.4 g/dL (6.4-8.2); Sodium Level 137 mmol/L (136-145)
[2019-02-05 10:01] LABS: Color, Urine Yellow (Yellow); Glucose, Dipstick Normal (Normal); Ketone-Dipstick Negative (Negative); Leukocyte Esterase-Dipstick 25 /ul (Negative); Nitrite-Dipstick Negative (Negative); Occult Blood-Urine Negative /ul (Negative); Protein-Dipstick Negative (Negative); Urine Bilirubin Dipstick Negative (Negative); Urine Clarity Clear (Clear); Urine Urobilinogen Normal (Normal)
[2019-02-05 10:07] LABS: Squamous Epithelial Cells - UA 0-5 SEEN /hpf (5-10)
[2019-02-05] MEDS: DiphenhydrAMINE 50 MG/ML Syringe 25 MG IV (10:15)
--- NOTE | 2019-02-05 12:55 | NURSING ---
Pt c/o nausea. Emesis x1. 's office notified. Awaiting further orders.
[2019-02-05] MEDS: proCHLORPERazine 10 MG/2 ML Vial IV (13:44)
[2019-02-06 16:00] LABS: Cancer Antigen 125 67.8 U/mL (0.0-38.1)
== END ==
PROVIDERS: Family Provider Family Medicine; PCP Family Medicine; Referring Provider Internal Medicine Hematology & Oncology; Visit Provider Internal Medicine Hematology & Oncology
DX: Z51.11 Encounter for antineoplastic chemotherapy (principal); C56.1 Malignant neoplasm of right ovary; C56.2 Malignant neoplasm of left ovary; C78.7 Secondary malignant neoplasm of liver and intrahepatic bile duct
CPT/HCPCS: 80053; 81001; 85025; 86304; 96367; 96375; 96413; 96415; 96417; J7050; J9045; J9267; A4216; J2405; J3490; J9035

== ENCOUNTER → 2019-03-03 08:57 | Outpatient (CLI) | payer OTHER, SELFPAY ==
[2019-02-05 09:40] VITALS: BMI 29.5
[2019-02-26 12:28] VITALS: BMI 29.7
[2019-03-03 09:24] VITALS: BP 141/86; PULSE 97; RESP 16; TEMP 36.6; O2SAT 99
[2019-03-03 09:48] LABS: Color, Urine Yellow (Yellow); Glucose, Dipstick Normal (Normal); Ketone-Dipstick Negative (Negative); Leukocyte Esterase-Dipstick 25 /ul (Negative); Nitrite-Dipstick Negative (Negative); Occult Blood-Urine Negative /ul (Negative); Protein-Dipstick 30 mg/dl (Negative); Urine Bilirubin Dipstick Negative (Negative); Urine Clarity Sl. Cloudy (Clear); Urine Urobilinogen Normal (Normal)
[2019-03-03 09:54] LABS: Absolute Lymphocyte Count 1.38 X10^3/ul (0.83-4.51); Absolute Neutrophil Count 7.9 X10^3/uL (2.0-7.7); Basophil# 0.01 X10^3/uL; Basophil% 0.1 % (0-1); Hematocrit 35.8 % (37-47); Hemoglobin 11.5 g/dl (12.0-15.0); Lymphocyte # 1.38 X10^3/ul (4.0); Lymphocyte % 14.2 % (19-41); Mean Corp Hgb Conc 32.1 g/gl (32-36); Mean Corpuscular Hgb 30.3 pg (27.0-32.0); Mean Corpuscular Volume 94.5 fL (81-99); Mean Platelet Vol. 9.2 fl (6.2-12.0); Monocyte# 0.38 X10^3/uL; Monocyte% 3.9 % (0-10); Neutrophil # 7.87 X10^3/uL (2.7-7.7); Neutrophil % 81.1 % (47-70); Platelet Count 434 K/mm3 (150-450); RBC Distribution Width CV 19.4 % (11.6-14.6); RBC Distribution Width SD 67.3 fl (35.1-43.9); Red Blood Count 3.79 M/mm3 (4.2-5.4); White Blood Count 9.7 K/mm3 (4.4-11.0)
[2019-03-03 09:56] LABS: Differential Indicated SCAN CRITERIA MET; POSITIVE COUNT NO; POSITIVE DIFFERENTIAL NO; POSITIVE MORPHOLOGY YES
[2019-03-03 10:03] LABS: AST(SGOT) 16 U/L (15-37); Alanine Aminotransfer ALT/SGPT 46 U/L (13-56); Albumin, Serum 3.8 g/dL (3.2-5.0); Alkaline Phosphatase 112 U/L (45-117); Anion Gap 4 (5-15); BUN 20 mg/dL (7-18); BUN/Creat Ratio 30.7 RATIO (10-20); Calcium,Total 9.2 mg/dL (8.5-10.1); Chloride 100 mmol/L (98-107); Creatinine, Serum 0.65 mg/dL (0.55-1.02); EST Glomerular Filtration Rate 98 mL/min (>60); Est Glom Filt Rate - Afr Amer 118 mL/min (>60); Globulin 3.9 g/dL (2.2-4.2); Glucose 119 mg/dL (74-106); Protein, Total 7.7 g/dL (6.4-8.2); Sodium Level 136 mmol/L (136-145)
[2019-03-03] MEDS: DiphenhydrAMINE 50 MG/ML Syringe 25 MG IV (10:48)
[2019-03-04 17:08] LABS: Cancer Antigen 125 40.3 U/mL (0.0-38.1)
== END ==
PROVIDERS: Family Provider Family Medicine; PCP Family Medicine; Referring Provider Internal Medicine Hematology & Oncology; Visit Provider Internal Medicine Hematology & Oncology
DX: Z51.11 Encounter for antineoplastic chemotherapy (principal); C56.1 Malignant neoplasm of right ovary; C56.2 Malignant neoplasm of left ovary; C78.7 Secondary malignant neoplasm of liver and intrahepatic bile duct
CPT/HCPCS: 36592; 80053; 81002; 85025; 86304; 96367; 96376; 96413; 96415; 96417; J7050; J9045; J9267; A4216; J1453; J2405; J3490; J9035

== ENCOUNTER 2019-03-18 14:22 | Outpatient (RCR) | payer OTHER, SELFPAY ==
[2019-03-03 17:24] VITALS: BMI 29.5
[2019-03-18 15:52] LABS: Absolute Lymphocyte Count 1.71 X10^3/ul (0.83-4.51); Absolute Neutrophil Count 2.9 X10^3/uL (2.0-7.7); Basophil# 0.02 X10^3/uL; Basophil% 0.4 % (0-1); Eosinophil# 0.11 X10^3/uL; Hematocrit 33.7 % (37-47); Hemoglobin 10.7 g/dl (12.0-15.0); Lymphocyte # 1.71 X10^3/ul (4.0); Lymphocyte % 31.7 % (19-41); Mean Corp Hgb Conc 31.8 g/gl (32-36); Mean Corpuscular Hgb 30.2 pg (27.0-32.0); Mean Corpuscular Volume 95.2 fL (81-99); Mean Platelet Vol. 10.1 fl (6.2-12.0); Monocyte# 0.58 X10^3/uL; Monocyte% 10.7 % (0-10); Neutrophil # 2.94 X10^3/uL (2.7-7.7); Neutrophil % 54.5 % (47-70); Platelet Count 190 K/mm3 (150-450); RBC Distribution Width CV 17.8 % (11.6-14.6); RBC Distribution Width SD 58.4 fl (35.1-43.9); Red Blood Count 3.54 M/mm3 (4.2-5.4); White Blood Count 5.4 K/mm3 (4.4-11.0)
[2019-03-18 15:58] LABS: POSITIVE COUNT NO; POSITIVE DIFFERENTIAL NO; POSITIVE MORPHOLOGY NO
[2019-03-18 16:18] LABS: AST(SGOT) 20 U/L (15-37); Alanine Aminotransfer ALT/SGPT 34 U/L (13-56); Albumin, Serum 3.8 g/dL (3.2-5.0); Alkaline Phosphatase 123 U/L (45-117); Anion Gap 8 (5-15); BUN 13 mg/dL (7-18); BUN/Creat Ratio 18.1 RATIO (10-20); Calcium,Total 9.1 mg/dL (8.5-10.1); Chloride 103 mmol/L (98-107); Creatinine, Serum 0.72 mg/dL (0.55-1.02); EST Glomerular Filtration Rate 87 mL/min (>60); Est Glom Filt Rate - Afr Amer 106 mL/min (>60); Globulin 3.9 g/dL (2.2-4.2); Glucose 82 mg/dL (74-106); Protein, Total 7.7 g/dL (6.4-8.2); Sodium Level 140 mmol/L (136-145)
[2019-03-20 16:06] LABS: Cancer Antigen 125 44.8 U/mL (0.0-38.1)
== END 2019-03-18 16:00 | disposition home or self-care (01) ==
LOC: LAB 14:22
PROVIDERS: Family Provider Family Medicine; PCP Family Medicine; Referring Provider Internal Medicine Hematology & Oncology; Visit Provider Internal Medicine Hematology & Oncology
DX: C56.1 Malignant neoplasm of right ovary (principal); C56.2 Malignant neoplasm of left ovary
CPT/HCPCS: 36415; 80053; 85025; 86304

== ENCOUNTER → 2019-03-31 08:36 | Outpatient (CLI) | payer OTHER, SELFPAY ==
[2019-03-03 17:24] VITALS: BMI 29.5
[2019-03-31 08:50] VITALS: BP 146/89; PULSE 108; RESP 16; TEMP 36.6; O2SAT 99; BMI 28.3
[2019-03-31 09:14] LABS: Color, Urine Yellow (Yellow); Glucose, Dipstick Normal (Normal); Ketone-Dipstick 5 mg/dl (Negative); Leukocyte Esterase-Dipstick 500 /ul (Negative); Nitrite-Dipstick Negative (Negative); Occult Blood-Urine Negative /ul (Negative); Protein-Dipstick 100 mg/dl (Negative); Urine Bilirubin Dipstick Negative (Negative); Urine Clarity Clear (Clear); Urine Urobilinogen Normal (Normal)
[2019-03-31 09:18] LABS: Absolute Lymphocyte Count 0.99 X10^3/ul (0.83-4.51); Hematocrit 34.3 % (37-47); Hemoglobin 11.3 g/dl (12.0-15.0); Lymphocyte # 0.99 X10^3/ul (4.0); Lymphocyte % 19.8 % (19-41); Mean Corp Hgb Conc 32.9 g/gl (32-36); Mean Corpuscular Hgb 30.6 pg (27.0-32.0); Mean Platelet Vol. 9.5 fl (6.2-12.0); Monocyte# 0.03 X10^3/uL; Monocyte% 0.6 % (0-10); Neutrophil # 3.97 X10^3/uL (2.7-7.7); Neutrophil % 79.6 % (47-70); Platelet Count 398 K/mm3 (150-450); RBC Distribution Width CV 16.5 % (11.6-14.6); RBC Distribution Width SD 56.1 fl (35.1-43.9); Red Blood Count 3.69 M/mm3 (4.2-5.4)
[2019-03-31 09:24] LABS: POSITIVE COUNT NO; POSITIVE DIFFERENTIAL NO; POSITIVE MORPHOLOGY NO
[2019-03-31 09:36] LABS: AST(SGOT) 17 U/L (15-37); Alanine Aminotransfer ALT/SGPT 25 U/L (13-56); Albumin, Serum 4.1 g/dL (3.2-5.0); Alkaline Phosphatase 94 U/L (45-117); Anion Gap 9 (5-15); BUN 16 mg/dL (7-18); BUN/Creat Ratio 19.8 RATIO (10-20); Calcium,Total 9.1 mg/dL (8.5-10.1); Chloride 103 mmol/L (98-107); Creatinine, Serum 0.81 mg/dL (0.55-1.02); EST Glomerular Filtration Rate 77 mL/min (>60); Est Glom Filt Rate - Afr Amer 93 mL/min (>60); Estimated Creatinine Clearance 62.18 ml/min; Globulin 4.1 g/dL (2.2-4.2); Glucose 148 mg/dL (74-106); Potassium 3.8 mmol/L (3.5-5.1); Protein, Total 8.2 g/dL (6.4-8.2); Sodium Level 139 mmol/L (136-145)
[2019-03-31] MEDS: DiphenhydrAMINE 50 MG/ML Syringe 25 MG IV (10:21)
[2019-03-31 19:09] LABS: Xtra Tube EP Lab EXTRA TUBE
== END ==
PROVIDERS: Family Provider Family Medicine; PCP Family Medicine; Referring Provider Internal Medicine Hematology & Oncology; Visit Provider Internal Medicine Hematology & Oncology
DX: Z51.11 Encounter for antineoplastic chemotherapy (principal); C56.1 Malignant neoplasm of right ovary; C56.2 Malignant neoplasm of left ovary; C78.7 Secondary malignant neoplasm of liver and intrahepatic bile duct
CPT/HCPCS: 80053; 81002; 85025; 96367; 96376; 96413; 96415; 96417; J7050; J9045; J9267; A4216; J1453; J2405; J3490; J9035

== ENCOUNTER 2019-04-14 09:35 | Outpatient (RCR) | payer OTHER, SELFPAY ==
[2019-03-03 17:24] VITALS: BMI 29.5
[2019-03-31 08:50] VITALS: BMI 28.3
[2019-04-14 12:40] LABS: Absolute Lymphocyte Count 1.34 X10^3/ul (0.83-4.51); Absolute Neutrophil Count 7.6 X10^3/uL (2.0-7.7); Basophil# 0.02 X10^3/uL; Basophil% 0.2 % (0-1); Eosinophil# 0.11 X10^3/uL; Eosinophils% 1.1 % (0-5); Hematocrit 33.8 % (37-47); Hemoglobin 10.8 g/dl (12.0-15.0); Lymphocyte # 1.34 X10^3/ul (4.0); Lymphocyte % 13.7 % (19-41); Mean Corpuscular Hgb 30.8 pg (27.0-32.0); Mean Corpuscular Volume 96.3 fL (81-99); Mean Platelet Vol. 10.8 fl (6.2-12.0); Monocyte# 0.56 X10^3/uL; Monocyte% 5.7 % (0-10); Neutrophil # 7.62 X10^3/uL (2.7-7.7); Neutrophil % 78.3 % (47-70); Platelet Count 147 K/mm3 (150-450); RBC Distribution Width SD 55.6 fl (35.1-43.9); Red Blood Count 3.51 M/mm3 (4.2-5.4); White Blood Count 9.8 K/mm3 (4.4-11.0)
[2019-04-14 12:47] LABS: AST(SGOT) 14 U/L (15-37); Alanine Aminotransfer ALT/SGPT 31 U/L (13-56); Albumin, Serum 3.8 g/dL (3.2-5.0); Alkaline Phosphatase 173 U/L (45-117); Anion Gap 11 (5-15); BUN 9 mg/dL (7-18); BUN/Creat Ratio 11.7 RATIO (10-20); Calcium,Total 8.9 mg/dL (8.5-10.1); Chloride 103 mmol/L (98-107); Creatinine, Serum 0.77 mg/dL (0.55-1.02); EST Glomerular Filtration Rate 81 mL/min (>60); Est Glom Filt Rate - Afr Amer 98 mL/min (>60); Globulin 3.7 g/dL (2.2-4.2); Glucose 99 mg/dL (74-106); Potassium 3.9 mmol/L (3.5-5.1); Protein, Total 7.5 g/dL (6.4-8.2); Sodium Level 143 mmol/L (136-145)
[2019-04-14 12:48] LABS: POSITIVE COUNT NO; POSITIVE DIFFERENTIAL NO; POSITIVE MORPHOLOGY NO
--- NOTE | 2019-04-14 13:40 | RAD_ITS ---
HISTORY: LEFT HIP PAIN EXAM: AP pelvis and 2 views of the left hip. Comparison study most recently is a CT scan of the abdomen and pelvis from November 06, 2017. Findings: Mild degenerative disc disease with scoliosis is similar. Surgical clips within the posterior right hemipelvis are unchanged. Phleboliths are unchanged. Bowel gas pattern is normal. Partial laminectomy versus spina bifida occulta at L5 is unchanged. No hip fracture is perceived. Soft tissue calcification inferior to the left lesser trochanter approves to be a probable osteochondroma on the CT scan. This is unchanged. RAD/HIP, UNI W/ Pelvis 2-3 Views IMPRESSION: No acute fracture. No dislocation. at 0314 Reported and signed by: He Graham MD Electronically Signed: He Graham MD at 3:12 EDT Tel , Service support ,
[2019-04-15 15:31] LABS: Cancer Antigen 125 61.3 U/mL (0.0-38.1)
== END 2019-04-14 10:00 | disposition home or self-care (01) ==
LOC: MTLAB 09:35
PROVIDERS: Family Provider Family Medicine; PCP Family Medicine; Referring Provider Internal Medicine Hematology & Oncology; Visit Provider Internal Medicine Hematology & Oncology
DX: C56.1 Malignant neoplasm of right ovary (principal); C56.2 Malignant neoplasm of left ovary
CPT/HCPCS: 36415; 73502; 80053; 85025; 86304

== ENCOUNTER → 2019-04-21 08:32 | Outpatient (CLI) | payer OTHER, SELFPAY ==
[2019-03-03 17:24] VITALS: BMI 29.5
[2019-03-31 08:50] VITALS: BMI 28.3
[2019-04-21 09:06] VITALS: BP 117/77; PULSE 84; RESP 16; TEMP 36.5; O2SAT 98; BMI 27.6
[2019-04-21 09:22] LABS: Color, Urine Yellow (Yellow); Glucose, Dipstick Normal (Normal); Ketone-Dipstick Negative (Negative); Leukocyte Esterase-Dipstick 25 /ul (Negative); Nitrite-Dipstick Negative (Negative); Occult Blood-Urine Negative /ul (Negative); Protein-Dipstick 15 mg/dl (Negative); Specific Gravity, Urine 1.025 (1.002-1.030); Urine Bilirubin Dipstick Negative (Negative); Urine Clarity Sl. Cloudy (Clear); Urine Urobilinogen Normal (Normal)
[2019-04-21] MEDS: DiphenhydrAMINE 50 MG/ML Syringe 25 MG IV (10:33)
== END ==
PROVIDERS: Family Provider Family Medicine; PCP Family Medicine; Referring Provider Internal Medicine Hematology & Oncology; Visit Provider Internal Medicine Hematology & Oncology
DX: Z51.11 Encounter for antineoplastic chemotherapy (principal); C56.1 Malignant neoplasm of right ovary; C56.2 Malignant neoplasm of left ovary; C78.7 Secondary malignant neoplasm of liver and intrahepatic bile duct
CPT/HCPCS: 81002; 96367; 96375; 96413; 96415; 96417; J7050; J9045; J9267; A4216; J1453; J2405; J3490; J9035

== ENCOUNTER 2019-05-07 12:30 | Outpatient (RCR) | payer OTHER, SELFPAY ==
[2019-03-03 17:24] VITALS: BMI 29.5
[2019-03-31 08:50] VITALS: BMI 28.3
--- NOTE | 2019-04-09 14:46 | HP.PTEVAL ---
Patient's Visit Information ANNA CUEVA is a 64 year old F referred to Physical Therapy by Omar Gross DO with a diagnosis of L foot drop. Date of Evaluation: 04/09/19 Physical Therapist: Brock Blake PT, ATC - Visit Plan Frequency: 2x /Week Duration: 4 Weeks Plan: L ankle stretching and strengthening, balance and proprio, bike, and HEP - Subjective Findings: Pt reports she has had L foot drop in her L foot for several years. Pt reports she was dx'd with ovarian cancer six years ago and has been having chemo ever since. Pt notes this may have been the cause for her pain, but also notes she has had LBP for several years as well and notes this may be what is causing her pain too. Pt reports she had a laminectomy performed 10 years ago form L3-5. Pt notes the pain in her LB went away, but has slowly returned over emmy past couple yeatrs. Pt notes she had an MRI which revealed bulging discs in her LB. Pt notes no sleep difficulty at this time. Pt also reports prolonged standing and sitting increases her pain while sitting helps to alleviate her pain. Pt reports she has had LB injections in the past. Pt currently notes No LBP at thsi time. - Objective Neuro: B LE sensation is WNL to light touch. ROM: L ankle DF= 10, PF= 35 degrees. R ankle DF= -5, PF= 45. MMT: R ankle 5/5 throughout. L ankle DF= 4-/5, ever= 4-/5, pF and inver= 5/5. Gait: Pt is able to ambulate greater than 1000 feet without having increased pain. Flexibility: L LE is WNL at this time - Goals Goal 1:: Increase L ankle DF strength x 1 grade to prevent foot drop from progressing Goal Time Frame: 4-6 Weeks Goal 2:: Increase DF ROM x 5-10 degrees to aid with preventing future falls Goal Time Frame: 4-6 Weeks Goal 3:: I with HEP Goal Time Frame: 4-6 Weeks - Rehabilitation Potential Physical Therapy Diagnosis: Pt has L LE weakness and difficulty with ambulation secondary to L LE neuropathy Rehabilitation Potential: Good - Anticipated Interventions Patient/Client Instruction: Educate patient on: Condition, Plan of Care For the Purpose of:: To improve self management Therapeutic Exercise to Include: Strength training, Endurance training, Balance training, Flexibilty training, Active ROM For the Purpose of:: To increase ROM, To improve muscle performance and motor function, To improve gait and locomotor functions Thank you for the opportunity to evaluate your patient. For Medicare and Medicare HMO plans, please review the plan of care and approve it. It will need to be FAXED BACK to us at [phone] for Medicare purposes. For Medicare only, by signing this I certify the plan of care. Please let me know if there are questions or concerns regarding this plan of care. Physician Signature: Date:
--- NOTE | 2019-05-07 13:23 | HP.PTDCSUM ---
HP - PT D/C Summary It has been my pleasure to treat ANNA CUEVA under orders from Omar Gross DO, for the diagnosis of L foot drop for a total of 8 visit(s). Discharge Date: Please see the following information for a summary of their discharge status. - Subjective Subjective: I am ready for discharge - Overall Improvement % Improvement: 25 - Objective Objective/Function: Pt feels 25% improvement at this time. No significant change in ROM and strength of L ankle. Pt is I with HEP - Goals Goal 1:: Increase L ankle DF strength x 1 grade to prevent foot drop from progressing Goal Progress: Not Progressing Goal 2:: Increase DF ROM x 5-10 degrees to aid with preventing future falls Goal Progress: Not Progressing Goal 3:: I with HEP Goal Progress: Goal Met - Plan Plan: Discontinue - D/C Information If there are questions or concerns regarding this patient's physical therapy, please feel free to call me at [phone]. Thank you for the referral of this patient. Sincerely, Brock Blake, PT, ATC
== END 2019-05-07 14:57 | disposition home or self-care (01) ==
LOC: PT 12:30
PROVIDERS: Family Provider Family Medicine; PCP Family Medicine; Referring Provider Internal Medicine Hematology & Oncology; Visit Provider Internal Medicine Hematology & Oncology
DX: M21.372 Foot drop, left foot (principal)
CPT/HCPCS: 97110; 97161

== ENCOUNTER 2019-05-07 13:37 | Outpatient (RCR) | payer OTHER, SELFPAY ==
[2019-04-21 09:06] VITALS: BMI 27.6
[2019-05-07 15:46] LABS: ALB/GLOB Ratio 1.1 RATIO (0.9-2.4); AST(SGOT) 14 U/L (15-37); Absolute Lymphocyte Count 1.17 X10^3/ul (0.83-4.51); Absolute Neutrophil Count 2.4 X10^3/uL (2.0-7.7); Alanine Aminotransfer ALT/SGPT 24 U/L (13-56); Albumin, Serum 3.9 g/dL (3.2-5.0); Alkaline Phosphatase 99 U/L (45-117); Anion Gap 8 (5-15); BUN 15 mg/dL (7-18); BUN/Creat Ratio 19.6 RATIO (10-20); Basophil# 0.01 X10^3/uL; Basophil% 0.2 % (0-1); Calcium,Total 9.2 mg/dL (8.5-10.1); Chloride 102 mmol/L (98-107); Creatinine, Serum 0.77 mg/dL (0.55-1.02); EST Glomerular Filtration Rate 81 mL/min (>60); Eosinophil# 0.05 X10^3/uL; Eosinophils% 1.2 % (0-5); Est Glom Filt Rate - Afr Amer 98 mL/min (>60); Globulin 3.6 g/dL (2.2-4.2); Glucose 90 mg/dL (74-106); Hematocrit 35.1 % (37-47); Hemoglobin 11.2 g/dl (12.0-15.0); Lymphocyte # 1.17 X10^3/ul (4.0); Lymphocyte % 28.1 % (19-41); Mean Corp Hgb Conc 31.9 g/gl (32-36); Mean Corpuscular Hgb 30.6 pg (27.0-32.0); Mean Corpuscular Volume 95.9 fL (81-99); Mean Platelet Vol. 9.8 fl (6.2-12.0); Monocyte# 0.48 X10^3/uL; Monocyte% 11.5 % (0-10); Neutrophil # 2.44 X10^3/uL (2.7-7.7); Neutrophil % 58.5 % (47-70); POSITIVE COUNT NO; POSITIVE DIFFERENTIAL NO; POSITIVE MORPHOLOGY NO; Platelet Count 206 K/mm3 (150-450); Potassium 4.1 mmol/L (3.5-5.1); Protein, Total 7.5 g/dL (6.4-8.2); RBC Distribution Width CV 16.3 % (11.6-14.6); RBC Distribution Width SD 56.5 fl (35.1-43.9); Red Blood Count 3.66 M/mm3 (4.2-5.4); Sodium Level 139 mmol/L (136-145); White Blood Count 4.2 K/mm3 (4.4-11.0)
[2019-05-09 18:05] LABS: Cancer Antigen 125 51.2 U/mL (0.0-38.1)
== END 2019-05-07 14:00 | disposition home or self-care (01) ==
LOC: MTLAB 13:37
PROVIDERS: Family Provider Family Medicine; PCP Family Medicine; Referring Provider Internal Medicine Hematology & Oncology; Visit Provider Internal Medicine Hematology & Oncology
DX: C56.1 Malignant neoplasm of right ovary (principal); C56.2 Malignant neoplasm of left ovary
CPT/HCPCS: 36415; 80053; 85025; 86304

== ENCOUNTER → 2019-05-09 10:30 | Outpatient (CLI) | payer OTHER, SELFPAY ==
[2019-03-31 08:50] VITALS: BMI 28.3
[2019-04-21 09:06] VITALS: BMI 27.6
[2019-05-09 11:00] VITALS: BP 122/78; PULSE 94; RESP 16; TEMP 36.3; O2SAT 98; BMI 27.8
[2019-05-09 11:05] LABS: Color, Urine Yellow (Yellow); Glucose, Dipstick Normal (Normal); Ketone-Dipstick Negative (Negative); Leukocyte Esterase-Dipstick Negative /ul (Negative); Nitrite-Dipstick Negative (Negative); Occult Blood-Urine Negative /ul (Negative); Protein-Dipstick Negative (Negative); Specific Gravity, Urine 1.005 (1.002-1.030); Urine Bilirubin Dipstick Negative (Negative); Urine Clarity Sl. Cloudy (Clear); Urine Urobilinogen Normal (Normal)
== END ==
PROVIDERS: Family Provider Family Medicine; PCP Family Medicine; Referring Provider Internal Medicine Hematology & Oncology; Visit Provider Internal Medicine Hematology & Oncology
DX: Z51.11 Encounter for antineoplastic chemotherapy (principal); C56.1 Malignant neoplasm of right ovary; C56.2 Malignant neoplasm of left ovary
CPT/HCPCS: 96367; 96375; 81002; 96413; 96415; 96417; J7050; J9045; A4216; J2405; J3490; J9035

== ENCOUNTER → 2019-06-23 08:51 | Outpatient (CLI) | payer OTHER, SELFPAY ==
[2019-05-09 11:00] VITALS: BMI 27.8
[2019-06-23 09:04] LABS: Absolute Lymphocyte Count 1.13 X10^3/uL (0.83-4.51); Absolute Neutrophil Count 10.5 X10^3/uL (2.0-7.7); Basophil# 0.01 X10^3/uL; Basophil% 0.1 % (0-1); Hematocrit 35.7 % (37-47); Lymphocyte # 1.13 X10^3/ul (4.0); Lymphocyte % 9.3 % (19-41); Mean Corp Hgb Conc 33.6 g/dL (32-36); Mean Corpuscular Hgb 32.6 pg (27.0-32.0); Mean Platelet Vol. 9.9 fl (6.2-12.0); Monocyte# 0.41 X10^3/uL; Monocyte% 3.4 % (0-10); NRBC Flagged by Analyzer 0.2 % (0-5); Neutrophil # 10.49 X10^3/uL (2.7-7.7); Neutrophil % 86.5 % (47-70); Platelet Count 417 K/mm3 (150-450); RBC Distribution Width CV 16.5 % (11.6-14.6); Red Blood Count 3.68 M/mm3 (4.2-5.4); White Blood Count 12.1 K/mm3 (4.4-11.0)
[2019-06-23 09:18] LABS: AST(SGOT) 15 U/L (15-37); Alanine Aminotransfer ALT/SGPT 21 U/L (13-56); Alkaline Phosphatase 85 U/L (45-117); Anion Gap 9 (5-15); BUN 24 mg/dL (7-18); BUN/Creat Ratio 25.3 RATIO (10-20); Calcium,Total 9.1 mg/dL (8.5-10.1); Chloride 104 mmol/L (98-107); Creatinine, Serum 0.95 mg/dL (0.55-1.02); EST Glomerular Filtration Rate 64 mL/min (>60); Est Glom Filt Rate - Afr Amer 77 mL/min (>60); Globulin 4.1 g/dL (2.2-4.2); Glucose 149 mg/dL (74-106); Protein, Total 8.1 g/dL (6.4-8.2); Sodium Level 137 mmol/L (136-145)
[2019-06-25 09:57] LABS: Cancer Antigen 125 57.6 U/mL (0.0-38.1)
== END ==
PROVIDERS: Family Provider Family Medicine; PCP Family Medicine; Referring Provider Internal Medicine Hematology & Oncology; Visit Provider Internal Medicine Hematology & Oncology
DX: C56.1 Malignant neoplasm of right ovary (principal); C56.2 Malignant neoplasm of left ovary
CPT/HCPCS: 80053; 85025; 86304

== ENCOUNTER → 2019-06-24 10:00 | Outpatient (CLI) | payer OTHER, SELFPAY ==
[2019-05-09 11:00] VITALS: BMI 27.8
[2019-06-24 10:08] VITALS: BP 147/85; PULSE 87; RESP 16; TEMP 36.6; O2SAT 97; BMI 29.0
[2019-06-24] MEDS: Famotidine 20mg IV Push Syringe Q24 300 MG IV (10:31)
[2019-06-24] MEDS: DiphenhydrAMINE 50 MG/ML Syringe 25 MG IV (10:37)
== END ==
PROVIDERS: Family Provider Family Medicine; PCP Family Medicine; Referring Provider Internal Medicine Hematology & Oncology; Visit Provider Internal Medicine Hematology & Oncology
DX: Z51.11 Encounter for antineoplastic chemotherapy (principal); C56.1 Malignant neoplasm of right ovary; C56.2 Malignant neoplasm of left ovary
CPT/HCPCS: 96367; 96376; 96413; 96415; 96417; J7050; J9045; J9267; A4216; J1453; J2405; J3490

== ENCOUNTER 2019-08-22 12:42 | Outpatient (RCR) | payer OTHER, SELFPAY ==
[2019-05-09 11:00] VITALS: BMI 27.8
[2019-06-24 10:08] VITALS: BMI 29.0
[2019-08-22 13:52] LABS: Absolute Lymphocyte Count 1.15 X10^3/uL (0.83-4.51); Absolute Neutrophil Count 3.3 X10^3/uL (2.0-7.7); Basophil# 0.02 X10^3/uL; Basophil% 0.4 % (0-1); Eosinophil# 0.05 X10^3/uL; Hematocrit 31.2 % (37-47); Hemoglobin 10.4 g/dL (12.0-15.0); Lymphocyte # 1.15 X10^3/ul (4.0); Lymphocyte % 23.2 % (19-41); Mean Corp Hgb Conc 33.3 g/dL (32-36); Mean Corpuscular Hgb 33.5 pg (27.0-32.0); Mean Corpuscular Volume 100.6 fL (81-99); Mean Platelet Vol. 10.7 fl (6.2-12.0); Monocyte# 0.42 X10^3/uL; Monocyte% 8.5 % (0-10); NRBC Flagged by Analyzer 0 % (0-5); Neutrophil # 3.28 X10^3/uL (2.7-7.7); Neutrophil % 66.3 % (47-70); Platelet Count 185 K/mm3 (150-450); RBC Distribution Width CV 16.9 % (11.6-14.6)
[2019-08-22 14:10] LABS: ALB/GLOB Ratio 1.1 RATIO (0.9-2.4); AST(SGOT) 22 U/L (15-37); Alanine Aminotransfer ALT/SGPT 43 U/L (13-56); Alkaline Phosphatase 138 U/L (45-117); Anion Gap 6 (5-15); BUN 11 mg/dL (7-18); BUN/Creat Ratio 15.1 RATIO (10-20); Chloride 103 mmol/L (98-107); Creatinine, Serum 0.73 mg/dL (0.55-1.02); EST Glomerular Filtration Rate 86 mL/min (>60); Est Glom Filt Rate - Afr Amer 104 mL/min (>60); Globulin 3.7 g/dL (2.2-4.2); Glucose 131 mg/dL (74-106); Protein, Total 7.7 g/dL (6.4-8.2); Sodium Level 137 mmol/L (136-145)
[2019-08-25 10:29] LABS: Cancer Antigen 125 78.4 U/mL (0.0-38.1)
== END 2019-08-22 18:00 | disposition home or self-care (01) ==
LOC: LAB 12:42
PROVIDERS: Family Provider Family Medicine; PCP Family Medicine; Referring Provider Internal Medicine Hematology & Oncology; Visit Provider Internal Medicine Hematology & Oncology
DX: C56.1 Malignant neoplasm of right ovary (principal); C56.2 Malignant neoplasm of left ovary
CPT/HCPCS: 36415; 80053; 85025; 86304

== ENCOUNTER → 2019-10-09 16:49 | Outpatient (CLI) | payer OTHER, SELFPAY ==
[2019-06-24 10:08] VITALS: BMI 29.0
--- NOTE | 2019-10-09 17:00 | RAD_ITS ---
STUDY: X-RAY - LUMBAR SPINE REASON FOR EXAM: Female, 64 years old. Left leg pain. Lower back pain. TECHNIQUE: 2 view(s) of the lumbar spine were obtained. COMPARISON: None FINDINGS: Mildly exaggerated lumbar lordosis. Levoscoliosis with a convexity at L1. There is slight anterolisthesis of L4 and L5. The alignment is otherwise preserved. There is multilevel endplate spondylosis of the lumbar vertebrae. Normal disc space heights. There is no evidence of acute fracture or loss of vertebral axial height. The soft tissue structures are unremarkable. RAD/Lumbar Spine 2 or 3 Views IMPRESSION: Degenerative changes of the spine, as detailed above. Electronically Signed: Roly Mauro DO at 23:50 EST Tel [phone], Service support ,
== END ==
PROVIDERS: Family Provider Family Medicine; PCP Family Medicine; Referring Provider Anesthesiology Pain Medicine; Visit Provider Anesthesiology Pain Medicine
DX: M54.5 Low back pain (principal); M79.605 Pain in left leg
CPT/HCPCS: 72100

== ENCOUNTER → 2019-11-05 12:16 | Outpatient (CLI) | payer OTHER, SELFPAY ==
[2019-06-24 10:08] VITALS: BMI 29.0
--- NOTE | 2019-11-05 12:20 | MRI_ITS ---
STUDY: MRI LUMBAR SPINE WITH AND WITHOUT CONTRAST REASON FOR EXAM: Female, 64 years old. back and left leg pain, H/O PRIOR BACK SX, OVARIAN CA TECHNIQUE: Standardized fat and water weighted pulse sequences were obtained in the sagittal and axial planes. IV yes yes was administered for the contrast portion of the examination. COMPARISON: 04/04/2017 FINDINGS: T12-L1: Normal endplates. Normal disc height, hydration and morphology. Normal bilateral facet joints. Normal central canal and bilateral lateral recesses. Normal bilateral intervertebral neural foramina. Normal lumbar lordosis. Moderate levoscoliosis centered at L2. Normal conus medullaris that terminates at the L1. L1-2: Normal endplates. Normal disc height, hydration and morphology. Normal bilateral facet joints. Normal central canal and bilateral lateral recesses. Normal bilateral intervertebral neural foramina. L2-3: Mild bilateral facet hypertrophy and ligament flavum hypertrophy. Disc desiccation but no disc protrusion, spinal stenosis, or neural foraminal stenosis. L3-4: Status post posterior decompression. Mild bilateral facet hypertrophy. No change in a mild bilobed disc protrusion which produces mild spinal stenosis and mild bilateral neural foraminal stenosis. L4-5: Status post posterior decompression. No change in the 2 mm of anterolisthesis of L4 and L5 with a moderate broad disc protrusion which produces a mild spinal stenosis with mild bilateral lateral recess stenosis, mild right neural foraminal stenosis, and moderate left neural foraminal stenosis with abutment of the left L4 nerve root laterally. L5-S1: Normal endplates. Normal disc height, hydration and morphology. Normal bilateral facet joints. Normal central canal and bilateral lateral recesses. Normal bilateral intervertebral neural foramina. Normal visualized sacral ala. Normal visualized paraspinous soft tissue structures. There is no demonstrated abnormal enhancement. MRI/Spine Lumbar W/WO Contrast IMPRESSION: No change from 04/04/2017. Electronically Signed: Sanya Turk MD at 14:58 EST Tel , Service support ,
[2019-11-05 12:55] LABS: CREATININE FINGERSTICK 0.8 mg/dL (0.55-1.02); EGFR FINGERSTICK > 60.0000 mL/min (>60)
== END ==
PROVIDERS: Family Provider Family Medicine; PCP Family Medicine; Referring Provider Anesthesiology Pain Medicine; Visit Provider Anesthesiology Pain Medicine
DX: M54.9 Dorsalgia, unspecified (principal); M79.606 Pain in leg, unspecified
CPT/HCPCS: 72158; A9575

== ENCOUNTER 2020-05-09 14:25 | Inpatient (IN) | payer OTHER, SELFPAY ==
[2019-06-24 10:08] VITALS: BMI 29.0
[2020-05-09] VITALS (10 sets, daily range): BP systolic 115–142; BP diastolic 68–105; PULSE 86–119; RESP 13–17; TEMP 36.4–37.3; O2SAT 89–100; BMI 28.3; BMI 28.5; BMI 28.6
[2020-05-09] MEDS: 0.9% Normal Saline 1,000 ML 999 ML IV (15:06)
[2020-05-09] MEDS: Acetaminophen 500 MG Tablet 1000 MG PO (15:06)
[2020-05-09 15:11] LABS: Absolute Lymphocyte Count 1.82 X10^3/uL (0.83-4.51); Absolute Neutrophil Count 10.6 X10^3/uL (2.0-7.7); Basophil# 0.03 X10^3/uL; Basophil% 0.2 % (0-1); Eosinophil# 0.03 X10^3/uL; Eosinophils% 0.2 % (0-5); Hemoglobin 10.5 g/dL (12.0-15.0); Lymphocyte # 1.82 X10^3/ul (4.0); Lymphocyte % 13.3 % (19-41); Mean Corp Hgb Conc 31.8 g/dL (32-36); Mean Corpuscular Hgb 30.7 pg (27.0-32.0); Mean Corpuscular Volume 96.5 fL (81-99); Mean Platelet Vol. 10.1 fl (6.2-12.0); Monocyte% 6.6 % (0-10); NRBC Flagged by Analyzer 0.2 % (0-5); Neutrophil % 77.7 % (47-70); Platelet Count 340 K/mm3 (150-450); RBC Distribution Width CV 18.4 % (11.6-14.6); Red Blood Count 3.42 M/mm3 (4.2-5.4); White Blood Count 13.7 K/mm3 (4.4-11.0)
--- NOTE | 2020-05-09 15:23 | ED.VISSUMM ---
- ER Visit Summary Date of Service: 05/09/20 Chief Complaint: Fever History of Present Illness: The patient is a [address] Morgan. She has a history of ovarian cancer and is on chemotherapy. Her last dose was April 19. She did get Neulasta as well. She reports that she has a fever that began yesterday and has been 101.4 at highest. She has had chills. She denies any sore throat or cough. No difficulty breathing or chest pain. She reports she is been nauseated, but is not vomited. Reports that she has diarrhea that comes and goes. She denies any dysuria or frequency. She has bilateral flank pain right greater than left that is 3 out of 10 in severity. She reports this comes and goes as well. She denies any other complaints. Patient denies any sick contacts. She has been wearing a mask when out. She has recently traveled to [place] and [place]. Physical Examination: Vitals: 99.1, 140/85, 119, 16, 95% room air which is not hypoxic. General: Well-nourished and well-developed. Head: Normocephalic atraumatic. Neck: Supple, no lymphadenopathy. No JVD. Nontender. Cardiovascular: Tachycardic regular rhythm. No murmurs. Respiratory: No respiratory distress. Clear to auscultation bilaterally. Abdominal: Soft, nontender, nondistended, normal bowel sounds. No guarding, rebound, or peritoneal signs. Back: Nontender. Extremities: Nontender, no edema. Skin: Normal color, no rash. Neurologic: Alert and oriented ?3. Cranial nerves II through XII are intact. Normal strength and sensation. Psych: Normal affect. Test Results: CBC shows a white count of 13.7 with 78 7 neutrophils, 13 lymphocytes, immature granulocytes of 2.0%. H&H is 10.5 and 33.0. Chem-7 shows a sodium 133, glucose 121. LFTs show an albumin of 3.1, globulin of 4.8, alk phos of 190, AST of 38. Coags are normal. UA is negative. COVID is negative. Magnesium is 1.5. Clinical Impression(s) from Imaging Studies Chest X-Ray 05/09/20 15:45 IMPRESSION: 1. Bibasilar peribronchial infiltrates suggesting bronchopneumonia. Follow-up x-ray recommended to ensure clearing. Electronically Signed: Abundio Burns MD (Brooks) at 16:24 EDT , Service support , Chest CTA 05/09/20 16:18 IMPRESSION: 1. No central or segmental pulmonary embolism. 2. Peribronchial thickening with mosaic attenuation/groundglass opacities that can be associated with infectious pneumonitis, edema as well as interstitial lung disease. Bronchiectasis. No cavitating process or organizing pneumonia seen. New since 2018. 3. Nodular soft tissue densities of the upper abdomen correlating to ovarian cancer/peritoneal implants (described on prior abdomen/pelvis CT of 11/16/2017. Electronically Signed: Abundio Burns MD (Brooks) at 16:53 EDT , Service support , Emergency Department Course and Treatment: Patient had an IV placed. She was given a liter normal saline. She was given Tylenol p.o. and meropenem IV. She is resting comfortably. Patient's pulse ox decreased to 89% on room air in the emerge department. She was placed on 2 L nasal cannula her pulse ox is currently 98%. Treatment Plan: Patient's CAT scan is very concerning for COVID-19. I suspect that she is a false negative. She was discussed with Dr. Gross and Dr. Rhodes. She will be admitted to the hospital for further evaluation and treatment. Disposition: Admitted in serious condition. Impression: 1. Pneumonia. 2. Possible COVID-19. 3. Hypoxia. 4. Ovarian cancer on chemotherapy. This note was generated with Pharnextation software. It may contain incorrect words, spelling, and punctuation that were not noted in review of the chart prior to signing ED Disposition - Plan for ED Patient: Referrals: Calixto Deras MD [STAFF PHYSICIAN] -
[2020-05-09 15:25] LABS: Bacteria 0 SEEN /hpf (None Seen); Mucous, Urine 0 SEEN /hpf (<or=2+); Red Blood Cells-Urine 0 SEEN /hpf (0-5); Squamous Epithelial Cells - UA 0 SEEN /hpf (5-10)
[2020-05-09 15:29] LABS: ALB/GLOB Ratio 0.6 RATIO (0.9-2.4); AST(SGOT) 38 U/L (15-37); Alanine Aminotransfer ALT/SGPT 44 U/L (13-56); Albumin, Serum 3.1 g/dL (3.2-5.0); Alkaline Phosphatase 190 U/L (45-117); Anion Gap 9 (5-15); BUN 17 mg/dL (7-18); BUN/Creat Ratio 18.3 RATIO (10-20); Calcium,Total 9.2 mg/dL (8.5-10.1); Chloride 98 mmol/L (98-107); Creatinine, Serum 0.93 mg/dL (0.55-1.02); EST Glomerular Filtration Rate 65 mL/min (>60); Est Glom Filt Rate - Afr Amer 78 mL/min (>60); Estimated Creatinine Clearance 55.71 ml/min; Globulin 4.8 g/dL (2.2-4.2); Glucose 121 mg/dL (74-106); Magnesium 1.5 mg/dL (1.6-2.6); Protein, Total 7.9 g/dL (6.4-8.2); Sodium Level 133 mmol/L (136-145)
[2020-05-09 15:34] LABS: Color, Urine Yellow (Yellow); Glucose, Dipstick Normal (Normal); Ketone-Dipstick Negative (Negative); Leukocyte Esterase-Dipstick 25 /ul (Negative); Nitrite-Dipstick Negative (Negative); Occult Blood-Urine Negative /ul (Negative); Protein-Dipstick 30 mg/dl (Negative); Specific Gravity, Urine 1.005 (1.002-1.030); Urine Bilirubin Dipstick Negative (Negative); Urine Clarity Clear (Clear); Urine Urobilinogen Normal (Normal); Urine pH 6.5 (5.0 - 8.0)
[2020-05-09 15:41] LABS: White Blood Cells 0-5 SEEN /hpf (0-5)
--- NOTE | 2020-05-09 15:45 | RAD_ITS ---
STUDY: X-RAY CHEST REASON FOR EXAM: Female, 65 years old. FEVER FOR FEW DAYS, ON CHEMO TECHNIQUE: PA and lateral views of the chest. COMPARISON: 03/08/2016 FINDINGS: Left chest port is stable. Reticular opacities of the bilateral lung bases are new since the prior study. No dense airspace consolidation. There is no demonstrated pleural abnormality. Normal size heart. Normal mediastinum and beka. Normal visualized pulmonary arteries. Normal visualized aortic arch and descending thoracic aorta. There is demineralization of the osseous structures. Normal visualized ribs, clavicles, and shoulders. There is no demonstrated abnormality of the visualized soft tissue structures of the upper abdomen. RAD/Chest PA and Lateral IMPRESSION: 1. Bibasilar peribronchial infiltrates suggesting bronchopneumonia. Follow-up x-ray recommended to ensure clearing. Electronically Signed: Abundio Burns MD (Brooks) at 16:24 EDT , Service support ,
[2020-05-09 15:46] LABS: International Normalized Ratio 1.1; Prothrombin Time (Protime)PT. 13.5 SECONDS (11.7-14.9)
[2020-05-09 16:15] LABS: Probe Check PASS; Specimen Processing Control PASS
--- NOTE | 2020-05-09 16:18 | CT_ITS ---
STUDY: CTA CHEST REASON FOR EXAM: Female, 65 years old. PT STATED DECREASED O2, CURRENTLY RECIEVING CHEMO, FEVER, HX OVARIAN CA RADIATION DOSAGE (If Supplied By Facility): CTDIvol = ( 12.15 ) mGy, DLP = ( 447.09 ) mGycm TECHNIQUE: The examination was performed with the intravenous administration of 100ML ISOVUE 370. Post-processing of the angiographic images was performed, with multiplanar reformation and 3D reconstruction. Individualized dose optimization techniques were used for this CT. COMPARISON: 12/06/2017 FINDINGS: Normal enhancement of the main pulmonary artery and right and left pulmonary arteries. Normal enhancement of the bilateral peripheral pulmonary arteries. There is no demonstrated pulmonary embolism. Normal thoracic aorta and visualized great vessels. There is no demonstrated aortic dissection. Normal heart and pericardium. Normal mediastinum. Normal hilar regions. Normal visualized trachea and bronchi. The lungs are hyper expanded, with flattening of the hemidiaphragms. There are scattered areas of mosaic attenuation with peribronchial groundglass opacities involving the bilateral upper lobes, lingula, right middle lobe and bilateral lower lobes. Mild peribronchial thickening is seen in the left lower lobe. No cavitating process. There is mild degree of central, cylindrical bronchiectasis. Normal pleura. Normal chest wall structures. There are degenerative changes of thoracic spine. There are nodular soft tissue densities of the left upper abdomen mesentery and omentum as well as anterior to the pancreatic body and in the hannah hepatis. CT/CTA Chest W/WO Contrast IMPRESSION: 1. No central or segmental pulmonary embolism. 2. Peribronchial thickening with mosaic attenuation/groundglass opacities that can be associated with infectious pneumonitis, edema as well as interstitial lung disease. Bronchiectasis. No cavitating process or organizing pneumonia seen. New since 2018. 3. Nodular soft tissue densities of the upper abdomen correlating to ovarian cancer/peritoneal implants (described on prior abdomen/pelvis CT of 11/16/2017. Electronically Signed: Abundio Burns MD (Brooks) at 16:53 EDT , Service support ,
--- NOTE | 2020-05-09 18:24 | HP.PCM_ITS ---
Problem List (1) Pneumonia Status: Acute History of Present Illness Date of Admission: 05/09/20 Chief Complaint: fever The patient is a 65 year old F who has been feeling well but started having a fever yesterday. Presented to the emergency room given the fact that she has ovarian cancer and chemotherapy and dexamethasone. Had a white count of 13,000 and underwent a chest x-ray and a CT angiogram showed some infiltrate. Patient denies any known exposure to COVID but the concern was that patient did have COVID. Patient did have a COVID swab performed in the emergency room which came back negative, however, there was concern that that may have not been done properly. This was not witnessed by myself. Patient was concerning for pneumonia and did receive a dose of IV meropenem. Patient denies any anosmia, dysgeusia nor cough. Patient was noted to be 88 to 89% on room air. [] Past Medical History Medical History: Medical History (Last Reviewed 05/09/20 @ 18:[address] 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 Hypertension I10 Allergies acetaminophen [From Percocet] Adverse Reaction (Verified 05/09/20 14:28) Itching codeine Adverse Reaction (Verified 05/09/20 14:28) Itching hydrocodone bitartrate [From Vicodin] Adverse Reaction (Verified 05/09/20 14:28) Itching oxycodone [From Percocet] Adverse Reaction (Verified 05/09/20 14:28) Itching tramadol HCl [From Ultram] Adverse Reaction (Verified 05/09/20 14:28) Itching Home Medications: Ambulatory Orders Medication Instructions Recorded Ambien 5 mg PO PRN PRN 03/26/14 Gabapentin [Neurontin] 900 mg PO QHS 03/26/14 Omeprazole [Prilosec] 20 mg PO PRN PRN 03/26/14 Magnesium Oxide [Mag-Ox 400] 400 mg PO BID 07/06/17 Olanzapine [Zyprexa] 10 mg PO QHS 11/15/17 Melatonin 10 mg PO QHS 12/24/17 Verapamil HCl [Verapamil ER] 240 mg PO QHS 05/21/18 Amlodipine [Norvasc] 5 mg PO DAILY 11/22/18 Dexamethasone 1 mg PO DAILY 07/12/20 Dexamethasone [Decadron] 8 mg PO PRN PRN 05/09/20 Folic Acid 1 mg PO DAILY 05/09/20 Surgical History: Surgical History (Last Updated 09/17/18 @ 13:52 by Ashleigh Jaimes) H/O: knee surgery Z98.890 History of appendectomy Z90.49 History of foot surgery Z98.890 S/P LORI (total abdominal hysterectomy) Z90.710 Smoking Status: Never smoker - *Family History Maternal Family History: Family History (Last Reviewed 05/09/20 @ 18:[address] Kaushik Rhodes, DO) Mother Breast cancer Review of Systems Constitutional: Reports: Fever. Denies: Anorexia, Night Sweats, Malaise, Weakness Eyes: Denies: Blurred vision, Double vision HEENT: Denies: Head Aches, Sinus Congestion, Sinus Drainage Cardiovascular: Denies: Chest Pain, Palpitations Respiratory: Denies: Cough, Shortness of breath at rest, Sputum production Gastrointestinal: Reports: Abdominal Pain, Diarrhea, - - bloating Genitourinary: Denies: Dysuria Musculoskeletal: Denies: Joint Pain, Joint Tenderness Skin: Denies: Rash, Wounds Neurological: Denies: Numbness, Tingling, Focal weakness Psychiatric: Denies: Anxiety, Depression Hematologic/ Lymphatic: Denies: Easy Bruising, Easy Bleeding, Hx of blood clot Comment: All review of systems were negative except as mentioned above in the history of present illness and the other review of systems. VTE Information - Inpt Only VTE Present on Admission: No VTE Mechan Device Prophylaxis: None VTE Pharm Prophylaxis ordered?: No Patient Problems: Active and Suspected Problems (Last Updated 09/17/18 @ 13:51 by Ashleigh Jaimes) Pneumonia (Acute) - Physical Exam Vitals/I&O's: Vital Signs Temp Pulse Resp BP Pulse Ox 36.8 C 93 16 133/93 H 99 05/09/20 18:01 05/09/20 18:01 05/09/20 18:01 05/09/20 18:01 05/09/20 18:01 Oxygen Flow Rate (L/min) 2 Oxygen Delivery Method Nasal Cannula Weight: 77.111 kg Body Mass Index (BMI) 28.3 Intake and Output for Last 24 Hours 07/10/20 07/11/20 07/12/20 23:59 23:59 23:59 Intake Total 1120 / 1120 Balance 1120 / 1120 General: Alert, Cooperative, No apparent distress HEENT: Atraumatic, - - no icterus Oral: Moist Mucosa, No Gingival or Mucosal Lesions/ Ulcerations Neck: No Nodes, Thyroid Normal Size and Texture Lungs: Normal air movement, - - bibasilar crackles Cardiovascular: Regular rate, Regular Rhythm, Normal S1, Normal S2, No murmurs Abdomen: Bowel Sounds Present, Soft, Non Tender, No Hepato-splenomegaly, Distended - slight, - - no fluid wave Extremities: No edema, No Calf Tenderness Skin: No rashes, No breakdown Musculoskeletal: No Tenderness to Palpation of Joints or Extremities, No Muscle Wasting Neurological: Sensory exam intact to light touch and pain, - - no clonus Psych/Mental Status: Normal Affect, Appropriate Laboratory Results 05/09/20 14:55: WBC 13.7 H, RBC 3.42 L, Hgb 10.5 L, Hct 33.0 L, MCV 96.5, MCH 30.7, MCHC 31.8 L, RDW Std Deviation 64.0 H, RDW Coeff of [place] 18.4 H, Plt Count 340, MPV 10.1, Immature Gran % (Auto) 2.000 H, Neut % (Auto) 77.7 H, Lymph % (Auto) 13.3 L, [place] % (Auto) 6.6, Eos % (Auto) 0.2, Baso % (Auto) 0.2, Absolute Neuts (auto) 10.6 H, Absolute Lymphs (auto) 1.82, Nucleated RBC % 0.2 05/09/20 14:55: PT 13.5, INR 1.1, APTT 30.0 05/09/20 14:55: Sodium 133 L, Potassium 4.0, Chloride 98, Carbon Dioxide 26.0, Anion Gap 9, BUN 17, Creatinine 0.93, Estim Creat Clear Calc 55.71, Est GFR (MDRD) Af Amer 78, Est GFR (MDRD) Non-Af 65, BUN/Creatinine Ratio 18.3, Glucose 121 H, Calcium 9.2, Phosphorus 4.0, Magnesium 1.5 L, Total Bilirubin 0.50, AST 38 H, ALT 44, Alkaline Phosphatase 190 H, Total Protein 7.9, Albumin 3.1 L, Globulin 4.8 H, Albumin/Globulin Ratio 0.6 L 05/09/20 14:55: Lactic Acid 2.0 05/09/20 15:08: COVID-19 ([place]) Negative 05/09/20 15:15: Urine Color Yellow, Urine Clarity Clear, Urine pH 6.5, Ur Specific [place] 1.005, Urine Protein 30 H, Urine Glucose (UA) Normal, Urine Ketones Negative, Urine Occult Blood Negative, Urine Nitrite Negative, Urine Bilirubin Negative, Urine Urobilinogen Normal, Ur Leukocyte Esterase 25 H, Urine RBC 0 SEEN, Urine WBC 0-5 SEEN, Ur Squamous Epith Cells 0 SEEN, Urine Bacteria 0 SEEN, Urine Mucus 0 SEEN CTA of the chest showed some bilateral groundglass opacity and some bronchiectasis. No catal[place] infiltrates. Current Medications Iopamidol (Contrast Allergy Check) 0 ml IV X1 LA Assessment/Plan All Active Problems (Last Updated 09/17/18 @ 13:51 by Ashleigh Jaimes) Pneumonia (Acute) Left breast mass (Acute) 1. Pneumonia: Favor this being more viral, such as COVID-19, rather than bacterial. Patient received IV meropenem in the emergency room. I will accept the patient on Rocephin and azithromycin for now. High concern for COVID and a COVID test was negative. I feel the COVID test was probably negative due to her recent onset of symptoms, which she would have a low viral load at this time, plus the test possibly being done inappropriately and also with the 30% chance of a false negative test. Will consult infectious disease for further evaluation and defer to infectious disease about the timing of another COVID-19 test. Patient will also have additional tests such as d-dimer, LDH pro calcitonin. Patient will be antibiotics as specified and will have additional pneumonia studies performed. 2. Ovarian cancer: Patient has abdominal masses. Patient has been having palliative chemotherapy over the past 4 years and recently has seen her Ca1 25 go up. Patient follows with Dr. Gross and will continue to follow-up with him. Continue with her Decadron. 3. Hyperglycemia: Not terribly elevated but will put the patient on sliding scale insulin for now. Likely exacerbated due to the underlying illness but also her chronic steroid use. 4. VTE prophylaxis: Given concern for COVID-19, patient will be enoxaparin 30 mg twice daily. 5. Advanced care planning: Discussed with the patient. Patient wished to be full CODE STATUS. Case discussed with the patient's at bedside. I advised him to get tested for COVID as outpatient and contact his doctor. Also recommended to the patient and her that anyone that they been exposed to in the past 2 weeks for them at make them aware and for them to discuss with their primary care physicians about getting tested. Inpatient E&M: 43965 Init Hosp L3
[2020-05-09 19:06] LABS: Reflex Lactate? Y
[2020-05-09 19:44] LABS: Fibrinogen 688 mg/dl (203-444)
[2020-05-09 19:56] LABS: D-Dimer Quantitative (DVT/PE) 4.95 FEU/ug/m (0.27-0.49)
[2020-05-09 20:29] LABS: Lactic Acid 0.8 mmol/L (0.4-1.9)
[2020-05-09 20:59] LABS: LDH 576 U/L (84-246)
[2020-05-09 22:00] LABS: Procalcitonin 0.16 ng/mL (0.00-0.09)
[2020-05-09] MEDS: 0.9% Saline Lock 10 ML Syringe IV ×2 (22:15→23:18)
[2020-05-09] MEDS: OLANZapine 10 MG Tablet PO (22:17)
[2020-05-09] MEDS: MELATONIN 10 MG TABLET PO (22:17)
[2020-05-09] MEDS: Verapamil SR 240 MG Tablet PO (22:17)
[2020-05-09] MEDS: Gabapentin 300 MG Capsule 900 MG PO (22:17)
[2020-05-09] MEDS: Enoxaparin 30 MG/0.3 ML Syringe SC (22:17)
[2020-05-09 22:35] LABS: Bedside Glucose 103 mg/dL (70-110)
[2020-05-10 05:17] VITALS: BP 108/74; PULSE 89; RESP 16; TEMP 36.8; O2SAT 96
[2020-05-10 05:42] LABS: Absolute Lymphocyte Count 1.41 X10^3/uL (0.83-4.51); Basophil# 0.03 X10^3/uL; Basophil% 0.3 % (0-1); Eosinophil# 0.05 X10^3/uL; Eosinophils% 0.5 % (0-5); Hematocrit 32.1 % (37-47); Hemoglobin 9.9 g/dL (12.0-15.0); Lymphocyte # 1.41 X10^3/ul (4.0); Lymphocyte % 13.5 % (19-41); Mean Corp Hgb Conc 30.8 g/dL (32-36); Mean Corpuscular Volume 100.6 fL (81-99); Mean Platelet Vol. 9.9 fl (6.2-12.0); Monocyte# 0.71 X10^3/uL; Monocyte% 6.8 % (0-10); NRBC Flagged by Analyzer 0 % (0-5); Neutrophil # 8.03 X10^3/uL (2.7-7.7); Neutrophil % 76.9 % (47-70); POSITIVE MORPHOLOGY YES; Platelet Count 315 K/mm3 (150-450); RBC Distribution Width CV 18.6 % (11.6-14.6); Red Blood Count 3.19 M/mm3 (4.2-5.4); White Blood Count 10.4 K/mm3 (4.4-11.0)
[2020-05-10 06:04] LABS: Anion Gap 9 (5-15); BUN 14 mg/dL (7-18); BUN/Creat Ratio 16.9 RATIO (10-20); Calcium,Total 8.6 mg/dL (8.5-10.1); Chloride 100 mmol/L (98-107); Creatinine, Serum 0.83 mg/dL (0.55-1.02); EST Glomerular Filtration Rate 74 mL/min (>60); Est Glom Filt Rate - Afr Amer 90 mL/min (>60); Estimated Creatinine Clearance 59.91 ml/min; Glucose 86 mg/dL (74-106); Potassium 4.3 mmol/L (3.5-5.1); Sodium Level 137 mmol/L (136-145)
[2020-05-10 06:09] LABS: Differential Indicated SCAN CRITERIA MET
[2020-05-10 06:13] LABS: Differential Comment SCANNED; Hypochromasia RARE; Microcytosis RARE
[2020-05-10] MEDS: amLODIPine 5 MG Tablet PO (08:12)
[2020-05-10] MEDS: Enoxaparin 30 MG/0.3 ML Syringe SC ×2 (08:13→23:00)
[2020-05-10] MEDS: Magnesium Oxide 400 MG Tablet PO ×2 (08:13→16:22)
[2020-05-10] MEDS: Folic Acid 1 MG Tablet PO (08:13)
--- NOTE | 2020-05-10 08:34 | PN_ITS ---
Patient Problems: Active and Suspected Problems (Last Reviewed 05/09/20 @ 18:[address] Kaushik Rhodes, DO) Pneumonia (Acute) Reason for Visit: Follow-up for pneumonia with suspicion of COVID-19 Objective: No fever, shortness of breath. BP controlled. Pulse ox 96% on 2 L of oxygen. No tachypnea. General: Alert, Oriented x3, Cooperative HEENT: Atraumatic, PERRLA, EOMI, Normocephalic Oral: No Gingival or Mucosal Lesions/ Ulcerations Neck: Supple, No JVD, Negative Carotid Bruits Lungs: Air entry diminished in bilateral lung bases. No crepitation/rhonchi, mild dyspnea on exertion Cardiovascular: Regular rate, Regular Rhythm, Normal S1, Normal S2, No murmurs Abdomen: Bowel Sounds Present, Soft, Non Tender, Non-Distended. No palpable mass. : No renal angle tenderness. No suprapubic tenderness. Extremities: No edema, Capillary Refill Less than 3 Seconds Skin: No rashes, No breakdown Musculoskeletal: No Tenderness to Palpation of Joints or Extremities Neurological: Cranial nerves II-XII grossly intact, Deep Tendon Reflexes 2+/4 and Symmetrical, Neuro grossly intact Psych/Mental Status: Normal Affect, Appropriate Vitals/I&O's: Vital Signs Temp Pulse Resp BP Pulse Ox 98.3 F 89 16 108/74 96 05/10/20 05:17 05/10/20 05:17 05/10/20 05:17 05/10/20 05:17 05/10/20 05:17 Oxygen Flow Rate (L/min) 2 Oxygen Delivery Method Nasal Cannula Weight: 169 lb 2 oz Body Mass Index (BMI) 28.5 Intake and Output for Last 24 Hours 05/08/20 05/09/20 05/10/20 23:59 23:59 23:59 Intake Total 1170 / 1470 787.25 / 787.25 Balance 1170 / 1470 787.25 / 787.25 Microbiology Past 72 Hours 05/09/20 15:15 Urine, Clean Catch Streptococcus pneumoniae Antigen (M - Final 05/09/20 15:15 Urine, Clean Catch Legionella Antigen - Final Laboratory Results 05/09/20 14:55: WBC 13.7 H, RBC 3.42 L, Hgb 10.5 L, Hct 33.0 L, MCV 96.5, MCH 30.7, MCHC 31.8 L, RDW Std Deviation 64.0 H, RDW Coeff of Chio 18.4 H, Plt Count 340, MPV 10.1, Immature Gran % (Auto) 2.000 H, Neut % (Auto) 77.7 H, Lymph % (Auto) 13.3 L, [place] % (Auto) 6.6, Eos % (Auto) 0.2, Baso % (Auto) 0.2, Absolute Neuts (auto) 10.6 H, Absolute Lymphs (auto) 1.82, Nucleated RBC % 0.2 05/09/20 14:55: PT 13.5, INR 1.1, APTT 30.0 05/09/20 14:55: Sodium 133 L, Potassium 4.0, Chloride 98, Carbon Dioxide 26.0, Anion Gap 9, BUN 17, Creatinine 0.93, Estim Creat Clear Calc 55.71, Est GFR (MDRD) Af Amer 78, Est GFR (MDRD) Non-Af 65, BUN/Creatinine Ratio 18.3, Glucose 121 H, Calcium 9.2, Phosphorus 4.0, Magnesium 1.5 L, Total Bilirubin 0.50, AST 38 H, ALT 44, Alkaline Phosphatase 190 H, Total Protein 7.9, Albumin 3.1 L, Globulin 4.8 H, Albumin/Globulin Ratio 0.6 L 05/09/20 14:55: Lactic Acid 2.0 05/09/20 14:55: Fibrinogen 688 H, D-Dimer Quant (PE/DVT) 4.95 H* 05/09/20 15:08: COVID-19 (SOULEYMANE) Negative 05/09/20 15:15: Urine Color Yellow, Urine Clarity Clear, Urine pH 6.5, Ur Specific Ruth 1.005, Urine Protein 30 H, Urine Glucose (UA) Normal, Urine Ketones Negative, Urine Occult Blood Negative, Urine Nitrite Negative, Urine Bilirubin Negative, Urine Urobilinogen Normal, Ur Leukocyte Esterase 25 H, Urine RBC 0 SEEN, Urine WBC 0-5 SEEN, Ur Squamous Epith Cells 0 SEEN, Urine Bacteria 0 SEEN, Urine Mucus 0 SEEN 05/09/20 19:45: Lactic Acid 0.8 05/09/20 19:45: Lactate Dehydrogenase 576 H, Troponin I < 0.015, C-React Prot Ext Range 157.00 H 05/09/20 19:45: Procalcitonin 0.16 H 05/09/20 22:25: POC Glucose 103 05/10/20 05:35: Sodium 137, Potassium 4.3, Chloride 100, Carbon Dioxide 28.0, Anion Gap 9, BUN 14, Creatinine 0.83, Estim Creat Clear Calc 59.91, Est GFR (MDRD) Af Amer 90, Est GFR (MDRD) Non-Af 74, BUN/Creatinine Ratio 16.9, Glucose 86, Calcium 8.6 05/10/20 05:35: WBC 10.4, RBC 3.19 L, Hgb 9.9 L, Hct 32.1 L, MCV 100.6 H, MCH 31.0, MCHC 30.8 L, RDW Std Deviation 68.0 H, RDW Coeff of Chio 18.6 H, Plt Count 315, MPV 9.9, Immature Gran % (Auto) 2.000 H, Neut % (Auto) 76.9 H, Lymph % (Auto) 13.5 L, [place] % (Auto) 6.8, Eos % (Auto) 0.5, Baso % (Auto) 0.3, Absolute Neuts (auto) 8.0 H, Absolute Lymphs (auto) 1.41, Nucleated RBC % 0, Differential Comment SCANNED, Hypochromasia RARE, Microcytosis RARE Current Medications Acetaminophen (Tylenol) 650 mg PO Q6H PRN PRN PRN Reason: Pain Score 1-10/Temp > 100.7 F Albuterol Sulfate (Ventolin Hfa (Sp)) 1 puff INHALATION Q2H PRN PRN PRN Reason: Shortness of Breath/Wheezing Amlodipine Besylate (Norvasc) 5 mg PO DAILY [facility] Last Admin: 05/10/20 08:12 Dose: 5 mg Documented by: Dexamethasone (Decadron) 8 mg PO UD PRN PRN Reason: DAYS PRE & POST CHEMO [facility] Last Admin: 05/10/20 08:14 Dose: 1 mg Documented by: Dextrose (D50w Syringe) 0 gm IV X1 PRN; Protocol PRN Reason: Hypoglycemia Enoxaparin Sodium (Lovenox) 30 mg SC BID [facility] Last Admin: 05/10/20 08:13 Dose: 30 mg Documented by: Folic Acid (Folic Acid) 1 mg PO DAILYCM [facility] Last Admin: 05/10/20 08:13 Dose: 1 mg Documented by: [facility] Admin: 05/09/20 22:17 Dose: 900 mg Documented by: Glucagon () 1 mg IM .X1 PRN PRN Reason: Hypoglycemia Ceftriaxone Sodium 2 gm/ (Sodium Chloride) 50 mls @ 100 mls/hr IV Q24@2200 [facility] Last Infusion: 05/09/20 23:09 Dose: Infused Documented by: Azithromycin 500 mg/ Dextrose 255 mls @ 250 mls/hr IV Q24@2200 [facility] Last Infusion: 05/10/20 00:07 Dose: Infused Documented by: Sodium Chloride () 250 mls @ 15 mls/hr IV .[id number] PRN PRN Reason: Saline Flush Last Infusion: 05/10/20 00:20 Dose: 0 mls/hr Documented by: Sodium Chloride () 250 mls @ 15 mls/hr IV .[id number] PRN PRN Reason: Additional IVPB Infusion Ibuprofen (Motrin) 400 mg PO Q4H PRN PRN PRN Reason: Pain Score 1-10/Temp > 100.7 F Insulin Human Lispro (Humalog Kwikpen (Bkc)) 0 unit SC TIDCM [facility]; Protocol Last Admin: 05/10/20 08:14 Dose: Not Given Documented by: Magnesium Oxide (Mag-Ox 400) [facility] Last Admin: 05/10/20 08:13 Dose: 400 mg Documented by: [facility]) [facility] Last Admin: 05/09/20 22:17 Dose: 10 mg Documented by: Olanzapine (Zyprexa) 10 mg PO QHS [facility] Last Admin: 05/09/20 22:17 Dose: 10 mg Documented by: Ondansetron HCl (Zofran) 4 mg IV Q8H PRN PRN PRN Reason: NAUSEA/VOMITING Pantoprazole Sodium (Protonix) 20 mg PO DAILY PRN PRN PRN Reason: HEARTBURN Sodium Chloride () 10 - 40 ml IV UD PRN PRN Reason: SALINE FLUSH Last Admin: 05/09/20 23:18 Dose: 10 ml Documented by: Verapamil HCl (Calan Sr) [facility] Last Admin: 05/09/20 22:17 Dose: 240 mg Documented by: Zolpidem Tartrate (Ambien (Generic)) 5 mg PO QHS PRN PRN PRN Reason: SLEEP STROKE Vital Signs/Narrative: Vital Signs Temp Pulse Resp BP Pulse Ox 05/10/20 05:17 98.3 F 89 16 108/74 96 Medical Necessity - Tobacco Use Smoking Status: Never smoker Tobacco Use: Non-smoker Assessment/Plan All Active Problems (Last Reviewed 05/09/20 @ 18:[address] Kaushik Rhodes, DO) Pneumonia (Acute) Left breast mass (Acute) 65-year-old female with history of ovarian cancer on chemotherapy, dexamethasone came to ER with fever along with leukocytosis chest x-ray and CT angiogram suggestive of infiltrate. 1. Viral possible pneumonia with suspicion of COVID-19: Patient is being admitted on MedSurg floor. Rocephin and Zithromax after meropenem given in the ED. ID consult. Initial COVID-19 PCR negative probably low viral load in early phase/mistiming of the PCR test. Discussed with ID. The patient has high d- dimer, LDH and CRP. Chest x-ray and chest CT reviewed. Chest CT shows peribronchial thickening with groundglass opacity suggestive of bronchopneumonia/interstitial viral pneumonia 2. Ovarian cancer: Patient has been having palliative chemotherapy over the past 4 years and recently increased in Ca125. Patient follows with Dr. Gross and continue to follow-up with him. Continue with her Decadron. 3. Hyperglycemia: Not terribly elevated but will put the patient on sliding scale insulin for now. Likely exacerbated due to the underlying illness but also her chronic steroid use. 4. VTE prophylaxis: Given concern for COVID-19, enoxaparin 30 mg twice daily. 5. Advanced care planning: Patient wished to be full CODE STATUS. Clinical Impression(s) from Imaging Studies Chest X-Ray 05/09/20 15:45 IMPRESSION: 1. Bibasilar peribronchial infiltrates suggesting bronchopneumonia. Follow-up x-ray recommended to ensure clearing. Chest CTA 05/09/20 16:18 IMPRESSION: 1. No central or segmental pulmonary embolism. 2. Peribronchial thickening with mosaic attenuation/groundglass opacities that can be associated with infectious pneumonitis, edema as well as interstitial lung disease. Bronchiectasis. No cavitating process or organizing pneumonia seen. New since 2018. 3. Nodular soft tissue densities of the upper abdomen correlating to ovarian cancer/peritoneal implants (described on prior abdomen/pelvis CT of 11/16/2017. Inpatient E&M: 73807 Subs Hosp L2
[2020-05-10 08:50] LABS: Bedside Glucose 68 mg/dL (70-110)
[2020-05-10 10:39] VITALS: BP 124/82; PULSE 84; RESP 16; TEMP 37.3; O2SAT 96
--- NOTE | 2020-05-10 10:40 | CASEMGMT ---
RN CM Assessment Note Intro role of CM to patient via phone. Patient is awake, alert and able to participate in assessment. COVID-19 DC Planning: Pt is well versed in COVID-19 isolation at home if needed on discharge. Updated that further information would be given to her on dc. Pt states they were on a beach vacation, but did wear masks and socially isolated. -She has area to self isolate at home -They have masks to wear -Family can bring food, prescriptions, etc to her home. -F/U with physician via phone/face visit on dc Presentation: fever, not feeling well. Diagnosis: pneumonia, possible COVID-19. First test was negative. Second test to be completed today @ 3 pm. PMH: ovarian cancer, PCP: Dr. Omar Gross- patient is still getting chemo treatments Specialists: Dr. Dee Curry Insurance: [facility] Preferred Pharmacy: [facility] Pres[facility] Benefit: yes LNOK: , Brady Del Toro Living Arrangements: Lives independently with her . Tranportation: Family DME: none currently. IF oxygen needed on dc, local DME list provided and patient prefers [employer]. Discussed process for oxygen set up including testing and portable tank to be brought to hospital. Green sheet with instructions to front of chart if patient is discharged later today. HHC: none SNF: none Patient DC Goals: Home DC Plan: Home on discharge with .. Home oxygen testing prior to dc, and [employer] DME company of choice. Holli TEJADA RN ACM
--- NOTE | 2020-05-10 15:27 | PCM.HP.ID ---
Problem List (1) Pneumonia Status: Acute Reason for Consult: suspected covid Consulted by: Dr. Araujo History of Present Illness: The patient is a 65 year old F with ovarian cancer, last chemo about 2-3 weeks ago via L chest port. No issues with port. No sick contacts. has been healthy, and she has been masking but not isolating. Took a trip to [place] a week ago, went out to dinner with out of state sister and friends the week before that. Came to ED 05/09 with 2 days of fever, chills at home. No other associated symptoms. No change in taste/smell, no dysuria, no aches, no cough or SOB. Came to ED, started on azithro/ceftriaxone, on O2, covid neg but in isolation. Feeling fine, no further fever, still on 2L NC. Full ROS performed and neg except as noted above. Mild intermittent nausea and diarrhea, typical of chemo. - Medical History Surgical History: reviewed. Allergies/Adverse Reactions: Allergies acetaminophen [From Percocet] Adverse Reaction (Verified 05/09/20 14:28) Itching codeine Adverse Reaction (Verified 05/09/20 14:28) Itching hydrocodone bitartrate [From Vicodin] Adverse Reaction (Verified 05/09/20 14:28) Itching oxycodone [From Percocet] Adverse Reaction (Verified 05/09/20 14:28) Itching tramadol HCl [From Ultram] Adverse Reaction (Verified 05/09/20 14:28) Itching Home Medications: Ambulatory Orders Medication Instructions Recorded Ambien 5 mg PO PRN PRN 03/26/14 Gabapentin [Neurontin] 900 mg PO QHS 03/26/14 Omeprazole [Prilosec] 20 mg PO PRN PRN 03/26/14 Magnesium Oxide [Mag-Ox 400] 400 mg PO BID 07/06/17 Olanzapine [Zyprexa] 10 mg PO QHS 11/15/17 Melatonin 10 mg PO QHS 12/24/17 Verapamil HCl [Verapamil ER] 240 mg PO QHS 05/21/18 Amlodipine [Norvasc] 5 mg PO DAILY 11/22/18 Dexamethasone 1 mg PO DAILY 05/09/20 Dexamethasone [Decadron] 8 mg PO PRN PRN 05/09/20 Folic Acid 1 mg PO DAILY 07/12/20 - Social History Lives: with Tobacco Use: non-smoker Vital Signs Temp Pulse Resp BP Pulse Ox 99.1 F 84 16 124/82 H 96 05/10/20 10:39 05/10/20 10:39 05/10/20 10:39 05/10/20 10:39 05/10/20 10:39 Oxygen Flow Rate (L/min) 2 Oxygen Delivery Method Nasal Cannula Weight: 76.714 kg Body Mass Index (BMI) 28.5 Microbiology Past 72 Hours 05/09/20 15:15 Urine Culture - Preliminary Urine, Clean Catch Beta streptococcus 05/09/20 15:15 Streptococcus pneumoniae Antigen (M - Final Urine, Clean Catch 05/09/20 15:15 Legionella Antigen - Final Urine, Clean Catch Laboratory Tests Past 24 Hrs 05/09/20 05/09/20 05/09/20 14:55 14:55 14:55 WBC RBC Hgb Hct MCV MCH MCHC RDW Std Deviation RDW Coeff of Chio Plt Count MPV Immature Gran % (Auto) Neut % (Auto) Lymph % (Auto) [place] % (Auto) Eos % (Auto) Baso % (Auto) Absolute Neuts (auto) Absolute Lymphs (auto) Nucleated RBC % Differential Comment Hypochromasia Microcytosis PT 13.5 INR 1.1 APTT 30.0 Fibrinogen D-Dimer Quant (PE/DVT) Sodium 133 L Potassium 4.0 Chloride 98 Carbon Dioxide 26.0 Anion Gap 9 BUN 17 Creatinine 0.93 Estim Creat Clear Calc 55.71 Est GFR (MDRD) Af Amer 78 Est GFR (MDRD) Non-Af 65 BUN/Creatinine Ratio 18.3 Glucose 121 H Lactic Acid 2.0 Calcium 9.2 Phosphorus 4.0 Magnesium 1.5 L Total Bilirubin 0.50 AST 38 H ALT 44 Alkaline Phosphatase 190 H Lactate Dehydrogenase Troponin I C-React Prot Ext Range Total Protein 7.9 Albumin 3.1 L Globulin 4.8 H Albumin/Globulin Ratio 0.6 L Procalcitonin Urine Color Urine Clarity Urine pH Ur Specific [place] Urine Protein Urine Glucose (UA) Urine Ketones Urine Occult Blood Urine Nitrite Urine Bilirubin Urine Urobilinogen Ur Leukocyte Esterase Urine RBC Urine WBC Ur Squamous Epith Cells Urine Bacteria Urine Mucus COVID-19 (SOULEYMANE) 05/09/20 05/09/20 05/09/20 14:55 15:08 15:15 WBC RBC Hgb Hct MCV MCH MCHC RDW Std Deviation RDW Coeff of Chio Plt Count MPV Immature Gran % (Auto) Neut % (Auto) Lymph % (Auto) [place] % (Auto) Eos % (Auto) Baso % (Auto) Absolute Neuts (auto) Absolute Lymphs (auto) Nucleated RBC % Differential Comment Hypochromasia Microcytosis PT INR APTT Fibrinogen 688 H D-Dimer Quant (PE/DVT) 4.95 H* Sodium Potassium Chloride Carbon Dioxide Anion Gap BUN Creatinine Estim Creat Clear Calc Est GFR (MDRD) Af Amer Est GFR (MDRD) Non-Af BUN/Creatinine Ratio Glucose Lactic Acid Calcium Phosphorus Magnesium Total Bilirubin AST ALT Alkaline Phosphatase Lactate Dehydrogenase Troponin I C-React Prot Ext Range Total Protein Albumin Globulin Albumin/Globulin Ratio Procalcitonin Urine Color Yellow Urine Clarity Clear Urine pH 6.5 Ur Specific [place] 1.005 Urine Protein 30 H Urine Glucose (UA) Normal Urine Ketones Negative Urine Occult Blood Negative Urine Nitrite Negative Urine Bilirubin Negative Urine Urobilinogen Normal Ur Leukocyte Esterase 25 H Urine RBC 0 SEEN Urine WBC 0-5 SEEN Ur Squamous Epith Cells 0 SEEN Urine Bacteria 0 SEEN Urine Mucus 0 SEEN COVID-19 (SOULEYMANE) Negative 05/09/20 05/09/20 05/09/20 19:45 19:45 19:45 WBC RBC Hgb Hct MCV MCH MCHC RDW Std Deviation RDW Coeff of Chio Plt Count MPV Immature Gran % (Auto) Neut % (Auto) Lymph % (Auto) [place] % (Auto) Eos % (Auto) Baso % (Auto) Absolute Neuts (auto) Absolute Lymphs (auto) Nucleated RBC % Differential Comment Hypochromasia Microcytosis PT INR APTT Fibrinogen D-Dimer Quant (PE/DVT) Sodium Potassium Chloride Carbon Dioxide Anion Gap BUN Creatinine Estim Creat Clear Calc Est GFR (MDRD) Af Amer Est GFR (MDRD) Non-Af BUN/Creatinine Ratio Glucose Lactic Acid 0.8 Calcium Phosphorus Magnesium Total Bilirubin AST ALT Alkaline Phosphatase Lactate Dehydrogenase 576 H Troponin I < 0.015 C-React Prot Ext Range 157.00 H Total Protein Albumin Globulin Albumin/Globulin Ratio Procalcitonin 0.16 H Urine Color Urine Clarity Urine pH Ur Specific [place] Urine Protein Urine Glucose (UA) Urine Ketones Urine Occult Blood Urine Nitrite Urine Bilirubin Urine Urobilinogen Ur Leukocyte Esterase Urine RBC Urine WBC Ur Squamous Epith Cells Urine Bacteria Urine Mucus COVID-19 (SOULEYMANE) 05/10/20 05/10/20 05:35 05:35 WBC 10.4 RBC 3.19 L Hgb 9.9 L Hct 32.1 L MCV 100.6 H MCH 31.0 MCHC 30.8 L RDW Std Deviation 68.0 H RDW Coeff of Chio 18.6 H Plt Count 315 MPV 9.9 Immature Gran % (Auto) 2.000 H Neut % (Auto) 76.9 H Lymph % (Auto) 13.5 L [place] % (Auto) 6.8 Eos % (Auto) 0.5 Baso % (Auto) 0.3 Absolute Neuts (auto) 8.0 H Absolute Lymphs (auto) 1.41 Nucleated RBC % 0 Differential Comment SCANNED Hypochromasia RARE Microcytosis RARE PT INR APTT Fibrinogen D-Dimer Quant (PE/DVT) Sodium 137 Potassium 4.3 Chloride 100 Carbon Dioxide 28.0 Anion Gap 9 BUN 14 Creatinine 0.83 Estim Creat Clear Calc 59.91 Est GFR (MDRD) Af Amer 90 Est GFR (MDRD) Non-Af 74 BUN/Creatinine Ratio 16.9 Glucose 86 Lactic Acid Calcium 8.6 Phosphorus Magnesium Total Bilirubin AST ALT Alkaline Phosphatase Lactate Dehydrogenase Troponin I C-React Prot Ext Range Total Protein Albumin Globulin Albumin/Globulin Ratio Procalcitonin Urine Color Urine Clarity Urine pH Ur Specific [place] Urine Protein Urine Glucose (UA) Urine Ketones Urine Occult Blood Urine Nitrite Urine Bilirubin Urine Urobilinogen Ur Leukocyte Esterase Urine RBC Urine WBC Ur Squamous Epith Cells Urine Bacteria Urine Mucus COVID-19 (SOULEYMANE) - Other Studies Radiology: [] reviewed Other Studies: [] Route of nutrition/ use of supplements: [] Nutritional Intake: [] IV Site: [] Magallanes Catheter: [] - Physical Exam General: Alert, Oriented x3, Cooperative, No apparent distress HEENT: Atraumatic, PERRLA, EOMI Neck: Supple, No Nodes Lungs: Clear to auscultation, Normal air movement Cardiovascular: Regular rate, Regular Rhythm, No murmurs Abdomen: Soft, Non Tender, Non-Distended Extremities: No edema Skin: No rashes IV Site: Central Line, without redness Musculoskeletal: No Tenderness to Palpation of Joints or Extremities Neurological: Cranial nerves II-XII grossly intact - Assessment/Plan Antibiotics: [] Assessment/Plan: [] Active and Suspected Problems (Last Reviewed 05/09/20 @ 18:[address] Kaushik Rhodes, DO) Pneumonia (Acute) Fever with recent chemo via port for ovarian cancer - covid neg, does not have typical covid symptoms, but would keep in isolation while in the hospital. D-dimer was high. Bcx pending. Ucx with small growth of strep, but no urinary symptoms and normal UA. CT chest showed no PE and no focal pneumonia. Will stop azithro. Cont ceftriaxone for now. She is on dexamethasone and lovenox bid. LDH and CRP high. No lymphopenia. Clinically feeling fine. If cxs neg, ok for d/c home for 2 weeks total quarantine starting from onset of symptoms on 05/08. Could repeat covid pcr in one week or check serology at that time. Will follow, thank you, d/w nursing.
[2020-05-10 16:24] VITALS: BP 108/64; PULSE 77; RESP 16; TEMP 36.5; O2SAT 89
[2020-05-10 21:16] LABS: Bedside Glucose 104 mg/dL (70-110)
[2020-05-10 22:44] VITALS: BP 140/81; PULSE 77; RESP 16; TEMP 36.6; O2SAT 96
[2020-05-10] MEDS: Verapamil SR 240 MG Tablet PO (23:00)
[2020-05-10] MEDS: OLANZapine 10 MG Tablet PO (23:00)
[2020-05-10] MEDS: MELATONIN 10 MG TABLET PO (23:00)
[2020-05-10] MEDS: Gabapentin 300 MG Capsule 900 MG PO (23:00)
[2020-05-10] MEDS: 0.9% Saline Lock 10 ML Syringe IV ×2 (23:01→23:51)
[2020-05-10 23:26] LABS: Bedside Glucose 96 mg/dL (70-110)
[2020-05-11 04:36] VITALS: BP 125/61; PULSE 88; RESP 17; TEMP 36.6; O2SAT 99
[2020-05-11 05:03] LABS: Anion Gap 8 (5-15); BUN 17 mg/dL (7-18); BUN/Creat Ratio 18.5 RATIO (10-20); Calcium,Total 9.1 mg/dL (8.5-10.1); Chloride 98 mmol/L (98-107); Creatinine, Serum 0.92 mg/dL (0.55-1.02); EST Glomerular Filtration Rate 66 mL/min (>60); Est Glom Filt Rate - Afr Amer 79 mL/min (>60); Estimated Creatinine Clearance 54.05 ml/min; Glucose 90 mg/dL (74-106); Potassium 4.1 mmol/L (3.5-5.1); Sodium Level 135 mmol/L (136-145)
[2020-05-11] MEDS: amLODIPine 5 MG Tablet PO (07:43)
[2020-05-11] MEDS: Enoxaparin 30 MG/0.3 ML Syringe SC (07:43)
[2020-05-11] MEDS: Folic Acid 1 MG Tablet PO (07:43)
[2020-05-11] MEDS: Magnesium Oxide 400 MG Tablet PO (07:43)
[2020-05-11 07:45] VITALS: BP 111/54; PULSE 98; RESP 16; TEMP 36.6; O2SAT 94
[2020-05-11] MEDS: 0.9% Saline Lock 10 ML Syringe IV (07:50)
[2020-05-11 07:55] LABS: Bedside Glucose 87 mg/dL (70-110)
[2020-05-11 07:57] LABS: Absolute Neutrophil Count 6.3 X10^3/uL (2.0-7.7); Basophil# 0.04 X10^3/uL; Basophil% 0.4 % (0-1); Eosinophil# 0.11 X10^3/uL; Eosinophils% 1.2 % (0-5); Hematocrit 31.5 % (37-47); Hemoglobin 9.8 g/dL (12.0-15.0); Lymphocyte % 16.8 % (19-41); Mean Corp Hgb Conc 31.1 g/dL (32-36); Mean Corpuscular Hgb 30.5 pg (27.0-32.0); Mean Corpuscular Volume 98.1 fL (81-99); Mean Platelet Vol. 9.9 fl (6.2-12.0); Monocyte% 7.8 % (0-10); NRBC Flagged by Analyzer 0 % (0-5); Neutrophil # 6.34 X10^3/uL (2.7-7.7); Neutrophil % 71.2 % (47-70); POSITIVE MORPHOLOGY YES; Platelet Count 317 K/mm3 (150-450); RBC Distribution Width CV 18.5 % (11.6-14.6); Red Blood Count 3.21 M/mm3 (4.2-5.4); White Blood Count 8.9 K/mm3 (4.4-11.0)
[2020-05-11 07:58] LABS: Differential Indicated SCAN CRITERIA MET
[2020-05-11 08:29] LABS: Anisocytosis 1+; Hypochromasia 1+; Platelet Estimate ADEQUATE (ADEQ); Polychromasia 1+
--- NOTE | 2020-05-11 08:48 | DCINST_ITS ---
- Discharge Diagnoses Current Active Problems: Current Active and Chronic Problems (Last Reviewed 05/09/20 @ 18:[address] Kaushik Rhodes, DO) Pneumonia (Acute) You will use the following diet at home:: Cardiac Call your doctor if you observe: Fever of 101 or Higher, Change in Color, Inability to urinate, Shortness of breath, Dizziness, Fainting spells, Swelling in the ankles, Chest pain, Prolonged hiccoughing, Increased palpitations (irregular heartbeat), Calf discomfort, Uncontrolled pain Additional Instructions: Self quarantine for 2 weeks, starting from 05/09/2020. Advised repeat COVID-19 PCR and serology test after 1 week from 05/10/2020. Patient is ambulatory in home and in the community and requires home oxygen with portability. Allergies/Adverse Reactions: Allergies acetaminophen [From Percocet] Adverse Reaction (Verified 05/09/20 14:28) Itching codeine Adverse Reaction (Verified 05/09/20 14:28) Itching hydrocodone bitartrate [From Vicodin] Adverse Reaction (Verified 05/09/20 14:28) Itching oxycodone [From Percocet] Adverse Reaction (Verified 05/09/20 14:28) Itching tramadol HCl [From Ultram] Adverse Reaction (Verified 05/09/20 14:28) Itching Medications to take at Discharge Ambien 5 mg PO PRN PRN 03/26/14 Gabapentin [Neurontin] 900 mg PO QHS 03/26/14 Omeprazole [Prilosec] 20 mg PO PRN PRN 03/26/14 Magnesium Oxide [Mag-Ox 400] 400 mg PO BID 07/06/17 Olanzapine [Zyprexa] 10 mg PO QHS 11/15/17 Melatonin 10 mg PO QHS 12/24/17 Verapamil HCl [Verapamil ER] 240 mg PO QHS 05/21/18 Amlodipine [Norvasc] 5 mg PO DAILY 11/22/18 Dexamethasone 1 mg PO DAILY 05/09/20 Dexamethasone [Decadron] 8 mg PO PRN PRN 05/09/20 Folic Acid 1 mg PO DAILY 05/09/20 Cefdinir 300 mg PO BID #10 cap 05/11/20 The following prescriptions were given: Cefdinir 300 mg PO BID #10 cap Transmission Status: Received by [facility] Primary Care Physician: Calixto Deras MD [STAFF PHYSICIAN] - Please follow up with your Primary Care Physician in: IN 2 WEEKS Test Results: Test results from this visit will be discussed in further detail at your follow- up appointment, if applicable. Please Follow Up With: Omar Gross DO When: in 4 weeks Please Follow Up With: Homero Leblanc MD When: as needed for fever, COVID symtoms.
[2020-05-11 09:00] VITALS: O2SAT 94
[2020-05-11 10:07] VITALS: O2SAT 87; O2SAT 93; O2SAT 97
--- NOTE | 2020-05-11 10:30 | CASEMGMT ---
RN CM updated that patient will qualify for home oxygen. [facility] is preferred provider. RN JOEL received script for oxygen and referral made to [facility]. TOMÁS MALDONADO arranged for portable oxygen to be delivered to patient's room prior to discharge.
[2020-05-11 10:33] LABS: Magnesium 1.7 mg/dL (1.6-2.6)
--- NOTE | 2020-05-11 10:39 | PCM.PN.ID ---
Patient Problems: Active and Suspected Problems (Last Reviewed 05/09/20 @ 18:[address] Kaushik Rhodes, DO) Pneumonia (Acute) Subjective: Feeling better, no fever, still some hypoxia - Physical Exam Vitals/I&O's: Vital Signs Temp Pulse Resp BP Pulse Ox 97.9 F 98 16 111/54 L 97 05/11/20 07:45 05/11/20 07:45 05/11/20 07:45 05/11/20 07:45 05/11/20 10:07 Oxygen Flow Rate (L/min) [ 1 AMBULATION with Oxygen] Oxygen Flow Rate (L/min) 1 Oxygen Delivery Method Nasal Cannula Weight: 76.714 kg Body Mass Index (BMI) 28.5 Intake and Output for Last 24 Hours 05/09/20 05/10/20 05/11/20 23:59 23:59 23:59 Intake Total 1170 / 1470 1137.25 / 1137.25 250 / 250 Balance 1170 / 1470 1137.25 / 1137.25 250 / 250 General: Alert, Cooperative, No apparent distress Lungs: Diminished, Rales - overall improved Cardiovascular: Regular rate, Regular Rhythm Abdomen: Soft, Non Tender, Non-Distended Skin: No rashes Microbiology Past 72 Hours 05/09/20 15:15 Urine, Clean Catch Urine Culture - Preliminary Streptococcus group B 05/09/20 15:15 Urine, Clean Catch Streptococcus pneumoniae Antigen (M - Final 05/09/20 15:15 Urine, Clean Catch Legionella Antigen - Final Laboratory Results 05/10/20 16:20: POC Glucose 104 05/10/20 23:00: POC Glucose 96 05/11/20 04:35: Sodium 135 L, Potassium 4.1, Chloride 98, Carbon Dioxide 29.0, Anion Gap 8, BUN 17, Creatinine 0.92, Estim Creat Clear Calc 54.05, Est GFR (MDRD) Af Amer 79, Est GFR (MDRD) Non-Af 66, BUN/Creatinine Ratio 18.5, Glucose 90, Calcium 9.1 05/11/20 04:35: Magnesium 1.7 05/11/20 07:36: POC Glucose 87 05/11/20 07:50: WBC 8.9, RBC 3.21 L, Hgb 9.8 L, Hct 31.5 L, MCV 98.1, MCH 30.5, MCHC 31.1 L, RDW Std Deviation 67.0 H, RDW Coeff of Chio 18.5 H, Plt Count 317, MPV 9.9, Immature Gran % (Auto) 2.600 H, Neut % (Auto) 71.2 H, Lymph % (Auto) 16.8 L, [place] % (Auto) 7.8, Eos % (Auto) 1.2, Baso % (Auto) 0.4, Absolute Neuts (auto) 6.3, Absolute Lymphs (auto) 1.50, Nucleated RBC % 0, Platelet Estimate ADEQUATE, Polychromasia 1+, Hypochromasia 1+, Anisocytosis 1+ Current Medications Acetaminophen (Tylenol) 650 mg PO Q6H PRN PRN PRN Reason: Pain Score 1-10/Temp > 100.7 F Albuterol Sulfate (Ventolin Hfa (Sp)) 1 puff INHALATION Q2H PRN PRN PRN Reason: Shortness of Breath/Wheezing Amlodipine Besylate (Norvasc) 5 mg PO DAILY [facility] Last Admin: 05/11/20 07:43 Dose: 5 mg Documented by: Dexamethasone (Decadron) 8 mg PO UD PRN PRN Reason: DAYS PRE & POST CHEMO [facility] Last Admin: 05/11/20 07:43 Dose: 1 mg Documented by: Dextrose (D50w Syringe) 0 gm IV X1 PRN; Protocol PRN Reason: Hypoglycemia Enoxaparin Sodium (Lovenox) 30 mg SC BID [facility] Last Admin: 05/11/20 07:43 Dose: 30 mg Documented by: Folic Acid (Folic Acid) [facility] Last Admin: 05/11/20 07:43 Dose: 1 mg Documented by: Gabapentin (Neurontin) 900 mg PO QHS [facility] Last Admin: 05/10/20 23:00 Dose: 900 mg Documented by: Glucagon () 1 mg IM .X1 PRN PRN Reason: Hypoglycemia Ceftriaxone Sodium 2 gm/ (Sodium Chloride) 50 mls @ 100 mls/hr IV Q24@2200 [facility] Last Infusion: 05/10/20 23:30 Dose: Infused Documented by: Sodium Chloride () 250 mls @ 15 mls/hr IV .[id number] PRN PRN Reason: Saline Flush Last Infusion: 05/10/20 00:20 Dose: 0 mls/hr Documented by: Sodium Chloride () 250 mls @ 15 mls/hr IV .[id number] PRN PRN Reason: Additional IVPB Infusion Ibuprofen (Motrin) 400 mg PO Q4H PRN PRN PRN Reason: Pain Score 1-10/Temp > 100.7 F Insulin Human Lispro (Humalog Kwikpen (Bkc)) 0 unit SC TIDCM [facility]; Protocol Last Admin: 05/11/20 07:43 Dose: Not Given Documented by: Magnesium Oxide (Mag-Ox 400) 400 mg PO BIDCM [facility] Last Admin: 05/11/20 07:43 Dose: 400 mg Documented by: Melatonin (Melatonin) 10 mg PO QHS [facility] Last Admin: 05/10/20 23:00 Dose: 10 mg Documented by: Olanzapine (Zyprexa) 10 mg PO QHS [facility] Last Admin: 05/10/20 23:00 Dose: 10 mg Documented by: Ondansetron HCl (Zofran) 4 mg IV Q8H PRN PRN PRN Reason: NAUSEA/VOMITING Pantoprazole Sodium (Protonix) 20 mg PO DAILY PRN PRN PRN Reason: HEARTBURN Sodium Chloride () 10 - 40 ml IV UD PRN PRN Reason: SALINE FLUSH Last Admin: 05/11/20 07:50 Dose: 10 ml Documented by: Verapamil HCl (Calan Sr) 240 mg PO QHS [facility] Last Admin: 05/10/20 23:00 Dose: 240 mg Documented by: Zolpidem Tartrate (Ambien (Generic)) 5 mg PO QHS PRN PRN PRN Reason: SLEEP Medical Necessity - Tobacco Use Smoking Status: Never smoker Tobacco Use: Non-smoker Route of nutrition/ use of supplements: [] Nutritional Intake: [] IV Site: [] Magallanes Catheter: [] - Assessment/Plan Antibiotics: [] Assessment/Plan: [] Active and Suspected Problems (Last Reviewed 05/09/20 @ 18:[address] Kaushik Rhodes, DO) Pneumonia (Acute) Fever with recent chemo via port for ovarian cancer - covid neg, does not have typical covid symptoms, but would keep in isolation while in the hospital. D-dimer was high. Bcx neg so far. Ucx with small growth of strep, but no urinary symptoms and normal UA. CT chest showed no PE and no focal pneumonia. She is on dexamethasone and lovenox bid. LDH and CRP high. No lymphopenia. Clinically feeling fine. Ok for d/c home for 2 weeks total quarantine starting from onset of symptoms on 05/08. Will order covid serology for next week. Ok with short course of po abx. Will follow, d/w Dr. Araujo
[2020-05-11 11:06] VITALS: BP 120/65; PULSE 115; RESP 16; TEMP 36.3; O2SAT 94
[2020-05-11 11:31] LABS: Bedside Glucose 170 mg/dL (70-110)
--- NOTE | 2020-05-11 13:37 | PCM.DC.SUM ---
Discharge Date and Diagnosis Date of Admission: 05/09/20 Date of Discharge: 05/11/20 - Primary Discharge Diagnosis Acute Problems: Active Problems (Last Reviewed 05/09/20 @ 18:[address] Kaushik Rhodes DO) Pneumonia (Acute) Hospital Course and Treatment Summary of Care Provided: 65-year-old female with history of ovarian cancer on chemotherapy, dexamethasone came to ER with fever along with leukocytosis chest x-ray and CT angiogram suggestive of infiltrate. 1. Viral pneumonia clinically suggestive COVID-19: Patient is being admitted on [facility] floor. Rocephin and Zithromax after meropenem given in the ED. ID consult. Initial COVID-19 PCR negative probably low viral load in early phase/mistiming of the PCR test. The patient has high d-dimer, LDH and CRP. Chest x-ray and chest CT reviewed. Chest CT shows peribronchial thickening with groundglass opacity suggestive of bronchopneumonia/interstitial viral pneumonia. Discussed with ID. Patient will need repeat COVID-19 PCR and serology test by PCP about 1 week, next Sunday on 05/17/2020. Patient is discharged on 5 more days of cefdinir for bronchopneumonia. Respiratory panel negative. Mild hypomagnesemia, 1.5 corrected. Magnesium level repeat 1.7. 2. Asymptomatic Streptococcus group B bacteriuria: Urine culture shows 11,000-25,000 colonies of Streptococcus group B. Does not have loaded tract symptoms including dysuria. 3. Ovarian cancer: Patient has been having palliative chemotherapy over the past 4 years and recently increased in Ca125. Patient follows with Dr. Gross and continue to follow-up with him. Continue with her Decadron. 4. Hyperglycemia from steroid use: Likely exacerbated due to the underlying illness but also her chronic steroid use. Rate is controlled. 5. VTE prophylaxis: Given concern for COVID-19, enoxaparin 30 mg twice daily. Advanced care planning: Patient wished to be full CODE STATUS. Discharge medication reconciliation done. Discharge follow-up instructions completed. Discharge process discussed with the patient and all questions were answered to patient's satisfaction. Prescription sent to the patient's pharmacy. Total time spent, exact 35 minutes on discharge meds reconciliation, examination, coordination of care with nurses and ancillary staff, review of imaging and blood test and discussion with the patient on follow-up instructions Clinical Impression(s) from Imaging Studies Chest X-Ray 05/09/20 15:45 IMPRESSION: 1. Bibasilar peribronchial infiltrates suggesting bronchopneumonia. Follow-up x-ray recommended to ensure clearing. Chest CTA 05/09/20 16:18 IMPRESSION: 1. No central or segmental pulmonary embolism. 2. Peribronchial thickening with mosaic attenuation/groundglass opacities that can be associated with infectious pneumonitis, edema as well as interstitial lung disease. Bronchiectasis. No cavitating process or organizing pneumonia seen. New since 2018. 3. Nodular soft tissue densities of the upper abdomen correlating to ovarian cancer/peritoneal implants (described on prior abdomen/pelvis CT of 11/16/2017. [] Objective: Seen and examined. Patient has a mild hypoxia, 87% on ambulation on room air, 93% on 1 L of oxygen. No tachypnea. No fever during hospital course. No loss of taste or smell. General: Alert, Oriented x3, Cooperative HEENT: Atraumatic, PERRLA, EOMI, Normocephalic Oral: No Gingival or Mucosal Lesions/ Ulcerations Neck: Supple, No JVD, Negative Carotid Bruits Lungs: Air entry diminished in bilateral lung bases. No crepitation/rhonchi, mild hypoxia on exertion/ambulation Cardiovascular: Regular rate, Regular Rhythm, Normal S1, Normal S2, No murmurs Abdomen: Bowel Sounds Present, Soft, Non Tender, Non-Distended. No palpable mass. : No renal angle tenderness. No suprapubic tenderness. Extremities: No edema, Capillary Refill Less than 3 Seconds Skin: No rashes, No breakdown Musculoskeletal: No Tenderness to Palpation of Joints or Extremities Neurological: Cranial nerves II-XII grossly intact, Deep Tendon Reflexes 2+/4 and Symmetrical, Neuro grossly intact Psych/Mental Status: Normal Affect, Appropriate - Physical Exam Vitals/I&O's: Vital Signs Temp Pulse Resp BP Pulse Ox 97.9 F 98 16 111/54 L 94 05/11/20 07:45 05/11/20 07:45 05/11/20 07:45 05/11/20 07:45 05/11/20 07:45 Oxygen Flow Rate (L/min) 1 Oxygen Delivery Method Nasal Cannula Weight: 169 lb 2 oz Body Mass Index (BMI) 28.5 Intake and Output for Last 24 Hours 05/09/20 05/10/20 05/11/20 23:59 23:59 23:59 Intake Total 1170 / 1470 1137.25 / 1137.25 250 / 250 Balance 1170 / 1470 1137.25 / 1137.25 250 / 250 Microbiology Past 72 Hours 05/09/20 15:15 Urine, Clean Catch Urine Culture - Preliminary Streptococcus group B 05/09/20 15:15 Urine, Clean Catch Streptococcus pneumoniae Antigen (M - Final 05/09/20 15:15 Urine, Clean Catch Legionella Antigen - Final Laboratory Results 05/10/20 16:20: POC Glucose 104 05/10/20 23:00: POC Glucose 96 05/11/20 04:35: Sodium 135 L, Potassium 4.1, Chloride 98, Carbon Dioxide 29.0, Anion Gap 8, BUN 17, Creatinine 0.92, Estim Creat Clear Calc 54.05, Est GFR (MDRD) Af Amer 79, Est GFR (MDRD) Non-Af 66, BUN/Creatinine Ratio 18.5, Glucose 90, Calcium 9.1 05/11/20 07:36: POC Glucose 87 05/11/20 07:50: WBC 8.9, RBC 3.21 L, Hgb 9.8 L, Hct 31.5 L, MCV 98.1, MCH 30.5, MCHC 31.1 L, RDW Std Deviation 67.0 H, RDW Coeff of Chio 18.5 H, Plt Count 317, MPV 9.9, Immature Gran % (Auto) 2.600 H, Neut % (Auto) 71.2 H, Lymph % (Auto) 16.8 L, [place] % (Auto) 7.8, Eos % (Auto) 1.2, Baso % (Auto) 0.4, Absolute Neuts (auto) 6.3, Absolute Lymphs (auto) 1.50, Nucleated RBC % 0, Platelet Estimate ADEQUATE, Polychromasia 1+, Hypochromasia 1+, Anisocytosis 1+ Current Medications Acetaminophen (Tylenol) 650 mg PO Q6H PRN PRN PRN Reason: Pain Score 1-10/Temp > 100.7 F Albuterol Sulfate (Ventolin Hfa (Sp)) 1 puff INHALATION Q2H PRN PRN PRN Reason: Shortness of Breath/Wheezing Amlodipine Besylate (Norvasc) 5 mg PO DAILY [facility] Last Admin: 05/11/20 07:43 Dose: 5 mg Documented by: Dexamethasone (Decadron) 8 mg PO UD PRN PRN Reason: DAYS PRE & POST CHEMO [facility] Last Admin: 05/11/20 07:43 Dose: 1 mg Documented by: Dextrose (D50w Syringe) 0 gm IV X1 PRN; Protocol PRN Reason: Hypoglycemia Enoxaparin Sodium (Lovenox) 30 mg SC BID [facility] Last Admin: 05/11/20 07:43 Dose: 30 mg Documented by: Folic [facility] ([facility]) [facility] Last Admin: 05/11/20 07:43 Dose: 1 mg Documented by: Gabapentin (Neurontin) 900 mg PO QHS [facility] Last Admin: 05/10/20 23:00 Dose: 900 mg Documented by: Glucagon () 1 mg IM .X1 PRN PRN Reason: Hypoglycemia Ceftriaxone Sodium 2 gm/ (Sodium Chloride) 50 mls @ 100 mls/hr IV Q24@2200 [facility] Last Infusion: 05/10/20 23:30 Dose: Infused Documented by: Sodium Chloride () 250 mls @ 15 mls/hr IV .[id number] PRN PRN Reason: Saline Flush Last Infusion: 05/10/20 00:20 Dose: 0 mls/hr Documented by: Sodium Chloride () 250 mls @ 15 mls/hr IV .[id number] PRN PRN Reason: Additional IVPB Infusion Ibuprofen (Motrin) 400 mg PO Q4H PRN PRN PRN Reason: Pain Score 1-10/Temp > 100.7 F Insulin Human Lispro (Humalog Kwikpen (Bkc)) 0 unit SC TIDCM [facility]; Protocol Last Admin: 05/11/20 07:43 Dose: Not Given Documented by: Magnesium Oxide (Mag-Ox 400) [facility] Last Admin: 05/11/20 07:43 Dose: 400 mg Documented by: Melatonin (Melatonin) 10 mg PO QHS [facility] Last Admin: 05/10/20 23:00 Dose: 10 mg Documented by: Olanzapine (Zyprexa) 10 mg PO QHS [facility] Last Admin: 05/10/20 23:00 Dose: 10 mg Documented by: Ondansetron HCl (Zofran) 4 mg IV Q8H PRN PRN PRN Reason: NAUSEA/VOMITING Pantoprazole Sodium (Protonix) 20 mg PO DAILY PRN PRN PRN Reason: HEARTBURN Sodium Chloride () 10 - 40 ml IV UD PRN PRN Reason: SALINE FLUSH Last Admin: 05/11/20 07:50 Dose: 10 ml Documented by: Verapamil HCl (Calan Sr) 240 mg PO QHS [facility] Last Admin: 05/10/20 23:00 Dose: 240 mg Documented by: Zolpidem Tartrate (Ambien (Generic)) 5 mg PO QHS PRN PRN PRN Reason: SLEEP Call your doctor if you observe: Fever of 101 or Higher, Change in Color, Inability to urinate, Shortness of breath, Dizziness, Fainting spells, Swelling in the ankles, Chest pain, Prolonged hiccoughing, Increased palpitations (irregular heartbeat), Calf discomfort, Uncontrolled pain Home Medications: Medications to take at Discharge Ambien 5 mg PO PRN PRN 03/26/14 Gabapentin [Neurontin] 900 mg PO QHS 03/26/14 Omeprazole [Prilosec] 20 mg PO PRN PRN 03/26/14 Magnesium Oxide [Mag-Ox 400] 400 mg PO BID 07/06/17 Olanzapine [Zyprexa] 10 mg PO QHS 11/15/17 Melatonin 10 mg PO QHS 12/24/17 Verapamil HCl [Verapamil ER] 240 mg PO QHS 05/21/18 Amlodipine [Norvasc] 5 mg PO DAILY 11/22/18 Dexamethasone 1 mg PO DAILY 05/09/20 Dexamethasone [Decadron] 8 mg PO PRN PRN 05/09/20 Folic Acid 1 mg PO DAILY 05/09/20 Cefdinir 300 mg PO BID #10 cap 05/11/20 Following Prescrptions Were Given to Patient: Cefdinir 300 mg PO BID #10 cap Transmission Status: Received by [facility] Primary Care Physician: Calixto Dreas MD [STAFF PHYSICIAN] - Please follow up with your Primary Care Physician in: IN 2 WEEKS Please Follow Up With: Omar Gross DO When: in 4 weeks Please Follow Up With: Homero Leblanc MD When: as needed for fever, COVID symtoms. Medical Necessity - Tobacco Use Smoking Status: Never smoker Tobacco Use: Non-smoker Meaningful Use Info Meaningful Use Diagnoses (Choose all that apply): None applicable Inpatient E&M: 41116 Disch Hosp
== END 2020-05-11 14:27 | disposition home or self-care (01) | DRG 194 ==
LOC: ED 15:57 → ICU 18:31
PROVIDERS: Emergency Provider Emergency Medicine; PCP Internal Medicine Hematology & Oncology; Visit Provider Internal Medicine
DX: J12.9 Viral pneumonia, unspecified (principal); C56.9 Malignant neoplasm of unspecified ovary; E83.42 Hypomagnesemia; B95.1 Streptococcus, group B, as the cause of diseases classified elsewhere; R73.9 Hyperglycemia, unspecified; T38.0X5A Adverse effect of glucocorticoids and synthetic analogues, initial encounter; R09.02 Hypoxemia; I10 Essential (primary) hypertension; Z79.52 Long term (current) use of systemic steroids; Z79.899 Other long term (current) drug therapy
CPT/HCPCS: 71046; 71275; 80048; 80053; 81001; 82962; 83605; 83615; 83735; 84100; 84145; 84484; 85025; 85379; 85384; 85610; 85730; 86140; 87040; 87077; 87086; 87088; 87186; 87449; 87633; 87635; 99285; G2023; J2185; J7030; J7050; Q9967; A4216; J0696; U0003

== ENCOUNTER → 2020-05-14 11:20 | Outpatient (CLI) | payer OTHER, SELFPAY ==
[2020-05-09 19:14] VITALS: BMI 28.5
== END ==
PROVIDERS: PCP Internal Medicine Hematology & Oncology; Visit Provider Internal Medicine Hematology & Oncology
DX: C56.9 Malignant neoplasm of unspecified ovary (principal)
CPT/HCPCS: 87635; G2023; U0003

== ENCOUNTER → 2020-05-28 16:59 | Outpatient (CLI) | payer OTHER, SELFPAY ==
[2020-05-09 19:14] VITALS: BMI 28.5
--- NOTE | 2020-05-28 17:01 | CT_ITS ---
STUDY: CT ABDOMEN AND PELVIS WITH CONTRAST REASON FOR EXAM: Female, 65 years old. PT STATED PELVIC PAIN AND BLOATING, HX OVARIAN CA W LIVER METS, KOFFI, APPY, HYSTERECTOMY RADIATION DOSAGE (If Supplied By Facility): CTDIvol = ( 13.74 ) mGy, DLP = ( 966.71 ) mGycm TECHNIQUE: Transaxial images were obtained from the dome of the diaphragm to the symphysis pubis without oral contrast. IV 100mL Isovue-300 AND ORAL was administered. Sagittal and coronal images were reconstructed. Individualized dose optimization techniques were used for this CT. COMPARISON: 11/06/2017 and CTA of the chest dated 05/09/2020 FINDINGS: There is near complete resolution of the groundglass opacities noted at the lung bases. The visualized portions of the heart are within normal limits. There is new minimal ascites. There are hypointense rounded foci along the liver surface. The patient status post cholecystectomy. Normal spleen. Normal pancreas. There is an interval increase in size and number of soft tissue nodules within the left upper quadrant, throughout the omentum and to less extent within the mesentery. Normal bilateral adrenal glands. Normal right kidney. Normal left kidney. Normal visualized stomach. Normal small intestine. There are scattered diverticula throughout the colon. There is non-visualization of the appendix. There are peripheral calcifications of the abdominal aorta consistent with atherosclerosis. Normal inferior vena cava. There are prominent and pathologically enlarged retroperitoneal lymph nodes. Normal urinary bladder. Normal abdominal wall. There are diffuse degenerative changes of the visualized lumbar spine. There is a stable grade 1 anterior spondylolisthesis of L4 on L5. CT/Abdomen/Pelvis WITH Contrast IMPRESSION: Interval increase in size and number of soft tissue foci throughout the omentum, mesentery and left upper quadrant associated with new free fluid suggestive of peritoneal carcinomatosis. Hypointense foci along the liver surface, may reflect capsular implants. Atherosclerosis. Colonic diverticulosis. Near complete resolution of groundglass opacities within the visualized lungs since 05/09/2020. Electronically Signed: Maura Ordaz MD at 17:51 EDT Tel , Service support ,
== END ==
PROVIDERS: PCP Internal Medicine Hematology & Oncology; Referring Provider Internal Medicine Hematology & Oncology; Visit Provider Internal Medicine Hematology & Oncology
DX: C56.9 Malignant neoplasm of unspecified ovary (principal); C78.7 Secondary malignant neoplasm of liver and intrahepatic bile duct
CPT/HCPCS: 74177; Q9967

== ENCOUNTER 2020-07-01 18:21 | Inpatient (IN) | payer MEDICARE, SELFPAY ==
[2020-06-26 11:19] VITALS: BMI 28.5
[2020-07-01 18:24] VITALS: BP 133/86; PULSE 105; RESP 16; TEMP 36.7; O2SAT 97; BMI 27.8
--- NOTE | 2020-07-01 18:30 | ED.DCSUM_ITS ---
History of Present Illness Chief Complaint: Abd Pain Informant: Patient Narrative: 64-year-old female presenting for evaluation of abdominal distention. She states he noted this a couple of weeks ago but it is gotten worse over this timeframe. She states he has a history of metastatic ovarian cancer which is stage IV. She is on 2 chemotherapeutic agents. She was diagnosed with shingles last week and is on acyclovir. She states she has been able to eat and drink with mild nausea. Patient also states that she is having bowel movements. She does not have any fever or chills. No urinary complaints. Past Medical History - Allergies and Home Meds Allergies/Adverse Reactions: Allergies acetaminophen [From Percocet] Adverse Reaction (Verified 07/01/20 23:55) Itching codeine Adverse Reaction (Verified 07/01/20 23:55) Itching hydrocodone bitartrate [From Vicodin] Adverse Reaction (Verified 07/01/20 23:55) Itching oxycodone [From Percocet] Adverse Reaction (Verified 07/01/20 23:55) Itching tramadol HCl [From Ultram] Adverse Reaction (Verified 07/01/20 23:55) Itching Smoking Status: Never smoker Review of Systems General: Denies: Chills, Fever, Sweats Eyes: Denies: Visual changes - bilaterally, Diplopia ENT: Denies: Rhinorrhea, Sore throat Cardiovascular: Denies: Chest pain, Palpitations Respiratory: Reports: Dyspnea Gastrointestinal: Reports: Abdominal pain, Nausea Genitourinary: Denies: Dysuria, Hematuria Musculoskeletal: Denies: Myalgias, Arthralgias, Neck pain Skin: Denies: Rash, Abscess Neurological: Denies: Headache, Weakness Physical Exam Vital Signs/Narrative: Vital Signs Temp Pulse Resp BP Pulse Ox 07/01/20 18:24 98.1 F 105 H 16 133/86 H 97 Inital Vital Signs reviewed: Yes General: Well nourished, Well developed, Acute Distress Head: Normocephalic, Atraumatic Eyes: Perrl, EOMI. Negative for: Scleral icterus ENT: Moist mucous membranes, No rhinorrhea Cardiovascular: Regular rate, Regular rhythm Respiratory: No distress, CTA bilaterally Abdomen: - - Distended abdomen diffusely with high-pitched bowel sounds. Diffuse tenderness to palpation. Abdomen is non-peritoneal. Back: Nontender, Normal Inspection Extremities: Nontender, No edema Skin: Normal color, No rash Neurological: Alert, Oriented x3 Psychological: Normal affect Diagnostic/Tx/Re-eval Clinical Impression(s) from Imaging Studies Abdomen/Pelvis CT 07/01/20 20:47 IMPRESSION: Small amount of ascites. Increased size and number of seeding and masses of the upper abdomen in the fatty tissues of the mesentery, omentum recesses around the liver, spleen and stomach. Distended small bowel with thickening and matting of small bowel loops in the pelvis where there is probably a transition zone in the deep pelvis consistent with high-grade small bowel obstruction. The colon is nondistended. Otherwise unremarkable liver, spleen and pancreas. Status post cholecystectomy with moderate compensatory dilatation of the bile ducts not changed from prior exam. Normal size of the kidneys without hydronephrosis. Nondistended urinary bladder. Electronically Signed: Ial Salinas MD at 21:25 EDT , Service support , ADDENDUM: 07/01/20 2219 IMPRESSION: Small amount of ascites. Increased size and number of seeding and masses of the upper abdomen in the fatty tissues of the mesentery, omentum recesses around the liver, spleen and stomach. Distended small bowel with thickening and matting of small bowel loops in the pelvis where there is probably a transition zone in the deep pelvis consistent with high-grade small bowel obstruction. The colon is nondistended. Otherwise unremarkable liver, spleen and pancreas. Status post cholecystectomy with moderate compensatory dilatation of the bile ducts not changed from prior exam. Normal size of the kidneys without hydronephrosis. Nondistended urinary bladder. N.B. : The above information has been verbally conveyed by Ila Salinas MD to Jayjay Wheat DO on 07/01/2020 22:12:03 (ET). Electronically Signed: Ila Salinas MD at 21:25 EDT , Service support , Laboratory Data 07/01/20 07/01/20 19:35 19:35 WBC 4.9 RBC 4.51 Hgb 11.7 L Hct 39.1 MCV 86.7 MCH 25.9 L MCHC 29.9 L RDW Std Deviation 66.4 H RDW Coeff of Chio 21.1 H Plt Count 441 MPV 8.7 Immature Gran % (Auto) 2.200 H Neut % (Auto) 50.6 Lymph % (Auto) 31.7 [place] % (Auto) 14.7 H Eos % (Auto) 0.2 Baso % (Auto) 0.6 Absolute Neuts (auto) 2.5 Absolute Lymphs (auto) 1.55 Nucleated RBC % 0 Differential Comment SCANNED Sodium 136 Potassium 3.7 Chloride 99 Carbon Dioxide 29.0 Anion Gap 8 BUN 17 Creatinine 0.90 Estim Creat Clear Calc 57.57 Est GFR (MDRD) Af Amer 81 Est GFR (MDRD) Non-Af 67 BUN/Creatinine Ratio 18.8 Glucose 104 Calcium 9.0 Total Bilirubin 0.30 AST 45 H ALT 31 Alkaline Phosphatase 143 H Total Protein 7.4 Albumin 3.0 L Globulin 4.4 H Albumin/Globulin Ratio 0.7 L Lipase 30 L - Medical Decision Making 65-year-old female with history of stage IV metastatic ovarian disease presenting with abdominal distention. Patient initially given IV fluids, morphine, Zofran. Her lab work-up was fairly unremarkable however she has a high-grade small bowel obstruction on exam which is likely due to worsening metastatic disease. This was discussed with Dr. Greenfield who felt that she was not a surgical candidate. Patient will be admitted for pain control to the hospitalist. Likely she will get consult from heme-onc. Patient is clinically stable on admission. Impression: 1. Worsening metastatic disease 2. High-grade small bowel obstruction ED Disposition - Plan for ED Patient: Disposition: Acute Care Hospital [facility]
[2020-07-01 19:45] LABS: Absolute Lymphocyte Count 1.55 X10^3/uL (0.83-4.51); Absolute Neutrophil Count 2.5 X10^3/uL (2.0-7.7); Basophil# 0.03 X10^3/uL; Basophil% 0.6 % (0-1); Eosinophil# 0.01 X10^3/uL; Eosinophils% 0.2 % (0-5); Hematocrit 39.1 % (37-47); Hemoglobin 11.7 g/dL (12.0-15.0); Lymphocyte # 1.55 X10^3/ul (4.0); Lymphocyte % 31.7 % (19-41); Mean Corp Hgb Conc 29.9 g/dL (32-36); Mean Corpuscular Hgb 25.9 pg (27.0-32.0); Mean Corpuscular Volume 86.7 fL (81-99); Mean Platelet Vol. 8.7 fl (6.2-12.0); Monocyte# 0.72 X10^3/uL; Monocyte% 14.7 % (0-10); NRBC Flagged by Analyzer 0 % (0-5); Neutrophil # 2.47 X10^3/uL (2.7-7.7); Neutrophil % 50.6 % (47-70); POSITIVE MORPHOLOGY YES; Platelet Count 441 K/mm3 (150-450); RBC Distribution Width CV 21.1 % (11.6-14.6); RBC Distribution Width SD 66.4 fl (35.1-43.9); Red Blood Count 4.51 M/mm3 (4.2-5.4); White Blood Count 4.9 K/mm3 (4.4-11.0)
[2020-07-01 19:53] LABS: Differential Indicated SCAN CRITERIA MET
[2020-07-01 19:58] LABS: ALB/GLOB Ratio 0.7 RATIO (0.9-2.4); AST(SGOT) 45 U/L (15-37); Alanine Aminotransfer ALT/SGPT 31 U/L (13-56); Alkaline Phosphatase 143 U/L (45-117); Anion Gap 8 (5-15); BUN 17 mg/dL (7-18); BUN/Creat Ratio 18.8 RATIO (10-20); Chloride 99 mmol/L (98-107); EST Glomerular Filtration Rate 67 mL/min (>60); Est Glom Filt Rate - Afr Amer 81 mL/min (>60); Estimated Creatinine Clearance 57.57 ml/min; Globulin 4.4 g/dL (2.2-4.2); Glucose 104 mg/dL (74-106); Lipase 30 U/L (73-393); Potassium 3.7 mmol/L (3.5-5.1); Protein, Total 7.4 g/dL (6.4-8.2); Sodium Level 136 mmol/L (136-145)
[2020-07-01] MEDS: Ondansetron 4 MG/2 ML Vial IV (19:58)
[2020-07-01] MEDS: Morphine 4 MG/ML Syringe IV ×2 (19:58→23:23)
[2020-07-01 20:38] LABS: Differential Comment SCANNED
--- NOTE | 2020-07-01 20:47 | CT_ITS ---
We are attempting to reach an attending provider to discuss findings. An addendum with communication details will be sent when the communication is complete. STUDY: CT ABDOMEN AND PELVIS WITH CONTRAST REASON FOR EXAM: Female, 65 years old. ABDOMEN PAIN AND DISTENTION. RE-CURRENT OVARIAN CA. HX OF HTN RADIATION DOSAGE (If Supplied By Facility): CTDIvol = ( 17.08 ) mGy, DLP = ( 1587.53 ) mGycm TECHNIQUE: Transaxial images were obtained from the dome of the diaphragm to the symphysis pubis without oral contrast. Oral and amp; IV Breeza and amp; 100mL Isovue-370 was administered. Sagittal and coronal images were reconstructed. Individualized dose optimization techniques were used for this CT. COMPARISON: Prior abdomen and pelvic CT exam of 05/28/2020 FINDINGS: Stable chronic changes of the left lung base. The visualized portions of the heart are within normal limits. Normal liver. Status post cholecystectomy with moderate compensatory dilatation of the common bile duct. Normal spleen. Normal pancreas. Generalized mild ascites. Extensive peritoneal masses and seeding increased in size from prior exam. Mild ascites. Normal right kidney. Normal left kidney. Nondistended stomach. Dilated proximal and mid small bowel with markedly thickened distal small bowel. Nondistended colon. The appendix is not visualized. Mild calcified plaque of the aorta. Normal inferior vena cava. Normal retroperitoneum. Nondistended urinary bladder. Normal abdominal wall. There are diffuse degenerative changes of the visualized lumbar spine. CT/Abdomen/Pelvis WITH Contrast IMPRESSION: Small amount of ascites. Increased size and number of seeding and masses of the upper abdomen in the fatty tissues of the mesentery, omentum recesses around the liver, spleen and stomach. Distended small bowel with thickening and matting of small bowel loops in the pelvis where there is probably a transition zone in the deep pelvis consistent with high-grade small bowel obstruction. The colon is nondistended. Otherwise unremarkable liver, spleen and pancreas. Status post cholecystectomy with moderate compensatory dilatation of the bile ducts not changed from prior exam. Normal size of the kidneys without hydronephrosis. Nondistended urinary bladder. Electronically Signed: Ila Salinas MD at 21:25 EDT , Service support ,
--- NOTE | 2020-07-01 21:44 | PCM.HP.STD ---
Problem List (1) Partial small bowel obstruction Status: Acute (2) Shingles Status: Acute (3) Left breast mass Status: Chronic Comment: imaging ordered (4) Metastatic cancer Status: Acute History of Present Illness Date of Admission: 07/01/20 Chief Complaint: abdominal pain The patient is a 65 year old F with a significant history of ovarian cancer status post TAHBSO and on chemotherapy who presents to the emergency department with diffuse progressively worsening excruciating nonradiating abdominal pain that started about 3 to 4 weeks ago. Her pain improves with positioning and worsens with positioning. She described the pain as a burning sensation. Also she feels bloated and has abdominal discomfort. Further patient has nausea without vomiting. The last time her bowels moved was a day before presentation. She reported that for the last 3 to 4 days she took milk of magnesia for constipation. She developed diarrhea from the milk of magnesia. Abdominal and pelvis CT showed diffuse metastatic cancer and small bowel obstruction. Patient was seen at emergency department by general surgeon. Past Medical History Past Medical History (Chronic Problems): Chronic Problems (Last Reviewed 07/02/20 @ 00:[address] Gus Banerjee MD) Left breast mass (Chronic) imaging ordered Medical History: Medical History (Last Reviewed 07/02/20 @ 03:[address] 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 Hypertension I10 Allergies acetaminophen [From Percocet] Adverse Reaction (Verified 07/01/20 18:24) Itching codeine Adverse Reaction (Verified 07/01/20 18:24) Itching hydrocodone bitartrate [From Vicodin] Adverse Reaction (Verified 07/01/20 18:24) Itching oxycodone [From Percocet] Adverse Reaction (Verified 07/01/20 18:24) Itching tramadol HCl [From Ultram] Adverse Reaction (Verified 07/01/20 18:24) Itching Home Medications: Ambulatory Orders Medication Instructions Recorded Gabapentin [Neurontin] 300 mg PO QHS 03/26/14 Magnesium Oxide [Mag-Ox 400] 400 mg PO BID 07/06/17 Olanzapine [Zyprexa] 10 mg PO QHS PRN PRN 11/15/17 Verapamil HCl [Verapamil ER] 240 mg PO QHS 05/21/18 Amlodipine [Norvasc] 5 mg PO DAILY 11/22/18 Dexamethasone 1 mg PO DAILY 05/09/20 Dexamethasone [Decadron] 8 mg PO PRN PRN 05/09/20 Folic Acid 1 mg PO DAILY 05/09/20 valacyclovir 1 gram tablet 1,000 mg PO TID #21 tab 06/26/20 Surgical History: Surgical History (Last Reviewed 07/02/20 @ 03:[address] Gus Banerjee MD) H/O: knee surgery Z98.890 History of appendectomy Z90.49 History of foot surgery Z98.890 S/P LORI (total abdominal hysterectomy) Z90.710 Smoking Status: Former smoker - *Family History Maternal Family History: Family History (Last Reviewed 07/02/20 @ 03:[address] Gus Banerjee MD) Mother Breast cancer Review of Systems Constitutional: Denies: Chills, Fever, Weight Change HEENT: Denies: Head Aches, Sinus Congestion, Sinus Drainage Cardiovascular: Denies: Chest Pain, Palpitations Respiratory: Denies: Cough, Shortness of breath at rest, Sputum production Gastrointestinal: Reports: Abdominal Pain, Nausea. Denies: Vomiting Genitourinary: Denies: Dysuria Musculoskeletal: Reports: Back Pain. Denies: Joint Pain, Joint Tenderness Skin: Denies: Rash, Wounds Neurological: Denies: Numbness, Tingling, Focal weakness Psychiatric: Denies: Anxiety, Depression, Homicidal Ideations, Suicidal Ideations Hematologic/ Lymphatic: Denies: Easy Bruising, Easy Bleeding VTE Information - Inpt Only VTE Present on Admission: No VTE Mechan Device Prophylaxis: None VTE Pharm Prophylaxis ordered?: Yes Patient Problems: Active and Suspected Problems (Last Reviewed 07/02/20 @ 00:[address] Gus Banerjee MD) Partial small bowel obstruction (Acute) Metastatic cancer (Acute) - Physical Exam Vitals/I&O's: Vital Signs Temp Pulse Resp BP Pulse Ox 98.1 F 105 H 16 133/86 H 97 07/01/20 18:24 07/01/20 18:24 07/01/20 18:24 07/01/20 18:24 07/01/20 18:24 Oxygen Delivery Method Room Air Weight: 75.75 kg Body Mass Index (BMI) 27.8 General: Alert, Oriented x3, Cooperative HEENT: Atraumatic, PERRLA, EOMI, Normocephalic Neck: Supple, No JVD, Negative Carotid Bruits Lungs: Clear to auscultation, Normal air movement Cardiovascular: Regular rate, Regular Rhythm, Normal S1, Normal S2, No murmurs Abdomen: Bowel Sounds Present, Soft, Non Tender Extremities: No edema, Capillary Refill Less than 3 Seconds Skin: No rashes, No breakdown, - - Erythematous scratch lines Musculoskeletal: No Tenderness to Palpation of Joints or Extremities Neurological: Cranial nerves II-XII grossly intact Psych/Mental Status: Normal Affect, Appropriate Laboratory Results 07/01/20 19:35: WBC 4.9, RBC 4.51, Hgb 11.7 L, Hct 39.1, MCV 86.7, MCH 25.9 L, MCHC 29.9 L, RDW Std Deviation 66.4 H, RDW Coeff of Chio 21.1 H, Plt Count 441, MPV 8.7, Immature Gran % (Auto) 2.200 H, Neut % (Auto) 50.6, Lymph % (Auto) 31.7, [place] % (Auto) 14.7 H, Eos % (Auto) 0.2, Baso % (Auto) 0.6, Absolute Neuts (auto) 2.5, Absolute Lymphs (auto) 1.55, Nucleated RBC % 0, Differential Comment SCANNED 07/01/20 19:35: Sodium 136, Potassium 3.7, Chloride 99, Carbon Dioxide 29.0, Anion Gap 8, BUN 17, Creatinine 0.90, Estim Creat Clear Calc 57.57, Est GFR (MDRD) Af Amer 81, Est GFR (MDRD) Non-Af 67, BUN/Creatinine Ratio 18.8, Glucose 104, Calcium 9.0, Total Bilirubin 0.30, AST 45 H, ALT 31, Alkaline Phosphatase 143 H, Total Protein 7.4, Albumin 3.0 L, Globulin 4.4 H, Albumin/Globulin Ratio 0.7 L, Lipase 30 L Assessment/Plan All Active Problems (Last Reviewed 07/02/20 @ 00:[address] Gus Banerjee MD) Partial small bowel obstruction (Acute) Metastatic cancer (Acute) Shingles (Acute) The patient is a 65 year old F with a significant history of ovarian cancer status post TAHBSO and on chemotherapy who presents emergency department with diffuse progressively worsening excruciating nonradiating abdominal pain and found to have radiographic evidence of small bowel obstruction. Small bowel obstruction We will keep patient n.p.o. Normal saline with 20 mEq of potassium ordered at 100 MS per hour. Zofran IV as needed initially ordered. Patient required more antiemetics so Compazine IV PRN added. Patient received morphine at emergency department. She was itching all over. Also she takes Roxanol at homes and it makes her itch to the point that she has erythematous lines on her arms. Patient is willing to try Dilaudid. Benadryl as needed for itching. Dilaudid IV ordered. Metastatic ovarian cancer Pain control Patient follows up with Dr. Gross. Per general surgery notes the case was discussed with oncology. Shingles Patient was on oral valacyclovir at home. She stopped taking the valcyclovir thinking that it was causing her abdominal pain. Discussed with patient that while n.p.o. we will start her on IV acyclovir. On home Decadron p.o. IV Decadron ordered. Hypertension Blood pressure is now within goal While n.p.o. hold home p.o. blood pressure medication. PRN hydralazine added. Trend blood pressure and adjust blood pressure medications. History of hypomagnesemia On home magnesium supplementation; hold Check magnesium. DVT prophylaxis Patient has been deemed not to be surgical candidate. Subcutaneous Lovenox ordered. [id number]
[2020-07-01 21:52] VITALS: BP 176/96; PULSE 98; RESP 16; TEMP 36.8; O2SAT 94
--- NOTE | 2020-07-01 22:04 | PCM.CONS.GEN ---
Problem List (1) Partial small bowel obstruction Status: Acute Reason for Consult Date of Consultation: 07/01/20 History of Present Illness: 64-year-old female presenting for evaluation of abdominal distention. She states he noted this a couple of weeks ago but it is gotten worse over this timeframe. She states he has a history of metastatic ovarian cancer which is stage IV. She is on 2 chemotherapeutic agents. She was diagnosed with shingles last week and is on acyclovir. She states she has been able to eat and drink with mild nausea. Patient also states that she is having bowel movements. She does not have any fever or chills. No urinary complaints. Past Medical History Medical History: Medical History (Last Reviewed 07/01/20 @ 22:[address] 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 Hypertension I10 Allergies acetaminophen [From Percocet] Adverse Reaction (Verified 07/01/20 18:24) Itching codeine Adverse Reaction (Verified 07/01/20 18:24) Itching hydrocodone bitartrate [From Vicodin] Adverse Reaction (Verified 07/01/20 18:24) Itching oxycodone [From Percocet] Adverse Reaction (Verified 07/01/20 18:24) Itching tramadol HCl [From Ultram] Adverse Reaction (Verified 07/01/20 18:24) Itching Home Medications: Ambulatory Orders Medication Instructions Recorded Gabapentin [Neurontin] 300 mg PO QHS 03/26/14 Magnesium Oxide [Mag-Ox 400] 400 mg PO BID 07/06/17 Olanzapine [Zyprexa] 10 mg PO QHS PRN 11/15/17 Verapamil HCl [Verapamil ER] 240 mg PO QHS 05/21/18 Amlodipine [Norvasc] 5 mg PO DAILY 11/22/18 Dexamethasone 1 mg PO DAILY 05/09/20 Dexamethasone [Decadron] 8 mg PO PRN PRN 05/09/20 Folic Acid 1 mg PO DAILY 05/09/20 valacyclovir 1 gram tablet 1,000 mg PO TID #21 tab 06/26/20 Surgical History: Surgical History (Last Reviewed 07/01/20 @ 22:[address] Sabino Greenfield MD) H/O: knee surgery Z98.890 History of appendectomy Z90.49 History of foot surgery Z98.890 S/P LORI (total abdominal hysterectomy) Z90.710 Smoking Status: Former smoker Review of Systems Constitutional: Reports: Anorexia, Malaise, Weakness. Denies: Fever Cardiovascular: Denies: Chest Pain, Chest Pressure, Chest Tightness, Palpitations Respiratory: Denies: Cough, Hemoptysis, Shortness of breath at rest, Shortness of breath upon exertion, Wheezing Gastrointestinal: Reports: Abdominal Pain Genitourinary: Denies: Dysuria, Frequency, Hematuria, Urgency Patient Problems: Active and Suspected Problems (Last Updated 06/26/20 @ 11:19 by Noemi Gentile) Partial small bowel obstruction (Acute) - Physical Exam Vitals/I&O's: Vital Signs Temp Pulse Resp BP Pulse Ox 98.2 F 98 16 176/96 H 94 07/01/20 21:52 07/01/20 21:52 07/01/20 21:52 07/01/20 21:52 07/01/20 21:52 Oxygen Delivery Method Room Air Weight: 167 lb Body Mass Index (BMI) 27.8 Intake and Output for Last 24 Hours 06/29/20 06/30/20 07/01/20 23:59 23:59 23:59 Intake Total 500 / 500 Balance 500 / 500 General: Alert, Oriented x3 Cardiovascular: Regular rate, Regular Rhythm, No murmurs Abdomen: Tender - Patient has global abdominal distention and discomfort. She is not having any vomiting but she does have some nausea. She has been having bowel movements. Laboratory Results 07/01/20 19:35: WBC 4.9, RBC 4.51, Hgb 11.7 L, Hct 39.1, MCV 86.7, MCH 25.9 L, MCHC 29.9 L, RDW Std Deviation 66.4 H, RDW Coeff of Chio 21.1 H, Plt Count 441, MPV 8.7, Immature Gran % (Auto) 2.200 H, Neut % (Auto) 50.6, Lymph % (Auto) 31.7, [place] % (Auto) 14.7 H, Eos % (Auto) 0.2, Baso % (Auto) 0.6, Absolute Neuts (auto) 2.5, Absolute Lymphs (auto) 1.55, Nucleated RBC % 0, Differential Comment SCANNED 07/01/20 19:35: Sodium 136, Potassium 3.7, Chloride 99, Carbon Dioxide 29.0, Anion Gap 8, BUN 17, Creatinine 0.90, Estim Creat Clear Calc 57.57, Est GFR (MDRD) Af Amer 81, Est GFR (MDRD) Non-Af 67, BUN/Creatinine Ratio 18.8, Glucose 104, Calcium 9.0, Total Bilirubin 0.30, AST 45 H, ALT 31, Alkaline Phosphatase 143 H, Total Protein 7.4, Albumin 3.0 L, Globulin 4.4 H, Albumin/Globulin Ratio 0.7 L, Lipase 30 L Assessment/Plan All Active Problems (Last Updated 06/26/20 @ 11:19 by Noemi Gentile) Partial small bowel obstruction (Acute) Shingles (Acute) Pneumonia (Acute) Left breast mass (Acute) Patient will be admitted on the medical service. I do not think an NG tube is needed at this time I think IV hydration and bowel rest will hopefully allow this to resolve. I have discussed this with her oncology physician. So that he is aware. Dr. Cruz will make rounds on her tomorrow. Office Visits / Consults: [id number] IP Consult L3
[2020-07-01 23:11] VITALS: BP 176/96; PULSE 98; RESP 16; TEMP 36.8; O2SAT 94
[2020-07-01] MEDS: Ondansetron 4 MG/2 ML Vial IM (23:23)
[2020-07-01 23:48] VITALS: BP 153/83; PULSE 87; RESP 16; TEMP 36.9; O2SAT 94
[2020-07-01 23:55] VITALS: BMI 28.8
[2020-07-02 00:09] VITALS: BMI 28.8
[2020-07-02] MEDS: HYDROmorphone 0.5 MG/0.5 ML SYRINGE IV ×3 (00:57→07:35)
[2020-07-02] MEDS: proCHLORPERazine 10 MG/2 ML Vial 5 MG IV (01:20)
[2020-07-02 04:20] VITALS: BP 144/73; PULSE 96; RESP 18; TEMP 36.6; O2SAT 97
--- NOTE | 2020-07-02 06:20 | PN.SURG_ITS ---
Patient Problems: Active and Suspected Problems (Last Reviewed 07/02/20 @ 03:[address] Gus Banerjee MD) Partial small bowel obstruction (Acute) Metastatic cancer (Acute) Subjective: Patient thinks she may be slightly less distended. She has a burning sensation in the upper abdomen. No flatus. No stool. She remains uncomfortable and nauseated. - Physical Exam Vitals/I&O's: Vital Signs Temp Pulse Resp BP Pulse Ox 97.8 F 96 18 144/73 H 97 07/02/20 04:20 07/02/20 04:20 07/02/20 04:20 07/02/20 04:20 07/02/20 04:20 Oxygen Delivery Method Room Air Weight: 167 lb 15.876 oz Body Mass Index (BMI) 28.8 Intake and Output for Last 24 Hours 06/30/20 07/01/20 07/02/20 23:59 23:59 23:59 Intake Total 500 / 500 263.07 / 263.07 Output Total 500 / 500 Balance 500 / 500 -236.93 / -236.93 Lungs: - - Clear apices Abdomen: Bowel Sounds Not Present, Distended, - - Not focally tender Laboratory Results 07/01/20 19:35: WBC 4.9, RBC 4.51, Hgb 11.7 L, Hct 39.1, MCV 86.7, MCH 25.9 L, MCHC 29.9 L, RDW Std Deviation 66.4 H, RDW Coeff of Chio 21.1 H, Plt Count 441, MPV 8.7, Immature Gran % (Auto) 2.200 H, Neut % (Auto) 50.6, Lymph % (Auto) 31.7, [place] % (Auto) 14.7 H, Eos % (Auto) 0.2, Baso % (Auto) 0.6, Absolute Neuts (auto) 2.5, Absolute Lymphs (auto) 1.55, Nucleated RBC % 0, Differential Comment SCANNED 07/01/20 19:35: Sodium 136, Potassium 3.7, Chloride 99, Carbon Dioxide 29.0, Anion Gap 8, BUN 17, Creatinine 0.90, Estim Creat Clear Calc 57.57, Est GFR (MDRD) Af Amer 81, Est GFR (MDRD) Non-Af 67, BUN/Creatinine Ratio 18.8, Glucose 104, Calcium 9.0, Total Bilirubin 0.30, AST 45 H, ALT 31, Alkaline Phosphatase 143 H, Total Protein 7.4, Albumin 3.0 L, Globulin 4.4 H, Albumin/Globulin Ratio 0.7 L, Lipase 30 L Current Medications Dexamethasone Sodium Phosphate (Decadron) 1 mg IV DAILY [facility] Diphenhydramine HCl (Benadryl) 25 mg IV Q6H PRN PRN PRN Reason: ITCHING Enoxaparin Sodium (Lovenox) 40 mg SC DAILY [facility] Hydralazine HCl (Apresoline Iv) 5 mg IV Q4H PRN PRN PRN Reason: SBP > 160 Hydromorphone HCl (Dilaudid Inj) 0.5 mg IV Q3H PRN PRN PRN Reason: pain 5-08/07 Last Admin: 07/02/20 04:12 Dose: 0.5 mg Documented by: Potassium Chloride/Sodium Chloride () 1,000 mls @ 100 mls/hr IV .Q10H [facility] Last Infusion: 07/02/20 01:51 Dose: 100 mls/hr Documented by: Acyclovir Sodium 570 mg/ (Dextrose) 261.4 mls @ 261.4 mls/hr IV Q8 [place] Last Infusion: 07/02/20 01:51 Dose: Infused Documented by: Pantoprazole Sodium 40 mg/ (Sodium Chloride) 110 mls @ 330 mls/hr IV Q24 [facility] Ondansetron HCl (Zofran) 4 mg IV Q8H PRN PRN PRN Reason: NAUSEA/VOMITING Prochlorperazine Edisylate (Compazine Iv) 5 mg IV Q6H PRN PRN PRN Reason: NAUSEA/VOMITING Last Admin: 07/02/20 01:20 Dose: 5 mg Documented by: Sodium Chloride () 10 - 40 ml IV UD PRN PRN Reason: SALINE FLUSH Medical Necessity - Tobacco Use Smoking Status: Former smoker Assessment/Plan All Active Problems (Last Reviewed 07/02/20 @ 03:[address] Gus Banerjee MD) Partial small bowel obstruction (Acute) Metastatic cancer (Acute) Shingles (Acute) Findings appear to me to be more consistent with a high-grade small bowel obstruction secondary to extensive pelvic metastatic disease. I recommend that an NG tube be placed. I have discussed her care with Dr. Rafat Greenfield and Dr. Omar Gross. At this time I am not anticipating that there will be a surgical resolution to this process. The patient is aware. She would like to be more comfortable. Was we will see if the NG tube provide some decompression and comfort. Dr. Gross will see the patient to see if additional options exist. She is aware that palliative care treatment may be the next course. Homero Cruz M.D., F.A.C.S.
--- NOTE | 2020-07-02 06:46 | RAD_ITS ---
STUDY: X-RAY - ABDOMEN/PELVIS REASON FOR EXAM: Female, 65 years old. NG PLACEMENT TECHNIQUE: COMPARISON: None. FINDINGS: The tip of the NG tube is in the distal body of the stomach. There are dilated loops of the small intestine with a non-distended colon consistent with a small bowel obstruction. The visualized liver, spleen and kidneys are grossly normal in size and morphology. Normal soft tissue structures. Normal visualized osseous structures. RAD/Abdomen Single View IMPRESSION: The distal tip of the nasogastric tube is in the distal portion of the body of the stomach. Small bowel obstruction. Electronically Signed: Shahbaz Munguia, at 9:14 EDT , Service support ,
[2020-07-02 07:30] LABS: Anion Gap 6 (5-15); BUN 16 mg/dL (7-18); Calcium,Total 8.7 mg/dL (8.5-10.1); Chloride 99 mmol/L (98-107); Creatinine, Serum 0.84 mg/dL (0.55-1.02); EST Glomerular Filtration Rate 73 mL/min (>60); Est Glom Filt Rate - Afr Amer 88 mL/min (>60); Glucose 93 mg/dL (74-106); Magnesium 1.9 mg/dL (1.6-2.6); Potassium 3.6 mmol/L (3.5-5.1); Sodium Level 136 mmol/L (136-145)
[2020-07-02] MEDS: Ondansetron 4 MG/2 ML Vial IV ×2 (07:35→18:32)
--- NOTE | 2020-07-02 09:03 | NURSING ---
This nurse called Radiology to see why KUB not read yet. They were going to look into it and find out.
[2020-07-02] MEDS: Enoxaparin 40 MG/0.4 ML Syringe SC (10:14)
[2020-07-02] MEDS: HYDROmorphone 0.5 MG/0.5 ML SYRINGE 1 MG IV (10:15)
[2020-07-02 10:20] VITALS: BP 135/74; PULSE 91; RESP 18; TEMP 36.3; O2SAT 97
--- NOTE | 2020-07-02 10:35 | PCM.PROGNOTE ---
Patient Problems: Active and Suspected Problems (Last Reviewed 07/02/20 @ 03:[address] Gus Banerjee MD) Metastatic ovarian cancer (Acute) High-grade small bowel obstruction (Acute) Subjective: Chief complaint: Follow-up after addition for high-grade small bowel obstruction. Patient seen and examined. No acute events overnight. She is still complaining of diffuse abdominal pain, sharp pain but has been improving. She has no more nausea or vomiting. No stool or flatus. Her vital signs are stable. - Physical Exam Vitals/I&O's: Vital Signs Temp Pulse Resp BP Pulse Ox 97.8 F 96 18 144/73 H 97 07/02/20 04:20 07/02/20 04:20 07/02/20 04:20 07/02/20 04:20 07/02/20 04:20 Oxygen Delivery Method Room Air Weight: 167 lb 15.876 oz Body Mass Index (BMI) 28.8 Intake and Output for Last 24 Hours 06/30/20 07/01/20 07/02/20 23:59 23:59 23:59 Intake Total 500 / 500 1036.14 / 1036.14 Output Total 600 / 600 Balance 500 / 500 436.14 / 436.14 General: Alert, Oriented x3, Cooperative, No apparent distress HEENT: Atraumatic, PERRLA, EOMI, Normocephalic Oral: Moist Mucosa, No Gingival or Mucosal Lesions/ Ulcerations Neck: Supple, No JVD, Negative Carotid Bruits, Trachea Midline, Thyroid Normal Size and Texture Lungs: Clear to auscultation, Normal air movement, No rhonchi, No wheeze, No rales, Diminished Cardiovascular: Regular rate, Regular Rhythm, Normal S1, Normal S2, PMI Normal Abdomen: Bowel Sounds Present, Soft, No Hepato-splenomegaly, Distended, Tender - Minimal tenderness. Extremities: No clubbing, No cyanosis, No edema Skin: No rashes, No breakdown Lymphatic: No Cervical, Supraclavicular, or Inguinal Adenopathy Neurological: Cranial nerves II-XII grossly intact, Neuro grossly intact Psych/Mental Status: Normal Affect, Appropriate, Alert and oriented to time, place, person, mood and affect Laboratory Results 07/01/20 19:35: WBC 4.9, RBC 4.51, Hgb 11.7 L, Hct 39.1, MCV 86.7, MCH 25.9 L, MCHC 29.9 L, RDW Std Deviation 66.4 H, RDW Coeff of [place] 21.1 H, Plt Count 441, MPV 8.7, Immature Gran % (Auto) 2.200 H, Neut % (Auto) 50.6, Lymph % (Auto) 31.7, [place] % (Auto) 14.7 H, Eos % (Auto) 0.2, Baso % (Auto) 0.6, Absolute Neuts (auto) 2.5, Absolute Lymphs (auto) 1.55, Nucleated RBC % 0, Differential Comment SCANNED 07/01/20 19:35: Sodium 136, Potassium 3.7, Chloride 99, Carbon Dioxide 29.0, Anion Gap 8, BUN 17, Creatinine 0.90, Estim Creat Clear Calc 57.57, Est GFR (MDRD) Af Amer 81, Est GFR (MDRD) Non-Af 67, BUN/Creatinine Ratio 18.8, Glucose 104, Calcium 9.0, Total Bilirubin 0.30, AST 45 H, ALT 31, Alkaline Phosphatase 143 H, Total Protein 7.4, Albumin 3.0 L, Globulin 4.4 H, Albumin/Globulin Ratio 0.7 L, Lipase 30 L 07/02/20 06:51: Sodium 136, Potassium 3.6, Chloride 99, Carbon Dioxide 31.0, Anion Gap 6, BUN 16, Creatinine 0.84, Estim Creat Clear Calc 59.20, Est GFR (MDRD) Af Amer 88, Est GFR (MDRD) Non-Af 73, BUN/Creatinine Ratio 19.0, Glucose 93, Calcium 8.7, Magnesium 1.9 Clinical Impression(s) from Imaging Studies Abdomen/Pelvis CT 07/01/20 20:47 IMPRESSION: Small amount of ascites. Increased size and number of seeding and masses of the upper abdomen in the fatty tissues of the mesentery, omentum recesses around the liver, spleen and stomach. Distended small bowel with thickening and matting of small bowel loops in the pelvis where there is probably a transition zone in the deep pelvis consistent with high-grade small bowel obstruction. The colon is nondistended. Otherwise unremarkable liver, spleen and pancreas. Status post cholecystectomy with moderate compensatory dilatation of the bile ducts not changed from prior exam. Normal size of the kidneys without hydronephrosis. Nondistended urinary bladder. Electronically Signed: Ila Salinas MD at 21:25 EDT , Service support , ADDENDUM: 07/01/202218 IMPRESSION: Small amount of ascites. Increased size and number of seeding and masses of the upper abdomen in the fatty tissues of the mesentery, omentum recesses around the liver, spleen and stomach. Distended small bowel with thickening and matting of small bowel loops in the pelvis where there is probably a transition zone in the deep pelvis consistent with high-grade small bowel obstruction. The colon is nondistended. Otherwise unremarkable liver, spleen and pancreas. Status post cholecystectomy with moderate compensatory dilatation of the bile ducts not changed from prior exam. Normal size of the kidneys without hydronephrosis. Nondistended urinary bladder. N.B. : The above information has been verbally conveyed by Ila Salinas MD to Jayjay Wheat DO, on 07/01/2020 22:12:03 (ET). Electronically Signed: Ila Salinas MD at 21:25 EDT , Service support , KUB X-Ray 07/02/20 06:46 IMPRESSION: The distal tip of the nasogastric tube is in the distal portion of the body of the stomach. Small bowel obstruction. Electronically Signed: Shahbaz Munguia, at 9:14 EDT , Service support , Current Medications Dexamethasone Sodium Phosphate (Decadron) 2 mg IV Q8 [facility] Diphenhydramine HCl (Benadryl) 25 mg IV Q6H PRN PRN PRN Reason: ITCHING Enoxaparin Sodium (Lovenox) 40 mg SC DAILY [facility] Last Admin: 07/02/20 10:14 Dose: 40 mg Documented by: Hydralazine HCl (Apresoline Iv) 5 mg IV Q4H PRN PRN PRN Reason: SBP > 160 Hydromorphone HCl (Dilaudid Inj) 1 mg IV Q3H PRN PRN PRN Reason: pain 5-10/10 Last Admin: 07/02/20 10:15 Dose: 1 mg Documented by: Potassium Chloride/Sodium Chloride () 1,000 mls @ 100 mls/hr IV .Q10H [facility] Last Infusion: 07/02/20 06:58 Dose: 0 mls/hr Documented by: Acyclovir Sodium 570 mg/ (Dextrose) 261.4 mls @ 261.4 mls/hr IV Q8 [facility] Last Infusion: 07/02/20 08:00 Dose: Infused Documented by: Pantoprazole Sodium 40 mg/ (Sodium Chloride) 110 mls @ 330 mls/hr IV Q24 [facility] Last Admin: 07/02/20 09:46 Dose: 330 mls/hr Documented by: Ondansetron HCl (Zofran) 4 mg IV Q8H PRN PRN PRN Reason: NAUSEA/VOMITING Last Admin: 07/02/20 07:35 Dose: 4 mg Documented by: Prochlorperazine Edisylate (Compazine Iv) 5 mg IV Q6H PRN PRN PRN Reason: NAUSEA/VOMITING Last Admin: 07/02/20 01:20 Dose: 5 mg Documented by: Sodium Chloride () 10 - 40 ml IV UD PRN PRN Reason: SALINE FLUSH Medical Necessity - Tobacco Use Smoking Status: Former smoker Assessment/Plan All Active Problems (Last Reviewed 07/02/20 @ 03:[address] Gus Banerjee MD) Metastatic ovarian cancer (Acute) High-grade small bowel obstruction (Acute) Shingles (Acute) This is a 65 years old female patient presented to the emergency room because of abdominal pain and distention with nausea and vomiting and she was found to have high-grade small bowel obstruction. #1 high-grade small bowel obstruction: In the setting of metastatic ovarian cancer which is likely progressing in addition to history of multiple abdominal surgeries. CT scan abdomen and pelvis with contrast reviewed. Patient is on IV fluids, n.p.o., NG tube inserted this morning. She is on IV Dilaudid and IV antiemetics. She reported some improvement of her symptoms, less distended, no bowel movement or flatus. General surgery on the case. Serum electrolytes are within normal limits. Routine blood work reviewed. Plan: Increase IV Dilaudid to 1 mg every 3 hours, increase IV Decadron which may help decrease the inflammation of the bowel due to metastasis, conservative treatment according to surgery. #5 recurrent metastatic ovarian cancer: Status post total abdominal hysterectomy and bilateral salpingo-oophorectomy, chemotherapy, currently on immunotherapy. Apparently, her disease and metastasis progressing, getting worse. Patient has been following up with Dr. Morgan as outpatient. #3 recent history of shingles: She is on IV acyclovir, patient was on p.o. acyclovir as outpatient but she cannot tolerate p.o. #4 hypertension: Blood pressure stable, she is on IV hydralazine PRN. Norvasc on hold. #5 DVT prophylaxis: Subcu Lovenox. This note was generated with [employer] dictation software. It may contain incorrect words, spelling, and punctuation that were not noted in checking the note before signing. Inpatient E&M: 37965 Subs Hosp L2
--- NOTE | 2020-07-02 10:38 | CASEMGMT ---
Addendum entered by Joanne Esparza 07/02/20 11:05: Green sheet on chart. Original Note: Social Work Note SW updated that pt may be a good candidate for Palliative. SW completed Palliative Care screening tool, pt scored 4, consider Palliative Care Consult. SW met with pt. SW introduced self and role at [facility]. Pt is alert and orientated. Pt states that she knows about Palliative Care and states a referral has already been started for her. Pt states that a referral was sent to [facility]. CATHERINE placed a call to [facility] and spoke with Josephine. Josephine confirms pt is active with Palliative. Josephine requests clinicals be faxed and once pt is discharged to fax discharge instructions/summary to [facility]. CATHERINE faxed clinicals to [facility]. Joanne Esparza TELEGRAPH SERVICE RATER, [employer] MECH[employer]IC
--- NOTE | 2020-07-02 10:45 | CASEMGMT ---
RN JOEL Face to Face with patient for initial transition planning/care coordination assessment. RN CM introduced self and role at [facility]. Patient lying in bed, alert and oriented, at bedside. Patient willing to participate in assessment and is able to answer all questions appropriately. Care providers, pharmacy, and demographics verified. Patient wishes to discharge home, denies need for home health at this time. Patient states she has no further needs or concerns at this time. CM to follow for discharge planning needs that may arise. PCP: Ginny Specialists:surgeon Nancy Preferred Pharmacy: [facility] retail Insurance: [facility] HMO Prescription Benefit: yes Living Will/HPOA: yes, Brady Del Toro LNOK: Living Arrangements: Patient lives with in a ranch style home with 2 steps and railing to enter the home. Patient states she is independent at home. Transportation: self, DME/HHC: Patient states she has grab bars at home. Denies further DME or HHC. Disposition Plan: Patient to discharge home with family support and follow-up plans in place. Joanne TEJADA, RN, CM
--- NOTE | 2020-07-02 11:59 | NURSING ---
Dr. Cruz called for an update. Update given.
[2020-07-02] MEDS: dexAMETHasone 4 MG/ML Vial 2 MG IV ×2 (12:55→22:48)
[2020-07-02] MEDS: DiphenhydrAMINE 50 MG/ML Syringe 25 MG IV (13:59)
[2020-07-02] MEDS: 0.9% Saline Lock 10 ML Syringe IV ×5 (14:09→23:06)
[2020-07-02 15:00] VITALS: BP 133/61; PULSE 80; RESP 16; TEMP 36.7; O2SAT 97
--- NOTE | 2020-07-02 15:23 | RAD_ITS ---
CLINICAL HISTORY: Female, 65 years old. Small bowel obstruction. PROCEDURE: Small bowel follow-through. CONSENT: Unknown SEDATION: Unknown FLUOROSCOPY TIME (if supplied): (Not supplied) minutes/seconds TECHNIQUE: (All elements of maximal sterile barrier technique followed, including US elements as applicable) Multiple sequential images of small bowel follow-through at 45 minutes, 2 hours, 4 hours, 6 hours and 12 hours are obtained. There is demonstrated central dilated small bowel loops with contrast demonstrating filling with extension to the colon and rectal vault. NG tube tip overlies the distal stomach region. RAD/Small Bowel Series Only IMPRESSION: Small bowel follow-through demonstrating contrast extending to the colon with central dilated small bowel loops consistent with likely component of ileus versus partial SBO given contrast reaching the large bowel and distal rectum. 4 further definitive characterization post contrast CT exam may be obtained to determine degree of colonic contrast. Electronically Signed: Cornelius Miramontes DO at 10:50 EDT , Service support ,
--- NOTE | 2020-07-02 15:33 | NURSING ---
pt to x ray via bed
[2020-07-02] MEDS: Morphine 4 MG/ML Syringe IV ×3 (15:41→23:06)
--- NOTE | 2020-07-02 16:05 | NURSING ---
Off the floor at this time. NG clamped and IV locked.
--- NOTE | 2020-07-02 18:48 | NURSING ---
Painful and nauseated. Walking around ferrer prior to Morphine and Zofran given. NG unclamped as pt is waiting for radiology to come back to take pictures for small bowel series.
--- NOTE | 2020-07-02 20:30 | NURSING ---
suction wasn't working in room 312. Moved pt to room 315.
[2020-07-02 21:45] VITALS: BP 166/78; PULSE 97; RESP 16; TEMP 36.6; O2SAT 96
--- NOTE | 2020-07-02 21:52 | NURSING ---
bp is 166/78. pt refusing iv hydralazine at this time. pt reporting pain 6 out of 10. denies needing pain meds at this time. pt states she knows she needs to walk. unhooked ng from wall suction-pt to walk in the ferrer. pt reports walking 8 times in the ferrer today.
[2020-07-02 22:56] VITALS: BP 159/78; PULSE 97
[2020-07-03] VITALS (7 sets, daily range): BP systolic 151–168; BP diastolic 83–94; PULSE 88–99; RESP 16–18; TEMP 36.5–36.9; O2SAT 95–98
--- NOTE | 2020-07-03 05:03 | NURSING ---
pt was up and walked a full lap in the ferrer. rates pain 1 out of 10.
[2020-07-03] MEDS: 0.9% Saline Lock 10 ML Syringe IV ×3 (06:48→16:04)
[2020-07-03] MEDS: dexAMETHasone 4 MG/ML Vial 2 MG IV ×3 (06:51→20:58)
--- NOTE | 2020-07-03 07:28 | PN.SURG_ITS ---
Patient Problems: Active and Suspected Problems (Last Reviewed 07/02/20 @ 03:[address] Gus Banerjee MD) Metastatic ovarian cancer (Acute) High-grade small bowel obstruction (Acute) Subjective: Patient is feeling more comfortable today. She had very minimal flatus yesterday. Nothing overnight. No stool yet. It has become apparent that the reason why the NG tube was not putting out any return was because the suction device to which she was connected was malfunctioning. This now makes infinite sense for an NG tube placed for small bowel obstruction had essentially 0 return. - Physical Exam Vitals/I&O's: Vital Signs Temp Pulse Resp BP Pulse Ox 97.9 F 91 16 153/88 H 95 07/03/20 04:48 07/03/20 04:48 07/03/20 04:48 07/03/20 04:48 07/03/20 04:48 Oxygen Delivery Method Room Air Weight: 167 lb 15.876 oz Body Mass Index (BMI) 28.8 Intake and Output for Last 24 Hours 07/01/20 07/02/20 07/03/20 23:59 23:59 23:59 Intake Total 500 / 500 3015.61 / 3015.61 798.07 / 798.07 Output Total 2775 / 2775 650 / 650 Balance 500 / 500 240.61 / 240.61 148.07 / 148.07 Abdomen: - - Slightly softer, distended, nontender, bowel sounds present Laboratory Results 07/02/20 06:51: Sodium 136, Potassium 3.6, Chloride 99, Carbon Dioxide 31.0, Anion Gap 6, BUN 16, Creatinine 0.84, Estim Creat Clear Calc 59.20, Est GFR (MDRD) Af Amer 88, Est GFR (MDRD) Non-Af 73, BUN/Creatinine Ratio 19.0, Glucose 93, Calcium 8.7, Magnesium 1.9 07/03/20 07:08: WBC Pending, RBC Pending, Hgb Pending, Hct Pending, MCV Pending, MCH Pending, MCHC Pending, RDW Std Deviation Pending, RDW Coeff of [place] Pending, Plt Count Pending, Neut % (Auto) Pending, Absolute Neuts (auto) Pending 07/03/20 07:08: Sodium Pending, Potassium Pending, Chloride Pending, Carbon Dioxide Pending, Anion Gap Pending, BUN Pending, Creatinine Pending, Est GFR (MDRD) Af Amer Pending, Est GFR (MDRD) Non-Af Pending, BUN/Creatinine Ratio Pending, Glucose Pending, Calcium Pending, Total Bilirubin Pending, AST Pending, ALT Pending, Alkaline Phosphatase Pending, Total Protein Pending, Albumin Pending Current Medications Dexamethasone Sodium Phosphate (Decadron) 2 mg IV Q8 [facility] Last Admin: 07/03/20 06:51 Dose: 2 mg Documented by: Diphenhydramine HCl (Benadryl) 25 mg IV Q6H PRN PRN PRN Reason: ITCHING Last Admin: 07/02/20 13:59 Dose: 25 mg Documented by: Enoxaparin Sodium (Lovenox) 40 mg SC DAILY [facility] Last Admin: 07/02/20 10:14 Dose: 40 mg Documented by: Hydralazine HCl (Apresoline Iv) 5 mg IV Q4H PRN PRN PRN Reason: SBP > 160 Potassium Chloride/Sodium Chloride () 1,000 mls @ 100 mls/hr IV .Q10H [facility] Last Infusion: 07/03/20 06:14 Dose: 100 mls/hr Documented by: Acyclovir Sodium 570 mg/ (Dextrose) 261.4 mls @ 261.4 mls/hr IV Q8 [facility] Last Infusion: 07/03/20 06:14 Dose: Infused Documented by: Pantoprazole Sodium 40 mg/ (Sodium Chloride) 110 mls @ 330 mls/hr IV Q24 [facility] Last Infusion: 07/02/20 10:10 Dose: Infused Documented by: Lorazepam (Ativan) 1 mg IV QHS PRN PRN Reason: INSOMNIA Morphine Sulfate () 4 mg IV Q3H PRN PRN PRN Reason: Pain Score 1-10/10 Last Admin: 07/02/20 23:06 Dose: 4 mg Documented by: Ondansetron HCl (Zofran) 4 mg IV Q8H PRN PRN PRN Reason: NAUSEA/VOMITING Last Admin: 07/02/20 18:32 Dose: 4 mg Documented by: Prochlorperazine Edisylate (Compazine Iv) 5 mg IV Q6H PRN PRN PRN Reason: NAUSEA/VOMITING Last Admin: 07/02/20 01:20 Dose: 5 mg Documented by: Sodium Chloride () 10 - 40 ml IV UD PRN PRN Reason: SALINE FLUSH Last Admin: 07/03/20 06:48 Dose: 10 ml Documented by: Zolpidem Tartrate (Ambien (Generic)) 5 mg PO QHS PRN PRN PRN Reason: INSOMNIA Medical Necessity - Tobacco Use Smoking Status: Former smoker Assessment/Plan All Active Problems (Last Reviewed 07/02/20 @ 03:[address] Gus Banerjee MD) Metastatic ovarian cancer (Acute) High-grade small bowel obstruction (Acute) Shingles (Acute) I believe that this patient has extensive tumor burden causing extrinsic compression of likely multiple loops of small bowel. The patient was to initiate Keytruda at the time of her admission but has not been able to yet. My personal hope is that her NG tube can be removed and she can be initiated on a liquid diet and discharged on a liquid diet then being given a chance to start the Keytruda with then hope that it can diminish some of her tumor burden. I have concern that the degree of small bowel thickening suggests extensive involvement and that if she is resumed on regular food that she likely will in short order re-obstruct I have expressed these concerns to her. Current decision is to keep the NG tube to suction. She is feeling much improved. The tip is in the duodenum facilitating decompression. When she starts to pass flatus or stool then I would recommend removing the NG tube and starting a liquid diet with nutritional supplements. As noted above I personally would hesitate to advance to a regular diet. She has had an opportunity to ask and have questions answered. I personally am not anticipating surgical intervention. I do not believe that this will f acilitate her care and that if she fails to resolve her obstruction then hospice may be the better alternative I believe that the Gastrografin study which now by my view was reached the ascending colon hopefully will facilitate resolution of some of her inspissated succus entericus and facilitate at least short-term improvement in her bowel obstruction Homero Cruz M.D., F.A.C.S.
[2020-07-03 07:44] LABS: ALB/GLOB Ratio 0.7 RATIO (0.9-2.4); AST(SGOT) 33 U/L (15-37); Alanine Aminotransfer ALT/SGPT 29 U/L (13-56); Albumin, Serum 2.8 g/dL (3.2-5.0); Alkaline Phosphatase 133 U/L (45-117); Anion Gap 6 (5-15); BUN 13 mg/dL (7-18); BUN/Creat Ratio 18.1 RATIO (10-20); Calcium,Total 8.8 mg/dL (8.5-10.1); Chloride 100 mmol/L (98-107); Creatinine, Serum 0.72 mg/dL (0.55-1.02); EST Glomerular Filtration Rate 87 mL/min (>60); Est Glom Filt Rate - Afr Amer 105 mL/min (>60); Estimated Creatinine Clearance 69.06 ml/min; Globulin 4.1 g/dL (2.2-4.2); Glucose 94 mg/dL (74-106); Potassium 4.3 mmol/L (3.5-5.1); Protein, Total 6.9 g/dL (6.4-8.2); Sodium Level 135 mmol/L (136-145)
[2020-07-03 08:19] LABS: Absolute Lymphocyte Count 1.07 X10^3/uL (0.83-4.51); Absolute Neutrophil Count 3.8 X10^3/uL (2.0-7.7); Basophil# 0.01 X10^3/uL; Basophil% 0.2 % (0-1); Hematocrit 34.3 % (37-47); Hemoglobin 10.1 g/dL (12.0-15.0); Lymphocyte # 1.07 X10^3/ul (4.0); Lymphocyte % 19.8 % (19-41); Mean Corp Hgb Conc 29.4 g/dL (32-36); Mean Corpuscular Volume 88.4 fL (81-99); Mean Platelet Vol. 8.9 fl (6.2-12.0); Monocyte# 0.53 X10^3/uL; Monocyte% 9.8 % (0-10); NRBC Flagged by Analyzer 0 % (0-5); Neutrophil # 3.75 X10^3/uL (2.7-7.7); Neutrophil % 69.5 % (47-70); POSITIVE MORPHOLOGY YES; Platelet Count 469 K/mm3 (150-450); RBC Distribution Width CV 21.3 % (11.6-14.6); Red Blood Count 3.88 M/mm3 (4.2-5.4); White Blood Count 5.4 K/mm3 (4.4-11.0)
--- NOTE | 2020-07-03 08:35 | PCM.PROGNOTE ---
Patient Problems: Active and Suspected Problems (Last Reviewed 07/02/20 @ 03:[address] Gus Banerjee MD) Metastatic ovarian cancer (Acute) High-grade small bowel obstruction (Acute) Subjective: Chief complaint: Follow-up after admission for high-grade small bowel obstruction. Patient seen and examined. No acute events overnight. Today, she is feeling better. Abdominal pain significantly improved, no more nausea or vomiting. She passed minimal flatus yesterday, no bowel movement. All over, she is feeling better. Her vital signs are stable. - Physical Exam Vitals/I&O's: Vital Signs Temp Pulse Resp BP Pulse Ox 97.9 F 91 16 153/88 H 95 07/03/20 04:48 07/03/20 04:48 07/03/20 04:48 07/03/20 04:48 07/03/20 04:48 Oxygen Delivery Method Room Air Weight: 167 lb 15.876 oz Body Mass Index (BMI) 28.8 Intake and Output for Last 24 Hours 07/01/20 07/02/20 07/03/20 23:59 23:59 23:59 Intake Total 500 / 500 3015.61 / 3015.61 858.07 / 858.07 Output Total 2775 / 2775 650 / 650 Balance 500 / 500 240.61 / 240.61 208.07 / 208.07 General: Alert, Oriented x3, Cooperative, No apparent distress HEENT: Atraumatic, PERRLA, EOMI, Normocephalic Oral: Moist Mucosa, No Gingival or Mucosal Lesions/ Ulcerations Neck: Supple, No JVD, Negative Carotid Bruits, Trachea Midline, Thyroid Normal Size and Texture Lungs: Clear to auscultation, Normal air movement, No rhonchi, No wheeze, No rales Cardiovascular: Regular rate, Regular Rhythm, Normal S1, Normal S2, PMI Normal Abdomen: Soft, Non Tender, No Hepato-splenomegaly, Hypoactive Bowel Sounds, Distended Extremities: No clubbing, No cyanosis, No edema Skin: No rashes, No breakdown Lymphatic: No Cervical, Supraclavicular, or Inguinal Adenopathy Neurological: Cranial nerves II-XII grossly intact, Neuro grossly intact Psych/Mental Status: Normal Affect, Appropriate, Alert and oriented to time, place, person, mood and affect Laboratory Results 07/03/20 07:08: WBC Pending, RBC Pending, Hgb Pending, Hct Pending, MCV Pending, MCH Pending, MCHC Pending, RDW Std Deviation Pending, RDW Coeff of [place] Pending, Plt Count Pending, Neut % (Auto) Pending, Absolute Neuts (auto) Pending 07/03/20 07:08: Sodium 135 L, Potassium 4.3, Chloride 100, Carbon Dioxide 29.0, Anion Gap 6, BUN 13, Creatinine 0.72, Estim Creat Clear Calc 69.06, Est GFR (MDRD) Af Amer 105, Est GFR (MDRD) Non-Af 87, BUN/Creatinine Ratio 18.1, Glucose 94, Calcium 8.8, Total Bilirubin 0.40, AST 33, ALT 29, Alkaline Phosphatase 133 H, Total Protein 6.9, Albumin 2.8 L, Globulin 4.1, Albumin/Globulin Ratio 0.7 L Current Medications Dexamethasone Sodium Phosphate (Decadron) 2 mg IV Q8 [facility] Last Admin: 07/03/20 06:51 Dose: 2 mg Documented by: Diphenhydramine HCl (Benadryl) 25 mg IV Q6H PRN PRN PRN Reason: ITCHING Last Admin: 07/02/20 13:59 Dose: 25 mg Documented by: Enoxaparin Sodium (Lovenox) 40 mg SC DAILY [facility] Last Admin: 07/02/20 10:14 Dose: 40 mg Documented by: Hydralazine HCl (Apresoline Iv) 5 mg IV Q4H PRN PRN PRN Reason: SBP > 160 Potassium Chloride/Sodium Chloride () 1,000 mls @ 100 mls/hr IV .Q10H [facility] Last Infusion: 07/03/20 06:14 Dose: 100 mls/hr Documented by: Acyclovir Sodium 570 mg/ (Dextrose) 261.4 mls @ 261.4 mls/hr IV Q8 [facility] Last Infusion: 07/03/20 06:14 Dose: Infused Documented by: Pantoprazole Sodium 40 mg/ (Sodium Chloride) 110 mls @ 330 mls/hr IV Q24 [facility] Last Infusion: 07/02/20 10:10 Dose: Infused Documented by: Lorazepam (Ativan) 1 mg IV QHS PRN PRN Reason: INSOMNIA Morphine Sulfate () 4 mg IV Q3H PRN PRN PRN Reason: Pain Score 1-10/10 Last Admin: 07/02/20 23:06 Dose: 4 mg Documented by: Ondansetron HCl (Zofran) 4 mg IV Q8H PRN PRN PRN Reason: NAUSEA/VOMITING Last Admin: 07/02/20 18:32 Dose: 4 mg Documented by: Prochlorperazine Edisylate (Compazine Iv) 5 mg IV Q6H PRN PRN PRN Reason: NAUSEA/VOMITING Last Admin: 07/02/20 01:20 Dose: 5 mg Documented by: Sodium Chloride () 10 - 40 ml IV UD PRN PRN Reason: SALINE FLUSH Last Admin: 07/03/20 06:48 Dose: 10 ml Documented by: Zolpidem Tartrate (Ambien (Generic)) 5 mg PO QHS PRN PRN PRN Reason: INSOMNIA Medical Necessity - Tobacco Use Smoking Status: Former smoker Assessment/Plan All Active Problems (Last Reviewed 07/02/20 @ 03:[address] Gus Banerjee MD) Metastatic ovarian cancer (Acute) High-grade small bowel obstruction (Acute) Shingles (Acute) This is a 65 years old female patient presented to the emergency room because of abdominal pain and distention with nausea and vomiting and she was found to have high-grade small bowel obstruction. #1 high-grade small bowel obstruction: She is on n.p.o., NG tube suction, IV fluids, IV antiemetics and IV pain medications. Symptoms has been improving, had minimal flatus yesterday, no bowel movement. CBC from today is pending. BMP reviewed, serum electrolytes are within normal limits. LFT was unremarkable. She does have metastatic ovarian cancer which is likely progressing in addition to history of multiple abdominal surgeries. CT scan abdomen and pelvis with contrast reviewed. General surgery on the case. Gastrografin study reviewed. Plan: Ambulate, plan to remove NG tube and start liquid diet if patient started passing flatus. #5 recurrent metastatic ovarian cancer: Status post total abdominal hysterectomy and bilateral salpingo-oophorectomy, chemotherapy, currently on immunotherapy. Apparently, her disease and metastasis progressing, getting worse. Patient has been following up with Dr. Morgan as outpatient. #3 recent history of shingles: She is on IV acyclovir, patient was on p.o. acyclovir as outpatient but she cannot tolerate p.o. today, is her last day of the acyclovir, this will be discontinued. #4 hypertension: Blood pressure stable, she is on IV hydralazine PRN. Norvasc on hold. #5 DVT prophylaxis: Subcu Lovenox. This note was generated with [employer] dictation software. It may contain incorrect words, spelling, and punctuation that were not noted in checking the note before signing. Inpatient E&M: 31176 Subs Hosp L2
[2020-07-03 08:37] LABS: Differential Indicated SCAN CRITERIA MET
[2020-07-03 09:34] LABS: Platelet Estimate SLT INC (ADEQ)
[2020-07-03 09:35] LABS: Anisocytosis 1+; Hypochromasia RARE; Macrocytosis RARE; Polychromasia RARE
[2020-07-03] MEDS: Enoxaparin 40 MG/0.4 ML Syringe SC (10:21)
[2020-07-03] MEDS: BENZOCAINE/MENTHOL 1 LOZENGE MUCOUS MEM ×2 (10:24→12:43)
[2020-07-03] MEDS: hydrALAZINE 20 MG/ML Vial 5 MG IV ×2 (11:07→18:36)
[2020-07-03] MEDS: Zolpidem Tartrate 5 MG Tablet PO (21:02)
[2020-07-03] MEDS: proCHLORPERazine 10 MG/2 ML Vial 5 MG IV (21:43)
[2020-07-03] MEDS: LORazepam 2 MG/ML Syringe 1 MG IV (23:49)
[2020-07-03] MEDS: Ondansetron 4 MG/2 ML Vial IV (23:50)
[2020-07-04 05:00] VITALS: BP 183/88; PULSE 96; RESP 18; TEMP 36.8; O2SAT 97
[2020-07-04] MEDS: dexAMETHasone 4 MG/ML Vial 2 MG IV ×3 (06:36→21:07)
[2020-07-04] MEDS: proCHLORPERazine 10 MG/2 ML Vial 5 MG IV ×3 (06:44→20:45)
[2020-07-04 06:56] VITALS: BP 188/90; PULSE 80
[2020-07-04] MEDS: hydrALAZINE 20 MG/ML Vial 5 MG IV ×2 (06:56→21:02)
--- NOTE | 2020-07-04 07:57 | PCM.PROGNOTE ---
Patient Problems: Active and Suspected Problems (Last Reviewed 07/02/20 @ 03:[address] Gus Banerjee MD) Metastatic ovarian cancer (Acute) High-grade small bowel obstruction (Acute) Subjective: Chief complaint: Follow-up after admission for high-grade small bowel obstruction. Patient seen and examined. No acute events overnight. Last night, she had episodes of nausea with minimal vomiting. This morning, she continued to have nausea. She has no more abdominal pain, has been passing gas and had multiple bowel movements overnight. Her blood pressure is elevated, other vital signs are stable. - Physical Exam Vitals/I&O's: Vital Signs Temp Pulse Resp BP Pulse Ox 98.3 F 80 18 188/90 H 97 07/04/20 05:00 07/04/20 06:56 07/04/20 05:00 07/04/20 06:56 07/04/20 05:00 Oxygen Delivery Method Room Air Weight: 167 lb 15.876 oz Body Mass Index (BMI) 28.8 Intake and Output for Last 24 Hours 07/02/20 07/03/20 07/04/20 23:59 23:59 23:59 Intake Total 3015.61 / 3015.61 2549.73 / 2699.73 1111.67 / 1111.67 Output Total 2775 / 2775 1625 / 2355 790 / 790 Balance 240.61 / 240.61 924.73 / 344.73 321.67 / 321.67 General: Alert, Oriented x3, Cooperative, No apparent distress HEENT: Atraumatic, PERRLA, EOMI, Normocephalic Oral: Moist Mucosa, No Gingival or Mucosal Lesions/ Ulcerations Neck: Supple, No JVD, Negative Carotid Bruits, Trachea Midline, Thyroid Normal Size and Texture Lungs: Clear to auscultation, Normal air movement, No rhonchi, No wheeze, No rales, Diminished Cardiovascular: Regular rate, Regular Rhythm, Normal S1, Normal S2, PMI Normal Abdomen: Bowel Sounds Present, Soft, Non Tender, No Hepato-splenomegaly, Distended Extremities: No clubbing, No cyanosis, No edema Skin: No rashes, No breakdown Lymphatic: No Cervical, Supraclavicular, or Inguinal Adenopathy Neurological: Cranial nerves II-XII grossly intact, Neuro grossly intact Psych/Mental Status: Normal Affect, Appropriate, Alert and oriented to time, place, person, mood and affect Laboratory Results 07/03/20 07:08: WBC 5.4, RBC 3.88 L, Hgb 10.1 L, Hct 34.3 L, MCV 88.4, MCH 26.0 L, MCHC 29.4 L, RDW Std Deviation 69.0 H, RDW Coeff of [place] 21.3 H, Plt Count 469 H, MPV 8.9, Immature Gran % (Auto) 0.700, Neut % (Auto) 69.5, Lymph % (Auto) 19.8, [place] % (Auto) 9.8, Eos % (Auto) 0.0, Baso % (Auto) 0.2, Absolute Neuts (auto) 3.8, Absolute Lymphs (auto) 1.07, Nucleated RBC % 0, Platelet Estimate SLT INC, Polychromasia RARE, Hypochromasia RARE, Anisocytosis 1+, Macrocytosis RARE Current Medications Dexamethasone Sodium Phosphate (Decadron) 2 mg IV Q8 [facility] Last Admin: 07/04/20 06:36 Dose: 2 mg Documented by: Diphenhydramine HCl (Benadryl) 25 mg IV Q6H PRN PRN PRN Reason: ITCHING Last Admin: 07/02/20 13:59 Dose: 25 mg Documented by: Enoxaparin Sodium (Lovenox) 40 mg SC DAILY [facility] Last Admin: 07/03/20 10:21 Dose: 40 mg Documented by: Hydralazine HCl (Apresoline Iv) 5 mg IV Q4H PRN PRN PRN Reason: SBP > 160 Last Admin: 07/04/20 06:56 Dose: 5 mg Documented by: Potassium Chloride/Sodium Chloride () 1,000 mls @ 100 mls/hr IV .Q10H [facility] Last Admin: 07/04/20 06:35 Dose: 100 mls/hr Documented by: Pantoprazole Sodium 40 mg/ (Sodium Chloride) 110 mls @ 330 mls/hr IV Q24 [facility] Last Infusion: 07/03/20 11:26 Dose: Infused Documented by: Lorazepam (Ativan) 1 mg IV QHS PRN PRN Reason: INSOMNIA Last Admin: 07/03/20 23:49 Dose: 1 mg Documented by: Morphine Sulfate () 4 mg IV Q3H PRN PRN PRN Reason: Pain Score 1-10/10 Last Admin: 07/02/20 23:06 Dose: 4 mg Documented by: Ondansetron HCl (Zofran) 4 mg IV Q8H PRN PRN PRN Reason: NAUSEA/VOMITING Last Admin: 07/03/20 23:50 Dose: 4 mg Documented by: Prochlorperazine Edisylate (Compazine Iv) 5 mg IV Q6H PRN PRN PRN Reason: NAUSEA/VOMITING Last Admin: 07/04/20 06:44 Dose: 5 mg Documented by: Sodium Chloride () 10 - 40 ml IV UD PRN PRN Reason: SALINE FLUSH Last Admin: 07/03/20 16:04 Dose: 10 ml Documented by: Throat Lozenges (Cepacol Sore Throat Lozenge) 1 lozenge MUCOUS MEM Q2H PRN PRN PRN Reason: SORE THROAT Last Admin: 07/03/20 12:43 Dose: 1 lozenge Documented by: Zolpidem Tartrate (Ambien (Generic)) 5 mg PO QHS PRN PRN PRN Reason: INSOMNIA Last Admin: 07/03/20 21:02 Dose: 5 mg Documented by: Medical Necessity - Tobacco Use Smoking Status: Former smoker Assessment/Plan All Active Problems (Last Reviewed 07/02/20 @ 03:[address] Gus Banerjee MD) Metastatic ovarian cancer (Acute) High-grade small bowel obstruction (Acute) Shingles (Acute) This is a 65 years old female patient presented to the emergency room because of abdominal pain and distention with nausea and vomiting and she was found to have high-grade small bowel obstruction. #1 high-grade small bowel obstruction: She is on IV fluids, IV pain medications and IV antiemetics. She started having bowel movements and passing flatus, nauseated. Abdominal pain significantly improved and almost gone. NG tube taken out yesterday evening. LFT was unremarkable. She does have metastatic ovarian cancer which is likely progressing in addition to history of multiple abdominal surgeries. CT scan abdomen and pelvis with contrast reviewed. General surgery on the case. Plan: Start IV Phenergan PRN for pain, ambulate. #5 recurrent metastatic ovarian cancer: Status post total abdominal hysterectomy and bilateral salpingo-oophorectomy, chemotherapy, currently on immunotherapy. Apparently, her disease and metastasis progressing, getting worse. Patient has been following up with Dr. Morgan as outpatient. #3 recent history of shingles: She completed treatment with acyclovir for 1 week. #4 hypertension: Blood pressure elevated, unlikely because of her symptoms., she is on IV hydralazine PRN. Norvasc on hold. #5 DVT prophylaxis: Subcu Lovenox. This note was generated with [email or web address] dictation software. It may contain incorrect words, spelling, and punctuation that were not noted in checking the note before signing. Inpatient E&M: 50915 Subs Hosp L2
--- NOTE | 2020-07-04 08:14 | PN.SURG_ITS ---
Patient Problems: Active and Suspected Problems (Last Reviewed 07/02/20 @ 03:[address] Gus Banerjee MD) Metastatic ovarian cancer (Acute) High-grade small bowel obstruction (Acute) Subjective: The patient reports she had dry heaving with minimal vomiting this morning. She is not having much abdominal pain. She is still passing gas and liquid bowel movements. - Physical Exam Vitals/I&O's: Vital Signs Temp Pulse Resp BP Pulse Ox 98.3 F 80 18 188/90 H 97 07/04/20 05:00 07/04/20 06:56 07/04/20 05:00 07/04/20 06:56 07/04/20 05:00 Oxygen Delivery Method Room Air Weight: 167 lb 15.876 oz Body Mass Index (BMI) 28.8 Intake and Output for Last 24 Hours 07/02/20 07/03/20 07/04/20 23:59 23:59 23:59 Intake Total 3015.61 / 3015.61 2549.73 / 2699.73 1111.67 / 1111.67 Output Total 2775 / 2775 1625 / 2355 790 / 790 Balance 240.61 / 240.61 924.73 / 344.73 321.67 / 321.67 General: Alert, Oriented x3 Lungs: Normal air movement Cardiovascular: Regular rate, Regular Rhythm Abdomen: Soft, Non Tender, Non-Distended Laboratory Results 07/03/20 07:08: WBC 5.4, RBC 3.88 L, Hgb 10.1 L, Hct 34.3 L, MCV 88.4, MCH 26.0 L, MCHC 29.4 L, RDW Std Deviation 69.0 H, RDW Coeff of [place] 21.3 H, Plt Count 469 H, MPV 8.9, Immature Gran % (Auto) 0.700, Neut % (Auto) 69.5, Lymph % (Auto) 19.8, [place] % (Auto) 9.8, Eos % (Auto) 0.0, Baso % (Auto) 0.2, Absolute Neuts (auto) 3.8, Absolute Lymphs (auto) 1.07, Nucleated RBC % 0, Platelet Estimate SLT INC, Polychromasia RARE, Hypochromasia RARE, Anisocytosis 1+, Macrocytosis RARE Current Medications Dexamethasone Sodium Phosphate (Decadron) 2 mg IV Q8 [facility] Last Admin: 07/04/20 06:36 Dose: 2 mg Documented by: Diphenhydramine HCl (Benadryl) 25 mg IV Q6H PRN PRN PRN Reason: ITCHING Last Admin: 07/02/20 13:59 Dose: 25 mg Documented by: Enoxaparin Sodium (Lovenox) 40 mg SC DAILY [facility] Last Admin: 07/03/20 10:21 Dose: 40 mg Documented by: Hydralazine HCl (Apresoline Iv) 5 mg IV Q4H PRN PRN PRN Reason: SBP > 160 Last Admin: 07/04/20 06:56 Dose: 5 mg Documented by: Potassium Chloride/Sodium Chloride () 1,000 mls @ 100 mls/hr IV .Q10H [facility] Last Admin: 07/04/20 06:35 Dose: 100 mls/hr Documented by: Pantoprazole Sodium 40 mg/ (Sodium Chloride) 110 mls @ 330 mls/hr IV Q24 [facility] Last Infusion: 07/03/20 11:26 Dose: Infused Documented by: Lorazepam (Ativan) 1 mg IV QHS PRN PRN Reason: INSOMNIA Last Admin: 07/03/20 23:49 Dose: 1 mg Documented by: Morphine Sulfate () 4 mg IV Q3H PRN PRN PRN Reason: Pain Score 1-10/10 Last Admin: 07/02/20 23:06 Dose: 4 mg Documented by: Ondansetron HCl (Zofran) 4 mg IV Q8H PRN PRN PRN Reason: NAUSEA/VOMITING Last Admin: 07/03/20 23:50 Dose: 4 mg Documented by: Prochlorperazine Edisylate (Compazine Iv) 5 mg IV Q6H PRN PRN PRN Reason: NAUSEA/VOMITING Last Admin: 07/04/20 06:44 Dose: 5 mg Documented by: Promethazine HCl (Phenergan) 6.25 mg IV Q6H PRN PRN PRN Reason: NAUSEA/VOMITING Sodium Chloride () 10 - 40 ml IV UD PRN PRN Reason: SALINE FLUSH Last Admin: 07/03/20 16:04 Dose: 10 ml Documented by: Throat Lozenges (Cepacol Sore Throat Lozenge) 1 lozenge MUCOUS MEM Q2H PRN PRN PRN Reason: SORE THROAT Last Admin: 07/03/20 12:43 Dose: 1 lozenge Documented by: Zolpidem Tartrate (Ambien (Generic)) 5 mg PO QHS PRN PRN PRN Reason: INSOMNIA Last Admin: 07/03/20 21:02 Dose: 5 mg Documented by: Medical Necessity - Tobacco Use Smoking Status: Former smoker Assessment/Plan All Active Problems (Last Reviewed 07/02/20 @ 03:[address] Gus Banerjee MD) Metastatic ovarian cancer (Acute) High-grade small bowel obstruction (Acute) Shingles (Acute) 65-year-old female with partial small bowel obstruction due to metastatic ovarian cancer 1. The patient reports that she had some dry heaving but no actual vomiting other than some minimal mucus. The patient has nondistended and soft. She is passing gas and liquid. I recommend continuing taking clears slowly and I have added Phenergan. I do not believe an NG would be of much use that she is not producing much vomit right now. Her abdomen is soft and nondistended. Tong Evans MD Pager: [facility] [address] [place] [address], [address] [place] [address] Office:
[2020-07-04] MEDS: proMETHazine 25 MG/ML Syringe 6.25 MG IV (09:07)
[2020-07-04] MEDS: Enoxaparin 40 MG/0.4 ML Syringe SC (09:12)
[2020-07-04 09:14] VITALS: BP 150/90; PULSE 96; RESP 16; TEMP 36.7; O2SAT 96
[2020-07-04] MEDS: 0.9% Saline Lock 10 ML Syringe IV ×2 (11:23→14:44)
[2020-07-04] MEDS: Ondansetron 4 MG/2 ML Vial IV ×2 (11:23→23:06)
--- NOTE | 2020-07-04 11:50 | NURSING ---
Patient ambulated around unit and sat in chair. Spoke with Dr. Ramos regarding patient's persistent nausea. Stated that I have her phenergan with little to no relief. Just gave her zofran and awaiting effects. He deferred to Dr. Evans. Spoke with him and he states an NGT may help but the patient was not wanting that reinserted at this time. Went back to discuss with patient and she was sleeping in bed. Will check on her later and find out how she is feeling.
--- NOTE | 2020-07-04 13:35 | NURSING ---
Pt continues to be asleep in bed. Will cont. to monitor.
--- NOTE | 2020-07-04 14:30 | NURSING ---
Patient states she would like to continue to monitor nausea at this time. States she would like a dose of compazine. Would not like to pursue ngt.
--- NOTE | 2020-07-04 14:52 | NURSING ---
Offered QueaseEASE to patient and she states she will try it. Gave her one and will monitor.
[2020-07-04 14:54] VITALS: BP 154/101; PULSE 100; RESP 18; TEMP 36.7; O2SAT 99
--- NOTE | 2020-07-04 15:03 | NURSING ---
Walking in halls with her .
--- NOTE | 2020-07-04 17:43 | NURSING ---
Ambulated in halls with her .
[2020-07-04] MEDS: proMETHazine 25 MG/ML Syringe 12.5 MG IV (18:36)
[2020-07-04 20:56] VITALS: BP 169/99; PULSE 87; RESP 16; TEMP 36.6; O2SAT 99
[2020-07-04 21:02] VITALS: BP 169/99; PULSE 87
[2020-07-04] MEDS: Zolpidem Tartrate 5 MG Tablet PO (23:03)
[2020-07-05] VITALS (9 sets, daily range): BP systolic 147–171; BP diastolic 84–122; PULSE 93–108; RESP 16–98; TEMP 36.5–37.1; O2SAT 97–100
[2020-07-05] MEDS: proMETHazine 25 MG/ML Syringe 12.5 MG IV ×3 (02:51→23:53)
--- NOTE | 2020-07-05 03:14 | EKG12_ITS ---
Test Reason : DYSRHYTHMIA Blood Pressure : / mmHG Vent. Rate : 093 BPM Atrial Rate : 093 BPM P-R Int : 132 ms QRS Dur : 086 ms QT Int : 384 ms P-R-T Axes : 060 008 041 degrees QTc Int : 477 ms Normal sinus rhythm Normal ECG When compared with ECG of 17-JUN-2015 07:37, No significant change was found Confirmed by TI SUE, NEELAM ([id number]), pictures editor NARDA DELCID ([id number]) on 07/09/2020 1:39:57 PM Referred By: FABIANO Confirmed By:SLAVA LUKE MD
[2020-07-05] MEDS: hydrALAZINE 20 MG/ML Vial 5 MG IV ×2 (03:51→09:21)
[2020-07-05] MEDS: 0.9% Saline Lock 10 ML Syringe IV ×4 (03:55→09:22)
[2020-07-05] MEDS: dexAMETHasone 4 MG/ML Vial 2 MG IV ×3 (06:13→21:46)
[2020-07-05] MEDS: proCHLORPERazine 10 MG/2 ML Vial 5 MG IV ×2 (06:15→14:58)
--- NOTE | 2020-07-05 08:45 | PCM.PN.BLA ---
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 The last 7 years, she had multiple courses of chemotherapy & recently Avastin on 06/01/2020. She saw Dr. Fried, [employer] oncologist recommended Pembolizumab/Niraparib as an off label immunotherapy therapy option since she is not eligible for clinical trial or chemotherapy. She presented with progressively worsening nonradiating abdominal pain and subsequently developed partial small bowel obstruction. CT abdomen/ pelvis showed diffuse metastatic mental and peritoneal metastasis and small bowel obstruction. Since her hospitalization, she had bowel movement and passed gas and currently on a clear liquid diet. She still has nausea but her abdominal pain was much improved. Past Medical History Past Medical History (Chronic Problems): Chronic Problems (Last Reviewed 07/02/20 @ 00:[address] Gus Banerjee MD) Left breast mass (Chronic) imaging ordered Medical History: Medical History (Last Reviewed 07/02/20 @ 03:[address] 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 Hypertension I10 Allergies acetaminophen [From Percocet] Adverse Reaction (Verified 07/01/20 18:24) Itching codeine Adverse Reaction (Verified 07/01/20 18:24) Itching hydrocodone bitartrate [From Vicodin] Adverse Reaction (Verified 07/01/20 18:24) Itching oxycodone [From Percocet] Adverse Reaction (Verified 07/01/20 18:24) Itching tramadol HCl [From Ultram] Adverse Reaction (Verified 07/01/20 18:24) Itching Home Medications: Ambulatory Orders Medication Instructions Recorded Gabapentin [Neurontin] 300 mg PO QHS 03/26/14 Magnesium Oxide [Mag-Ox 400] 400 mg PO BID 07/06/17 Olanzapine [Zyprexa] 10 mg PO QHS PRN PRN 11/15/17 Verapamil HCl [Verapamil ER] 240 mg PO QHS 05/21/18 Amlodipine [Norvasc] 5 mg PO DAILY 11/22/18 Dexamethasone 1 mg PO DAILY 05/09/20 Dexamethasone [Decadron] 8 mg PO PRN PRN 05/09/20 Folic Acid 1 mg PO DAILY 05/09/20 valacyclovir 1 gram tablet 1,000 mg PO TID #21 tab 06/26/20 Surgical History: Surgical History (Last Reviewed 07/02/20 @ 03:[address] Gus Banerjee MD) H/O: knee surgery Z98.890 History of appendectomy Z90.49 History of foot surgery Z98.890 S/P LORI (total abdominal hysterectomy) Z90.710 Smoking Status: Former smoker - *Family History Maternal Family History: Family History (Last Reviewed 07/02/20 @ 03:[address] Gus Banerjee MD) Mother Breast cancer Review of Systems Constitutional: Denies: Chills, Fever, Weight Change HEENT: Denies: Head Aches, Sinus Congestion, Sinus Drainage Cardiovascular: Denies: Chest Pain, Palpitations Respiratory: Denies: Cough, Shortness of breath at rest, Sputum production Gastrointestinal: Reports: Abdominal Pain, Nausea. Denies: Vomiting Genitourinary: Denies: Dysuria Musculoskeletal: Reports: Back Pain. Denies: Joint Pain, Joint Tenderness Skin: Denies: Rash, Wounds Neurological: Denies: Numbness, Tingling, Focal weakness Psychiatric: Denies: Anxiety, Depression, Homicidal Ideations, Suicidal Ideations Hematologic/ Lymphatic: Denies: Easy Bruising, Easy Bleeding Partial small bowel obstruction (Acute) Metastatic cancer (Acute) - Physical Exam Vitals/I&O's: Last Vital Signs Temp 98.3 F 07/05/20 06:22 Pulse 93 07/05/20 06:22 Resp 16 07/05/20 06:22 BP 170/105 H 07/05/20 06:22 Pulse Ox 97 07/05/20 06:22 Oxygen Delivery Method Room Air Weight: 75.75 kg Body Mass Index (BMI) 27.8 General: Alert, Oriented x3, Cooperative HEENT: Atraumatic, PERRLA, EOMI, Normocephalic Neck: Supple, No JVD, Negative Carotid Bruits Lungs: Clear to auscultation, Normal air movement Cardiovascular: Regular rate, Regular Rhythm, Normal S1, Normal S2, No murmurs Abdomen: Active bowel Sounds Present, Soft, Non Tender Extremities: No edema, Capillary Refill Less than 3 Seconds Skin: No rashes, No breakdown, - - Erythematous scratch lines Musculoskeletal: No Tenderness to Palpation of Joints or Extremities Neurological: Cranial nerves II-XII grossly intact Psych/Mental Status: Normal Affect, Appropriate Laboratory Results Assessment/Plan All Active Problems (Last Reviewed 07/02/20 @ 00:[address] 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 She presented with partial small bowel obstruction, and intractable nausea. Overall, her symptoms improved, and she is on a clear liquid diet. Moderate hypertension may be exacerbated by Avastin. Plan: -Advance diet as tolerated to full liquid -Continue dexamethasone 2mg TID & Zofran and Compazine or Phenergan as needed for nausea -Outpatient palliative care consult -Awaiting approval for her palliative immunotherapy & Niraparib treatment with her insurance. -Follow-up with Dr. Gross next week. cc; Dr. Amelia Ramos, Dr. Sabino Greenfield, Dr. Omar Gross STROKE Vital Signs/Narrative: Vital Signs Temp Pulse Resp BP Pulse Ox 07/05/20 06:22 98.3 F 93 16 170/105 H 97
[2020-07-05] MEDS: BENZOCAINE/MENTHOL 1 LOZENGE MUCOUS MEM (09:30)
[2020-07-05] MEDS: Enoxaparin 40 MG/0.4 ML Syringe SC (09:33)
[2020-07-05] MEDS: amLODIPine 5 MG Tablet PO (09:34)
[2020-07-05] MEDS: OLANZapine 10 MG Tablet 5 MG PO ×2 (09:48→21:46)
--- NOTE | 2020-07-05 09:59 | PCM.PROGNOTE ---
Subjective: Chief complaint: Follow-up after admission for high-grade small bowel obstruction. Patient seen and examined. No acute events overnight. This morning, he is feeling better, nausea improved but still minimal. No more abdominal pain. Still having loose bowel movements and passing gas. Apart from slightly elevated blood pressure, other vital signs are stable. - Physical Exam Vitals/I&O's: Vital Signs Temp Pulse Resp BP Pulse Ox 97.9 F 108 H 18 171/91 H 99 07/05/20 09:09 07/05/20 09:21 07/05/20 09:09 07/05/20 09:21 07/05/20 09:09 Oxygen Delivery Method Room Air Weight: 167 lb 15.876 oz Body Mass Index (BMI) 28.8 Intake and Output for Last 24 Hours 07/03/20 07/04/20 07/05/20 23:59 23:59 23:59 Intake Total 2549.73 / 2699.73 2716.67 / 2766.67 1100 / 1100 Output Total 1625 / 2355 2890 / 3090 200 / 200 Balance 924.73 / 344.73 -173.33 / -323.33 900 / 900 General: Alert, Oriented x3, Cooperative, No apparent distress HEENT: Atraumatic, PERRLA, EOMI, Normocephalic Oral: Moist Mucosa, No Gingival or Mucosal Lesions/ Ulcerations Neck: Supple, No JVD, Negative Carotid Bruits, Trachea Midline, Thyroid Normal Size and Texture Lungs: Clear to auscultation, Normal air movement, No rhonchi, No wheeze, No rales, Diminished Cardiovascular: Regular rate, Regular Rhythm, Normal S1, Normal S2, PMI Normal Abdomen: Bowel Sounds Present, Soft, No Hepato-splenomegaly, Distended Extremities: No clubbing, No cyanosis, No edema Skin: No rashes, No breakdown Lymphatic: No Cervical, Supraclavicular, or Inguinal Adenopathy Neurological: Cranial nerves II-XII grossly intact, Neuro grossly intact Psych/Mental Status: Normal Affect, Appropriate, Alert and oriented to time, place, person, mood and affect Current Medications Amlodipine Besylate (Norvasc) 5 mg PO DAILY [facility] Last Admin: 07/05/20 09:34 Dose: 5 mg Documented by: Dexamethasone Sodium Phosphate (Decadron) 2 mg IV Q8 [facility] Last Admin: 07/05/20 06:13 Dose: 2 mg Documented by: Diphenhydramine HCl (Benadryl) 25 mg IV Q6H PRN PRN PRN Reason: ITCHING Last Admin: 07/02/20 13:59 Dose: 25 mg Documented by: Enoxaparin Sodium (Lovenox) 40 mg SC DAILY [facility] Last Admin: 07/05/20 09:33 Dose: 40 mg Documented by: [facility] Gabapentin (Neurontin) 300 mg PO QHS [facility] Hydralazine HCl (Apresoline Iv) 5 mg IV Q4H PRN PRN PRN Reason: SBP > 160 Last Admin: 07/05/20 09:21 Dose: 5 mg Documented by: Potassium Chloride/Sodium Chloride () 1,000 mls @ 100 mls/hr IV .Q10H [facility] Last Admin: 07/05/20 03:40 Dose: 100 mls/hr Documented by: Pantoprazole Sodium 40 mg/ (Sodium Chloride) 110 mls @ 330 mls/hr IV Q24 [facility] Last Admin: 07/05/20 09:49 Dose: 330 mls/hr Documented by: Lorazepam (Ativan) 1 mg IV QHS PRN PRN Reason: INSOMNIA Last Admin: 07/03/20 23:49 Dose: 1 mg Documented by: Magnesium Oxide (Mag-Ox 400) 400 mg PO BID [facility] Morphine Sulfate () 4 mg IV Q3H PRN PRN PRN Reason: Pain Score 1-10/10 Last Admin: 07/02/20 23:06 Dose: 4 mg Documented by: Olanzapine (Zyprexa) 5 mg PO BID PRN PRN PRN Reason: NAUSEA Last Admin: 07/05/20 09:48 Dose: 5 mg Documented by: Ondansetron HCl (Zofran) 4 mg IV Q8H PRN PRN PRN Reason: NAUSEA/VOMITING Last Admin: 07/04/20 23:06 Dose: 4 mg Documented by: Prochlorperazine Edisylate (Compazine Iv) 5 mg IV Q6H PRN PRN PRN Reason: NAUSEA/VOMITING Last Admin: 07/05/20 06:15 Dose: 5 mg Documented by: Promethazine HCl (Phenergan) 12.5 mg IV Q6H PRN PRN PRN Reason: NAUSEA/VOMITING Last Admin: 07/05/20 09:21 Dose: 12.5 mg Documented by: Sodium Chloride () 10 - 40 ml IV UD PRN PRN Reason: SALINE FLUSH Last Admin: 07/05/20 09:22 Dose: 30 ml Documented by: Throat Lozenges (Cepacol Sore Throat Lozenge) 1 lozenge MUCOUS MEM Q2H PRN PRN PRN Reason: SORE THROAT Last Admin: 07/05/20 09:30 Dose: 1 lozenge Documented by: Verapamil HCl (Calan Sr) 240 mg PO QHS [facility] Zolpidem Tartrate (Ambien (Generic)) 5 mg PO QHS PRN PRN PRN Reason: INSOMNIA Last Admin: 07/04/20 23:03 Dose: 5 mg Documented by: Medical Necessity - Tobacco Use Smoking Status: Former smoker Assessment/Plan All Active Problems (Last Reviewed 07/02/20 @ 03:[address] Gus Banerjee MD) Metastatic ovarian cancer (Acute) High-grade small bowel obstruction (Acute) Shingles (Acute) This is a 65 years old female patient presented to the emergency room because of abdominal pain and distention with nausea and vomiting and she was found to have high-grade small bowel obstruction. #1 high-grade small bowel obstruction: Remained on IV fluids, IV pain medications and IV antiemetics as well as IV Decadron. Currently, she is on clear liquids. No more pain, has been passing flatus, having loose bowel movements. Nausea is improving. She does have metastatic ovarian cancer which is likely progressing in addition to history of multiple abdominal surgeries. CT scan abdomen and pelvis with contrast reviewed. General surgery on the case. Plan: Advance diet to full liquid diet, possible DC home either later today or tomorrow morning. #5 recurrent metastatic ovarian cancer: Status post total abdominal hysterectomy and bilateral salpingo-oophorectomy, chemotherapy, currently on immunotherapy. Apparently, her disease and metastasis progressing, getting worse. Patient has been following up with Dr. Morgan as outpatient. Oncology recommended palliative care as outpatient. #3 recent history of shingles: She completed treatment with acyclovir for 1 week. #4 hypertension: Blood pressure elevated. She is on IV hydralazine PRN. Plan to resume Norvasc and verapamil today. #5 DVT prophylaxis: Subcu Lovenox. This note was generated with [employer] software. It may contain incorrect words, spelling, and punctuation that were not noted in checking the note before signing. Inpatient E&M: 01797 Subs Hosp L2
[2020-07-05] MEDS: 0.9% Normal Saline 1,000 ML 75 ML IV ×2 (10:18→21:45)
[2020-07-05] MEDS: Magnesium Oxide 400 MG Tablet PO ×2 (10:19→21:46)
--- NOTE | 2020-07-05 13:02 | DCINST_ITS ---
You will use the following diet at home:: Full liquid Discharge Activity: Return to Normal Activity Weight Bearing Status: Weight bearing as tolerated Call your doctor if you observe: Fever of 101 or Higher, Shortness of breath, Dizziness, Fainting spells, Chest pain, Increased palpitations (irregular heartbeat), Uncontrolled pain Allergies/Adverse Reactions: Allergies acetaminophen [From Percocet] Adverse Reaction (Verified 07/01/20 23:55) Itching codeine Adverse Reaction (Verified 07/01/20 23:55) Itching hydrocodone bitartrate [From Vicodin] Adverse Reaction (Verified 07/01/20 23:55) Itching oxycodone [From Percocet] Adverse Reaction (Verified 07/01/20 23:55) Itching tramadol HCl [From Ultram] Adverse Reaction (Verified 07/01/20 23:55) Itching Medications to take at Discharge Gabapentin [Neurontin] 300 mg PO QHS 03/26/14 Magnesium Oxide [Mag-Ox 400] 400 mg PO BID 07/06/17 Olanzapine [Zyprexa] 5 mg PO BID PRN PRN 11/15/17 Verapamil HCl [Verapamil ER] 240 mg PO QHS 05/21/18 Amlodipine [Norvasc] 5 mg PO DAILY 11/22/18 Dexamethasone 1 mg PO DAILY 05/09/20 Dexamethasone [Decadron] 8 mg PO PRN PRN 05/09/20 Folic Acid 1 mg PO DAILY 05/09/20 valacyclovir 1 gram tablet 1,000 mg PO TID #21 tab 06/26/20 Zolpidem Tartrate [Ambien] 5 mg PO QHS PRN PRN 07/02/20 proCHLORPERazine tablet [Compazine tablet] 5 mg PO TID PRN PRN #20 tab 07/05/20 The following prescriptions were given: proCHLORPERazine tablet [Compazine tablet] 5 mg PO TID PRN PRN #20 tab PRN Reason: Nausea/Emesis Prescription Printed Primary Care Physician: Omar Gross DO [Primary Care Provider] - Please follow up with your Primary Care Physician in: next week. please call his office. Test Results: Test results from this visit will be discussed in further detail at your follow- up appointment, if applicable.
[2020-07-05] MEDS: Ondansetron 4 MG/2 ML Vial IV (18:14)
[2020-07-05] MEDS: Verapamil SR 240 MG Tablet PO (18:26)
[2020-07-05] MEDS: Morphine 4 MG/ML Syringe IV (21:47)
[2020-07-05] MEDS: Zolpidem Tartrate 5 MG Tablet PO (23:53)
[2020-07-06 03:54] VITALS: BP 118/76; PULSE 98; RESP 18; TEMP 36.8; O2SAT 96
[2020-07-06] MEDS: dexAMETHasone 4 MG/ML Vial 2 MG IV (06:13)
[2020-07-06] MEDS: Ondansetron 4 MG/2 ML Vial IV (06:13)
--- NOTE | 2020-07-06 06:15 | PCM.PN.SRG ---
Subjective: Notes that her abdominal pain left very soon after she was first administered the Gastrografin material on Sunday to assist with a small bowel follow-through. The small bowel follow-through demonstrates findings consistent with a partial obstruction. Contrast did make it through to the colon. Since that time she has had some flatus and intermittent diarrhea. She states initially the diarrhea was somewhat dark but now was more green. She has been troubled by intermittent nausea. She denies any cramping. She has not been having any reflux. She is to resume her chemotherapy today at 1045 as an outpatient with Dr. Omar Gross. She is not sure whether she will make that appointment time. - Physical Exam Vitals/I&O's: Vital Signs Temp Pulse Resp BP Pulse Ox 98.3 F 98 18 118/76 96 07/06/20 03:54 07/06/20 03:54 07/06/20 03:54 07/06/20 03:54 07/06/20 03:54 Oxygen Delivery Method Room Air Weight: 167 lb 15.876 oz Body Mass Index (BMI) 28.8 Intake and Output for Last 24 Hours 07/04/20 07/05/20 07/06/20 23:59 23:59 23:59 Intake Total 2716.67 / 2766.67 4077.08 / 4077.08 Output Total 2890 / 3090 1300 / 1300 Balance -173.33 / -323.33 2777.08 / 2777.08 Current Medications Amlodipine Besylate (Norvasc) 5 mg PO DAILY [facility] Last Admin: 07/05/20 09:34 Dose: 5 mg Documented by: Dexamethasone Sodium Phosphate (Decadron) 2 mg IV Q8 [facility] Last Admin: 07/06/20 06:13 Dose: 2 mg Documented by: Diphenhydramine HCl (Benadryl) 25 mg IV Q6H PRN PRN PRN Reason: ITCHING Last Admin: 07/02/20 13:59 Dose: 25 mg Documented by: Enoxaparin Sodium (Lovenox) 40 mg SC DAILY [facility] Last Admin: 07/05/20 09:33 Dose: 40 mg Documented by: [facility]olic [facility] ([facility] Acid) [facility] Gabapentin (Neurontin) 300 mg PO QHS [facility] Last Admin: 07/05/20 21:47 Dose: Not Given Documented by: Hydralazine HCl (Apresoline Iv) 5 mg IV Q4H PRN PRN PRN Reason: SBP > 160 Last Admin: 07/05/20 09:21 Dose: 5 mg Documented by: Sodium Chloride () 1,000 mls @ 75 mls/hr IV .[id number] [facility] Last Admin: 07/05/20 21:45 Dose: 75 mls/hr Documented by: Lorazepam (Ativan) 1 mg IV QHS PRN PRN Reason: INSOMNIA Last Admin: 07/03/20 23:49 Dose: 1 mg Documented by: Magnesium Oxide (Mag-Ox 400) 400 mg PO BID [facility] Last Admin: 07/05/20 21:46 Dose: 400 mg Documented by: Morphine Sulfate () 4 mg IV Q3H PRN PRN PRN Reason: Pain Score 1-10/10 Last Admin: 07/05/20 21:47 Dose: 4 mg Documented by: Olanzapine (Zyprexa) 5 mg PO BID PRN PRN PRN Reason: NAUSEA Last Admin: 07/05/20 21:46 Dose: 5 mg Documented by: Ondansetron HCl (Zofran) 4 mg IV Q8H PRN PRN PRN Reason: NAUSEA/VOMITING Last Admin: 07/06/20 06:13 Dose: 4 mg Documented by: Pantoprazole Sodium (Protonix) 40 mg PO DAILY [facility] Prochlorperazine Edisylate (Compazine Iv) 5 mg IV Q6H PRN PRN PRN Reason: NAUSEA/VOMITING Last Admin: 07/05/20 14:58 Dose: 5 mg Documented by: Promethazine HCl (Phenergan) 12.5 mg IV Q6H PRN PRN PRN Reason: NAUSEA/VOMITING Last Admin: 07/05/20 23:53 Dose: 12.5 mg Documented by: Sodium Chloride () 10 - 40 ml IV UD PRN PRN Reason: SALINE FLUSH Last Admin: 07/05/20 09:22 Dose: 30 ml Documented by: Throat Lozenges (Cepacol Sore Throat Lozenge) 1 lozenge MUCOUS MEM Q2H PRN PRN PRN Reason: SORE THROAT Last Admin: 07/05/20 09:30 Dose: 1 lozenge Documented by: Verapamil HCl (Calan Sr) 240 mg PO QHS [facility] Last Admin: 07/05/20 18:26 Dose: 240 mg Documented by: Zolpidem Tartrate (Ambien (Generic)) 5 mg PO QHS PRN PRN PRN Reason: INSOMNIA Last Admin: 07/05/20 23:53 Dose: 5 mg Documented by: Medical Necessity - Tobacco Use Smoking Status: Former smoker Assessment/Plan All Active Problems (Last Reviewed 07/02/20 @ 03:[address] Gus Banerjee MD) Metastatic ovarian cancer (Acute) High-grade small bowel obstruction (Acute) Shingles (Acute) Ongoing medical management of metastatic ovarian cancer with persistent small bowel obstruction secondary to tumor burden. I have instructed the patient that I think discharge and outpatient treatment is reasonable. She we discharged on full liquids. She is aware that I am not perceiving a surgical salvage to the current situation. By history is apparent that her tumor has recently been progressing. At this point I am recommending ongoing oncologic care. My understanding is that there has been some discussion regarding outpatient palliative care as well. Homero Cruz M.D., F.A.C.S.
[2020-07-06 08:47] VITALS: BP 135/83; PULSE 84; RESP 16; TEMP 36.6; O2SAT 99
--- NOTE | 2020-07-06 10:25 | CASEMGMT ---
Social Work Note Pt is discharging home today. SW placed a call to [facility] and updated Josephine that pt will be discharged home today. SW faxed discharge paperwork to [facility]. 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
--- NOTE | 2020-07-06 11:31 | DS.PCM_ITS ---
Discharge Date and Diagnosis Date of Admission: 07/01/20 Date of Discharge: 07/06/20 - Primary Discharge Diagnosis Acute Problems: #1 high-grade small bowel obstruction. #2 recurrent metastatic ovarian cancer, status post surgery, currently on immunotherapy. - Secondary Discharge Diagnosis Chronic Problems: Chronic Problems (Last Reviewed 07/02/20 @ 03:[address] Gus Banerjee MD) Hypertension (Chronic) Left breast mass (Chronic) imaging ordered Hospital Course and Treatment Imaging Results: Clinical Impression(s) from Imaging Studies Abdomen/Pelvis CT 07/01/20 20:47 IMPRESSION: Small amount of ascites. Increased size and number of seeding and masses of the upper abdomen in the fatty tissues of the mesentery, omentum recesses around the liver, spleen and stomach. Distended small bowel with thickening and matting of small bowel loops in the pelvis where there is probably a transition zone in the deep pelvis consistent with high-grade small bowel obstruction. The colon is nondistended. Otherwise unremarkable liver, spleen and pancreas. Status post cholecystectomy with moderate compensatory dilatation of the bile ducts not changed from prior exam. Normal size of the kidneys without hydronephrosis. Nondistended urinary bladder. Electronically Signed: Ila Salinas MD at 21:25 EDT , Service support , ADDENDUM: 07/01/202218 IMPRESSION: Small amount of ascites. Increased size and number of seeding and masses of the upper abdomen in the fatty tissues of the mesentery, omentum recesses around the liver, spleen and stomach. Distended small bowel with thickening and matting of small bowel loops in the pelvis where there is probably a transition zone in the deep pelvis consistent with high-grade small bowel obstruction. The colon is nondistended. Otherwise unremarkable liver, spleen and pancreas. Status post cholecystectomy with moderate compensatory dilatation of the bile ducts not changed from prior exam. Normal size of the kidneys without hydronephrosis. Nondistended urinary bladder. N.B. : The above information has been verbally conveyed by Ila Salinas MD to Jayjay Wheat DO, on 07/01/2020 22:12:03 (ET). Electronically Signed: Ila Salinas MD at 21:25 EDT , Service support , KUB X-Ray 07/02/20 06:46 IMPRESSION: The distal tip of the nasogastric tube is in the distal portion of the body of the stomach. Small bowel obstruction. Electronically Signed: Shahbaz Munguia at 9:14 EDT , Service support , Small Bowel X-Ray 07/02/20 15:23 IMPRESSION: Small bowel follow-through demonstrating contrast extending to the colon with central dilated small bowel loops consistent with likely component of ileus versus partial SBO given contrast reaching the large bowel and distal rectum. 4 further definitive characterization post contrast CT exam may be obtained to determine degree of colonic contrast. Electronically Signed: Cornelius Miramontes DO at 10:50 EDT , Service support , Dr. Gross, oncology. Dr. Cruz, general surgery. Operations: None Procedures: None Summary of Care Provided: Patient seen and examined on the day of discharge and appeared to be stable to be discharged home. She has no more nausea, denies any more abdominal pain. She has been passing flatus, bowel movements. Her vital signs are stable. The patient is a 65 year old F presented to the emergency room because of abdominal pain, distention with nausea and vomiting and she was found to have high-grade small bowel obstruction. This patient has history of recurrent metastatic ovarian cancer status post total abdominal hysterectomy and bilateral salpingo-oophorectomy, was on chemotherapy and currently on immunotherapy. CT scan abdomen and pelvis with contrast revealed small amount of ascites, increased size and number of seeding and masses of the upper abdomen, mesentery, omentum, liver, spleen and stomach consistent with progression of her metastatic ovarian cancer. Also CAT scan revealed distended small bowel with wall thickening and matting of the small bowel loops in the pelvis, colon is not distended. Patient was admitted to [facility] floor and treated conservatively with IV fluids, kept on n.p.o., IV Decadron, IV antiemetics and IV pain medications. General surgery consulted and recommended to continue conservative treatment. NG tube placed along with other treatments. Her routine blood work was remarkable for chronic anemia, otherwise unremarkable. LFT and lipase were normal. Serum electrolytes were within normal limits. With above-mentioned treatment, patient symptoms improved very slowly. She was able to start passing gas and having bowel movements. She continued to have nausea which was treated with IV Zofran, Phenergan, Compazine. Her symptoms improved and on the day of discharge, she had no more symptoms, no abdominal pain, no nausea or vomiting and she has been passing gas and having bowel movements. Her vital signs are stable. Patient discharged home in a stable condition, instructed to continue full liquid diet, recommended not to advance his diet beyond full liquid diet, discharged on Compazine as needed for nausea and vomiting, started back on her previous medications including Decadron, plan to follow-up with oncology today on the day of discharge, recommended follow-up with PCP in 1 to 2 weeks. - Physical Exam Vitals/I&O's: Vital Signs Temp Pulse Resp BP Pulse Ox 97.8 F 84 16 135/83 H 99 07/06/20 08:47 07/06/20 08:47 07/06/20 08:47 07/06/20 08:47 07/06/20 08:47 Oxygen Delivery Method Room Air Weight: 167 lb 15.876 oz Body Mass Index (BMI) 28.8 Intake and Output for Last 24 Hours 07/04/20 07/05/20 07/06/20 23:59 23:59 23:59 Intake Total 2716.67 / 2766.67 4077.08 / 4077.08 842.5 / 842.5 Output Total 2890 / 3090 1300 / 1300 Balance -173.33 / -323.33 2777.08 / 2777.08 842.5 / 842.5 General: Alert, Oriented x3, Cooperative, No apparent distress HEENT: Atraumatic, PERRLA, EOMI, Normocephalic Oral: Moist Mucosa, No Gingival or Mucosal Lesions/ Ulcerations Neck: Supple, No JVD, Negative Carotid Bruits, Trachea Midline, Thyroid Normal Size and Texture Lungs: Clear to auscultation, Normal air movement, No rhonchi, No wheeze, No rales Cardiovascular: Regular rate, Regular Rhythm, Normal S1, Normal S2, PMI Normal Abdomen: Bowel Sounds Present, Soft, Non Tender, Non-Distended, No Hepato- splenomegaly Extremities: No clubbing, No cyanosis, No edema Skin: No rashes, No breakdown Lymphatic: No Cervical, Supraclavicular, or Inguinal Adenopathy Neurological: Cranial nerves II-XII grossly intact, Neuro grossly intact Psych/Mental Status: Normal Affect, Appropriate Discharge Activity: Return to Normal Activity Weight Bearing Status: Weight bearing as tolerated Call your doctor if you observe: Fever of 101 or Higher, Shortness of breath, Dizziness, Fainting spells, Chest pain, Increased palpitations (irregular heartbeat), Uncontrolled pain Home Medications: Medications to take at Discharge Gabapentin [Neurontin] 300 mg PO QHS 03/26/14 Magnesium Oxide [Mag-Ox 400] 400 mg PO BID 07/06/17 Olanzapine [Zyprexa] 5 mg PO BID PRN PRN 11/15/17 Verapamil HCl [Verapamil ER] 240 mg PO QHS 05/21/18 Amlodipine [Norvasc] 5 mg PO DAILY 11/22/18 Dexamethasone 1 mg PO DAILY 05/09/20 Dexamethasone [Decadron] 8 mg PO PRN PRN 05/09/20 Folic Acid 1 mg PO DAILY 05/09/20 valacyclovir 1 gram tablet 1,000 mg PO TID #21 tab 06/26/20 Zolpidem Tartrate [Ambien] 5 mg PO QHS PRN PRN 07/02/20 proCHLORPERazine tablet [Compazine tablet] 5 mg PO TID PRN PRN #30 tab 07/06/20 Following Prescriptions Were Given to Patient: proCHLORPERazine tablet [Compazine tablet] 5 mg PO TID PRN PRN #30 tab PRN Reason: Nausea/Vomiting Transmission Status: Received by [facility] Primary Care Physician: Omar Gross DO [Primary Care Provider] - Please follow up with your Primary Care Physician in: next week. please call his office. Please Follow Up With: Omar Saldana When: Sunday Disposition: Home Minutes spent on discharge:: 31 Patient Condition:: Stable Medical Necessity - Tobacco Use Smoking Status: Former smoker Meaningful Use Info Meaningful Use Diagnoses (Choose all that apply): None applicable Inpatient E&M: 40486 Disch Hosp
--- NOTE | 2020-07-06 11:41 | PHA.DC.MR ---
Pharmacy Service has performed discharge medication reconciliation for this patient. The patient's discharge medication list was reviewed for discrepancies and discrepancies were resolved. Home Medications Gabapentin [Neurontin] 300 mg PO QHS 03/26/14 Magnesium Oxide [Mag-Ox 400] 400 mg PO BID 07/06/17 Olanzapine [Zyprexa] 5 mg PO BID PRN PRN 11/15/17 Verapamil HCl [Verapamil ER] 240 mg PO QHS 05/21/18 Amlodipine [Norvasc] 5 mg PO DAILY 11/22/18 Dexamethasone 1 mg PO DAILY 05/09/20 Dexamethasone [Decadron] 8 mg PO PRN PRN 05/09/20 Folic Acid 1 mg PO DAILY 05/09/20 valacyclovir 1 gram tablet 1,000 mg PO TID #21 tab 06/26/20 Zolpidem Tartrate [Ambien] 5 mg PO QHS PRN PRN 07/02/20 proCHLORPERazine tablet [Compazine tablet] 5 mg PO TID PRN PRN #30 tab 07/06/20
--- NOTE | 2020-07-07 15:21 | CASEMGMT ---
TOMÁS MALDONADO Discharge Follow-up Phone Call: YEFRINani: 13 Strata: 3 Call Date: 07/07/2020 Discharge Date: 07/06/2020 Time of Call: 1520 Duration: 4 min Admitting Diagnosis: Small bowel obstruction TOMÁS MALDONADO completed follow-up phone call after recent hospitalization. Patient states she is a little weak. Patient had no questions or concerns regarding discharge instructions. Patient was able to fill prescriptions without any issues. Patient already had follow-up with Dr. Gross. Patient had no further questions or concerns at this time.
== END 2020-07-06 10:25 | disposition home or self-care (01) | DRG 389 ==
LOC: ED 19:09 → MS3 22:42
PROVIDERS: Physician Assistant; Admitting Provider Hospitalist; Emergency Provider Student in an Organized Health Care Education/Training Program; PCP Internal Medicine Hematology & Oncology; Visit Provider Hospitalist
DX: K56.690 Other partial intestinal obstruction (principal); C56.9 Malignant neoplasm of unspecified ovary; C78.7 Secondary malignant neoplasm of liver and intrahepatic bile duct; C78.6 Secondary malignant neoplasm of retroperitoneum and peritoneum; G89.3 Neoplasm related pain (acute) (chronic); N63.20 Unspecified lump in the left breast, unspecified quadrant; I10 Essential (primary) hypertension; D63.0 Anemia in neoplastic disease; B02.9 Zoster without complications; E83.42 Hypomagnesemia; Z90.710 Acquired absence of both cervix and uterus; Z90.49 Acquired absence of other specified parts of digestive tract; Z79.899 Other long term (current) drug therapy; Z87.891 Personal history of nicotine dependence; Z80.3 Family history of malignant neoplasm of breast
CPT/HCPCS: 36415; 74018; 74177; 74250; 80048; 80053; 83690; 83735; 85025; 93005; 99284; J7030; J7040; Q9967; A4216; J0610; J2405